=== PATIENT | male | born 1950 | race Caucasian/White ===

== ENCOUNTER 2023-03-23 14:09 | Outpatient (OUT) | payer MEDICARE, MEDICAID, SELFPAY ==
--- NOTE | 2023-03-23 14:35 | XR_ITS ---
The [address] [address] Patient Name: ALESSIO BURNS MRN: [id number] date: 1950 Sex: M Assigned Patient Location: LAB Current Patient Location: LAB Accession/Order Number: [id number] Exam Date: 03/23/2023 14:40 Report Date: 03/23/2023 16:11 At the request of: SHAIKH YARI Procedure: XR chest 2V EXAM: XR chest 2V HISTORY: ZHAO R06.09 ; technologist notes state shortness of breath with exertion and right-sided chest pain for 2 weeks. COMPARISON: 11/18/2021. TECHNIQUE: PA and lateral views of the chest performed. FINDINGS: Stable median sternotomy wires, mediastinal surgical clips, valve replacement and left atrial appendage clips. Mild convexity of the trachea to the right secondary to the aortic arch. Stable mild prominence of the cardiac silhouette. Stable mild atheromatous calcification at the aortic arch. Stable mild tortuous course of the descending thoracic aorta. There is stable mild to moderate elevation of the right hemidiaphragm. There are reticular and nodular infiltrates throughout both lung [place]. There is no pleural effusion or pulmonary vascular congestion. There is no pneumothorax. There is no acute osseous abnormality. XR/XR chest 2V IMPRESSION: There are reticular and nodular infiltrates throughout both lung [place]. Appropriate medical treatment and a follow-up chest radiograph to confirm complete resolution recommended. A CT examination of the chest would be recommended if clinical symptoms are discordant or if there is persistence on the follow-up chest radiograph. Electronically authenticated by: ESTHELA AMES Date: 03/23/2023 16:11
[2023-03-23 14:55] LABS: Basophils Absolute Auto 0.1 10^3/uL (0.0-0.1); Basophils Percent Auto 0.8 % (0.2-2.0); Eosinophils Absolute Auto 0.4 10^3/uL (0.0-0.7); Eosinophils Percent Auto 4.2 % (0.9-7.0); Hematocrit 41.2 % (42.0-54.0); Hemoglobin 13.5 g/dL (14.0-18.0); Immature Granulocytes Abs Auto 0.03 10^3/uL (0.00-0.03); Immature Granulocytes Pct Auto 0.3 % (0.0-0.5); Lymphocytes Absolute Auto 1.7 10^3/uL (1.2-3.8); Lymphocytes Percent Auto 18.9 % (20.5-60.0); Mean Corpuscular HGB Conc 32.8 g/dL (29.9-35.2); Mean Corpuscular Hemoglobin 29.9 pg (25.9-34.0); Mean Corpuscular Volume 91.4 fL (80.0-94.0); Mean Platelet Volume 9.2 fL (9.5-13.5); Monocytes Absolute Auto 1.2 10^3/uL (0.3-0.8); Monocytes Percent Auto 13.8 % (1.7-12.0); Neutrophils Absolute Auto 5.5 10^3/uL (1.4-6.5); Platelet Count 259 10^3/uL (150-450); Red Blood Count 4.51 10^6/uL (4.70-6.10); Red Cell Distribution Width 13.4 % (11.0-15.0); White Blood Count 8.9 10^3/uL (4.0-11.0)
[2023-03-23 15:15] LABS: Anion Gap 10.4; BUN Creatinine Ratio 13.3; Calcium 8.8 mg/dL (8.5-10.1); Carbon Dioxide 28.9 mmol/L (21.0-32.0); Chloride 105 mmol/L (98-107); Estimated GFR (African America >60 (>=60); Estimated GFR (Non-African Ame >60 (>=60); Glucose 102 mg/dL (74-106); Potassium 4.3 mmol/L (3.5-5.1); Sodium 140 mmol/L (136-145)
== END 2023-03-23 14:10 | disposition home or self-care (01) ==
LOC: LAB 14:15
PROVIDERS: PCP Internal Medicine; Visit Provider Internal Medicine
DX: R06.09 Other forms of dyspnea (principal)
CPT/HCPCS: 36415; 71046; 80048; 83880; 85025

== ENCOUNTER 2023-04-06 15:18 | Emergency (ER) | payer MEDICARE, MEDICAID, SELFPAY ==
[2023-04-06] VITALS (25 sets, daily range): BP systolic 112–135; BP diastolic 47–58; PULSE 51–60; RESP 14–27; TEMP 36.5; O2SAT 94–100; BMI 29.6
--- NOTE | 2023-04-06 15:33 | ECG_ITS ---
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
--- NOTE | 2023-04-06 15:33 | XR_ITS ---
The [address] [address] Patient Name: ALESSIO BURNS MRN: [id number] date: 1950 Sex: M Assigned Patient Location: ER Current Patient Location: ER Accession/Order Number: [id number] Exam Date: 04/06/2023 15:50 Report Date: 04/06/2023 16:10 At the request of: SABIHA METZ Procedure: XR chest 1V TITLE: XR chest 1V COMPARISON: None. CLINICAL HISTORY: SOB TECHNIQUE: One view. FINDINGS: There is a normal cardiac and mediastinal contour. Previous sternotomy. Stable elevated right hemidiaphragm. The pulmonary vascular pattern is normal. The lungs are clear and the pleural margins are sharp. There are no significant skeletal abnormalities. XR/XR chest 1V IMPRESSION: NO ACUTE RADIOGRAPHIC FINDINGS Electronically authenticated by: GILLIAN KEENE Date: 04/06/2023 16:10
--- NOTE | 2023-04-06 15:35 | ED_ITS ---
HPI - SOB/Dyspnea General Chief Complaint: Shortness of Breath/Dyspnea Stated Complaint: SHORTNESS OF BREATH Time Seen by Provider: 04/06/23 15:29 History of Present Illness HPI Narrative: 73-year-old male presents to the emergency department for shortness of breath. He's had it for two weeks. He's been coughing up a small amount of white to clear colored phlegm, no hemoptysis. He hasn't had a fever. He saw his PCP today who sent him here to be evaluated. He does not complain to me of chest pain. Exertion seems to make it worse. He states he is on a blood thinner but doesn't know which one. Related Data Allergies Allergy/AdvReac Type Severity Reaction Status Date / Time No Known Drug Allergies Allergy Verified 04/06/23 15:33 Review of Systems ROS Narrative A ten point review of systems is negative except as noted above. PFSH PFSH Social History Smoking status: Former smoker Exam Narrative Exam Narrative: Nurses note and vital signs reviewed and patient is not hypoxic. General: The patient appears in no apparent distress. Patient is resting comfortably on cart. Skin: Warm, dry, no pallor noted. There is no rash noted. Head: Normocephalic, atraumatic Eye: Normal conjunctiva, no drainage Ears, Nose, Mouth, and Throat: oral mucosa is moist. Nares patent. Cardiovascular: Regular Rate and Rhythm Respiratory: Patient is in no distress, no accessory muscle use, lungs show a few rhonchi Back: non-tender GI: soft and nontender Musculoskeletal: The patient has no evidence of calf tenderness, no pitting edema, symmetrical pulses noted bilaterally Neurological: A&O, normal speech Psychiatric: Cooperative Constitutional Vital Signs, click to edit/add: Last Vital Signs Temp 97.7 F 04/06/23 15:33 Pulse 53 L 04/06/23 17:30 Resp 21 04/06/23 17:30 BP 114/50 04/06/23 17:30 Pulse Ox 97 04/06/23 17:30 O2 Del Method Room Air 04/06/23 15:33 Course Vital Signs Vital signs: Vital Signs Pulse Rate 55 L 04/06/23 15:31 Respiratory Rate 17 04/06/23 15:31 Blood Pressure 135/52 04/06/23 15:31 Pulse Oximetry 99 04/06/23 15:31 Temperature 97.7 F 04/06/23 15:33 Pulse Rate 53 L 04/06/23 17:30 Respiratory Rate 21 04/06/23 17:30 Blood Pressure 114/50 04/06/23 17:30 Pulse Oximetry 97 04/06/23 17:30 Oxygen Delivery Method Room Air 04/06/23 15:33 MDM - SOB/Dyspnea MDM Narrative Medical decision making narrative: his workup including CT of the chest is negative and he is discharged home. He has multiple pulmonary nodules which are known and he has been diagnosed with cancer. No evidence of pneumonia or pneumothorax. Treatment diagnosis and follow-up were discussed with the patient. Differential Diagnosis Differential diagnosis: Likely acute exacerbation of chronic obstructive airways disease, congestive heart failure, community acquired pneumonia and pulmonary embolism Lab Data Attestation: I reviewed the patient's lab results. Labs: Lab Results 04/06/23 Range/Units 15:43 WBC 8.7 (4.0-11.0) 10^3/uL RBC 4.40 L (4.70-6.10) 10^6/uL Hgb 13.1 L (14.0-18.0) g/dL Hct 39.9 L (42.0-54.0) % MCV 90.7 (80.0-94.0) fL MCH 29.8 (25.9-34.0) pg MCHC 32.8 (29.9-35.2) g/dL RDW 13.6 (11.0-15.0) % Plt Count 256 (150-450) 10^3/uL MPV 9.2 L (9.5-13.5) fL Neut % (Auto) 64.1 (43.0-75.0) % Lymph % (Auto) 20.8 (20.5-60.0) % [place] % (Auto) 11.0 (1.7-12.0) % Eos % (Auto) 2.9 (0.9-7.0) % Baso % (Auto) 0.6 (0.2-2.0) % Neut # (Auto) 5.6 (1.4-6.5) 10^3/uL Lymph # (Auto) 1.8 (1.2-3.8) 10^3/uL [place] # (Auto) 1.0 H (0.3-0.8) 10^3/uL Eos # (Auto) 0.3 (0.0-0.7) 10^3/uL Baso # (Auto) 0.1 (0.0-0.1) 10^3/uL Abs Immat Gran (auto) 0.05 H (0.00-0.03) 10^3/uL Imm/Tot Granulo (auto) 0.6 H (0.0-0.5) % D-Dimer 1.05 H* (<=0.59) mg/L FEU Sodium 138 (136-145) mmol/L Potassium 3.9 (3.5-5.1) mmol/L Chloride 104 (98-107) mmol/L Carbon Dioxide 25.6 (21.0-32.0) mmol/L Anion Gap 12.3 BUN 13.0 (7.0-18.0) mg/dL Creatinine 1.21 (0.70-1.30) mg/dL Est GFR ( Amer) >60 (>=60) Est GFR (Non-Af Amer) 59 L (>=60) BUN/Creatinine Ratio 10.7 Glucose 110 H (74-106) mg/dL Calcium 8.5 (8.5-10.1) mg/dL Troponin I High Sens 17.7 (4.0-76.1) pg/mL Imaging Data CT scan - chest: Radiologist's impression: CTA chest shows known pulmonary nodules and known 4 cm descending aortic aneurysm. ECG Data Attestation: I personally reviewed and interpreted this ECG as follows: (EKG on my interpretation shows normal sinus rhythm with a rate of 53 and no acute changes.) Discharge Plan Discharge Chief Complaint: Shortness of Breath/Dyspnea Clinical Impression: Dyspnea Patient Disposition: Home, Self-Care Time of Disposition Decision: 18:44 Condition: Good Mode of Transportation: Private Vehicle Instructions: Dyspnea (ED) Stand Alone Forms: Portal Instructions Referrals: Shaikh Etienne MD [Primary Care Provider] - 1 week
[2023-04-06 16:16] LABS: Basophils Absolute Auto 0.1 10^3/uL (0.0-0.1); Basophils Percent Auto 0.6 % (0.2-2.0); Eosinophils Absolute Auto 0.3 10^3/uL (0.0-0.7); Eosinophils Percent Auto 2.9 % (0.9-7.0); Hematocrit 39.9 % (42.0-54.0); Hemoglobin 13.1 g/dL (14.0-18.0); Immature Granulocytes Abs Auto 0.05 10^3/uL (0.00-0.03); Immature Granulocytes Pct Auto 0.6 % (0.0-0.5); Lymphocytes Absolute Auto 1.8 10^3/uL (1.2-3.8); Lymphocytes Percent Auto 20.8 % (20.5-60.0); Mean Corpuscular HGB Conc 32.8 g/dL (29.9-35.2); Mean Corpuscular Hemoglobin 29.8 pg (25.9-34.0); Mean Corpuscular Volume 90.7 fL (80.0-94.0); Mean Platelet Volume 9.2 fL (9.5-13.5); Neutrophils Absolute Auto 5.6 10^3/uL (1.4-6.5); Neutrophils Percent Auto 64.1 % (43.0-75.0); Platelet Count 256 10^3/uL (150-450); Red Cell Distribution Width 13.6 % (11.0-15.0); White Blood Count 8.7 10^3/uL (4.0-11.0)
[2023-04-06 16:20] LABS: Anion Gap 12.3; BUN Creatinine Ratio 10.7; Calcium 8.5 mg/dL (8.5-10.1); Carbon Dioxide 25.6 mmol/L (21.0-32.0); Chloride 104 mmol/L (98-107); Estimated GFR (African America >60 (>=60); Estimated GFR (Non-African Ame 59 (>=60); Glucose 110 mg/dL (74-106); Potassium 3.9 mmol/L (3.5-5.1); Sodium 138 mmol/L (136-145)
[2023-04-06 16:31] LABS: Troponin I High Sensitivity 17.7 pg/mL (4.0-76.1)
[2023-04-06 16:41] LABS: D Dimer 1.05 mg/L FEU (<=0.59)
--- NOTE | 2023-04-06 16:42 | CT_ITS ---
[address] [address] Patient Name: ALESSIO BURNS MRN: [id number] date: 1950 Sex: M Assigned Patient Location: ER Current Patient Location: ER Accession/Order Number: [id number] Exam Date: 04/06/2023 17:55 Report Date: 04/06/2023 18:30 At the request of: SABIHA METZ Procedure: CT angio chest EXAM: CT angio chest HISTORY: sob, elevated dimer COMPARISON: None. TECHNIQUE: CT chest with intravenous contrast was performed with timing for the evaluation for pulmonary arteries. Multiplanar reformats were performed. MIP (maximum intensity projection) images or 3D post processing was performed. Dose reduction techniques were achieved by using automated exposure control and/or adjustment of mA and/or kV according to patient size and/or use of iterative reconstruction technique. FINDINGS: Lungs: There is bilateral centrilobular emphysema. No pneumothorax or effusion. There are multiple bilateral nodular opacities measuring up to 0.9 cm. Differential diagnosis includes inflammatory/infectious (bronchitis, aspiration pneumonia), primary or secondary neoplasm. PET/CT or 3 months follow-up is recommended for better evaluation. Airways: Normal. Mediastinum: No adenopathy. Aorta: Ascending aortic aneurysm measuring 4 cm on coronal view. Cardiac: Normal size. No pericardial effusion. Status post CABG. Pulmonary vasculature: Diagnostic opacification of pulmonary arteries without evidence of pulmonary embolus. Normal morphology. Bones: No acute bony abnormality. Axilla: No adenopathy. Thyroid gland: No abnormality demonstrated on provided imaging. Soft tissues: Unremarkable. Upper abdomen: Small hiatal hernia. Additional findings: None. CT/CT angio chest IMPRESSION:No evidence of acute pulmonary embolus. Multiple bilateral nodular opacities measuring up to 0.9 cm. Differential diagnosis includes inflammatory/infectious, primary or secondary neoplasm. PET/CT or 3 months follow-up is recommended for better evaluation. Ascending aortic aneurysm measuring 4 cm on coronal view. Small hiatal hernia. Electronically authenticated by: SHERRY TINEO Date: 04/06/2023 18:30
== END 2023-04-06 19:00 | disposition home or self-care (01) ==
PROVIDERS: Emergency Provider Emergency Medicine; PCP Internal Medicine
DX: R06.00 Dyspnea, unspecified (principal); R91.8 Other nonspecific abnormal finding of lung field; Z87.891 Personal history of nicotine dependence
CPT/HCPCS: 36415; 71045; 71275; 80048; 84484; 85025; 85378; 93005; 99285; Q9967

== ENCOUNTER 2023-08-02 14:16 | Outpatient (REF) | payer MEDICARE, MEDICAID, SELFPAY ==
[2023-08-04 09:09] LABS: H. pylori Stool Ag, EIA Negative (Negative)
== END 2023-08-02 14:17 | disposition home or self-care (01) ==
LOC: LAB 14:16
PROVIDERS: PCP Internal Medicine; Visit Provider Internal Medicine
DX: A04.8 Other specified bacterial intestinal infections (principal)
CPT/HCPCS: 87338

== ENCOUNTER 2023-10-02 14:13 | Outpatient (OUT) | payer MEDICARE, MEDICAID, SELFPAY ==
--- OUTSIDE RECORDS SUMMARY | 2023-10-02 14:21 | XMS_ITS | CCD ---
Author Name Unknown Address [address] [place] [address] Organization [facility] Care Team Providers Care P[facility] Sawyer Name Role Phone Shaikh Etienne MD Primary Care Provider Sydnie Ambrosio MD Unavailable MD Ivette Etienneikh Primary Care Provider DO Krzysztof Queen Attending Provider [phone] Shaik Etienne MDh Primary Care Provider Sydnie Ambrosio MD Unavailable Maliha Lentz DO [facility] Primary Care Unavailable MISC, DR CALLOWAY Attending Unavailable MISC, DR CALLOWAY Consulting Unavailable MISC, DR CALLOWAY Admitting Unavailable MOUKARBEL, DR OTOOLE Admitting Unavailable [facility] Unavailable MOUKARBEL, DR OTOOLE Attending Unavailable MOUKATAM, DR OTOOLE Consulting Unavailable [facility] Primary Care Unavailable MOUKARBEL, DR OTOOLE Attending Unavailable MOUKARBEL, DR OTOOLE Consulting Unavailable MOUKARBEL, DR OTOOLE Admitting Unavailable MOUKARBEL, SYDNIE Attending Unavailable MOUKARBJAI, SYDNIE Attending Unavailable KUN ORTA Attending Unavailable Sydnie Ambrosio MD Unavailable [phone] MD Girish Etienne Primary Care Provider MD Paramjit Spring Attending Provider [phone] Paramjit Spring Attending Unavailable Paramjit Spring Admitting Unavailable Ivette Etienneikh Primary Care Unavailable ABHYANKAR, JAYA Attending Unavailable IVETTE ETIENNEIKH Primary Care Unavailable [facility] Primary Care Unavailable ABHYANKAR, JAYA Referring Unavailable ABHYANKAR, JAYA Attending Unavailable [facility] Primary Care Unavailable [facility] Primary Care Unavailable ABHYANKAR, JAYA Attending Unavailable ABHYANKAR, JAYA Referring Unavailable [facility] Primary Care Unavailable [facility] Primary Care Unavailable ABHYANKAR, JAYA Attending Unavailable [facility] Primary Care Unavailable ABHYANKAR, JAYA Referring Unavailable [facility] Primary Care Unavailable ABHYANKAR, JAYA Attending Unavailable [facility] Primary Care Unavailable ABHYANKAR, JAYA Referring Unavailable [facility] Primary Care Unavailable ABHYANKAR, JAYA Referring Unavailable ABHYANKAR, JAYA Attending Unavailable [facility] Primary Care Unavailable ABHYANKAR, JAYA Referring Unavailable [facility] Primary Care Unavailable ABHYANKAR, JAYA Attending Unavailable ABHYANKAR, JAYA Referring Unavailable [facility] Care Unavailable ABHYANKAR, JAYA Referring Unavailable [facility] Primary Care Unavailable ABHYANKAR, JAYA Attending Unavailable [facility] Care Unavailable Tavo Hull Unavailable [facility] Provider Medications Current Medications Medication Drug Class(es) Dates Sig (Normalized) Sig (Original) albuterol 0.83 mg/ml inhalation solution (20 sources) beta2-Adrenergic Agonist Start: 04-18-2022 take 2.5 mg by inhalation every four hours Albuterol Sulfate Active 2.5 MG INHALATION Q4H April 18, 2022 12:00am Start: 04-18-2022 Albuterol Sulf ate Active 2 INH INHALATION Q4H April 18, 2022 12:00am Start: 04-18-2022 take 2.5 mg by inhal ation every four hours Albuterol Sulfate Active 2.5 MG INHALATION Q4H April 18, 2022 12:00am Start: 04-18-2022 Albuterol Sulf ate Active 2 INH INHALATION Q4H April 18, 2022 12:00am Start: 10-29-2021 take 1.25 mg by inha lation every six hours as needed albuterol (ACCUNEB) 1.25 mg/3 mL nebulizer solution Inhale 3 mL (1.25 mg total) every 6 (six) hours as needed. 0 10/29/2021 Active Start: 10-29-2021 Albuterol Sulf ate 1.25 mg/3 mL nebulizer solution Indications: Cancer of trachea, bronchus, and lung (HCC) , Panlobular emphysema (HCC) Use 1 Ampule via nebulizer every 6 hours as needed for wheezing/shortness of breath. 120 Ampule 2 10/29/2021 Active take 2 puff(s) by in halation every four hours as needed albuterol (PROVENTIL HFA;VENTOLIN HFA) 90 mcg/actuation inhaler Inhale 2 puffs every 4 (four) hours as needed. 0 Active Albuterol Sulfat e 2.5 MG/0.5ML as directed Inhalation Active take 2 puff(s) by mo uth every four to six hours as needed for wheezing albuterol HFA (PROVENTIL HFA, VENTOLIN HFA) 90 mcg/actuation inhaler albuterol sulfate HFA 90 mcg/actuation aerosol inhaler INHALE 2 PUFFS BY MOUTH EVERY 4 TO 6 HOURS NEEDED for shortness of breath and FOR WHEEZING 0 Active Comment on above: albuterol sulfate HF A 90 mcg/actuation aerosol inhaler INHALE 2 PUFFS BY MOUTH EVERY 4 TO 6 HOURS NEEDED for shortness of breath and FOR WHEEZING Use 1 Ampule via neb ulizer every 6 hours as needed for wheezing/shortness of breath. amLODIPine 10 mg oral tablet (20 sources) Dihydropyridine Calcium Channel Dia Start: take 10 mg by mouth once daily Amlodipine Active 10 MG PO Daily April 18, 2022 12:00am Start: 04-18-2022 take 10 mg by mouth once daily Amlodipine Active 10 MG PO Daily April 18, 2022 12:00am Start: 08-12-2021 take 1 tablet by lindsey once daily amLODIPine (NORVASC) 10 mg tablet Take 10 mg by mouth once daily. 0 08/12/2021 Active Comment on above: Take 10 mg by mouth once daily. Aspir-81 (1 source) Aspir-81 Active aspirin 81 mg delayed release oral tablet (20 sources) Platelet Aggregation Inhibitor, Nonsteroidal Anti-inflammatory Drug Start: 04-22-2021 take 81 mg by mouth once daily Aspirin Active 81 MG PO Daily April 22, 2021 12:00am aspirin, enteric coated (ASPIRIN, ENTERIC COATED) 81 mg EC tablet q 24 HR. 0 Active Comment on above: q 24 HR. atorvastatin 40 mg oral tablet (20 sources) HMG-CoA Reductase Inhibitor Start: take 1 tablet by mouth once daily atorvastatin (LIPITOR) 40 mg tablet Take 1 tablet (40 mg total) by mouth nightly. 0 05/11/2022 Active Start: 04-18-2022 take 40 mg by mouth once daily Atorvastatin Active 40 MG PO Daily April 18, 2022 12:00am take 1 tablet by lindsey th every twenty-four hours Atorvastatin Calcium 40 MG 1 tablet Orally Once a day Active Comment on above: atorvastatin 40 mg t ablet TAKE 1 TABLET BY MOUTH AT BEDTIME bismuth subsalicylate 262 mg chewable tablet (1 source) Bismuth Start: Bismuth 262 MG 2 tablets FOUR TIMES A DAY Orally Four times a day for 14 days Jun, Active clarithromycin 500 mg oral tablet (1 source) Macrolide Antimicrobial Start: take 1 tablet by mouth every twelve hours Clarithromycin 500 MG 1 tablet Orally twice a day for 14 days Jun, Active enteric contrast (will be provided with radiology test) (1 source) Start: End: enteric contrast (will be provided with radiology test) Indications: Malignant neoplasm of unspecified part of unspecified bronchus or lung (HCC) For CT CHESTABD/PEL W IVCON Routine order Administer, As Directed One Time Only, via Oral, Rectal, both Oral and Rectal, Enteric Tube, Stoma or Indwelling Catheter, Enteric Contrast as designated per enteric contrast guidelines 1 Each 0 09/19/2022 09/20/2022 Active Comment on above: For CT CHESTABD/PEL W IVCON Routine order Administer, As Directed One Time Only, via Oral, Rectal, both Oral and Rectal, Enteric Tube, Stoma or Indwelling Catheter, Enteric Contrast as designated per enteric contrast guidelines Fluticasone-Umeclidin -Vilanter (1 source) Start: Fluticasone-Umeclidi n-Vilanter (Trelegy Ellipta) 200-62.5-25 mcg blister with device Active 1 INH INHALATION Daily May 30, 2023 12:00am fluticasone-umeclidin -vilanter (TRELEGY ELLIPTA) 200-62.5-25 mcg blister with device (1 source) Start: take 1 puff(s) by inhalation once daily fluticasone-umeclidi n-vilanter (TRELEGY ELLIPTA) 200-62.5-25 mcg blister with device Indications: Chronic obstructive pulmonary disease, unspecified COPD type ([facility]-HCC) Inhale 1 puff once daily. 60 each 11 08/17/2023 Active furosemide 40 mg oral tablet (20 sources) Loop Diuretic Start: take 40 mg by mouth once daily Furosemide Active 40 MG PO Daily April 22, 2021 12:00am Comment on above: furosemide 40 mg tab let TAKE 1 TABLET BY MOUTH DAILY iv contrast (will be provided with radiology test) (6 sources) Start: End: iv contrast (will be provided with radiology test) CT Chest W -Inject, intravenously, once for 1 dose.No IV access, insert saline lock prior to the beginning of sedation, infusion, injection of imaging exam. Discontinue saline lock post exam. If Pt. has a central line or IVAD, may access for administration according to line specific nursing protocol. Once exam is complete flush line and de-access according to line specific nursing protocol in the CT contrast administration guidelines link. 1 Each 0 08/11/2023 08/12/2023 Active Start: 09-19-2022 End: 09-20-2022 iv contrast (will be provide d with radiology test) Indications: Malignant neoplasm of unspecified part of unspecified bronchus or lung (HCC) CT Chest ABD/PEL-Inject, intravenously, once for 1 dose.No IV access, insert saline lock prior to the beginning of sedation, infusion, injection of imaging exam. Discontinue saline lock post exam. If Pt. has a central line or IVAD, may access for administration according to line specific nursing protocol. Once exam is complete flush line and de-access according to line specific nursing protocol in the CT contrast administration guidelines link. 1 Each 0 09/19/2022 09/20/2022 Active Start: 07-21-2022 End: 07-22-2022 iv contrast (will be provide d with radiology test) Indications: Cancer of trachea, bronchus, and lung (HCC) CT Chest W -Inject, intravenously, once for 1 dose.No IV access, insert saline lock prior to the beginning of sedation, infusion, injection of imaging exam. Discontinue saline lock post exam. If Pt. has a central line or IVAD, may access for administration according to line specific nursing protocol. Once exam is complete flush line and de-access according to line specific nursing protocol in the CT contrast administration guidelines link. 1 Each 0 07/21/2022 07/22/2022 Start: 04-03-2022 End: 04-04-2022 iv contrast (will be provide d with radiology test) Indications: Malignant neoplasm of unspecified part of unspecified bronchus or lung (HCC) CT Chest W -Inject, intravenously, once for 1 dose.No IV access, insert saline lock prior to the beginning of sedation, infusion, injection of imaging exam. Discontinue saline lock post exam. If Pt. has a central line or IVAD, may access for administration according to line specific nursing protocol. Once exam is complete flush line and de-access according to line specific nursing protocol in the CT contrast administration guidelines link. 1 Each 0 04/03/2022 04/04/2022 Active Start: 03-02-2022 End: 03-03-2022 iv contrast (will be provide d with radiology test) Indications: Malignant neoplasm of unspecified part of unspecified bronchus or lung (HCC) , Cancer of trachea, bronchus, and lung (HCC) , Panlobular emphysema (HCC) CT Chest W -Inject, intravenously, once for 1 dose.No IV access, insert saline lock prior to the beginning of sedation, infusion, injection of imaging exam. Discontinue saline lock post exam. If Pt. has a central line or IVAD, may access for administration according to line specific nursing protocol. Once exam is complete flush line and de-access according to line specific nursing protocol in the CT contrast administration guidelines link. 1 Each 0 03/02/2022 03/03/2022 Active Comment on above: CT Chest W -Inject, intravenously, once for 1 dose.No IV access, insert saline lock prior to the beginning of sedation, infusion, injection of imaging exam. Discontinue saline lock post exam. If Pt. has a central line or IVAD, may access for administration according to line specific nursing protocol. Once exam is complete flush line and de-access according to line specific nursing protocol in the CT contrast administration guidelines link. CT Chest ABD/PEL-Inj ect, intravenously, once for 1 dose.No IV access, insert saline lock prior to the beginning of sedation, infusion, injection of imaging exam. Discontinue saline lock post exam. If Pt. has a central line or IVAD, may access for administration according to line specific nursing protocol. Once exam is complete flush line and de-access according to line specific nursing protocol in the CT contrast administration guidelines link. 24 hr metoprolol succinate 100 mg extended release oral tablet (20 sources) beta-Adrenergic Dia Start: take 100 mg by mouth once daily Metoprolol Succinate Active 100 MG PO Daily April 22, 2021 12:00am take 1 tablet by lindsey th every twenty-four hours in the evening metoprolol succinate XL (TOPROL XL) 50 m g 24 hr tablet Take 1 tablet (50 mg total) by mouth in the evening. 0 Active take 1 capsule by mouth once pia ly Metoprolol Succinate 100 MG 1 capsule Orally Once a day Active take 1 tablet by mouth once bruna y metoprolol succinate ER (TOPROL XL) 50 mg 24 hr tablet metoprolol succinate ER 50 mg tablet,extended release 24 hr TAKE 1 TABLET BY MOUTH EVERY DAY 0 Active Comment on above: metoprolol succinate ER 50 mg tablet,extended release 24 hr TAKE 1 TABLET BY MOUTH EVERY DAY Take 100 mg by mouth once daily. nitroglycerin 0.4 mg sublingual tablet (20 sources) Nitrate Vasodilator Start: 04-18-2022 Nitroglycerin Active 0.4 MG SUBLINGUAL EVERY 5 MINUTES April 18, 2022 12:00am Start: 04-18-2022 Nitroglycerin Active 0.4 MG SUBLINGUAL EVERY 5 MINUTES April 18, 2022 12:00am nitroglycerin (N ITROSTAT) 0.4 MG SL tablet DISSOLVE 1 TABLET UNDER THE TONGUE NEEDED FOR CHEST PAIN- MAY REPEAT EVERY 5 MINUTES IF NEEDED ( MAX 3 DOSES.- IF NO RELIEF CALL 911) 0 Active Comment on above: nitroglycerin 0.4 mg sublingual tablet DISSOLVE 1 TABLET UNDER THE TONGUE NEEDED FOR CHEST PAIN- MAY REPEAT EVERY 5 MINUTES IF NEEDED ( MAX 3 DOSES.- IF NO RELIEF CALL 911) omeprazole 40 mg delayed release oral capsule (5 sources) Proton Pump Inhibitor Start: 07-25-2023 omeprazole (PriLOSEC) 40 mg capsule Take 1 capsule (40 mg total) by mouth. 0 07/25/2023 Active Start: 05-30-2023 take 40 mg by mouth once daily Omeprazole Active 40 MG PO Daily May 30, 2023 12:00am Comment on above: TAKE 1 CAPSULE BY [facility] TWICE DAILY (30 MINUTES BEFORE morning meal & IN THE EVENING) microencapsulated potassium chloride 10 meq extended release oral tablet (20 sources) Start: take 10 mEq by mouth once daily Potassium Chloride Active 10 MEQ PO Daily April 18, 2022 12:00am Start: 04-18-2022 take 10 mEq by mouth once bruna y Potassium Chloride Active 10 MEQ PO Daily April 18, 2022 12:00am Start: 10-25-2021 take 1 tablet by lindsey th in the morning potassium chloride (KLOR-CON M 20) 20 MEQ CR tablet Take 1 tablet (20 mEq total) by mouth in the morning. 0 10/25/2021 Active Start: 10-25-2021 potassium chlo ride ER (K-DUR, KLOR-CON) 20 mEq tablet Take 10 mEq by mouth once daily. 0 10/25/2021 Active Potassium Chlori de Active Comment on above: Take 20 mEq by mouth once daily. Take 10 mEq by mouth once daily. sacubitril 97 mg / valsartan 103 mg oral tablet (20 sources) Angiotensin 2 Receptor Dia Start: 04-22-2021 take 1 tablet by mouth once daily Sacubitril-Valsa rtan (Entresto) 97-103 mg tablet Active 1 TAB PO Daily April 22, 2021 12:00am take 1 tablet by mouth at bedtim e sacubitriL-valsartan (ENTRESTO) 97-103 mg tablet Take 1 tablet by mouth in the morning and at bedtime. 0 Active take 1 tablet by lindsey th every twelve hours Entresto 97-103 MG 1 tablet Orally Twice a day Active Comment on above: Entresto 97 mg-103 m g tablet TAKE 1 TABLET BY MOUTH TWICE DAILY sildenafil 25 mg oral tablet (20 sources) Phosphodiesterase 5 Inhibitor Start: 2 take 25 mg by mouth once daily Sildenafil Active 25 MG PO Daily April 18, 2022 12:00am Start: 04-18-2022 take 25 mg by mouth once daily Sildenafil Active 25 MG PO Daily April 18, 2022 12:00am sildenafiL (VIAG RA) 25 mg tablet TAKE 1 TABLET BY MOUTH 30 MINUTES BEFORE sexual activity 0 Active Comment on above: sildenafil 25 mg tab let TAKE 1 TABLET BY MOUTH 30 MINUTES BEFORE sexual activity tetracycline hydrochloride 500 mg oral capsule (1 source) Tetracycline-class Antimicrobial Start: 06-05-20 Tetracycline HCl 500 MG 1 CAPSULE FOUR TIMES A DAY Orally 4 TIMES A DAY for 14 days Jun, Active traZODone hydrochloride 100 mg oral tablet (20 sources) Serotonin Reuptake Inhibitor Start: 03-14-20 End: 03-18-20 take 1 tablet by mouth once daily traZODone (DESYREL) 100 mg tablet Take 1 tablet by mouth once daily for 15 days. 15 tablet 0 03/03/2023 03/18/2023 Active Start: 04-22-2021 take 100 mg by mouth once bruna y Trazodone Active 100 MG PO Daily April 22, 2021 12:00am Start: 01-18-2021 End: 03-31-2022 take 1 tablet by mouth once daily traZODone (DESYREL) 50 mg tablet Take 50 mg by mouth once daily. 0 01/18/2021 03/31/2022 Discontinued (Changing Therapy/Dosage Form) Comment on above: Take 50 mg by mouth once daily. Take 100 mg by mouth once daily. Take 1 tablet by lindsey th once daily for 15 days. trelegy ellipta 200-62.5-25 mcg/act aerosol powder breath activated (1 source) take 1 puff(s) by inhalation once daily Trelegy Ellipta 200-62.5-25 MCG/ACT 1 puff Inhalation Once a day Active Completed/Discontinued Medications Medication Drug Class(es) Dates Sig (Normalized) Sig (Original) acetaminophen 325 mg / oxyCODONE hydrochloride 5 mg oral tablet (16 sources) Opioid Agonist Start: 03-29-2022 take 1 tablet by mouth every twelve hours as needed for pain oxyCODONE-acetamin ophen (PERCOCET) 5-325 mg tablet TAKE 1 TABLET BY MOUTH EVERY 12 HOURS NEEDED FOR PAIN 0 03/29/2022 Active Comment on above: TAKE 1 TABLET BY LINDSEY TH EVERY 12 HOURS NEEDED FOR PAIN amitriptyline hydrochloride 25 mg oral tablet (3 sources) Tricyclic Antidepressant Start: 06-28-2023 take 1 tablet by mouth once daily at bedtime amitriptyline (ELAVIL) 25 mg tablet Take 25 mg by mouth daily at bedtime. 0 06/28/2023 Active Start: 05-30-2023 take 25 mg by mouth once daily Amitriptyline Active 25 MG PO Daily May 30, 2023 12:00am Comment on above: Take 25 mg by mouth daily at bedtime. 120 actuat budesonide 0.16 mg/actuat / formoterol fumarate 0.0045 mg/actuat metered dose inhaler (20 sources) Corticosteroid, beta2-Adrenergic Agonist Start: 1 End: 3 take 1 puff(s) by inhalation twice daily Budesonide-Formoterol (Symbicort) 160-4.5 mcg/actuation HFA aerosol inhaler Discontinued 2 PUFF INHALATION Twice daily April 22, 2021 12:00am May 30, 2023 12:44pm take 2 puff(s) by mouth twice da marco budesonide-formoterol (SYMBICORT) 160-4.5 mcg/actuation inhaler Symbicort 160 mcg-4.5 mcg/actuation HFA aerosol inhaler INHALE 2 PUFFS BY MOUTH TWICE DAILY 0 Active Comment on above: Symbicort 160 mcg-4. 5 mcg/actuation HFA aerosol inhaler INHALE 2 PUFFS BY MOUTH TWICE DAILY busPIRone hydrochloride 15 mg oral tablet (20 sources) Start: 1 take 1 tablet by mouth three times daily busPIRone (BUSPAR) 15 mg tablet Take 15 mg by mouth three times daily. 0 05/28/2021 Active take 1 tablet by lindsey th every twelve hours busPIRone HCl 15 MG 1 tablet Orally Twic e a day Active Comment on above: Take 15 mg by mouth three times daily. clopidogrel 75 mg oral tablet (20 sources) P2Y12 Platelet Inhibitor Start: End: take 1 tablet by mouth once daily clopidogrel (PLAVIX) 75 mg tablet Take 1 tablet by mouth once daily for 15 days. 15 tablet 0 03/03/2023 Active Comment on above: clopidogrel 75 mg ta blet TAKE 1 TABLET BY MOUTH ONCE DAILY Take 1 tablet by lindsey once daily for 15 days. levoFLOXacin 750 mg oral tablet (20 sources) Quinolone Antimicrobial Start: take 1 tablet by mouth once daily levoFLOXacin (LEVAQUIN) 750 mg tablet Take 750 mg by mouth once daily. 0 10/25/2021 Active Comment on above: Take 750 mg by mouth once daily. magnesium citrate 58.2 mg/ml oral solution (2 sources) Start: End: take 296 mL by mouth once magnesium citrate solution Take 296 mL by mouth one time only for 1 dose. 296 mL 0 08/11/2023 08/11/2023 Comment on above: Take 296 mL by mouth one time only for 1 dose. metroNIDAZOLE 250 mg oral tablet (3 sources) Nitroimidazole Antimicrobial Start: take 1 tablet by mouth four times daily metroNIDAZOLE (FLAGYL) 250 mg tablet Take 250 mg by mouth four times daily. 0 06/16/2023 Active Comment on above: Take 250 mg by mouth four times daily. Nebulizer and Compressor For Neb (20 sources) Start: Nebulizer and Compressor For Neb Indications: Cancer of trachea, bronchus, and lung (HCC) , Panlobular emphysema (HCC) 1 Each three times daily as needed. 1 Each 0 10/29/2021 Active Comment on above: 1 Each three times d aily as needed. penicillin v potassium 500 mg oral tablet (16 sources) Start: take 1 tablet by mouth four times daily penicillin V potassium (V-CILLIN, VEETIDS) 500 mg tablet Take 500 mg by mouth four times daily. 0 03/29/2022 Active Comment on above: Take 500 mg by mouth four times daily. predniSONE 20 mg oral tablet (20 sources) Start: 02-21-2 022 take 2 tablets by mouth once daily at mealtime predniSONE (DELTASONE) 20 mg tablet Take 40 mg by mouth daily with food. 0 10/25/2021 Active Comment on above: Take 40 mg by mouth daily with food. spironolactone 25 mg oral tablet (9 sources) Aldosterone Antagonist Start: 022 spironolactone (ALDACTONE) 25 mg tablet Start: 04-18-2022 take 25 mg by mouth once daily Spironolactone Active 25 MG PO Daily April 18, 2022 12:00am Spironolactone 2 5 MG 1 tablet Orally Active TRELEGY ELLIPTA 200-62.5-25 mcg inhalation powder (10 sources) Start: 09-09-2022 take 1 puff(s) by mouth once daily TRELEGY ELLIPTA 200-62.5-25 mcg inhalation powder INHALE 1 PUFF BY MOUTH DAILY 0 09/09/2022 Active Comment on above: INHALE 1 PUFF BY LINDSEY TH DAILY Umeclidinium (2 sources) Anticholinergic Start: 04-18-2022 End: 05-30-2023 take 62.5 ug by inhalation once daily Umeclidinium (Incruse Ellipta) 62.5 mcg/actuation blister with device Discontinued 62.5 MCG INHALATION Daily April 18, 2022 12:00am May 30, 2023 12:44pm Start: 04-18-2022 take 62.5 ug by inha lation once daily Umeclidinium (Incruse Ellipta) 62.5 mcg/actuation blister with device Active 62.5 MCG INHALATION Daily April 18, 2022 12:00am zolpidem tartrate 10 mg oral tablet (6 sources) gamma-Aminobutyric Acid-ergic Agonist Start: 12-07-2022 take 10 mg by mouth once daily zolpidem (AMBIEN) 10 mg Take 10 mg by mouth once daily. 0 12/07/2022 Active Comment on above: Take 10 mg by mouth once daily. Problems Active Problems Problem Classification Problem Date Documented Da te Episodic/Chronic Aortic; peripheral; and visceral artery aneurysms (20 sources) Thoracic aortic aneurysm without rupture; Translations: [Thoracic aortic aneurysm, without rupture] Onset: Chronic Cancer of bronchus; lung (3 sources) Malignant neoplasm of unspecified part of unspecified bronchus or lung; Translations: [Malignant neoplasm of overlapping sites of right bronchus and lung] Onset: 2 Chronic Cancer; other respiratory and intrathoracic (20 sources) Malignant neoplasm of lower respiratory tract; 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] Onset: 2 Chronic Chronic obstructive pulmonary disease and bronchiectasis (20 sources) Chronic obstructive lung disease; Translations: [Chronic obstructive pulmonary disease, unspecified] Onset: 0 Resolved: 2 Chronic Congestive heart failure; nonhypertensive (20 sources) Chronic diastolic heart failure; Translations: [Chronic diastolic (congestive) heart failure] Onset: 0 Chronic Coronary atherosclerosis and other heart disease (20 sources) Coronary arteriosclerosis; Translations: [Atherosclerotic heart disease of [place] coronary artery without angina pectoris] Onset: 0 Chronic Disorders of lipid metabolism (20 sources) Hyperlipidemia; Translations: [Hyperlipidemia, unspecified] Onset: 2 Chronic Essential hypertension (20 sources) Hypertensive disorder; Translations: [Essential (primary) hypertension] Onset: 2 Chronic Heart valve disorders (20 sources) Aortic valve stenosis; Translations: [Nonrheumatic aortic (valve) stenosis] Onset: 0 Chronic Immunizations and screening for infectious disease (1 source) Positive measurement finding; Translations: [Nonspecific reaction to tuberculin skin test without active tuberculosis] Episodic Intestinal infection (1 source) Other specified bacterial intestinal infections Episodic Mood disorders (20 sources) Depressive disorder; Translations: [Depression, unspecified depression type] Onset: 2 Chronic Occlusion or stenosis of precerebral arteries (20 sources) Carotid artery stenosis; Translations: [Occlusion and stenosis of unspecified carotid artery] Onset: 0 Chronic Other and ill-defined heart disease (2 sources) Intracardiac thrombosis, not elsewhere classified; Translations: [Intracardiac thrombosis, not elsewhere classified] Onset: 3 Chronic Other and ill-defined heart disease (1 source) Left ventricular thrombus; Translations: [Intracardiac thrombosis, not elsewhere classified] Onset: 0 08-11-2022 Chronic Other and unspecified benign neoplasm (3 sources) History of polyp of colon; Translations: [Personal history of colonic polyps] 04-18-2022 Episodic Other and unspecified benign neoplasm (1 source) Personal history of colonic polyps; Translations: [Personal history of colonic polyps] 04-18-2022 Episodic Other gastrointestinal disorders (2 sources) Stool DNA-based colorectal cancer screening positive; Translations: [Other fecal abnormalities] 04-22-2021 Episodic Other liver diseases (3 sources) Liver mass; Translations: [Hepatomegaly, not elsewhere classified] Episodic Other screening for suspected conditions (not mental disorders or infectious disease) (3 sources) Imaging of gastrointestinal tract abnormal; Translations: [Abnormal findings on diagnostic imaging of other parts of digestive tract] Onset: 3 05-05-2023 Episodic Other skin disorders (1 source) Mass of body structure; Translations: [Granulomatous disorder of the skin and subcutaneous tissue, unspecified] Episodic Substance-related disorders (20 sources) Smoker; Translations: [Nicotine dependence, unspecified, uncomplicated] Onset: 2 Chronic Unclassified (1 source) THORAC AORTC ANEURYSM W/O RUPTR UNS; Translations: [THORAC AORTC ANEURYSM W/O RUPTR UNS] Onset: 3 Unclassified (1 source) Thoracic aortic aneurysm, without rupture, unspecified; Translations: [Thoracic aortic aneurysm, without rupture, unspecified] Onset: 2 Unclassified (1 source) Aneurysm of the ascending aorta, without rupture; Translations: [Aneurysm of the ascending aorta, without rupture] Onset: 2 Past or Other Problems Problem Classification Problem Date Documented Da te Episodic/Chronic Coronary atherosclerosis and other heart disease (2 sources) Presence of aortocoronary bypass graft; Translations: [Presence of aortocoronary bypass graft] Onset: 06-20-2022 Episodic Other lower respiratory disease (8 sources) Lung mass; Translations: [Other nonspecific abnormal finding of lung field] Onset: 06-17-2020 Resolved: 08-18-2022 Episodic Other lower respiratory disease (18 sources) Multiple nodules of lung; Translations: [Other nonspecific abnormal finding of lung field] Onset: 01-05-2022 Episodic Other lower respiratory disease (1 source) Other nonspecific abnormal finding of lung field; Translations: [Lung nodules] Onset: 07-21-2022 Episodic Other lower respiratory disease (1 source) Dyspnea on exertion; Translations: [Other forms of dyspnea] Onset: 08-18-2022 08-18-2022 Episodic Residual codes; unclassified (1 source) Insomnia; Translations: [Insomnia, unspecified] Onset: 07-07-2020 08-11-2022 Episodic Unclassified (1 source) Thoracic aortic aneurysm, without rupture, unspecified; Translations: [Thoracic aortic aneurysm, without rupture, unspecified] Onset: 01-02-2023 Unclassified (1 source) Aneurysm of the ascending aorta, without rupture; Translations: [Aneurysm of the ascending aorta, without rupture] Onset: 06-20-2022 Results Test Name Value Interpretation Reference Range [facility] [place] [facility] Visit (SP) Office (HEMASA) ALESSIO BURNS ([id number]) 1950 [address] [facility] Date Time Provider Department 08/11/23 2:30 PM JAYA BAI During your visit today, we recorded the following information about you: Temperature Pulse Respiration Blood pressure 97.4 degrees 59/minute 16/minute 148/60 Weight 87.9 kg Jaya Bai MD 08/11/2023 10:23 PM Signed NAME: Alessio Burns CLINIC NO.: [id number] DATE OF SERVICE: August 11, 2023 (Zac) Some elements in this clinic note that are critical to medical decision making have been carefully reviewed and included from a prior clinic note dated: May 05, 2023 (Zac) Referring Provider: Dr. 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 He actually presented with an acute myocardial infarction and had to undergo CABG and aortic valve repair emergently in June 08, 2020. Subsequent work-up demonstrated malignancy with no evidence of metastatic disease and he underwent resection in July 2020 after he had recovered from his cardiac surgery. He was not a candidate for adjuvant therapy given his almost 6-month gap between resection and presentation to me. He remains at high risk because of tobacco use. Restaging is non-specific for recurrence of lung cancer but short interval CT's found a new liver lesion which then persisted through December 2021. He saw Dr. Mota for resection 01/10/2022 - benign findings of ciliated foregut cyst. Colonoscopy. Done for + Cologuard was negative. Dyspnea wheezing - uses a nebulizer but is still smoking. New bilateral lung nodules - could be infectious / inflammatory however have continued to grow on serial CT scans. While these are highly suspicious, I suspect that they are too small to attempt biopsy which have confirmed with Dr. Carter. Will obtain PET scanning and then continue serial CT evaluation. Will consider thoracic surgery referral for biopsy as suspicion increases. Additional changes on CT January 04, 2023 with some resolution but some with growth. February 2023 repeat PET/CT shows progression of multiple pulmonary nodules with one nodule in the left upper lobe measuring 1.7 x 0.9 cm subpleural previously 0.8 x 0.7 cm FDG avidity with max SUV of 2.8. He also has a 1.0 x 0.8 cm posterior right lower lobe nodule that was previously 0.8 x 0.7 cm max SUV of 1.8. Since SUV measurements were stillfairly low, I obtained a repeat PET/CT 2 months later in April 2023 that showed improvement of all pulmonary nodules. However, there was some uptake in the distal stomach/proximal duodenum which will need further evaluation. PLAN: Trial of magnesium citrate to clear out. Triage to call Monday. If no success, will order CT A/P. Labs and CT Chest in 3 months. RTC 1 week after labs and scan. - HPI: Case History: 08/04/2023 - PET CT: No evidence of focal uptake to suggest FDG avid neoplastic process in the head/neck, abdomen/pelvis, or extremities/skeleton . Chest: Slight improvement in left upper lobe lung nodule. Other nodules below PET resolution stable. Follow-up with CT advised. 05/30/2023 - [place] [place] Duodenum: Mild bulbar duodenitis, otherwise normal. Stomach: Mild hemorrhagic gastritis, most pronounced in the antrum and distal body. Biopsies obtained, bottle 1-rule out H. Pylori. Otherwise unremarkable. Esophagus: Diaphragmatic hiatus was 43 cm from incisors and GE junction was at 41 cm from incisors. Squamocolumnar junction was at 41 cm from incisors. Mucosa appeared normal. 04/30/2023 - PET CT: Head and Neck: No evidence of FDG avid neoplastic process. Chest: Improvement of the bilateral pulmonary nodules, as described. Findings may be secondary to improving inflammatory/infecti ous process versus therapy response. No new/worsening lesions. Abdomen and pelvis: Persistent uptake at the distal stomach/proximal duodenum may be secondary to an underlying inflammatory process, although neoplastic etiology needs to be excluded. Musculoskeletal: No neoplastic hypermetabolic lesions. 02/21/2023 - PET/CT: Interval increase in size and number of innumerable bilateral pulmonary nodules some of which demonstrate borderline FDG activity. Findings are most compatible with metastatic disease. 09/30/2022 - PET CT: Multiple foci of uptake most active in MOOKIE. Concerning for metastatic disease. 07/14/2022 - CT Chest: Development of innumerable pulmonary nodules - infectous / inflammatory vs neoplastic. All below PET range (7mm and les (more content not included)... Normal [facility] 08-11-2023 CNPN Telephone (HEMTSA) ALESSIO BURNS ([id number]) 1950 [address] [place]* Date Time Provider Department 08/11/23 ARABELLA STEELE During your visit today, we recorded the following information about you: Arabella Steele RN 08/11/2023 3:25 PM Signed Call received from Chiara @[employer] to inform that Mag citrate has been a backordered item for a while and not available. Would you like to order something else? FYI we do have 2 bottles here but pharmacy closes at 4 and patient lives in [place] JERONIMO Guevara Vivek, MD 08/11/2023 4:35 PM Signed Plenty of other options - dulcolax, miralax combo. Arabella Steele RN 08/11/2023 4:40 PM Signed Please refer to following encounter for details and follow up Arabella Steele RN Allergies As of Date: 08/11/2023 (No Known Allergies) Date Reviewed: 08/11/2023 Reviewed by: Prachi Stephens Ma - Fully Assessed Reason for Visit: Orders [681] Prescriptions as of 08/11/2023 - omeprazole (PRILOSEC) 40 mg capsule TAKE 1 CAPSULE BY MOUTH TWICE DAILY (30 MINUTES BEFORE morning meal AND IN THE EVENING) - amitriptyline (ELAVIL) 25 mg tablet Take 25 mg by mouth daily at bedtime. - metroNIDAZOLE (FLAGYL) 250 mg tablet Take 250 mg by mouth four times daily. - iv contrast (will be provided with radiology test) CT Chest W -Inject, intravenously, once for 1 dose.No IV access, insert saline lock prior to the beginning of sedation, infusion, injection of imaging exam. Discontinue saline lock post exam. If Pt. has a central line or IVAD, may access for administration according to line specific nursing protocol. Once exam is complete flush line and de-access according to line specific nursing protocol in the CT contrast administration guidelines link. - magnesium citrate solution Take 296 mL by mouth one time only for 1 dose. - clopidogrel (PLAVIX) 75 mg tablet Take 1 tablet by mouth once daily for 15 days. - spironolactone (ALDACTONE) 25 mg tablet - zolpidem (AMBIEN) 10 mg Take 10 mg by mouth once daily. - TRELEGY ELLIPTA 200-62.5-25 mcg inhalation powder INHALE 1 PUFF BY MOUTH DAILY - penicillin V potassium (V-CILLIN, VEETIDS) 500 mg tablet Take 500 mg by mouth four times daily. - oxyCODONE-acetaminop hen (PERCOCET) 5-325 mg tablet TAKE 1 TABLET BY MOUTH EVERY 12 HOURS NEEDED FOR PAIN - potassium chloride ER (K-DUR, KLOR-CON) 20 mEq tablet Take 10 mEq by mouth once daily. - levoFLOXacin (LEVAQUIN) 750 mg tablet Take 750 mg by mouth once daily. - predniSONE (DELTASONE) 20 mg tablet Take 40 mg by mouth daily with food. - amLODIPine (NORVASC) 10 mg tablet Take 10 mg by mouth once daily. - Nebulizer and Compressor For Neb 1 Each three times daily as needed. - Albuterol Sulfate 1.25 mg/3 mL nebulizer solution Use 1 Ampule via nebulizer every 6 hours as needed for wheezing/shortness of breath. - sildenafil (VIAGRA) 25 mg tablet sildenafil 25 mg tablet TAKE 1 TABLET BY MOUTH 30 MINUTES BEFORE sexual activity - busPIRone (BUSPAR) 15 mg tablet Take 15 mg by mouth three times daily. - budesonide-formotero l (SYMBICORT) 160-4.5 mcg/actuation inhaler Symbicort 160 mcg-4.5 mcg/actuation HFA aerosol inhaler INHALE 2 PUFFS BY MOUTH TWICE DAILY - albuterol HFA (PROVENTIL HFA, VENTOLIN HFA) 90 mcg/actuation inhaler albuterol sulfate HFA 90 mcg/actuation aerosol inhaler INHALE 2 PUFFS BY MOUTH EVERY 4 TO 6 HOURS NEEDED for shortness of breath and FOR WHEEZING - aspirin, enteric coated (ASPIRIN, ENTERIC COATED) 81 mg EC tablet q 24 HR. - atorvastatin (LIPITOR) 40 mg tablet atorvastatin 40 mg tablet TAKE 1 TABLET BY MOUTH AT BEDTIME - furosemide (LASIX) 40 mg tablet furosemide 40 mg tablet TAKE 1 TABLET BY MOUTH DAILY - metoprolol succinate ER (TOPROL XL) 100 mg Take 100 mg by mouth once daily. - nitroglycerin sublingual (NITROQUICK) 0.4 mg SL tablet nitroglycerin 0.4 mg sublingual tablet DISSOLVE 1 TABLET UNDER THE TONGUE NEEDED FOR CHEST PAIN- MAY REPEAT EVERY 5 MINUTES IF NEEDED ( MAX 3 DOSES.- IF NO RELIEF CALL 911) - sacubitril-valsartan (ENTRESTO) 97-103 mg tablet Entresto 97 mg-103 mg tablet TAKE 1 TABLET BY MOUTH TWICE DAILY Problem List As Of Date 08/11/2023 Noted Resolved Cancer of trachea, bronchus, and lung (HCC) [C3*10/29/2021 Coronary arteriosclerosis [I25.10] 01/05/2022 Chronic diastolic CHF (congestive heart failure*01/05/2022 Aortic valve stenosis [I35.0] 01/05/2022 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] 01/05/2022 Acute thrombus of left ventricle (HCC) [I24.0] 01/05/2022 Aortic valve replaced [Z95.2] 01/05/2022 Carotid artery stenosis [I65.29] 01/05/2022 Lung nodules [R91.8] 01/05/2022 Hx of CABG [Z95.1] 01/05/2022 HTN (hypertension) [I10] 01/05/2022 Smoker [F17.200] 01/05/2022 COPD (chronic obstructive pulmonary disease) (H*01/05/2022 HLD (hyperlipidemia) [E78.5] (more content not included)... [facility] ([id number]) 1950 [address] [place] Date Time Provider Department 08/11/23 JAYA BAI NCCVIRGEN During your visit today, we recorded the following information about you: Ania Crump 08/11/2023 3:05 PM Signed Triage: Please see Dr. Bai note below. Thank you! Arabella Rachel, RN 08/11/2023 4:40 PM Signed I started a different encounter in regards to the Mag citrate, [facility] [place] says that this has been on back order for a while. We do however have 2 bottles here but close at 4 AND he lives in [place]. Waiting on Dr Bai to see if he wants to order something or transfer Rx. Will close prior encounter JERONIMO Guevara Felicia, RN 08/11/2023 4:[address] with [address] Bai and recommendations are as follows: DC Mag citrate and have patient start dulcolax per package instruction AND Miralax BID. Patient is aware that a nurse will call him Monday to assess. Emergent S/S reviewed with patient. He has verbalized understanding and agrees with plan. He also notes he is familiar with dulcolax and miralax as he took those meds for scope prep JERONIMO Guevara Natalie, RN 08/14/2023 9:09 AM Signed Spoke with pt. He reports took the meds Monday and Monday, with some relief. Pt encouraged to continue medications until he feels they are no longer needed or he develops diarrhea. He is encouraged to call for any further needs. Adenike Rosas RN Allergies As of Date: 08/11/2023 (No Known Allergies) Date Reviewed: 08/11/2023 Reviewed by: Prachi Stephens Ma - Fully Assessed Reason for Visit: Results [95] Patient Update [1234] Prescriptions as of 08/14/2023 - omeprazole (PRILOSEC) 40 mg capsule TAKE 1 CAPSULE BY MOUTH TWICE DAILY (30 MINUTES BEFORE morning meal AND IN THE EVENING) - amitriptyline (ELAVIL) 25 mg tablet Take 25 mg by mouth daily at bedtime. - metroNIDAZOLE (FLAGYL) 250 mg tablet Take 250 mg by mouth four times daily. - clopidogrel (PLAVIX) 75 mg tablet Take 1 tablet by mouth once daily for 15 days. - spironolactone (ALDACTONE) 25 mg tablet - zolpidem (AMBIEN) 10 mg Take 10 mg by mouth once daily. - TRELEGY ELLIPTA 200-62.5-25 mcg inhalation powder INHALE 1 PUFF BY MOUTH DAILY - penicillin V potassium (V-CILLIN, VEETIDS) 500 mg tablet Take 500 mg by mouth four times daily. - oxyCODONE-acetaminop hen (PERCOCET) 5-325 mg tablet TAKE 1 TABLET BY MOUTH EVERY 12 HOURS NEEDED FOR PAIN - potassium chloride ER (K-DUR, KLOR-CON) 20 mEq tablet Take 10 mEq by mouth once daily. - levoFLOXacin (LEVAQUIN) 750 mg tablet Take 750 mg by mouth once daily. - predniSONE (DELTASONE) 20 mg tablet Take 40 mg by mouth daily with food. - amLODIPine (NORVASC) 10 mg tablet Take 10 mg by mouth once daily. - Nebulizer and Compressor For Neb 1 Each three times daily as needed. - Albuterol Sulfate 1.25 mg/3 mL nebulizer solution Use 1 Ampule via nebulizer every 6 hours as needed for wheezing/shortness of breath. - sildenafil (VIAGRA) 25 mg tablet sildenafil 25 mg tablet TAKE 1 TABLET BY MOUTH 30 MINUTES BEFORE sexual activity - busPIRone (BUSPAR) 15 mg tablet Take 15 mg by mouth three times daily. - budesonide-formotero l (SYMBICORT) 160-4.5 mcg/actuation inhaler Symbicort 160 mcg-4.5 mcg/actuation HFA aerosol inhaler INHALE 2 PUFFS BY MOUTH TWICE DAILY - albuterol HFA (PROVENTIL HFA, VENTOLIN HFA) 90 mcg/actuation inhaler albuterol sulfate HFA 90 mcg/actuation aerosol inhaler INHALE 2 PUFFS BY MOUTH EVERY 4 TO 6 HOURS NEEDED for shortness of breath and FOR WHEEZING - aspirin, enteric coated (ASPIRIN, ENTERIC COATED) 81 mg EC tablet q 24 HR. - atorvastatin (LIPITOR) 40 mg tablet atorvastatin 40 mg tablet TAKE 1 TABLET BY MOUTH AT BEDTIME - furosemide (LASIX) 40 mg tablet furosemide 40 mg tablet TAKE 1 TABLET BY MOUTH DAILY - metoprolol succinate ER (TOPROL XL) 100 mg Take 100 mg by mouth once daily. - nitroglycerin sublingual (NITROQUICK) 0.4 mg SL tablet nitroglycerin 0.4 mg sublingual tablet DISSOLVE 1 TABLET UNDER THE TONGUE NEEDED FOR CHEST PAIN- MAY REPEAT EVERY 5 MINUTES IF NEEDED ( MAX 3 DOSES.- IF NO RELIEF CALL 911) - sacubitril-valsartan (ENTRESTO) 97-103 mg tablet Entresto 97 mg-103 mg tablet TAKE 1 TABLET BY MOUTH TWICE DAILY Problem List As Of Date 08/11/2023 Noted Resolved Cancer of trachea, bronchus, and lung (HCC) [C3*10/29/2021 Coronary arteriosclerosis [I25.10] 01/05/2022 Chronic diastolic CHF (congestive heart failure*01/05/2022 Aortic valve stenosis [I35.0] 01/05/2022 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] 01/05/2022 Acute thrombus of left ventricle (HCC) [I24.0] 01/05/2022 Aortic valve replaced [Z95.2] 01/05/2022 Carotid artery stenosis [I65.29] 01/05/2022 Lung nodules [R91.8] 01/05/2022 Hx of CABG [Z95.1] 01/05/2022 HTN (hypertension (more content not included)... Normal [facility] CBC W Auto Differential pane l (Bld)on 08-04-2023 Basophils (Bld) [#/Vol] 0.07 10*3/uL Normal <0.11 [facility] Comment on above: Order Comment: Speci men Type: BLOOD SPECIMENOrdering Facility: [facility] Address: [address] [place] [address] Performed By: #### 5 7021-8 ####[facility] LABCLIA [id number] [place] [address] Basophils/100 WBC (Bld) 0.7 % Normal C [facility] Comment on above: Order Comment: Speci men Type: BLOOD SPECIMENOrdering Facility: [facility] Address: [address] [place] [address] Performed By: #### 5 7021-8 ####[facility] LABCLIA [id number] [place] [address] Differential cell count method Nom (Bld) Auto Normal [facility] Comment on above: Order Comment: Speci men Type: BLOOD SPECIMENOrdering Facility: [facility] Address: [address] [place] [address] Performed By: #### 5 7021-8 ####[facility] LABCLIA [id number] [place] [address] Eosinophils (Bld) [#/Vol] 0.56 10*3/uL High <0.46 [facility] Comment on above: Order Comment: Speci men Type: BLOOD SPECIMENOrdering Facility: [facility] Address: [address] [place] [address] Performed By: #### 5 7021-8 ####[facility] LABCLIA [id number] [place] [address] Eosinophils/100 WBC (Bld) 6.0 % Normal [facility] Comment on above: Order Comment: Speci men Type: BLOOD SPECIMENOrdering Facility: [facility] Address: [address] [place] [address] Performed By: #### 5 7021-8 ####[facility] LABCLIA [id number] [place] [address] Erythrocyte distribution width (RBC) [Ratio] 13.2 % Normal 11.5-15.0 [facility] Comment on above: Order Comment: Speci men Type: BLOOD SPECIMENOrdering Facility: [facility] Address: [address] [place] [address] Performed By: #### 5 7021-8 ####[facility] LABCLIA [id number] [place] [address] Hematocrit (Bld) [Volume fraction] 42.9 % Normal 39.0-51.0 [facility] Comment on above: Order Comment: Speci men Type: BLOOD SPECIMENOrdering Facility: [facility] Address: [address] [place] [address] Performed By: #### 5 7021-8 ####[facility] LABCLIA [id number] [place] [address] Hemoglobin (Bld) [Mass/Vol] 13.9 g/dL Normal 13.0-17.0 [facility] Comment on above: Order Comment: Speci men Type: BLOOD SPECIMENOrdering Facility: [facility] Address: [address] [place] [address] Performed By: #### 5 7021-8 ####[facility] LABCLIA [id number] [place] [address] Immature granulocytes (Bld) [#/Vol] 0.09 10*3/uL Normal <0.10 [facility] Comment on above: Order Comment: Speci men Type: BLOOD SPECIMENOrdering Facility: [facility] Address: [address] [place] [address] Performed By: #### 5 7021-8 ####[facility] LABCLIA [id number] [place] [address] Immature granulocytes/100 WBC (Bld) 1.0 % Normal [facility] Comment on above: Order Comment: Speci men Type: BLOOD SPECIMENOrdering Facility: [facility] Address: [address] [place] [address] Performed By: #### 5 7021-8 ####[facility] LABCLIA [id number] [place] [address] Lymphocytes (Bld) [#/Vol] 2.14 10*3/uL Normal 1.00-4.00 [facility] Comment on above: Order Comment: Speci men Type: BLOOD SPECIMENOrdering Facility: [facility] Address: [address] [place] [address] Performed By: #### 5 7021-8 ####[facility] LABCLIA [id number] [place] [address] Lymphocytes/100 WBC (Bld) 22.8 % Normal [facility] Comment on above: Order Comment: Speci men Type: BLOOD SPECIMENOrdering Facility: [facility] Address: [address] [place] [address] Performed By: #### 5 7021-8 ####[facility] LABCLIA [id number] [place] [address] MCH (RBC) [Entitic mass] 30.0 pg Normal 26.0-34.0 [facility] Comment on above: Order Comment: Speci men Type: BLOOD SPECIMENOrdering Facility: [facility] Address: [address] [place] [address] Performed By: #### 5 7021-8 ####[facility] LABCLIA [id number] [place] [address] MCHC (RBC) [Mass/Vol] 32.4 g/dL Normal 30.5-36.0 [facility] Comment on above: Order Comment: Speci men Type: BLOOD SPECIMENOrdering Facility: [facility] Address: [address] [place] [address] Performed By: #### 5 7021-8 ####[facility] LABCLIA [id number] [place] [address] MCV (RBC) [Entitic vol] 92.7 fL Normal 80.0-100.0 C [facility] Comment on above: Order Comment: Speci men Type: BLOOD SPECIMENOrdering Facility: [facility] Address: [address] [place] [address] Performed By: #### 5 7021-8 ####[facility] LABCLIA [id number] [place] [address] Monocytes (Bld) [#/Vol] 1.14 10*3/uL High <0.87 [facility] Comment on above: Order Comment: Speci men Type: BLOOD SPECIMENOrdering Facility: [facility] Address: [address] [place] [address] Performed By: #### 5 7021-8 ####[facility] LABCLIA [id number] [place] [address] Monocytes/100 WBC (Bld) 12.2 % Normal C [facility] Comment on above: Order Comment: Speci men Type: BLOOD SPECIMENOrdering Facility: [facility] Address: [address] [place] [address] Performed By: #### 5 7021-8 ####[facility] LABCLIA [id number] [place] [address] Neutrophils (Bld) [#/Vol] 5.37 10*3/uL Normal 1.45-7.50 [facility] Comment on above: Order Comment: Speci men Type: BLOOD SPECIMENOrdering Facility: [facility] Address: [address] [place] [address] Performed By: #### 5 7021-8 ####[facility] LABCLIA [id number] [place] [address] Neutrophils/100 WBC (Bld) 57.3 % Normal [facility] Comment on above: Order Comment: Speci men Type: BLOOD SPECIMENOrdering Facility: [facility] Address: [address] [place] [address] Performed By: #### 5 7021-8 ####[facility] LABCLIA [id number] [place] [address] Nucleated RBC (Bld) [#/Vol] 10*3/uL Normal <0.01 [facility] Comment on above: Order Comment: Speci men Type: BLOOD SPECIMENOrdering Facility: [facility] Address: [address] [place] [address] Performed By: #### 5 7021-8 ####[facility] LABCLIA [id number] [place] [address] Nucleated RBC/100 WBC (Bld) [Ratio] 0.0 /100 WBC Normal [facility] Comment on above: Order Comment: Speci men Type: BLOOD SPECIMENOrdering Facility: [facility] Address: [address] [place] [address] Performed By: #### 5 7021-8 ####[facility] LABCLIA [id number] [place] [address] Platelet mean volume (Bld) [Entitic vol] 8.8 fL Low 9.0-12.7 [facility] Comment on above: Order Comment: Speci men Type: BLOOD SPECIMENOrdering Facility: [facility] Address: [address] [place] [address] Performed By: #### 5 7021-8 ####[facility] LABCLIA [id number] [place] [address] Platelets (Bld) [#/Vol] 282 10*3/uL Normal 150-400 [facility] Comment on above: Order Comment: Speci men Type: BLOOD SPECIMENOrdering Facility: [facility] Address: [address] [place] [address] Performed By: #### 5 7021-8 ####[facility] LABCLIA [id number] [place] [address] RBC (Bld) [#/Vol] 4.63 10*6/uL Normal 4.20-6.00 [facility] Comment on above: Order Comment: Speci men Type: BLOOD SPECIMENOrdering Facility: [facility] Address: [address] [place] [address] Performed By: #### 5 7021-8 ####[facility] LABIA [id number] [place] [address] WBC (Bld) [#/Vol] 9.37 10*3/uL Normal 3.70-11.00 [facility] Comment on above: Order Comment: Speci men Type: BLOOD SPECIMENOrdering Facility: [facility] Address: [address] [place] [address] Performed By: #### 5 7021-8 ####[facility] LABCLIA [id number] [place] [address] Comprehensive metabolic 2000 panelon 08-04-2023 Albumin [Mass/Vol] 4.7 g/dL Normal 3.9-4.9 [facility] Comment on above: Order Comment: Speci men Type: BLOOD SPECIMENOrdering Facility: [facility] Address: [address] [place] [address] Performed By: #### 2 4323-8 ####[facility] LABCLIA [id number] [place] [address] ALP [Catalytic activity/Vol] 93 U/L Normal 38-113 [facility] Comment on above: Order Comment: Speci men Type: BLOOD SPECIMENOrdering Facility: [facility] Address: [address] [place] [address] Performed By: #### 2 4323-8 ####[facility] LABCLIA [id number] [place] [address] ALT [Catalytic activity/Vol] 14 U/L Normal 10-54 [facility] Comment on above: Order Comment: Speci men Type: BLOOD SPECIMENOrdering Facility: [facility] Address: [address] [place] [address] Performed By: #### 2 4323-8 ####[facility] LABCLIA [id number] [place] [address] Anion gap [Moles/Vol] 9 mmol/L Normal 9-18 [facility] Comment on above: Order Comment: Speci men Type: BLOOD SPECIMENOrdering Facility: [facility] Address: [address] [place] [address] Performed By: #### 2 4323-8 ####[facility] LABCLIA [id number] [place] [address] AST [Catalytic activity/Vol] 18 U/L Normal 14-40 [facility] Comment on above: Order Comment: Speci men Type: BLOOD SPECIMENOrdering Facility: [facility] Address: [address] [place] [address] Performed By: #### 2 4323-8 ####[facility] LABCLIA [id number] [place] [address] Bilirubin [Mass/Vol] 0.3 mg/dL Normal 0.2-1.3 [facility] Comment on above: Order Comment: Speci men Type: BLOOD SPECIMENOrdering Facility: [facility] Address: [address] [place] [address] Performed By: #### 2 4323-8 ####[facility] LABCLIA [id number] [place] [address] Calcium [Mass/Vol] 9.3 mg/dL Normal 8.5-10.2 [facility] Comment on above: Order Comment: Speci men Type: BLOOD SPECIMENOrdering Facility: [facility] Address: [address] [place] [address] Performed By: #### 2 4323-8 ####[facility] LABCLIA [id number] [place] [address] Chloride [Moles/Vol] 103 mmol/L Normal 97-105 [facility] Comment on above: Order Comment: Speci men Type: BLOOD SPECIMENOrdering Facility: [facility] Address: [address] [place] [address] Performed By: #### 2 4323-8 ####[facility] LABCLIA [id number] [place] [address] CO2 [Moles/Vol] 26 mmol/L Normal 22-30 [facility] Comment on above: Order Comment: Speci men Type: BLOOD SPECIMENOrdering Facility: [facility] Address: [address] [place] [address] Performed By: #### 2 4323-8 ####[facility] LABCLIA [id number] [place] [address] Creatinine [Mass/Vol] 1.06 mg/dL Normal 0.73-1.22 [facility] Comment on above: Order Comment: Speci men Type: BLOOD SPECIMENOrdering Facility: [facility] Address: [address] [place] [address] Performed By: #### 2 4323-8 ####[facility] LABCLIA [id number] [place] [address] Creatinine and Glomerular filtration rate.predicted panel (S/P/Bld) 75 mL/min/1.73m??? Normal >=60 [facility] Comment on above: Order Comment: Speci men Type: BLOOD SPECIMENOrdering Facility: [facility] Address: [address] [place], [place] [address] Result Comment: Karin mated Glomerular Filtration Rate (eGFR) is calculated using the 2020 CKD-EPI creatinine equation. This equation utilizes serum creatinine, sex, and age as parameters. The creatinine assay has traceable calibration to isotope dilution-mass spectrometry. Refer to KDIGO guidelines for clinical interpretation. In patients with unstable renal function, e.g. those with acute kidney injury, the eGFR may not accurately reflect actual GFR. Performed By: #### 2 4323-8 ####[facility] LABCLIA [id number] [place] [address] Glucose [Mass/Vol] 97 mg/dL Normal 74-99 [facility] Comment on above: Order Comment: Speckathryn men Type: BLOOD SPECIMENOrdering Facility: [facility] Address: [address] [place] [address] Result Comment: The [place] Diabetes Association (ADA) provides guidance for cutoff values for fasting glucose and random glucose. The ADA defines fasting as no caloric intake for at least 8 hours. Fasting plasma glucose results between 100 to 125 mg/dL indicate increased risk for diabetes (prediabetes). Fasting plasma glucose results greater than or equal to 126 mg/dL meet the criteria for diagnosis of diabetes. In the absence of unequivocal hyperglycemia, results should be confirmed by repeat testing. In a patient with classic symptoms of hyperglycemia or hyperglycemic crisis, random plasma glucose results greater than or equal to 200 mg/dL meet the criteria for diagnosis of diabetes. Reference: Standards of Medical Care in Diabetes 2016, [place] Diabetes Association. Diabetes Care. 2016.39(Suppl 1). Performed By: #### 2 4323-8 ####[facility] LABCLIA [id number] [place] [address] Potassium [Moles/Vol] 3.9 mmol/L Normal 3.7-5.1 [facility] Comment on above: Order Comment: Derek krishnamurthy Type: BLOOD SPECIMENOrdering Facility: [facility] Address: [address] [id number] Performed By: #### 2 4323-8 ####[facility] LABCLIA [id number] [place] [address] Protein [Mass/Vol] 7.8 g/dL Normal 6.3-8.0 [facility] Comment on above: Order Comment: Speci men Type: BLOOD SPECIMENOrdering Facility: [facility] Address: [address] [id number] Performed By: #### 2 4323-8 ####[facility] LABCLIA [id number] [place] [address] Sodium [Moles/Vol] 138 mmol/L Normal 136-144 [facility] Comment on above: Order Comment: Speci men Type: BLOOD SPECIMENOrdering Facility: [facility] Address: [address] [place] [address] Performed By: #### 2 4323-8 ####[facility] LABCLIA [id number] [place] [address] Urea nitrogen [Mass/Vol] 18 mg/dL Normal 9-24 [facility] Comment on above: Order Comment: Speci men Type: BLOOD SPECIMENOrdering Facility: [facility] Address: [address] [place] [id number] Performed By: #### 2 4323-8 ####[facility] LABCLIA [id number] [place] [address] NM PET/CT SKULL-THIGH SUBQon 08-04-2023 NM PET/CT SKULL-THIGH SUBQ * * *Final Report* * * DATE OF EXAM: Aug 04 2023 2:58PM NRN 0063 - NM PET/CT SKULL-THIGH SUBQ / PROCEDURE REASON: multiple diagnoses * * * * Physician Interpretation * * * * RESULT: [REGIONAL] BODY PET-CT SCAN CLINICAL HISTORY: 73 years old Male with Abnormal finding on GI tract imaging Malignant neoplasm of unspecified part of unspecified bronchus or lung (HCC) . INDICATION: Subsequent treatment strategy. TECHNIQUE: PET-CT scan: Approximately 60 minutes following the IV administration of 10.8mCi of F-18 FDG), PET and non contrast CT images were acquired from the skull base through proximal thigh. PET images were reconstructed with and without attenuation correction using attenuation coefficients. The blood glucose level before FDG injection is 95 mg/dL CT Radiation dose: Integrated Dose-length product (DLP) for this visit = 276 mGy*cm. CT Dose Reduction Employed: Automatic exposure control used (AED) COMPARISON: FDG PET-CT: 04/28/2023 CORRELATION: CT of the chest, abdomen and pelvis 01/04/2023 RESULTS: Liver SUV max 3.4 Mediastinal blood pool SUV max 3.1 Topogram review: Unremarkable, no acute findings. No retained foreign body. Head and Neck: No evidence of focal uptake to suggest FDG avid neoplastic process in the limited scanned region. No FDG avid cervical lymphadenopathy.. No significant anatomical abnormality to the limits of low dose noncontrast CT scan. Chest: No FDG avid axillary, mediastinal, or hilar lymphadenopathy.. 0.9 x 0.5 cm anterolateral left upper lobe nodule with SUV max 1.2 previously 1.2 x 0.5 cm with SUV max 2.0. Multiple small nodules are seen below PET resolution, stable, example 0.4 cm the left lower lobe (4:149), 0.5 cm in the right lower lobe (4:121). No significant anatomical abnormality to the limits of low dose noncontrast CT scan. Ascending aortic ectasia, stable. Abdomen and Pelvis: No evidence of focal uptake to suggest FDG avid neoplastic process. No FDG avid mesenteric, retroperitoneal, pelvic, or inguinal lymphadenopathy. No significant anatomical abnormality to the limits of low dose noncontrast CT scan. Extremities/Skeleton : No evidence of focal uptake to suggest FDG avid neoplastic process. No suspicious FDG avid osseous lesions. Degenerative changes present. No significant anatomical abnormality to the limits of low dose noncontrast CT scan. IMPRESSION: 1. HEAD and NECK: No evidence of focal uptake to suggest FDG avid neoplastic process.. 2. CHEST: Slight improvement in left upper lobe lung nodule. Other nodules below PET resolution stable. Follow-up with CT advised. 3. ABDOMEN/PELVIS: No evidence of focal uptake to suggest FDG avid neoplastic process.. 4. EXTREMITIES/SKELETON : No evidence of focal uptake to suggest FDG avid neoplastic process.. Transcribe Date/Time: Aug 07 2023 8:39A Dictated by: FIDELINA RUSH MD This examination was interpreted and the report reviewed and electronically signed by: FIDELINA RUSH MD on Aug 07 2023 8:56AM EST Thank you for allowing us to participate in the care of your patient. Should there be any questions regarding this interpretation, please call [phone]. If you are unable to reach us at the number above, please feel free to contact [facility] at [phone]. [id number] CN Normal [facility] Altaf 05-30-2023 L Specimen: [id number] Received: 05/30/23 Status: WILMAR Elodia Num: [id number] Spec Type: Surgical Subm Dr: Paramjit Spring MD Tissues: A GASTRIC FOR HP (GASTRIC HP) Procedures: HE/2, Gross/Micro L4, H PYLORI Age/ Patient Sex Location Account Attending Physician Alessio Burns 73/M [id number] Paramjit Spring MD SPEC NUM: [id number] RECD: 05/30/23 STATUS: WILMAR ESPINO NUM: [id number] EDIN: 05/30/23- [facility] DR: Paramjit Spring MD ENTERED: 05/30/23 [facility] DR: SPEC TYPE: Surgical DEPT: S ORDERED: HE/2, Gross/Micro L4, H PYLORI ORDERED: HE/2, Gross/Micro L4, H PYLORI Pathological Diagnosis Gastric biopsy: - Antral mucosa with moderate chronic gastritis of the mostly inactive type in both fragments, otherwise without erosion, intestinal metaplasia, or glandular atypia identified - H. pylori immunostain with appropriate control is positive for a few Helicobacter organisms in glandular pits of both fragments, compatible with moderate chronic Helicobacter gastritis Clinical Information Abnormal finding on GI tract, rule out H. pylori Gross Description Received in formalin labeled with the patient's name, date of and gastric biopsy are two hauser tissues averaging 0.2 cm. Entirely submitted in one cassette labeled A1. Microscopic Description Two H E slides reviewed. The microscopic examination confirms the diagnosis. Specimen: [id number] Received: 05/30/23 Status: CANDEJoan Espino Num: [id number] Spec Type: Surgical Subm Dr: Paramjit Spring MD Tissues: A GASTRIC FOR HP (GASTRIC HP) Procedures: HE/2, Gross/Micro L4, H PYLORI Patient: Alessio Burns [id number] (Continued) Specimen: [id number] Received: 05/30/23 (Continued) Signed (signature on file) Andrea Davis MD 06/01/23 1014 Specimen: [id number] Received: 05/30/23 Status: CANDEJoan Espino Num: [id number] Spec Type: Surgical Subm Dr: Paramjit Spring MD Tissues: A GASTRIC FOR HP (GASTRIC HP) Procedures: HE/2, Gross/Micro L4, H PYLORI Patient: Alessio Burns [id number] (Continued) Specimen: [id number] Received: 05/30/23 (Continued) CPT Codes 97193 [id number] Specimen: [id number] Received: 05/30/23 Status: WILMAR Elodia Num: [id number] Spec Type: Surgical Subm Dr: Paramjit Spring MD Tissues: A GASTRIC FOR HP (GASTRIC HP) Procedures: HE/2, Gross/Micro L4, H PYLORI Patient: Alessio Burns [id number] (Continued) Signed (signature on file) Andrea Davis MD 06/01/23 1014 [facility] CNOVSPon 05-05-2023 CNOVSP Visit (SP) Office ([place]) ALESSIO BURNS ([id number]) 1950 [facility] Date Time Provider Department 05/05/23 2:30 PM JAYA BAI During your visit today, we recorded the following information about you: Temperature Pulse Respiration Blood pressure 97.6 degrees 57/minute 16/minute 119/54 Weight Height 82.6 kg 1.676 m Jaya Bai MD 05/16/2023 1:39 PM Signed NAME: Alessio Burns CLINIC NO.: [id number] DATE OF SERVICE: May 05, 2023 ([facility]) Some elements in this clinic note that are critical to medical decision making have been carefully reviewed and included from a prior clinic note dated: March 03, 2023 (Zac) Referring Provider: Dr. 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 He actually presented with an acute myocardial infarction and had to undergo CABG and aortic valve repair emergently in June 08, 2020. Subsequent work-up demonstrated malignancy with no evidence of metastatic disease and he underwent resection in July 2020 after he had recovered from his cardiac surgery. He was not a candidate for adjuvant therapy given his almost 6-month gap between resection and presentation to me. He remains at high risk because of tobacco use. Restaging is non-specific for recurrence of lung cancer but short interval CT's found a new liver lesion which then persisted through December 2021. He saw Dr. Mota for resection 01/10/2022 - benign findings of ciliated foregut cyst. Colonoscopy. Done for + Cologuard was negative. Dyspnea wheezing - uses a nebulizer but is still smoking. New bilateral lung nodules - could be infectious / inflammatory however have continued to grow on serial CT scans. While these are highly suspicious, I suspect that they are too small to attempt biopsy which have confirmed with Dr. Carter. Will obtain PET scanning and then continue serial CT evaluation. Will consider thoracic surgery referral for biopsy as suspicion increases. Additional changes on CT January 04, 2023 with some resolution but some with growth. February 2023 repeat PET/CT shows progression of multiple pulmonary nodules with one nodule in the left upper lobe measuring 1.7 x 0.9 cm subpleural previously 0.8 x 0.7 cm FDG avidity with max SUV of 2.8. He also has a 1.0 x 0.8 cm posterior right lower lobe nodule that was previously 0.8 x 0.7 cm max SUV of 1.8. Since SUV measurements were stillfairly low, I obtained a repeat PET/CT 2 months later in April 2023 that showed improvement of all pulmonary nodules. However, there was some uptake in the distal stomach/proximal duodenum which will need further evaluation. PLAN: Refer to GI for upper endoscopy for positive PET/CT Repeat PET in 3 months labs same day. HPI: Updated Visit, May 05, 2023: Alessio returns with his Sister Maria Teresa today and seems to be doing well. He is in good spirits. PET/CT was reviewed Shows improvement of bilateral pulmonary nodules. However the abdomen and pelvis demonstrate persistent uptake at the distal stomach/proximal duodenum and likely needs upper endoscopy. Updated Visit, March 03, 2023: Alessio returns with his son during and his younger Sister Maria Teresa today. Overall he feels generally asymptomatic. 02/21/2023 PET/CT reviewed with images reviewed as well. This demonstrates interval increase in size and number of innumerable bilateral pulmonary nodules some of which demonstrate borderline FDG activity. His findings are most compatible with metastatic disease. Updated Visit, January 04, 2023: Good spirits - returns with younger sister Maria Teresa. CT images reviewed and will call regarding final read. 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 Recently, he was found to have a positive TB test and will need to undergo bronchoscopy with lavage and culture. I have encouraged him to get this set up with Dr. Lentz and have spoken with her as well. Updated Visit, October 07, 2022: Reviewed results of scans: PET with multiple foci of uptake most active in MOOKIE. Concerning for metastatic disease. Received discussion with Dr. Carter - lesions are too small to biopsy - may need surgical biopsy. Will likely need CT's in 8 weeks in serial fashion in order not to miss any evidence of growth. U (more content not included)... [facility] ALESS[facility] BURNS ([id number]) 1950 [address]* Date Time Provider Department 05/05/23 JAYA BAI [facility] During your visit today, we recorded the following information about you: Ania Crump 05/05/2023 3:12 PM Signed Refer to GI for upper endoscopy for positive PET/CT Katty/Agustín: Can you please refer patient and follow up? He states he has seen Dr. Queen in the past but would prefer to stay locally still. Karen Boyle 05/10/2023 8:30 AM Signed Katty: Information ready for you. Gale Mejias 05/16/2023 2:20 PM Signed Records faxed to Komal Hernandez, Karen 05/18/2023 10:45 AM Signed Called [facility] spoke with Jaylene. They have received this referral and their laboratory operations coordinator will be calling patient to get scheduled. Karen Chin 05/22/2023 1:26 PM Signed Called Elizabeth Alexandr spoke with Gita. Patient is scheduled for EGD with Dr. Spring on 05/30. Karen Hernandez Allergies As of Date: 05/05/2023 (No Known Allergies) Date Reviewed: 05/05/2023 Reviewed by: Prachi Stephens Ma - Fully Assessed Reason for Visit: Referral Information [7443] Cmt: GI Prescriptions as of 05/22/2023 - clopidogrel (PLAVIX) 75 mg tablet Take 1 tablet by mouth once daily for 15 days. - spironolactone (ALDACTONE) 25 mg tablet - zolpidem (AMBIEN) 10 mg Take 10 mg by mouth once daily. - TRELEGY ELLIPTA 200-62.5-25 mcg inhalation powder INHALE 1 PUFF BY MOUTH DAILY - penicillin V potassium (V-CILLIN, VEETIDS) 500 mg tablet Take 500 mg by mouth four times daily. - oxyCODONE-acetaminop hen (PERCOCET) 5-325 mg tablet TAKE 1 TABLET BY MOUTH EVERY 12 HOURS NEEDED FOR PAIN - potassium chloride ER (K-DUR, KLOR-CON) 20 mEq tablet Take 10 mEq by mouth once daily. - levoFLOXacin (LEVAQUIN) 750 mg tablet Take 750 mg by mouth once daily. - predniSONE (DELTASONE) 20 mg tablet Take 40 mg by mouth daily with food. - amLODIPine (NORVASC) 10 mg tablet Take 10 mg by mouth once daily. - Nebulizer and Compressor For Neb 1 Each three times daily as needed. - Albuterol Sulfate 1.25 mg/3 mL nebulizer solution Use 1 Ampule via nebulizer every 6 hours as needed for wheezing/shortness of breath. - sildenafil (VIAGRA) 25 mg tablet sildenafil 25 mg tablet TAKE 1 TABLET BY MOUTH 30 MINUTES BEFORE sexual activity - busPIRone (BUSPAR) 15 mg tablet Take 15 mg by mouth three times daily. - budesonide-formotero l (SYMBICORT) 160-4.5 mcg/actuation inhaler Symbicort 160 mcg-4.5 mcg/actuation HFA aerosol inhaler INHALE 2 PUFFS BY MOUTH TWICE DAILY - albuterol HFA (PROVENTIL HFA, VENTOLIN HFA) 90 mcg/actuation inhaler albuterol sulfate HFA 90 mcg/actuation aerosol inhaler INHALE 2 PUFFS BY MOUTH EVERY 4 TO 6 HOURS NEEDED for shortness of breath and FOR WHEEZING - aspirin, enteric coated (ASPIRIN, ENTERIC COATED) 81 mg EC tablet q 24 HR. - atorvastatin (LIPITOR) 40 mg tablet atorvastatin 40 mg tablet TAKE 1 TABLET BY MOUTH AT BEDTIME - furosemide (LASIX) 40 mg tablet furosemide 40 mg tablet TAKE 1 TABLET BY MOUTH DAILY - metoprolol succinate ER (TOPROL XL) 100 mg Take 100 mg by mouth once daily. - nitroglycerin sublingual (NITROQUICK) 0.4 mg SL tablet nitroglycerin 0.4 mg sublingual tablet DISSOLVE 1 TABLET UNDER THE TONGUE NEEDED FOR CHEST PAIN- MAY REPEAT EVERY 5 MINUTES IF NEEDED ( MAX 3 DOSES.- IF NO RELIEF CALL 911) - sacubitril-valsartan (ENTRESTO) 97-103 mg tablet Entresto 97 mg-103 mg tablet TAKE 1 TABLET BY MOUTH TWICE DAILY Problem List As Of Date 05/05/2023 Noted Resolved Cancer of trachea, bronchus, and lung (HCC) [C3*10/29/2021 Coronary arteriosclerosis [I25.10] 01/05/2022 Chronic diastolic CHF (congestive heart failure*01/05/2022 Aortic valve stenosis [I35.0] 01/05/2022 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] 01/05/2022 Acute thrombus of left ventricle (HCC) [I24.0] 01/05/2022 Aortic valve replaced [Z95.2] 01/05/2022 Carotid artery stenosis [I65.29] 01/05/2022 Lung nodules [R91.8] 01/05/2022 Hx of CABG [Z95.1] 01/05/2022 HTN (hypertension) [I10] 01/05/2022 Smoker [F17.200] 01/05/2022 COPD (chronic obstructive pulmonary disease) (H*01/05/2022 HLD (hyperlipidemia) [E78.5] 01/05/2022 Depression [F32.A] 01/05/2022 Panlobular emphysema (HCC) [J43.1] 07/21/2022 Encounter Status:Closed by ANIA CRUMP on 05/22/23 Normal [facility] CBC W Auto Differential pane l (Bld)on 04-28-2023 Basophils (Bld) [#/Vol] 0.06 10*3/uL Normal <0.11 [facility] Comment on above: Order Comment: Speci men Type: BLOOD SPECIMENOrdering Facility: [facility] Address: [address] [place] [address] Performed By: #### 5 7021-8 ####[facility] LABCLIA [id number] [place] [address] Basophils/100 WBC (Bld) 0.7 % Normal C [facility] Comment on above: Order Comment: Speci men Type: BLOOD SPECIMENOrdering Facility: [facility] Address: [address] [place] [address] Performed By: #### 5 7021-8 ####[facility] LABCLIA [id number] [place] [address] Differential cell count method Nom (Bld) Auto Normal [facility] Comment on above: Order Comment: Speci men Type: BLOOD SPECIMENOrdering Facility: [facility] Address: [address] [place] [address] Performed By: #### 5 7021-8 ####[facility] LABCLIA [id number] [place] [address] Eosinophils (Bld) [#/Vol] 0.32 10*3/uL Normal <0.46 [facility] Comment on above: Order Comment: Speci men Type: BLOOD SPECIMENOrdering Facility: [facility] Address: [address] [place] [address] Performed By: #### 5 7021-8 ####[facility] LABCLIA [id number] [place] [address] Eosinophils/100 WBC (Bld) 3.5 % Normal [facility] Comment on above: Order Comment: Speci men Type: BLOOD SPECIMENOrdering Facility: [facility] Address: [address] [address] Performed By: #### 5 7021-8 ####[facility] LABCLIA [id number] [place] [address] Erythrocyte distribution width (RBC) [Ratio] 13.8 % Normal 11.5-15.0 [facility] Comment on above: Order Comment: Speci men Type: BLOOD SPECIMENOrdering Facility: [facility] Address: [address] [place] [address] Performed By: #### 5 7021-8 ####[facility] LABCLIA [id number] [place] [address] Hematocrit (Bld) [Volume fraction] 42.2 % Normal 39.0-51.0 [facility] Comment on above: Order Comment: Speci men Type: BLOOD SPECIMENOrdering Facility: [facility] Address: [address] [place] [address] Performed By: #### 5 7021-8 ####[facility] LABCLIA [id number] [place] [address] Hemoglobin (Bld) [Mass/Vol] 13.8 g/dL Normal 13.0-17.0 [facility] Comment on above: Order Comment: Speci men Type: BLOOD SPECIMENOrdering Facility: [facility] Address: [address] [place] [address] Performed By: #### 5 7021-8 ####[facility] LABCLIA [id number] [place] [address] Immature granulocytes (Bld) [#/Vol] 0.06 10*3/uL Normal <0.10 [facility] Comment on above: Order Comment: Speci men Type: BLOOD SPECIMENOrdering Facility: [facility] Address: [address] [place] [address] Performed By: #### 5 7021-8 ####[facility] LABCLIA [id number] [place] [address] Immature granulocytes/100 WBC (Bld) 0.7 % Normal [facility] Comment on above: Order Comment: Speci men Type: BLOOD SPECIMENOrdering Facility: [facility] Address: [address] [place] [address] Performed By: #### 5 7021-8 ####[facility] LABCLIA [id number] [place] [address] Lymphocytes (Bld) [#/Vol] 1.74 10*3/uL Normal 1.00-4.00 [facility] Comment on above: Order Comment: Speci men Type: BLOOD SPECIMENOrdering Facility: [facility] Address: [address] [place] [address] Performed By: #### 5 7021-8 ####[facility] LABCLIA [id number] [place] [address] Lymphocytes/100 WBC (Bld) 19.0 % Normal [facility] Comment on above: Order Comment: Speci men Type: BLOOD SPECIMENOrdering Facility: [facility] Address: [address] [place] [address] Performed By: #### 5 7021-8 ####[facility] LABCLIA [id number] [place] [address] MCH (RBC) [Entitic mass] 29.7 pg Normal 26.0-34.0 [facility] Comment on above: Order Comment: Speci men Type: BLOOD SPECIMENOrdering Facility: [facility] Address: [address] [place] [address] Performed By: #### 5 7021-8 ####[facility] LABCLIA [id number] [place] [address] MCHC (RBC) [Mass/Vol] 32.7 g/dL Normal 30.5-36.0 [facility] Comment on above: Order Comment: Speci men Type: BLOOD SPECIMENOrdering Facility: [facility] Address: [address] [address] Performed By: #### 5 7021-8 ####[facility] LABCLIA [id number] [place] [address] MCV (RBC) [Entitic vol] 90.9 fL Normal 80.0-100.0 [facility] Comment on above: Order Comment: Speci men Type: BLOOD SPECIMENOrdering Facility: [facility] Address: [address] [address] Performed By: #### 5 7021-8 ####[facility] LABCLIA [id number] [place] [address] Monocytes (Bld) [#/Vol] 1.18 10*3/uL High <0.87 [facility] Comment on above: Order Comment: Speci men Type: BLOOD SPECIMENOrdering Facility: [facility] Address: [address] [address] Performed By: #### 5 7021-8 ####[facility] LABCLIA [id number] [place] [address] Monocytes/100 WBC (Bld) 12.9 % Normal [facility] Comment on above: Order Comment: Speci men Type: BLOOD SPECIMENOrdering Facility: [facility] Address: [address] [address] Performed By: #### 5 7021-8 ####[facility] LABCLIA [id number] [place] [address] Neutrophils (Bld) [#/Vol] 5.78 10*3/uL Normal 1.45-7.50 [facility] Comment on above: Order Comment: Speci men Type: BLOOD SPECIMENOrdering Facility: [facility] Address: [address] [address] Performed By: #### 5 7021-8 ####[facility] LABCLIA [id number] [place] [address] Neutrophils/100 WBC (Bld) 63.2 % Normal [facility] Comment on above: Order Comment: Speci men Type: BLOOD SPECIMENOrdering Facility: [facility] Address: [address] [place] [address] Performed By: #### 5 7021-8 ####[facility] LABCLIA [id number] [place] [address] Nucleated RBC (Bld) [#/Vol] 10*3/uL Normal <0.01 [facility] Comment on above: Order Comment: Speci men Type: BLOOD SPECIMENOrdering Facility: [facility] Address: [address] [place] [address] Performed By: #### 5 7021-8 ####[facility] LABCLIA [id number] [place] [address] Nucleated RBC/100 WBC (Bld) [Ratio] 0.0 /100 WBC Normal [facility] Comment on above: Order Comment: Speci men Type: BLOOD SPECIMENOrdering Facility: [facility] Address: [address] [place] [address] Performed By: #### 5 7021-8 ####[facility] LABCLIA [id number] [place] [address] Platelet mean volume (Bld) [Entitic vol] 9.3 fL Normal 9.0-12.7 [facility] Comment on above: Order Comment: Speci men Type: BLOOD SPECIMENOrdering Facility: [facility] Address: [address] [place] [address] Performed By: #### 5 7021-8 ####[facility] LABCLIA [id number] [place] [address] Platelets (Bld) [#/Vol] 226 10*3/uL Normal 150-400 [facility] Comment on above: Order Comment: Speci men Type: BLOOD SPECIMENOrdering Facility: [facility] Address: [address] [place] [address] Performed By: #### 5 7021-8 ####[facility] LABIA [id number] [place] [address] RBC (Bld) [#/Vol] 4.64 10*6/uL Normal 4.20-6.00 [facility] Comment on above: Order Comment: Speci men Type: BLOOD SPECIMENOrdering Facility: [facility] Address: [address] [place] [address] Performed By: #### 5 7021-8 ####[facility] [id number] [place] [address] WBC (Bld) [#/Vol] 9.14 10*3/uL Normal 3.70-11.00 [facility] Comment on above: Order Comment: Speci men Type: BLOOD SPECIMENOrdering Facility: [facility] Address: [address] [place] [address] Performed By: #### 5 7021-8 ####[facility] LABIA [id number] [place] [address] Comprehensive metabolic 2000 panelon 04-28-2023 Albumin [Mass/Vol] 4.4 g/dL Normal 3.9-4.9 [facility] Comment on above: Order Comment: Speci men Type: BLOOD SPECIMENOrdering Facility: [facility] Address: [address] [place] [address] Performed By: #### 2 4323-8 ####[facility] LABIA [id number] [place] [address] ALP [Catalytic activity/Vol] 89 U/L Normal 38-113 [facility] Comment on above: Order Comment: Speci men Type: BLOOD SPECIMENOrdering Facility: [facility] Address: [address] [place] [address] Performed By: #### 2 4323-8 ####[facility] LABCLIA [id number] [place] [address] ALT [Catalytic activity/Vol] 8 U/L Low 10-54 [facility] Comment on above: Order Comment: Speci men Type: BLOOD SPECIMENOrdering Facility: [facility] Address: [address] [place] [address] Performed By: #### 2 4323-8 ####[facility] LABCLIA [id number] [place] [address] Anion gap [Moles/Vol] 10 mmol/L Normal 9-18 [facility] Comment on above: Order Comment: Speci men Type: BLOOD SPECIMENOrdering Facility: [facility] Address: [address] [place] [address] Performed By: #### 2 4323-8 ####[facility] LABCLIA [id number] [place] [address] AST [Catalytic activity/Vol] 15 U/L Normal 14-40 [facility] Comment on above: Order Comment: Speci men Type: BLOOD SPECIMENOrdering Facility: [facility] Address: [address] [place] [address] Performed By: #### 2 4323-8 ####[facility] LABCLIA [id number] [place] [address] Bilirubin [Mass/Vol] 0.4 mg/dL Normal 0.2-1.3 [facility] Comment on above: Order Comment: Speci men Type: BLOOD SPECIMENOrdering Facility: [facility] Address: [address] [place] [address] Performed By: #### 2 4323-8 ####[facility] LABCLIA [id number] [place] [address] Calcium [Mass/Vol] 9.4 mg/dL Normal 8.5-10.2 [facility] Comment on above: Order Comment: Speci men Type: BLOOD SPECIMENOrdering Facility: [facility] Address: [address] [address] Performed By: #### 2 4323-8 ####[facility] LABCLIA [id number] [place] [address] Chloride [Moles/Vol] 103 mmol/L Normal 97-105 [facility] Comment on above: Order Comment: Speci men Type: BLOOD SPECIMENOrdering Facility: [facility] Address: [address] [address] Performed By: #### 2 4323-8 ####[facility] LABCLIA [id number] [place] [address] CO2 [Moles/Vol] 24 mmol/L Normal 22-30 [facility] Comment on above: Order Comment: Speci men Type: BLOOD SPECIMENOrdering Facility: [facility] Address: [address] [place] [address] Performed By: #### 2 4323-8 ####[facility] LABCLIA [id number] [place] [address] Creatinine [Mass/Vol] 1.20 mg/dL Normal 0.73-1.22 [facility] Comment on above: Order Comment: Speci men Type: BLOOD SPECIMENOrdering Facility: [facility] Address: [address] [place] [address] Performed By: #### 2 4323-8 ####[facility] LABCLIA [id number] [place] [address] Creatinine and Glomerular filtration rate.predicted panel (S/P/Bld) 64 mL/min/1.73m??? Normal >=60 [facility] Comment on above: Order Comment: Speci men Type: BLOOD SPECIMENOrdering Facility: [facility] Address: [address] [place] [address] Result Comment: Karin mated Glomerular Filtration Rate (eGFR) is calculated using the 2020 CKD-EPI creatinine equation. This equation utilizes serum creatinine, sex, and age as parameters. The creatinine assay has traceable calibration to isotope dilution-mass spectrometry. Refer to KDIGO guidelines for clinical interpretation. In patients with unstable renal function, e.g. those with acute kidney injury, the eGFR may not accurately reflect actual GFR. Performed By: #### 2 4323-8 ####[facility] LABCLIA [id number] [place] [address] Glucose [Mass/Vol] 100 mg/dL High 74-99 [facility] Comment on above: Order Comment: Speci men Type: BLOOD SPECIMENOrdering Facility: [facility] Address: [address] [place], [place] [id number] Result Comment: The [place] Diabetes Association (ADA) provides guidance for cutoff values for fasting glucose and random glucose. The ADA defines fasting as no caloric intake for at least 8 hours. Fasting plasma glucose results between 100 to 125 mg/dL indicate increased risk for diabetes (prediabetes). Fasting plasma glucose results greater than or equal to 126 mg/dL meet the criteria for diagnosis of diabetes. In the absence of unequivocal hyperglycemia, results should be confirmed by repeat testing. In a patient with classic symptoms of hyperglycemia or hyperglycemic crisis, random plasma glucose results greater than or equal to 200 mg/dL meet the criteria for diagnosis of diabetes. Reference: Standards of Medical Care in Diabetes 2016, [place] Diabetes Association. Diabetes Care. 2016.39(Suppl 1). Performed By: #### 2 4323-8 ####[facility] LABCLIA [id number] [place] [address] Potassium [Moles/Vol] 4.2 mmol/L Normal 3.7-5.1 [facility] Comment on above: Order Comment: Speci men Type: BLOOD SPECIMENOrdering Facility: [facility] Address: [address] [place] [id number] Performed By: #### 2 4323-8 ####[facility] LABCLIA [id number] [place] [address] Protein [Mass/Vol] 7.3 g/dL Normal 6.3-8.0 [facility] Comment on above: Order Comment: Speci men Type: BLOOD SPECIMENOrdering Facility: [facility] Address: [address] [address] Performed By: #### 2 4323-8 ####[facility] LABCLIA [id number] [place] [address] Sodium [Moles/Vol] 137 mmol/L Normal 136-144 [facility] Comment on above: Order Comment: Speci men Type: BLOOD SPECIMENOrdering Facility: [facility] Address: [address] [address] Performed By: #### 2 4323-8 ####[facility] LABCLIA [id number] [place] [address] Urea nitrogen [Mass/Vol] 19 mg/dL Normal 9-24 [facility] Comment on above: Order Comment: Speci men Type: BLOOD SPECIMENOrdering Facility: [facility] Address: [address] [address] Performed By: #### 2 4323-8 ####[facility] LABCLIA [id number] [place] [address] NM PET/CT SKULL-THIGH SUBQon 04-28-2023 NM PET/CT SKULL-THIGH SUBQ * * *Final Report* * * DATE OF EXAM: Apr 28 2023 3:01PM NRN 0063 - NM PET/CT SKULL-THIGH SUBQ / PROCEDURE REASON: multiple diagnoses * * * * Physician Interpretation * * * * RESULT: FDG PET/CT SCAN 04/28/2023 1:11 PM: CLINICAL HISTORY: 73 years old Male with Malignant neoplasm of unspecified part of unspecified bronchus or lung (HCC) Lung nodules INDICATION: Subsequent treatment strategy. Reference max SUV: Mediastinum blood pool activity: max SUV 2.2 TECHNIQUE: 10.8 mCi F-18 FDG IV, followed about 1 hour later by PET imaging from base of the skull to proximal femur. Non contrast CT was performed for attenuation correction and anatomic localization purposes, and acute/emergent/actio nable findings are described. [CSS] CT Dose-Length Product (DLP): 257 mGy*cm. CT Dose Reduction Employed: Yes BLOOD GLUCOSE: 103 mg/dL COMPARISON: 02/21/2023 FDG PET/CT, and 01/21/[address] RESULT: Limitations: Heterogeneous background noise Note- The SUV value is for reference purposes. Due to technical factors and uncontrolled variables, caution is advised when using SUV to differentiate malignant from nonmalignant processes, or to assess follow-up/treatment response. HEAD AND NECK: No pathologically enlarged or hypermetabolic cervical lymphadenopathy. Uptake in the oral cavity, tonsils, salivary glands, extraocular muscles is likely physiologic. Substantially limited evaluation of the intracranial structures due to the physiologic dickens matter uptake. CHEST: Lungs and tracheobronchial tree: Improvement of the bilateral pulmonary nodules compared to prior study. Index lesions: 0.5 x 1.2 cm anterolateral left upper lobe on 4:100 with max SUV 2.0, previously 0.8 x 1.6 seen with max SUV 2.8. Resolution of the previous right upper lobe nodule. Assess for improvement of the multiple right lower lobe nodules, the most conspicuous appearance of solid measuring approximately 0.7 seen on 4:133 with max SUV 1.6, previously 0.8 cm with max SUV 1.8 No new/worsening hypermetabolic nodules or consolidation. Pleura and pericardium: No significantly FDG avid pleural effusion. Mediastinum and Lymph nodes: No hypermetabolic axillary, hilar, or mediastinal lymphadenopathy. There is uptake along the atrial occluder device. 4.8 cm ascending thoracic aortic ectasia is not significantly changed; attention on follow-up studies. Chest wall: No hypermetabolic lesion. ABDOMEN AND PELVIS: Liver: Mildly heterogeneous uptake, no definite hypermetabolic lesion. Biliary: No focal FDG avidity. Spleen: No FDG avidity. No splenomegaly. Pancreas: No abnormal FDG avidity or duct dilation. Adrenals: No FDG avid lesion right adrenal. No FDG avid lesion left adrenal. tract: Within the limitation of the physiologic FDG excretion no hydronephrosis or grossly hypermetabolic lesion. GI tract: Redemonstration of focal increased uptake in the gastroduodenal junction measuring approximately 1.8 x 1.0 seen with max SUV 4.6, similar prior max SUV. Small hiatal hernia. Other areas of uptake are favored to be physiologic or due to medication effect, which limits evaluation of underlying lesions. Lymph nodes: No abdominal or pelvic hypermetabolic lymphadenopathy. Mesentery/Peritoneum : No focal hypermetabolic lesion. Vasculature: Vascular patency cannot be assessed due to lack of IV contrast. There are atherosclerotic calcifications without aneurysmal dilation. Pelvis: No focal hypermetabolic lesion. Mildly enlarged prostate. Abdominopelvic wall: No hypermetabolic lesion. Fat-containing right inguinal hernia. MUSCULOSKELETAL: There are no hypermetabolic osseous lesions. Auto Service Instructor (topogram) images: No additional findings. IMPRESSION: Head and Neck: * No evidence of FDG avid neoplastic process Chest: * Improvement of the bilateral pulmonary nodules, as described. Findings may be secondary to improving inflammatory/infecti ous process versus therapy response. Recommend correlation with treatment history. * No new/worsening lesions. Abdomen and pelvis: * Persistent uptake at the distal stomach/proximal duodenum may be secondary to an underlying inflammatory process, although neoplastic etiology needs to be excluded. Recommend correlation with upper endoscopy, if not previously performed. Musculoskeletal: * No neoplastic hypermetabolic lesions NOTE: This report was created using voice recognition dictation software. If there is a concern for errors, please have the clinician contact the report author for clarification. Transcribe Date/Time: Apr 29 2023 11:36P Dictated by: LORRIE ARCE MD This examination was interpreted and the report reviewed and electronically signed by: LORRIE ARCE MD on Apr 30 2023 12:03AM EST Thank you for allowing us to participate in the care of your patient. Should there be any questions regarding this interpretation, plea (more content not included)... Normal [facility] Office Visiton 04-05-2023 Follow-up visit [id number] Alessio Burns 1950 M Date Provider Department Center 04/05/2023 SYDNIE FOFANA HILL Friedman Family History Problem Relation Age of Onset Diabetes Mother Heart disease Mother Heart disease Father Coronary artery disease Sister Family Status - Relation Status Age at Mother Father Sister Level of Service:76200 RI OFFICE/OUTPATIENT ESTABLISHED MOD MDM 30-[address] [facility] CNOVSPon 03-03-2023 CNOVSP Visit (SP) Office ([place]) ALESSIO BURNS ([id number]) 1950 M [employer] Date Time Provider Department 03/03/23 1:30 PM JAYA BAI During your visit today, we recorded the following information about you: Temperature Pulse Respiration Blood pressure 97.6 degrees 61/minute 16/minute 110/59 Weight Height 83.6 kg 1.676 m Jaya Bai MD 03/07/2023 12:24 PM Signed NAME: Alessio Burns CLINIC NO.: [id number] DATE OF SERVICE: March 03, 2023 (Zac) Some elements in this clinic note that are critical to medical decision making have been carefully reviewed and included from a prior clinic note dated: January 04, 2023 (Zac) Referring Provider: Dr. 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 He actually presented with an acute myocardial infarction and had to undergo CABG and aortic valve repair emergently in June 08, 2020. Subsequent work-up demonstrated malignancy with no evidence of metastatic disease and he underwent resection in July 2020 after he had recovered from his cardiac surgery. He was not a candidate for adjuvant therapy given his almost 6-month gap between resection and presentation to me. He remains at high risk because of tobacco use. Restaging is non-specific for recurrence of lung cancer but short interval CT's found a new liver lesion which then persisted through December 2021. He saw Dr. Mota for resection 01/10/2022 - benign findings of ciliated foregut cyst. Colonoscopy. Done for + Cologuard was negative. Dyspnea wheezing - uses a nebulizer but is still smoking. New bilateral lung nodules - could be infectious / inflammatory however have continued to grow on serial CT scans. While these are highly suspicious, I suspect that they are too small to attempt biopsy which have confirmed with Dr. Carter. Will obtain PET scanning and then continue serial CT evaluation. Will consider thoracic surgery referral for biopsy as suspicion increases. Additional changes on CT January 04, 2023 with some resolution but some with growth. February 2023 repeat PET/CT shows progression of multiple pulmonary nodules with one nodule in the left upper lobe measuring 1.7 x 0.9 cm subpleural previously 0.8 x 0.7 cm FDG avidity with max SUV of 2.8. He also has a 1.0 x 0.8 cm posterior right lower lobe nodule that was previously 0.8 x 0.7 cm max SUV of 1.8. Since SUV measurements are still fairly low, will obtain repeat PET/CT in 2 months and make an assessment on plan for biopsy. PLAN: PET/CT in 8 weeks and return after to review. HPI: Updated Visit, March 03, 2023: Alessio returns with his son during and his younger Sister Maria Teresa today. Overall he feels generally asymptomatic. 02/21/2023 PET/CT reviewed with images reviewed as well. This demonstrates interval increase in size and number of innumerable bilateral pulmonary nodules some of which demonstrate borderline FDG activity. His findings are most compatible with metastatic disease. Updated Visit, January 04, 2023: Good spirits - returns with younger sister Maria Teresa. CT images reviewed and will call regarding final read. 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 Recently, he was found to have a positive TB test and will need to undergo bronchoscopy with lavage and culture. I have encouraged him to get this set up with Dr. Lentz and have spoken with her as well. Updated Visit, October 07, 2022: Reviewed results of scans: PET with multiple foci of uptake most active in MOOKIE. Concerning for metastatic disease. Received discussion with Dr. Carter - lesions are too small to biopsy - may need surgical biopsy. Will likely need CT's in 8 weeks in serial fashion in order not to miss any evidence of growth. Updated Visit, September 15, 2022: Reviewed Repeat CT results with him - images and personal interpretation prior to official read indicate enlarging nodules. Discussion with Dr. Carter to consider biopsy vs. Continued observation yielded a decision to continue observation. I will get a baseline PET/CT. He is here with his son Bari. Updated Visit, July 21, 2022: Sister Maria Teresa with him today 07/14/2022 CT Chest - development of innumerable pulmonary nodules - infectous / inflammatory vs neoplastic. All below PE (more content not included)... Normal [facility] NM PET/CT SKULL-THIGH SUBQon 02-21-2023 NM PET/CT SKULL-THIGH SUBQ * * *Final Report* * * DATE OF EXAM: Feb 21 2023 12:35PM NRN [id number] - NM PET/CT SKULL-THIGH SUBQ / PROCEDURE REASON: Malignant neoplasm of unspecified part of unspecified bronchus or lung (HCC) * * * * Physician Interpretation * * * * RESULT: EXAM: NM PET/CT SKULL-THIGH SUBQ HISTORY: 72 years old Male with pulmonary adenocarcinoma diagnosed May 2020 resected July 2020. On surveillance with enlarging pulmonary nodules. INDICATION: Subsequent treatment strategy TECHNIQUE: 10.4 mCi of F18-FDG administered IV followed about 60 minutes later by PET imaging from eyes to proximal thighs. Free breathing low dose CT was performed without contrast for attenuation correction and anatomic localization. - Blood glucose before FDG injection: 105 mg/dL CT Dose-Length Product (DLP): 261 mGy*cm CT Dose Reduction Employed: Automated exposure control (AEC) COMPARISON: FDG PET/CT 09/30/2022 CORRELATION: CT chest abdomen and pelvis 01/04/2023 RESULTS: REFERENCES: SUV reference values: - Mediastinal blood pool activity (max SUV): 2.3 - Background liver activity (max SUV): 3.6 Auto Service Instructor (topogram) images: Unremarkable. HEAD AND NECK: Physiologic uptake in the visualized brain, extraocular muscles, parapharyngeal soft tissues, base of tongue, salivary glands, and vocal cords. Head and Neck: No focal tracer avid lesion. Lymph nodes: No tracer avid lymph nodes. Thyroid: No tracer avid lesion. CHEST: Lungs and Airways: Interval increase in size and number of bilateral innumerable pulmonary nodules with borderline FDG avidity, for example: * 1.7 x 0.9 cm subpleural left upper lobe nodule (4:101), max SUV 2.8, previously 0.8 x 0.7 cm * 1.0 x 0.8 cm posterior right lower lobe nodule (4:138), max SUV 1.8, previously 0.8 x 0.7 cm Please note, PET/CT is not sensitive for pulmonary nodules less than than 8 mm. Emphysematous changes. Pleura: No tracer avid lesion. No pleural effusion. Mediastinum: No tracer avid mass. Lymph Nodes: No tracer avid, enlarged lymph nodes. Cardiovascular: Physiologic blood pool and myocardial activity. Chest Wall: No tracer avid lesion. ABDOMEN AND PELVIS: Physiologic activity in the GI and tracts. Liver: Heterogeneous background activity without a focal tracer avid lesion. Biliary: Unremarkable gallbladder. Spleen: No tracer avid lesion. No splenomegaly. Pancreas: No tracer avid lesion. Adrenals: No tracer avid lesion. Kidneys: No focal tracer avid lesion No hydronephrosis or calculi. GI Tract: No focal tracer avid lesion. Small hiatal hernia. No dilated bowel. Colonic diverticulosis. Lymph Nodes: No tracer avid lymph nodes. Mesentery/Peritoneum : No tracer avid lesion. No ascites. Retroperitoneum: No tracer avid lesion. Vasculature: Atherosclerotic calcifications without an abdominal aortic aneurysm. Pelvis: No tracer avid lesion. Abdominal Wall: No tracer avid lesion. Fat-containing right inguinal hernia. BONES AND EXTREMITIES: No tracer avid lesion or suspicious osseous lesion. Multifocal degenerative osseous changes. IMPRESSION: HEAD/NECK: * No FDG avid neoplastic process. CHEST: * Interval increase in size and number of innumerable bilateral pulmonary nodules, some of which demonstrate borderline FDG avidity. Findings most compatible with metastases. * No new or enlarging FDG avid lymphadenopathy. ABDOMEN/PELVIS: * No FDG avid neoplastic process. BONES/EXTREMITIES: * No suspicious FDG avid osseous lesion. Transcribe Date/Time: Feb 22 2023 1:33P Dictated by: SANTIAGO SINGH MD This examination was interpreted and the report reviewed and electronically signed by: TENNILLE MUNOZ MD on Feb 22 2023 3:26PM EST Thank you for allowing us to participate in the care of your patient. Should there be any questions regarding this interpretation, please call [phone]. If you are unable to reach us at the number above, please feel free to contact [facility] at [phone]. [id number] CN Normal [facility] 36on 01-11-2023 36 Moderately dilated 4.4-4.8cm which is stable. Aortic valve looks good as well. Normal [facility] ECHOCARDIO M/2D COMPLETEon 0 01-06-2023 ECHOCARDIO M/2D COMPLETE Patient: ALESSIO BURNS Exam Date: 01/06/2023 : 1950 Gender:M Ordering : MRS. KUN ORTA RIPRAP MAN Admission #: [id number] Family : SHAIKH Tres ETIENNE . Order #: [id number] CLICK HERE TO VIEW EXAM ECHOCARDIOGRAM REPORT PROCEDURE: CARDIO PULMONARY ECHOCARDIO M/2D COMP INDICATIONS: Thoracic aneurysm, s/p aortic valve replacement, CABGx3 COMPARISON: None. DESCRIPTION: COMPLETE ECHOCARDIOGRAM Real-time transthoracic echocardiography with 2D, M-mode, spectral and color flow Doppler performed. QUALITY: Technical quality was good. LEFT VENTRICLE: Normal chamber size. Moderately increased left ventricular wall thickness. LV EF: Normal left ventricular ejection fraction, (>55%). DIASTOLIC: Normal diastolic function. ATRIAL SEPTUM: Visually appears intact. LEFT ATRIUM: Normal chamber size. RIGHT ATRIUM: Normal chamber size. RIGHT VENTRICLE: Normal chamber size. Normal right ventricular systolic function. TRICUSPID VALVE: Normal mobility and thickness. No stenosis with trivial regurgitation. MITRAL VALVE: Normal mobility and thickness. No evidence of mitral valve stenosis. There is no mitral annular calcification. No mitral regurgitation. AORTIC VALVE: Bio-Prosthetic valve appears well seated in the aortic position with normal Doppler flow. No aortic regurgitation. AORTIC ROOT: Aortic root is mildly dilated (4.1 cm). Ascending aorta is moderately dilated (4.4 to 4.8 cm). PULMONIC VALVE: Normal thickness and mobility. No stenosis. No regurgitation. PERICARDIUM: Anterior free space; trivial effusion versus fat pad. IVC: Collapses with inspirations. IVC is normal in size. CONCLUSION: 1. Global left ventricular systolic function is normal; visually estimated ejection fraction is 55 to 60%. No obvious wall motion abnormalities. 2. Moderately increased left ventricular wall thickness. 3. Right ventricle is normal in size and systolic function. 4. Normal diastolic function. 5. A bioprosthetic aortic valve is seen with normal Doppler flow. No significant aortic regurgitation. 6. The aortic root is mildly dilated. The ascending aorta is mild to moderately dilated. 7. Anterior free space; trivial effusion versus fat pad. Adult Echocardiography Procedure Report Left Ventricle LVEDD (3.7 - 5.6 cm): 4.62 cm LVESD (2.2 - 4.0 cm): 3.58 cm LVIVS thickness (0.6 - 1.2 cm): 1.46 cm LVPW thickness (0.5 - 1.0 cm): 1.29 cm e': 0.15 m/s E - e': 5.72 LVOT Max Gradient: 3.73 mm[Hg], 2.70 mm[Hg] Peak Velocity (LVOT): 0.97 m/s, 0.82 m/s Mean Velocity (LVOT): 0.64 m/s, 0.59 m/s LVOT Diameter 2.44 cm Left Atrium LA Volume Index (2D A2C): 58.03 ml, 58.03 ml Left Atrium Systolic Dimension: 3.96 cm Mitral Valve MV E to A Ratio: 0.99 Mitral Valve A-Wave Peak Velocity: 0.88 m/s Mitral Valve E-Wave Peak Velocity: 0.86 m/s Right Ventricle RV Internal Diastolic Dimension: 4.11 cm Aorta AO Root Diam: 4.10 cm Ascending Ao Diam: 3.98 cm Aortic Valve AoV Area (Peak Contreras): 1.73 cm2, 1.87 cm2 AoV Area (VTI): 1.91 cm2, 1.96 cm2 Peak Velocity(Antegrade Flow): 2.41 m/s Peak Gradient(Antegrade Flow): 23.24 mm[Hg] Mean Velocity(Antegrade Flow): 1.60 m/s Mean Gradient(Antegrade Flow): 11.88 mm[Hg] Velocity Time Integral: 54.96 cm Tricuspid Valve Peak Velocity: 0.64 m/s Pulmonic Valve Peak Velocity: 1.05 m/s, 1.11 m/s Peak Gradient: 4.43 mm[Hg], 4.94 mm[Hg] Right Atrium Right Atrium Systolic Pressure: 45.26 ml, 45.26 ml Dictated by: Pool Canales M.D. on 01/06/2023 at 16:30 Approved by: Pool Canales M.D. on 01/06/2023 at 16:36 Normal [facility] CBC W Auto Differential pane l (Bld)on 01-04-2023 Basophils (Bld) [#/Vol] 0.08 10*3/uL Normal <0.11 [facility] Comment on above: Order Comment: Speci men Type: BLOOD SPECIMENOrdering Facility: [facility] Address: [address] [place] [address] Performed By: #### 5 7021-8 ####[facility] LABCLIA [id number] [place] [address] Basophils/100 WBC (Bld) 0.8 % Normal [facility] Comment on above: Order Comment: Speci men Type: BLOOD SPECIMENOrdering Facility: [facility] Address: [address] [place] [address] Performed By: #### 5 7021-8 ####[facility] LABCLIA [id number] [place] [address] Differential cell count method Nom (Bld) Auto Normal [facility] Comment on above: Order Comment: Speci men Type: BLOOD SPECIMENOrdering Facility: [facility] Address: [address] [place] [address] Performed By: #### 5 7021-8 ####[facility] LABCLIA [id number] [place] [address] Eosinophils (Bld) [#/Vol] 0.34 10*3/uL Normal <0.46 [facility] Comment on above: Order Comment: Speci men Type: BLOOD SPECIMENOrdering Facility: [facility] Address: [address] [place] [address] Performed By: #### 5 7021-8 ####[facility] LABCLIA [id number] [place] [address] Eosinophils/100 WBC (Bld) 3.4 % Normal [facility] Comment on above: Order Comment: Speci men Type: BLOOD SPECIMENOrdering Facility: [facility] Address: [address] [address] Performed By: #### 5 7021-8 ####[facility] LABCLIA [id number] [place] [address] Erythrocyte distribution width (RBC) [Ratio] 13.2 % Normal 11.5-15.0 [facility] Comment on above: Order Comment: Speci men Type: BLOOD SPECIMENOrdering Facility: [facility] Address: [address] [place] [address] Performed By: #### 5 7021-8 ####[facility] LABCLIA [id number] [place] [address] Hematocrit (Bld) [Volume fraction] 40.6 % Normal 39.0-51.0 [facility] Comment on above: Order Comment: Speci men Type: BLOOD SPECIMENOrdering Facility: [facility] Address: [address] [place] [address] Performed By: #### 5 7021-8 ####[facility] LABIA [id number] [place] [address] Hemoglobin (Bld) [Mass/Vol] 13.4 g/dL Normal 13.0-17.0 [facility] Comment on above: Order Comment: Speci men Type: BLOOD SPECIMENOrdering Facility: [facility] Address: [address] [place] [address] Performed By: #### 5 7021-8 ####[facility] LABCLIA [id number] [place] [address] Immature granulocytes (Bld) [#/Vol] 0.06 10*3/uL Normal <0.10 [facility] Comment on above: Order Comment: Speci men Type: BLOOD SPECIMENOrdering Facility: [facility] Address: [address] [place] [address] Performed By: #### 5 7021-8 ####[facility] LABCLIA [id number] [place] [address] Immature granulocytes/100 WBC (Bld) 0.6 % Normal [facility] Comment on above: Order Comment: Speci men Type: BLOOD SPECIMENOrdering Facility: [facility] Address: [address] [place] [address] Performed By: #### 5 7021-8 ####[facility] LABCLIA [id number] [place] [address] Lymphocytes (Bld) [#/Vol] 1.72 10*3/uL Normal 1.00-4.00 [facility] Comment on above: Order Comment: Speci men Type: BLOOD SPECIMENOrdering Facility: [facility] Address: [address] [place] [address] Performed By: #### 5 7021-8 ####[facility] LABCLIA [id number] [place] [address] Lymphocytes/100 WBC (Bld) 17.1 % Normal [facility] Comment on above: Order Comment: Speci men Type: BLOOD SPECIMENOrdering Facility: [facility] Address: [address] [place] [address] Performed By: #### 5 7021-8 ####[facility] LABCLIA [id number] [place] [address] MCH (RBC) [Entitic mass] 30.0 pg Normal 26.0-34.0 [facility] Comment on above: Order Comment: Speci men Type: BLOOD SPECIMENOrdering Facility: [facility] Address: [address] [place] [address] Performed By: #### 5 7021-8 ####[facility] LABCLIA [id number] [place] [address] MCHC (RBC) [Mass/Vol] 33.0 g/dL Normal 30.5-36.0 [facility] Comment on above: Order Comment: Speci men Type: BLOOD SPECIMENOrdering Facility: [facility] Address: [address] [place] [address] Performed By: #### 5 7021-8 ####[facility] LABIA [id number] [place] [address] MCV (RBC) [Entitic vol] 91.0 fL Normal 80.0-100.0 C [facility] Comment on above: Order Comment: Speci men Type: BLOOD SPECIMENOrdering Facility: [facility] Address: [address] [place] [address] Performed By: #### 5 7021-8 ####[facility] LABIA [id number] [place] [address] Monocytes (Bld) [#/Vol] 1.14 10*3/uL High <0.87 [facility] Comment on above: Order Comment: Speci men Type: BLOOD SPECIMENOrdering Facility: [facility] Address: [address] [place] [address] Performed By: #### 5 7021-8 ####[facility] LABIA [id number] [place] [address] Monocytes/100 WBC (Bld) 11.3 % Normal C [facility] Comment on above: Order Comment: Speci men Type: BLOOD SPECIMENOrdering Facility: [facility] Address: [address] [place] [address] Performed By: #### 5 7021-8 ####[facility] LABCLIA [id number] [place] [address] Neutrophils (Bld) [#/Vol] 6.74 10*3/uL Normal 1.45-7.50 [facility] Comment on above: Order Comment: Speci men Type: BLOOD SPECIMENOrdering Facility: [facility] Address: [address] [place] [address] Performed By: #### 5 7021-8 ####[facility] LABCLIA [id number] [place] [address] Neutrophils/100 WBC (Bld) 66.8 % Normal [facility] Comment on above: Order Comment: Speci men Type: BLOOD SPECIMENOrdering Facility: [facility] Address: [address] [place] [address] Performed By: #### 5 7021-8 ####[facility] LABCLIA [id number] [place] [address] Nucleated RBC (Bld) [#/Vol] 10*3/uL Normal <0.01 [facility] Comment on above: Order Comment: Speci men Type: BLOOD SPECIMENOrdering Facility: [facility] Address: [address] [place] [address] Performed By: #### 5 7021-8 ####[facility] LABCLIA [id number] [place] [address] Nucleated RBC/100 WBC (Bld) [Ratio] 0.0 /100 WBC Normal [facility] Comment on above: Order Comment: Speci men Type: BLOOD SPECIMENOrdering Facility: [facility] Address: [address] [place] [address] Performed By: #### 5 7021-8 ####[facility] LABCLIA [id number] [place] [address] Platelet mean volume (Bld) [Entitic vol] 8.9 fL Low 9.0-12.7 [facility] Comment on above: Order Comment: Speci men Type: BLOOD SPECIMENOrdering Facility: [facility] Address: [address] [place] [address] Performed By: #### 5 7021-8 ####[facility] LABIA [id number] [place] [address] Platelets (Bld) [#/Vol] 261 10*3/uL Normal 150-400 [facility] Comment on above: Order Comment: Speci men Type: BLOOD SPECIMENOrdering Facility: [facility] Address: [address] [place], [place] [address] Performed By: #### 5 7021-8 ####[facility] LABIA [id number] [place] [address] RBC (Bld) [#/Vol] 4.46 10*6/uL Normal 4.20-6.00 [facility] Comment on above: Order Comment: Speci men Type: BLOOD SPECIMENOrdering Facility: [facility] Address: [address] Performed By: #### 5 7021-8 ####[facility] LABIA [id number] [place] [address] WBC (Bld) [#/Vol] 10.08 10*3/uL Normal 3.70-11.00 [facility] Comment on above: Order Comment: Speci men Type: BLOOD SPECIMENOrdering Facility: [facility] Address: [address] Performed By: #### 5 7021-8 ####[facility] LABIA [id number] [place] [address] CNOVSPon 01-04-2023 CNOVS Visit (SP) Office ([place]) ALESSIO BURNS ([id number]) 1950 M [place] Date Time Provider Department 01/04/23 2:00 PM JAYA BAI During your visit today, we recorded the following information about you: Temperature Pulse Respiration Blood pressure 97.5 degrees 59/minute 16/minute 139/62 Weight Height 85.5 kg 1.676 m Jaya Bai MD 01/08/2023 1:15 PM Signed NAME: Alessio Burns CLINIC NO.: [id number] DATE OF SERVICE: January 04, 2023 (Zac) Some elements in this clinic note that are critical to medical decision making have been carefully reviewed and included from a prior clinic note dated: November 22, 2022 AND October 07, 2022 (Zac) Referring Provider: Dr. 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 He actually presented with an acute myocardial infarction and had to undergo CABG and aortic valve repair emergently in June 08, 2020. Subsequent work-up demonstrated malignancy with no evidence of metastatic disease and he underwent resection in July 2020 after he had recovered from his cardiac surgery. He was not a candidate for adjuvant therapy given his almost 6-month gap between resection and presentation to hi. He remains at high risk because of tobacco use. Restaging is non-specific for recurrence of lung cancer but short interval CT's found a new liver lesion which then persisted through December 2021. He saw Dr. Mota for resection 01/10/2022 - benign findings of ciliated foregut cyst. Colonoscopy. Done for + Cologuard was negative. Dyspnea wheezing - uses a nebulizer but is still smoking. New bilateral lung nodules - could be infectious / inflammatory however have continued to grow on serial CT scans. While these are highly suspicious, I suspect that they are too small to attempt biopsy which have confirmed with Dr. Carter. Will obtain PET scanning and then continue serial CT evaluation. Will consider thoracic surgery referral for biopsy as suspicion increases. Additional changes on CT January 04, 2023 with some resolution but some with growth. Will repeat PET/CT PLAN: PET/CT in 6 weeks and return after to review. HPI: Updated Visit, January 04, 2023: Good spirits - returns with younger sister Maria Teresa. CT images reviewed and will call regarding final read. 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 Recently, he was found to have a positive TB test and will need to undergo bronchoscopy with lavage and culture. I have encouraged him to get this set up with Dr. Lentz and have spoken with her as well. Updated Visit, October 07, 2022: Reviewed results of scans: PET with multiple foci of uptake most active in MOOKIE. Concerning for metastatic disease. Received discussion with Dr. Carter - lesions are too small to biopsy - may need surgical biopsy. Will likely need CT's in 8 weeks in serial fashion in order not to miss any evidence of growth. Updated Visit, September 15, 2022: Reviewed Repeat CT results with him - images and personal interpretation prior to official read indicate enlarging nodules. Discussion with Dr. Carter to consider biopsy vs. Continued observation yielded a decision to continue observation. I will get a baseline PET/CT. He is here with his son Bari. Updated Visit, July 21, 2022: Sister Maria Teresa with him today 07/14/2022 CT Chest - development of innumerable pulmonary nodules - infectous / inflammatory vs neoplastic. All below PET range (7mm and less). He is at his baseline state of health. Labs unremarkable. Updated Visit, March 31, 2022: Bari son is with him today. He still smokes. Reviewed images with him personally. Scan results pending but preliminarily appear without concerning lesion and with left apical emphysema Updated Visit, March 02, 2022: Telephone only for 5 mins Called Alessio as requested. Reviewed findings of liver resection in 01/2022. Still complains of dyspnea but is still smoking. Will repeat CT chest in 3 - 4 weeks and have him return to review. He is in agreement. His sister Maria Teresa was on the phone as well. Updated Visit, December 17, 2021: Telephone only for 8 minutes Called as requested to discuss findings on liver CT showing subcapsular liver lesion that remains suspicious. disussed biopsy with him (more content not included)... Normal [facility] CT ABD/PEL W IVCONon 023 CT ABD/PEL W IVCON * * *Final Report* * * DATE OF EXAM: Jan 04 2023 1:47PM [facility] 0530 - CT ABD/PEL W IVCON / PROCEDURE REASON: multiple diagnoses * * * * Physician Interpretation * * * * RESULT: EXAMINATION: CT ABDOMEN AND PELVIS WITH IV CONTRAST CLINICAL HISTORY: History of lung cancer. TECHNIQUE: CT of the abdomen and pelvis was performed using standard technique, scanning from just above the dome of the diaphragm to the symphysis pubis. MQ: CTAP_3 Contrast: IV: 150 ml of Omnipaque 300 Oral: 500 ml of Omni 240 10-25ml diluted with water CT Radiation dose: Integrated Dose-length product (DLP) for this visit = 999 mGy*cm. CT Dose Reduction Employed: Automated exposure control (AEC) COMPARISON: CT performed 12/10/2021. PET/CT performed 09/30/2022 RESULT: Liver: Hypodensity along the margin of the hepatic dome (3:17) now measures 2.6 x 1.4 cm, previously 1.1 x 1.1 cm. No new hepatic lesions are visualized. Biliary: The gallbladder is unremarkable. No biliary ductal dilation is seen. Spleen: No mass. No splenomegaly. Pancreas: No mass or duct dilation. Adrenals: No mass. Kidneys: No mass, calculus or hydronephrosis. GI tract: There is a small hiatal hernia. The stomach is unremarkable. Small bowel is unremarkable without evidence of obstruction or wall thickening. The colon is unremarkable. Lymph nodes: Multiple subcentimeter retroperitoneal nodes are seen which are not enlarged by size criteria. Previously visualized portacaval node now measures 7 mm in short axis, stable. Previously described aortocaval node measures 5 mm, also stable. Mesentery/Peritoneum : No ascites or mass. Retroperitoneum: No mass. Vasculature: - Abdominal aorta and iliac arteries: Atherosclerotic calcifications without aneurysm. - Celiac and SMA: Patent without stenosis. - Portal venous system (SMV, splenic vein, portal vein and branches): Patent. - Hepatic veins: Patent. Pelvis: There is a large fat-containing right inguinal hernia. There is mild thickening of the urinary bladder, possibly due to bladder outlet obstruction/prostato megaly. No pelvic mass or fluid collection is seen. Bones/Soft Tissues: Multilevel degenerative changes noted in the lumbar spine. No destructive osseous lesions are seen. Superficial soft tissues are unremarkable. Lower thorax: A chest CT performed will be reported separately. Auto Service Instructor (topogram) images: No additional findings. IMPRESSION: 1. Interval increase in size of hypodensity along the margin of the hepatic dome, nonspecific. Of note, this was not FDG avid on prior PET/CT. No additional hepatic mass lesions are noted. Consider further evaluation with contrast-enhanced MRI. 2. No evidence of bulky abdominal or pelvic lymphadenopathy. 3. Stable appearance of bladder wall thickening, suggestive of chronic outlet obstruction. Transcribe Date/Time: Jan 05 2023 10:27A Dictated by: FABIÁN MARINA MD This examination was interpreted and the report reviewed and electronically signed by: FABIÁN MARINA MD on Jan 05 2023 11:28AM EST Thank you for allowing us to participate in the care of your patient. Should there be any questions regarding this interpretation, please call [phone]. If you are unable to reach us at the number above, please feel free to contact [facility]Radiology at [phone]. [id number] CN Normal [facility] CT CHEST W IVCONon CT CHEST W IVCON * * *Final Report* * * DATE OF EXAM: Jan 04 2023 1:47PM [facility] 0539 - CT CHEST W IVCON / PROCEDURE REASON: Malignant neoplasm of unspecified part of unspecified bronchus or lung (HCC) * * * * Physician Interpretation * * * * RESULT: EXAMINATION: CHEST CT WITH CONTRAST CLINICAL HISTORY: History of non-small cell lung cancer. Technique: Spiral CT acquisition of the chest from the thoracic inlet to the upper abdomen following IV contrast. MQ: [id number]_6 Contrast: 150 mL Omnipaque [address] Radiation dose: Integrated Dose-length product (DLP) for this visit = 999 mGy*cm CT Dose Reduction Employed: Automated exposure control (AEC) Comparison: CT chest performed 09/15/2022. PET/CT performed 09/30/2022 RESULT: Limitations: None. Lines, tubes, and devices: None. Lung parenchyma and airways: No lobar consolidation is visualized. There is mild centrilobular emphysema. Postsurgical changes are noted in keeping with right upper lobectomy. There are multiple bilateral pulmonary nodules which are overall increased in size when compared to prior exam. These include the following: Right middle lobe (4:40) 7 mm, new Right lower lobe (139) 7 mm, new Right lower lobe (4:47) 7 mm, previously 3 mm Right lower lobe (4:65) 8 mm, stable Right lower lobe (4:102) 13 x 8 mm, previously 4 mm Right lower lobe (4:115) 1.1 x 0.9 cm, previously 0.4 cm Left upper lobe (4:82) 7 mm, previously 5 mm Left upper lobe (4:83) 9 mm, previously 4 mm Left lower lobe (4:141) 6 mm, previously 4 mm Some of the previously visualized pulmonary nodules have resolved. The central airways are widely patent. Pleural space: No pleural effusion. No pleural thickening. Lower neck, lymph nodes, and mediastinum: The imaged thyroid gland is normal. No lymphadenopathy in the supraclavicular, axillary, mediastinal, or hilar regions. Heart, pericardium, and thoracic vessels: There is ectasia of the ascending thoracic aorta measuring up to 4.7 cm. The cardiac chambers are normal in size. Coronary artery atherosclerotic calcification is noted. No pericardial effusion or thickening. Bones and soft tissues: Degenerative changes are noted in the thoracic spine. There is been a prior median sternotomy. There is bilateral gynecomastia. Superficial soft tissues are otherwise unremarkable. Upper abdomen: A dedicated CT of the abdomen and pelvis was performed concurrently and is reported separately. Auto Service Instructor (topogram) images: No additional findings. IMPRESSION: 1. Multiple bilateral pulmonary nodules. Some of these have resolved, however others are either increased in size or new when compared to prior study. 2. No evidence of bulky intrathoracic adenopathy. Transcribe Date/Time: Jan 05 2023 9:56A Dictated by: FABIÁN MARINA MD This examination was interpreted and the report reviewed and electronically signed by: FABIÁN MARINA MD on Jan 05 2023 10:26AM EST Thank you for allowing us to participate in the care of your patient. Should there be any questions regarding this interpretation, please call [phone]. If you are unable to reach us at the number above, please feel free to contact [facility]Radiology at [phone]. [id number] CN Normal [facility] Comprehensive metabolic 2000 panelon 01-04-2023 Albumin [Mass/Vol] 4.1 g/dL Normal 3.9-4.9 [facility] Comment on above: Order Comment: Speci men Type: BLOOD SPECIMENOrdering Facility: [facility] Address: [address] [address] Performed By: #### 2 4323-8 ####[facility] LABCLIA [id number] [place] [address] ALP [Catalytic activity/Vol] 100 U/L Normal 38-113 [facility] Comment on above: Order Comment: Speci men Type: BLOOD SPECIMENOrdering Facility: [facility] Address: [address] [place] [address] Performed By: #### 2 4323-8 ####[facility] LABCLIA [id number] [place] [address] ALT [Catalytic activity/Vol] 8 U/L Low 10-54 [facility] Comment on above: Order Comment: Speci men Type: BLOOD SPECIMENOrdering Facility: [facility] Address: [address] [place] [address] Performed By: #### 2 4323-8 ####[facility] LABCLIA [id number] [place] [address] Anion gap [Moles/Vol] 7 mmol/L Low 9-18 [facility] Comment on above: Order Comment: Speci men Type: BLOOD SPECIMENOrdering Facility: [facility] Address: [address] [place] [address] Performed By: #### 2 4323-8 ####[facility] LABCLIA [id number] [place] [address] AST [Catalytic activity/Vol] 16 U/L Normal 14-40 [facility] Comment on above: Order Comment: Speci men Type: BLOOD SPECIMENOrdering Facility: [facility] Address: [address] [place] [address] Performed By: #### 2 4323-8 ####[facility] LABCLIA [id number] [place] [address] Bilirubin [Mass/Vol] 0.4 mg/dL Normal 0.2-1.3 [facility] Comment on above: Order Comment: Speci men Type: BLOOD SPECIMENOrdering Facility: [facility] Address: [address] [address] Performed By: #### 2 4323-8 ####[facility] LABCLIA [id number] [place] [address] Calcium [Mass/Vol] 9.2 mg/dL Normal 8.5-10.2 [facility] Comment on above: Order Comment: Speci men Type: BLOOD SPECIMENOrdering Facility: [facility] Address: [address] [place] [address] Performed By: #### 2 4323-8 ####[facility] LABCLIA [id number] [place] [address] Chloride [Moles/Vol] 104 mmol/L Normal 97-105 [facility] Comment on above: Order Comment: Speci men Type: BLOOD SPECIMENOrdering Facility: [facility] Address: [address] [address] Performed By: #### 2 4323-8 ####[facility] LABCLIA [id number] [place] [address] CO2 [Moles/Vol] 25 mmol/L Normal 22-30 [facility] Comment on above: Order Comment: Speci men Type: BLOOD SPECIMENOrdering Facility: [facility] Address: [address] [address] Performed By: #### 2 4323-8 ####[facility] LABCLIA [id number] [place] [address] Creatinine [Mass/Vol] 1.01 mg/dL Normal 0.73-1.22 [facility] Comment on above: Order Comment: Speci men Type: BLOOD SPECIMENOrdering Facility: [facility] Address: [address] [address] Performed By: #### 2 4323-8 ####[facility] LABCLIA [id number] [place] [address] ESTIMATED GLOMERULAR FILTRATION RATE 80 mL/min/1.73m??? Normal >=60 [facility] Comment on above: Order Comment: Derek krishnamurthy Type: BLOOD SPECIMENOrdering Facility: [facility] Address: [address] [place] [address] Result Comment: Karin mated Glomerular Filtration Rate (eGFR) is calculated using the 2020 CKD-EPI creatinine equation. This equation utilizes serum creatinine, sex, and age as parameters. The creatinine assay has traceable calibration to isotope dilution-mass spectrometry. Refer to KDIGO guidelines for clinical interpretation. In patients with unstable renal function, e.g. those with acute kidney injury, the eGFR may not accurately reflect actual GFR. Performed By: #### 2 4323-8 ####[facility] LABCLIA [id number] [place] [address] Glucose [Mass/Vol] 105 mg/dL High 74-99 [facility] Comment on above: Order Comment: Derek krishnamurthy Type: BLOOD SPECIMENOrdering Facility: [facility] Address: [address] [place] [address] Result Comment: The [place] Diabetes Association (ADA) provides guidance for cutoff values for fasting glucose and random glucose. The ADA defines fasting as no caloric intake for at least 8 hours. Fasting plasma glucose results between 100 to 125 mg/dL indicate increased risk for diabetes (prediabetes). Fasting plasma glucose results greater than or equal to 126 mg/dL meet the criteria for diagnosis of diabetes. In the absence of unequivocal hyperglycemia, results should be confirmed by repeat testing. In a patient with classic symptoms of hyperglycemia or hyperglycemic crisis, random plasma glucose results greater than or equal to 200 mg/dL meet the criteria for diagnosis of diabetes. Reference: Standards of Medical Care in Diabetes 2016, [place] Diabetes Association. Diabetes Care. 2016.39(Suppl 1). Performed By: #### 2 4323-8 ####[facility] LABCLIA [id number] [place] [address] Potassium [Moles/Vol] 4.0 mmol/L Normal 3.7-5.1 [facility] Comment on above: Order Comment: Speci men Type: BLOOD SPECIMENOrdering Facility: [facility] Address: [address] [place] [address] Performed By: #### 2 4323-8 ####[facility] LABCLIA [id number] [place] [address] Protein [Mass/Vol] 7.6 g/dL Normal 6.3-8.0 [facility] Comment on above: Order Comment: Speci men Type: BLOOD SPECIMENOrdering Facility: [facility] Address: [address] [place] [address] Performed By: #### 2 4323-8 ####[facility] LABCLIA [id number] [place] [address] Sodium [Moles/Vol] 136 mmol/L Normal 136-144 [facility] Comment on above: Order Comment: Speci men Type: BLOOD SPECIMENOrdering Facility: [facility] Address: [address] [place] [address] Performed By: #### 2 4323-8 ####[facility] LABCLIA [id number] [place] [address] Urea nitrogen [Mass/Vol] 12 mg/dL Normal 9-24 [facility] Comment on above: Order Comment: Speci men Type: BLOOD SPECIMENOrdering Facility: [facility] Address: [address] [place] [address] Performed By: #### 2 4323-8 ####[facility] LABCLIA [id number] [place] [address] Office Visiton 01-02-2023 Follow-up visit [id number] Alessio Burns 1950 M Date Provider Department Center 01/02/2023 [id number] JOHNSON CARD [facility] Family History Problem Relation Age of Onset Diabetes Mother Heart disease Mother Heart disease Father Coronary artery disease Sister Family Status - Relation Status Age at Mother Father Sister Level of Service:33234 [place] OFFICE/OUTPATIENT ESTABLISHED MOD MDM 30-39 MIN Reason for Visit and Comments: Follow-up [254032] - 6 mo f/u- concerns about aneurysm Normal [facility] CNPNon 11-22-2022 CNPN Telephone (NCCAP) ALESSIO BURNS ([id number]) 1950 [place] Date Time Provider Department 11/22/22 JAYA BAI During your visit today, we recorded the following information about you: Jeet Fortune Sec 11/22/2022 10:54 AM Addendum Jaya Bai MD P [facility] Clerical Pool Follow-up with Dr. Fatou Lentz for BAL and cultures in [place]. Please include pathology reports from 2020 for her to review. (Scanned on 01/12/2021) Cancel CT and visit with for tomorrow and reschedule them to 6 weeks further out please. Darleen: Called patient to reschedule appointment he doesn't understand why he has to, states Dr fam did not tell him this on the phone about tommorow. Also Katty can you please send over records to [facility] thanks! Jeet Fortune Sec 11/22/2022 11:29 AM Signed Patient called back states he is sorry he forgot and did r/s to requestd dates thank you Gale Pereira [facility] 11/22/2022 1:14 PM Signed Records faxed to Dr. Lentz. Karen Sanchez Pss 11/23/2022 9:[address] Lentz office spoke with Russel. He states they have received this referral and have patient scheduled with Dr Lentz at their [place] office on 02/02 @ 2:30. Karen Sanchez Pss Allergies As of Date: 11/22/2022 (No Known Allergies) Date Reviewed: 10/07/2022 Reviewed by: Jane Gilmore MA - Fully Assessed Reason for Visit: Appointment Confirmation [[id number]] Prescriptions as of 11/29/2022 - GOPAL TAPIATA 200-62.5-25 mcg inhalation powder INHALE 1 PUFF BY MOUTH DAILY - penicillin V potassium (V-CILLIN, VEETIDS) 500 mg tablet Take 500 mg by mouth four times daily. - oxyCODONE-acetaminop hen (PERCOCET) 5-325 mg tablet TAKE 1 TABLET BY MOUTH EVERY 12 HOURS NEEDED FOR PAIN - traZODone (DESYREL) 100 mg tablet Take 100 mg by mouth once daily. - potassium chloride ER (K-DUR, KLOR-CON) 20 mEq tablet Take 20 mEq by mouth once daily. - levoFLOXacin (LEVAQUIN) 750 mg tablet Take 750 mg by mouth once daily. - predniSONE (DELTASONE) 20 mg tablet Take 40 mg by mouth daily with food. - amLODIPine (NORVASC) 10 mg tablet Take 10 mg by mouth once daily. - Nebulizer and Compressor For Neb 1 Each three times daily as needed. - Albuterol Sulfate 1.25 mg/3 mL nebulizer solution Use 1 Ampule via nebulizer every 6 hours as needed for wheezing/shortness of breath. - sildenafil (VIAGRA) 25 mg tablet sildenafil 25 mg tablet TAKE 1 TABLET BY MOUTH 30 MINUTES BEFORE sexual activity - busPIRone (BUSPAR) 15 mg tablet Take 15 mg by mouth three times daily. - budesonide-formotero l (SYMBICORT) 160-4.5 mcg/actuation inhaler Symbicort 160 mcg-4.5 mcg/actuation HFA aerosol inhaler INHALE 2 PUFFS BY MOUTH TWICE DAILY - albuterol HFA (PROVENTIL HFA, VENTOLIN HFA) 90 mcg/actuation inhaler albuterol sulfate HFA 90 mcg/actuation aerosol inhaler INHALE 2 PUFFS BY MOUTH EVERY 4 TO 6 HOURS NEEDED for shortness of breath and FOR WHEEZING - aspirin, enteric coated (ASPIRIN, ENTERIC COATED) 81 mg EC tablet q 24 HR. - atorvastatin (LIPITOR) 40 mg tablet atorvastatin 40 mg tablet TAKE 1 TABLET BY MOUTH AT BEDTIME - clopidogrel (PLAVIX) 75 mg tablet clopidogrel 75 mg tablet TAKE 1 TABLET BY MOUTH ONCE DAILY - furosemide (LASIX) 40 mg tablet furosemide 40 mg tablet TAKE 1 TABLET BY MOUTH DAILY - metoprolol succinate ER (TOPROL XL) 50 mg 24 hr tablet metoprolol succinate ER 50 mg tablet,extended release 24 hr TAKE 1 TABLET BY MOUTH EVERY DAY - nitroglycerin sublingual (NITROQUICK) 0.4 mg SL tablet nitroglycerin 0.4 mg sublingual tablet DISSOLVE 1 TABLET UNDER THE TONGUE NEEDED FOR CHEST PAIN- MAY REPEAT EVERY 5 MINUTES IF NEEDED ( MAX 3 DOSES.- IF NO RELIEF CALL 911) - sacubitril-valsartan (ENTRESTO) 97-103 mg tablet Entresto 97 mg-103 mg tablet TAKE 1 TABLET BY MOUTH TWICE DAILY Problem List As Of Date 11/22/2022 Noted Resolved Cancer of trachea, bronchus, and lung (HCC) [C3*10/29/2021 Coronary arteriosclerosis [I25.10] 01/05/2022 Chronic diastolic CHF (congestive heart failure*01/05/2022 Aortic valve stenosis [I35.0] 01/05/2022 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] 01/05/2022 Acute thrombus of left ventricle (HCC) [I24.0] 01/05/2022 Aortic valve replaced [Z95.2] 01/05/2022 Carotid artery stenosis [I65.29] 01/05/2022 Lung nodules [R91.8] 01/05/2022 Hx of CABG [Z95.1] 01/05/2022 HTN (hypertension) [I10] 01/05/2022 Smoker [F17.200] 01/05/2022 COPD (chronic obstructive pulmonary disease) (H*01/05/2022 HLD (hyperlipidemia) [E78.5] 01/05/2022 Depression [F32.A] 01/05/2022 Panlobular emphysema (HCC) [J43.1] 07/21/2022 Encounter Status:Closed by JEET HOOVER on 11/29/22 [facility] 11-01-2022 [place] Telephone ([facility]) ALESSIO BURNS ([id number]) 1950 [address] [place]* Date Time Provider Department 11/01/22 JAYA BAI During your visit today, we recorded the following information about you: Gale Purcell Randall [facility] 11/01/2022 1:22 PM Signed Updated notes and scans faxed to Dr. Lentz. Allergies As of Date: 11/01/2022 (No Known Allergies) Date Reviewed: 10/07/2022 Reviewed by: Jane Gilmore MA - Fully Assessed Reason for Visit: Records faxed [Other] Prescriptions as of 11/01/2022 - TRELEGY ELLIPTA 200-62.5-25 mcg inhalation powder INHALE 1 PUFF BY MOUTH DAILY - penicillin V potassium (V-CILLIN, VEETIDS) 500 mg tablet Take 500 mg by mouth four times daily. - oxyCODONE-acetaminop hen (PERCOCET) 5-325 mg tablet TAKE 1 TABLET BY MOUTH EVERY 12 HOURS NEEDED FOR PAIN - traZODone (DESYREL) 100 mg tablet Take 100 mg by mouth once daily. - potassium chloride ER (K-DUR, KLOR-CON) 20 mEq tablet Take 20 mEq by mouth once daily. - levoFLOXacin (LEVAQUIN) 750 mg tablet Take 750 mg by mouth once daily. - predniSONE (DELTASONE) 20 mg tablet Take 40 mg by mouth daily with food. - amLODIPine (NORVASC) 10 mg tablet Take 10 mg by mouth once daily. - Nebulizer and Compressor For Neb 1 Each three times daily as needed. - Albuterol Sulfate 1.25 mg/3 mL nebulizer solution Use 1 Ampule via nebulizer every 6 hours as needed for wheezing/shortness of breath. - sildenafil (VIAGRA) 25 mg tablet sildenafil 25 mg tablet TAKE 1 TABLET BY MOUTH 30 MINUTES BEFORE sexual activity - busPIRone (BUSPAR) 15 mg tablet Take 15 mg by mouth three times daily. - budesonide-formotero l (SYMBICORT) 160-4.5 mcg/actuation inhaler Symbicort 160 mcg-4.5 mcg/actuation HFA aerosol inhaler INHALE 2 PUFFS BY MOUTH TWICE DAILY - albuterol HFA (PROVENTIL HFA, VENTOLIN HFA) 90 mcg/actuation inhaler albuterol sulfate HFA 90 mcg/actuation aerosol inhaler INHALE 2 PUFFS BY MOUTH EVERY 4 TO 6 HOURS NEEDED for shortness of breath and FOR WHEEZING - aspirin, enteric coated (ASPIRIN, ENTERIC COATED) 81 mg EC tablet q 24 HR. - atorvastatin (LIPITOR) 40 mg tablet atorvastatin 40 mg tablet TAKE 1 TABLET BY MOUTH AT BEDTIME - clopidogrel (PLAVIX) 75 mg tablet clopidogrel 75 mg tablet TAKE 1 TABLET BY MOUTH ONCE DAILY - furosemide (LASIX) 40 mg tablet furosemide 40 mg tablet TAKE 1 TABLET BY MOUTH DAILY - metoprolol succinate ER (TOPROL XL) 50 mg 24 hr tablet metoprolol succinate ER 50 mg tablet,extended release 24 hr TAKE 1 TABLET BY MOUTH EVERY DAY - nitroglycerin sublingual (NITROQUICK) 0.4 mg SL tablet nitroglycerin 0.4 mg sublingual tablet DISSOLVE 1 TABLET UNDER THE TONGUE NEEDED FOR CHEST PAIN- MAY REPEAT EVERY 5 MINUTES IF NEEDED ( MAX 3 DOSES.- IF NO RELIEF CALL 911) - sacubitril-valsartan (ENTRESTO) 97-103 mg tablet Entresto 97 mg-103 mg tablet TAKE 1 TABLET BY MOUTH TWICE DAILY Problem List As Of Date 11/01/2022 Noted Resolved Cancer of trachea, bronchus, and lung (HCC) [C3*10/29/2021 Coronary arteriosclerosis [I25.10] 01/05/2022 Chronic diastolic CHF (congestive heart failure*01/05/2022 Aortic valve stenosis [I35.0] 01/05/2022 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] 01/05/2022 Acute thrombus of left ventricle (HCC) [I24.0] 01/05/2022 Aortic valve replaced [Z95.2] 01/05/2022 Carotid artery stenosis [I65.29] 01/05/2022 Lung nodules [R91.8] 01/05/2022 Hx of CABG [Z95.1] 01/05/2022 HTN (hypertension) [I10] 01/05/2022 Smoker [F17.200] 01/05/2022 COPD (chronic obstructive pulmonary disease) (H*01/05/2022 HLD (hyperlipidemia) [E78.5] 01/05/2022 Depression [F32.A] 01/05/2022 Panlobular emphysema (HCC) [J43.1] 07/21/2022 Encounter Status:Closed by GALE ODEN on 11/01/22 Normal [facility] Comprehensive metabolic 2000 panelon 10-08-2022 Albumin [Mass/Vol] 4.1 g/dL 3.9 - 4.9 g/dL [facility] ALP [Catalytic activity/Vol] 87 U/L 38 - 113 U/L [facility] ALT [Catalytic activity/Vol] 11 U/L 10 - 54 U/L [facility] Anion gap [Moles/Vol] 12 mmol/L 9 - 18 mmol/L [facility] AST [Catalytic activity/Vol] 18 U/L 14 - 40 U/L [facility] Bilirubin [Mass/Vol] 0.3 mg/dL 0.2 - 1 .3 mg/dL [facility] Calcium [Mass/Vol] 9.6 mg/dL 8.5 - 10. 2 mg/dL [facility] Chloride [Moles/Vol] 102 mmol/L 97 - 10 5 mmol/L [facility] CO2 [Moles/Vol] 24 mmol/L 22 - 30 mmol/L [facility] Creatinine [Mass/Vol] 1.12 mg/dL 0.73 - 1.22 mg/dL [facility] Estimated Glomerular Filtration Rate 70 mL/min/1.73m >=60 mL/min/1.73m [facility] Glucose [Mass/Vol] 85 mg/dL 74 - 99 mg/dL [facility] Potassium [Moles/Vol] 4.4 mmol/L 3.7 - 5.1 mmol/L [facility] Protein [Mass/Vol] 7.5 g/dL 6.3 - 8.0 g/dL [facility] Sodium [Moles/Vol] 138 mmol/L 136 - 144 mmol/L [facility] Urea nitrogen [Mass/Vol] 16 mg/dL 9 - 24 mg/dL [facility] CBC W Auto Differential pane l (Bld)on 10-07-2022 Basophils (Bld) [#/Vol] 0.06 10*3/uL Normal <0.11 [facility] Comment on above: Order Comment: Speci men Type: BLOOD SPECIMENOrdering Facility: [facility] Address: [address] [address] Performed By: #### 5 7021-8 ####[facility] LABCLIA [id number] [place] [address] Basophils/100 WBC (Bld) 0.6 % Normal [facility] Comment on above: Order Comment: Speci men Type: BLOOD SPECIMENOrdering Facility: [facility] Address: [address] [address] Performed By: #### 5 7021-8 ####[facility] LABCLIA [id number] [place] [address] Differential cell count method Nom (Bld) Auto Normal [facility] Comment on above: Order Comment: Speci men Type: BLOOD SPECIMENOrdering Facility: [facility] Address: [address] [address] Performed By: #### 5 7021-8 ####[facility] LABCLIA [id number] [place] [address] Eosinophils (Bld) [#/Vol] 0.48 10*3/uL High <0.46 [facility] Comment on above: Order Comment: Speci men Type: BLOOD SPECIMENOrdering Facility: [facility] Address: [address] [address] Performed By: #### 5 7021-8 ####[facility] LABCLIA [id number] [place] [address] Eosinophils/100 WBC (Bld) 4.8 % Normal [facility] Comment on above: Order Comment: Speci men Type: BLOOD SPECIMENOrdering Facility: [facility] Address: [address] [place] [address] Performed By: #### 5 7021-8 ####[facility] LABCLIA [id number] [place] [address] Erythrocyte distribution width (RBC) [Ratio] 13.0 % Normal 11.5-15.0 [facility] Comment on above: Order Comment: Speci men Type: BLOOD SPECIMENOrdering Facility: [facility] Address: [address] [place] [address] Performed By: #### 5 7021-8 ####[facility] LABCLIA [id number] [place] [address] Hematocrit (Bld) [Volume fraction] 37.6 % Low 39.0-51.0 [facility] Comment on above: Order Comment: Speci men Type: BLOOD SPECIMENOrdering Facility: [facility] Address: [address] [place] [address] Performed By: #### 5 7021-8 ####[facility] LABCLIA [id number] [place] [address] Hemoglobin (Bld) [Mass/Vol] 12.4 g/dL Low 13.0-17.0 [facility] Comment on above: Order Comment: Speci men Type: BLOOD SPECIMENOrdering Facility: [facility] Address: [address] [place] [address] Performed By: #### 5 7021-8 ####[facility] LABCLIA [id number] [place] [address] Immature granulocytes (Bld) [#/Vol] 0.05 10*3/uL Normal <0.10 [facility] Comment on above: Order Comment: Speci men Type: BLOOD SPECIMENOrdering Facility: [facility] Address: [address] [place] [address] Performed By: #### 5 7021-8 ####[facility] LABCLIA [id number] [place] [address] Immature granulocytes/100 WBC (Bld) 0.5 % Normal [facility] Comment on above: Order Comment: Speci men Type: BLOOD SPECIMENOrdering Facility: [facility] Address: [address] [place] [address] Performed By: #### 5 7021-8 ####[facility] LABCLIA [id number] [place] [address] Lymphocytes (Bld) [#/Vol] 1.94 10*3/uL Normal 1.00-4.00 [facility] Comment on above: Order Comment: Speci men Type: BLOOD SPECIMENOrdering Facility: [facility] Address: [address] [place] [address] Performed By: #### 5 7021-8 ####[facility] LABCLIA [id number] [place] [address] Lymphocytes/100 WBC (Bld) 19.4 % Normal [facility] Comment on above: Order Comment: Speci men Type: BLOOD SPECIMENOrdering Facility: [facility] Address: [address] [place] [address] Performed By: #### 5 7021-8 ####[facility] LABIA [id number] [place] [address] MCH (RBC) [Entitic mass] 30.3 pg Normal 26.0-34.0 [facility] Comment on above: Order Comment: Speci men Type: BLOOD SPECIMENOrdering Facility: [facility] Address: [address] [place] [address] Performed By: #### 5 7021-8 ####[facility] LABCLIA [id number] [place] [address] MCHC (RBC) [Mass/Vol] 33.0 g/dL Normal 30.5-36.0 [facility] Comment on above: Order Comment: Speci men Type: BLOOD SPECIMENOrdering Facility: [facility] Address: [address] [place] [address] Performed By: #### 5 7021-8 ####[facility] LABIA [id number] [place] [address] MCV (RBC) [Entitic vol] 91.9 fL Normal 80.0-100.0 [facility] Comment on above: Order Comment: Speci men Type: BLOOD SPECIMENOrdering Facility: [facility] Address: [address] [address] Performed By: #### 5 7021-8 ####[facility] LABCLIA [id number] [place] [address] Monocytes (Bld) [#/Vol] 1.24 10*3/uL High <0.87 [facility] Comment on above: Order Comment: Speci men Type: BLOOD SPECIMENOrdering Facility: [facility] Address: [address] [address] Performed By: #### 5 7021-8 ####[facility] LABCLIA [id number] [place] [address] Monocytes/100 WBC (Bld) 12.4 % Normal [facility] Comment on above: Order Comment: Speci men Type: BLOOD SPECIMENOrdering Facility: [facility] Address: [address] Performed By: #### 5 7021-8 ####[facility] LABCLIA [id number] [place] [address] Neutrophils (Bld) [#/Vol] 6.22 10*3/uL Normal 1.45-7.50 [facility] Comment on above: Order Comment: Speci men Type: BLOOD SPECIMENOrdering Facility: [facility] Address: [address] Performed By: #### 5 7021-8 ####[facility] LABCLIA [id number] [place] [address] Neutrophils/100 WBC (Bld) 62.3 % Normal [facility] Comment on above: Order Comment: Speci men Type: BLOOD SPECIMENOrdering Facility: [facility] Address: [address] Performed By: #### 5 7021-8 ####[facility] LABCLIA [id number] [place] [address] Nucleated RBC (Bld) [#/Vol] 10*3/uL Normal <0.01 [facility] Comment on above: Order Comment: Speci men Type: BLOOD SPECIMENOrdering Facility: [facility] Address: [address] [place] [address] Performed By: #### 5 7021-8 ####[facility] LABCLIA [id number] [place] [address] Nucleated RBC/100 WBC (Bld) [Ratio] 0.0 /100 WBC Normal [facility] Comment on above: Order Comment: Speci men Type: BLOOD SPECIMENOrdering Facility: [facility] Address: [address] [place] [address] Performed By: #### 5 7021-8 ####[facility] LABIA [id number] [place] [address] Platelet mean volume (Bld) [Entitic vol] 8.9 fL Low 9.0-12.7 [facility] Comment on above: Order Comment: Speci men Type: BLOOD SPECIMENOrdering Facility: [facility] Address: [address] [place] [address] Performed By: #### 5 7021-8 ####[facility] LABCLIA [id number] [place] [address] Platelets (Bld) [#/Vol] 230 10*3/uL Normal 150-400 [facility] Comment on above: Order Comment: Speci men Type: BLOOD SPECIMENOrdering Facility: [facility] Address: [address] [place] [address] Performed By: #### 5 7021-8 ####[facility] LABCLIA [id number] [place] [address] RBC (Bld) [#/Vol] 4.09 10*6/uL Low 4.20-6.00 [facility] Comment on above: Order Comment: Speci men Type: BLOOD SPECIMENOrdering Facility: [facility] Address: [address] [address] Performed By: #### 5 7021-8 ####[facility] LABCLIA [id number] [place] [address] WBC (Bld) [#/Vol] 9.99 10*3/uL Normal 3.70-11.00 [facility] Comment on above: Order Comment: Speci men Type: BLOOD SPECIMENOrdering Facility: [facility] Address: [address] [address] Performed By: #### 5 7021-8 ####[facility] LABCLIA [id number] [place] [address] Basophils (Bld) [#/Vol] 0.06 10*3/uL <0.11 k/uL [facility] Basophils/100 WBC (Bld) 0.6 % [facility] Differential cell count method Nom (Bld) Auto [facility] Eosinophils (Bld) [#/Vol] 0.48 10*3/uL High <0.46 k/uL [facility] Eosinophils/100 WBC (Bld) 4.8 % [facility] Erythrocyte distribution width (RBC) [Ratio] 13.0 % 11.5 - 15.0 % [facility] Hematocrit (Bld) [Volume fraction] 37.6 % Low 39.0 - 51.0 % [facility] Hemoglobin (Bld) [Mass/Vol] 12.4 g/dL Low 13.0 - 17.0 g/dL [facility] Immature granulocytes (Bld) [#/Vol] 0.05 10*3/uL <0.10 k/uL [facility] Immature granulocytes/100 WBC (Bld) 0.5 % [facility] Lymphocytes (Bld) [#/Vol] 1.94 10*3/uL 1.00 - 4.00 k/uL [facility] Lymphocytes/100 WBC (Bld) 19.4 % [facility] MCH (RBC) [Entitic mass] 30.3 pg 26.0 - 34.0 pg [facility] MCHC (RBC) [Mass/Vol] 33.0 g/dL 30.5 - 36.0 g/dL [facility] MCV (RBC) [Entitic vol] 91.9 fL 80.0 - 100.0 fL [facility] Monocytes (Bld) [#/Vol] 1.24 10*3/uL High <0.87 k/uL [facility] Monocytes/100 WBC (Bld) 12.4 % C [facility] Neutrophils (Bld) [#/Vol] 6.22 10*3/uL 1.45 - 7.50 k/uL [facility] Neutrophils/100 WBC (Bld) 62.3 % [facility] Nucleated RBC (Bld) [#/Vol] <0.01 k/uL [facility] Nucleated RBC/100 WBC (Bld) [Ratio] 0.0 /100 WBC [facility] Platelet mean volume (Bld) [Entitic vol] 8.9 fL Low 9.0 - 12.7 fL [facility] Platelets (Bld) [#/Vol] 230 10*3/uL 150 - 400 k/uL [facility] RBC (Bld) [#/Vol] 4.09 10*6/uL Low 4.20 - 6.0 0 m/uL [facility] WBC (Bld) [#/Vol] 9.99 10*3/uL 3.70 - 11. 00 k/uL [facility] CNOVSPon 10-07-2022 CNOVSP Visit (SP) Office ([place]) ALESSIO BURNS ([id number]) 1950 M [place] Date Time Provider Department 10/07/22 3:30 PM JAYA BAI During your visit today, we recorded the following information about you: Temperature Pulse Respiration Blood pressure 97.8 degrees 52/minute 16/minute 124/52 Weight Height 86.5 kg 1.676 m Jaya Bai MD 10/18/2022 6:12 PM Signed NAME: Alessio Burns CLINIC NO.: [id number] DATE OF SERVICE: October 07, 2022 ([email or web address]) Some elements in this clinic note that are critical to medical decision making have been carefully reviewed and included from a prior clinic note dated: September 15, 2022 (Zac) Referring Provider: Dr. 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 He actually presented with an acute myocardial infarction and had to undergo CABG and aortic valve repair emergently in June 08, 2020. Subsequent work-up demonstrated malignancy with no evidence of metastatic disease and he underwent resection in July 2020 after he had recovered from his cardiac surgery. He was not a candidate for adjuvant therapy given his almost 6-month gap between resection and presentation to me. He remains at high risk because of tobacco use. Restaging is non-specific for recurrence of lung cancer but short interval CT's found a new liver lesion which then persisted through December 2021. He saw Dr. Mota for resection 01/10/2022 - benign findings of ciliated foregut cyst. Colonoscopy. Done for + Cologuard was negative. Dyspnea wheezing - uses a nebulizer but is still smoking. New bilateral lung nodules - could be infectious / inflammatory however have continued to grow on serial CT scans. While these are highly suspicious, I suspect that they are too small to attempt biopsy which have confirmed with Dr. Carter. Will obtain PET scanning and then continue serial CT evaluation. Will consider thoracic surgery referral for biopsy as suspicion increases. PLAN: Keep plans for CT's in 8 weeks as scheduled and follow up with me in November afterwards. HPI: Updated Visit, October 07, 2022: Reviewed results of scans: PET with multiple foci of uptake most active in MOOKIE. Concerning for metastatic disease. Received discussion with Dr. Carter - lesions are too small to biopsy - may need surgical biopsy. Will likely need CT's in 8 weeks in serial fashion in order not to miss any evidence of growth. Updated Visit, September 15, 2022: Reviewed Repeat CT results with him - images and personal interpretation prior to official read indicate enlarging nodules. Discussion with Dr. Carter to consider biopsy vs. Continued observation yielded a decision to continue observation. I will get a baseline PET/CT. He is here with his son Bari. Updated Visit, July 21, 2022: Sister Maria Teresa with him today 07/14/2022 CT Chest - development of innumerable pulmonary nodules - infectous / inflammatory vs neoplastic. All below PET range (7mm and less). He is at his baseline state of health. Labs unremarkable. Updated Visit, March 31, 2022: Bari son is with him today. He still smokes. Reviewed images with him personally. Scan results pending but preliminarily appear without concerning lesion and with left apical emphysema Updated Visit, March 02, 2022: Telephone only for 5 mins Called Alessio as requested. Reviewed findings of liver resection in 01/2022. Still complains of dyspnea but is still smoking. Will repeat CT chest in 3 - 4 weeks and have him return to review. He is in agreement. His sister Maria Teresa was on the phone as well. Updated Visit, December 17, 2021: Telephone only for 8 minutes Called as requested to discuss findings on liver CT showing subcapsular liver lesion that remains suspicious. disussed biopsy with him and he is agreeable. Updated Visit, October 29, 2021: Got COVID in September and was fairly sick - still has night sweats. Recovering but still has poor appetitie. His scans demonstrate a small liver lesion and multple mesenteric lymphnodes. I will follow these given the recent COVID infection. His sister Purvi is with him today. Updated Visit, June 25, 2021: Alessio Burns returns for follow up. There has been no significant medical changes since his last visit. He has a chronic cough and shortness of breath. He continues to smoke. He denies any unusual pain. He had a few episodes of sharp abdominal pain for the last 2 weeks. He states that the pain is on his right side just below his liver. The patient states that he does not consume alcohol. He has occasional constipation. He also stat (more content not included)... Normal [facility] Comprehensive metabolic 2000 panelon 10-07-2022 Albumin [Mass/Vol] 4.1 g/dL Normal 3.9-4.9 [facility] Comment on above: Order Comment: Speci men Type: BLOOD SPECIMENOrdering Facility: [facility] Address: [address] Performed By: #### 2 4323-8 ####[facility] LABCLIA [id number] [place] [address] [place] ALP [Catalytic activity/Vol] 87 U/L Normal 38-113 [facility] Comment on above: Order Comment: Speci men Type: BLOOD SPECIMENOrdering Facility: [facility] Address: [address] Performed By: #### 2 4323-8 ####[facility] LABCLIA [id number] [place] [address] [place] ALT [Catalytic activity/Vol] 11 U/L Normal 10-54 [facility] Comment on above: Order Comment: Speci men Type: BLOOD SPECIMENOrdering Facility: [facility] Address: [address] [place], [place] [address] Performed By: #### 2 4323-8 ####[facility] LABCLIA [id number] [place] [address] [place] Anion gap [Moles/Vol] 12 mmol/L Normal 9-18 [facility] Comment on above: Order Comment: Speci men Type: BLOOD SPECIMENOrdering Facility: [facility] Address: [address] Performed By: #### 2 4323-8 ####[facility] LABCLIA [id number] [place] [address] [place] AST [Catalytic activity/Vol] 18 U/L Normal 14-40 [facility] Comment on above: Order Comment: Speci men Type: BLOOD SPECIMENOrdering Facility: [facility] Address: [address] Performed By: #### 2 4323-8 ####[facility] LABCLIA [id number] [place] [address] [place] Bilirubin [Mass/Vol] 0.3 mg/dL Normal 0.2-1.3 [facility] Comment on above: Order Comment: Speci men Type: BLOOD SPECIMENOrdering Facility: [facility] Address: [address] [place] [address] Performed By: #### 2 4323-8 ####[facility] LABCLIA [id number] [place] [address] [place] Calcium [Mass/Vol] 9.6 mg/dL Normal 8.5-10.2 [facility] Comment on above: Order Comment: Speci men Type: BLOOD SPECIMENOrdering Facility: [facility] Address: [address] [place] [address] Performed By: #### 2 4323-8 ####[facility] LABCLIA [id number] [place] [address] [place] Chloride [Moles/Vol] 102 mmol/L Normal 97-105 [facility] Comment on above: Order Comment: Speci men Type: BLOOD SPECIMENOrdering Facility: [facility] Address: [address] [place] [address] Performed By: #### 2 4323-8 ####[facility] LABCLIA [id number] [place] [address] [place] CO2 [Moles/Vol] 24 mmol/L Normal 22-30 [facility] Comment on above: Order Comment: Speci men Type: BLOOD SPECIMENOrdering Facility: [facility] Address: [address] [place], [place] [address] Performed By: #### 2 4323-8 ####[facility] LABCLIA [id number] [place] [address] [place] Creatinine [Mass/Vol] 1.12 mg/dL Normal 0.73-1.22 [facility] Comment on above: Order Comment: Speci men Type: BLOOD SPECIMENOrdering Facility: [facility] Address: [address] [address] Performed By: #### 2 4323-8 ####[facility] LABIA [id number] [address] [place] ESTIMATED GLOMERULAR FILTRATION RATE 70 mL/min/1.73m??? Normal >=60 [facility] Comment on above: Order Comment: Derek krishnamurthy Type: BLOOD SPECIMENOrdering Facility: [facility] Address: [address] [place] [address] Result Comment: Karin mated Glomerular Filtration Rate (eGFR) is calculated using the 2020 CKD-EPI creatinine equation. This equation utilizes serum creatinine, sex, and age as parameters. The creatinine assay has traceable calibration to isotope dilution-mass spectrometry. Refer to KDIGO guidelines for clinical interpretation. In patients with unstable renal function, e.g. those with acute kidney injury, the eGFR may not accurately reflect actual GFR. Performed By: #### 2 4323-8 ####[facility] LABIA [id number] [place] [address] [place] Glucose [Mass/Vol] 85 mg/dL Normal 74-99 [facility] Comment on above: Order Comment: Derek krishnamurthy Type: BLOOD SPECIMENOrdering Facility: [facility] Address: [address] [place] [address] Result Comment: The [place] Diabetes Association (ADA) provides guidance for cutoff values for fasting glucose and random glucose. The ADA defines fasting as no caloric intake for at least 8 hours. Fasting plasma glucose results between 100 to 125 mg/dL indicate increased risk for diabetes (prediabetes). Fasting plasma glucose results greater than or equal to 126 mg/dL meet the criteria for diagnosis of diabetes. In the absence of unequivocal hyperglycemia, results should be confirmed by repeat testing. In a patient with classic symptoms of hyperglycemia or hyperglycemic crisis, random plasma glucose results greater than or equal to 200 mg/dL meet the criteria for diagnosis of diabetes. Reference: Standards of Medical Care in Diabetes 2016, [place] Diabetes Association. Diabetes Care. 2016.39(Suppl 1). Performed By: #### 2 4323-8 ####[facility] LABCLIA [id number] [place] [address] [place] Potassium [Moles/Vol] 4.4 mmol/L Normal 3.7-5.1 [facility] Comment on above: Order Comment: Speci men Type: BLOOD SPECIMENOrdering Facility: [facility] Address: [address] [place], [place] [address] Performed By: #### 2 4323-8 ####[facility] LABCLIA [id number] [place] [address] [place] Protein [Mass/Vol] 7.5 g/dL Normal 6.3-8.0 [facility] Comment on above: Order Comment: Speci men Type: BLOOD SPECIMENOrdering Facility: [facility] Address: [address] [place], [place] [address] Performed By: #### 2 4323-8 ####[facility] LABIA [id number] [place] [address] [place] Sodium [Moles/Vol] 138 mmol/L Normal 136-144 [facility] Comment on above: Order Comment: Speci men Type: BLOOD SPECIMENOrdering Facility: [facility] Address: [address] [place] [address] Performed By: #### 2 4323-8 ####[facility] LABIA [id number] [place] [address] [place] Urea nitrogen [Mass/Vol] 16 mg/dL Normal 9-24 [facility] Comment on above: Order Comment: Speci men Type: BLOOD SPECIMENOrdering Facility: [facility] Address: [address] [place] [address] Performed By: #### 2 4323-8 ####[facility] LABIA [id number] [place] [address] [place] NM PET/CT SKULL-THIGH SUBQon 09-30-2022 NM PET/CT SKULL-THIGH SUBQ * * *Final Report* * * DATE OF EXAM: Sep 30 2022 2:24PM NRN [id number] - NM PET/CT SKULL-THIGH SUBQ / PROCEDURE REASON: multiple diagnoses * * * * Physician Interpretation * * * * RESULT: FDG PET/CT SCAN: CLINICAL HISTORY: Lung cancer. INDICATION: Subsequent treatment strategy. TECHNIQUE: 10.8 mCi 18-FDG IV, followed about 1 hour later by PET imaging from base of the skull to proximal femur. Non contrast CT was performed for attenuation correction and anatomic localization purposes. CT Dose-Length Product (DLP): 237 mGy*cm. CT Dose Reduction Employed: Yes BLOOD GLUCOSE: 97 mg/dL Comparison: Prior PET CT dated 06/03/2020. Correlation: CT chest dated 09/15/2022 RESULT: NECK: Likely physiological activity in the oral cavity, tonsillar regions, salivary glands. No suspicious hypermetabolic foci. There is no hypermetabolic cervical lymphadenopathy. CHEST: There are aortic and coronary calcifications. Sternotomy. There is no hypermetabolic hilar or mediastinal lymphadenopathy. There is no hypermetabolic axillary lymphadenopathy. Multiple bilateral lung nodules. A few are hypermetabolic. For example left upper lobe subpleural nodule measures 0.7 x 0.8 cm (max SUV 4.2). Posterior right lower lobe nodule measures 0.7 x 0.8 cm (max SUV 2.1). ABDOMEN AND PELVIS: The liver is slightly heterogeneous activity but no focal lesions are identified. There are no hypermetabolic foci in the liver, spleen, adrenals. There is no hypermetabolic abdominal or pelvic lymphadenopathy. Physiologic activity is noted in the liver, renal collecting system, bladder and bowel. SKELETON: There are no hypermetabolic osseous lesions. Auto Service Instructor (topogram) images:No additional findings. --- IMPRESSION: 1. Neck: No suspicious hypermetabolic foci 2. Chest: Multiple bilateral lung nodules. A few nodules are hypermetabolic, most active nodule in the left upper lobe. Findings raise concern for metastases 3. Abdomen and pelvis: No evidence of FDG avid neoplastic process 4. Skeleton: No hypermetabolic osseous lesions Transcribe Date/Time: Sep 30 2022 4:35P Dictated by: TENNILLE MUNOZ MD This examination was interpreted and the report reviewed and electronically signed by: TENNILLE MUNOZ MD on Oct 02 2022 9:18AM EST Thank you for allowing us to participate in the care of your patient. Should there be any questions regarding this interpretation, please call [phone]. If you are unable to reach us at the number above, please feel free to contact [facility] at [phone]. [id number] CN Normal [facility] CNPNon 09-19-2022 CNPN Telephone ([place]) ALESSIO BURNS ([id number]) 1950 [address] [place]* Date Time Provider Department 09/19/22 JONY SPENCER During your visit today, we recorded the following information about you: Jony Spencer RN 09/19/2022 10:42 AM Signed MD Jony Prabhakar RN; P [facility] Clerical Pool Mo Jony - can you please call him and tell him that the multiple lesions in his lungs are too small to biopsy by bronchoscopy or by CT guidance, so we will get a baseline PET/CT soon and continue CT scans - next one in 8 weeks Jony Spencer RN 09/19/2022 10:42 AM Signed Handled in another encounter. oJny Spencer RN Allergies As of Date: 09/19/2022 (No Known Allergies) Date Reviewed: 09/15/2022 Reviewed by: Prachi Stephens Ma - Fully Assessed Reason for Visit: Results [95] Prescriptions as of 09/19/2022 - iv contrast (will be provided with radiology test) CT Chest ABD/PEL-Inject, intravenously, once for 1 dose.No IV access, insert saline lock prior to the beginning of sedation, infusion, injection of imaging exam. Discontinue saline lock post exam. If Pt. has a central line or IVAD, may access for administration according to line specific nursing protocol. Once exam is complete flush line and de-access according to line specific nursing protocol in the CT contrast administration guidelines link. - enteric contrast (will be provided with radiology test) For CT CHESTABD/PEL W IVCON Routine order Administer, As Directed One Time Only, via Oral, Rectal, both Oral and Rectal, Enteric Tube, Stoma or Indwelling Catheter, Enteric Contrast as designated per enteric contrast guidelines - penicillin V potassium (V-CILLIN, VEETIDS) 500 mg tablet Take 500 mg by mouth four times daily. - oxyCODONE-acetaminop hen (PERCOCET) 5-325 mg tablet TAKE 1 TABLET BY MOUTH EVERY 12 HOURS NEEDED FOR PAIN - traZODone (DESYREL) 100 mg tablet Take 100 mg by mouth once daily. - potassium chloride ER (K-DUR, KLOR-CON) 20 mEq tablet Take 20 mEq by mouth once daily. - levoFLOXacin (LEVAQUIN) 750 mg tablet Take 750 mg by mouth once daily. - predniSONE (DELTASONE) 20 mg tablet Take 40 mg by mouth daily with food. - amLODIPine (NORVASC) 10 mg tablet Take 10 mg by mouth once daily. - Nebulizer and Compressor For Neb 1 Each three times daily as needed. - Albuterol Sulfate 1.25 mg/3 mL nebulizer solution Use 1 Ampule via nebulizer every 6 hours as needed for wheezing/shortness of breath. - sildenafil (VIAGRA) 25 mg tablet sildenafil 25 mg tablet TAKE 1 TABLET BY MOUTH 30 MINUTES BEFORE sexual activity - busPIRone (BUSPAR) 15 mg tablet Take 15 mg by mouth three times daily. - budesonide-formotero l (SYMBICORT) 160-4.5 mcg/actuation inhaler Symbicort 160 mcg-4.5 mcg/actuation HFA aerosol inhaler INHALE 2 PUFFS BY MOUTH TWICE DAILY - albuterol HFA (PROVENTIL HFA, VENTOLIN HFA) 90 mcg/actuation inhaler albuterol sulfate HFA 90 mcg/actuation aerosol inhaler INHALE 2 PUFFS BY MOUTH EVERY 4 TO 6 HOURS NEEDED for shortness of breath and FOR WHEEZING - aspirin, enteric coated (ASPIRIN, ENTERIC COATED) 81 mg EC tablet q 24 HR. - atorvastatin (LIPITOR) 40 mg tablet atorvastatin 40 mg tablet TAKE 1 TABLET BY MOUTH AT BEDTIME - clopidogrel (PLAVIX) 75 mg tablet clopidogrel 75 mg tablet TAKE 1 TABLET BY MOUTH ONCE DAILY - furosemide (LASIX) 40 mg tablet furosemide 40 mg tablet TAKE 1 TABLET BY MOUTH DAILY - metoprolol succinate ER (TOPROL XL) 50 mg 24 hr tablet metoprolol succinate ER 50 mg tablet,extended release 24 hr TAKE 1 TABLET BY MOUTH EVERY DAY - nitroglycerin sublingual (NITROQUICK) 0.4 mg SL tablet nitroglycerin 0.4 mg sublingual tablet DISSOLVE 1 TABLET UNDER THE TONGUE NEEDED FOR CHEST PAIN- MAY REPEAT EVERY 5 MINUTES IF NEEDED ( MAX 3 DOSES.- IF NO RELIEF CALL 911) - sacubitril-valsartan (ENTRESTO) 97-103 mg tablet Entresto 97 mg-103 mg tablet TAKE 1 TABLET BY MOUTH TWICE DAILY Problem List As Of Date 09/19/2022 Noted Resolved Cancer of trachea, bronchus, and lung (HCC) [C3*10/29/2021 Coronary arteriosclerosis [I25.10] 01/05/2022 Chronic diastolic CHF (congestive heart failure*01/05/2022 Aortic valve stenosis [I35.0] 01/05/2022 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] 01/05/2022 Acute thrombus of left ventricle (HCC) [I24.0] 01/05/2022 Aortic valve replaced [Z95.2] 01/05/2022 Carotid artery stenosis [I65.29] 01/05/2022 Lung nodules [R91.8] 01/05/2022 Hx of CABG [Z95.1] 01/05/2022 HTN (hypertension) [I10] 01/05/2022 Smoker [F17.200] 01/05/2022 COPD (chronic obstructive pulmonary disease) (H*01/05/2022 HLD (hyperlipidemia) [E78.5] 01/05/2022 Depression [F32.A] 01/05/2022 Panlobular emphysema (HCC) [J43.1] 07/21/2022 Encounter Status:Closed by JONY SPENCER on 09/19/22 Normal [facility] CBC W Auto Differential pane l (Bld)on 09-15-2022 Basophils (Bld) [#/Vol] 0.06 10*3/uL Normal <0.11 [facility] Comment on above: Order Comment: Speci men Type: BLOOD SPECIMENOrdering Facility: [facility] Address: [address] [address] Performed By: #### 5 7021-8 ####[facility] LABCLIA [id number] [place] [address] Basophils/100 WBC (Bld) 0.6 % Normal [facility] Comment on above: Order Comment: Speci men Type: BLOOD SPECIMENOrdering Facility: [facility] Address: [address] [address] Performed By: #### 5 7021-8 ####[facility] LABCLIA [id number] [place] [address] Differential cell count method Nom (Bld) Auto Normal [facility] Comment on above: Order Comment: Speci men Type: BLOOD SPECIMENOrdering Facility: [facility] Address: [address] [address] Performed By: #### 5 7021-8 ####[facility] LABCLIA [id number] [place] [address] Eosinophils (Bld) [#/Vol] 0.35 10*3/uL Normal <0.46 [facility] Comment on above: Order Comment: Speci men Type: BLOOD SPECIMENOrdering Facility: [facility] Address: [address] [address] Performed By: #### 5 7021-8 ####[facility] LABCLIA [id number] [place] [address] Eosinophils/100 WBC (Bld) 3.8 % Normal [facility] Comment on above: Order Comment: Speci men Type: BLOOD SPECIMENOrdering Facility: [facility] Address: [address] [address] Performed By: #### 5 7021-8 ####[facility] LABCLIA [id number] [place] [address] Erythrocyte distribution width (RBC) [Ratio] 12.8 % Normal 11.5-15.0 [facility] Comment on above: Order Comment: Speci men Type: BLOOD SPECIMENOrdering Facility: [facility] Address: [address] [place] [address] Performed By: #### 5 7021-8 ####[facility] LABCLIA [id number] [place] [address] Hematocrit (Bld) [Volume fraction] 39.1 % Normal 39.0-51.0 [facility] Comment on above: Order Comment: Speci men Type: BLOOD SPECIMENOrdering Facility: [facility] Address: [address] [place] [address] Performed By: #### 5 7021-8 ####[facility] LABIA [id number] [place] [address] Hemoglobin (Bld) [Mass/Vol] 13.0 g/dL Normal 13.0-17.0 [facility] Comment on above: Order Comment: Speci men Type: BLOOD SPECIMENOrdering Facility: [facility] Address: [address] [place] [address] Performed By: #### 5 7021-8 ####[facility] LABCLIA [id number] [place] [address] Immature granulocytes (Bld) [#/Vol] 0.07 10*3/uL Normal <0.10 [facility] Comment on above: Order Comment: Speci men Type: BLOOD SPECIMENOrdering Facility: [facility] Address: [address] [place] [address] Performed By: #### 5 7021-8 ####[facility] LABCLIA [id number] [place] [address] Immature granulocytes/100 WBC (Bld) 0.8 % Normal [facility] Comment on above: Order Comment: Speci men Type: BLOOD SPECIMENOrdering Facility: [facility] Address: [address] [place] [address] Performed By: #### 5 7021-8 ####[facility] LABCLIA [id number] [place] [address] Lymphocytes (Bld) [#/Vol] 1.83 10*3/uL Normal 1.00-4.00 [facility] Comment on above: Order Comment: Speci men Type: BLOOD SPECIMENOrdering Facility: [facility] Address: [address] [place] [address] Performed By: #### 5 7021-8 ####[facility] LABCLIA [id number] [place] [address] Lymphocytes/100 WBC (Bld) 19.7 % Normal [facility] Comment on above: Order Comment: Speci men Type: BLOOD SPECIMENOrdering Facility: [facility] Address: [address] [place] [address] Performed By: #### 5 7021-8 ####[facility] LABCLIA [id number] [place] [address] MCH (RBC) [Entitic mass] 30.6 pg Normal 26.0-34.0 [facility] Comment on above: Order Comment: Speci men Type: BLOOD SPECIMENOrdering Facility: [facility] Address: [address] [place] [address] Performed By: #### 5 7021-8 ####[facility] LABCLIA [id number] [place] [address] MCHC (RBC) [Mass/Vol] 33.2 g/dL Normal 30.5-36.0 [facility] Comment on above: Order Comment: Speci men Type: BLOOD SPECIMENOrdering Facility: [facility] Address: [address] [place] [address] Performed By: #### 5 7021-8 ####[facility] LABCLIA [id number] [place] [address] MCV (RBC) [Entitic vol] 92.0 fL Normal 80.0-100.0 C [facility] Comment on above: Order Comment: Speci men Type: BLOOD SPECIMENOrdering Facility: [facility] Address: [address] [place] [address] Performed By: #### 5 7021-8 ####[facility] LABCLIA [id number] [place] [address] Monocytes (Bld) [#/Vol] 1.13 10*3/uL High <0.87 [facility] Comment on above: Order Comment: Speci men Type: BLOOD SPECIMENOrdering Facility: [facility] Address: [address] [place] [address] Performed By: #### 5 7021-8 ####[facility] LABCLIA [id number] [place] [address] Monocytes/100 WBC (Bld) 12.1 % Normal C [facility] Comment on above: Order Comment: Speci men Type: BLOOD SPECIMENOrdering Facility: [facility] Address: [address] [place] [address] Performed By: #### 5 7021-8 ####[facility] LABCLIA [id number] [place] [address] Neutrophils (Bld) [#/Vol] 5.87 10*3/uL Normal 1.45-7.50 [facility] Comment on above: Order Comment: Speci men Type: BLOOD SPECIMENOrdering Facility: [facility] Address: [address] [place] [address] Performed By: #### 5 7021-8 ####[facility] LABCLIA [id number] [place] [address] Neutrophils/100 WBC (Bld) 63.0 % Normal [facility] Comment on above: Order Comment: Speci men Type: BLOOD SPECIMENOrdering Facility: [facility] Address: [address] [address] Performed By: #### 5 7021-8 ####[facility] LABCLIA [id number] [place] [address] Nucleated RBC (Bld) [#/Vol] 10*3/uL Normal <0.01 [facility] Comment on above: Order Comment: Speci men Type: BLOOD SPECIMENOrdering Facility: [facility] Address: [address] [address] Performed By: #### 5 7021-8 ####[facility] LABCLIA [id number] [place] [address] Nucleated RBC/100 WBC (Bld) [Ratio] 0.0 /100 WBC Normal [facility] Comment on above: Order Comment: Speci men Type: BLOOD SPECIMENOrdering Facility: [facility] Address: [address] [place] [address] Performed By: #### 5 7021-8 ####[facility] LABCLIA [id number] [place] [address] Platelet mean volume (Bld) [Entitic vol] 8.6 fL Low 9.0-12.7 [facility] Comment on above: Order Comment: Speci men Type: BLOOD SPECIMENOrdering Facility: [facility] Address: [address] [address] Performed By: #### 5 7021-8 ####[facility] LABCLIA [id number] [place] [address] Platelets (Bld) [#/Vol] 337 10*3/uL Normal 150-400 [facility] Comment on above: Order Comment: Speci men Type: BLOOD SPECIMENOrdering Facility: [facility] Address: [address] [place] [address] Performed By: #### 5 7021-8 ####[facility] LABCLIA [id number] [place] [address] RBC (Bld) [#/Vol] 4.25 10*6/uL Normal 4.20-6.00 [facility] Comment on above: Order Comment: Speci men Type: BLOOD SPECIMENOrdering Facility: [facility] Address: [address] [place] [phone] Performed By: #### 5 7021-8 ####[facility] LABCLIA [id number] [place] [address] WBC (Bld) [#/Vol] 9.31 10*3/uL Normal 3.70-11.00 [facility] Comment on above: Order Comment: Speci men Type: BLOOD SPECIMENOrdering Facility: [facility] Address: [address] [place] [phone] Performed By: #### 5 7021-8 ####[facility] LABCLIA [id number] [place] [address] CNOVSPon 09-15-2022 CNOVSP Visit (SP) Office ([place]) ALESSIO BURNS ([id number]) 1950 M [facility] Date Time Provider Department 09/15/22 2:15 PM JAYA BAI During your visit today, we recorded the following information about you: Temperature Pulse Respiration Blood pressure 97.6 degrees 65/minute 16/minute 144/70 Weight Height 86.6 kg 1.676 m Jaya Bai MD 09/19/2022 8:41 AM Signed NAME: Alessio Burns CLINIC NO.: [id number] DATE OF SERVICE: September 15, 2022 (Zac) Some elements in this clinic note that are critical to medical decision making have been carefully reviewed and included from a prior clinic note dated: July 21, 2022 (Zac) Referring Provider: Dr. 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 He actually presented with an acute myocardial infarction and had to undergo CABG and aortic valve repair emergently in June 08, 2020. Subsequent work-up demonstrated malignancy with no evidence of metastatic disease and he underwent resection in July 2020 after he had recovered from his cardiac surgery. He was not a candidate for adjuvant therapy given his almost 6-month gap between resection and presentation to hi. He remains at high risk because of tobacco use. Restaging is non-specific for recurrence of lung cancer but short interval CT's found a new liver lesion which then persisted through December 2021. He saw Dr. Mota for resection 01/10/2022 - benign findings of ciliated foregut cyst. Colonoscopy. Done for + Cologuard was negative. Dyspnea wheezing - uses a nebulizer but is still smoking. New bilateral lung nodules - could be infectious / inflammatory however have continued to grow on serial CT scans. While these are highly suspicious, I suspect that there 2 small to attempt biopsy which have confirmed with Dr. Carter. Will obtain PET scanning and then continue serial CT evaluation. Will consider thoracic surgery referral for biopsy as suspicion increases. PLAN: PET/CT in the next 2 weeks Call Results after. Refer to Pulmonary for bronch and biopsy - prefer [facility] - discussion with Dr. Carter - will continue serial observation - lesions are too small for bronch or CT bx. Will likely need surgical biopsy if indicated. RE-peat CT chest with Abdomen pelvis in 8 weeks with labs and RTC to review. HPI: Updated Visit, September 15, 2022: Reviewed Repeat CT results with him - images and personal interpretation prior to official read indicate enlarging nodules. Discussion with Dr. Carter to consider biopsy vs. Continued observation yielded a decision to continue observation. I will get a baseline PET/CT. He is here with his son Bari. Updated Visit, July 21, 2022: Sister Maria Teresa with him today 07/14/2022 CT Chest - development of innumerable pulmonary nodules - infectous / inflammatory vs neoplastic. All below PET range (7mm and less). He is at his baseline state of health. Labs unremarkable. Updated Visit, March 31, 2022: Bari son is with him today. He still smokes. Reviewed images with him personally. Scan results pending but preliminarily appear without concerning lesion and with left apical emphysema Updated Visit, March 02, 2022: Telephone only for 5 mins Called Alessio as requested. Reviewed findings of liver resection in 01/2022. Still complains of dyspnea but is still smoking. Will repeat CT chest in 3 - 4 weeks and have him return to review. He is in agreement. His sister Maria Teresa was on the phone as well. Updated Visit, December 17, 2021: Telephone only for 8 minutes Called as requested to discuss findings on liver CT showing subcapsular liver lesion that remains suspicious. disussed biopsy with him and he is agreeable. Updated Visit, October 29, 2021: Got COVID in September and was fairly sick - still has night sweats. Recovering but still has poor appetitie. His scans demonstrate a small liver lesion and multple mesenteric lymphnodes. I will follow these given the recent COVID infection. His sister Purvi is with him today. Updated Visit, June 25, 2021: Alessio Burns returns for follow up. There has been no significant medical changes since his last visit. He has a chronic cough and shortness of breath. He continues to smoke. He denies any unusual pain. He had a few episodes of sharp abdominal pain for the last 2 weeks. He states that the pain is on his right side just below his liver. The patient states that he does not consume alcohol. He has occasional constipation. He also states that sometimes urinating is difficult. Overall, he is doing fairly well. He states that his son is concer (more content not included)... Normal [facility] CNPLeisa 09-15-2022 [facility] KATYALESSIO ([id number]) 1950 [place] Date Time Provider Department 09/15/22 JAYA BAI During your visit today, we recorded the following information about you: Ania Qian 09/15/2022 5:05 PM Signed PET/CT in the next 2 weeks Patient thought it was decided this was being put on hold for now. Did you still want patient scheduled for PET? Ania Bai MD 09/15/2022 5:44 PM Signed Ultimately we need tissue But PET will be very helpful regardless - it was only on hold because today's CT scan wasn't read - it shows some lesions have decreased but several have increased. Final read came back just now. Please schedule PET/CT also - this will help guide areas to place bronchoscopic biopsy. Charla Flor RN 09/16/2022 9:09 AM Signed Pt notified and verbalizes understanding. Agrees to PET scan. Clerical: Please schedule and call pt w/ the appointment. JERONIMO Singh 09/16/2022 9:15 AM Signed Patient has been scheduled for PET scan on 09/30. Patient notified. Ania Crump Allergies As of Date: 09/15/2022 (No Known Allergies) Date Reviewed: 09/15/2022 Reviewed by: Prachi Stephens Ma - Fully Assessed Reason for Visit: Appointment [186] Prescriptions as of 09/16/2022 - penicillin V potassium (V-CILLIN, VEETIDS) 500 mg tablet Take 500 mg by mouth four times daily. - oxyCODONE-acetaminop hen (PERCOCET) 5-325 mg tablet TAKE 1 TABLET BY MOUTH EVERY 12 HOURS NEEDED FOR PAIN - traZODone (DESYREL) 100 mg tablet Take 100 mg by mouth once daily. - potassium chloride ER (K-DUR, KLOR-CON) 20 mEq tablet Take 20 mEq by mouth once daily. - levoFLOXacin (LEVAQUIN) 750 mg tablet Take 750 mg by mouth once daily. - predniSONE (DELTASONE) 20 mg tablet Take 40 mg by mouth daily with food. - amLODIPine (NORVASC) 10 mg tablet Take 10 mg by mouth once daily. - Nebulizer and Compressor For Neb 1 Each three times daily as needed. - Albuterol Sulfate 1.25 mg/3 mL nebulizer solution Use 1 Ampule via nebulizer every 6 hours as needed for wheezing/shortness of breath. - sildenafil (VIAGRA) 25 mg tablet sildenafil 25 mg tablet TAKE 1 TABLET BY MOUTH 30 MINUTES BEFORE sexual activity - busPIRone (BUSPAR) 15 mg tablet Take 15 mg by mouth three times daily. - budesonide-formotero l (SYMBICORT) 160-4.5 mcg/actuation inhaler Symbicort 160 mcg-4.5 mcg/actuation HFA aerosol inhaler INHALE 2 PUFFS BY MOUTH TWICE DAILY - albuterol HFA (PROVENTIL HFA, VENTOLIN HFA) 90 mcg/actuation inhaler albuterol sulfate HFA 90 mcg/actuation aerosol inhaler INHALE 2 PUFFS BY MOUTH EVERY 4 TO 6 HOURS NEEDED for shortness of breath and FOR WHEEZING - aspirin, enteric coated (ASPIRIN, ENTERIC COATED) 81 mg EC tablet q 24 HR. - atorvastatin (LIPITOR) 40 mg tablet atorvastatin 40 mg tablet TAKE 1 TABLET BY MOUTH AT BEDTIME - clopidogrel (PLAVIX) 75 mg tablet clopidogrel 75 mg tablet TAKE 1 TABLET BY MOUTH ONCE DAILY - furosemide (LASIX) 40 mg tablet furosemide 40 mg tablet TAKE 1 TABLET BY MOUTH DAILY - metoprolol succinate ER (TOPROL XL) 50 mg 24 hr tablet metoprolol succinate ER 50 mg tablet,extended release 24 hr TAKE 1 TABLET BY MOUTH EVERY DAY - nitroglycerin sublingual (NITROQUICK) 0.4 mg SL tablet nitroglycerin 0.4 mg sublingual tablet DISSOLVE 1 TABLET UNDER THE TONGUE NEEDED FOR CHEST PAIN- MAY REPEAT EVERY 5 MINUTES IF NEEDED ( MAX 3 DOSES.- IF NO RELIEF CALL 911) - sacubitril-valsartan (ENTRESTO) 97-103 mg tablet Entresto 97 mg-103 mg tablet TAKE 1 TABLET BY MOUTH TWICE DAILY Problem List As Of Date 09/15/2022 Noted Resolved Cancer of trachea, bronchus, and lung (HCC) [C3*10/29/2021 Coronary arteriosclerosis [I25.10] 01/05/2022 Chronic diastolic CHF (congestive heart failure*01/05/2022 Aortic valve stenosis [I35.0] 01/05/2022 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] 01/05/2022 Acute thrombus of left ventricle (HCC) [I24.0] 01/05/2022 Aortic valve replaced [Z95.2] 01/05/2022 Carotid artery stenosis [I65.29] 01/05/2022 Lung nodules [R91.8] 01/05/2022 Hx of CABG [Z95.1] 01/05/2022 HTN (hypertension) [I10] 01/05/2022 Smoker [F17.200] 01/05/2022 COPD (chronic obstructive pulmonary disease) (H*01/05/2022 HLD (hyperlipidemia) [E78.5] 01/05/2022 Depression [F32.A] 01/05/2022 Panlobular emphysema (HCC) [J43.1] 07/21/2022 Encounter Status:Closed by CHARLA FLOR on 09/16/22 [facility] CNPN Telephone ([facility]) ALESSIO BURNS ([id number]) 1950 [place] Date Time Provider Department 09/15/22 JAYA BAI NCCVIRGEN During your visit today, we recorded the following information about you: Ania Crump 09/15/2022 3:03 PM Signed CONSULT TO PULMONARY MEDICINE Per Dr. Bai: Persisting and numerous pulmonary nodules with history of lung cancer prior right lobectomy - have order PET but will likely need tissue sampling regadless. Thanks Team! Ania Qian Ania Semon 09/16/2022 9:10 AM Signed Luis Antonio Carter MD You; Jaya Bai MD; Loan Sanchez 11 hours ago (9:45 PM) Jaya, I'd be happy to see this patient, however I reviewed the CT and the nodules are too small to be accessed by bronchoscopy (or CT-guided TTNA either). I think this is either a surgical biopsy, or you repeat the CT in a few months and if there's growth we can figure something out. Let me know how you'd like to proceed. Riley Bai MD 09/16/2022 5:19 PM Signed Thanks Riley - I had a feeling that was the case - I'll get a PET as some of his nodules have grown to over 8 mm now - I'll get the PET and then figure out the path forward. Always appreciate your help! Charla Flor RN 09/19/2022 8:06 AM Signed Clerical: PET orders placed. Please schedule. Thanks! JERONIMO Singh 09/19/2022 9:48 AM Signed Patient has been scheduled for 09/30. Patient has been notified. Ania Qian Allergies As of Date: 09/15/2022 (No Known Allergies) Date Reviewed: 09/15/2022 Reviewed by: Prachi Stephens Ma - Fully Assessed Reason for Visit: Consult [173] Prescriptions as of 09/19/2022 - iv contrast (will be provided with radiology test) CT Chest ABD/PEL-Inject, intravenously, once for 1 dose.No IV access, insert saline lock prior to the beginning of sedation, infusion, injection of imaging exam. Discontinue saline lock post exam. If Pt. has a central line or IVAD, may access for administration according to line specific nursing protocol. Once exam is complete flush line and de-access according to line specific nursing protocol in the CT contrast administration guidelines link. - enteric contrast (will be provided with radiology test) For CT CHESTABD/PEL W IVCON Routine order Administer, As Directed One Time Only, via Oral, Rectal, both Oral and Rectal, Enteric Tube, Stoma or Indwelling Catheter, Enteric Contrast as designated per enteric contrast guidelines - penicillin V potassium (V-CILLIN, VEETIDS) 500 mg tablet Take 500 mg by mouth four times daily. - oxyCODONE-acetaminop hen (PERCOCET) 5-325 mg tablet TAKE 1 TABLET BY MOUTH EVERY 12 HOURS NEEDED FOR PAIN - traZODone (DESYREL) 100 mg tablet Take 100 mg by mouth once daily. - potassium chloride ER (K-DUR, KLOR-CON) 20 mEq tablet Take 20 mEq by mouth once daily. - levoFLOXacin (LEVAQUIN) 750 mg tablet Take 750 mg by mouth once daily. - predniSONE (DELTASONE) 20 mg tablet Take 40 mg by mouth daily with food. - amLODIPine (NORVASC) 10 mg tablet Take 10 mg by mouth once daily. - Nebulizer and Compressor For Neb 1 Each three times daily as needed. - Albuterol Sulfate 1.25 mg/3 mL nebulizer solution Use 1 Ampule via nebulizer every 6 hours as needed for wheezing/shortness of breath. - sildenafil (VIAGRA) 25 mg tablet sildenafil 25 mg tablet TAKE 1 TABLET BY MOUTH 30 MINUTES BEFORE sexual activity - busPIRone (BUSPAR) 15 mg tablet Take 15 mg by mouth three times daily. - budesonide-formotero l (SYMBICORT) 160-4.5 mcg/actuation inhaler Symbicort 160 mcg-4.5 mcg/actuation HFA aerosol inhaler INHALE 2 PUFFS BY MOUTH TWICE DAILY - albuterol HFA (PROVENTIL HFA, VENTOLIN HFA) 90 mcg/actuation inhaler albuterol sulfate HFA 90 mcg/actuation aerosol inhaler INHALE 2 PUFFS BY MOUTH EVERY 4 TO 6 HOURS NEEDED for shortness of breath and FOR WHEEZING - aspirin, enteric coated (ASPIRIN, ENTERIC COATED) 81 mg EC tablet q 24 HR. - atorvastatin (LIPITOR) 40 mg tablet atorvastatin 40 mg tablet TAKE 1 TABLET BY MOUTH AT BEDTIME - clopidogrel (PLAVIX) 75 mg tablet clopidogrel 75 mg tablet TAKE 1 TABLET BY MOUTH ONCE DAILY - furosemide (LASIX) 40 mg tablet furosemide 40 mg tablet TAKE 1 TABLET BY MOUTH DAILY - metoprolol succinate ER (TOPROL XL) 50 mg 24 hr tablet metoprolol succinate ER 50 mg tablet,extended release 24 hr TAKE 1 TABLET BY MOUTH EVERY DAY - nitroglycerin sublingual (NITROQUICK) 0.4 mg SL tablet nitroglycerin 0.4 mg sublingual tablet DISSOLVE 1 TABLET UNDER THE TONGUE NEEDED FOR CHEST PAIN- MAY REPEAT EVERY 5 MINUTES IF NEEDED ( MAX 3 DOSES.- IF NO RELIEF CALL 911) - sacubitril-valsartan (ENTRESTO) 97-103 mg tablet Entresto 97 mg-103 mg tablet TAKE 1 TABLET BY MOUTH TWICE DAILY Problem List As Of Date 09/15/2022 Noted Resolved Cancer of trachea, bronchus, and lung (HCC) [C3*02/ (more content not included)... Normal [facility] CT CHEST W IVCONon 3 CT CHEST W IVCON * * *Final Report* * * DATE OF EXAM: Sep 15 2022 2:24PM [facility] 0539 - CT CHEST W IVCON / PROCEDURE REASON: multiple diagnoses * * * * Physician Interpretation * * * * RESULT: EXAMINATION: CHEST CT WITH CONTRAST CLINICAL HISTORY: History of non-small cell lung cancer. Technique: Spiral CT acquisition of the chest from the thoracic inlet to the upper abdomen following IV contrast. MQ: CTCW_6 Contrast: 50 mL Omnipaque [address] Radiation dose: Integrated Dose-length product (DLP) for this visit = 298 mGy*cm CT Dose Reduction Employed: Comparison: CT chest performed 07/14/2022 RESULT: Limitations: None. Lines, tubes, and devices: None. Lung parenchyma and airways: No new lobar consolidation is visualized. There is mild centrilobular emphysema. There are stable postsurgical changes in keeping with right upper lobectomy. Multiple bilateral nodular opacities are again noted. These include the following: Right middle lobe (4:42) 6 mm, stable Right lower lobe (4:49) 5 mm, stable Right lower lobe (4:43) 7 mm, previously 3 mm Right lower lobe (4:52) 7 mm, previously 3 mm Right lower lobe (4:68) 8 mm, previously 5 mm Right lower lobe (4:122) 3 mm, previously 5 mm Left upper lobe (4:56) 8 mm, previously 5 mm Left upper lobe (4:90) 5 mm, previously 7 mm Left lower lobe (4:139) 4 mm, previously 5 mm The central airways are widely patent. Pleural space: No pleural effusion. No pleural thickening. Lower neck, lymph nodes, and mediastinum: The imaged thyroid gland is normal. No lymphadenopathy in the supraclavicular, axillary, mediastinal, or hilar regions. Heart, pericardium, and thoracic vessels: There is ectasia of ascending thoracic aorta measuring up to 5 cm in diameter, previously 4.9 cm. The main pulmonary artery is normal in caliber. The cardiac chambers are normal in size. Coronary artery atherosclerotic calcification is noted. No pericardial effusion or thickening. Bones and soft tissues: No destructive osseous lesions are seen. There is been a prior median sternotomy. No new destructive osseous lesions are seen. Bilateral gynecomastia is again noted. Superficial soft tissues are otherwise unremarkable. Upper abdomen: No abnormality in the imaged upper abdomen. Auto Service Instructor (topogram) images: No additional findings. IMPRESSION: 1. Multiple bilateral pulmonary nodules. Several of these are decreased in size whereas others have enlarged. 2. No evidence of intrathoracic lymphadenopathy. Transcribe Date/Time: Sep 15 2022 4:10P Dictated by: FABIÁN MARINA MD This examination was interpreted and the report reviewed and electronically signed by: FABIÁN MARINA MD on Sep 15 2022 4:37PM EST Thank you for allowing us to participate in the care of your patient. Should there be any questions regarding this interpretation, please call [phone]. If you are unable to reach us at the number above, please feel free to contact [facility] eRadiology at [phone]. [id number] CN Normal [facility] Comprehensive metabolic 2000 panelon 09-15-2022 Albumin [Mass/Vol] 4.3 g/dL Normal 3.9-4.9 [facility] Comment on above: Order Comment: Speci men Type: BLOOD SPECIMENOrdering Facility: [facility] Address: [address] [address] Performed By: #### 2 4323-8 ####[facility] LABIA [id number] [place] [address] ALP [Catalytic activity/Vol] 95 U/L Normal 38-113 [facility] Comment on above: Order Comment: Speci men Type: BLOOD SPECIMENOrdering Facility: [facility] Address: [address] Performed By: #### 2 4323-8 ####[facility] LABCLIA [id number] [place] [address] ALT [Catalytic activity/Vol] 10 U/L Normal 10-54 [facility] Comment on above: Order Comment: Speci men Type: BLOOD SPECIMENOrdering Facility: [facility] Address: [address] Performed By: #### 2 4323-8 ####[facility] LABCLIA [id number] [place] [address] Anion gap [Moles/Vol] 7 mmol/L Low 9-18 [facility] Comment on above: Order Comment: Speci men Type: BLOOD SPECIMENOrdering Facility: [facility] Address: [address] [place] [address] Performed By: #### 2 4323-8 ####[facility] LABCLIA [id number] [place] [address] AST [Catalytic activity/Vol] 15 U/L Normal 14-40 [facility] Comment on above: Order Comment: Speci men Type: BLOOD SPECIMENOrdering Facility: [facility] Address: [address] [place] [address] Performed By: #### 2 4323-8 ####[facility] LABCLIA [id number] [place] [address] Bilirubin [Mass/Vol] 0.4 mg/dL Normal 0.2-1.3 [facility] Comment on above: Order Comment: Speci men Type: BLOOD SPECIMENOrdering Facility: [facility] Address: [address] [place] [address] Performed By: #### 2 4323-8 ####[facility] LABCLIA [id number] [place] [address] Calcium [Mass/Vol] 8.9 mg/dL Normal 8.5-10.2 [facility] Comment on above: Order Comment: Speci men Type: BLOOD SPECIMENOrdering Facility: [facility] Address: [address] [place] [address] Performed By: #### 2 4323-8 ####[facility] LABCLIA [id number] [place] [address] Chloride [Moles/Vol] 102 mmol/L Normal 97-105 [facility] Comment on above: Order Comment: Speci men Type: BLOOD SPECIMENOrdering Facility: [facility] Address: [address] [address] Performed By: #### 2 4323-8 ####[facility] LABCLIA [id number] [place] [address] CO2 [Moles/Vol] 24 mmol/L Normal 22-30 [facility] Comment on above: Order Comment: Speci men Type: BLOOD SPECIMENOrdering Facility: [facility] Address: [address] [place] [address] Performed By: #### 2 4323-8 ####[facility] LABCLIA [id number] [place] [address] Creatinine [Mass/Vol] 1.07 mg/dL Normal 0.73-1.22 [facility] Comment on above: Order Comment: Speci men Type: BLOOD SPECIMENOrdering Facility: [facility] Address: [address] [place] [address] Performed By: #### 2 4323-8 ####[facility] LABCLIA [id number] [place] [address] ESTIMATED GLOMERULAR FILTRATION RATE 74 mL/min/1.73m??? Normal >=60 [facility] Comment on above: Order Comment: Speci men Type: BLOOD SPECIMENOrdering Facility: [facility] Address: [address] [place] [address] Result Comment: Karin mated Glomerular Filtration Rate (eGFR) is calculated using the 2020 CKD-EPI creatinine equation. This equation utilizes serum creatinine, sex, and age as parameters. The creatinine assay has traceable calibration to isotope dilution-mass spectrometry. Refer to KDIGO guidelines for clinical interpretation. In patients with unstable renal function, e.g. those with acute kidney injury, the eGFR may not accurately reflect actual GFR. Performed By: #### 2 4323-8 ####[facility] LABCLIA [id number] [place] [address] Glucose [Mass/Vol] 97 mg/dL Normal 74-99 [facility] Comment on above: Order Comment: Speci men Type: BLOOD SPECIMENOrdering Facility: [facility] Address: [address] [place], [place] [id number] Result Comment: The [place] Diabetes Association (ADA) provides guidance for cutoff values for fasting glucose and random glucose. The ADA defines fasting as no caloric intake for at least 8 hours. Fasting plasma glucose results between 100 to 125 mg/dL indicate increased risk for diabetes (prediabetes). Fasting plasma glucose results greater than or equal to 126 mg/dL meet the criteria for diagnosis of diabetes. In the absence of unequivocal hyperglycemia, results should be confirmed by repeat testing. In a patient with classic symptoms of hyperglycemia or hyperglycemic crisis, random plasma glucose results greater than or equal to 200 mg/dL meet the criteria for diagnosis of diabetes. Reference: Standards of Medical Care in Diabetes 2016, [place] Diabetes Association. Diabetes Care. 2016.39(Suppl 1). Performed By: #### 2 4323-8 ####[facility] LABCLIA [id number] [place] [address] Potassium [Moles/Vol] 4.1 mmol/L Normal 3.7-5.1 [facility] Comment on above: Order Comment: Speci men Type: BLOOD SPECIMENOrdering Facility: [facility] Address: [address] [place] [address] Performed By: #### 2 4323-8 ####[facility] LABCLIA [id number] [place] [address] Protein [Mass/Vol] 7.5 g/dL Normal 6.3-8.0 [facility] Comment on above: Order Comment: Speci men Type: BLOOD SPECIMENOrdering Facility: [facility] Address: [address] [place], [place] [address] Performed By: #### 2 4323-8 ####[facility] LABCLIA [id number] [place] [address] Sodium [Moles/Vol] 133 mmol/L Low 136-144 [facility] Comment on above: Order Comment: Speci men Type: BLOOD SPECIMENOrdering Facility: [facility] Address: [place] [address] Performed By: #### 2 4323-8 ####[facility] LABCLIA [id number] [place] [address] Urea nitrogen [Mass/Vol] 18 mg/dL Normal 9-24 [facility] Comment on above: Order Comment: Speci men Type: BLOOD SPECIMENOrdering Facility: [facility] Address: [place] [address] Performed By: #### 2 4323-8 ####[facility] LABCLIA [id number] [place] [address] Follow-Upon 06-20-2022 Follow-Up [id number] Alessio Burns 1950 M Date Provider Department Center 06/20/2022 SYDNIE FOFANA Family History Problem Relation Age of Onset Diabetes Mother Heart disease Mother Heart disease Father Coronary artery disease Sister Family Status - Relation Status Age at Mother Father Sister Level of Service:99046 RI OFFICE/OUTPATIENT ESTABLISHED LOW MDM 20-29 MIN Reason for Visit and Comments: Coronary Artery Disease [187] Congestive Heart Failure [127] Valve Disorder [3372] Normal [facility] COVID-19 SOFIAOrdered By: Crescencio Queen on 04-14-2022 SARS-CoV+SARS-CoV-2 (COVID-19) Ag IA.rapid Ql (Resp) Negative Negative [facility] Comment on above: This is a duplicate Rehana SARS Antigen (ELVIS) result to be used for statistical tracking purpose only. No Panel InformationOrdered By: Krzysztof Queen on 04-14-2022 SARS Antigen (LFIA) [facility] ECHOCARDIO M/2D COMPLETEon 0 03-15-2022 ECHOCARDIO M/2D COMPLETE Patient: ALESSIO BURNS Exam Date: 03/15/2022 : 1950 Gender:M Ordering : DR SYDNIE AMBROSIO M.D. Admission #: [id number] Family : SHAIKH Tres ETIENNE . Order #: [id number] CLICK HERE TO VIEW EXAM ECHOCARDIOGRAM REPORT PROCEDURE: CARDIO PULMONARY ECHOCARDIO M/2D COMP INDICATIONS: Thoracic aortic aneurysm, CABG x 3, hypertension, smoker COMPARISON: None. DESCRIPTION: COMPLETE ECHOCARDIOGRAM Real-time transthoracic echocardiography with 2D, M-mode, spectral and color flow Doppler performed. QUALITY: Technical quality was good. LEFT VENTRICLE: Normal chamber size. Moderate concentric left ventricular hypertrophy. LV EF: Normal left ventricular ejection fraction, (>55%). DIASTOLIC: Grade 2 diastolic dysfunction. ATRIAL SEPTUM: Visually appears intact. LEFT ATRIUM: Normal chamber size. RIGHT ATRIUM: Normal chamber size. RIGHT VENTRICLE: Normal chamber size. Decreased right ventricular systolic function. TRICUSPID VALVE: Normal mobility and thickness. No stenosis with trivial regurgitation. No evidence of pulmonary hypertension. RVSP 24 mmHg MITRAL VALVE: Normal mobility and thickness. No evidence of mitral valve stenosis. Trivial mitral regurgitation. AORTIC VALVE: Bio-Prosthetic valve appears well seated in the aortic position with normal doppler flow. Mean gradient 11 mmHg. DVI 0.47. No aortic regurgitation. AORTIC ROOT: Normal diameter and appearance. Ascending aorta is dilated. The aortic root measures 4.1 cm and the proximal ascending aorta measures 4.5 cm. PULMONIC VALVE: Normal thickness and mobility. No stenosis. No regurgitation. PERICARDIUM: No evidence of pericardial effusion. IVC: Collapses with inspirations. IVC is normal in size. PLEURA: CONCLUSION: 1. Moderate concentric left ventricular hypertrophy. Normal left ventricular systolic function. LVEF is 65%. 2. Bioprosthetic aortic valve with normal Doppler flows. No valvular or perivalvular regurgitation. 3. Grade 2 diastolic dysfunction. 4. Normal right-sided pressures. 5. Dilated ascending aorta and aortic root. The proximal ascending aorta measures 4.5 cm. 6. No pericardial effusion. Adult Echocardiography Procedure Report Left Ventricle LVEDD (3.7 - 5.6 cm): 4.00 cm LVESD (2.2 - 4.0 cm): 2.25 cm LVIVS thickness (0.6 - 1.2 cm): 1.40 cm LVPW thickness (0.5 - 1.0 cm): 1.37 cm e': 13.90 cm/s E - e': 6.30 LVOT Area (cm2): 5.31 cm2 LVOT Diameter 2.60 cm Left Ventricular Ejection Fraction: 65 % Left Atrium LA Volume Index (2D A2C): 29.80 ml/m2 Left Atrium Systolic Dimension: 4.10 cm Left Atrium Systolic Area(A2C): 19.00 cm2 Left Atrium Systolic Area(A4C): 19.90 cm2 Left Atrium Systolic Volume(A2C): 42433 mm3 Left Atrium Systolic Volume(A4C): 58260 mm3 Mitral Valve MV E to A Ratio: 1 Mitral Valve A-Wave Peak Velocity: 84.90 cm/s Mitral Valve E-Wave Peak Velocity: 86.90 cm/s Deceleration Time: 380 ms Right Ventricle Aorta AO Root Diam: 4.1 cm Aortic Valve AoV Area (Peak Contreras): 2.52 cm2 AoV Area (VTI): 2.74 cm2 Peak Velocity(Antegrade Flow): 209.00 cm/s Peak Gradient(Antegrade Flow): 17 mm[Hg] Mean Velocity(Antegrade Flow): 155.00 cm/s Mean Gradient(Antegrade Flow): 11 mm[Hg] Velocity Time Integral: 52.10 cm Tricuspid Valve Pulmonic Valve Peak Velocity: 119.00 cm/s Peak Gradient: 6 mm[Hg] Right Atrium Dictated by: Sydnie Ambrosio M.D. on 03/15/2022 at 18:43 Approved by: Sydnie Ambrosio M.D. on 03/15/2022 at 18:52 Normal [facility] PROF CHEM 8 (BAS METB)on Anion gap [Moles/Vol] 10.9 mmol/L Normal [facility] Comment on above: Performed By: #### B MP #### [facility] [address] [address] [address] Denae Davis Calcium [Mass/Vol] 9.0 mg/dL Normal 8.5-10.1 [facility] Comment on above: Performed By: #### B MP #### [facility] [address] [address] [address] Denae Davis Chloride [Moles/Vol] 104 mmol/L Normal 98-107 [facility] Comment on above: Performed By: #### B MP #### [facility] [address] [address] [address] Denae Davis CO2 [Moles/Vol] 28.3 mmol/L Normal 21.0-32.0 [facility] Comment on above: Performed By: #### B MP #### [facility] [address] [address] [address] Denae Davis Creatinine [Mass/Vol] 1.15 mg/dL Normal 0.70-1.30 [facility] Comment on above: Performed By: #### B MP #### [facility] [address] [address] [address] Denae Davis EGFR-AF WALLISIAN >60 Normal >=60 [facility] Comment on above: Performed By: #### B MP #### [facility] [address] [address] [address] Denae Davis EGFR-NON AF WALLISIAN >60 Normal >=60 [facility] Comment on above: Performed By: #### B MP #### [facility] [address] [address] [address] Denae Davis Glucose [Mass/Vol] 103 mg/dL Normal 74-106 [facility] Comment on above: Performed By: #### B MP #### [facility] [address] [address] [address] Denae Davis Potassium [Moles/Vol] 4.2 mmol/L Normal 3.5-5.1 [facility] Comment on above: Performed By: #### B MP #### [facility] [address] [address] [address] Denae Davis Sodium [Moles/Vol] 139 mmol/L Normal 136-145 [facility] Comment on above: Performed By: #### B MP #### [facility] [address] [address] [address] Denae Davis Urea nitrogen [Mass/Vol] 17.0 mg/dL Normal 7.0-18.0 [facility] Comment on above: Performed By: #### B MP #### [facility] [address] [address] [address] Denae Davis Urea nitrogen/Creatinine [Mass ratio] 14.8 mg/mg Normal [facility] Comment on above: Performed By: #### B MP #### [facility] [address] [place] [address] Dr. Denae Davis ANES POSTPROC EVALon 022 ANES POSTPROC EVAL HNO ID: [id number] Author: Alena Mortensen MD Service: Anesthesiology Author Type: Anesthesiologist Type: Anesthesia Postprocedure Evaluation Filed: 01/10/2022 1:23 PM Note Text: POST ANESTHESIA EVALUATION NOTE : 1950 Procedure Summary Date: 01/10/22 Room / Location: OR05 / OR Anesthesia Start: 1050 Anesthesia Stop: 1234 Procedures: LAPAROSCOPY DIAGNOSTIC ABDOMEN, PERITONEUM AND OMENTUM (N/A Abdomen) LAPAROSCOPIC BIOPSY LIVER (N/A Abdomen) Diagnosis: Liver mass (Liver mass [R16.0]) Surgeons: Bj Mota MD Responsible Provider: Alena Mortensen MD Anesthesia Type: general ASA Status: 4 Anesthesia Type: general Airway Type: ETT Last Vitals Vitals Value Taken Time BP 116/56 01/10/22 1300 Temp 36.2 ?C (97.2 ?F) 01/10/22 1230 Pulse 47 01/10/22 1319 Resp 16 01/10/22 1319 SpO2 97 % 01/10/22 1319 Vitals shown include unvalidated device data. [facility] AN POST OP NOTE Anesthesia Observations No Documentation SIGNATURE: Alena Mortensen MD PATIENT NAME: Alessio Burns DATE: January 10, 2022 TIME: 1:22 PM CSN: [id number] [facility] ANES PRE-OPon 01-10-2022 ANES PRE-OP HNO ID: [id number] Author: Alena Mortensen MD Service: Anesthesiology Author Type: Anesthesiologist Type: Anesthesia Preprocedure Evaluation Filed: 01/10/2022 10:12 AM Note Text: ANESTHESIOLOGY DAY OF SURGERY NOTE : 1950 Procedure Information Date/Time: 01/10/22 1030 Procedures: LAPAROSCOPY DIAGNOSTIC ABDOMEN, PERITONEUM AND OMENTUM (N/A Abdomen) - keep 2nd case transportation issues LAPAROSCOPIC BIOPSY LIVER (N/A Abdomen) Location: OR05 / OR Surgeons: Bj Mota MD Estimated body mass index is 26.3 kg/m? as calculated from the following: Height as of 01/05/22: 172.7 cm (5' 8 ). Weight as of 01/05/22: 78.5 kg (173 lb). Most recent hematocrit and potassium results: Hematocrit 39.3 01/05/2022 Potassium 4.5 01/05/2022 Relevant Problems CARDIO (+) Aneurysm of thoracic aorta (HCC) (+) Aortic valve stenosis (+) Carotid artery stenosis (+) Coronary arteriosclerosis (+) HTN (hypertension) (+) Hx of CABG PULMONARY (+) COPD (chronic obstructive pulmonary disease) (HCC) I - PHYSICAL EVALUATION AIRWAY Patient intubated: No. Tracheostomy tube not present Mallampati: III. TM distance: >3 FB. Neck ROM: limited flexion and extension. Mouth opening: non-adequate. Short neck: yes. Thick neck: yes II - ANESTHESIA PLAN ASA Score: 4 Anesthetic Plan: general Airway type: ETT Monitoring plan: invasive hemodynamic monitoring. Monitoring method: arterial Line Patient / Surrogate agrees to blood products: Yes Potential Anesthesia issues that may suggest increased risk of complications or contraindication to planned procedure: potential difficult intubation and potential difficult IV access. Vitals Value Taken Time BP 135/63 01/10/22915 Pulse 51 01/10/22915 Resp 18 01/10/22915 Temp 36.4 ?C (97.5 ?F) 01/10/22915 SpO2 100 % 01/10/22915 Facility-Administere d Medications as of 01/10/2022 Medication Dose Route Frequency - lidocaine 10 mg/mL (1 %) 1-2 mg injection (XYLOCAINE) 0.1-0.2 mL INTRADERMAL PRN - lactated ringers iv infusion 5-30 mL/hr INTRAVENOUS CONTINUOUS - heparin 5,000 Units injection 5,000 Units SUBCUTANEOUS ONCE - ceFAZolin iv piggyback 2 g in D5W (iso-osmotic) 100 mL (ANCEF) 2 g INTRAVENOUS Pre-Op Once - [COMPLETED] acetaminophen 1,000 mg tab(s) (TYLENOL) 1,000 mg ORAL ONCE Outpatient Medications as of 01/10/2022 Medication Sig - potassium chloride ER (K-DUR, KLOR-CON) 20 mEq tablet Take 20 mEq by mouth once daily. - levoFLOXacin (LEVAQUIN) 750 mg tablet Take 750 mg by mouth once daily. - predniSONE (DELTASONE) 20 mg tablet Take 40 mg by mouth daily with food. - amLODIPine (NORVASC) 10 mg tablet Take 10 mg by mouth once daily. - busPIRone (BUSPAR) 15 mg tablet Take 15 mg by mouth three times daily. - budesonide-formotero l (SYMBICORT) 160-4.5 mcg/actuation inhaler Symbicort 160 mcg-4.5 mcg/actuation HFA aerosol inhaler INHALE 2 PUFFS BY MOUTH TWICE DAILY - albuterol HFA (PROVENTIL HFA, VENTOLIN HFA) 90 mcg/actuation inhaler albuterol sulfate HFA 90 mcg/actuation aerosol inhaler INHALE 2 PUFFS BY MOUTH EVERY 4 TO 6 HOURS NEEDED for shortness of breath and FOR WHEEZING - furosemide (LASIX) 40 mg tablet furosemide 40 mg tablet TAKE 1 TABLET BY MOUTH DAILY - metoprolol succinate ER (TOPROL XL) 50 mg 24 hr tablet metoprolol succinate ER 50 mg tablet,extended release 24 hr TAKE 1 TABLET BY MOUTH EVERY DAY - sacubitril-valsartan (ENTRESTO) 97-103 mg tablet Entresto 97 mg-103 mg tablet TAKE 1 TABLET BY MOUTH TWICE DAILY - Nebulizer and Compressor For Neb 1 Each three times daily as needed. - Albuterol Sulfate 1.25 mg/3 mL nebulizer solution Use 1 Ampule via nebulizer every 6 hours as needed for wheezing/shortness of breath. - sildenafil (VIAGRA) 25 mg tablet sildenafil 25 mg tablet TAKE 1 TABLET BY MOUTH 30 MINUTES BEFORE sexual activity - traZODone (DESYREL) 50 mg tablet Take 50 mg by mouth once daily. - aspirin, enteric coated (ASPIRIN, ENTERIC COATED) 81 mg EC tablet q 24 HR. - atorvastatin (LIPITOR) 40 mg tablet atorvastatin 40 mg tablet TAKE 1 TABLET BY MOUTH AT BEDTIME - clopidogrel (PLAVIX) 75 mg tablet clopidogrel 75 mg tablet TAKE 1 TABLET BY MOUTH ONCE DAILY - nitroglycerin sublingual (NITROQUICK) 0.4 mg SL tablet nitroglycerin 0.4 mg sublingual tablet DISSOLVE 1 TABLET UNDER THE TONGUE NEEDED FOR CHEST PAIN- MAY REPEAT EVERY 5 MINUTES IF NEEDED ( MAX 3 DOSES.- IF NO RELIEF CALL 911) I have interviewed and examined the patient. I have reviewed the medical record and/or the pre-anesthesia evaluation, pertinent labs, and test results. This contains updated information obtained within 48 hours of Surgery/Procedure. SIGNATURE: Alena Mortensen MD PATIENT NAME: Alessio Burns DATE: January 10, 2022 TIME: 10:11 AM CSN: [id number] [facility] BRIEF OP NOTon 01-10-2022 BRIEF OP NOT HNO ID: [id number] Author: Natacha Melo MD Service: General Surgery Author Type: Resident Type: Brief Op Note Filed: 01/10/2022 12:20 PM Note Text: BRIEF OPERATIVE / PROCEDURE NOTE LOG ID: [id number] SURGERY/PROCEDURE DATE: 01/10/2022 INCISION/PROCEDURE START TIME: 11:28 AM INCISION CLOSE/PROCEDURE END TIME: 12:16 PM SURGEON(S)/PROCEDURA LIST(S) AND CNC SERVICE ENGINEER(S): Surgeon(s) and Role: * Bj Mota MD - Primary * Natacha Melo MD - Resident - Assisting No Additional Staff SURGERY/PROCEDURE(S) : Diagnostic laparoscopy, liver excisional biopsy, intraoperative liver ultrasound ANESTHESIA: General FINDINGS: Cystic mucinous mass consistent with lesion on imaging ESTIMATED BLOOD LOSS: 20 mls SPECIMENS: Liver lesion COMPLICATIONS: None PRE-OP/PRE-PROCEDURE DIAGNOSIS: Liver mass POST-OP/POST-PROCEDU RE DIAGNOSIS: Same as Preop SIGNATURE: Natacha Melo MD PATIENT NAME: Alessio Burns DATE: January 10, 2022 TIME: 12:19 PM [facility] NURSING PROGon 01-10-2022 NURSING PROG HNO ID: [id number] Author: Carmen Huizar RN Service: ? Author Type: Registered Nurse Type: Nursing Progress Note Filed: 01/10/2022 8:54 AM Note Text: PATIENT EDUCATION TOPIC: PROCEDURE / SURGERY: Pre-op Teaching: Logistics Protocols PATIENT NAME: Alessio Burns PATIENT LOCATION: [facility] OR POOL/[facility] OR POOL READINESS TO LEARN COGNITIVE ABILITY: Alert and oriented MOTIVATION TO LEARN: Eager FAMILY SUPPORT: None - Unavailable/disinter ested INSTRUCTION PROVIDED TO: Patient PATIENT LEARNS BEST BY: Individual Instruction FACTORS AFFECTING LEARNING: None PHYSICAL LIMITATIONS AFFECTING LEARNING: None LEARNING RESPONSE DIAGNOSIS: ADULT: Well Adult PATIENT/FAMILY RESPONSE: Verbalizes understanding of: PRE-OPERATIVE INSTRUCTIONS-Correct action to take to follow pre-operative instructions METHOD OF INSTRUCTION: Individual instruction FOLLOW-UP PLAN: Complete - No need for follow-up INSTRUCTIONAL AIDS USED: NA SUPPLEMENTAL MATERIAL PROVIDED TO PATIENT: None REFERRAL (RECOMMENDATION): None Electronically Signed By: Carmen Huizar [facility] OPERATIVE NOon 01-10-2022 OPERATIVE NO HNO ID: [id number] Author: Bj Mota MD Service: General Surgery Author Type: Physician Type: Operative Report Filed: 01/12/2022 2:26 PM Note Text: [facility] - Operative Report ALESSIO BURNS : 1950 AGE: 71. SEX: M PATIENT TYPE: A [facility] [place]: [facility] LOCATION: [facility] ATTENDING PHYSICIAN: Bj Mota MD CSN NUMBER: [id number] DATE OF SURGERY/PROCEDURE: 01/10/2022 INCISION/PROCEDURE START TIME: 11:28 AM INCISION CLOSE/PROCEDURE END TIME: 12:16 PM PREOPERATIVE DIAGNOSIS: Liver mass. POSTOPERATIVE DIAGNOSIS: Liver mass. SURGEON: Bj Mota MD CNC SERVICE ENGINEER: Radha Melo MD. SURGERY/PROCEDURE: 1. Diagnostic laparoscopy. 2. Laparoscopic liver ultrasound. 3. Laparoscopic incisional biopsy of liver mass. ANESTHESIA: General endotracheal anesthesia. COMPLICATIONS: None. ESTIMATED BLOOD LOSS: 40 mL. SPECIMENS: Liver mass. WOUND CLASS: 1. INDICATION: Patient is a pleasant gentleman with a previous history of a right partial lobectomy for lung cancer, was noted to have a new liver lesion. This was noted to be suspicious for a metastasis, however, a biopsy could not be obtained as this was high in the dome of the liver. Patient was referred to hi for an operative biopsy. OPERATIVE FINDINGS: Cystic liver mass was noted in the dome of the liver. This was excised and was sent for permanent. DESCRIPTION OF PROCEDURE: The patient was identified and brought to the operating room and placed supine on the operating table. General anesthesia was induced. The abdomen was prepped and draped in standard surgical fashion. A 5 mm left upper quadrant incision was made and entry was gained in to the abdomen using standard Optiview technique. Under direct vision, a 5 mm port was placed in the epigastric region. A 12 mm port was placed in the right midabdomen. The patient was placed in a head-up position. Gross inspection of the liver noted a cystic appearing indentation just below the dome of the liver. An ultrasound of the liver did not reveal any additional liver masses. This was in the area of the imaging abnormality. The superficial surface of the mass was marked using electrocautery. We used sharp cut using the scissor to incise the mass. The contents were noted to be mucinous. This was placed in EndoCatch bag and retrieved through the 12 mm port site. The operative bed was cauterized. No evidence of any bleeding was noted. A small piece of Surgicel was left. The sponge and instrument counts were noted to be correct. All the ports were removed under direct vision. The fascia at the 12 mm port site was closed using Vicryl. The skin was closed using Monocryl and SureClose. Patient tolerated the procedure without complications. I was present and scrubbed in throughout the operation. Bj Mota MD TA:[id number] [facility] PT EDon 01-10-2022 PT ED HNO ID: [id number] Author: Kajal Acosta RN Service: Nursing Author Type: Registered Nurse Type: Patient Education Filed: 01/10/2022 4:35 PM Note Text: PATIENT EDUCATION TOPIC: PROCEDURE / SURGERY: Post-op Teaching: Symptom Management READINESS TO LEARN COGNITIVE ABILITY: Alert and oriented MOTIVATION TO LEARN: Interested FAMILY SUPPORT: High - Very involved in pt care INSTRUCTION PROVIDED TO: Patient and family member PATIENT LEARNS BEST BY: Individual Instruction Written Instruction - Hand-outs Verbal Instruction FACTORS AFFECTING LEARNING: None PHYSICAL LIMITATIONS AFFECTING LEARNING: None LEARNING RESPONSE PATIENT/FAMILY RESPONSE: Information received as demonstrated by interest and questions METHOD OF INSTRUCTION: Teachback, Individual instruction Written instruction - handouts Verbal instruction including teachback FOLLOW-UP PLAN: Patient instructed to call with any further issues, Will receive a follow up phone call, and contact information given. INSTRUCTIONAL AIDS USED: NA SUPPLEMENTAL MATERIAL PROVIDED TO PATIENT: Post op discharge instructions. [facility] SURGICAL PATHOLOGYon 022 CASE REPORT [facility] Comment on above: Order Comment: Speci men Type: TISSUE SPECIMEN Ordering Facility: [facility] Address: [address] [place] [id number] Result Comment: Surg ical Pathology Report Case: [id number] Authorizing Provider: Bj Mota MD Collected: 01/10/2022 11:56 AM Ordering Location: [facility] Received: 01/10/2022 01:36 PM Operating Room Pathologist: Crystal Darden MD Specimen: LIVER PARTIAL RESECTION, liver mass Performed By: #### S #### [facility] CLIA [id number] [address] [place] [address] DIAGNOSIS COMMENT Normal [facility] Comment on above: Order Comment: Speci men Type: TISSUE SPECIMEN Ordering Facility: [facility] Address: [address] [place] [address] Result Comment: We n ote the clinical history of a cystic liver mass. The lesion consists of a cyst lined by ciliated pseudostratified columnar epithelium with goblet cells consistent with a foregut cyst. Dysplasia is not identified. The adjacent liver parenchyma shows overall preservation of the hepatic architecture. Mild portal inflammation without interface hepatitis is identified. The interlobular bile ducts are intact. Macrovesicular steatosis is inconspicuous. No significant lobular inflammation is noted. Iron stain is negative for iron deposits. A trichrome stain shows no significant evidence of fibrosis. Performed By: #### S #### [facility] CLIA [id number] [address] [place] [address] FINAL DIAGNOSIS Normal [facility] Comment on above: Order Comment: Speci men Type: TISSUE SPECIMEN Ordering Facility: [facility] Address: [address] [place] [address] Result Comment: Viktoriya deras, partial resection: - Ciliated foregut cyst. - Parenchymal margin is not involved. - Hepatic parenchyma with mild portal inflammation. AEB/tg 01/13/2022 Performed By: #### S #### [facility] CLIA [id number] [address] [place] [address] FINAL PERFORMING LAB Normal [facility] Comment on above: Order Comment: Speci men Type: TISSUE SPECIMEN Ordering Facility: [facility] Address: [address] [place] [address] Result Comment: Diag nostic interpretation performed at [place] [address] CLIA# [id number] Institutional Cook: Denzel Vela M.D. Performed By: #### S #### [facility] CLIA [id number] [address] [place] [address] [place] GROSS DESCRIPTION Normal [facility] Comment on above: Order Comment: Speci men Type: TISSUE SPECIMEN Ordering Facility: [facility] Address: [address] [place] [address] Result Comment: A. L IVER PARTIAL RESECTION. Received in formalin labeled as liver mass is a wedge of liver parenchyma measuring 3.0 x 2.3 x 1.0 cm and weighing 2 g. The capsule shows cautery artifact and is inked black. The resection margin is inked orange. Sectioning reveals a smooth empty cyst measuring 1.1 x 0.8 x 0.5 cm. The the cyst extends within 1 mm of the capsule and abuts the parenchymal resection margin. The specimen is entirely submitted in formalin as follows: A1-A2 cyst in relationship to resection margin, A3-A4 remainder of specimen. Gross examination performed at [facility], [address] [place], [place] [address]IA# [id number] [place] January 12, 2022 9:23 AM Performed By: #### S #### [facility] IA [id number] [address] [place] [address] [place] Basic metabolic 2000 panelon 01-05-2022 Anion gap [Moles/Vol] 13 mmol/L 9 - 18 mmol/L [facility] Calcium [Mass/Vol] 9.8 mg/dL 8.5 - 10. 2 mg/dL [facility] Chloride [Moles/Vol] 101 mmol/L 97 - 10 5 mmol/L [facility] CO2 [Moles/Vol] 24 mmol/L 22 - 30 mmol/L [facility] Creatinine [Mass/Vol] 0.90 mg/dL 0.73 - 1.22 mg/dL [facility] Estimated Glomerular Filtration Rate 92 mL/min/1.73m >=60 mL/min/1.73m [facility] Glucose [Mass/Vol] 101 mg/dL High 74 - 99 mg/dL [facility] Potassium [Moles/Vol] 4.5 mmol/L 3.7 - 5.1 mmol/L [facility] Sodium [Moles/Vol] 138 mmol/L 136 - 144 mmol/L [facility] Urea nitrogen [Mass/Vol] 12 mg/dL 9 - 24 mg/dL [facility] CBC W Auto Differential pane l (Bld)on 01-05-2022 Abs Immature Gran 0.06 k/uL <0.10 k/uL [facility] Basophils (Bld) [#/Vol] 0.05 10*3/uL <0.11 k/uL [facility] Basophils/100 WBC (Bld) 0.5 % [facility] Differential cell count method Nom (Bld) Auto [facility] Eosinophils (Bld) [#/Vol] 0.28 10*3/uL <0.46 k/uL [facility] Eosinophils/100 WBC (Bld) 2.6 % [facility] Erythrocyte distribution width (RBC) [Ratio] 17.2 % High 11.5 - 15.0 % [facility] Hematocrit (Bld) [Volume fraction] 39.3 % 39.0 - 51.0 % [facility] Hemoglobin (Bld) [Mass/Vol] 12.8 g/dL Low 13.0 - 17.0 g/dL [facility] Immature Gran % 0.6 % [facility] Lymphocytes (Bld) [#/Vol] 1.60 10*3/uL 1.00 - 4.00 k/uL [facility] Lymphocytes/100 WBC (Bld) 15.1 % [facility] MCH (RBC) [Entitic mass] 28.8 pg 26.0 - 34.0 pg [facility] MCHC (RBC) [Mass/Vol] 32.6 g/dL 30.5 - 36.0 g/dL [facility] MCV (RBC) [Entitic vol] 88.5 fL 80.0 - 100.0 fL [facility] Monocytes (Bld) [#/Vol] 1.02 10*3/uL High <0.87 k/uL [facility] Monocytes/100 WBC (Bld) 9.6 % [facility] Neutrophils (Bld) [#/Vol] 7.59 10*3/uL High 1.45 - 7.50 k/uL [facility] Neutrophils/100 WBC (Bld) 71.6 % [facility] Nucleated RBC (Bld) [#/Vol] 10*3/uL <0.01 k/uL [facility] Nucleated RBC/100 WBC (Bld) [Ratio] 0.0 /100 WBC [facility] Platelet mean volume (Bld) [Entitic vol] 9.4 fL 9.0 - 12.7 fL [facility] Platelets (Bld) [#/Vol] 251 10*3/uL 150 - 400 k/uL [facility] RBC (Bld) [#/Vol] 4.44 10*6/uL 4.20 - 6.0 0 m/uL [facility] WBC (Bld) [#/Vol] 10.60 10*3/uL 3.70 - 11 .00 k/uL [facility] CHEST AND LATERALon 10-12-19 CHEST [address]ERAL [facility] Department of Radiology [address] [place] [id number] Patient Name: ALESSIO BURNS : 1950 Sex: M Age: Race: White Pt. Location: Patient Status: O Ordered Date: 10/12/2020 11:20:00 AM Completed Date: 10/12/2020 11:24 AM Requesting Provider: RUSS LISA Attending Provider: RUSS LISA Report Copy To: Signs & Symptoms: R91.8 Other nonspecific abnormal finding of lung field I10 History: Arnett Comments: Exam: CHEST AND LATERAL CHEST AND LATERAL 10/12/2020 11:24 AM CLINICAL INDICATIONS: R91.8 Other nonspecific abnormal finding of lung field I10 TECHNOLOGIST COMMENTS: follow up lung mass cabg in Aug 2020 QUESTION FOR THE RADIOLOGIST: PROTOCOL: AP(PA) and Lateral views were obtained. COMPARISON: CT chest 06/01/2020 FINDINGS: Moderately elevated right hemidiaphragm. Normal heart size. Status post median sternotomy. No airspace disease, pleural effusions, pulmonary edema or pneumothorax. IMPRESSION: 1. No acute cardiopulmonary disease. 2. Moderately elevated right hemidiaphragm. Electronically signed: Car Werner. Transcribed by: [email or web address], User Resident: Electronically Signed by: CAR WERNER @ 10/12/2020 11:33 AM Normal [facility] Vital Signs Date Time Vital Sign Value Performing Clinician Facility 08-14-2023 09:00-0500 Body height 167.64 cm Tavo Hull Other [employer] Other 08-14-2023 09:00-0500 Body mass index (BMI) [Ratio] 31.1 kg/m2 Tavo Hull Other [employer] Other 08-14-2023 09:00-0500 Body weight 87.41 kg Tavo Hull Other [employer] Other 08-14-2023 09:00-0500 Diastolic blood pressure 57 mm[Hg] Tavo Hull Other [employer] Other 08-14-2023 09:00-0500 Systolic blood pressure 126 mm[Hg] Tavo Hull Other [employer] Other 08-11-2023 14:23-0500 Body temperature 97.39 [degF] Jaya Bai MD Work Phone: [facility] 08-11-2023 14:23-0500 Body weight 87.91 kg Jaya Bai MD Work Phone: [facility] 08-11-2023 14:23-0500 Diastolic blood pressure 60 mm[Hg] Jaya Bai MD Work Phone: [facility] 08-11-2023 14:23-0500 Heart rate 59 /min Jaya Bai MD Work Phone: [facility] 08-11-2023 14:23-0500 Respiratory rate 16 /min Jaya Bai MD Work Phone: [facility] 08-11-2023 14:23-0500 SaO2% (BldA) [Mass fraction] 94 % Jaya Bai MD Work Phone: [facility] 08-11-2023 14:23-0500 Systolic blood pressure 148 mm[Hg] Jaya Bai MD Work Phone: [facility] 05-30-2023 14:05-0400 Diastolic blood pressure 45 mm[Hg] MD Shaikh Etienne Work Phone: [facility] 05-30-2023 14:05-0400 Heart rate 56 /min MD Shaikh Etienne Work Phone: [facility] 05-30-2023 14:05-0400 Respiratory rate 18 /min MD Shaikh Etienne Work Phone: [facility] 05-30-2023 14:05-0400 SaO2% (BldA) [Mass fraction] 96 % MD Shaikh Etienne Work Phone: [facility] 05-30-2023 14:05-0400 Systolic blood pressure 127 mm[Hg] MD Shaikh Etienne Work Phone: [facility] 05-30-2023 12:53-0400 Body height 167.64 cm MD Shaikh Etienne Work Phone: [facility] 05-30-2023 12:53-0400 Body weight 82.55 kg MD Shaikh Etienne Work Phone: [facility] 05-05-2023 14:04-0400 Body height 167.6 cm Jaya Bai MD Work Phone: [facility] 05-05-2023 14:04-0400 Body temperature 97.59 [degF] Jaya Bai MD Work Phone: [facility] 05-05-2023 14:04-0400 Body weight 82.56 kg Jaya Bai MD Work Phone: [facility] 05-05-2023 14:04-0400 Diastolic blood pressure 54 mm[Hg] Jaya Bai MD Work Phone: [facility] 05-05-2023 14:04-0400 Heart rate 57 /min Jaya Bai MD Work Phone: [facility] 05-05-2023 14:04-0400 Respiratory rate 16 /min Jaya Bai MD Work Phone: [facility] 05-05-2023 14:04-0400 SaO2% (BldA) [Mass fraction] 98 % Jaya Bai MD Work Phone: [facility] 05-05-2023 14:04-0400 Systolic blood pressure 119 mm[Hg] Jaya Bai MD Work Phone: [facility] 03-03-2023 13:40-0400 Body height 167.6 cm Jaya Bai MD Work Phone: [facility] 03-03-2023 13:40-0400 Body temperature 97.59 [degF] Jaya Bai MD Work Phone: [facility] 03-03-2023 13:40-0400 Body weight 83.64 kg Jaya Bai MD Work Phone: [facility] 03-03-2023 13:40-0400 Diastolic blood pressure 59 mm[Hg] Jaya Bai MD Work Phone: [facility] 03-03-2023 13:40-0400 Heart rate 61 /min Jaya Bai MD Work Phone: [facility] 03-03-2023 13:40-0400 Respiratory rate 16 /min Jaay Bai MD Work Phone: [facility] 03-03-2023 13:40-0400 SaO2% (BldA) [Mass fraction] 96 % Jaya Bai MD Work Phone: [facility] 03-03-2023 13:40-0400 Systolic blood pressure 110 mm[Hg] Jaya Bai MD Work Phone: [facility] 01-04-2023 13:43-0400 Body height 167.6 cm Jaya Bai MD Work Phone: [facility] 01-04-2023 13:43-0400 Body temperature 97.5 [degF] Jaya Bai MD Work Phone: [facility] 01-04-2023 13:43-0400 Body weight 85.46 kg Jaya Bai MD Work Phone: [facility] 01-04-2023 13:43-0400 Diastolic blood pressure 62 mm[Hg] Jaya Bai MD Work Phone: [facility] 01-04-2023 13:43-0400 Heart rate 59 /min Jaya Bai MD Work Phone: [facility] 01-04-2023 13:43-0400 Respiratory rate 16 /min Jaya Bai MD Work Phone: [facility] 01-04-2023 13:43-0400 SaO2% (BldA) [Mass fraction] 98 % Jaya Bai MD Work Phone: [facility] 01-04-2023 13:43-0400 Systolic blood pressure 139 mm[Hg] Jaya Bai MD Work Phone: [facility] 10-07-2022 15:18-0500 Body height 167.6 cm Jaya Bai MD Work Phone: [facility] 10-07-2022 15:18-0500 Body temperature 97.81 [degF] Jaya Bai MD Work Phone: [facility] 10-07-2022 15:18-0500 Body weight 86.46 kg Jaya Bai MD Work Phone: [facility] 10-07-2022 15:18-0500 Diastolic blood pressure 52 mm[Hg] Jaya Bai MD Work Phone: [facility] 10-07-2022 15:18-0500 Heart rate 52 /min Jaya Bai MD Work Phone: [facility] 10-07-2022 15:18-0500 Respiratory rate 16 /min Jaya Bai MD Work Phone: [facility] 10-07-2022 15:18-0500 SaO2% (BldA) [Mass fraction] 100 % Jaya Bai MD Work Phone: [facility] 10-07-2022 15:18-0500 Systolic blood pressure 124 mm[Hg] Jaya Bai MD Work Phone: [facility] 07-21-2022 13:46-0500 Body height 167.6 cm Jaya Bai MD Work Phone: [facility] 07-21-2022 13:46-0500 Body temperature 97.11 [degF] Jaya Bai MD Work Phone: [facility] 07-21-2022 13:46-0500 Body weight 86.91 kg Jaya Bai MD Work Phone: [facility] 07-21-2022 13:46-0500 Diastolic blood pressure 66 mm[Hg] Jaya Bai MD Work Phone: [facility] 07-21-2022 13:46-0500 Heart rate 57 /min Jaya Bai MD Work Phone: [facility] 07-21-2022 13:46-0500 Respiratory rate 16 /min Jaya Bai MD Work Phone: [facility] 07-21-2022 13:46-0500 SaO2% (BldA) [Mass fraction] 96 % Jaya Bai MD Work Phone: [facility] 07-21-2022 13:46-0500 Systolic blood pressure 143 mm[Hg] Jaya Bai MD Work Phone: [facility] 04-18-2022 11:11-0400 Diastolic blood pressure 57 mm[Hg] MD Shaikh Etienne Work Phone: [facility] 04-18-2022 11:11-0400 Heart rate 51 /min MD Shaikh Etienne Work Phone: [facility] 04-18-2022 11:11-0400 Respiratory rate 18 /min MD Shaikh Etienne Work Phone: [facility] 04-18-2022 11:11-0400 SaO2% (BldA) [Mass fraction] 98 % MD Shaikh Etienne Work Phone: [facility] 04-18-2022 11:11-0400 Systolic blood pressure 129 mm[Hg] MD Shaikh Etienne Work Phone: [facility] 04-18-2022 09:13-0400 Body height 170.18 cm MD Shaikh Etienne Work Phone: [facility] 04-18-2022 09:13-0400 Body temperature 98.5 [degF] MD Shaikh Etienne Work Phone: [facility] 04-18-2022 09:13-0400 Body weight 77.11 kg MD Shaikh Etienne Work Phone: [facility] 03-31-2022 13:44-0400 Body height 172.7 cm Jaya Bai MD Work Phone: [facility] 03-31-2022 13:44-0400 Body temperature 97.81 [degF] Jaya Bai MD Work Phone: [facility] 03-31-2022 13:44-0400 Body weight 82.19 kg Jaya Bai MD Work Phone: [facility] 03-31-2022 13:44-0400 Diastolic blood pressure 58 mm[Hg] Jaya Bai MD Work Phone: [facility] 03-31-2022 13:44-0400 Heart rate 52 /min Jaya Bai MD Work Phone: [facility] 03-31-2022 13:44-0400 Respiratory rate 16 /min Jaya Bai MD Work Phone: [facility] 03-31-2022 13:44-0400 SaO2% (BldA) [Mass fraction] 98 % Jaya Bai MD Work Phone: [facility] 03-31-2022 13:44-0400 Systolic blood pressure 117 mm[Hg] Jaya Bai MD Work Phone: [facility] 01-05-2022 11:00-0400 Body height 172.7 cm Pacc 3 Work Phone: [facility] 01-05-2022 11:00-0400 Body temperature 97.7 [degF] Pacc 3 Work Phone: [facility] 01-05-2022 11:00-0400 Body weight 78.47 kg Pacc 3 Work Phone: [facility] 01-05-2022 11:00-0400 Diastolic blood pressure 59 mm[Hg] Pacc 3 Work Phone: [facility] 01-05-2022 11:00-0400 Heart rate 57 /min Pacc 3 Work Phone: [facility] 01-05-2022 11:00-0400 Respiratory rate 20 /min Pacc 3 Work Phone: [facility] 01-05-2022 11:00-0400 SaO2% (BldA) [Mass fraction] 97 % Pacc 3 Work Phone: [facility] 01-05-2022 11:00-0400 Systolic blood pressure 127 mm[Hg] Pacc 3 Work Phone: [facility] Encounters Encounter Date Encounter Type Care Provider Facility Start: 08-18-2023 Telephone encounter Livier Wolfe RN [facility] Start: 08-14-2023 End: 08-14-2023 ambulatory Tavo Hull Other [employer] Other Start: 08-14-2023 Office outpatient vi sit 15 minutes Tavo GONZALEZ Gastroenterology Start: 08-11-2023 End: 08-11-2023 ambulatory JAYA ABHYDEBORAH Facility:[facility] Start: 08-11-2023 End: 08-11-2023 Office outpatient visit 25 minutes Jaya Bai MD Work Phone: Hematology/Oncology Comment on above: Malignant neoplasm o f unspecified part of unspecified bronchus or lung (HCC) (Primary Dx) Start: 08-11-2023 Telephone encounter Arabella mills RN Hematology/Oncology Comment on above: Orders Start: 08-04-2023 End: 08-04-2023 ambulatory JAYA ABHYDEBORAH Facility:[facility] Start: 05-30-2023 End: 05-30-2023 ambulatory Paramjit Spring Facility:[facility] Start: 05-30-2023 End: 05-30-2023 Admission to same day surgery center MD Shaikh Etienne Work Phone: [facility] Work Phone: Start: 05-30-2023 End: 05-30-2023 ambulatory MD Shaikh Etienne Work Phone: [facility] Work Phone: Start: 05-05-2023 End: 05-05-2023 ambulatory JAYA BAI Facility:[facility] Start: 05-05-2023 End: 05-05-2023 Office outpatient visit 25 minutes Jaya Bai MD Work Phone: Hematology/Oncology Comment on above: Abnormal finding on GI tract imaging (Primary Dx); Malignant neoplasm of unspecified part of unspecified bronchus or lung (HCC) Start: 05-05-2023 Telephone encounter [facility]ones MD [facility] Comment on above: Referral Information (GI) Start: 04-28-2023 End: 04-28-2023 [facility] Start: 04-05-2023 End: 04-05-2023 ambulatory [facility] Start: 03-03-2023 End: 03-03-2023 ambulatory JAYA BAI Facility:[facility] Start: 03-03-2023 End: 03-03-2023 Office outpatient visit 25 minutes Jaya Bai MD Work Phone: Hematology/Oncology Comment on above: Malignant neoplasm o f unspecified part of unspecified bronchus or lung (HCC) (Primary Dx); Lung nodules Start: 02-21-2023 End: 02-21-2023 ambulatory SHAIKH LOWELL Facility:[facility] Start: 01-06-2023 End: 01-07-2023 ambulatory SHAIKH Job ETIENNE Facility:[facility] Start: 01-06-2023 End: 01-07-2023 ambulatory SHAIKH NEENAJuan Facility:[facility] Start: 01-04-2023 End: 01-04-2023 ambulatory WIGGINS DARIUSZGermaineTXJuan Facility:[facility] Start: 01-04-2023 End: 01-04-2023 Office outpatient visit 25 minutes Jaya Bai MD Work Phone: Hematology/Oncology Comment on above: Malignant neoplasm o f unspecified part of unspecified bronchus or lung (HCC) (Primary Dx) Start: 01-02-2023 End: 01-02-2023 ambulatory [facility] Start: 11-22-2022 Telephone encounter Jaya jones MD Work Phone: [facility] Comment on above: Appointment Confirma tion Start: 11-22-2022 End: 11-22-2022 ambulatory JAYA BAI Facility:[facility] Start: 11-22-2022 End: 11-22-2022 ambulatory Jaya Bai MD Work Phone: Hematology/Oncology Comment on above: Malignant neoplasm o f unspecified part of unspecified bronchus or lung (HCC) (Primary Dx); Lung nodules; Positive TB test; Non-caseating granuloma Start: 11-22-2022 End: 11-22-2022 Telemedicine consultation with patient Jaya Bai MD Work Phone: [facility] Start: 11-01-2022 Telephone encounter Jaya jones MD Work Phone: Hematology/Oncology Comment on above: Records faxed Start: 10-07-2022 End: 10-07-2022 ambulatory JAYA BAI Facility:[facility] Start: 10-07-2022 End: 10-07-2022 Office outpatient visit 25 minutes Jaya Bai MD Work Phone: Hematology/Oncology Comment on above: Malignant neoplasm o f unspecified part of unspecified bronchus or lung (HCC) (Primary Dx) Start: 09-30-2022 End: 09-30-2022 ambulatory JAYA BAI Facility:[facility] Start: 09-19-2022 Telephone encounter Jony Spencer RN Hematology/Oncology Comment on above: Results Start: 09-15-2022 End: 09-15-2022 ambulatory JAYA BAI Facility:[facility] Start: 09-15-2022 Telephone encounter Jaya jones MD Work Phone: [facility] Comment on above: Appointment Consult Start: 07-21-2022 End: 07-21-2022 ambulatory Jaya Bai MD Work Phone: Hematology/Oncology Comment on above: Cancer of trachea, b ronchus, and lung (HCC) (Primary Dx); Lung nodules; Panlobular emphysema (HCC) Start: 07-21-2022 End: 07-21-2022 Patient encounter procedure Jaya Bai MD Work Phone: [facility] Start: 06-20-2022 End: 06-20-2022 [facility] Start: 04-14-2022 End: 04-14-2022 Patient encounter procedure MD Shaikh Etienne Work Phone: [facility] Start: 04-01-2022 Telephone encounter Jony Spencer RN Hematology/Oncology Comment on above: Results Start: 03-31-2022 End: 03-31-2022 ambulatory Jaya Bai MD Work Phone: Hematology/Oncology Comment on above: Malignant neoplasm o f unspecified part of unspecified bronchus or lung (HCC) (Primary Dx); Cancer of trachea, bronchus, and lung (HCC); Panlobular emphysema (HCC) Start: 03-31-2022 End: 03-31-2022 Patient encounter procedure Jaya Bai MD Work Phone: [facility] Start: 03-15-2022 End: 03-16-[address] SYDNIE AMBROSIO Facility: Start: 03-02-2022 End: 03-02-2022 ambulatory Jaya Bai MD Work Phone: Hematology/Oncology Comment on above: Cancer of trachea, b ronchus, and lung (HCC) (Primary Dx); Malignant neoplasm of unspecified part of unspecified bronchus or lung (HCC); Panlobular emphysema (HCC) Start: 03-02-2022 End: 03-02-2022 Telemedicine consultation with patient Jaya Bai MD Work Phone: [facility] Start: 03-01-2022 Telephone encounter Jaya jones MD Work Phone: [facility] Comment on above: Appointment Start: 02-25-2022 End: 02-26-2022 ambulatory SHAIKH Job ETIENNE Facility: Start: 01-06-2022 End: 01-07-2022 Patient encounter procedure Bj Mota MD Work Phone: General Surgery Comment on above: Liver mass (Primary Dx) Start: 01-05-2022 End: 01-05-2022 Admission to establishment Pacc [facility] 3 Work Phone: [facility] Start: 01-05-2022 End: 01-05-2022 [facility] 3 Work Phone: Pre Anesthesia Comment on above: Pre-op evaluation (P rimary Dx); Liver mass; Coronary arteriosclerosis; Chronic diastolic CHF (congestive heart failure) (HCC); Aortic valve stenosis, etiology of cardiac valve disease unspecified; Thoracic aortic aneurysm without rupture (HCC); Acute thrombus of left ventricle (HCC); Aortic valve replaced; Stenosis of carotid artery, unspecified laterality; Lung mass; Hx of CABG; Cancer of trachea, bronchus, and lung (HCC); Hypertension, unspecified type; Smoker; Chronic obstructive pulmonary disease, unspecified COPD type (HCC); Hyperlipidemia, unspecified hyperlipidemia type; Depression, unspecified depression type Start: 01-05-2022 End: 01-05-2022 Preprocedural examination done [facility] 3 Work Phone: Pre Anesthesia Start: 12-17-2021 End: 12-20-2021 ambulatory Jaya Bai MD Work Phone: Hematology/Oncology Comment on above: Cancer of trachea, b ronchus, and lung (HCC) (Primary Dx); Liver mass, right lobe Start: 12-17-2021 End: 12-20-2021 Telemedicine consultation with patient Jaya Bai MD Work Phone: [facility] Procedures Date Procedure Procedure Detail Performing Clinician Start: 05-30-2023 Esophagogastroduodenoscopy MD Shaikh Zina garcia Work Phone: Start: 01-05-2022 History of coronary artery bypass grafting Hx of CABG [facility] 3 Work Phone: Start: 02-05-2021 Adult depression screening assessment Jaya Bai MD Work Phone: SARS Antigen (LFIA) MD Shaik job Etienne Work Phone: Plan of Treatment Date Care Activity Detail Author Start: 08-04-2026 Diabetes Screening Diabetes Screenin g [facility] Start: 04-28-2026 Diabetes Screening Diabetes Screenin g [facility] Start: 01-04-2026 DIABETES SCREEN DIABETES SCREEN [facility] Start: 10-07-2025 DIABETES SCREEN DIABETES SCREEN [facility] Start: 09-15-2025 DIABETES SCREEN DIABETES SCREEN [facility] Start: 07-14-2025 DIABETES SCREEN DIABETES SCREEN [facility] Start: 03-31-2025 DIABETES SCREEN DIABETES SCREEN [facility] Start: 01-05-2025 DIABETES SCREEN DIABETES SCREEN [facility] Start: 12-10-2024 DIABETES SCREEN DIABETES SCREEN [facility] Start: 08-17-2024 Adult BMI Screening Adult BMI Screen ing [facility] Start: 08-17-2024 Tobacco Screening Tobacco Screening [facility] Start: 05-05-2024 BP Controlled (<130/80) BP Controlle d (<130/80) [facility] Start: 03-03-2024 BP CONTROLLED (<130/80) BP CONTROLLE D (<130/80) [facility] Start: 11-10-2023 End: 08-11-2024 CBC W Auto Differential panel - Blood CBC + DIFF Lab Routine Malignant neoplasm of unspecified part of unspecified bronchus or lung (HCC) Expected: 11/10/2023 (Approximate), Expires: 08/11/2024 [facility] Work Phone: Comment on above: Expected: 11/10/2023 (Approximate), Expires: 08/11/2024 Start: 11-10-2023 End: 08-11-2024 Comprehensive metabolic 2000 panel - Serum or Plasma COMP METABOLIC PANEL Lab Routine Malignant neoplasm of unspecified part of unspecified bronchus or lung (HCC) Expected: 11/10/2023 (Approximate), Expires: 08/11/2024 [facility] Work Phone: Comment on above: Expected: 11/10/2023 (Approximate), Expires: 08/11/2024 Start: 11-10-2023 End: 09-09-2024 CT CHEST W IVCON CT CHEST W IVCON Radiology Routine Malignant neoplasm of unspecified part of unspecified bronchus or lung (HCC) Expected: 11/10/2023 (Approximate), Expires: 09/09/2024 [facility] Work Phone: Comment on above: Expected: 11/10/2023 (Approximate), Expires: 09/09/2024 Start: 10-07-2023 BP CONTROLLED (<130/80) BP CONTROLLE D (<130/80) [facility] Start: 08-04-2023 End: 05-05-2024 CBC W Auto Differential panel - Blood CBC + DIFF Lab Routine Abnormal finding on GI tract imaging Malignant neoplasm of unspecified part of unspecified bronchus or lung (HCC) Expected: 08/04/2023 (Approximate), Expires: 05/05/2024 [facility] Work Phone: Comment on above: Expected: 08/04/2023 (Approximate), Expires: 05/05/2024 Start: 08-04-2023 End: 05-05-2024 Comprehensive metabolic 2000 panel - Serum or Plasma COMP METABOLIC PANEL Lab Routine Abnormal finding on GI tract imaging Malignant neoplasm of unspecified part of unspecified bronchus or lung (HCC) Expected: 08/04/2023 (Approximate), Expires: 05/05/2024 [facility] Work Phone: Comment on above: Expected: 08/04/2023 (Approximate), Expires: 05/05/2024 Start: 08-04-2023 End: 06-03-2024 NM PET/CT SKULL-THIGH SUBSEQUENT NM PET/CT SKULL-THIGH SUBSEQUENT Radiology Routine Abnormal finding on GI tract imaging Malignant neoplasm of unspecified part of unspecified bronchus or lung (HCC) Expected: 08/04/2023 (Approximate), Expires: 06/03/2024 [facility] Work Phone: Comment on above: Expected: 08/04/2023 (Approximate), Expires: 06/03/2024 Start: 06-03-2023 End: 03-03-2024 CBC W Auto Differential panel - Blood CBC + DIFF Lab Routine Malignant neoplasm of unspecified part of unspecified bronchus or lung (HCC) Lung nodules Expected: 06/03/2023 (Approximate), Expires: 03/03/2024 [facility] Work Phone: Comment on above: Expected: 06/03/2023 (Approximate), Expires: 03/03/2024 Start: 06-03-2023 End: 03-03-2024 Comprehensive metabolic 2000 panel - Serum or Plasma COMP METABOLIC PANEL Lab Routine Malignant neoplasm of unspecified part of unspecified bronchus or lung (HCC) Lung nodules Expected: 06/03/2023 (Approximate), Expires: 03/03/2024 [facility] Work Phone: Comment on above: Expected: 06/03/2023 (Approximate), Expires: 03/03/2024 Start: 06-03-2023 End: 04-01-2024 NM PET/CT SKULL-THIGH SUBSEQUENT NM PET/CT SKULL-THIGH SUBSEQUENT Radiology Routine Malignant neoplasm of unspecified part of unspecified bronchus or lung (HCC) Lung nodules Expected: 06/03/2023 (Approximate), Expires: 04/01/2024 [facility] Work Phone: Comment on above: Expected: 06/03/2023 (Approximate), Expires: 04/01/2024 Start: 05-30-2023 [facility] Start: 05-05-2023 Influenza vaccination C [facility] Start: 03-31-2023 BP CONTROLLED (<130/80) BP CONTROLLE D (<130/80) [facility] Start: 02-19-2023 End: 02-07-2024 NM PET/CT SKULL-THIGH SUBSEQUENT NM PET/CT SKULL-THIGH SUBSEQUENT Radiology Routine Malignant neoplasm of unspecified part of unspecified bronchus or lung (HCC) Expected: 02/19/2023 (Approximate), Expires: 02/07/2024 [facility] Work Phone: Comment on above: Expected: 02/19/2023 (Approximate), Expires: 02/07/2024 Start: 01-05-2023 BP CONTROLLED (<130/80) BP CONTROLLE D (<130/80) [facility] Start: 09-15-2022 End: 07-21-2023 CBC W Auto Differential panel - Blood CBC + DIFF Lab Routine Cancer of trachea, bronchus, and lung (HCC) Expected: 09/15/2022 (Approximate), Expires: 07/21/2023 [facility] Work Phone: Comment on above: Expected: 09/15/2022 (Approximate), Expires: 07/21/2023 Start: 09-15-2022 End: 07-21-2023 Comprehensive metabolic 2000 panel - Serum or Plasma COMP METABOLIC PANEL Lab Routine Cancer of trachea, bronchus, and lung (HCC) Expected: 09/15/2022 (Approximate), Expires: 07/21/2023 [facility] Work Phone: Comment on above: Expected: 09/15/2022 (Approximate), Expires: 07/21/2023 Start: 09-15-2022 End: 08-20-2023 CT CHEST W IVCON CT CHEST W IVCON Radiology Routine Cancer of trachea, bronchus, and lung (HCC) Lung nodules Expected: 09/15/2022 (Approximate), Expires: 08/20/2023 [facility] Work Phone: Comment on above: Expected: 09/15/2022 (Approximate), Expires: 08/20/2023 Start: 09-04-2022 ADVANCE DIRECTIVE DISCUSSION ADVANCE DIRECTIVE DISCUSSION [facility] Start: 08-03-2022 End: 04-03-2023 CBC W Auto Differential panel - Blood CBC + DIFF Lab Routine Malignant neoplasm of unspecified part of unspecified bronchus or lung (HCC) Expected: 08/03/2022 (Approximate), Expires: 04/03/2023 [facility] Work Phone: Comment on above: Expected: 08/03/2022 (Approximate), Expires: 04/03/2023 Start: 08-03-2022 End: 04-03-2023 Comprehensive metabolic 2000 panel - Serum or Plasma COMP METABOLIC PANEL Lab Routine Malignant neoplasm of unspecified part of unspecified bronchus or lung (HCC) Expected: 08/03/2022 (Approximate), Expires: 04/03/2023 [facility] Work Phone: Comment on above: Expected: 08/03/2022 (Approximate), Expires: 04/03/2023 Start: 08-03-2022 End: 05-03-2023 CT CHEST W IVCON CT CHEST W IVCON Radiology Routine Malignant neoplasm of unspecified part of unspecified bronchus or lung (HCC) Expected: 08/03/2022 (Approximate), Expires: 05/03/2023 [facility] Work Phone: Comment on above: Expected: 08/03/2022 (Approximate), Expires: 05/03/2023 Start: 05-05-2022 Influenza vaccination C [facility] Start: 04-18-2022 [facility] Work Phone: Start: 04-18-2022 Diagnostic endoscopi c examination on colon DH Colonoscopy Diagnostic (Not Applicable) [facility] Start: 04-18-2022 End: 04-18-2022 Admission to same day surgery center Personal history of colonic polyps [facility] Start: 03-30-2022 End: 03-02-2023 CBC W Auto Differential panel - Blood CBC + DIFF Lab Routine Malignant neoplasm of unspecified part of unspecified bronchus or lung (HCC) Cancer of trachea, bronchus, and lung (HCC) Panlobular emphysema (HCC) Expected: 03/30/2022 (Approximate), Expires: 03/02/2023 [facility] Work Phone: Comment on above: Expected: 03/30/2022 (Approximate), Expires: 03/02/2023 Start: 03-30-2022 End: 03-02-2023 Comprehensive metabolic 2000 panel - Serum or Plasma COMP METABOLIC PANEL Lab Routine Malignant neoplasm of unspecified part of unspecified bronchus or lung (HCC) Cancer of trachea, bronchus, and lung (HCC) Panlobular emphysema (HCC) Expected: 03/30/2022 (Approximate), Expires: 03/02/2023 [facility] Work Phone: Comment on above: Expected: 03/30/2022 (Approximate), Expires: 03/02/2023 Start: 03-30-2022 End: 04-01-2023 Ct thorax w/contrast material CT CHEST W IVCON Radiology Routine Malignant neoplasm of unspecified part of unspecified bronchus or lung (HCC) Cancer of trachea, bronchus, and lung (HCC) Panlobular emphysema (HCC) Expected: 03/30/2022 (Approximate), Expires: 04/01/2023 [facility] Work Phone: Comment on above: Expected: 03/30/2022 (Approximate), Expires: 04/01/2023 Start: 02-05-2022 Adult depression screening assessment DEPRESSION SCREENING [facility] Start: 01-05-2022 End: 03-07-2022 CONFIRM BLOOD TYPE [facility] Work Phone: Comment on above: Expected: 01/05/2022 , Expires: 03/07/2022 Start: 01-05-2022 End: 03-07-2022 TYPE AND SCREEN,30 DAY [facility] Work Phone: Comment on above: Expected: 01/05/2022 , Expires: 03/07/2022 Start: 09-04-2021 ADVANCE DIRECTIVE DISCUSSION ADVANCE DIRECTIVE DISCUSSION [facility] Start: 2016 Fall Risk Screening Fall Risk Screen [facility] Start: 2016 PNEUMOVAX AGE 65 AND OVER WITH 5YR LOOKBACK (#1) PNEUMOVAX AGE 65 AND OVER WITH 5YR LOOKBACK (#1) [facility] Start: 2011 RSV Vaccine (1 - 1-d ose 60+ series) RSV Vaccine (1 - 1-dose 60+ series) [facility] Start: 2001 SHINGRIX VACCINE (1 of 2) SHINGRIX VACCINE (1 of 2) [facility] Start: 1996 COLOGUARD (FIT-DNA) COLOGUARD (FIT-D NA) [facility] Start: 1996 Colonoscopy COLONOSCOPY [facility] Start: 1996 COLORECTAL CANCER SCREENING COLORECTAL CANCER SCREENING [facility] Start: [address] COLONOGRAPHY [facility] Start: 1996 FECAL OCCULT BLOOD FECAL OCCULT BLOO D [facility] Start: 1996 SIGMOIDOSCOPY SIGMOIDOSCOPY [facility] Start: 1986 Lipid 1996 panel - S ned or Plasma Lipid Screening [facility] Start: 1986 LIPID SCREEN LIPID SCREEN [facility] Start: 1981 Zoledronic acid therapy ALPHA- 1 ANTITRYPSIN DEFICIENCY SCREENING [facility] Start: 1970 Administration of varicella zoster vaccine Zoster (Shingles) Vaccine (1 of 2) [facility] Start: 1970 DTaP,Tdap and Td Vaccines (1 - Tdap) DTaP,Tdap and Td Vaccines (1 - Tdap) [facility] Start: 1970 SHINGRIX VACCINE (1 of 2) SHINGRIX VACCINE (1 of 2) [facility] Start: 1970 Urine microalbumin profile [facility] Start: 1969 Adult BMI Follow Up Plan Adult BMI Follow Up Plan [facility] Start: 1969 ANNUAL PCP TEAM LONG WINDER TENDER AVERY DISEASE VISIT ANNUAL PCP TEAM CHRONIC DISEASE VISIT [facility] Start: 1969 BP CONTROLLED (<130/80) BP CONTROLLE D (<130/80) [facility] Start: 1969 Hepatitis B surface antibody level LDL CHOLESTEROL [facility] Start: 1969 HEPATITIS C SCREENING HEPATITIS C SC REENING [facility] Start: 1969 SPIROMETRY SPIROMETRY [facility] Start: 1963 Depression Screening Depression Scre ening [facility] Start: 1957 Pneumococcal Vaccine : 65+ (1 - PCV) Pneumococcal Vaccine: 65+ (1 - PCV) [facility] Start: 1957 PNEUMOCOCCAL: 65+ (1 - PCV) PNEUMOCOCCAL: 65+ (1 - PCV) [facility] Start: 1956 COVID-19 VACCINE (#1) COVID-19 VACCI NE (#1) [facility] Start: 1956 COVID-19 VACCINE (1) COVID-19 VACCIN E (1) [facility] Start: 1951 COVID-19 VACCINE (#1) COVID-19 VACCI NE (#1) [facility] Start: 1951 ABDOMINAL AORTIC ANEURYSM SCREENING ABDOMINAL AORTIC ANEURYSM SCREENING [facility] Start: 1951 Medicare Annual Well ness Visit Medicare Annual Wellness Visit [facility] Start: 1951 Tobacco Counseling Tobacco Counselin g [facility] Biopsy liver needle percutaneous IMAGING GUIDED BIOPSY LIVER Radiology Routine Cancer of trachea, bronchus, and lung (HCC) Liver mass, right lobe Ordered: 12/17/2021 [facility] Work Phone: Comment on above: Ordered: 12/17/2021 [facility] Payers Date Payer Category Payer Self-pay [id number] 2021 Medicaid MEDICAID [facility] MEDICAID [id number] 2021-Present [phone] [address] [place] [address] Medicaid [id number] 2017 Medicaid [id number] 2016 Medicare MEDICARE MEDICAR E A AND B [id number] 2016-Present [phone] [place] [address] Medicare [id number] 2016 Medicare [id number] 1959 Medicaid [id number] 1959 Medicare [id number] 1951 Unknown [id number] 1951 Unknown [id number] 1951 Unknown [id number] Unknown [id number] Social History Date Type Detail Facility Start: 01-12-2021 End: 08-17-2023 Tobacco smoking status TXIS Smokes tobacco daily [facility] History of tobacco use Cigarette Smoker [facility] Start: 10-14-2020 End: 01-12-2021 Cigarettes smoked current (pack per day) - Reported 1 [facility] Start: 01-12-2021 End: 08-17-2023 Tobacco use and exposure Smokeless tobacco [facility] [facility] Start: 10-29-2021 End: 08-17-2023 Alcohol intake Ex-drinker (finding) [facility] Start: 1950 Sex Assigned At Not on file [facility] Start: 11-30-2021 End: 07-21-2022 Exposure to SARS-CoV-2 (event) Not sure [facility] Start: 04-18-2022 End: 05-30-2023 Tobacco smoking status NHIS Smoker (finding) [facility] Start: 1950 Sex Assigned At Male [facility] History of tobacco use Passive smoker [facility] Start: 10-14-2020 End: 01-04-2023 Tobacco use panel [facility] Adult Depression Screening Assessment 0 [facility] Goals Date Patient Goal Desired Activity /State Clinical Notes 12-17-2021 to 08-18-2023 Telephone Encounter - Livier Wolfe RN - 08/18/2023 11:17 AM ESTTelephone Encounter - ZEESHAN Mccall - 08/18/2023 11:17 AM ESTTelephone Encounter - Livier Wolfe RN - 08/18/2023 11:17 AM EST Note Date & Type Note Facility 08-18-2023 Miscellaneous Notes Formattin g of this note might be different from the original. Oanh from [facility] called and stated referral sent is missing pages. Oanh stated they were having fax issues. Please re-fax referral to them at fax: [phone] Office note faxed to [facility] documented in this encounter [facility] 08-18-2023 Telephone encount er Note Oanh from [facility] called and stated referral sent is missing pages. Oanh stated they were having fax issues. Please re-fax referral to them at fax: [phone] [facility] 08-18-2023 Telephone encount er Note Office note faxed to [facility] 08-14-2023 Evaluation note Encounter Date Diagnosis Assessment Notes Aug, H. pylori infection (ICD-10 - A04.8) Pt states the omeprazole is working well for him. Pt states he is not having daily bowel movements. Pt advised to use miralax once a day if he is having trouble going. Repeat daily until he has a bowel movement. Pt to continue the omeprazole and add miralax with it. Pt RTO in 3 months [employer] Other 12-08-2023 NoteHNO ID: [id number] Author: Jaya Bai MD Service: ? Author Type: Physician Type: Progress Notes Filed: 08/11/2023 10:23 PM Note Text: NAME: Alessio Burns CLINIC NO.: [id number] DATE OF SERVICE: August 11, 2023 (Zac) Some elements in this clinic note that are critical to medical decision making have been carefully reviewed and included from a prior clinic note dated: May 05, 2023 (Zac) Referring Provider: Dr. 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 He actually presented with an acute myocardial infarction and had to undergo CABG and aortic valve repair emergently in June 08, 2020. Subsequent work-up demonstrated malignancy with no evidence of metastatic disease and he underwent resection in July 2020 after he had recovered from his cardiac surgery. He was not a candidate for adjuvant therapy given his almost 6-month gap between resection and presentation to hi. He remains at high risk because of tobacco use. Restaging is non-specific for recurrence of lung cancer but short interval CT's found a new liver lesion which then persisted through December 2021. He saw Dr. Mota for resection 01/10/2022 - benign findings of ciliated foregut cyst. Colonoscopy. Done for + Cologuard was negative. Dyspnea wheezing - uses a nebulizer but is still smoking. New bilateral lung nodules - could be infectious / inflammatory however have continued to grow on serial CT scans. While these are highly suspicious, I suspect that they are too small to attempt biopsy which have confirmed with Dr. Carter. Will obtain PET scanning and then continue serial CT evaluation. Will consider thoracic surgery referral for biopsy as suspicion increases. Additional changes on CT January 04, 2023 with some resolution but some with growth. February 2023 repeat PET/CT shows progression of multiple pulmonary nodules with one nodule in the left upper lobe measuring 1.7 x 0.9 cm subpleural previously 0.8 x 0.7 cm FDG avidity with max SUV of 2.8. He also has a 1.0 x 0.8 cm posterior right lower lobe nodule that was previously 0.8 x 0.7 cm max SUV of 1.8. Since SUV measurements were stillfairly low, I obtained a repeat PET/CT 2 months later in April 2023 that showed improvement of all pulmonary nodules. However, there was some uptake in the distal stomach/proximal duodenum which will need further evaluation. PLAN: Trial of magnesium citrate to clear out. Triage to call Monday. If no success, will order CT A/P. Labs and CT Chest in 3 months. RTC 1 week after labs and scan. HPI: Case History: 08/04/2023 - PET CT: No evidence of focal uptake to suggest FDG avid neoplastic process in the head/neck, abdomen/pelvis, or extremities/skeleton. Chest: Slight improvement in left upper lobe lung nodule. Other nodules below PET resolution stable. Follow-up with CT advised. 05/30/2023 - [place] Duodenum: Mild bulbar duodenitis, otherwise normal. Stomach: Mild hemorrhagic gastritis, most pronounced in the antrum and distal body. Biopsies obtained, bottle 1-rule out H. Pylori. Otherwise unremarkable. Esophagus: Diaphragmatic hiatus was 43 cm from incisors and GE junction was at 41 cm from incisors. Squamocolumnar junction was at 41 cm from incisors. Mucosa appeared normal. 04/30/2023 - PET CT: Head and Neck: No evidence of FDG avid neoplastic process. Chest: Improvement of the bilateral pulmonary nodules, as described. Findings may be secondary to improving inflammatory/infectious process versus therapy response. No new/worsening lesions. Abdomen and pelvis: Persistent uptake at the distal stomach/proximal duodenum may be secondary to an underlying inflammatory process, although neoplastic etiology needs to be excluded. Musculoskeletal: No neoplastic hypermetabolic lesions. 02/21/2023 - PET/CT: Interval increase in size and number of innumerable bilateral pulmonary nodules some of which demonstrate borderline FDG activity. Findings are most compatible with metastatic disease. 09/30/2022 - PET CT: Multiple foci of uptake most active in MOOKIE. Concerning for metastatic disease. 07/14/2022 - CT Chest: Development of innumerable pulmonary nodules - infectous / inflammatory vs neoplastic. All below PET range (7mm and less). 12/10/2021 - CT Liver/Pelvis: Unchanged 1.1 cm hypodense subcapsular hepatic mass since 10/22/2021, which remains suspicious for a metastasis. Decrease in size of previously noted mildly enlarged lymph nodes. No progressive lymphadenopathy. Circumferential urinary bladder wall thickening, lik (more content not included)...[facility] 08-11-2023 Miscellaneous Notes* Telephone Encounter - Arabella Steele RN - 08/11/2023 4:40 PM EST Please refer to following encounter for details and follow up Arabella Steele RN * Telephone Encounter - Jaya Bai MD - 08/11/2023 4:35 PM EST Plenty of other options - dulcolax, miralax combo. * Telephone Encounter - Arabella Steele RN - 08/11/2023 3:21 PM EST Call received from Chiara @[email or web address] to inform that Mag citrate has been a backordered item for a while and not available. Would you like to order something else? FYI we do have 2 bottles here but pharmacy closes at 4 and patient lives [place] Arabella Steele, RN documented [facility] Instructions* Patient Instructions* Ling Muhammad - 08/11/2023 2:58 PM EST Trial of magnesium citrate to clear out. Triage to call Monday. If no success, will order CT A/P. Labs and CT Chest in 3 months. RTC 1 week after labs and scan. documented in [facility] History of Present illness Narrative* Jaya Bai MD - 08/11/2023 2:40 PM EST Images from the original note were not included. NAME: Alessio Burns [facility] NO.: [id number] DATE OF SERVICE: August 11, 2023 (Zac) Some elements in this clinic note that are critical to medical decision making have been carefully reviewed and included from a prior clinic note dated: May 05, 2023 (Zac) Referring Provider: Dr. 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 He actually presented with an acute myocardial infarction and had to undergo CABG and aortic valve repair emergently in June 08, 2020. Subsequent work-up demonstrated malignancy with no evidence of metastatic disease and he underwent resection in July 2020 after he had recovered from his cardiac surgery. He was not a candidate for adjuvant therapy given his almost 6-month gap between resection and presentation to hi. He remains at high risk because of tobacco use. Restaging is non-specific for recurrence of lung cancer but short interval CT's found a new liver lesion which then persisted through December 2021. He saw Dr. Mota for resection 01/10/2022 - benign findings of ciliated foregut cyst. Colonoscopy. Done for + Cologuard was negative. Dyspnea wheezing - uses a nebulizer but is still smoking. New bilateral lung nodules - could be infectious / inflammatory however have continued to grow on serial CT scans. While these are highly suspicious, I suspect that they are too small to attempt biopsy which have confirmed with Dr. Carter. Will obtain PET scanning and then continue serial CT evaluation. Will consider thoracic surgery referral for biopsy as suspicion increases. Additional changes on CT January 04, 2023 with some resolution but some with growth. February 2023 repeat PET/CT shows progression of multiple pulmonary nodules with one nodule in the left upper lobe measuring 1.7 x 0.9 cm subpleural previously 0.8 x 0.7 cm FDG avidity with max SUV of 2.8. He also has a 1.0x 0.8 cm posterior right lower lobe nodule that was previously 0.8 x 0.7 cm max SUV of 1.8. Since SUV measurements were stillfairly low, I obtained a repeat PET/CT 2 months later in April 2023 that showed improvement of all pulmonary nodules. However, there was some uptake in the distal stomach/proximal duodenum which will need further evaluation. PLAN: Trial of magnesium citrate to clear out. Triage to call Monday. If no success, will order CT A/P. Labs and CT Chest in 3 months. RTC 1 week after labs and scan. HPI: Case History: 08/04/2023 - PET CT: No evidence of focal uptake to suggest FDG avid neoplastic process in the head/neck, abdomen/pelvis, or extremities/skeleton. Chest: Slight improvement in left upper lobe lung nodule. Other nodules below PET resolution stable. Follow-up with CT advised. 05/30/2023 - EGD ([facility] [place] Duodenum: Mild bulbar duodenitis, otherwise normal. Stomach: Mild hemorrhagic gastritis, most pronounced in the antrum and distal body. Biopsies obtained, bottle 1-rule out H. Pylori. Otherwise unremarkable. Esophagus: Diaphragmatic hiatus was 43 cm from incisors and GE junction was at 41 cm from incisors. Squamocolumnar junction was at 41 cm from incisors. Mucosa appeared normal. 04/30/2023 - PET CT: Head and Neck: No evidence of FDG avid neoplastic process. Chest: Improvement of the bilateral pulmonary nodules, as described. Findings may be secondary to improving inflammatory/infectious process versus therapy response. No new/worsening lesions. Abdomen and pelvis: Persistent uptake at the distal stomach/proximal duodenum may be secondary to an underlying inflammatory process, although neoplastic etiology needs to be excluded. Musculoskeletal: No neoplastic hypermetabolic lesions. 02/21/2023 - PET/CT: Interval increase in size and number of innumerable bilateral pulmonary nodules some of which demonstrate borderline FDG activity. Findings are most compatible with metastatic disease. 09/30/2022 - PET CT: Multiple foci of uptake most active in MOOKIE. Concerning for metastatic disease. 07/14/2022 - CT Chest: Development of innumerable pulmonary nodules - infectous / inflammatory vs neoplastic. All below PET range (7mm and less). 12/10/2021 - CT Liver/Pelvis: Unchanged 1.1 cm hypodense subcapsular hepatic mass since 10/22/2021,which remains suspicious for a metastasis. Decrease in size of previously noted mildly enlarged lymph nodes. No progressive lymphadenopathy. Circumferential urinary bladder wall thickening, likely sec ondary to chronic outlet obstruction. 10/22/2021 - CT CAP: Chest: Newly apparent patchy bilateral groundglass opacities, left greater than right, likely infectious/inflammatory in nature. Bilateral less than 4 mm pulmonary nodules, stable. Several subcentimeter mediastinal lymph nodes, mild soft tissue prominence at the santy bilaterally, stable. Borderline aneurysmal enlargement of the ascending and mild dilation of the descending thoracic aorta, stable. Abd/Pelvis:Interval development of an approximate 1.1 cm, indeterminate hepatic lesion. The possibility of newly apparent metastases cannot be excluded. Newly apparent retroperitoneal and central mesenteric lymphadenopathy. 09/2021 - Got Covid 06/07/2021 - CT CAP: Chest: Interval resolution of previously noted right lower lobe nodular opacity. Other residual subcentimeter nodular opacities measuring less than 5 mm, stable since 01/27/2021.Subtle reticulonodular opacities in the left upper lung field most likely related to respiratory bronchiolitis or other infectious/inflammatory etiologies, stable. Increased mild mucous plugging. A/P: No evidence of intra-abdominal/intrapelvic metastases. No interval change since 01/27/2021. Fat-containing right inguinal hernia. 04/22/2021 - Colonoscopy ([facility] [place] Large blanketing polyp ascending, removed with a hot snare in perianal fashion and retrieved. Large broad based polyp transverse, removed with endoscopic mucosal resection using hot snare, retrieved, and tattooed. Two medium-sized sessile polyps, sigmoid, removed with hot snare and retrieved. Moderate sigmoid and ascending diverticulosis 02/01/2021 - CT Chest: Postsurgical changes in keeping with right upper lobe lobectomy. Bilateral nodular opacities measuring up to 5 mm in size, nonspecific. Recommend continued follow-up. Previously visualized left pleural effusion has resolved. No evidence of bulky intrathoracic lymphadenopathy. Ectasia of ascending thoracic aorta measuring up to 4.8 cm in diameter. 09/24/2020 - Right upper lobectomy: Invasive moderately to poorly differentiated adenocarcinoma lung primary. Lymphovascular invasion present. Tumor is 1 mm from inked parietal pleura. Resection margins uninvolved by invasive carcinoma. 4 lymph nodes negative for metastatic carcinoma. Pathologic staging pT2a, pN0. Lymph nodes consisted of level 8 lymph nodes excisional. Level 10, level 7 and level 11. There was lipidic spread noted. 07/21/2020 - CT-guided core biopsy right lung: High-grade malignancy with necrosis see comment. Malignant cells stain positive for lane cytokeratin focal and p63 weak focal. Negative for neuroendocrine markers. Negative for melanoma markers. Differential diagnosis include sarcomatoid carcinoma and high-grade sarcoma among others. Additional stains pending. Preceding Nichole needle biopsy was negative for malignancy. 06/2020 - Aortic valve repair with CABG 06/03/2020 - PET CT: Uptake in a 3 cm right apical mass and no other disease. Updated Visit, August 11, 2023: Alessio returns today for follow up, says he is hanging in there. He has gained weight, but reports that he has not been eating nearly as much. Had his EGD done on 05/30/2023. Results: gastritis. Positive stool test showing H. Pylori. PET last week looks good. It was recommended he follow up with [facility] for next imaging due to the small size of his lung nodules. Reports he is waking up daily with a very dry throat, not sure if he is sleeping with his mouth open. I noted that his shirt is very tight across his abdomen, which goes with his rapid weight gain. He has been constipated for several days. Denies abdominal pain, has not been able to use the bathroom very well - last time he went was 3- 4 days ago and it did not feel like he cleared everything out. This is a fairly new problem. Colonoscopy from 2 years ago showed polyps. If he does not feel like he has completely evacuated his bowels by Monday after taking magnesium citrate I would like him to have a scan. We reviewed his labs, everything looks normal. He is not anemic. Updated Visit, May 05, 2023: Alessio returns with his Sister Maria Teresa today and seems to be doing well. He is in good spirits. PET/CT was reviewed Shows improvement of bilateral pulmonary nodules. However the abdomen and pelvis demonstrate persistent uptake at the distal stomach/proximal duodenum and likely needs upper endoscopy. Updated Visit, March 03, 2023: Alessio returns with his son during and his younger Sister Maria Teresa today. Overall he feels generally asymptomatic. 02/21/2023 PET/CT reviewed with images reviewed as well. This demonstrates interval increase in size and number of innumerable bilateral pulmonary nodules some of which demonstrate borderline FDG activity. His findings are most compatible with metastatic disease. Updated Visit, January 04, 2023: Good spirits - returns with younger sister Maria Tereas. CT images reviewed and will call regarding final read. 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 Recently, he was found to have a positive TB test and will need to undergo bronchoscopy with lavageand culture. I have encouraged him to get this set up with Dr. Lentz and have spoken with her as well. Updated Visit, October 07, 2022: Reviewed results of scans: PET with multiple foci of uptake most active in MOOKIE. Concerning for metastatic disease. Received discussion with Dr. Carter - lesions are too small to biopsy - may need surgical biopsy. Will likely need CT's in 8 weeks in serial fashion in order not to miss any evidence of growth. Updated Visit, September 15, 2022: Reviewed Repeat CT results with him - images and personal interpretation prior to official read indicate enlarging nodules. Discussion with Dr. Carter to consider biopsy vs. Continued observation yielded a decision to continue observation. I will get a baseline PET/CT. He is here with his son Bari. Updated Visit, July 21, 2022: Sister Maria Teresa with him today 07/14/2022 CT Chest - development of innumerable pulmonary nodules - infectous / inflammatory vs neoplastic. All below PET range (7mm and less). He is at his baseline state of health. Labs unremarkable. Updated Visit, March 31, 2022: Bari son is with him today. He still smokes. Reviewed images with him personally. Scan results pending but preliminarily appear without concerning lesion and with left apical emphysema Updated Visit, March 02, 2022: Telephone only for 5 mins Called Alessio as requested. Reviewed findings of liver resection in 01/2022. Still complains of dyspnea but is still smoking. Will repeat CT chest in 3 - 4 weeks and have him return to review. He is in agreement. His sister Maria Teresa was on the phone as well. Updated Visit, December 17, 2021: Telephone only for 8 minutes Called as requested to discuss findings on liver CT showing subcapsular liver lesion that remains suspicious. disussed biopsy with him and he is agreeable. Updated Visit, October 29, 2021: Got COVID in September and was fairly sick - still has night sweats. Recovering but still has poor appetitie. His scans demonstrate a small liver lesion and multple mesenteric lymphnodes. I will followthese given the recent COVID infection. His sister Purvi is with him today. Updated Visit, June 25, 2021: Alessio Burns returns for follow up. There has been no significant medical changes since his lastvisit. He has a chronic cough and shortness of breath. He continues to smoke. He denies any unusualpain. He had a few episodes of sharp abdominal pain for the last 2 weeks. He states that the pain is on his right side just below his liver. The patient states that he does not consume alcohol. He has occasional constipation. He also states that sometimes urinating is difficult. Overall, he is doing fairly well. He states that his son is concerned about him and wants him to take the best care of himself that he can. 04/22/2021 [place]oscopy [place] [place] [facility] to [facility] 06/04/2021 Updated Visit, February 05, 2021: Doing well overall but still smokes. We reviewed his CT scans from 02/01/2021 which shows no evidence of recurrent diseaes but will need follow up for bilateral small pulmonary nodules. Initial Visit, January 13, 2021: Alessio Burns presents today for Hematology and Oncology evaluation accompanied by his Sister Maria Teresa. He is a 70 year old male who was found to have a right apical mass consistent with lung cancer during the work-up of an acute myocardial infarction with CHF and fatigue. His current ejection fraction is 40%. He is status post aortic valve repair with CABG in late 2019 (June). During that admission he was found to have a lung mass described above and bronchoscopic biopsy demonstrated sarcomatoid pathology. He was additionally found to have a PET scan demonstrating uptake in the ascending colon and has had a positive Cologuard test. He was additionally found to have a positive Cologuard and will need direct visualization with colonoscopy. PATHOLOGY/MOLECULAR DATA 01/10/2022 Partial liver resection: [id number] Order: [id number] Collected 01/10/2022 11:56 AM Status: Final result Visible to patient: No (inaccessible in MyChart) Dx: Liver mass 1 Result Note Component Final diagnosis A. Liver, partial resection: - Ciliated foregut cyst. - Parenchymal margin is not involved. - Hepatic parenchyma with mild portal inflammation. AEB/tg 01/13/2022 Diagnosis comment We note the clinical history of a cystic liver mass. The lesion consists of a cyst lined by ciliated pseudostratified columnar epithelium with goblet cells consistent with a foregut cyst. Dysplasia is not identified. The adjacent liver parenchyma shows overall preservation of the hepatic architecture. Mild portal inflammation without interface hepatitis is identified. The interlobular bile ducts are intact. Macrovesicular steatosis is inconspicuous. No significant lobular inflammation is noted. Iron stain is neg ative for iron deposits. A trichrome stain shows no significant evidence of fibrosis. Gross description A. Liver partial resection. Received in formalin labeled as liver mass is a wedge of liver parenchyma measuring 3.0 x 2.3 x 1.0 cm and weighing 2 g. The capsule shows cautery artifact and is inked black. The resection margin is inked orange. Sectioning reveals a smooth empty cyst measuring 1.1 x 0.8 x 0.5 cm. The the cyst extends within 1 mm of the capsule and abuts the parenchymal resection margin. The specimen is entirely submitted in formalin as follows: A1-A2 cyst in relationship to resection margin, A3-A4 remainderof specimen. Gross examination performed at [facility], [address] [facility] [address] CLIA# [id number] [facility] January 12, 2022 9:23 AM REVIEW OF SYSTEMS Per HPI and otherwise negative by full review of organ systems. ECOG PERFORMANCE STATUS: 1 PHYSICAL EXAMINATION: Vitals: BP 148/60 Pulse 59 Temp (Src) 97.4 (Temporal) Resp 16 Wt 193 lb 12.8 oz (87.9kg) SpO2 94% Body surface area is 2.02 meters squared. Exam limited to gross visualization where appropriate. Gen.: This is an age-appropriate patient in no acute distress. His shirt is visibly much tighter than normal Head: Appears atraumatic with no visible lesions. Eyes: Pupils equally round and reactive to light, extraocular muscles are intact. Neck: Supple. Respiratory: Appears to be respiring comfortably. Abdomen: Tightness Neurologic: Nonfocal to gross visualization. Alert and oriented 3. Psychiatric: No evidence of inappropriate anxiety or depression. Skin: Visible areas of skin without rash, lesions, wounds or petechiae. Extremities: No pedal edema in the BLE ALLERGIES: ALLERGIES No Known Allergies MEDICATIONS: omeprazole (PRILOSEC) 40 mg capsule TAKE 1 CAPSULE BY MOUTH TWICE DAILY (30 MINUTES BEFORE morning meal & IN THE EVENING) spironolactone (ALDACTONE) 25 mg tablet zolpidem (AMBIEN) 10 mg Take 10 mg by mouth once daily. TRELEGY ELLIPTA 200-62.5-25 mcg inhalation powder INHALE 1 PUFF BY MOUTH DAILY oxyCODONE-acetaminophen (PERCOCET) 5-325 mg tablet TAKE 1 TABLET BY MOUTH EVERY 12 HOURS NEEDED FOR PAIN potassium chloride ER (K-DUR, KLOR-CON) 20 mEq tablet Take 10 mEq by mouth once daily. levoFLOXacin (LEVAQUIN) 750 mg tablet Take 750 mg by mouth once daily. amLODIPine (NORVASC) 10 mg tablet Take 10 mg by mouth once daily. Nebulizer and Compressor For Neb 1 Each three times daily as needed. sildenafil (VIAGRA) 25 mg tablet sildenafil 25 mg tablet TAKE 1 TABLET BY MOUTH 30 MINUTES BEFORE sexual activity busPIRone (BUSPAR) 15 mg tablet Take 15 mg by mouth three times daily. budesonide-formoterol (SYMBICORT) 160-4.5 mcg/actuation inhaler Symbicort 160 mcg-4.5 mcg/actuationHFA aerosol inhaler INHALE 2 PUFFS BY MOUTH TWICE DAILY albuterol HFA (PROVENTIL HFA, VENTOLIN HFA) 90 mcg/actuation inhaler albuterol sulfate HFA 90 mcg/actuation aerosol inhaler INHALE 2 PUFFS BY MOUTH EVERY 4 TO 6 HOURS NEEDED for shortness of breath and FOR WHEEZING aspirin, enteric coated (ASPIRIN, ENTERIC COATED) 81 mg EC tablet q 24 HR. atorvastatin (LIPITOR) 40 mg tablet atorvastatin 40 mg tablet TAKE 1 TABLET BY MOUTH AT BEDTIME furosemide (LASIX) 40 mg tablet furosemide 40 mg tablet TAKE 1 TABLET BY MOUTH DAILY metoprolol succinate ER (TOPROL XL) 100 mg Take 100 mg by mouth once daily. nitroglycerin sublingual (NITROQUICK) 0.4 mg SL tablet nitroglycerin 0.4 mg sublingual tablet DISSOLVE 1 TABLET UNDER THE TONGUE NEEDED FOR CHEST PAIN- MAY REPEAT EVERY 5 MINUTES IF NEEDED (MAX 3 DOSES.- IF NO RELIEF CALL 911) sacubitril-valsartan (ENTRESTO) 97-103 mg tablet Entresto 97 mg-103 mg tablet TAKE 1 TABLET BY MOUTH TWICE DAILY amitriptyline (ELAVIL) 25 mg tablet Take 25 mg by mouth daily at bedtime. metroNIDAZOLE (FLAGYL) 250 mg tablet Take 250 mg by mouth four times daily. iv contrast (will be provided with radiology test) CT Chest W -Inject, intravenously, once for 1 dose.No IV access, insert saline lock prior to the beginning of sedation, infusion, injection of imaging exam. Discontinue saline lock post exam. If Pt. has a central line or IVAD, may access for administration according to line specific nursing protocol. Once exam is complete flush line and de-accessaccording to line specific nursing protocol in the CT contrast administration guidelines link. magnesium citrate solution Take 296 mL by mouth one time only for 1 dose. clopidogrel (PLAVIX) 75 mg tablet Take 1 tablet by mouth once daily for 15 days. penicillin V potassium (V-CILLIN, VEETIDS) 500 mg tablet Take 500 mg by mouth four times daily. predniSONE (DELTASONE) 20 mg tablet Take 40 mg by mouth daily with food. Albuterol Sulfate 1.25 mg/3 mL nebulizer solution Use 1 Ampule via nebulizer every 6 hours as needed for wheezing/shortness of breath. LABORATORY VALUES: WBC (k/uL) Date Value 08/04/2023 9.37 RBC (m/uL) Date Value 08/04/2023 4.63 Hemoglobin (g/dL) Date Value 08/04/2023 13.9 Hematocrit (%) Date Value 08/04/2023 42.9 MCV (fL) Date Value 08/04/2023 92.7 MCH (pg) Date Value 08/04/2023 30.0 MCHC (g/dL) Date Value 08/04/2023 32.4 RDW-CV (%) Date Value 08/04/2023 13.2 Platelet Count (k/uL) Date Value 08/04/2023 282 MPV (fL) Date Value 08/04/2023 8.8 (L) Glucose (mg/dL) Date Value 08/04/2023 97 BUN (mg/dL) Date Value 08/04/2023 18 Creatinine (mg/dL) Date Value 08/04/2023 1.06 Sodium (mmol/L) Date Value 08/04/2023 138 Potassium (mmol/L) Date Value 08/04/2023 3.9 Chloride (mmol/L) Date Value 08/04/2023 103 CO2 (mmol/L) Date Value 08/04/2023 26 Protein, Total (g/dL) Date Value 08/04/2023 7.8 Albumin (g/dL) Date Value 08/04/2023 4.7 Calcium, Total (mg/dL) Date Value 08/04/2023 9.3 Alkaline Phosphatase (U/L) Date Value 08/04/2023 93 Bilirubin, Total (mg/dL) Date Value 08/04/2023 0.3 AST (U/L) Date Value 08/04/2023 18 ALT (U/L) Date Value 08/04/2023 14 DIAGNOSIS: (C34.90) Malignant neoplasm of unspecified part of unspecified bronchus or lung (HCC) (primary encounter diagnosis) Plan: CT CHEST W IVCON, CBC + DIFF, COMP METABOLIC PANEL PAST MEDICAL HISTORY Diagnosis Date CAD (coronary artery disease) CHD (coronary heart disease) Chest pain, cardiac COPD (chronic obstructive pulmonary disease) (HCC) Depression Diabetes (HCC) Heart problem HTN (hypertension) Hyperlipidemia Insomnia Lung mass 01/[address] Etienne Lung trouble Tobacco user PAST SURGICAL HISTORY Procedure Laterality Date CABG (1) VEIN GRAFT & ARTERIAL GRAFT COLONOSCOPY SCREENING LOBECTOMY, SEGMENT PAST SURGICAL HISTORY OF plate in head Social History Tobacco Use Smoking status: Every Day Packs/day: 1.00 Years: 48.00 Additional pack years: 0.00 Total pack years: 48.00 Types: Cigarettes Passive exposure: Current Smokeless tobacco: Never Vaping Use Vaping Use: Never used Substance Use Topics Alcohol use: Not Currently Drug use: Never FAMILY HISTORY Problem Relation Age of Onset Diabetes Mother Hypertension Mother Heart disease Mother Hypertension Father Cancer Father Heart disease Father Hypertension Sister Heart disease Sister Diabetes Sister Cancer Sister I spent a total of 30 minutes on the date of the service which included preparing to see the patient, [id number] patient care, completing clinical documentation, performing a medically appropriate examination, counseling and educating the patient/family/caregiver, ordering medications, tests, or p rocedures, communicating with other HCPs (not separately reported), independently interpreting results (not separately reported), and communicating results to the patient/family/caregiver. Jaya Bai MD, CPE Services Provided at: [facility], [place], [place] & [place], [place] Scribe Attestation: This note was scribed by Ling Muhammad on August 11, 2023 under the direction and supervision of Dr. Jaya Bai. I attest that all of the information documented is correct to the best of my knowledge. Provider Attestation: I, Jaya Bai MD, attest that all information documented by the above scribe is correct, and was supervised by me and under my direction. CC: Shaikh Lowell [address] [facility] [address] Maliha Lentz DO David Hykes documented [facility] NoteHNO ID: [id number] Author: Charla Godfrey RT(R) Service: ? Author Type: Technologist Type: Progress Notes Filed: 08/04/2023 1:43 PM Note Text: RADIOLOGY SERVICE PROGRESS NOTE SERVICE DATE: 08/04/2023 SERVICE TIME: 1:43 PM PATIENT IDENTITY VERIFICATION COMPLETED USING TWO (2) STANDARD IDENTIFIERS: Name and Date of confirmed by patient verbally POST EXAM PIV STATUS: Discontinued PROCEDURE TYPE: NM INJECT: PET/CT BODY SCAN. 10.8 mCi F18 FDG. No other medications given.. ADMINISTRATION TIME: 1326 PATIENT DISCHARGED TO: Ambulatory patient, left AR department area. A Diagnostic radioactive procedure has taken place, with no further precautions necessary other than routine body substance precautions. More information regarding radiation safety can be found using this link: [email or web address] SIGNATURE: RT Darius(R) PATIENT NAME: Alessio Burns DATE: August 04, 2023 TIME: 1:43 PM PAGER/CONTACT #:[facility]12-01-2023 NoteHNO ID: [id number] Author: Taylor Spann RN Service: ? Author Type: Registered Nurse Type: Progress Notes Filed: 08/04/2023 1:49 PM Note Text: Radiology Service Progress Note DATE OF SERVICE: August 04, 2023 TIME: 1:49 PM PATIENT IDENTITY VERIFICATION COMPLETED USING TWO (2) STANDARD IDENTIFIERS: Name and Date of confirmed by patient verbally. FALL SCREENING: Has the patient had 2 falls in the last year or 1 fall with injury or currently using an Ambulatory Assistive Device (Walker, Cane, Wheelchair, Crutches, etc.)? No PATIENT GENDER DATA: Male EXAM: CT -CONTRAST INDUCED NEPHROPATHY RISK FACTORS: Not applicable CREATININE: Creatinine Date Value Ref Range Status 04/28/2023 1.20 0.73 - 1.22 mg/dL Final 01/04/2023 1.01 0.73 - 1.22 mg/dL Final 10/07/2022 1.12 0.73 - 1.22 mg/dL Final Estimated Glomerular Filtration Rate Date Value Ref Range Status 04/28/2023 64 >=60 mL/min/1.73m? Final Comment: Estimated Glomerular Filtration Rate (eGFR) is calculated using the 2020 CKD-EPI creatinine equation. This equation utilizes serum creatinine, sex, and age as parameters. The creatinine assay has traceable calibration to isotope dilution-mass spectrometry. Refer to KDIGO guidelines for clinical interpretation. In patients with unstable renal function, e.g. those with acute kidney injury, the eGFR may not accurately reflect actual GFR. eGFR- Date Value Ref Range Status 10/22/2021 >60 Final P.O.C.T. RESULTS: N/A August 04, 2023 TREATMENT: N/A IV SITE: Ambulatory: A peripheral IV was started in the Left antecubital site with a Angio cath: 22 gauge. IV SITE APPEARANCE: Clean,Dry and Intact SIGNATURE: Taylor Spann RN PATIENT NAME: Alessio Burns DATE: August 04, 2023 TIME: 1:49 [facility] Miscellaneous Notes* Telephone Encounter - Karen Ugarte - 05/22/2023 1:25 PM EDT Called [facility] spoke with Gita. Patient is scheduled for EGD with Dr. Spring on 05/30. Karen Hernandez * Telephone Encounter - Karen Ugarte - 05/18/2023 10:44 AM EDT Called [facility] spoke with Jaylene. They have received this referral and their laboratory operations coordinator will be calling patient to get scheduled. Karen Hernandez * Telephone Encounter - Gale Oden - 05/16/2023 2:19 PM EDT Records faxed to [facility]. * Telephone Encounter - Karen Ugarte - 05/10/2023 8:30 AM EDT Katty: Information ready for you. Karen Hernandez * Telephone Encounter - Ania Crump - 05/05/2023 3:11 PM EDT Refer to GI for upper endoscopy for positive PET/CT Katty/Agustín: Can you please refer patient and follow up? He states he has seen Dr. Queen in the past but would prefer to stay locally still. Ania Crump documented in this [facility]-01-[facility]23 NoteHNO ID: [id number] Author: Jaya Bai MD Service: ? Author Type: Physician Type: Progress Notes Filed: 05/16/2023 1:39 PM Note Text: NAME: Alessio Burns [facility] NO.: [id number] DATE OF SERVICE: May 05, 2023 (Zac) Some elements in this clinic note that are critical to medical decision making have been carefully reviewed and included from a prior clinic note dated: March 03, 2023 (Zac) Referring Provider: Dr. 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 He actually presented with an acute myocardial infarction and had to undergo CABG and aortic valve repair emergently in June 08, 2020. Subsequent work-up demonstrated malignancy with no evidence of metastatic disease and he underwent resection in July 2020 after he had recovered from his cardiac surgery. He was not a candidate for adjuvant therapy given his almost 6-month gap between resection and presentation to hi. He remains at high risk because of tobacco use. Restaging is non-specific for recurrence of lung cancer but short interval CT's found a new liver lesion which then persisted through December 2021. He saw Dr. Mota for resection 01/10/2022 - benign findings of ciliated foregut cyst. Colonoscopy. Done for + Cologuard was negative. Dyspnea wheezing - uses a nebulizer but is still smoking. New bilateral lung nodules - could be infectious / inflammatory however have continued to grow on serial CT scans. While these are highly suspicious, I suspect that they are too small to attempt biopsy which have confirmed with Dr. Carter. Will obtain PET scanning and then continue serial CT evaluation. Will consider thoracic surgery referral for biopsy as suspicion increases. Additional changes on CT January 04, 2023 with some resolution but some with growth. February 2023 repeat PET/CT shows progression of multiple pulmonary nodules with one nodule in the left upper lobe measuring 1.7 x 0.9 cm subpleural previously 0.8 x 0.7 cm FDG avidity with max SUV of 2.8. He also has a 1.0 x 0.8 cm posterior right lower lobe nodule that was previously 0.8 x 0.7 cm max SUV of 1.8. Since SUV measurements were stillfairly low, I obtained a repeat PET/CT 2 months later in April 2023 that showed improvement of all pulmonary nodules. However, there was some uptake in the distal stomach/proximal duodenum which will need further evaluation. PLAN: Refer to GI for upper endoscopy for positive PET/CT Repeat PET in 3 months labs same day. HPI: Updated Visit, May 05, 2023: Alessio returns with his Sister Maria Teresa today and seems to be doing well. He is in good spirits. PET/CT was reviewed Shows improvement of bilateral pulmonary nodules. However the abdomen and pelvis demonstrate persistent uptake at the distal stomach/proximal duodenum and likely needs upper endoscopy. Updated Visit, March 03, 2023: Alessio returns with his son during and his younger Sister Maria Teresa today. Overall he feels generally asymptomatic. 02/21/2023 PET/CT reviewed with images reviewed as well. This demonstrates interval increase in size and number of innumerable bilateral pulmonary nodules some of which demonstrate borderline FDG activity. His findings are most compatible with metastatic disease. Updated Visit, January 04, 2023: Good spirits - returns with younger sister Maria Teresa. CT images reviewed and will call regarding final read. 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 Recently, he was found to have a positive TB test and will need to undergo bronchoscopy with lavage and culture. I have encouraged him to get this set up with Dr. Lentz and have spoken with her as well. Updated Visit, October 07, 2022: Reviewed results of scans: PET with multiple foci of uptake most active in MOOKIE. Concerning for metastatic disease. Received discussion with Dr. Carter - lesions are too small to biopsy - may need surgical biopsy. Will likely need CT's in 8 weeks in serial fashion in order not to miss any evidence of growth. Updated Visit, September 15, 2022: Reviewed Repeat CT results with him - images and personal interpretation prior to official read indicate enlarging nodules. Discussion with Dr. Carter to consider biopsy vs. Continued observation yielded a decision to continue observation. I will get a baseline PET/CT. He is here wi (more content not included)...[facility]09-01-[facility] Instructions* Patient Instructions* Jaya Bai MD - 05/05/2023 2:56 PM EDT Refer to GI for upper endoscopy for positive PET/CT Repeat PET in 3 months labs same day. documented in this encounterL[facility]-01-[facility]23 History of Present illness Narrative* Jaya Bai MD - 05/05/2023 2:36 PM EDT Images from the original note were not included. NAME: Alessio Burns [facility] NO.: [id number] DATE OF SERVICE: May 05, 2023 (Zac) Some elements in this clinic note that are critical to medical decision making have been carefully reviewed and included from a prior clinic note dated: March 03, 2023 (Zac) Referring Provider: Dr. 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 He actually presented with an acute myocardial infarction and had to undergo CABG and aortic valve repair emergently in June 08, 2020. Subsequent work-up demonstrated malignancy with no evidence of metastatic disease and he underwent resection in July 2020 after he had recovered from his cardiac surgery. He was not a candidate for adjuvant therapy given his almost 6-month gap between resection and presentation to me. He remains at high risk because of tobacco use. Restaging is non-specific for recurrence of lung cancer but short interval CT's found a new liver lesion which then persisted through December 2021. He saw Dr. Mota for resection 01/10/2022 - benign findings of ciliated foregut cyst. Colonoscopy. Done for + Cologuard was negative. Dyspnea wheezing - uses a nebulizer but is still smoking. New bilateral lung nodules - could be infectious / inflammatory however have continued to grow on serial CT scans. While these are highly suspicious, I suspect that they are too small to attempt biopsy which have confirmed with Dr. Carter. Will obtain PET scanning and then continue serial CT evaluation. Will consider thoracic surgery referral for biopsy as suspicion increases. Additional changes on CT January 04, 2023 with some resolution but some with growth. February 2023 repeat PET/CT shows progression of multiple pulmonary nodules with one nodule in the left upper lobe measuring 1.7 x 0.9 cm subpleural previously 0.8 x 0.7 cm FDG avidity with max SUV of 2.8. He also has a 1.0x 0.8 cm posterior right lower lobe nodule that was previously 0.8 x 0.7 cm max SUV of 1.8. Since SUV measurements were stillfairly low, I obtained a repeat PET/CT 2 months later in April 2023 that showed improvement of all pulmonary nodules. However, there was some uptake in the distal stomach/proximal duodenum which will need further evaluation. PLAN: Refer to GI for upper endoscopy for positive PET/CT Repeat PET in 3 months labs same day. HPI: Updated Visit, May 05, 2023: Alessio returns with his Sister Maria Teresa today and seems to be doing well. He is in good spirits. PET/CT was reviewed Shows improvement of bilateral pulmonary nodules. However the abdomen and pelvis demonstrate persistent uptake at the distal stomach/proximal duodenum and likely needs upper endoscopy. Updated Visit, March 03, 2023: Alessio returns with his son during and his younger Sister Maria Teresa today. Overall he feels generally asymptomatic. 02/21/2023 PET/CT reviewed with images reviewed as well. This demonstrates interval increase in size and number of innumerable bilateral pulmonary nodules some of which demonstrate borderline FDG activity. His findings are most compatible with metastatic disease. Updated Visit, January 04, 2023: Good spirits - returns with younger sister Maria Teresa. CT images reviewed and will call regarding final read. 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 Recently, he was found to have a positive TB test and will need to undergo bronchoscopy with lavageand culture. I have encouraged him to get this set up with Dr. Lentz and have spoken with her as well. Updated Visit, October 07, 2022: Reviewed results of scans: PET with multiple foci of uptake most active in MOOKIE. Concerning for metastatic disease. Received discussion with Dr. Carter - lesions are too small to biopsy - may need surgical biopsy. Will likely need CT's in 8 weeks in serial fashion in order not to miss any evidence of growth. Updated Visit, September 15, 2022: Reviewed Repeat CT results with him - images and personal interpretation prior to official read indicate enlarging nodules. Discussion with Dr. Carter to consider biopsy vs. Continued observation yielded a decision to continue observation. I will get a baseline PET/CT. He is here with his son Bari. Updated Visit, July 21, 2022: Sister Maria Teresa with him today 07/14/2022 CT Chest - development of innumerable pulmonary nodules - infectous / inflammatory vs neoplastic. All below PET range (7mm and less). He is at his baseline state of health. Labs unremarkable. Updated Visit, March 31, 2022: Bari son is with him today. He still smokes. Reviewed images with him personally. Scan results pending but preliminarily appear without concerning lesion and with left apical emphysema Updated Visit, March 02, 2022: Telephone only for 5 mins Called Alessio as requested. Reviewed findings of liver resection in 01/2022. Still complains of dyspnea but is still smoking. Will repeat CT chest in 3 - 4 weeks and have him return to review. He is in agreement. His sister Maria Teresa was on the phone as well. Updated Visit, December 17, 2021: Telephone only for 8 minutes Called as requested to discuss findings on liver CT showing subcapsular liver lesion that remains suspicious. disussed biopsy with him and he is agreeable. Updated Visit, October 29, 2021: Got COVID in September and was fairly sick - still has night sweats. Recovering but still has poor appetitie. His scans demonstrate a small liver lesion and multple mesenteric lymphnodes. I will followthese given the recent COVID infection. His sister Purvi is with him today. Updated Visit, June 25, 2021: Alessio Burns returns for follow up. There has been no significant medical changes since his lastvisit. He has a chronic cough and shortness of breath. He continues to smoke. He denies any unusualpain. He had a few episodes of sharp abdominal pain for the last 2 weeks. He states that the pain is on his right side just below his liver. The patient states that he does not consume alcohol. He has occasional constipation. He also states that sometimes urinating is difficult. Overall, he is doing fairly well. He states that his son is concerned about him and wants him to take the best care of himself that he can. 04/22/2021 [place] [place] [facility] 06/04/2021 Updated Visit, February 05, 2021: Doing well overall but still smokes. We reviewed his CT scans from 02/01/2021 which shows no evidence of recurrent diseaes but will need follow up for bilateral small pulmonary nodules. Initial Visit, January 13, 2021: Alessio Burns presents today for Hematology and Oncology evaluation accompanied by his Sister Maria Teresa. He is a 70 year old male who was found to have a right apical mass consistent with lung cancer during the work-up of an acute myocardial infarction with CHF and fatigue. His current ejection fraction is 40%. He is status post aortic valve repair with CABG in late 2019 (June). During that admission he was found to have a lung mass described above and bronchoscopic biopsy demonstrated sarcomatoid pathology. He was additionally found to have a PET scan demonstrating uptake in the ascending colon and has had a positive Cologuard test. He was additionally found to have a positive Cologuard and will need direct visualization with colonoscopy. Case history: May 2020: 3 cm spiculated nodule right upper lobe status post biopsy 07/21/2020 with interventional radiology. Preceding Nichole needle biopsy was negative for malignancy. PET scan June 03, 2020 showed uptake in a 3 cm right apical mass and no other disease. 07/21/2020 CT-guided core biopsy right lung: High-grade malignancy with necrosis see comment. Malignant cells stain positive for lane cytokeratin focal and p63 weak focal. Negative for neuroendocrine markers. Negative for melanoma markers. Differential diagnosis include sarcomatoid carcinoma and high-grade sarcoma among others. Additional stains pending. The patient then underwent right upper lobectomy September 24, 2020. 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 Lymphovascular invasion present. Tumor is 1 mm from inked parietal pleura. Resection margins uninvolved by invasive carcinoma. 4 lymph nodes negative for metastatic carcinoma. Pathologic staging pT2a, pN0. Lymph nodes consisted of level 8 lymph nodes excisional. Level 10, level 7 and level 11. There was lipidic spread noted. RADIOGRAPHIC DATA: Reviewed December 17, 2021 12/10/2021 CT Liver/Pelvis: 1. Since 10/22/2021, unchanged 1.1 cm hypodense subcapsular hepatic mass, which remains suspicious for a metastasis. 2. Decrease in size of previously noted mildly enlarged lymph nodes. No progressive lymphadenopathy. 3. Circumferential urinary bladder wall thickening, likely secondary to chronic outlet obstruction. 10/22/2021 CT CAP Chest 1. Newly apparent patchy bilateral groundglass opacities, left greater than right, likely infectious/inflammatory in nature. Correlation with continued follow-up examinations is recommended. 2. Bilateral less than 4 mm pulmonary nodules, stable. 3. Several subcentimeter mediastinal lymph nodes, mild soft tissue prominence at the santy bilaterally, stable. 4. Borderline aneurysmal enlargement of the ascending and mild dilation of the descending thoracic aorta, stable. Abd/Pelvis: 1. Interval development of an approximate 1.1 cm, indeterminate hepatic lesion. The possibility of newly apparent metastases cannot be excluded. 2. Newly apparent retroperitoneal and central mesenteric lymphadenopathy, as above. Correlation with continued follow-up examinations is recommended. 06/07/2021 CT Chest: IMPRESSION: 1. Interval resolution of previously noted right lower lobe nodular opacity. 2. Other residual subcentimeter nodular opacities measuring less than 5 mm, stable since 01/27/2021. 3. Subtle reticulonodular opacities in the left upper lung field most likely related to respiratory bronchiolitis or other infectious/inflammatory etiologies, stable. 4. Increased mild mucous plugging. 06/07/2021 CT abdomen and pelvis IMPRESSION: 1. No evidence of intra-abdominal/intrapelvic metastases. No interval change since 01/27/2021. 2. Fat-containing right inguinal hernia. 02/01/2021 CT Chest: 1. Postsurgical changes in keeping with right upper lobe lobectomy. 2. Bilateral nodular opacities measuring up to 5 mm in size, nonspecific. Recommend continued follow-up. 3. Previously visualized left pleural effusion has resolved. 4. No evidence of bulky intrathoracic lymphadenopathy. 5. Ectasia of ascending thoracic aorta measuring up to 4.8 cm in diameter. PATHOLOGIC PROFILE: Reviewed March 02, 2022 1. 01/10/2022 Partial liver resection: [id number] Order: [id number] Collected 01/10/2022 11:56 AM Status: Final result Visible to patient: No (inaccessible in MyChart) Dx: Liver mass 1 Result Note Component FINAL DIAGNOSIS A. Liver, partial resection: - Ciliated foregut cyst. - Parenchymal margin is not involved. - Hepatic parenchyma with mild portal inflammation. AEB/tg 01/13/2022 Diagnosis Comment We note the clinical history of a cystic liver mass. The lesion consists of a cyst lined by ciliated pseudostratified columnar epithelium with goblet cells consistent with a foregut cyst. Dysplasia is not identified. The adjacent liver parenchyma shows overall preservation of the hepatic architecture. Mild portal inflammation without interface hepatitis is identified. The interlobular bile ducts are intact. Macrovesicular steatosis is inconspicuous. No significant lobular inflammation is noted. Iron stain is neg ative for iron deposits. A trichrome stain shows no significant evidence of fibrosis. Gross Description A. LIVER PARTIAL RESECTION. Received in formalin labeled as liver mass is a wedge of liver parenchyma measuring 3.0 x 2.3 x 1.0 cm and weighing 2 g. The capsule shows cautery artifact and is inked black. The resection margin is inked orange. Sectioning reveals a smooth empty cyst measuring 1.1 x 0.8 x 0.5 cm. The the cyst extends within 1 mm of the capsule and abuts the parenchymal resection margin. The specimen is entirely submitted in formalin as follows: A1-A2 cyst in relationship to resection margin, A3-A4 remainderof specimen. Gross examination performed at [facility], [address] [facility] [address] CLIA# [id number] [facility] January 12, 2022 9:23 AM REVIEW OF SYSTEMS Per HPI and otherwise negative by full review of organ systems. ECOG PERFORMANCE STATUS: 1 PHYSICAL EXAMINATION: Vitals: BP 119/54 Pulse 57 Temp (Src) 97.6 (Temporal) Resp 16 Ht 5' 5.984 (1.68m) Wt 182lb (82.6kg) SpO2 98% BMI 29.39 kg/(m^2). Body surface area is 1.96 meters squared. Exam limited to gross visualization where appropriate. Gen.: This is an age-appropriate patient in no acute distress. Head: Appears atraumatic with no visible lesions. Eyes: Pupils equally round and reactive to light, extraocular muscles are intact. Neck: Supple. Respiratory: Appears to be respiring comfortably. Neurologic: Nonfocal to gross visualization. Alert and oriented 3. Psychiatric: No evidence of inappropriate anxiety or depression. Skin: Visible areas of skin without rash, lesions, wounds or petechiae. ALLERGIES: ALLERGIES No Known Allergies MEDICATIONS: spironolactone (ALDACTONE) 25 mg tablet zolpidem (AMBIEN) 10 mg Take 10 mg by mouth once daily. TRELEGY ELLIPTA 200-62.5-25 mcg inhalation powder INHALE 1 PUFF BY MOUTH DAILY penicillin V potassium (V-CILLIN, VEETIDS) 500 mg tablet Take 500 mg by mouth four times daily. oxyCODONE-acetaminophen (PERCOCET) 5-325 mg tablet TAKE 1 TABLET BY MOUTH EVERY 12 HOURS NEEDED FOR PAIN potassium chloride ER (K-DUR, KLOR-CON) 20 mEq tablet Take 10 mEq by mouth once daily. levoFLOXacin (LEVAQUIN) 750 mg tablet Take 750 mg by mouth once daily. predniSONE (DELTASONE) 20 mg tablet Take 40 mg by mouth daily with food. amLODIPine (NORVASC) 10 mg tablet Take 10 mg by mouth once daily. Nebulizer and Compressor For Neb 1 Each three times daily as needed. sildenafil (VIAGRA) 25 mg tablet sildenafil 25 mg tablet TAKE 1 TABLET BY MOUTH 30 MINUTES BEFORE sexual activity busPIRone (BUSPAR) 15 mg tablet Take 15 mg by mouth three times daily. budesonide-formoterol (SYMBICORT) 160-4.5 mcg/actuation inhaler Symbicort 160 mcg-4.5 mcg/actuationHFA aerosol inhaler INHALE 2 PUFFS BY MOUTH TWICE DAILY albuterol HFA (PROVENTIL HFA, VENTOLIN HFA) 90 mcg/actuation inhaler albuterol sulfate HFA 90 mcg/actuation aerosol inhaler INHALE 2 PUFFS BY MOUTH EVERY 4 TO 6 HOURS NEEDED for shortness of breath and FOR WHEEZING aspirin, enteric coated (ASPIRIN, ENTERIC COATED) 81 mg EC tablet q 24 HR. atorvastatin (LIPITOR) 40 mg tablet atorvastatin 40 mg tablet TAKE 1 TABLET BY MOUTH AT BEDTIME furosemide (LASIX) 40 mg tablet furosemide 40 mg tablet TAKE 1 TABLET BY MOUTH DAILY metoprolol succinate ER (TOPROL XL) 100 mg Take 100 mg by mouth once daily. nitroglycerin sublingual (NITROQUICK) 0.4 mg SL tablet nitroglycerin 0.4 mg sublingual tablet DISSOLVE 1 TABLET UNDER THE TONGUE NEEDED FOR CHEST PAIN- MAY REPEAT EVERY 5 MINUTES IF NEEDED (MAX 3 DOSES.- IF NO RELIEF CALL 911) sacubitril-valsartan (ENTRESTO) 97-103 mg tablet Entresto 97 mg-103 mg tablet TAKE 1 TABLET BY MOUTH TWICE DAILY clopidogrel (PLAVIX) 75 mg tablet Take 1 tablet by mouth once daily for 15 days. Albuterol Sulfate 1.25 mg/3 mL nebulizer solution Use 1 Ampule via nebulizer every 6 hours as needed for wheezing/shortness of breath. LABORATORY VALUES: WBC (k/uL) Date Value 04/28/2023 9.14 RBC (m/uL) Date Value 04/28/2023 4.64 Hemoglobin (g/dL) Date Value 04/28/2023 13.8 Hematocrit (%) Date Value 04/28/2023 42.2 MCV (fL) Date Value 04/28/2023 90.9 MCH (pg) Date Value 04/28/2023 29.7 MCHC (g/dL) Date Value 04/28/2023 32.7 RDW-CV (%) Date Value 04/28/2023 13.8 Platelet Count (k/uL) Date Value 04/28/2023 226 MPV (fL) Date Value 04/28/2023 9.3 Glucose (mg/dL) Date Value 04/28/2023 100 (H) BUN (mg/dL) Date Value 04/28/2023 19 Creatinine (mg/dL) Date Value 04/28/2023 1.20 Sodium (mmol/L) Date Value 04/28/2023 137 Potassium (mmol/L) Date Value 04/28/2023 4.2 Chloride (mmol/L) Date Value 04/28/2023 103 CO2 (mmol/L) Date Value 04/28/2023 24 Protein, Total (g/dL) Date Value 04/28/2023 7.3 Albumin (g/dL) Date Value 04/28/2023 4.4 Calcium, Total (mg/dL) Date Value 04/28/2023 9.4 Alkaline Phosphatase (U/L) Date Value 04/28/2023 89 Bilirubin, Total (mg/dL) Date Value 04/28/2023 0.4 AST (U/L) Date Value 04/28/2023 15 ALT (U/L) Date Value 04/28/2023 8 (L) DIAGNOSIS: (R93.3) Abnormal finding on GI tract imaging (primary encounter diagnosis) Plan: CONSULT TO GASTROENTEROLOGY, CBC + DIFF, COMP METABOLIC PANEL, NM PET/CT SKULL-THIGH SUBSEQUENT (C34.90) Malignant neoplasm of unspecified part of unspecified bronchus or lung (HCC) Plan: CBC + DIFF, COMP METABOLIC PANEL, NM PET/CT SKULL-THIGH SUBSEQUENT PAST MEDICAL HISTORY Diagnosis Date CAD (coronary artery disease) CHD (coronary heart disease) Chest pain, cardiac COPD (chronic obstructive pulmonary disease) (HCC) Depression Diabetes (HCC) Heart problem HTN (hypertension) Hyperlipidemia Insomnia Lung mass 01/[address] Etienne Lung trouble Tobacco user PAST SURGICAL HISTORY Procedure Laterality Date CABG (1) VEIN GRAFT & ARTERIAL GRAFT COLONOSCOPY SCREENING LOBECTOMY, SEGMENT PAST SURGICAL HISTORY OF plate in head Social History Tobacco Use Smoking status: Every Day Packs/day: 1.00 Years: 48.00 Additional pack years: 0.00 Total pack years: 48.00 Types: Cigarettes Passive exposure: Current Smokeless tobacco: Never Vaping Use Vaping Use: Never used Substance Use Topics Alcohol use: Not Currently Drug use: Never FAMILY HISTORY Problem Relation Age of Onset Diabetes Mother Hypertension Mother Heart disease Mother Hypertension Father Cancer Father Heart disease Father Hypertension Sister Heart disease Sister Diabetes Sister Cancer Sister I spent a total of 30 minutes on the date of the service which included preparing to see the patient, [id number] patient care, completing clinical documentation, performing a medically appropriate examination, counseling and educating the patient/family/caregiver, ordering medications, tests, or p rocedures, communicating with other HCPs (not separately reported), independently interpreting results (not separately reported), and communicating results to the patient/family/caregiver. Jaya Bai MD, CPE Services Provided at: [facility], [place], [place] & [place], [place] CC: Shaikh Lowell [address] [facility] [address] Maliha Lentz DO David Hykes documented in [facility] NoteHNO ID: [id number] Author: Taylor Spann RN Service: ? Author Type: Registered Nurse Type: Progress Notes Filed: 04/28/2023 1:25 PM Note Text: Radiology Service Progress Note DATE OF SERVICE: April 28, 2023 TIME: 1:24 PM PATIENT IDENTITY VERIFICATION COMPLETED USING TWO (2) STANDARD IDENTIFIERS: Name and Date of confirmed by patient verbally. FALL SCREENING: Has the patient had 2 falls in the last year or 1 fall with injury or currently using an Ambulatory Assistive Device (Walker, Cane, Wheelchair, Crutches, etc.)? No PATIENT GENDER DATA: Male EXAM: CT -CONTRAST INDUCED NEPHROPATHY RISK FACTORS: Not applicable CREATININE: Creatinine Date Value Ref Range Status 01/04/2023 1.01 0.73 - 1.22 mg/dL Final 10/07/2022 1.12 0.73 - 1.22 mg/dL Final 09/15/2022 1.07 0.73 - 1.22 mg/dL Final Estimated Glomerular Filtration Rate Date Value Ref Range Status 01/04/2023 80 >=60 mL/min/1.73m? Final Comment: Estimated Glomerular Filtration Rate (eGFR) is calculated using the 2020 CKD-EPI creatinine equation. This equation utilizes serum creatinine, sex, and age as parameters. The creatinine assay has traceable calibration to isotope dilution-mass spectrometry. Refer to KDIGO guidelines for clinical interpretation. In patients with unstable renal function, e.g. those with acute kidney injury, the eGFR may not accurately reflect actual GFR. eGFR- Date Value Ref Range Status 10/22/2021 >60 Final P.O.C.T. RESULTS: N/A April 28, 2023 TREATMENT: N/A IV SITE: Ambulatory: A peripheral IV was started in the Right antecubital site with a Angio cath: 22 gauge. IV SITE APPEARANCE: Clean,Dry and Intact SIGNATURE: Taylor Spann RN PATIENT NAME: Alessio Burns DATE: April 28, 2023 TIME: 1:24 [facility]08-25-2023 NoteHNO ID: [id number] Author: Charla Godfrey RT(R) Service: ? Author Type: Technologist Type: Progress Notes Filed: 04/28/2023 2:07 PM Note Text: RADIOLOGY SERVICE PROGRESS NOTE SERVICE DATE: 04/28/2023 SERVICE TIME: 2:06 PM PATIENT IDENTITY VERIFICATION COMPLETED USING TWO (2) STANDARD IDENTIFIERS: Name and Date of confirmed by patient verbally POST EXAM PIV STATUS: Discontinued PROCEDURE TYPE: NM INJECT: PET/CT BODY SCAN. 10.8 mCi F18 FDG. No other medications given.. ADMINISTRATION TIME: 1317 PATIENT DISCHARGED TO: Ambulatory patient, left [place] department area. A Diagnostic radioactive procedure has taken place, with no further precautions necessary other than routine body substance precautions. More information regarding radiation safety can be found using this link: [email or web address] SIGNATURE: RT Darius(R) PATIENT NAME: Alessio Burns DATE: April 28, 2023 TIME: 2:06 PM PAGER/CONTACT #:[facility]08-02-2023 NoteUT Cardiology [facility] Subjective Alessio Burns is a 73 y.o. year old male patient being seen for 3 mo follow up AAA, CHF, CAD, and hypertension. Had labs and CXR a few weeks ago, and echo after last apt in January 2023. Says his chest pain sometimes lasts longer in duration. Patient Active Problem List Diagnosis Aneurysm of thoracic aorta (CMS/HCC) Aortic valve stenosis Carotid artery stenosis Chronic obstructive lung disease (CMS/HCC) Coronary arteriosclerosis Insomnia Left ventricular thrombus Lung mass Systolic heart failure (CMS/HCC) Chronic diastolic heart failure (CMS/HCC) History of aortic valve replacement with bioprosthetic valve History of coronary artery bypass graft Cancer of trachea, bronchus, and lung (CMS/HCC) Depression Dyspnea on exertion HLD (hyperlipidemia) HTN (hypertension) Lung nodules Panlobular emphysema (CMS/HCC) Smoker Family History Problem Relation Name Age of Onset Diabetes Mother Heart disease Mother Heart disease Father Coronary artery disease Sister Social History Tobacco Use Smoking status: Every Day Packs/day: 1.00 Types: Cigarettes Smokeless tobacco: Never Substance Use Topics Alcohol use: Yes Comment: occasional Drug use: Never SINCERE Jose Angel is seen in follow-up. He is a 73-year-old man who has history of coronary artery disease, aortic valve stenosis, systolic heart failure, and left-ventricular thrombus that was not seen on intraoperative AJAY. In June 2020 he underwent cardiac surgery including bypass surgery and aortic valve replacement with a bioprosthetic aortic valve, and exclusion of left atrial appendage with 40 mm atrial clip device. His ejection fraction improved to 40% post CABG. [Prior history per prior visits: Newly noted decreased EF 30-35%- recovered to 40% post CABG, Multivessel CAD s/p CABG per Dr Lisa, Thoracic aneurysm, LV thrombus, Severe AO stenosis s/p valve replacement, Lung mass and pleural effusion s/p thoracentesis. AJAY during surgery did not show LV thrombus therefore CT surgeon Dr. Lisa discontinued anticoagulation. Pulmonary and oncology were both consulted to evaluate for possible malignancy related to lung mass noted on CT. diagnostic thoracentesis was completed and no malignancy was noted in pathology.] At visit of 07/29/2020 I added Entresto and then increased the dose on the visit of 09/07/2020 and then again on the visit of 11/23/2020. He underwent lobectomy for lung cancer on 09/24/2020 at [facility] with Dr. Lisa. He was admitted to the [facility] in February 2021 with atypical chest pain. He ruled out for myocardial infarction by high-sensitivity troponin. He was admitted on 10/24/2021 to the [facility] with decompensated heart failure and COPD exacerbation. His NT proBNP was elevated and his potassium was low. He underwent diuresis. He was discharged on 10/25/2021. Potassium was added. After last visit of 02/28/2022 I checked an echocardiogram to follow-up on the size of his aortic aneurysm. The echocardiogram showed normal ventricular function and normal function of the aortic valve with the ascending aorta measuring 4.5 cm. Today he reports that he has been having episodes of sharp chest pain located on the left side of the chest lasting few seconds, this is chronic. Has chronic shortness of breath that seem to have worsened. He has no angina. No significant lower extremity swelling. No palpitations. He continues to smoke. Review of Systems Constitutional: Positive for malaise/fatigue. Cardiovascular: Positive for chest pain, dyspnea on exertion and palpitations. Musculoskeletal: Positive for muscle weakness. Neurological: Positive for weakness. All other systems reviewed and are negative. Objective Visit Vitals BP 119/63 (BP Location: Left arm, Patient Position: Sitting) Pulse 60 Ht 1.727 m (5' 8 ) Wt 83 kg (183 lb) SpO2 96% BMI 27.83 kg/m??? Smoking Status Every Day BSA 2 m??? Physical Exam Constitutional: Appearance: He is well-developed. He is not ill-appearing. HENT: Head: Normocephalic and atraumatic. Nose: Nose normal. Eyes: General: No scleral icterus. Pupils: Pupils are equal, round, and reactive to light. Neck: Thyroid: No thyromegaly. Vascular: No JVD. Cardiovascular: Rate and Rhythm: Normal rate and regular rhythm. Pulses: Radial pulses are 2+ on the right side and 2+ on the left side. Heart sounds: Murmur heard. Systolic (RUSB) murmur is present with a grade of 2/6. No friction rub. No gallop. Pulmonary: Effort: Pulmonary effort is normal. No respiratory distress. Breath sounds: Normal breath sounds. No wheezing or rales. Chest: Chest wall: No tenderness. Abdominal: General: Bowel sounds are normal. There is no distension. Palpations: Abdomen is soft. Tenderness: There is no abdominal tenderness. Musculoskeletal: General: No swelling. Cervical back: Neck whelan (more content not included)...[facility]06-30-2023 NoteHNO ID: [id number] Author: Jaya Bai MD Service: ? Author Type: Physician Type: Progress Notes Filed: 03/07/2023 12:24 PM Note Text: NAME: Alessio Burns CLINIC NO.: [id number] DATE OF SERVICE: March 03, 2023 (nory) Some elements in this clinic note that are critical to medical decision making have been carefully reviewed and included from a prior clinic note dated: January 04, 2023 (Zac) Referring Provider: Dr. 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 He actually presented with an acute myocardial infarction and had to undergo CABG and aortic valve repair emergently in June 08, 2020. Subsequent work-up demonstrated malignancy with no evidence of metastatic disease and he underwent resection in July 2020 after he had recovered from his cardiac surgery. He was not a candidate for adjuvant therapy given his almost 6-month gap between resection and presentation to me. He remains at high risk because of tobacco use. Restaging is non-specific for recurrence of lung cancer but short interval CT's found a new liver lesion which then persisted through December 2021. He saw Dr. Mota for resection 01/10/2022 - benign findings of ciliated foregut cyst. Colonoscopy. Done for + Cologuard was negative. Dyspnea wheezing - uses a nebulizer but is still smoking. New bilateral lung nodules - could be infectious / inflammatory however have continued to grow on serial CT scans. While these are highly suspicious, I suspect that they are too small to attempt biopsy which have confirmed with Dr. Carter. Will obtain PET scanning and then continue serial CT evaluation. Will consider thoracic surgery referral for biopsy as suspicion increases. Additional changes on CT January 04, 2023 with some resolution but some with growth. February 2023 repeat PET/CT shows progression of multiple pulmonary nodules with one nodule in the left upper lobe measuring 1.7 x 0.9 cm subpleural previously 0.8 x 0.7 cm FDG avidity with max SUV of 2.8. He also has a 1.0 x 0.8 cm posterior right lower lobe nodule that was previously 0.8 x 0.7 cm max SUV of 1.8. Since SUV measurements are still fairly low, will obtain repeat PET/CT in 2 months and make an assessment on plan for biopsy. PLAN: PET/CT in 8 weeks and return after to review. HPI: Updated Visit, March 03, 2023: Alessio returns with his son chacho and his younger Sister Maria Teresa today. Overall he feels generally asymptomatic. 02/21/2023 PET/CT reviewed with images reviewed as well. This demonstrates interval increase in size and number of innumerable bilateral pulmonary nodules some of which demonstrate borderline FDG activity. His findings are most compatible with metastatic disease. Updated Visit, January 04, 2023: Good spirits - returns with younger sister Maria Teresa. CT images reviewed and will call regarding final read. 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 Recently, he was found to have a positive TB test and will need to undergo bronchoscopy with lavage and culture. I have encouraged him to get this set up with Dr. Lentz and have spoken with her as well. Updated Visit, October 07, 2022: Reviewed results of scans: PET with multiple foci of uptake most active in MOOKIE. Concerning for metastatic disease. Received discussion with Dr. Carter - lesions are too small to biopsy - may need surgical biopsy. Will likely need CT's in 8 weeks in serial fashion in order not to miss any evidence of growth. Updated Visit, September 15, 2022: Reviewed Repeat CT results with him - images and personal interpretation prior to official read indicate enlarging nodules. Discussion with Dr. Carter to consider biopsy vs. Continued observation yielded a decision to continue observation. I will get a baseline PET/CT. He is here with his son Bari. Updated Visit, July 21, 2022: Sister Maria Teresa with him today 07/14/2022 CT Chest - development of innumerable pulmonary nodules - infectous / inflammatory vs neoplastic. All below PET range (7mm and less). He is at his baseline state of health. Labs unremarkable. Updated Visit, March 31, 2022: Bari son is with him today. He still smokes. Reviewed images with him personally. Scan results pending but preliminarily appear without concerning lesion and with left apical emphysema Updated (more content not included)...[facility]06-30-2023 Instructions* Patient Instructions* Jaya Bai MD - 03/03/2023 2:21 PM EDT PET/CT in 8 weeks and return after to review. [facility] History of Present illness Narrative* Jaya Bai MD - 03/03/2023 2:09 PM EDT Images from the original note were not included. NAME: Alessio Burns [facility] NO.: [id number] DATE OF SERVICE: March 03, 2023 ([facility] Some elements in this clinic note that are critical to medical decision making have been carefully reviewed and included from a prior clinic note dated: January 04, 2023 (Zac) Referring Provider: Dr. 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 He actually presented with an acute myocardial infarction and had to undergo CABG and aortic valve repair emergently in June 08, 2020. Subsequent work-up demonstrated malignancy with no evidence of metastatic disease and he underwent resection in July 2020 after he had recovered from his cardiac surgery. He was not a candidate for adjuvant therapy given his almost 6-month gap between resection and presentation to hi. He remains at high risk because of tobacco use. Restaging is non-specific for recurrence of lung cancer but short interval CT's found a new liver lesion which then persisted through December 2021. He saw Dr. Mota for resection 01/10/2022 - benign findings of ciliated foregut cyst. Colonoscopy. Done for + Cologuard was negative. Dyspnea wheezing - uses a nebulizer but is still smoking. New bilateral lung nodules - could be infectious / inflammatory however have continued to grow on serial CT scans. While these are highly suspicious, I suspect that they are too small to attempt biopsy which have confirmed with Dr. Carter. Will obtain PET scanning and then continue serial CT evaluation. Will consider thoracic surgery referral for biopsy as suspicion increases. Additional changes on CT January 04, 2023 with some resolution but some with growth. February 2023 repeat PET/CT shows progression of multiple pulmonary nodules with one nodule in the left upper lobe measuring 1.7 x 0.9 cm subpleural previously 0.8 x 0.7 cm FDG avidity with max SUV of 2.8. He also has a 1.0x 0.8 cm posterior right lower lobe nodule that was previously 0.8 x 0.7 cm max SUV of 1.8. Since SUV measurements are still fairly low, will obtain repeat PET/CT in 2 months and make an assessment on plan for biopsy. PLAN: PET/CT in 8 weeks and return after to review. HPI: Updated Visit, March 03, 2023: Alessio returns with his son during and his younger Sister Maria Teresa today. Overall he feels generally asymptomatic. 02/21/2023 PET/CT reviewed with images reviewed as well. This demonstrates interval increase in size and number of innumerable bilateral pulmonary nodules some of which demonstrate borderline FDG activity. His findings are most compatible with metastatic disease. Updated Visit, January 04, 2023: Good spirits - returns with younger sister Maria Teresa. CT images reviewed and will call regarding final read. 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 Recently, he was found to have a positive TB test and will need to undergo bronchoscopy with lavageand culture. I have encouraged him to get this set up with Dr. Lentz and have spoken with her as well. Updated Visit, October 07, 2022: Reviewed results of scans: PET with multiple foci of uptake most active in MOOKIE. Concerning for metastatic disease. Received discussion with Dr. Carter - lesions are too small to biopsy - may need surgical biopsy. Will likely need CT's in 8 weeks in serial fashion in order not to miss any evidence of growth. Updated Visit, September 15, 2022: Reviewed Repeat CT results with him - images and personal interpretation prior to official read indicate enlarging nodules. Discussion with Dr. Carter to consider biopsy vs. Continued observation yielded a decision to continue observation. I will get a baseline PET/CT. He is here with his son Bari. Updated Visit, July 21, 2022: Sister Maria Teresa with him today 07/14/2022 CT Chest - development of innumerable pulmonary nodules - infectous / inflammatory vs neoplastic. All below PET range (7mm and less). He is at his baseline state of health. Labs unremarkable. Updated Visit, March 31, 2022: Bari son is with him today. He still smokes. Reviewed images with him personally. Scan results pending but preliminarily appear without concerning lesion and with left apical emphysema Updated Visit, March 02, 2022: Telephone only for 5 mins Called Alessio as requested. Reviewed findings of liver resection in 01/2022. Still complains of dyspnea but is still smoking. Will repeat CT chest in 3 - 4 weeks and have him return to review. He is in agreement. His sister Maria Teresa was on the phone as well. Updated Visit, December 17, 2021: Telephone only for 8 minutes Called as requested to discuss findings on liver CT showing subcapsular liver lesion that remains suspicious. disussed biopsy with him and he is agreeable. Updated Visit, October 29, 2021: Got COVID in September and was fairly sick - still has night sweats. Recovering but still has poor appetitie. His scans demonstrate a small liver lesion and multple mesenteric lymphnodes. I will followthese given the recent COVID infection. His sister Purvi is with him today. Updated Visit, June 25, 2021: Alessio Burns returns for follow up. There has been no significant medical changes since his lastvisit. He has a chronic cough and shortness of breath. He continues to smoke. He denies any unusualpain. He had a few episodes of sharp abdominal pain for the last 2 weeks. He states that the pain is on his right side just below his liver. The patient states that he does not consume alcohol. He has occasional constipation. He also states that sometimes urinating is difficult. Overall, he is doing fairly well. He states that his son is concerned about him and wants him to take the best care of himself that he can. 04/22/2021 [place] [place] [facility] scanned to [facility] 06/04/2021 Updated Visit, February 05, 2021: Doing well overall but still smokes. We reviewed his CT scans from 02/01/2021 which shows no evidence of recurrent diseaes but will need follow up for bilateral small pulmonary nodules. Initial Visit, January 13, 2021: Alessio Bunrs presents today for Hematology and Oncology evaluation accompanied by his Sister Maria Teresa. He is a 70 year old male who was found to have a right apical mass consistent with lung cancer during the work-up of an acute myocardial infarction with CHF and fatigue. His current ejection fraction is 40%. He is status post aortic valve repair with CABG in late 2019 (June). During that admission he was found to have a lung mass described above and bronchoscopic biopsy demonstrated sarcomatoid pathology. He was additionally found to have a PET scan demonstrating uptake in the ascending colon and has had a positive Cologuard test. He was additionally found to have a positive Cologuard and will need direct visualization with colonoscopy. Case history: May 2020: 3 cm spiculated nodule right upper lobe status post biopsy 07/21/2020 with interventional radiology. Preceding Nichole needle biopsy was negative for malignancy. PET scan June 03, 2020 showed uptake in a 3 cm right apical mass and no other disease. 07/21/2020 CT-guided core biopsy right lung: High-grade malignancy with necrosis see comment. Malignant cells stain positive for lane cytokeratin focal and p63 weak focal. Negative for neuroendocrine markers. Negative for melanoma markers. Differential diagnosis include sarcomatoid carcinoma and high-grade sarcoma among others. Additional stains pending. The patient then underwent right upper lobectomy September 24, 2020. 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 Lymphovascular invasion present. Tumor is 1 mm from inked parietal pleura. Resection margins uninvolved by invasive carcinoma. 4 lymph nodes negative for metastatic carcinoma. Pathologic staging pT2a, pN0. Lymph nodes consisted of level 8 lymph nodes excisional. Level 10, level 7 and level 11. There was lipidic spread noted. RADIOGRAPHIC DATA: Reviewed December 17, 2021 12/10/2021 CT Liver/Pelvis: 1. Since 10/22/2021, unchanged 1.1 cm hypodense subcapsular hepatic mass, which remains suspicious for a metastasis. 2. Decrease in size of previously noted mildly enlarged lymph nodes. No progressive lymphadenopathy. 3. Circumferential urinary bladder wall thickening, likely secondary to chronic outlet obstruction. 10/22/2021 CT CAP Chest 1. Newly apparent patchy bilateral groundglass opacities, left greater than right, likely infectious/inflammatory in nature. Correlation with continued follow-up examinations is recommended. 2. Bilateral less than 4 mm pulmonary nodules, stable. 3. Several subcentimeter mediastinal lymph nodes, mild soft tissue prominence at the santy bilaterally, stable. 4. Borderline aneurysmal enlargement of the ascending and mild dilation of the descending thoracic aorta, stable. Abd/Pelvis: 1. Interval development of an approximate 1.1 cm, indeterminate hepatic lesion. The possibility of newly apparent metastases cannot be excluded. 2. Newly apparent retroperitoneal and central mesenteric lymphadenopathy, as above. Correlation with continued follow-up examinations is recommended. 06/07/2021 CT Chest: IMPRESSION: 1. Interval resolution of previously noted right lower lobe nodular opacity. 2. Other residual subcentimeter nodular opacities measuring less than 5 mm, stable since 01/27/2021. 3. Subtle reticulonodular opacities in the left upper lung field most likely related to respiratory bronchiolitis or other infectious/inflammatory etiologies, stable. 4. Increased mild mucous plugging. 06/07/2021 CT abdomen and pelvis IMPRESSION: 1. No evidence of intra-abdominal/intrapelvic metastases. No interval change since 01/27/2021. 2. Fat-containing right inguinal hernia. 02/01/2021 CT Chest: 1. Postsurgical changes in keeping with right upper lobe lobectomy. 2. Bilateral nodular opacities measuring up to 5 mm in size, nonspecific. Recommend continued follow-up. 3. Previously visualized left pleural effusion has resolved. 4. No evidence of bulky intrathoracic lymphadenopathy. 5. Ectasia of ascending thoracic aorta measuring up to 4.8 cm in diameter. PATHOLOGIC PROFILE: Reviewed March 02, 2022 1. 01/10/2022 Partial liver resection: [id number] Order: [id number] Collected 01/10/2022 11:56 AM Status: Final result Visible to patient: No (inaccessible in MyChart) Dx: Liver mass 1 Result Note Component FINAL DIAGNOSIS A. Liver, partial resection: - Ciliated foregut cyst. - Parenchymal margin is not involved. - Hepatic parenchyma with mild portal inflammation. AEB/tg 01/13/2022 Diagnosis Comment We note the clinical history of a cystic liver mass. The lesion consists of a cyst lined by ciliated pseudostratified columnar epithelium with goblet cells consistent with a foregut cyst. Dysplasia is not identified. The adjacent liver parenchyma shows overall preservation of the hepatic architecture. Mild portal inflammation without interface hepatitis is identified. The interlobular bile ducts are intact. Macrovesicular steatosis is inconspicuous. No significant lobular inflammation is noted. Iron stain is neg ative for iron deposits. A trichrome stain shows no significant evidence of fibrosis. Gross Description A. LIVER PARTIAL RESECTION. Received in formalin labeled as liver mass is a wedge of liver parenchyma measuring 3.0 x 2.3 x 1.0 cm and weighing 2 g. The capsule shows cautery artifact and is inked black. The resection margin is inked orange. Sectioning reveals a smooth empty cyst measuring 1.1 x 0.8 x 0.5 cm. The the cyst extends within 1 mm of the capsule and abuts the parenchymal resection margin. The specimen is entirely submitted in formalin as follows: A1-A2 cyst in relationship to resection margin, A3-A4 remainderof specimen. Gross examination performed at [facility], [address] [place] [id number] CLIA# [id number] [facility] January 12, 2022 9:23 AM REVIEW OF SYSTEMS Per HPI and otherwise negative by full review of organ systems. ECOG PERFORMANCE STATUS: 1 PHYSICAL EXAMINATION: Vitals: BP 110/59 Pulse 61 Temp (Src) 97.6 (Temporal) Resp 16 Ht 5' 5.984 (1.68m) Wt 184lb 6.4 oz (83.6kg) SpO2 96% BMI 29.78 kg/(m^2). Body surface area is 1.97 meters squared. Exam limited to gross visualization where appropriate. Gen.: This is an age-appropriate patient in no acute distress. Head: Appears atraumatic with no visible lesions. Eyes: Pupils equally round and reactive to light, extraocular muscles are intact. Neck: Supple. Respiratory: Appears to be respiring comfortably. Neurologic: Nonfocal to gross visualization. Alert and oriented 3. Psychiatric: No evidence of inappropriate anxiety or depression. Skin: Visible areas of skin without rash, lesions, wounds or petechiae. ALLERGIES: ALLERGIES No Known Allergies MEDICATIONS: spironolactone (ALDACTONE) 25 mg tablet zolpidem (AMBIEN) 10 mg Take 10 mg by mouth once daily. TRELEGY ELLIPTA 200-62.5-25 mcg inhalation powder INHALE 1 PUFF BY MOUTH DAILY amLODIPine (NORVASC) 10 mg tablet Take 10 mg by mouth once daily. busPIRone (BUSPAR) 15 mg tablet Take 15 mg by mouth three times daily. albuterol HFA (PROVENTIL HFA, VENTOLIN HFA) 90 mcg/actuation inhaler albuterol sulfate HFA 90 mcg/actuation aerosol inhaler INHALE 2 PUFFS BY MOUTH EVERY 4 TO 6 HOURS NEEDED for shortness of breath and FOR WHEEZING aspirin, enteric coated (ASPIRIN, ENTERIC COATED) 81 mg EC tablet q 24 HR. atorvastatin (LIPITOR) 40 mg tablet atorvastatin 40 mg tablet TAKE 1 TABLET BY MOUTH AT BEDTIME furosemide (LASIX) 40 mg tablet furosemide 40 mg tablet TAKE 1 TABLET BY MOUTH DAILY metoprolol succinate ER (TOPROL XL) 100 mg Take 100 mg by mouth once daily. sacubitril-valsartan (ENTRESTO) 97-103 mg tablet Entresto 97 mg-103 mg tablet TAKE 1 TABLET BY MOUTH TWICE DAILY traZODone (DESYREL) 100 mg tablet Take 1 tablet by mouth once daily for 15 days. clopidogrel (PLAVIX) 75 mg tablet Take 1 tablet by mouth once daily for 15 days. penicillin V potassium (V-CILLIN, VEETIDS) 500 mg tablet Take 500 mg by mouth four times daily. (Patient not taking: No sig reported) oxyCODONE-acetaminophen (PERCOCET) 5-325 mg tablet TAKE 1 TABLET BY MOUTH EVERY 12 HOURS NEEDED FOR PAIN (Patient not taking: No sig reported) potassium chloride ER (K-DUR, KLOR-CON) 20 mEq tablet Take 10 mEq by mouth once daily. levoFLOXacin (LEVAQUIN) 750 mg tablet Take 750 mg by mouth once daily. (Patient not taking: No sig reported) predniSONE (DELTASONE) 20 mg tablet Take 40 mg by mouth daily with food. (Patient not taking: No sig reported) Nebulizer and Compressor For Neb 1 Each three times daily as needed. Albuterol Sulfate 1.25 mg/3 mL nebulizer solution Use 1 Ampule via nebulizer every 6 hours as needed for wheezing/shortness of breath. sildenafil (VIAGRA) 25 mg tablet sildenafil 25 mg tablet TAKE 1 TABLET BY MOUTH 30 MINUTES BEFORE sexual activity budesonide-formoterol (SYMBICORT) 160-4.5 mcg/actuation inhaler Symbicort 160 mcg-4.5 mcg/actuationHFA aerosol inhaler INHALE 2 PUFFS BY MOUTH TWICE DAILY nitroglycerin sublingual (NITROQUICK) 0.4 mg SL tablet nitroglycerin 0.4 mg sublingual tablet DISSOLVE 1 TABLET UNDER THE TONGUE NEEDED FOR CHEST PAIN- MAY REPEAT EVERY 5 MINUTES IF NEEDED (MAX 3 DOSES.- IF NO RELIEF CALL 911) LABORATORY VALUES: WBC (k/uL) Date Value 01/04/2023 10.08 RBC (m/uL) Date Value 01/04/2023 4.46 Hemoglobin (g/dL) Date Value 01/04/2023 13.4 Hematocrit (%) Date Value 01/04/2023 40.6 MCV (fL) Date Value 01/04/2023 91.0 MCH (pg) Date Value 01/04/2023 30.0 MCHC (g/dL) Date Value 01/04/2023 33.0 RDW-CV (%) Date Value 01/04/2023 13.2 Platelet Count (k/uL) Date Value 01/04/2023 261 MPV (fL) Date Value 01/04/2023 8.9 (L) Glucose (mg/dL) Date Value 01/04/2023 105 (H) BUN (mg/dL) Date Value 01/04/2023 12 Creatinine (mg/dL) Date Value 01/04/2023 1.01 Sodium (mmol/L) Date Value 01/04/2023 136 Potassium (mmol/L) Date Value 01/04/2023 4.0 Chloride (mmol/L) Date Value 01/04/2023 104 CO2 (mmol/L) Date Value 01/04/2023 25 Protein, Total (g/dL) Date Value 01/04/2023 7.6 Albumin (g/dL) Date Value 01/04/2023 4.1 Calcium, Total (mg/dL) Date Value 01/04/2023 9.2 Alkaline Phosphatase (U/L) Date Value 01/04/2023 100 Bilirubin, Total (mg/dL) Date Value 01/04/2023 0.4 AST (U/L) Date Value 01/04/2023 16 ALT (U/L) Date Value 01/04/2023 8 (L) DIAGNOSIS: (C34.90) Malignant neoplasm of unspecified part of unspecified bronchus or lung (HCC) (primary encounter diagnosis) Plan: NM PET/CT SKULL-THIGH SUBSEQUENT, CBC + DIFF, COMP METABOLIC PANEL (R91.8) Lung nodules Plan: NM PET/CT SKULL-THIGH SUBSEQUENT, CBC + DIFF, COMP METABOLIC PANEL PAST MEDICAL HISTORY Diagnosis Date CAD (coronary artery disease) CHD (coronary heart disease) Chest pain, cardiac COPD (chronic obstructive pulmonary disease) (HCC) Depression Diabetes (HCC) Heart problem HTN (hypertension) Hyperlipidemia Insomnia Lung mass 01/[address] Etienne Lung trouble Tobacco user PAST SURGICAL HISTORY Procedure Laterality Date CABG (1) VEIN GRAFT & ARTERIAL GRAFT COLONOSCOPY SCREENING LOBECTOMY, SEGMENT PAST SURGICAL HISTORY OF plate in head Social History Tobacco Use Smoking status: Every Day Packs/day: 1.00 Years: 48.00 Pack years: 48.00 Types: Cigarettes Passive exposure: Current Smokeless tobacco: Never Vaping Use Vaping Use: Never used Substance Use Topics Alcohol use: Not Currently Drug use: Never FAMILY HISTORY Problem Relation Age of Onset Diabetes Mother Hypertension Mother Heart disease Mother Hypertension Father Cancer Father Heart disease Father Hypertension Sister Heart disease Sister Diabetes Sister Cancer Sister I spent a total of 30 minutes on the date of the service which included preparing to see the patient, [id number] patient care, completing clinical documentation, performing a medically appropriate examination, counseling and educating the patient/family/caregiver, ordering medications, tests, or p rocedures, communicating with other HCPs (not separately reported), independently interpreting results (not separately reported), and communicating results to the patient/family/caregiver. Jaya Bai MD, CPE Services Provided at: [facility], [place], [place] & [place], [place] CC: Shaikh Lowell [address] [facility] [id number] Maliha Lentz DO David Hykes documented in this [facility] NoteHNO ID: [id number] Author: RT Darius(R) Service: ? Author Type: Technologist Type: Progress Notes Filed: 02/21/2023 10:46 AM Note Text: RADIOLOGY SERVICE PROGRESS NOTE SERVICE DATE: 02/21/2023 SERVICE TIME: 10:46 AM PATIENT IDENTITY VERIFICATION COMPLETED USING TWO (2) STANDARD IDENTIFIERS: Name and Date of confirmed by patient verbally POST EXAM PIV STATUS: Discontinued PROCEDURE TYPE: NM INJECT: PET/CT BODY SCAN. 10.4 mCi F18 FDG. No other medications given.. ADMINISTRATION TIME: 1041 PATIENT DISCHARGED TO: Ambulatory patient, left [place] department area. A Diagnostic radioactive procedure has taken place, with no further precautions necessary other than routine body substance precautions. More information regarding radiation safety can be found using this link: [email or web address] SIGNATURE: RT Darius(R) PATIENT NAME: Alessio Burns DATE: February 21, 2023 TIME: 10:46 AM PAGER/CONTACT #:[facility]06-20-[facility]23 NoteHNO ID: [id number] Author: Adenike Rosas RN Service: ? Author Type: Registered Nurse Type: Progress Notes Filed: 02/21/2023 10:44 AM Note Text: Radiology Service Progress Note DATE OF SERVICE: February 21, 2023 TIME: 10:44 AM PATIENT IDENTITY VERIFICATION COMPLETED USING TWO (2) STANDARD IDENTIFIERS: Name and Date of confirmed by patient verbally. FALL SCREENING: Has the patient had 2 falls in the last year or 1 fall with injury or currently using an Ambulatory Assistive Device (Walker, Cane, Wheelchair, Crutches, etc.)? No PATIENT GENDER DATA: Male ALLERGIES: Reviewed and unchanged EXAM: CT -CONTRAST INDUCED NEPHROPATHY RISK FACTORS: Not applicable CREATININE: Creatinine Date Value Ref Range Status 01/04/2023 1.01 0.73 - 1.22 mg/dL Final 10/07/2022 1.12 0.73 - 1.22 mg/dL Final 09/15/2022 1.07 0.73 - 1.22 mg/dL Final Estimated Glomerular Filtration Rate Date Value Ref Range Status 01/04/2023 80 >=60 mL/min/1.73m? Final Comment: Estimated Glomerular Filtration Rate (eGFR) is calculated using the 2020 CKD-EPI creatinine equation. This equation utilizes serum creatinine, sex, and age as parameters. The creatinine assay has traceable calibration to isotope dilution-mass spectrometry. Refer to KDIGO guidelines for clinical interpretation. In patients with unstable renal function, e.g. those with acute kidney injury, the eGFR may not accurately reflect actual GFR. eGFR- Date Value Ref Range Status 10/22/2021 >60 Final P.O.C.T. RESULTS: POC done: Yes, See Lab Tab February 21, 2023 TREATMENT: No Hydration needed. IV SITE: Ambulatory: A peripheral IV was started in the Right hand with a Angio cath: 22 gauge. IV SITE APPEARANCE: Clean,Dry and Intact SIGNATURE: Adenike Rosas RN PATIENT NAME: Alessio Burns DATE: February 21, 2023 TIME: 10:44 [facility]05-05-2023 NoteHNO ID: [id number] Author: Jaya Bai MD Service: ? Author Type: Physician Type: Progress Notes Filed: 01/07/2023 10:49 AM Note Text: [facility] to [facility]23 NoteHNO ID: [id number] Author: Jaya Bai MD Service: ? Author Type: Physician Type: Progress Notes Filed: 01/08/2023 1:15 PM Note Text: NAME: Alessio Burns [facility] NO.: [id number] DATE OF SERVICE: January 04, 2023 (Zac) Some elements in this clinic note that are critical to medical decision making have been carefully reviewed and included from a prior clinic note dated: November 22, 2022 AND October 07, 2022 (Zac) Referring Provider: Dr. 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 He actually presented with an acute myocardial infarction and had to undergo CABG and aortic valve repair emergently in June 08, 2020. Subsequent work-up demonstrated malignancy with no evidence of metastatic disease and he underwent resection in July 2020 after he had recovered from his cardiac surgery. He was not a candidate for adjuvant therapy given his almost 6-month gap between resection and presentation to me. He remains at high risk because of tobacco use. Restaging is non-specific for recurrence of lung cancer but short interval CT's found a new liver lesion which then persisted through December 2021. He saw Dr. Mota for resection 01/10/2022 - benign findings of ciliated foregut cyst. Colonoscopy. Done for + Cologuard was negative. Dyspnea wheezing - uses a nebulizer but is still smoking. New bilateral lung nodules - could be infectious / inflammatory however have continued to grow on serial CT scans. While these are highly suspicious, I suspect that they are too small to attempt biopsy which have confirmed with Dr. Carter. Will obtain PET scanning and then continue serial CT evaluation. Will consider thoracic surgery referral for biopsy as suspicion increases. Additional changes on CT January 04, 2023 with some resolution but some with growth. Will repeat PET/CT PLAN: PET/CT in 6 weeks and return after to review. HPI: Updated Visit, January 04, 2023: Good spirits - returns with younger sister Maria Teresa. CT images reviewed and will call regarding final read. 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 Recently, he was found to have a positive TB test and will need to undergo bronchoscopy with lavage and culture. I have encouraged him to get this set up with Dr. Lentz and have spoken with her as well. Updated Visit, October 07, 2022: Reviewed results of scans: PET with multiple foci of uptake most active in MOOKIE. Concerning for metastatic disease. Received discussion with Dr. Carter - lesions are too small to biopsy - may need surgical biopsy. Will likely need CT's in 8 weeks in serial fashion in order not to miss any evidence of growth. Updated Visit, September 15, 2022: Reviewed Repeat CT results with him - images and personal interpretation prior to official read indicate enlarging nodules. Discussion with Dr. Carter to consider biopsy vs. Continued observation yielded a decision to continue observation. I will get a baseline PET/CT. He is here with his son Bari. Updated Visit, July 21, 2022: Sister Maria Teresa with him today 07/14/2022 CT Chest - development of innumerable pulmonary nodules - infectous / inflammatory vs neoplastic. All below PET range (7mm and less). He is at his baseline state of health. Labs unremarkable. Updated Visit, March 31, 2022: Bari son is with him today. He still smokes. Reviewed images with him personally. Scan results pending but preliminarily appear without concerning lesion and with left apical emphysema Updated Visit, March 02, 2022: Telephone only for 5 mins Called Alessio as requested. Reviewed findings of liver resection in 01/2022. Still complains of dyspnea but is still smoking. Will repeat CT chest in 3 - 4 weeks and have him return to review. He is in agreement. His sister Maria Teresa was on the phone as well. Updated Visit, December 17, 2021: Telephone only for 8 minutes Called as requested to discuss findings on liver CT showing subcapsular liver lesion that remains suspicious. disussed biopsy with him and he is agreeable. Updated Visit, October 29, 2021: Got COVID in September and was fairly sick - still has night sweats. Recovering but still has poor appetitie. His scans demonstrate a small liver lesion and multple mesenteric lymphnodes. I will follow these given the recent COVID infection. His sister Steven (more content not included)...[facility] 01-04-2023 Instructions* Patient Instructions* Jaya Bai MD - 01/04/2023 2:40 PM EDT 1. Call with CT results [facility] NoteHNO ID: [id number] Author: Cinthya Dickens RN Service: ? Author Type: Registered Nurse Type: Progress Notes Filed: 01/04/2023 1:03 PM Note Text: Radiology Service Progress Note DATE OF SERVICE: January 04, 2023 TIME: 1:01 PM PATIENT WEIGHT: 188 LBS PATIENT IDENTITY VERIFICATION COMPLETED USING TWO (2) STANDARD IDENTIFIERS: Name and Date of confirmed by patient verbally. FALL SCREENING: Has the patient had 2 falls in the last year or 1 fall with injury or currently using an Ambulatory Assistive Device (Walker, Cane, Wheelchair, Crutches, etc.)? No PATIENT GENDER DATA: Male ALLERGIES: Reviewed and unchanged CONTRAST ALLERGY: No EXAM: CT -CONTRAST INDUCED NEPHROPATHY RISK FACTORS: Patient age > 60 years and Congestive Heart Failure (CHF) CREATININE: Creatinine Date Value Ref Range Status 01/04/2023 1.01 0.73 - 1.22 mg/dL Final 10/07/2022 1.12 0.73 - 1.22 mg/dL Final 09/15/2022 1.07 0.73 - 1.22 mg/dL Final Estimated Glomerular Filtration Rate Date Value Ref Range Status 01/04/2023 80 >=60 mL/min/1.73m? Final Comment: Estimated Glomerular Filtration Rate (eGFR) is calculated using the 2020 CKD-EPI creatinine equation. This equation utilizes serum creatinine, sex, and age as parameters. The creatinine assay has traceable calibration to isotope dilution-mass spectrometry. Refer to KDIGO guidelines for clinical interpretation. In patients with unstable renal function, e.g. those with acute kidney injury, the eGFR may not accurately reflect actual GFR. eGFR- Date Value Ref Range Status 10/22/2021 >60 Final P.O.C.T. RESULTS: POC done: Yes, See Lab Tab January 04, 2023 TREATMENT: No Hydration needed. IV SITE: Ambulatory: A peripheral IV was started in the Right antecubital site with a Angio cath: 20 gauge. IV SITE APPEARANCE: Clean,Dry and Intact SIGNATURE: Cinthya Dickens RN PATIENT NAME: Alessio Burns DATE: January 04, 2023 TIME: 1:01 [facility]05-03-2023 NoteHNO ID: [id number] Author: RT Darius(Arslan) Service: ? Author Type: Technologist Type: Progress Notes Filed: 01/04/2023 12:36 PM Note Text: Radiology Service Progress Note PATIENT NAME: Alessio Burns DATE OF SERVICE: January 04, 2023 TIME: 12:36 PM PATIENT IDENTITY VERIFICATION COMPLETED USING TWO (2) IDENTIFIERS: Name and Date of confirmed by patient verbally. FALL SCREENING: Has the patient had 2 falls in the last year or 1 fall with injury or currently using an Ambulatory Assistive Device (Walker, Cane, Wheelchair, Crutches, etc.)? No PATIENT GENDER DATA: Male PATIENT RELEVANT IMPLANT DATA REVIEWED: Not Applicable RADIOLOGY DEPARTMENT: CT; Exam(s) Completed: Chest Abdomen Pelvis With IV and Oral contrast PERIPHERAL IV DATA: Site assessment: Clean,Dry and Intact, Site disposition Discontinued SIGNED BY: RT Darius(Arslan) January 04, 2023 12:36 [facility]05-03-2023 History of Present illness Narrative* Jaya Bai MD - 01/04/2023 1:59 PM EDT Images from the original note were not included. NAME: Alessio Burns [facility] NO.: [id number] DATE OF SERVICE: January 04, 2023 (Zac) Some elements in this clinic note that are critical to medical decision making have been carefully reviewed and included from a prior clinic note dated: November 22, 2022 & October 07, 2022 (Zac) Referring Provider: Dr. 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 He actually presented with an acute myocardial infarction and had to undergo CABG and aortic valve repair emergently in June 08, 2020. Subsequent work-up demonstrated malignancy with no evidence of metastatic disease and he underwent resection in July 2020 after he had recovered from his cardiac surgery. He was not a candidate for adjuvant therapy given his almost 6-month gap between resection and presentation to me. He remains at high risk because of tobacco use. Restaging is non-specific for recurrence of lung cancer but short interval CT's found a new liver lesion which then persisted through December 2021. He saw Dr. Mota for resection 01/10/2022 - benign findings of ciliated foregut cyst. Colonoscopy. Done for + Cologuard was negative. Dyspnea wheezing - uses a nebulizer but is still smoking. New bilateral lung nodules - could be infectious / inflammatory however have continued to grow on serial CT scans. While these are highly suspicious, I suspect that they are too small to attempt biopsy which have confirmed with Dr. Carter. Will obtain PET scanning and then continue serial CT evaluation. Will consider thoracic surgery referral for biopsy as suspicion increases. Additional changes on CT January 04, 2023 with some resolution but some with growth. Will repeat PET/CT PLAN: PET/CT in 6 weeks and return after to review. HPI: Updated Visit, January 04, 2023: Good spirits - returns with younger sister Maria Teresa. CT images reviewed and will call regarding final read. 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 Recently, he was found to have a positive TB test and will need to undergo bronchoscopy with lavageand culture. I have encouraged him to get this set up with Dr. Lentz and have spoken with her as well. Updated Visit, October 07, 2022: Reviewed results of scans: PET with multiple foci of uptake most active in MOOKIE. Concerning for metastatic disease. Received discussion with Dr. Carter - lesions are too small to biopsy - may need surgical biopsy. Will likely need CT's in 8 weeks in serial fashion in order not to miss any evidence of growth. Updated Visit, September 15, 2022: Reviewed Repeat CT results with him - images and personal interpretation prior to official read indicate enlarging nodules. Discussion with Dr. Carter to consider biopsy vs. Continued observation yielded a decision to continue observation. I will get a baseline PET/CT. He is here with his son Bari. Updated Visit, July 21, 2022: Sister Maria Teresa with him today 07/14/2022 CT Chest - development of innumerable pulmonary nodules - infectous / inflammatory vs neoplastic. All below PET range (7mm and less). He is at his baseline state of health. Labs unremarkable. Updated Visit, March 31, 2022: Bari son is with him today. He still smokes. Reviewed images with him personally. Scan results pending but preliminarily appear without concerning lesion and with left apical emphysema Updated Visit, March 02, 2022: Telephone only for 5 mins Called Alessio as requested. Reviewed findings of liver resection in 01/2022. Still complains of dyspnea but is still smoking. Will repeat CT chest in 3 - 4 weeks and have him return to review. He is in agreement. His sister Maria Teresa was on the phone as well. Updated Visit, December 17, 2021: Telephone only for 8 minutes Called as requested to discuss findings on liver CT showing subcapsular liver lesion that remains suspicious. disussed biopsy with him and he is agreeable. Updated Visit, October 29, 2021: Got COVID in September and was fairly sick - still has night sweats. Recovering but still has poor appetitie. His scans demonstrate a small liver lesion and multple mesenteric lymphnodes. I will followthese given the recent COVID infection. His sister Purvi is with him today. Updated Visit, June 25, 2021: Alessio Burns returns for follow up. There has been no significant medical changes since his lastvisit. He has a chronic cough and shortness of breath. He continues to smoke. He denies any unusualpain. He had a few episodes of sharp abdominal pain for the last 2 weeks. He states that the pain is on his right side just below his liver. The patient states that he does not consume alcohol. He has occasional constipation. He also states that sometimes urinating is difficult. Overall, he is doing fairly well. He states that his son is concerned about him and wants him to take the best care of himself that he can. 04/22/2021 [place] [place] [facility] scanned to [facility] 06/04/2021 Updated Visit, February 05, 2021: Doing well overall but still smokes. We reviewed his CT scans from 02/01/2021 which shows no evidence of recurrent diseaes but will need follow up for bilateral small pulmonary nodules. Initial Visit, January 13, 2021: Alessio Burns presents today for Hematology and Oncology evaluation accompanied by his Sister Maria Teresa. He is a 70 year old male who was found to have a right apical mass consistent with lung cancer during the work-up of an acute myocardial infarction with CHF and fatigue. His current ejection fraction is 40%. He is status post aortic valve repair with CABG in late 2019 (June). During that admission he was found to have a lung mass described above and bronchoscopic biopsy demonstrated sarcomatoid pathology. He was additionally found to have a PET scan demonstrating uptake in the ascending colon and has had a positive Cologuard test. He was additionally found to have a positive Cologuard and will need direct visualization with colonoscopy. Case history: May 2020: 3 cm spiculated nodule right upper lobe status post biopsy 07/21/2020 with interventional radiology. Preceding Nichole needle biopsy was negative for malignancy. PET scan June 03, 2020 showed uptake in a 3 cm right apical mass and no other disease. 07/21/2020 CT-guided core biopsy right lung: High-grade malignancy with necrosis see comment. Malignant cells stain positive for lane cytokeratin focal and p63 weak focal. Negative for neuroendocrine markers. Negative for melanoma markers. Differential diagnosis include sarcomatoid carcinoma and high-grade sarcoma among others. Additional stains pending. The patient then underwent right upper lobectomy September 24, 2020. 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 Lymphovascular invasion present. Tumor is 1 mm from inked parietal pleura. Resection margins uninvolved by invasive carcinoma. 4 lymph nodes negative for metastatic carcinoma. Pathologic staging pT2a, pN0. Lymph nodes consisted of level 8 lymph nodes excisional. Level 10, level 7 and level 11. There was lipidic spread noted. RADIOGRAPHIC DATA: Reviewed December 17, 2021 12/10/2021 CT Liver/Pelvis: 1. Since 10/22/2021, unchanged 1.1 cm hypodense subcapsular hepatic mass, which remains suspicious for a metastasis. 2. Decrease in size of previously noted mildly enlarged lymph nodes. No progressive lymphadenopathy. 3. Circumferential urinary bladder wall thickening, likely secondary to chronic outlet obstruction. 10/22/2021 CT CAP Chest 1. Newly apparent patchy bilateral groundglass opacities, left greater than right, likely infectious/inflammatory in nature. Correlation with continued follow-up examinations is recommended. 2. Bilateral less than 4 mm pulmonary nodules, stable. 3. Several subcentimeter mediastinal lymph nodes, mild soft tissue prominence at the santy bilaterally, stable. 4. Borderline aneurysmal enlargement of the ascending and mild dilation of the descending thoracic aorta, stable. Abd/Pelvis: 1. Interval development of an approximate 1.1 cm, indeterminate hepatic lesion. The possibility of newly apparent metastases cannot be excluded. 2. Newly apparent retroperitoneal and central mesenteric lymphadenopathy, as above. Correlation with continued follow-up examinations is recommended. 06/07/2021 CT Chest: IMPRESSION: 1. Interval resolution of previously noted right lower lobe nodular opacity. 2. Other residual subcentimeter nodular opacities measuring less than 5 mm, stable since 01/27/2021. 3. Subtle reticulonodular opacities in the left upper lung field most likely related to respiratory bronchiolitis or other infectious/inflammatory etiologies, stable. 4. Increased mild mucous plugging. 06/07/2021 CT abdomen and pelvis IMPRESSION: 1. No evidence of intra-abdominal/intrapelvic metastases. No interval change since 01/27/2021. 2. Fat-containing right inguinal hernia. 02/01/2021 CT Chest: 1. Postsurgical changes in keeping with right upper lobe lobectomy. 2. Bilateral nodular opacities measuring up to 5 mm in size, nonspecific. Recommend continued follow-up. 3. Previously visualized left pleural effusion has resolved. 4. No evidence of bulky intrathoracic lymphadenopathy. 5. Ectasia of ascending thoracic aorta measuring up to 4.8 cm in diameter. PATHOLOGIC PROFILE: Reviewed March 02, 2022 1. 01/10/2022 Partial liver resection: [id number] Order: [id number] Collected 01/10/2022 11:56 AM Status: Final result Visible to patient: No (inaccessible in MyChart) Dx: Liver mass 1 Result Note Component FINAL DIAGNOSIS A. Liver, partial resection: - Ciliated foregut cyst. - Parenchymal margin is not involved. - Hepatic parenchyma with mild portal inflammation. AEB/tg 01/13/2022 Diagnosis Comment We note the clinical history of a cystic liver mass. The lesion consists of a cyst lined by ciliated pseudostratified columnar epithelium with goblet cells consistent with a foregut cyst. Dysplasia is not identified. The adjacent liver parenchyma shows overall preservation of the hepatic architecture. Mild portal inflammation without interface hepatitis is identified. The interlobular bile ducts are intact. Macrovesicular steatosis is inconspicuous. No significant lobular inflammation is noted. Iron stain is neg ative for iron deposits. A trichrome stain shows no significant evidence of fibrosis. Gross Description A. LIVER PARTIAL RESECTION. Received in formalin labeled as liver mass is a wedge of liver parenchyma measuring 3.0 x 2.3 x 1.0 cm and weighing 2 g. The capsule shows cautery artifact and is inked black. The resection margin is inked orange. Sectioning reveals a smooth empty cyst measuring 1.1 x 0.8 x 0.5 cm. The the cyst extends within 1 mm of the capsule and abuts the parenchymal resection margin. The specimen is entirely submitted in formalin as follows: A1-A2 cyst in relationship to resection margin, A3-A4 remainderof specimen. Gross examination performed at [facility], [address] [place] [id number] IA# [id number] [facility] January 12, 2022 9:23 AM REVIEW OF SYSTEMS Per HPI and otherwise negative by full review of organ systems. ECOG PERFORMANCE STATUS: 1 PHYSICAL EXAMINATION: Vitals: BP 139/62 Pulse 59 Temp (Src) 97.5 (Temporal) Resp 16 Ht 5' 5.984 (1.68m) Wt 188lb 6.4 oz (85.5kg) SpO2 98% BMI 30.42 kg/(m^2). Body surface area is 2 meters squared. Exam limited to gross visualization where appropriate due to COVID-19. Gen.: This is an age-appropriate patient in no acute distress. Head: Appears atraumatic with no visible lesions. Eyes: Pupils equally round and reactive to light, extraocular muscles are intact. Neck: Supple. Mouth: Mucous membranes appeared to be moist. Respiratory: Appears to be respiring comfortably. Neurologic: Nonfocal to gross visualization. Alert and oriented 3. Psychiatric: No evidence of inappropriate anxiety or depression. Skin: Visible areas of skin without rash, lesions, wounds or petechiae. ALLERGIES: ALLERGIES No Known Allergies MEDICATIONS: spironolactone (ALDACTONE) 25 mg tablet zolpidem (AMBIEN) 10 mg Take 10 mg by mouth once daily. TRELEGY ELLIPTA 200-62.5-25 mcg inhalation powder INHALE 1 PUFF BY MOUTH DAILY potassium chloride ER (K-DUR, KLOR-CON) 20 mEq tablet Take 10 mEq by mouth once daily. amLODIPine (NORVASC) 10 mg tablet Take 10 mg by mouth once daily. Nebulizer and Compressor For Neb 1 Each three times daily as needed. Albuterol Sulfate 1.25 mg/3 mL nebulizer solution Use 1 Ampule via nebulizer every 6 hours as needed for wheezing/shortness of breath. sildenafil (VIAGRA) 25 mg tablet sildenafil 25 mg tablet TAKE 1 TABLET BY MOUTH 30 MINUTES BEFORE sexual activity busPIRone (BUSPAR) 15 mg tablet Take 15 mg by mouth three times daily. albuterol HFA (PROVENTIL HFA, VENTOLIN HFA) 90 mcg/actuation inhaler albuterol sulfate HFA 90 mcg/actuation aerosol inhaler INHALE 2 PUFFS BY MOUTH EVERY 4 TO 6 HOURS NEEDED for shortness of breath and FOR WHEEZING aspirin, enteric coated (ASPIRIN, ENTERIC COATED) 81 mg EC tablet q 24 HR. atorvastatin (LIPITOR) 40 mg tablet atorvastatin 40 mg tablet TAKE 1 TABLET BY MOUTH AT BEDTIME clopidogrel (PLAVIX) 75 mg tablet clopidogrel 75 mg tablet TAKE 1 TABLET BY MOUTH ONCE DAILY furosemide (LASIX) 40 mg tablet furosemide 40 mg tablet TAKE 1 TABLET BY MOUTH DAILY metoprolol succinate ER (TOPROL XL) 100 mg Take 100 mg by mouth once daily. nitroglycerin sublingual (NITROQUICK) 0.4 mg SL tablet nitroglycerin 0.4 mg sublingual tablet DISSOLVE 1 TABLET UNDER THE TONGUE NEEDED FOR CHEST PAIN- MAY REPEAT EVERY 5 MINUTES IF NEEDED (MAX 3 DOSES.- IF NO RELIEF CALL 911) sacubitril-valsartan (ENTRESTO) 97-103 mg tablet Entresto 97 mg-103 mg tablet TAKE 1 TABLET BY MOUTH TWICE DAILY penicillin V potassium (V-CILLIN, VEETIDS) 500 mg tablet Take 500 mg by mouth four times daily. (Patient not taking: No sig reported) oxyCODONE-acetaminophen (PERCOCET) 5-325 mg tablet TAKE 1 TABLET BY MOUTH EVERY 12 HOURS NEEDED FOR PAIN (Patient not taking: No sig reported) traZODone (DESYREL) 100 mg tablet Take 100 mg by mouth once daily. (Patient not taking: No sig reported) levoFLOXacin (LEVAQUIN) 750 mg tablet Take 750 mg by mouth once daily. (Patient not taking: No sig reported) predniSONE (DELTASONE) 20 mg tablet Take 40 mg by mouth daily with food. (Patient not taking: No sig reported) budesonide-formoterol (SYMBICORT) 160-4.5 mcg/actuation inhaler Symbicort 160 mcg-4.5 mcg/actuationHFA aerosol inhaler INHALE 2 PUFFS BY MOUTH TWICE DAILY LABORATORY VALUES: WBC (k/uL) Date Value 01/04/2023 10.08 RBC (m/uL) Date Value 01/04/2023 4.46 Hemoglobin (g/dL) Date Value 01/04/2023 13.4 Hematocrit (%) Date Value 01/04/2023 40.6 MCV (fL) Date Value 01/04/2023 91.0 MCH (pg) Date Value 01/04/2023 30.0 MCHC (g/dL) Date Value 01/04/2023 33.0 RDW-CV (%) Date Value 01/04/2023 13.2 Platelet Count (k/uL) Date Value 01/04/2023 261 MPV (fL) Date Value 01/04/2023 8.9 (L) Glucose (mg/dL) Date Value 01/04/2023 105 (H) BUN (mg/dL) Date Value 01/04/2023 12 Creatinine (mg/dL) Date Value 01/04/2023 1.01 Sodium (mmol/L) Date Value 01/04/2023 136 Potassium (mmol/L) Date Value 01/04/2023 4.0 Chloride (mmol/L) Date Value 01/04/2023 104 CO2 (mmol/L) Date Value 01/04/2023 25 Protein, Total (g/dL) Date Value 01/04/2023 7.6 Albumin (g/dL) Date Value 01/04/2023 4.1 Calcium, Total (mg/dL) Date Value 01/04/2023 9.2 Alkaline Phosphatase (U/L) Date Value 01/04/2023 100 Bilirubin, Total (mg/dL) Date Value 01/04/2023 0.4 AST (U/L) Date Value 01/04/2023 16 ALT (U/L) Date Value 01/04/2023 8 (L) DIAGNOSIS: No diagnosis found. PAST MEDICAL HISTORY Diagnosis Date CAD (coronary artery disease) CHD (coronary heart disease) Chest pain, cardiac COPD (chronic obstructive pulmonary disease) (HCC) Depression Diabetes (HCC) Heart problem HTN (hypertension) Hyperlipidemia Insomnia Lung mass 01/[address] Etienne Lung trouble Tobacco user PAST SURGICAL HISTORY Procedure Laterality Date CABG (1) VEIN GRAFT & ARTERIAL GRAFT COLONOSCOPY SCREENING LOBECTOMY, SEGMENT PAST SURGICAL HISTORY OF plate in head Social History Tobacco Use Smoking status: Every Day Packs/day: 1.00 Years: 48.00 Pack years: 48.00 Types: Cigarettes Passive exposure: Current Smokeless tobacco: Never Vaping Use Vaping Use: Never used Substance Use Topics Alcohol use: Not Currently Drug use: Never FAMILY HISTORY Problem Relation Age of Onset Diabetes Mother Hypertension Mother Heart disease Mother Hypertension Father Cancer Father Heart disease Father Hypertension Sister Heart disease Sister Diabetes Sister Cancer Sister I spent a total of 30 minutes on the date of the service which included preparing to see the patient, [id number] patient care, completing clinical documentation, performing a medically appropriate examination, counseling and educating the patient/family/caregiver, ordering medications, tests, or p rocedures, communicating with other HCPs (not separately reported), independently interpreting results (not separately reported), and communicating results to the patient/family/caregiver. Jaya Bai MD, CPE Services Provided at: [place], [place] & [place], [place] CC: Shaikh Lowell [address] [facility] [id number] Maliha Lentz DO David Hykes documented in [facility] NoteCardiology Clinic Note Subjective Alessio Burns is a 72 y.o. year old male with past medical history of aortic valve stenosis status post replacement with bioprosthetic aortic valve, heart failure improved ejection fraction, coronary artery disease status post CABG in June 2020, lung cancer status post lobectomy September 2020, COPD, tobacco dependence, and hypertension seen in follow-up. He has been experiencing chest discomfort occurring at rest lasting for 7 to 8 seconds seconds, no pain on exertion. He is a current 1.5 pack/day smoker. Patient Active Problem List Diagnosis Aneurysm of thoracic aorta (CMS/HCC) Aortic valve stenosis Carotid artery stenosis Chronic obstructive lung disease (CMS/HCC) Coronary arteriosclerosis Insomnia Left ventricular thrombus Lung mass Systolic heart failure (CMS/HCC) Chronic diastolic heart failure (CMS/HCC) History of aortic valve replacement with bioprosthetic valve History of coronary artery bypass graft Cancer of trachea, bronchus, and lung (CMS/HCC) Depression Dyspnea on exertion HLD (hyperlipidemia) HTN (hypertension) Lung nodules Panlobular emphysema (CMS/HCC) Smoker Family History Problem Relation Name Age of Onset Diabetes Mother Heart disease Mother Heart disease Father Coronary artery disease Sister Social History Tobacco Use Smoking status: Every Day Packs/day: 1.00 Types: Cigarettes Smokeless tobacco: Never Substance Use Topics Alcohol use: Yes Comment: occasional Drug use: Never SINCERE Jose Angel is seen in follow-up. He is a 71-year-old man who has history of coronary artery disease, aortic valve stenosis, systolic heart failure, and left-ventricular thrombus that was not seen on intraoperative AJAY. In June 2020 he underwent cardiac surgery including bypass surgery and aortic valve replacement with a bioprosthetic aortic valve. His ejection fraction improved to 40% post CABG. [Prior history per prior visits: Newly noted decreased EF 30-35%- recovered to 40% post CABG, Multivessel CAD s/p CABG per Dr Lisa, Thoracic aneurysm, LV thrombus, Severe AO stenosis s/p valve replacement, Lung mass and pleural effusion s/p thoracentesis. AJAY during surgery did not show LV thrombus therefore CT surgeon Dr. Lisa discontinued anticoagulation. Pulmonary and oncology were both consulted to evaluate for possible malignancy related to lung mass noted on CT. diagnostic thoracentesis was completed and no malignancy was noted in pathology.] At visit of 07/29/2020 I added Entresto and then increased the dose on the visit of 09/07/2020 and then again on the visit of 11/23/2020. He underwent lobectomy for lung cancer on 09/24/2020 at [facility] with Dr. Lisa. He was admitted to the [facility] in February 2021 with atypical chest pain. He ruled out for myocardial infarction by high-sensitivity troponin. He was admitted on 10/24/2021 to the [facility] with decompensated heart failure and COPD exacerbation. His NT proBNP was elevated and his potassium was low. He underwent diuresis. He was discharged on 10/25/2021. Potassium was added. After last visit of 02/28/2022 I checked an echocardiogram to follow-up on the size of his aortic aneurysm. The echocardiogram showed normal ventricular function and normal function of the aortic valve with the ascending aorta measuring 4.5 cm. Today he reports that he has been having episodes of sharp chest pain located on the left side of the chest lasting few seconds, this is chronic. Has chronic shortness of breath that seem to have worsened. He has no angina. No significant lower extremity swelling. No palpitations. He continues to smoke. Review of Systems Cardiovascular: Positive for chest pain and dyspnea on exertion. Negative for claudication, irregular heartbeat, leg swelling, near-syncope, orthopnea, palpitations, paroxysmal nocturnal dyspnea and syncope. Objective Visit Vitals BP 114/69 (BP Location: Left arm, Patient Position: Sitting, BP Cuff Size: Adult) Pulse 58 Ht 1.727 m (5' 8 ) Wt 86.6 kg (191 lb) SpO2 99% BMI 29.04 kg/m??? Smoking Status Every Day BSA 2.04 m??? Physical Exam General: Awake, alert, good spirits. NAD Pulm: Breath sounds clear to ascultation bilaterally with no wheeze, crackles or rhonchi Cards: Regular rate and rhythm, S1, S2. No S3 or S4 gallop. Murmur: none Abd: Soft, Nontender, physiologic bowel sounds are present Extr: Lower extremity edema: None. Skin: warm, dry, well perfused Neuro: A&Ox3, No gross deficits Allergies No Known Allergies Medications Current Outpatient Medications: albuterol 2.5 mg /3 mL (0.083 %) nebulizer solution, Take 2.5 mg by nebulization every 6 (six) hours if needed for wheezing., Disp: , Rfl: albuterol 90 mcg/actuation inhaler, INHALE 2 PUFFS BY MOUTH EVERY 4 TO 6 HOURS NEEDED SHORTNESS OF BREATH and FOR WHEEZING, Disp: , Rfl: amLODIPine (Norvasc) 10 mg tablet, Take (more content not included)...[facility]05-01-2023 NotePatient is here today for a 6 month follow up. With concerns about aneurysm. Review of Systems Constitutional: Positive for malaise/fatigue and weight gain. Cardiovascular: Positive for chest pain and irregular heartbeat. Respiratory: Positive for shortness of breath. All other systems reviewed and are negative.[facility] 11-23-2022 Miscellaneous Notes* Telephone Encounter - Karen Sanchez Pss - 11/23/2022 9:[address] Lentz office spoke with Russel. He states they have received this referral and have patient scheduled with Dr Lentz at their [place] office on 02/02 @ 2:30. Karen Sanchez Pss * Telephone Encounter - Gale Pereira [facility] - 11/22/2022 1:14 PM EDT Records faxed to Dr. Lentz. * Telephone Encounter - Jeet Fortune Sec - 11/22/2022 11:29 AM EDT Patient called back states he is sorry he forgot and did r/s to requestd dates thank you * Telephone Encounter - Jeet Fortune Sec - 11/22/2022 10:53 AM EDT Images from the original note were not included. Jaya Bai MD [facility] Clerical Pool Follow-up with Dr. Fatou Lentz for BAL and cultures in [place]. Please include pathology reports from 2020 for her to review. (Scanned on 01/12/2021) Cancel CT and visit with for tomorrow and reschedule them to 6 weeks further out please. Darleen: Called patient to reschedule appointment he doesn't understand why he has to, states Dr fam did not tell him this on the phone about tommorow. Also Katty can you please send over records to [facility] thanks! documented in this encounterLake [facility] NoteHNO ID: [id number] Author: Jaya Bai MD Service: ? Author Type: Physician Type: Progress Notes Filed: 11/22/2022 10:46 AM Note Text: AMBULATORY TELEPHONE VISIT Alessio Burns has consented to this telephone encounter. 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 Recently, he was found to have a positive TB test and will need to undergo bronchoscopy with lavage and culture. I have encouraged him to get this set up with Dr. Lentz and have spoken with her as well. 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 He has had suspicious metastatic findings but resected liver mass was negative and consistent with a ciliated foregut cyst. Currently were following pulmonary nodules are too small to biopsy. He also had a positive Cologuard that came back with diagnostic colonoscopy with only tubular adenomas and tubulovillous adenomas. This also was completed later in 2020 in April. Plan: Follow-up with Dr. Fatou Lentz for BAL and cultures in [place]. Please include pathology reports from 2020 for her to review. (Scanned on 01/12/2021) Cancel CT and visit with for tomorrow and reschedule them to 6 weeks further out please. Total Time Spent: 25 minutes Jaya Bai MD CC: [facility] Inst[facility]* Patient Instructions* Jaya Bai MD - 11/22/2022 10:39 AM EDT Follow-up with Dr. Fatou Lentz for BAL and cultures in [place]. Please include pathology reports from 2020 for her to review. (Scanned on 01/12/2021) Cancel CT and visit with for tomorrow and reschedule them to 6 weeks further out please. documented in this encounterLake [facility]03-21-[facility]23 History of Present illness Narrative* Jaya Bai MD - 11/22/2022 10:14 AM EDT AMBULATORY TELEPHONE VISIT Alessio Burns has consented to this telephone encounter. 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 Recently, he was found to have a positive TB test and will need to undergo bronchoscopy with lavageand culture. I have encouraged him to get this set up with Dr. Lentz and have spoken with her as well. 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 He has had suspicious metastatic findings but resected liver mass was negative and consistent with a ciliated foregut cyst. Currently were following pulmonary nodules are too small to biopsy. He also had a positive Cologuard that came back with diagnostic colonoscopy with only tubular adenomas and tubulovillous adenomas. This also was completed later in 2020 in April. Plan: Follow-up with Dr. Fatou Lentz for BAL and cultures in [place]. Please include pathology reports from 2021 for her to review. (Scanned on 01/12/2021) Cancel CT and visit with for tomorrow and reschedule them to 6 weeks further out please. Total Time Spent: 25 minutes Jaya Bai MD CC: Maliha Lentz documented in this encounterLake [facility]02-28-2023 Miscellaneous Notes* Telephone Encounter - Gale Pereira [facility] - 11/01/2022 1:22 PM EST Updated notes and scans faxed to Dr. Lentz. documented in this encounterLake County [facility]02-14-2023 Instructions* Patient Instructions* Jaya Bai MD - 10/18/2022 6:12 PM EST Keep plans for CT's in 8 weeks as scheduled and follow up with me in November afterwards. documented in this encounterLake [facility]02-03-2023 NoteHNO ID: [id number] Author: Jaya Bai MD Service: ? Author Type: Physician Type: Progress Notes Filed: 10/18/2022 6:12 PM Note Text: NAME: Alessio Burns [facility] NO.: [id number] DATE OF SERVICE: October 07, 2022 [facility] Some elements in this clinic note that are critical to medical decision making have been carefully reviewed and included from a prior clinic note dated: September 15, 2022 (Zac) Referring Provider: Dr. 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 He actually presented with an acute myocardial infarction and had to undergo CABG and aortic valve repair emergently in June 08, 2020. Subsequent work-up demonstrated malignancy with no evidence of metastatic disease and he underwent resection in July 2020 after he had recovered from his cardiac surgery. He was not a candidate for adjuvant therapy given his almost 6-month gap between resection and presentation to me. He remains at high risk because of tobacco use. Restaging is non-specific for recurrence of lung cancer but short interval CT's found a new liver lesion which then persisted through December 2021. He saw Dr. Mota for resection 01/10/2022 - benign findings of ciliated foregut cyst. Colonoscopy. Done for + Cologuard was negative. Dyspnea wheezing - uses a nebulizer but is still smoking. New bilateral lung nodules - could be infectious / inflammatory however have continued to grow on serial CT scans. While these are highly suspicious, I suspect that they are too small to attempt biopsy which have confirmed with Dr. Carter. Will obtain PET scanning and then continue serial CT evaluation. Will consider thoracic surgery referral for biopsy as suspicion increases. PLAN: Keep plans for CT's in 8 weeks as scheduled and follow up with me in November afterwards. HPI: Updated Visit, October 07, 2022: Reviewed results of scans: PET with multiple foci of uptake most active in [place]. Concerning for metastatic disease. Received discussion with Dr. Carter - lesions are too small to biopsy - may need surgical biopsy. Will likely need CT's in 8 weeks in serial fashion in order not to miss any evidence of growth. Updated Visit, September 15, 2022: Reviewed Repeat CT results with him - images and personal interpretation prior to official read indicate enlarging nodules. Discussion with Dr. Carter to consider biopsy vs. Continued observation yielded a decision to continue observation. I will get a baseline PET/CT. He is here with his son Bari. Updated Visit, July 21, 2022: Sister Maria Teresa with him today 07/14/2022 CT Chest - development of innumerable pulmonary nodules - infectous / inflammatory vs neoplastic. All below PET range (7mm and less). He is at his baseline state of health. Labs unremarkable. Updated Visit, March 31, 2022: Bari son is with him today. He still smokes. Reviewed images with him personally. Scan results pending but preliminarily appear without concerning lesion and with left apical emphysema Updated Visit, March 02, 2022: Telephone only for 5 mins Called Alesiso as requested. Reviewed findings of liver resection in 01/2022. Still complains of dyspnea but is still smoking. Will repeat CT chest in 3 - 4 weeks and have him return to review. He is in agreement. His sister Maria Teresa was on the phone as well. Updated Visit, December 17, 2021: Telephone only for 8 minutes Called as requested to discuss findings on liver CT showing subcapsular liver lesion that remains suspicious. disussed biopsy with him and he is agreeable. Updated Visit, October 29, 2021: Got COVID in September and was fairly sick - still has night sweats. Recovering but still has poor appetitie. His scans demonstrate a small liver lesion and multple mesenteric lymphnodes. I will follow these given the recent COVID infection. His sister Purvi is with him today. Updated Visit, June 25, 2021: Alessio Burns returns for follow up. There has been no significant medical changes since his last visit. He has a chronic cough and shortness of breath. He continues to smoke. He denies any unusual pain. He had a few episodes of sharp abdominal pain for the last 2 weeks. He states that the pain is on his right side just below his liver. The patient states that he does not consume alcohol. He has occasional constipation. He also states that sometimes urinating is difficult. Overall, he is doing fairly well. He states that his son is concerned about him and wants him to take the best care of himself that he can. 04/22/2021 Colonoscopy [place] Results scanned to [facility] 06/04/2021 Updated Visit, February 05, 2021: Doing well overall but still smokes. (more content not included)...[facility]02[facility] History of Present illness Narrative* Jaya Bai MD - 10/07/2022 3:38 PM EST Images from the original note were not included. NAME: Alessio Burns [facility] NO.: [id number] DATE OF SERVICE: October 07, 2022 ([facility]ac) Some elements in this clinic note that are critical to medical decision making have been carefully reviewed and included from a prior clinic note dated: September 15, 2022 (Zac) Referring Provider: Dr. 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 He actually presented with an acute myocardial infarction and had to undergo CABG and aortic valve repair emergently in June 08, 2020. Subsequent work-up demonstrated malignancy with no evidence of metastatic disease and he underwent resection in July 2020 after he had recovered from his cardiac surgery. He was not a candidate for adjuvant therapy given his almost 6-month gap between resection and presentation to me. He remains at high risk because of tobacco use. Restaging is non-specific for recurrence of lung cancer but short interval CT's found a new liver lesion which then persisted through December 2021. He saw Dr. Mota for resection 01/10/2022 - benign findings of ciliated foregut cyst. Colonoscopy. Done for + Cologuard was negative. Dyspnea wheezing - uses a nebulizer but is still smoking. New bilateral lung nodules - could be infectious / inflammatory however have continued to grow on serial CT scans. While these are highly suspicious, I suspect that they are too small to attempt biopsy which have confirmed with Dr. Carter. Will obtain PET scanning and then continue serial CT evaluation. Will consider thoracic surgery referral for biopsy as suspicion increases. PLAN: Keep plans for CT's in 8 weeks as scheduled and follow up with me in November afterwards. HPI: Updated Visit, October 07, 2022: Reviewed results of scans: PET with multiple foci of uptake most active in [place]. Concerning for metastatic disease. Received discussion with Dr. Carter - lesions are too small to biopsy - may need surgical biopsy. Will likely need CT's in 8 weeks in serial fashion in order not to miss any evidence of growth. Updated Visit, September 15, 2022: Reviewed Repeat CT results with him - images and personal interpretation prior to official read indicate enlarging nodules. Discussion with Dr. Carter to consider biopsy vs. Continued observation yielded a decision to continue observation. I will get a baseline PET/CT. He is here with his son Bari. Updated Visit, July 21, 2022: Sister Maria Teresa with him today 07/14/2022 CT Chest - development of innumerable pulmonary nodules - infectous / inflammatory vs neoplastic. All below PET range (7mm and less). He is at his baseline state of health. Labs unremarkable. Updated Visit, March 31, 2022: Bari son is with him today. He still smokes. Reviewed images with him personally. Scan results pending but preliminarily appear without concerning lesion and with left apical emphysema Updated Visit, March 02, 2022: Telephone only for 5 mins Called Alessio as requested. Reviewed findings of liver resection in 01/2022. Still complains of dyspnea but is still smoking. Will repeat CT chest in 3 - 4 weeks and have him return to review. He is in agreement. His sister Maria Teresa was on the phone as well. Updated Visit, December 17, 2021: Telephone only for 8 minutes Called as requested to discuss findings on liver CT showing subcapsular liver lesion that remains suspicious. disussed biopsy with him and he is agreeable. Updated Visit, October 29, 2021: Got COVID in September and was fairly sick - still has night sweats. Recovering but still has poor appetitie. His scans demonstrate a small liver lesion and multple mesenteric lymphnodes. I will followthese given the recent COVID infection. His sister Purvi is with him today. Updated Visit, June 25, 2021: Alessio Burns returns for follow up. There has been no significant medical changes since his lastvisit. He has a chronic cough and shortness of breath. He continues to smoke. He denies any unusualpain. He had a few episodes of sharp abdominal pain for the last 2 weeks. He states that the pain is on his right side just below his liver. The patient states that he does not consume alcohol. He has occasional constipation. He also states that sometimes urinating is difficult. Overall, he is doing fairly well. He states that his son is concerned about him and wants him to take the best care of himself that he can. 04/22/2021 Colonoscopy ([facility] Results scanned to [facility] 06/04/2021 Updated Visit, February 05, 2021: Doing well overall but still smokes. We reviewed his CT scans from 02/01/2021 which shows no evidence of recurrent diseaes but will need follow up for bilateral small pulmonary nodules. Initial Visit, January 13, 2021: Alessio Burns presents today for Hematology and Oncology evaluation accompanied by his Sister Maria Teresa. He is a 70 year old male who was found to have a right apical mass consistent with lung cancer during the work-up of an acute myocardial infarction with CHF and fatigue. His current ejection fraction is 40%. He is status post aortic valve repair with CABG in late 2019 (June). During that admission he was found to have a lung mass described above and bronchoscopic biopsy demonstrated sarcomatoid pathology. He was additionally found to have a PET scan demonstrating uptake in the ascending colon and has had a positive Cologuard test. He was additionally found to have a positive Cologuard and will need direct visualization with colonoscopy. Case history: May 2020: 3 cm spiculated nodule right upper lobe status post biopsy 07/21/2020 with interventional radiology. Preceding Nichole needle biopsy was negative for malignancy. PET scan June 03, 2020 showed uptake in a 3 cm right apical mass and no other disease. 07/21/2020 CT-guided core biopsy right lung: High-grade malignancy with necrosis see comment. Malignant cells stain positive for lane cytokeratin focal and p63 weak focal. Negative for neuroendocrine markers. Negative for melanoma markers. Differential diagnosis include sarcomatoid carcinoma and high-grade sarcoma among others. Additional stains pending. The patient then underwent right upper lobectomy September 24, 2020. 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 Lymphovascular invasion present. Tumor is 1 mm from inked parietal pleura. Resection margins uninvolved by invasive carcinoma. 4 lymph nodes negative for metastatic carcinoma. Pathologic staging pT2a, pN0. Lymph nodes consisted of level 8 lymph nodes excisional. Level 10, level 7 and level 11. There was lipidic spread noted. RADIOGRAPHIC DATA: Reviewed December 17, 2021 12/10/2021 CT Liver/Pelvis: 1. Since 10/22/2021, unchanged 1.1 cm hypodense subcapsular hepatic mass, which remains suspicious for a metastasis. 2. Decrease in size of previously noted mildly enlarged lymph nodes. No progressive lymphadenopathy. 3. Circumferential urinary bladder wall thickening, likely secondary to chronic outlet obstruction. 10/22/2021 CT CAP Chest 1. Newly apparent patchy bilateral groundglass opacities, left greater than right, likely infectious/inflammatory in nature. Correlation with continued follow-up examinations is recommended. 2. Bilateral less than 4 mm pulmonary nodules, stable. 3. Several subcentimeter mediastinal lymph nodes, mild soft tissue prominence at the santy bilaterally, stable. 4. Borderline aneurysmal enlargement of the ascending and mild dilation of the descending thoracic aorta, stable. Abd/Pelvis: 1. Interval development of an approximate 1.1 cm, indeterminate hepatic lesion. The possibility of newly apparent metastases cannot be excluded. 2. Newly apparent retroperitoneal and central mesenteric lymphadenopathy, as above. Correlation with continued follow-up examinations is recommended. 06/07/2021 CT Chest: IMPRESSION: 1. Interval resolution of previously noted right lower lobe nodular opacity. 2. Other residual subcentimeter nodular opacities measuring less than 5 mm, stable since 01/27/2021. 3. Subtle reticulonodular opacities in the left upper lung field most likely related to respiratory bronchiolitis or other infectious/inflammatory etiologies, stable. 4. Increased mild mucous plugging. 06/07/2021 CT abdomen and pelvis IMPRESSION: 1. No evidence of intra-abdominal/intrapelvic metastases. No interval change since 01/27/2021. 2. Fat-containing right inguinal hernia. 02/01/2021 CT Chest: 1. Postsurgical changes in keeping with right upper lobe lobectomy. 2. Bilateral nodular opacities measuring up to 5 mm in size, nonspecific. Recommend continued follow-up. 3. Previously visualized left pleural effusion has resolved. 4. No evidence of bulky intrathoracic lymphadenopathy. 5. Ectasia of ascending thoracic aorta measuring up to 4.8 cm in diameter. PATHOLOGIC PROFILE: Reviewed March 02, 2022 1. 01/10/2022 Partial liver resection: [id number] Order: [id number] Collected 01/10/2022 11:56 AM Status: Final result Visible to patient: No (inaccessible in MyChart) Dx: Liver mass 1 Result Note Component FINAL DIAGNOSIS A. Liver, partial resection: - Ciliated foregut cyst. - Parenchymal margin is not involved. - Hepatic parenchyma with mild portal inflammation. AEB/tg 01/13/2022 Diagnosis Comment We note the clinical history of a cystic liver mass. The lesion consists of a cyst lined by ciliated pseudostratified columnar epithelium with goblet cells consistent with a foregut cyst. Dysplasia is not identified. The adjacent liver parenchyma shows overall preservation of the hepatic architecture. Mild portal inflammation without interface hepatitis is identified. The interlobular bile ducts are intact. Macrovesicular steatosis is inconspicuous. No significant lobular inflammation is noted. Iron stain is neg ative for iron deposits. A trichrome stain shows no significant evidence of fibrosis. Gross Description A. LIVER PARTIAL RESECTION. Received in formalin labeled as liver mass is a wedge of liver parenchyma measuring 3.0 x 2.3 x 1.0 cm and weighing 2 g. The capsule shows cautery artifact and is inked black. The resection margin is inked orange. Sectioning reveals a smooth empty cyst measuring 1.1 x 0.8 x 0.5 cm. The the cyst extends within 1 mm of the capsule and abuts the parenchymal resection margin. The specimen is entirely submitted in formalin as follows: A1-A2 cyst in relationship to resection margin, A3-A4 remainderof specimen. Gross examination performed at [facility], [address] [place] [id number] CLIA# [id number] [facility] January 12, 2022 9:23 AM REVIEW OF SYSTEMS Per HPI and otherwise negative by full review of organ systems. ECOG PERFORMANCE STATUS: 1 PHYSICAL EXAMINATION: Vitals: BP 124/52 Pulse 52 Temp 97.8 Resp 16 Ht 5' 5.984 (1.68m) Wt 190 lb 9.6 oz (86.5kg) SpO2 100% BMI 30.78 kg/(m^2). Body surface area is 2.01 meters squared. Exam limited to gross visualization where appropriate due to COVID-19. Gen.: This is an age-appropriate patient in no acute distress. Head: Appears atraumatic with no visible lesions. Eyes: Pupils equally round and reactive to light, extraocular muscles are intact. Neck: Supple. Mouth: Mucous membranes appeared to be moist. Respiratory: Appears to be respiring comfortably. Neurologic: Nonfocal to gross visualization. Alert and oriented 3. Psychiatric: No evidence of inappropriate anxiety or depression. Skin: Visible areas of skin without rash, lesions, wounds or petechiae. ALLERGIES: ALLERGIES No Known Allergies MEDICATIONS: TRELEGY ELLIPTA 200-62.5-25 mcg inhalation powder INHALE 1 PUFF BY MOUTH DAILY traZODone (DESYREL) 100 mg tablet Take 100 mg by mouth once daily. potassium chloride ER (K-DUR, KLOR-CON) 20 mEq tablet Take 20 mEq by mouth once daily. amLODIPine (NORVASC) 10 mg tablet Take 10 mg by mouth once daily. Nebulizer and Compressor For Neb 1 Each three times daily as needed. Albuterol Sulfate 1.25 mg/3 mL nebulizer solution Use 1 Ampule via nebulizer every 6 hours as needed for wheezing/shortness of breath. sildenafil (VIAGRA) 25 mg tablet sildenafil 25 mg tablet TAKE 1 TABLET BY MOUTH 30 MINUTES BEFORE sexual activity busPIRone (BUSPAR) 15 mg tablet Take 15 mg by mouth three times daily. albuterol HFA (PROVENTIL HFA, VENTOLIN HFA) 90 mcg/actuation inhaler albuterol sulfate HFA 90 mcg/actuation aerosol inhaler INHALE 2 PUFFS BY MOUTH EVERY 4 TO 6 HOURS NEEDED for shortness of breath and FOR WHEEZING aspirin, enteric coated (ASPIRIN, ENTERIC COATED) 81 mg EC tablet q 24 HR. atorvastatin (LIPITOR) 40 mg tablet atorvastatin 40 mg tablet TAKE 1 TABLET BY MOUTH AT BEDTIME clopidogrel (PLAVIX) 75 mg tablet clopidogrel 75 mg tablet TAKE 1 TABLET BY MOUTH ONCE DAILY furosemide (LASIX) 40 mg tablet furosemide 40 mg tablet TAKE 1 TABLET BY MOUTH DAILY metoprolol succinate ER (TOPROL XL) 50 mg 24 hr tablet metoprolol succinate ER 50 mg tablet,extended release 24 hr TAKE 1 TABLET BY MOUTH EVERY DAY nitroglycerin sublingual (NITROQUICK) 0.4 mg SL tablet nitroglycerin 0.4 mg sublingual tablet DISSOLVE 1 TABLET UNDER THE TONGUE NEEDED FOR CHEST PAIN- MAY REPEAT EVERY 5 MINUTES IF NEEDED (MAX 3 DOSES.- IF NO RELIEF CALL 911) sacubitril-valsartan (ENTRESTO) 97-103 mg tablet Entresto 97 mg-103 mg tablet TAKE 1 TABLET BY MOUTH TWICE DAILY penicillin V potassium (V-CILLIN, VEETIDS) 500 mg tablet Take 500 mg by mouth four times daily. (Patient not taking: No sig reported) oxyCODONE-acetaminophen (PERCOCET) 5-325 mg tablet TAKE 1 TABLET BY MOUTH EVERY 12 HOURS NEEDED FOR PAIN (Patient not taking: No sig reported) levoFLOXacin (LEVAQUIN) 750 mg tablet Take 750 mg by mouth once daily. (Patient not taking: No sig reported) predniSONE (DELTASONE) 20 mg tablet Take 40 mg by mouth daily with food. (Patient not taking: No sig reported) budesonide-formoterol (SYMBICORT) 160-4.5 mcg/actuation inhaler Symbicort 160 mcg-4.5 mcg/actuationHFA aerosol inhaler INHALE 2 PUFFS BY MOUTH TWICE DAILY (Patient not taking: No sig reported) LABORATORY VALUES: WBC (k/uL) Date Value 10/07/2022 9.99 RBC (m/uL) Date Value 10/07/2022 4.09 (L) Hemoglobin (g/dL) Date Value 10/07/2022 12.4 (L) Hematocrit (%) Date Value 10/07/2022 37.6 (L) MCV (fL) Date Value 10/07/2022 91.9 MCH (pg) Date Value 10/07/2022 30.3 MCHC (g/dL) Date Value 10/07/2022 33.0 RDW-CV (%) Date Value 10/07/2022 13.0 Platelet Count (k/uL) Date Value 10/07/2022 230 MPV (fL) Date Value 10/07/2022 8.9 (L) Glucose (mg/dL) Date Value 10/07/2022 85 BUN (mg/dL) Date Value 10/07/2022 16 Creatinine (mg/dL) Date Value 10/07/2022 1.12 Sodium (mmol/L) Date Value 10/07/2022 138 Potassium (mmol/L) Date Value 10/07/2022 4.4 Chloride (mmol/L) Date Value 10/07/2022 102 CO2 (mmol/L) Date Value 10/07/2022 24 Protein, Total (g/dL) Date Value 10/07/2022 7.5 Albumin (g/dL) Date Value 10/07/2022 4.1 Calcium, Total (mg/dL) Date Value 10/07/2022 9.6 Alkaline Phosphatase (U/L) Date Value 10/07/2022 87 Bilirubin, Total (mg/dL) Date Value 10/07/2022 0.3 AST (U/L) Date Value 10/07/2022 18 ALT (U/L) Date Value 10/07/2022 11 DIAGNOSIS: (C34.90) Malignant neoplasm of unspecified part of unspecified bronchus or lung (HCC) (primary encounter diagnosis) Plan: CBC + DIFF, COMP METABOLIC PANEL PAST MEDICAL HISTORY Diagnosis Date CAD (coronary artery disease) CHD (coronary heart disease) Chest pain, cardiac COPD (chronic obstructive pulmonary disease) (HCC) Depression Diabetes (HCC) Heart problem HTN (hypertension) Hyperlipidemia Insomnia Lung mass 01/[address] Etienne Lung trouble Tobacco user PAST SURGICAL HISTORY Procedure Laterality Date CABG (1) VEIN GRAFT & ARTERIAL GRAFT COLONOSCOPY SCREENING LOBECTOMY, SEGMENT PAST SURGICAL HISTORY OF plate in head Social History Tobacco Use Smoking status: Every Day Packs/day: 1.00 Years: 48.00 Pack years: 48.00 Types: Cigarettes Passive exposure: Current Smokeless tobacco: Never Vaping Use Vaping Use: Never used Substance Use Topics Alcohol use: Not Currently Drug use: Never FAMILY HISTORY Problem Relation Age of Onset Diabetes Mother Hypertension Mother Heart disease Mother Hypertension Father Cancer Father Heart disease Father Hypertension Sister Heart disease Sister Diabetes Sister Cancer Sister I spent a total of 30 minutes on the date of the service which included preparing to see the patient, boic-ad-epzy patient care, completing clinical documentation, performing a medically appropriate examination, counseling and educating the patient/family/caregiver, ordering medications, tests, or p rocedures, communicating with other HCPs (not separately reported), independently interpreting results (not separately reported), and communicating results to the patient/family/caregiver. Jaya Bai MD, CPE Services Provided at: [place], [place] & [place], [place] CC: Shaikh Lowell [address] [facility] [address] Maliha Lentz, DO [address] [place] [address] Krzysztof Queen documented in this encounterL[facility] NoteHNO ID: [id number] Author: Charla Godfrey RT(R) Service: ? Author Type: Technologist Type: Progress Notes Filed: 09/30/2022 12:54 PM Note Text: RADIOLOGY SERVICE PROGRESS NOTE SERVICE DATE: 09/30/2022 SERVICE TIME: 12:53 PM PATIENT IDENTITY VERIFICATION COMPLETED USING TWO (2) STANDARD IDENTIFIERS: Name and Date of confirmed by patient verbally POST EXAM PIV STATUS: Discontinued PROCEDURE TYPE: NM INJECT: PET/CT BODY SCAN. 10.8 mCi F18 FDG. No other medications given.. ADMINISTRATION TIME: 1225 PATIENT DISCHARGED TO: Ambulatory patient, left [place] department area. A Diagnostic radioactive procedure has taken place, with no further precautions necessary other than routine body substance precautions. More information regarding radiation safety can be found using this link: [email or web address] SIGNATURE: RT Darius(R) PATIENT NAME: Alessio Burns DATE: September 30, 2022 TIME: 12:53 PM PAGER/CONTACT #:[facility]01-27-2023 NoteHNO ID: [id number] Author: Cinthya Dickens RN Service: ? Author Type: Registered Nurse Type: Progress Notes Filed: 09/30/2022 12:16 PM Note Text: Radiology Service Progress Note DATE OF SERVICE: September 30, 2022 TIME: 12:15 PM PATIENT WEIGHT: 185 LBS PATIENT IDENTITY VERIFICATION COMPLETED USING TWO (2) STANDARD IDENTIFIERS: Name and Date of confirmed by patient verbally. FALL SCREENING: Has the patient had 2 falls in the last year or 1 fall with injury or currently using an Ambulatory Assistive Device (Walker, Cane, Wheelchair, Crutches, etc.)? No PATIENT GENDER DATA: Male ALLERGIES: Reviewed and unchanged EXAM: CT -CONTRAST INDUCED NEPHROPATHY RISK FACTORS: Not applicable CREATININE: Creatinine Date Value Ref Range Status 09/15/2022 1.07 0.73 - 1.22 mg/dL Final 07/14/2022 0.99 0.73 - 1.22 mg/dL Final 03/31/2022 1.02 0.73 - 1.22 mg/dL Final Estimated Glomerular Filtration Rate Date Value Ref Range Status 09/15/2022 74 >=60 mL/min/1.73m? Final Comment: Estimated Glomerular Filtration Rate (eGFR) is calculated using the 2020 CKD-EPI creatinine equation. This equation utilizes serum creatinine, sex, and age as parameters. The creatinine assay has traceable calibration to isotope dilution-mass spectrometry. Refer to KDIGO guidelines for clinical interpretation. In patients with unstable renal function, e.g. those with acute kidney injury, the eGFR may not accurately reflect actual GFR. eGFR- Date Value Ref Range Status 10/22/2021 >60 Final P.O.C.T. RESULTS: POC done: Yes, See Lab Tab September 30, 2022 TREATMENT: N/A IV SITE: Ambulatory: A peripheral IV was started in the Right antecubital site with a Angio cath: 22 gauge. IV SITE APPEARANCE: Clean,Dry and Intact SIGNATURE: Cinthya Dickens RN PATIENT NAME: Alessio Burns DATE: September 30, 2022 TIME: 12:15 [facility]01-16-2023 Miscellaneous Notes* Telephone Encounter - Jony Spencer RN - 09/19/2022 10:42 AM EST Handled in another encounter. Jony Spencer RN * Telephone Encounter - Jony Spencer RN - 09/19/2022 10:38 AM EST Images from the original note were not included. MD Jony Prabhakar RN; P [facility] Clerical Pool Mario Alberto Hutchinson - can you please call him and tell him that the multiple lesions in his lungs are too small to biopsy by bronchoscopy or by CT guidance, so we will get a baseline PET/CT soon and continue CTscans - next one in 8 weeks documented in this encounterLake [facility] Miscellaneous Notes* Telephone Encounter - Ania Crump - 09/19/2022 9:48 AM EST Patient has been scheduled for 09/30. Patient has been notified. Ania Crump * Telephone Encounter - Charla Flor RN - 09/19/2022 8:06 AM EST Clerical: PET orders placed. Please schedule. Thanks! Charla Flor RN * Telephone Encounter - Jaya Bai MD - 09/16/2022 5:18 PM EST Thanks Riley - I had a feeling that was the case - I'll get a PET as some of his nodules have grown to over 8 mm now - I'll get the PET and then figure out the path forward. Always appreciate your help! * Telephone Encounter - Ania Crump - 09/16/2022 9:10 AM EST Images from the original note were not included. Luis Antonio Carter MD You; Jaya Bai MD; Loan Sanchez 11 hours ago (9:45 PM) Jaya, I'd be happy to see this patient, however I reviewed the CT and the nodules are too small marnie accessed by bronchoscopy (or CT-guided TTNA either). I think this is either a surgical biopsy, or you repeat the CT in a few months and if there's growth we can figure something out. Let me know how you'd like to proceed. Riley Carter * Telephone Encounter - Ania rCump - 09/15/2022 3:00 PM EST CONSULT TO PULMONARY MEDICINE Per Dr. Bai: Persisting and numerous pulmonary nodules with history of lung cancer prior right lobectomy - have order PET but will likely need tissue sampling regadless. Thanks Team! Ania Crump documented in this encounterLake County [facility]01-13-2023 Miscellaneous Notes* Telephone Encounter - Ania Crump - 09/16/2022 9:15 AM EST Patient has been scheduled for PET scan on 09/30. Patient notified. Ania Crump * Telephone Encounter - Charla Flor RN - 09/16/2022 9:08 AM EST Pt notified and verbalizes understanding. Agrees to PET scan. Clerical: Please schedule and call pt w/ the appointment. Charla Flor RN * Telephone Encounter - Jaya Bai MD - 09/15/2022 5:41 PM EST Ultimately we need tissue But PET will be very helpful regardless - it was only on hold because today's CT scan wasn't read -it shows some lesions have decreased but several have increased. Final read came back just now. Please schedule PET/CT also - this will help guide areas to place bronchoscopic biopsy. * Telephone Encounter - Ania Crump - 09/15/2022 5:03 PM EST PET/CT in the next 2 weeks Patient thought it was decided this was being put on hold for now. Did you still want patient scheduled for PET? Ania Crump documented in this encounterLake [facility]01-12-2023 NoteHNO ID: [id number] Author: Jaya Bai MD Service: ? Author Type: Physician Type: Progress Notes Filed: 09/19/2022 8:41 AM Note Text: NAME: Alessio Burns [facility] NO.: [id number] DATE OF SERVICE: September 15, 2022 (Zac) Some elements in this clinic note that are critical to medical decision making have been carefully reviewed and included from a prior clinic note dated: July 21, 2022 (Zac) Referring Provider: Dr. 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 He actually presented with an acute myocardial infarction and had to undergo CABG and aortic valve repair emergently in June 08, 2020. Subsequent work-up demonstrated malignancy with no evidence of metastatic disease and he underwent resection in July 2020 after he had recovered from his cardiac surgery. He was not a candidate for adjuvant therapy given his almost 6-month gap between resection and presentation to hi. He remains at high risk because of tobacco use. Restaging is non-specific for recurrence of lung cancer but short interval CT's found a new liver lesion which then persisted through December 2021. He saw Dr. Mota for resection 01/10/2022 - benign findings of ciliated foregut cyst. Colonoscopy. Done for + Cologuard was negative. Dyspnea wheezing - uses a nebulizer but is still smoking. New bilateral lung nodules - could be infectious / inflammatory however have continued to grow on serial CT scans. While these are highly suspicious, I suspect that there 2 small to attempt biopsy which have confirmed with Dr. Carter. Will obtain PET scanning and then continue serial CT evaluation. Will consider thoracic surgery referral for biopsy as suspicion increases. PLAN: PET/CT in the next 2 weeks Call Results after. Refer to Pulmonary for bronch and biopsy - prefer [facility] - discussion with Dr. Carter - will continue serial observation - lesions are too small for bronch or CT bx. Will likely need surgical biopsy if indicated. RE-peat CT chest with Abdomen pelvis in 8 weeks with labs and RTC to review. HPI: Updated Visit, September 15, 2022: Reviewed Repeat CT results with him - images and personal interpretation prior to official read indicate enlarging nodules. Discussion with Dr. Carter to consider biopsy vs. Continued observation yielded a decision to continue observation. I will get a baseline PET/CT. He is here with his son Bari. Updated Visit, July 21, 2022: Sister Maria Teresa with him today 07/14/2022 CT Chest - development of innumerable pulmonary nodules - infectous / inflammatory vs neoplastic. All below PET range (7mm and less). He is at his baseline state of health. Labs unremarkable. Updated Visit, March 31, 2022: Bari son is with him today. He still smokes. Reviewed images with him personally. Scan results pending but preliminarily appear without concerning lesion and with left apical emphysema Updated Visit, March 02, 2022: Telephone only for 5 mins Called Alessio as requested. Reviewed findings of liver resection in 01/2022. Still complains of dyspnea but is still smoking. Will repeat CT chest in 3 - 4 weeks and have him return to review. He is in agreement. His sister Maria Teresa was on the phone as well. Updated Visit, December 17, 2021: Telephone only for 8 minutes Called as requested to discuss findings on liver CT showing subcapsular liver lesion that remains suspicious. disussed biopsy with him and he is agreeable. Updated Visit, October 29, 2021: Got COVID in September and was fairly sick - still has night sweats. Recovering but still has poor appetitie. His scans demonstrate a small liver lesion and multple mesenteric lymphnodes. I will follow these given the recent COVID infection. His sister Purvi is with him today. Updated Visit, June 25, 2021: Alessio Burns returns for follow up. There has been no significant medical changes since his last visit. He has a chronic cough and shortness of breath. He continues to smoke. He denies any unusual pain. He had a few episodes of sharp abdominal pain for the last 2 weeks. He states that the pain is on his right side just below his liver. The patient states that he does not consume alcohol. He has occasional constipation. He also states that sometimes urinating is difficult. Overall, he is doing fairly well. He states that his son is concerned about him and wants him to take the best care of himself that he can. 04/22/2021 [place] [place] [facility] to [facility] 06/04/2021 Updated Visit, February 05, 2021: Doing well overall but still smokes. We reviewed his CT scans from 02/01/2021 which shows no evidence of recurrent diseaes but will need follow (more content not included)...[facility]01-12-[facility] Note HNO ID: [id number] Author: RT Darius(R) Service: ? Author Type: Technologist Type: Progress Notes Filed: 09/15/2022 1:35 PM Note Text: Radiology Service Progress Note PATIENT NAME: Alessio Burns DATE OF SERVICE: September 15, 2022 TIME: 1:35 PM PATIENT IDENTITY VERIFICATION COMPLETED USING TWO (2) IDENTIFIERS: Name and Date of confirmed by patient verbally. FALL SCREENING: Has the patient had 2 falls in the last year or 1 fall with injury or currently using an Ambulatory Assistive Device (Walker, Cane, Wheelchair, Crutches, etc.)? No PATIENT GENDER DATA: Male PATIENT RELEVANT IMPLANT DATA REVIEWED: Not Applicable RADIOLOGY DEPARTMENT: CT; Exam(s) Completed: Chest PERIPHERAL IV DATA: Site assessment: Clean,Dry and Intact, Site disposition Discontinued SIGNED BY: RT Darius(R) September 15, 2022 1:35 [facility]01-12-2023 NoteHNO ID: [id number] Author: Cinthya Dickens RN Service: ? Author Type: Registered Nurse Type: Progress Notes Filed: 09/15/2022 1:35 PM Note Text: Radiology Service Progress Note DATE OF SERVICE: September 15, 2022 TIME: 1:34 PM PATIENT WEIGHT: 190 LBS PATIENT IDENTITY VERIFICATION COMPLETED USING TWO (2) STANDARD IDENTIFIERS: Name and Date of confirmed by patient verbally. FALL SCREENING: Has the patient had 2 falls in the last year or 1 fall with injury or currently using an Ambulatory Assistive Device (Walker, Cane, Wheelchair, Crutches, etc.)? No PATIENT GENDER DATA: Male ALLERGIES: Reviewed and unchanged CONTRAST ALLERGY: No EXAM: CT -CONTRAST INDUCED NEPHROPATHY RISK FACTORS: Patient age > 60 years, History of Kidney surgery, Kidney neoplasm, Liver disease, and/or any recent Nephrotoxic Chemotherapy or other Nephrotoxic medications, Dehydration, and Congestive Heart Failure (CHF) CREATININE: Creatinine Date Value Ref Range Status 09/15/2022 1.07 0.73 - 1.22 mg/dL Final 07/14/2022 0.99 0.73 - 1.22 mg/dL Final 03/31/2022 1.02 0.73 - 1.22 mg/dL Final Estimated Glomerular Filtration Rate Date Value Ref Range Status 09/15/2022 74 >=60 mL/min/1.73m? Final Comment: Estimated Glomerular Filtration Rate (eGFR) is calculated using the 2020 CKD-EPI creatinine equation. This equation utilizes serum creatinine, sex, and age as parameters. The creatinine assay has traceable calibration to isotope dilution-mass spectrometry. Refer to KDIGO guidelines for clinical interpretation. In patients with unstable renal function, e.g. those with acute kidney injury, the eGFR may not accurately reflect actual GFR. eGFR- Date Value Ref Range Status 10/22/2021 >60 Final P.O.C.T. RESULTS: POC done: Yes, See Lab Tab September 15, 2022 TREATMENT: No Hydration needed. IV SITE: Ambulatory: A peripheral IV was started in the Right antecubital site with a Angio cath: 20 gauge. IV SITE APPEARANCE: Clean,Dry and Intact SIGNATURE: Cinthya Dickens RN PATIENT NAME: Alessio Burns DATE: September 15, 2022 TIME: 1:34 [facility]11-17-2022 Instructions* Patient Instructions* Jaya Bai MD - 07/21/2022 2:[address] chest in 8 weeks Labs same day RTC same day after scan documented in this encounterLake [facility]11-17-[facility]22 History of Present illness Narrative* Jaya Bai MD - 07/21/2022 1:45 PM EST Images from the original note were not included. NAME: Alessio Burns [facility] NO.: [id number] DATE OF SERVICE: July 21, 2022 [facility] Some elements in this clinic note that are critical to medical decision making have been carefully reviewed and included from a prior clinic note dated: March 31, 2022 (Zac) Referring Provider: Dr. 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 He actually presented with an acute myocardial infarction and had to undergo CABG and aortic valve repair emergently in June 08, 2020. Subsequent work-up demonstrated malignancy with no evidence of metastatic disease and he underwent resection in July 2020 after he had recovered from his cardiac surgery. He was not a candidate for adjuvant therapy given his almost 6-month gap between resection and presentation to hi. He remains at high risk because of tobacco use. Restaging is non-specific for recurrence of lung cancer but short interval CT's found a new liver lesion which then persisted through December 2021. He saw Dr. Mota for resection 01/10/2022 - benign findings of ciliated foregut cyst. Colonoscopy. Done for + Cologuard was negative. Dyspnea wheezing - uses a nebulizer but is still smoking. New bilateral lung nodules - could be infectious / inflammatory. PLAN: CT chest in 8 weeks Labs same day RTC same day after scan HPI: Updated Visit, July 21, 2022: Sister Maria Teresa with him today 07/14/2022 CT Chest - development of innumerable pulmonary nodules - infectous / inflammatory vs neoplastic. All below PET range (7mm and less). He is at his baseline state of health. Labs unremarkable. Updated Visit, March 31, 2022: Bari son is with him today. He still smokes. Reviewed images with him personally. Scan results pending but preliminarily appear without concerning lesion and with left apical emphysema Updated Visit, March 02, 2022: Telephone only for 5 mins Called Alessio as requested. Reviewed findings of liver resection in 01/2022. Still complains of dyspnea but is still smoking. Will repeat CT chest in 3 - 4 weeks and have him return to review. He is in agreement. His sister Maria Teresa was on the phone as well. Updated Visit, December 17, 2021: Telephone only for 8 minutes Called as requested to discuss findings on liver CT showing subcapsular liver lesion that remains suspicious. disussed biopsy with him and he is agreeable. Updated Visit, October 29, 2021: Got COVID in September and was fairly sick - still has night sweats. Recovering but still has poor appetitie. His scans demonstrate a small liver lesion and multple mesenteric lymphnodes. I will followthese given the recent COVID infection. His sister Purvi is with him today. Updated Visit, June 25, 2021: Alessio Burns returns for follow up. There has been no significant medical changes since his lastvisit. He has a chronic cough and shortness of breath. He continues to smoke. He denies any unusualpain. He had a few episodes of sharp abdominal pain for the last 2 weeks. He states that the pain is on his right side just below his liver. The patient states that he does not consume alcohol. He has occasional constipation. He also states that sometimes urinating is difficult. Overall, he is doing fairly well. He states that his son is concerned about him and wants him to take the best care of himself that he can. 04/22/2021 [place] [place] [facility] scanned to [facility] 06/04/2021 Updated Visit, February 05, 2021: Doing well overall but still smokes. We reviewed his CT scans from 02/01/2021 which shows no evidence of recurrent diseaes but will need follow up for bilateral small pulmonary nodules. Initial Visit, January 13, 2021: Alessio Burns presents today for Hematology and Oncology evaluation accompanied by his Sister Maria Teresa. He is a 70 year old male who was found to have a right apical mass consistent with lung cancer during the work-up of an acute myocardial infarction with CHF and fatigue. His current ejection fraction is 40%. He is status post aortic valve repair with CABG in late 2019 (June). During that admission he was found to have a lung mass described above and bronchoscopic biopsy demonstrated sarcomatoid pathology. He was additionally found to have a PET scan demonstrating uptake in the ascending colon and has had a positive Cologuard test. He was additionally found to have a positive Cologuard and will need direct visualization with colonoscopy. Case history: May 2020: 3 cm spiculated nodule right upper lobe status post biopsy 07/21/2020 with interventional radiology. Preceding Nichole needle biopsy was negative for malignancy. PET scan June 03, 2020 showed uptake in a 3 cm right apical mass and no other disease. 07/21/2020 CT-guided core biopsy right lung: High-grade malignancy with necrosis see comment. Malignant cells stain positive for lane cytokeratin focal and p63 weak focal. Negative for neuroendocrine markers. Negative for melanoma markers. Differential diagnosis include sarcomatoid carcinoma and high-grade sarcoma among others. Additional stains pending. The patient then underwent right upper lobectomy September 24, 2020. 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 Lymphovascular invasion present. Tumor is 1 mm from inked parietal pleura. Resection margins uninvolved by invasive carcinoma. 4 lymph nodes negative for metastatic carcinoma. Pathologic staging pT2a, pN0. Lymph nodes consisted of level 8 lymph nodes excisional. Level 10, level 7 and level 11. There was lipidic spread noted. RADIOGRAPHIC DATA: Reviewed December 17, 2021 12/10/2021 CT Liver/Pelvis: 1. Since 10/22/2021, unchanged 1.1 cm hypodense subcapsular hepatic mass, which remains suspicious for a metastasis. 2. Decrease in size of previously noted mildly enlarged lymph nodes. No progressive lymphadenopathy. 3. Circumferential urinary bladder wall thickening, likely secondary to chronic outlet obstruction. 10/22/2021 CT CAP Chest 1. Newly apparent patchy bilateral groundglass opacities, left greater than right, likely infectious/inflammatory in nature. Correlation with continued follow-up examinations is recommended. 2. Bilateral less than 4 mm pulmonary nodules, stable. 3. Several subcentimeter mediastinal lymph nodes, mild soft tissue prominence at the santy bilaterally, stable. 4. Borderline aneurysmal enlargement of the ascending and mild dilation of the descending thoracic aorta, stable. Abd/Pelvis: 1. Interval development of an approximate 1.1 cm, indeterminate hepatic lesion. The possibility of newly apparent metastases cannot be excluded. 2. Newly apparent retroperitoneal and central mesenteric lymphadenopathy, as above. Correlation with continued follow-up examinations is recommended. 06/07/2021 CT Chest: IMPRESSION: 1. Interval resolution of previously noted right lower lobe nodular opacity. 2. Other residual subcentimeter nodular opacities measuring less than 5 mm, stable since 01/27/2021. 3. Subtle reticulonodular opacities in the left upper lung field most likely related to respiratory bronchiolitis or other infectious/inflammatory etiologies, stable. 4. Increased mild mucous plugging. 06/07/2021 CT abdomen and pelvis IMPRESSION: 1. No evidence of intra-abdominal/intrapelvic metastases. No interval change since 01/27/2021. 2. Fat-containing right inguinal hernia. 02/01/2021 CT Chest: 1. Postsurgical changes in keeping with right upper lobe lobectomy. 2. Bilateral nodular opacities measuring up to 5 mm in size, nonspecific. Recommend continued follow-up. 3. Previously visualized left pleural effusion has resolved. 4. No evidence of bulky intrathoracic lymphadenopathy. 5. Ectasia of ascending thoracic aorta measuring up to 4.8 cm in diameter. PATHOLOGIC PROFILE: Reviewed March 02, 2022 1. 01/10/2022 Partial liver resection: [id number] Order: [id number] Collected 01/10/2022 11:56 AM Status: Final result Visible to patient: No (inaccessible in MyChart) Dx: Liver mass 1 Result Note Component FINAL DIAGNOSIS A. Liver, partial resection: - Ciliated foregut cyst. - Parenchymal margin is not involved. - Hepatic parenchyma with mild portal inflammation. AEB/tg 01/13/2022 Diagnosis Comment We note the clinical history of a cystic liver mass. The lesion consists of a cyst lined by ciliated pseudostratified columnar epithelium with goblet cells consistent with a foregut cyst. Dysplasia is not identified. The adjacent liver parenchyma shows overall preservation of the hepatic architecture. Mild portal inflammation without interface hepatitis is identified. The interlobular bile ducts are intact. Macrovesicular steatosis is inconspicuous. No significant lobular inflammation is noted. Iron stain is neg ative for iron deposits. A trichrome stain shows no significant evidence of fibrosis. Gross Description A. LIVER PARTIAL RESECTION. Received in formalin labeled as liver mass is a wedge of liver parenchyma measuring 3.0 x 2.3 x 1.0 cm and weighing 2 g. The capsule shows cautery artifact and is inked black. The resection margin is inked orange. Sectioning reveals a smooth empty cyst measuring 1.1 x 0.8 x 0.5 cm. The the cyst extends within 1 mm of the capsule and abuts the parenchymal resection margin. The specimen is entirely submitted in formalin as follows: A1-A2 cyst in relationship to resection margin, A3-A4 remainderof specimen. Gross examination performed at [facility], [address] [place], [place] [id number] CLIA# [id number] [facility] January 12, 2022 9:23 AM REVIEW OF SYSTEMS Per HPI and otherwise negative by full review of organ systems. ECOG PERFORMANCE STATUS: 1 PHYSICAL EXAMINATION: Vitals: BP 143/66 Pulse 57 Temp (Src) 97.1 (Temporal) Resp 16 Ht 5' 6 (1.68m) Wt 191 lb 9.6 oz (86.9kg) SpO2 96% BMI 30.94 kg/(m^2). Body surface area is 2.01 meters squared. Exam limited to gross visualization where appropriate due to COVID-19. Gen.: This is an age-appropriate patient in no acute distress. Head: Appears atraumatic with no visible lesions. Eyes: Pupils equally round and reactive to light, extraocular muscles are intact. Neck: Supple. Mouth: Mucous membranes appeared to be moist. Respiratory: Appears to be respiring comfortably. Neurologic: Nonfocal to gross visualization. Alert and oriented 3. Psychiatric: No evidence of inappropriate anxiety or depression. Skin: Visible areas of skin without rash, lesions, wounds or petechiae. ALLERGIES: ALLERGIES No Known Allergies MEDICATIONS: penicillin V potassium (V-CILLIN, VEETIDS) 500 mg tablet Take 500 mg by mouth four times daily. oxyCODONE-acetaminophen (PERCOCET) 5-325 mg tablet TAKE 1 TABLET BY MOUTH EVERY 12 HOURS NEEDED FOR PAIN traZODone (DESYREL) 100 mg tablet Take 100 mg by mouth once daily. potassium chloride ER (K-DUR, KLOR-CON) 20 mEq tablet Take 20 mEq by mouth once daily. levoFLOXacin (LEVAQUIN) 750 mg tablet Take 750 mg by mouth once daily. predniSONE (DELTASONE) 20 mg tablet Take 40 mg by mouth daily with food. amLODIPine (NORVASC) 10 mg tablet Take 10 mg by mouth once daily. Nebulizer and Compressor For Neb 1 Each three times daily as needed. Albuterol Sulfate 1.25 mg/3 mL nebulizer solution Use 1 Ampule via nebulizer every 6 hours as needed for wheezing/shortness of breath. sildenafil (VIAGRA) 25 mg tablet sildenafil 25 mg tablet TAKE 1 TABLET BY MOUTH 30 MINUTES BEFORE sexual activity busPIRone (BUSPAR) 15 mg tablet Take 15 mg by mouth three times daily. budesonide-formoterol (SYMBICORT) 160-4.5 mcg/actuation inhaler Symbicort 160 mcg-4.5 mcg/actuationHFA aerosol inhaler INHALE 2 PUFFS BY MOUTH TWICE DAILY albuterol HFA (PROVENTIL HFA, VENTOLIN HFA) 90 mcg/actuation inhaler albuterol sulfate HFA 90 mcg/actuation aerosol inhaler INHALE 2 PUFFS BY MOUTH EVERY 4 TO 6 HOURS NEEDED for shortness of breath and FOR WHEEZING aspirin, enteric coated (ASPIRIN, ENTERIC COATED) 81 mg EC tablet q 24 HR. atorvastatin (LIPITOR) 40 mg tablet atorvastatin 40 mg tablet TAKE 1 TABLET BY MOUTH AT BEDTIME clopidogrel (PLAVIX) 75 mg tablet clopidogrel 75 mg tablet TAKE 1 TABLET BY MOUTH ONCE DAILY furosemide (LASIX) 40 mg tablet furosemide 40 mg tablet TAKE 1 TABLET BY MOUTH DAILY metoprolol succinate ER (TOPROL XL) 50 mg 24 hr tablet metoprolol succinate ER 50 mg tablet,extended release 24 hr TAKE 1 TABLET BY MOUTH EVERY DAY nitroglycerin sublingual (NITROQUICK) 0.4 mg SL tablet nitroglycerin 0.4 mg sublingual tablet DISSOLVE 1 TABLET UNDER THE TONGUE NEEDED FOR CHEST PAIN- MAY REPEAT EVERY 5 MINUTES IF NEEDED (MAX 3 DOSES.- IF NO RELIEF CALL 911) sacubitril-valsartan (ENTRESTO) 97-103 mg tablet Entresto 97 mg-103 mg tablet TAKE 1 TABLET BY MOUTH TWICE DAILY LABORATORY VALUES: WBC (k/uL) Date Value 07/14/2022 10.07 RBC (m/uL) Date Value 07/14/2022 4.20 Hemoglobin (g/dL) Date Value 07/14/2022 12.9 (L) Hematocrit (%) Date Value 07/14/2022 39.1 MCV (fL) Date Value 07/14/2022 93.1 MCH (pg) Date Value 07/14/2022 30.7 MCHC (g/dL) Date Value 07/14/2022 33.0 RDW-CV (%) Date Value 07/14/2022 13.2 Platelet Count (k/uL) Date Value 07/14/2022 261 MPV (fL) Date Value 07/14/2022 8.9 (L) Glucose (mg/dL) Date Value 07/14/2022 98 BUN (mg/dL) Date Value 07/14/2022 16 Creatinine (mg/dL) Date Value 07/14/2022 0.99 Sodium (mmol/L) Date Value 07/14/2022 137 Potassium (mmol/L) Date Value 07/14/2022 4.4 Chloride (mmol/L) Date Value 07/14/2022 106 (H) CO2 (mmol/L) Date Value 07/14/2022 25 Protein, Total (g/dL) Date Value 07/14/2022 7.1 Albumin (g/dL) Date Value 07/14/2022 4.1 Calcium, Total (mg/dL) Date Value 07/14/2022 9.0 Alkaline Phosphatase (U/L) Date Value 07/14/2022 91 Bilirubin, Total (mg/dL) Date Value 07/14/2022 0.4 AST (U/L) Date Value 07/14/2022 17 ALT (U/L) Date Value 07/14/2022 9 (L) DIAGNOSIS: (C33, C34.80) Cancer of trachea, bronchus, and lung (HCC) (primary encounter diagnosis) Plan: CT CHEST W IVCON, iv contrast (will be provided with radiology test), CBC + DIFF, COMP METABOLIC PANEL (R91.8) Lung nodules Plan: CT CHEST W IVCON (J43.1) Panlobular emphysema (HCC) PAST MEDICAL HISTORY Diagnosis Date CAD (coronary artery disease) CHD (coronary heart disease) Chest pain, cardiac COPD (chronic obstructive pulmonary disease) (HCC) Depression Diabetes (HCC) Heart problem HTN (hypertension) Hyperlipidemia Insomnia Lung mass 01/[address] Etienne Lung trouble Tobacco user PAST SURGICAL HISTORY Procedure Laterality Date CABG (1) VEIN GRAFT & ARTERIAL GRAFT COLONOSCOPY SCREENING LOBECTOMY, SEGMENT PAST SURGICAL HISTORY OF plate in head Social History Tobacco Use Smoking status: Every Day Packs/day: 1.00 Years: 48.00 Pack years: 48.00 Types: Cigarettes Smokeless tobacco: Never Vaping Use Vaping Use: Never used Substance Use Topics Alcohol use: Not Currently Drug use: Never FAMILY HISTORY Problem Relation Age of Onset Diabetes Mother Hypertension Mother Heart disease Mother Hypertension Father Cancer Father Heart disease Father Hypertension Sister Heart disease Sister Diabetes Sister Cancer Sister I spent a total of 36 minutes on the date of the service which included preparing to see the patient, [id number] patient care, completing clinical documentation, performing a medically appropriate examination, counseling and educating the patient/family/caregiver, ordering medications, tests, or p rocedures, and independently interpreting results (not separately reported). Jaya Bai MD, CPE Services Provided at: [place], [place] & [place], [place] CC: Shaikh Lowell [address] [facility] [id number] Maliha Lentz, DO [address] [address] Krzysztof Queen documented in this encounterLake [facility] NoteSubjective Alessio Burns is a 72 y.o. year old male patient being seen for 4 mo follow up CAD, chronic systolic heart failure, aortic valve stenosis, aneurysm of thoracic aorta, and carotid artery stenosis. Had labs at CT chest in March 2022. Still has chest pain. Says his SOB is a little worse and he sometimes feels his heart racing. Patient Active Problem List Diagnosis Aneurysm of thoracic aorta Aortic valve stenosis Carotid artery stenosis Chronic obstructive lung disease (CMS/HCC) Coronary arteriosclerosis Insomnia Left ventricular thrombus Lung mass Systolic heart failure (CMS/HCC) Chronic diastolic heart failure (CMS/HCC) History of aortic valve replacement with bioprosthetic valve History of coronary artery bypass graft Family History Problem Relation Name Age of Onset Diabetes Mother Heart disease Mother Heart disease Father Coronary artery disease Sister Social History Tobacco Use Smoking status: Every Day Packs/day: 1.00 Types: Cigarettes Smokeless tobacco: Never Substance Use Topics Alcohol use: Yes Comment: occasional Drug use: Never Jose Angel is seen in follow-up. He is a 71-year-old man who has history of coronary artery disease, aortic valve stenosis, systolic heart failure, and left-ventricular thrombus that was not seen on intraoperative AJAY. In June 2020 he underwent cardiac surgery including bypass surgery and aortic valve replacement with a bioprosthetic aortic valve. His ejection fraction improved to 40% post CABG. [Prior history per prior visits: Newly noted decreased EF 30-35%- recovered to 40% post CABG, Multivessel CAD s/p CABG per Dr Lisa, Thoracic aneurysm, LV thrombus, Severe AO stenosis s/p valve replacement, Lung mass and pleural effusion s/p thoracentesis. AJAY during surgery did not show LV thrombus therefore CT surgeon Dr. Lisa discontinued anticoagulation. Pulmonary and oncology were both consulted to evaluate for possible malignancy related to lung mass noted on CT. diagnostic thoracentesis was completed and no malignancy was noted in pathology.] At visit of 07/29/2020 I added Entresto and then increased the dose on the visit of 09/07/2020 and then again on the visit of 11/23/2020. He underwent lobectomy for lung cancer on 09/24/2020 at [facility] with Dr. Lisa. He was admitted to the [facility] in February 2021 with atypical chest pain. He ruled out for myocardial infarction by high-sensitivity troponin. He was admitted on 10/24/2021 to the [facility] with decompensated heart failure and COPD exacerbation. His NT proBNP was elevated and his potassium was low. He underwent diuresis. He was discharged on 10/25/2021. Potassium was added. After last visit of 02/28/2022 I checked an echocardiogram to follow-up on the size of his aortic aneurysm. The echocardiogram showed normal ventricular function and normal function of the aortic valve with the ascending aorta measuring 4.5 cm. Today he reports that he has been having episodes of sharp chest pain located on the left side of the chest lasting few seconds, this is chronic. Has chronic shortness of breath that seem to have worsened. He has no angina. No significant lower extremity swelling. No palpitations. He continues to smoke. Coronary Artery Disease Symptoms include chest pain and palpitations. His past medical history is significant for CHF. Congestive Heart Failure Associated symptoms include chest pain and palpitations. His past medical history is significant for CAD. Review of Systems Cardiovascular: Positive for chest pain, dyspnea on exertion and palpitations. Respiratory: Positive for cough. Musculoskeletal: Positive for back pain and neck pain. Neurological: Positive for light-headedness. All other systems reviewed and are negative. Objective Visit Vitals BP 146/76 (BP Location: Left arm, Patient Position: Sitting) Pulse 58 Ht 1.727 m (5' 8 ) Wt 86.2 kg (190 lb) SpO2 98% BMI 28.89 kg/m??? Smoking Status Every Day BSA 2.03 m??? Physical Exam Constitutional: Appearance: He is well-developed. He is not ill-appearing. HENT: Head: Normocephalic and atraumatic. Nose: Nose normal. Eyes: General: No scleral icterus. Pupils: Pupils are equal, round, and reactive to light. Neck: Thyroid: No thyromegaly. Vascular: No JVD. Cardiovascular: Rate and Rhythm: Normal rate and regular rhythm. Heart sounds: Normal heart sounds. No murmur heard. No friction rub. No gallop. Pulmonary: Effort: Pulmonary effort is normal. No respiratory distress. Breath sounds: Normal breath sounds. No wheezing or rales. Chest: Chest wall: No tenderness. Abdominal: General: Bowel sounds are normal. There is no distension. Palpations: Abdomen is soft. Tenderness: There is no abdominal tenderness. Musculoskeletal: General: No swelling. Cervical back: Neck supple. Skin: General: Skin is warm and dry. Neurological: G (more content not included)...[facility]08-01-2022 Miscellaneous Notes* Telephone Encounter - Jony Spencer RN - 04/04/2022 12:11 PM EDT Informed pt of Dr Fam's message. Pt verbalized understanding and denies further needs at this time. Jony Spencer RN * Telephone Encounter - Jaya Bai MD - 04/02/2022 4:04 PM EDT Overall scan looks good but he has a small new spot that will need to be followed (in the lung) - probably is nothing to worry about. * Telephone Encounter - Jony Spencer RN - 04/01/2022 3:36 PM EDT Received call from pt requesting CT results. DARLEEN: Please review and advise. Any message for pt regarding results. Jony Spencer RN documented in this encounterLake County [facility]07-28-2022 History of Present illness Narrative* Jaya Bai MD - 03/31/2022 1:30 PM EDT Images from the original note were not included. NAME: Alessio Burns [facility] NO.: [id number] DATE OF SERVICE: March 31, 2022 Some elements in this clinic note that are critical to medical decision making have been carefully reviewed and included from a prior clinic note dated: March 02, 2022, & October 29, 2021 Referring Provider: Dr. 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 He actually presented with an acute myocardial infarction and had to undergo CABG and aortic valve repair emergently [id number]. Subsequent work-up demonstrated malignancy with no evidence of metastatic disease and he underwent resection in July 2020 after he had recovered from his cardiac surgery. He is now following up for ongoing surveillance versus adjuvant therapy. Is unlikely that he will be a candidate for adjuvant therapy given his almost 6-month gap between resection and presentation to me. Heremains at high risk because of tobacco use. Restaging is non-specific for recurrence of lung cancer but short interval CT's found a new liver lesion which then persisted through December 2021. He saw Dr. Mota for resection 01/10/2022 - benign findings of ciliated foregut cyst. Colonoscopy. Done for + Cologuard was negative. Dyspnea wheezing - uses a nebulizer but is still smoking. PLAN: 1. Will call results of CT when available 2. Plan on next CT and labs in 4 months 3. RTC after no labs to review HPI: Updated Visit, March 31, 2022: Bari haq is with him today. He still smokes. Reviewed images with him personally. Scan results pending but preliminarily appear without concerning lesion and with left apical emphysema Updated Visit, March 02, 2022: Telephone only for 5 mins Called Alessio as requested. Reviewed findings of liver resection in 01/2022. Still complains of dyspnea but is still smoking. Will repeat CT chest in 3 - 4 weeks and have him return to review. He is in agreement. His sister Maria Teresa was on the phone as well. Updated Visit, December 17, 2021: Telephone only for 8 minutes Called as requested to discuss findings on liver CT showing subcapsular liver lesion that remains suspicious. disussed biopsy with him and he is agreeable. Updated Visit, October 29, 2021: Got COVID in September and was fairly sick - still has night sweats. Recovering but still has poor appetitie. His scans demonstrate a small liver lesion and multple mesenteric lymphnodes. I will followthese given the recent COVID infection. His sister Purvi is with him today. Updated Visit, June 25, 2021: Alessio Burns returns for follow up. There has been no significant medical changes since his lastvisit. He has a chronic cough and shortness of breath. He continues to smoke. He denies any unusualpain. He had a few episodes of sharp abdominal pain for the last 2 weeks. He states that the pain is on his right side just below his liver. The patient states that he does not consume alcohol. He has occasional constipation. He also states that sometimes urinating is difficult. Overall, he is doing fairly well. He states that his son is concerned about him and wants him to take the best care of himself that he can. 04/22/2021 [place] [place] scanned to [facility] 06/04/2021 Updated Visit, February 05, 2021: Doing well overall but still smokes. We reviewed his CT scans from 02/01/2021 which shows no evidence of recurrent diseaes but will need follow up for bilateral small pulmonary nodules. Initial Visit, January 13, 2021: Alessio Burns presents today for Hematology and Oncology evaluation accompanied by his Sister Maria Teresa. He is a 70 year old male who was found to have a right apical mass consistent with lung cancer during the work-up of an acute myocardial infarction with CHF and fatigue. His current ejection fraction is 40%. He is status post aortic valve repair with CABG in late 2019 (June). During that admission he was found to have a lung mass described above and bronchoscopic biopsy demonstrated sarcomatoid pathology. He was additionally found to have a PET scan demonstrating uptake in the ascending colon and has had a positive Cologuard test. He was additionally found to have a positive Cologuard and will need direct visualization with colonoscopy. Case history: May 2020: 3 cm spiculated nodule right upper lobe status post biopsy 07/21/2020 with interventional radiology. Preceding Nichole needle biopsy was negative for malignancy. PET scan June 03, 2020 showed uptake in a 3 cm right apical mass and no other disease. 07/21/2020 CT-guided core biopsy right lung: High-grade malignancy with necrosis see comment. Malignant cells stain positive for lane cytokeratin focal and p63 weak focal. Negative for neuroendocrine markers. Negative for melanoma markers. Differential diagnosis include sarcomatoid carcinoma and high-grade sarcoma among others. Additional stains pending. The patient then underwent right upper lobectomy September 24, 2020. 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 Lymphovascular invasion present. Tumor is 1 mm from inked parietal pleura. Resection margins uninvolved by invasive carcinoma. 4 lymph nodes negative for metastatic carcinoma. Pathologic staging pT2a, pN0. Lymph nodes consisted of level 8 lymph nodes excisional. Level 10, level 7 and level 11. There was lipidic spread noted. RADIOGRAPHIC DATA: Reviewed December 17, 2021 12/10/2021 CT Liver/Pelvis: 1. Since 10/22/2021, unchanged 1.1 cm hypodense subcapsular hepatic mass, which remains suspicious for a metastasis. 2. Decrease in size of previously noted mildly enlarged lymph nodes. No progressive lymphadenopathy. 3. Circumferential urinary bladder wall thickening, likely secondary to chronic outlet obstruction. 10/22/2021 CT CAP Chest 1. Newly apparent patchy bilateral groundglass opacities, left greater than right, likely infectious/inflammatory in nature. Correlation with continued follow-up examinations is recommended. 2. Bilateral less than 4 mm pulmonary nodules, stable. 3. Several subcentimeter mediastinal lymph nodes, mild soft tissue prominence at the santy bilaterally, stable. 4. Borderline aneurysmal enlargement of the ascending and mild dilation of the descending thoracic aorta, stable. Abd/Pelvis: 1. Interval development of an approximate 1.1 cm, indeterminate hepatic lesion. The possibility of newly apparent metastases cannot be excluded. 2. Newly apparent retroperitoneal and central mesenteric lymphadenopathy, as above. Correlation with continued follow-up examinations is recommended. 06/07/2021 CT Chest: IMPRESSION: 1. Interval resolution of previously noted right lower lobe nodular opacity. 2. Other residual subcentimeter nodular opacities measuring less than 5 mm, stable since 01/27/2021. 3. Subtle reticulonodular opacities in the left upper lung field most likely related to respiratory bronchiolitis or other infectious/inflammatory etiologies, stable. 4. Increased mild mucous plugging. 06/07/2021 CT abdomen and pelvis IMPRESSION: 1. No evidence of intra-abdominal/intrapelvic metastases. No interval change since 01/27/2021. 2. Fat-containing right inguinal hernia. 02/01/2021 CT Chest: 1. Postsurgical changes in keeping with right upper lobe lobectomy. 2. Bilateral nodular opacities measuring up to 5 mm in size, nonspecific. Recommend continued follow-up. 3. Previously visualized left pleural effusion has resolved. 4. No evidence of bulky intrathoracic lymphadenopathy. 5. Ectasia of ascending thoracic aorta measuring up to 4.8 cm in diameter. PATHOLOGIC PROFILE: Reviewed March 02, 2022 1. 01/10/2022 Partial liver resection: [id number] Order: [id number] Collected 01/10/2022 11:56 AM Status: Final result Visible to patient: No (inaccessible in MyChart) Dx: Liver mass 1 Result Note Component FINAL DIAGNOSIS A. Liver, partial resection: - Ciliated foregut cyst. - Parenchymal margin is not involved. - Hepatic parenchyma with mild portal inflammation. AEB/tg 01/13/2022 Diagnosis Comment We note the clinical history of a cystic liver mass. The lesion consists of a cyst lined by ciliated pseudostratified columnar epithelium with goblet cells consistent with a foregut cyst. Dysplasia is not identified. The adjacent liver parenchyma shows overall preservation of the hepatic architecture. Mild portal inflammation without interface hepatitis is identified. The interlobular bile ducts are intact. Macrovesicular steatosis is inconspicuous. No significant lobular inflammation is noted. Iron stain is neg ative for iron deposits. A trichrome stain shows no significant evidence of fibrosis. Gross Description A. LIVER PARTIAL RESECTION. Received in formalin labeled as liver mass is a wedge of liver parenchyma measuring 3.0 x 2.3 x 1.0 cm and weighing 2 g. The capsule shows cautery artifact and is inked black. The resection margin is inked orange. Sectioning reveals a smooth empty cyst measuring 1.1 x 0.8 x 0.5 cm. The the cyst extends within 1 mm of the capsule and abuts the parenchymal resection margin. The specimen is entirely submitted in formalin as follows: A1 A2 cyst in relationship to resection margin, A3 A4 remainderof specimen. Gross examination performed at [facility] [address] CLIA# [id number] [facility] January 12, 2022 9:23 AM REVIEW OF SYSTEMS Per HPI and otherwise negative by full review of organ systems. ECOG PERFORMANCE STATUS: 1 PHYSICAL EXAMINATION: Vitals: BP 117/58 Pulse 52 Temp (Src) 97.8 (Temporal) Resp 16 Ht 5' 7.992 (1.73m) Wt 181lb 3.2 oz (82.2kg) SpO2 98% BMI 27.56 kg/(m^2). Body surface area is 1.99 meters squared. Exam limited to gross visualization where appropriate due to COVID-19. Gen.: This is an age-appropriate patient in no acute distress. Head: Appears atraumatic with no visible lesions. Eyes: Pupils equally round and reactive to light, extraocular muscles are intact. Neck: Supple. Mouth: Mucous membranes appeared to be moist. Respiratory: Appears to be respiring comfortably. Neurologic: Nonfocal to gross visualization. Alert and oriented 3. Psychiatric: No evidence of inappropriate anxiety or depression. Skin: Visible areas of skin without rash, lesions, wounds or petechiae. ALLERGIES: ALLERGIES No Known Allergies MEDICATIONS: penicillin V potassium (V-CILLIN, VEETIDS) 500 mg tablet Take 500 mg by mouth four times daily. oxyCODONE-acetaminophen (PERCOCET) 5-325 mg tablet TAKE 1 TABLET BY MOUTH EVERY 12 HOURS NEEDED FOR PAIN traZODone (DESYREL) 100 mg tablet Take 100 mg by mouth once daily. potassium chloride ER (K-DUR, KLOR-CON) 20 mEq tablet Take 20 mEq by mouth once daily. levoFLOXacin (LEVAQUIN) 750 mg tablet Take 750 mg by mouth once daily. predniSONE (DELTASONE) 20 mg tablet Take 40 mg by mouth daily with food. amLODIPine (NORVASC) 10 mg tablet Take 10 mg by mouth once daily. Nebulizer and Compressor For Neb 1 Each three times daily as needed. sildenafil (VIAGRA) 25 mg tablet sildenafil 25 mg tablet TAKE 1 TABLET BY MOUTH 30 MINUTES BEFORE sexual activity busPIRone (BUSPAR) 15 mg tablet Take 15 mg by mouth three times daily. budesonide-formoterol (SYMBICORT) 160-4.5 mcg/actuation inhaler Symbicort 160 mcg-4.5 mcg/actuationHFA aerosol inhaler INHALE 2 PUFFS BY MOUTH TWICE DAILY albuterol HFA (PROVENTIL HFA, VENTOLIN HFA) 90 mcg/actuation inhaler albuterol sulfate HFA 90 mcg/actuation aerosol inhaler INHALE 2 PUFFS BY MOUTH EVERY 4 TO 6 HOURS NEEDED for shortness of breath and FOR WHEEZING aspirin, enteric coated (ASPIRIN, ENTERIC COATED) 81 mg EC tablet q 24 HR. atorvastatin (LIPITOR) 40 mg tablet atorvastatin 40 mg tablet TAKE 1 TABLET BY MOUTH AT BEDTIME clopidogrel (PLAVIX) 75 mg tablet clopidogrel 75 mg tablet TAKE 1 TABLET BY MOUTH ONCE DAILY furosemide (LASIX) 40 mg tablet furosemide 40 mg tablet TAKE 1 TABLET BY MOUTH DAILY metoprolol succinate ER (TOPROL XL) 50 mg 24 hr tablet metoprolol succinate ER 50 mg tablet,extended release 24 hr TAKE 1 TABLET BY MOUTH EVERY DAY nitroglycerin sublingual (NITROQUICK) 0.4 mg SL tablet nitroglycerin 0.4 mg sublingual tablet DISSOLVE 1 TABLET UNDER THE TONGUE NEEDED FOR CHEST PAIN- MAY REPEAT EVERY 5 MINUTES IF NEEDED ( MAX 3DOSES.- IF NO RELIEF CALL 911) sacubitril-valsartan (ENTRESTO) 97-103 mg tablet Entresto 97 mg-103 mg tablet TAKE 1 TABLET BY MOUTH TWICE DAILY Albuterol Sulfate 1.25 mg/3 mL nebulizer solution Use 1 Ampule via nebulizer every 6 hours as needed for wheezing/shortness of breath. LABORATORY VALUES: Hemoglobin (g/dL) Date Value 03/31/2022 12.5 10/22/2021 10.1 Hematocrit (%) Date Value 03/31/2022 38.5 10/22/2021 31.2 WBC (k/uL) Date Value 03/31/2022 11.03 10/22/2021 11.99 Platelet Count (k/uL) Date Value 03/31/2022 242 10/22/2021 484 DIAGNOSIS: (C34.90) Malignant neoplasm of unspecified part of unspecified bronchus or lung (HCC) (primary encounter diagnosis) (C33, C34.80) Cancer of trachea, bronchus, and lung (HCC) (J43.1) Panlobular emphysema (HCC) PAST MEDICAL HISTORY Diagnosis Date CAD (coronary artery disease) CHD (coronary heart disease) Chest pain, cardiac COPD (chronic obstructive pulmonary disease) (HCC) Depression Diabetes (HCC) Heart problem HTN (hypertension) Hyperlipidemia Insomnia Lung mass 01/[address] Etienne Lung trouble Tobacco user PAST SURGICAL HISTORY Procedure Laterality Date CABG (1) VEIN GRAFT & ARTERIAL GRAFT COLONOSCOPY SCREENING LOBECTOMY, SEGMENT PAST SURGICAL HISTORY OF plate in head Social History Tobacco Use Smoking status: Current Every Day Smoker Packs/day: 1.00 Years: 48.00 Pack years: 48.00 Types: Cigarettes Smokeless tobacco: Never Used Vaping Use Vaping Use: Never used Substance Use Topics Alcohol use: Not Currently Drug use: Never FAMILY HISTORY Problem Relation Age of Onset Diabetes Mother Hypertension Mother Heart disease Mother Hypertension Father Cancer Father Heart disease Father Hypertension Sister Heart disease Sister Diabetes Sister Cancer Sister I spent a total of 28 minutes on the date of the service which included preparing to see the patient, [id number] patient care, completing clinical documentation, performing a medically appropriate examination, counseling and educating the patient/family/caregiver and ordering medications, tests, or procedures. Jaya Bai MD, CPE Services Provided at: [place], [place] & [place], [place] CC: Shaikh Lowell [address] [facility] [address] [place] documented [facility] History of Present illness Narrative* Jaya Bai MD - 03/02/2022 5:49 PM EDT Images from the original note were not included. NAME: Alessio Burns [facility] NO.: [id number] DATE OF SERVICE: March 02, 2022 Some elements in this clinic note that are critical to medical decision making have been carefully reviewed and included from a prior clinic note dated: December 17, 2021 Referring Provider: Dr. Shaikh Etienne Additional Clinicians involved in Alessio Burns's care: VIRTUAL VISIT PROGRESS NOTE This is a virtual visit using Telephone only for 5 mins. It required patient- provider interaction for the medical decision making as documented below. 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 He actually presented with an acute myocardial infarction and had to undergo CABG and aortic valve repair emergently inOcto2019. Subsequent work-up demonstrated malignancy with no evidence of metastatic disease andhe underwent resection in July 2020 after he had recovered from his cardiac surgery. He is now following up for ongoing surveillance versus adjuvant therapy. Is unlikely that he will be a candidate for adjuvant therapy given his almost 6-month gap between resection and presentation to hi. He rem ains at high risk because of tobacco use. Restaging is non-specific for recurrence of lung cancer but short interval CT's found a new liver lesion which then persisted through December 2021. He saw Dr. Mota for resection 01/10/2022 - benign findings of ciliated foregut cyst. Colonoscopy. Done for + Cologuard was negative. Dyspnea wheezing - uses a nebulizer but is still smoking. PLAN: CT Chest w/ labs and RTC same day in 4 weeks. HPI: Updated Visit, March 02, 2022: Telephone only for 5 mins Called Alessio as requested. Reviewed findings of liver resection in 01/2022. Still complains of dyspnea but is still smoking. Will repeat CT chest in 3 - 4 weeks and have him return to review. He is in agreement. His sister Maria Teresa was on the phone as well. Updated Visit, December 17, 2021: Telephone only for 8 minutes Called as requested to discuss findings on liver CT showing subcapsular liver lesion that remains suspicious. disussed biopsy with him and he is agreeable. Updated Visit, October 29, 2021: Got COVID in September and was fairly sick - still has night sweats. Recovering but still has poor appetitie. His scans demonstrate a small liver lesion and multple mesenteric lymphnodes. I will followthese given the recent COVID infection. His sister Purvi is with him today. Updated Visit, June 25, 2021: Alessio Burns returns for follow up. There has been no significant medical changes since his lastvisit. He has a chronic cough and shortness of breath. He continues to smoke. He denies any unusualpain. He had a few episodes of sharp abdominal pain for the last 2 weeks. He states that the pain is on his right side just below his liver. The patient states that he does not consume alcohol. He has occasional constipation. He also states that sometimes urinating is difficult. Overall, he is doing fairly well. He states that his son is concerned about him and wants him to take the best care of himself that he can. 04/22/2021 [place]oscopy ([facility] [place] Results scanned to [facility] 06/04/2021 Updated Visit, February 05, 2021: Doing well overall but still smokes. We reviewed his CT scans from 02/01/2021 which shows no evidence of recurrent diseaes but will need follow up for bilateral small pulmonary nodules. Initial Visit, January 13, 2021: Alessio Burns presents today for Hematology and Oncology evaluation accompanied by his Sister Maria Teresa. He is a 70 year old male who was found to have a right apical mass consistent with lung cancer during the work-up of an acute myocardial infarction with CHF and fatigue. His current ejection fraction is 40%. He is status post aortic valve repair with CABG in late 2019 (June). During that admission he was found to have a lung mass described above and bronchoscopic biopsy demonstrated sarcomatoid pathology. He was additionally found to have a PET scan demonstrating uptake in the ascending colon and has had a positive Cologuard test. He was additionally found to have a positive Cologuard and will need direct visualization with colonoscopy. Case history: May 2020: 3 cm spiculated nodule right upper lobe status post biopsy 07/21/2020 with interventional radiology. Preceding Nichole needle biopsy was negative for malignancy. PET scan June 03, 2020 showed uptake in a 3 cm right apical mass and no other disease. 07/21/2020 CT-guided core biopsy right lung: High-grade malignancy with necrosis see comment. Malignant cells stain positive for lane cytokeratin focal and p63 weak focal. Negative for neuroendocrine markers. Negative for melanoma markers. Differential diagnosis include sarcomatoid carcinoma and high-grade sarcoma among others. Additional stains pending. The patient then underwent right upper lobectomy September 24, 2020. 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 Lymphovascular invasion present. Tumor is 1 mm from inked parietal pleura. Resection margins uninvolved by invasive carcinoma. 4 lymph nodes negative for metastatic carcinoma. Pathologic staging pT2a, pN0. Lymph nodes consisted of level 8 lymph nodes excisional. Level 10, level 7 and level 11. There was lipidic spread noted. RADIOGRAPHIC DATA: Reviewed December 17, 2021 12/10/2021 CT Liver/Pelvis: 1. Since 10/22/2021, unchanged 1.1 cm hypodense subcapsular hepatic mass, which remains suspicious for a metastasis. 2. Decrease in size of previously noted mildly enlarged lymph nodes. No progressive lymphadenopathy. 3. Circumferential urinary bladder wall thickening, likely secondary to chronic outlet obstruction. 10/22/2021 CT CAP Chest 1. Newly apparent patchy bilateral groundglass opacities, left greater than right, likely infectious/inflammatory in nature. Correlation with continued follow-up examinations is recommended. 2. Bilateral less than 4 mm pulmonary nodules, stable. 3. Several subcentimeter mediastinal lymph nodes, mild soft tissue prominence at the santy bilaterally, stable. 4. Borderline aneurysmal enlargement of the ascending and mild dilation of the descending thoracic aorta, stable. Abd/Pelvis: 1. Interval development of an approximate 1.1 cm, indeterminate hepatic lesion. The possibility of newly apparent metastases cannot be excluded. 2. Newly apparent retroperitoneal and central mesenteric lymphadenopathy, as above. Correlation with continued follow-up examinations is recommended. 06/07/2021 CT Chest: IMPRESSION: 1. Interval resolution of previously noted right lower lobe nodular opacity. 2. Other residual subcentimeter nodular opacities measuring less than 5 mm, stable since 01/27/2021. 3. Subtle reticulonodular opacities in the left upper lung field most likely related to respiratory bronchiolitis or other infectious/inflammatory etiologies, stable. 4. Increased mild mucous plugging. 06/07/2021 CT abdomen and pelvis IMPRESSION: 1. No evidence of intra-abdominal/intrapelvic metastases. No interval change since 01/27/2021. 2. Fat-containing right inguinal hernia. 02/01/2021 CT Chest: 1. Postsurgical changes in keeping with right upper lobe lobectomy. 2. Bilateral nodular opacities measuring up to 5 mm in size, nonspecific. Recommend continued follow-up. 3. Previously visualized left pleural effusion has resolved. 4. No evidence of bulky intrathoracic lymphadenopathy. 5. Ectasia of ascending thoracic aorta measuring up to 4.8 cm in diameter. PATHOLOGIC PROFILE: Reviewed March 02, 2022 1. 01/10/2022 Partial liver resection: [id number] Order: [id number] Collected 01/10/2022 11:56 AM Status: Final result Visible to patient: No (inaccessible in MyChart) Dx: Liver mass 1 Result Note Component FINAL DIAGNOSIS A. Liver, partial resection: - Ciliated foregut cyst. - Parenchymal margin is not involved. - Hepatic parenchyma with mild portal inflammation. AEB/tg 01/13/2022 Diagnosis Comment We note the clinical history of a cystic liver mass. The lesion consists of a cyst lined by ciliated pseudostratified columnar epithelium with goblet cells consistent with a foregut cyst. Dysplasia is not identified. The adjacent liver parenchyma shows overall preservation of the hepatic architecture. Mild portal inflammation without interface hepatitis is identified. The interlobular bile ducts are intact. Macrovesicular steatosis is inconspicuous. No significant lobular inflammation is noted. Iron stain is neg ative for iron deposits. A trichrome stain shows no significant evidence of fibrosis. Gross Description A. LIVER PARTIAL RESECTION. Received in formalin labeled as liver mass is a wedge of liver parenchyma measuring 3.0 x 2.3 x 1.0 cm and weighing 2 g. The capsule shows cautery artifact and is inked black. The resection margin is inked orange. Sectioning reveals a smooth empty cyst measuring 1.1 x 0.8 x 0.5 cm. The the cyst extends within 1 mm of the capsule and abuts the parenchymal resection margin. The specimen is entirely submitted in formalin as follows: A1 A2 cyst in relationship to resection margin, A3 A4 remainderof specimen. Gross examination performed at [facility], [address] [place], [place] [address]IA# [id number] BANNER January 12, 2022 9:23 AM HISTORY REVIEWED (electronic chart updated): PAST MEDICAL HISTORY Diagnosis Date CAD (coronary artery disease) CHD (coronary heart disease) Chest pain, cardiac COPD (chronic obstructive pulmonary disease) (HCC) Depression Diabetes (HCC) Heart problem HTN (hypertension) Hyperlipidemia Insomnia Lung mass 01/[address] Etienne Lung trouble Tobacco user PAST SURGICAL HISTORY Procedure Laterality Date CABG (1) VEIN GRAFT & ARTERIAL GRAFT COLONOSCOPY SCREENING LOBECTOMY, SEGMENT PAST SURGICAL HISTORY OF plate in head FAMILY HISTORY Problem Relation Age of Onset Diabetes Mother Hypertension Mother Heart disease Mother Hypertension Father Cancer Father Heart disease Father Hypertension Sister Heart disease Sister Diabetes Sister Cancer Sister Social History Tobacco Use Smoking status: Current Every Day Smoker Packs/day: 1.00 Years: 48.00 Pack years: 48.00 Types: Cigarettes Smokeless tobacco: Never Used Vaping Use Vaping Use: Never used Substance Use Topics Alcohol use: Not Currently Drug use: Never Current Outpatient Medications Medication Sig potassium chloride ER (K-DUR, KLOR-CON) 20 mEq tablet Take 20 mEq by mouth once daily. levoFLOXacin (LEVAQUIN) 750 mg tablet Take 750 mg by mouth once daily. predniSONE (DELTASONE) 20 mg tablet Take 40 mg by mouth daily with food. amLODIPine (NORVASC) 10 mg tablet Take 10 mg by mouth once daily. Nebulizer and Compressor For Neb 1 Each three times daily as needed. Albuterol Sulfate 1.25 mg/3 mL nebulizer solution Use 1 Ampule via nebulizer every 6 hours as needed for wheezing/shortness of breath. sildenafil (VIAGRA) 25 mg tablet sildenafil 25 mg tablet TAKE 1 TABLET BY MOUTH 30 MINUTES BEFORE sexual activity busPIRone (BUSPAR) 15 mg tablet Take 15 mg by mouth three times daily. budesonide-formoterol (SYMBICORT) 160-4.5 mcg/actuation inhaler Symbicort 160 mcg-4.5 mcg/actuationHFA aerosol inhaler INHALE 2 PUFFS BY MOUTH TWICE DAILY traZODone (DESYREL) 50 mg tablet Take 50 mg by mouth once daily. albuterol HFA (PROVENTIL HFA, VENTOLIN HFA) 90 mcg/actuation inhaler albuterol sulfate HFA 90 mcg/actuation aerosol inhaler INHALE 2 PUFFS BY MOUTH EVERY 4 TO 6 HOURS NEEDED for shortness of breath and FOR WHEEZING aspirin, enteric coated (ASPIRIN, ENTERIC COATED) 81 mg EC tablet q 24 HR. atorvastatin (LIPITOR) 40 mg tablet atorvastatin 40 mg tablet TAKE 1 TABLET BY MOUTH AT BEDTIME clopidogrel (PLAVIX) 75 mg tablet clopidogrel 75 mg tablet TAKE 1 TABLET BY MOUTH ONCE DAILY furosemide (LASIX) 40 mg tablet furosemide 40 mg tablet TAKE 1 TABLET BY MOUTH DAILY metoprolol succinate ER (TOPROL XL) 50 mg 24 hr tablet metoprolol succinate ER 50 mg tablet,extended release 24 hr TAKE 1 TABLET BY MOUTH EVERY DAY nitroglycerin sublingual (NITROQUICK) 0.4 mg SL tablet nitroglycerin 0.4 mg sublingual tablet DISSOLVE 1 TABLET UNDER THE TONGUE NEEDED FOR CHEST PAIN- MAY REPEAT EVERY 5 MINUTES IF NEEDED (MAX 3 DOSES.- IF NO RELIEF CALL 911) sacubitril-valsartan (ENTRESTO) 97-103 mg tablet Entresto 97 mg-103 mg tablet TAKE 1 TABLET BY MOUTH TWICE DAILY No current facility-administered medications for this visit. ALLERGIES No Known Allergies REVIEW OF SYSTEMS: As noted in HPI PHYSICAL EXAMINATION: VIDEO EXAM: (if completed, performed via video enabled technology) No exam performed LABORATORY VALUES: Hemoglobin (g/dL) Date Value 01/05/2022 12.8 10/22/2021 10.1 Hematocrit (%) Date Value 01/05/2022 39.3 10/22/2021 31.2 WBC (k/uL) Date Value 01/05/2022 10.60 10/22/2021 11.99 Platelet Count (k/uL) Date Value 01/05/2022 251 10/22/2021 484 DIAGNOSIS: No diagnosis found. Jaya Bai MD, CPE Services Provided at: [facility], [place], [place] & [place], [place] CC: Shaikh Lowell [address] [facility] [id number] [place] documented in this encounterL[facility] Nurse Note* Deepti Thakkar - 03/02/2022 9:07 AM EDT Clinical questionnaires incomplete due to Patient was roomed by provider. Phone visit Deepti Thakkar documented in this encounterLake [facility]28-[facility] Miscellaneous Notes* Telephone Encounter - Ania Crump - 03/01/2022 9:01 AM EDT Images from the original note were not included. Call placed to patient -- He has been scheduled for phone follow up tomorrow, 03/02. MD Ania Kaur; Charla Flor RN [facility]! Looks like we missed scheduling him back - can I just have a phone call with him please and then I will et up whatever scans and appointment we need. Previous Messages ----- Message ----- From: Bj Mota MD Sent: 01/17/2022 12:33 PM EDT To: Jaya Bai MD, Jony Maier RN Its benign! Yeah Once in a while we can give good news to a patient, I already called and told him about the path and said that your office will be in touch. Best, Bj ----- Message ----- From: Lab, Background User Sent: 01/16/2022 7:54 AM EDT To: Bj Mota MD documented in this encounterLake [facility]-09-[facility]22 NoteHNO ID: [id number] Author: Rosalino Cummings APRN.OUTSIDE PROPERTY AGENT Service: Anesthesiology Author Type: Nurse Instructor Ballroom Dancing Type: Anesthesia Procedure Notes Filed: 01/10/2022 11:32 AM Note Text: ANESTHESIOLOGY PROCEDURE NOTE A-Line General Information Procedure Start Time/Medication Administration: 01/10/2022 11:02 AM Patient location during procedure: OR Timeout Performed Pre-procedure: timeout performed Consent Obtained: Yes Indication: continuous blood pressure monitoring Staffing Anesthesiologist: Alena Mortensen MD OUTSIDE PROPERTY AGENT: Rosalino Cummings APRN.OUTSIDE PROPERTY AGENT Performed by: ENRIQUE Preparation Sterility Preparation: hand hygiene performed prior to procedure, sterile gloves, drapes, and procedure tray, surgical cap used, mask used, sterile drape used during line insertion, skin prep agent completely dried prior to procedure Site Prep: Chlorhexidine Procedure Details Catheter Size: 20 G Catheter Length: 5.25 in Micropuncture Kit Used: No Guidewire Used: Yes Guidewire Removed Intact: YesLaterality: left Site: radial artery Ultrasound Guided: NoLine Secured: Tegaderm and tape Events Events: patient tolerated procedure well with no complications Comments Localized with 2% Lidocaine SIGNATURE: Rosalino Cummings APRN.OUTSIDE PROPERTY AGENT PATIENT NAME: Alessio Burns DATE: January 10, 2022 TIME: 11:31 AM CSN: [id number] NoteHNO ID: [id number] Author: Rosalino Cummings APRN.OUTSIDE PROPERTY AGENT Service: Anesthesiology Author Type: Nurse Instructor Ballroom Dancing Type: Anesthesia Procedure Notes Filed: 01/10/2022 11:30 AM Note Text: ANESTHESIOLOGY PROCEDURE NOTE PIV General Information Procedure Start Time/Medication Administration: 01/10/2022 11:20 AM Patient Location: OR Staffing OUTSIDE PROPERTY AGENT: Rosalino Cummings APRN.OUTSIDE PROPERTY AGENT Performed by: ENRIQUE Preparation Sterility Preparation: hand hygiene performed prior to procedure, surgical cap used, mask used, skin prep agent completely dried prior to procedure Site Prep: chlorhexidine Procedure Details Indication: need for IV access Needle Size/Type: 18 gauge angiocath Orientation: Left Location: Hand Imaging Guidance Used: No SIGNATURE: Rosalino Cummings APRN.CRNA PATIENT NAME: Alessio Burns DATE: January 10, 2022 TIME: 11:30 AM CSN: [id number] ID: [id number] Author: Rosalino Cummings APRN.CRNA Service: Anesthesiology Author Type: Nurse Instructor Ballroom Dancing Type: Anesthesia Procedure Notes Filed: 01/10/2022 11:28 AM Note Text: ANESTHESIOLOGY PROCEDURE NOTE Airway General Information Procedure Start Time/Medication Administration: 01/10/2022 11:07 AM Patient location during procedure: OR Timeout Performed Pre-procedure: timeout performed Consent Obtained: Yes 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 Staffing Anesthesiologist: Alena Mortensen MD OUTSIDE PROPERTY AGENT: Rosalino Cummings APRN.OUTSIDE PROPERTY AGENT Performed by: ENRIQUE Indications and Patient Condition Preoxygenated: yes Manual In-Line Stabilization: No Difficult Mask: No Indications for airway management: anesthesia anesthesia circuit Method: modified rapid sequence Cricoid Pressure: No Airway Accessory: oral airway Final Airway Details Final airway type: endotracheal airway Final Endotracheal Airway: ETT Cuffed: yes Successful intubation technique: direct laryngoscopy Devices used: intubating stylet Endotracheal tube insertion site: oral Blade: Levy Blade size: #4 ETT size (mm): 7.5 Measured from: lips Measurement (cm): 23 Placement verified by: capnometry Cormack-Lehane Classification: grade IIa - partial view of glottis Number of attempts at approach: 1 Airway not difficult SIGNATURE: Rosalino Cummings APRN.OUTSIDE PROPERTY AGENT PATIENT NAME: Alessio Burns DATE: January 10, 2022 TIME: 11:27 AM CSN: [id number] History of Present illness Narrative* Bj Mota MD - 01/06/2022 4:00 PM EDT This is a virtual visit using HIPAA compliant video platform. It required patient-provider interaction for the medical decision making as documented below. 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; prior lung adeno s/p right upper lobectomy 09/24/2020 (Path: [id number]), thoracic aneurysm, CAD, PA, emergent AVR and CABG 06/2020 (current Plavix/asa), HLD, COPD, current smoker -CT with new liver lesion, suspicious for metastasis -Unable to do imaged guided liver biopsy, per radiology -CEA: 1.6 PAST MEDICAL HISTORY: PAST MEDICAL HISTORY Diagnosis Date CAD (coronary artery disease) CHD (coronary heart disease) Chest pain, cardiac COPD (chronic obstructive pulmonary disease) (HCC) Depression Diabetes (HCC) Heart problem HTN (hypertension) Hyperlipidemia Insomnia Lung mass 01/[address] Etienne Lung trouble Tobacco user PAST SURGICAL HISTORY: PAST SURGICAL HISTORY Procedure Laterality Date CABG (1) VEIN GRAFT & ARTERIAL GRAFT COLONOSCOPY SCREENING LOBECTOMY, SEGMENT PAST SURGICAL HISTORY OF plate in head FAMILY HISTORY: FAMILY HISTORY Problem Relation Age of Onset Diabetes Mother Hypertension Mother Heart disease Mother Hypertension Father Cancer Father Heart disease Father Hypertension Sister Heart disease Sister Diabetes Sister Cancer Sister SOCIAL HISTORY: Social History Tobacco Use Smoking status: Current Every Day Smoker Packs/day: 1.00 Years: 48.00 Pack years: 48.00 Types: Cigarettes Smokeless tobacco: Never Used Vaping Use Vaping Use: Never used Substance Use Topics Alcohol use: Not Currently Drug use: Never IMAGIN12/10/2021 CT Liver/Pelvis IMPRESSION: 1. Since 10/22/2021, unchanged 1.1 cm hypodense subcapsular hepatic mass, which remains suspicious for a metastasis. 2. Decrease in size of previously noted mildly enlarged lymph nodes. No progressive lymphadenopathy. 3. Circumferential urinary bladder wall thickening, likely secondary to chronic outlet obstruction. 10/22/2021 CT A/P IMPRESSION: 1. Interval development of an approximate 1.1 cm, indeterminate hepatic lesion. The possibility of newly apparent metastases cannot be excluded. 2. Newly apparent retroperitoneal and central mesenteric lymphadenopathy, as above. Correlation with continued follow-up examinations is recommended. 10/22/2021 CT Chest IMPRESSION: 1. Newly apparent patchy bilateral groundglass opacities, left greater than right, likely infectious/inflammatory in nature. Correlation with continued follow-up examinations is recommended. 2. Bilateral less than 4 mm pulmonary nodules, stable. 3. Several subcentimeter mediastinal lymph nodes, mild soft tissue prominence at the santy bilaterally, stable. 4. Borderline aneurysmal enlargement of the ascending and mild dilation of the descending thoracic aorta, stable. LABS: Unremarkable IMPRESSION: Liver mass PLAN: Alessio Burns is a very pleasant 71 year old male, primary care physician Shaikh Lowell MD, referred to me by Dr. Bai for liver mass. Patient has a known history of lung malignancy, s/p surgery 1 year ago who presented with a new liver mass suspicious for metastasis. However thiscould not be biopsied percutaneously and patient is being referred to me for consideration of an operative biopsy. Patient can only do a phone call, is not able to come in person and cannot do a virtual call because of transportation technology issues. He has pretty significant cardiac comorbidities and is already being evaluated for significant anesthesia. He has never had any abdominal surgeries. Patient does not have any abdominal complaints today. We discussed in detail regarding the procedure, laparoscopic nature, risks including bile leak, bleeding, nondiagnostic specimen, benign specimen, conversion to open etc. Patient understands the risks. Patient additionally understands the riskof anesthesia related complications. We will get him scheduled in the near future and stable on theday of surgery. He understands that the surgery may be canceled if his risk assessment is differenton the day of his surgery. In preparation for surgery, I have reviewed his imaging with radiology, masses noted in the dome of the liver, this appears to be subcapsular and readily accessible to biopsy. This office note will be sent to the referring provider via electronic medical record and US mail. Bj Mota MD AMBULATORY TELEPHONE VISIT Alessio Burns has consented to this telephone encounter. Persons Present: patient and patient's spouse/significant other Chief Complaint/Reason: See above HPI: See above Data Reviewed: Most recent labs and imaging results. Assessment: No diagnosis found. See above Plan: See above Total Time Spent: 25 minutes Bj Mota MD documented in this encounterLake [facility]05-04-2022 Nurse Note* Dolly Ramírez LPN - 01/05/2022 11:10 AM EDT Letter per Delia Jeffries CNP faxed to DR Ambrosio cardiology, as requested, re:Thinner guidance. Confirmation rcd. documented in this encounterLake County [facility]05-04-2022 Instructions* Patient Instructions* Delia Jeffries APRN.AZAEL - 01/05/2022 9:50 AM EDT PATIENT PREOPERATIVE INSTRUCTIONS Bj Mota MD has scheduled you for your procedure at this surgery center: [facility]: [phone] --[id number] [address]. Please check in on thet floor at registration desk 6. Please read below carefully for your personalized instructions. Dietary Restrictions: - No solid food after midnight. - You may have 12 ounces of clear liquids (water, clear juices such as apple juice or gatorade, carbonated beverages, clear tea, black coffee, jello) until 2 hours before scheduled arrival at facility. Medications: Unless instructed differently below, stay on all of your medications until your surgery. Approved medications to take the morning of surgery with a sip of water: Amlodipine, buspar, lipitor, and metoprolol if normally taken in the morning. Inhaler If you take any medications for erectile dysfunction-Cialis (Tadalafil), Levitra, Staxyn (Vardenafil) Viagra (Sildenenafil please do not take these for 48 hours before surgery. If you start any new medications after today's visit, please contact the surgeon's office. Blood Thinning Medications: - Stop NSAIDS (Ibuprofen, Advil, Aleve, Motrin, Celebrex, Mobic, etc.) 7 days before surgery, as directed by your surgeon. - Stop Plavix 7 days before surgery or as directed by physician. - Do NOT stop aspirin or other anticoagulants without consulting with your diversified crops farmworker or prescribing physician. - Stop Vitamin E, ALL multi-vitamins, herbals and dietary supplements 7 days before surgery. - You may take Tylenol (Acetaminophen) or any of your pain medications that do not contain aspirin or NSAIDS as needed. Important Reminders: - If you are prescribed inhalers for breathing, continue using them. - Candy, mints, and tobacco products are NOT permitted the morning of surgery. - Hearing aids, dentures and glasses may be worn the morning of surgery. - NO jewelry, body piercings, makeup, hairpins or contacts are to be worn the day of surgery. If you develop symptoms such as a fever, cold, or flu, or have other changes to your health within TWO DAYS of scheduled surgery or the morning of surgery, please contact the surgery center above. Personal Belongings: -Please have photo ID and insurance cards. -If you do not have a copy of advance directives on file with us, please bring a copy with you on the day of surgery. - Leave ALL valuables and money at home or with family members. For Outpatient Procedures: - YOU MUST HAVE A RESPONSIBLE SUPERVISOR DRY CELL ASSEMBLY TAKE YOU HOME. A INTEGRATIVE MEDICINE PHYSICIAN OR DATA CONVERSION DEVELOPER CANNOT BE MADE A RESPONSIBLE SUPERVISOR DRY CELL ASSEMBLY. - We recommend that a responsible person stays with you overnight to take care of you. - You cannot stay in a hotel alone after outpatient surgery. You will not be permitted to have yoursurgery, if you do not have someone to take care of you. Arrival Time for Surgery: - The Surgery Center or hospital where you are having surgery will call the afternoon before surgery (or Monday for Monday surgery) with a scheduled arrival time. - If you have not heard by 4 pm, please contact the surgery center above. Please be aware that emergency situations arise, which may delay or change your surgical time. If this happens, we will notify you as soon as possible and regret any inconvenience. If you already have an Advance Directive, please fax a copy to [phone] or email to for it to be added to your chart. If you do not have an Advance Directive, you can find the appropriate form and more information at [email or web address]. We recommend that youcomplete the Advance Directive form found on the website and bring it with you the day of your surgery. It can be witnessed and scanned into your chart that day. documented in this encounterLake [facility]05-04-2022 History and physical note * Delia Jeffries APRN.BUZZLE BUFFER - 01/05/2022 9:40 AM EDT HISTORY AND PHYSICAL EXAMINATION SERVICE DATE: 01/05/2022 SERVICE TIME: 11:20 AM PRIMARY CARE PHYSICIAN: Shaikh Lowell MD REASON FOR VISIT: Alessio Burns is a 71 year old male who is scheduled for LAPAROSCOPY DIAGNOSTIC ABDOMEN, PERITONEUM AND OMENTUM at the request of Dr. Bj Mota for consultation. My final recommendation will becommunicated back to the requesting physician by way of shared medical record or letter. The patient has the following: ACTIVE PROBLEM LIST Cancer of Trachea, Bronchus, and Lung (Hcc) Coronary Arteriosclerosis Chronic Diastolic Chf (Congestive Heart Failure) (Hcc) Aortic Valve Stenosis Aneurysm of Thoracic Aorta (Hcc) Acute Thrombus of Left Ventricle (Hcc) Aortic Valve Replaced Carotid Artery Stenosis Lung Mass Hx of Cabg Htn (Hypertension) Smoker Copd (Chronic Obstructive Pulmonary Disease) (Hcc) Hld (Hyperlipidemia) Depression Subjective CHIEF COMPLAINT: Pre-op exam HPI: This is a 71 year old male that is scheduled for the above procedure. Patient has a history ofa liver mass. Patient denies any pain at this time. PAST MEDICAL HISTORY Diagnosis Date CAD (coronary artery disease) CHD (coronary heart disease) Chest pain, cardiac COPD (chronic obstructive pulmonary disease) (HCC) Depression Diabetes (HCC) Heart problem HTN (hypertension) Hyperlipidemia Insomnia Lung mass 01/[address] Etienne Lung trouble Tobacco user PAST SURGICAL HISTORY Procedure Laterality Date CABG (1) VEIN GRAFT & ARTERIAL GRAFT COLONOSCOPY SCREENING LOBECTOMY, SEGMENT PAST SURGICAL HISTORY OF plate in head FAMILY HISTORY Problem Relation Age of Onset Diabetes Mother Hypertension Mother Heart disease Mother Hypertension Father Cancer Father Heart disease Father Hypertension Sister Heart disease Sister Diabetes Sister Cancer Sister SOCIAL HISTORY: Social History Tobacco Use Smoking status: Current Every Day Smoker Packs/day: 1.00 Years: 48.00 Pack years: 48.00 Types: Cigarettes Smokeless tobacco: Never Used Vaping Use Vaping Use: Never used Substance Use Topics Alcohol use: Not Currently Drug use: Never MEDICATIONS: Prior to Admission medications as of 01/05/22 1127 Medication Sig Last Dose Taking potassium chloride ER (K-DUR, KLOR-CON) 20 mEq tablet Take 20 mEq by mouth once daily. Yes amLODIPine (NORVASC) 10 mg tablet Take 10 mg by mouth once daily. Yes Albuterol Sulfate 1.25 mg/3 mL nebulizer solution Use 1 Ampule via nebulizer every 6 hours as needed for wheezing/shortness of breath. Yes sildenafil (VIAGRA) 25 mg tablet sildenafil 25 mg tablet TAKE 1 TABLET BY MOUTH 30 MINUTES BEFORE sexual activity Yes busPIRone (BUSPAR) 15 mg tablet Take 15 mg by mouth three times daily. Yes budesonide-formoterol (SYMBICORT) 160-4.5 mcg/actuation inhaler Symbicort 160 mcg-4.5 mcg/actuationHFA aerosol inhaler INHALE 2 PUFFS BY MOUTH TWICE DAILY Yes traZODone (DESYREL) 50 mg tablet Take 50 mg by mouth once daily. Yes albuterol HFA (PROVENTIL HFA, VENTOLIN HFA) 90 mcg/actuation inhaler albuterol sulfate HFA 90 mcg/actuation aerosol inhaler INHALE 2 PUFFS BY MOUTH EVERY 4 TO 6 HOURS NEEDED for shortness of breath and FOR WHEEZING Yes aspirin, enteric coated (ASPIRIN, ENTERIC COATED) 81 mg EC tablet q 24 HR. Yes atorvastatin (LIPITOR) 40 mg tablet atorvastatin 40 mg tablet TAKE 1 TABLET BY MOUTH AT BEDTIME Yes clopidogrel (PLAVIX) 75 mg tablet clopidogrel 75 mg tablet TAKE 1 TABLET BY MOUTH ONCE DAILY Yes furosemide (LASIX) 40 mg tablet furosemide 40 mg tablet TAKE 1 TABLET BY MOUTH DAILY Yes metoprolol succinate ER (TOPROL XL) 50 mg 24 hr tablet metoprolol succinate ER 50 mg tablet,extended release 24 hr TAKE 1 TABLET BY MOUTH EVERY DAY Yes nitroglycerin sublingual (NITROQUICK) 0.4 mg SL tablet nitroglycerin 0.4 mg sublingual tablet DISSOLVE 1 TABLET UNDER THE TONGUE NEEDED FOR CHEST PAIN- MAY REPEAT EVERY 5 MINUTES IF NEEDED (MAX 3 DOSES.- IF NO RELIEF CALL 911) Yes sacubitril-valsartan (ENTRESTO) 97-103 mg tablet Entresto 97 mg-103 mg tablet TAKE 1 TABLET BY MOUTH TWICE DAILY Yes levoFLOXacin (LEVAQUIN) 750 mg tablet Take 750 mg by mouth once daily. predniSONE (DELTASONE) 20 mg tablet Take 40 mg by mouth daily with food. Nebulizer and Compressor For Neb 1 Each three times daily as needed. No medication comments found. CURRENT ALLERGIES: ALLERGIES No Known Allergies COVID VACCINATION STATUS: Not vaccinated REVIEW OF SYSTEMS: PAIN ASSESSMENT: General: No weight loss, malaise or fevers. Neuro: No history of TIA's, stroke, AUTOMOTIVE WINDOW TINTER tumor, impaired sensorium, hemiplegia, paraplegia or quadraplegia. No neurological symptoms or problems. Respiratory: Positive for Moderate COPD, Tobacco Use 1 ppd, Negative for Current cough, Home O2 Cardiovascular: Positive for: Anticoagulation therapy, CAD; Last Office Visit: 10/2021, CHF, HLD, Hypertension, PA, Open heart 2019, Valve surgery 2019, Negative for Chest Pain, DVT/PE GI: See HPI : No history of dysuria, frequency or incontinence,, stones or chronic kidney disease, No difficulty urinating, nocturia > 1 time per night or hematuria Endocrine: No history of diabetes. Has not taken steroids within the past 30 days. No history of endocrinological symptoms or problems. Hematology: Chronic anti-coagulation / platelet meds (Aspirin, Plavix) Oncology: Disseminated Cancer Psych: Depression Musculoskeletal: Negative for joint pain or swelling, back pain or muscle pain. Skin: Negative for lesions, rash and itching. Objective PHYSICAL EXAM: VITALS: BP 127/59 Pulse 57 Temp (Src) 97.7 (Temporal Artery) Resp 20 Ht 5' 8 (1.73m) Wt 173 lb (78.5kg) SpO2 97% BMI 26.31 kg/(m^2). General: Alert and oriented, No acute distress Skin: Normal color, no rash, no lesions. HEENT: EOM, pupils equal, round and reactive. Cardiovascular: Normal S1 & S2, no rubs, murmurs or gallops. No JVD. Pulse regular. Lungs: Normal breath sounds, no wheezes or crackles. Abdomen: Tender Extremities: No deformity, no edema or tenderness, no joint swelling or clubbing. Neurological: Normal cognition and motor skills. Gait normal. No weakness or sensory deficit. Diagnostic tests reviewed for today's visit: Lab Value Units Date High Low HB 12.8 g/dL 01/05/2022 17.0 13.0 HCT 39.3 % 01/05/2022 51.0 39.0 WBC 10.60 k/uL 01/05/2022 11.00 3.70 PLT 251 k/uL 01/05/2022 400 150 NA 138 mmol/L 01/05/2022 144 136 K 4.5 mmol/L 01/05/2022 5.1 3.7 GLUC 101 mg/dL 01/05/2022 99 74 BUN 12 mg/dL 01/05/2022 24 9 CREAT 0.90 mg/dL 01/05/2022 1.22 0.73 ALT 12 U/L 12/10/2021 54 10 AST 16 U/L 12/10/2021 40 14 TBILI 0.3 mg/dL 12/10/2021 1.3 0.2 EKG 10/23/21 Sinus rhythm Cannot rule out anterior myocardial infarction Abnormal ECG ECHO 10/23/21 - full report in scanned documents - EF 50-55% - stable aortic aneurysm measured 5.0 cm Assessment/Plan Aneurysm of thoracic aorta (HCC) Assessment: follows up with cardiology, stable and unchanged per last ECHO 10/2021. Asymptomatic Aortic valve replaced Assessment: s/p 06/2020 Aortic valve stenosis Assessment: follows up with cardiology, stable and per last ECHO 10/2021. Asymptomatic Chronic diastolic CHF (congestive heart failure) (HCC) Assessment: follows up with cardiology, stable and asymptomatic. daily lasix Coronary arteriosclerosis Assessment: follows up with cardiology, daily aspirin and plavix Hx of CABG Assessment: 2019, stable. Follows up with cardiology Cancer of trachea, bronchus, and lung ([facility]) Assessment: s/p lobectomy September 2020, stable Follows up with PCP HTN (hypertension) Assessment: managed with med, stable 01/05/2022 127/59 10/29/2021 119/56 Smoker Assessment: 1ppd for 40 years COPD (chronic obstructive pulmonary disease) ([facility]) Assessment: managed with inhalers, stable HLD (hyperlipidemia) Assessment: managed with med, stable Depression Assessment: managed with med, stable METS: Take care of self; that is eating, dressing, bathing, using the toilet (2.75 METs) Walk a block or two on level ground (2.75 METs) Climb a flight of stairs or walk up a hill (5.50 METs) Patient denies any chest pain or undue shortness of breath with the above physical activity. ASA Class: 3 ANESTHESIA FINDINGS: Intubation History: No history of difficult intubation Significant Anesthesia Considerations: None Airway Exam: General: Normal appearance Mallampati Score is CLASS III ULBT: Class III - Lower incisors cannot bite the upper lip Neck: Normal appearance and function, Distance from hyoid to mentum during neck extension is at least 3 finger breaths Mouth: Normal tongue size and Mouth opening is 2 finger breaths Dentition: Upper denture and Lower denture Airway History: No abnormal airway history STOP BANG Score: Criteria: Snoring Hypertension Age over 50 (71 year old) Male gender Score = 4 PLAN This patient is optimally prepared for surgery. - Letter sent to Dr Ambrosio for plavix and aspirin guidance. Patient instructed to call diversified crops farmworker for answer regarding medications CONSULTS: Patient does not require consults for optimization at this time. The Following Tests/Procedures Have Been Initiated: Orders Placed This Encounter CBC with Differential Standing Status: Future Number of Occurrences: 1 Standing Expiration Date: 03/07/2022 BMP Standing Status: Future Number of Occurrences: 1 Standing Expiration Date: 03/07/2022 Type and Screen, 30 day Standing Status: Future Number of Occurrences: 1 Standing Expiration Date: 03/07/2022 Confirm Blood Type Standing Status: Future Number of Occurrences: 1 Standing Expiration Date: 03/07/2022 Order Specific Question: Did Blood Bank direct you to place this order: Answer: No - Presurgical Workflow Planned Anesthetic: Per anesthesia choice Instructions Given to Patient: Instructions located in the after visit summary. Patient given verbal and written preop instructions and voices comprehension and compliance. SIGNATURE: Delia Jeffries APRN.CNP PATIENT NAME: Alessio Burns DATE: January 05, 2022 TIME: 9:41 AM [facility] History of Present illness Narrative* Jaya Bai MD - 12/17/2021 4:29 PM EDT Images from the original note were not included. NAME: Alessio Burns [facility] NO.: [id number] DATE OF SERVICE: December 17, 2021 Some elements in this clinic note that are critical to medical decision making have been carefully reviewed and included from a prior clinic note dated: October 29, 2021 Referring Provider: Dr. Shaikh Etienne Additional Clinicians involved in Alessio Burns's care: VIRTUAL VISIT PROGRESS NOTE This is a virtual visit using Telephone only for 8 minutes. It required patient- provider interaction for the medical decision making as documented below. 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 He actually presented with an acute myocardial infarction and had to undergo CABG and aortic valve repair emergently inOc2019. Subsequent work-up demonstrated malignancy with no evidence of metastatic disease andhe underwent resection in July 2020 after he had recovered from his cardiac surgery. He is now following up for ongoing surveillance versus adjuvant therapy. Is unlikely that he will be a candidate for adjuvant therapy given his almost 6-month gap between resection and presentation to me. He rem ains at high risk because of tobacco use. Restaging is non-specific for recurrence of lung cancer but short interval CT's needed to follow new liver lesion. - Findings persist and will send for biopsy. Colonoscopy. Done for + Cologuard was negative. Dyspnea wheezing - needs a nebulizer PLAN: 1. Please sed to [place] or [place] for image guided liver Biopsy. 2. Call results after HPI: Updated Visit, December 17, 2021: Telephone only for 8 minutes Called as requested to discuss findings on liver CT showing subcapsular liver lesion that remains suspicious. disussed biopsy with him and he is agreeable. Updated Visit, October 29, 2021: Got COVID in September and was fairly sick - still has night sweats. Recovering but still has poor appetitie. His scans demonstrate a small liver lesion and multple mesenteric lymphnodes. I will followthese given the recent COVID infection. His sister Purvi is with him today. Updated Visit, June 25, 2021: Alessio Burns returns for follow up. There has been no significant medical changes since his lastvisit. He has a chronic cough and shortness of breath. He continues to smoke. He denies any unusualpain. He had a few episodes of sharp abdominal pain for the last 2 weeks. He states that the pain is on his right side just below his liver. The patient states that he does not consume alcohol. He has occasional constipation. He also states that sometimes urinating is difficult. Overall, he is doing fairly well. He states that his son is concerned about him and wants him to take the best care of himself that he can. 04/22/2021 [place] [place] Results scanned to [facility] 06/04/2021 Updated Visit, February 05, 2021: Doing well overall but still smokes. We reviewed his CT scans from 02/01/2021 which shows no evidence of recurrent diseaes but will need follow up for bilateral small pulmonary nodules. Initial Visit, January 13, 2021: Alessio Burns presents today for Hematology and Oncology evaluation accompanied by his Sister Maria Teresa. He is a 70 year old male who was found to have a right apical mass consistent with lung cancer during the work-up of an acute myocardial infarction with CHF and fatigue. His current ejection fraction is 40%. He is status post aortic valve repair with CABG in late 2019 (June). During that admission he was found to have a lung mass described above and bronchoscopic biopsy demonstrated sarcomatoid pathology. He was additionally found to have a PET scan demonstrating uptake in the ascending colon and has had a positive Cologuard test. He was additionally found to have a positive Cologuard and will need direct visualization with colonoscopy. Case history: May 2020: 3 cm spiculated nodule right upper lobe status post biopsy 07/21/2020 with interventional radiology. Preceding Nichole needle biopsy was negative for malignancy. PET scan June 03, 2020 showed uptake in a 3 cm right apical mass and no other disease. 07/21/2020 CT-guided core biopsy right lung: High-grade malignancy with necrosis see comment. Malignant cells stain positive for lane cytokeratin focal and p63 weak focal. Negative for neuroendocrine markers. Negative for melanoma markers. Differential diagnosis include sarcomatoid carcinoma and high-grade sarcoma among others. Additional stains pending. The patient then underwent right upper lobectomy September 24, 2020. 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 Lymphovascular invasion present. Tumor is 1 mm from inked parietal pleura. Resection margins uninvolved by invasive carcinoma. 4 lymph nodes negative for metastatic carcinoma. Pathologic staging pT2a, pN0. Lymph nodes consisted of level 8 lymph nodes excisional. Level 10, level 7 and level 11. There was lipidic spread noted. RADIOGRAPHIC DATA: Reviewed December 17, 2021 12/10/2021 CT Liver/Pelvis: 1. Since 10/22/2021, unchanged 1.1 cm hypodense subcapsular hepatic mass, which remains suspicious for a metastasis. 2. Decrease in size of previously noted mildly enlarged lymph nodes. No progressive lymphadenopathy. 3. Circumferential urinary bladder wall thickening, likely secondary to chronic outlet obstruction. 10/22/2021 CT CAP Chest 1. Newly apparent patchy bilateral groundglass opacities, left greater than right, likely infectious/inflammatory in nature. Correlation with continued follow-up examinations is recommended. 2. Bilateral less than 4 mm pulmonary nodules, stable. 3. Several subcentimeter mediastinal lymph nodes, mild soft tissue prominence at the santy bilaterally, stable. 4. Borderline aneurysmal enlargement of the ascending and mild dilation of the descending thoracic aorta, stable. Abd/Pelvis: 1. Interval development of an approximate 1.1 cm, indeterminate hepatic lesion. The possibility of newly apparent metastases cannot be excluded. 2. Newly apparent retroperitoneal and central mesenteric lymphadenopathy, as above. Correlation with continued follow-up examinations is recommended. 06/07/2021 CT Chest: IMPRESSION: 1. Interval resolution of previously noted right lower lobe nodular opacity. 2. Other residual subcentimeter nodular opacities measuring less than 5 mm, stable since 01/27/2021. 3. Subtle reticulonodular opacities in the left upper lung field most likely related to respiratory bronchiolitis or other infectious/inflammatory etiologies, stable. 4. Increased mild mucous plugging. 06/07/2021 CT abdomen and pelvis IMPRESSION: 1. No evidence of intra-abdominal/intrapelvic metastases. No interval change since 01/27/2021. 2. Fat-containing right inguinal hernia. 02/01/2021 CT Chest: 1. Postsurgical changes in keeping with right upper lobe lobectomy. 2. Bilateral nodular opacities measuring up to 5 mm in size, nonspecific. Recommend continued follow-up. 3. Previously visualized left pleural effusion has resolved. 4. No evidence of bulky intrathoracic lymphadenopathy. 5. Ectasia of ascending thoracic aorta measuring up to 4.8 cm in diameter. HISTORY REVIEWED (electronic chart updated): PAST MEDICAL HISTORY Diagnosis Date CAD (coronary artery disease) CHD (coronary heart disease) Chest pain, cardiac COPD (chronic obstructive pulmonary disease) (HCC) Depression Diabetes (HCC) Heart problem HTN (hypertension) Hyperlipidemia Insomnia Lung mass 01/[address] Etienne Lung trouble Tobacco user PAST SURGICAL HISTORY Procedure Laterality Date PAST SURGICAL HISTORY OF plate in head FAMILY HISTORY Problem Relation Age of Onset Diabetes Mother Hypertension Mother Heart disease Mother Hypertension Father Cancer Father Heart disease Father Hypertension Sister Heart disease Sister Diabetes Sister Cancer Sister Social History Tobacco Use Smoking status: Current Every Day Smoker Packs/day: 1.00 Years: 48.00 Pack years: 48.00 Types: Cigarettes Smokeless tobacco: Never Used Vaping Use Vaping Use: Never used Substance Use Topics Alcohol use: Not Currently Drug use: Never Current Outpatient Medications Medication Sig potassium chloride ER (K-DUR, KLOR-CON) 20 mEq tablet Take 20 mEq by mouth once daily. levoFLOXacin (LEVAQUIN) 750 mg tablet Take 750 mg by mouth once daily. predniSONE (DELTASONE) 20 mg tablet Take 40 mg by mouth daily with food. amLODIPine (NORVASC) 10 mg tablet Take 10 mg by mouth once daily. Nebulizer and Compressor For Neb 1 Each three times daily as needed. Albuterol Sulfate 1.25 mg/3 mL nebulizer solution Use 1 Ampule via nebulizer every 6 hours as needed for wheezing/shortness of breath. sildenafil (VIAGRA) 25 mg tablet sildenafil 25 mg tablet TAKE 1 TABLET BY MOUTH 30 MINUTES BEFORE sexual activity busPIRone (BUSPAR) 15 mg tablet Take 15 mg by mouth three times daily. budesonide-formoterol (SYMBICORT) 160-4.5 mcg/actuation inhaler Symbicort 160 mcg-4.5 mcg/actuationHFA aerosol inhaler INHALE 2 PUFFS BY MOUTH TWICE DAILY traZODone (DESYREL) 50 mg tablet Take 50 mg by mouth once daily. albuterol HFA (PROVENTIL HFA, VENTOLIN HFA) 90 mcg/actuation inhaler albuterol sulfate HFA 90 mcg/actuation aerosol inhaler INHALE 2 PUFFS BY MOUTH EVERY 4 TO 6 HOURS NEEDED for shortness of breath and FOR WHEEZING aspirin, enteric coated (ASPIRIN, ENTERIC COATED) 81 mg EC tablet q 24 HR. atorvastatin (LIPITOR) 40 mg tablet atorvastatin 40 mg tablet TAKE 1 TABLET BY MOUTH AT BEDTIME clopidogrel (PLAVIX) 75 mg tablet clopidogrel 75 mg tablet TAKE 1 TABLET BY MOUTH ONCE DAILY furosemide (LASIX) 40 mg tablet furosemide 40 mg tablet TAKE 1 TABLET BY MOUTH DAILY metoprolol succinate ER (TOPROL XL) 50 mg 24 hr tablet metoprolol succinate ER 50 mg tablet,extended release 24 hr TAKE 1 TABLET BY MOUTH EVERY DAY nitroglycerin sublingual (NITROQUICK) 0.4 mg SL tablet nitroglycerin 0.4 mg sublingual tablet DISSOLVE 1 TABLET UNDER THE TONGUE NEEDED FOR CHEST PAIN- MAY REPEAT EVERY 5 MINUTES IF NEEDED (MAX 3 DOSES.- IF NO RELIEF CALL 911) sacubitril-valsartan (ENTRESTO) 97-103 mg tablet Entresto 97 mg-103 mg tablet TAKE 1 TABLET BY MOUTH TWICE DAILY No current facility-administered medications for this visit. ALLERGIES No Known Allergies REVIEW OF SYSTEMS: As noted in HPI PHYSICAL EXAMINATION: VIDEO EXAM: (if completed, performed via video enabled technology) No exam performed LABORATORY VALUES: Hemoglobin (g/dL) Date Value 12/10/2021 10.8 10/22/2021 10.1 Hematocrit (%) Date Value 12/10/2021 34.8 10/22/2021 31.2 WBC (k/uL) Date Value 12/10/2021 9.20 10/22/2021 11.99 Platelet Count (k/uL) Date Value 12/10/2021 233 10/22/2021 484 DIAGNOSIS: (C33, C34.80) Cancer of trachea, bronchus, and lung (HCC) (primary encounter diagnosis) Plan: IMAGING GUIDED BIOPSY LIVER (R16.0) Liver mass, right lobe Plan: IMAGING GUIDED BIOPSY LIVER Jaya Bai MD, CPE Services Provided at: [place], [place] & [place], [place] CC: Shaikh Lowell [address] [facility] [id number] [address] documented in this encounterL[facility]* Diagnosis Cancer of trachea, bronchus, and lung (HCC)- Primary Malignant neoplasm of other parts of bronchus or lung Liver mass, right lobe Unspecified disorder of liver [facility]* Diagnosis Pre-op evaluation- Primary Preoperative examination, unspecified Liver mass Unspecified disorder of liver Coronary arteriosclerosis Coronary atherosclerosis of unspecified type of vessel, iliamna or graft Chronic diastolic CHF (congestive heart failure) (HCC) Chronic diastolic heart failure Aortic valve stenosis, etiology of cardiac valve disease unspecified Thoracic aortic aneurysm without rupture (HCC) Thoracic aneurysm without mention of rupture Acute thrombus of left ventricle (HCC) Acute myocardial infarction, unspecified site, episode of care unspecified Aortic valve replaced Heart valve replaced by other means Stenosis of carotid artery, unspecified laterality Lung mass Swelling, mass, or lump in chest 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, bronchus, and lung (HCC) Malignant neoplasm of other parts of bronchus or lung Hypertension, unspecified type Smoker Tobacco use disorder Chronic obstructive pulmonary disease, unspecified COPD type (HCC) Hyperlipidemia, unspecified hyperlipidemia type Depression, unspecified depression type Liver mass Unspecified disorder of liver documented in this encounter [facility]* Diagnosis Liver mass- Primary Unspecified disorder of liver documented [facility] this encounter [facility]* Diagnosis Cancer of trachea, bronchus, and lung (HCC)- Primary Malignant neoplasm of other parts of bronchus or lung Malignant neoplasm of unspecified part of unspecified bronchus or lung (HCC) Panlobular emphysema (HCC) Other emphysema [facility] Diagnosis Malignant neoplasm of unspecified part of unspecified bronchus or lung (HCC)- Primary Cancer of trachea, bronchus, and lung (HCC) Malignant neoplasm of other parts of bronchus or lung Panlobular emphysema (HCC) Other emphysema [facility]* Diagnosis Onset Date Resolution Status Personal history of colonic polyps acute [facility] Work Phone: Evaluation note* Diagnosis Cancer of trachea, bronchus, and lung (HCC)- Primary Malignant neoplasm of other parts of bronchus or lung Lung nodules Other nonspecific abnormal finding of lung field Panlobular emphysema (HCC) Other emphysema [facility]* Diagnosis Malignant neoplasm of unspecified part of unspecified bronchus or lung (HCC)- Primary [facility]* Diagnosis Malignant neoplasm of unspecified part of unspecified bronchus or lung (HCC)- Primary Lung nodules Other nonspecific abnormal finding of lung field 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 reaction to tuberculin skin test without active tuberculosis Non-caseating granuloma Pyogenic granuloma of skin and subcutaneous tissue [facility]* Diagnosis Malignant neoplasm of unspecified part of unspecified bronchus or lung (HCC)- Primary documented in this encounter [facility]* Diagnosis Malignant neoplasm of unspecified part of unspecified bronchus or lung (HCC)- Primary Lung nodules Other nonspecific abnormal finding of lung field [facility]* Diagnosis Abnormal finding on GI tract imaging- Primary Nonspecific (abnormal) findings on radiological and other examination of gastrointestinal tract Malignant neoplasm of unspecified part of unspecified bronchus or lung (HCC) documented in this encounter [facility] noteNo assessment information availableProtestant [facility]acon[facility] Work Phone: Evaluation note* Diagnosis Malignant neoplasm of unspecified part of unspecified bronchus or lung (HCC)- Primary documented in this encounter [facility] and physical note Author Paramjit Spring [facility] May 30, 2023 1:25pm Note Date/Time May 30, 2023 1:26pm [facility] [address] [place] [address] Gastroenterology H&P Signed Patient: Alessio Burns MR#: [id number] : 1950 Acct:[id number] Age/Sex: 73 / M Adm Date: 3 Loc: Room: Type: [facility] Attending Dr: Paramjit Spring MD Copies to: MD Shaikh Lowell Price MD~ Date of Service: 05/30/2023 HISTORY & PHYSICAL: Patient's history with special attention to the cardiovascular, pulmonary systems and the current problem was reviewed with the patient immediately prior to the procedure. Present medications and doses reviewed in the EMR. Allergies and pertinent laboratory tests were also reviewedat this time in the EMR. The physical examination, as below, was then performed. Indication, assessment and HPI: 73-year-old male with a history of lung cancer status post wedge resection presents for EGD to evaluate abnormal PET CT avidityin the distal stomach Family history of GI malignancy? No PHYSICAL EXAMINATION Mouth and Pharynx : Moist mucus membranes, normal dentition Cardiac: Regular rate, regular rhythm Pulmonary: Clear to auscultation bilaterally, no wheezing Neurological: Alert and oriented x3, no focal deficits noted Abdomen: Abdomen soft, non-tender REVIEW OF SYSTEMS Constitutional: Denies malaise, fevers Cardiovascular: Denies chest pain, palpitations Respiratory: Denies shortness of breath, wheezing Gastrointestinal: Per HPI Genitourinary: Denies dysuria, polyuria Musculoskeletal: Denies joint swelling, joint stiffness Neurological: Denies numbness, tingling Integumentary: Denies rashes, skin lesions Endocrine: Denies fatigue, weight loss Written informed consent obtained from the patient. Risks (including but not limited to perforation, infection, bloating, bleeding, need for emergent surgeryand loss of life), benefits and alternatives explained and questions answered. The patient verbalized understanding. Based on history patient is an appropriate candidate for the procedure. Paramjit Spring MD Documented By: Paramjit Spring MD 05/30/23 132 Signed By: <Electronically signed by Paramjit Spring MD> 05/30/23 1325 [facility] Work Phone: History general Narrative - Reported* Type Description Date Surgical History open heart surgery Hospitalization History see above [employer] Other Hospital Discharge instructions Additional Instructions DISCHARGE INSTRUCTIONS FOR UPPER ENDOSCOPY WHAT TO EXPECT: - You may feel full, gassy or cramping after your procedure. In some cases, this may be from a few hours to a day. Walking may help relieve the discomfort. - Your throat may feel sore today from the scope that the doctor passed through your throat to visualize your stomach. Take a throat lozenge or suck on ice to ease the discomfort. - You may notice some streaks of blood in your sputum if the doctor has taken a biopsy. - You should begin to recover from anesthesia within 1 hour of the procedure, however may feel groggy for the next 24 hours. DO's AND DON'Ts: - Call your doctor right away if you have a hard abdomen, severe pain, vomiting or if you cough up large amounts of blood. - Call your doctor if you develop any rashes, hives or difficulty breathing. - If you take 81 mg aspirin for your heart it is safe to resume this medication. - If you take other blood thinner medications your doctor will instruct you when these can safely be resumed. - Do NOT drive for 24 hours. - Do NOT operate machinery such as power tools, lawn mowers, snow blowers, sewing machines, etc. for 24 hours. - Avoid alcoholic beverages and drugs for allergies, nerves, or sleep. - Do NOT stay alone. Do NOT leave your child unattended. - Do NOT make important personal or business decisions or sign any legal documents. - Eat solid foods and drink liquids in smaller amounts than usual until normal appetite returns. If you should experience an upset stomach, liquids high in sugar content (soda, Edmar-Aid, non-acid juices) are recommended. - Do NOT smoke. - Do take it easy today. You need not stay in bed, but avoid strenuous activities such as jogging or working out. FOLLOW UP & RECOMMENDATIONS: -Restart your clopidogrel and aspirin tomorrow -Start omeprazole 40 mg once daily, take this 30 minutes before your first meal the day -The GI office will schedule you a follow-up visit to discuss your pathology results -Notify the doctor if you have any problems. -Follow up with PCP. -Office number [phone].[facility] Work Phone: InstructionsNot on filedocumented in this encounter [facility] for referral (narrative)* Diagnostic Procedure Only (Routine) - Pending Review Specialty Diagnoses / Procedures Referred By Efrain espinoza Referred To Contact MOLECULAR & FUNCTIONAL IMAGING Diagnoses Malignant neoplasm of unspecified part of unspecified bronchus or lung (HCC) Procedures NM PET/CT SKULL-THIGH SUBSEQUENT PET IMAGING CT ATTENUATION SKULL BASE MID-THIGH Jaya Bai MD [address] [place] [address] [place] [address] Molecular & Functional Imaging [address] [place] [address] Referral ID Status Reason Start Date Expiration Date Visits Requested Visits Authorized [id number] Pending Review Auto-Generat ed Referral 02/19/2023 02/07/2024 1 1 [facility] for referral (narrative)* Diagnostic Procedure Only (Routine) - Pending Review Specialty Diagnoses / Procedures Referred By Efrain espinoza Referred To Contact MOLECULAR & FUNCTIONAL IMAGING Diagnoses Malignant neoplasm of unspecified part of unspecified bronchus or lung (HCC) Lung nodules Procedures NM PET/CT SKULL-THIGH SUBSEQUENT PET IMAGING CT ATTENUATION SKULL BASE MID-THIGH Jaya Bai MD [address] [place] [address] [place] [address] Molecular & Functional Imaging [address] [place] [address] Referral ID Status Reason Start Date Expiration Date Visits Requested Visits Authorized [id number] Pending Review Auto-Generat ed Referral 06/03/2023 04/01/2024 1 1 [facility] for referral (narrative)* Diagnostic Procedure Only (Routine) - Authorized Specialty Diagnoses / Procedures Referred By Efrain t Referred To Contact MOLECULAR & FUNCTIONAL IMAGING Diagnoses Abnormal finding on GI tract imaging Malignant neoplasm of unspecified part of unspecified bronchus or lung (HCC) Procedures NM PET/CT SKULL-THIGH SUBSEQUENT PET IMAGING CT ATTENUATION SKULL BASE MID-THIGH Jaya Bai MD [address] [place] [address] [place] [address] Molecular & Functional Imaging [address] [place] [address] Referral ID Status Reason Start Date Expiration Date Visits Requested Visits Authorized [id number] Authorized Auto-Generat ed Referral 08/04/2023 06/03/2024 1 1 * Consult, Test, Treat (Routine) - Authorized Specialty Diagnoses / Procedures Referred By Efrain t Referred To Contact Gastroenterology Diagnoses Abnormal finding on GI tract imaging Procedures CONSULT TO GASTROENTEROLOGY OFFICE/OUTPATIENT [facility] MDM 60-74 MINUTES Jaya Bai MD [address] [place] [address] [place] [address] Referral ID Status Reason Start Date Expiration Date Visits Requested Visits Authorized [id number] Authorized PCP Requested Referral 05/05/2023 05/04/2024 1 1 [facility] Summary Purpose Family History Relationship Condition Age at Onset Recorded Date/T han father Malignant neoplasm Unknown Relationship Condition Age at Onset Recorded Date/T han father Malignant neoplasm of lung Unknown sister Diabetes mellitus Unknown Advance Directives Documents on File Type Date Recorded Patient Stubber Expl anation Advance Directive(s) 12/29/2021 9:19 AM Documents on File Type Date Recorded Patient Stubber Expl anation Advance Directive(s) 12/29/2021 9:19 AM Advance Directive Response Recorded Date/ Time Advance Directives No April 16, 2021 11:51am Reason for Referral Specialty Diagnoses / Procedures Referred By Contac t Referred To Contact CT IMAGING Diagnoses Malignant neoplasm of unspecified part of unspecified bronchus or lung (HCC) Cancer of trachea, bronchus, and lung (HCC) Panlobular emphysema (HCC) Procedures CT CHEST W IVCON DIAGNOSTIC COMPUTED TOMOGRAPHY THORAX W/CONTRAST Jaya Bai MD [address] [place] [address] [place] [address] Ct Imaging Referral ID Status Reason Start Date Expiration Date Visits Requested Visits Authorized [id number] Pending Review Auto-Generat ed Referral 03/30/2022 04/01/2023 1 1 Specialty Diagnoses / Procedures Referred By Contac t Referred To Contact CT IMAGING Diagnoses Malignant neoplasm of unspecified part of unspecified bronchus or lung (HCC) Procedures CT CHEST W IVCON DIAGNOSTIC COMPUTED TOMOGRAPHY THORAX W/CONTRAST Jaya Bai MD [address] [place] [address] [place] [address] Ct Imaging Referral ID Status Reason Start Date Expiration Date Visits Requested Visits Authorized [id number] Pending Review Auto-Generat ed Referral 2 05/03/2023 1 1 Specialty Diagnoses / Procedures Referred By Contac t Referred To Contact CT IMAGING Diagnoses Cancer of trachea, bronchus, and lung (HCC) Lung nodules Procedures CT CHEST W IVCON DIAGNOSTIC COMPUTED TOMOGRAPHY THORAX W/CONTRAST Jaya Bai MD [address] [place] [address] [place] [address] Ct Imaging Referral ID Status Reason Start Date Expiration Date Visits Requested Visits Authorized [id number] Authorized Auto-Generat ed Referral 09/15/2022 08/20/2023 1 1 Specialty Diagnoses / Procedures Referred By Contac t Referred To Contact CT IMAGING Diagnoses Malignant neoplasm of unspecified part of unspecified bronchus or lung (HCC) Procedures CT CHEST W IVCON DIAGNOSTIC COMPUTED TOMOGRAPHY THORAX W/CONTRAST Jaya Bai MD [address] [place] [address] [place] [address] [place] [address] Referral ID Status Reason Start Date Expiration Date Visits Requested Visits Authorized [id number] Authorized Auto-Generat ed Referral 11/10/2023 09/09/2024 1 1 Chief Complaint and Reason for Visit Chief Complaint Hx of Colon Polyps Hx of Colon Polyps Reason for Visit Personal history of colonic polyps Chief Complaint Abnormal Finding on GI Tract Additional Source Comments (unrecognized sect ion and content) No Status Records FoundNo Status Records FoundNo Status Records FoundNo Status Records FoundNo Status Records FoundNo Status Records Found INFORMATION SOURCE (unrecogn ized section and content) DATE CREATED AUTHOR 09/24/2021 [facility] DATE CREATED AUTHOR AUTHOR'S ORGANIZ ATION 01/19/2022 [facility] DATE CREATED AUTHOR AUTHOR'S ORGANIZ ATION 01/13/2023 [facility] DATE CREATED AUTHOR AUTHOR'S ORGANIZ ATION 04/06/2023 [facility] DATE CREATED AUTHOR AUTHOR'S ORGANIZ ATION 06/07/2023 [facility] DATE CREATED AUTHOR AUTHOR'S ORGANIZ ATION 08/14/2023 [facility] Source Comments (unrecognize d section and content) In the event this informatio n is protected by the Federal Confidentiality of Alcohol and Drug Abuse Patient Records regulations: The Federal rules restrict any use of the information to criminally investigate or prosecute any alcohol or drug abuse patient.[facility] the event this information is protected by the Federal Confidentiality of Alcohol and Drug Abuse Patient Records regulations: The Federal rules restrict any use of the information to criminally investigate or prosecute any alcohol or drug abuse patient.[facility] the event this information is protected by the Federal Confidentiality of Alcohol and Drug Abuse Patient Records regulations: The Federal rules restrict any use of the information to criminally investigate or prosecute any alcohol or drug abuse patient.[facility] the event this information is protected by the Federal Confidentiality of Alcohol and Drug Abuse Patient Records regulations: The Federal rules restrict any use of the information to criminally investigate or prosecute any alcohol or drug abuse patient.[facility] the event this information is protected by the Federal Confidentiality of Alcohol and Drug Abuse Patient Records regulations: The Federal rules restrict any use of the information to criminally investigate or prosecute any alcohol or drug abuse patient.[facility] the event this information is protected by the Federal Confidentiality of Alcohol and Drug Abuse Patient Records regulations: The Federal rules restrict any use of the information to criminally investigate or prosecute any alcohol or drug abuse patient.[facility] the event this information is protected by the Federal Confidentiality of Alcohol and Drug Abuse Patient Records regulations: The Federal rules restrict any use of the information to criminally investigate or prosecute any alcohol or drug abuse patient.[facility] the event this information is protected by the Federal Confidentiality of Alcohol and Drug Abuse Patient Records regulations: The Federal rules restrict any use of the information to criminally investigate or prosecute any alcohol or drug abuse patient.[facility] the event this information is protected by the Federal Confidentiality of Alcohol and Drug Abuse Patient Records regulations: The Federal rules restrict any use of the information to criminally investigate or prosecute any alcohol or drug abuse patient.[facility] the event this information is protected by the Federal Confidentiality of Alcohol and Drug Abuse Patient Records regulations: The Federal rules restrict any use of the information to criminally investigate or prosecute any alcohol or drug abuse patient.[facility] the event this information is protected by the Federal Confidentiality of Alcohol and Drug Abuse Patient Records regulations: The Federal rules restrict any use of the information to criminally investigate or prosecute any alcohol or drug abuse patient.[facility] the event this information is protected by the Federal Confidentiality of Alcohol and Drug Abuse Patient Records regulations: The Federal rules restrict any use of the information to criminally investigate or prosecute any alcohol or drug abuse patient.[facility] the event this information is protected by the Federal Confidentiality of Alcohol and Drug Abuse Patient Records regulations: The Federal rules restrict any use of the information to criminally investigate or prosecute any alcohol or drug abuse patient.[facility] the event this information is protected by the Federal Confidentiality of Alcohol and Drug Abuse Patient Records regulations: The Federal rules restrict any use of the information to criminally investigate or prosecute any alcohol or drug abuse patient.[facility]In the event this information is protected by the Federal Confidentiality of Alcohol and Drug Abuse Patient Records regulations: The Federal rules restrict any use of the information to criminally investigate or prosecute any alcohol or drug abuse patient.[facility]In the event this information is protected by the Federal Confidentiality of Alcohol and Drug Abuse Patient Records regulations: The Federal rules restrict any use of the information to criminally investigate or prosecute any alcohol or drug abuse patient.[facility]In the event this information is protected by the Federal Confidentiality of Alcohol and Drug Abuse Patient Records regulations: The Federal rules restrict any use of the information to criminally investigate or prosecute any alcohol or drug abuse patient.[facility]In the event this information is protected by the Federal Confidentiality of Alcohol and Drug Abuse Patient Records regulations: The Federal rules restrict any use of the information to criminally investigate or prosecute any alcohol or drug abuse patient.[facility]In the event this information is protected by the Federal Confidentiality of Alcohol and Drug Abuse Patient Records regulations: The Federal rules restrict any use of the information to criminally investigate or prosecute any alcohol or drug abuse patient.[facility]In the event this information is protected by the Federal Confidentiality of Alcohol and Drug Abuse Patient Records regulations: The Federal rules restrict any use of the information to criminally investigate or prosecute any alcohol or drug abuse patient.[facility]In the event this information is protected by the Federal Confidentiality of Alcohol and Drug Abuse Patient Records regulations: The Federal rules restrict any use of the information to criminally investigate or prosecute any alcohol or drug abuse patient.[facility] Reason for Visit (unrecogniz ed section and content) Reason Comments Established Patient Reason Comments Appointment Reason Comments Established Patient Reason Comments Lung Cancer 4 week follow up Reason Comments Results Reason Comments Lung Cancer Reason Comments Consult Reason Comments Lung Cancer 3 week follow up Reason Comments Records faxed Reason Comments Lung Cancer Reason Comments Appointment Confirmation Reason Comments Lung Cancer 1 month follow up Reason Comments Lung Cancer Reason Comments Referral Information GI Reason Comments Orders Care Teams (unrecognized sec tion and content) Team Status: Active Member Role Status Dates Shaikh Lowell MD Primary Care Provider Active Team Status: Inactive Member Role Status Dates Shaikh Lowell MD Primary Care Provider Active Paramjit Spring MD Attending Provider Active Pond Sawyer Relationship Specialty Start Date End Date Shaikh Etienne MD [facility] [place] [address] PCP - General Primary Care 01/13/21 Pond Sawyer Relationship Specialty Start Date End Date Shaikh Etienne MD [address] [place] [address] PCP - General Primary Care 01/13/21 Sydnie Ambrosio MD [address] [place] [address] Shotweld Operator Cardiology 01/04/22 Pond Sawyer Relationship Specialty Start Date End Date Shaikh Etienne MD [address] [place] [address] PCP - General Primary Care 01/13/21 Sydnie Ambrosio MD [address] [place] [address] Shotweld Operator Cardiology 01/04/22 Pond Sawyer Relationship Specialty Start Date End Date Shaikh Etienne MD [address] [place] [address] PCP - General Primary Care 01/13/21 Sydnie Ambrosio MD [address] [place] [address] Shotweld Operator Cardiology 01/04/22 Pond Sawyer Relationship Specialty Start Date End Date Shaikh Etienne MD [address] [place] [address] PCP - General Primary Care 01/13/21 Sydnie Ambrosio MD [address] [place] [address] Shotweld Operator Cardiology 01/04/22 Pond Sawyer Relationship Specialty Start Date End Date Shaikh Etienne MD [address] [place] [address] PCP - General Primary Care 01/13/21 Sydnie Ambrosio MD [address] [facility] [place] [address] Shotweld Operator Cardiology 01/04/22 Pond Sawyer Relationship Specialty Start Date End Date Shaikh Etienne MD [address] [place] [address] PCP - General Primary Care 01/13/21 Sydnie Ambrosio MD [address] [facility] [place] [address] Shotweld Operator Cardiology 01/04/22 Team Status: Inactive Member Role Status Dates Shaikh Lowell MD Primary Care Provider Active Krzysztof Queen DO Attending Provider Active Pond Sawyer Relationship Specialty Start Date End Date Shaikh Etienne MD [address] [place] [address] PCP - General Primary Care 01/13/21 Sydnie Ambrosio MD [address] [facility] [place] [address] Shotweld Operator Cardiology 01/04/22 Maliha Lentz, DO [address] [place] [address] Internal Medicine 09/15/22 Pond Sawyer Relationship Specialty Start Date End Date Shaikh Etienne MD [address] [place] [address] PCP - General Primary Care 01/13/21 Sydnie Ambrosio MD [address] [facility] [place] [address] Shotweld Operator Cardiology 01/04/22 Maliha Lentz, DO [address] [place] [address] Internal Medicine 09/15/22 Pond Sawyer Relationship Specialty Start Date End Date Shaikh Etienne MD [address] [place] [address] PCP - General Primary Care 01/13/21 Sydnie Ambrosio MD [address] [facility] [place] [address] Shotweld Operator Cardiology 01/04/22 Maliha Lentz, DO [address] [place] [address] Internal Medicine 09/15/22 Pond Sawyer Relationship Specialty Start Date End Date Shaikh Etienne MD [address] [place] [address] PCP - General Primary Care 01/13/21 Sydnie Ambrosio MD [address] [facility] [place] [address] Shotweld Operator Cardiology 01/04/22 Maliha Lentz, DO [address] [facility] [place] [address] Internal Medicine 09/15/22 Pond Sawyer Relationship Specialty Start Date End Date Shaikh Etienne MD [address] [place] [address] PCP - General Primary Care 01/13/21 Sydnie Ambrosio MD [address] [facility] [place] [address] Shotweld Operator Cardiology 01/04/22 Maliha Lentz, DO [address] [facility] [place] [address] Internal Medicine 09/15/22 Pond Sawyer Relationship Specialty Start Date End Date Shaikh Etienne MD [address] [place] [address] PCP - General Primary Care 01/13/21 Sydnie Ambrosio MD [address] [facility] [place] [address] Shotweld Operator Cardiology 01/04/22 Maliha Lentz, DO [address] [facility] [place] [address] Internal Medicine 09/15/22 Pond Sawyer Relationship Specialty Start Date End Date Shaikh Etienne MD [address] [place] [address] PCP - General Primary Care 01/13/21 Sydnie Ambrosio MD [address] [place] [address] Shotweld Operator Cardiology 01/04/22 Maliha Lentz DO [address] [place] [address] Internal Medicine 09/15/22 Pond Sawyer Relationship Specialty Start Date End Date Shaikh Etienne MD [address] [place] [address] PCP - General Primary Care 01/13/21 Sydnie Ambrosio MD [address] [place] [address] Shotweld Operator Cardiology 01/04/22 Maliha Lentz DO [address] [place] [address] Internal Medicine 09/15/22 Pond Sawyer Relationship Specialty Start Date End Date Shaikh Etienne MD [address] [place] [address] PCP - General Primary Care 01/13/21 Sydnie Ambrosio MD [address] [place] [address] Shotweld Operator Cardiology 01/04/22 Maliha eLntz DO [address] [place] [address] Internal Medicine 09/15/22 Pond Sawyer Relationship Specialty Start Date End Date Shaikh Etienne MD [address] [place] [address] PCP - General Primary Care 01/13/21 Sydnie Ambrosio MD [address] [place] [address] Shotweld Operator Cardiology 01/04/22 Maliha Lentz DO [address] [place] [address] Internal Medicine 09/15/22 Pond Sawyer Relationship Specialty Start Date End Date Shaikh Etienne MD [address] [place] [address] PCP - General Primary Care 01/13/21 Sydnie Ambrosio MD [address] [place] [address] Shotweld Operator Cardiology 01/04/22 Maliha Lentz DO [address] [place] [address] Internal Medicine 09/15/22 Pond Sawyer Relationship Specialty Start Date End Date Shaikh Etienne MD [address] [place] [address] PCP - General Internal Medicine 08/19/22 FOR RECORDS PERTAINING TO PATIENTS WHO ARE OR HAVE BEEN ENROLLED IN A CHEMICAL DEPENDENCY/SUBSTANCEABUSE PROGRAM, SOME INFORMATION MAY BE OMITTED. This clinical summary was aggregated from multiple sources. Caution should be exercised in using it in the provision of clinical care. This summary normalizes information from multiple sources, and as a consequence, information in this document may materially change the coding, format and clinical context of patient data. In addition, data may be omitted in some cases. CLINICAL DECISIONS SHOULD BE BASED ON THE PRIMARY CLINICAL RECORDS. [facility]. provides no warranty or guarantee of the accuracy or completeness of information in this document.
[2023-10-02 15:02] LABS: Basophils Absolute Auto 0.1 10^3/uL (0.0-0.1); Basophils Percent Auto 0.7 % (0.2-2.0); Eosinophils Absolute Auto 0.5 10^3/uL (0.0-0.7); Eosinophils Percent Auto 5.2 % (0.9-7.0); Hematocrit 38.3 % (42.0-54.0); Hemoglobin 12.4 g/dL (14.0-18.0); Immature Granulocytes Abs Auto 0.06 10^3/uL (0.00-0.03); Immature Granulocytes Pct Auto 0.7 % (0.0-0.5); Lymphocytes Absolute Auto 1.7 10^3/uL (1.2-3.8); Lymphocytes Percent Auto 19.7 % (20.5-60.0); Mean Corpuscular HGB Conc 32.4 g/dL (29.9-35.2); Mean Corpuscular Hemoglobin 30.5 pg (25.9-34.0); Mean Corpuscular Volume 94.3 fL (80.0-94.0); Mean Platelet Volume 9.3 fL (9.5-13.5); Monocytes Absolute Auto 1.3 10^3/uL (0.3-0.8); Monocytes Percent Auto 15.1 % (1.7-12.0); Neutrophils Absolute Auto 5.2 10^3/uL (1.4-6.5); Neutrophils Percent Auto 58.6 % (43.0-75.0); Platelet Count 254 10^3/uL (150-450); Red Blood Count 4.06 10^6/uL (4.70-6.10); Red Cell Distribution Width 13.2 % (11.0-15.0); White Blood Count 8.8 10^3/uL (4.0-11.0)
[2023-10-02 15:07] LABS: Alanine Aminotransferase 17 U/L (16-63); Albumin Globulin Ratio 0.8; Albumin Level 3.4 g/dL (3.4-5.0); Alkaline Phosphatase 92 U/L (46-116); Anion Gap 10.6; Aspartate Amino Transferase 16 U/L (15-37); BUN Creatinine Ratio 13.8; Bilirubin Total 0.3 mg/dL (0.2-1.0); Calcium 8.7 mg/dL (8.5-10.1); Carbon Dioxide 29.4 mmol/L (21.0-32.0); Chloride 106 mmol/L (98-107); Chol HDL Ratio 2.9; Cholesterol 120 mg/dL (<=200); Estimated GFR (African America >60 (>=60); Estimated GFR (Non-African Ame >60 (>=60); Globulin 4.4 g/dL; Glucose 97 mg/dL (74-106); HDL Cholesterol 41 mg/dL (40-60); LDL Cholesterol Calculated 54.8 mg/dL; Sodium 142 mmol/L (136-145); Total Protein 7.8 g/dL (6.4-8.2); Triglycerides 121 mg/dL (<=150); VLDL CHOLESTEROL 24.2 mg/dL
== END 2023-10-02 14:14 | disposition home or self-care (01) ==
LOC: LAB 14:14
PROVIDERS: PCP Internal Medicine; Visit Provider Internal Medicine
DX: J43.1 Panlobular emphysema (principal); I77.810 Thoracic aortic ectasia; C34.91 Malignant neoplasm of unspecified part of right bronchus or lung; I50.22 Chronic systolic (congestive) heart failure; F33.41 Major depressive disorder, recurrent, in partial remission; E78.5 Hyperlipidemia, unspecified
CPT/HCPCS: 36415; 80053; 80061; 85025

== ENCOUNTER 2024-01-01 16:22 | Outpatient (OUT) | payer MEDICARE, MEDICAID, SELFPAY ==
--- NOTE | 2024-01-01 17:26 | XR_ITS ---
The [address] [address] Patient Name: ALESSIO BURNS MRN: [id number] date: 1950 Sex: M Assigned Patient Location: RAD Current Patient Location: [facility] Accession/Order Number: [id number] Exam Date: 01/01/2024 17:35 Report Date: 01/01/2024 19:05 At the request of: SHAIKH YARI Procedure: XR tibia fibula LT 2V EXAM: XR tibia fibula LT 2V HISTORY: left leg pain M79.605 . Injury anteriorly. COMPARISON: None. TECHNIQUE: 2 views of the tibia and fibula were obtained. FINDINGS: AP and lateral views of the tibia and fibula demonstrate no evidence of an acute fracture or dislocation. No significant osseous abnormality is identified. The joint spaces are intact. An osteophyte arises from the insertion site of the Achilles tendon. Vascular surgical clips are present in the soft tissues as well as some calcification of the arteries. XR/XR tibia fibula LT 2V IMPRESSION: No evidence of an acute fracture or dislocation. The joint spaces are intact. Surgical clips and soft tissue calcifications are noted. Electronically authenticated by: ESTHELA NAIR Date: 01/01/2024 19:05
== END 2024-01-01 16:23 | disposition home or self-care (01) ==
PROVIDERS: PCP Internal Medicine; Visit Provider Internal Medicine
DX: M79.605 Pain in left leg (principal)
CPT/HCPCS: 73590

== ENCOUNTER 2024-02-27 12:54 | Outpatient (OUT) | payer MEDICARE, MEDICAID, SELFPAY ==
--- NOTE | 2024-02-27 | CT_ITS ---
The [address] [address] Patient Name: ALESSIO BURNS MRN: [id number] date: 1950 Sex: M Assigned Patient Location: CT Current Patient Location: CT Accession/Order Number: [id number] Exam Date: 02/27/2024 13:06 Report Date: 02/27/2024 14:40 At the request of: SHAIKH YARI Procedure: CT head/brain wo con EXAM: CT head/brain wo con HISTORY: TRAUMATIC INJURY OF HEAD S09.90XA COMPARISON: None. TECHNIQUE: Axial CT scans through the head were obtained without IV contrast administration. Dose reduction techniques were achieved by using: automated exposure control and/or adjustment of mA and /or kV according to patient size and/or use of iterative reconstruction technique. FINDINGS: There is no evidence of acute intracranial hemorrhage or abnormal extra-axial fluid collection. No mass effect or midline shift is seen. There is no evidence of large acute territorial infarction. There is no hydrocephalus. The cortical sulci and ventricles are within normal limits for the age. To the limit of CT, the posterior fossa appears unremarkable. There are mild atherosclerotic calcifications of bilateral cavernous carotid arteries There is mildly displaced left nasal bone fracture. There are surgical alysha along the right inferior and lateral orbital wall. The visualized orbits show no abnormality. There is near complete opacification of partially visualized right maxillary sinus with fluid density and mucoperiosteal thickening of bilateral frontal, left maxillary sinuses and ethmoid air cells. Mastoid air cells are clear. CT/CT head/brain wo con IMPRESSION: No CT evidence of acute intracranial abnormality. Age indeterminate mildly displaced left nasal bone fracture. Partially visualized postsurgical changes along the right inferior and lateral orbital wall. Paranasal sinus disease, as described. Recommend clinical correlation for acute sinusitis. Electronically authenticated by: GIORGIO HI Date: 02/27/2024 14:40
--- OUTSIDE RECORDS SUMMARY | 2024-02-27 13:13 | XMS_ITS ---
Patient Summarization (C-CDA 2.1 CCD) Created on: February 27, 2024 ALESSIO BURNS : 1950 Sex: Male Author Organization Sample organization Care Team Providers Care Last Inserter Name Role Phone Shaik Etienne MDh Primary Care Provider Sydnie Ambrosio MD Unavailable [phone] MD Ivette Etienneikh Primary Care Provider DO Krzyzstof Queen Attending Provider [phone] [facility] Sydnie Ambrosio MD Unavailable Maliha Lentz DO Unavailable [phone] [facility] Primary Care Unavailable MISC, DR CALLOWAY Attending Unavailable MISC, DR CALLOWAY Consulting Unavailable MISC, DR CALLOWAY Admitting Unavailable MOUKARBEL, DR OTOOLE Admitting Unavailable [facility] Primary Care Unavailable MOUKARBEL, DR OTOOLE Attending Unavailable MOUKARBEL, DR OTOOLE Consulting Unavailable [facility] Primary Care Unavailable MOUKARBEL, DR OTOOLE Attending Unavailable MOUKARBEL, DR OTOOLE Consulting Unavailable MOUKAGEMINIEL, DR OTOOLE Admitting Unavailable Sydnie Ambrosio MD Unavailable MD Ivette Etienneikh Primary Care Provider MD Paramjit Spring Attending Provider Paramjit Spring Attending Unavailable Paramjit Spring Admitting Unavailable Lowell [facility] Primary Care Unavailable Tavo Hull Unavailable Shaik Etienne MDh Primary Care Provider SYDNIE AMBROSIO Attending Unavailable KUN ORTA Attending Unavailable SYDNIE AMBROSIO Attending Unavailable Shaikh Etienne MD Primary Care Provider ABHYANKAR, JAYA Attending Unavailable [facility] Primary Care Unavailable [facility], [facility] Primary Care Unavailable ABHYANKAR, JAYA Attending Unavailable [facility], [facility] Primary Care Unavailable ABHYANKAR, JAYA Referring Unavailable [facility], [facility] Primary Care Unavailable ABHYANKAR, JAYA Referring Unavailable [facility], [facility] Primary Care Unavailable ABHYANKAR, JAYA Attending Unavailable [facility], [facility] Primary Care Unavailable ABHYANKAR, JAYA Referring Unavailable [facility], [facility] Primary Care Unavailable ABHYANKAR, JAYA Attending Unavailable ABHYANKAR, JAYA Referring Unavailable [facility], [facility] Primary Care Unavailable ABHYANKAR, JAYA Referring Unavailable FAWWAD, Attending Unavailable LOWELL, Attending Unavailable LUISA CORTES Attending Unavailable LUISA CORTES Referring Unavailable LUISA CORTES Attending Unavailable LOWELL, Attending Unavailable Encounters Encounter Date Encounter Type Care Provider Facility Start: 02-26-2024 End: 02-26-2024 ambulatory SHAIKH LOWELL Not Available Start: 02-23-2024 End: 02-23-2024 ambulatory JAYA ABHYANKAR Facility:[facility] Start: 01-31-2024 End: 01-31-2024 ambulatory LUISA CORTES Not Available Start: 01-11-2024 End: 01-11-2024 ambulatory LUISA CORTES Not Available Start: 01-10-2024 End: 01-10-2024 ambulatory LUISA CORTES Not Available Start: 01-01-2024 End: 01-01-2024 ambulatory SHAIKH LOWELL Not Available Start: 11-20-2023 ambulatory Natacha Hutchinson aishwarya [facility] Work Phone: Hematology/Oncology Start: 11-17-2023 End: 11-17-2023 ambulatory JAYA ABHYANKAR Facility:[facility] Start: 11-17-2023 End: 11-17-2023 Office outpatient visit 25 minutes Jaya Bai MD Work Phone: Hematology/Oncology Comment on above: Lower abdominal pain (Primary Dx); Malignant neoplasm of upper lobe of right lung (HCC) Start: 11-13-2023 Telephone encounter Wilmer Mcgee Hematology/Oncology Comment on above: Results Start: 11-10-2023 End: 11-10-2023 ambulatory SHAIKH LOWELL Facility:[facility] Start: 10-08-2023 Refill Shaikh Lowell HEAD Work Phone: [facility] Comment on above: 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) Start: 10-06-2023 End: 10-06-2023 ambulatory [facility] Start: 10-02-2023 Patient encounter procedure Shaikh Lowell HEAD Work Phone: [facility] Start: 10-02-2023 End: 10-02-2023 ambulatory SHAIKH LOWELL Not Available Start: 08-18-2023 Telephone encounter Livier Wolfe RN [facility] Start: 08-14-2023 End: 08-14-2023 ambulatory Tavo Hull Other [facility] Other Start: 08-14-2023 Office outpatient vi sit 15 minutes Tavo Hull [facility] Gastroenterology Start: 08-11-2023 End: 08-11-2023 [facility] Start: 08-11-2023 End: 08-11-2023 Office outpatient visit 25 minutes Jaya Bai MD Work Phone: Hematology/Oncology Comment on above: Malignant neoplasm o f unspecified part of unspecified bronchus or lung (HCC) (Primary Dx) Start: 08-11-2023 Telephone encounter Arabella mills RN Hematology/Oncology Comment on above: Orders Start: 08-04-2023 End: 08-04-2023 ambulatory SHAIKH LOWELL Facility:[facility] Start: 05-30-2023 End: 05-30-2023 ambulatory Paramjit Spring Facility:[facility] Start: 05-30-2023 End: 05-30-2023 Admission to same day surgery center MD Shaikh Etienne Work Phone: [facility] Work Phone: Start: 05-30-2023 End: 05-30-2023 ambulatory MD Shaikh Etienne Work Phone: [facility] Work Phone: Start: 05-05-2023 End: 05-05-2023 ambulatory JAYA BAI Facility:[facility] Start: 05-05-2023 End: 05-05-2023 Office outpatient visit 25 minutes Jaya Bai MD Work Phone: Hematology/Oncology Comment on above: Abnormal finding on GI tract imaging (Primary Dx); Malignant neoplasm of unspecified part of unspecified bronchus or lung (HCC) Start: 05-05-2023 Telephone encounter [facility]aya [facility]ones MD [facility] Comment on above: Referral Information (GI) Start: 04-28-2023 End: 04-28-2023 ambulatory SHAIKH LOWELL Facility:[facility] Start: 04-05-2023 End: 04-05-2023 ambulatory [facility] Start: 03-03-2023 End: 03-03-2023 ambulatory JAYA BAI Facility:[facility] Start: 03-03-2023 End: 03-03-2023 Office outpatient visit 25 minutes Jaya Bai MD Work Phone: Hematology/Oncology Comment on above: Malignant neoplasm o f unspecified part of unspecified bronchus or lung (HCC) (Primary Dx); Lung nodules Start: 01-06-2023 End: 01-07-2023 ambulatory SHAIKH oJb ETIENNE Facility:[facility] Start: 01-04-2023 End: 01-04-2023 Office outpatient visit 25 minutes Jaya Bai MD Work Phone: Hematology/Oncology Comment on above: Malignant neoplasm o f unspecified part of unspecified bronchus or lung (HCC) (Primary Dx) Start: 01-02-2023 End: 01-02-2023 ambulatory [facility] Start: 11-22-2022 Telephone encounter Jaya jones MD [facility] Comment on above: Appointment Confirma tion Start: 11-22-2022 End: 11-22-2022 ambulatory Jaya Bai MD Work Phone: Hematology/Oncology Comment on above: Malignant neoplasm o f unspecified part of unspecified bronchus or lung (HCC) (Primary Dx); Lung nodules; Positive TB test; Non-caseating granuloma Start: 11-22-2022 End: 11-22-2022 Telemedicine consultation with patient Jaya Bai MD Work Phone: [facility] Start: 11-01-2022 Telephone encounter Jaya jones MD Work Phone: Hematology/Oncology Comment on above: Records faxed Start: 10-07-2022 End: 10-07-2022 Office outpatient visit 25 minutes Jaya Bai MD Work Phone: Hematology/Oncology Comment on above: Malignant neoplasm o f unspecified part of unspecified bronchus or lung (HCC) (Primary Dx) Start: 09-19-2022 Telephone encounter Evangelina Sim RN Hematology/Oncology Comment on above: Results Start: 09-15-2022 Telephone encounter Jaya jones MD [facility] Comment on above: Appointment Consult Start: 07-21-2022 End: 07-21-2022 ambulatory Jaya Bai MD Work Phone: Hematology/Oncology Comment on above: Cancer of trachea, b ronchus, and lung (HCC) (Primary Dx); Lung nodules; Panlobular emphysema (HCC) Start: 07-21-2022 End: 07-21-2022 Patient encounter procedure Jaya Bai MD Work Phone: [facility] Start: 04-14-2022 End: 04-14-2022 Patient encounter procedure MD Shaikh Etienne Work Phone: [facility] Start: 04-01-2022 Telephone encounter Evangelina Sim RN Hematology/Oncology Comment on above: Results Start: [...] encounter Jaya jones MD [facility] Comment on above: Appointment Start: 02-25-2022 End: 02-26-2022 ambulatory SHAIKH Job ETIENNE Facility:[facility] Start: 01-06-2022 End: 01-07-2022 Patient encounter procedure Bj Mota MD Work Phone: General Surgery Comment on above: Liver mass (Primary Dx) Start: 01-05-2022 End: 01-05-2022 Admission to [place] [id number] Work Phone: [place] Start: 01-05-2022 End: 01-05-2022 ambulatory [facility] 3 Work Phone: Pre Anesthesia Comment [...] Start: 01-05-2022 End: 01-05-2022 Preprocedural examination done Pac 3 Work Phone: Pre Anesthesia Start: 12-17-2021 End: 12-20-2021 ambulatory Jaya Bai MD Work Phone: Hematology/Oncology Comment on above: Cancer of trachea, b ronchus, and lung (HCC) (Primary Dx); Liver mass, right lobe Start: 12-17-2021 End: 12-20-2021 Telemedicine consultation with patient Jaya Bai MD Work Phone: [facility] Goals Date Patient Goal Desired Activity /State Medications Current Medications Medication Drug Class(es) Dates Sig (Normalized) Sig (Original) [id number] 200 actuat albuterol 0.09 mg/actuat metered dose inhaler (20 sources) beta2-Adrenergic Agonist Start: 09-05-2023 take 2 puff(s) by inhalation every four hours for wheezing Ventolin HFA 108 (90 Base) MCG/ACT inhaler Inhale 2 puffs every 4 (four) hours if needed for shortness of breath or wheezing 0 09/05/2023 Active Start: 08-26-2023 albuterol (2.5 MG/3ML) 0.083% nebulizer solution Take 3 mL by nebulization every 4 (four) hours if needed for wheezing or shortness of breath 0 08/26/2023 Active Start: 04-18-2022 take 2.5 mg by inhal [...] Q4H April 18, 2022 12:00am Start: 10-29-2021 Albuterol Sulf ate 1.25 mg/3 mL nebulizer solution Indications: Cancer of trachea, bronchus, and lung (HCC) , Panlobular emphysema (HCC) Use 1 Ampule via nebulizer every 6 hours as needed for wheezing/shortness of breath. 120 Ampule 2 10/29/2021 Active Start: 10-29-2021 take 1.25 mg by inha lation every six hours as needed albuterol (ACCUNEB) 1.25 mg/3 mL nebulizer solution Inhale 3 mL (1.25 mg total) every 6 (six) hours as needed. 0 10/29/2021 Active take 2 puff(s) by mo uth every four to six hours as needed for wheezing albuterol HFA (PROVENTIL HFA, VENTOLIN HFA) 90 mcg/actuation inhaler albuterol sulfate HFA 90 mcg/actuation aerosol inhaler INHALE 2 PUFFS BY MOUTH EVERY 4 TO 6 HOURS NEEDED for shortness of breath and FOR WHEEZING 0 Active take 2 puff(s) by in halation every four hours as needed albuterol (PROVENTIL HFA;VENTOLIN HFA) 90 mcg/actuation inhaler Inhale 2 puffs every 4 (four) hours as needed. 0 Active Albuterol Sulfat e 2.5 MG/0.5ML as directed Inhalation Active Comment on above: albuterol sulfate HF A 90 mcg/actuation aerosol inhaler INHALE 2 PUFFS BY MOUTH EVERY 4 TO 6 HOURS NEEDED for shortness of breath and FOR WHEEZING Use 1 Ampule via neb ulizer every 6 hours as needed for wheezing/shortness of breath. amitriptyline hydrochloride 50 mg oral tablet (7 sources) Tricyclic Antidepressant Start: 09-21-19 take 1 tablet by mouth once daily at bedtime amitriptyline (Elavil) 50 MG tablet Indications: Insomnia, unspecified TAKE 1 TABLET BY MOUTH EVERY DAY AT BEDTIME 30 tablet 0 09/21/2023 Active Start: 06-28-2023 End: 11-20-2023 take 1 tablet by mouth once daily at bedtime amitriptyline (ELAVIL) 25 mg tablet Take 25 mg by mouth daily at bedtime. 0 06/28/2023 11/20/2023 Discontinued Start: 05-30-2023 take 25 mg by mouth once daily Amitriptyline Active 25 MG PO Daily May 30, 2023 12:00am Comment on above: Take 25 mg by mouth daily at bedtime. amLODIPine 10 mg oral tablet (20 sources) Dihydropyridine Calcium Channel Dia Start: take 1 tablet by mouth in the morning amLODIPine (Norvasc) 10 MG tablet Take 1 tablet by mouth in the morning. 0 08/23/2023 Active Start: 04-18-2022 take 10 mg by mouth once daily Amlodipine Active 10 MG PO Daily April 18, 2022 12:00am Start: 04-18-2022 take 10 mg by mouth once daily Amlodipine Active 10 MG PO Daily April 18, 2022 12:00am Start: 08-12-2021 take 1 tablet by lindsey th once daily amLODIPine (NORVASC) 10 mg tablet [...] 12:00am take 1 tablet by lindsey th at bedtime atorvastatin (LIPITOR) 40 mg tablet atorvastatin 40 mg tablet TAKE 1 TABLET BY MOUTH AT BEDTIME 0 Active Comment on above: atorvastatin 40 mg [...] a day for 14 days Jun, Active Fluticasone-Umeclidin -Vilant (Trelegy Ellipta) 200-62.5-25 MCG/ACT aerosol powder (1 source) Start: End: 024 take 1 puff(s) by inhalation in the morning Fluticasone-Umeclidi n-Vilant (Trelegy Ellipta) 200-62.5-25 MCG/ACT aerosol powder Indications: Chronic obstructive pulmonary disease, unspecified (CMS/HCC) Inhale 1 puff in the morning. 3 each 0 08/24/2023 11/22/2023 Active Fluticasone-Umeclidin -Vilanter (1 source) Start: Fluticasone-Umeclidi n-Vilanter (Trelegy Ellipta) 200-62.5-25 mcg blister with device Active 1 INH INHALATION Daily May 30, 2023 12:00am fluticasone-umeclidin -vilanter (TRELEGY ELLIPTA) 200-62.5-25 mcg blister with device (1 source) Start: 023 take 1 puff(s) by inhalation once daily fluticasone-umeclidi n-vilanter (TRELEGY ELLIPTA) 200-62.5-25 mcg blister with device Indications: Chronic obstructive pulmonary disease, unspecified COPD type ([facility]) Inhale 1 puff once daily. 60 each 11 08/17/2023 Active furosemide 40 mg oral tablet (20 sources) Loop Diuretic Start: 021 take 1 tablet by mouth in the morning furosemide (Lasix) 40 MG tablet Take 1 tablet by mouth in the morning. 0 08/23/2023 Active Comment on above: furosemide 40 mg tab let TAKE 1 TABLET BY MOUTH DAILY 24 hr metoprolol succinate 100 mg extended release oral tablet (20 sources) beta-Adrenergic Dia Start: 023 take 1 tablet by mouth every twenty-four hours in the morning metoprolol succinate XL (Toprol-XL) 100 MG 24 hr tablet Take 1 tablet by mouth in the morning. 0 08/23/2023 Active Start: 04-22-2021 take 100 mg by mouth once bruna y Metoprolol Succinate Active 100 MG PO Daily April 22, 2021 12:00am take 1 tablet by lindsey th every twenty-four hours in the evening metoprolol succinate XL (TOPROL XL) 50 mg 24 hr tablet Take 1 tablet (50 mg total) by mouth in the evening. 0 Active take 1 capsule by mo uth once daily Metoprolol Succinate 100 MG 1 capsule Orally Once a day Active take 1 tablet by lindsey th once daily metoprolol succinate ER (TOPROL XL) 50 mg [...] tablet (20 sources) Nitrate Vasodilator Start: 04-18-2022 nitroglycerin (Nitrostat) 0.[address] 0.4 mg under the tongue every 5 (five) minutes if needed for chest pain (DISSOLVE 1 (ONE) TABLET UNDER THE TONGUE EVERY 15 MINUTES NEEDED; max 3 (THREE) doses in 24 HOURS) 0 12/22/2022 Active Start: 04-18-2022 Nitroglycerin Active 0.4 MG SUBLINGUAL EVERY 5 MINUTES April 18, 2022 12:00am nitroglycerin whelan blingual (NITROQUICK) 0.4 mg SL tablet nitroglycerin 0.4 [...] 3 DOSES.- IF NO RELIEF CALL 911) microencapsulated potassium chloride 10 meq extended release oral tablet (20 sources) Start: 08-24-20 take 1 tablet by mouth once daily potassium chloride CR (Klor-Con M10) 10 MEQ ER tablet Indications: Hypokalemia TAKE 1 TABLET BY MOUTH EVERY DAY 30 tablet 0 08/24/2023 Active Start: 04-18-2022 take 10 mEq by mouth once bruna y Potassium Chloride Active 10 MEQ PO Daily April 18, 2022 12:00am Start: 04-18-2022 take 10 mEq by mouth once bruna y Potassium Chloride Active 10 MEQ PO Daily April 18, 2022 12:00am Start: 10-25-2021 potassium chlo ride ER (K-DUR, KLOR-CON) 20 mEq tablet Take 10 mEq by mouth once daily. 0 10/25/2021 Active Start: 10-25-2021 take 1 tablet by lindsey th in the morning potassium chloride (KLOR-CON M 20) 20 MEQ CR tablet Take 1 tablet (20 mEq total) by mouth in the morning. 0 10/25/2021 Active Potassium Chlori de Active Comment on above: Take 20 mEq by mouth once daily. Take 10 mEq by mouth once daily. sacubitril 97 mg / valsartan 103 mg oral tablet (20 sources) Angiotensin 2 Receptor Dia Start: 08-23-2023 take 1 tablet by mouth in the morning Entresto 97-103 MG tablet Take 1 tablet by mouth in the morning and 1 tablet before bedtime. 0 08/23/2023 Active Start: 04-22-2021 take 1 tablet by lindsey th once daily Sacubitril-Valsartan (Entresto) 97-103 mg tablet Active 1 TAB PO Daily April 22, 2021 12:00am take 1 tablet by lindsey th twice daily sacubitril-valsartan (ENTRESTO) 97-103 mg tablet Entresto 97 mg-103 mg tablet TAKE 1 TABLET BY MOUTH TWICE DAILY 0 Active Comment on above: Entresto 97 mg-103 m g tablet TAKE 1 TABLET BY MOUTH TWICE DAILY sildenafil 50 mg oral tablet (20 sources) Phosphodiesterase 5 Inhibitor Start: 09-28-2023 sildenafil (Viagra) 50 MG tablet Indications: Male erectile dysfunction, unspecified TAKE 1 TABLET BY MOUTH 1 HOUR BEFORE SEXUAL ACTIVITY NEEDED. 30 tablet 0 09/28/2023 Active Start: 04-18-2022 take 25 mg by mouth once daily Sildenafil Active 25 MG PO Daily April 18, 2022 12:00am Start: 04-18-2022 take 25 mg by mouth once daily Sildenafil Active 25 MG PO Daily April 18, 2022 12:00am sildenafil (VIAG RA) 25 mg tablet sildenafil 25 mg tablet [...] / oxyCODONE hydrochloride 5 mg oral tablet (19 sources) Opioid Agonist Start: 03-29-2022 End: 11-20-2023 take 1 tablet by mouth every twelve hours as needed for pain oxyCODONE-acetamin ophen (PERCOCET) 5-325 mg tablet TAKE 1 TABLET BY MOUTH EVERY 12 HOURS NEEDED FOR PAIN 0 03/29/2022 11/20/2023 Discontinued Comment on above: TAKE 1 TABLET BY LINDSEY TH EVERY 12 HOURS NEEDED FOR PAIN 120 actuat budesonide 0.16 mg/actuat / formoterol fumarate 0.0045 mg/actuat metered dose inhaler (20 sources) Corticosteroid, beta2-Adrenergic Agonist Start: 04-22-2021 End: 05-30-2023 take 1 puff(s) by inhalation twice daily Budesonide-Formote rol (Symbicort) 160-4.5 mcg/actuation HFA aerosol inhaler Discontinued 2 PUFF INHALATION Twice daily April 22, 2021 12:00am May 30, 2023 12:44pm End: 11-20-2023 take 2 puff(s) by mouth twice daily budesonide-formoterol (SYMBICORT) 160-4.5 mcg/actuation inhaler Symbicort 160 mcg-4.5 mcg/actuation HFA aerosol inhaler INHALE 2 PUFFS BY MOUTH TWICE DAILY 0 11/20/2023 Discontinued take 2 puff(s) by mo uth twice daily budesonide-formoterol (SYMBICORT) 160-4.5 mcg/actuation inhaler Symbicort 160 mcg-4.5 mcg/actuation HFA aerosol inhaler INHALE 2 PUFFS BY MOUTH TWICE DAILY 0 Active Comment on above: Symbicort 160 mcg-4. 5 mcg/actuation HFA aerosol inhaler INHALE 2 PUFFS BY MOUTH TWICE DAILY busPIRone hydrochloride 15 mg oral tablet (20 sources) Start: take 1 tablet by mouth three times [...] (20 sources) P2Y12 Platelet Inhibitor Start: End: 4 take 1 tablet by mouth once daily clopidogrel (PLAVIX) 75 mg tablet Take 1 tablet by mouth once daily for 15 days. 15 tablet 0 03/03/2023 Active Comment on above: clopidogrel 75 mg ta blet TAKE 1 TABLET BY MOUTH ONCE DAILY Take 1 tablet by lindsey th once daily for 15 days. enteric contrast (will be provided with radiology test) (3 sources) Start: 4 enteric contrast (will be provided with radiology test) Indications: Malignant neoplasm of upper lobe of right lung (HCC) For CT CHESTABD/PEL W IVCON Routine order Administer, As Directed One Time Only, via Oral, Rectal, both Oral and Rectal, Enteric Tube, Stoma or Indwelling Catheter, Enteric Contrast as designated per enteric contrast guidelines 1 Each 0 11/17/2023 Active Start: 09-19-2022 End: 09-20-2022 enteric contrast (will be pr ovided with radiology test) Indications: Malignant neoplasm of [...] Contrast as designated per enteric contrast guidelines iv contrast (will be provided with radiology test) (8 sources) Start: 11-17-2023 iv contrast (will be provided with radiology test) Indications: Malignant neoplasm of upper lobe of right lung (HCC) CT Chest ABD/PEL-Inject, intravenously, once [...] contrast administration guidelines link. 1 Each 0 11/17/2023 Active Start: 08-11-2023 End: 08-12-2023 iv contrast (will be provide d with radiology test) CT Chest W -Inject, [...] in the CT contrast administration guidelines link. levoFLOXacin 750 mg oral tablet (20 sources) Quinolone Antimicrobial Start: 022 End: 024 take 1 tablet by mouth once daily levoFLOXacin (LEVAQUIN) 750 mg tablet Take 750 mg by mouth once daily. 0 10/25/2021 11/20/2023 Discontinued Comment on above: Take 750 mg by mouth once daily. linaclotide 0.145 mg oral capsule (3 sources) Guanylate Cyclase-C Agonist Start: End: take 1 capsule by mouth before mealtime LINZESS 145 mcg capsule TAKE 1 CAPSULE BY MOUTH IN THE MORNING BEFORE MEALS DO NOT CRUSH OR CHEW 0 10/27/2023 Active Comment on above: TAKE 1 CAPSULE BY MO UTH IN THE MORNING BEFORE MEALS DO NOT CRUSH OR CHEW magnesium citrate 58.2 mg/ml oral solution (2 sources) Start: End: take 296 mL by mouth once magnesium citrate solution Take 296 mL by mouth one time only for 1 dose. 296 mL 0 08/11/2023 08/11/2023 Comment on above: Take 296 mL by mouth one time only for 1 dose. metroNIDAZOLE 250 mg oral tablet (6 sources) Nitroimidazole Antimicrobial Start: End: take 1 tablet by mouth four times daily metroNIDAZOLE (FLAGYL) 250 mg tablet Take 250 mg by mouth four times daily. 0 06/16/2023 11/20/2023 Discontinued Comment on above: Take 250 mg by mouth four times daily. Nebulizer and Compressor For Neb (20 sources) Start: Nebulizer and Compressor For Neb Indications: Cancer of trachea, bronchus, and lung (HCC) , Panlobular emphysema (HCC) 1 Each three times daily as needed. 1 Each 0 10/29/2021 Active Comment on above: 1 Each three times d aily as needed. omeprazole 40 mg delayed release oral capsule (9 sources) Proton Pump Inhibitor Start: End: omeprazole (PRILOSEC) 40 mg capsule TAKE 1 CAPSULE BY MOUTH TWICE DAILY (30 MINUTES BEFORE morning meal & IN THE EVENING) 0 07/25/2023 11/20/2023 Discontinued Start: 05-30-2023 take 40 mg by mouth once daily Omeprazole Active 40 MG PO Daily May 30, 2023 12:00am Comment on above: TAKE 1 CAPSULE BY MO UTH TWICE DAILY (30 MINUTES BEFORE morning meal & IN THE EVENING) penicillin v potassium 500 mg oral tablet (19 sources) Start: 03-29-20 End: 11-20-19 take 1 tablet by mouth four times daily penicillin V potassium (V-CILLIN, VEETIDS) 500 mg tablet Take 500 mg by mouth four times daily. 0 03/29/2022 11/20/2023 Discontinued Comment on above: Take 500 mg by mouth four times daily. predniSONE 20 mg oral tablet (20 sources) Start: 10-25-19 End: 11-20-19 24 take 2 tablets by mouth once daily at mealtime predniSONE (DELTASONE) 20 mg tablet Take 40 mg by mouth daily with food. 0 10/25/2021 11/20/2023 Discontinued Comment on above: Take 40 mg by mouth daily with food. spironolactone 25 mg oral tablet (13 sources) Aldosterone Antagonist Start: 04-18-20 spironolactone (ALDACTONE) 25 mg tablet Start: 04-18-2022 take 25 mg by mouth once daily Spironolactone Active 25 MG PO Daily April 18, 2022 12:00am Spironolactone 2 5 MG 1 tablet Orally Active TRELEGY ELLIPTA 200-62.5-25 mcg inhalation powder (13 sources) Start: 09-09-2022 take 1 puff(s) by [...] 12:00am zolpidem tartrate 10 mg oral tablet (10 sources) gamma-Aminobutyric Acid-ergic Agonist Start: 12-07-2022 End: 11-20-2023 take 10 mg by mouth once daily zolpidem (AMBIEN) 10 mg Take 10 mg by mouth once daily. 0 12/07/2022 11/20/2023 Discontinued Comment on above: Take 10 mg by mouth once daily. Payers Date Payer Category Payer Self-pay [id number] 2021 Medicaid [place] [id number] 2021-Present [phone] [address] [place] [address] Medicaid [id number] 2017 Medicaid [id number] 2016 Medicare MEDICARE MEDICAR E A AND B [id number] 2016-Present [phone] [address] [address] [place] [address] Medicare [id number] 2016 Medicare [id number] 1959 Medicaid [id number] 1959 Medicare [id number] 1951 Unknown [id number] 1951 Unknown [id number] 1951 Unknown [id number] 1951 Unknown [id number] 1951 Unknown [id number] 1951 Unknown [id number] 1951 Unknown [id number] 1951 Unknown [id number] 1951 Unknown [id number] Unknown [id number] Plan of Treatment Date Care Activity Detail Author Start: 04-18-2032 Screening for malign ant neoplasm of colon [facility] Start: 11-09-2026 Diabetes Screening Diabetes [facility] Start: 08-04-2026 Diabetes Screening Diabetes [facility]in [facility] Start: 04-28-2026 Diabetes Screening Diabetes Screenin g [facility] Start: 01-04-2026 DIABETES SCREEN DIABETES SCREEN [facility] Start: 10-07-2025 DIABETES SCREEN DIABETES SCREEN [facility] Start: 09-15-2025 DIABETES SCREEN DIABETES SCREEN [facility] Start: 07-14-2025 [facility]ABET[facility] SCREEN [facility] Start: 03-31-2025 DIABETES SCREEN [facility] Start: 01-05-2025 DIABETES SCREEN [facility] Start: 12-10-2024 DIABETES SCREEN [facility] Start: 10-02-2024 Medicare Annual Well ness (AWV) Medicare Annual Wellness (AWV) [facility] Start: 08-17-2024 Adult BMI Screening Adult BMI Screen ing [facility] Start: 08-17-2024 Tobacco Screening Tobacco Screening [facility] Start: 05-05-2024 BP Controlled (<130/80) BP Controlle d (<130/80) [facility] Start: 03-03-2024 BP CONTROLLED (<130/80) BP CONTROLLE D (<130/80) [facility] Start: 02-17-2024 End: 11-16-2024 CBC W Auto Differential panel - Blood CBC + DIFF Lab Routine Malignant neoplasm of upper lobe of right lung (HCC) Expected: 02/17/2024 (Approximate), Expires: 11/16/2024 [facility] Work Phone: Comment on above: Expected: 02/17/2024 (Approximate), Expires: 11/16/2024 Start: 02-17-2024 End: 11-16-2024 Comprehensive metabolic 2000 panel - Serum or Plasma COMP METABOLIC PANEL Lab Routine Malignant neoplasm of upper lobe of right lung (HCC) Expected: 02/17/2024 (Approximate), Expires: 11/16/2024 [facility] Work Phone: Comment on above: Expected: 02/17/2024 (Approximate), Expires: 11/16/2024 Start: 02-17-2024 End: 12-16-2024 CT Abdomen and Pelvis W contrast IV CT ABD/PEL W IVCON Radiology Routine Lower abdominal pain Malignant neoplasm of upper lobe of right lung (HCC) Expected: 02/17/2024 (Approximate), Expires: 12/16/2024 [facility] Work Phone: Comment on above: Expected: 02/17/2024 (Approximate), Expires: 12/16/2024 Start: 02-17-2024 End: 12-16-2024 CT Chest W contrast IV CT CHEST W IVCON Radiology Routine Malignant neoplasm of upper lobe of right lung (HCC) Expected: 02/17/2024 (Approximate), Expires: 12/16/2024 [facility] Work Phone: Comment on above: Expected: 02/17/2024 (Approximate), Expires: 12/16/2024 Start: 01-01-2024 End: 01-01-2024 Patient encounter procedure 01/01/2024 1:00 PM EDT Office Visit [facility] [address] [place] [id number] Anayeli Heaton, CHELLE [address] [place] [address] [facility] Start: 11-10-2023 End: 08-11-2024 CBC W Auto Differential panel - Blood CBC + DIFF Lab Routine Malignant neoplasm of unspecified part of unspecified bronchus or lung (HCC) Expected: 11/10/2023 (Approximate), Expires: 08/11/2024 [facility] Work Phone: Comment on above: Expected: 11/10/2023 (Approximate), Expires: 08/11/2024 Start: 11-10-2023 End: 08-11-2024 Comprehensive metabolic 2000 panel - Serum or Plasma COMP METABOLIC PANEL Lab Routine Malignant neoplasm of unspecified part of unspecified bronchus or lung (HCC) Expected: 11/10/2023 (Approximate), Expires: 08/11/2024 [facility] Work Phone: Comment on above: Expected: 11/10/2023 (Approximate), Expires: 08/11/2024 Start: 11-10-2023 End: 09-09-2024 CT CHEST W IVCON CT CHEST W IVCON Radiology Routine Malignant neoplasm of unspecified part of unspecified bronchus or lung (HCC) Expected: 11/10/2023 (Approximate), Expires: 09/09/2024 [facility] Work Phone: Comment on above: Expected: 11/10/2023 (Approximate), Expires: 09/09/2024 Start: 10-07-2023 BP CONTROLLED (<130/80) BP CONTROLLE D (<130/80) [facility] Start: 09-04-2023 Advance Directive Discussion Advance Directive Discussion [facility] Start: 08-24-2023 Screening for malign ant neoplasm of colon FIT-DNA [facility] Start: 08-04-2023 End: 05-05-2024 CBC W Auto Differential panel - Blood CBC + DIFF Lab Routine Abnormal finding on GI tract imaging Malignant neoplasm of unspecified part of unspecified bronchus or lung (HCC) Expected: 08/04/2023 (Approximate), Expires: 05/05/2024 [facility] Work Phone: Comment on above: Expected: 08/04/2023 (Approximate), Expires: 05/05/2024 Start: 08-04-2023 End: 05-05-2024 Comprehensive metabolic 2000 panel - Serum or Plasma COMP METABOLIC PANEL Lab Routine Abnormal finding on GI tract imaging Malignant neoplasm of unspecified part of unspecified bronchus or lung (HCC) Expected: 08/04/2023 (Approximate), Expires: 05/05/2024 [facility] Work Phone: Comment on above: Expected: 08/04/2023 (Approximate), Expires: 05/05/2024 Start: 08-04-2023 End: 06-03-2024 NM PET/CT SKULL-THIGH SUBSEQUENT NM PET/CT SKULL-THIGH SUBSEQUENT Radiology Routine Abnormal finding on GI tract imaging Malignant neoplasm of unspecified part of unspecified bronchus or lung (HCC) Expected: 08/04/2023 (Approximate), Expires: 06/03/2024 [facility] Work Phone: Comment on above: Expected: 08/04/2023 (Approximate), Expires: 06/03/2024 Start: 06-03-2023 End: 03-03-2024 CBC W Auto Differential panel - Blood CBC + DIFF Lab Routine Malignant neoplasm of unspecified part of unspecified bronchus or lung (HCC) Lung nodules Expected: 06/03/2023 (Approximate), Expires: 03/03/2024 [facility] Work Phone: Comment on above: Expected: 06/03/2023 (Approximate), Expires: 03/03/2024 Start: 06-03-2023 End: 03-03-2024 Comprehensive metabolic 2000 panel - Serum or Plasma COMP METABOLIC PANEL Lab Routine Malignant neoplasm of unspecified part of unspecified bronchus or lung (HCC) Lung nodules Expected: 06/03/2023 (Approximate), Expires: 03/03/2024 [facility] Work Phone: Comment on above: Expected: 06/03/2023 (Approximate), Expires: 03/03/2024 Start: 06-03-2023 End: 04-01-2024 NM PET/CT SKULL-THIGH SUBSEQUENT NM PET/CT SKULL-THIGH SUBSEQUENT Radiology Routine Malignant neoplasm of unspecified part of unspecified bronchus or lung (HCC) Lung nodules Expected: 06/03/2023 (Approximate), Expires: 04/01/2024 [facility] Work Phone: Comment on above: Expected: 06/03/2023 (Approximate), Expires: 04/01/2024 Start: 05-30-2023 [facility] Start: 05-05-2023 Covid-19 Vaccine () Covid-19 Vaccine () [facility] Start: 05-05-2023 Influenza vaccination [facility] Start: 03-31-2023 BP CONTROLLED (<130/80) BP CONTROLLE D (<130/80) [facility] Start: 02-19-2023 End: 02-07-2024 NM PET/CT SKULL-THIGH SUBSEQUENT NM PET/CT SKULL-THIGH SUBSEQUENT Radiology Routine Malignant neoplasm of unspecified part of unspecified bronchus or lung (HCC) Expected: 02/19/2023 (Approximate), Expires: 02/07/2024 [facility] Work Phone: Comment on above: Expected: 02/19/2023 (Approximate), Expires: 02/07/2024 Start: 01-05-2023 BP CONTROLLED (<130/80) BP CONTROLLE D (<130/80) [facility] Start: 09-15-2022 End: 07-21-2023 CBC W Auto Differential panel - Blood CBC + DIFF Lab Routine Cancer of trachea, bronchus, and lung (HCC) Expected: 09/15/2022 (Approximate), Expires: 07/21/2023 [facility] Work Phone: Comment on above: Expected: 09/15/2022 (Approximate), Expires: 07/21/2023 Start: 09-15-2022 End: 07-21-2023 Comprehensive metabolic 2000 panel - Serum or Plasma COMP METABOLIC PANEL Lab Routine Cancer of trachea, bronchus, and lung (HCC) Expected: 09/15/2022 (Approximate), Expires: 07/21/2023 [facility] Work Phone: Comment on above: Expected: 09/15/2022 (Approximate), Expires: 07/21/2023 Start: 09-15-2022 End: 08-20-2023 CT CHEST W IVCON CT CHEST W IVCON Radiology Routine Cancer of trachea, bronchus, and lung (HCC) Lung nodules Expected: 09/15/2022 (Approximate), Expires: 08/20/2023 [facility] Work Phone: Comment on above: Expected: 09/15/2022 (Approximate), Expires: 08/20/2023 Start: 09-04-2022 ADVANCE DIRECTIVE DISCUSSION ADVANCE DIRECTIVE DISCUSSION [facility] Start: 08-03-2022 End: 04-03-2023 CBC W Auto Differential panel - Blood CBC + DIFF Lab Routine Malignant neoplasm of unspecified part of unspecified bronchus or lung (HCC) Expected: 08/03/2022 (Approximate), Expires: 04/03/2023 [facility] Work Phone: Comment on above: Expected: 08/03/2022 (Approximate), Expires: 04/03/2023 Start: 08-03-2022 End: 04-03-2023 Comprehensive metabolic 2000 panel - Serum or Plasma COMP METABOLIC PANEL Lab Routine Malignant neoplasm of unspecified part of unspecified bronchus or lung (HCC) Expected: 08/03/2022 (Approximate), Expires: 04/03/2023 [facility] Work Phone: Comment on above: Expected: 08/03/2022 (Approximate), Expires: 04/03/2023 Start: 08-03-2022 End: 05-03-2023 CT CHEST W IVCON CT CHEST W IVCON Radiology Routine Malignant neoplasm of unspecified part of unspecified bronchus or lung (HCC) Expected: 08/03/2022 (Approximate), Expires: 05/03/2023 [facility] Work Phone: Comment on above: Expected: 08/03/2022 (Approximate), Expires: 05/03/2023 Start: 05-05-2022 Influenza vaccination C [facility] Start: 04-18-2022 [facility] Work Phone: Start: 04-18-2022 Diagnostic endoscopi c examination on colon DH Colonoscopy Diagnostic (Not Applicable) [facility] Start: 04-18-2022 End: 04-18-2022 Admission to same day surgery center Personal history of colonic polyps [facility] Start: 03-30-2022 End: 03-02-2023 CBC W Auto Differential panel - Blood CBC + DIFF Lab Routine Malignant neoplasm of unspecified part of unspecified bronchus or lung (HCC) Cancer of trachea, bronchus, and lung (HCC) Panlobular emphysema (HCC) Expected: 03/30/2022 (Approximate), Expires: 03/02/2023 [facility] Work Phone: Comment on above: Expected: 03/30/2022 (Approximate), Expires: 03/02/2023 Start: 03-30-2022 End: 03-02-2023 Comprehensive metabolic 2000 panel - Serum or Plasma COMP METABOLIC PANEL Lab Routine Malignant neoplasm of unspecified part of unspecified bronchus or lung (HCC) Cancer of trachea, bronchus, and lung (HCC) Panlobular emphysema (HCC) Expected: 03/30/2022 (Approximate), Expires: 03/02/2023 [facility] Work Phone: Comment on above: Expected: 03/30/2022 (Approximate), Expires: 03/02/2023 Start: 03-30-2022 End: 04-01-2023 Ct thorax w/contrast material CT CHEST W IVCON Radiology Routine Malignant neoplasm of unspecified part of unspecified bronchus or lung (HCC) Cancer of trachea, bronchus, and lung (HCC) Panlobular emphysema (HCC) Expected: 03/30/2022 (Approximate), Expires: 04/01/2023 [facility] Work Phone: Comment on above: Expected: 03/30/2022 (Approximate), Expires: 04/01/2023 Start: 02-05-2022 Adult depression screening assessment DEPRESSION SCREENING [facility] Start: 01-05-2022 End: 03-07-2022 CONFIRM BLOOD TYPE [facility] Work Phone: Comment on above: Expected: 01/05/2022 , Expires: 03/07/2022 Start: 01-05-2022 End: 03-07-2022 TYPE AND SCREEN,30 DAY [facility] Work Phone: Comment on above: Expected: 01/05/2022 , Expires: 03/07/2022 Start: 09-04-2021 ADVANCE DIRECTIVE DISCUSSION ADVANCE DIRECTIVE DISCUSSION [facility] Start: 2016 Fall Risk Screening Fall Risk Screen [facility] Start: 2016 PNEUMOVAX AGE 65 AND OVER WITH 5YR LOOKBACK (#1) PNEUMOVAX AGE 65 AND OVER WITH 5YR LOOKBACK (#1) [facility] Start: 2011 RSV Vaccine (1 - 1-d ose 60+ series) RSV Vaccine (1 - 1-dose 60+ series) [facility] Start: 2001 SHINGRIX VACCINE (1 of 2) SHINGRIX VACCINE (1 of 2) [facility] Start: 1996 COLOGUARD (FIT-DNA) COLOGUARD (FIT-D NA) [facility] Start: 1996 Colonoscopy COLONOSCOPY [facility] Start: 1996 COLORECTAL CANCER SCREENING COLORECTAL CANCER SCREENING [facility] Start: [address] COLONOGRAPHY [facility] Start: 1996 FECAL OCCULT BLOOD FECAL OCCULT BLOO D [facility] Start: 1996 Screening for malign ant neoplasm of colon [facility] Start: 1996 SIGMOIDOSCOPY SIGMOIDOSCOPY [place] [facility] Start: 1986 Lipid 1996 panel - S ned or Plasma Lipid Screening [facility] Start: 1986 Lipid panel Lipid Screening [facility] Start: 1986 LIPID SCREEN LIPID SCREEN [facility] Start: 1981 Zoledronic acid therapy ALPHA- 1 ANTITRYPSIN DEFICIENCY SCREENING [facility] Start: 1970 Administration of varicella zoster vaccine Zoster (Shingles) Vaccine (1 of 2) [facility] Start: 1970 DTaP,Tdap and Td Vaccines (1 - Tdap) DTaP,Tdap and Td Vaccines (1 - Tdap) [facility] Start: 1970 SHINGRIX VACCINE (1 of 2) SHINGRIX VACCINE (1 of 2) [facility] Start: 1970 Urine microalbumin profile [facility] Start: 1969 Adult BMI Follow Up Plan Adult BMI Follow Up Plan [facility] Start: 1969 ANNUAL PCP TEAM EXTRACTOR FILLER AVERY DISEASE VISIT ANNUAL PCP TEAM CHRONIC DISEASE VISIT [facility] Start: 1969 BP CONTROLLED (<130/80) BP CONTROLLE D (<130/80) [facility] Start: 1969 Hepatitis B surface antibody level LDL CHOLESTEROL [facility] Start: 1969 HEPATITIS C SCREENING HEPATITIS C [facility] Start: 1969 Hepatitis C screening Hepatitis C [facility] Start: 1969 SPIROMETRY SPIROMETRY [facility] Start: 1963 Depression Screening Depression Scre ening [facility] Start: 1957 Pneumococcal Vaccine : 65+ (1 - PCV) Pneumococcal Vaccine: 65+ (1 - PCV) [facility] Start: 1957 Pneumococcal Vaccine : 65+ (1 of 2 - PCV) Pneumococcal Vaccine: 65+ (1 of 2 - PCV) [facility] Start: 1957 Pneumococcal Vaccine : 65+ Years (1 - PCV) Pneumococcal Vaccine: 65+ Years (1 - PCV) [facility] Start: 1957 PNEUMOCOCCAL: 65+ (1 - PCV) PNEUMOCOCCAL: 65+ (1 - PCV) [facility] Start: 1956 COVID-19 VACCINE (#1) COVID-19 VACCI NE (#1) [facility] Start: 1956 COVID-19 VACCINE (1) COVID-19 VACCIN E (1) [facility] Start: 1951 COVID-19 VACCINE (#1) COVID-19 VACCI NE (#1) [facility] Start: 1951 ABDOMINAL AORTIC ANEURYSM SCREENING ABDOMINAL AORTIC ANEURYSM SCREENING [facility] Start: 1951 Abdominal aortic aneurysm screening Abdominal Aortic Aneurysm Screening [facility] Start: 1951 Medicare Annual Well ness Visit Medicare Annual Wellness Visit [facility] Start: 1951 Screening for malign ant neoplasm of colon [facility] Start: 1951 Tobacco Counseling Tobacco Counselziggy hinton [facility] Biopsy liver needle percutaneous IMAGING GUIDED BIOPSY LIVER Radiology Routine Cancer of trachea, bronchus, and lung (HCC) Liver mass, right lobe Ordered: 12/17/2021 [facility] Work Phone: Comment on above: Ordered: 12/17/2021 [facility] Problems Active Problems Problem Classification Problem Date Documented Da te Episodic/Chronic Abdominal pain (2 sources) Lower abdominal pain; Translations: [Lower abdominal pain, unspecified] Onset: 4 11-17-2023 Episodic Aortic; peripheral; and visceral artery aneurysms (20 sources) Thoracic aortic aneurysm without rupture; Translations: [Thoracic aortic aneurysm, without rupture] Onset: 0 Chronic Cancer of bronchus; lung (4 sources) Adenocarcinoma of right lung; Translations: [Malignant neoplasm of unspecified part of right bronchus or lung] Onset: 3 10-02-2023 Chronic Cancer; other respiratory and intrathoracic (20 sources) Malignant neoplasm of lower respiratory tract; 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] Onset: 2 Chronic Chronic obstructive pulmonary disease and bronchiectasis (20 sources) Chronic obstructive lung disease; Translations: [Chronic obstructive pulmonary disease, unspecified] Onset: 0 Resolved: 2 Chronic Conduction disorders (1 source) First degree atrioventricular block; Translations: [Atrioventricular block, first degree] Onset: 4 10-02-2023 Chronic Congestive heart failure; nonhypertensive (20 sources) Chronic diastolic heart failure; Translations: [Chronic diastolic (congestive) heart failure] Onset: 0 Chronic Coronary atherosclerosis and other heart disease (20 sources) Coronary arteriosclerosis; Translations: [Atherosclerotic heart disease of 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 angina pectoris] Onset: 0 [...] Other and ill-defined heart disease (2 sources) Left ventricular thrombus; Translations: [Intracardiac thrombosis, not elsewhere classified] Onset: 0 08-11-2022 Chronic Other and ill-defined heart disease (2 sources) Intracardiac thrombosis, not elsewhere classified; Translations: [Intracardiac thrombosis, not elsewhere classified] Onset: 3 Chronic Other and unspecified benign neoplasm (3 sources) History of polyp of colon; Translations: [Personal history of colonic polyps] 04-18-2022 Episodic Other and unspecified benign neoplasm (1 source) Personal history of colonic polyps; Translations: [Personal history of colonic polyps] 04-18-2022 Episodic Other gastrointestinal disorders (1 source) Chronic idiopathic constipation; Translations: [Chronic idiopathic constipation] Onset: 4 10-02-2023 Chronic Other gastrointestinal disorders (2 sources) Stool DNA-based colorectal cancer screening positive; Translations: [Other fecal abnormalities] 04-22-2021 Episodic Other liver diseases (3 sources) Liver mass; Translations: [Hepatomegaly, not elsewhere classified] Episodic Other skin disorders (1 source) Mass of body structure; Translations: [Granulomatous disorder of the skin and subcutaneous tissue, unspecified] Episodic Substance-related disorders (20 sources) Smoker; Translations: [Nicotine dependence, unspecified, uncomplicated] Onset: 2 Chronic Unclassified (1 source) THORAC AORTC ANEURYSM W/O RUPTR UNS; Translations: [THORAC AORTC ANEURYSM W/O RUPTR UNS] Onset: 3 Unclassified (1 source) Aneurysm of the ascending aorta, without rupture; Translations: [Aneurysm of the ascending aorta, without rupture] Onset: 2 Unclassified (1 source) Thoracic aortic aneurysm, without rupture, unspecified; Translations: [Thoracic aortic aneurysm, without rupture, unspecified] Onset: 2 Past or Other Problems Problem Classification Problem Date Documented Date Episodic/Chronic Coronary atherosclerosis and other heart disease (2 sources) Presence of aortocoronary bypass graft; Translations: [Presence of aortocoronary bypass graft] Onset: 06-20-2022 Episodic Mood disorders (1 source) Mood disorders Onset: 10-02-2023 10-02-2023 Other lower respiratory disease (9 sources) Lung mass; Translations: [Other nonspecific abnormal finding of lung field] Onset: 06-17-2020 Resolved: 08-18-2022 Episodic Other lower respiratory disease (20 sources) Multiple nodules of lung; Translations: [Other nonspecific abnormal finding of lung field] Onset: 01-05-2022 Episodic Other lower respiratory disease (2 sources) Dyspnea on exertion; Translations: [Other forms of dyspnea] Onset: 08-18-2022 08-18-2022 Episodic Other lower respiratory disease (1 source) Other nonspecific abnormal finding of lung field; Translations: [Lung nodules] Onset: 07-21-2022 Episodic Other screening for suspected conditions (not mental disorders or infectious disease) (3 sources) Imaging of gastrointestinal tract abnormal; Translations: [Abnormal findings on diagnostic imaging of other parts of digestive tract] Onset: 05-30-2023 05-05-2023 Episodic Residual codes; unclassified (2 sources) Insomnia; Translations: [Insomnia, unspecified] Onset: 07-07-2020 08-11-2022 Episodic Unclassified (1 source) Aneurysm of the ascending aorta, without rupture; Translations: [Aneurysm of the ascending aorta, without rupture] Onset: 04-05-2023 Unclassified (1 source) Thoracic aortic aneurysm, without rupture, unspecified; Translations: [Thoracic aortic aneurysm, without rupture, unspecified] Onset: 01-02-2023 Procedures Date Procedure Procedure Detail Performing Clinician Start: 05-30-2023 Esophagogastroduodenoscopy MD Shaikh Zina garcia Work Phone: Start: 04-18-2022 Colonoscopy Shaikh Lowell HEAD Work Phone: Start: 01-05-2022 History of coronary artery bypass grafting Hx of CABG Pac 3 Work Phone: Start: 02-05-2021 Adult depression screening assessment Jaya Bai MD Work Phone: SARS Antigen (LFIA) MD Shaik job Etienne Work Phone: Results Test Name Value Interpretation Reference Range Facility CBC W Auto Differential pane l (Bld)on 02-23-2024 Basophils (Bld) [#/Vol] 0.10 10*3/uL Normal <0.[address] [facility] Comment on above: Order Comment: Speci men Type: BLOOD SPECIMENOrdering Facility: [facility] Address: [address] [place] [address] Performed By: #### 5 7021-8 ####[facility] LABCLIA [id number] [place] [address] Basophils/100 WBC (Bld) 0.9 % Normal [facility] Comment on above: Order Comment: Speci men Type: BLOOD SPECIMENOrdering Facility: [facility] Address: [address] [place] [address] Performed By: #### 5 7021-8 ####[facility] LABCLIA [id number] [place] [address] Differential cell count method Nom (Bld) Auto Normal [facility] Comment on above: Order Comment: Speci men Type: BLOOD SPECIMENOrdering Facility: [facility] Address: [address] [place] [address] Performed By: #### 5 7021-8 ####[facility] LABCLIA [id number] [place] [address] Eosinophils (Bld) [#/Vol] 0.43 10*3/uL Normal <0.[address] [facility] Comment on above: Order Comment: Speci men Type: BLOOD SPECIMENOrdering Facility: [facility] Address: [address] [place] [address] Performed By: #### 5 7021-8 ####[facility] LABCLIA [id number] [place] [address] Eosinophils/100 WBC (Bld) 4.0 % Normal [facility] Comment on above: Order Comment: Speci men Type: BLOOD SPECIMENOrdering Facility: [facility] Address: [address] [place] [address] Performed By: #### 5 7021-8 ####[facility] LABCLIA [id number] [place] [address] Erythrocyte distribution width (RBC) [Ratio] 13.3 % Normal 11.5-15.0 [facility] [facility] Comment on above: Order Comment: Speci men Type: BLOOD SPECIMENOrdering Facility: [facility] Address: [address] [place] [address] Performed By: #### 5 7021-8 ####[facility] LABCLIA [id number] [place] [address] Hematocrit (Bld) [Volume fraction] 41.2 % Normal 39.0-51.[address] [facility] Comment on above: Order Comment: Speci men Type: BLOOD SPECIMENOrdering Facility: [facility] Address: [address] [place] [address] Performed By: #### 5 7021-8 ####[facility] LABCLIA [id number] [place] [address] Hemoglobin (Bld) [Mass/Vol] 13.5 g/dL Normal 13.0-17.[address] [facility] Comment on above: Order Comment: Speci men Type: BLOOD SPECIMENOrdering Facility: [facility] Address: [address] [place] [address] Performed By: #### 5 7021-8 ####[facility] LABCLIA [id number] [place] [address] Immature granulocytes (Bld) [#/Vol] 0.06 10*3/uL Normal <0.[address] [facility] Comment on above: Order Comment: Speci men Type: BLOOD SPECIMENOrdering Facility: [facility] Address: [address] [place] [address] Performed By: #### 5 7021-8 ####[facility] LABCLIA [id number] [place] [address] Immature granulocytes/100 WBC (Bld) 0.6 % Normal [facility] Comment on above: Order Comment: Speci men Type: BLOOD SPECIMENOrdering Facility: [facility] Address: [address] [place] [address] Performed By: #### 5 7021-8 ####[facility] LABCLIA [id number] [place] [address] Lymphocytes (Bld) [#/Vol] 2.03 10*3/uL Normal 1.00-4.[address] [facility] Comment on above: Order Comment: Speci men Type: BLOOD SPECIMENOrdering Facility: [facility] Address: [address] [place] [address] Performed By: #### 5 7021-8 ####[facility] LABCLIA [id number] [place] [address] Lymphocytes/100 WBC (Bld) 18.9 % Normal [facility] Comment on above: Order Comment: Speci men Type: BLOOD SPECIMENOrdering Facility: [facility] Address: [address] [place] [address] Performed By: #### 5 7021-8 ####[facility] LABCLIA [id number] [place] [address] MCH (RBC) [Entitic mass] 30.0 pg Normal 26.0-34.[address] [facility] Comment on above: Order Comment: Speci men Type: BLOOD SPECIMENOrdering Facility: [facility] Address: [address] [place] [address] Performed By: #### 5 7021-8 ####[facility] LABCLIA [id number] [place] [address] MCHC (RBC) [Mass/Vol] 32.8 g/dL Normal 30.5-36.0 [facility] Comment on above: Order Comment: Speci men Type: BLOOD SPECIMENOrdering Facility: [facility] Address: [address] [place] [address] Performed By: #### 5 7021-8 ####[facility] LABCLIA [id number] [place] [address] MCV (RBC) [Entitic vol] 91.6 fL Normal 80.0-100.0 [facility] Comment on above: Order Comment: Speci men Type: BLOOD SPECIMENOrdering Facility: [facility] Address: [address] [place] [address] Performed By: #### 5 7021-8 ####[facility] LABCLIA [id number] [place] [address] Monocytes (Bld) [#/Vol] 1.14 10*3/uL High <0.[address] [facility] Comment on above: Order Comment: Speci men Type: BLOOD SPECIMENOrdering Facility: [facility] Address: [address] [place] [address] Performed By: #### 5 7021-8 ####[facility] LABCLIA [id number] [place] [address] Monocytes/100 WBC (Bld) 10.6 % Normal [facility] Comment on above: Order Comment: Speci men Type: BLOOD SPECIMENOrdering Facility: [facility] Address: [address] [place] [address] Performed By: #### 5 7021-8 ####[facility] LABCLIA [id number] [place] [address] Neutrophils (Bld) [#/Vol] 6.99 10*3/uL Normal 1.45-7.[address] [facility] Comment on above: Order Comment: Speci men Type: BLOOD SPECIMENOrdering Facility: [facility] Address: [address] [place] [address] Performed By: #### 5 7021-8 ####[facility] LABCLIA [id number] [place] [address] Neutrophils/100 WBC (Bld) 65.0 % Normal [facility] Comment on above: Order Comment: Speci men Type: BLOOD SPECIMENOrdering Facility: [facility] Address: [address] [place] [address] Performed By: #### 5 7021-8 ####[facility] LABCLIA [id number] [place] [address] Nucleated RBC (Bld) [#/Vol] 10*3/uL Normal <0.[address] [facility] Comment on above: Order Comment: Speci men Type: BLOOD SPECIMENOrdering Facility: [facility] Address: [address] [place] [address] Performed By: #### 5 7021-8 ####[facility] LABCLIA [id number] [place] [address] Nucleated RBC/100 WBC (Bld) [Ratio] 0.0 /[address] [facility] Comment on above: Order Comment: Speci men Type: BLOOD SPECIMENOrdering Facility: [facility] Address: [address] [place] [address] Performed By: #### 5 7021-8 ####[facility] LABIA [id number] [place] [address] Platelet mean volume (Bld) [Entitic vol] 9.2 fL Normal 9.0-12.[address] [facility] Comment on above: Order Comment: Speci men Type: BLOOD SPECIMENOrdering Facility: [facility] Address: [address] [place], [place] [address] Performed By: #### 5 7021-8 ####[facility] LABCLIA [id number] [place] [address] Platelets (Bld) [#/Vol] 245 10*3/uL Normal 150-[address] [facility] Comment on above: Order Comment: Speci men Type: BLOOD SPECIMENOrdering Facility: [facility] Address: [address] [place] [address] Performed By: #### 5 7021-8 ####[facility] LABIA [id number] [place] [address] RBC (Bld) [#/Vol] 4.50 10*6/uL Normal 4.20-6.00 [facility] Comment on above: Order Comment: Speci men Type: BLOOD SPECIMENOrdering Facility: [facility] Address: [address] [place] [address] Performed By: #### 5 7021-8 ####[facility] LABIA [id number] [place] [address] WBC (Bld) [#/Vol] 10.75 10*3/uL Normal 3.70-11.00 [facility] Comment on above: Order Comment: Speci men Type: BLOOD SPECIMENOrdering Facility: [facility] Address: [address] [place] [address] Performed By: #### 5 7021-8 ####[facility] LABIA [id number] [place] [address] CT ABD/PEL W IVCONon 024 CT ABD/PEL W IVCON * * *Final Report* * * DATE OF EXAM: Feb 23 2024 1:20PM [facility] 0530 - CT ABD/PEL W IVCON / PROCEDURE REASON: multiple diagnoses * * * * Physician Interpretation * * * * RESULT: EXAMINATION: CT ABDOMEN AND PELVIS WITH IV CONTRAST CLINICAL HISTORY: Non-small cell lung cancer follow-up TECHNIQUE: CT of the abdomen and pelvis was performed using standard technique, scanning from just above the dome of the diaphragm to the symphysis pubis. MQ: CTAP_3 Contrast: IV: 150 ml of Omnipaque 300 Oral: 500 ml of Omni 240 10-25ml diluted with water CT Radiation dose: Integrated Dose-length product (DLP) for this visit = 1011 mGy*cm. CT Dose Reduction Employed: Automated exposure control (AEC) COMPARISON: PET/CT scans dated 08/04/23; CT abdomen/pelvis dated 01/04/23 RESULT: Liver: 2.1 x 0.8 cm hypodensity in the dome of the liver (3:17), stable. No new hepatic abnormalities. Biliary: No bile duct dilation. Gallbladder is collapsed. Spleen: No mass. No splenomegaly. Pancreas: No mass or duct dilation. Adrenals: No mass. Kidneys: No mass, calculus or hydronephrosis. GI tract: No dilation or wall thickening. No evidence of appendicitis. Lymph nodes: No abdominal or pelvic lymphadenopathy. Mesentery/Peritoneum : No ascites or mass. Retroperitoneum: No mass. Vasculature: The celiac axis and SMA are patent. The portal vein and branches, splenic vein, SMV, and hepatic veins are patent. Arterial atherosclerotic disease without aneurysm. Pelvis: No mass, ascites or fluid collection. Fat-containing right inguinal hernia. Urinary bladder is decompressed. Nonspecific diffuse thickening of the urinary bladder wall. Bones/Soft Tissues: No new osseous abnormalities. Lower thorax: A chest CT performed will be reported separately. Rn Or Lpn (topogram) images: No additional findings. IMPRESSION: 1. Nonspecific 2.1 cm hypodensity in the dome of the liver, stable since 01/04/23. 2. No evidence of new intra-abdominal/pelv ic abnormalities. 3. Fat-containing right inguinal hernia. Transcribe Date/Time: Feb 26 2024 9:08A Dictated by: ARNEL SAUCEDA MD This examination was interpreted and the report reviewed and electronically signed by: ARNEL SAUCEDA MD on Feb 26 2024 9:37AM EST Thank you for allowing us to participate in the care of your patient. Should there be any questions regarding this interpretation, please call [phone]. If you are unable to reach us at the number above, please feel free to contact [facility] at [phone]. [id number] CN Normal [facility] CT CHEST W IVCONon 4 CT CHEST W IVCON * * *Final Report* * * DATE OF EXAM: Feb 23 2024 1:20PM [facility] 0539 - CT CHEST W IVCON / PROCEDURE REASON: Malignant neoplasm of upper lobe of right lung (HCC) * * * * Physician Interpretation * * * * RESULT: EXAMINATION: CHEST CT WITH CONTRAST CLINICAL HISTORY: Non-small cell lung cancer (NSCLC), metastatic, assess treatment response Technique: Spiral CT acquisition of the chest from the thoracic inlet to the upper abdomen following IV contrast. MQ: CTCW_6 Contrast: 150 mL Omnipaque [address] Radiation dose: Integrated Dose-length product (DLP) for this visit = 1011 mGy*cm CT Dose Reduction Employed: Automated exposure control (AEC) Comparison: 11/10/23 RESULT: Limitations: None. Lines, tubes, and devices: None. Lung parenchyma and airways: Mild emphysematous changes of the lungs. Postoperative changes compatible with a right upper lobe lobectomy. New right perihilar consolidative opacities may represent with new opacification of the right middle lobe bronchus most likely related to complete right middle lobe atelectasis. Multiple new nodular opacities (at least 10-15). For example: 1.0 cm right lung (4:77) 1.0 cm right lung (4:87) 8 mm left lung (4:120) Pleural space: No pleural effusion. No pleural thickening. Lower neck, lymph nodes, and mediastinum: The imaged thyroid gland is normal. No lymphadenopathy in the supraclavicular, axillary, mediastinal, or hilar regions. Heart, pericardium, and thoracic vessels: Borderline aneurysmal enlargement of the ascending thoracic aorta measuring 5.0 cm in diameter. Postoperative changes of the anterior chest. Heart is mild to moderately enlarged. No pericardial effusion or thickening. Bones and soft tissues: Deformities of several bilateral ribs most likely related to postoperative change or sequela of prior trauma. No new osseous abnormalities. Upper abdomen: Please refer to the abdomen CT scan report for the abdomen findings. Rn Or Lpn (topogram) images: No additional findings. IMPRESSION: 1. Multiple new nodular opacities measuring up to 1 cm. Differential diagnosis includes a combination of infectious/inflammat ory etiologies or neoplasm. Consider interval follow-up and/or the workup. 2. New right perihilar consolidative opacities may represent with new opacification of the right middle lobe bronchus most likely related to complete right middle lobe atelectasis. Differential diagnosis includes mucus plugging and endobronchial lesion. Transcribe Date/Time: Feb 26 2024 8:48A Dictated by: ARNEL SAUCEDA MD This examination was interpreted and the report reviewed and electronically signed by: ARNEL SAUCEDA MD on Feb 26 2024 9:37AM EST Thank you for allowing us to participate in the care of your patient. Should there be any questions regarding this interpretation, please call [phone]. If you are unable to reach us at the number above, please feel free to contact [facility] at [phone]. [id number] CN Normal [facility] Comprehensive metabolic 2000 panelon 02-23-2024 Albumin [Mass/Vol] 4.3 g/dL Normal 3.9-4.9 [facility] Comment on above: Order Comment: Speci men Type: BLOOD SPECIMENOrdering Facility: [facility] Address: [address] [place] [address] Performed By: #### 2 4323-8 ####[facility] LABCLIA [id number] [place] [address] ALP [Catalytic activity/Vol] 110 U/L Normal 38-[address] [facility] Comment on above: Order Comment: Speci men Type: BLOOD SPECIMENOrdering Facility: [facility] Address: [address] [place] [address] Performed By: #### 2 4323-8 ####[facility] LABCLIA [id number] [place] [address] ALT [Catalytic activity/Vol] 8 U/L Low 10-[address] [facility] Comment on above: Order Comment: Speci men Type: BLOOD SPECIMENOrdering Facility: [facility] Address: [address] [place] [address] Performed By: #### 2 4323-8 ####[facility] LABCLIA [id number] [place] [address] Anion gap [Moles/Vol] 7 mmol/L Low 8-15 [facility] Comment on above: Order Comment: Speci men Type: BLOOD SPECIMENOrdering Facility: [facility] Address: [address] [place] [address] Performed By: #### 2 4323-8 ####[facility] LABCLIA [id number] [place] [address] AST [Catalytic activity/Vol] 11 U/L Low 14-[address] [facility] Comment on above: Order Comment: Speci men Type: BLOOD SPECIMENOrdering Facility: [facility] Address: [address] [place] [address] Performed By: #### 2 4323-8 ####[facility] LABCLIA [id number] [place] [address] Bilirubin [Mass/Vol] 0.3 mg/dL Normal 0.2-1.3 [facility] Comment on above: Order Comment: Speci men Type: BLOOD SPECIMENOrdering Facility: [facility] Address: [address] [place] [address] Performed By: #### 2 4323-8 ####[facility] LABCLIA [id number] [place] [address] Calcium [Mass/Vol] 9.7 mg/dL Normal 8.5-10.2 [facility] Comment on above: Order Comment: Speci men Type: BLOOD SPECIMENOrdering Facility: [facility] Address: [address] [place] [address] Performed By: #### 2 4323-8 ####[facility] LABCLIA [id number] [place] [address] Chloride [Moles/Vol] 107 mmol/L Normal 98-107 [facility] Comment on above: Order Comment: Speci men Type: BLOOD SPECIMENOrdering Facility: [facility] Address: [address] [place] [address] Performed By: #### 2 4323-8 ####[facility] LABCLIA [id number] [place] [address] CO2 [Moles/Vol] 27 mmol/L Normal 22-[address] [facility] Comment on above: Order Comment: Speci men Type: BLOOD SPECIMENOrdering Facility: [facility] Address: [address] [place] [address] Performed By: #### 2 4323-8 ####[facility] LABCLIA [id number] [place] [address] Creatinine [Mass/Vol] 1.22 mg/dL Normal 0.73-1.22 [facility] Comment on above: Order Comment: Speci men Type: BLOOD SPECIMENOrdering Facility: [facility] Address: [address] [place] [address] Performed By: #### 2 4323-8 ####[facility] LABCLIA [id number] [place] [address] Creatinine and Glomerular filtration rate.predicted panel (S/P/Bld) 63 mL/min/1.73m??? Normal >=[address] [facility] Comment on above: Order Comment: Speci men Type: BLOOD SPECIMENOrdering Facility: [facility] Address: [address] [place] [address] Result Comment: Karin mated Glomerular Filtration Rate [...] actual GFR. Performed By: #### 2 4323-8 ####[facility] LABCLIA [id number] [place] [address] Glucose [Mass/Vol] 107 mg/dL High 74-99 [facility] Comment on above: Order Comment: Speci men Type: BLOOD SPECIMENOrdering Facility: [facility] Address: [address] [place], [place] [id number] Result Comment: The [place] [employer] Association (ADA) provides guidance for cutoff [...] Standards of Medical Care in Diabetes 2016, [place] [employer]. Diabetes Care. 2016.39(Suppl 1). Performed By: #### 2 4323-8 ####[facility] LABCLIA [id number] [place] [address] Potassium [Moles/Vol] 4.8 mmol/L Normal 3.7-5.1 [facility] Comment on above: Order Comment: Speci men Type: BLOOD SPECIMENOrdering Facility: [facility] Address: [address] [place], [place] [address] Performed By: #### 2 4323-8 ####[facility] LABCLIA [id number] [place] [address] Protein [Mass/Vol] 8.1 g/dL High 6.3-8.0 [facility] Comment on above: Order Comment: Speci men Type: BLOOD SPECIMENOrdering Facility: [facility] Address: [address] [place], [place] [address] Performed By: #### 2 4323-8 ####[facility] LABCLIA [id number] [place] [address] Sodium [Moles/Vol] 141 mmol/L Normal 136-144 [facility] Comment on above: Order Comment: Speci men Type: BLOOD SPECIMENOrdering Facility: [facility] Address: [address] [place] [address] Performed By: #### 2 4323-8 ####[facility] LABCLIA [id number] [place] [address] Urea nitrogen [Mass/Vol] 18 mg/dL Normal 9-[address] [facility] Comment on above: Order Comment: Speci men Type: BLOOD SPECIMENOrdering Facility: [facility] Address: [address] [place] [address] Performed By: #### 2 4323-8 ####[facility] LABCLIA [id number] [place] [address] VAS US LOWER EXTREMITY VENO US DUPLEX LEFTon 01-10-2024 VAS US LOWER EXTREMITY VENOUS DUPLEX LEFT FINDINGS: The deep venous system of the left lower extremity exhibits full compressibility and normal flow augmentation. These specifically include the common femoral, superficial femoral, popliteal, and visualized anterior tibialis, posterior tibialis, and peroneal veins. No evidence of deep venous thrombosis is present. Greater saphenous vein is patent. No cystic or soft tissue mass in the popliteal fossa. IMPRESSION: No evidence of deep or superficial venous thrombosis TRANSCRIBED BY: ELECTRONICALLY SIGNED BY: Luis Antonio Rain MD Normal Not Available CNOVSPon 11-17-2023 OVS Visit (SP) Office ([place]) ALESSIO BURNS ([id number]) 1950 M [facility]* Date Time Provider Department 11/17/23 2:30 PM JAYA BAI During your visit today, we recorded the following information about you: Temperature Pulse Respiration Blood pressure 97 degrees 55/minute 18/minute 135/60 Weight 88.3 kg Jaya Bai MD 11/18/2023 11:26 AM Signed NAME: Alessio Burns CLINIC NO.: [id number] DATE OF SERVICE: November 17, 2023 (Zac) Some elements in this clinic note that are critical to medical decision making have been carefully reviewed and included from a prior clinic note dated: August 11, 2023 (Zac) Referring Provider: Dr. Shaikh Etienne [...] 6-month gap between resection and presentation to tx. He remains at high risk because of [...] duodenum which will need further evaluation. PLAN: RTC in [address] CAP with labs 1 week prior Continue follow up with GI Need most recent record from [facility] - HPI: Case History: 11/10/2023 - CT Chest: There has been significant improvement in size and number of the previously identified multiple bilateral pulmonary nodules, as detailed above. Several subcentimeter mediastinal lymph nodes are again identified, unchanged. No substantial intrathoracic adenopathy is identified. Aneurysmal dilation of the ascending thoracic aorta measuring approximately 4.7-4.8 cm, stable. 08/04/2023 - PET CT: No evidence of focal uptake to suggest FDG avid neoplastic process in the head/neck, abdomen/pelvis, or extremities/skeleton . Chest: Slight improvement in left upper lobe lung nodule. Other nodules below PET resolution stable. 05/30/2023 - EGD ([facility]): Duodenum: Mild bulbar duodenitis, otherwise normal. Stomach: [...] bilateral pulmonary nodules some of which demonstrate borderlin (more content not included)... Normal [facility] CNPNon 11-13-2023 AZAELN Telephone ([place]) ALESSIO BURNS ([id number]) 1950 [place] [facility]* Date Time Provider Department 11/13/23 WILMER ROSAS During your visit today, we recorded the following information about you: Wilmer Rosas RN 11/13/2023 8:51 AM Signed ----- Message from Jaya Bai MD sent at 11/11/2023 9:37 AM EST ----- CT Scan looking better and better! Wilmer Rosas RN 11/13/2023 8:52 AM Signed Pt informed of WalkMe's message and denies any questions, needs or concerns at this time. Appointment verified. Wilmer Rosas RN Allergies As of Date: 11/13/2023 (No Known Allergies) Date Reviewed: 08/11/2023 Reviewed by: Prachi Stephens Ma - Fully Assessed Reason for Visit: Results [95] Prescriptions as of 11/13/2023 - omeprazole (PRILOSEC) 40 mg capsule TAKE [...] TWICE DAILY Problem List As Of Date 11/13/2023 Noted Resolved Cancer of trachea, bronchus, and [...] emphysema (HCC) [J43.1] 07/21/2022 Encounter Status:Closed by WILMER ROSAS on 11/13/[address] [facility] CBC W Auto Differential pane l (Bld)on 11-10-2023 Basophils (Bld) [#/Vol] 0.07 10*3/uL Normal <0.[address] [facility] Comment on above: Order Comment: Speci men Type: BLOOD SPECIMENOrdering Facility: [facility] Address: [address] [place] [address] Performed By: #### 5 7021-8 ####[facility] LABCLIA [id number] [place] [address] Basophils/100 WBC (Bld) 0.8 % Normal [facility] Comment on above: Order Comment: Speci men Type: BLOOD SPECIMENOrdering Facility: [facility] Address: [address] [place] [address] Performed By: #### 5 7021-8 ####[facility] LABCLIA [id number] [place] [address] Differential cell count method Nom (Bld) Auto Normal [facility] Comment on above: Order Comment: Speci men Type: BLOOD SPECIMENOrdering Facility: [facility] Address: [address] [place] [address] Performed By: #### 5 7021-8 ####[facility] LABCLIA [id number] [place] [address] Eosinophils (Bld) [#/Vol] 0.33 10*3/uL Normal <0.[address] [facility] Comment on above: Order Comment: Speci men Type: BLOOD SPECIMENOrdering Facility: [facility] Address: [address] [place] [address] Performed By: #### 5 7021-8 ####[facility] LABCLIA [id number] [place] [address] Eosinophils/100 WBC (Bld) 3.7 % Normal [facility] Comment on above: Order Comment: Speci men Type: BLOOD SPECIMENOrdering Facility: [facility] Address: [address] [place] [address] Performed By: #### 5 7021-8 ####[facility] LABCLIA [id number] [place] [address] Erythrocyte distribution width (RBC) [Ratio] 13.2 % Normal 11.5-15.[address] [facility] Comment on above: Order Comment: Speci men Type: BLOOD SPECIMENOrdering Facility: [facility] Address: [address] [place] [address] Performed By: #### 5 7021-8 ####[facility] LABCLIA [id number] [place] [address] Hematocrit (Bld) [Volume fraction] 41.2 % Normal 39.0-51.[address] [facility] Comment on above: Order Comment: Speci men Type: BLOOD SPECIMENOrdering Facility: [facility] Address: [address] [place] [address] Performed By: #### 5 7021-8 ####[facility] LABCLIA [id number] [place] [address] Hemoglobin (Bld) [Mass/Vol] 13.9 g/dL Normal 13.0-17.[address] [facility] Comment on above: Order Comment: Speci men Type: BLOOD SPECIMENOrdering Facility: [facility] Address: [address] [place] [address] Performed By: #### 5 7021-8 ####[facility] LABCLIA [id number] [place] [address] Immature granulocytes (Bld) [#/Vol] 0.05 10*3/uL Normal <0.[address] [facility] Comment on above: Order Comment: Speci men Type: BLOOD SPECIMENOrdering Facility: [facility] Address: [address] [place] [address] Performed By: #### 5 7021-8 ####[facility] LABCLIA [id number] [place] [address] Immature granulocytes/100 WBC (Bld) 0.6 % Normal [facility] Comment on above: Order Comment: Speci men Type: BLOOD SPECIMENOrdering Facility: [facility] Address: [address] [place] [address] Performed By: #### 5 7021-8 ####[facility] LABCLIA [id number] [place] [address] Lymphocytes (Bld) [#/Vol] 1.78 10*3/uL Normal 1.00-4.[address] [facility] Comment on above: Order Comment: Speci men Type: BLOOD SPECIMENOrdering Facility: [facility] Address: [address] [place] [address] Performed By: #### 5 7021-8 ####[facility] LABCLIA [id number] [place] [address] Lymphocytes/100 WBC (Bld) 19.9 % Normal [facility] Comment on above: Order Comment: Speci men Type: BLOOD SPECIMENOrdering Facility: [facility] Address: [address] [place] [address] Performed By: #### 5 7021-8 ####[facility] LABCLIA [id number] [place] [address] MCH (RBC) [Entitic mass] 30.8 pg Normal 26.0-34.[address] [facility] Comment on above: Order Comment: Speci men Type: BLOOD SPECIMENOrdering Facility: [facility] Address: [address] [place] [address] Performed By: #### 5 7021-8 ####[facility] LABCLIA [id number] [place] [address] MCHC (RBC) [Mass/Vol] 33.7 g/dL Normal 30.5-36.0 [facility] Comment on above: Order Comment: Speci men Type: BLOOD SPECIMENOrdering Facility: [facility] Address: [address] [place] [address] Performed By: #### 5 7021-8 ####[facility] LABCLIA [id number] [place] [address] MCV (RBC) [Entitic vol] 91.2 fL Normal 80.0-100.0 [facility] Comment on above: Order Comment: Speci men Type: BLOOD SPECIMENOrdering Facility: [facility] Address: [address] [place] [address] Performed By: #### 5 7021-8 ####[facility] LABCLIA [id number] [place] [address] Monocytes (Bld) [#/Vol] 1.11 10*3/uL High <0.[address] [facility] Comment on above: Order Comment: Speci men Type: BLOOD SPECIMENOrdering Facility: [facility] Address: [address] [place] [address] Performed By: #### 5 7021-8 ####[facility] LABCLIA [id number] [place] [address] Monocytes/100 WBC (Bld) 12.4 % Normal [facility] Comment on above: Order Comment: Speci men Type: BLOOD SPECIMENOrdering Facility: [facility] Address: [address] [place] [address] Performed By: #### 5 7021-8 ####[facility] LABCLIA [id number] [place] [address] Neutrophils (Bld) [#/Vol] 5.59 10*3/uL Normal 1.45-7.[address] [facility] Comment on above: Order Comment: Speci men Type: BLOOD SPECIMENOrdering Facility: [facility] Address: [address] [place] [address] Performed By: #### 5 7021-8 ####[facility] LABCLIA [id number] [place] [address] Neutrophils/100 WBC (Bld) 62.6 % Normal [facility] Comment on above: Order Comment: Speci men Type: BLOOD SPECIMENOrdering Facility: [facility] Address: [address] [place] [address] Performed By: #### 5 7021-8 ####[facility] LABCLIA [id number] [place] [address] Nucleated RBC (Bld) [#/Vol] 10*3/uL Normal <0.[address] [facility] Comment on above: Order Comment: Speci men Type: BLOOD SPECIMENOrdering Facility: [facility] Address: [address] [place] [address] Performed By: #### 5 7021-8 ####[facility] LABCLIA [id number] [place] [address] Nucleated RBC/100 WBC (Bld) [Ratio] 0.0 /[address] [facility] Comment on above: Order Comment: Speci men Type: BLOOD SPECIMENOrdering Facility: [facility] Address: [address] [place] [address] Performed By: #### 5 7021-8 ####[facility] LABCLIA [id number] [place] [address] Platelet mean volume (Bld) [Entitic vol] 9.1 fL Normal 9.0-12.[address] [facility] Comment on above: Order Comment: Speci men Type: BLOOD SPECIMENOrdering Facility: [facility] Address: [address] [place] [address] Performed By: #### 5 7021-8 ####[facility] LABCLIA [id number] [place] [address] Platelets (Bld) [#/Vol] 267 10*3/uL Normal 150-[address] [facility] Comment on above: Order Comment: Speci men Type: BLOOD SPECIMENOrdering Facility: [facility] Address: [address] [place] [address] Performed By: #### 5 7021-8 ####[facility] LABCLIA [id number] [place] [address] RBC (Bld) [#/Vol] 4.52 10*6/uL Normal 4.20-6.00 [facility] Comment on above: Order Comment: Speci men Type: BLOOD SPECIMENOrdering Facility: [facility] Address: [address] [place] [address] Performed By: #### 5 7021-8 ####[facility] LABCLIA [id number] [place] [address] WBC (Bld) [#/Vol] 8.93 10*3/uL Normal 3.70-11.00 [facility] Comment on above: Order Comment: Speci men Type: BLOOD SPECIMENOrdering Facility: [facility] Address: [address] [place] [address] Performed By: #### 5 7021-8 ####[facility] LABCLIA [id number] [place] [address] CT CHEST W IVCONon CT CHEST W IVCON * * *Final Report* * * DATE OF EXAM: Nov 10 2023 12:51PM [facility] 0539 - CT CHEST W IVCON / PROCEDURE REASON: Malignant neoplasm of unspecified part of unspecified bronchus or lung (HCC) * * * * Physician Interpretation * * * * RESULT: EXAMINATION: CHEST CT WITH CONTRAST CLINICAL HISTORY: Lung carcinoma Technique: Spiral CT acquisition of the chest from the thoracic inlet to the upper abdomen following IV contrast. MQ: CTCW_6 Contrast: 50 mL Omnipaque [address] Radiation dose: Integrated Dose-length product (DLP) for this visit = 314 mGy*cm CT Dose Reduction Employed: Automated exposure control (AEC) Comparison: CT chest 01/04/2023, PET/CT 08/04/2023. RESULT: Limitations: None. Lines, tubes, and devices: None. Lung parenchyma , airways, and pleural space: No consolidative process or pleural effusion. Moderate centrilobular emphysematous changes are again appreciated. Postoperative changes, compatible with prior right upper lobectomy, stable. Mild elevation of the right hemidiaphragm, volume loss involving the right hemithorax, unchanged. Previously described multiple bilateral pulmonary nodules have significantly improved or resolved. Linear area of atelectasis/scarring within the left upper lobe is appreciated, image 48, series 3, previously at this level, an irregularly marginated 1.2 cm nodule was appreciated. 4 mm subpleural left upper lobe nodule, image 91, series 3, previously 0.9 cm. 4 mm left lower lobe nodule, image 120, series 4 stable to less conspicuous. Numerous additional smaller lesions elsewhere are no longer appreciated. Lower neck, lymph nodes, and mediastinum: The visualized thyroid gland is stable. No substantial supraclavicular or axillary lymphadenopathy is identified. Subcentimeter mediastinal lymph nodes, stable. Mild soft tissue prominence at the right hilum, unchanged. Postoperative changes at the right hilum, stable. No substantial mediastinal or hilar adenopathy is identified. Small hiatal hernia is noted. Heart, pericardium, and thoracic vessels: Coronary artery calcification is noted. No substantial pericardial effusion is identified. Aneurysmal dilation of the ascending thoracic aorta measuring approximately 4.7-4.8 cm, stable. The descending thoracic aorta is normal in caliber. Bones/Soft Tissues: Degenerative change within the thoracic spine is again appreciated. Postoperative changes, compatible with prior median sternotomy. No osseous destructive process is identified. Upper Abdomen: A CT examination of the abdomen has been performed concurrently and will be dictated separately. Rn Or Lpn (topogram) images: No additional findings. IMPRESSION: 1. There has been significant improvement in size and number of the previously identified multiple bilateral pulmonary nodules, as detailed above. 2. Several subcentimeter mediastinal lymph nodes are again identified, unchanged. No substantial intrathoracic adenopathy is identified. 3. Aneurysmal dilation of the ascending thoracic aorta measuring approximately 4.7-4.8 cm, stable. Transcribe Date/Time: Nov 10 2023 3:53P Dictated by: LORRIE KAPADIA MD This examination was interpreted and the report reviewed and electronically signed by: LORRIE KAPADIA MD on Nov 10 2023 4:10PM EST Thank you for allowing us to participate in the care of your patient. Should there be any questions regarding this interpretation, please call [phone]. If you are unable to reach us at the number above, please feel free to contact [facility] at [phone]. [id number] CN Normal [facility] Comprehensive metabolic 2000 panelon 11-10-2023 Albumin [Mass/Vol] 4.4 g/dL Normal 3.9-4.9 [facility] Comment on above: Order Comment: Speci men Type: BLOOD SPECIMENOrdering Facility: [facility] Address: [address] [place] [address] Performed By: #### 2 4323-8 ####[facility] LABCLIA [id number] [place] [address] ALP [Catalytic activity/Vol] 116 U/L High 38-[address] [facility] Comment on above: Order Comment: Speci men Type: BLOOD SPECIMENOrdering Facility: [facility] Address: [address] [place] [address] Performed By: #### 2 4323-8 ####[facility] LABCLIA [id number] [place] [address] ALT [Catalytic activity/Vol] 7 U/L Low 10-[address] [facility] Comment on above: Order Comment: Speci men Type: BLOOD SPECIMENOrdering Facility: [facility] Address: [address] [place], [place] [id number] Performed By: #### 2 4323-8 ####[facility] LABCLIA [id number] [place] [address] Anion gap [Moles/Vol] 11 mmol/L Normal 9-18 [facility] Comment on above: Order Comment: Speci men Type: BLOOD SPECIMENOrdering Facility: [facility] Address: [address] [place] [address] Performed By: #### 2 4323-8 ####[facility] LABCLIA [id number] [place] [address] AST [Catalytic activity/Vol] 16 U/L Normal 14-[address] [facility] Comment on above: Order Comment: Speci men Type: BLOOD SPECIMENOrdering Facility: [facility] Address: [address] [place] [address] Performed By: #### 2 4323-8 ####[facility] LABCLIA [id number] [place] [address] Bilirubin [Mass/Vol] 0.4 mg/dL Normal 0.2-1.3 [facility] Comment on above: Order Comment: Speci men Type: BLOOD SPECIMENOrdering Facility: [facility] Address: [address] [place], [place] [address] Performed By: #### 2 4323-8 ####[facility] LABCLIA [id number] [place] [address] Calcium [Mass/Vol] 9.8 mg/dL Normal 8.5-10.2 [facility] Comment on above: Order Comment: Speci men Type: BLOOD SPECIMENOrdering Facility: [facility] Address: [address] [place], [place] [address] Performed By: #### 2 4323-8 ####[facility] LABCLIA [id number] [place] [address] Chloride [Moles/Vol] 103 mmol/L Normal 97-105 [facility] Comment on above: Order Comment: Speci men Type: BLOOD SPECIMENOrdering Facility: [facility] Address: [address] [place] [address] Performed By: #### 2 4323-8 ####[facility] LABCLIA [id number] [place] [address] CO2 [Moles/Vol] 24 mmol/L Normal 22-[address] [facility] Comment on above: Order Comment: Speci men Type: BLOOD SPECIMENOrdering Facility: [facility] Address: [address] [place] [address] Performed By: #### 2 4323-8 ####[facility] LABCLIA [id number] [place] [address] Creatinine [Mass/Vol] 0.99 mg/dL Normal 0.73-1.22 [facility] Comment on above: Order Comment: Speci men Type: BLOOD SPECIMENOrdering Facility: [facility] Address: [address] [place] [address] Performed By: #### 2 4323-8 ####[facility] LABCLIA [id number] [place] [address] Creatinine and Glomerular filtration rate.predicted panel (S/P/Bld) 81 mL/min/1.73m??? Normal >=[address] [facility] Comment on above: Order Comment: Speci men Type: BLOOD SPECIMENOrdering Facility: [facility] Address: [address] [place] [address] Result Comment: Karin mated Glomerular Filtration Rate [...] actual GFR. Performed By: #### 2 4323-8 ####[facility] LABCLIA [id number] [place] [address] Glucose [Mass/Vol] 96 mg/dL Normal 74-99 [facility] Comment on above: Order Comment: Derek krishnamurthy Type: BLOOD SPECIMENOrdering Facility: [facility] Address: [address] [place] [address] Result Comment: The [place] [employer] (ADA) provides guidance for cutoff [...] Standards of Medical Care in Diabetes 2016, [place] [employer]. Diabetes Care. 2016.39(Suppl 1). Performed By: #### 2 4323-8 ####[facility] LABCLIA [id number] [place] [address] Potassium [Moles/Vol] 3.8 mmol/L Normal 3.7-5.1 [facility] Comment on above: Order Comment: Derek krishnamurthy Type: BLOOD SPECIMENOrdering Facility: [facility] Address: [address] [place] [address] Performed By: #### 2 4323-8 ####[facility] LABCLIA [id number] [place] [address] Protein [Mass/Vol] 8.2 g/dL High 6.3-8.0 [facility] Comment on above: Order Comment: Derek krishnamurthy Type: BLOOD SPECIMENOrdering Facility: [facility] Address: [address] [place] [address] Performed By: #### 2 4323-8 ####[facility] LABCLIA [id number] [place] [address] Sodium [Moles/Vol] 138 mmol/L Normal 136-144 [facility] Comment on above: Order Comment: Speci men Type: BLOOD SPECIMENOrdering Facility: [facility] Address: [address] [place] [address] Performed By: #### 2 4323-8 ####[facility] LABCLIA [id number] [place] [address] Urea nitrogen [Mass/Vol] 10 mg/dL Normal 9-[address] [facility] Comment on above: Order Comment: Speci men Type: BLOOD SPECIMENOrdering Facility: [facility] Address: [address] [place] [address] Performed By: #### 2 4323-8 ####[facility] LABCLIA [id number] [place] [address] Office Visiton 10-06-2023 Follow-up visit [id number] Alessio Burns 1950 M Date Provider Department Center 10/06/2023 SYDNIE FOFANA HILL Friedman Family History Problem Relation Age of Onset Diabetes Mother Heart disease Mother Heart disease Father Coronary artery disease Sister Family Status - Relation Status Age at Mother Father Sister Level of Service:45784 [place] OFFICE/OUTPATIENT ESTABLISHED MOD MDM 30 MIN Normal [facility] CNOVSPon 08-11-2023 CNOVSP Visit (SP) Office (HEMASA) ALESSIO BURNS ([id number]) 1950 M [employer]* Date Time Provider Department 08/11/23 2:30 PM JAYA BAI During your visit today, we recorded the following information about you: Temperature Pulse Respiration Blood pressure 97.4 degrees 59/minute 16/minute 148/60 Weight 87.9 kg Jaya Bai MD 08/11/2023 10:23 PM Signed NAME: Alessio Burns CLINIC NO.: [id number] DATE OF SERVICE: August 11, 2023 (Zac) [...] 6-month gap between resection and presentation to tx. He remains at high risk because of [...] Follow-up with CT advised. 05/30/2023 - EGD ([facility]): Duodenum: Mild bulbar duodenitis, otherwise normal. Stomach: [...] and les (more content not included)... Normal [facility] CNPNon 08-11-2023 CNPN Telephone (HEMTSA) ALESSIO BURNS ([id number]) 1950 [place]* Date Time Provider Department 08/11/23 ARABELLA STEELE During your visit today, we recorded the following information about you: Arabella Steele RN 08/11/2023 3:25 PM Signed Call received from Chiara @[employer] to inform that Mag citrate has been a backordered item for a while and not available. Would you like to order something else? FYI we do have 2 bottles here but pharmacy closes at 4 and patient lives in [place] JERONIMO Guevara Vivek, MD 08/11/2023 4:35 [...] (hyperlipidemia) [E78.5] (more content not included)... Normal [facility] CNPN Telephone (NCCAP) ALESSIO BURNS ([id number]) 1950 [place]* Date Time Provider Department 08/11/23 JAYA BAI NCCAP During your visit today, we recorded the following information about you: Ania Laughlin 08/11/2023 3:05 PM Signed Triage: Please see Dr. Bai note below. Thank you! Arabella Rachel, JERONIMO 08/11/2023 4:40 PM Signed I started a different encounter in regards to the Mag citrate, [facility] in [place] says that this has been on back order for a while. We do however have 2 bottles here but close at 4 AND he lives in [place]. Waiting on Dr Bai to see if [...] encouraged to call for any further needs. Wilmer Rosas RN Allergies As of Date: 08/11/2023 [...] HTN (hypertension (more content not included)... Normal [facility] CBC W Auto Differential pane l (Bld)on 08-04-2023 Basophils (Bld) [#/Vol] 0.07 10*3/uL Normal <0.[address] [facility] Comment on above: Order Comment: Speci men Type: BLOOD SPECIMENOrdering Facility: [facility] Address: [address] [place] [address] Performed By: #### 5 7021-8 ####[facility] LABCLIA [id number] [place] [address] Basophils/100 WBC (Bld) 0.7 % Normal [facility] Comment on above: Order Comment: Speci men Type: BLOOD SPECIMENOrdering Facility: [facility] Address: [address] [place] [address] Performed By: #### 5 7021-8 ####[facility] LABCLIA [id number] [place] [address] Differential cell count method Nom (Bld) Auto Normal [facility] Comment on above: Order Comment: Speci men Type: BLOOD SPECIMENOrdering Facility: [facility] Address: [address] [place] [address] Performed By: #### 5 7021-8 ####[facility] LABCLIA [id number] [place] [address] Eosinophils (Bld) [#/Vol] 0.56 10*3/uL High <0.[address] [facility] Comment on above: Order Comment: Speci men Type: BLOOD SPECIMENOrdering Facility: [facility] Address: [address] [place] [address] Performed By: #### 5 7021-8 ####[facility] LABCLIA [id number] [place] [address] Eosinophils/100 WBC (Bld) 6.0 % Normal [facility] Comment on above: Order Comment: Speci men Type: BLOOD SPECIMENOrdering Facility: [facility] Address: [address] [place] [address] Performed By: #### 5 7021-8 ####[facility] LABCLIA [id number] [place] [address] Erythrocyte distribution width (RBC) [Ratio] 13.2 % Normal 11.5-15.[address] [facility] Comment on above: Order Comment: Speci men Type: BLOOD SPECIMENOrdering Facility: [facility] Address: [address] [place] [address] Performed By: #### 5 7021-8 ####[facility] LABCLIA [id number] [place] [address] Hematocrit (Bld) [Volume fraction] 42.9 % Normal 39.0-51.[address] [facility] Comment on above: Order Comment: Speci men Type: BLOOD SPECIMENOrdering Facility: [facility] Address: [address] [place] [address] Performed By: #### 5 7021-8 ####[facility] LABCLIA [id number] [place] [address] Hemoglobin (Bld) [Mass/Vol] 13.9 g/dL Normal 13.0-17.[address] [facility] Comment on above: Order Comment: Speci men Type: BLOOD SPECIMENOrdering Facility: [facility] Address: [address] [place] [address] Performed By: #### 5 7021-8 ####[facility] LABCLIA [id number] [place] [address] Immature granulocytes (Bld) [#/Vol] 0.09 10*3/uL Normal <0.[address] [facility] Comment on above: Order Comment: Speci men Type: BLOOD SPECIMENOrdering Facility: [facility] Address: [address] [place] [address] Performed By: #### 5 7021-8 ####[facility] LABCLIA [id number] [place] [address] Immature granulocytes/100 WBC (Bld) 1.0 % Normal [facility] Comment on above: Order Comment: Speci men Type: BLOOD SPECIMENOrdering Facility: [facility] Address: [address] [place] [address] Performed By: #### 5 7021-8 ####[facility] LABCLIA [id number] [place] [address] Lymphocytes (Bld) [#/Vol] 2.14 10*3/uL Normal 1.00-4.[address] [facility] Comment on above: Order Comment: Speci men Type: BLOOD SPECIMENOrdering Facility: [facility] Address: [address] [place] [address] Performed By: #### 5 7021-8 ####[facility] LABCLIA [id number] [place] [address] Lymphocytes/100 WBC (Bld) 22.8 % Normal [facility] Comment on above: Order Comment: Speci men Type: BLOOD SPECIMENOrdering Facility: [facility] Address: [address] [place] [address] Performed By: #### 5 7021-8 ####[facility] LABCLIA [id number] [place] [address] MCH (RBC) [Entitic mass] 30.0 pg Normal 26.0-34.[address] [facility] Comment on above: Order Comment: Speci men Type: BLOOD SPECIMENOrdering Facility: [facility] Address: [address] [place] [address] Performed By: #### 5 7021-8 ####[facility] LABCLIA [id number] [place] [address] MCHC (RBC) [Mass/Vol] 32.4 g/dL Normal 30.5-36.0 [facility] Comment on above: Order Comment: Speci men Type: BLOOD SPECIMENOrdering Facility: [facility] Address: [address] [place] [address] Performed By: #### 5 7021-8 ####[facility] LABCLIA [id number] [place] [address] MCV (RBC) [Entitic vol] 92.7 fL Normal 80.0-100.0 [facility] Comment on above: Order Comment: Speci men Type: BLOOD SPECIMENOrdering Facility: [facility] Address: [address] [place] [address] Performed By: #### 5 7021-8 ####[facility] LABCLIA [id number] [place] [address] Monocytes (Bld) [#/Vol] 1.14 10*3/uL High <0.[address] [facility] Comment on above: Order Comment: Speci men Type: BLOOD SPECIMENOrdering Facility: [facility] Address: [address] [place] [address] Performed By: #### 5 7021-8 ####[facility] LABCLIA [id number] [place] [address] Monocytes/100 WBC (Bld) 12.2 % Normal [facility] Comment on above: Order Comment: Speci men Type: BLOOD SPECIMENOrdering Facility: [facility] Address: [address] [place] [address] Performed By: #### 5 7021-8 ####[facility] LABCLIA [id number] [place] [address] Neutrophils (Bld) [#/Vol] 5.37 10*3/uL Normal 1.45-7.[address] [facility] Comment on above: Order Comment: Speci men Type: BLOOD SPECIMENOrdering Facility: [facility] Address: [address] [place] [address] Performed By: #### 5 7021-8 ####[facility] LABCLIA [id number] [place] [address] Neutrophils/100 WBC (Bld) 57.3 % Normal [facility] Comment on above: Order Comment: Speci men Type: BLOOD SPECIMENOrdering Facility: [facility] Address: [address] [place] [address] Performed By: #### 5 7021-8 ####[facility] LABIA [id number] [place] [address] Nucleated RBC (Bld) [#/Vol] 10*3/uL Normal <0.[address] [facility] Comment on above: Order Comment: Speci men Type: BLOOD SPECIMENOrdering Facility: [facility] Address: [address] [place], [place] [address] Performed By: #### 5 7021-8 ####[facility] LABCLIA [id number] [place] [address] Nucleated RBC/100 WBC (Bld) [Ratio] 0.0 /[address] [facility] Comment on above: Order Comment: Speci men Type: BLOOD SPECIMENOrdering Facility: [facility] Address: [address] [place] [address] Performed By: #### 5 7021-8 ####[facility] LABCLIA [id number] [place] [address] Platelet mean volume (Bld) [Entitic vol] 8.8 fL Low 9.0-12.[address] [facility] Comment on above: Order Comment: Speci men Type: BLOOD SPECIMENOrdering Facility: [facility] Address: [address] [place] [address] Performed By: #### 5 7021-8 ####[facility] LABCLIA [id number] [place] [address] Platelets (Bld) [#/Vol] 282 10*3/uL Normal 150-[address] [facility] Comment on above: Order Comment: Speci men Type: BLOOD SPECIMENOrdering Facility: [facility] Address: [address] [place] [address] Performed By: #### 5 7021-8 ####[facility] LABCLIA [id number] [place] [address] RBC (Bld) [#/Vol] 4.63 10*6/uL Normal 4.20-6.00 [facility] Comment on above: Order Comment: Speci men Type: BLOOD SPECIMENOrdering Facility: [facility] Address: [address] [place] [address] Performed By: #### 5 7021-8 ####[facility] LABCLIA [id number] [place] [address] WBC (Bld) [#/Vol] 9.37 10*3/uL Normal 3.70-11.00 [facility] Comment on above: Order Comment: Speci men Type: BLOOD SPECIMENOrdering Facility: [facility] Address: [address] [place] [address] Performed By: #### 5 7021-8 ####[facility] LABCLIA [id number] [place] [address] Comprehensive metabolic 2000 panelon 08-04-2023 Albumin [Mass/Vol] 4.7 g/dL Normal 3.9-4.9 [facility] Comment on above: Order Comment: Speci men Type: BLOOD SPECIMENOrdering Facility: [facility] Address: [address] [place] [address] Performed By: #### 2 4323-8 ####[facility] LABCLIA [id number] [place] [address] ALP [Catalytic activity/Vol] 93 U/L Normal 38-[address] [facility] Comment on above: Order Comment: Speci men Type: BLOOD SPECIMENOrdering Facility: [facility] Address: [address] [place] [address] Performed By: #### 2 4323-8 ####[facility] LABCLIA [id number] [place] [address] ALT [Catalytic activity/Vol] 14 U/L Normal 10-[address] [facility] Comment on above: Order Comment: Speci men Type: BLOOD SPECIMENOrdering Facility: [facility] Address: [address] [place] [address] Performed By: #### 2 4323-8 ####[facility] LABCLIA [id number] [place] [address] Anion gap [Moles/Vol] 9 mmol/L Normal 9-18 [facility] Comment on above: Order Comment: Speci men Type: BLOOD SPECIMENOrdering Facility: [facility] Address: [address] [place] [address] Performed By: #### 2 4323-8 ####[facility] LABCLIA [id number] [place] [address] AST [Catalytic activity/Vol] 18 U/L Normal 14-[address] [facility] Comment on above: Order Comment: Speci men Type: BLOOD SPECIMENOrdering Facility: [facility] Address: [address] [place] [address] Performed By: #### 2 4323-8 ####[facility] LABCLIA [id number] [place] [address] Bilirubin [Mass/Vol] 0.3 mg/dL Normal 0.2-1.3 [facility] Comment on above: Order Comment: Speci men Type: BLOOD SPECIMENOrdering Facility: [facility] Address: [address] [place] [address] Performed By: #### 2 4323-8 ####[facility] LABCLIA [id number] [place] [address] Calcium [Mass/Vol] 9.3 mg/dL Normal 8.5-10.2 [facility] Comment on above: Order Comment: Speci men Type: BLOOD SPECIMENOrdering Facility: [facility] Address: [address] [place] [address] Performed By: #### 2 4323-8 ####[facility] LABCLIA [id number] [place] [address] Chloride [Moles/Vol] 103 mmol/L Normal 97-105 [facility] Comment on above: Order Comment: Speci men Type: BLOOD SPECIMENOrdering Facility: [facility] Address: [address] [place] [address] Performed By: #### 2 4323-8 ####[facility] LABCLIA [id number] [place] [address] CO2 [Moles/Vol] 26 mmol/L Normal 22-[address] [facility] Comment on above: Order Comment: Speci men Type: BLOOD SPECIMENOrdering Facility: [facility] Address: [address] [place] [address] Performed By: #### 2 4323-8 ####[facility] LABCLIA [id number] [place] [address] Creatinine [Mass/Vol] 1.06 mg/dL Normal 0.73-1.22 [facility] Comment on above: Order Comment: Speci men Type: BLOOD SPECIMENOrdering Facility: [facility] Address: [address] [place] [address] Performed By: #### 2 4323-8 ####[facility] LABCLIA [id number] [place] [address] Creatinine and Glomerular filtration rate.predicted panel (S/P/Bld) 75 mL/min/1.73m??? Normal >=[address] [facility] Comment on above: Order Comment: Speci men Type: BLOOD SPECIMENOrdering Facility: [facility] Address: [address] [place] [address] Result Comment: Karin mated Glomerular Filtration Rate [...] actual GFR. Performed By: #### 2 4323-8 ####[facility] LABCLIA [id number] [place] [address] Glucose [Mass/Vol] 97 mg/dL Normal 74-99 [facility] Comment on above: Order Comment: Speci men Type: BLOOD SPECIMENOrdering Facility: [facility] Address: [address] [place] [address] Result Comment: The [place] Diabetes Association (ADA) provides guidance for cutoff [...] Standards of Medical Care in Diabetes 2016, [place] [employer]. Diabetes Care. 2016.39(Suppl 1). Performed By: #### 2 4323-8 ####[facility] LABCLIA [id number] [place] [address] Potassium [Moles/Vol] 3.9 mmol/L Normal 3.7-5.1 [facility] Comment on above: Order Comment: Speci men Type: BLOOD SPECIMENOrdering Facility: [facility] Address: [address] [place] [address] Performed By: #### 2 4323-8 ####[facility] LABCLIA [id number] [place] [address] Protein [Mass/Vol] 7.8 g/dL Normal 6.3-8.0 [facility] Comment on above: Order Comment: Speci men Type: BLOOD SPECIMENOrdering Facility: [facility] Address: [address] [place] [address] Performed By: #### 2 4323-8 ####[facility] LABCLIA [id number] [place] [address] Sodium [Moles/Vol] 138 mmol/L Normal 136-144 [facility] Comment on above: Order Comment: Speci men Type: BLOOD SPECIMENOrdering Facility: [facility] Address: [address] [place] [address] Performed By: #### 2 4323-8 ####[facility] LABCLIA [id number] [place] [address] Urea nitrogen [Mass/Vol] 18 mg/dL Normal 9-[address] [facility] Comment on above: Order Comment: Speci men Type: BLOOD SPECIMENOrdering Facility: [facility] Address: [address] [place] [address] Performed By: #### 2 4323-8 ####[facility] LABCLIA [id number] [place] [address] NM PET/CT SKULL-THIGH SUBQon 08-04-2023 NM PET/CT [...] any questions regarding this interpretation, please call [phone]. If you are unable to reach us at the number above, please feel free to contact [facility] at [phone]. [id number] CN Normal [facility] 05-30-2023 L Specimen: [id number] Received: 05/30/23 Status: WILMAR Espino Num: [id number] Spec Type: Surgical Subm Dr: Paramjit Spring MD Tissues: A GASTRIC FOR HP (GASTRIC HP) Procedures: HE/2, Gross/Micro L4, H PYLORI Age/ Patient Sex Location Account Attending Physician Alessio Burns 73/M [id number] Paramjit Spring MD SPEC NUM: [id number] RECD: 05/30/23 STATUS: WILMAR ESPINO NUM: [id number] EDIN: 05/30/23- [facility] DR: Paramjit Spring MD ENTERED: 05/30/23 [facility] DR: KARLA TYPE: Surgical DEPT: S ORDERED: HE/2, Gross/Micro [...] The microscopic examination confirms the diagnosis. Specimen: [id number] Received: 05/30/23 Status: WILMAR Espino Num: [id number] Spec Type: Surgical Subm Dr: Paramjit Spring MD Tissues: A GASTRIC FOR HP (GASTRIC HP) Procedures: HE/2, Gross/Micro L4, H PYLORI Patient: Alessio Burns [id number] (Continued) Specimen: [id number] Received: 05/30/23 (Continued) Signed (signature on file) Andrea Davis MD 06/01/23 1014 Specimen: [id number] Received: 05/30/23 Status: WILMAR Espino Num: [id number] Spec Type: Surgical Subm Dr: Paramjit Spring MD Tissues: A GASTRIC FOR HP (GASTRIC HP) Procedures: HE/2, Gross/Micro L4, H PYLORI Patient: Alessio Burns [id number] (Continued) Specimen: [id number] Received: 05/30/23 (Continued) CPT Codes 33491 01209 Specimen: [id number] Received: 05/30/23 Status: WILMAR Espino Num: [id number] Spec Type: Surgical Subm Dr: Paramjit Spring MD Tissues: A GASTRIC FOR HP (GASTRIC HP) Procedures: HE/2, Gross/Micro L4, H PYLORI Patient: Alessio Burns [id number] (Continued) Signed (signature on file) Andrea Davis MD 06/01/23 1014 [facility] CNOVSPon 05-05-2023 CNOVSP Visit (SP) Office ([facility]) ALESSIO BURNS ([id number]) 1950 [facility]* Date Time Provider Department 05/05/23 2:30 PM JAYA BAI During your visit today, we recorded the following information about you: Temperature Pulse Respiration Blood pressure 97.6 degrees 57/minute 16/minute 119/54 Weight Height 82.6 kg 1.676 m Jaya Bai MD 05/16/2023 1:39 PM Signed NAME: Alessio Burns CLINIC NO.: [id number] DATE OF SERVICE: May 05, 2023 (Zac) [...] 6-month gap between resection and presentation to tx. He remains at high risk because of [...] growth. U (more content not included)... [facility] ([facility]) ALESSIO BURNS ([id number]) 1950 [address]* Date Time Provider Department 05/05/23 JAYA BAI During your visit today, we recorded the following information about you: Ania Laughlin 05/05/2023 3:12 PM Signed Refer to GI for upper endoscopy for positive PET/CT Katty/Agustín: Can you please refer patient and follow up? He states he has seen Dr. Queen in the past but would prefer to stay locally still. Karen Boyle 05/10/2023 8:30 AM Signed Katty: Information ready for you. Gale Mejias 05/16/2023 2:20 PM Signed Records faxed to [facility] Strange. Karen Ugarte 05/18/2023 10:45 AM Signed Called [facility] spoke with Jaylene. They have received this referral and their rn mds coordinator will be calling patient to get scheduled. Karen Chin 05/22/2023 1:26 PM Signed Called [facility] spoke with Gita. Patient is scheduled for EGD with Dr. Spring on 05/30. Karen Hernandez Allergies As of Date: 05/05/2023 (No Known Allergies) Date Reviewed: 05/05/2023 Reviewed by: Prachi Stephens Ma - Fully Assessed Reason for Visit: Referral Information [9956] Cmt: GI Prescriptions as of 05/22/2023 - [...] (HCC) [J43.1] 07/21/2022 Encounter Status:Closed by ANIA LAUGHLIN on 05/22/[address] [facility] CBC W Auto Differential pane l (Bld)on 04-28-2023 Basophils (Bld) [#/Vol] 0.06 10*3/uL Normal <0.[address] [facility] Comment on above: Order Comment: Speci men Type: BLOOD SPECIMENOrdering Facility: [facility] Address: [address] [address] Performed By: #### 5 7021-8 ####[facility] LABCLIA [id number] [place] [address] Basophils/100 WBC (Bld) 0.7 % Normal [facility] Comment on above: Order Comment: Speci men Type: BLOOD SPECIMENOrdering Facility: [facility] Address: [address] [address] Performed By: #### 5 7021-8 ####[facility] LABCLIA [id number] [place] [address] Differential cell count method Nom (Bld) Auto Normal [facility] Comment on above: Order Comment: Speci men Type: BLOOD SPECIMENOrdering Facility: [facility] Address: [address] [place] [address] Performed By: #### 5 7021-8 ####[facility] LABCLIA [id number] [place] [address] Eosinophils (Bld) [#/Vol] 0.32 10*3/uL Normal <0.[address] [facility] Comment on above: Order Comment: Speci men Type: BLOOD SPECIMENOrdering Facility: [facility] Address: [address] [place] [address] Performed By: #### 5 7021-8 ####[facility] LABIA [id number] [place] [address] Eosinophils/100 WBC (Bld) 3.5 % Normal [facility] Comment on above: Order Comment: Speci men Type: BLOOD SPECIMENOrdering Facility: [facility] Address: [address] [place] [address] Performed By: #### 5 7021-8 ####[facility] LABCLIA [id number] [place] [address] Erythrocyte distribution width (RBC) [Ratio] 13.8 % Normal 11.5-15.[address] [facility] Comment on above: Order Comment: Speci men Type: BLOOD SPECIMENOrdering Facility: [facility] Address: [address] [place] [address] Performed By: #### 5 7021-8 ####[facility] LABIA [id number] [place] [address] Hematocrit (Bld) [Volume fraction] 42.2 % Normal 39.0-51.[address] [facility] Comment on above: Order Comment: Speci men Type: BLOOD SPECIMENOrdering Facility: [facility] Address: [address] [address] Performed By: #### 5 7021-8 ####[facility] LABCLIA [id number] [place] [address] Hemoglobin (Bld) [Mass/Vol] 13.8 g/dL Normal 13.0-17.[address] [facility] Comment on above: Order Comment: Speci men Type: BLOOD SPECIMENOrdering Facility: [facility] Address: [address] [place] [address] Performed By: #### 5 7021-8 ####[facility] LABCLIA [id number] [place] [address] Immature granulocytes (Bld) [#/Vol] 0.06 10*3/uL Normal <0.[address] [facility] Comment on above: Order Comment: Speci men Type: BLOOD SPECIMENOrdering Facility: [facility] Address: [address] [place] [address] Performed By: #### 5 7021-8 ####[facility] LABCLIA [id number] [place] [address] Immature granulocytes/100 WBC (Bld) 0.7 % Normal [facility] Comment on above: Order Comment: Speci men Type: BLOOD SPECIMENOrdering Facility: [facility] Address: [address] [place] [address] Performed By: #### 5 7021-8 ####[facility] LABCLIA [id number] [place] [address] Lymphocytes (Bld) [#/Vol] 1.74 10*3/uL Normal 1.00-4.[address] [facility] Comment on above: Order Comment: Speci men Type: BLOOD SPECIMENOrdering Facility: [facility] Address: [address] [place] [address] Performed By: #### 5 7021-8 ####[facility] LABCLIA [id number] [place] [address] Lymphocytes/100 WBC (Bld) 19.0 % Normal [facility] Comment on above: Order Comment: Speci men Type: BLOOD SPECIMENOrdering Facility: [facility] Address: [address] [place] [address] Performed By: #### 5 7021-8 ####[facility] LABCLIA [id number] [place] [address] MCH (RBC) [Entitic mass] 29.7 pg Normal 26.0-34.[address] [facility] Comment on above: Order Comment: Speci men Type: BLOOD SPECIMENOrdering Facility: [facility] Address: [address] [place] [address] Performed By: #### 5 7021-8 ####[facility] LABCLIA [id number] [place] [address] MCHC (RBC) [Mass/Vol] 32.7 g/dL Normal 30.5-36.0 [facility] Comment on above: Order Comment: Speci men Type: BLOOD SPECIMENOrdering Facility: [facility] Address: [address] [place] [address] Performed By: #### 5 7021-8 ####[facility] LABCLIA [id number] [place] [address] MCV (RBC) [Entitic vol] 90.9 fL Normal 80.0-100.0 [facility] Comment on above: Order Comment: Speci men Type: BLOOD SPECIMENOrdering Facility: [facility] Address: [address] [place], [place] [address] Performed By: #### 5 7021-8 ####[facility] LABCLIA [id number] [place] [address] Monocytes (Bld) [#/Vol] 1.18 10*3/uL High <0.[address] [facility] Comment on above: Order Comment: Speci men Type: BLOOD SPECIMENOrdering Facility: [facility] Address: [address] [place] [address] Performed By: #### 5 7021-8 ####[facility] LABCLIA [id number] [place] [address] Monocytes/100 WBC (Bld) 12.9 % Normal [facility] Comment on above: Order Comment: Speci men Type: BLOOD SPECIMENOrdering Facility: [facility] Address: [address] [place] [address] Performed By: #### 5 7021-8 ####[facility] LABCLIA [id number] [place] [address] Neutrophils (Bld) [#/Vol] 5.78 10*3/uL Normal 1.45-7.[address] [facility] Comment on above: Order Comment: Speci men Type: BLOOD SPECIMENOrdering Facility: [facility] Address: [address] [place] [address] Performed By: #### 5 7021-8 ####[facility] LABCLIA [id number] [place] [address] Neutrophils/100 WBC (Bld) 63.2 % Normal [facility] Comment on above: Order Comment: Speci men Type: BLOOD SPECIMENOrdering Facility: [facility] Address: [address] [place] [address] Performed By: #### 5 7021-8 ####[facility] LABCLIA [id number] [place] [address] Nucleated RBC (Bld) [#/Vol] 10*3/uL Normal <0.[address] [facility] Comment on above: Order Comment: Speci men Type: BLOOD SPECIMENOrdering Facility: [facility] Address: [address] [place], [place] [address] Performed By: #### 5 7021-8 ####[facility] LABCLIA [id number] [place] [address] Nucleated RBC/100 WBC (Bld) [Ratio] 0.0 /[address] [facility] Comment on above: Order Comment: Speci men Type: BLOOD SPECIMENOrdering Facility: [facility] Address: [address] [place] [address] Performed By: #### 5 7021-8 ####[facility] LABCLIA [id number] [place] [address] Platelet mean volume (Bld) [Entitic vol] 9.3 fL Normal 9.0-12.[address] [facility] Comment on above: Order Comment: Speci men Type: BLOOD SPECIMENOrdering Facility: [facility] Address: [address] [place] [address] Performed By: #### 5 7021-8 ####[facility] LABCLIA [id number] [place] [address] Platelets (Bld) [#/Vol] 226 10*3/uL Normal 150-[address] [facility] Comment on above: Order Comment: Speci men Type: BLOOD SPECIMENOrdering Facility: [facility] Address: [address] [place] [address] Performed By: #### 5 7021-8 ####[facility] LABCLIA [id number] [place] [address] RBC (Bld) [#/Vol] 4.64 10*6/uL Normal 4.20-6.00 [facility] Comment on above: Order Comment: Speci men Type: BLOOD SPECIMENOrdering Facility: [facility] Address: [address] [place] [address] Performed By: #### 5 7021-8 ####[facility] LABIA [id number] [place] [address] WBC (Bld) [#/Vol] 9.14 10*3/uL Normal 3.70-11.00 [facility] Comment on above: Order Comment: Speci men Type: BLOOD SPECIMENOrdering Facility: [facility] Address: [address] [place] [address] Performed By: #### 5 7021-8 ####[facility] LABCLIA [id number] [place] [address] Comprehensive metabolic 2000 panelon 04-28-2023 Albumin [Mass/Vol] 4.4 g/dL Normal 3.9-4.9 [facility] Comment on above: Order Comment: Speci men Type: BLOOD SPECIMENOrdering Facility: [facility] Address: [address] [place] [address] Performed By: #### 2 4323-8 ####[facility] LABCLIA [id number] [place] [address] ALP [Catalytic activity/Vol] 89 U/L Normal 38-[address] [facility] Comment on above: Order Comment: Speci men Type: BLOOD SPECIMENOrdering Facility: [facility] Address: [address] [place] [address] Performed By: #### 2 4323-8 ####[facility] LABCLIA [id number] [place] [address] ALT [Catalytic activity/Vol] 8 U/L Low 10-[address] [facility] Comment on above: Order Comment: Speci men Type: BLOOD SPECIMENOrdering Facility: [facility] Address: [address] [place] [address] Performed By: #### 2 4323-8 ####[facility] LABCLIA [id number] [place] [address] Anion gap [Moles/Vol] 10 mmol/L Normal 9-18 [facility] Comment on above: Order Comment: Speci men Type: BLOOD SPECIMENOrdering Facility: [facility] Address: [address] [place] [address] Performed By: #### 2 4323-8 ####[facility] LABCLIA [id number] [place] [address] AST [Catalytic activity/Vol] 15 U/L Normal 14-[address] [facility] Comment on above: Order Comment: Speci men Type: BLOOD SPECIMENOrdering Facility: [facility] Address: [address] [address] Performed By: #### 2 4323-8 ####[facility] LABCLIA [id number] [place] [address] Bilirubin [Mass/Vol] 0.4 mg/dL Normal 0.2-1.3 [facility] Comment on above: Order Comment: Speci men Type: BLOOD SPECIMENOrdering Facility: [facility] Address: [address] [address] Performed By: #### 2 4323-8 ####[facility] LABCLIA [id number] [place] [address] Calcium [Mass/Vol] 9.4 mg/dL Normal 8.5-10.2 [facility] Comment on above: Order Comment: Speci men Type: BLOOD SPECIMENOrdering Facility: [facility] Address: [address] [place] [address] Performed By: #### 2 4323-8 ####[facility] LABCLIA [id number] [place] [address] Chloride [Moles/Vol] 103 mmol/L Normal 97-105 [facility] Comment on above: Order Comment: Speci men Type: BLOOD SPECIMENOrdering Facility: [facility] Address: [address] [place] [address] Performed By: #### 2 4323-8 ####[facility] LABCLIA [id number] [place] [address] CO2 [Moles/Vol] 24 mmol/L Normal 22-[address] [facility] Comment on above: Order Comment: Speci men Type: BLOOD SPECIMENOrdering Facility: [facility] Address: [address] [place] [address] Performed By: #### 2 4323-8 ####[facility] LABCLIA [id number] [place] [address] Creatinine [Mass/Vol] 1.20 mg/dL Normal 0.73-1.22 [facility] Comment on above: Order Comment: Derek krishnamurthy Type: BLOOD SPECIMENOrdering Facility: [facility] Address: [address] [place], [place] [address] Performed By: #### 2 4323-8 ####[facility] LABCLIA [id number] [place] [address] Creatinine and Glomerular filtration rate.predicted panel (S/P/Bld) 64 mL/min/1.73m??? Normal >=[address] [facility] Comment on above: Order Comment: Derek krishnamurthy Type: BLOOD SPECIMENOrdering Facility: [facility] Address: [address] [place] [address] Result Comment: Karin mated Glomerular Filtration Rate [...] actual GFR. Performed By: #### 2 4323-8 ####[facility] LABCLIA [id number] [place] [address] Glucose [Mass/Vol] 100 mg/dL High 74-99 [facility] Comment on above: Order Comment: Derek krishnamurthy Type: BLOOD SPECIMENOrdering Facility: [facility] Address: [address] [place], [place] [address] Result Comment: The [place] [employer] (ADA) provides guidance for cutoff [...] Standards of Medical Care in Diabetes 2016, [place] [employer]. Diabetes Care. 2016.39(Suppl 1). Performed By: #### 2 4323-8 ####[facility] LABCLIA [id number] [place] [address] Potassium [Moles/Vol] 4.2 mmol/L Normal 3.7-5.1 [facility] Comment on above: Order Comment: Speci men Type: BLOOD SPECIMENOrdering Facility: [facility] Address: [address] [address] Performed By: #### 2 4323-8 ####[facility] LABCLIA [id number] [place] [address] Protein [Mass/Vol] 7.3 g/dL Normal 6.3-8.0 [facility] Comment on above: Order Comment: Speci men Type: BLOOD SPECIMENOrdering Facility: [facility] Address: [address] [address] Performed By: #### 2 4323-8 ####[facility] LABCLIA [id number] [place] [address] Sodium [Moles/Vol] 137 mmol/L Normal 136-144 [facility] Comment on above: Order Comment: Speci men Type: BLOOD SPECIMENOrdering Facility: [facility] Address: [address] [address] Performed By: #### 2 4323-8 ####[facility] LABCLIA [id number] [place] [address] Urea nitrogen [Mass/Vol] 19 mg/dL Normal 9-[address] [facility] Comment on above: Order Comment: Speci men Type: BLOOD SPECIMENOrdering Facility: [facility] Address: [address] [address] Performed By: #### 2 4323-8 ####[facility] LABCLIA [id number] [place] [address] NM PET/CT SKULL-THIGH SUBQon 04-28-2023 NM PET/CT [...] the intracranial structures due to the physiologic patel matter uptake. CHEST: Lungs and tracheobronchial tree: [...] MUSCULOSKELETAL: There are no hypermetabolic osseous lesions. Rn Or Lpn (topogram) images: No additional findings. IMPRESSION: Head [...] interpretation, plea (more content not included)... Normal [facility] Office Visiton 04-05-2023 Follow-up visit [id number] Alessio Burns 1950 M Date Provider Department Center 04/05/2023 NiSYDNIE [facility] Family History Problem Relation Age of Onset Diabetes Mother Heart disease Mother Heart disease Father Coronary artery disease Sister Family Status - Relation Status Age at Mother Father Sister Level of Service:47486 [place] OFFICE/OUTPATIENT ESTABLISHED MOD MDM 30-39 MIN Normal [facility] CNOVSPon 03-03-2023 CNOVSP Visit (SP) Office ([place]) ALESSIO BURNS ([id number]) 1950 M [facility]* Date Time Provider Department 03/03/23 1:30 PM JAYA BAI During your visit today, we recorded the following information about you: Temperature Pulse Respiration Blood pressure 97.6 degrees 61/minute 16/minute 110/59 Weight Height 83.6 kg 1.676 m Jaya Bai MD 03/07/2023 12:24 PM Signed NAME: Alessio Burns CLINIC NO.: [id number] DATE OF SERVICE: March 03, 2023 (Zac) [...] 6-month gap between resection and presentation to tx. He remains at high risk because of [...] below PE (more content not included)... Normal [facility] 36on 01-11-2023 36 Moderately dilated 4.4-4.8cm which is stable. Aortic valve looks good as well. Normal [facility] ECHOCARDIO M/2D COMPLETEon 0 01-06-2023 ECHOCARDIO M/2D COMPLETE Patient: ALESSIO BURNS Exam Date: 01/06/2023 : 1950 Gender:M Ordering : MRS. KUN [employer]TA [employer] Admission #: [id number] Family : SHAIKH Tres ETIENNE . Order #: [id number] CLICK HERE TO VIEW EXAM ECHOCARDIOGRAM REPORT [...] Canales M.D. on 01/06/2023 at 16:36 Normal [facility] Office Visiton 01-02-2023 Follow-up visit [id number] Alessio Burns 1950 [facility] Provider Department [place] 01/02/2023 [id number] ORTA [facility] Family History Problem Relation Age of Onset Diabetes Mother Heart disease Mother Heart disease Father Coronary artery disease Sister Family Status - Relation Status Age at Mother Father Sister Level of Service:65811 [place] OFFICE/OUTPATIENT ESTABLISHED MOD MDM 30-39 MIN Reason for Visit and Comments: Follow-up [984030] - 6 mo f/u- concerns about aneurysm Normal [facility] Comprehensive metabolic 2000 panelon 10-08-2022 Albumin [Mass/Vol] 4.1 g/dL 3.9 - 4.9 g/dL [facility] ALP [Catalytic activity/Vol] 87 U/L 38 - 113 U/L [facility] ALT [Catalytic activity/Vol] 11 U/L 10 - 54 U/L [facility] Anion gap [Moles/Vol] 12 mmol/L 9 - 18 mmol/L [facility] AST [Catalytic activity/Vol] 18 U/L 14 - 40 U/L [facility] Bilirubin [Mass/Vol] 0.3 mg/dL 0.2 - 1 .3 mg/dL [facility] Calcium [Mass/Vol] 9.6 mg/dL 8.5 - 10. 2 mg/dL [facility] Chloride [Moles/Vol] 102 mmol/L 97 - 10 5 mmol/L [facility] CO2 [Moles/Vol] 24 mmol/L 22 - 30 mmol/L [facility] Creatinine [Mass/Vol] 1.12 mg/dL 0.73 - 1.22 mg/dL [facility] Estimated Glomerular Filtration Rate 70 mL/min/1.73m >=60 mL/min/1.73m [facility] Glucose [Mass/Vol] 85 mg/dL 74 - 99 mg/dL [facility] Potassium [Moles/Vol] 4.4 mmol/L 3.7 - 5.1 mmol/L [facility] Protein [Mass/Vol] 7.5 g/dL 6.3 - 8.0 g/dL [facility] Sodium [Moles/Vol] 138 mmol/L 136 - 144 mmol/L [facility] Urea nitrogen [Mass/Vol] 16 mg/dL 9 - 24 mg/dL [facility] CBC W Auto Differential pane l (Bld)on 10-07-2022 Basophils (Bld) [#/Vol] 0.06 10*3/uL <0.11 k/uL [facility] Basophils/100 WBC (Bld) 0.6 % [facility] Differential cell count method Nom (Bld) Auto [facility] Eosinophils (Bld) [#/Vol] 0.48 10*3/uL High <0.46 k/uL [facility] Eosinophils/100 WBC (Bld) 4.8 % [facility] Erythrocyte distribution width (RBC) [Ratio] 13.0 % 11.5 - 15.0 % [facility] Hematocrit (Bld) [Volume fraction] 37.6 % Low 39.0 - 51.0 % [facility] Hemoglobin (Bld) [Mass/Vol] 12.4 g/dL Low 13.0 - 17.0 g/dL [facility] Immature granulocytes (Bld) [#/Vol] 0.05 10*3/uL <0.10 k/uL [facility] Immature granulocytes/100 WBC (Bld) 0.5 % [facility] Lymphocytes (Bld) [#/Vol] 1.94 10*3/uL 1.00 - 4.00 k/uL [facility] Lymphocytes/100 WBC (Bld) 19.4 % [facility] MCH (RBC) [Entitic mass] 30.3 pg 26.0 - 34.0 pg [facility] MCHC (RBC) [Mass/Vol] 33.0 g/dL 30.5 - 36.0 g/dL [facility] MCV (RBC) [Entitic vol] 91.9 fL 80.0 - 100.0 fL [facility] Monocytes (Bld) [#/Vol] 1.24 10*3/uL High <0.87 k/uL [facility] Monocytes/100 WBC (Bld) 12.4 % [facility] Neutrophils (Bld) [#/Vol] 6.22 10*3/uL 1.45 - 7.50 k/uL [facility] Neutrophils/100 WBC (Bld) 62.3 % [facility] Nucleated RBC (Bld) [#/Vol] <0.01 k/uL [facility] Nucleated RBC/100 WBC (Bld) [Ratio] 0.0 /100 WBC [facility] Platelet mean volume (Bld) [Entitic vol] 8.9 fL Low 9.0 - 12.7 fL [facility] Platelets (Bld) [#/Vol] 230 10*3/uL 150 - 400 k/uL [facility] RBC (Bld) [#/Vol] 4.09 10*6/uL Low 4.20 - 6.0 0 m/uL [facility] WBC (Bld) [#/Vol] 9.99 10*3/uL 3.70 - 11. 00 k/uL [facility] COVID-19 SOFIAOrdered By: Crescenico Queen on 04-14-2022 SARS-CoV+SARS-CoV-2 (COVID-19) Ag IA.rapid Ql (Resp) Negative Negative [facility] Comment on above: This is a duplicate Rehana SARS Antigen (ELVIS) result to be used for statistical tracking purpose only. No Panel InformationOrdered By: Krzysztof Queen on 04-14-2022 SARS Antigen (LFIA) [facility] ECHOCARDIO M/2D COMPLETEon 0 03-15-2022 ECHOCARDIO M/2D COMPLETE Patient: ALESSIO BURNS Exam Date: 03/15/2022 : 1950 Gender:M Ordering : DR SYDNIE AMBROSIO M.D. Admission #: [id number] Family : SHAIKH Tres ETIENNE . Order #: [id number] CLICK HERE TO VIEW EXAM ECHOCARDIOGRAM REPORT [...] Area(A4C): 19.90 cm2 Left Atrium Systolic Volume(A2C): 72486 mm3 Left Atrium Systolic Volume(A4C): 26487 mm3 Mitral Valve MV E to A [...] Ambrosio M.D. on 03/15/2022 at 18:52 Normal [facility] PROF CHEM 8 (BAS METB)on Anion gap [Moles/Vol] 10.9 mmol/L Normal Th e [facility] Comment on above: Performed By: #### B MP #### [facility] [address] [address] [address] Denae Davis Calcium [Mass/Vol] 9.0 mg/dL Normal 8.5-10.1 [facility] Comment on above: Performed By: #### B MP #### [facility] [address] [place] [address] Dr. Denae Davis Chloride [Moles/Vol] 104 mmol/L Normal 98-107 [facility] Comment on above: Performed By: #### B MP #### [facility] [address] [place] [address] Dr. Denae Davis CO2 [Moles/Vol] 28.3 mmol/L Normal 21.0-32.0 [facility] Comment on above: Performed By: #### B MP #### [facility] [address] [place] [address] Dr. Denae Davis Creatinine [Mass/Vol] 1.15 mg/dL Normal 0.70-1.30 [facility] Comment on above: Performed By: #### B MP #### [facility] [address] [place] [address] Dr. Denae Davis EGFR-AF KYRGYZ >60 Normal >=60 [facility] Comment on above: Performed By: #### B MP #### [facility] [address] [place] [address] Dr. Denae Davis EGFR-NON AF KYRGYZ >60 Normal >=60 [facility] Comment on above: Performed By: #### B MP #### [facility] [address] [place] [address] Dr. Denae Davis Glucose [Mass/Vol] 103 mg/dL Normal 74-106 [facility] Comment on above: Performed By: #### B MP #### [facility] [address] [place] [address] Dr. Denae Davis Potassium [Moles/Vol] 4.2 mmol/L Normal 3.5-5.1 [facility] Comment on above: Performed By: #### B MP #### [facility] [address] [place] [address] Dr. Denae Davis Sodium [Moles/Vol] 139 mmol/L Normal 136-145 [facility] Comment on above: Performed By: #### B MP #### [facility] [address] [address] [address] eDnae Davis Urea nitrogen [Mass/Vol] 17.0 mg/dL Normal 7.0-18.0 [facility] Comment on above: Performed By: #### B MP #### [facility] [address] [address] [address] Denae Davis Urea nitrogen/Creatinine [Mass ratio] 14.8 mg/mg Normal [facility] Comment on above: Performed By: #### B MP #### [facility] [address] [address] [address] Denae Davis ANES POSTPROC EVALon 022 ANES POSTPROC EVAL HNO ID: [id number] Author: Alena Mortensen MD Service: Anesthesiology Author [...] January 10, 2022 TIME: 1:22 PM CSN: [id number] [facility] ANES PRE-OPon 01-10-2022 ANES PRE-OP HNO ID: [id number] Author: Alena Mortensen MD Service: Anesthesiology Author Type: Anesthesiologist Type: Anesthesia Preprocedure Evaluation Filed: 01/10/2022 10:12 AM Note Text: ANESTHESIOLOGY DAY OF SURGERY NOTE : 1950 Procedure Information Date/Time: 01/10/22 1030 Procedures: LAPAROSCOPY DIAGNOSTIC ABDOMEN, PERITONEUM AND OMENTUM (N/A Abdomen) - keep 2nd case transportation issues LAPAROSCOPIC BIOPSY LIVER (N/A Abdomen) Location: OR / OR Surgeons: Bj Mota MD Estimated [...] January 10, 2022 TIME: 10:11 AM CSN: [id number] [facility] BRIEF OP NOTon 01-10-2022 BRIEF OP NOT HNO ID: [id number] Author: Natacha Melo MD Service: General Surgery Author Type: Resident Type: Brief Op Note Filed: 01/10/2022 12:20 PM Note Text: BRIEF OPERATIVE / PROCEDURE NOTE LOG ID: [id number] SURGERY/PROCEDURE DATE: 01/10/2022 INCISION/PROCEDURE START TIME: 11:28 AM INCISION CLOSE/PROCEDURE END TIME: 12:16 PM SURGEON(S)/PROCEDURA LIST(S) AND HIDE SPREADER(S): Surgeon(s) and Role: * Bj Mota MD [...] DATE: January 10, 2022 TIME: 12:19 PM [facility] NURSING PROGon 01-10-2022 NURSING PROG HNO ID: [id number] Author: Carmen Huizar RN Service: ? Author Type: Registered Nurse Type: Nursing Progress Note Filed: 01/10/2022 8:54 AM Note Text: PATIENT EDUCATION TOPIC: PROCEDURE / SURGERY: Pre-op Teaching: Logistics Protocols PATIENT NAME: Alessio Burns PATIENT LOCATION: OR POOL/FV OR POOL READINESS TO LEARN [...] (RECOMMENDATION): None Electronically Signed By: Carmen Huizar [facility] OPERATIVE NOon 01-10-2022 OPERATIVE NO HNO ID: [id number] Author: Bj Mota MD Service: General Surgery Author Type: Physician Type: Operative Report Filed: 01/12/2022 2:26 PM Note Text: [facility] - Operative Report ALESSIO BURNS : 1950 AGE: 71. SEX: M PATIENT TYPE: A HOSP SVC: [facility] LOCATION: [facility] ATTENDING PHYSICIAN: Bj Mota MD CSN NUMBER: [id number] DATE OF SURGERY/PROCEDURE: 01/10/2022 INCISION/PROCEDURE START TIME: 11:28 AM INCISION CLOSE/PROCEDURE END TIME: 12:16 PM PREOPERATIVE DIAGNOSIS: Liver mass. POSTOPERATIVE DIAGNOSIS: Liver mass. SURGEON: Bj Mota MD HIDE SPREADER: Radha Melo MD. SURGERY/PROCEDURE: 1. Diagnostic laparoscopy. [...] of the liver. Patient was referred to me for an operative biopsy. OPERATIVE FINDINGS: Cystic [...] in throughout the operation. Bj Mota MD TA:[id number] [facility] PT EDon 01-10-2022 PT ED HNO ID: [id number] Author: Kajal Acosta RN Service: Nursing Author [...] PROVIDED TO PATIENT: Post op discharge instructions. Normal [facility] SURGICAL PATHOLOGYon CASE REPORT Normal [facility] Comment on above: Order Comment: Derek krishnamurthy Type: TISSUE SPECIMEN Ordering Facility: [facility] Address: [address] [place] [address] Result Comment: Surg ical Pathology Report Case: [id number] Authorizing Provider: Bj Mota MD Collected: 01/10/2022 11:56 AM Ordering [facility] Received: 01/10/2022 01:36 PM Operating Room Pathologist: Crystal Darden MD Specimen: LIVER PARTIAL RESECTION, liver mass Performed By: #### S #### [facility] CLIA [id number] [address] [place] [address] DIAGNOSIS COMMENT Normal [facility] Comment on above: Order Comment: Derek krishnamurthy Type: TISSUE SPECIMEN Ordering Facility: [facility] Address: [address] [place] [address] Result Comment: We n ote the clinical [...] of fibrosis. Performed By: #### S #### [facility] CLIA [id number] [address] [place] [address] FINAL DIAGNOSIS Normal [facility] Comment on above: Order Comment: Derek krishnamurthy Type: TISSUE SPECIMEN Ordering Facility: [facility] Address: [address] [place] [address] Result Comment: Viktoriya deras, partial resection: - Ciliated foregut cyst. - Parenchymal margin is not involved. - Hepatic parenchyma with mild portal inflammation. AEB/tg 01/13/2022 Performed By: #### S #### [facility] CLIA [id number] [address] [place] [address] FINAL PERFORMING LAB Normal [facility] Comment on above: Order Comment: Speci men Type: TISSUE SPECIMEN Ordering Facility: [facility] Address: [address] [place] [address] Result Comment: Diag nostic interpretation performed at [facility], [address] [place] [address] CLIA# [id number] Reimbursement Coordinator: Denzel Vela M.D. Performed By: #### S #### [facility] CLIA [id number] [address] [place] [address] GROSS DESCRIPTION Normal [facility] Comment on above: Order Comment: Speci men Type: TISSUE SPECIMEN Ordering Facility: [facility] Address: [address] [place] [address] Result Comment: Viktoriya DERAS PARTIAL RESECTION. Received in formalin labeled as [...] remainder of specimen. Gross examination performed at [facility], [address] [place] [address] CLIA# [id number] [facility] January 12, 2022 9:23 AM Performed By: #### S #### [facility] CLIA [id number] [address] [place] [address] [place] Basic metabolic 2000 panelon 01-05-2022 Anion gap [Moles/Vol] 13 mmol/L 9 - 18 mmol/L [facility] Calcium [Mass/Vol] 9.8 mg/dL 8.5 - 10. 2 mg/dL [facility] Chloride [Moles/Vol] 101 mmol/L 97 - 10 5 mmol/L [facility] CO2 [Moles/Vol] 24 mmol/L 22 - 30 mmol/L [facility] Creatinine [Mass/Vol] 0.90 mg/dL 0.73 - 1.22 mg/dL [facility] Estimated Glomerular Filtration Rate 92 mL/min/1.73m >=60 mL/min/1.73m [facility] Glucose [Mass/Vol] 101 mg/dL High 74 - 99 mg/dL [facility] Potassium [Moles/Vol] 4.5 mmol/L 3.7 - 5.1 mmol/L [facility] Sodium [Moles/Vol] 138 mmol/L 136 - 144 mmol/L [facility] Urea nitrogen [Mass/Vol] 12 mg/dL 9 - 24 mg/dL [facility] CBC W Auto Differential pane l (Bld)on 01-05-2022 Abs Immature Gran 0.06 k/uL <0.10 k/uL [facility] Basophils (Bld) [#/Vol] 0.05 10*3/uL <0.11 k/uL [facility] Basophils/100 WBC (Bld) 0.5 % [facility] Differential cell count method Nom (Bld) Auto [facility] Eosinophils (Bld) [#/Vol] 0.28 10*3/uL <0.46 k/uL [facility] Eosinophils/100 WBC (Bld) 2.6 % [facility] Erythrocyte distribution width (RBC) [Ratio] 17.2 % High 11.5 - 15.0 % [facility] Hematocrit (Bld) [Volume fraction] 39.3 % 39.0 - 51.0 % [facility] Hemoglobin (Bld) [Mass/Vol] 12.8 g/dL Low 13.0 - 17.0 g/dL [facility] Immature Gran % 0.6 % [facility] Lymphocytes (Bld) [#/Vol] 1.60 10*3/uL 1.00 - 4.00 k/uL [facility] Lymphocytes/100 WBC (Bld) 15.1 % [facility] MCH (RBC) [Entitic mass] 28.8 pg 26.0 - 34.0 pg [facility] MCHC (RBC) [Mass/Vol] 32.6 g/dL 30.5 - 36.0 g/dL [facility] MCV (RBC) [Entitic vol] 88.5 fL 80.0 - 100.0 fL [facility] Monocytes (Bld) [#/Vol] 1.02 10*3/uL High <0.87 k/uL [facility] Monocytes/100 WBC (Bld) 9.6 % [facility] Neutrophils (Bld) [#/Vol] 7.59 10*3/uL High 1.45 - 7.50 k/uL [facility] Neutrophils/100 WBC (Bld) 71.6 % [facility] Nucleated RBC (Bld) [#/Vol] 10*3/uL <0.01 k/uL [facility] Nucleated RBC/100 WBC (Bld) [Ratio] 0.0 /100 WBC [facility] Platelet mean volume (Bld) [Entitic vol] 9.4 fL 9.0 - 12.7 fL [facility] Platelets (Bld) [#/Vol] 251 10*3/uL 150 - 400 k/uL [facility] RBC (Bld) [#/Vol] 4.44 10*6/uL 4.20 - 6.0 0 m/uL [facility] WBC (Bld) [#/Vol] 10.60 10*3/uL 3.70 - 11 .00 k/uL [facility] CHEST AND LATERALon 10-12-19 CHEST AND LATERAL [facility] Department of Radiology [address] [place] [id number] Patient Name: ALESSIO BURNS : 1950 Sex: M Age: Race: White Pt. Location: 78 Patient Status: O Ordered Date: 10/12/2020 11:20:00 AM Completed Date: 10/12/2020 11:24 AM Requesting Provider: RUSS LISA Attending Provider: RUSS LISA Report Copy To: Signs & Symptoms: R91.8 Other nonspecific abnormal finding of lung field I10 History: [place] Comments: Exam: CHEST AND LATERAL CHEST AND [...] hemidiaphragm. Electronically signed: Car Werner. Transcribed by: [email or web address], User Resident: Electronically Signed by: CAR WERNER @ 10/12/2020 11:33 AM Normal [facility] Social History Date Type Detail Facility Start: 06-07-2021 End: 01-04-2023 Tobacco use panel [facility] Start: 04-18-2022 End: 05-30-2023 Tobacco smoking status NHIS Smoker (finding) [facility] Start: 11-30-2021 End: 07-21-2022 Exposure to SARS-CoV-2 (event) Not sure [facility] Start: 10-29-2021 End: 01-04-2023 Alcohol intake Ex-drinker (finding) [facility] Start: 01-12-2021 End: 10-07-2022 Tobacco smoking status NHIS Smokes tobacco daily [facility] Start: 01-12-2021 End: 06-07-2021 Cigarettes smoked current (pack per day) - Reported 1 [facility] Start: 01-12-2021 End: 10-07-2022 Tobacco use and exposure Smokeless tobacco non-user [facility] Start: 1950 Sex Assigned At Not on file [facility] Start: 1950 Sex Assigned At Male F [facility] History of tobacco use Cigarette Smoker [facility] History of tobacco use Passive smoker [facility] Adult Depression Screening Assessment 0 [facility] Within the last year , have you been afraid of your partner or ex-partner? No [facility] Are you now , , , , never or living with a partner? [facility] How often to you hav e a drink containing alcohol? Never [facility] How hard is it for y ou to pay for the very basics like food, housing, medical care, and heating Somewhat hard [facility] Do you feel stress - tense, restless, nervous, or anxious, or unable to sleep at night because your mind is troubled all the time - these days [OSQ] Rather much [facility] (I/We) worried wheth er (my/our) food would run out before (I/we) got money to buy more. Never true [facility] Vital Signs Date Time Vital Sign Value Performing Clinician Facility 11-17-2023 14:35-0400 Body temperature 97 [degF] Jaya Bai MD Work Phone: [facility] 11-17-2023 14:35-0400 Body weight 88.3 kg Jaya Bai MD Work Phone: [facility] 11-17-2023 14:35-0400 Diastolic blood pressure 60 mm[Hg] Jaya Bai MD Work Phone: [facility] 11-17-2023 14:35-0400 Heart rate 55 /min Jaya Bai MD Work Phone: [facility] 11-17-2023 14:35-0400 Respiratory rate 18 /min Jaya Bai MD Work Phone: [facility] 11-17-2023 14:35-0400 SaO2% (BldA) [Mass fraction] 97 % Jaya Bai MD Work Phone: [facility] 11-17-2023 14:35-0400 Systolic blood pressure 135 mm[Hg] Jaya Bai MD Work Phone: [facility] 08-14-2023 09:00-0500 Body height 167.64 cm Tavo Hull Other [employer] Other 08-14-2023 09:00-0500 Body mass index (BMI) [Ratio] 31.1 kg/m2 Tavo Hull Other [employer] Other 08-14-2023 09:00-0500 Body weight 87.41 kg Tavo Hull Other [employer] Other 08-14-2023 09:00-0500 Diastolic blood pressure 57 mm[Hg] Tavo Hull Other [employer] Other 08-14-2023 09:00-0500 Systolic blood pressure 126 mm[Hg] Tavo Hull Other [employer] Other 08-11-2023 14:23-0500 Body temperature 97.39 [degF] Jaya Bai MD Work Phone: [facility] 08-11-2023 14:23-0500 Body weight 87.91 kg Jaya Bai MD Work Phone: [facility] 08-11-2023 14:23-0500 Diastolic blood pressure 60 mm[Hg] Jaya Bai MD Work Phone: [facility] 08-11-2023 14:23-0500 Heart rate 59 /min Jaya Bai MD Work Phone: [facility] 08-11-2023 14:23-0500 Respiratory rate 16 /min Jaya Bai MD Work Phone: [facility] 08-11-2023 14:23-0500 SaO2% (BldA) [Mass fraction] 94 % Jaya Bai MD Work Phone: [facility] 08-11-2023 14:23-0500 Systolic blood pressure 148 mm[Hg] Jaya Bai MD Work Phone: [facility] 05-30-2023 14:05-0400 Diastolic blood pressure 45 mm[Hg] MD Shaikh Etienne Work Phone: [facility] 05-30-2023 14:05-0400 Heart rate 56 /min MD Shaikh Etienne Work Phone: [facility] 05-30-2023 14:05-0400 Respiratory rate 18 /min MD Shaikh Etienne Work Phone: [facility] 05-30-2023 14:05-0400 SaO2% (BldA) [Mass fraction] 96 % MD Shaikh Etienne Work Phone: [facility] 05-30-2023 14:05-0400 Systolic blood pressure 127 mm[Hg] MD Shaikh Etienne Work Phone: [facility] 05-30-2023 12:53-0400 Body height 167.64 cm MD Shaikh Etienne Work Phone: [facility] 05-30-2023 12:53-0400 Body weight 82.55 kg MD Shaikh Etienne Work Phone: [facility] 05-05-2023 14:04-0400 Body height 167.6 cm Jaya Bai MD Work Phone: [facility] 05-05-2023 14:04-0400 Body temperature 97.59 [degF] Jaya Bai MD Work Phone: [facility] 05-05-2023 14:04-0400 Body weight 82.56 kg Jaya Bai MD Work Phone: [facility] 05-05-2023 14:04-0400 Diastolic blood pressure 54 mm[Hg] Jaya Bai MD Work Phone: [facility] 05-05-2023 14:04-0400 Heart rate 57 /min Jaya Bai MD Work Phone: [facility] 05-05-2023 14:04-0400 Respiratory rate 16 /min Jaya Bai MD Work Phone: [facility] 05-05-2023 14:04-0400 SaO2% (BldA) [Mass fraction] 98 % Jaya Bai MD Work Phone: [facility] 05-05-2023 14:04-0400 Systolic blood pressure 119 mm[Hg] Jaya Bai MD Work Phone: [facility] 03-03-2023 13:40-0400 Body height 167.6 cm Jaya Bai MD Work Phone: [facility] 03-03-2023 13:40-0400 Body temperature 97.59 [degF] Jaya Bai MD Work Phone: [facility] 03-03-2023 13:40-0400 Body weight 83.64 kg Jaya Bai MD Work Phone: [facility] 03-03-2023 13:40-0400 Diastolic blood pressure 59 mm[Hg] Jaya Bai MD Work Phone: [facility] 03-03-2023 13:40-0400 Heart rate 61 /min Jaya Bai MD Work Phone: [facility] 03-03-2023 13:40-0400 Respiratory rate 16 /min Jaya Bai MD Work Phone: [facility] 03-03-2023 13:40-0400 SaO2% (BldA) [Mass fraction] 96 % Jaya Bai MD Work Phone: [facility] 03-03-2023 13:40-0400 Systolic blood pressure 110 mm[Hg] Jaya Bai MD Work Phone: [facility] 01-04-2023 13:43-0400 Body height 167.6 cm Jaya Bai MD Work Phone: [facility] 01-04-2023 13:43-0400 Body temperature 97.5 [degF] Jaya Bai MD Work Phone: [facility] 01-04-2023 13:43-0400 Body weight 85.46 kg Jaya Bai MD Work Phone: [facility] 01-04-2023 13:43-0400 Diastolic blood pressure 62 mm[Hg] Jaya Bai MD Work Phone: [facility] 01-04-2023 13:43-0400 Heart rate 59 /min Jaya Bai MD Work Phone: [facility] 01-04-2023 13:43-0400 Respiratory rate 16 /min Jaya Bai MD Work Phone: [facility] 01-04-2023 13:43-0400 SaO2% (BldA) [Mass fraction] 98 % Jaya Bai MD Work Phone: [facility] 01-04-2023 13:43-0400 Systolic blood pressure 139 mm[Hg] Jaya Bai MD Work Phone: [facility] 10-07-2022 15:18-0500 Body height 167.6 cm Jaya Bai MD Work Phone: [facility] 10-07-2022 15:18-0500 Body temperature 97.81 [degF] Jaya Bai MD Work Phone: [facility] 10-07-2022 15:18-0500 Body weight 86.46 kg Jaya Bai MD Work Phone: [facility] 10-07-2022 15:18-0500 Diastolic blood pressure 52 mm[Hg] Jaya Bai MD Work Phone: [facility] 10-07-2022 15:18-0500 Heart rate 52 /min Jaya Bai MD Work Phone: [facility] 10-07-2022 15:18-0500 Respiratory rate 16 /min Jaya Bai MD Work Phone: [facility] 10-07-2022 15:18-0500 SaO2% (BldA) [Mass fraction] 100 % Jaya Bai MD Work Phone: [facility] 10-07-2022 15:18-0500 Systolic blood pressure 124 mm[Hg] Jaya Bai MD Work Phone: [facility] 07-21-2022 13:46-0500 Body height 167.6 cm Jaya Bai MD Work Phone: [facility] 07-21-2022 13:46-0500 Body temperature 97.11 [degF] Jaya Bai MD Work Phone: [facility] 07-21-2022 13:46-0500 Body weight 86.91 kg Jaya Bai MD Work Phone: [facility] 07-21-2022 13:46-0500 Diastolic blood pressure 66 mm[Hg] Jaya Bai MD Work Phone: [facility] 07-21-2022 13:46-0500 Heart rate 57 /min Jaya Bai MD Work Phone: [facility] 07-21-2022 13:46-0500 Respiratory rate 16 /min Jaya Bai MD Work Phone: [facility] 07-21-2022 13:46-0500 SaO2% (BldA) [Mass fraction] 96 % Jaya Bai MD Work Phone: [facility] 07-21-2022 13:46-0500 Systolic blood pressure 143 mm[Hg] Jaya Bai MD Work Phone: [facility] 04-18-2022 11:11-0400 Diastolic blood pressure 57 mm[Hg] MD Shaikh Etienne Work Phone: [facility] 04-18-2022 11:11-0400 Heart rate 51 /min MD Shaikh Etienne Work Phone: [facility] 04-18-2022 11:11-0400 Respiratory rate 18 /min MD Shaikh Etienne Work Phone: [facility] 04-18-2022 11:11-0400 SaO2% (BldA) [Mass fraction] 98 % MD Shaikh Etienne Work Phone: [facility] 04-18-2022 11:11-0400 Systolic blood pressure 129 mm[Hg] MD Shaikh Etienne Work Phone: [facility] 04-18-2022 09:13-0400 Body height 170.18 cm MD Shaikh Etienne Work Phone: [facility] 04-18-2022 09:13-0400 Body temperature 98.5 [degF] MD Shaikh Etienne Work Phone: [facility] 04-18-2022 09:13-0400 Body weight 77.11 kg MD Shaikh Etienne Work Phone: [facility] 03-31-2022 13:44-0400 Body height 172.7 cm Jaya Bai MD Work Phone: [facility] 03-31-2022 13:44-0400 Body temperature 97.81 [degF] Jaya Bai MD Work Phone: [facility] 03-31-2022 13:44-0400 Body weight 82.19 kg Jaya Bai MD Work Phone: [facility] 03-31-2022 13:44-0400 Diastolic blood pressure 58 mm[Hg] Jaya Bai MD Work Phone: [facility] 03-31-2022 13:44-0400 Heart rate 52 /min Jaya Bai MD Work Phone: [facility] 03-31-2022 13:44-0400 Respiratory rate 16 /min Jaya Bai MD Work Phone: [facility] 03-31-2022 13:44-0400 SaO2% (BldA) [Mass fraction] 98 % Jaya Bai MD Work Phone: [facility] 03-31-2022 13:44-0400 Systolic blood pressure 117 mm[Hg] Jaya Bai MD Work Phone: [facility] 01-05-2022 11:00-0400 Body height 172.7 cm Pacc 3 Work Phone: [facility] 01-05-2022 11:00-0400 Body temperature 97.7 [degF] Pacc 3 Work Phone: [facility] 01-05-2022 11:00-0400 Body weight 78.47 kg Pacc 3 Work Phone: [facility] 01-05-2022 11:00-0400 Diastolic blood pressure 59 mm[Hg] Pacc 3 Work Phone: [facility] 01-05-2022 11:00-0400 Heart rate 57 /min Pacc 3 Work Phone: [facility] 01-05-2022 11:00-0400 Respiratory rate 20 /min Pacc 3 Work Phone: [facility] 01-05-2022 11:00-0400 SaO2% (BldA) [Mass fraction] 97 % Pacc 3 Work Phone: [facility] 01-05-2022 11:00-0400 Systolic blood pressure 127 mm[Hg] Pacc 3 Work Phone: [facility] Clinical Notes 12-17-2021 to 02-23-2024 Patient InstructionsAbJaya cueto MD - 11/17/2023 2:30 PM EDTTelephone Encounter - Wilmer Rosas RN - 11/13/2023 8:51 AM EDTTelephone Encounter - Wilmer Rosas RN - 11/13/2023 8:51 AM EDT Note Date & Type Note Facility 02-23-2024 Note HNO ID: [id number] Author: CHLOE IVEY RN Service: ? Author Type: Registered Nurse Type: Progress Notes Filed: 02/23/2024 12:18 Note Text: Radiology Service Progress Note DATE OF SERVICE: February 23, 2024 TIME: 12:17 PM PATIENT WEIGHT: 185LBS PATIENT IDENTITY VERIFICATION COMPLETED USING TWO (2) [...] RISK FACTORS: Patient age > 60 years CREATININE: Creatinine Date Value Ref Range Status 02/23/2024 1.22 0.73 - 1.22 mg/dL Final 11/10/2023 0.99 0.73 - 1.22 mg/dL Final 08/04/2023 1.06 0.73 - 1.22 mg/dL Final Estimated Glomerular Filtration Rate Date Value Ref Range Status 02/23/2024 63 >=60 mL/min/1.73m? Final Comment: Estimated Glomerular Filtration [...] POC done: Yes, See Lab Tab February 23, 2024 TREATMENT: N/A IV SITE: Ambulatory: A peripheral IV was started in the Right antecubital site with a Angio cath: 20 gauge. IV SITE APPEARANCE: Clean,Dry and Intact SIGNATURE: Chloe Ivey RN PATIENT NAME: Alessio Burns DATE: February 23, 2024 TIME: 12:[address] [facility] 02-23-2024 Note HNO ID: [id number] Author: MALINDA GODFREY RT(R) Service: ? Author Type: Technologist Type: Progress Notes Filed: 02/23/2024 13:42 Note Text: Radiology Service Progress Note PATIENT NAME: Alessio Burns DATE OF SERVICE: February 23, 2024 TIME: 1:41 PM PATIENT IDENTITY VERIFICATION COMPLETED USING TWO (2) IDENTIFIERS: Name and Date of confirmed by patient verbally. FALL SCREENING: Has the patient had 2 falls in the last year or 1 fall with injury or currently using an Ambulatory Assistive Device (Walker, Cane, Wheelchair, Crutches, etc.)? No PATIENT GENDER DATA: Male PATIENT RELEVANT IMPLANT DATA REVIEWED: Not Applicable PATIENT PRESENTS WITH AN IMPLANTABLE OR ATTACHED WASHTUB WORKER HELPER: No RADIOLOGY DEPARTMENT: CT; Exam(s) Completed: Chest Abdomen Pelvis PERIPHERAL IV DATA: Site assessment: Clean,Dry and Intact, Site disposition Discontinued SIGNED BY: RT Darius(R) February 23, 2024 1:[address] [facility] 11-17-2023 Instructions Rima Kapoor - 11/17/2023 3:12 PM EDT RTC in [address] CAP with labs 1 week prior Continue follow up with GI Need most recent record from [facility] documented in this encounter [facility] 11-17-2023 History of Presen t illness Narrative Images from the original note were not included. NAME: Alessio Burns [facility] NO.: [id number] DATE OF SERVICE: November 17, 2023 (Zac) Some elements in this clinic note that are critical to medical decision making have been carefully reviewed and included from a prior clinic note dated: August 11, 2023 (Zac) Referring Provider: Dr. Shaikh Etienne [...] 6-month gap between resection and presentation to tx. He remains at high risk because of [...] duodenum which will need further evaluation. PLAN: RTC in [address] CAP with labs 1 week prior Continue follow up with GI Need most recent record from [facility] HPI: Case History: 11/10/2023 - CT Chest: There has been significant improvement in size and number of the previously identified multiple bilateral pulmonary nodules, as detailed above. Several subcentimeter mediastinal lymph nodes are again identified, unchanged. No substantial intrathoracic adenopathy is identified. Aneurysmal dilation of the ascending thoracic aorta measuring approximately 4.7-4.8 cm, stable. 08/04/2023 - PET CT: No evidence of focal uptake to suggest FDG avid neoplastic process in the head/neck, abdomen/pelvis, or extremities/skeleton. Chest: Slight improvement in left upper lobe lung nodule. Other nodules below PET resolution stable. 05/30/2023 - EGD ([facility]): Duodenum: Mild bulbar duodenitis, otherwise normal. Stomach: [...] lymphadenopathy. Circumferential urinary bladder wall thickening, likely secondary to chronic outlet obstruction. 10/22/2021 - CT [...] less than 5 mm, stable since 01/27/2021. Subtle reticulonodular opacities in the left upper lung field most likely related to respiratory bronchiolitis or other infectious/inflammatory etiologies, stable. Increased mild mucous plugging. A/P: No evidence of intra-abdominal/intrapelvic metastases. No interval change since 01/27/2021. Fat-containing right inguinal hernia. 04/22/2021 - Colonoscopy ([facility]): Large blanketing polyp ascending, removed with a [...] mass and no other disease. Updated Visit, November 17, 2023: Alessio returns today with Bari. CT shows significant improvement. Not anemic, counts are normal. He has been smoking more now, about 2 packs/day now. He continues dealing with constipation - met with GI and will continue following. He does not have pain but abdomen is swollen. He says he is fatigued all the time - seeing PCP for this, possibly related to weight gain. Updated Visit, August 11, 2023: Alessio returns today for follow up, says he is hanging in there. He has gained weight, but reports that he has not been eating nearly as much. Had his EGD done on 05/30/2023. Results: gastritis. Positive stool test showing H. Pylori. PET last week looks good. It was recommended he follow up with CT instead for next imaging due to the small [...] well - last time he went was 3-4 days ago and it did not feel [...] of himself that he can. 04/22/2021 Colonoscopy ([facility]) Results scanned to [facility] 06/04/2021 Updated Visit, February 05, 2021: Doing [...] colonoscopy. PATHOLOGY/MOLECULAR DATA 01/10/2022 Partial liver resection: [id number] Order: [id number] Collected 01/10/2022 11:56 AM Status: Final result [...] remainder of specimen. Gross examination performed at [facility], [address] [place] [id number] CLIA# [id number] [facility] January 12, 2022 9:23 AM REVIEW OF SYSTEMS Per HPI and otherwise negative by full review of organ systems. ECOG PERFORMANCE STATUS: 1 PHYSICAL EXAMINATION: Vitals: BP 135/60 Pulse 55 Temp (Src) 97 (Temporal) Resp 18 Wt 194 lb 10.7 oz (88.3kg) SpO2 97% Body surface area is 2.03 meters squared. Exam limited to gross visualization [...] BEFORE morning meal & IN THE EVENING) amitriptyline (ELAVIL) 25 mg tablet Take 25 mg by mouth daily at bedtime. metroNIDAZOLE (FLAGYL) 250 mg tablet Take 250 mg by mouth four times daily. clopidogrel (PLAVIX) 75 mg tablet Take 1 tablet by mouth once daily for 15 days. spironolactone (ALDACTONE) 25 mg tablet zolpidem (AMBIEN) [...] TAKE 1 TABLET BY MOUTH TWICE DAILY LINZESS 145 mcg capsule TAKE 1 CAPSULE BY MOUTH IN THE MORNING BEFORE MEALS DO NOT CRUSH OR CHEW iv contrast (will be provided with radiology [...] in the CT contrast administration guidelines link. enteric contrast (will be provided with radiology test) For CT CHESTABD/PEL W IVCON Routine order Administer, As Directed One Time Only, via Oral, Rectal, both Oral and Rectal, Enteric Tube, Stoma or Indwelling Catheter, Enteric Contrast as designated per enteric contrast guidelines penicillin V potassium (V-CILLIN, VEETIDS) 500 mg tablet Take 500 mg by mouth four times daily. oxyCODONE-acetaminophen (PERCOCET) 5-325 mg tablet TAKE 1 TABLET BY MOUTH EVERY 12 HOURS NEEDED FOR PAIN LABORATORY VALUES: WBC (k/uL) Date Value 11/10/2023 8.93 RBC (m/uL) Date Value 11/10/2023 4.52 Hemoglobin (g/dL) Date Value 11/10/2023 13.9 Hematocrit (%) Date Value 11/10/2023 41.2 MCV (fL) Date Value 11/10/2023 91.2 MCH (pg) Date Value 11/10/2023 30.8 MCHC (g/dL) Date Value 11/10/2023 33.7 RDW-CV (%) Date Value 11/10/2023 13.2 Platelet Count (k/uL) Date Value 11/10/2023 267 MPV (fL) Date Value 11/10/2023 9.1 Glucose (mg/dL) Date Value 11/10/2023 96 BUN (mg/dL) Date Value 11/10/2023 10 Creatinine (mg/dL) Date Value 11/10/2023 0.99 Sodium (mmol/L) Date Value 11/10/2023 138 Potassium (mmol/L) Date Value 11/10/2023 3.8 Chloride (mmol/L) Date Value 11/10/2023 103 CO2 (mmol/L) Date Value 11/10/2023 24 Protein, Total (g/dL) Date Value 11/10/2023 8.2 (H) Albumin (g/dL) Date Value 11/10/2023 4.4 Calcium, Total (mg/dL) Date Value 11/10/2023 9.8 Alkaline Phosphatase (U/L) Date Value 11/10/2023 116 (H) Bilirubin, Total (mg/dL) Date Value 11/10/2023 0.4 AST (U/L) Date Value 11/10/2023 16 ALT (U/L) Date Value 11/10/2023 7 (L) DIAGNOSIS: (R10.30) Lower abdominal pain (primary encounter diagnosis) Plan: CT ABD/PEL W IVCON (C34.11) Malignant neoplasm of upper lobe of right lung (HCC) Plan: CT ABD/PEL W IVCON, CT CHEST W IVCON, iv contrast (will be provided with radiology test), enteric contrast (will be provided with radiology test), CBC + DIFF, COMP METABOLIC PANEL PAST [...] which included preparing to see the patient, [id number] patient care, completing clinical documentation, performing a medically appropriate examination, counseling and educating the patient/family/caregiver, ordering medications, tests, or procedures, communicating with other HCPs (not separately reported), independently interpreting results (not separately reported), and communicating results to the patient/family/caregiver. Jaya Bai MD, CPE Hematology and Oncology Services Provided at: [facility], [place], [place] Scribe Attestation: This note was scribed by Rima Kapoor on November 17, 2023 under the direction and supervision of Dr. Jaya Bai. I attest that all of the information documented is correct to the best of my knowledge. Provider Attestation: I, Jaya Bai MD, attest that all information documented by the above scribe is correct, and was supervised by me and under my direction. CC: Shaikh Lowell [address] [facility] [address] Maliha Lentz DO David Hykes documented in this encounter [facility] 11-17-2023 Note HNO ID: [id number] Author: JAYA BAI MD Service: ? Author Type: Physician Type: Progress Notes Filed: 11/18/2023 11:26 Note Text: NAME: Alessio Burns [facility] NO.: [id number] DATE OF SERVICE: November 17, 2023 (Zac) Some elements in this clinic note that are critical to medical decision making have been carefully reviewed and included from a prior clinic note dated: August 11, 2023 (Zac) Referring Provider: Dr. Shaikh Etienne [...] duodenum which will need further evaluation. PLAN: RTC in [address] CAP with labs 1 week prior Continue follow up with GI Need most recent record from [facility] HPI: Case History: 11/10/2023 - CT Chest: There has been significant improvement in size and number of the previously identified multiple bilateral pulmonary nodules, as detailed above. Several subcentimeter mediastinal lymph nodes are again identified, unchanged. No substantial intrathoracic adenopathy is identified. Aneurysmal dilation of the ascending thoracic aorta measuring approximately 4.7-4.8 cm, stable. 08/04/2023 - PET CT: No evidence of focal uptake to suggest FDG avid neoplastic process in the head/neck, abdomen/pelvis, or extremities/skeleton. Chest: Slight improvement in left upper lobe lung nodule. Other nodules below PET resolution stable. 05/30/2023 - EGD ([facility]): Duodenum: Mild bulbar duodenitis, otherwise normal. Stomach: [...] vs neoplastic. All below PET range (7mm an (more content not included)... [facility] 11-13-2023 Miscellaneous Notes Pt informed of [employer]'s message and denies any questions, needs or concerns at this time. Appointment verified. Wilmer Rosas RN ----- Message from Jaya Bai MD sent at 11/11/2023 9:37 AM EST ----- CT Scan looking better and better! documented in this encounter [facility] 11-10-2023 Note HNO ID: [id number] Author: CHLOE IVEY RN Service: ? Author Type: Registered Nurse Type: Progress Notes Filed: 11/10/2023 12:34 Note Text: Radiology Service Progress Note DATE OF SERVICE: November 10, 2023 TIME: 12:34 PM PATIENT WEIGHT: 192LBS PATIENT IDENTITY VERIFICATION COMPLETED USING TWO (2) [...] RISK FACTORS: Patient age > 60 years CREATININE: Creatinine Date Value Ref Range Status 08/04/2023 1.06 0.73 - 1.22 mg/dL Final 04/28/2023 1.20 0.73 - 1.22 mg/dL Final 01/04/2023 1.01 0.73 - 1.22 mg/dL Final Estimated Glomerular Filtration Rate Date Value Ref Range Status 08/04/2023 75 >=60 mL/min/1.73m? Final Comment: Estimated Glomerular Filtration [...] RESULTS: POC done: Yes, See Lab Tab November 10, 2023 TREATMENT: N/A IV SITE: Ambulatory: A peripheral IV was started in the Left antecubital site with a Angio cath: 20 gauge. IV SITE APPEARANCE: Clean,Dry and Intact SIGNATURE: Chloe Ivey RN PATIENT NAME: Alessio Burns DATE: November 10, 2023 TIME: 12:[address] [facility] 11-10-2023 Note HNO ID: [id number] Author: CAR BLOUNT RT(R) Service: ? Author Type: Technologist Type: Progress Notes Filed: 11/10/2023 12:30 Note Text: Radiology Service Progress Note PATIENT NAME: Alessio Burns DATE OF SERVICE: November 10, 2023 TIME: 12:29 PM PATIENT IDENTITY VERIFICATION COMPLETED USING TWO (2) IDENTIFIERS: Name and Date of confirmed by patient verbally. FALL SCREENING: Has the patient had 2 falls in the last year or 1 fall with injury or currently using an Ambulatory Assistive Device (Walker, Cane, Wheelchair, Crutches, etc.)? No PATIENT GENDER DATA: Male PATIENT RELEVANT IMPLANT DATA REVIEWED: Not Applicable PATIENT PRESENTS WITH AN IMPLANTABLE OR ATTACHED WASHTUB WORKER HELPER: No RADIOLOGY DEPARTMENT: CT; Exam(s) Completed: Chest PERIPHERAL IV DATA: Site assessment: Clean,Dry and Intact, Site disposition Discontinued SIGNED BY: Car Blount RT(R) November 10, 2023 12:[address] [facility] 10-06-2023 Note [place] [facility] Subjective Alessio Burns is a 73 y.o. year old male patient being seen for 6 mo follow up CAD, hx of aortic valve replacement, AAA, carotid artery stenosis, and chronic systolic heart failure. He presented to [facility] ED the day after last apt in Apr 2023 for SOB. Says his chest pain and SOB are the same as last visit in Apr 2023. Patient Active Problem List Diagnosis Aneurysm of [...] (hypertension) Lung nodules Panlobular emphysema (CMS/HCC) Smoker Adenocarcinoma of right lung (CMS/HCC) Chronic idiopathic constipation First degree atrioventricular block Ischemic cardiomyopathy Medicare annual wellness visit, subsequent Personal history of colonic polyps Positive colorectal cancer screening using Cologuard test Presence of prosthetic heart valve Tobacco dependence Family History Problem Relation Name Age of Onset Diabetes Mother Heart disease Mother Heart disease Father Coronary artery disease Sister Social History Tobacco Use Smoking status: Every Day Packs/day: 1 Types: Cigarettes Smokeless tobacco: Never Substance Use Topics Alcohol use: Yes Comment: occasional Drug use: Never SINCERE Roach is seen in follow-up. He is a [...] lobectomy for lung cancer on 09/24/2020 at [facility] with Dr. Lisa. He was admitted to the [facility] in February 2021 with atypical chest pain. He ruled out for myocardial infarction by high-sensitivity troponin. He was admitted on 10/24/2021 to the [facility] with decompensated heart failure and COPD exacerbation. His NT proBNP was elevated and his potassium was low. He underwent diuresis. He was discharged on 10/25/2021. Potassium was added. After visit of 02/28/2022 I checked an echocardiogram to follow-up on the size of his aortic aneurysm. The echocardiogram showed normal ventricular function and normal function of the aortic valve with the ascending aorta measuring 4.5 cm. In April 2023 he was evaluated in the [facility] emergency room because of worsening shortness of breath. D-dimers were elevated and a CT of the chest showed no pulmonary embolism and the ascending aortic aneurysm measured at 4.0 cm. Today he reports that he has [...] Positive for malaise/fatigue. Cardiovascular: Positive for chest pain and dyspnea on exertion. Neurological: Positive for weakness. All other systems reviewed and are negative. Objective Visit Vitals BP 135/63 (BP Location: Left arm, Patient Position: Sitting) Pulse 56 Ht 1.727 m (5' 8 ) Wt 89.4 kg (197 lb) SpO2 96% BMI 29.95 kg/m??? Smoking Status Every Day BSA 2.07 m??? Physical Exam Constitutional: Appearance: He is well-developed. He is not ill-appearing. HENT: Head: Normocephalic and atraumatic. Nose: Nose normal. Eyes: General: No scleral icterus. Pupils: Pupils are equal, round, and reactive to light. Neck: Thyroid: No thyromegaly. Vascular: No JVD. Cardiovascular: Rate and Rhythm: Normal rate and r (more content not included)... [facility] 08-18-2023 Miscellaneous Notes Oanh from [facility] called and stated referral sent is missing pages. Oanh stated they were having fax issues. Please re-fax referral to them at fax: [phone] Office note faxed to [facility] documented in this encounter [facility] 08-18-2023 Telephone encounter Note Oanh from [facility] called and stated referral sent is missing pages. Oanh stated they were having fax issues. Please re-fax referral to them at fax: [phone] [facility] 08-18-2023 Telephone encounter Note Office note faxed to [facility] 08-14-2023 Evaluation note Encounter Date Diagnosis Assessment [...] with it. Pt RTO in 3 months [employer] Other 12-08-2023 Miscellaneous Notes* Telephone Encounter - Arabella Steele RN - 08/11/2023 4:40 PM EST Please refer to following encounter for details and follow up Arabella Steele RN * Telephone Encounter - Jaya Bai MD - 08/11/2023 4:35 PM EST Plenty of other options - dulcolax, miralax combo. * Telephone Encounter - Arabella Steele RN - 08/11/2023 3:21 PM EST Call received from Chiara @[email or web address] to inform that Mag citrate has been a backordered item for a while and not available. Would you like to order something else? FYI we do have 2 bottles here but pharmacy closes at 4 and patient lives in [place] Arabella Steele RN [facility] Inst[facility]* Patient Instructions* Ling Muhammad - 08/11/2023 2:58 PM EST Trial of magnesium citrate to clear out. Triage to call Monday. If no success, will order CT A/P. Labs and CT Chest in 3 months. RTC 1 week after labs and scan. [facility] NoteHNO ID: [id number] Author: Jaya Bai MD Service: ? Author Type: Physician Type: Progress Notes Filed: 08/11/2023 10:23 PM Note Text: NAME: Alessio Burns [facility] NO.: [id number] DATE OF SERVICE: August 11, 2023 (Zac) [...] 6-month gap between resection and presentation to tx. He remains at high risk because of [...] Follow-up with CT advised. 05/30/2023 - EGD ([facility]): Duodenum: Mild bulbar duodenitis, otherwise normal. Stomach: [...] bladder wall thickening, lik (more content not included)...[facility] 08-11-2023 History of Present illness Narrative* Jaya Bai MD - 08/11/2023 2:40 PM EST Images from the original note were not included. NAME: Alessio Burns [facility] NO.: [id number] DATE OF SERVICE: August 11, 2023 (Zac) [...] 6-month gap between resection and presentation to tx. He remains at high risk because of [...] Follow-up with CT advised. 05/30/2023 - EGD ([facility]): Duodenum: Mild bulbar duodenitis, otherwise normal. Stomach: [...] Fat-containing right inguinal hernia. 04/22/2021 - Colonoscopy ([facility]): Large blanketing polyp ascending, removed with a [...] It was recommended he follow up with [facility] for next imaging due to the [...] of himself that he can. 04/22/2021 Colonoscopy ([facility]) Results scanned to [facility] 06/04/2021 Updated Visit, February 05, 2021: Doing [...] colonoscopy. PATHOLOGY/MOLECULAR DATA 01/10/2022 Partial liver resection: [id number] Order: [id number] Collected 01/10/2022 11:56 AM Status: Final result [...] A3-A4 remainderof specimen. Gross examination performed at [facility], [address] [facility] [address] CLIA# [id number] [facility] January 12, 2022 9:23 AM REVIEW [...] which included preparing to see the patient, qzjf-qn-qoqx patient care, completing clinical documentation, performing a medically appropriate examination, counseling and educating the patient/family/caregiver, ordering medications, tests, or p rocedures, communicating with other HCPs (not separately reported), independently interpreting results (not separately reported), and communicating results to the patient/family/caregiver. Jaya Bai MD, CPE Services Provided at: [place], [place] & [place], [place] Scribe Attestation: This note was scribed [...] direction. CC: Shaikh Lowell [address] [facility] [address] Maliha Lentz DO David Hykes documented in this encounterWayne Healthcare Main Campus12-01-2023 NoteHNO ID: [id number] Author: Chloe Ivey RN Service: ? Author Type: Registered Nurse [...] IV SITE APPEARANCE: Clean,Dry and Intact SIGNATURE: Chloe Ivey RN PATIENT NAME: Alessio Burns DATE: August 04, 2023 TIME: 1:49 [facility]12-01-2023 NoteHNO ID: [id number] Author: Malinda Godfrey RT(R) Service: ? Author Type: Technologist [...] 1326 PATIENT DISCHARGED TO: Ambulatory patient, left [place] department area. A Diagnostic radioactive procedure has taken place, with no further precautions necessary other than routine body substance precautions. More information regarding radiation safety can be found using this link: [email or web address] [email or web address]%20Nuclear%20Medicine%[email or web address].[email or web address] SIGNATURE: RT Darius(R) PATIENT NAME: Alessio Burns DATE: August 04, 2023 TIME: 1:43 PM PAGER/CONTACT #:[facility]09-26-2023 [facility] Miscellaneous Notes* Telephone Encounter - Karen Ugarte - 05/22/2023 1:25 PM EDT Called [facility] spoke with Gita. Patient is scheduled for EGD with Dr. Spring on 05/30. Karen Hernandez * Telephone Encounter - Karen Ugarte - 05/18/2023 10:44 AM EDT Called [facility] spoke with Jaylene. They have received this referral and their rn mds coordinator will be calling patient to get scheduled. Karen Hernandez * Telephone Encounter - Gale Mahoney - 05/16/2023 2:19 PM EDT Records faxed to [facility]. * Telephone Encounter - Karen Ugarte - 05/10/2023 8:30 AM EDT Katty: Information ready for you. Karen Hernandez * Telephone Encounter - Ania Laughlin - 05/05/2023 3:11 PM EDT Refer to GI for upper endoscopy for positive PET/CT Katty/Agustín: Can you please refer patient and follow up? He states he has seen Dr. Queen in the past but would prefer to stay locally still. Ania Laughlin documented in this encounterWayne Healthcare [facility] Campus09-01-2023 Instructions* Patient Instructions* Jaya Bai MD - 05/05/2023 2:56 PM EDT Refer to GI for upper endoscopy for positive PET/CT Repeat PET in 3 months labs same day. documented in this encounterWayne Healthcare Main Campus09-01-2023 NoteHNO ID: [id number] Author: Jaya Bai MD Service: ? Author Type: Physician Type: Progress Notes Filed: 05/16/2023 1:39 PM Note Text: NAME: Alessio Burns CLINIC NO.: [id number] DATE OF SERVICE: May 05, 2023 (Zac) [...] He is here wi (more content not included)...[facility]09-01-2023 History of Present illness Narrative* Jaya Bai MD - 05/05/2023 2:36 PM EDT Images from the original note were not included. NAME: Alessio Burns [facility] NO.: [id number] DATE OF SERVICE: May 05, 2023 (Zac) [...] of himself that he can. 04/22/2021 Colonoscopy ([facility]) Results scanned to [facility] 06/04/2021 Updated Visit, February 05, 2021: Doing [...] 02, 2022 1. 01/10/2022 Partial liver resection: [id number] Order: [id number] Collected 01/10/2022 11:56 AM Status: Final result [...] A3-A4 remainderof specimen. Gross examination performed at [facility], [address] [place] [address] CLIA# [id number] [facility] January 12, 2022 9:23 AM REVIEW [...] which included preparing to see the patient, exwd-ig-rjdn patient care, completing clinical documentation, performing a medically appropriate examination, counseling and educating the patient/family/caregiver, ordering medications, tests, or p rocedures, communicating with other HCPs (not separately reported), independently interpreting results (not separately reported), and communicating results to the patient/family/caregiver. Jaya Bai MD, CPE Services Provided at: [facility], [place], [place] & [place], [place] CC: Shaikh Lowell [address] [facility] [address] Maliha Lentz DO David Hykes documented in this encounterWayne Healthcare Main Campus08-25-2023 NoteHNO ID: [id number] Author: Chloe Ivey RN Service: ? Author Type: Registered Nurse [...] IV SITE APPEARANCE: Clean,Dry and Intact SIGNATURE: Chloe Ivey RN PATIENT NAME: Alessio Burns DATE: April 28, 2023 TIME: 1:24 [facility]08-25-2023 NoteHNO ID: [id number] Author: Malinda Godfrey RT(R) Service: ? Author Type: Technologist [...] 1317 PATIENT DISCHARGED TO: Ambulatory patient, left [place] department area. A Diagnostic radioactive procedure has taken place, with no further precautions necessary other than routine body substance precautions. More information regarding radiation safety can be found using this link: [email or web address] [email or web address]%20Medicine%[email or web address] SIGNATURE: RT Darius(R) PATIENT NAME: Alessio Burns DATE: April 28, 2023 TIME: 2:06 PM PAGER/CONTACT #:[facility]08-02-2023 NoteUT Cardiology - [facility] Subjective Alessio Burns is a 73 [...] lobectomy for lung cancer on 09/24/2020 [address] [facility] with Dr. Lisa. He was admitted to the [facility] in February 2021 with atypical chest pain. He ruled out for myocardial infarction by high-sensitivity troponin. He was admitted on 10/24/2021 to the [facility] with decompensated heart failure and COPD exacerbation. [...] Cervical back: Neck whelan (more content not included)...[facility]06-30-2023 Instructions* Patient Instructions* Jaya Bai MD - 03/03/2023 2:21 PM EDT PET/CT in 8 weeks and return after to review. documented in this encounterWayne Healthcare Main Campus06-30-2023 NoteHNO ID: [id number] Author: Jaya Bai MD Service: ? Author Type: Physician Type: Progress Notes Filed: 03/07/2023 12:24 PM Note Text: NAME: Alessio Burns [facility] NO.: [id number] DATE OF SERVICE: March 03, 2023 (tomidave) Some elements in this clinic note that [...] 6-month gap between resection and presentation to tx. He remains at high risk because of [...] Labs unremarkable. Updated Visit, March 31, 2022: Brai son is with him today. He still smokes. Reviewed images with him personally. Scan results pending but preliminarily appear without concerning lesion and with left apical emphysema Updated (more content not included)...[facility]06-30-2023 History of Present illness Narrative* Jaya Bai MD - 03/03/2023 2:09 PM EDT Images from the original note were not included. NAME: Alessio Burns [facility] NO.: [id number] DATE OF SERVICE: March 03, 2023 (Zac) [...] of himself that he can. 04/22/2021 Colonoscopy ([facility]) Results scanned to [facility] 06/04/2021 Updated Visit, February 05, 2021: Doing [...] 02, 2022 1. 01/10/2022 Partial liver resection: [id number] Order: [id number] Collected 01/10/2022 11:56 AM Status: Final result [...] A3-A4 remainderof specimen. Gross examination performed at [facility], [facility] [facility] [address] IA# [id number] [facility] January 12, 2022 9:23 AM REVIEW [...] which included preparing to see the patient, pzwz-xk-pwsy patient care, completing clinical documentation, performing a medically appropriate examination, counseling and educating the patient/family/caregiver, ordering medications, tests, or p rocedures, communicating with other HCPs (not separately reported), independently interpreting results (not separately reported), and communicating results to the patient/family/caregiver. Jaya Bai MD, CPE Services Provided at: [facility], [place], [place] & [place], [place] CC: Shaikh Lowell [address] [facility] [address] Maliha Lentz DO David Hykes documented in this encounterWayne Healthcare Main Campus05-03-2023 Instructions* Patient Instructions* Jaya Bai MD - 01/04/2023 2:40 PM EDT 1. Call with CT results documented in this encounterWayne Healthcare Main Campus05-03-2023 History of Present illness Narrative* Jaya Bai MD - 01/04/2023 1:59 PM EDT Images from the original note were not included. NAME: Alessio Burns [facility] NO.: [id number] DATE OF SERVICE: January 04, 2023 (Zac) [...] 6-month gap between resection and presentation to tx. He remains at high risk because of [...] of himself that he can. 04/22/2021 Colonoscopy ([facility]) Results scanned to [facility] 06/04/2021 Updated Visit, February 05, 2021: Doing [...] 02, 2022 1. 01/10/2022 Partial liver resection: [id number] Order: [id number] Collected 01/10/2022 11:56 AM Status: Final result [...] A3-A4 remainderof specimen. Gross examination performed at [facility], [address] [place] [address] CLIA# [id number] [facility] January 12, 2022 9:23 AM REVIEW [...] which included preparing to see the patient, vmvb-sg-kmma patient care, completing clinical documentation, performing a medically appropriate examination, counseling and educating the patient/family/caregiver, ordering medications, tests, or p rocedures, communicating with other HCPs (not separately reported), independently interpreting results (not separately reported), and communicating results to the patient/family/caregiver. Jaya Bai MD, CPE Services Provided at: [facility], [place], [place] & [place], [place] CC: Shaikh Lowell [address] [facility] [address] Maliha Lentz DO David Hykes documented in this encounterWayne Healthcare Main Campus05-01-2023 NoteCardiology Clinic Note Subjective Alessio Burns is [...] lobectomy for lung cancer on 09/24/2020 at [facility] with Dr. Lisa. He was admitted to the [facility] in February 2021 with atypical chest pain. He ruled out for myocardial infarction by high-sensitivity troponin. He was admitted on 10/24/2021 to the [facility] with decompensated heart failure and COPD exacerbation. [...] 10 mg tablet, Take (more content not included)...[facility]05-01-2023 NotePatient is here today for a 6 month follow up. With concerns about aneurysm. Review of Systems Constitutional: Positive for malaise/fatigue and weight gain. Cardiovascular: Positive for chest pain and irregular heartbeat. Respiratory: Positive for shortness of breath. All other systems reviewed and are negative.[facility] 11-23-2022 Miscellaneous Notes* Telephone Encounter - Karen Sanchez Pss - 11/23/2022 9:[address] Lentz office spoke with Russel. He states they have received this referral and have patient scheduled with Dr Lentz at their [place] office on 02/02 @ 2:30. Karen Sanchez Pss * Telephone Encounter - Gale Pereira [facility] - 11/22/2022 1:14 PM EDT Records faxed to Dr. Lentz. Electronically signed by Gale Pereira [facility] at 11/22/2022 1:14 PM EDT * Telephone Encounter - Judy Fortune Sec - 11/22/2022 11:29 AM EDT Patient called back states he is sorry he forgot and did r/s to requestd dates thank you * Telephone Encounter - Judy Fortune Sec - 11/22/2022 10:53 AM EDT Images from the original note were not included. Jaya Bai MD P [facility] Clerical Pool Follow-up with Dr. Fatou Lentz for BAL and cultures in [place]. Please include pathology reports from 2020 for [...] records to [place] thanks! documented in this encounterWayne Healthcare Main Campus03-21-2023 Instructions* Patient Instructions* Jaya Bai MD - 11/22/2022 10:39 AM EDT Follow-up with Dr. Fatou Lentz for BAL and cultures in [place]. Please include pathology reports from 2020 for her to review. (Scanned on 01/12/2021) Cancel CT and visit with for tomorrow and reschedule them to 6 weeks further out please. documented in this encounterWayne Healthcare Main Campus03-21-2023 History of Present illness Narrative* Jaya Bai [...] Fatou Lentz for BAL and cultures in [place]. Please include pathology reports from 2020 for her to review. (Scanned on 01/12/2021) Cancel CT and visit with for tomorrow and reschedule them to 6 weeks further out please. Total Time Spent: 25 minutes Jaya Bai MD CC: Maliha Lentz documented in this encounterWayne Healthcare Main Campus02-28-2023 Miscellaneous Notes* Telephone Encounter - Gale Pereira [facility] - 11/01/2022 1:22 PM EST Updated notes and scans faxed to Dr. Lentz. Electronically signed by Gale Pereira [facility] at 11/01/2022 1:22 PM EST documented in this encounterWayne Healthcare Main Campus02-14-2023 Instructions* Patient Instructions* Jaya Bai MD - 10/18/2022 6:12 PM EST Keep plans for CT's in 8 weeks as scheduled and follow up with me in November afterwards. documented in this encounterWayne Healthcare Main Campus02-03-2023 History of Present illness Narrative* Jaya Bai MD - 10/07/2022 3:38 PM EST Images from the original note were not included. NAME: Alessio Burns [facility] NO.: [id number] DATE OF SERVICE: October 07, 2022 (Zac) [...] of himself that he can. 04/22/2021 Colonoscopy ([facility]) Results scanned to [facility] 06/04/2021 Updated Visit, February 05, 2021: Doing [...] 02, 2022 1. 01/10/2022 Partial liver resection: [id number] Order: [id number] Collected 01/10/2022 11:56 AM Status: Final result [...] A3-A4 remainderof specimen. Gross examination performed at [facility], [address] [facility] [address] CLIA# [id number] [facility] January 12, 2022 9:23 AM REVIEW [...] which included preparing to see the patient, isnf-si-iqll patient care, completing clinical documentation, performing a medically appropriate examination, counseling and educating the patient/family/caregiver, ordering medications, tests, or p rocedures, communicating with other HCPs (not separately reported), independently interpreting results (not separately reported), and communicating results to the patient/family/caregiver. Jaya Bai MD, CPE Services Provided at: [facility], [place], [place] & [place], [place] CC: Shaikh Lowell [address] [facility] [address] Maliha Lentz, DO [address] [place] [address] Krzysztof Queen documented in this encounterWayne Healthcare Main Campus01-16-2023 Miscellaneous Notes* Telephone Encounter - Evangelina Sim RN - 09/19/2022 10:42 AM EST Handled in another encounter. Evangelina Sim RN * Telephone Encounter - Evangelina Sim RN - 09/19/2022 10:38 AM EST Images from the original note were not included. MD Evangelina Prabhakar RN; P [facility] Clerical Pool Mario Alberto Hutchinson - can you please call him and tell him that the multiple lesions in his lungs are too small to biopsy by bronchoscopy or by CT guidance, so we will get a baseline PET/CT soon and continue CTscans - next one in 8 weeks documented in this encounterWayne Healthcare Main Campus01-16-2023 Miscellaneous Notes* Telephone Encounter - Ania Laughlin - 09/19/2022 9:48 AM EST Patient has been scheduled for 09/30. Patient has been notified. Ania Laughlin * Telephone Encounter - Malinda Jama RN - 09/19/2022 8:06 AM EST Clerical: PET orders placed. Please schedule. Thanks! Malinda Jama RN * Telephone Encounter - Jaya Bai MD - 09/16/2022 5:18 PM EST Thanks Riley - I had a feeling that was the case - I'll get a PET as some of his nodules have grown to over 8 mm now - I'll get the PET and then figure out the path forward. Always appreciate your help! * Telephone Encounter - Ania Laughlin - 09/16/2022 9:10 AM EST Images from [...] Riley Carter * Telephone Encounter - Ania Laughlin - 09/15/2022 3:00 PM EST CONSULT TO PULMONARY MEDICINE Per Dr. Bai: Persisting and numerous pulmonary nodules with history of lung cancer prior right lobectomy - have order PET but will likely need tissue sampling regadless. Thanks Team! Ania Laughlin documented in this encounterWayne Healthcare Main Campus01-13-2023 Miscellaneous Notes* Telephone Encounter - Ania Laughlin - 09/16/2022 9:15 AM EST Patient has been scheduled for PET scan on 09/30. Patient notified. Ania Laughlin * Telephone Encounter - Malinda Jama RN - 09/16/2022 9:08 AM EST Pt notified and verbalizes understanding. Agrees to PET scan. Clerical: Please schedule and call pt w/ the appointment. Malinda Jama RN * Telephone Encounter - Jaya Bai [...] bronchoscopic biopsy. * Telephone Encounter - Ania Laughlin - 09/15/2022 5:03 PM EST PET/CT in the next 2 weeks Patient thought it was decided this was being put on hold for now. Did you still want patient scheduled for PET? Ania Laughlin documented in this encounterWayne Healthcare Main Campus11-17-2022 Instructions* Patient Instructions* Jaya Bai MD - 07/21/2022 2:[address] chest in 8 weeks Labs same day RTC same day after scan documented in this encounterWayne Healthcare Main Campus11-17-2022 History of Present illness Narrative* Jaya Bai MD - 07/21/2022 1:45 PM EST Images from the original note were not included. NAME: Alessio Burns [facility] NO.: [id number] DATE OF SERVICE: July 21, 2022 (Zac) Some elements in this clinic [...] 6-month gap between resection and presentation to tx. He remains at high risk because of [...] of himself that he can. 04/22/2021 Colonoscopy ([facility]) Results scanned to [facility] 06/04/2021 Updated Visit, February 05, 2021: Doing [...] 02, 2022 1. 01/10/2022 Partial liver resection: [id number] Order: [id number] Collected 01/10/2022 11:56 AM Status: Final result [...] A3-A4 remainderof specimen. Gross examination performed at [facility], [address] [place] [address] CLIA# [id number] [facility] January 12, 2022 9:23 AM REVIEW [...] which included preparing to see the patient, txaq-cp-xbnm patient care, completing clinical documentation, performing a medically appropriate examination, counseling and educating the patient/family/caregiver, ordering medications, tests, or p rocedures, and independently interpreting results (not separately reported). Jaya Bai MD, CPE Services Provided at: [facility], [place], [place] & [place], [place] CC: Shaikh Lowell [address] [facility] [address] Maliha Lentz, DO [address] [place] [address] Krzysztof Queen documented in this encounterWayne Healthcare Main Campus08-01-2022 Miscellaneous Notes* Telephone Encounter - Evangelina Sim RN - 04/04/2022 12:11 PM EDT Informed pt of Dr Fam's message. Pt verbalized understanding and denies further needs at this time. Evangelina Sim RN * Telephone Encounter - Jaya Bai MD - 04/02/2022 4:04 PM EDT Overall scan looks good but he has a small new spot that will need to be followed (in the lung) - probably is nothing to worry about. * Telephone Encounter - Evangelina Sim RN - 04/01/2022 3:36 PM EDT Received call from pt requesting CT results. DARLEEN: Please review and advise. Any message for pt regarding results. Evangelina Sim RN documented in this encounterWayne Healthcare Main Campus07-28-2022 History of Present illness Narrative* Jaya Bai MD - 03/31/2022 1:30 PM EDT Images from the original note were not included. NAME: Alessio Burns [facility] NO.: [id number] DATE OF SERVICE: March 31, 2022 Some [...] undergo CABG and aortic valve repair emergently 2019. Subsequent work-up demonstrated malignancy with no evidence [...] HPI: Updated Visit, March 31, 2022: Bari son [...] of himself that he can. 04/22/2021 Colonoscopy ([facility]) Results scanned to [facility] 06/04/2021 Updated Visit, February 05, 2021: Doing [...] 02, 2022 1. 01/10/2022 Partial liver resection: [id number] Order: [id number] Collected 01/10/2022 11:56 AM Status: Final result [...] A4 remainderof specimen. Gross examination performed at [facility], [address] [place] [address] CLIA# [id number] [facility] January 12, 2022 9:23 AM REVIEW [...] which included preparing to see the patient, yluo-bn-ynns patient care, completing clinical documentation, performing a medically appropriate examination, counseling and educating the patient/family/caregiver and ordering medications, tests, or procedures. Jaya Bai MD, CPE Services Provided at: [facility], [place], [place] & [place], [place] CC: Shaikh Lowell [address] [facility] [address] Krzysztof Queen documented in this encounterWayne Healthcare Main Campus06-29-2022 History of Present illness Narrative* Jaya Bai MD - 03/02/2022 5:49 PM EDT Images from the original note were not included. NAME: Alessio Burns CLINIC NO.: [id number] DATE OF SERVICE: March 02, 2022 Some [...] 6-month gap between resection and presentation to tx. He rem ains at high risk because [...] of himself that he can. 04/22/2021 Colonoscopy ([facility]) Results scanned to [facility] 06/04/2021 Updated Visit, February 05, 2021: Doing [...] 02, 2022 1. 01/10/2022 Partial liver resection: [id number] Order: [id number] Collected 01/10/2022 11:56 AM Status: Final result [...] A4 remainderof specimen. Gross examination performed at [facility], [address] [facility], [facility] [address] CLIA# [id number] [facility] January 12, 2022 9:23 AM HISTORY REVIEWED [...] Jaya Bai MD, CPE Services Provided at: [facility], [place], [place] & [place], [place] CC: Shaikh Lowell [address] [place] [address] Krzysztof Queen documented in this encounterWayne Healthcare Main Campus06-29-2022 Nurse Note* Deepti Cortess - 03/02/2022 9:07 AM EDT Clinical questionnaires incomplete due to Patient was roomed by provider. Phone visit Deepti Thakkar documented in this encounterWayne Healthcare Main Campus06-28-2022 Miscellaneous Notes* Telephone Encounter - Ania [place] - 03/01/2022 9:01 AM EDT Images from the original note were not included. Call placed to patient -- He has been scheduled for phone follow up tomorrow, 03/02. MD Ania Kaur; Malinda Jama RN [facility]! Looks like we missed scheduling him back - can I just have a phone call with him please and then I will et up whatever scans and appointment we need. Previous Messages ----- Message ----- From: Bj Mota MD Sent: 01/17/2022 12:33 PM EDT To: Jaya Bai MD, Evangelina Maier RN Its benign! Yeah Once in a while we can give good news to a patient, I already called and told him about the path and said that your office will be in touch. Best, Bj ----- Message ----- From: Lab, Background User Sent: 01/16/2022 7:54 AM EDT To: Bj Mota MD documented in this encounterWayne [facility]05-09-2022 NoteHNO ID: [id number] Author: Rosalino Cummings APRN.FIREWALL ENGINEER Service: Anesthesiology Author Type: Nurse Heavy Equipment Sales Associate Type: Anesthesia Procedure Notes Filed: 01/10/2022 11:32 AM Note Text: ANESTHESIOLOGY PROCEDURE NOTE A-Line General Information Procedure Start Time/Medication Administration: 01/10/2022 11:02 AM Patient location during procedure: OR Timeout Performed Pre-procedure: timeout performed Consent Obtained: Yes Indication: continuous blood pressure monitoring Staffing Anesthesiologist: Alena Mortensen MD FIREWALL ENGINEER: Rosalino Cummings APRN.FIREWALL ENGINEER Performed by: ENRIQUE Preparation Sterility Preparation: hand [...] Localized with 2% Lidocaine SIGNATURE: Rosalino Cummings APRN.CRNA PATIENT NAME: Alessio Burns DATE: January 10, 2022 TIME: 11:31 AM CSN: [id number] NoteHNO ID: [id number] Author: Rosalino Cummings APRN.CRNA Service: Anesthesiology Author Type: Nurse Heavy Equipment Sales Associate Type: Anesthesia Procedure Notes Filed: 01/10/2022 11:30 AM Note Text: ANESTHESIOLOGY PROCEDURE NOTE PIV General Information Procedure Start Time/Medication Administration: 01/10/2022 11:20 AM Patient Location: OR Staffing FIREWALL ENGINEER: Rosalino Cummings APRN.FIREWALL ENGINEER Performed by: ENRIQUE Preparation Sterility Preparation: hand [...] January 10, 2022 TIME: 11:30 AM CSN: [id number] NoteHNO ID: [id number] Author: Rosalino Cummings APRN.CRNA Service: Anesthesiology Author Type: Nurse Heavy Equipment Sales Associate Type: Anesthesia Procedure Notes Filed: 01/10/2022 11:28 AM Note Text: ANESTHESIOLOGY PROCEDURE NOTE Airway General Information Procedure Start Time/Medication Administration: 01/10/2022 11:07 AM Patient location during procedure: OR Timeout Performed Pre-procedure: timeout performed Consent Obtained: Yes 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 Staffing Anesthesiologist: Alena Mortensen MD FIREWALL ENGINEER: Rosalino Cummings APRN.FIREWALL ENGINEER Performed by: ENRIQUE Indications and Patient Condition [...] 1 Airway not difficult SIGNATURE: Rosalino Cummings APRN.FIREWALL ENGINEER PATIENT NAME: Alessio Burns DATE: January 10, 2022 TIME: 11:27 AM CSN: [id number] History of Present illness Narrative* Bj Mota [...] lobectomy 09/24/2020 (Path: [id number]), thoracic aneurysm, CAD, [place], emergent AVR and CABG 06/2020 (current Plavix/asa), [...] minutes Bj Mota MD documented in this encounterWayne [facility]05-04-2022 Nurse Note* Dolly Ramírez LPN - 01/05/2022 11:10 AM EDT Letter per Delia Jeffries CNP faxed to DR Ambrosio cardiology, as requested, re:Thinner guidance. Confirmation rcd. documented in this encounterWayne Healthcare [facility] Campus05-04-2022 Instructions* Patient Instructions* Delia Jeffries APRN.CNP - 01/05/2022 9:50 AM EDT PATIENT PREOPERATIVE INSTRUCTIONS Bj Mota MD has scheduled you for your procedure at this surgery center: [facility]: [phone] --[address] [address]. Please check in on the1st floor at registration desk 6. Please read [...] or other anticoagulants without consulting with your distribution driver or prescribing physician. - Stop Vitamin E, [...] Procedures: - YOU MUST HAVE A RESPONSIBLE LOG HANDLER TAKE YOU HOME. A WEB PRESS OPERATOR ASSISTANT OR AWS DEVELOPER CANNOT BE MADE A RESPONSIBLE LOG HANDLER. - We recommend that a responsible person [...] Advance Directive, please fax a copy to [phone] or email to for it to be [...] your chart that day. documented in this encounterWayne Healthcare [facility] Campus05-04-2022 History and physical note * Delia Jeffries APRN.CNP - 01/05/2022 9:40 AM EDT HISTORY AND [...] fevers. Neuro: No history of TIA's, stroke, GUITAR MAKER HAND tumor, impaired sensorium, hemiplegia, paraplegia or quadraplegia. No neurological symptoms or problems. Respiratory: Positive for Moderate COPD, Tobacco Use 1 ppd, Negative for Current cough, Home O2 Cardiovascular: Positive for: Anticoagulation therapy, CAD; Last Office Visit: 10/2021, CHF, HLD, Hypertension, FL, Open heart 2019, Valve surgery 2019, Negative [...] cardiology Cancer of trachea, bronchus, and lung (HCC) Assessment: s/p lobectomy September 2020, stable Follows up with PCP HTN (hypertension) Assessment: managed with med, stable 01/05/2022 127/59 10/29/2021 119/56 Smoker Assessment: 1ppd for 40 years COPD (chronic obstructive pulmonary disease) ([facility]) Assessment: managed with inhalers, stable HLD (hyperlipidemia) [...] and aspirin guidance. Patient instructed to call distribution driver for answer regarding medications CONSULTS: Patient does [...] 2022 TIME: 9:41 AM documented in this encounterWayne Healthcare [facility] Campus04-15-2022 History of Present illness Narrative* Jaya Bai MD - 12/17/2021 4:29 PM EDT Images from the original note were not included. NAME: Alessio Burns [facility] NO.: [id number] DATE OF SERVICE: December 17, 2021 Some [...] a nebulizer PLAN: 1. Please sed to [place] or [place] for image guided liver Biopsy. 2. Call [...] of himself that he can. 04/22/2021 Colonoscopy ([facility]) Results scanned to [facility] 06/04/2021 Updated Visit, February 05, 2021: Doing [...] Jaya Bai MD, CPE Services Provided at: [place], [place] & [place], [place] CC: Shaikh Lowell [address] [facility] [address] [address] [facility]* Diagnosis Cancer of trachea, bronchus, and lung (HCC)- Primary Malignant neoplasm of other parts of bronchus or lung Liver mass, right lobe Unspecified disorder of liver documented in [facility] encounter [facility]* Diagnosis Pre-op evaluation- Primary Preoperative examination, unspecified Liver mass Unspecified disorder of liver Coronary arteriosclerosis Coronary atherosclerosis of unspecified type of vessel, assiniboine and sioux or graft Chronic diastolic CHF (congestive heart [...] disorder of liver documented in this encounter [facility] note* Diagnosis Liver mass- Primary Unspecified disorder of liver [facility] Cancer of trachea, bronchus, and lung (HCC)- Primary Malignant neoplasm of other parts of bronchus or lung Malignant neoplasm of unspecified part of unspecified bronchus or lung (HCC) Panlobular emphysema (HCC) Other emphysema documented in this encounter [facility]* Diagnosis Malignant neoplasm of unspecified part of unspecified bronchus or lung (HCC)- Primary Cancer of trachea, bronchus, and lung (HCC) Malignant neoplasm of other parts of bronchus or lung Panlobular emphysema (HCC) Other emphysema documented [facility] this encounter [facility]* Diagnosis Onset Date Resolution Status Personal history of colonic polyps [facility] Work Phone: evaluation note* Diagnosis Cancer of trachea, bronchus, and lung (HCC)- Primary Malignant neoplasm of other parts of bronchus or lung Lung nodules Other nonspecific abnormal finding of lung field Panlobular emphysema (HCC) Other emphysema documented [facility]* Diagnosis Malignant neoplasm of unspecified part of unspecified bronchus or lung (HCC)- Primary [facility]* Diagnosis Malignant neoplasm of unspecified part of unspecified bronchus or lung (HCC)- Primary Lung nodules Other nonspecific abnormal finding of lung field 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 reaction to tuberculin skin test without active tuberculosis Non-caseating granuloma Pyogenic granuloma of skin and subcutaneous tissue documented [facility]* Diagnosis Malignant neoplasm of unspecified part of unspecified bronchus or lung (HCC)- Primary [facility]* Diagnosis Malignant neoplasm of unspecified part of unspecified bronchus or lung (HCC)- Primary Lung nodules Other nonspecific abnormal finding of lung field [facility]* Diagnosis Abnormal finding on GI tract imaging- Primary Nonspecific (abnormal) findings on radiological and other examination of gastrointestinal tract Malignant neoplasm of unspecified part of unspecified bronchus or lung (HCC) documented in this encounter [facility] noteNo assessment information availableCh[facility] Work Phone: evaluation note* Diagnosis Malignant neoplasm of unspecified part of unspecified bronchus or lung (HCC)- Primary [facility]* Diagnosis Atherosclerotic heart disease of assiniboine and 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 angina pectoris (CMS/HCC) documented in this encounter [facility]* Diagnosis Lower abdominal pain- Primary Abdominal pain, other specified site Malignant neoplasm of upper lobe of right lung (HCC) Malignant neoplasm of upper lobe, bronchus or lung documented in this encounter [facility] CampusHistory and physical note Author Paramjit Spring [facility] May 30, 2023 1:25pm Note Date/Time May 30, 2023 1:26pm [facility] [address] [place] [address] Gastroenterology H&P Signed Patient: Alessio Burns MR#: [id number] : 1950 Acct:[id number] Age/Sex: 73 / M Adm Date: 3 [...] Spring MD Documented By: Paramjit Spring MD 05/30/231 Signed By: <Electronically signed by Paramjit Spring MD> 05/30/23 9422 [facility] Work Phone: History general Narrative - Reported* Type Description Date Surgical History open heart surgery Hospitalization History see above [facility] Other Hospital Discharge instructions Additional Instructions DISCHARGE [...] problems. -Follow up with PCP. -Office number [phone].[facility] Work Phone: InstructionsNot on filedocumented in this encounter [facility] for referral (narrative)* Diagnostic Procedure Only (Routine) - Pending Review Specialty Diagnoses / Procedures Referred By Efrain espinoza Referred To Contact MOLECULAR & FUNCTIONAL IMAGING Diagnoses Malignant neoplasm of unspecified part of unspecified bronchus or lung (HCC) Procedures NM PET/CT SKULL-THIGH SUBSEQUENT PET IMAGING CT ATTENUATION SKULL BASE MID-THIGH Jaya Bai MD [address] [place] [address] [place] [address] Molecular & Functional Imaging [address] [place] [address] Referral ID Status Reason Start Date Expiration Date Visits Requested Visits Authorized [id number] Pending Review Auto-Generat ed Referral 02/19/2023 02/07/2024 1 1 [facility] for referral (narrative)* Diagnostic Procedure Only (Routine) - Pending Review Specialty Diagnoses / Procedures Referred By Efrain espinoza Referred To Contact MOLECULAR & FUNCTIONAL IMAGING Diagnoses Malignant neoplasm of unspecified part of unspecified bronchus or lung (HCC) Lung nodules Procedures NM PET/CT SKULL-THIGH SUBSEQUENT PET IMAGING CT ATTENUATION SKULL BASE MID-THIGH Jaya Bai MD [address] [place] [address] [place] [address] Molecular & Functional Imaging [address] [place] [address] Referral ID Status Reason Start Date Expiration Date Visits Requested Visits Authorized [id number] Pending Review Auto-Generat ed Referral 06/03/2023 04/01/2024 1 1 [facility] (n[facility]ative)* Diagnostic Procedure Only (Routine) - Authorized Specialty Diagnoses / Procedures Referred By Contac t Referred To Contact MOLECULAR & FUNCTIONAL IMAGING Diagnoses Abnormal finding on GI tract imaging Malignant neoplasm of unspecified part of unspecified bronchus or lung (HCC) Procedures NM PET/CT SKULL-THIGH SUBSEQUENT PET IMAGING CT ATTENUATION SKULL BASE MID-THIGH Jaya Bai MD [address] [place] [address] [place] [address] Molecular & Functional Imaging [address] [place] [address] Referral ID Status Reason Start Date Expiration Date Visits Requested Visits Authorized [id number] Authorized Auto-Generat ed Referral 08/04/2023 06/03/2024 1 1 * Consult, Test, Treat (Routine) - Authorized Specialty Diagnoses / Procedures Referred By Efrain t Referred To Contact Gastroenterology Diagnoses Abnormal finding on GI tract imaging Procedures CONSULT TO GASTROENTEROLOGY OFFICE/OUTPATIENT [facility] 60-74 MINUTES Jaya Bai MD [address] [place] [address] [place] [address] Referral ID Status Reason Start Date Expiration Date Visits Requested Visits Authorized [id number] Authorized PCP Requested Referral 05/05/2023 05/04/2024 1 1 [facility] Summary Purpose Family History No Family History Records Found Relationship Condition Age at Onset Recorded Date/T han father Malignant neoplasm Unknown Relationship Condition Age at Onset Recorded Date/T han father Malignant neoplasm of lung Unknown sister Diabetes mellitus Unknown Advance Directives No Advanced Directives Records FoundDocuments on File Type Date Recorded 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 Advance Directive(s) 12/29/2021 9:19 AM Documents on File Type Date Recorded 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 Advance Directive(s) 12/29/2021 9:19 AM [...] COMPUTED TOMOGRAPHY THORAX W/CONTRAST Jaya Bai MD [address] [place] [address] [place] [address] Ct Imaging Referral ID Status Reason Start Date Expiration Date Visits Requested Visits Authorized [id number] Pending Review Auto-Generat ed Referral 03/30/2022 04/01/2023 1 1 Specialty Diagnoses / Procedures Referred By Contac t Referred To Contact CT IMAGING Diagnoses Malignant neoplasm of unspecified part of unspecified bronchus or lung (HCC) Procedures CT CHEST W IVCON DIAGNOSTIC COMPUTED TOMOGRAPHY THORAX W/CONTRAST Jaya Bai MD [address] [place] [address] [place] [address] Ct Imaging Referral ID Status Reason Start Date Expiration Date Visits Requested Visits Authorized [id number] Pending Review Auto-Generat ed Referral 05/03/2023 1 1 Specialty Diagnoses / Procedures Referred By Contac t Referred To Contact CT IMAGING Diagnoses Cancer of trachea, bronchus, and lung (HCC) Lung nodules Procedures CT CHEST W IVCON DIAGNOSTIC COMPUTED TOMOGRAPHY THORAX W/CONTRAST Jaya Bai MD [address] [place] [address] [place] [address] Ct Imaging Referral ID Status Reason Start Date Expiration Date Visits Requested Visits Authorized [id number] Authorized Auto-Generat ed Referral 09/15/2022 08/20/2023 1 1 Specialty Diagnoses / Procedures Referred By Contac t Referred To Contact CT IMAGING Diagnoses Malignant neoplasm of unspecified part of unspecified bronchus or lung (HCC) Procedures CT CHEST W IVCON DIAGNOSTIC COMPUTED TOMOGRAPHY THORAX W/CONTRAST Jaya Bai MD [address] [place] [address] [place] [address] [place] [id number] Referral ID Status Reason Start Date Expiration Date Visits Requested Visits Authorized [id number] Authorized Auto-Generat ed Referral 11/10/2023 09/09/2024 1 1 Specialty Diagnoses / Procedures Referred By Contac t Referred To Contact CT IMAGING Diagnoses Malignant neoplasm of upper lobe of right lung (HCC) Procedures CT CHEST W IVCON DIAGNOSTIC COMPUTED TOMOGRAPHY THORAX W/CONTRAST Jaya Bai MD [address] [place] [address] [address] [place] [id number] [facility] Referral ID Status Reason Start Date Expiration Date Visits Requested Visits Authorized [id number] Authorized Auto-Generat ed Referral 02/17/2024 12/16/2024 1 1 Specialty Diagnoses / Procedures Referred By Contac t Referred To Contact CT IMAGING Diagnoses Lower abdominal pain Malignant neoplasm of upper lobe of right lung (HCC) Procedures CT ABD/PEL W IVCON CT ABD & PELVIS W/CONTRAST Jaya Bai MD [address] [place] [address] [address] [place] [id number] [place] [id number] Referral ID Status Reason Start Date Expiration Date Visits Requested Visits Authorized [id number] Authorized Auto-Generat ed Referral 02/17/2024 12/16/2024 1 1 Chief Complaint and Reason for [...] and content) DATE CREATED AUTHOR 09/24/2021 [facility] DATE CREATED AUTHOR AUTHOR'S ORGANIZ ATION 01/19/2022 [facility] DATE CREATED AUTHOR AUTHOR'S ORGANIZ ATION 01/13/2023 [facility] DATE CREATED AUTHOR AUTHOR'S ORGANIZ ATION 06/07/2023 [facility] DATE CREATED AUTHOR AUTHOR'S ORGANIZ ATION 10/07/2023 [facility] DATE CREATED AUTHOR AUTHOR'S ORGANIZ ATION 02/26/[address] [facility] DATE CREATED AUTHOR AUTHOR'S ORGANIZ ATION 02/27/2024 [facility] dical Specialists EPIC Source Comments (unrecognize d section and content) In the event this informatio n is protected by the Federal Confidentiality of Alcohol and Drug Abuse Patient Records regulations: The Federal rules restrict any use of the information to criminally investigate or prosecute any alcohol or drug abuse patient.[facility] CampusIn the event this information is protected by the Federal Confidentiality of Alcohol and Drug Abuse Patient Records regulations: The Federal rules restrict any use of the information to criminally investigate or prosecute any alcohol or drug abuse patient.[facility] CampusIn the event this information is protected by the Federal Confidentiality of Alcohol and Drug Abuse Patient Records regulations: The Federal rules restrict any use of the information to criminally investigate or prosecute any alcohol or drug abuse patient.[facility] CampusIn the event this information is protected by the Federal Confidentiality of Alcohol and Drug Abuse Patient Records regulations: The Federal rules restrict any use of the information to criminally investigate or prosecute any alcohol or drug abuse patient.[facility] CampusIn the event this information is protected by the Federal Confidentiality of Alcohol and Drug Abuse Patient Records regulations: The Federal rules restrict any use of the information to criminally investigate or prosecute any alcohol or drug abuse patient.[facility] CampusIn the event this information is protected by the Federal Confidentiality of Alcohol and Drug Abuse Patient Records regulations: The Federal rules restrict any use of the information to criminally investigate or prosecute any alcohol or drug abuse patient.[facility] CampusIn the event this information is protected by the Federal Confidentiality of Alcohol and Drug Abuse Patient Records regulations: The Federal rules restrict any use of the information to criminally investigate or prosecute any alcohol or drug abuse patient.[facility] CampusIn the event this information is protected by the Federal Confidentiality of Alcohol and Drug Abuse Patient Records regulations: The Federal rules restrict any use of the information to criminally investigate or prosecute any alcohol or drug abuse patient.[facility] CampusIn the event this information is protected by the Federal Confidentiality of Alcohol and Drug Abuse Patient Records regulations: The Federal rules restrict any use of the information to criminally investigate or prosecute any alcohol or drug abuse patient.[facility] CampusIn the event this information is protected by the Federal Confidentiality of Alcohol and Drug Abuse Patient Records regulations: The Federal rules restrict any use of the information to criminally investigate or prosecute any alcohol or drug abuse patient.[facility] CampusIn the event this information is protected by the Federal Confidentiality of Alcohol and Drug Abuse Patient Records regulations: The Federal rules restrict any use of the information to criminally investigate or prosecute any alcohol or drug abuse patient.[facility] CampusIn the event this information is protected by the Federal Confidentiality of Alcohol and Drug Abuse Patient Records regulations: The Federal rules restrict any use of the information to criminally investigate or prosecute any alcohol or drug abuse patient.[facility] CampusIn the event this information is protected by the Federal Confidentiality of Alcohol and Drug Abuse Patient Records regulations: The Federal rules restrict any use of the information to criminally investigate or prosecute any alcohol or drug abuse patient.[facility] CampusIn the event this information is protected by the Federal Confidentiality of Alcohol and Drug Abuse Patient Records regulations: The Federal rules restrict any use of the information to criminally investigate or prosecute any alcohol or drug abuse patient.[facility] CampusIn the event this information is protected by the Federal Confidentiality of Alcohol and Drug Abuse Patient Records regulations: The Federal rules restrict any use of the information to criminally investigate or prosecute any alcohol or drug abuse patient.[facility] CampusIn the event this information is protected by the Federal Confidentiality of Alcohol and Drug Abuse Patient Records regulations: The Federal rules restrict any use of the information to criminally investigate or prosecute any alcohol or drug abuse patient.[facility] CampusIn the event this information is protected by the Federal Confidentiality of Alcohol and Drug Abuse Patient Records regulations: The Federal rules restrict any use of the information to criminally investigate or prosecute any alcohol or drug abuse patient.[facility] CampusIn the event this information is protected by the Federal Confidentiality of Alcohol and Drug Abuse Patient Records regulations: The Federal rules restrict any use of the information to criminally investigate or prosecute any alcohol or drug abuse patient.[facility] CampusIn the event this information is protected by the Federal Confidentiality of Alcohol and Drug Abuse Patient Records regulations: The Federal rules restrict any use of the information to criminally investigate or prosecute any alcohol or drug abuse patient.[facility] CampusIn the event this information is protected by the Federal Confidentiality of Alcohol and Drug Abuse Patient Records regulations: The Federal rules restrict any use of the information to criminally investigate or prosecute any alcohol or drug abuse patient.[facility] CampusIn the event this information is protected by the Federal Confidentiality of Alcohol and Drug Abuse Patient Records regulations: The Federal rules restrict any use of the information to criminally investigate or prosecute any alcohol or drug abuse patient.[facility] CampusIn the event this information is protected by the Federal Confidentiality of Alcohol and Drug Abuse Patient Records regulations: The Federal rules restrict any use of the information to criminally investigate or prosecute any alcohol or drug abuse patient.[facility] CampusIn the event this information is protected by the Federal Confidentiality of Alcohol and Drug Abuse Patient Records regulations: The Federal rules restrict any use of the information to criminally investigate or prosecute any alcohol or drug abuse patient.[facility] the event this information is protected by the Federal Confidentiality of Alcohol and Drug Abuse Patient Records regulations: The Federal rules restrict any use of the information to criminally investigate or prosecute any alcohol or drug abuse patient.[facility] Reason for Visit (unrecogniz ed section and [...] Comments Referral Information GI Reason Comments Orders Reason Comments Med Refill Care Teams (unrecognized sec tion and content) Team Status: Active Member Role Status Dates Shaikh Lowell MD Primary Care Provider Active Team Status: Inactive Member Role Status Dates Shaikh Lowell MD Primary Care Provider Active Paramjit Spring MD Attending Provider Active Last Inserter Relationship Specialty Start Date End Date Shaikh Etienne MD [address] [place] [address] PCP - General Primary Care 01/13/21 Last Inserter Relationship Specialty Start Date End Date Shaikh Etienne MD [address] [place] [address] PCP - General Primary Care 01/13/21 Sydnie Ambrosio MD [address] [place] [address] Enrolled Agent Cardiology 01/04/22 Last Inserter Relationship Specialty Start Date End Date Shaikh Etienne MD [address] [place] [address] PCP - General Primary Care 01/13/21 Sydnie Ambrosio MD [address] [place] [address] Enrolled Agent Cardiology 01/04/22 Last Inserter Relationship Specialty Start Date End Date Shaikh Etienne MD [address] [place] [address] PCP - General Primary Care 01/13/21 Sydnie Ambrosio MD [address] [place] [address] Enrolled Agent Cardiology 01/04/22 Last Inserter Relationship Specialty Start Date End Date Shaikh Etienne MD [address] [place] [address] PCP - General Primary Care 01/13/21 Sydnie Ambrosio MD [address] [place] [address] Enrolled Agent Cardiology 01/04/22 Last Inserter Relationship Specialty Start Date End Date Shaikh Etienne MD [address] [place] [address] PCP - General Primary Care 01/13/21 Sydnie Ambrosio MD [address] [place] [address] Enrolled Agent Cardiology 01/04/22 Last Inserter Relationship Specialty Start Date End Date Shaikh Etienne MD [address] [place] [address] PCP - General Primary Care 01/13/21 Sydnie Ambrosio MD [address] [place] [address] Enrolled Agent Cardiology 01/04/22 Team Status: Inactive Member Role Status Dates Shaikh Lowell MD Primary Care Provider Active Krzysztof Queen DO Attending Provider Active Last Inserter Relationship Specialty Start Date End Date Shaikh Etienne MD [address] [place] [address] PCP - General Primary Care 01/13/21 Sydnie Ambrosio MD [address] [place] [address] Enrolled Agent Cardiology 01/04/22 Maliha Lentz DO [address] [place] [address] Internal Medicine 09/15/22 Last Inserter Relationship Specialty Start Date End Date Shaikh Etienne MD [address] [place] [place] [address] PCP - General Primary Care 01/13/21 Sydnie Ambrosio MD [address] [place] [address] Enrolled Agent Cardiology 01/04/22 Maliha Lentz DO [address] [place], [place] [address] [address] Internal Medicine 09/15/22 Last Inserter Relationship Specialty Start Date End Date Shaikh Etienne MD [address] [place] [address] PCP - General Primary Care 01/13/21 Sydnie Ambrosio MD [address] [place] [address] Enrolled Agent Cardiology 01/04/22 Maliha Lentz, DO [address] [place] [address] Internal Medicine 09/15/22 Last Inserter Relationship Specialty Start Date End Date Shaikh Etienne MD [address] [place] [address] PCP - General Primary Care 01/13/21 Sydnie Ambrosio MD [address] [place] [place] [address] Enrolled Agent Cardiology 01/04/22 Maliha Lentz, DO [address] [place] [address] Internal Medicine 09/15/22 Last Inserter Relationship Specialty Start Date End Date Shaikh Etienne MD [address] [place] [address] PCP - General Primary Care 01/13/21 Sydnie Ambrosio MD [address] [place] [address] Enrolled Agent Cardiology 01/04/22 aMliha Lentz, DO [address] [place] [address] Internal Medicine 09/15/22 Last Inserter Relationship Specialty Start Date End Date Shaikh Etienne MD [address] [place] [address] PCP - General Primary Care 01/13/21 Sydnie Ambrosio MD [address] [place] [address] Enrolled Agent Cardiology 01/04/22 Maliha Lentz DO [address] [place] [address] Internal Medicine 09/15/22 Last Inserter Relationship Specialty Start Date End Date Shaikh Etienne MD [address] [place] [address] PCP - General Primary Care 01/13/21 Sydnie Ambrosio MD [address] [place] [address] Enrolled Agent Cardiology 01/04/22 Maliha Lentz DO [address] [place] [address] Internal Medicine 09/15/22 Last Inserter Relationship Specialty Start Date End Date Shaikh Etienne MD [address] [place] [address] PCP - General Primary Care 01/13/21 Sydnie Ambrosio MD [address] [place] [address] Enrolled Agent Cardiology 01/04/22 Maliha Lentz DO [address] [facility] [place] [address] Internal Medicine 09/15/22 Last Inserter Relationship Specialty Start Date End Date Shaikh Etienne MD [address] [place] [address] PCP - General Primary Care 01/13/21 Sydnie Ambrosio MD [address] [place] [address] Enrolled Agent Cardiology 01/04/22 Maliha Lentz DO [address] [place], [place] [address] [address] Internal Medicine 09/15/22 Last Inserter Relationship Specialty Start Date End Date Shaikh Etienne MD [address] [place] [address] PCP - General Primary Care 01/13/21 Sydnie Ambrosio MD [address] [place] [address] Enrolled Agent Cardiology 01/04/22 Maliha Lentz DO [address] [facility] [place] [address] Internal Medicine 09/15/22 Last Inserter Relationship Specialty Start Date End Date Shaikh Etienne MD [address] [place] [address] PCP - General Primary Care 01/13/21 Sydnie Ambrosio MD [address] [facility] [place] [address] Enrolled Agent Cardiology 01/04/22 Maliha Lentz DO [address] [place] [address] Internal Medicine 09/15/22 Last Inserter Relationship Specialty Start Date End Date Shaikh Etienne MD [address] [place] [address] PCP - General Internal Medicine 08/19/22 Last Inserter Relationship Specialty Start Date End Date Shaikh Etienne MD [address] [place] [address] PCP - General Internal Medicine 09/22/23 Last Inserter Relationship Specialty Start Date End Date Shaikh Etienne MD [address] [place] [address] PCP - General Primary Care 01/13/21 Sydnie Ambrosio MD [address] [place] [address] Enrolled Agent Cardiology 01/04/22 Maliha Lentz DO [address] [place] [address] Internal Medicine 09/15/22 Last Inserter Relationship Specialty Start Date End Date Shaikh Etienne MD [address] [place] [place] [address] PCP - General Primary Care 01/13/21 Sydnie Ambrosio MD [address] [place] [address] Enrolled Agent Cardiology 01/04/22 Maliha Lentz DO [address] [place] [address] Internal Medicine 09/15/22 Last Inserter Relationship Specialty Start Date End Date Shaikh Etienne MD [address] [place] [address] PCP - General Primary Care 01/13/21 Sydnie Ambrosio MD [address] [place] [address] [place] [address] Enrolled Agent Cardiology 01/04/22 Maliha Lentz DO [address] [place] [address] Internal Medicine 09/15/22 FOR RECORDS PERTAINING TO PATIENTS WHO ARE [...] BE BASED ON THE PRIMARY CLINICAL RECORDS. [facility]. provides no warranty or guarantee of the accuracy or completeness of information in this document.
== END 2024-02-27 12:55 | disposition home or self-care (01) ==
LOC: CT 12:54
PROVIDERS: PCP Internal Medicine; Visit Provider Internal Medicine
DX: S09.90XA Unspecified injury of head, initial encounter (principal); S02.2XXA Fracture of nasal bones, initial encounter for closed fracture
CPT/HCPCS: 70450

== ENCOUNTER 2024-03-22 12:51 | Outpatient (OUT) | payer MEDICARE, MEDICAID, SELFPAY ==
--- NOTE | 2024-03-22 13:00 | CA_ITS ---
Patient Name: ALESSIO BURNS MR#: [id number] : 1950 Exam Date: 03/22/2024 Ordering Doctor: DR SYDNIE AYOUB M.D. ECHOCARDIOGRAM REPORT PROCEDURE: CA ECHO DOPPLER COMPLETE INDICATIONS: Heart failure with reduced ejection fraction, CABGx3, aortic valve replacement, smoker, hypertension COMPARISON: None. DESCRIPTION: COMPLETE ECHOCARDIOGRAM Real-time transthoracic echocardiography with 2D, M-mode, spectral and color flow Doppler performed. QUALITY: Technical quality was good. LEFT VENTRICLE: Normal chamber size. Mild concentric left ventricular hypertrophy. LV EF: Global left ventricular systolic function is hyperdynamic; visually estimated ejection fraction is 65-70%. No significant wall motion abnormality seen. DIASTOLIC: Normal diastolic function. ATRIAL SEPTUM: Visually appears intact. LEFT ATRIUM: Normal chamber size. RIGHT ATRIUM: Normal chamber size. RIGHT VENTRICLE: Normal chamber size. Normal right ventricular systolic function. TRICUSPID VALVE: Normal mobility and thickness. No stenosis with trivial regurgitation. No evidence of pulmonary hypertension. RVSP 22 mmHg MITRAL VALVE: Normal mobility and thickness. No evidence of mitral valve stenosis. There is no mitral annular calcification. Mild mitral regurgitation. AORTIC VALVE: Bio-Prosthetic valve appears well seated in the aortic position with normal Doppler flow. No aortic regurgitation. AORTIC ROOT: Normal diameter and appearance. Ascending aorta is mildly dilated (4.1 cm). PULMONIC VALVE: Normal thickness and mobility. No stenosis. No regurgitation. PERICARDIUM: Anterior free space; trivial effusion versus fat pad. IVC: Collapses with inspirations. IVC is normal in size. CONCLUSION: 1. Global left ventricular systolic function is hyperdynamic; visually estimated ejection fraction is 65 to 70% 2. Right ventricle is normal in size and systolic function 3. Mild left ventricular hypertrophy 4. Normal diastolic function 5. The left atrium is normal in size 6. Mild mitral regurgitation 7. A bioprosthetic valve is seen in the aortic position with normal Doppler flow 8. The ascending aorta is mildly dilated 9. Anterior free space; trivial effusion versus fat pad Adult Echocardiography Procedure Report Left Ventricle LVEDD (3.7 - 5.6 cm): 4.72 cm LVESD (2.2 - 4.0 cm): 4.07 cm LVIVS thickness (0.6 - 1.2 cm): 1.35 cm LVPW thickness (0.5 - 1.0 cm): 1.18 cm e': 0.12 m/s E - e': 6.80 LVOT Max Gradient: 1.63 mm[Hg] LVOT Area (cm2): 0.64 m/s Peak Velocity (LVOT): 0.64 m/s Mean Velocity (LVOT): 0.45 m/s LVOT Diameter 2.31 cm Left Atrium LA Volume Index (2D A2C): 32.49 ml/m2 Left Atrium Systolic Dimension: 4.59 cm Mitral Valve MV E to A Ratio: 1.15 Mitral Valve A-Wave Peak Velocity: 0.72 m/s Mitral Valve E-Wave Peak Velocity: 0.83 m/s Right Ventricle Aorta AO Root Diam: 3.96 cm Ascending Ao Diam: 4.13 cm Aortic Valve AoV Area (Peak Contreras): 1.37 cm2, 1.37 cm2 AoV Area (VTI): 1.48 cm2, 1.48 cm2 Peak Velocity(Antegrade Flow): 1.96 m/s Peak Gradient(Antegrade Flow): 15.38 mm[Hg] Mean Velocity(Antegrade Flow): 1.36 m/s Mean Gradient(Antegrade Flow): 8.45 mm[Hg] Velocity Time Integral: 45.15 cm Tricuspid Valve Peak Velocity (Regurgitant Flow): 2.21 m/s Pulmonic Valve Mean Gradient: 1.86 mm[Hg], 1.86 mm[Hg] Mean Velocity: 0.63 m/s, 0.62 m/s Peak Gradient: 3.47 mm[Hg], 3.74 mm[Hg] Right Atrium Right Atrium Systolic Pressure: 37.41 ml, 37.41 ml Dictated by: Pool Canales M.D. on 03/22/2024 at 16:52 Approved by: Pool Canales M.D. on 03/22/2024 at 16:57
== END 2024-03-22 12:52 | disposition home or self-care (01) ==
PROVIDERS: PCP Internal Medicine; Visit Provider Internal Medicine Interventional Cardiology
DX: I71.21 Aneurysm of the ascending aorta, without rupture (principal); Z95.3 Presence of xenogenic heart valve; I50.22 Chronic systolic (congestive) heart failure
CPT/HCPCS: 93306

== ENCOUNTER 2024-09-13 13:22 | Outpatient (OUT) | payer MEDICARE, MEDICAID, SELFPAY ==
[2024-09-13 15:02] LABS: Chol HDL Ratio 2.6; Cholesterol 106 mg/dL (<=200); HDL Cholesterol 41 mg/dL (40-60); LDL Cholesterol Calculated 52.2 mg/dL; Triglycerides 64 mg/dL (<=150); VLDL CHOLESTEROL 12.8 mg/dL
== END 2024-09-13 13:23 | disposition home or self-care (01) ==
LOC: LAB 13:22
DX: E78.5 Hyperlipidemia, unspecified (principal)
CPT/HCPCS: 36415; 80061

== ENCOUNTER 2024-10-14 16:41 | Emergency (ER) | payer MEDICARE, MEDICAID, SELFPAY ==
[2024-10-14] VITALS (32 sets, daily range): BP systolic 118–148; BP diastolic 49–70; PULSE 55–60; TEMP 37.1; O2SAT 92–100; BMI 28.1
--- NOTE | 2024-10-14 17:22 | ECG_ITS ---
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
--- NOTE | 2024-10-14 17:22 | CT_ITS ---
[address] [address] Patient Name: ALESSIO BURNS MRN: [id number] date: 1950 Sex: M Assigned Patient Location: ER Current Patient Location: ED.MAIN Accession/Order Number: [id number] Exam Date: 10/14/2024 18:27 Report Date: 10/14/2024 20:47 At the request of: WILMER NAIDU Procedure: CT angio chest CTA CHEST. CLINICAL HISTORY: PE COMPARISON: CT dated 04/06/2023. TECHNIQUE: CT pulmonary angiogram. Initially, limited axial non-contrast images through chest obtained to establish proper bolus timing. Subsequently, contrast enhanced axial CT images were obtained through the chest. Axial, sagittal and coronal reformatted maximum intensity projection images and / or 3D volume rendered images created. FINDINGS: PULMONARY ARTERIES: No intraluminal filling defects within the central or segmental pulmonary arteries to suggest pulmonary embolism.. Normal RV:LV ratio (<1). 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 No dissection. LUNGS: There is mild to moderate centrilobular emphysema. There is right upper lobe collapse. No airspace disease. Stable several bilateral subcentimeter pulmonary nodules. No pleural effusions.. No pneumothorax. LYMPH NODES: No enlarged mediastinal lymph nodes by CT criteria. HEART: Heart size is normal. No pericardial effusion. UPPER ABDOMEN: Images of the upper abdomen demonstrate no abnormality. MUSCULOSKELETAL: No acute osseous abnormality. CT/CT angio chest IMPRESSION: 1. No pulmonary embolism. 2. Stable 4.9 cm aneurysm of the ascending aorta. No dissection. 3. Right upper lobe collapse. No obvious obstructing mass. No airspace disease. 4. Stable several bilateral subcentimeter pulmonary nodules. Electronically authenticated by: VIOLET WHITE Date: 10/14/2024 20:47
--- NOTE | 2024-10-14 17:23 | ED.GENADUL1 ---
HPI HPI - General Adult General Chief complaint: Chest Pain Stated complaint: LUNGS HURT WHEN BREATHING, COUGH Time Seen by Provider: 10/14/24 17:02 Source: patient Mode of arrival: walk-in History of Present Illness HPI narrative: Patient is a 74-year-old male who presents to the emergency department for a 1 week history of pain in the lungs and a cough. He states he has been told he has emphysema previously. He smokes a pack a day. He has had no fevers, hemoptysis. He has a remote history of lung cancer with a lobectomy of the right lung. He is not currently being treated with chemotherapy or radiation. The patient's family member at bedside states he has a history of an aneurysm in the chest. Patient states that the pain started the day after he lifted an elderly friend who fell. He was not sure if he may have injured himself. No falls or direct injury noted. He states his pain is in the lungs, worse with deep breathing and movement. No medications taken prior to arrival. Related Data Home Medications ?Medication ?Instructions ?Recorded ?Confirmed albuterol sulfate 2.5 mg/3 mL mg 10/14/24 (0.083 %) solution for nebulization albuterol sulfate 90 mcg/actuation inhalation 10/14/24 aerosol inhaler amitriptyline 25 mg tablet mg 10/14/24 amlodipine 10 mg tablet mg 10/14/24 atorvastatin 40 mg tablet mg 10/14/24 buspirone 30 mg tablet mg 10/14/24 clopidogrel 75 mg tablet mg 10/14/24 fluticasone fur. 200 mcg-umeclid inhalation 10/14/24 62.5 mcg-vilant 25 mcg inhalat.powder (Trelegy Ellipta) furosemide 40 mg tablet mg 10/14/24 linaclotide 290 mcg capsule mcg 10/14/24 (Linzess) metoprolol succinate 100 mg mg PO 10/14/24 tablet,extended release 24 hr potassium chloride 10 mEq meq PO 10/14/24 tablet,extended release(part/cryst) spironolactone 25 mg tablet mg 10/14/24 Previous Rx's ?Medication ?Instructions ?Recorded albuterol sulfate 90 mcg/actuation 2 inh inhalation Q4H PRN shortness 10/14/24 aerosol inhaler of breath or wheezing #8.5 grams doxycycline hyclate 100 mg tablet 100 mg PO BID 10 days #20 tabs 10/14/24 hydrocodone 5 mg-acetaminophen 325 1 tab PO Q6H PRN pain #12 tabs 10/14/24 mg tablet methylprednisolone 4 mg tablets in See Rx Instructions .Route 10/14/24 a dose pack (Medrol (Gilles)) .COMPLEX #21 ea Allergies Allergy/AdvReac Type Severity Reaction Status Date / Time No Known Drug Allergies Allergy Verified 10/14/24 17:06 Opioid HPI Opioid Management Most Recent Opioid Data: No Data to Display Review of Systems ROS Constitutional Denies: fever or chills Ears, nose, mouth, and throat Denies: throat pain or nasal congestion Cardiovascular Reports: chest pain Respiratory Reports: cough and wheezing; Denies: shortness of breath Gastrointestinal Denies: nausea or vomiting Musculoskeletal Denies: back pain Integumentary/Breast Denies: rash Neurological Denies: numbness in extremities or weakness in extremities Hematologic/Lymphatic Denies: easy bruising or easy bleeding PFSH PFSH Social History Smoking status: Former smoker Little interest or pleasure in doing things: not at all Feeling down, depressed, or hopeless: not at all Exam Narrative Exam Narrative: Gen.: Awake, alert, in no distress Head: Normocephalic, atraumatic ENT: Moist mucous membranes Respiratory: No respiratory distress, wheezing and rhonchi scattered globally. Patient speaks in full sentences, chest is nontender to palpation Cardio: Regular rate and rhythm Gastrointestinal: Abdomen is soft, nondistended and nontender to palpation Extremities: Moves extremities equally Psych: Normal mood and affect Neuro: No focal neuro deficit Skin: Warm, dry, intact Constitutional Vital Signs, click to edit/add: Last Vital Signs Temp 98.8 F 10/14/24 17:06 Pulse 57 L 10/14/24 20:10 Resp 18 10/14/24 20:10 BP 132/58 10/14/24 20:00 Pulse Ox 95 10/14/24 20:10 O2 Del Method Room Air 10/14/24 17:06 Course Vital Signs Vital signs: Vital Signs Pulse Rate 59 L 10/14/24 17:05 Respiratory Rate 18 10/14/24 17:05 Pulse Oximetry 97 10/14/24 17:05 Temperature 98.8 F 10/14/24 17:06 Pulse Rate 57 L 10/14/24 20:10 Respiratory Rate 18 10/14/24 20:10 Blood Pressure 132/58 10/14/24 20:00 Pulse Oximetry 95 10/14/24 20:10 Oxygen Delivery Method Room Air 10/14/24 17:06 Medical Decision Making MDM Narrative Medical decision making narrative: Laboratory studies reviewed and noted within normal limits, CT angio of the chest was performed and the patient was found to have collapse of the right upper lobe consistent with his previous lobectomy, no evidence of PE or other acute pathology. He has a known thoracic aneurysm that measures 4.9 cm today. His history and physical is consistent with pleurisy, possible COPD exacerbation. He was given IV fluids, Solu-Medrol and albuterol with Percocet for pain. He is discharged with antibiotics, steroids, short course of analgesics. Follow-up with PCP and return to the ER if symptoms change or worsen. SHARED APC VISIT, PHYSICIAN ATTESTATION: Duxg-su-jald I performed a substantive part of the MDM during the patient?s E/M visit. I personally evaluated and examined the patient. I personally made or approved the documented management plan and acknowledge its risk of complications. Medical Records Medical records reviewed: Yes I reviewed the patient's medical records Lab Data Lab results reviewed: Yes I reviewed the patient's lab results Labs: Lab Results 10/14/24 Range/Units 17:11 WBC 11.1 H (4.0-11.0) 10^3/uL RBC 4.34 L (4.70-6.10) 10^6/uL Hgb 13.1 L (14.0-18.0) g/dL Hct 39.2 L (42.0-54.0) % MCV 90.3 (80.0-94.0) fL MCH 30.2 (25.9-34.0) pg MCHC 33.4 (29.9-35.2) g/dL RDW 12.9 (11.0-15.0) % Plt Count 384 (150-450) 10^3/uL MPV 9.7 (9.5-13.5) fL Seg Neuts % (Manual) 71.0 (43.0-75.0) Lymphocytes % (Manual) 15.0 L (20.5-60.0) % Monocytes % (Manual) 12.0 (1.7-12.0) % Eosinophils % (Manual) 2.0 (0.9-7.0) % Basophils % (Manual) 0.0 L (0.2-2.0) % Neutrophils # (Manual) 7.88 H (1.4-6.5) 10^3/uL Lymphocytes # (Manual) 1.66 (1.20-3.80) 10^3/uL Monocytes # (Manual) 1.33 H (0.30-0.80) 10^3/uL Eosinophils # (Manual) 0.22 (0.00-0.70) 10^3/uL Basophils # (Manual) 0.00 (0.00-0.10) 10^3/uL PT 11.4 (9.0-11.6) sec INR 1.08 Sodium 137 (136-145) mmol/L Potassium 3.6 (3.5-5.1) mmol/L Chloride 100 (98-107) mmol/L Carbon Dioxide 27.5 (21.0-32.0) mmol/L Anion Gap 13.1 BUN 12.0 (7.0-18.0) mg/dL Creatinine 0.91 (0.70-1.30) mg/dL Est GFR ( Amer) >60 (>=60 mL/min/1.73m^2) Est GFR (Non-Af Amer) >60 (>=60 mL/min/1.73m^2) BUN/Creatinine Ratio 13.2 Glucose 84 (74-106) mg/dL Lactate 1.3 (0.4-2.0) mmol/L Calcium 8.9 (8.5-10.1) mg/dL Total Bilirubin 0.7 (0.2-1.0) mg/dL AST 16 (15-37) U/L ALT 16 (16-63) U/L Alkaline Phosphatase 84 (46-116) U/L Troponin I High Sens 20.6 (4.0-76.1) pg/mL NT-Pro-B Natriuret Pep 1048.0 H (<=900.0) pg/mL Total Protein 8.6 H (6.4-8.2) g/dL Albumin 2.9 L (3.4-5.0) g/dL Globulin 5.7 g/dL Albumin/Globulin Ratio 0.[address] scan - chest: Attestation: I have reviewed the pertinent imaging results. Radiologist's impression: ITS Impressions Chest CTA 10/14/24 17:22 IMPRESSION: 1. No pulmonary embolism. 2. Stable 4.9 cm aneurysm of the ascending aorta. No dissection. 3. Right upper lobe collapse. No obvious obstructing mass. No airspace disease. 4. Stable several bilateral subcentimeter pulmonary nodules. Electronically authenticated by: VIOLET WHITE Date: 10/14/2024 20:47 ECG Data Attestation: I personally reviewed and interpreted this ECG as follows: (Normal sinus rhythm at a rate of 59, no acute ST elevation or ectopy. EKG reviewed by attending physician) Discharge Plan Discharge Chief Complaint: Chest Pain Clinical Impression: Chest pain, Pleurisy Patient Disposition: Home, Self-Care Time of Disposition Decision: 20:53 Condition: Good Prescriptions / Home Meds: New hydrocodone-acetaminophen 5-325 mg tablet 1 tab PO Q6H PRN (Reason: pain) Qty: 12 0RF Rx Instructions: DX: R07.9 methylprednisolone [Medrol (Gilles)] 4 mg tablets,dose pack See Rx Instructions .ROUTE .COMPLEX Qty: 21 0RF Rx Instructions: Taper as directed albuterol sulfate 90 mcg/actuation HFA aerosol inhaler 2 inh inhalation Q4H PRN (Reason: shortness of breath or wheezing) Qty: 8.5 0RF doxycycline hyclate 100 mg tablet 100 mg PO BID 10 Days Qty: 20 0RF No Action furosemide 40 mg tablet atorvastatin 40 mg tablet albuterol sulfate 2.5 mg /3 mL (0.083 %) solution for nebulization metoprolol succinate 100 mg tablet extended release 24 hr PO clopidogrel 75 mg tablet spironolactone 25 mg tablet amitriptyline 25 mg tablet amlodipine 10 mg tablet buspirone 30 mg tablet albuterol sulfate 90 mcg/actuation HFA aerosol inhaler INHALATION potassium chloride 10 mEq tablet,ER particles/crystals PO Linzess 290 mcg capsule Trelegy Ellipta 200-62.5-25 mcg blister with device INHALATION Print Language: Sierra Leonean Instructions: Pleurisy (ED), COPD (Chronic Obstructive Pulmonary Disease) (ED), Noncardiac Chest Pain (ED) Referrals: MARTINEZ,ANIA [Primary Care Provider] - 1 week
[2024-10-14 17:32] LABS: Hematocrit 39.2 % (42.0-54.0); Hemoglobin 13.1 g/dL (14.0-18.0); Mean Corpuscular HGB Conc 33.4 g/dL (29.9-35.2); Mean Corpuscular Hemoglobin 30.2 pg (25.9-34.0); Mean Corpuscular Volume 90.3 fL (80.0-94.0); Mean Platelet Volume 9.7 fL (9.5-13.5); Platelet Count 384 10^3/uL (150-450); Red Blood Count 4.34 10^6/uL (4.70-6.10); Red Cell Distribution Width 12.9 % (11.0-15.0); White Blood Count 11.1 10^3/uL (4.0-11.0)
[2024-10-14] MEDS: METHYLPREDNISOLONE SOD SUCC PF 125 MG/2 ML VIAL IVP (17:32)
[2024-10-14] MEDS: OXYCODONE HCL/ACETAMINOPHEN 5MG/325MG 1 TAB PO (17:32)
[2024-10-14] MEDS: ALBUTEROL SULFATE 2.5 MG/3 ML VIAL NEB IH (17:40)
[2024-10-14 17:45] LABS: INR 1.08; Prothrombin Time 11.4 sec (9.0-11.6)
[2024-10-14 17:49] LABS: Lactate/Lactic Acid 1.3 mmol/L (0.4-2.0)
[2024-10-14 17:50] LABS: Lymphocytes Absolute Manual 1.66 10^3/uL (1.20-3.80); Monocytes Absolute Manual 1.33 10^3/uL (0.30-0.80); Segmented Neut Absolute Manual 7.88 10^3/uL (1.4-6.5)
[2024-10-14 17:51] LABS: Eosinophils Absolute Manual 0.22 10^3/uL (0.00-0.70)
[2024-10-14 17:58] LABS: Alanine Aminotransferase 16 U/L (16-63); Albumin Globulin Ratio 0.5; Albumin Level 2.9 g/dL (3.4-5.0); Alkaline Phosphatase 84 U/L (46-116); BUN Creatinine Ratio 13.2; Bilirubin Total 0.7 mg/dL (0.2-1.0); Calcium 8.9 mg/dL (8.5-10.1); Carbon Dioxide 27.5 mmol/L (21.0-32.0); Chloride 100 mmol/L (98-107); Estimated GFR (African America >60 (>=60 mL/min/1.73m^2); Estimated GFR (Non-African Ame >60 (>=60 mL/min/1.73m^2); Globulin 5.7 g/dL; Glucose 84 mg/dL (74-106); Sodium 137 mmol/L (136-145); Total Protein 8.6 g/dL (6.4-8.2); Troponin I High Sensitivity 20.6 pg/mL (4.0-76.1)
[2024-10-14 18:47] LABS: Anion Gap 13.1; Aspartate Amino Transferase 16 U/L (15-37); Potassium 3.6 mmol/L (3.5-5.1)
== END 2024-10-14 21:09 | disposition home or self-care (01) ==
PROVIDERS: Physician Assistant; Emergency Provider Emergency Medicine
DX: R07.9 Chest pain, unspecified (principal); R09.1 Pleurisy; J43.9 Emphysema, unspecified; Z85.118 Personal history of other malignant neoplasm of bronchus and lung; Z90.2 Acquired absence of lung [part of]; Z87.891 Personal history of nicotine dependence; I71.21 Aneurysm of the ascending aorta, without rupture; R06.2 Wheezing
CPT/HCPCS: 36415; 71275; 80053; 83605; 83880; 84484; 85007; 85027; 85610; 93005; 94640; 96374; 99285; J2919; Q9967

== ENCOUNTER 2025-02-21 12:59 | Outpatient (OUT) | payer MEDICARE, MEDICAID, SELFPAY ==
--- OUTSIDE RECORDS SUMMARY | 2025-02-12 13:20 | XMS_ITS | Encounter Summary ---
Author Organization [facility] Address [address] [place] [address] Care Team Providers Care Fire Hydrant Mechanic Name Role Phone Vasques, Brittany CREDIT CARD INTERVIEWER Unavailable [phone] Tom Benton MD Primary Care Provider [phone] Reason for Visit * Reason Comments Medicare Annual Wellness Visit Initial Encounter Details Date Type Department Care Team (Late st Contact Info) Description 02/12/2025 1:20 PM EDT Office Visit [facility] [address] [place] [address] Anayeli Heaton NP [address] [place] [address] Medicare annual wellness visit, subsequent (Primary Dx); Tobacco dependence; Mild episode of recurrent major depressive disorder ; Primary hypertension ; Adenocarcinoma of right lung (HCC) Social History Tobacco Use Types Packs/Day Years Used Date Smoking Tobacco: Every Day Cigarettes Passive Smoke Exposure: Current Alcohol Use Standard Drinks/Week Comments Not Currently 0 (1 standard drink = 0.6 oz pur e alcohol) Humiliation, Afraid, Rape, and Kick questionnair e Answer Date Recorded Within the last year, have y ou been afraid of your partner or ex-partner? No 10/02/2023 Within the last year, have y ou been humiliated or emotionally abused in other ways by your partner or ex-partner? No Within the last year, have y ou been kicked, hit, slapped, or otherwise physically hurt by your partner or ex-partner? No 10/02/2023 Within the last year, have y ou been raped or forced to have any kind of sexual activity by your partner or ex-partner? No 10/02/2023 Social Connection and Isolat ion Panel [NHANES] Answer Date Recorded In a typical week, how many times do you talk on the phone with family, friends, or neighbors? More than three times a week 10/02/2023 How often do you get togethe r with friends or relatives? More than three times a week 10/02/2023 How often do you attend chur or caodaism services? Never 10/02/2023 Do you belong to any clubs o r organizations such as baptist groups, unions, fraternal or athletic groups, or school groups? No 10/02/2023 How often do you attend meet ings of the clubs or organizations you belong to? Never 10/02/2023 Are you , , di vorced, , never , or living with a partner? 10/02/2023 AUDIT-C Answer Date Recorded Q1: How often do you have a drink containing alcohol? Never 10/02/2023 Q2: How many drinks containi ng alcohol do you have on a typical day when you are drinking? Patient does not drink Q3: How often do you have si x or more drinks on one occasion? Never 10/02/2023 Overall Financial Resource Strain (CARDIA) Answe r Date Recorded How hard is it for you to pa y for the very basics like food, housing, medical care, and heating? Somewhat hard 10/02/2023 PHQ-2 Answer Date Recorded Patient Health Questionnaire-2 Score 1 02/12/2025 [facility] - Occupational Stress Questionnaire Answer Date Recorded Do you feel stress - tense, restless, nervous, or anxious, or unable to sleep at night because your mind is troubled all the time - these days? Rather much 10/02/2023 Exercise Vital Sign Answer Date Recorde d On average, how many days pe r week do you engage in moderate to strenuous exercise (like a brisk walk)? 0 days 10/02/2023 On average, how many minutes do you engage in exercise at this level? 0 min 10/02/2023 Hunger Vital Sign Answer Date Recorded Within the past 12 months, y ou worried that your food would run out before you got the money to buy more. Never true 10/02/19 24 Within the past 12 months, t he food you bought just didn't last and you didn't have money to get more. Never true 10/02/2023 PRAPARE - Transportation Answer Date Re corded In the past 12 months, has l ack of transportation kept you from medical appointments or from getting medications? Yes 09/05 In the past 12 months, has l ack of transportation kept you from meetings, work, or from getting things needed for daily living? Yes 10/02/2023 Housing Stability Vital Sign Answer Agustin e Recorded In the last 12 months, was t here a time when you were not able to pay the mortgage or rent on time? No 10/02/2023 Number of Places Lived in the Last Year Not on f ile 10/02/2023 In the last 12 months, was t here a time when you did not have a steady place to sleep or slept in a senior living (including now)? No 10/02/2023 Sex and Gender Information Value Date Recorded Sex Assigned at Not on file Legal Sex Male 2:39 PM EDT Gender Identity Not on file Sexual Orientation Not on file documented as of this encounter Last Filed Vital Signs Vital Sign Reading Time Taken Comments Blood Pressure 118/58 02/12/2025 1:24 PM EDT Pulse 47 02/12/2025 1:24 PM EDT Temperature 36.8 C (98.3 F) 02/12/2025 1:24 PM EDT Respiratory Rate 18 02/12/2025 1:24 PM EDT Oxygen Saturation 97% 02/12/2025 1:24 PM EDT Inhaled Oxygen Concentration - - Weight 81.6 kg (179 lb 12.8 oz) 02/12/2025 1:24 PM EDT Height - - Body Mass Index 29.02 09/11/2024 1:35 PM EST documented in this encounter Functional Status * Over the past 2 weeks, how often have you been bothered by any of the following problems? Question Answer Date of Assessment Author Little interest or pleasure in doing things Several days 02/12/2025 1:25 PM EDT ABHIJIT MCMANUS Feeling down, depressed, or hopeless Not at all 02/12/2025 1:25 PM EDT ABHIJIT MCMANUS Patient Health Questionnaire -2 Score 1 02/12/2025 1:25 PM EDT ABHIJIT MCMANUS * Question Answer Date of Assessment Author Trouble falling or staying asleep, or sleeping too much Nearly every day 02/12/2025 1:25 PM EDT ABHIJIT MCMANUS Feeling tired or having little energy Several days 02/12/2025 1:25 PM EDT ABHIJIT MCMANUS Poor appetite or overeating Not at all 02/12/2025 1:25 PM EDT ABHIJIT MCMANUS A Feeling bad about yourself - or that you are a failure or have let yourself or your family down Not at all 02/12/2025 1:25 PM EDT ABHIJIT MCMANUS Trouble concentrating on things, such as reading the newspaper or watching television Several days 02/12/2025 1:25 PM EDT ABHIJIT MCMANUS A Moving or speaking so slowly that other people could have noticed? Or the opposite - being so fidgety or restless that you have been moving around a lot more than usual. Several days 02/12/2025 1:25 PM EDT ABHIJIT MCMANUS Thoughts that you would be better off or hurting yourself in some way Not at all 02/12/2025 1:25 PM EDT GUSTAVO MCMANUS Patient Health Questionnaire-9 Score 7 02/12/2025 1:25 PM EDT ESTEVAN MCMANUS documented as of this encounter Patient Instructions * Patient Instructions* Anayeli Heaton NP - 02/12/2025 1:20 PM EDT Increase sertraline to 100mg daily Take medication only as directed. This medication will take approximately 4-6 weeks to become effective. If any suicidal thoughts, thoughts of hurting others, or hallucinations contact the office or proceed to the Emergency Room for mental health evaluation. Medication may cause dry mouth, dizziness, and in some cases worsening in depression symptoms. Please contact the office if these occur. documented in this encounter Progress Notes * GAYATRI MCMANUS - 02/12/2025 1:20 PM EDT Zoloft 50- does not feel like it helps him * Anayeli Heaton NP - 02/12/2025 1:20 PM EDT Images from the original note were not included. Doc Villagran is a 74 y.o. 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 [facility] HCPOA/Living Will:no Concerns: Sertraline for depression , has not noted much different not worse just not better no new SUBJECTIVE: MEDICATIONS: Current Outpatient Medications Medication Instructions albuterol HFA 90 mcg/act inhaler 2 puffs, Inhalation, Every 6 hours PRN albuterol 2.5 mg, Nebulization, Every 4 hours PRN amLODIPine (NORVASC) 10 mg, Oral, Daily aspirin 81 mg, Every 24 hours atorvastatin (LIPITOR) 40 mg, Oral, Nightly, TAKE 1 TABLET BY MOUTH AT BEDTIME busPIRone (BUSPAR) 30 mg, Oral, 2 times daily clopidogrel (PLAVIX) 75 mg, Oral, Every morning Cobalamin Combinations (B-12) 100-5000 MCG sublingual tablet 1 tablet, Daily RT Entresto 97-103 MG tablet 1 tablet, 2 times daily Taworkklxiq-Pxfnnbnap-Crxrdn (Trelegy Ellipta) 200-62.5-25 MCG/ACT aerosol powder 1 puff, Inhalation, Daily furosemide (LASIX) 40 mg, Oral, Daily Linzess 290 mcg, Daily metoprolol succinate XL (Toprol-XL) 100 MG 24 hr tablet 1 tablet, Daily nitroglycerin (NITROSTAT) 0.4 mg, Every 5 min PRN potassium chloride CR (Klor-Con M10) 10 MEQ ER tablet 10 mEq, Oral, Daily sertraline (ZOLOFT) 50 mg, Oral, Daily sildenafil (VIAGRA) 50 mg, Oral, As needed spironolactone (ALDACTONE) 12.5 mg, Oral, Every morning ALLERGIES: No Known Allergies REVIEW OF SYMPTOMS: Review of Systems Constitutional: Negative for activity change, appetite change and unexpected weight change. HENT: Negative for ear pain, nosebleeds, sneezing, trouble swallowing and voice change. Eyes: Negative for pain, discharge and visual disturbance. Respiratory: Positive for shortness of breath. Negative for apnea, chest tightness and wheezing. Cardiovascular: Negative for chest pain and leg swelling. Gastrointestinal: Negative for abdominal distention, blood in stool, constipation and diarrhea. Genitourinary: Negative for decreased urine volume, difficulty urinating, dysuria and hematuria. Skin: Negative for color change. Neurological: Negative for dizziness, tremors and seizures. Psychiatric/Behavioral: Negative for agitation, decreased concentration, hallucinations, self-injury and suicidal ideas. The patient is nervous/anxious. Depression Hematological: Negative for adenopathy. Does not bruise/bleed easily. Endocrine: Negative for cold intolerance, heat intolerance, polydipsia and polyuria. Allergic/Immunologic: Negative for environmental allergies and food allergies. PAST MEDICAL HISTORY Past Medical History: Diagnosis Date Adenocarcinoma of lung, right (CMS/HCC) Adenocarcinoma of lung - early stage s/p resection Patient is being worked up for recurrent of his lung cancer. New lesions - metabolically active - too small to biopsy. Repeat CT this month and thena follow up appt. Likely recurrent of lung ca that was previously treated successfully. Continues to smoke and has not made any attempt to quite. Aneurysm, thoracic aortic (CMS/HCC) 4.8 cm on ECHO. At low risk for fall CAD (coronary artery disease) (CMS/HCC) s/p CABG 2020 On ASA, Plavix for it. Chest pain, atypical Reports left sided sharp chest pain, non exertional, lasts for 20 seconds at most. No associated symptoms. Going on for few weeks. Episodes happen every other day. And does not experience pain more than twice a a day. Chest pain, cardiac Sharp left sided pain intermittently, resolves on its own within a few seconds. Congestive heart failure with cardiomyopathy ([facility]) EF improved to 40%. Euvolemic on exam COPD (chronic obstructive pulmonary disease) (CMS/[facility]) Mod-severe obstructive lung dx. Underlying emphysema, decreased lung capacity due to lobectomy fromlung mass Still smoking. Has had multiple discussions about smoking cessation and still not quite ready to quit. Has tried Symbicort, incruse, advair. Continues to have SOB, frequent use of rescue inhaler. Uses it a few times per day COPD exacerbation ([facility]) Poorly controlled COPD, experiences ZHAO at baseline. Current smoker - has made no attempt to quit. Currently on Trelegy. Uses albuterol 3-4 times/day at baseline. Appears to be in mild COPD exacerbation today with mild wheezing, SOB, coarse breath sounds. Depression ([facility]) Patient is currently on Buspirone. Trazodone was discontinued due to adverse effects. [place] ZHAO (dyspnea on exertion) Was seen last appt for fatigue, tiredness x 2 weeks with worsening SOB. No fever, increased cough. Labs ordered - no sig change CXR showed possible b/l reticular/nodular densities throughout lung [place]. Was treated for COPD exacerbation along with Possible PNA with oral Doxycycline Erectile dysfunction Head injury Plate in Head Heart problem History of blood transfusion 1983 HLD (hyperlipidemia) [place] Hospital discharge follow-up Recent admission for COPD/CHF Doing well. Exp wheeze noted on exam; smoked right before appt. HTN (hypertension) [place] Above goal in office but patient reports at home it was on average less than 140. Needs better BP control with hx HFrEF, TAA Hypokalemia Recent BMP shows normal potassium Influenza vaccination declined Insomnia Has used Ambien/Trazodone with no sig improvement. Difficulty staying asleep. Was started on amitriptyline and he reports mild improvement with its use Lung mass s/p surgery last month Lung trouble NSTEMI (non-ST elevated myocardial infarction) [place] NSTEMI; presented to our office for regular follow up and reported intermittent exertional CP, sob,was sent to ED for further evaluation where he was found to have sig elevation in HStrop. Patient was transferred to [facility] for further care and possible LHC Currently asymptomatic. Denies CP, SOB and has no active complaints to offer Shortness of breath on exertion Patient was admitted to the hospital for ZHAO, found to have COPD exacerbation. Discharged on systemic steroids. GOLD D; mod obstructive dx on PFTs. ATT- normal Smoking Hx of lung cancer, CAD and thoracic aortic aneurysm. Patient has been offered help, counseled many times in the past. Continues to smoke daily, 1 PPD. Tobacco user Counselled in detail on smoking cessation. Educated on potential risks associated with smoking including COPD, lung and other cancers. Discussed treatment options including counseling, nicotine replacement therapy and medications. Patient was receptive to counseling and verbalized understanding. Past Surgical History: Procedure Laterality Date BRAIN SURGERY Plate in Head Face Restructure CORONARY ARTERY BYPASS GRAFT 06/08/[address] ANGIOGRAM HEART CORONARY 08/19/2022 CT ANGIOGRAM TAVR 08/19/2022 FACIAL RECONSTRUCTION SURGERY LUNG BIOPSY family history includes Cancer in his father and sister; Diabetes in his mother and sister; Heart disease in his father, mother, and sister; Hypertension in his father, mother, and sister. OBJECTIVE: Visit Vitals BP 118/58 (BP Location: Left arm, Patient Position: Sitting, BP Cuff Size: Adult long) Pulse (!) 47 Temp 98.3 ??F (Temporal) Resp 18 Wt 179 lb 12.8 oz SpO2 97% BMI 29.02 kg/m?? Smoking Status Every Day BSA 1.95 m?? Physical Exam Vitals and nursing note reviewed. Constitutional: Appearance: Normal appearance. HENT: Head: Normocephalic. Right Ear: External ear normal. Left Ear: External ear normal. Nose: Nose normal. Mouth/Throat: Mouth: Mucous membranes are moist. Pharynx: Oropharynx is clear. Eyes: Extraocular Movements: Extraocular movements intact. Conjunctiva/sclera: Conjunctivae normal. Neck: Vascular: No carotid bruit. Cardiovascular: Rate and Rhythm: Normal rate and regular rhythm. Pulses: Normal pulses. Heart sounds: Normal heart sounds. No murmur heard. Pulmonary: Effort: Pulmonary effort is normal. Breath sounds: Normal breath sounds. Abdominal: General: Bowel sounds are normal. Palpations: Abdomen is soft. Musculoskeletal: Cervical back: Neck supple. Right lower leg: No edema. Left lower leg: No edema. Skin: General: Skin is warm and dry. Capillary Refill: Capillary refill takes 2 to 3 seconds. Neurological: General: No focal deficit present. Mental Status: He is alert. Psychiatric: Mood and Affect: Mood normal. Behavior: Behavior normal. Thought Content: Thought content normal. Judgment: Judgment normal. ASSESSMENT AND PLAN: No follow-ups on file. Problem List Items Addressed This Visit Depression (CMS/HCC) Current meds: buspar, sertaline Increase dose to 100mg Fu in 8 weeks HTN (hypertension) (CMS/HCC) Please check blood pressure daily and record DASH diet Limit caffeine Take medication as directed Contact office if chest pain, pressure, dizziness, shortness of breath, swelling legs Recommend slow position changes Current meds:diuretic, amlodipine Tobacco dependence The patient has been advised of the risks of continued smoking: stroke, MA, all forms of cancer, lung disease, and . Options for quitting smoking include: cold turkey, hypnosis, acupuncture, nicotine replacement meds(gum, lozenges, and patches), Buproprion, and Varenicline. At this time pt is encouraged to evaluate their goals for wanting to quit smoking, and reach out toprovider when ready to start this process Adenocarcinoma of right lung (CMS/HCC) Continue fu w oncology Medicare annual wellness visit, subsequent - Primary Reviewed Ht/Wt/BMI Recommend eye exam yearly Recommend dental exams twice a year Balance work/leisure activities Exercises is recommended most days of the week (appropriate as chronic conditions allow) Follow up yearly and prn * Anayeli Heaton NP - 02/12/2025 6:49 AM EDTAssociated Problem(s): Adenocarcinoma of right lung (HCC) Continue fu w oncology * Anayeli Heaton NP - 02/12/2025 6:49 AM EDTAssociated Problem(s): HTN (hypertension) Please check blood pressure daily and record DASH diet Limit caffeine Take medication as directed Contact office if chest pain, pressure, dizziness, shortness of breath, swelling legs Recommend slow position changes Current meds:diuretic, amlodipine * Anayeli Heaton NP - 02/12/2025 6:48 AM EDTAssociated Problem(s): Depression Current meds: buspar, sertaline Increase dose to 100mg Fu in 8 weeks * Anayeli Heaton NP - 02/12/2025 6:48 AM EDTAssociated Problem(s): Tobacco dependence The patient has been advised of the risks of continued smoking: stroke, MA, all forms of cancer, lung disease, and . Options for quitting smoking include: cold turkey, hypnosis, acupuncture, nicotine replacement meds(gum, lozenges, and patches), Buproprion, and Varenicline. At this time pt is encouraged to evaluate their goals for wanting to quit smoking, and reach out toprovider when ready to start this process * Anayeli Heaton NP - 02/12/2025 6:48 AM EDTAssociated Problem(s): Medicare annual wellness visit, subsequent Reviewed Ht/Wt/BMI Recommend eye exam yearly Recommend dental exams twice a year Balance work/leisure activities Exercises is recommended most days of the week (appropriate as chronic conditions allow) Follow up yearly and prn documented in this encounter Plan of Treatment Upcoming Encounters Date Type Department Care Team (Late st Contact Info) Description 04/02/2025 1:20 PM EDT Office Visit [facility] [address] [place] [address] Anayeli Heaton NP [address] [place] [id number] 02/18/2026 4:30 PM EDT Office Visit [facility] [address] [place] [address] Anayeli Heaton NP [address] [place] [address] documented as of this encounter Visit Diagnoses Diagnosis Medicare annual wellness visit, subsequent- Primary Tobacco dependence Tobacco use disorder Mild episode of recurrent major depressive disorder Primary hypertension Unspecified essential hypertension Adenocarcinoma of right lung (HCC) documented in this encounter Additional Health Concerns Assessment Noted Time PHQ-9 Depression Total Score: 7 02/13/20 25 1:25 PM EDT documented as of this encounter Care Teams Fire Hydrant Mechanic Relationship Specialty Start Date End Date Tom Benton MD [address] [place] [id number] PCP - General Family Medicine 07/04/24 Margaret Vasques NP Nurse Practitioner Family Medicine 04/16/24 documented as of this encounter
--- OUTSIDE RECORDS SUMMARY | 2025-02-20 11:57 | XMS_ITS | Encounter Summary ---
Author Organization [facility] tem Address [id number] [address] [place] [address] Care Team Providers Care Carbide Tool Maker Name Role Phone Shaikh ADILENE Etienne Primary Care Provider [phone] Encounter Details Date Type Department Care Team (Latest Contact Info) Description 02/20/2025 11:57 AM EDT - 02/20/2025 11:59 PM EDT Hospital Encounter [facility] - Pulmonary Function [address] [place] [phone] Maliha Lentz M, DO [address] [id number] Chronic obstructive pulmonary disease, unspecified COPD type ([facility]) Discharge Disposition: Home Social History Tobacco Use Types Packs/Day Years Used Date Smoking Tobacco: Every Day Cigarettes Smokeless Tobacco: Never Alcohol Use Standard Drinks/Week Comments Not Currently 0 (1 standard drink = 0.6 oz pur e alcohol) Childcare Answer Date Recorded Childcare Unknown 07/14/2020 Employment Answer Date Recorded Employment Unknown 07/14/2020 Hunger Screening Answer Date Recorded Within the past 12 months we worried whether our food would run out before we got money to buy more. Never True 04/27/2023 Within the past 12 months th e food we bought just didn't last and we didn't have money to get more. Never True 04/27/2023 Purpose - Life Answer Date Recorded Purpose and direction in life Unknown Sex and Gender Information Value Date Recorded Sex Assigned at Not on file Legal Sex Male 7:11 PM EDT Gender Identity Not on file Sexual Orientation Not on file documented as of this encounter Medications at Time of Discharge albuterol (ACCUNEB) 1.25 mg/3 mL nebulizer solution Inhale 3 mL (1.25 mg total) every 6 (six) hours as needed. 10/29/2021 albuterol (PROVENTIL HFA;VENTOLIN HFA) 90 mcg/actuation inhaler Inhale 2 puffs every 4 (four) hours as needed. amLODIPine (NORVASC) 10 mg tablet Take 1 tablet (10 mg total) by mouth in the morning. aspirin 81 mg Take 1 tablet (81 mg total) by mouth daily. atorvastatin (LIPITOR) 40 mg tablet Take 1 tablet (40 mg total) by mouth nightly. 05/11/2022 busPIRone (BUSPAR) 30 mg tablet Take 1 tablet (30 mg total) by mouth in the morning and at bedtime. clopidogreL (PLAVIX) 75 mg tablet Take 1 tablet (75 mg total) by mouth in the evening. fluticasone-umecl idin-vilanter (TRELEGY ELLIPTA) 200-62.5-25 mcg blister with deviceIndications :Chronic obstructive pulmonary disease, unspecified COPD type ([facility]) INHALE 1 PUFF BY MOUTH DAILY 60 each 11 09/13/2024 furosemide (LASIX) 40 mg tablet Take 1 tablet (40 mg total) by mouth daily. metoprolol succinate XL (TOPROL XL) 50 mg 24 hr tablet Take 1 tablet (50 mg total) by mouth in the evening. nitroglycerin (NITROSTAT) 0.4 MG SL tablet DISSOLVE 1 TABLET UNDER THE TONGUE NEEDED FOR CHEST PAIN- MAY REPEAT EVERY 5 MINUTES IF NEEDED ( MAX 3 DOSES.- IF NO RELIEF CALL 911) potassium chloride (KLOR-CON M 20) 20 MEQ CR tablet Take 1 tablet (20 mEq total) by mouth in the morning. 10/25/2021 sacubitriL-valsar hauser (ENTRESTO) 97-103 mg tablet Take 1 tablet by mouth in the morning and at bedtime. sertraline (ZOLOFT) 50 mg tablet Take 1 tablet (50 mg total) by mouth in the morning. documented as of this encounter Plan of Treatment Upcoming Encounters Date Type Department Care Team (Late st Contact Info) Description 08/07/2025 11:45 AM EST Office Visit [facility] Pulmonary/Sleep Medicine [address] [place] [address] Maliha Lentz, DO [address] [address] Pending Results Name Type Priority Associated Diagnoses Date /Time Pulmonary function test Spirometry (Flow Volume Loop) pre/post short acting bronchodilator PFT Routine Chronic obstructive pulmonary disease, unspecified COPD type (CMS-HCC) 02/20/2025 12:14 PM EDT Scheduled Orders Name Type Priority Associated Diagnoses Orde r Schedule Pulmonary function test Spirometry (Flow Volume Loop) pre/post short acting bronchodilator PFT Routine Chronic obstructive pulmonary disease, unspecified COPD type (CMS-HCC) Once for 1 Occurrences starting 02/20/2025 until 02/20/2025 documented as of this encounter Visit Diagnoses Diagnosis Chronic obstructive pulmonary disease, unspecified COPD type (CMS-HCC) documented in this encounter Administered Medications Inactive Administered Medications - up to 3 most recent administrations Medication Order MAR Action Action Date Dose Rate Site albuterol (PROVENTIL,VENTOLIN) nebulizer solution 2.5 mg 2.5 mg, nebulization, Once, On Jazz 02/20/25 at 1200, For 1 dose, Hospital Outpatient Diagnostic Meds, To be given with PFT Testing only, Implement INPATIENT/ED Bronchodilator Clinical Practice Guidelines? NoIndications:Chronic obstructive pulmonary disease, unspecified COPD type ([facility]) Given 02/20/2025 12:06 PM EDT 2.5 mg documented in this encounter Care Teams Carbide Tool Maker Relationship Specialty Start Date End Date Shaikh Etienne MD PCP - General Internal Medicine 08/19/22 documented as of this encounter
--- OUTSIDE RECORDS SUMMARY | 2025-02-20 14:45 | XMS_ITS | Encounter Summary ---
Author Organization [facility] Address [id number] [address] [place] [address] Care Team Providers Care Elevator Tender Name Role Phone Shaikh ADILENE Etienne Primary Care Provider [phone] Reason for Visit * Reason Comments Follow-up PFT: 02/18/2025 COPD Encounter Details Date Type Department Care Team (Late st Contact Info) Description 02/20/2025 2:45 PM EDT Office Visit [facility] Pulmonary/Sleep Medicine [address] [place] [phone] Maliha Lentz, DO [address] [phone] Chronic obstructive pulmonary disease, unspecified COPD type ([facility]) (Primary Dx); Lung nodules; Smoker Social History Tobacco Use Types Packs/Day Years [...] Sign Reading Time Taken Comments Blood Pressure 131/67 02/20/2025 2:53 PM EDT Pulse 50 02/20/2025 2:53 PM EDT Temperature - - Respiratory Rate - - Oxygen Saturation 97% 02/20/2025 2:53 PM EDT Inhaled Oxygen Concentration - - Weight 81.2 kg (179 lb) 02/20/2025 2:53 PM EDT Height 167.6 cm (5' 6 ) 02/20/2025 2:53 PM EDT Body Mass Index 28.89 02/20/2025 2:53 PM EDT documented in this encounter Plan of Treatment Upcoming Encounters Date Type Department Care Team (Late st Contact Info) Description 08/07/2025 11:45 AM EST Office Visit [facility] Pulmonary/Sleep Medicine [address] [place] [address] Maliha Lentz DO [address] [address] documented as of this encounter Visit Diagnoses Diagnosis Chronic obstructive pulmonary disease, unspecified COPD type ([facility])- Primary Lung nodules Other diseases of lung, not elsewhere classified Smoker Tobacco use disorder documented in this encounter Care Teams Elevator Tender Relationship Specialty Start Date End Date Shaikh Etienne MD PCP - General Internal Medicine 08/19/22 documented as of this encounter
--- NOTE | 2025-02-21 13:00 | CA_ITS ---
Patient Name: ALESSIO BURNS MR#: [id number] : 1950 Exam Date: 02/21/2025 Ordering Doctor: DR SYDNIE AMBROSIO M.D. ECHOCARDIOGRAM REPORT PROCEDURE: CA ECHO DOPPLER COMPLETE INDICATIONS: Aortic aneurysm, CABGx3, aortic valve replacement, hypertension COMPARISON: None. DESCRIPTION: COMPLETE ECHOCARDIOGRAM Real-time transthoracic echocardiography with 2D, M-mode, spectral and color flow Doppler performed. QUALITY: Technical quality was good. LEFT VENTRICLE: Normal chamber size. Severe concentric left ventricular hypertrophy. Normal systolic function. Estimated left ventricular ejection fraction is 60%. LV EF: Normal left ventricular ejection fraction, (>55%). DIASTOLIC: Diastolic function is indeterminate. ATRIAL SEPTUM: Visually appears intact. LEFT ATRIUM: Normal chamber size. RIGHT ATRIUM: Normal chamber size. RIGHT VENTRICLE: Normal chamber size. Normal right ventricular systolic function. TRICUSPID VALVE: Normal mobility and thickness. No stenosis with mild regurgitation. No evidence of pulmonary hypertension. RVSP 28 mmHg MITRAL VALVE: Normal mobility and thickness. No evidence of mitral valve stenosis. There is no mitral annular calcification. AORTIC VALVE: Bio-Prosthetic valve appears well seated in the aortic position with normal doppler flow. Mean systolic gradient is 9 mmHg. No aortic regurgitation. AORTIC ROOT: Aortic root (4.3 cm) and ascending aorta (4.1 cm) are mildly to moderately dilated. PULMONIC VALVE: Normal thickness and mobility. No stenosis. No regurgitation. PERICARDIUM: No evidence of pericardial effusion. IVC: Collapses with inspiration. IVC is normal in size. PLEURA: CONCLUSION: 1. Severe concentric left ventricular hypertrophy with normal systolic function. Estimated LVEF is 60%. 2. Normal right ventricular size and systolic function. 3. Bioprosthetic aortic valve is well-seated in the aortic position with normal Doppler flows. No aortic regurgitation. 4. Mildly to moderately dilated aortic root and ascending aorta. 5. Normal right-sided pressures. Adult Echocardiography Procedure Report Left Ventricle LVEDD (3.7 - 5.6 cm): 3.85 cm LVESD (2.2 - 4.0 cm): 2.67 cm LVIVS thickness (0.6 - 1.2 cm): 1.74 cm LVPW thickness (0.5 - 1.0 cm): 1.38 cm e': 0.14 m/s E - e': 4.98 LVOT Max Gradient: 1.89 mm[Hg] LVOT Area (cm2): 0.69 m/s Peak Velocity (LVOT): 0.69 m/s Mean Velocity (LVOT): 0.48 m/s LVOT Diameter 2.67 cm Left Atrium LA Volume Index (2D A2C): 28.34 ml/m2 Left Atrium Systolic Dimension: 3.96 cm Mitral Valve MV E to A Ratio: 0.90 Mitral Valve A-Wave Peak Velocity: 0.76 m/s Mitral Valve E-Wave Peak Velocity: 0.69 m/s Right Ventricle Aorta AO Root Diam: 4.30 cm Ascending Ao Diam: 4.09 cm Aortic Valve AoV Area (Peak Contreras): 1.87 cm2, 1.87 cm2 AoV Area (VTI): 2.18 cm2, 2.18 cm2 Peak Velocity(Antegrade Flow): 2.06 m/s Peak Gradient(Antegrade Flow): 16.99 mm[Hg] Mean Velocity(Antegrade Flow): 1.40 m/s Mean Gradient(Antegrade Flow): 9.14 mm[Hg] Velocity Time Integral: 49.28 cm Tricuspid Valve Peak Velocity (Regurgitant Flow): 2.49 m/s, 2.50 m/s Pulmonic Valve Peak Velocity: 1.17 m/s Peak Gradient: 5.52 mm[Hg] Right Atrium Right Atrium Systolic Pressure: 50.75 ml, 50.75 ml Dictated by: Sydnie Ambrosio M.D. on 02/21/2025 at 18:40 Approved by: Sydnie Ambrosio M.D. on 02/21/2025 at 18:44
--- OUTSIDE RECORDS SUMMARY | 2025-02-21 13:02 | XMS_ITS | Encounter Summary ---
Author Organization [facility] Address [address] [place] [address] Care Team Providers Care Orthotics Prosthetics Technician Name Role Phone Shaikh ADILENE Etienne Primary Care Provider [phone] Shaikh ADILENE Etienne Primary Care Provider [phone] Tom Benton MD Primary Care Provider [phone] Margaret Vasques HAND SALTER Unavailable [phone] Unallocated, Noms Provider Primary Care Provi alia Tom Benton MD Primary Care Provider [phone] Reason for Visit * Reason Comments Med Refill Encounter Details Date Type Department Care Team (Late st Contact Info) Description 09/21/2023 Refill [facility] [address] [place] [address] Shaikh Etienne MD [address] [place] [phone] Insomnia, unspecified; 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 documented in this encounter Care Teams Orthotics Prosthetics Technician Relationship Specialty Start Date End Date Shaikh Etienne MD PCP - General Internal Medicine 03/22/23 09/21/23 Shaikh Etienne MD [address] [place] [phone] PCP - General Internal Medicine 09/22/23 04/15/24 Tom Benton MD [address] [place] [phone] PCP - General Family Medicine 04/16/24 06/24/24 Unallocated, Kacey Canada MD [address] [place] [address] PCP - General Family Medicine 06/25/24 07/03/24 Tom Benton MD [address] [place] [phone] PCP - General Family Medicine 07/04/24 Margaret Vasques NP [address] [place] [phone] Nurse Practitioner Family Medicine 04/16/24 documented as of this encounter
--- OUTSIDE RECORDS SUMMARY | 2025-02-21 13:02 | XMS_ITS | Clinical Summary ---
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 Acti ve atorvastatin (LIPITOR) 40 mg tablet atorvastatin 40 mg tablet TAKE 1 TABLET BY MOUTH AT BEDTIME Active furosemide (LASIX) 40 mg tablet furosemide 40 mg tablet TAKE 1 TABLET BY MOUTH DAILY Active metoprolol succinate ER (TOPROL XL) 100 mg Take 100 mg by mouth once daily. Active nitroglycerin sublingual (NITROQUICK) 0.4 mg SL tablet nitroglycerin 0.4 mg sublingual tablet DISSOLVE 1 TABLET UNDER THE TONGUE NEEDED FOR CHEST PAIN- MAY REPEAT EVERY 5 MINUTES IF NEEDED ( MAX 3 DOSES.- IF NO RELIEF CALL 791) Active sacubitril-vals twan (ENTRESTO) 97-103 mg tablet Entresto 97 mg-103 mg tablet TAKE 1 TABLET BY MOUTH TWICE DAILY Active sildenafil (VIAGRA) 25 mg tablet sildenafil 25 mg tablet TAKE 1 TABLET BY MOUTH 30 MINUTES BEFORE sexual activity Active busPIRone (BUSPAR) 15 mg tablet Take 30 mg by mouth two times a day. 05/28/20 21 Active potassium chloride ER (K-DUR, KLOR-CON) 20 mEq tablet Take 10 mEq by mouth once daily. 10/25/19 22 Active amLODIPine (NORVASC) 10 mg tablet Take 10 mg by mouth once daily. 08/12/20 21 Active Nebulizer and Compressor For NebIndications: Cancer of trachea, bronchus, and lung (HCC),Panlobula r emphysema (HCC) 1 Each three times daily as needed. 1 Each 10/29/19 22 Active Albuterol Sulfate 1.25 mg/3 mL nebulizer solutionIndicat ions:Cancer of trachea, bronchus, and lung (HCC),Panlobula r emphysema (HCC) Use 1 Ampule via nebulizer every 6 hours as needed for wheezing/shortness of breath. 120 Ampule 2 10/29/19 22 Active TRELEGY ELLIPTA 200-62.5-25 mcg inhalation powder INHALE 1 PUFF BY MOUTH DAILY 09/09/19 23 Active spironolactone (ALDACTONE) 25 mg tablet 01/03/20 23 Active clopidogrel (PLAVIX) 75 mg tablet Take 1 tablet by mouth once daily for 15 days. 15 tablet 03/03/20 23 Active linaCLOtide (LINZESS) 290 mcg capsule 10/27/19 24 Active enteric contrast (will be provided with radiology test)Indication s:Malignant neoplasm of upper lobe of right lung (HCC) For CT CHESTABD/PEL W IVCON Routine order Administer, As Directed One Time Only, via Oral, Rectal, both Oral and Rectal, Enteric Tube, Stoma or Indwelling Catheter, Enteric Contrast as designated per enteric contrast guidelines 1 Each 11/17/19 24 Active amitriptyline (ELAVIL) 50 mg tablet Take 50 mg by mouth daily at bedtime. 02/01/20 24 Active enteric contrast (will be provided with radiology test)Indication s:Malignant neoplasm of unspecified part of unspecified bronchus or lung (HCC),Abnormal finding on GI tract imaging For CT CHESTABD/PEL W IVCON Routine order Administer, As Directed One Time Only, via Oral, Rectal, both Oral and Rectal, Enteric Tube, Stoma or Indwelling Catheter, Enteric Contrast as designated per enteric contrast guidelines 1 Each 04/18/20 24 Active iv contrast (will be provided with radiology test)Indication s:Malignant neoplasm of upper lobe of right lung [...] CT contrast administration guidelines link. 1 Each 09/12/19 25 Active enteric contrast (will be provided with radiology test)Indication s:Malignant neoplasm of upper lobe of right lung (HCC) For CT CHESTABD/PEL W IVCON Routine order Administer, As Directed One Time Only, via Oral, Rectal, both Oral and Rectal, Enteric Tube, Stoma or Indwelling Catheter, Enteric Contrast as designated per enteric contrast guidelines 1 Each 09/12/19 25 Active iv contrast (will be provided with radiology test)Indication s:Malignant neoplasm of upper lobe of right lung (HCC),Non-casea ting granuloma,Abnor mal finding on GI tract imaging,Anemia, unspecified type CT Chest ABD/PEL-Inject, intravenously, once for 1 [...] CT contrast administration guidelines link. 1 Each 11/08/19 25 Active enteric contrast (will be provided with radiology test)Indication s:Malignant neoplasm of upper lobe of right lung (HCC),Non-casea ting granuloma,Abnor mal finding on GI tract imaging,Anemia, unspecified type For CT CHESTABD/PEL W IVCON Routine order Administer, As Directed One Time Only, via Oral, Rectal, both Oral and Rectal, Enteric Tube, Stoma or Indwelling Catheter, Enteric Contrast as designated per enteric contrast guidelines 1 Each 11/08/19 25 Active sertraline (ZOLOFT) 50 mg tablet Take 50 mg by mouth once daily. Active Cyanocobalamin- Cobamamide (B-12 PLUS) 5,000-100 mcg sublIndications :Malignant neoplasm of upper lobe of right lung (HCC),Non-casea ting granuloma,Lung nodules,Tobacco use disorder,Megalo blastic anemia due to vitamin B12 deficiency Dissolve 1 tablet under the tongue once daily. 90 tablet 1 02/07/20 25 025 Active iv contrast (will be provided with radiology test)Indication s:Malignant neoplasm of upper lobe of right lung (HCC) CT Chest W -Inject, intravenously, [...] according to line specific nursing protocol in theCT contrast administration guidelines link. 1 each 02/07/20 25 025 Active Problems Problem Noted Date Diagnosed Date Panlobular emphysema 07/21/2022 Coronary arteriosclerosis 01/05/2022 Assessment & Plan (01/05/2022 11:23 AM EDT): Assessment: follows up with cardiology, daily aspirin and plavix Chronic diastolic CHF (congestive heart failure) 01/05/2022 Assessment & Plan (01/05/2022 11:22 AM EDT): Assessment: follows up with cardiology, stable and asymptomatic. daily lasix Aortic valve stenosis 01/05/2022 Assessment & Plan (01/05/2022 11:21 AM EDT): Assessment: follows up with cardiology, stable and per last ECHO 10/2021. Asymptomatic Aneurysm of thoracic aorta 01/05/2022 Assessment & Plan (01/05/2022 11:21 AM EDT): Assessment: follows up with cardiology, stable and unchanged per last ECHO 10/2021. Asymptomatic Acute thrombus of left ventricle 01/05/2022 Aortic valve replaced 01/05/2022 Assessment & Plan (01/05/2022 11:21 AM EDT): Assessment: s/p 06/2020 Carotid artery stenosis 01/05/2022 Lung nodules 01/05/2022 Hx of CABG 01/05/2022 Assessment & Plan (01/05/2022 11:23 AM EDT): Assessment: stable. Follows up with cardiology HTN (hypertension) 01/05/2022 Assessment & Plan (01/05/2022 11:24 AM EDT): Assessment: managed with med, stable 01/05/2022 127/59 10/29/2021 119/56 Smoker 01/05/2022 Assessment & Plan (01/05/2022 11:25 AM EDT): Assessment: 1ppd for 40 years COPD (chronic obstructive pulmonary disease) 12/2021 Assessment & Plan (01/05/2022 11:26 AM EDT): Assessment: managed with inhalers, stable HLD (hyperlipidemia) 01/05/2022 Assessment & Plan (01/05/2022 11:26 AM EDT): Assessment: managed with med, stable Depression 01/05/2022 Assessment & Plan (01/05/2022 11:29 AM EDT): Assessment: managed with med, stable Malignant neoplasm of overlapping sites of right lung 10/29/2021 Assessment & Plan (01/05/2022 11:24 AM EDT): Assessment: s/p lobectomy September 2020 Follows up with PCP Encounters Date Type Department Care Team Description 02/06/2025 1:00 PM EDT Visit (SP) Office Hematology/Oncology [address] [place] [address] [place] [address] Jaya Frank MD Malignant neoplasm of upper lobe of right lung (HCC) (Primary Dx); Non-caseating granuloma; Lung nodules; Tobacco use disorder; Megaloblastic anemia due to vitamin B12 deficiency; Malignant neoplasm of unspecified part of unspecified bronchus or lung (HCC); Nicotine dependence, cigarettes, uncomplicated; Other vitamin B12 deficiency anemia; Encounter for follow-up examination after completed treatment for conditions other than malignant neoplasm; Generalized abdominal pain 02/06/2025 Travel 01/30/2025 1:28 PM EDT - 01/30/2025 11:59 PM EDT Hospital Encounter Radiology Pet CT [address] [place] [address] [place] [address] Malignant neoplasm of upper lobe of right lung (HCC) [C34.11] Discharge Disposition: Home from Last 3 Months Family History Medical History Relation Comments Cancer Father Heart disease Father Hypertension Father Diabetes Mother Heart disease Mother Hypertension Mother Cancer Sister Diabetes Sister Heart disease Sister Hypertension Sister Relation Status Comments Father Mother Sister Social History Tobacco Use Types Packs/Day Years Used Date Smoking Tobacco: Every Day Cigarettes 1 48 Passive Smoke Exposure: Current Smokeless Tobacco: Never Tobacco Cessation:Ready to Q uit: Not Asked; Counseling Given: Not Answered Alcohol Use Standard Drinks/Week Comments Not Currently 0 (1 standard drink = 0.6 oz pur e alcohol) PHQ-2 Answer Date Recorded PHQ-2 score 0 03/01/2024 Area Deprivation Index Answer Date Jaret rded National Score (1-100), lower number is lower ri sk Not on file 06/07/2021 State Score (1-10), lower number is lower risk N ot on file 06/07/2021 Data from: https://www.neighborhoodatlas.medicine.[facility].edu/. Last address used for calculation Not on file 06/07/2021 Sex and Gender Information Value Date Recorded Sex Assigned at Not on file Legal Sex Male 8:57 AM EDT Gender Identity Not on file Sexual Orientation Not on file Last Filed Vital Signs Vital Sign Reading Time Taken Comments Blood Pressure 128/72 02/06/2025 12:49 PM EDT Pulse 62 02/06/2025 12:49 PM EDT Temperature 36.6 C (97.8 F) 02/06/2025 12:49 PM EDT Respiratory Rate 16 02/06/2025 12:4 9 PM EDT Oxygen Saturation 94% 02/06/2025 12: 49 PM EDT Inhaled Oxygen Concentration - - Weight 81.5 kg (179 lb 10.8 oz) 025 12:49 PM EDT Height 167.6 cm (5' 5.98 ) 02/06/2025 1 2:49 PM EDT Body Mass Index 29.01 02/06/2025 12:49 PM EDT Plan of Treatment Upcoming Encounters Date Type Department Care Team (Latest Contact Info) Description 05/01/2025 1:15 PM EDT Appointment Radiology Pet CT [address] [place] [address] Ct Chest with contrast and lab 05/08/2025 2:40 PM EDT Visit (SP) Office Hematology/Oncology [address] [place] [address] Jaya Frank MD [address] [place] [address] Ct Chest with contrast and lab Health Maintenance Due Date Last Done Comments Abdominal Aortic Aneurysm Screening 1951 Annual PCP Team Chronic Dise ase Visit 1969 Anxiety Screening 1969 Hepatitis C Screening 1969 LDL Cholesterol 1969 DTaP,Tdap,Td Vaccine (1 - Tdap) 1970 Pneumococcal Vaccine: 50+ (1 of 2 - PCV) [address] Colonography 1996 Colonoscopy 1996 Fecal Occult Blood 1996 Sigmoidoscopy 1996 Shingrix Vaccine (1 of 2) 2001 RSV Vaccine (1 - Risk 60-74 years 1-dose series) 2011 Medicare Annual Wellness Visit 03/04/2016 Cologuard (FIT-DNA) 08/24/2023 08/24/2020 Colorectal Cancer Screening 08/24/2023 Covid-19 Vaccine (1 - 2023-2 5 season) 2024 Advance Directive Discussion 09/04/2024 Influenza Vaccine (Season Ended) 2025 Diabetes Screening 01/31/2028 01/30/2025, 0 11/07/2024, 09/12/2024, Additional history exists Procedures Procedure Name Priority Date/Time Associated Diagnosis Comments CT CHEST W IVCON Routine 01/30/2025 2:25 PM EDT Malignant neoplasm of upper lobe of right lung (HCC) Non-caseating granuloma Abnormal finding on GI tract imaging Anemia, unspecified type CT ABD/PEL W IVCON Routine 01/30/2025 2: 25 PM EDT Malignant neoplasm of upper lobe of right lung (HCC) Non-caseating granuloma Abnormal finding on GI tract imaging Anemia, unspecified type CBC + DIFF Routine 01/30/2025 1:29 PM EDT Malignant neoplasm of upper lobe of right lung (HCC) Non-caseating granuloma Abnormal finding on GI tract imaging Anemia, unspecified type COMPREHENSIVE METABOLIC PANEL Routine 01/30/2025 1:29 PM EDT Malignant neoplasm of upper lobe of right lung (HCC) Non-caseating granuloma Abnormal finding on GI tract imaging Anemia, unspecified type IRON + TIBC Routine 01/30/2025 1:29 PM EDT Malignant neoplasm of upper lobe of right lung (HCC) Non-caseating granuloma Abnormal finding on GI tract imaging Anemia, unspecified type FERRITIN BLD Routine 01/30/2025 1:29 PM EDT Malignant neoplasm of upper lobe of right lung (HCC) Non-caseating granuloma Abnormal finding on GI tract imaging Anemia, unspecified type VITAMIN B12 BLOOD Routine 01/30/2025 1:2 9 PM EDT Malignant neoplasm of upper lobe of right lung (HCC) Non-caseating granuloma Abnormal finding on GI tract imaging Anemia, unspecified type FOLATE SERUM Routine 01/30/2025 1:29 PM EDT Malignant neoplasm of upper lobe of right lung (HCC) Non-caseating granuloma Abnormal finding on GI tract imaging Anemia, unspecified type ERYTHROPOIETIN/EPO Routine 01/30/2025 1: 29 PM EDT Malignant neoplasm of upper lobe of right lung (HCC) Non-caseating granuloma Abnormal finding on GI tract imaging Anemia, unspecified type from Last 3 Months Results * CT ABD/PEL W IVCON (01/30/2025 2:25 PM EDT) Anatomical Region Laterality Modality Abdomen Nuclear Medicine , Nuclear Medicine 01/30/2025 2:25 PM EDT Impressions 01/31/2025 11:17 AM EDT IMPRESSION: 1. Overall stable appearance of subcapsular hypodensity at the hepatic dome. No new hepatic lesions are noted. 2. No findings to suggest new abdominal or pelvic metastatic disease. Transcribe Date/Time: Jan 31 2025 10:58A Dictated by: FABIÁN MARINA MD This examination was interpreted and the report reviewed and electronically signed by: FABIÁN MARINA MD on Jan 31 2025 11:15AM EST Thank you for allowing us to participate in the care of your patient. Should there be any questions regarding this interpretation, please call [phone]. If you are unable to reach us at the number above, please feel free to contact [facility] at [phone]. Narrative 01/31/2025 11:17 AM EDT * * *Final Report* * * DATE OF EXAM: Jan 30 2025 2:25PM [facility] 0530 - CT ABD/PEL W IVCON / [...] the symphysis pubis. MQ: CTAP_3 Contrast: IV: 100 ml of Omnipaque 350 Oral: 500 ml of Omni 240 10-25ml diluted with water CT Radiation dose: Integrated Dose-length product (DLP) for this visit = 971 mGy*cm. CT Dose Reduction Employed: Automated exposure control(AEC) and iterative recon COMPARISON: CT performed 11/07/2024 RESULT: Liver: A subcapsular hypodensity is seen at the hepatic dome measuring 1.6 x 0.8 cm, previously 1.6 x 0.7 cm. No new hepatic lesions are noted. Biliary: The gallbladder is unremarkable. No biliary ductal dilation is seen. Spleen: No mass. No splenomegaly. Pancreas: No mass or duct dilation. Adrenals: No mass. Kidneys: No mass, calculus or hydronephrosis. GI tract: No dilation or wall thickening. Lymph nodes: Multiple subcentimeter retroperitoneal nodes are seen which are not enlarged by size criteria. Mesentery/Peritoneum: No ascites or mass. Retroperitoneum: No mass. Vasculature: - Abdominal aorta and iliac arteries: Atherosclerotic calcifications without aneurysm. - Celiac and SMA: Patent without stenosis. - Portal venous system (SMV, splenic vein, portal vein and branches): Patent. - Hepatic veins: Patent. Pelvis: No mass, ascites or fluid collection. Mild bladder wall thickening is seen. Bones/Soft Tissues: There is a large fat-containing right inguinal hernia. Degenerative changes are seen in the lumbar spine.. Lower thorax: A chest CT performed will be reported separately. Localizer images: No additional findings. Procedure Note Provider, [facility] - 01/31/2025 * * *Final Report* * * DATE OF EXAM: Jan 30 2025 2:25PM [facility] 0530 - CT ABD/PEL W IVCON / [...] the symphysis pubis. MQ: CTAP_3 Contrast: IV: 100 ml of Omnipaque 350 Oral: 500 ml of Omni 240 10-25ml diluted with water CT Radiation dose: Integrated Dose-length product (DLP) for this visit = 971 mGy*cm. CT Dose Reduction Employed: Automated exposure control(AEC) and iterative recon COMPARISON: CT performed 11/07/2024 RESULT: Liver: A subcapsular hypodensity is seen at the hepatic dome measuring 1.6 x 0.8 cm, previously 1.6 x 0.7 cm. No new hepatic lesions arenoted. Biliary: The gallbladder is unremarkable. No biliary ductal dilation is seen. Spleen: No mass. No splenomegaly. Pancreas: No mass or duct dilation. Adrenals: No mass. Kidneys: No mass, calculus or hydronephrosis. GI tract: No dilation or wall thickening. Lymph nodes: Multiple subcentimeter retroperitoneal nodes are seen which are not enlarged by size criteria. Mesentery/Peritoneum: No ascites or mass. Retroperitoneum: No mass. Vasculature: - Abdominal aorta and iliac arteries: Atherosclerotic calcifications without aneurysm. - Celiac and SMA: Patent without stenosis. - Portal venous system (SMV, splenic vein, portal vein and branches): Patent. - Hepatic veins: Patent. Pelvis: No mass, ascites or fluid collection. Mild bladder wall thickening is seen. Bones/Soft Tissues: There is a large fat-containing right inguinal hernia. Degenerative changes are seen in the lumbar spine.. Lower thorax: A chest CT performed will be reported separately. Localizer images: No additional findings. IMPRESSION IMPRESSION: 1. Overall stable appearance of subcapsular hypodensity at the hepatic dome. No new hepatic lesions are noted. 2. No findings to suggest new abdominal or pelvic metastatic disease. Transcribe Date/Time: Jan 31 2025 10:58A Dictated by: FABIÁN MARINA MD This examination was interpreted and the report reviewed and electronically signed by: FABIÁN MARINA MD on Jan 31 2025 11:15AM EST Thank you for allowing us to participate in the care of your patient. Should there be any questions regarding this interpretation, please call [phone]. If you are unable to reach us at the number above, please feel free to contact [facility] at [phone]. us Jaya Frank MD CT-[facility] Final Result * CT CHEST W IVCON (01/30/2025 2:25 PM EDT) Anatomical Region Laterality Modality Chest Nuclear Medicine , Nuclear Medicine 01/30/2025 2:25 PM EDT Impressions 01/31/2025 10:59 AM EDT IMPRESSION: 1. Improved aeration of the right middle lobe. No new lobar consolidation. 2. Numerous bilateral pulmonary nodules. Some previously visualized nodules have either resolved or decreased in size, whereas others are new. Findings may be infectious/inflammatory or neoplastic in nature. Recommend continued follow-up. 3. Aneurysmal dilation of the ascending thoracic aorta. Transcribe Date/Time: Jan 31 2025 10:42A Dictated by: FABIÁN MARINA MD This examination was interpreted and the report reviewed and electronically signed by: FABIÁN MARINA MD on Jan 31 2025 10:57AM EST Thank you for allowing us to participate in the care of your patient. Should there be any questions regarding this interpretation, please call [phone]. If you are unable to reach us at the number above, please feel free to contact [facility] at [phone]. Narrative 01/31/2025 10:59 AM EDT * * *Final Report* * * DATE OF EXAM: Jan 30 2025 2:25PM [facility] 0539 - CT CHEST W IVCON / PROCEDURE REASON: multiple diagnoses * * * * Physician Interpretation * * * * RESULT: EXAMINATION: CHEST CT WITH CONTRAST CLINICAL HISTORY: History of lung cancer. Technique: Spiral CT acquisition of the chest from the thoracic inlet to the upper abdomen following IV contrast. MQ: CTCW_6 Contrast: 100 mL Omnipaque [address] Radiation dose: Integrated Dose-length product (DLP) for this visit = 971 mGy*cm CT Dose Reduction Employed: Automated exposure control(AEC) and iterative recon Comparison: CT performed 11/07/2024 RESULT: Limitations: None. Lines, tubes, and devices: None. Lung parenchyma and airways: Postsurgical changes are noted in keeping with right upper lobectomy. There is moderate centrilobular emphysema. Previously visualized partial collapse of the right middle lobe has resolved. Several bilateral nodular opacities are again noted. These include the following: Right lower lobe (4:142) 6 mm, stable Left upper lobe (4:64) 5 mm, new Left upper lobe (4:65) 5 mm, new Left upper lobe (4:120) 5 mm, new Left lower lobe (4:124) 5 mm, previously 7 mm Left lower lobe (4:171) 6 mm, previously 8 mm A previously visualized 5 mm medial right lower lobe nodule has resolved. The central airways are widely patent. Pleural space: No pleural effusion. No pleural thickening. Lower neck, lymph nodes, and mediastinum: The imaged thyroid gland is normal. No lymphadenopathy in the supraclavicular, axillary, mediastinal, or hilar regions. Heart, pericardium, and thoracic vessels: There is aneurysmal dilation of the ascending thoracic aorta measuring up to 4.9 cm, previously 4.7 cm. The main pulmonary artery is normal in caliber. The cardiac chambers are normal in size. Coronary artery atherosclerotic calcification is noted. No pericardial effusion or thickening. Bones and soft tissues: Degenerative changes are seen in the thoracic spine. There has been a prior median sternotomy. There is bilateral gynecomastia. Superficial soft tissues are otherwise unremarkable. Upper abdomen: A dedicated CT of the abdomen and pelvis was performed concurrently and is reported separately. Localizer images: No additional findings. Procedure Note Provider, [facility] - 01/31/2025 * * *Final Report* * * DATE OF EXAM: Jan 30 2025 2:25PM [facility] 0539 - CT CHEST W IVCON / PROCEDURE REASON: multiple diagnoses * * * * Physician Interpretation * * * * RESULT: EXAMINATION: CHEST CT WITH CONTRAST CLINICAL HISTORY: History of lung cancer. Technique: Spiral CT acquisition of the chest from the thoracic inlet to the upper abdomen following IV contrast. MQ: CTCW_6 Contrast: 100 mL Omnipaque [address] Radiation dose: Integrated Dose-length product (DLP) for this visit = 971 mGy*cm CT Dose Reduction Employed: Automated exposure control(AEC) and iterative recon Comparison: CT performed 11/07/2024 RESULT: Limitations: None. Lines, tubes, and devices: None. Lung parenchyma and airways: Postsurgical changes are noted in keeping with right upper lobectomy. There is moderate centrilobular emphysema. Previously visualized partial collapse of the right middle lobe has resolved. Several bilateral nodular opacities are again noted. These include the following: Right lower lobe (4:142) 6 mm, stable Left upper lobe (4:64) 5 mm, new Left upper lobe (4:65) 5 mm, new Left upper lobe (4:120) 5 mm, new Left lower lobe (4:124) 5 mm, previously 7 mm Left lower lobe (4:171) 6 mm, previously 8 mm A previously visualized 5 mm medial right lower lobe nodule has resolved. The central airways are widely patent. Pleural space: No pleural effusion. No pleural thickening. Lower neck, lymph nodes, and mediastinum: The imaged thyroid gland is normal. No lymphadenopathy in the supraclavicular, axillary, mediastinal, or hilar regions. Heart, pericardium, and thoracic vessels: There is aneurysmal dilation of the ascending thoracic aorta measuring up to 4.9 cm, previously 4.7 cm. The main pulmonary artery is normal in caliber. The cardiac chambers are normal in size. Coronary artery atherosclerotic calcification is noted. No pericardial effusion or thickening. Bones and soft tissues: Degenerative changes are seen in the thoracic spine. There has been a prior median sternotomy. There is bilateral gynecomastia. Superficial soft tissues are otherwise unremarkable. Upper abdomen: A dedicated CT of the abdomen and pelvis was performed concurrently and is reported separately. Localizer images: No additional findings. IMPRESSION IMPRESSION: 1. Improved aeration of the right middle lobe. No new lobar consolidation. 2. Numerous bilateral pulmonary nodules. Some previously visualized nodules have either resolved or decreased in size, whereas others are new. Findings may be infectious/inflammatory or neoplastic in nature. Recommend continued follow-up. 3. Aneurysmal dilation of the ascending thoracic aorta. Transcribe Date/Time: Jan 31 2025 10:42A Dictated by: FABIÁN MARINA MD This examination was interpreted and the report reviewed and electronically signed by: FABIÁN MARINA MD on Jan 31 2025 10:57AM EST Thank you for allowing us to participate in the care of your patient. Should there be any questions regarding this interpretation, please call [phone]. If you are unable to reach us at the number above, please feel free to contact [facility]Radiology at [phone]. us Jaya Frank MD CT-PAMA Final Result * VITAMIN B12 (01/30/2025 1:29 PM EDT) Vitamin B12 277 232 - 1,245 pg/mL 01/31/2025 6:18 AM EDT [facility] Blood BLOOD SPECIMEN / Unknown Venipuncture / Unknown 01/30/2025 1:29 PM EDT 01/30/2025 1:37 PM EDT us Jaya Frank MD LABORATORY Final Result [facility] [address] [address], * IRON AND TIBC (01/30/2025 1:29 PM EDT) Iron 67 41 - 186 ug/dL 01/31/2025 6:01 AM EDT [facility] TIBC 329 232 - 386 ug/dL 01/31/2025 6:01 AM EDT [facility] Transferrin Saturation 20.4 15.0 - 57.0 % 01/31/2025 6:01 AM EDT [facility] Blood BLOOD SPECIMEN / Unknown Venipuncture / Unknown 01/30/2025 1:29 PM EDT 01/30/2025 1:37 PM EDT us Jaya Frank MD LABORATORY Final Result [facility] [address] [place] [id number], [place] * FOLATE, SERUM (01/30/2025 1:29 PM EDT) Folate 12.6 >4.7 ng/mL 01/31/2025 6:18 AM EDT [facility] Blood BLOOD SPECIMEN / Unknown Venipuncture / Unknown 01/30/2025 1:29 PM EDT 01/30/2025 1:37 PM EDT us Jaya Frank MD LABORATORY Final Result Performing Organization Address City/[facility]/ZIP Co de Phone Number [facility] [address] [place] [id number], [place] * FERRITIN (01/30/2025 1:29 PM EDT) Ferritin 187.0 30.3 - 565.7 ng/mL 01/31/2025 6:18 AM EDT [facility] Blood BLOOD SPECIMEN / Unknown Venipuncture / Unknown 01/30/2025 1:29 PM EDT 01/30/2025 1:37 PM EDT us Jaya Frank MD LABORATORY Final Result [facility] [address] [id number], [place] * ERYTHROPOIETIN/EPO (01/30/2025 1:29 PM EDT) [facility] Erythropoietin 11.5 2.6 - 18.5 mIU/mL 01/31/2025 12:07 PM EDT [facility] Blood BLOOD SPECIMEN / Unknown Venipuncture / Unknown 01/30/2025 1:29 PM EDT 01/30/2025 1:37 PM EDT Narrative [facility] - 01/31/2025 12:07 PM EDT Test analyzed by the Macy DxI method. Jaya Frank MD LABORATORY Final Result [facility] [address] [facility] [address] [address], [place] * (ABNORMAL) COMPREHENSIVE METABOLIC PANEL (01/30/2025 1:29 PM EDT) [facility] Protein, Total 7.1 6.3 - 8.0 g/dL 01/30/2025 2:02 PM EDT [facility] Albumin 4.3 3.9 - 4.9 g/dL 01/30/2025 2:02 PM EDT [facility] Calcium, Total 9.4 8.5 - 10.2 mg/dL 01/30/2025 2:02 PM EDT [facility] Bilirubin, Total 0.3 0.2 - 1.3 mg/dL 01/30/2025 2:02 PM EDT [facility] Alkaline Phosphatase 95 38 - 113 U/L 01/30/2025 2:02 PM EDT [facility] AST 14 14 - 40 U/L 01/30/2025 2:02 PM EDT [facility] ALT 8(L) 10 - 54 U/L 01/30/2025 2:02 PM EDT [facility] Glucose 85 74 - 99 mg/dL 01/30/2025 2:02 PM EDT [facility] Comment: The [place] Diabetes [employer] (ADA) provides guidance for cutoff [...] Standards of Medical Care in Diabetes 2016, [place] [employer]. Diabetes Care. 2016.39(Suppl 1). BUN 16 9 - 24 mg/dL 01/30/2025 2:02 PM T [facility] Creatinine 0.86 0.73 - 1.22 mg/dL 01/30/2025 2:02 PM T [facility] Sodium 138 136 - 144 mmol/L 01/30/2025 2:02 PM [facility] Potassium 3.8 3.7 - 5.1 mmol/L 01/30/2025 2:02 PM EDT [facility] Chloride 105 98 - 107 mmol/L 01/30/2025 2:02 PM [facility] CO2 25 22 - 30 mmol/L 01/30/2025 2:02 PM T [facility] Anion Gap 8 8 - 15 mmol/L 01/30/2025 2:02 PM [facility] Estimated Glomerular Filtration Rate 91 >=60 mL/min/1.7 3m 01/30/2025 2:02 PM [facility] Comment:Estimated Glomerular Filtration Rate (eGFR) is calculated using the 2020 CKD-EPI creatinine equation. This equation utilizes serum creatinine, sex, and age as parameters. The creatinine assay has traceable calibration to isotope dilution- mass spectrometry. Refer to KDIGO guidelines for clinical interpretation. In patients with unstable renal function, e.g. those with acute kidney injury, the eGFR may not accurately reflect actual GFR. Blood BLOOD SPECIMEN / Unknown Venipuncture / Unknown 01/30/2025 1:29 PM EDT 01/30/2025 1:37 PM EDT us Jaya Frank MD LABORATORY Final Result [facility] [address] [place] [address] * (ABNORMAL) COMPLETE BLOOD COUNT AND DIFFERENTIAL (01/30/2025 1:29 PM EDT) WBC 8.67 3.70 - 11.00 k/uL 01/30/2025 1:40 PM EDT [facility] RBC 4.27 4.20 - 6.00 m/uL 01/30/2025 1:40 PM EDT [facility] Hemoglobin 13.2 13.0 - 17.0 g/dL 01/30/2025 1:40 PM EDT [facility] Hematocrit 39.7 39.0 - 51.0 % 01/30/2025 1:40 PM EDT [facility] MCV 93.0 80.0 - 100.0 fL 01/30/2025 1:40 PM EDT [facility] MCH 30.9 26.0 - 34.0 pg 01/30/2025 1:40 PM EDT [facility] MCHC 33.2 30.5 - 36.0 g/dL 01/30/2025 1:40 PM EDT [facility] RDW-CV 13.5 11.5 - 15.0 % 01/30/2025 1:40 PM EDT [facility] Platelet Count 225 150 - 400 k/uL 01/30/2025 1:40 PM EDT [facility] MPV 9.1 9.0 - 12.7 fL 01/30/2025 1:40 PM EDT [facility] Neutrophils % 58.6 % 01/30/2025 1:40 PM EDT [facility] Abs Neut 5.08 1.45 - 7.50 k/uL 01/30/2025 1:40 PM EDT [facility] Lymphocytes % 23.4 % 01/30/2025 1:40 PM EDT [facility] Abs Lymph 2.03 1.00 - 4.00 k/uL 01/30/2025 1:40 PM EDT [facility] Monocytes % 13.5 % 01/30/2025 1:40 PM EDT [facility] Abs [place] 1.17(H) <0.87 k/uL 01/30/2025 1:40 PM EDT [facility] Eosinophils % 3.2 % 01/30/2025 1:40 PM EDT [facility] Abs Eosin 0.28 <0.46 k/uL 01/30/2025 1:40 PM EDT [facility] Basophils % 0.6 % 01/30/2025 1:40 PM EDT [facility] Abs Baso 0.05 <0.11 k/uL 01/30/2025 1:40 PM EDT [facility] Immature Granulocytes % 0.7 % 01/30/2025 1:40 PM EDT [facility] Abs Immature Gran 0.06 <0.10 k/uL 01/30/2025 1:40 PM EDT [facility] NRBC 0.0 /100 WBC 01/30/2025 1:40 PM EDT [facility] Absolute nRBC <0.01 <0.01 k/uL 01/30/2025 1:40 PM EDT [facility] Diff Type Auto 01/30/2025 1:40 PM EDT [facility] Blood BLOOD SPECIMEN / Unknown Venipuncture / Unknown 01/30/2025 1:29 PM EDT 01/30/2025 1:37 PM EDT us Jaya Frank MD LABORATORY Final Result [facility] [address] [place] [address] from Last 3 Months Insurance MEDICARE [place]ICAID [place] Care Teams Mix Crusher Operator Relationship Specialty Start Date End Date Shaikh Etienne MD [facility] [place] [address] PCP - General Primary Care 01/13/21 Jj Ambrosio MD [address] [place] [address] Boatswain Mate Cardiology 01/04/22 Maliha Lentz DO [address] [facility] [facility] [place] [address] Internal Medicine 09/15/22
--- OUTSIDE RECORDS SUMMARY | 2025-02-21 13:02 | XMS_ITS | Encounter Summary ---
Author Organization [employer] Address [id number] [address] [place] [address] Care Team Providers Care Laboratory Director Name Role Phone Shaikh ADILENE Etienne Primary Care Provider [phone] Encounter Details Date Type Department Care Team (Late Contact Info) Description 08/11/2022 Orders Only [facility] Pulmonary/Sleep Medicine [address] [place] [address] Kirti Camacho LPN Social History Tobacco Use Types Packs/Day Years Used Date Smoking Tobacco: Never Assessed Childcare Answer Date Recorded Childcare Unknown 07/14/2020 Employment Answer Date Recorded Employment Unknown 07/14/2020 Purpose - Life Answer Date Recorded Purpose and direction in life Unknown Sex and Gender Information Value Date Recorded Sex Assigned at Not on file Legal Sex Male 7:11 PM EDT Gender Identity Not on file Sexual Orientation Not on file COVID-19 Exposure Response Date Recorded In the last month, have you been in contact with someone who was confirmed or suspected to have Coronavirus / COVID-19? No / Unsure 08/08/2022 9:54 AM EST documented as of this encounter Plan of Treatment Upcoming Encounters Date Type Department Care Team (Late Contact Info) Description 08/07/2025 11:45 AM EST Office Visit [facility] [address] [place] [address] Maliha Lentz, DO [address] [address] documented as of this encounter Visit Diagnoses Not on filedocumented in this encounter Care Teams Laboratory Director Relationship Specialty Start Date End Date Shaikh Etienne MD PCP - General Internal Medicine 08/19/22 documented as of this encounter
--- OUTSIDE RECORDS SUMMARY | 2025-02-21 13:02 | XMS_ITS | Encounter Summary ---
Author Organization [facility] Address [address] [facility] [place] [address] Care Team Providers Care Supervisor Inspection Name Role Phone Shaikh ADILENE Etienne Primary Care Provider [phone] Shaikh ADILENE Etienne Primary Care Provider [phone] Tom Benton MD Primary Care Provider [phone] Margaret Vasques FIELD PROJECT MANAGER Unavailable [phone] Unallocated, [facility] Provider Primary Care Provi alia Tom Benton MD Primary Care Provider [phone] Reason for Visit * Reason Comments Med Refill Encounter Details Date Type Department Care Team (Late st Contact Info) Description 08/23/2023 Refill [facility] [address] [place] [address] Shaikh Etienne MD [address] [place] [phone] Insomnia, unspecified; Hypokalemia; Chronic obstructive pulmonary disease, unspecified (HCC); Depression, unspecified Social History Tobacco Use Types Packs/Day Years Used Date Smoking Tobacco: Never Assessed Sex and Gender Information Value Date Recorded Sex Assigned at Not on file Legal Sex Male 2:39 PM EDT Gender Identity Not on file Sexual Orientation Not on file documented as of this encounter Miscellaneous Notes * Telephone Encounter - Shaikh Lowell MD - 08/24/2023 3:56 AM EST Approving, but needs appt for additional refills. documented in this encounter Plan of Treatment Upcoming Encounters Date Type Department Care Team (Late st Contact Info) Description 04/02/2025 1:20 PM EDT Office Visit [facility] [address] [place] [address] Anayeli Heaton, CHELLE [address] [place] [phone] 02/18/2026 4:30 PM EDT Office Visit [facility] [address] [place] [phone] Anayeli Heaton NP [address] [place] [phone] documented as of this encounter Visit Diagnoses Diagnosis Insomnia, unspecified Hypokalemia Hypopotassemia Chronic obstructive pulmonary disease, unspecified (HCC) Depression, unspecified documented in this encounter Care Teams Supervisor Inspection Relationship Specialty Start Date End Date Shaikh Etienne MD PCP - General Internal Medicine 03/22/23 09/21/23 Shaikh Etienne MD [address] [place] [phone] PCP - General Internal Medicine 09/22/23 04/15/24 Tom Benton MD [address] [place] [phone] PCP - General Family Medicine 04/16/24 06/24/24 Unallocated, Kacey Canada MD [address] [place] [address] PCP - General Family Medicine 06/25/24 07/03/24 Tom Benton MD [address] [place] [address] PCP - General Family Medicine 07/04/24 Margaret Vasques NP [address] [place] [address] Nurse Practitioner Family Medicine 04/16/24 documented as of this encounter
--- OUTSIDE RECORDS SUMMARY | 2025-02-21 13:02 | XMS_ITS | Encounter Summary ---
Author Organization [facility] Address [address] [place] [address] Care Team Providers Care Saxophone Assembler Name Role Phone Shaikh ADILENE Etienne Primary Care Provider [phone] Tom Benton MD Primary Care Provider [phone] Margaret Vasques SUPERVISOR PUMPING STATION Unavailable [phone] Unallocated, Noms Provider Primary Care Provi alia Tom Benton MD Primary Care Provider [phone] Encounter Details Date Type Department Care Team (Late st Contact Info) Description 09/28/2023 Orders Only [facility] [address] [place] [phone] Shaikh Etienne MD [address] [place] [phone] Social History Tobacco Use Types Packs/Day Years Used Date Smoking Tobacco: Every Day Cigarettes Humiliation, Afraid, Rape, and Kick questionnair e [...] 10/02/2023 How often do you attend chur ch or zoroastrian services? Never 10/02/2023 Do you belong to any clubs o r organizations such as druze groups, unions, fraternal or athletic groups, or [...] Answer Date Recorded Patient Health Questionnaire-2 Score 2 10/02/2023 [facility] Answer Date Recorded [...] place to sleep or slept in a long term (including now)? No 10/02/2023 Sex and Gender Information Value Date Recorded Sex Assigned at Not on file Legal Sex Male 2:39 PM EDT Gender Identity Not on file Sexual Orientation Not on file documented as of this encounter Plan of Treatment Upcoming Encounters Date Type Department Care Team (Late st Contact Info) Description 04/02/2025 1:20 PM EDT Office Visit [facility] [address] [place] [address] Anayeli Heaton NP [address] [place] [phone] 02/18/2026 4:30 PM EDT Office Visit [facility] [address] [place] [address] Anayeli Heaton NP [address] [place] [phone] documented as of this encounter Visit Diagnoses Not on filedocumented in this encounter Care Teams Saxophone Assembler Relationship Specialty Start Date End Date Shaikh Etienne MD [address] [place] [address] PCP - General Internal Medicine 09/22/23 04/15/24 Tom Benton MD [address] [place] [address] PCP - General Family Medicine 04/16/24 06/24/24 Unallocated, Kacey Canada MD [address] [place] [address] PCP - General Family Medicine 06/25/24 07/03/24 Tom Benton MD [address] [place] [address] PCP - General Family Medicine 07/04/24 Margaret Vasques NP [address] [place] [address] Nurse Practitioner Family Medicine 04/16/24 documented as of this encounter
--- OUTSIDE RECORDS SUMMARY | 2025-02-21 13:02 | XMS_ITS | Clinical Summary ---
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 3 each 023 Active Entresto 97-103 MG tablet Take 1 tablet by mouth in the morning and 1 tablet before bedtime. 023 Active nitroglycerin (Nitrostat) 0.[address] 0.4 mg under the tongue every 5 (five) minutes if needed for chest pain (DISSOLVE 1 (ONE) TABLET UNDER THE TONGUE EVERY 15 MINUTES NEEDED; max 3 (THREE) doses in 24 HOURS) 023 Active metoprolol succinate XL (Toprol-XL) 100 MG 24 hr tablet Take 1 tablet by mouth in the morning. 023 Active aspirin 81 MG EC tablet Take 81 mg by mouth 1 (one) time each day at the same time Active furosemide (Lasix) 40 MG tabletIndicatio ns:Heart failure, unspecified (HCC) Take 1 tablet (40 mg) by mouth Daily 90 tablet 2 024 Active spironolactone (Aldactone) 25 MG tablet Take 0.5 tablets (12.5 mg) by mouth in the morning. 025 Active busPIRone (Buspar) 30 MG tabletIndicatio ns:Depression, unspecified Take 1 tablet (30 mg) by mouth in the morning and 1 tablet (30 mg) before bedtime. 60 tablet 11 025 2025 Active potassium chloride CR (Klor-Con M10) 10 MEQ ER tabletIndicatio ns:Hypokalemia Take 1 tablet (10 mEq) by mouth Daily 30 tablet 2 Active amLODIPine (Norvasc) 10 MG tabletIndicatio ns:Essential (primary) hypertension Take 1 tablet (10 mg) by mouth Daily 90 tablet 1 Active albuterol (2.5 MG/3ML) 0.083% nebulizer solutionIndicat ions:Chronic obstructive pulmonary disease, unspecified (HCC) Take 3 mL (2.5 mg) by nebulization every 4 (four) hours if needed for wheezing 270 mL 3 Active Linzess 290 MCG capsule Take 290 mcg by mouth Daily Active sildenafil (Viagra) 50 MG tabletIndicatio ns:Male erectile dysfunction, unspecified Take 1 tablet (50 mg) by mouth if needed for erectile dysfunction 30 tablet 2 Active clopidogrel (Plavix) 75 MG tabletIndicatio ns:Atherosclero tic heart disease of [place] coronary artery without angina pectoris Take 1 tablet (75 mg) by mouth in the morning. 90 tablet 1 025 2024 Active albuterol HFA 90 mcg/act inhalerIndicati ons:Shortness of breath Inhale 2 puffs every 6 (six) hours if needed for wheezing 18 g 1 025 2024 Active atorvastatin (Lipitor) 40 MG tabletIndicatio ns:Atherosclero tic heart disease of [place] coronary artery without angina pectoris Take 1 tablet (40 mg) by mouth at bedtime TAKE 1 TABLET BY MOUTH AT BEDTIME 90 tablet 1 025 2024 Active Cobalamin Combinations (B-12) 100-[address] 1 tablet under the tongue in the morning. 025 2024 Active sertraline (Zoloft) 100 MG tabletIndicatio ns:Mild episode of recurrent major depressive disorder Take 1 tablet (100 mg) by mouth Daily 30 tablet 1 025 2024 Active albuterol HFA 90 mcg/act inhalerIndicati ons:Shortness of breath inhale 2 (TWO) puffs BY MOUTH every 4-6 hour as needed for SHORTNESS OF BREATH / FOR WHEEZING 18 g 3 024 2024 Discontinued(R eorder) sertraline (Zoloft) 50 MG tabletIndicatio ns:Mild episode of recurrent major depressive disorder Take 1 tablet (50 mg) by mouth Daily Start with 1/2 pill daily for 7 days, then increase to 1 pill 30 tablet 1 025 2024 Discontinued atorvastatin (Lipitor) 40 MG tabletIndicatio ns:Atherosclero tic heart disease of [place] coronary artery without angina pectoris Take 1 tablet (40 mg) by mouth at bedtime TAKE 1 TABLET BY MOUTH AT BEDTIME 90 tablet 1 025 2024 Discontinued(R eorder) sertraline (Zoloft) 50 MG tabletIndicatio ns:Mild episode of recurrent major depressive disorder Take 1 tablet (50 mg) by mouth Daily 30 tablet 1 025 2024 Discontinued(R eorder) Active Problems Problem Noted Date Diagnosed Date Chronic systolic (congestive) heart failure 12/04 Assessment & Plan (12/26/2024 7:29 PM EDT): Follows with [facility] cardiology Entresto, diuretics, amlodpine GERD (gastroesophageal reflux disease) Head trauma 02/26/2024 Assessment & Plan (02/26/2024 1:58 PM EDT): Fell at home, no LOC but reports head trauma and has mild headache since then. On ASA, plavix. Will order CTH. No neurological symptoms. Left leg pain 01/01/2024 Assessment & Plan (01/01/2024 3:56 PM EDT): Left leg pain x 3 weeks, started after hitting leg against bed frame, worsened =last Sat after wall. Has not been able to walk since then. Point tenderness- suspect fx. C/w NWB - ordered XR Unable to use NSAIDS due to CKD, CAD and CHF. Tylenol is not helping. Will order oxycodone as needed for acute pain Personal history of colonic polyps 10/06/2023 Positive colorectal cancer screening using Colog uard test 10/06/2023 Ischemic cardiomyopathy 10/02/2023 Tobacco dependence 10/02/2023 Assessment & Plan (02/12/2025 6:48 AM EDT): The patient has been advised of the risks of continued smoking: stroke, MT, all forms of cancer, lung disease, and . Options for quitting smoking include: cold turkey, hypnosis, acupuncture, nicotine replacement meds (gum, lozenges, and patches), Buproprion, and Varenicline. At this time pt is encouraged to evaluate their goals for wanting to quit smoking, and reach out to provider when ready to start this process Assessment & Plan (12/26/2024 7:26 PM EDT): The patient has been advised of the risks of continued smoking: stroke, MT, all forms of cancer, lung disease, and . Options for quitting smoking include: cold turkey, hypnosis, acupuncture, nicotine replacement meds (gum, lozenges, and patches), Buproprion, and Varenicline. At this time pt is encouraged to evaluate their goals for wanting to quit smoking, and reach out to provider when ready to start this process Assessment & Plan (10/02/2023 1:44 PM EST): Patient counseled on smoking/tobacco cessation. Patient educated on harmful effects of smoking cigarettes/tobacco including increased risk of cardiovascular diseases, chronic lung disease and multiple cancers. First degree atrioventricular block 10/02/2023 Medicare annual wellness visit, subsequent 10/02 Assessment & Plan (02/12/2025 6:48 AM EDT): Reviewed Ht/Wt/BMI Recommend eye exam yearly Recommend dental exams twice a year Balance work/leisure activities Exercises is recommended most days of the week (appropriate as chronic conditions allow) Follow up yearly and prn Assessment & Plan (10/02/2023 1:46 PM EST): Patient here for Medicare Wellness. Reviewed medical, surgical and social history. Reviewed medication list. Patient screened for depression, fall risk, cognitive impairment. Patient provided appropriate education on chronic medical conditions, prescription medications. Patient's health related questions and concerns addressed and answered. Upto date on Colon cancer screening. Patient recommended to get Influenza and Pneumonia vaccine. Chronic idiopathic constipation 10/02/2023 Assessment & Plan (06/03/2024 2:28 PM EDT): Pt following clesely with GI; Currently taking Linzess 290mg; Normal colonoscopy - 04/25 - except for single polyp. Continue current regimen as directed by GI. Assessment & Plan (10/02/2023 1:50 PM EST): Chronic constipation, ongoing for 7-8 months. Bowel movement every 3-4 days, usually hard stools. Associated pain in abdomen before bowel movement. Patient has tried daily use of miralax and colace with no improvement in his symptoms. Normal colonoscopy - 04/25 - except for single polyp. Patient encouraged to increase fibre, fluid intake in his diet. Will call in oral linzess for constipation as he has tried 2 different OTC medicaitons for constipation without any benefit. Dyspnea on exertion 08/18/2022 Panlobular emphysema 07/21/2022 Assessment & Plan (09/11/2024 1:49 PM EST): On Trelegy. Chronic exertional ZHAO. Unchanged. Seen by Pulm in 08/26 Continues to smoke. Encouraged to quite smoking Assessment & Plan (02/26/2024 1:56 PM EDT): On Trelegy. Chronic exertional ZHAO. Unchanged. Seen by Pulm in 08/26 Continues to smoke. Encouraged to quite smoking. Depression 01/05/2022 Overview (10/02/2023): Last Assessment & Plan: Assessment: managed with med, stable Last Assessment & Plan: Assessment: managed with med, stable Last Assessment & Plan: Assessment: managed with med, stable Last Assessment & Plan: Assessment: managed with med, stable Assessment & Plan (02/12/2025 2:00 PM EDT): Current meds: buspar, sertaline Increase dose to 100mg Fu in 8 weeks Assessment & Plan (12/26/2024 7:28 PM EDT): PHQ 9=7 WILLIAMS 7=9 Call to cardiology Jaleesa, she will ask GM about this and return call Likely will start sertraline, if do, cut buspar dosing in half Take medication only as directed. This medication will take approximately 4-6 weeks to become effective. If any suicidal thoughts, thoughts of hurting others, or hallucinations contact the office or proceed to the Emergency Room for mental health evaluation. Medication may cause dry mouth, dizziness, and in some cases worsening in depression symptoms. Please contact the office if these occur. Assessment & Plan (10/02/2023 1:44 PM EST): Patient reports improved mood since he started using Elavil. Also using Buspirone. History of aortic valve replacement 01/05/2022 Overview (10/02/2023): Last Assessment & Plan: Assessment: s/p 06/2020 History of coronary artery bypass surgery 2021 Overview (10/02/2023): Last Assessment & Plan: Assessment: 2019, stable. Follows up with cardiology HLD (hyperlipidemia) 01/05/2022 Overview (10/02/2023): Last Assessment & Plan: Assessment: managed with med, stable Last Assessment & Plan: Assessment: managed with med, stable Last Assessment & Plan: Assessment: managed with med, stable Last Assessment & Plan: Assessment: managed with med, stable Assessment & Plan (09/11/2024 1:56 PM EST): Currently taking Denies any myalgias. Most recent Lipid Panel 09/27; Will recheck today. Continue current regimen. Assessment & Plan (06/03/2024 2:30 PM EDT): Currently taking Denies any myalgias. Most recent Lipid Panel 09/27; Will recheck in September. Continue current regimen. Assessment & Plan (10/02/2023 1:46 PM EST): On Lipitor. Check Lipid panel. HTN (hypertension) 01/05/2022 Overview (10/02/2023): Last Assessment & Plan: Assessment: managed with med, stable 01/05/2022 127/59 10/29/2021 119/56 Last Assessment & Plan: Assessment: managed with med, stable 01/05/2022 127/59 10/29/2021 119/56 Last Assessment & Plan: Assessment: managed with med, stable 01/05/2022 127/59 10/29/2021 119/56 Last Assessment & Plan: Assessment: managed with med, stable 01/05/2022 127/59 10/29/2021 119/56 Assessment & Plan (02/12/2025 6:49 AM EDT): Please check blood pressure daily and record DASH diet Limit caffeine Take medication as directed Contact office if chest pain, pressure, dizziness, shortness of breath, swelling legs Recommend slow position changes Current meds:diuretic, amlodipine Assessment & Plan (12/26/2024 7:29 PM EDT): Please check blood pressure daily and record DASH diet Limit caffeine Take medication as directed Contact office if chest pain, pressure, dizziness, shortness of breath, swelling legs Recommend slow position changes Current meds:diuretic, amlodipine Assessment & Plan (09/11/2024 1:48 PM EST): Currently taking amlodipine 5mg Entresto Metoprolol 100mg Spironolactone 25mg Cardiology managing medications; Follows closely. Checks BP at home; Averages are 120's SBP;BP is TOO LOW in office today, too tightly controlled. Pt reports dizziness occassionally. Will decrease Spironolactone to 12.5mg from 25mg today. If continues to be low will discontinue. Given BP log, advised pt to record BP and bring log back with them to next visit. Assessment & Plan (06/03/2024 2:30 PM EDT): Currently taking amlodipine 5mg Entresto Metoprolol 100mg Spironolactone 25mg Cardiology managing medications; Follows closely. Checks BP at home; Averages are 120's SBP; Denies orthostatic changes, dizziness, cough, shortness of breath, swelling in extremities. Continue current regimen. Given BP log, advised pt to record BP and bring log back with them to next visit. Presence of prosthetic heart valve 01/05/2022 Overview (01/01/2024): Last Assessment & Plan: Assessment: s/p 06/2020 Acute thrombus of left ventricle 01/05/2022 Cancer of trachea, bronchus, and lung 10/29/2021 Overview (10/02/2023): Last Assessment & Plan: Assessment: s/p lobectomy September 2020, stable Follows up with PCP Last Assessment & Plan: Assessment: s/p lobectomy September 2020, stable Follows up with PCP Last Assessment & Plan: Assessment: s/p lobectomy September 2020, stable Follows up with PCP Last Assessment & Plan: Assessment: s/p lobectomy September 2020, stable Follows up with PCP Adenocarcinoma of right lung 10/29/2021 Assessment & Plan (02/12/2025 6:49 AM EDT): Continue w oncology Assessment & Plan (12/26/2024 7:25 PM EDT): Continue w oncology Assessment & Plan (02/26/2024 1:57 PM EDT): S/p lobectomy in Suspicions PET scan with positive cologuard in large bowel - negative Colonoscopy 04/25 Patient continues to smoke. Encouraged smoking cessation. Numerous new lung nodules on CT chest - has an appt with oncology next Monday. Assessment & Plan (10/02/2023 1:42 PM EST): S/p lobectomy in 2019. Suspicions PET scan with positive cologuard in large bowel - negative Colonoscopy 04/25 Patient continues to smoke. Encouraged smoking cessation. Following Oncology. Insomnia 07/07/2020 Assessment & Plan (10/02/2023 1:45 PM EST): Improved since addition of Elavil. Cw Hollis and Andre. Carotid artery stenosis 06/19/2020 Aneurysm of thoracic aorta 06/18/2020 Overview (10/02/2023): Last Assessment & Plan: Assessment: follows up with cardiology, stable and unchanged per last ECHO 10/2021. Asymptomatic Last Assessment & Plan: Assessment: follows up with cardiology, stable and unchanged per last ECHO 10/2021. Asymptomatic Assessment & Plan (10/02/2023 1:43 PM EST): 4.7 cm based on last ECHO. Yearly ECHO as per cardiology. Needs strict control of his HTN. Encouraged smoking cessation Left ventricular thrombus 06/18/2020 Overview (10/02/2023): Resolved per Dr. Lisa-anticoagulation was discontinued Resolved per Dr. Lisa-anticoagulation was discontinued Aortic valve stenosis 06/18/2020 Overview (10/02/2023): Status post Aortic valve replacement with 25 mm Chan Magna ease pericardial valve Status post Aortic valve replacement with 25 mm Chan Magna ease pericardial valve Last Assessment & Plan: Assessment: follows up with cardiology, stable and per last ECHO 10/2021. Asymptomatic Last Assessment & Plan: Assessment: follows up with cardiology, stable and per last ECHO 10/2021. Asymptomatic Chronic obstructive pulmonary disease 06/17/2020 Overview (10/02/2023): Last Assessment & Plan: Assessment: managed with inhalers, stable Last Assessment & Plan: Assessment: managed with inhalers, stable Assessment & Plan (06/03/2024 2:29 PM EDT): Currently taking Trelegy. Still has ZHAO, daily cough. Current smoker, down to ppd; Follows closely with Pulmonary medicine. Continue current regimen. Assessment & Plan (10/02/2023 1:41 PM EST): Stable. On Trelegy. Still has ZHAO, daily cough. Current smoker, has cut down smoking and down to half a pack a day. Follows up with Pulmonary medicine. Coronary arteriosclerosis 06/17/2020 Overview (10/02/2023): Last Assessment & Plan: Assessment: follows up with cardiology, daily aspirin and plavix Last Assessment & Plan: Assessment: follows up with cardiology, daily aspirin and plavix Systolic heart failure 06/17/2020 Assessment & Plan (10/02/2023 1:43 PM EST): EF improved to 65%. Following [facility] cardiology. Euvolemic. Doing overall ok. On Toprol, Entresto, Aldactone. Resolved Problems Problem Noted Date Diagnosed Date Resolved Date Constipation 04/03/2024 02/12/2025 Smoker 01/05/2022 12/26/2024 Overview (10/02/2023): Last Assessment & Plan: Assessment: 1ppd for 40 years Last Assessment & Plan: Assessment: 1ppd for 40 years Last Assessment & Plan: Assessment: 1ppd for 40 years Last Assessment & Plan: Assessment: 1ppd for 40 years Lung nodules 01/05/2022 12/26/2024 Lung mass 06/17/2020 12/26/2024 Encounters Date Type Department Care Team Description 02/12/2025 1:20 PM EDT Office Visit [facility] [address] [place] [address] Anayeli Heaton NP Medicare annual wellness visit, subsequent (Primary Dx); Tobacco dependence; Mild episode of recurrent major depressive disorder ; Primary hypertension ; Adenocarcinoma of right lung (HCC) 02/12/2025 Bamboo flowsheet [facility] [address] [place] [address] Anayeli Heaton NP 02/10/2025 Refill [facility] [address] [place] [address] Anayeli Heaton NP Mild episode of recurrent major depressive disorder ; Atherosclerotic heart disease of [place] coronary artery without angina pectoris 01/30/2025 Clinisync Result Encounter [facility] External Department Unsolicited Provider, Generic External Data 01/30/2025 Clinisync Result Encounter [facility] External Department Unsolicited Provider, Generic External Data 01/30/2025 Clinisync Result Encounter [facility] External Department Unsolicited Provider, Generic External Data 01/23/2025 Refill [facility] [address] [place] [address] Anayeli Heaton NP Shortness of breath 01/14/2025 Refill [facility] [address] [place] [address] Tom Benton MD Atherosclerotic heart disease of [place] coronary artery without angina pectoris 01/13/2025 Refill [facility] [address] [place] [address] Tom Benton MD Atherosclerotic heart disease of [place] coronary artery without angina pectoris 01/03/2025 Refill [facility] [address] [place] [address] Anayeli Heaton NP Mild episode of recurrent major depressive disorder (Primary Dx) 01/03/2025 Telephone [facility] [address] [place] [phone] Anayeli Heaton NP 12/26/2024 2:20 PM EDT Office Visit [facility] [address] [place] [address] Anayeli Heaton NP Mild episode of recurrent major depressive disorder (Primary Dx); Adenocarcinoma of right lung (HCC); Chronic systolic (congestive) heart failure (HCC); Primary hypertension ; Male erectile dysfunction, unspecified; Tobacco dependence 12/26/2024 Bamboo flowsheet [facility] [address] [place] [id number] Anayeli Heaton NP 12/12/2024 Refill [facility] [address] [place] [phone] Tom Benton MD Chronic obstructive pulmonary disease, unspecified (HCC) 12/12/2024 Refill [facility] [address] [place] [phone] Tom Benton MD Hypokalemia; Essential (primary) hypertension 12/09/2024 Telephone [facility] [address] [place] [phone] Unallocated, Kacey Canada MD from Last 3 Months Family History Medical History Relation Name Comments Cancer Father Heart disease Father Hypertension Father Diabetes Mother Heart disease Mother Hypertension Mother Cancer Sister Diabetes Sister Heart disease Sister Hypertension Sister Relation Name Status Comments Father Mother Sister Social History Tobacco Use Types Packs/Day Years Used Date Smoking Tobacco: Every Day Cigarettes Passive Smoke Exposure: Current Tobacco Cessation:Ready to Q uit: No; Counseling Given: Yes Alcohol Use Standard Drinks/Week Comments Not Currently [...] How often do you attend chur or lutheran services? Never 10/02/2023 Do you belong to any clubs o r organizations such as worship groups, unions, fraternal or athletic groups, or [...] Recorded Patient Health Questionnaire-2 Score 1 02/12/2025 [facility] [place] [facility] Occupat ional Health - Occupational Stress [...] place to sleep or slept in a long-term (including now)? No 10/02/2023 Sex and Gender [...] 12.8 oz) 02/12/2025 1:24 PM EDT Height 167.6 cm (5' 6 ) 09/11/2024 1:3 5 PM EST Body Mass Index 29.02 09/11/2024 1:35 PM EST Plan of Treatment Upcoming Encounters Date Type Department Care Team (Late st Contact Info) Description 04/02/2025 1:20 PM EDT Office Visit [facility] [address] [place] [phone] Anayeli Heaton, CHELLE [address] [place] [phone] 02/18/2026 4:30 PM EDT Office Visit [facility] [address] [place] [address] Anayeli Heaton, CHELLE [address] [place] [address] Health Maintenance Due Date Last Done Comments CT Colonography 1951 FIT 1950 FOBT 1950 Sigmoidoscopy 1950 FIT-DNA 08/24/2023 08/24/2020 Influenza Vaccine (Season Ended) 2025 Pneumococcal Vaccine: 65+ Years (1 of 2 - PCV) 09/11/2025 Postponed from 10/1969 (Patient Refused) Medicare Annual Wellness (AWV) 02/12/2026 02/12/2025, 10/02/2023, 10/02/2023 Colonoscopy 04/18/2032 04/18/2022 Colorectal Cancer Screening 04/18/2032 Procedures Procedure Name Priority Date/Time Associated Diagnosis Comments CT ABD/PEL W IVCON 01/30/2025 2: [address] CHEST W IV CONTRAST 01/30/2025 2:25 PM EDT [facility] EPO SERPL-ACNC Routine 01/30/2025 1: 29 PM EDT [facility] FOLATE SERPL-MCNC Routine 01/30/2025 1:29 PM EDT [facility] FERRITIN SERPL-MCNC Routine 01/30/2025 1:29 PM EDT [facility] VIT B12 SERPL-MCNC Routine 01/30/2025 1:29 PM EDT [facility] IRON+TIBC PNL SERPL Routine 01/30/2025 1:29 PM EDT [facility] COMP METAB 2000 PNL SERPL Routine 01/30/2025 1:29 PM EDT [facility] CBC W AUTO DIFF BLD Routine 01/30/2025 1:29 PM EDT from Last 3 Months Results * CT ABD/PEL W IVCON (01/30/2025 2:25 PM EDT) Anatomical Region Laterality Modality Other 01/30/2025 2:25 PM EDT Narrative 01/31/2025 11:17 AM EDT * * *Final Report* * * DATE OF EXAM: Jan 30 2025 2:25PM [facility] 0530 - CT ABD/PEL W IVCON / [...] reported separately. Localizer images: No additional findings. IMPRESSION: 1. Overall stable appearance of subcapsular [...] any questions regarding this interpretation, please call [phone]. If you are unable to reach us at the number above, please feel free to contact [facility] at [phone]. [id number]^[email or web address]^ACN Procedure Note Radiology, Radiologist, - 01/31/2025 * * *Final Report* * * DATE OF EXAM: Jan 30 2025 2:25PM [facility] 0530 - CT ABD/PEL W IVCON / [...] reported separately. Localizer images: No additional findings. IMPRESSION: 1. Overall stable appearance of subcapsular [...] any questions regarding this interpretation, please call [phone]. If you are unable to reach us at the number above, please feel free to contact [facility] at [phone]. [id number]^[email or web address]^SI^ACN us Generic External Data Provider [facility] Final Result * CT chest w IV contrast (01/30/2025 2:25 PM EDT) Anatomical Region Laterality Modality Body, Chest Computed Tomogra phy 01/30/2025 2:25 PM EDT Narrative 01/31/2025 10:59 AM EDT * * *Final Report* * * DATE OF EXAM: Jan 30 2025 2:25PM [facility] 0539 - CT CHEST W IVCON / [...] reported separately. Localizer images: No additional findings. IMPRESSION: 1. Improved aeration of the right [...] any questions regarding this interpretation, please call [phone]. If you are unable to reach us at the number above, please feel free to contact [facility] at [phone]. [id number]^[email or web address]^ACN Procedure Note Radiology, Radiologist, - 01/31/2025 * * *Final Report* * * DATE OF EXAM: Jan 30 2025 2:25PM [facility] 0539 - CT CHEST W IVCON / [...] reported separately. Localizer images: No additional findings. IMPRESSION: 1. Improved aeration of the right [...] any questions regarding this interpretation, please call [phone]. If you are unable to reach us at the number above, please feel free to contact [facility] at [phone]. [id number]^[email or web address]^ACN us Generic External Data Provider IMG CT PROCEDURES Final Result * [facility] VIT B12 SERPL-MCNC (01/30/2025 1:29 PM EDT) [facility] VIT B12 SERPL-MCNC 277 232 - 1,245 pg/mL [facility] 01/30/2025 1:29 PM EDT 01/30/2025 10:35 PM EDT Narrative CLINISYNC - 01/31/2025 6:18 AM EDT Specimen Type: BLOOD SPECIMEN Ordering Facility: [facility] Address: [address] [place] [address] Original Ordering Provider: LINETTE BAI Generic External Data Provider CLINISYNC F inal Result Performing Organization Address [facility] [place] Number [place] [address] [place], [place] [phone] * [facility] IRON+TIBC PNL SERPL (01/30/2025 1:29 PM EDT) Pathologist [facility] IRON SERPL-MCNC 67 41 - 186 ug/dL CCF CCF TIBC SERPL-MCNC 329 232 - 386 ug/dL C[facility]CF IRON/TIBC SERPL-SRTO 20.4 15.0 - 57.0 % [facility] 01/30/2025 1:29 PM EDT 01/30/2025 10:35 PM EDT Narrative CLINISYNC - 01/31/2025 6:01 AM EDT Specimen Type: BLOOD SPECIMEN Ordering Facility: [facility] Address: [address] [place] [address] Original Ordering Provider: LINETTE BAI Generic External Data Provider CLINISYNC F inal Result Performing Organization Address [facility] de Phone Number CLINISYNC [facility] [address] [phone] * [facility] FOLATE SERPL-MCNC (01/30/2025 1:29 PM EDT) [facility] FOLATE SERPL-MCNC 12.6 >4.7 ng/mL [facility] 01/30/2025 1:29 PM EDT 01/30/2025 10:35 PM EDT Narrative CLINISYNC - 01/31/2025 6:18 AM EDT Specimen Type: BLOOD SPECIMEN Ordering Facility: [facility] Address: [address] [place] [address] Original Ordering Provider: LINETTE BAI Generic External Data Provider CLINISYNC F inal Result Performing Organization Address [facility] Co de Phone Number CLINISYNC [facility] [address] [phone] * [facility] FERRITIN SERPL-MCNC (01/30/2025 1:29 PM EDT) [facility] FERRITIN SERPL-MCNC 187.0 30.3 - 565.7 ng/mL [facility] 01/30/2025 1:29 PM EDT 01/30/2025 10:35 PM EDT Narrative CLINISYNC - 01/31/2025 6:18 AM EDT Specimen Type: BLOOD SPECIMEN Ordering Facility: [facility] Address: [address] [place] [place] [address] Original Ordering Provider: LINETTE BAI Generic External Data Provider CLINISYNC F inal Result Performing Organization Address [facility] de Phone Number TANIAISYNC [facility] [address] [phone] * [facility] EPO SERPL-ACNC (01/30/2025 1:29 PM EDT) [facility] EPO SERPL-ACNC 11.5 2.6 - 18.5 mIU/mL [facility] 01/30/2025 1:29 PM EDT 01/30/2025 11:18 PM EDT Narrative CLINISYNC - 01/31/2025 12:07 PM EDT Specimen Type: BLOOD SPECIMEN Ordering Facility: [facility] Address: [address] [place] [address] Original Ordering Provider: LINETTE BAI us Generic External Data Provider VERO pruitt Result VERO WHITNEY [address] [facility] [address] [place] [address] * (ABNORMAL) [facility] CBC W AUTO DIFF BLD (01/30/2025 1:29 PM EDT) [facility] WBC # BLD AUTO 8.67 3.70 - 11.00 k/uL [facility] CCF RBC # BLD AUTO 4.27 4.20 - 6.00 m/uL C[facility] HGB BLD-MCNC 13.2 13.0 - 17.0 g/dL [facility] C[facility] HCT VFR BLD AUTO 39.7 39.0 - 51.0 % [facility] CCF MCV RBC AUTO 93.0 80.0 - 100.0 fL [facility]CF CCF MCH RBC QN AUTO 30.9 26.0 - 34.0 pg CCF CCF MCHC RBC AUTO-MCNC 33.2 30.5 - 36.0 g/dL [facility] CCF RDW RBC-RTO 13.5 11.5 - 15.0 % [facility]CF CCF PLATELET # BLD AUTO 225 150 - 400 k/uL C[facility] CCF PMV BLD AUTO 9.1 9.0 - 12.7 fL CCF [facility] NEUTROPHILS/LEUK NFR BLD AUTO 58.6 % [facility] CCF NEUTROPHILS # BLD AUTO 5.08 1.45 - 7.50 k/uL CCF CCF LYMPHOCYTES/LEUK NFR BLD AUTO 23.4 % [facility] CCF LYMPHOCYTES # BLD AUTO 2.03 1.00 - 4.00 k/uL C[facility] CCF MONOCYTES/LEUK NFR BLD AUTO 13.5 % [facility] CCF MONOCYTES # BLD AUTO 1.17(H) <0.87 k/uL [facility] CCF EOSINOPHIL/LEUK NFR BLD AUTO 3.2 % [facility] CCF EOSINOPHIL # BLD AUTO 0.28 <0.46 k/uL CCF CCF BASOPHILS/LEUK NFR BLD AUTO 0.6 % [facility] CCF BASOPHILS # BLD AUTO 0.05 <0.11 k/uL [facility] IMM GRANULOCYTES/LEUK NFR BLD AUTO 0.7 % [facility] IMM GRANULOCYTES # BLD AUTO 0.06 <0.10 k/uL CCF CCF NRBC/100 WBC BLD-RTO 0.0 /100 WBC CCF CCF NRBC # BLD AUTO <0.01 <0.01 k/uL [facility] DIFFERENTIAL METHOD BLD Auto [facility] 01/30/2025 1:29 PM EDT 01/30/2025 1:37 PM EDT Narrative CLINISYNC - 01/30/2025 1:40 PM EDT Specimen Type: BLOOD SPECIMEN Ordering Facility: [facility] Address: [address] [place] [place] [address] Original Ordering Provider: LINETTE BAI us Generic External Data Provider CLINISYNC F inal Result Performing Organization Address City/State/[facility] Co de Phone Number CLINISYNC [facility] [address] [place] [address] * (ABNORMAL) [facility] COMP METAB 2000 PNL SERPL (01/30/2025 1:29 PM EDT) [facility] PROT SERPL-MCNC 7.1 6.3 - 8.0 g/dL CCF CCF ALBUMIN SERPL-MCNC 4.3 3.9 - 4.9 g/dL CCF CCF CALCIUM SERPL-MCNC 9.4 8.5 - 10.2 mg/dL CCF CCF BILIRUB SERPL-MCNC 0.3 0.2 - 1.3 mg/dL CCF CCF ALP SERPL-CCNC 95 38 - 113 U/L CCF C[facility] AST SERPL-CCNC 14 14 - 40 U/L CCF CCF ALT SERPL-CCNC 8(L) 10 - 54 U/L CCF CCF GLUCOSE SERPL-MCNC 85 74 - 99 mg/dL C[facility] Comment: The [place] Diabetes Association (ADA) provides guidance for cutoff [...] Standards of Medical Care in Diabetes 2016, [place] [employer]. Diabetes Care. 2016.39(Suppl 1). [facility] BUN SERPL-MCNC 16 9 - 24 mg/dL C[facility] CREAT SERPL-MCNC 0.86 0.73 - 1.22 mg/dL CCF CCF SODIUM SERPL-SCNC 138 136 - 144 mmol/L CCF CCF POTASSIUM SERPL-SCNC 3.8 3.7 - 5.1 mmol/L CCF CCF CHLORIDE SERPL-SCNC 105 98 - 107 mmol/L CCF CCF CO2 SERPL-SCNC 25 22 - 30 mmol/L CCF CCF ANION GAP SERPL-SCNC 8 8 - 15 mmol/L CCF CCF CREATININE + EGFR PNL SERPLBLD 91 >=60 mL/min/1.7 3m??? CCF Comment:Estimated Glomerular Filtration Rate (eGFR) is calculated using the 2020 CKD-EPI creatinine equation. This equation utilizes serum creatinine, sex, and age as parameters. The creatinine assay has traceable calibration to isotope dilution- mass spectrometry. Refer to KDIGO guidelines for clinical interpretation. In patients with unstable renal function, e.g. those with acute kidney injury, the eGFR may not accurately reflect actual GFR. 01/30/2025 1:29 PM EDT 01/30/2025 1:37 PM EDT Narrative VERO - 01/30/2025 2:02 PM EDT Specimen Type: BLOOD SPECIMEN Ordering Facility: [facility] Address: [address] [place] [id number] Original Ordering Provider: LINETTE BAI us Generic External Data Provider VERO pruitt Result CLINVICKY [facility] [address] [place] [address] from Last 3 Months Insurance MEDICARE MEDICAID [place] Care Teams Clipper Machine Operator Relationship Specialty Start Date End Date Tom Benton MD [address] [place] [address] PCP - General Family Medicine 07/04/24 Margaret Vasques NP Nurse Practitioner Family Medicine 04/16/24
--- OUTSIDE RECORDS SUMMARY | 2025-02-21 13:02 | XMS_ITS | Clinical Summary ---
Author Organization [facility] Address [address] [place] [address] Care Team Providers Care Disk Operator Name Role Phone Shaikh ADILENE Etienne Primary Care Provider [phone] Allergies No known active allergies Medications albuterol 90 mcg/actuation inhaler INHALE 2 PUFFS BY MOUTH EVERY 4 TO 6 HOURS NEEDED SHORTNESS OF BREATH and FOR WHEEZING Active amLODIPine (Norvasc) 10 mg tablet Take 1 tablet by mouth in the morning. Active aspirin 81 mg EC tablet Take 1 tablet every day by oral route. Active atorvastatin (Lipitor) 40 mg tablet Take 1 tablet by mouth at bedtime. Active busPIRone (Buspar) 15 mg tablet Take 1 tablet by mouth in the morning, afternoon, and at bedtime. Active clopidogrel (Plavix) 75 mg tablet Take 1 tablet by mouth in the morning. Active furosemide (Lasix) 40 mg tablet Take 1 tablet by mouth in the morning. Active nitroglycerin (Nitrostat) 0.4 mg SL tablet DISSOLVE 1 TABLET UNDER THE TONGUE NEEDED FOR CHEST PAIN- MAY REPEAT EVERY 5 MINUTES IF NEEDED ( MAX 3 DOSES.- IF NO RELIEF CALL 911) Active potassium chloride CR (Klor-Con M10) 10 mEq ER tablet Take 1 tablet by mouth in the morning. Active sildenafil (Viagra) 25 mg tablet TAKE 1 TABLET BY MOUTH 30 MINUTES BEFORE sexual activity Active fluticasone-umec lidin-vilanter (Trelegy Ellipta) 100-62.5-25 mcg blister with device Inhale. Active zolpidem (Ambien) 10 mg tablet Take 10 mg by mouth in the morning. 12/08/19 23 Active albuterol 2.5 mg /3 mL (0.083 %) nebulizer solution Take 2.5 mg by nebulization every 6 (six) hours if needed for wheezing. Active Linzess 145 mcg capsule TAKE 1 CAPSULE BY MOUTH IN THE MORNING BEFORE MEALS DO NOT CRUSH OR CHEW 10/02/19 24 Active spironolactone (Aldactone) 25 mg tabletIndication s:Edema, unspecified type Take 1 tablet (25 mg) by mouth in the morning. 90 tablet 3 11/14/19 25 026 Active metoprolol succinate XL (Toprol-XL) 100 mg 24 hr tabletIndication s:Benign hypertensive heart disease with heart failure (CMS/HCC) Take 1 tablet (100 mg) by mouth once daily as directed. 90 tablet 3 02/11/20 25 Active sacubitril-valsa rtan (Entresto) 97-103 mg tabletIndication s:Heart failure with improved ejection fraction (HFimpEF) (CMS/HCC) Take 1 tablet by mouth two times daily. 60 tablet 11 02/11/20 25 Active sacubitril-valsa rtan (Entresto) 97-103 mg tabletIndication s:Heart failure with improved ejection fraction (HFimpEF) (CMS/HCC) Take 1 tablet by mouth two times daily. 60 tablet 11 04/03/20 24 025 Discontin ued(Reord er) metoprolol succinate XL (Toprol-XL) 100 mg 24 hr tabletIndication s:Benign hypertensive heart disease with heart failure (CMS/HCC) Take 1 tablet (100 mg) by mouth once daily as directed. 90 tablet 1 01/11/20 25 025 Discontin ued(Reord er) Active Problems Problem Noted Date Diagnosed Date Constipation 04/03/2024 GERD (gastroesophageal reflux disease) Head trauma 02/26/2024 Overview (04/03/2024): Last Assessment & Plan: Fell at home, no LOC but reports head trauma and has mild headache since then. On ASA, plavix. Will order CTH. No neurological symptoms. Left leg pain 01/01/2024 Overview (04/03/2024): Last Assessment & Plan: Left leg pain x 3 weeks, started after hitting leg against bed frame, worsened =last Sat after wall. Has not been able to walk since then. Point tenderness- suspect fx. C/w NWB - ordered XR Unable to use NSAIDS due to CKD, CAD and CHF. Tylenol is not helping. Will order oxycodone as needed for acute pain Personal history of colonic polyps 10/06/2023 10/06/2023 Positive colorectal cancer screening using Colog uard test 10/06/2023 10/06/2023 Adenocarcinoma of right lung 10/02/202310/2023 Overview (10/06/2023): Last Assessment & Plan: S/p lobectomy in 2019. Suspicions PET scan with positive cologuard in large bowel - negative Colonoscopy 04/25 Patient continues to smoke. Encouraged smoking cessation. Following Oncology. Chronic idiopathic constipation 10/02/2023 10/06/2023 Overview (10/06/2023): Last Assessment & Plan: Chronic constipation, ongoing for 7-8 months. Bowel [...] OTC medicaitons for constipation without any benefit. First degree atrioventricular block 10/02/2023 10/06/2023 Ischemic cardiomyopathy 10/02/2023 10/06/19 Medicare annual wellness visit, subsequent 10/0210/06/2023 Overview (10/06/2023): Last Assessment & Plan: Patient here for Medicare Wellness. Reviewed medical, surgical and social history. Reviewed medication list. Patient screened for depression, fall risk, cognitive impairment. Patient provided appropriate education on chronic medical conditions, prescription medications. Patient's health related questions and concerns addressed and answered. Upto date on Colon cancer screening. Patient recommended to get Influenza and Pneumonia vaccine. Tobacco dependence 10/02/2023 10/06/2023 Overview (10/06/2023): Last Assessment & Plan: Patient counseled on smoking/tobacco cessation. Patient educated on harmful effects of smoking cigarettes/tobacco including increased risk of cardiovascular diseases, chronic lung disease and multiple cancers. Dyspnea on exertion 08/18/2022 Panlobular emphysema 07/21/2022 Chronic diastolic heart failure 06/20/2022 History of aortic valve repl acement with bioprosthetic valve 06/20/2022 History of coronary artery bypass graft 06/20/20 22 Depression 01/05/2022 Overview (01/02/2023): Last Assessment & Plan: Assessment: managed with med, stable Last Assessment & Plan: Assessment: managed with med, stable HLD (hyperlipidemia) 01/05/2022 Overview (01/02/2023): Last Assessment & Plan: Assessment: managed with med, stable Last Assessment & Plan: Assessment: managed with med, stable HTN (hypertension) 01/05/2022 Overview (01/02/2023): Last Assessment & Plan: Assessment: managed with med, stable 01/05/2022 127/59 10/29/2021 119/56 Last Assessment & Plan: Assessment: managed with med, stable 01/05/2022 127/59 10/29/2021 119/56 Lung nodules 01/05/2022 Smoker 01/05/2022 Overview (01/02/2023): Last Assessment & Plan: Assessment: 1ppd for 40 years Last Assessment & Plan: Assessment: 1ppd for 40 years Presence of prosthetic heart valve 01/05/2022 10/06/2023 Overview (10/06/2023): Last Assessment & Plan: Assessment: s/p 06/2020 Cancer of trachea, bronchus, and lung 10/29/2021 Overview (01/02/2023): Last Assessment & Plan: Assessment: s/p lobectomy September 2020, stable Follows up with PCP Last Assessment & Plan: Assessment: s/p lobectomy September 2020, stable Follows up with PCP Insomnia 07/07/2020 Carotid artery stenosis 06/19/2020 Aneurysm of thoracic aorta 06/18/2020 Aortic valve stenosis 06/18/2020 Overview (06/20/2022): Status post Aortic valve replacement with 25 mm Chan Magna ease pericardial valve Left ventricular thrombus 06/18/2020 Overview (06/20/2022): Resolved per Dr. Lisa-anticoagulation was discontinued Chronic obstructive lung disease 06/17/2020 Coronary arteriosclerosis 06/17/2020 Lung mass 06/17/2020 Systolic heart failure 06/17/2020 Encounters Date Type Department Care Team Description 02/10/2025 [facility] at [address] [phone] Amanda Lizarraga MA Benign hypertensive heart disease with heart failure (CMS/HCC); Heart failure with improved ejection fraction (HFimpEF) (CMS/HCC) 01/10/2025 Refill [facility] [address] [place] [phone] Jaleesa Lima MA Benign hypertensive heart disease with heart failure ([facility]) 12/26/2024 Telephone [facility] [address] [facility] [place] [phone] Jaleesa Lima MA from Last 3 Months Family History Medical History Relation Name Comments Heart disease Father Diabetes Mother Heart disease Mother Coronary artery disease Sister Relation Name Status Comments Father Mother Sister Social History Tobacco Use Types Packs/Day Years Used Date Smoking Tobacco: Every Day Cigarettes Smokeless Tobacco: Never Tobacco Cessation:Ready to Q uit: Not Asked; Counseling Given: Not Answered Alcohol Use Standard Drinks/Week Comments Yes 0 (1 standard drink = 0.6 oz pur e alcohol) occasional [place] Safety & Environment Answer Date Rec orded Fear of Current or Ex-Partner Not on file Emotionally Abused Not on file 10/26/2023 Physically Abused Not on file 10/26/2023 Sexually Abused Not on file 10/26/2023 Physically or Sexually Abused Not on file Sex and Gender Information Value Date Recorded Sex Assigned at Not on file Legal Sex Male 12:31 AM EDT Gender Identity Not on file Sexual Orientation Not on file Last Filed Vital Signs Vital Sign Reading Time Taken Comments Blood Pressure 130/86 04/03/2024 10:54 AM EDT Pulse 53 04/03/2024 10:54 AM EDT Temperature 35.8 C (96.4 F) 10/12/2020 11:35 AM EST Respiratory Rate 16 10/12/2020 11:35 AM EST Oxygen Saturation 96% 04/03/2024 10:54 AM EDT Inhaled Oxygen Concentration - - Weight 87.1 kg (192 lb) 04/03/2024 10:54 AM EDT Height 172.7 cm (5' 8 ) 04/03/2024 10:54 AM EDT Body Mass Index 29.19 04/03/2024 10:54 AM EDT Plan of Treatment Upcoming Encounters Date Type Department Care Team (Late st Contact Info) Description 03/31/2025 1:00 PM EDT Office Visit [facility] at [facility] [address] [place] [address] Jj Ambrosio MD [address] [facility] [place] [phone] Health Maintenance Due Date Last Done Comments CT Colonography 1950 Colonoscopy 1950 FIT-DNA 1950 FOBT 1950 Medicare Annual Wellness (AWV) 1950 Sigmoidoscopy 1950 Depression Screening 1963 Pneumococcal Vaccine: 50+ Ye ars (1 of 2 - PCV) 1970 Adult Tetanus 1973 Zoster Vaccines (1 of 2) 2001 Fall Risk Screening 2016 Colorectal Cancer Screening 08/24/2021 FIT 08/24/2021 08/24/2020 COVID-19 Vaccine (2023-2 5 season) 2024 Influenza Vaccine (Season Ended) 2025 HIB Vaccines Aged Out No longer eligi ble based on patient's age to complete this topic HPV Vaccines Aged Out No longer eligi ble based on patient's age to complete this topic IPV Vaccines Aged Out No longer eligi ble based on patient's age to complete this topic Meningococcal B Vaccine Aged Out No l onger eligible based on patient's age to complete this topic Meningococcal Vaccine Aged Out No mable srinath eligible based on patient's age to complete this topic Rotavirus Vaccines Aged Out No longer eligible based on patient's age to complete this topic Insurance MEDICARE [place] Care Teams Disk Operator Relationship Specialty Start Date End Date Shaikh Etienne MD [address] [place] [address] PCP - General Family Medicine 05/24/22
--- OUTSIDE RECORDS SUMMARY | 2025-02-21 13:02 | XMS_ITS | Referral Summary ---
Author Organization [facility] Address [address] [place] [address] Care Team Providers Care Quality Assurance Engineer Name Role Phone Shaikh ADILENE Etienne Primary Care Provider [phone] Encounters Date Type Department Care Team Description 02/10/2025 Refill [facility] [address] [place] [phone] Amanda Lizarraga MA Benign hypertensive heart disease with heart failure (CMS/HCC); Heart failure with improved ejection fraction (HFimpEF) (CMS/HCC) 01/10/2025 Refill [facility] [address] [place] [address] Jaleesa Lima MA Benign hypertensive heart disease with heart failure ([facility]/HCC) 12/26/2024 Telephone [facility] [address] [place] [address] Jaleesa Lima MA from Last 3 Months Allergies No known active allergies Medications albuterol [...] block 10/02/2023 10/06/2023 Ischemic cardiomyopathy 10/02/2023 10/06/19 24 Medicare annual wellness visit, subsequent 10/0210/06/2023 Overview [...] Lung mass 06/17/2020 Systolic heart failure 06/17/2020 Social History Tobacco Use Types Packs/Day Years [...] Description 03/31/2025 1:00 PM EDT Office Visit [facility] [address] [place] [phone] Jj Ambrosio MD [address] [facility] [address] [facility] [phone] Insurance [place] Care Teams Quality Assurance Engineer Relationship Specialty Start Date End Date Shaikh Etienne MD [address] [place] [address] PCP - General Family Medicine 05/24/22
--- OUTSIDE RECORDS SUMMARY | 2025-02-21 13:02 | XMS_ITS | Encounter Summary ---
Author Organization [facility] Address [address] [facility] [place] [address] Care Team Providers Care Help Desk Operator Name Role Phone Shaikh ADILENE Etienne Primary Care Provider [phone] Tom Benton MD Primary Care Provider [phone] Margaret Vasques RESIDENTIAL APPLIANCE REPAIR TECHNICIAN Unavailable [phone] Unallocated, [facility] Provider Primary Care Provi alia Tom Benton MD Primary Care Provider [phone] Encounter Details Date Type Department Care Team (Late st Contact Info) Description 03/22/2024 Clinisync Result Encounter [facility] External Department Unsolicited Provider, Generic External Data Social History Tobacco Use Types Packs/Day Years [...] often do you attend chur ch or protestant services? Never 10/02/2023 Do you belong to any clubs o r organizations such as religion groups, unions, fraternal or athletic groups, or [...] Answer Date Recorded Patient Health Questionnaire-2 Score 0 02/26/2024 [facility]ational Stress Questionnaire Answer [...] place to sleep or slept in a fpc (including now)? No 10/02/2023 Sex and Gender [...] Office Visit [facility] [address] [place] [address] Anayeli Heaton NP [address] [place] [phone] 02/18/2026 4:30 PM EDT Office Visit [facility] [address] [place] [address] Anayeli Heaton NP [address] [place] [phone] documented as of this encounter Procedures Procedure Name Priority Date/Time Associated Diagnosis Comments CA ECHO DOPPLER COMPLETE 03/22/2024 4:57 PM EDT documented in this encounter Results * CA ECHO DOPPLER COMPLETE (03/22/2024 4:57 PM EDT) Anatomical Region Laterality Modality Other 03/22/2024 4:57 PM EDT Narrative 03/22/2024 4:58 PM EDT [facility] [place] [id number] Cardiology Report Signed Patient: DOC VILLAGRAN MR#: [id number] : 1950 Acct:[id number] Age/Sex: 74 / M ADM Date: 03/22/24 Loc: CARD Attending Dr: SYDNIE AYOUB Ordering Physician: SYDNIE AYOUB Date of Service: 03/22/24 Procedure(s): CA echo doppler complete Accession Number(s): [id number] cc: Shaikh Sae Etienne; SYDNIE AYOUB Patient Name: DOC VILLAGRAN MR#: [id number] : 1950 Exam Date: 03/22/2024 Ordering Doctor: DR SYDNIE AYOUB M.D. ECHOCARDIOGRAM REPORT PROCEDURE: CA ECHO DOPPLER COMPLETE INDICATIONS: Heart failure with reduced ejection fraction, CABGx3, aortic valve replacement, smoker, hypertension COMPARISON: None. DESCRIPTION: COMPLETE ECHOCARDIOGRAM Real-time transthoracic echocardiography with 2D, M-mode, spectral and color flow Doppler performed. QUALITY: Technical quality was good. LEFT VENTRICLE: Normal chamber size. Mild concentric left ventricular hypertrophy. LV EF: Global left ventricular systolic function is hyperdynamic; visually estimated ejection fraction is 65-70%. No significant wall motion abnormality seen. DIASTOLIC: Normal diastolic function. ATRIAL SEPTUM: Visually appears intact. LEFT ATRIUM: Normal chamber size. RIGHT ATRIUM: Normal chamber size. RIGHT VENTRICLE: Normal chamber size. Normal right ventricular systolic function. TRICUSPID VALVE: Normal mobility and thickness. No stenosis with trivial regurgitation. No evidence of pulmonary hypertension. RVSP 22 mmHg MITRAL VALVE: Normal mobility and thickness. No evidence of mitral valve stenosis. There is no mitral annular calcification. Mild mitral regurgitation. AORTIC VALVE: Bio-Prosthetic valve appears well seated in the aortic position with normal Doppler flow. No aortic regurgitation. AORTIC ROOT: Normal diameter and appearance. Ascending aorta is mildly dilated (4.1 cm). PULMONIC VALVE: Normal thickness and mobility. No stenosis. No regurgitation. PERICARDIUM: Anterior free space; trivial effusion versus fat pad. IVC: Collapses with inspirations. IVC is normal in size. CONCLUSION: 1. Global left ventricular systolic function is hyperdynamic; visually estimated ejection fraction is 65 to 70% 2. Right ventricle is normal in size and systolic function 3. Mild left ventricular hypertrophy 4. Normal diastolic function 5. The left atrium is normal in size 6. Mild mitral regurgitation 7. A bioprosthetic valve is seen in the aortic position with normal Doppler flow 8. The ascending aorta is mildly dilated 9. Anterior free space; trivial effusion versus fat pad Adult Echocardiography Procedure Report Left Ventricle LVEDD (3.7 - 5.6 cm): 4.72 cm LVESD (2.2 - 4.0 cm): 4.07 cm LVIVS thickness (0.6 - 1.2 cm): 1.35 cm LVPW thickness (0.5 - 1.0 cm): 1.18 cm e': 0.12 m/s E - e': 6.80 LVOT Max Gradient: 1.63 mm[Hg] LVOT Area (cm2): 0.64 m/s Peak Velocity (LVOT): 0.64 m/s Mean Velocity (LVOT): 0.45 m/s LVOT Diameter 2.31 cm Left Atrium LA Volume Index (2D A2C): 32.49 ml/m2 Left Atrium Systolic Dimension: 4.59 cm Mitral Valve MV E to A Ratio: 1.15 Mitral Valve A-Wave Peak Velocity: 0.72 m/s Mitral Valve E-Wave Peak Velocity: 0.83 m/s Right Ventricle Aorta AO Root Diam: 3.96 cm Ascending Ao Diam: 4.13 cm Aortic Valve AoV Area (Peak Contreras): 1.37 cm2, 1.37 cm2 AoV Area (VTI): 1.48 cm2, 1.48 cm2 Peak Velocity(Antegrade Flow): 1.96 m/s Peak Gradient(Antegrade Flow): 15.38 mm[Hg] Mean Velocity(Antegrade Flow): 1.36 m/s Mean Gradient(Antegrade Flow): 8.45 mm[Hg] Velocity Time Integral: 45.15 cm Tricuspid Valve Peak Velocity (Regurgitant Flow): 2.21 m/s Pulmonic Valve Mean Gradient: 1.86 mm[Hg], 1.86 mm[Hg] Mean Velocity: 0.63 m/s, 0.62 m/s Peak Gradient: 3.47 mm[Hg], 3.74 mm[Hg] Right Atrium Right Atrium Systolic Pressure: 37.41 ml, 37.41 ml Dictated by: Pool Canales M.D. on 03/22/2024 at 16:52 Approved by: Pool Canales M.D. on 03/22/2024 at 16:57 Dictated By: Pool Canales M.D. Signed By: 03/22/241657 DD/ 56 TD/TT: Cattle Dipper: Procedure Note Radiology, Radiologist, MD - 03/22/2024 [place] [address] Cardiology Report Signed Patient: DOC VILLAGRANMR#: [id number] : 1950cct:[id number] Age/Sex: 74 / MADM Date: 03/22/24 Loc: CARD Attending Dr: SYDNIE AYOUB Ordering Physician: SYDNIE AYOUB Date of Service: 03/22/24 Procedure(s): CA echo doppler complete Accession Number(s): [id number] cc: Shaikh Sae Etienne; SYDNIE AYOUB Patient Name: DOC VILLAGRAN MR#: [id number] : 1950 Exam Date: 03/22/2024 Ordering Doctor: DR SYDNIE AYOUB M.D. ECHOCARDIOGRAM REPORT PROCEDURE: CA ECHO DOPPLER COMPLETE INDICATIONS: Heart failure with reduced ejection fraction, CABGx3,aortic valve replacement, smoker, hypertension COMPARISON: None. DESCRIPTION: COMPLETE ECHOCARDIOGRAM Real-time transthoracic echocardiography with 2D, M-mode, spectral and color flow Dopplerperformed. QUALITY: Technical quality was good. LEFT VENTRICLE: Normal chamber size. Mild concentric left ventricular hypertrophy. LV EF: Global left ventricular systolic function is hyperdynamic;visually estimated ejection fraction is 65-70%. No significant wall motionabnormality seen. DIASTOLIC: Normal diastolic function. ATRIAL SEPTUM: Visually appears intact. LEFT ATRIUM: Normal chamber size. RIGHT ATRIUM: Normal chamber size. RIGHT VENTRICLE: Normal chamber size. Normal right ventricularsystolic function. TRICUSPID VALVE: Normal mobility and thickness. No stenosis withtrivial regurgitation. No evidence of pulmonary hypertension. RVSP 22 mmHg MITRAL VALVE: Normal mobility and thickness. No evidence of mitralvalve stenosis. There is no mitral annular calcification. Mild mitral regurgitation. AORTIC VALVE: Bio-Prosthetic valve appears well seated in the aortic position with normal Doppler flow. No aortic regurgitation. AORTIC ROOT: Normal diameter and appearance. Ascending aorta is mildly dilated (4.1 cm). PULMONIC VALVE: Normal thickness and mobility. No stenosis. No regurgitation. PERICARDIUM: Anterior free space; trivial effusion versus fat pad. IVC: Collapses with inspirations. IVC is normal in size. CONCLUSION: 1. Global left ventricular systolic function is hyperdynamic; visually estimated ejection fraction is 65 to 70% 2. Right ventricle is normal in size and systolic function 3. Mild left ventricular hypertrophy 4. Normal diastolic function 5. The left atrium is normal in size 6. Mild mitral regurgitation 7. A bioprosthetic valve is seen in the aortic position with normalDoppler flow 8. The ascending aorta is mildly dilated 9. Anterior free space; trivial effusion versus fat pad Adult Echocardiography Procedure Report Left Ventricle LVEDD (3.7 - 5.6 cm): 4.72 cm LVESD (2.2 - 4.0 cm): 4.07 cm LVIVS thickness (0.6 - 1.2 cm): 1.35 cm LVPW thickness (0.5 - 1.0 cm): 1.18 cm e': 0.12 m/s E - e': 6.80 LVOT Max Gradient: 1.63 mm[Hg] LVOT Area (cm2): 0.64 m/s Peak Velocity (LVOT): 0.64 m/s Mean Velocity (LVOT): 0.45 m/s LVOT Diameter 2.31 cm Left Atrium LA Volume Index (2D A2C): 32.49 ml/m2 Left Atrium Systolic Dimension: 4.59 cm Mitral Valve MV E to A Ratio: 1.15 Mitral Valve A-Wave Peak Velocity: 0.72 m/s Mitral Valve E-Wave Peak Velocity: 0.83 m/s Right Ventricle Aorta AO Root Diam: 3.96 cm Ascending Ao Diam: 4.13 cm Aortic Valve AoV Area (Peak Contreras): 1.37 cm2, 1.37 cm2 AoV Area (VTI): 1.48 cm2, 1.48 cm2 Peak Velocity(Antegrade Flow): 1.96 m/s Peak Gradient(Antegrade Flow): 15.38 mm[Hg] Mean Velocity(Antegrade Flow): 1.36 m/s Mean Gradient(Antegrade Flow): 8.45 mm[Hg] Velocity Time Integral: 45.15 cm Tricuspid Valve Peak Velocity (Regurgitant Flow): 2.21 m/s Pulmonic Valve Mean Gradient: 1.86 mm[Hg], 1.86 mm[Hg] Mean Velocity: 0.63 m/s, 0.62 m/s Peak Gradient: 3.47 mm[Hg], 3.74 mm[Hg] Right Atrium Right Atrium Systolic Pressure: 37.41 ml, 37.41 ml Dictated by: Pool Canales M.D. on 03/22/2024 at 16:52 Approved by: Pool Canales M.D. on 03/22/2024 at 16:57 Dictated By: Pool Canales M.D. Signed By:03/22/248 DD/ TD/TT: Cattle Dipper: us Generic External Data Provider [facility] Final Result documented in this encounter Visit Diagnoses Not on filedocumented in this encounter Additional Health Concerns Assessment Noted Time PHQ-9 Depression Total Score: 4 10/02/19 24 1:27 PM EST documented as of this encounter Care Teams Help Desk Operator Relationship Specialty Start Date End Date Shaikh Etienne MD [address] [place] [phone] PCP - General Internal Medicine 09/22/23 04/15/24 Tom Benton MD [address] [place] [phone] PCP - General Family Medicine 04/16/24 06/24/24 Unallocated, Nomkristy Canada MD [address] [place] [address] PCP - General Family Medicine 06/25/24 07/03/24 Tom Benton MD [address] [place] [phone] PCP - General Family Medicine 07/04/24 Margaret Vasques NP [address] [place] [phone] Nurse Practitioner Family Medicine 04/16/24 documented as of this encounter
--- OUTSIDE RECORDS SUMMARY | 2025-02-21 13:02 | XMS_ITS | Encounter Summary ---
Author Organization [facility] Address [address] [place] [address] Care Team Providers Care Mud Jack Nozzleman Name Role Phone Margaret Vasques FOOD ANALYST Unavailable [phone] Tom Benton MD Primary Care Provider [phone] Encounter Details Date Type Department Care Team (Late st Contact Info) Description 07/19/2024 Clinisync Result Encounter [facility] External Department Unsolicited [...] often do you attend chur ch or episcopalian services? Never 10/02/2023 Do you belong to any clubs o r organizations such as caodaism groups, unions, fraternal or athletic groups, or [...] Recorded Patient Health Questionnaire-2 Score 0 02/26/2024 [facility] - Occupational [...] place to sleep or slept in a custodial (including now)? No 10/02/2023 Sex and Gender [...] Visit [facility] [address] [place] [address] Anayeli Heaton NP [address] [place] [phone] 02/18/2026 4:30 PM EDT Office Visit [facility] [address] [place] [address] Anayeli Heaton NP [address] [place] [phone] documented as of this encounter Procedures Procedure Name Priority Date/Time Associated Diagnosis Comments CT ABD/PEL W IVCON 07/19/2024 12 :28 PM EST documented in this encounter Results * CT ABD/PEL W IVCON (07/19/2024 12:28 PM EST) Anatomical Region Laterality Modality Other 07/19/2024 12:2 8 PM EST Narrative 07/22/2024 11:18 AM EST * * *Final Report* * * DATE OF EXAM: Jul 19 2024 12:28PM [facility] 0530 - CT ABD/PEL W IVCON / PROCEDURE REASON: multiple diagnoses * * * * Physician Interpretation * * * * RESULT: EXAMINATION: CT ABDOMEN AND PELVIS WITH IV CONTRAST CLINICAL HISTORY: Lung carcinoma TECHNIQUE: CT of the abdomen and pelvis was performed using standard technique, scanning from just above the dome of the diaphragm to the symphysis pubis. MQ: CTAP_3 Contrast: IV: 100 ml of Omnipaque 350 Oral: 500 ml of Omni 240 10-25ml diluted with water CT Radiation dose: Integrated Dose-length product (DLP) for this visit = 970 mGy*cm. CT Dose Reduction Employed: Automated exposure control (AEC) COMPARISON: 02/23/2024. RESULT: Liver: 1.6 x 0.6 cm subcapsular hepatic hypodensity at the dome is less conspicuous from prior examination at which time it measured approximately 2.1 x 0.8 cm. Biliary Tract: No bile duct dilation. The gallbladder appears unremarkable. Spleen: No splenomegaly. No mass. Pancreas: No mass or ductal dilatation. Adrenal glands: No mass. Kidneys: No enhancing mass or hydronephrosis. GI Tract: No bowel wall thickening or dilation. Lymph nodes: No substantial abdominal or pelvic lymphadenopathy is identified. Mesentery/Peritoneum: No ascites or mass. Retroperitoneum: No mass. Vasculature: - Abdominal aorta and iliac arteries: Atherosclerotic calcifications without aneurysm. Ectasia of the right common iliac artery measuring 1.6 cm in maximal diameter, stable. - Celiac and SMA: Patent. - Portal venous system (SMV, splenic vein, portal vein and branches): Patent. - Hepatic veins: Patent. Pelvis: Moderate, diffuse bladder wall thickening, and the basis of outlet obstruction, stable. Moderate enlargement of the prostate gland, unchanged. No free fluid. No substantial inguinal adenopathy. Large right inguinal hernia, unchanged. Bones/Soft Tissues: Degenerative change within the lumbar spine is appreciated. Sclerotic focus posterior right ilium likely relates to a bone island, unchanged. Lower Thorax: A CT examination of the chest has been performed concurrently and will be dictated separately. Dock Operator (topogram) images: No additional findings. IMPRESSION: 1. 1.6 cm subcapsular hepatic hypodensity appears less conspicuous from prior study of 02/23/2024. 2. Otherwise, stable CT examination of the abdomen and pelvis. No substantial intra-abdominal or pelvic lymphadenopathy is identified. Transcribe Date/Time: Jul 22 2024 9:31A Dictated by: LORRIE KAPADIA MD This examination was interpreted and the report reviewed and electronically signed by: LORRIE KAPADIA MD on Jul 22 2024 11:16AM EST Thank you for allowing us to participate in the care of your patient. Should there be any questions regarding this interpretation, please call [phone]. If you are unable to reach us at the number above, please feel free to contact [facility] at [phone]. [id number] Procedure Note Radiology, Radiologist, - 07/22/2024 * * *Final Report* * * DATE OF EXAM: Jul 19 2024 12:28PM [facility] 0530 - CT ABD/PEL W IVCON / PROCEDURE REASON: multiple diagnoses * * * * Physician Interpretation * * * * RESULT: EXAMINATION: CT ABDOMEN AND PELVIS WITH IV CONTRAST CLINICAL HISTORY: Lung carcinoma TECHNIQUE: CT of the abdomen and pelvis was performed using standard technique, scanning from just above the dome of the diaphragm to the symphysis pubis. MQ: CTAP_3 Contrast: IV: 100 ml of Omnipaque 350 Oral: 500 ml of Omni 240 10-25ml diluted with water CT Radiation dose: Integrated Dose-length product (DLP) for this visit = 970 mGy*cm. CT Dose Reduction Employed: Automated exposure control (AEC) COMPARISON: 02/23/2024. RESULT: Liver: 1.6 x 0.6 cm subcapsular hepatic hypodensity at the dome is less conspicuous from prior examination at which time it measured approximately 2.1 x 0.8 cm. Biliary Tract: No bile duct dilation. The gallbladder appears unremarkable. Spleen: No splenomegaly. No mass. Pancreas: No mass or ductal dilatation. Adrenal glands: No mass. Kidneys: No enhancing mass or hydronephrosis. GI Tract: No bowel wall thickening or dilation. Lymph nodes: No substantial abdominal or pelvic lymphadenopathy is identified. Mesentery/Peritoneum: No ascites or mass. Retroperitoneum: No mass. Vasculature: - Abdominal aorta and iliac arteries: Atherosclerotic calcifications without aneurysm. Ectasia of the right common iliac artery measuring 1.6 cm in maximal diameter, stable. - Celiac and SMA: Patent. - Portal venous system (SMV, splenic vein, portal vein and branches): Patent. - Hepatic veins: Patent. Pelvis: Moderate, diffuse bladder wall thickening, and the basis of outlet obstruction, stable. Moderate enlargement of the prostate gland, unchanged. No free fluid. No substantial inguinal adenopathy. Large right inguinal hernia, unchanged. Bones/Soft Tissues: Degenerative change within the lumbar spine is appreciated. Sclerotic focus posterior right ilium likely relates to a bone island, unchanged. Lower Thorax: A CT examination of the chest has been performed concurrently and will be dictated separately. Dock Operator (topogram) images: No additional findings. IMPRESSION: 1. 1.6 cm subcapsular hepatic hypodensity appears less conspicuous from prior study of 02/23/2024. 2. Otherwise, stable CT examination of the abdomen and pelvis. No substantial intra-abdominal or pelvic lymphadenopathy is identified. Transcribe Date/Time: Jul 22 2024 9:31A Dictated by: LORRIE KAPADIA MD This examination was interpreted and the report reviewed and electronically signed by: LORRIE KAPADIA MD on Jul 22 2024 11:16AM EST Thank you for allowing us to participate in the care of your patient. Should there be any questions regarding this interpretation, please call [phone]. If you are unable to reach us at the number above, please feel free to contact [facility] at [phone]. [id number]^ACN us Generic External Data Provider [facility] Final Result documented in this encounter Visit Diagnoses Not on filedocumented in this encounter Additional Health Concerns Assessment Noted Time PHQ-9 Depression Total Score: 4 10/02/19 24 1:27 PM EST documented as of this encounter Care Teams Mud Jack Nozzleman Relationship Specialty Start Date End Date Tom Benton MD [address] [place] [address] PCP - General Family Medicine 07/04/24 Margaret Vasques NP Nurse Practitioner Family Medicine 04/16/24 documented as of this encounter
--- OUTSIDE RECORDS SUMMARY | 2025-02-21 13:02 | XMS_ITS | Patient Health Record ---
Author Organization [facility] [place] Address [address] [place] [address] Care Team Providers Care Spine Surgeon Name Role Phone None, Unknown or Primary Care Provider Unavailab le Reason For Referral No Information Medications Medication SIG (Take, Route, Frequency, Duration) Notes Start Date End Date Status Plavix 75 MG 1 tablet Orally Once a day for 30 day(s) Active oxyCODONE HCl 5 MG 1 tablet as needed O rally every 6 hrs Active Metoprolol Succinate 25 MG 1 capsule Ora lly Once a day for 30 day(s) Active Furosemide 40 MG 1 tablet Orally Once a day for 30 day(s) Active Aspir-Low 81 MG 1 tablet Orally Once a day for 30 day(s) Active Amoxicillin-Pot Clavulanate 500-125 MG 1 tablet Orally every 8 hrs for 7 day(s) Active Entresto 24-26 MG 1 tablet Orally Twic e a day for 30 day(s) Active Social History Tobacco Use: Social History Observation Description Date Details (start date - stop date) Current Smoker NA - NA Tobacco Use/Smoking Question Answer Notes Patient is a current every day smoker Section Notes: Started smoking at age 20 Started smoking at age 20 Problems Problem Type SNOMED Code ICD Code Onset Dates Problem Status W/U Status Risk Notes Problem 831774266 Ischemic cardiomyopathy (I25.5) Active confirmed EF 30-40% Problem First degree AV block (I44.0) Active confirmed Problem 88422170 Chronic obstructive pulmonary disease, unspecified COPD type (J44.9) Active confirmed FEV1 61%, ratio 65, DLCO 66 Problem 57153055 Tobacco dependen ce (F17.200) Active confirmed Problem [id number] H/O aortic valve replacement (Z95.2) Active confirmed Plan Of Treatment No Information Insurance Providers Payer Name Payer Address Payer Phone Subscriber Number Group Number Insured Name Patient Relationship to Insured Coverage Start Date Coverage End Date [place] [address] [place] [address] [id number] Doc Villagran Self - patient is the insured 6 [place] 2ND INS [address] [facility] [place] [id number] Doc Villagran Self - patient is the insured 0 Medical (General) History Medical History History ICD Code Localized swelling, mass and lump, trunk R22.2 Pneumonia, unspecified organism J18.9 New onset type 2 diabetes mellitus E11.9 Aortic valve stenosis, etiology of cardi ac valve disease unspecified I35.0 Arteriosclerosis of coronary artery I25. 10 Chronic obstructive pulmonary disease, u nspecified COPD type J44.9 Tobacco abuse Z72.0 Pleural effusion J90 Other hypervolemia E87.79 Chronic obstructive pulmonary disease, u nspecified J44.9 Pleural effusion, not elsewhere classifi ed J90 Mediastinal adenopathy R59.0 Lung nodule R91.1 Thoracic aortic aneurysm, without ruptur e I71.2 Other ascites R18.8 Acute WI, subendocardial I21.4 Acute kidney failure N17.9 Chain smoker F17.200 Hypervolemia, unspecified hypervolemia t ype E87.70 NSTEMI (non-ST elevated myocardial infar ction) I21.4 Thoracic aortic aneurysm without rupture I71.2 Lung mass R91.8 Weakness R53.1 Surgical History Surgery Date(Month/Year) Lung BX 06/2020 Cardiac Valve Replacement 06/2020 Cardiac Bypass 06/2020 Bronch 06/2020 Hospitalization History Reason Date(Month/Year) [place], lung mass, 06/2020
--- OUTSIDE RECORDS SUMMARY | 2025-02-21 13:02 | XMS_ITS | Encounter Summary ---
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 Never 10/02/2023 Do you belong to any clubs o r organizations such as christian groups, unions, fraternal or athletic groups, or [...] Recorded Patient Health Questionnaire-2 Score 0 02/26/2024 [facility] - Occupational Stress Questionnaire Answer Date [...] place to sleep or slept in a skilled nursing (including now)? 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
--- OUTSIDE RECORDS SUMMARY | 2025-02-21 13:02 | XMS_ITS | Encounter Summary ---
Author Organization [facility] Address [address] [place] [address] Care Team Providers Care Archives Specialist Name Role Phone Margaret Vasques NUCLEAR POWERPLANT MECHANIC HELPER Unavailable [phone] Tom Benton MD Primary Care Provider [phone] Encounter Details Date Type Department Care Team [...] often do you attend chur ch or adventism services? Never 10/02/2023 Do you belong to any clubs o r organizations such as mandaen groups, unions, fraternal or athletic groups, or [...] Recorded Patient Health Questionnaire-2 Score 0 02/26/2024 [facility] Occupat ional Health - Occupational Stress [...] place to sleep or slept in a detention (including now)? No 10/02/2023 Sex and Gender [...] Office Visit [facility] [address] [place] [address] Anayeli Heaton NP [address] [place] [address] 02/18/2026 4:30 PM EDT Office Visit [facility] [address] [place] [address] Anayeli Heaton NP [address] [place] [address] documented as of this encounter Procedures Procedure Name Priority Date/Time Associated Diagnosis Comments CT CHEST W IV CONTRAST 07/19/2024 12:28 PM EST documented in this encounter Results * CT chest w IV contrast (07/19/2024 12:28 PM EST) Anatomical Region Laterality Modality Body, Chest Computed Tomogra phy 07/19/2024 12:2 8 PM EST Narrative 07/22/2024 11:18 AM EST * * *Final Report* * * DATE OF EXAM: Jul 19 2024 12:28PM [facility] 0539 - CT CHEST W IVCON [...] product (DLP) for this visit = 970 mGy*cm CT Dose Reduction Employed: Automated exposure control (AEC) Comparison: CT chest 04/18/2024 RESULT: Limitations: None. Lines, tubes, and devices: None. Lung parenchyma , airways, and pleural space: Postoperative changes, compatible with prior right upper lobectomy. Mild volume loss involving the right hemithorax, stable. Mild biapical pleural scarring, moderate centrilobular emphysematous changes are again appreciated, unchanged. Newly apparent 8 mm left upper lobe nodule is appreciated, image 72, series 4. 8 mm subpleural left upper lobe nodule more inferiorly is appreciated, previously 4 mm, image 97, series 4. 7 mm right lower lobe nodule, previously 3 mm is appreciated image 163, series 4. Several additional bilateral subcentimeter nodules are not clearly identified on the prior study. Several additional subcentimeter nodules bilaterally appear improved, for example, a 6 mm nodule within the right upper lobe is appreciated, previously 9 mm, image 92, series 4. Lower neck, lymph nodes, and mediastinum: The visualized thyroid gland is stable. No substantial supraclavicular or axillary lymphadenopathy is identified. Numerous subcentimeter mediastinal lymph nodes are again identified, none of which appear pathologically enlarged. Mild soft tissue prominence at the santy bilaterally, unchanged. Postoperative changes of the right hilum, stable. Heart, pericardium, and thoracic vessels: Coronary artery calcification is again noted. No substantial pericardial effusion is identified. 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 The ascending thoracic aorta is dilated measuring approximately 4.8 cm, unchanged. Bones/Soft Tissues: Degenerative change within the thoracic spine. Postoperative changes, compatible with prior median sternotomy. Bilateral gynecomastia is noted. Upper Abdomen: A CT examination of the abdomen has been performed concurrently and will be dictated separately. Incubator Tender (topogram) images: No additional findings. IMPRESSION: 1. Numerous bilateral pulmonary nodules are again identified, several of which appear increased in size, several of which have decreased in size, compatible with mixed response. 2. No substantial intrathoracic adenopathy is appreciated. Transcribe Date/Time: Jul 22 2024 9:17A Dictated by: LORRIE KAPADIA MD This examination was interpreted and the report reviewed and electronically signed by: LORRIE KAPADIA MD on Jul 22 2024 11:16AM EST Thank you for allowing us to participate in the care of your patient. Should there be any questions regarding this interpretation, please call [phone]. If you are unable to reach us at the number above, please feel free to contact [facility] at [phone]. [id number]^ACN Procedure Note Radiology, Radiologist, - 07/22/2024 * * *Final Report* * * DATE OF EXAM: Jul 19 2024 12:28PM [facility] 0539 - CT CHEST W IVCON [...] product (DLP) for this visit = 970 mGy*cm CT Dose Reduction Employed: Automated exposure control (AEC) Comparison: CT chest 04/18/2024 RESULT: Limitations: None. Lines, tubes, and devices: None. Lung parenchyma , airways, and pleural space: Postoperative changes, compatible with prior right upper lobectomy. Mild volume loss involving the right hemithorax, stable. Mild biapical pleural scarring, moderate centrilobular emphysematous changes are again appreciated, unchanged. Newly apparent 8 mm left upper lobe nodule is appreciated, image 72, series 4. 8 mm subpleural left upper lobe nodule more inferiorly is appreciated, previously 4 mm, image 97, series 4. 7 mm right lower lobe nodule, previously 3 mm is appreciated image 163, series 4. Several additional bilateral subcentimeter nodules are not clearly identified on the prior study. Several additional subcentimeter nodules bilaterally appear improved, for example, a 6 mm nodule within the right upper lobe is appreciated, previously 9 mm, image 92, series 4. Lower neck, lymph nodes, and mediastinum: The visualized thyroid gland is stable. No substantial supraclavicular or axillary lymphadenopathy is identified. Numerous subcentimeter mediastinal lymph nodes are again identified, none of which appear pathologically enlarged. Mild soft tissue prominence at the santy bilaterally, unchanged. Postoperative changes of the right hilum,stable. Heart, pericardium, and thoracic vessels: Coronary artery calcification is again noted. No substantial pericardial effusion is identified. 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 The ascending thoracic aorta is dilated measuring approximately 4.8 cm, unchanged. Bones/Soft Tissues: Degenerative change within the thoracic spine. Postoperative changes, compatible with prior median sternotomy. Bilateral gynecomastia isnoted. Upper Abdomen: A CT examination of the abdomen has been performed concurrently and will be dictated separately. Incubator Tender (topogram) images: No additional findings. IMPRESSION: 1. Numerous bilateral pulmonary nodules are again identified, several of which appear increased in size, several of which have decreased in size, compatible with mixed response. 2. No substantial intrathoracic adenopathy is appreciated. Transcribe Date/Time: Jul 22 2024 9:17A Dictated by: LORRIE KAPADIA MD This examination was interpreted and the report reviewed and electronically signed by: LORRIE KAPADIA MD on Jul 22 2024 11:16AM EST Thank you for allowing us to participate in the care of your patient. Should there be any questions regarding this interpretation, please call [phone]. If you are unable to reach us at the number above, please feel free to contact [facility] at [phone]. [id number]^[email or web address]^ACN us Generic External Data Provider IMG CT PROCEDURES Final Result documented in this encounter Visit Diagnoses Not on filedocumented in this encounter Additional Health Concerns Assessment Noted Time PHQ-9 Depression Total Score: 4 10/02/19 24 1:27 PM EST documented as of this encounter Care Teams Archives Specialist Relationship Specialty Start Date End Date Tom Benton MD [address] [place] [address] PCP - General Family Medicine 07/04/24 Margaret Vasques NP Nurse Practitioner Family Medicine 04/16/24 documented as of this encounter
--- OUTSIDE RECORDS SUMMARY | 2025-02-21 13:02 | XMS_ITS | Encounter Summary ---
Author Organization [facility] Address [address] [facility] [place] [address] Care Team Providers Care Evp Chief Exploration Officer Name Role Phone Vasques, Brittany TOP CLEANER Unavailable [phone] Tom Benton MD Primary Care Provider Encounter Details Date Type Department Care Team (Late st Contact Info) Description 02/12/2025 Bamboo [facility] [address] [place] [address] Anayeli Heaton NP [address] [place] [address] Social History Tobacco Use Types Packs/Day Years [...] often do you attend chur ch or uatsdin services? Never 10/02/2023 Do you belong to any clubs o r organizations such as buddhist groups, unions, fraternal or athletic groups, or [...] Recorded Patient Health Questionnaire-2 Score 1 02/12/2025 [facility] - Occupational Stress Questionnaire Answer Date [...] [facility] [address] [place] [address] Anayeli Heaton NP [address] [place] [address] 02/18/2026 4:30 PM EDT Office Visit [facility] [address] [place] [address] Anayeli Heaton NP [address] [place] [address] documented as of this encounter Visit Diagnoses Not on filedocumented in this encounter Additional Health Concerns Assessment Noted Time PHQ-9 Depression Total Score: 7 02/13/20 25 1:25 PM EDT documented as of this encounter Care Teams Evp Chief Exploration Officer Relationship Specialty Start Date End Date Tom Benton MD [address] [place] [address] PCP - General Family Medicine 07/04/24 Margaret Vasques NP Nurse Practitioner Family Medicine 04/16/24 documented as of this encounter
--- OUTSIDE RECORDS SUMMARY | 2025-02-21 13:02 | XMS_ITS | Encounter Summary ---
Author Organization [facility] Address [address] [place] [address] Care Team Providers Care Propulsion Motor And Generator Repairer Name Role Phone Vasques, Brittany COOK MANAGER Unavailable [phone] Tom Benton MD Primary Care Provider [phone] Encounter Details Date Type Department Care Team (Late st Contact Info) Description 09/12/2024 Clinisync Result Encounter [facility] External Department Unsolicited [...] often do you attend chur ch or pentecostal services? Never 10/02/2023 Do you belong to any clubs o r organizations such as latter-day groups, unions, fraternal or athletic groups, or [...] Recorded Patient Health Questionnaire-2 Score 0 02/26/2024 [facility] of Occupat ional Health - Occupational Stress [...] Visit [facility] [address] [place] [address] Anayeli Heaton NP [address] [place] [address] 02/18/2026 4:30 PM EDT Office Visit [facility] [address] [place] [address] Anayeli Heaton NP [address] [place] [address] documented as of this encounter Procedures Procedure Name Priority Date/Time Associated Diagnosis Comments CT CHEST W IV CONTRAST 09/12/2024 1:05 PM EST documented in this encounter Results * CT chest w IV contrast (09/12/2024 1:05 PM EST) Anatomical Region Laterality Modality Body, Chest Computed Tomogra phy 09/12/2024 1:05 PM EST Narrative 09/12/2024 5:49 PM EST * * *Final Report* * * DATE OF EXAM: Sep 12 2024 1:05PM [facility] 0539 - CT CHEST W IVCON / PROCEDURE REASON: multiple diagnoses * * * * Physician Interpretation * * * * RESULT: EXAMINATION: CHEST CT WITH CONTRAST CLINICAL HISTORY: Lung nodule, 6-8mm, Non-small cell lung cancer (NSCLC), monitor Technique: Spiral CT acquisition of the chest from the thoracic inlet to the upper abdomen following IV contrast. MQ: CTCW_6 Contrast: 50 mL Omnip[address] Radiation dose: Integrated Dose-length product (DLP) for this visit = 282 mGy*cm CT Dose Reduction Employed: Automated exposure control (AEC) Comparison: 07/19/24 RESULT: Limitations: None. Lines, tubes, and devices: None. Lung parenchyma and airways: Mild emphysematous changes of the lungs. Postoperative changes compatible with a right upper lobe lobectomy. Multiple nodular opacities (at least 10-15). For example: * 7 mm right lung (4:77), stable * 6 mm right lung (4:88), stable * 4 mm right lower lobe (4:157), previously 7 mm, slightly smaller * 6 mm left lower lobe (4:128, stable * 6 mm left upper lobe (4:73), previously 8 mm, slightly smaller Pleural space: No pleural effusion. No pleural thickening. Lower neck, lymph nodes, and mediastinum: The imaged thyroid gland is normal. No lymphadenopathy in the supraclavicular, axillary, mediastinal, or hilar regions. Heart, pericardium, and thoracic vessels: Borderline aneurysmal enlargement of the ascending thoracic aorta measuring 4.8 cm in diameter. Postoperative changes of the anterior chest. Heart is mild to moderately enlarged. No pericardial effusion or thickening. Left atrial appendage clip is noted. Bones and soft tissues: Deformities of several bilateral ribs most likely related to postoperative change or sequela of prior trauma. No new osseous abnormalities. Upper abdomen: No evidence of an adrenal mass. Entertainment Dancer (topogram) images: No additional findings. IMPRESSION: 1. Multiple subcentimeter nodular opacities, most are stable but some are slightly smaller since 07/19/24. 2. No evidence of new intrathoracic abnormalities. Transcribe Date/Time: Sep 12 2024 4:11P Dictated by: ARNEL SAUCEDA MD This examination was interpreted and the report reviewed and electronically signed by: ARNEL SAUCEDA MD on Sep 12 2024 5:47PM EST Thank you for allowing us to participate in the care of your patient. Should there be any questions regarding this interpretation, please call [phone]. If you are unable to reach us at the number above, please feel free to contact [facility] at [phone]. [id number]^[email or web address]^ACN Procedure Note Radiology, Radiologist, - 09/12/2024 * * *Final Report* * * DATE OF EXAM: Sep 12 2024 1:05PM [facility] 0539 - CT CHEST W IVCON / PROCEDURE REASON: multiple diagnoses * * * * Physician Interpretation * * * * RESULT: EXAMINATION: CHEST CT WITH CONTRAST CLINICAL HISTORY: Lung nodule, 6-8mm, Non-small cell lung cancer (NSCLC), monitor Technique: Spiral CT acquisition of the chest from the thoracic inlet to the upper abdomen following IV contrast. MQ: CTCW_6 Contrast: 50 mL Omnipaque [address] Radiation dose: Integrated Dose-length product (DLP) for this visit = 282 mGy*cm CT Dose Reduction Employed: Automated exposure control (AEC) Comparison: 07/19/24 RESULT: Limitations: None. Lines, tubes, and devices: None. Lung parenchyma and airways: Mild emphysematous changes of the lungs. Postoperative changes compatible with a right upper lobe lobectomy. Multiple nodular opacities (at least 10-15). For example: * 7 mm right lung (4:77), stable * 6 mm right lung (4:88), stable * 4 mm right lower lobe (4:157), previously 7 mm, slightly smaller * 6 mm left lower lobe (4:128, stable * 6 mm left upper lobe (4:73), previously 8 mm, slightly smaller Pleural space: No pleural effusion. No pleural thickening. Lower neck, lymph nodes, and mediastinum: The imaged thyroid gland is normal. No lymphadenopathy in the supraclavicular, axillary, mediastinal, or hilar regions. Heart, pericardium, and thoracic vessels: Borderline aneurysmal enlargement of the ascending thoracic aorta measuring 4.8 cm in diameter. Postoperative changes of the anterior chest. Heart is mild to moderately enlarged. No pericardial effusion or thickening. Left atrial appendage clip is noted. Bones and soft tissues: Deformities of several bilateral ribs most likely related to postoperative change or sequela of prior trauma. No new osseous abnormalities. Upper abdomen: No evidence of an adrenal mass. Entertainment Dancer (topogram) images: No additional findings. IMPRESSION: 1. Multiple subcentimeter nodular opacities, most are stable but some are slightly smaller since 07/19/24. 2. No evidence of new intrathoracic abnormalities. Transcribe Date/Time: Sep 12 2024 4:11P Dictated by: ARNEL SAUCEDA MD This examination was interpreted and the report reviewed and electronically signed by: ARNEL SAUCEDA MD on Sep 12 2024 5:47PM EST Thank you for allowing us to participate in the care of your patient. Should there be any questions regarding this interpretation, please call [phone]. If you are unable to reach us at the number above, please feel free to contact [facility] at [phone]. [id number]^[email or web address]^ACN us Generic External Data Provider IMG CT PROCEDURES Final Result documented in this encounter Visit Diagnoses Not on filedocumented in this encounter Additional Health Concerns Assessment Noted Time PHQ-9 Depression Total Score: 4 10/02/19 24 1:27 PM EST documented as of this encounter Care Teams Propulsion Motor And Generator Repairer Relationship Specialty Start Date End Date Tom Benton MD [address] [place] [address] PCP - General Family Medicine 07/04/24 Margaret Vasques NP Nurse Practitioner Family Medicine 04/16/24 documented as of this encounter
--- OUTSIDE RECORDS SUMMARY | 2025-02-21 13:02 | XMS_ITS | Encounter Summary ---
Author Organization [facility] Address [address] [place] [address] Care Team Providers Care Production Dispatcher Name Role Phone Shaikh ADILENE Etienne Primary Care Provider [phone] Shaikh ADILENE Etienne Primary Care Provider [phone] Tom Benton MD Primary Care Provider [phone] Margaret Vasques DIRECTOR OF SLEEP Unavailable [phone] Unallocated, Noms Provider Primary Care Provi alia Tom Benton MD Primary Care Provider [phone] Encounter Details Date Type Department Care Team (Late st Contact Info) Description 08/04/2023 Clinisync Result Encounter [facility] External Department Unsolicited [...] Department Care Team (Late Contact Info) Description 04/02/2025 1:20 PM EDT Office Visit [facility] [address] [place] [address] Anayeli Heaton DIRECTOR OF SLEEP [address] [place] [address] 02/18/2026 4:30 PM EDT Office Visit [facility] [address] [place] [address] Anayeli Heaton, CHELLE [address] [place] [address] documented as of this encounter Procedures Procedure Name Priority Date/Time Associated Diagnosis Comments NM PET/CT SKULL-THIGH SUBQ 08/04/2023 2:58 PM EST documented in this encounter Results * NM PET/CT SKULL-THIGH SUBQ (08/04/2023 2:58 PM EST) Anatomical Region Laterality Modality Other 08/04/2023 2:58 PM EST Narrative 08/07/2023 8:58 AM EST * * *Final Report* * [...] limits of low dose noncontrast CT scan. Extremities/Skeleton: No evidence of focal uptake to suggest [...] to suggest FDG avid neoplastic process.. 4. EXTREMITIES/SKELETON: No evidence of focal uptake to suggest [...] any questions regarding this interpretation, please call [phone]. If you are unable to reach us at the number above, please feel free to contact [facility] at [phone]. [id number]^[email or web address]^ACN Procedure Note Radiology, Radiologist, - 08/07/2023 * * *Final Report* * * DATE [...] limits of low dose noncontrast CT scan. Extremities/Skeleton: No evidence of focal uptake to suggest [...] to suggest FDG avid neoplastic process.. 4. EXTREMITIES/SKELETON: No evidence of focal uptake to suggest [...] any questions regarding this interpretation, please call [phone]. If you are unable to reach us at the number above, please feel free to contact [facility] at [phone]. [id number]^AGFA_IDC^SI^ACN us Generic External Data Provider [facility] Final Result documented in this encounter Visit Diagnoses Not on filedocumented in this encounter Care Teams Production Dispatcher Relationship Specialty Start Date End Date Shaikh Etienne MD PCP - General Internal Medicine 03/22/23 09/21/23 Shaikh Etienne MD [address] [place] [address] PCP - General Internal Medicine 09/22/23 04/15/24 Tom Benton MD [address] [place] [address] PCP - General Family Medicine 04/16/24 06/24/24 Unallocated, Kacey Canada MD [address] [place] [address] PCP - General Family Medicine 06/25/24 07/03/24 Tom Benton MD [address] [place] [address] PCP - General Family Medicine 07/04/24 Margaret Vasques NP [address] [place] [address] Nurse Practitioner Family Medicine 04/16/24 documented as of this encounter
--- OUTSIDE RECORDS SUMMARY | 2025-02-21 13:02 | XMS_ITS | Encounter Summary ---
Author Organization [facility] Address [address] [place] [address] Care Team Providers Care Calculus Teacher Name Role Phone Shaikh ADILENE Etienne Primary Care Provider [phone] Reason for Visit * Reason Onset Date Comments Med Refill 02/10/2025 Encounter Details Date Type Department Care Team (Late st Contact Info) Description 02/10/[address] [address] Amanda Lizarraga MA Benign hypertensive heart disease with heart failure (CMS/HCC); Heart failure with improved ejection fraction (HFimpEF) (CMS/HCC) Social History Tobacco Use Types Packs/Day Years Used Date Smoking Tobacco: Every Day Cigarettes Smokeless Tobacco: Never Alcohol Use Standard Drinks/Week Comments Yes 0 [...] Description 03/31/2025 1:00 PM EDT Office Visit [facility] [address] [place] [address] Jj Ambrosio MD [address] [place] [address] documented as of this encounter Visit Diagnoses Diagnosis Benign hypertensive heart disease with heart failure (CMS/HCC) Heart failure with improved ejection fraction (HFimpEF) (CMS/HCC) documented in this encounter Care Teams Calculus Teacher Relationship Specialty Start Date End Date Shaikh Etienne MD [address] [place] [address] PCP - General Family Medicine 05/24/22 documented as of this encounter
--- OUTSIDE RECORDS SUMMARY | 2025-02-21 13:03 | XMS_ITS | Encounter Summary ---
Author Organization [facility] Address [address] [place] [address] Care Team Providers Care Supervisor Litharge Name Role Phone Shaikh ADILENE Etienne Primary Care Provider [phone] Tom Benton MD Primary Care Provider [phone] Margaret Vasques APPLICATION DEVELOPMENT TEAM LEAD Unavailable [phone] Unallocated, Noms Provider Primary Care Provi alia Tom Benton MD Primary Care Provider [phone] Reason for Visit * Reason Comments Med Refill Encounter Details Date Type Department Care Team (Late st Contact Info) Description 10/25/2023 [facility] [address] [place] [address] Shaikh Etienne MD [address] [place] [address] Male erectile dysfunction, unspecified Social History Tobacco Use Types Packs/Day Years Used Date Smoking Tobacco: Every Day Cigarettes Alcohol Use Standard Drinks/Week Comments Not Currently [...] often do you attend chur ch or hinduism services? Never 10/02/2023 Do you belong to any clubs o r organizations such as jew groups, unions, fraternal or athletic groups, or [...] Recorded Patient Health Questionnaire-2 Score 2 10/02/2023 [facility] - [...] place to sleep or slept in a fdc (including now)? No 10/02/2023 Sex and Gender Information Value Date Recorded Sex Assigned at Not on file Legal Sex Male 2:39 PM EDT Gender Identity Not on file Sexual Orientation Not on file documented as of this encounter Miscellaneous Notes * Telephone Encounter - Shaikh Lowell MD - 10/26/2023 9:46 AM EST Approving, but needs appt for additional refills. documented in this encounter Plan of Treatment Upcoming Encounters Date Type Department Care Team (Late st Contact Info) Description 04/02/2025 1:20 PM EDT Office Visit [facility] [address] [place] [address] Anayeli Heaton NP [address] [place] [address] 02/18/2026 4:30 PM EDT Office Visit [facility] [address] [place] [address] Anayeli Heaton NP [address] [place] [address] documented as of this encounter Visit Diagnoses Diagnosis Male erectile dysfunction, unspecified documented in this encounter Additional Health Concerns Assessment Noted Time PHQ-9 Depression Total Score: 4 10/02/19 24 1:27 PM EST documented as of this encounter Care Teams Supervisor Litharge Relationship Specialty Start Date End Date Shaikh Etienne MD [address] [place] [address] PCP - General Internal Medicine 09/22/23 04/15/24 Tom Benton MD [address] [place] [address] PCP - General Family Medicine 04/16/24 06/24/24 Unallocated, Kacey Caanda MD [facility] [place] [address] PCP - General Family Medicine 06/25/24 07/03/24 Tom Benton MD [address] [place] [address] PCP - General Family Medicine 07/04/24 Margaret Vasques NP [address] [place] [address] Nurse Practitioner Family Medicine 04/16/24 documented as of this encounter
--- OUTSIDE RECORDS SUMMARY | 2025-02-21 13:03 | XMS_ITS | Encounter Summary ---
Author Organization [employer] Address [facility] [id number] [address] [place] [address] Care Team Providers Care Tour Actor Name Role Phone Shaikh ADILENE Etienne Primary Care Provider [phone] Encounter Details Date Type Department Care Team (Late Contact Info) Description 11/23/2022 Orders Only [facility] Pul[facility] [address] [place] [address] Ref Prov, [place] [address] Social History Tobacco Use Types Packs/Day Years [...] have Coronavirus / COVID-19? No / Unsure 11/03/2022 1:34 PM EST documented as of this encounter Plan of Treatment Upcoming Encounters Date Type Department Care Team (Late Contact Info) Description 08/07/2025 11:45 AM EST Office Visit [facility] [address] [place] [address] Maliha Lentz, DO [address] [address] documented as of this encounter Procedures Procedure Name Priority Date/Time Associated Diagnosis Comments SURGICAL PATHOLOGY Routine 09/24/2020 SURGICAL PATHOLOGY Routine 07/21/2020 CYTOLOGY Routine 05/29/2020 documented in this encounter Results * Surgical Pathology (09/24/2020) us Not In System Ref Prov PATHOLOGY/CYTOLOGY ORDERA BLES Final Result Performing Organization Address City/State/[facility] Co de Phone Number MANUALLY TRANSCRIBED RESULTS * Surgical Pathology (07/21/2020) us Not In System Ref Prov PATHOLOGY/CYTOLOGY ORDERA BLES Final Result Performing Organization Address [facility] Co de Phone Number MANUALLY TRANSCRIBED RESULTS * Cytology (05/29/2020) us Not In System Ref Prov PATHOLOGY/CYTOLOGY ORDERA BLES Final Result Performing Organization Address [facility] Co de Phone Number MANUALLY TRANSCRIBED RESULTS documented in this encounter Visit Diagnoses Not on filedocumented in this encounter Care Teams Tour Actor Relationship Specialty Start Date End Date Shaikh Etienne MD PCP - General Internal Medicine 08/19/22 documented as of this encounter
--- OUTSIDE RECORDS SUMMARY | 2025-02-21 13:03 | XMS_ITS | Encounter Summary ---
Author Organization [facility] Address [address] [place] [address] Care Team Providers Care Manager Paid Name Role Phone Shaikh ADILENE Etienne Primary Care Provider [phone] Tom Benton MD Primary Care Provider [phone] Margaret Vasques SPINE SURGEON Unavailable [phone] Unallocated, Noms Provider Primary Care Provi alia Tom Benton MD Primary Care Provider [phone] Encounter Details Date Type Department Care Team (Late st Contact Info) Description 01/01/2024 Clinisync Result Encounter [facility] External Department Unsolicited Shaikh Etienne MD [address] [place] [address] Social History Tobacco Use Types Packs/Day Years [...] How often do you attend chur or jewish services? Never 10/02/2023 Do you belong to any clubs o r organizations such as holiness groups, unions, fraternal or athletic groups, or [...] Date Recorded Patient Health Questionnaire-2 Score 0 01/01/2024 [facility] - Occupational Stress Questionnaire Answer Date [...] to sleep or slept in a senior care (including now)? No 10/02/2023 Sex and Gender Information Value Date Recorded Sex Assigned at Not on file Legal Sex Male 2:39 PM EDT Gender Identity Not on file Sexual Orientation Not on file documented as of this encounter Functional Status * Over the past 2 weeks, how often have you been bothered by any of the following problems? Question Answer Date of Assessment Author Little interest or pleasure in doing things Not at all 01/01/2024 3:41 PM EDT Lou Garvin M A Feeling down, depressed, or hopeless Not at all 01/01/2024 3:41 PM EDT Lou Garvin M A Patient Health Questionnaire -2 Score 0 01/01/2024 3:41 PM EDT Lou Garvin M A documented as of this encounter Plan of Treatment Upcoming Encounters Date Type Department Care Team (Late st Contact Info) Description 04/02/2025 1:20 PM EDT Office Visit [facility] [address] [place] [address] Anayeli Heaton NP [address] [place] [address] 02/18/2026 4:30 PM EDT Office Visit [facility] [address] [place] [address] Anayeli Heaton NP [address] [place] [address] documented as of this encounter Procedures Procedure Name Priority Date/Time Associated Diagnosis Comments XR TIBIA FIBULA LT 2V 01/01/2024 7:05 PM EDT documented in this encounter Results * XR TIBIA FIBULA LT 2V (01/01/2024 7:05 PM EDT) Anatomical Region Laterality Modality Other 01/01/2024 7:05 PM EDT Narrative 01/01/2024 7:07 [place] [address] XRay Report Signed Patient: DOC VILLAGRAN MR#: [id number] : 1950 Acct:[id number] Age/Sex: 73 / M ADM Date: 01/01/24 Loc: [facility] Attending Dr: Shaikh Lowell Quevedo Ordering Physician: Shaikh Sae Etienne Date of Service: 01/01/24 Procedure(s): XR tibia fibula LT 2V Accession Number(s): [id number] cc: Shaikh Sae Etienne [address] [address] Patient Name: DOC VILLAGRAN MRN: [id number] date: 1950 Sex: M Assigned Patient Location: RAD Current Patient Location: [facility] Accession/Order Number: [id number] Exam Date: 01/01/2024 17:35 Report Date: 01/01/2024 19:05 At the request of: SHAIKH LOWELL Procedure: XR tibia fibula LT 2V EXAM: XR tibia fibula LT 2V HISTORY: left leg pain M79.605 . Injury anteriorly. COMPARISON: None. TECHNIQUE: 2 views of the tibia and fibula were obtained. FINDINGS: AP and lateral views of the tibia and fibula demonstrate no evidence of an acute fracture or dislocation. No significant osseous abnormality is identified. The joint spaces are intact. An osteophyte arises from the insertion site of the Achilles tendon. Vascular surgical clips are present in the soft tissues as well as some calcification of the arteries. XR/XR tibia fibula LT 2V IMPRESSION: No evidence of an acute fracture or dislocation. The joint spaces are intact. Surgical clips and soft tissue calcifications are noted. Electronically authenticated by: ESTHELA REYNOSO Date: 01/01/2024 19:05 Dictated By: Esthela Reynoso M.D. Signed By: 01/01/241906 DD/ 04 TD/TT: Agent Telegrapher: Procedure Note Radiology, Radiologist, MD - 01/01/2024 [place] [address] XRay Report Signed Patient: DOC VILLAGRANMR#: [id number] : 1950cct:[id number] Age/Sex: 73 / MADM Date: 01/01/24 Loc: [facility] Attending Dr: Shaikh Lowell Quevedo Ordering Physician: Shaikh Sae Etienne Date of Service: 01/01/24 Procedure(s): XR tibia fibula LT 2V Accession Number(s): [id number] cc: Shaikh Sae Etienne [facility] [place] [id number] Patient Name: DOC VILLAGRAN MRN: [id number] date: 1950 Sex: M Assigned Patient Location: [facility] Current Patient Location: [facility] Accession/Order Number: [id number] Exam Date: 01/01/2024 17:35 Report Date: 01/01/2024 19:05 At the request of: SHAIKH LOWELL Procedure: XR tibia fibula LT 2V EXAM: XR tibia fibula LT 2V HISTORY: left leg pain M79.605 . Injury anteriorly. COMPARISON: None. TECHNIQUE: 2 views of the tibia and fibula were obtained. FINDINGS: AP and lateral views of the tibia and fibula demonstrate noevidence of an acute fracture or dislocation. No significant osseous abnormality is identified. The joint spaces are intact. An osteophyte arises from the insertion site of the Achilles tendon. Vascular surgical clips are presentin the soft tissues as well as some calcification of the arteries. XR/XR tibia fibula LT 2V IMPRESSION: No evidence of an acute fracture or dislocation. The joint spaces areintact. Surgical clips and soft tissue calcifications are noted. Electronically authenticated by: ESTHELA REYNOSO Date: 01/01/2024 19:05 Dictated By: Esthela Reynoso M.D. Signed By:01/01/241906 DD/ 04 TD/TT: Agent Telegrapher: us Shaikh Lowell [facility] Final Result documented in this encounter Visit Diagnoses Not on filedocumented in this encounter Additional Health Concerns Assessment Noted Time PHQ-9 Depression Total Score: 4 10/02/19 24 1:27 PM EST documented as of this encounter Care Teams Manager Paid Relationship Specialty Start Date End Date Shaikh Etienne MD [address] [place] [address] PCP - General Internal Medicine 09/22/23 04/15/24 Tom Benton MD [address] [place] [address] PCP - General Family Medicine 04/16/24 06/24/24 Unallocated, Kacey Canada MD [address] [place] [address] PCP - General Family Medicine 06/25/24 07/03/24 Tom Benton MD [address] [place] [address] PCP - General Family Medicine 07/04/24 Margaret Vasques NP [address] [place] [address] Nurse Practitioner Family Medicine 04/16/24 documented as of this encounter
--- OUTSIDE RECORDS SUMMARY | 2025-02-21 13:03 | XMS_ITS | Encounter Summary ---
Author Organization [facility] Address [address] [place] [facility] [place] [address] Care Team Providers Care Manager Of Product Name Role Phone Shaikh ADILENE Etienne Primary Care Provider [phone] Tom Benton MD Primary Care Provider [phone] Margaret Vasques TRUCK ENGINE TECHNICIAN Unavailable [phone] Unallocated, Noms Provider Primary Care Provi alia Tom Benton MD Primary Care Provider [phone] Encounter Details Date Type Department Care Team (Late st Contact Info) Description 11/10/2023 Clinisync Result Encounter [facility] External Department Unsolicited [...] often do you attend chur ch or scientologist services? Never 10/02/2023 Do you belong to any clubs o r organizations such as congregation groups, unions, fraternal or athletic groups, or [...] Recorded Patient Health Questionnaire-2 Score 2 10/02/2023 [facility] Health - [...] place to sleep or slept in a [place] health care facility (including now)? No 10/02/2023 Sex and Gender [...] [facility] [address] [place] [address] Anayeli Heaton NP [address] [place] [address] 02/18/2026 4:30 PM EDT Office Visit [facility] [address] [place] [address] Anayeli Heaton NP [address] [place] [address] documented as of this encounter Procedures Procedure Name Priority Date/Time Associated Diagnosis Comments CT CHEST W IV CONTRAST 11/10/2023 12:51 PM EST documented in this encounter Results * CT chest w IV contrast (11/10/2023 12:51 PM EST) Anatomical Region Laterality Modality Body, Chest Computed Tomogra phy 11/10/2023 12:5 1 PM EST Narrative 11/10/2023 4:12 PM EST * * *Final Report* * * DATE OF EXAM: Nov 10 2023 12:51PM [facility] 0539 - CT CHEST W [...] performed concurrently and will be dictated separately. Particleboard Factory Worker (topogram) images: No additional findings. IMPRESSION: 1. [...] any questions regarding this interpretation, please call [phone]. If you are unable to reach us at the number above, please feel free to contact [facility] at [phone]. [id number]^AGFA_IDC^SI^ACN Procedure Note Radiology, Radiologist, - 11/10/2023 * * *Final Report* * * DATE OF EXAM: Nov 10 2023 12:51PM [facility] 0539 - CT CHEST W [...] performed concurrently and will be dictated separately. Particleboard Factory Worker (topogram) images: No additional findings. IMPRESSION: 1. [...] any questions regarding this interpretation, please call [phone]. If you are unable to reach us at the number above, please feel free to contact [facility] at [phone]. [id number]^AGFA_IDC^SI^ACN us Generic External Data Provider IMG CT PROCEDURES Final Result documented in this encounter Visit Diagnoses Not on filedocumented in this encounter Additional Health Concerns Assessment Noted Time PHQ-9 Depression Total Score: 4 10/02/19 24 1:27 PM EST documented as of this encounter Care Teams Manager Of Product Relationship Specialty Start Date End Date Shaikh Etienne MD [address] [place] [address] PCP - General Internal Medicine 09/22/23 04/15/24 Tom Benton MD [address] [place] [address] PCP - General Family Medicine 04/16/24 06/24/24 Unallocated, Noms Provider, [address] [place] [address] PCP - General Family Medicine 06/25/24 07/03/24 Tom Benton MD [address] [place] [address] PCP - General Family Medicine 07/04/24 Margaret Vasques NP [address] [place] [address] Nurse Practitioner Family Medicine 04/16/24 documented as of this encounter
--- OUTSIDE RECORDS SUMMARY | 2025-02-21 13:03 | XMS_ITS | Encounter Summary ---
Author Organization [facility] [employer] Address [id number] [address] [place] [address] Care Team Providers Care Payment Collector Name Role Phone Shaikh ADILENE Etienne Primary Care Provider [phone] Encounter Details Date Type Department Care Team (Late st Contact Info) Description 09/06/2022 [facility]phone [facility] [address] [address] Sarai Whitley RN Social History Tobacco Use Types Packs/Day Years [...] have Coronavirus / COVID-19? No / Unsure 08/18/2022 1:57 PM EST documented as of this encounter Miscellaneous Notes * Telephone Encounter - Sarai Whitley RN - 09/06/2022 2:35 PM EST Attempted to call pt x 2 no voicemail Left message on sisters voicemail to have pt call * Telephone Encounter - Sarai Whitley RN - 09/06/2022 2:35 PM EST I recontacted pt today He stated he called 3 x yesterday and left message I apologized I did not receive message I discussed need for Bronch Needs to be in [place] He will need transportation Pt will discuss with his Son and call [place] number back when they decide * Telephone Encounter - Maliha Lentz DO - 09/06/2022 2:35 PM EST Could someone reach out to him again to follow up? * Telephone Encounter - Sarai Whitley RN - 09/06/2022 2:35 PM EST Pt contacted stated he wanted to wait until oct appt to discuss I advised that would need to be moved up too far out. I asked if he wants Dr Lentz to try and call him again? I believe he wants Son present. Kirti is there a move up spot Though he has time requests since son is his transportation * Telephone Encounter - Kirti Camacho LPN - 09/06/2022 2:35 PM EST Moved appt up to 09/29/22 at 10:15am. * Telephone Encounter - Kirti Camacho LPN - 09/06/2022 2:35 PM EST He just saw his cancer doctor at the [facility]. They did a CT and now want a PET on 09/30 andthen they are going to do a biopsy. Pt wants to wait until all of this is done to follow up. documented in this encounter Plan of Treatment Upcoming Encounters Date Type Department Care Team (Late st Contact Info) Description 08/07/2025 11:45 AM EST Office Visit [facility] [address] [place] [address] Maliha Lentz, DO [address] [address] documented as of this encounter Visit Diagnoses Not on filedocumented in this encounter Care Teams Payment Collector Relationship Specialty Start Date End Date Shaikh Etienne MD PCP - General Internal Medicine 08/19/22 documented as of this encounter
--- OUTSIDE RECORDS SUMMARY | 2025-02-21 13:03 | XMS_ITS | Encounter Summary ---
Author Organization [facility] Address [facility] [place] [address] Care Team Providers Care Routing Clerk Name Role Phone Shaikh ADILENE Etienne Primary Care Provider [phone] Jj Ambrosio MD Unavailable [phone] Jj Ambrosio MD Unavailable [phone] Maliha Lentz Gabriella DO Unavailable [phone] Source Comments In the event this information is protected by the Federal Confidentiality of Alcohol and Drug AbusePatient Records regulations: The Federal rules restrict any use of the information to criminally investigate or prosecute any alcohol or drug abuse patient.[facility] Encounter Details Date Type Department Care Team (Latest Contact Info) Description 01/12/2021 H&P External-NonCCF Provider, External, PA-C Do not enter address information under generic External Provider. Social History Tobacco Use Types Packs/Day Years Used Date Smoking Tobacco: Every Day Cigarettes Smokeless Tobacco: Never Area Deprivation Index Answer Date Jaret rded National Score (1-100), lower number is lower ri sk Not on file 01/13/2021 State Score (1-10), lower number is lower risk N ot on file 01/13/2021 Data from: https://www.neighborhoodatlas.medicine.[employer].edu/. Last address used for calculation Not on file 01/13/2021 Sex and Gender Information Value Date Recorded Sex Assigned at Not on file Legal Sex Male 8:57 AM EDT Gender Identity Not on file Sexual Orientation Not on file COVID-19 Exposure Response Date Recorded In the last month, have you been in contact with someone who was confirmed or suspected to have Coronavirus / COVID-19? No / Unsure 01/13/2021 3:49 PM EDT documented as of this encounter Plan of Treatment Upcoming Encounters Date Type Department Care Team (Latest Contact Info) Description 05/01/2025 1:15 PM EDT Appointment Radiology Pet CT [address] [place] [address] [place] [address] Ct Chest with contrast and lab 05/08/2025 2:40 PM EDT Visit (SP) Office Hematology/Oncology [address] [place] [address] [place] [address] Jaya Frank MD [address] [place] [address] [place] [address] Ct Chest with contrast and lab documented as of this encounter Visit Diagnoses Not on filedocumented in this encounter Care Teams Routing Clerk Relationship Specialty Start Date End Date Shaikh Etienne MD [facility] [place] [address] PCP - General Primary Care 01/13/21 Jj Ambrosio MD [address] [place] [address] Police Inspector Cardiology 01/04/22 Jj Ambrosio MD [address] [place] [address] Police Inspector Cardiology 01/04/22 01/04/22 Maliha Lentz DO [address] [place] [address] Internal Medicine 09/15/22 documented as of this encounter
--- OUTSIDE RECORDS SUMMARY | 2025-02-21 13:03 | XMS_ITS | Encounter Summary ---
Author Organization [facility] [employer] Sys tem Address [id number] [address] [place] [address] Care Team Providers Care Inspector Timers Name Role Phone Shaikh ADILENE Etienne Primary Care Provider [phone] Encounter Details Date Type Department Care Team (Late st Contact Info) Description 08/25/2022 [facility]phone [facility] [address] [address] Sarai Whitley, JERONIMO Social History Tobacco Use Types Packs/Day Years [...] Telephone Encounter - Sarai Whitley RN - 08/25/2022 4:[address] with pt advised nodules are small under 6mm Will discuss with Kirti I dont see CC films for comparison He sees cardiology for AAA I explained no PE Kirti will try to obtain CC films for physician review * Telephone Encounter - Kirti Camacho LPN - 08/25/2022 4:20 PM EST Images from the original note were not included. * Telephone Encounter - Kirti Camacho LPN - 08/25/2022 4:20 PM EST Images have been uploaded into PACs. documented in this encounter Plan of Treatment Upcoming Encounters Date Type Department Care Team (Late st Contact Info) Description 08/07/2025 11:45 AM EST Office Visit [facility] Pul[facility]Sleep [facility] [address] [place] [address] Maliha Lentz, DO [address] [address] documented as of this encounter Visit Diagnoses Not on filedocumented in this encounter Care Teams Inspector Timers Relationship Specialty Start Date End Date Shaikh Etienne MD PCP - General Internal Medicine 08/19/22 documented as of this encounter
--- OUTSIDE RECORDS SUMMARY | 2025-02-21 13:03 | XMS_ITS | Encounter Summary ---
Author Organization [facility] Sys tem Address [id number] [address] [place] [address] Care Team Providers Care Buffer Automatic Name Role Phone Shaikh ADILENE Etienne Primary Care Provider [phone] Encounter Details Date Type Department Care Team (Late st Contact Info) Description 02/01/[address] [address] [address] Livier Wolfe RN Social History Tobacco Use Types Packs/Day [...] encounter Miscellaneous Notes * Telephone Encounter - Livier Wolfe RN - 02/01/2023 4:21 PM EDT ----- Message from Maliha Lentz DO sent at 02/01/2023 3:04 PM EDT ----- Please inform patient that culture data has finalized. There is no evidence of AFB (non-tuberculousinfection) infection or tuberculosis. * Telephone Encounter - Livier Wolfe RN - 02/01/2023 4:21 PM EDT Second Language Tutor spoke to patient and informed per Dr Lentz, culture data has finalized. There is no evidence of AFB (non-tuberculous) infection or tuberculosis. Recommend patient to keep f/u appt on 02-02-23 in [place]. Patient agreeable. documented in this encounter Plan of Treatment Upcoming Encounters Date Type Department Care Team (Late st Contact Info) Description 08/07/2025 11:45 AM EST Office Visit [facility] [address] [address] Maliha Lentz DO [address] [address] documented as of this encounter Visit Diagnoses Not on filedocumented in this encounter Care Teams Buffer Automatic Relationship Specialty Start Date End Date Shaikh Etienne MD PCP - General Internal Medicine 08/19/22 documented as of this encounter
--- OUTSIDE RECORDS SUMMARY | 2025-02-21 13:03 | XMS_ITS | Clinical Summary ---
Author Organization [employer] tem Address [id number] [address] [place] [address] Care Team Providers Care Crimper Operator Name Role Phone Shaikh ADILENE Etienne Primary Care Provider [phone] Allergies No known active allergies Medications albuterol (PROVENTIL HFA;VENTOLIN HFA) 90 mcg/actuation inhaler Inhale 2 puffs every 4 (four) hours as needed. Active albuterol (ACCUNEB) 1.25 mg/3 mL nebulizer solution Inhale 3 mL (1.25 mg total) every 6 (six) hours as needed. 2 Active amLODIPine (NORVASC) 10 mg tablet Take 1 tablet (10 mg total) by mouth in the morning. Active aspirin 81 mg Take 1 tablet (81 mg total) by mouth daily. Active atorvastatin (LIPITOR) 40 mg tablet Take 1 tablet (40 mg total) by mouth nightly. 2 Active busPIRone (BUSPAR) 30 mg tablet Take 1 tablet (30 mg total) by mouth in the morning and at bedtime. Active clopidogreL (PLAVIX) 75 mg tablet Take 1 tablet (75 mg total) by mouth in the evening. Active furosemide (LASIX) 40 mg tablet Take 1 tablet (40 mg total) by mouth daily. Active metoprolol succinate XL (TOPROL XL) 50 mg 24 hr tablet Take 1 tablet (50 mg total) by mouth in the evening. Active nitroglycerin (NITROSTAT) 0.4 MG SL tablet DISSOLVE 1 TABLET UNDER THE TONGUE NEEDED FOR CHEST PAIN- MAY REPEAT EVERY 5 MINUTES IF NEEDED ( MAX 3 DOSES.- IF NO RELIEF CALL 911) Active potassium chloride (KLOR-CON M 20) 20 MEQ CR tablet Take 1 tablet (20 mEq total) by mouth in the morning. 2 Active sacubitriL-valsa rtan (ENTRESTO) 97-103 mg tablet Take 1 tablet by mouth in the morning and at bedtime. Active fluticasone-umec lidin-vilanter (TRELEGY ELLIPTA) 200-62.5-25 mcg blister with deviceIndication s:Chronic obstructive pulmonary disease, unspecified COPD type (CMS-HCC) INHALE 1 PUFF BY MOUTH DAILY 60 each 11 5 Active sertraline (ZOLOFT) 50 mg tablet Take 1 tablet (50 mg total) by mouth in the morning. Active Hospital, Clinic, or Other Facility Administered Medication Ordered Dose Route Frequency Start Date End Date Status albuterol (PROVENTIL,VENTOLIN) nebulizer solution 2.5 mgIndications:Chronic obstructive pulmonary disease, unspecified COPD type (CMS-HCC) 2.5 mg nebu Once 02/20/2025 02/20/2025 Ended Active Problems Problem Noted Date Diagnosed Date Dyspnea on exertion 08/18/2022 Chronic diastolic heart failure 01/05/2022 Overview (08/11/2022): Last Assessment & Plan: Assessment: follows up with cardiology, stable and asymptomatic. daily lasix Depression 01/05/2022 Overview (08/11/2022): Last Assessment & Plan: Assessment: managed with med, stable HLD (hyperlipidemia) 01/05/2022 Overview (08/11/2022): Last Assessment & Plan: Assessment: managed with med, stable HTN (hypertension) 01/05/2022 Overview (08/11/2022): Last Assessment & Plan: Assessment: managed with med, stable 01/05/2022 127/59 10/29/2021 119/56 Lung nodules 01/05/2022 Smoker 01/05/2022 Overview (08/11/2022): Last Assessment & Plan: Assessment: 1ppd for 40 years Cancer of trachea, bronchus, and lung 10/29/2021 Overview (08/11/2022): Last Assessment & Plan: Assessment: s/p lobectomy September 2020, stable Follows up with PCP Insomnia 07/07/2020 Carotid artery stenosis 06/19/2020 Aneurysm of thoracic aorta 06/18/2020 Overview (08/11/2022): Last Assessment & Plan: Assessment: follows up with cardiology, stable and unchanged per last ECHO 10/2021. 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 Asymptomatic Left ventricular thrombus 06/18/2020 Overview (08/11/2022): Resolved per Dr. Lisa-anticoagulation was discontinued Chronic obstructive pulmonary disease 06/17/2020 Overview (08/11/2022): Last Assessment & Plan: Assessment: managed with inhalers, stable Coronary arteriosclerosis 06/17/2020 Overview (08/11/2022): Last Assessment & Plan: Assessment: follows up with cardiology, daily aspirin and plavix Systolic heart failure 06/17/2020 Resolved Problems Problem Noted Date Diagnosed Date Resolved Date Panlobular emphysema 07/21/2022 022 Lung mass 06/17/2020 08/18/2022 Encounters Date Type Department Care Team Description 02/20/2025 2:45 PM EDT Office Visit [facility] Pulmonary/Sleep Medicine [address] [place] [id number] Maliha Lentz, Chronic obstructive pulmonary disease, unspecified COPD type [facility] ([facility]x); Lung nodules; Smoker 02/20/2025 11:57 AM EDT - 02/20/2025 11:59 PM EDT Hospital Encounter [facility] - Pulmonary Function [address] [place] [id number] Maliha Lentz DO Chronic obstructive pulmonary disease, unspecified COPD type ([facility] Discharge Disposition: Home 02/20/2025 Travel 02/11/2025 Travel from Last 3 Months Family History Medical History Relation Name Comments Cancer Father Heart disease Father Hypertension Father Diabetes Mother Heart disease Mother Hypertension Mother Relation Name Status Comments Father Mother Social History Tobacco Use Types Packs/Day Years [...] Pulse 50 02/20/2025 2:53 PM EDT Temperature 36.3 C (97.3 F) 12/06/2022 2:27 PM EDT Respiratory Rate 15 12/06/2022 3:55 PM EDT Oxygen Saturation 97% 02/20/2025 2:53 PM EDT Inhaled Oxygen Concentration - - Weight 81.2 kg (179 lb) 02/20/2025 2:53 PM EDT Height 167.6 cm (5' 6 ) 02/20/2025 2:53 PM EDT Body Mass Index 28.89 02/20/2025 2:53 PM EDT Plan of Treatment Upcoming Encounters Date Type Department Care Team (Late st Contact Info) Description 08/07/2025 11:45 AM EST Office Visit [facility]Sleep [facility] [address] [place] [address] Maliha Lentz, [address] [address] Health Maintenance Due Date Last Done Comments Tobacco Counseling 1950 Depression Screening 1963 Adult BMI Follow Up Plan 1969 DTaP,Tdap and Td Vaccines (1 - Tdap) 1970 Zoster (Shingles) Vaccine (1 of 2) 1970 Abdominal Aortic Aneurysm (AAA) Screen 2016 Fall Risk Screening 2016 Influenza Vaccine 05/05/2025 Adult BMI Screening 02/20/2026 02/20/2025 Tobacco Screening 02/20/2026 02/20/2025 Medical Devices Not on file Insurance MEDICARE [place]ICAID [place] Member Subscriber Plan / Payer (Ef fective 2017-Present) Name:Doc Villagran Relation to Subscriber:Self Name:Doc Villagran Payer ID:Not on file Group ID:Not on file Type:Not on file Address: [place] [id number] Care Teams Crimper Operator Relationship Specialty Start Date End Date Shaikh Etienne MD PCP - General Internal Medicine 08/19/22
--- OUTSIDE RECORDS SUMMARY | 2025-02-21 13:03 | XMS_ITS | Encounter Summary ---
Author Organization [facility] Address [address] [facility] [place] [address] Care Team Providers Care Classified Ad Clerk Name Role Phone Shaikh ADILENE Etienne Primary Care Provider [phone] Tom Benton MD Primary Care Provider [phone] Margaret Vasques MANUFACTURING CONTROLS ENGINEER Unavailable [phone] Unallocated, Noms Provider Primary Care Provi alia Tom Benton MD Primary Care Provider [phone] Encounter Details Date Type Department Care Team (Late st Contact Info) Description 02/23/2024 Clinisync Result Encounter [facility] External Department Unsolicited [...] often do you attend chur ch or rastafarian services? Never 10/02/2023 Do you belong to any clubs o r organizations such as taoism groups, unions, fraternal or athletic groups, or [...] Recorded Patient Health Questionnaire-2 Score 0 02/26/2024 [facility]ational Stress Questionnaire [...] place to sleep or slept in a prison (including now)? No 10/02/2023 Sex and Gender [...] pleasure in doing things Not at all 02/26/2024 1:40 PM EDT Lou Garvin M A Feeling down, depressed, or hopeless Not at all 02/26/2024 1:40 PM EDT Lou Garvin M A Patient Health Questionnaire -2 Score 0 02/26/2024 1:40 PM EDT Lou Garvin M A documented as of this encounter Plan of Treatment Upcoming Encounters Date Type Department Care Team (Late st Contact Info) Description 04/02/2025 1:20 PM EDT [facility] Visit [facility] [address] [place] [address] Anayeli Heaton, MANUFACTURING CONTROLS ENGINEER [address] [place] [address] 02/18/2026 4:30 PM EDT Office Visit [facility] [address] [place] [phone] Anayeli He[place], CHELLE [address] [place] [address] documented as of this encounter Procedures Procedure Name Priority Date/Time Associated Diagnosis Comments CT CHEST W IV CONTRAST 02/23/2024 1:20 PM EDT documented in this encounter Results * CT chest w IV contrast (02/23/2024 1:20 PM EDT) Anatomical Region Laterality Modality Body, Chest Computed Tomogra phy 02/23/2024 1:20 PM EDT Narrative 02/26/2024 9:39 AM EDT * * *Final Report* * * DATE OF EXAM: Feb 23 2024 1:20PM [facility] 0539 - CT CHEST [...] CT scan report for the abdomen findings. Osha Inspector (topogram) images: No additional findings. IMPRESSION: 1. Multiple new nodular opacities measuring up to 1 cm. Differential diagnosis includes a combination of infectious/inflammatory etiologies or neoplasm. Consider interval follow-up and/or [...] any questions regarding this interpretation, please call [phone]. If you are unable to reach us at the number above, please feel free to contact [facility] at [phone]. [id number]^[email or web address]^ACN Procedure Note Radiology, Radiologist, - 02/26/2024 * * *Final Report* * * DATE OF EXAM: Feb 23 2024 1:20PM [facility] 0539 - CT CHEST [...] CT scan report for the abdomen findings. Osha Inspector (topogram) images: No additional findings. IMPRESSION: 1. Multiple new nodular opacities measuring up to 1 cm. Differential diagnosis includes a combination of infectious/inflammatory etiologies or neoplasm. Consider interval follow-up and/or [...] any questions regarding this interpretation, please call [phone]. If you are unable to reach us at the number above, please feel free to contact [facility] at [phone]. [id number]^[email or web address]^SI^ACN us Generic External Data Provider IMG CT PROCEDURES Final Result documented in this encounter Visit Diagnoses Not on filedocumented in this encounter Additional Health Concerns Assessment Noted Time PHQ-9 Depression Total Score: 4 10/02/19 24 1:27 PM EST documented as of this encounter Care Teams Classified Ad Clerk Relationship Specialty Start Date End Date Shaikh Etienne MD [address] [place] [address] PCP - General Internal Medicine 09/22/23 04/15/24 Tom Benton MD [address] [place] [address] PCP - General Family Medicine 04/16/24 06/24/24 Unallocated, Noms Provider, [facility] [place] [address] PCP - General Family Medicine 06/25/24 07/03/24 Tom Benton MD [address] [place] [address] PCP - General Family Medicine 07/04/24 Margaret Vasques NP [address] [place] [address] Nurse Practitioner Family Medicine 04/16/24 documented as of this encounter
--- OUTSIDE RECORDS SUMMARY | 2025-02-21 13:03 | XMS_ITS | Encounter Summary ---
Author Organization [employer] Address [id number] [address] [place] [address] Care Team Providers Care Aviation Mechanic Name Role Phone Shaikh ADILENE Etienne Primary Care Provider [phone] Encounter Details Date Type Department Care Team (Late Contact Info) Description 11/24/2022 Telephone [facility] Pulmonary/Sleep Medicine [address] [address] Livier Wolfe, JERONIMO Social History Tobacco Use Types Packs/Day [...] Physicians Pulmonary/Sleep Medicine [address] [place] [phone] Maliha Lentz DO [address] [address] documented as of this encounter Visit Diagnoses Not on filedocumented in this encounter Care Teams Aviation Mechanic Relationship Specialty Start Date End Date Shaikh Etienne MD PCP - General Internal Medicine 08/19/22 documented as of this encounter
--- OUTSIDE RECORDS SUMMARY | 2025-02-21 13:03 | XMS_ITS | Encounter Summary ---
Author Organization [facility] Address [address] [facility] [place] [address] Care Team Providers Care Weigher Production Name Role Phone Shaikh ADILENE Etienne Primary Care Provider [phone] Tom Benton MD Primary Care Provider [phone] Margaret Vasques RESEARCH CHEF Unavailable [phone] Unallocated, Noms Provider Primary Care Provi alia Tom Benton MD Primary Care Provider [phone] Encounter Details Date Type Department Care Team [...] often do you attend chur ch or presybeterian services? Never 10/02/2023 Do you belong to any clubs o r organizations such as hinduism groups, unions, fraternal or athletic groups, or [...] Recorded Patient Health Questionnaire-2 Score 0 02/26/[address] [facility] - Occupational Stress Questionnaire Answer [...] place to sleep or slept in a m[facility]p (including now)? No 10/02/2023 Sex and Gender [...] [facility] [address] [place] [address] Anayeli He[place], RESEARCH CHEF [address] [place] [address] 02/18/2026 4:30 PM EDT Office Visit [facility] [address] [place] [address] Anayeli [place], CHELLE [address] [place] [address] documented as of this encounter Procedures Procedure Name Priority Date/Time Associated Diagnosis Comments CT ABD/PEL W IVCON 02/23/2024 1: 20 PM EDT documented in this encounter Results * CT ABD/PEL W IVCON (02/23/2024 1:20 PM EDT) Anatomical Region Laterality Modality Other 02/23/2024 1:20 PM EDT Narrative 02/26/2024 9:39 AM EDT * * *Final Report* * * DATE OF EXAM: Feb 23 2024 1:20PM [facility] 0530 - CT ABD/PEL W [...] Lymph nodes: No abdominal or pelvic lymphadenopathy. Mesentery/Peritoneum: No ascites or mass. Retroperitoneum: No [...] chest CT performed will be reported separately. Assistant Professor Of Business (topogram) images: No additional findings. IMPRESSION: 1. Nonspecific 2.1 cm hypodensity in the dome of the liver, stable since 01/04/23. 2. No evidence of new intra-abdominal/pelvic abnormalities. 3. Fat-containing right inguinal hernia. Transcribe Date/Time: Feb 26 2024 9:08A Dictated by: ARNEL SAUCEDA MD This examination was interpreted and the report reviewed and electronically signed by: ARNEL SAUCEDA MD on Feb 26 2024 9:37AM EST Thank you for allowing us to participate in the care of your patient. Should there be any questions regarding this interpretation, please call [phone]. If you are unable to reach us at the number above, please feel free to contact [facility] at [phone]. [id number]^[email or web address]^ACN Procedure Note Radiology, Radiologist, - 02/26/2024 * * *Final Report* * * DATE OF EXAM: Feb 23 2024 1:20PM [facility] 0530 - CT ABD/PEL W [...] Lymph nodes: No abdominal or pelvic lymphadenopathy. Mesentery/Peritoneum: No ascites or mass. Retroperitoneum: No [...] chest CT performed will be reported separately. Assistant Professor Of Business (topogram) images: No additional findings. IMPRESSION: 1. Nonspecific 2.1 cm hypodensity in the dome of the liver, stable since 01/04/23. 2. No evidence of new intra-abdominal/pelvic abnormalities. 3. Fat-containing right inguinal hernia. Transcribe Date/Time: Feb 26 2024 9:08A Dictated by: ARNEL SAUCEDA MD This examination was interpreted and the report reviewed and electronically signed by: ARNEL SAUCEDA MD on Feb 26 2024 9:37AM EST Thank you for allowing us to participate in the care of your patient. Should there be any questions regarding this interpretation, please call [phone]. If you are unable to reach us at the number above, please feel free to contact [facility] at [phone]. [id number]^AGFA_[email or web address]^SI^ACN us Generic External Data Provider [facility] Final Result documented in this encounter Visit Diagnoses Not on filedocumented in this encounter Additional Health Concerns Assessment Noted Time PHQ-9 Depression Total Score: 4 10/02/19 24 1:27 PM EST documented as of this encounter Care Teams Weigher Production Relationship Specialty Start Date End Date Shaikh Etienne MD [address] [place] [phone] PCP - General Internal Medicine 09/22/23 04/15/24 Tom Benton MD [address] [place] [address] PCP - General Family Medicine 04/16/24 06/24/24 Unallocated, Kacey Canada MD [address] [place] [address] PCP - General Family Medicine 06/25/24 07/03/24 Tom Benton MD [address] [place] [address] PCP - General Family Medicine 07/04/24 Margaret Vasques NP [address] [place] [address] Nurse Practitioner Family Medicine 04/16/24 documented as of this encounter
--- OUTSIDE RECORDS SUMMARY | 2025-02-21 13:03 | XMS_ITS | Encounter Summary ---
Author Organization [facility] HospitalStyleFe[facility] [employer] Address [facility]-[id number] [address] [place] [address] Care Team Providers Care Bullet Slugs Inspector Name Role Phone Shaikh ADILENE Etienne Primary Care Provider [phone] Encounter Details Date Type Department Care Team (Late st Contact Info) Description 11/23/2022 Telephone [facility] [address] [address] Livier Wolfe RN Social History [...] Telephone Encounter - Livier Wolfe RN - 11/23/2022 7:[address] Lentz: Discussed with patient's oncologist again from [facility] following Mr. Villagran's follow up there. Dr. Frank in agreement to proceed with bronchoscopy with BAL and Mr. Villagran is also agreeable. This will be done with moderate sedation bronchoscopy with BAL for culture data in setting of multiple pulmonary nodules, +TB quantiferon GOLD and prior history of lymph node biopsy in 2020 revealing noncaseating granuloma. Patient does not have active cough. 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 I requested MOD SED (not MAC). ASA II and Mallampati I * Telephone Encounter - Livier Wolfe RN - 11/23/2022 7:17 AM EDT Service Station Helper spoke to patient and informed of the following: Bronch with BAL & MOD SED procedure is scheduled for Tuesday, December 06, 2022 at 2:30 pm . Patient to [facility] to [facility] at 1:30 pm. Patient to report to Entrance B and go to information desk and they will direct patient to admitting or the surgery waiting room. Patient will need to complete labs on Monday, December 05, 2022 To prepare for the procedure, the patient must do the following: ?? Nothing to eat or drink after 6:00 am on day of procedure. ?? No aspirin or aspirin containing products five days prior to procedure. ONLY TYLENOL ?? Per Dr Ambrosio stated patient to hold Plavix 5 days prior to procedure. Patient to take last dose on 11-30-22 and to start holding Plavix on 12-01-22 ?? Make arrangements for a solid waste truck driver to bring you to and from the hospital on the day of the procedure ?? Bring your ID, current medication list and insurance cards to the hospital ?? Call our office if you become ill such as a cold, cough, fever, sore throat or vomiting on the day before or day of the procedure Patient agreeable to above information and verbalized understanding Service Station Helper to update Dr Lentz Case #[id number] documented in this encounter Plan of Treatment Upcoming Encounters Date Type Department Care Team (Late st Contact Info) Description 08/07/2025 11:45 AM EST Office Visit [facility] [address] [place] [address] Maliha Lentz, DO [address] [place] [address] documented as of this encounter Results * Protime & INR (12/05/2022 11:28 AM EDT) Protime 12.8 9.8 - 13.2 sec 12/05/2022 12:32 PM EDT [facility] Comment:NEW REFERENCE RANGE Inr 1.1 0.8 - 1.1 12/05/2022 12:32 PM EDT [facility] PLASMA 12/05/2022 11:2 8 AM EDT 12/05/2022 11:29 AM EDT us Maliha Lentz DO LAB BLOOD ORDERABLES Final Re sult [address], [place] [address] * (ABNORMAL) Basic Metabolic Panel (12/05/2022 11:28 AM EDT) Sodium 142 134 - 146 mmol/L 12/05/2022 3:51 PM EDT [facility] Potassium, Bld 3.7 3.5 - 5.0 mmol/L 12/05/2022 3:51 PM EDT [facility] Chloride 107 98 - 109 mmol/L 12/05/2022 3:51 PM EDT [facility] CO2 25 22 - 32 mmol/L 12/05/2022 3:51 PM EDT [facility] Anion gap 10 5 - 15 mmol/L 12/05/2022 3:51 PM EDT [facility] BUN 16 5 - 27 mg/dL 12/05/2022 3:51 PM EDT [facility] Creatinine 1.03 0.60 - 1.30 mg/dL 12/05/2022 3:51 PM EDT [facility] Comment:METHOD TRACEABLE TO IDMS STANDARD Glucose 105(H) 65 - 99 mg/dL 12/05/2022 3:51 PM EDT [facility] Calcium 8.8 8.5 - 10.5 mg/dL 12/05/2022 3:51 PM EDT [facility] eGFR (CKD-EPI)non-ra ce dependent 78 >59 ml/min/1.7 3sq.m 12/05/2022 3:51 PM EDT [facility] Comment: Reported eGFR is based on the CKD-EPI 2020 equation that does not use a race coefficient. PLASMA 12/05/2022 11:2 8 AM EDT 12/05/2022 11:29 AM EDT us Maliha Lentz DO LAB BLOOD ORDERABLES Final Re sult [employer] [facility] [address] [place] [address] * (ABNORMAL) CBC auto differential (12/05/2022 11:28 AM EDT) White Blood Cells 9.2 4.0 - 11.0 X10E9/L 12/05/2022 1:47 PM EDT [facility] RBC count 4.36 4.10 - 5.70 X10E12/L 12/05/2022 1:47 PM EDT [facility] Hemoglobin 13.3 13.0 - 17.0 g/dL 12/05/2022 1:47 PM EDT [facility] Hematocrit 39.7 39 - 49 % 12/05/2022 1:47 PM EDT [facility] MCV 91 80 - 100 fL 12/05/2022 1:47 PM EDT [facility] MCH 30.6 27 - 34 pg 12/05/2022 1:47 PM EDT [facility] MCHC 33.6 32 - 36 g/dL 12/05/2022 1:47 PM EDT [facility] RDW 13.7 11.5 - 15.0 % 12/05/2022 1:47 PM EDT [facility] Platelets 281 150 - 450 X10E9/L 12/05/2022 1:47 PM EDT [facility] MPV 7.6 7 - 12 fL 12/05/2022 1:47 PM EDT [facility] % neutrophils 64.3 % 12/05/2022 1:47 PM EDT [facility] % lymphocytes 18.9 % 12/05/2022 1:47 PM EDT [facility] % monocytes 13.1 % 12/05/2022 1:47 PM EDT [facility] % eosinophils 2.9 % 12/05/2022 1:47 PM EDT [facility] % Basophils 0.8 % 12/05/2022 1:47 PM EDT [facility] Neutrophils Absolute (A) 5.9 1.5 - 6.6 X10E9/L 12/05/2022 1:47 PM EDT [facility] Lymphocytes Absolute 1.7 1.0 - 3.5 X10E9/L 12/05/2022 1:47 PM EDT [facility] Monocytes Absolute 1.2(H) 0 - 0.9 X10E9/L 12/05/2022 1:47 PM EDT [facility] Eosinophils Absolute 0.3 0.0 - 0.4 X10E9/L 12/05/2022 1:47 PM EDT [facility] Basophils Absolute 0.1 0.0 - 0.2 X10E9/L 12/05/2022 1:47 PM EDT [facility] Blood / Unknown 12/05/2022 1 1:28 AM EDT 12/05/2022 11:29 AM EDT us Maliha M Tor DO LAB BLOOD ORDERABLES Final Re sult [facility] [address] [facility] [facility] [place] [address] * APTT (12/05/2022 11:28 AM EDT) aPTT 35 26 - 37 sec 12/05/2022 12:32 PM EDT [facility] Comment:NEW REFERENCE RANGE PLASMA 12/05/2022 11:2 8 AM EDT 12/05/2022 11:29 AM EDT us Maliha Castro Tor LIEBERMAN LAB BLOOD ORDERABLES Final Re sult Performing Organization Address [facility] Co de Phone Number [facility] [address] [place] [address] documented in this encounter Visit Diagnoses Diagnosis SOB (shortness of breath)- Primary Shortness of breath documented in this encounter Care Teams Bullet Slugs Inspector Relationship Specialty Start Date End Date Shaikh Etienne MD PCP - General Internal Medicine 08/19/22 documented as of this encounter
--- OUTSIDE RECORDS SUMMARY | 2025-02-21 13:03 | XMS_ITS | Encounter Summary ---
Author Organization [facility] Address [facility]-[id number] [address] [place] [address] Care Team Providers Care World Language Teacher Name Role Phone Shaikh ADILENE Etienne Primary Care Provider [phone] Encounter Details Date Type Department Care Team (Latest Contact Info) Description 02/20/2025 Travel Social History Tobacco Use Types Packs/Day Years [...] Office Visit [facility] [address] [facility] [place] [address] Maliha Lentz, DO [address] [address] documented as of this encounter Visit Diagnoses Not on filedocumented in this encounter Care Teams World Language Teacher Relationship Specialty Start Date End Date Shaikh Etienne MD PCP - General Internal Medicine 08/19/22 documented as of this encounter
--- OUTSIDE RECORDS SUMMARY | 2025-02-21 13:03 | XMS_ITS | Encounter Summary ---
Author Organization [facility] Address [address] [facility] [place] [address] Care Team Providers Care Learning And Development Assistant Name Role Phone Tom Benton MD Primary Care Provider [phone] Margaret Vasques NP Unavailable [phone] Unallocated, Noms Provider Primary Care Provi alia Tom Benton MD Primary Care Provider [phone] Encounter Details Date Type Department Care Team (Late st Contact Info) Description 04/18/2024 Clinisync Result Encounter [facility] Department Unsolicited [...] often do you attend chur ch or judaism services? Never 10/02/2023 Do you belong to any clubs o r organizations such as latter day groups, unions, fraternal or athletic groups, or [...] Recorded Patient Health Questionnaire-2 Score 0 02/26/2024 [facility] - Occupational Stress Questionnaire Answer Date [...] place to sleep or slept in a assisted (including now)? No 10/02/2023 Sex and Gender [...] Visit [facility] [address] [place] [address] Anayeli Heaton NP [address] [place] [address] 02/18/2026 4:30 PM EDT Office Visit [facility] [address] [address] Anayeli Heaton NP [address] [place] [address] documented as of this encounter Procedures Procedure Name Priority Date/Time Associated Diagnosis Comments CT CHEST W IV CONTRAST 04/18/2024 11:04 AM EDT documented in this encounter Results * CT chest w IV contrast (04/18/2024 11:04 AM EDT) Anatomical Region Laterality Modality Body, Chest Computed Tomogra phy 04/18/2024 11:0 4 AM EDT Narrative 04/18/2024 3:32 PM EDT * * *Final Report* * * DATE OF EXAM: Apr 18 2024 11:04AM [facility] 0539 - CT CHEST W IVCON / PROCEDURE REASON: multiple diagnoses * * * * Physician Interpretation * * * * RESULT: EXAMINATION: CHEST CT WITH CONTRAST CLINICAL HISTORY: Lung nodules Malignant neoplasm of unspecified part of unspecified bronchus or lung (HCC) Technique: Spiral CT acquisition of the chest from the thoracic inlet to the upper abdomen following IV contrast. MQ: CTCWR_5 Contrast: 50 mL Omnipaque [address] Dose-Length Product: 300 mGy*cm CT Dose Reduction Employed: Automated exposure control (AEC) Comparison: 02/23/2024 and 11/10/2023 RESULT: Lines, tubes, and devices: None. Lung parenchyma and airways: Trachea and central airways are patent. Biapical pleuroparenchymal scarring. Right upper lobectomy. Complete right middle lobe atelectasis. Multiple scattered nodular opacities. Index nodules are as follows: * 0.9 cm right lower lobe nodule previously 1 cm * 0.7 cm right lower lobe nodule (image 81) previously 1.1 cm * 0.8 cm left lower lobe nodule (122), unchanged * 0.6 cm left upper lobe nodule (image 74) previously 1 mm Pleural space: No pleural effusion or pneumothorax. Lower neck, lymph nodes, and mediastinum: No axillary, supraclavicular, mediastinal or hilar lymphadenopathy by CT size criteria. Heart, pericardium, and thoracic vessels: The heart is normal in size. No pericardial effusion. Ascending aorta is dilated measuring 4.8 cm. Aortic valve replacement. Main pulmonary artery is normal caliber. Atherosclerotic calcifications of the thoracic aorta and coronary arteries. Bones/Soft Tissues: Median sternotomy. No aggressive osseous lesions. Remote right-sided rib fractures. Gynecomastia. Upper abdomen: Visualized upper abdomen is grossly unremarkable. Rehab Therapist (topogram) images: Unremarkable. IMPRESSION: Mixed response to therapy as described. Transcribe Date/Time: Apr 18 2024 3:13P Dictated by: STANLEY SMITH MD This examination was interpreted and the report reviewed and electronically signed by: STANLEY SMITH MD on Aug 15 2024 3:29PM EST Thank you for allowing us to participate in the care of your patient. Should there be any questions regarding this interpretation, please call [phone]. If you are unable to reach us at the number above, please feel free to contact [facility] at [phone]. [id number] Procedure Note Radiology, Radiologist, - 04/18/2024 * * *Final Report* * * DATE OF EXAM: Apr 18 2024 11:04AM [facility] 0539 - CT CHEST W IVCON / PROCEDURE REASON: multiple diagnoses * * * * Physician Interpretation * * * * RESULT: EXAMINATION: CHEST CT WITH CONTRAST CLINICAL HISTORY: Lung nodules Malignant neoplasm of unspecified part of unspecified bronchus or lung (HCC) Technique: Spiral CT acquisition of the chest from the thoracic inlet to the upper abdomen following IV contrast. MQ: CTCWR_5 Contrast: 50 mL Omnipaque [address] Dose-Length Product: 300 mGy*cm CT Dose Reduction Employed: Automated exposure control (AEC) Comparison: 02/23/2024 and 11/10/2023 RESULT: Lines, tubes, and devices: None. Lung parenchyma and airways: Trachea and central airways are patent. Biapical pleuroparenchymal scarring. Right upper lobectomy. Complete right middle lobe atelectasis. Multiple scattered nodular opacities. Index nodules are as follows: * 0.9 cm right lower lobe nodule previously 1 cm * 0.7 cm right lower lobe nodule (image 81) previously 1.1 cm * 0.8 cm left lower lobe nodule (122), unchanged * 0.6 cm left upper lobe nodule (image 74) previously 1 mm Pleural space: No pleural effusion or pneumothorax. Lower neck, lymph nodes, and mediastinum: No axillary, supraclavicular, mediastinal or hilar lymphadenopathy by CT size criteria. Heart, pericardium, and thoracic vessels: The heart is normal in size. No pericardial effusion. Ascending aorta is dilated measuring 4.8 cm. Aortic valve replacement. Main pulmonary artery is normal caliber. Atherosclerotic calcifications of the thoracic aorta and coronary arteries. Bones/Soft Tissues: Median sternotomy. No aggressive osseous lesions. Remote right-sided rib fractures. Gynecomastia. Upper abdomen: Visualized upper abdomen is grossly unremarkable. Rehab Therapist (topogram) images: Unremarkable. IMPRESSION: Mixed response to therapy as described. Transcribe Date/Time: Apr 18 2024 3:13P Dictated by: STANLEY SMITH MD This examination was interpreted and the report reviewed and electronically signed by: STANLEY SMITH MD on Apr 18 2024 3:29PM EST Thank you for allowing us to participate in the care of your patient. Should there be any questions regarding this interpretation, please call [phone]. If you are unable to reach us at the number above, please feel free to contact [facility] at [phone]. [id number] us Generic External Data Provider IMG CT PROCEDURES Final Result documented in this encounter Visit Diagnoses Not on filedocumented in this encounter Additional Health Concerns Assessment Noted Time PHQ-9 Depression Total Score: 4 10/02/19 24 1:27 PM EST documented as of this encounter Care Teams Learning And Development Assistant Relationship Specialty Start Date End Date Tom Benton MD [address] [place] [phone] PCP - General Family Medicine 04/16/24 06/24/24 Unallocated, Kacey Canada MD [address] [place] [address] PCP - General Family Medicine 06/25/24 07/03/24 Tom Benton MD [address] [place] [address] PCP - General Family Medicine 07/04/24 Margaret Vasques NP [address] [place] [address] Nurse Practitioner Family Medicine 04/16/24 documented as of this encounter
--- OUTSIDE RECORDS SUMMARY | 2025-02-21 13:03 | XMS_ITS | Encounter Summary ---
Author Organization [facility] Address [id number] [address] [place] [address] Care Team Providers Care Final Inspector Name Role Phone Shaikh ADILENE Etienne Primary Care Provider [phone] Encounter Details Date Type Department Care Team (Latest Contact Info) Description 02/11/2025 Travel Social History Tobacco Use Types Packs/Day [...] Office Visit [facility] [address] [address] Maliha Lentz, DO [address] [address] documented as of this encounter Visit Diagnoses Not on filedocumented in this encounter Care Teams Final Inspector Relationship Specialty Start Date End Date Shaikh Etienne MD PCP - General Internal Medicine 08/19/22 documented as of this encounter
--- OUTSIDE RECORDS SUMMARY | 2025-02-21 13:03 | XMS_ITS | Encounter Summary ---
Author Organization [facility] Address [address] [place] [address] Care Team Providers Care Geological Survey Field Assistant Name Role Phone Shaikh ADILENE Etienne Primary Care Provider [phone] Tom Benton MD Primary Care Provider [phone] Margaret Vasques CONDITIONER TENDER Unavailable [phone] Unallocated, Noms Provider Primary Care Provi alia Tom Benton MD Primary Care Provider [phone] Encounter Details Date Type Department Care Team (Late st Contact Info) Description 02/27/2024 Clinisync Result Encounter [facility] Unsolicited Shaikh Etienne MD [address] [place] [phone] Social History Tobacco Use Types Packs/Day Years [...] How often do you attend chur or jain services? Never 10/02/2023 Do you belong to any clubs o r organizations such as mu-ism groups, unions, fraternal or athletic groups, or [...] 02/26/2024 [facility] - Occupational Stress Questionnaire Answer Date [...] place to sleep or slept in a jail (including now)? No 10/02/2023 Sex and Gender [...] Office Visit [facility] [address] [place] [address] Anayeli Heaton NP [address] [place] [phone] 02/18/2026 4:30 PM EDT Office Visit [facility] [address] [place] [address] Anayeli Heaton NP [address] [place] [phone] documented as of this encounter Procedures Procedure Name Priority Date/Time Associated Diagnosis Comments CT HEAD/BRAIN WO 02/27/2024 2:40 PM EDT documented in this encounter Results * CT HEAD/BRAIN WO (02/27/2024 2:40 PM EDT) Anatomical Region Laterality Modality Radiographic Abby ging 02/27/2024 2:40 PM EDT Narrative 02/27/2024 2:43 [place] [address] CT Scan Report Signed Patient: DOC VILLAGRAN MR#: [id number] : 1950 Acct:[id number] Age/Sex: 73 / M ADM Date: 02/27/24 Loc: CT Attending Dr: Shaikh Lowell Quevedo Ordering Physician: Shaikh Sae Etienne Date of Service: 02/27/24 Procedure(s): CT head/brain wo con Accession Number(s): [id number] cc: Shaikh Sae Etienne [place] [address] Patient Name: DOC VILLAGRAN MRN: [id number] date: 1950 Sex: M Assigned Patient Location: CT Current Patient Location: CT Accession/Order Number: [id number] Exam Date: 02/27/2024 13:06 Report Date: 02/27/2024 14:40 At the request of: SHAIKH LOWELL Procedure: CT head/brain wo con EXAM: CT head/brain wo con HISTORY: TRAUMATIC INJURY OF HEAD S09.90XA COMPARISON: None. TECHNIQUE: Axial CT scans through the head were obtained without IV contrast administration. Dose reduction techniques were achieved by using: automated exposure control and/or adjustment of mA and /or kV according to patient size and/or use of iterative reconstruction technique. FINDINGS: There is no evidence of acute intracranial hemorrhage or abnormal extra-axial fluid collection. No mass effect or midline shift is seen. There is no evidence of large acute territorial infarction. There is no hydrocephalus. The cortical sulci and ventricles are within normal limits for the age. To the limit of CT, the posterior fossa appears unremarkable. There are mild atherosclerotic calcifications of bilateral cavernous carotid arteries There is mildly displaced left nasal bone fracture. There are surgical alysha along the right inferior and lateral orbital wall. The visualized orbits show no abnormality. There is near complete opacification of partially visualized right maxillary sinus with fluid density and mucoperiosteal thickening of bilateral frontal, left maxillary sinuses and ethmoid air cells. Mastoid air cells are clear. CT/CT head/brain wo con IMPRESSION: No CT evidence of acute intracranial abnormality. Age indeterminate mildly displaced left nasal bone fracture. Partially visualized postsurgical changes along the right inferior and lateral orbital wall. Paranasal sinus disease, as described. Recommend clinical correlation for acute sinusitis. Electronically authenticated by: GIORGIO HI Date: 02/27/2024 14:40 Dictated By: GIORGIO HI M.D. Signed By: 02/27/24 1443 DD/ 1440 TD/TT: Lab Associate: Procedure Note Radiology, Radiologist, MD - 02/27/2024 [place] [address] CT Scan Report Signed Patient: DOC VILLAGRANMR#: [id number] : 1950cct:[id number] Age/Sex: 73 / MADM Date: 02/27/24 Loc: CT Attending Dr: Shaikh Lowell Quevedo Ordering Physician: Shaikh Sae Etienne Date of Service: 02/27/24 Procedure(s): CT head/brain wo con Accession Number(s): [id number] cc: Shaikh Sae Etienne [place] [address] Patient Name: DOC VILLAGRAN MRN: [id number] date: 1950 Sex: M Assigned Patient Location: CT Current Patient Location: CT Accession/Order Number: [id number] Exam Date: 02/27/2024 13:06 Report Date: 02/27/2024 14:40 At the request of: SHAIKH LOWELL Procedure: CT head/brain wo con EXAM: CT head/brain wo con HISTORY: TRAUMATIC INJURY OF HEAD S09.90XA COMPARISON: None. TECHNIQUE: Axial CT scans through the head were obtained without IVcontrast administration. Dose reduction techniques were achieved by using:automated exposure control and/or adjustment of mA and /or kV according to patientsize and/or use of iterative reconstruction technique. FINDINGS: There is no evidence of acute intracranial hemorrhage or abnormalextra-axial fluid collection. No mass effect or midline shift is seen. There is no evidence of large acute territorial infarction. There is no hydrocephalus. The cortical sulci and ventricles are within normal limitsfor the age. To the limit of CT, the posterior fossa appears unremarkable. There aremild atherosclerotic calcifications of bilateral cavernous carotid arteries There is mildly displaced left nasal bone fracture. There are surgicalstaples along the right inferior and lateral orbital wall. The visualized orbitsshow no abnormality. There is near complete opacification of partially visualized rightmaxillary sinus with fluid density and mucoperiosteal thickening of bilateralfrontal, left maxillary sinuses and ethmoid air cells. Mastoid air cells are clear. CT/CT head/brain wo con IMPRESSION: No CT evidence of acute intracranial abnormality. Age indeterminate mildly displaced left nasal bone fracture. Partially visualized postsurgical changes along the right inferior and lateralorbital wall. Paranasal sinus disease, as described. Recommend clinical correlation for acute sinusitis. Electronically authenticated by: GIORGIO HI Date: 02/27/2024 14:40 Dictated By: GIORGIO HI M.D. Signed By:02/27/24 1443 DD/ 1440 TD/TT: Lab Associate: us Shaikh Lowell HEAD IMG XR PROCEDURES Final Result documented in this encounter Visit Diagnoses Not on filedocumented in this encounter Additional Health Concerns Assessment Noted Time PHQ-9 Depression Total Score: 4 10/02/19 24 1:27 PM EST documented as of this encounter Care Teams Geological Survey Field Assistant Relationship Specialty Start Date End Date Shaikh Etienne MD [address] [place] [address] PCP - General Internal Medicine 09/22/23 04/15/24 Tom Benton MD [address] [place] [phone] PCP - General Family Medicine 04/16/24 06/24/24 Unallocated, Kacey Canada MD [address] [place] [address] PCP - General Family Medicine 06/25/24 07/03/24 Tom Benton MD [address] [place] [phone] PCP - General Family Medicine 07/04/24 Margaret Vasques NP [address] [place] [phone] Nurse Practitioner Family Medicine 04/16/24 documented as of this encounter
== END 2025-02-21 13:00 | disposition home or self-care (01) ==
LOC: CARD 13:00
PROVIDERS: PCP Nurse Practitioner; Visit Provider Internal Medicine Interventional Cardiology
DX: Z95.3 Presence of xenogenic heart valve (principal); I71.21 Aneurysm of the ascending aorta, without rupture
CPT/HCPCS: 93306

== ENCOUNTER 2025-04-07 09:23 | Outpatient (OUT) | payer MEDICARE, MEDICAID, SELFPAY ==
--- OUTSIDE RECORDS SUMMARY | 2025-03-31 13:00 | XMS_ITS | Encounter Summary ---
Author Organization [facility] Address [address] [place] [address] Care Team Providers Care Speech Coach Name Role Phone Anayeli Heaton MD Primary Care Provider [phone] Encounter Details Date Type Department Care Team (Late st Contact Info) Description 03/31/2025 1:00 PM EDT Office Visit [facility] at [facility] [address] [place] [address] Jj Ambrosio MD [address] [facility] [address] [facility] [place] [address] Coronary artery disease involving [facility] m[facility] ira coronary artery of [facility] ira heart with other form of angina pectoris (Primary Dx); S/P aortic valve replacement with bioprosthetic valve; Aneurysm of ascending aorta without rupture; Bilateral carotid artery stenosis; History of coronary artery bypass graft; Heart failure with improved ejection fraction (HFimpEF) (CMS/HCC); S/P left atrial appendage ligation Social History Tobacco Use Types Packs/Day Years [...] Information Value Date Recorded Sex Assigned at Male 03/31/2025 12:56 PM EDT Legal Sex Male 12:31 AM EDT Gender Identity Male 03/31/2025 12:56 PM EDT Sexual Orientation Heterosexual or Straight 03/05 12:56 PM EDT documented as of this encounter Last Filed Vital Signs Vital Sign Reading Time Taken Comments Blood Pressure 111/53 03/31/2025 1:03 PM EDT Pulse 58 03/31/2025 1:03 PM EDT Temperature - - Respiratory Rate - - Oxygen Saturation 98% 03/31/2025 1:03 PM EDT Inhaled Oxygen Concentration - - Weight 80.7 kg (178 lb) 03/31/2025 1:03 PM EDT Height 172.7 cm (5' 8 ) 03/31/2025 1:03 PM EDT Body Mass Index 27.06 03/31/2025 1:03 PM EDT documented in this encounter Progress Notes * Jj Ambrosio MD - 03/31/2025 1:00 PM EDT Images from the original note were not included. [place] [facility] Subjective Doc Villagran is a 75 y.o. year old male patient being seen for 1 year follow up CAD, AAA, hx of aortic valve replacement, carotid artery stenosis, and chronic systolic heart failure. Had echo and PFT's last month. Says chest pain, ZHAO, and palpitations are unchanged from last year's visit. Patient Active Problem List Diagnosis Aneurysm of [...] Presence of prosthetic heart valve Tobacco dependence Constipation GERD (gastroesophageal reflux disease) Head trauma Left leg pain Family History Problem Relation Name Age of Onset Diabetes Mother Heart disease Mother Heart disease Father Coronary artery disease Sister Social History Tobacco Use Smoking status: Every Day Current packs/day: 1.00 Types: Cigarettes Smokeless tobacco: Never Substance Use Topics Alcohol use: Yes Comment: occasional Drug use: Never SINCERE Roach is seen in follow-up. He is a 75-year-old man who has history of coronary artery disease, aortic valve stenosis, systolicheart failure, and left-ventricular thrombus that was not seen on intraoperative AJAY. In June 2020 he underwent cardiac surgery including bypass surgery and aortic valve replacement with a bioprosthetic aortic valve, and exclusion of left atrial appendage with 40 mm atrial clip device. His ejecti on fraction improved to 40% post CABG. [Prior [...] lobectomy for lung cancer on 09/24/[address] [facility] with Dr. Lisa. He was admitted to the [facility] in February 2021 with atypical chest pain. He ruled out for myocardial infarction by high-sensitivity troponin. He was admitted on 10/24/2021 to the [facility] with decompensated heart failure and COPD exacerbation. [...] April 2023 he was evaluated in the [facility] emergency room because of worsening shortness of breath. D-dimers were elevated and a CT of the chest showed no pulmonary embolism and the ascending aortic aneurysm measured at 4.0 cm. Today he reports that he continues to have episodes of chest pain located on the left side of the chest. Has chronic shortness of breath that seem to have worsened. No significant lower extremity swelling. No palpitations. He recently underwent an echocardiogram that showed normal ventricular and valvular function. In addition PFTs could not explain the shortness of breath. He continues to smoke. Review of Systems Constitutional: Positive for malaise/fatigue and weight loss (14# since March 2024). Cardiovascular: Positive for chest pain, dyspnea on exertion and palpitations ( every so often ). Musculoskeletal: Positive for falls (1 episode). Neurological: Positive for light-headedness (1 episode), loss of balance (1 episode) and weakness. All other systems reviewed and are negative. Objective Visit Vitals BP 111/53 (BP Location: Left arm, Patient Position: Sitting) Pulse 58 Ht 1.727 m (5' 8 ) Wt 80.7 kg (178 lb) SpO2 98% BMI 27.06 kg/m?? Smoking Status Every Day BSA 1.97 m?? Physical Exam Constitutional: Appearance: He is well-developed. [...] General: Skin is warm and dry. Neurological: General: No focal deficit present. Mental Status: He is alert and oriented to person, place, and time. Psychiatric: Mood and Affect: Mood normal. Behavior: Behavior is cooperative. Judgment: Judgment normal. Allergies No Known Allergies Medications Current Outpatient Medications: albuterol 2.5 mg /3 mL (0.083 %) nebulizer solution, Take 2.5 mg by nebulization every 6 (six) hours if needed for wheezing., Disp: , Rfl: albuterol 90 mcg/actuation inhaler, INHALE 2 PUFFS BY MOUTH EVERY 4 TO 6 HOURS NEEDED SHORTNESS OF BREATH and FOR WHEEZING, Disp: , Rfl: amLODIPine (Norvasc) 10 mg tablet, Take 1 tablet by mouth in the morning., Disp: , Rfl: aspirin 81 mg EC tablet, Take 1 tablet every day by oral route., Disp: , Rfl: atorvastatin (Lipitor) 40 mg tablet, Take 1 tablet by mouth at bedtime., Disp: , Rfl: busPIRone (Buspar) 15 mg tablet, Take 1 tablet by mouth in the morning, afternoon, and at bedtime.,Disp: , Rfl: clopidogrel (Plavix) 75 mg tablet, Take 1 tablet by mouth in the morning., Disp: , Rfl: xhcgnbcmbmr-jelnfrotu-fwlvxljg (Trelegy Ellipta) 100-62.5-25 mcg blister with device, Inhale., Disp: , Rfl: furosemide (Lasix) 40 mg tablet, Take 1 tablet by mouth in the morning., Disp: , Rfl: Linzess 145 mcg capsule, TAKE 1 CAPSULE BY MOUTH IN THE MORNING BEFORE MEALS DO NOT CRUSH OR CHEW, Disp: , Rfl: metoprolol succinate XL (Toprol-XL) 100 mg 24 hr tablet, Take 1 tablet (100 mg) by mouth once dailyas directed., Disp: 90 tablet, Rfl: 3 nitroglycerin (Nitrostat) 0.4 mg SL tablet, DISSOLVE 1 TABLET UNDER THE TONGUE NEEDED FOR CHEST PAIN- MAY REPEAT EVERY 5 MINUTES IF NEEDED ( MAX 3 DOSES.- IF NO RELIEF CALL 911), Disp: , Rfl: potassium chloride CR (Klor-Con M10) 10 mEq ER tablet, Take 1 tablet by mouth in the morning., Disp: , Rfl: sacubitril-valsartan (Entresto) 97-103 mg tablet, Take 1 tablet by mouth two times daily., Disp: 60tablet, Rfl: 11 sertraline (Zoloft) 100 mg tablet, Take 100 mg by mouth in the morning., Disp: , Rfl: sildenafil (Viagra) 25 mg tablet, TAKE 1 TABLET BY MOUTH 30 MINUTES BEFORE sexual activity, Disp: ,Rfl: spironolactone (Aldactone) 25 mg tablet, Take 1 tablet (25 mg) by mouth in the morning., Disp: 90 tablet, Rfl: 3 zolpidem (Ambien) 10 mg tablet, Take 10 mg by mouth in the morning., Disp: , Rfl: Recent Labs No visits with results within 6 Month(s) from this visit. Latest known visit with results is: [facility] Encounter on 09/08/2020 Component Date Value Ventricular Rate 09/08/2020 59 Atrial Rate 09/08/2020 59 GA Interval 09/08/2020 208 QRS DURATION 09/08/2020 110 QT Interval 09/08/2020 444 QTC CALCULATION(BEZET) 09/08/2020 439 P Toutle 09/08/2020 41 R-Toutle 09/08/2020 -14 T Wave Toutle 09/08/2020 140 Diagnosis 09/08/2020 Value:Sinus bradycardia Septal infarct , age undetermined ST & T wave abnormality, consider lateral ischemia Abnormal ECG No previous ECGs available Confirmed by Martin Vick ([id number]) on 09/08/2020 10:45:16 AM Blood testing 01/30/2025: Hemoglobin 13.2, platelets 225, BUN 16, creatinine 0.86, potassium 3.8, EGFR 91. Blood testing 10/02/2023: CBC and BMP normal. Triglycerides 121, LDL 55. Blood testing 04/06/2023: Hemoglobin 13.1, platelets 256, potassium 3.9, BUN 13, creatinine 1.21, EGFR 59, troponin negative. D-dimer 1.05. Blood testing 03/23/2023: Hemoglobin 13.5, platelets 259, potassium 4.3, BUN 15, creatinine 1.13, EGFR more than 60, NT proBNP 564. Blood testing 01/04/2023: BUN 12, creatinine 1.01, potassium 4.0, EGFR 80, LFTs normal, hemoglobin 13.4, platelets 261. Blood testing 02/25/2022: BMP normal Blood testing 10/25/2021: Hemoglobin 9.3, platelets 513, potassium 3.8, BUN 23, creatinine 1.07. NT proBNP 10/23/2021: 2055. Blood testing 02/26/2021: Hemoglobin 12.8, platelets 218, potassium 4.1, BUN 23, creatinine 1.27. BMP 08/31/2020: BUN 14, creatinine 0.93, potassium 3.8. Blood testing 07/02/2020: Hemoglobin 11.9, platelets 338, potassium 3.9, BUN 16, creatinine 1.0, ALT/AST normal, ALP 174, cholesterol 91, HDL 28, LDL 36, triglycerides 135. Imaging and other tests Echocardiogram 02/21/2025: CONCLUSION: 1. Severe concentric left ventricular hypertrophy with normal systolic function. Estimated LVEF is 60%. 2. Normal right ventricular size and systolic function. 3. Bioprosthetic aortic valve is well-seated in the aortic position with normal Doppler flows. No aortic regurgitation. 4. Mildly to moderately dilated aortic root and ascending aorta. 5. Normal right-sided pressures. AORTIC ROOT: Aortic root (4.3 cm) and ascending aorta (4.1 cm) are mildly to moderately dilated. PFTs 02/20/2025: Patient gave good effort and data is reproducible Normal spirometry without any significant obstructive or restrictive impairment Diffusion capacity is mildly impaired at 65. This can be seen in isolation with underlying interstitial lung disease, pulmonary vascular disease, emphysema, anemia, pulmonary hypertension. Please correlate with clinical and radiographic data Echocardiogram 03/22/2024: CONCLUSION: 1. Global left ventricular systolic function [...] 8. The ascending aorta is mildly dilated (4.1 cm). 9. Anterior free space; trivial effusion versus fat pad CTA chest 04/06/2023: IMPRESSION:No evidence of acute pulmonary embolus. Multiple bilateral nodular opacities measuring up to 0.9 cm. Differential diagnosis includes inflammatory/infectious, primary or secondary neoplasm. PET/CT or 3 months follow-up is recommended for better evaluation. Ascending aortic aneurysm measuring 4 cm on coronal view. Small hiatal hernia. Echocardiogram 01/06/2023: Global left regular systolic function is normal, visually estimated ejection fraction is 55 to 60%. No obvious wall motion abnormalities. Moderately increased left ventricular wall thickness. Right ventricle is normal in size and systolic function. Normal diastolic function. A bioprosthetic aortic valve is seen with normal Doppler flow. No significant aortic regurgitation. The aortic root is mildly dilated. The ascending aorta is mild to moderately dilated. Aortic root 4.1 cm, ascending aorta 4.4 to 4.8 cm. Anterior free space, trivial effusion versus fat pad. CT scan 01/04/2023: There is ectasia of the ascending thoracic aorta measuring up to 4.7 cm. Echocardiogram 03/15/2022: Moderate concentric left ventricular hypertrophy, normal LV systolic function, EF 65%, bioprosthetic aortic valve with normal Doppler flows, no valvular or perivalvular regurgitation, grade 2 diastolic dysfunction, normal right-sided pressures, dilated ascending aorta and aortic root, the proximal ascending aorta measures 4.5 cm, no pericardial effusion. Echocardiogram 09/15/2021: LV systolic function is normal, EF 60 to 65%, RV normal in size and systolic function. Bioprosthetic aortic valve is seen, Doppler flows are mildly elevated, ascending aortais severely enlarged and measures 5 cm. Chest x-ray 02/25/2021: No acute cardiopulmonary process. Stable chest. Echocardiogram 02/16/2021: Global left ventricular systolic function is normal; visually estimated ejection fraction is 50 to 55%. Abnormal septal motion. The left atrium is upper normal limits in size. The right ventricle is normal in size and systolic function. Mildly elevated right ventricular systolic pressure. Mild mitral regurgitation. A bioprosthetic aortic valve is seen with normal Doppler flows. The ascending aorta is severely enlarged measuring 5.0 cm. EKG 02/25/2021: Sinus rhythm with first-degree AV block, old anteroseptal myocardial infarction, nonspecific ST changes. AJAY 06/08/2020: Post cardiopulmonary bypass: New aortic valve appears to function properly with no perivalvular leaks. Hyperdynamic left ventricular function. EF estimated at 40%. 05/26/2020 Echo Left ventricle: The cavity size is normal. Systolic function is severely reduced. The estimated ejection fraction is 20-25%. Severe global hypokinesis. Left ventricular diastolic function is abnormal. Large left ventricular apical clot. Aortic valve: Probable bicuspid aortic valve. Heavily calcified aortic valve consistent with severeaortic stenosis. Aortic valve area 0.7cm2 by continuity equation. Aorta: Dilated ascending aorta at tubular segment 4.6cm. Mitral valve: Focally thickened mitral valve without stenosis. The annulus is mildly calcified. There is trivial regurgitation. Left atrium: The atrium is mildly dilated. Right ventricle: The cavity size is normal. Systolic function is normal. The TAPSE measurement is 1.1 cm. (< 1.7 is abnormal). Right atrium: The atrium is normal in size. Tricuspid valve: The valve is structurally normal . The RVSP is 50 mm Hg. There is trivial regurgitation. Pulmonic valve: The valve is structurally normal. There is trivial regurgitation. Pericardium: There is no pericardial effusion. Summary: 1. Left ventricle: Systolic function is severely reduced. The estimated ejection fraction is 202%.Severe global hypokinesis. Left ventricular diastolic function is abnormal. 2. Aortic valve: Probable bicuspid aortic valve. Heavily calcified aortic valve consistent with severe aortic stenosis. Aortic valve area 0.7cm2 by continuity equation. 3. Aorta: Dilated ascending aorta at tubular segment 4.6cm. 4. Left atrium: The atrium is mildly dilated. 5. Tricuspid valve: The RVSP is 50 mm Hg. 6. Pericardium, extracardiac: There is no pericardial effusion. CT chest 06/01/2020 * Similar to outside examination 05/25/2020. Spiculated mass within the right upper lung strongly suggestive of malignancy. * Additional small scattered sites of disease within the right lung. Also moderate size left effusion with additional airspace disease at the left base. OR report 06/08/2020 *Postoperative Diagnosis Coronary artery disease, bicuspid aortic valve with severe aortic stenosis, reduced left ventricular function and ascending aortic aneurysm measuring 4.8 cm, no left ventricular thrombus, right upperlobe lung mass *Operation 1. Aortic valve replacement with 25 mm Chan Magna ease pericardial valve 2. Coronary artery bypass grafting x2, ervin to LAD, saphenous vein graft to obtuse marginal 1 branch, right coronary artery was too calcified for bypass, 3. Exclusion of left atrial appendage with 40 mm atrial clip device 4. Endoscopic vein harvesting of the left greater saphenous vein 5. Independent interpretation of transesophageal echocardiogram Carotid ultrasound June 05, 2020: <50% diameter stenosis of the internal carotid artery bilaterally. Patent vertebral arteries with antegrade flow bilaterally. Assessment/Plan Diagnoses and all orders for this visit: Coronary artery disease involving st. michael ira coronary artery of [facility]. michael ira heart with other form of angina pectoris - Lexiscan Stress Myocardial Perfusion Imaging; Future S/P aortic valve replacement with bioprosthetic valve Comments: 25 mm Chan Magna ease pericardial valve Aneurysm of ascending aorta without rupture Bilateral carotid artery stenosis History of coronary artery bypass graft Heart failure with improved ejection fraction (HFimpEF) (CMS/HCC) S/P left atrial appendage ligation 75-year-old man with history of aortic valve stenosis and acute systolic heart failure, status postbioprosthetic aortic valve replacement and bypass surgery in June 2020. He also has lung cancer status post lobectomy in September 2020. His echocardiogram in March 2022 showed recovery of normal ventricular function with an ejection fraction of 65% (in the past it was reduced at ~30-35%). His echo 03/2024 showed similar findings with normal function of the aortic bioprosthesis. Similar findings on most recent echocardiogram on 02/21/2025. I reassured him. He has an ascending aortic aneurysm and it measured 5.0 by echocardiogram in February 2021 and 5.0 cm by echocardiogram in September 2021 and 4.5 cm by echo in March 2022. His echo 01/2023 showed that it measured up to 4.[address] chest 01/2023 measured it at 4.[address] scan of the chest performed in April 2023 at the [facility] measured the aneurysm at 4.0 cm. His echocardiogram March 2024 showedthat the ascending aorta was mildly dilated measuring 4.1 cm. The echocardiogram February 2025 showed aortic root around 4.3 cm and ascending aorta 4.1 cm. I reassured him. He has been having symptoms of chest pain. The shortness of breath continues and is not explained by his recent PFTs. I am going to check a stress test to rule out ischemic etiology of the symptoms. He cannot do treadmill exercise and I will check a Lexiscan stress test with myocardial perfusion imaging. I told him that if the stress test is abnormal we need to proceed with cardiac catheterization. I will continue dual antiplatelet therapy with aspirin and plavix. Continue statins, Entresto, metoprolol succinate and amlodipine. Continue spironolactone 25 mg once daily. His recent BMP was normal. His blood pressure and heart rate are well-controlled. I will plan a follow-up in 6 months. Follow up in about 6 months (around 10/01/2025). Jj Ambrosio MD documented in this encounter Plan of Treatment Scheduled Orders Name Type Priority Associated Diagnoses Orde r Schedule Lexiscan Stress Myocardial Perfusion Imaging Cardiac Services Routine Coronary artery disease involving [facility] michael ira coronary artery of [facility] michael ira heart with other form of angina pectoris Expected: 03/31/2025 (Approximate), Expires: 03/31/2027 documented as of this encounter Visit Diagnoses Diagnosis Coronary artery disease involving st. michael ira coronary artery of [facility]. michael ira heart with other form of angina pectoris- Primary S/P aortic valve replacement with bioprosthetic valve Aneurysm of ascending aorta without rupture Bilateral carotid artery stenosis Occlusion and stenosis of carotid artery without mention of cerebral infarction History of coronary artery bypass graft Postsurgical aortocoronary bypass status Heart failure with improved ejection fraction (HFimpEF) ([facility]) S/P left atrial appendage ligation documented in this encounter Care Teams Speech Coach Relationship Specialty Start Date End Date Anayeli Heaton MD [address] [place] [address] PCP - General Nurse Practitioner 03/31/25 documented as of this encounter
--- OUTSIDE RECORDS SUMMARY | 2025-04-07 09:25 | XMS_ITS | Encounter Summary ---
Author Organization [facility] Address [address] [place] [address] Care Team Providers Care Log Hooker Name Role Phone Shaikh ADILENE Etienne Primary Care Provider [phone] Tom Benton MD Primary Care Provider [phone] Margaret Vasques COOK 3 PASTRY Unavailable [phone] Unallocated, [facility]oms Provider Primary Care Provi alia Tom Benton MD Primary Care Provider [phone] Encounter Details Date Type Department Care Team (Late st Contact Info) Description 09/28/2023 Orders Only [facility] [address] [id number] Shaikh Etienne MD [address] [place] [id number] Social History Tobacco Use Types Packs/Day Years [...] often do you attend chur ch or temple services? Never 10/02/2023 Do you belong to [...] Recorded Patient Health Questionnaire-2 Score 2 10/02/2023 [facility] Answer Date Recorded [...] Care Team (Late st Contact Info) Description 05/12/2025 1:30 PM EDT Office Visit [facility] [address] [place] [address] Anayeli Heaton NP [address] [place] [id number] 02/18/2026 4:30 PM EDT Office Visit [facility] [address] [place] [phone] Anayeli Heaton NP [address] [place] [phone] documented as of this encounter Visit Diagnoses Not on filedocumented in this encounter Care Teams Log Hooker Relationship Specialty Start Date End Date Shaikh Etienne MD [address] [place] [address] PCP - General Internal Medicine 09/22/23 04/15/24 Tom Benton MD [address] [place] [address] PCP - General Family Medicine 04/16/24 06/24/24 Unallocated, Kacey Canada MD [address] [place] [address] PCP - General Family Medicine 06/25/24 07/03/24 Tom Benton MD [address] [place] [address] PCP - General Family Medicine 07/04/24 Margaret Vasques NP [address] [place] [address] Nurse Practitioner Family Medicine 04/16/24 documented as of this encounter
--- OUTSIDE RECORDS SUMMARY | 2025-04-07 09:25 | XMS_ITS | Encounter Summary ---
Author Organization [facility] Address [address] [place] [address] Care Team Providers Care Extractor And Wringer Operator Name Role Phone Shaikh ADILENE Etienne Primary Care Provider [phone] Jj Ambrosio MD Unavailable [phone] Tor Maliha Quiroz DO Unavailable [phone] Source Comments In the event this information is protected by the Federal Confidentiality of Alcohol and Drug AbusePatient Records regulations: The Federal rules restrict any use of the information to criminally investigate or prosecute any alcohol or drug abuse patient.[facility] Reason for Visit * Reason Comments Orders Encounter Details Date Type Department Care Team (Late st Contact Info) Description 03/27/2025 Telephone Hematology/Oncology [address] [place] [address] [place] [address] Jaya Frank MD [address] [place] [address] [place] [address] Orders Social History Tobacco Use Types Packs/Day Years Used Date Smoking Tobacco: Every Day Cigarettes 1 48 Passive Smoke Exposure: Current Smokeless Tobacco: Never Alcohol Use Standard Drinks/Week Comments Not Currently 0 (1 standard drink = 0.6 oz pur e alcohol) PHQ-2 Answer Date Recorded PHQ-2 score 0 03/01/2024 Area Deprivation Index Answer Date Jaret rded National Score (1-100), lower number is lower ri sk Not on file 06/07/2021 State Score (1-10), lower number is lower risk N ot on file 06/07/2021 Data from: https://www.neighborhoodatlas.medicine.[facility]/. Last address used for calculation Not on file 06/07/2021 Sex and Gender Information Value Date Recorded Sex Assigned at Not on file Legal Sex Male 8:57 AM EDT Gender Identity Not on file Sexual Orientation Not on file documented as of this encounter Miscellaneous Notes * Telephone Encounter - Taylor Spann RN - 03/27/2025 1:44 PM EDT Please sign pended labs for 3 month f/u if agreeable Thank You! Taylor Spann RN documented in this encounter Plan of Treatment Upcoming Encounters Date Type Department Care Team (Latest Contact Info) Description 05/01/2025 1:15 PM EDT Appointment Radiology Pet CT [address] [place] [address] [place] [address] Ct Chest with contrast and lab 05/08/2025 2:40 PM EDT Visit (SP) Office Hematology/Oncology [address] [place] [address] [place] [address] Jaya Frank MD [address] [place] [address] [place] [address] Ct Chest with contrast and lab Scheduled Orders Name Type Priority Associated Diagnoses Orde r Schedule COMPREHENSIVE METABOLIC PANEL Lab Routine Cancer of trachea, bronchus, and lung (HCC) Expected: 05/01/2025 (Approximate), Expires: 07/31/2025 COMPLETE BLOOD COUNT AND DIFFERENTIAL Lab Routine Cancer of trachea, bronchus, and lung (HCC) Expected: 05/01/2025 (Approximate), Expires: 07/31/2025 FERRITIN Lab Routine Cancer of trachea, bronchus, and lung (HCC) Expected: 03/27/2025, Expires: 06/26/2025 IRON AND TIBC Lab Routine Cancer of trachea, bronchus, and lung (HCC) Expected: 03/27/2025, Expires: 06/26/2025 FOLATE, SERUM Lab Routine Cancer of trachea, bronchus, and lung (HCC) Expected: 03/27/2025, Expires: 06/26/2025 VITAMIN B12 Lab Routine Cancer of trachea, bronchus, and lung (HCC) Expected: 03/27/2025, Expires: 06/26/2025 documented as of this encounter Visit Diagnoses Diagnosis Cancer of trachea, bronchus, and lung (HCC)- Primary Malignant neoplasm of other parts of bronchus or lung documented in this encounter Care Teams Extractor And Wringer Operator Relationship Specialty Start Date End Date Shaikh Etienne MD [address] [place] [address] PCP - General Primary Care 01/13/21 Jj Ambrosio MD [address] [place] [address] Registered Private Duty Nurse Cardiology 01/04/22 Maliha Lentz DO [address] [place] [address] Internal Medicine 09/15/22 documented as of this encounter
--- OUTSIDE RECORDS SUMMARY | 2025-04-07 09:26 | XMS_ITS | Encounter Summary ---
Author Organization [facility] Address [address] [place] [address] Care Team Providers Care Airport Screener Name Role Phone Margaret Vasques BORING INSPECTOR Unavailable Tom Benton MD Primary Care Provider [phone] Encounter Details Date Type Department Care Team [...] often do you attend chur ch or gnosticist services? Never 10/02/2023 Do you belong to any clubs o r organizations such as pentecostal groups, unions, fraternal or athletic groups, or [...] Recorded Patient Health Questionnaire-2 Score 0 02/26/2024 [facility] of Occupat ional Health - Occupational Stress [...] Visit [facility] [address] [place] [address] Anayeli Heaton NP [address] [place] [address] 02/18/2026 4:30 PM EDT Office Visit [facility] [address] [place] [address] Anayeli Heaton NP [address] [place] [address] documented as of this encounter Procedures Procedure [...] OF EXAM: Jul 19 2024 12:28PM [facility] 0530 - CT ABD/PEL W IVCON / [...] performed concurrently and will be dictated separately. Tennis Professional (topogram) images: No additional findings. IMPRESSION: 1. [...] any questions regarding this interpretation, please call [phone]. If you are unable to reach us at the number above, please feel free to contact [facility] at [phone]. [id number]^[email or web address]^ACN Procedure Note Radiology, Radiologist, - 07/22/2024 * * *Final Report* * * DATE OF EXAM: Jul 19 2024 12:28PM [facility] 0530 - CT ABD/PEL W IVCON / [...] performed concurrently and will be dictated separately. Tennis Professional (topogram) images: No additional findings. IMPRESSION: 1. [...] any questions regarding this interpretation, please call [phone]. If you are unable to reach us at the number above, please feel free to contact [facility] at [phone]. [id number]^AGFA_IDC^SI^ACN us Generic External Data Provider [facility] Final Result documented in this encounter Visit Diagnoses Not on filedocumented in this encounter Additional Health Concerns Assessment Noted Time PHQ-9 Depression Total Score: 4 10/02/19 24 1:27 PM EST documented as of this encounter Care Teams Airport Screener Relationship Specialty Start Date End Date Tom Benton MD [address] [place] [address] PCP - General Family Medicine 07/04/24 Margaret Vasques NP Nurse Practitioner Family Medicine 04/16/24 documented as of this encounter
--- OUTSIDE RECORDS SUMMARY | 2025-04-07 09:26 | XMS_ITS | Clinical Summary ---
Author Organization [facility] Address [address] [place] [address] Care Team Providers Care Emg Technician Name Role Phone Shaikh ADILENE Etienne Primary Care Provider [phone] Jj Ambrosio MD Unavailable Tor Maliha Quiroz Unavailable [phone] Allergies No known active allergies Medications albuterol [...] MAX 3 DOSES.- IF NO RELIEF CALL 041) Active sacubitril-vals twan (ENTRESTO) 97-103 mg tablet [...] 90 tablet 1 02/07/20 25 025 Active Active Problems Problem Noted Date Diagnosed Date [...] & Plan (01/05/2022 11:23 AM EDT): Assessment: 2019, stable. 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 Last address used for calculation Not [...] PM EDT Appointment Radiology Pet CT [address] [place] [address] Ct Chest with contrast and lab 05/08/2025 2:40 PM EDT Visit (SP) Office Hematology/Oncology [address] [place] [address] Jaya Frank MD [address] [place] [address] Ct Chest with contrast and lab Health [...] (FIT-DNA) 08/24/2023 08/24/2020 Colorectal Cancer Screening 08/24/2023 Advance Directive Discussion 09/04/2024 Influenza Vaccine (#1) 2025 Diabetes Screening 01/31/2028 01/30/2025, 0 11/07/2024, [...] any questions regarding this interpretation, please call [phone]. If you are unable to reach us at the number above, please feel free to contact [facility]Radiology at [phone]. Narrative 01/31/2025 11:17 AM EDT * * *Final Report* * * DATE OF EXAM: Jan 30 2025 2:25PM [facility] 0530 - CT ABD/PEL W [...] images: No additional findings. Procedure Note Provider, [facility] [place] - 01/31/2025 * * *Final Report* * * DATE OF EXAM: Jan 30 2025 2:25PM [facility] 0530 - CT ABD/PEL W [...] any questions regarding this interpretation, please call [phone]. If you are unable to reach us at the number above, please feel free to contact [facility] at [phone]. us Jaya Frank MD CT-PAMA Final Result [...] any questions regarding this interpretation, please call [phone]. If you are unable to reach us at the number above, please feel free to contact [facility]Radiology at [phone]. Narrative 01/31/2025 10:59 AM EDT * * *Final Report* * * DATE OF EXAM: Jan 30 2025 2:25PM [facility] 0539 - CT CHEST W [...] images: No additional findings. Procedure Note Provider, [facility] [place] - 01/31/2025 * * *Final Report* * * DATE OF EXAM: Jan 30 2025 2:25PM [facility] 0539 - CT CHEST W [...] any questions regarding this interpretation, please call [phone]. If you are unable to reach us at the number above, please feel free to contact [facility] at [phone]. us Jaya Frank MD CT-[facility] Final Result * VITAMIN B12 (01/30/2025 1:29 PM EDT) Vitamin B12 277 232 - 1,245 pg/mL 01/31/2025 6:18 AM EDT [facility] Blood BLOOD SPECIMEN / Unknown Venipuncture / Unknown 01/30/2025 1:29 PM EDT 01/30/2025 1:37 PM EDT us Jaya Frank MD LABORATORY Final Result [facility] [address] [place] [id number], * IRON AND TIBC (01/30/2025 1:29 PM EDT) Iron 67 41 - 186 ug/dL 01/31/2025 6:01 AM EDT [facility] TIBC 329 232 - 386 ug/dL 01/31/2025 6:01 AM EDT [facility] Transferrin Saturation 20.4 15.0 - 57.0 % 01/31/2025 6:01 AM EDT [facility] Blood BLOOD SPECIMEN / Unknown Venipuncture / Unknown 01/30/2025 1:29 PM EDT 01/30/2025 1:37 PM EDT us Jaya Frank MD LABORATORY Final Result [facility] [address] [facility] [address] [place] [id number], [place] * FOLATE, SERUM (01/30/2025 1:29 PM EDT) Folate 12.6 >4.7 ng/mL 01/31/2025 6:18 AM EDT [facility] Blood BLOOD SPECIMEN / Unknown Venipuncture / Unknown 01/30/2025 1:29 PM EDT 01/30/2025 1:37 PM EDT us Jaya Frank MD LABORATORY Final Result [facility] [address] [address], [place] * FERRITIN (01/30/2025 1:29 PM EDT) Ferritin 187.0 30.3 - 565.7 ng/mL 01/31/2025 6:18 AM EDT [facility] Blood BLOOD SPECIMEN / Unknown Venipuncture / Unknown 01/30/2025 1:29 PM EDT 01/30/2025 1:37 PM EDT us Jaya Frank MD LABORATORY Final Result [facility] [address] [place] [place] [id number], [place] * ERYTHROPOIETIN/EPO (01/30/2025 1:29 PM EDT) Erythropoietin 11.5 2.6 - 18.5 mIU/mL 01/31/2025 12:07 PM EDT [facility] Blood BLOOD SPECIMEN / Unknown Venipuncture / Unknown 01/30/2025 1:29 PM EDT 01/30/2025 1:37 PM EDT Narrative [facility] - 01/31/2025 12:07 PM EDT Test analyzed by the Tilt DxI method. Jaya Frank MD LABORATORY Final Result [facility] [address] [facility] [address] [place] [address], [place] * (ABNORMAL) COMPREHENSIVE METABOLIC PANEL (01/30/2025 1:29 PM EDT) [facility] Protein, Total 7.1 6.3 - 8.0 g/dL 01/30/2025 2:02 PM EDT [facility] Albumin 4.3 3.9 - 4.9 g/dL 01/30/2025 2:02 PM EDT [facility] Calcium, Total 9.4 8.5 - 10.2 mg/dL 01/30/2025 2:02 PM EDT [facility] Bilirubin, Total 0.3 0.2 - 1.3 mg/dL 01/30/2025 2:02 PM EDT [facility] Alkaline Phosphatase 95 38 - 113 U/L 01/30/2025 2:02 PM EDT [facility] AST 14 14 - 40 U/L 01/30/2025 2:02 PM EDT [facility] ALT 8(L) 10 - 54 U/L 01/30/2025 2:02 PM EDT [facility] Glucose 85 74 - 99 mg/dL 01/30/2025 2:02 PM EDT [facility] Comment: The [place] Diabetes Association (ADA) provides guidance for cutoff [...] Standards of Medical Care in Diabetes 2016, [place] [employer] Association. Diabetes Care. 2016.39(Suppl 1). BUN 16 9 - 24 mg/dL 01/30/2025 2:02 PM EDT [facility] Creatinine 0.86 0.73 - 1.22 mg/dL 01/30/2025 2:02 PM EDT [facility] Sodium 138 136 - 144 mmol/L 01/30/2025 2:02 PM EDT [facility] Potassium 3.8 3.7 - 5.1 mmol/L 01/30/2025 2:02 PM EDT [facility] Chloride 105 98 - 107 mmol/L 01/30/2025 2:02 PM EDT [facility] CO2 25 22 - 30 mmol/L 01/30/2025 2:02 PM EDT [facility] Anion Gap 8 8 - 15 mmol/L 01/30/2025 2:02 PM EDT [facility] Estimated Glomerular Filtration Rate 91 >=60 mL/min/1.7 3m 01/30/2025 2:02 PM EDT [facility] Comment:Estimated Glomerular Filtration Rate (eGFR) is [...] us Jaya Frank MD LABORATORY Final Result [facility] [address] [place] [address] * (ABNORMAL) COMPLETE BLOOD COUNT AND DIFFERENTIAL (01/30/2025 1:29 PM EDT) WBC 8.67 3.70 - 11.00 k/uL 01/30/2025 1:40 PM EDT [facility] RBC 4.27 4.20 - 6.00 m/uL 01/30/2025 1:40 PM EDT [facility] Hemoglobin 13.2 13.0 - 17.0 g/dL 01/30/2025 1:40 PM EDT [facility] Hematocrit 39.7 39.0 - 51.0 % 01/30/2025 1:40 PM EDT [facility] MCV 93.0 80.0 - 100.0 fL 01/30/2025 1:40 PM EDT [facility] MCH 30.9 26.0 - 34.0 pg 01/30/2025 1:40 PM EDT [facility] MCHC 33.2 30.5 - 36.0 g/dL 01/30/2025 1:40 PM EDT [facility] RDW-CV 13.5 11.5 - 15.0 % 01/30/2025 1:40 PM EDT [facility] Platelet Count 225 150 - 400 k/uL 01/30/2025 1:40 PM EDT [facility] MPV 9.1 9.0 - 12.7 fL 01/30/2025 1:40 PM EDT [facility] Neutrophils % 58.6 % 01/30/2025 1:40 PM EDT [facility] Abs Neut 5.08 1.45 - 7.50 k/uL 01/30/2025 1:40 PM EDT [facility] Lymphocytes % 23.4 % 01/30/2025 1:40 PM EDT [facility] Abs Lymph 2.03 1.00 - 4.00 k/uL 01/30/2025 1:40 PM EDT [facility] Monocytes % 13.5 % 01/30/2025 1:40 PM EDT [facility] Abs [place] 1.17(H) <0.87 k/uL 01/30/2025 1:40 PM EDT [facility] Eosinophils % 3.2 % 01/30/2025 1:40 PM EDT [facility] Abs Eosin 0.28 <0.46 k/uL 01/30/2025 1:40 PM EDT [facility] Basophils % 0.6 % 01/30/2025 1:40 PM EDT [facility] Abs Baso 0.05 <0.11 k/uL 01/30/2025 1:40 PM EDT [facility] Immature Granulocytes % 0.7 % 01/30/2025 1:40 PM EDT [facility] Abs Immature Gran 0.06 <0.10 k/uL 01/30/2025 1:40 PM EDT [facility] NRBC 0.0 /100 WBC 01/30/2025 1:40 PM EDT [facility] Absolute nRBC <0.01 <0.01 k/uL 01/30/2025 1:40 PM EDT [facility] Diff Type Auto 01/30/2025 1:40 PM EDT [facility] Blood BLOOD SPECIMEN / Unknown Venipuncture / Unknown 01/30/2025 1:29 PM EDT 01/30/2025 1:37 PM EDT Jaya Frank MD LABORATORY Final Result [facility] [address] [place] [address] from Last 3 Months Insurance MEDICARE [place]ICAID [place] Care Teams Emg Technician Relationship Specialty Start Date End Date Shaikh Etienne MD [address] [place] [address] PCP - General Primary Care 01/13/21 Jj Ambrosio MD [address] [place] [address] Look Out Tower Fire Watcher Cardiology 01/04/22 Maliha Lentz DO [address] [place] [address] Internal Medicine 09/15/22
--- OUTSIDE RECORDS SUMMARY | 2025-04-07 09:26 | XMS_ITS | Encounter Summary ---
Author Organization [facility] Address [address] [place] [address] Care Team Providers Care Thrill Performer Name Role Phone Vasques, Brittany FACILITY SERVICE ASSOCIATE Unavailable [phone] Tom Benton MD Primary Care Provider [phone] Encounter Details Date Type Department Care Team [...] often do you attend chur ch or nondenominational services? Never 10/02/2023 Do you belong to any clubs o r organizations such as moravian groups, unions, fraternal or athletic groups, or [...] Recorded Patient Health Questionnaire-2 Score 0 02/26/2024 [facility] of Occupat ional Health - Occupational [...] Visit [facility] [address] [place] [address] Anayeli Heaton NP [address] [place] [address] 02/18/2026 4:30 PM EDT Office Visit [facility] [address] [place] [address] Anayeli Heaton NP [address] [place] [address] documented as of this encounter Procedures Procedure [...] DATE OF EXAM: Sep 12 2024 1:05PM [facility] 0539 - CT CHEST W [...] abdomen: No evidence of an adrenal mass. Branch Assistant (topogram) images: No additional findings. IMPRESSION: 1. [...] any questions regarding this interpretation, please call [phone]. If you are unable to reach us at the number above, please feel free to contact [facility] at [phone]. [id number]^[email or web address]^ACN Procedure Note Radiology, Radiologist, - 09/12/2024 * * *Final Report* * * DATE OF EXAM: Sep 12 2024 1:05PM [facility] 0539 - CT CHEST W [...] abdomen: No evidence of an adrenal mass. Branch Assistant (topogram) images: No additional findings. IMPRESSION: 1. [...] any questions regarding this interpretation, please call [phone]. If you are unable to reach us at the number above, please feel free to contact [facility] at [phone]. [id number]^[email or web address]^ACN us Generic External Data Provider IMG CT PROCEDURES Final Result documented in this encounter Visit Diagnoses Not on filedocumented in this encounter Additional Health Concerns Assessment Noted Time PHQ-9 Depression Total Score: 4 10/02/19 24 1:27 PM EST documented as of this encounter Care Teams Thrill Performer Relationship Specialty Start Date End Date Tom Benton MD [address] [place] [address] PCP - General Family Medicine 07/04/24 Margaret Vasques NP Nurse Practitioner Family Medicine 04/16/24 documented as of this encounter
--- OUTSIDE RECORDS SUMMARY | 2025-04-07 09:26 | XMS_ITS | Encounter Summary ---
Author Organization [facility] Address [address] [facility] [place] [address] Care Team Providers Care Lead Python Developer Name Role Phone Shaikh ADILENE Etienne Primary Care Provider [phone] Shaikh ADILENE Etienne Primary Care Provider [phone] Tom Benton MD Primary Care Provider [phone] Margaret Vasques FAGOTER Unavailable [phone] Unallocated, [facility] Provider Primary Care Provi alia Tom Benton MD Primary Care Provider [phone] Reason for Visit * Reason Comments Med Refill Encounter Details Date Type Department Care Team (Late st Contact Info) Description 09/21/2023 Refill [facility] [address] [place] [address] Shaikh Etienne MD [address] [place] [address] Insomnia, unspecified; Atherosclerotic heart disease of [place] coronary artery without angina pectoris Social History [...] 05/12/2025 1:30 PM EDT Office Visit [facility] [address] [place] [address] Anayeli Heaton, CHELLE [address] [place] [address] 02/18/2026 4:30 PM EDT Office Visit [facility] [address] [place] [address] Anayeli Heaton, CHELLE [address] [place] [address] documented as of this encounter Visit Diagnoses Diagnosis Insomnia, unspecified Atherosclerotic heart disease of [place] coronary artery without angina pectoris documented in this encounter Care Teams Lead Python Developer Relationship Specialty Start Date End Date Shaikh Etienne MD PCP - General Internal Medicine 03/22/23 09/21/23 Shaikh Etienne MD [address] [place] [address] PCP - General Internal Medicine 09/22/23 04/15/24 Tom Benton MD [address] [place] [address] PCP - General Family Medicine 04/16/24 06/24/24 Unallocated, Kacey Canada MD [address] [place] [address] PCP - General Family Medicine 06/25/24 07/03/24 Tom Benton MD [address] [place] [address] PCP - General Family Medicine 07/04/24 Margaret Vasques NP [address] [place] [address] Nurse Practitioner Family Medicine 04/16/24 documented as of this encounter
--- OUTSIDE RECORDS SUMMARY | 2025-04-07 09:26 | XMS_ITS | Encounter Summary ---
Author Organization [facility] Address [address] [facility] [address] Care Team Providers Care Swimming Pool Serviceperson Name Role Phone Shaikh ADILENE Etienne Primary Care Provider [phone] Shaikh ADILENE Etienne Primary Care Provider [phone] Tom Benton MD Primary Care Provider [phone] Margaret Vasques TOYS AND GAMES HAND FINISHER Unavailable [phone] Unallocated, [facility] Provider Primary Care Provi alia Tom Benton MD Primary Care Provider [phone] Reason for Visit * Reason Comments Med Refill Encounter Details Date Type Department Care Team (Late st Contact Info) Description 08/23/2023 Refill [facility] [address] [place] [address] Shaikh Etienne MD [address] [place] [address] Insomnia, unspecified; Hypokalemia; Chronic obstructive pulmonary disease, [...] 1:30 PM EDT Office Visit [facility] [address] [place] [address] Anayeli Heaton, CHELLE [address] [place] [address] 02/18/2026 4:30 PM EDT Office Visit [facility] [address] [place] [phone] Anayeli Heaton NP [address] [place] [address] documented as of this encounter Visit Diagnoses Diagnosis Insomnia, unspecified Hypokalemia Hypopotassemia Chronic obstructive pulmonary disease, unspecified (HCC) Depression, unspecified documented in this encounter Care Teams Swimming Pool Serviceperson Relationship Specialty Start Date End Date Shaikh Etienne MD PCP - General Internal Medicine 03/22/23 09/21/23 Shaikh Etienne MD [address] [place] [address] PCP - General Internal Medicine 09/22/23 04/15/24 Tom Benton MD [address] [place] [address] PCP - General Family Medicine 04/16/24 06/24/24 Unallocated, Kacey Canada MD [address] [place] [address] PCP - General Family Medicine 06/25/24 07/03/24 Tom Benton MD [address] [place] [address] PCP - General Family Medicine 07/04/24 Margaret Vasques NP [address] [place] [address] Nurse Practitioner Family Medicine 04/16/24 documented as of this encounter
--- OUTSIDE RECORDS SUMMARY | 2025-04-07 09:26 | XMS_ITS | Encounter Summary ---
Author Organization [facility] Address [address] [facility] [place] [address] Care Team Providers Care Forest Fire Fighter Name Role Phone Shaikh ADILENE Etienne Primary Care Provider [phone] Shaikh ADILENE Etienne Primary Care Provider [phone] Tom Benton MD Primary Care Provider [phone] Margaret Vasques PHLEBOTOMY SERVICES TECHNICIAN Unavailable [phone] Unallocated, Noms Provider Primary Care Provi alia Tom Benton MD Primary Care Provider [phone] Encounter Details Date Type Department Care Team [...] Department Care Team (Late Contact Info) Description 05/12/2025 1:30 PM EDT Office Visit [facility] [address] [place] [address] Anayeli Heaton PHLEBOTOMY SERVICES TECHNICIAN [address] [place] [address] 02/18/2026 4:30 PM EDT Office Visit [facility] [address] [place] [address] Anayeli Heaton, CHELLE [address] [place] [address] documented as of this encounter Procedures Procedure [...] any questions regarding this interpretation, please call [phone]. If you are unable to reach us at the number above, please feel free to contact [facility] at [phone]. [id number]^[email or web address]^SI^ACN Procedure Note Radiology, Radiologist, - 08/07/2023 * [...] any questions regarding this interpretation, please call [phone]. If you are unable to reach us at the number above, please feel free to contact [facility] at [phone]. [id number]^AGFA_IDC^SI^ACN us Generic External Data Provider [facility] Final Result documented in this encounter Visit Diagnoses Not on filedocumented in this encounter Care Teams Forest Fire Fighter Relationship Specialty Start Date End Date Shaikh Etienne MD PCP - General Internal Medicine 03/22/23 09/21/23 Shaikh Etienne MD [address] [place] [address] PCP - General Internal Medicine 09/22/23 04/15/24 Tom Benton MD [address] [place] [address] PCP - General Family Medicine 04/16/24 06/24/24 Unallocated, Kacey Canada MD [address] [place] [address] PCP - General Family Medicine 06/25/24 07/03/24 Tom Benton MD [address] [place] [address] PCP - General Family Medicine 07/04/24 Margaret Vasques NP [address] [place] [address] Nurse Practitioner Family Medicine 04/16/24 documented as of this encounter
--- OUTSIDE RECORDS SUMMARY | 2025-04-07 09:26 | XMS_ITS | Encounter Summary ---
Author Organization [facility] Address [address] [place] [address] Care Team Providers Care Pulvi Mixer Operator Name Role Phone Margaret Vasques HEAD WOOD GRINDER Unavailable [phone] Tom Benton MD Primary Care Provider [phone] Encounter Details Date Type Department Care Team [...] Recorded Patient Health Questionnaire-2 Score 0 02/26/2024 [facility] - Occupational Stress [...] place to sleep or slept in a chcf (including now)? No 10/02/2023 Sex and Gender Information Value Date Recorded Sex Assigned at Not on file Legal Sex Male 2:39 PM EDT Gender Identity Not on file Sexual Orientation Not on file documented as of this encounter Plan of Treatment Upcoming Encounters Date Type Department Care Team (Late st Contact Info) Description 05/12/2025 1:30 PM EDT Office Visit [facility] [address] [place] [address] Anayeli Heaton NP [address] [place] [address] 02/18/2026 4:30 PM EDT Office Visit [facility] [address] [place] [address] Anayeli Heaton NP [address] [place] [address] documented as of this encounter Procedures Procedure [...] OF EXAM: Jul 19 2024 12:28PM [facility] 0539 - CT [...] performed concurrently and will be dictated separately. Vocational Nurse Lvn (topogram) images: No additional findings. IMPRESSION: 1. [...] any questions regarding this interpretation, please call [phone]. If you are unable to reach us at the number above, please feel free to contact [facility] at [phone]. [id number]^[email or web address]_IDC^SI^ACN Procedure Note Radiology, Radiologist, - 07/22/2024 * * *Final Report* * * DATE OF EXAM: Jul 19 2024 12:28PM [facility] 0539 - CT [...] performed concurrently and will be dictated separately. Vocational Nurse Lvn (topogram) images: No additional findings. IMPRESSION: 1. [...] any questions regarding this interpretation, please call [phone]. If you are unable to reach us at the number above, please feel free to contact [facility] at [phone]. [id number]^AGFA_IDC^SI^ACN us Generic External Data Provider IMG CT PROCEDURES Final Result documented in this encounter Visit Diagnoses Not on filedocumented in this encounter Additional Health Concerns Assessment Noted Time PHQ-9 Depression Total Score: 4 10/02/19 24 1:27 PM EST documented as of this encounter Care Teams Pulvi Mixer Operator Relationship Specialty Start Date End Date Tom Benton MD [address] [place] [address] PCP - General Family Medicine 07/04/24 Margaret Vasques NP Nurse Practitioner Family Medicine 04/16/24 documented as of this encounter
--- OUTSIDE RECORDS SUMMARY | 2025-04-07 09:27 | XMS_ITS | Encounter Summary ---
Author Organization [facility] Address [address] [place] [address] Care Team Providers Care Agency Recruiter Name Role Phone Shaikh ADILENE Etienne Primary Care Provider [phone] Tom Benton MD Primary Care Provider [phone] Margaret Vasques ACCOUNT MANAGEMENT SPECIALIST Unavailable [phone] Unallocated, Noms Provider Primary Care Provi alia Tom Benton MD Primary Care Provider [phone] Encounter Details Date Type Department Care Team (Late st Contact Info) Description 02/27/2024 Clinisync Result Encounter [facility] External Department Unsolicited Shaikh Etienne MD [address] [place] [address] Social History Tobacco Use Types Packs/Day Years [...] How often do you attend chur or scientology services? Never 10/02/2023 Do you belong to any clubs o r organizations such as scientology groups, unions, fraternal or athletic groups, or [...] Recorded Patient Health Questionnaire-2 Score 0 02/26/2024 [facility] ion[facility] Health - Occupational Stress Questionnaire Answer Date [...] Office Visit [facility] [address] [place] [address] Anayeli Heaton NP [address] [place] [address] 02/18/2026 4:30 PM EDT Office Visit [facility] [address] [place] [address] Anayeli Heaton NP [address] [place] [address] documented as of this encounter Procedures Procedure Name Priority Date/Time Associated Diagnosis Comments CT HEAD/BRAIN WO 02/27/2024 2:40 PM EDT documented in this encounter Results * CT HEAD/BRAIN WO (02/27/2024 2:40 PM EDT) Anatomical Region Laterality Modality Radiographic Abby ging 02/27/2024 2:40 PM EDT Narrative 02/27/2024 2:43 [place] [address] CT Scan Report Signed Patient: DOC VILLAGRAN MR#: [id number] : 1950 Acct:[id number] Age/Sex: 73 / M ADM Date: 02/27/24 Loc: CT Attending Dr: Shaikh Lowell Quevedo Ordering Physician: Shaikh Sae Etienne Date of Service: 02/27/24 Procedure(s): CT head/brain wo con Accession Number(s): [id number] cc: Shaikh Sae Etienne [place] [address] Patient Name: DOC VILLAGRAN MRN: [id number] date: 1950 Sex: M Assigned Patient Location: CT Current Patient Location: CT Accession/Order Number: [id number] Exam Date: 02/27/2024 13:06 Report Date: 02/27/2024 [...] Signed By: 02/27/24 1443 DD/ 1440 TD/TT: American Sign Language Teacher: Procedure Note Radiology, Radiologist, MD - 02/27/2024 [place] [address] CT Scan Report Signed Patient: DOC VILLAGRANMR#: [id number] : 1950cct:[id number] Age/Sex: 73 / MADM Date: 02/27/24 Loc: CT Attending Dr: Shaikh Lowell Quevedo Ordering Physician: Shaikh Sae Etienne Date of Service: 02/27/24 Procedure(s): CT head/brain wo con Accession Number(s): [id number] cc: Shaikh Sae Etienne [place] [address] Patient Name: DOC VILLAGRAN MRN: [id number] date: 1950 Sex: M Assigned Patient Location: CT Current Patient Location: CT Accession/Order Number: [id number] Exam Date: 02/27/2024 13:06 Report Date: 02/27/2024 [...] M.D. Signed By:02/27/24 1443 DD/ 1440 TD/TT: American Sign Language Teacher: us Shaikh Lowell HEAD IMG XR PROCEDURES Final Result documented in this encounter Visit Diagnoses Not on filedocumented in this encounter Additional Health Concerns Assessment Noted Time PHQ-9 Depression Total Score: 4 10/02/19 24 1:27 PM EST documented as of this encounter Care Teams Agency Recruiter Relationship Specialty Start Date End Date Shaikh Etienne MD [address] [place] [address] PCP - General Internal Medicine 09/22/23 04/15/24 Tom Benton MD [address] [place] [address] PCP - General Family Medicine 04/16/24 06/24/24 Unallocated, Kacey Canada MD [address] [place] [address] PCP - General Family Medicine 06/25/24 07/03/24 Tom Benton MD [address] [place] [address] PCP - General Family Medicine 07/04/24 Margaret Vasques NP [address] [place] [address] Nurse Practitioner Family Medicine 04/16/24 documented as of this encounter
--- OUTSIDE RECORDS SUMMARY | 2025-04-07 09:27 | XMS_ITS | Encounter Summary ---
Author Organization [facility] Address [address] [place] [address] Care Team Providers Care Electric Truck Crane Operator Name Role Phone Shaikh ADILENE Etienne Primary Care Provider [phone] Tom Benton MD Primary Care Provider [phone] Margaret Vasques CONTRACTOR FIELD HAULING Unavailable [phone] Unallocated, Noms Provider Primary Care Provi alia Tom Benton MD Primary Care Provider [phone] Encounter Details Date Type Department Care Team [...] often do you attend chur ch or mandaeism services? Never 10/02/2023 Do you belong to any clubs o r organizations such as temple groups, unions, fraternal or athletic groups, or [...] Recorded Patient Health Questionnaire-2 Score 0 02/26/2024 [facility] - Occupational Stress Questionnaire Answer [...] place to sleep or slept in a mcc (including now)? No 10/02/2023 Sex and Gender [...] [facility] [address] [place] [address] Anayeli Heaton, CONTRACTOR FIELD HAULING [address] [place] [address] 02/18/2026 4:30 PM EDT Office Visit [facility] [address] [place] [address] Anayeli Heaton, CHELLE [address] [place] [address] documented as of this encounter Procedures Procedure [...] 23 2024 1:20PM [facility] 0539 - CT [...] CT scan report for the abdomen findings. Stencil Cutter Machine (topogram) images: No additional findings. IMPRESSION: 1. [...] any questions regarding this interpretation, please call [phone]. If you are unable to reach us at the number above, please feel free to contact [facility] at [phone]. [id number]^AGFA_IDC^SI^ACN Procedure Note Radiology, Radiologist, - 02/26/2024 * * *Final Report* * * DATE OF EXAM: Feb 23 2024 1:20PM [facility] 0539 - CT [...] CT scan report for the abdomen findings. Stencil Cutter Machine (topogram) images: No additional findings. IMPRESSION: 1. [...] any questions regarding this interpretation, please call [phone]. If you are unable to reach us at the number above, please feel free to contact [facility] at [phone]. [id number]^AGFA_IDC^SI^ACN us Generic External Data Provider IMG CT PROCEDURES Final Result documented in this encounter Visit Diagnoses Not on filedocumented in this encounter Additional Health Concerns Assessment Noted Time PHQ-9 Depression Total Score: 4 10/02/19 24 1:27 PM EST documented as of this encounter Care Teams Electric Truck Crane Operator Relationship Specialty Start Date End Date Shaikh Etienne MD [address] [place] [address] PCP - General Internal Medicine 09/22/23 04/15/24 Tom Benton MD [address] [place] [address] PCP - General Family Medicine 04/16/24 06/24/24 Unallocated, Noms Provider, [facility] [place] [address] PCP - General Family Medicine 06/25/24 07/03/24 Tom Benton MD [address] [place] [address] PCP - General Family Medicine 07/04/24 Margaret Vasques NP [address] [place] [address] Nurse Practitioner Family Medicine 04/16/24 documented as of this encounter
--- OUTSIDE RECORDS SUMMARY | 2025-04-07 09:27 | XMS_ITS | Encounter Summary ---
Author Organization [employer] Address [id number] [address] [place] [address] Care Team Providers Care Sumatra Opener Name Role Phone Shaikh ADILENE Etienne Primary Care Provider [phone] Encounter Details Date Type Department Care Team (Late Contact Info) Description 11/24/2022 Telephone [facility] Pulmonary/Sleep Medicine [address] [address] Livier Wolfe, JERONIMO Social History [...] Physicians Pulmonary/Sleep Medicine [address] [place] [address] Maliha Lentz DO [address] [address] documented as of this encounter Visit Diagnoses Not on filedocumented in this encounter Care Teams Sumatra Opener Relationship Specialty Start Date End Date Shaikh Etienne MD PCP - General Internal Medicine 08/19/22 documented as of this encounter
--- OUTSIDE RECORDS SUMMARY | 2025-04-07 09:27 | XMS_ITS | Encounter Summary ---
Author Organization [facility] Address [address] [place] [address] Care Team Providers Care Property Insurance Agent Name Role Phone Shaikh ADILENE Etienne Primary Care Provider [phone] Tom Benton MD Primary Care Provider [phone] Margaret Vasques SHIPPING AND RECEIVING WEIGHER Unavailable [phone] Unallocated, Noms Provider Primary Care Provi alia Tom Benton MD Primary Care Provider [phone] Encounter Details Date Type Department Care Team (Late st Contact Info) Description 01/01/2024 Clinisync Result Encounter [facility] External Department Unsolicited Shaikh Etienne MD [address] [place] [address] Social History Tobacco Use Types Packs/Day Years [...] How often do you attend chur or orthodoxy services? Never 10/02/2023 Do you belong to any clubs o r organizations such as anabaptist groups, unions, fraternal or athletic groups, or [...] Recorded Patient Health Questionnaire-2 Score 0 01/01/2024 [facility] Occupat ionnm Health - Occupational Stress Questionnaire Answer Date [...] Visit [facility] [address] [place] [address] Anayeli Heaton NP [address] [place] [address] 02/18/2026 4:30 PM EDT Office Visit [facility] [address] [place] [address] Anayeli Heaton NP [address] [place] [address] documented as of this encounter Procedures Procedure Name Priority Date/Time Associated Diagnosis Comments XR TIBIA FIBULA LT 2V 01/01/2024 7:05 PM EDT documented in this encounter Results * XR TIBIA FIBULA LT 2V (01/01/2024 7:05 PM EDT) Anatomical Region Laterality Modality Other 01/01/2024 7:05 PM EDT Narrative 01/01/2024 7:07 [place] [address] XRay Report Signed Patient: DOC VILLAGRAN MR#: [id number] : 1950 Acct:[id number] Age/Sex: 73 / M ADM Date: 01/01/24 Loc: [facility] Attending Dr: Shaikh Lowell Quevedo Ordering Physician: Shaikh Sae Etienne Date of Service: 01/01/24 Procedure(s): XR tibia fibula LT 2V Accession Number(s): [id number] cc: Shaikh Sae Etienne [address] [address] Patient Name: DOC VILLAGRAN MRN: [id number] date: 1950 Sex: M Assigned Patient Location: RAD Current Patient Location: [facility] Accession/Order Number: [id number] Exam Date: 01/01/2024 17:35 Report Date: 01/01/2024 [...] M.D. Signed By: 01/01/241906 DD/ 04 TD/TT: Systems Security Analyst: Procedure Note Radiology, Radiologist, MD - 01/01/2024 [place] [address] XRay Report Signed Patient: DOC VILLAGRANMR#: [id number] : 1950cct:[id number] Age/Sex: 73 / MADM Date: 01/01/24 Loc: [facility] Attending Dr: Shaikh Lowell Quevedo Ordering Physician: Shaikh Sae Etienne Date of Service: 01/01/24 Procedure(s): XR tibia fibula LT 2V Accession Number(s): [id number] cc: Shaikh Sae Etienne [place] [id number] Patient Name: DOC VILLAGRAN MRN: [id number] date: 1950 Sex: M Assigned Patient Location: [facility] Current Patient Location: [facility] Accession/Order Number: [id number] Exam Date: 01/01/2024 17:35 Report Date: 01/01/2024 [...] Reynoso M.D. Signed By:01/01/241906 DD/ 04 TD/TT: Systems Security Analyst: us Shaikh Lowell HEAD [facility] Final Result documented in this encounter Visit Diagnoses Not on filedocumented in this encounter Additional Health Concerns Assessment Noted Time PHQ-9 Depression Total Score: 4 10/02/19 24 1:27 PM EST documented as of this encounter Care Teams Property Insurance Agent Relationship Specialty Start Date End Date Shaikh Etienne MD [address] [place] [address] PCP - General Internal Medicine 09/22/23 04/15/24 Tom Benton MD [address] [place] [address] PCP - General Family Medicine 04/16/24 06/24/24 Unallocated, Kacey Canada MD [address] [facility] [place] [address] PCP - General Family Medicine 06/25/24 07/03/24 Tom Benton MD [address] [place] [address] PCP - General Family Medicine 07/04/24 Margaret Vasques NP [address] [place] [address] Nurse Practitioner Family Medicine 04/16/24 documented as of this encounter
--- OUTSIDE RECORDS SUMMARY | 2025-04-07 09:27 | XMS_ITS | Clinical Summary ---
Author Organization [employer] Address [id number] [address] [place] [address] Care Team Providers Care Swimming Teacher Name Role Phone Shaikh ADILENE Etienne Primary Care Provider [phone] Allergies No known active allergies Medications albuterol [...] s:Chronic obstructive pulmonary disease, unspecified COPD type ([facility]) INHALE 1 PUFF BY MOUTH DAILY 60 each 11 5 Active sertraline (ZOLOFT) 50 mg tablet Take 1 tablet (50 mg total) by mouth in the morning. Active Active Problems Problem Noted Date Diagnosed [...] Visit [facility] [address] [place] [address] Maliha Lentz, Chronic obstructive pulmonary disease, unspecified COPD type ([facility]) (Primary Dx); Lung nodules; Smoker 02/20/2025 11:57 AM EDT - 02/20/2025 11:59 PM EDT Hospital Encounter [facility] - Pulmonary Function [address] [place] [address] Maliha Lentz DO Chronic obstructive pulmonary disease, unspecified COPD type ([facility]) Discharge Disposition: Home 02/20/2025 Travel 02/11/2025 Travel [...] Office Visit [facility] [address] [address] Maliha Lentz DO [address] [address] Health Maintenance Due Date Last Done Comments Tobacco Counseling 1950 Depression Screening 1963 Adult BMI Follow Up Plan 1969 DTaP,Tdap and Td Vaccines (1 - Tdap) 1970 Zoster (Shingles) Vaccine (1 of 2) 1970 Abdominal Aortic Aneurysm (AAA) Screen 2016 Fall Risk Screening 2016 Influenza Vaccine 05/05/2025 Adult BMI Screening 02/20/2026 02/20/2025 Tobacco Screening 02/20/2026 02/20/2025 Medical Devices Not on file Procedures Procedure Name Priority Date/Time Associated Diagnosis Comments SPIROMETRY PRE/POST BRONCHODILATOR AND DLCO Routine 02/20/2025 12:14 PM EDT Chronic obstructive pulmonary disease, unspecified COPD type ([facility]) from Last 3 Months Results * SPIROMETRY PRE/POST BRONCHODILATOR AND DLCO (02/20/2025 12:14 PM EDT) Narrative MANUALLY TRANSCRIBED RESULTS - 03/06/2025 2:24 PM EDT Patient gave good effort and data is reproducible Normal spirometry without any significant obstructive or restrictive impairment Diffusion capacity is mildly impaired at 65. This can be seen in isolation with underlying interstitial lung disease, pulmonary vascular disease, emphysema, anemia, pulmonary hypertension. Please correlate with clinical and radiographic data us Maliha Lentz DO PFT ORDERABLES Final Result MANUALLY TRANSCRIBED RESULTS from Last 3 Months Insurance MEDICARE MEDICAID [place] Care Teams Swimming Teacher Relationship Specialty Start Date End Date Shaikh Etienne MD PCP - General Internal Medicine 08/19/22
--- OUTSIDE RECORDS SUMMARY | 2025-04-07 09:27 | XMS_ITS | Encounter Summary ---
Author Organization [facility] Address [address] [facility] [place] [address] Care Team Providers Care Supervisor Ship Maintenance Services Name Role Phone Shaikh ADILENE Etienne Primary Care Provider [phone] Tom Benton MD Primary Care Provider [phone] Margaret Vasques BATCH BLENDER Unavailable [phone] Unallocated, Noms Provider Primary Care Provi alia Tom Benton MD Primary Care Provider [phone] Encounter Details Date Type Department Care Team [...] often do you attend chur ch or amish services? Never 10/02/2023 Do you belong to any clubs o r organizations such as congregational groups, unions, fraternal or athletic groups, or [...] Recorded Patient Health Questionnaire-2 Score 0 02/26/2024 [facility] - Occupational Stress Questionnaire [...] Office Visit [facility] [address] [address] Anayeli Heaton NP [address] [place] [address] 02/18/2026 4:30 PM EDT Office Visit [facility] [address] [place] [address] Anayeli Heaton NP [address] [place] [address] documented as of this encounter Procedures Procedure Name Priority Date/Time Associated Diagnosis Comments CA ECHO DOPPLER COMPLETE 03/22/2024 4:57 PM EDT documented in this encounter Results * CA ECHO DOPPLER COMPLETE (03/22/2024 4:57 PM EDT) Anatomical Region Laterality Modality Other 03/22/2024 4:57 PM EDT Narrative 03/22/2024 4:58 PM EDT [facility] [place] [id number] Cardiology Report Signed Patient: DOC VILLAGRAN MR#: [id number] : 1950 Acct:[id number] Age/Sex: 74 / M ADM Date: 03/22/24 Loc: CARD Attending Dr: SYDNIE AYOUB Ordering Physician: SYDNIE AYOUB Date of Service: 03/22/24 Procedure(s): CA echo doppler complete Accession Number(s): [id number] cc: Shaikh Sae Etienne; SYDNIE AYOUB Patient Name: DOC VILLAGRAN MR#: [id number] : 1950 Exam Date: 03/22/2024 Ordering Doctor: [...] M.D. Signed By: 03/22/241657 DD/ 56 TD/TT: Pension Fund Manager: Procedure Note Radiology, Radiologist, MD - 03/22/2024 [place] [address] Cardiology Report Signed Patient: DOC VILLAGRANMR#: [id number] : 1950cct:[id number] Age/Sex: 74 / MADM Date: 03/22/24 Loc: CARD Attending Dr: SYDNIE AYOUB Ordering Physician: SYDNIE AYOUB Date of Service: 03/22/24 Procedure(s): CA echo doppler complete Accession Number(s): [id number] cc: Shaikh Sae Etienne; SYDNIE AYOUB Patient Name: DOC VILLAGRAN MR#: [id number] : 1950 Exam Date: 03/22/2024 Ordering Doctor: [...] Pool Canales M.D. Signed By:03/22/248 DD/ TD/TT: Pension Fund Manager: us Generic External Data Provider [facility] Final Result documented in this encounter Visit Diagnoses Not on filedocumented in this encounter Additional Health Concerns Assessment Noted Time PHQ-9 Depression Total Score: 4 10/02/19 24 1:27 PM EST documented as of this encounter Care Teams Supervisor Ship Maintenance Services Relationship Specialty Start Date End Date Shaikh Etienne MD [address] [place] [address] PCP - General Internal Medicine 09/22/23 04/15/24 Tom Benton MD [address] [place] [address] PCP - General Family Medicine 04/16/24 06/24/24 Unallocated, Nomkristy Canada MD [address] [place] [address] PCP - General Family Medicine 06/25/24 07/03/24 Tom Benton MD [address] [place] [address] PCP - General Family Medicine 07/04/24 Margaret Vasques NP [address] [place] [address] Nurse Practitioner Family Medicine 04/16/24 documented as of this encounter
--- OUTSIDE RECORDS SUMMARY | 2025-04-07 09:27 | XMS_ITS | Encounter Summary ---
Author Organization [facility] Address [facility] [place] [address] Care Team Providers Care Junior Account Executive Name Role Phone Shaikh ADILENE Etienne Primary Care Provider [phone] Jj Ambrosio MD Unavailable [phone] Jj Ambrosio MD Unavailable [phone] TorMaliha Gabriella DO Unavailable [phone] Source Comments In the event this information is protected by the Federal Confidentiality of Alcohol and Drug AbusePatient Records regulations: The Federal rules restrict any use of the information to criminally investigate or prosecute any alcohol or drug abuse patient.[facility] Encounter Details Date Type Department Care [...] 1:15 PM EDT Appointment Radiology Pet CT [address] [place] [address] [place] [address] Ct Chest with contrast and lab 05/08/2025 2:40 PM EDT Visit (SP) Office Hematology/Oncology [address] [place] [address] [place] [address] Jaya Frank MD [address] [place] [address] [place] [address] Ct Chest with contrast and lab documented as of this encounter Visit Diagnoses Not on filedocumented in this encounter Care Teams Junior Account Executive Relationship Specialty Start Date End Date Shaikh Etienne MD [facility] [place] [address] PCP - General Primary Care 01/13/21 Jj Ambrosio MD [address] [place] [address] Solar Maintenance Technician Cardiology 01/04/22 Jj Ambrosio MD [address] [place] [address] Solar Maintenance Technician Cardiology 01/04/22 01/04/22 Maliha Lentz DO [address] [place] [address] Internal Medicine 09/15/22 documented as of this encounter
--- OUTSIDE RECORDS SUMMARY | 2025-04-07 09:27 | XMS_ITS | Clinical Summary ---
Author Organization [facility] Address [address] [place] [address] Care Team Providers Care Administrative Services Assistant Name Role Phone Anayeli Heaton MD Primary Care Provider [phone] Allergies No known active allergies Medications albuterol [...] 10 mg by mouth in the morning. 3 Active albuterol 2.5 mg /3 mL (0.083 %) nebulizer solution Take 2.5 mg by nebulization every 6 (six) hours if needed for wheezing. Active Linzess 145 mcg capsule TAKE 1 CAPSULE BY MOUTH IN THE MORNING BEFORE MEALS DO NOT CRUSH OR CHEW 4 Active spironolactone (Aldactone) 25 mg tabletIndication s:Edema, unspecified type Take 1 tablet (25 mg) by mouth in the morning. 90 tablet 3 5 026 Active metoprolol succinate XL (Toprol-XL) 100 mg 24 hr tabletIndication s:Benign hypertensive heart disease with heart failure (CMS/HCC) Take 1 tablet (100 mg) by mouth once daily as directed. 90 tablet 3 5 Active sacubitril-valsa rtan (Entresto) 97-103 mg tabletIndication s:Heart failure with improved ejection fraction (HFimpEF) (CMS/HCC) Take 1 tablet by mouth two times daily. 60 tablet 11 5 Active sertraline (Zoloft) 100 mg tablet Take 100 mg by mouth in the morning. 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 [address] [place] [address] Jaleesa Lima MA Benign hypertensive heart disease with heart failure ([facility]) from Last 3 Months Family History Medical [...] Heterosexual or Straight 03/05 12:56 PM EDT Last Filed Vital Signs Vital Sign Reading Time Taken Comments Blood Pressure 111/53 03/31/2025 1:03 PM EDT Pulse 58 03/31/2025 1:03 PM EDT Temperature 35.8 C (96.4 F) 10/12/2020 11:35 AM EST Respiratory Rate 16 10/12/2020 11:35 AM EST Oxygen Saturation 98% 03/31/2025 1:03 PM EDT Inhaled Oxygen Concentration - - Weight 80.7 kg (178 lb) 03/31/2025 1:03 PM EDT Height 172.7 cm (5' 8 ) 03/31/2025 1:03 PM EDT Body Mass Index 27.06 03/31/2025 1:03 PM EDT Plan of Treatment Health Maintenance Due Date Last Done Comments CT Colonography 1950 Colonoscopy 1950 FIT-DNA 1950 FOBT 1950 Medicare Annual Wellness (AWV) 1950 Sigmoidoscopy 1950 Depression Screening 1963 Pneumococcal Vaccine: 50+ Ye ars (1 of 2 - PCV) 1970 Adult Tetanus 1973 Zoster Vaccines (1 of 2) 2001 Fall Risk Screening 2016 Colorectal Cancer Screening 08/24/2021 FIT 08/24/2021 08/24/2020 COVID-19 Vaccine (1 - 2023-2 5 season) 2024 Influenza Vaccine (#1) 2025 HIB Vaccines Aged Out No longer [...] topic Meningococcal Vaccine Aged Out No mable srinaht eligible based on patient's age to complete this topic Rotavirus Vaccines Aged Out No longer eligible based on patient's age to complete this topic Insurance MEDICARE [place] Care Teams Administrative Services Assistant Relationship Specialty Start Date End Date Anayeli Heaton MD [address] [place] [address] PCP - General Nurse Practitioner 03/31/25
--- OUTSIDE RECORDS SUMMARY | 2025-04-07 09:27 | XMS_ITS | Encounter Summary ---
Author Organization [facility] Address [address] [facility] [address] Care Team Providers Care Media Coordinator Name Role Phone Shaikh ADILENE Etienne Primary Care Provider [phone] Tom Benton MD Primary Care Provider [phone] Margaret Vasques CANDLE MAKER Unavailable [phone] Unallocated, Noms Provider Primary Care Provi alia Tom Benton MD Primary Care Provider [phone] Encounter Details Date Type Department Care Team [...] any clubs o r organizations such as methodist groups, unions, fraternal or athletic groups, or [...] Recorded Patient Health Questionnaire-2 Score 0 02/26/2024 [facility] - Occupational Stress Questionnaire [...] place to sleep or slept in a care home (including now)? No 10/02/2023 Sex and Gender [...] TOM [place] [address] [place] [address] Anayeli Heaton, CANDLE MAKER [address] [place] [address] 02/18/2026 4:30 PM EDT Office Visit [facility] [place] [address] [place] [address] Anayeli Heaton, CHELLE [address] [place] [address] documented as of this encounter Procedures Procedure Name Priority Date/Time Associated Diagnosis Comments CT ABD/PEL W IVCON 02/23/2024 1: 20 PM EDT documented in this encounter Results * CT ABD/PEL W IVCON (02/23/2024 1:20 PM EDT) Anatomical Region Laterality Modality Other 02/23/2024 1:20 PM EDT Narrative 02/26/2024 9:39 AM EDT * * *Final Report* * * DATE OF EXAM: Feb 23 2024 1:20PM [facility] 0530 - CT ABD/PEL W [...] chest CT performed will be reported separately. Screen Tacker (topogram) images: No additional findings. IMPRESSION: 1. [...] any questions regarding this interpretation, please call [phone]. If you are unable to reach us at the number above, please feel free to contact [facility] at [phone]. [id number]^[email or web address]^ACN Procedure Note Radiology, Radiologist, - 02/26/2024 * * *Final Report* * * DATE OF EXAM: Feb 23 2024 1:20PM [facility] 0530 - CT ABD/PEL W [...] chest CT performed will be reported separately. Screen Tacker (topogram) images: No additional findings. IMPRESSION: 1. [...] any questions regarding this interpretation, please call [phone]. If you are unable to reach us at the number above, please feel free to contact [facility] at [phone]. [id number]^[email or web address]^ACN us Generic External Data Provider [facility] Final Result documented in this encounter Visit Diagnoses Not on filedocumented in this encounter Additional Health Concerns Assessment Noted Time PHQ-9 Depression Total Score: 4 10/02/19 24 1:27 PM EST documented as of this encounter Care Teams Media Coordinator Relationship Specialty Start Date End Date Shaikh Etienne MD [address] [place] [address] PCP - General Internal Medicine 09/22/23 04/15/24 Tom Benton MD [address] [place] [address] PCP - General Family Medicine 04/16/24 06/24/24 Unallocated, Kacey Canada MD [address] [place] [address] PCP - General Family Medicine 06/25/24 07/03/24 Tom Benton MD [address] [place] [address] PCP - General Family Medicine 07/04/24 Margaret Vasques NP [address] [place] [address] Nurse Practitioner Family Medicine 04/16/24 documented as of this encounter
--- OUTSIDE RECORDS SUMMARY | 2025-04-07 09:27 | XMS_ITS | Encounter Summary ---
Author Organization [email or web address] Address [id number] [address] [place] [address] Care Team Providers Care Drapery And Upholstery Estimator Name Role Phone Shaikh ADILENE Etienne Primary Care Provider [phone] Encounter Details Date Type Department Care Team (Late st Contact Info) Description 11/23/2022 Telephone [facility] Pulmonary/Sleep Medicine [address] [address] Livier Wolfe RN Social History [...] Lentz: Discussed with patient's oncologist again from [facility] following Mr. Villagran's follow up there. Dr. [...] Wolfe RN - 11/23/2022 7:17 AM EDT Projection Engineer spoke to patient and informed of the following: Bronch with BAL & MOD SED procedure is scheduled for Tuesday, December 06, 2022 at 2:30 pm . Patient to arrive to [facility] at 1:30 pm. Patient to report to [...] on 12-01-22 ?? Make arrangements for a paratransit driver to bring you to and from the hospital on the day of the procedure ?? Bring your ID, current medication list and insurance cards to the hospital ?? Call our office if you become ill such as a cold, cough, fever, sore throat or vomiting on the day before or day of the procedure Patient agreeable to above information and verbalized understanding Projection Engineer to update Dr Lentz Case #[id number] documented in this encounter Plan of Treatment Upcoming Encounters Date Type Department Care Team (Late st Contact Info) Description 08/07/2025 11:45 AM EST Office Visit [facility] Pulmonary/Sleep Medicine [address] [place] [address] Maliha Lentz, DO [address] [place] [address] documented as of this encounter Results * Protime & INR (12/05/2022 11:28 AM EDT) Protime 12.8 9.8 - 13.2 sec 12/05/2022 12:32 PM EDT [facility] Comment:NEW REFERENCE RANGE Inr 1.1 0.8 - 1.1 12/05/2022 12:32 PM EDT [facility] PLASMA 12/05/2022 11:2 8 AM EDT 12/05/2022 11:29 AM EDT us Maliha Lentz DO LAB BLOOD ORDERABLES Final Re sult [address] [place] [address] * (ABNORMAL) Basic Metabolic Panel (12/05/2022 11:28 AM EDT) Sodium 142 134 - 146 mmol/L 12/05/2022 3:51 PM EDT [facility] Potassium, Bld 3.7 3.5 - 5.0 mmol/L 12/05/2022 3:51 PM EDT [facility] Chloride 107 98 - 109 mmol/L 12/05/2022 3:51 PM EDT [facility] CO2 25 22 - 32 mmol/L 12/05/2022 3:51 PM EDT [facility] Anion gap 10 5 - 15 mmol/L 12/05/2022 3:51 PM EDT [facility] BUN 16 5 - 27 mg/dL 12/05/2022 3:51 PM EDT [facility] Creatinine 1.03 0.60 - 1.30 mg/dL 12/05/2022 3:51 PM EDT [facility] Comment:METHOD TRACEABLE TO IDMS STANDARD Glucose 105(H) 65 - 99 mg/dL 12/05/2022 3:51 PM EDT [facility] Calcium 8.8 8.5 - 10.5 mg/dL 12/05/2022 3:51 PM EDT [facility] eGFR (CKD-EPI)non-ra ce dependent 78 >59 ml/min/1.7 3sq.m 12/05/2022 3:51 PM EDT [facility] Comment: Reported eGFR is based on the CKD-EPI 2020 equation that does not use a race coefficient. PLASMA 12/05/2022 11:2 8 AM EDT 12/05/2022 11:29 AM EDT us Maliha Lentz DO LAB BLOOD ORDERABLES Final Re sult [facility] [address] [facility], [address] [place] [address] * (ABNORMAL) CBC auto differential (12/05/2022 11:28 AM EDT) White Blood Cells 9.2 4.0 - 11.0 X10E9/L 12/05/2022 1:47 PM EDT [facility] RBC count 4.36 4.10 - 5.70 X10E12/L 12/05/2022 1:47 PM EDT [facility] Hemoglobin 13.3 13.0 - 17.0 g/dL 12/05/2022 1:47 PM EDT [facility] Hematocrit 39.7 39 - 49 % 12/05/2022 1:47 PM EDT [facility] MCV 91 80 - 100 fL 12/05/2022 1:47 PM EDT [facility] MCH 30.6 27 - 34 pg 12/05/2022 1:47 PM EDT [facility] MCHC 33.6 32 - 36 g/dL 12/05/2022 1:47 PM EDT [facility] RDW 13.7 11.5 - 15.0 % 12/05/2022 1:47 PM EDT [facility] Platelets 281 150 - 450 X10E9/L 12/05/2022 1:47 PM EDT [facility] MPV 7.6 7 - 12 fL 12/05/2022 1:47 PM EDT [facility] % neutrophils 64.3 % 12/05/2022 1:47 PM EDT [facility] % lymphocytes 18.9 % 12/05/2022 1:47 PM EDT [facility] % monocytes 13.1 % 12/05/2022 1:47 PM EDT [facility] % eosinophils 2.9 % 12/05/2022 1:47 PM EDT [facility] % Basophils 0.8 % 12/05/2022 1:47 PM EDT [facility] Neutrophils Absolute (A) 5.9 1.5 - 6.6 X10E9/L 12/05/2022 1:47 PM EDT [facility] Lymphocytes Absolute 1.7 1.0 - 3.5 X10E9/L 12/05/2022 1:47 PM EDT [facility] Monocytes Absolute 1.2(H) 0 - 0.9 X10E9/L 12/05/2022 1:47 PM EDT [facility] Eosinophils Absolute 0.3 0.0 - 0.4 X10E9/L 12/05/2022 1:47 PM EDT [facility] Basophils Absolute 0.1 0.0 - 0.2 X10E9/L 12/05/2022 1:47 PM EDT [facility] Blood / Unknown 12/05/2022 1 1:28 AM EDT 12/05/2022 11:29 AM EDT us Maliha M Tor DO LAB BLOOD ORDERABLES Final Re sult [facility] [address] [facility] [place] [address] * APTT (12/05/2022 11:28 AM EDT) aPTT 35 26 - 37 sec 12/05/2022 12:32 PM EDT [facility] Comment:NEW REFERENCE RANGE PLASMA 12/05/2022 11:2 8 AM EDT 12/05/2022 11:29 AM EDT us Maliha Castro Tor [facility] LAB BLOOD ORDERABLES Final Re sult Performing Organization Address [facility] Co de Phone Number [facility] [address] [facility] [place] [address] documented in this encounter Visit Diagnoses Diagnosis SOB (shortness of breath)- Primary Shortness of breath documented in this encounter Care Teams Drapery And Upholstery Estimator Relationship Specialty Start Date End Date Shaikh Etienne MD PCP - General Internal Medicine 08/19/22 documented as of this encounter
--- OUTSIDE RECORDS SUMMARY | 2025-04-07 09:27 | XMS_ITS | Encounter Summary ---
Author Organization [facility] Address [address] [place] [address] Care Team Providers Care Project Development Director Name Role Phone Shaikh ADILENE Etienne Primary Care Provider [phone] Tom Benton MD Primary Care Provider [phone] Margaret Vasques MICA WASHER GLUER Unavailable [phone] Unallocated, Noms Provider Primary Care Provi alia Tom Benton MD Primary Care Provider [phone] Reason for Visit * Reason Comments Med Refill Encounter Details Date Type Department Care Team (Late st Contact Info) Description 10/25[facility]2023 [facility] [address] [place] [address] Shaikh Etienne MD [address] [place] [address] Male erectile dysfunction, unspecified Social History Tobacco [...] any clubs o r organizations such as rastafarian groups, unions, fraternal or athletic groups, or [...] Recorded Patient Health Questionnaire-2 Score 2 10/02/2023 [facility] ional [...] Visit [facility] [address] [place] [address] Anayeli Heaton NP [address] [place] [address] 02/18/2026 4:30 PM EDT Office Visit [facility] [address] [place] [address] Anayeli Heaton NP [address] [place] [address] documented as of this encounter Visit Diagnoses Diagnosis Male erectile dysfunction, unspecified documented in this encounter Additional Health Concerns Assessment Noted Time PHQ-9 Depression Total Score: 4 10/02/19 24 1:27 PM EST documented as of this encounter Care Teams Project Development Director Relationship Specialty Start Date End Date Shaikh Etienne MD [address] [place] [address] PCP - General Internal Medicine 09/22/23 04/15/24 Tom Benton MD [address] [place] [address] PCP - General Family Medicine 04/16/24 06/24/24 Unallocated, Kacey Canada MD [facility] [place] [address] PCP - General Family Medicine 06/25/24 07/03/24 Tom Benton MD [address] [place] [address] PCP - General Family Medicine 07/04/24 Margaret Vasques NP [address] [place] [address] Nurse Practitioner Family Medicine 04/16/24 documented as of this encounter
--- OUTSIDE RECORDS SUMMARY | 2025-04-07 09:27 | XMS_ITS | Encounter Summary ---
Author Organization [facility] Address [address] [place] [address] Care Team Providers Care Supervisor Doping Name Role Phone Tom Benton MD Primary Care Provider [phone] Margaret Vasques NP Unavailable [phone] Unallocated, Noms Provider Primary Care Provi alia Tom Benton MD Primary Care Provider [phone] Encounter Details Date Type Department Care Team [...] often do you attend chur ch or gnosticism services? Never 10/02/2023 Do you belong to any clubs o r organizations such as religious groups, unions, fraternal or athletic groups, or [...] Recorded Patient Health Questionnaire-2 Score 0 02/26/2024 [facility] - Occupational Stress Questionnaire Answer Date Recorded [...] place to sleep or slept in a half-way (including now)? No 10/02/2023 Sex and Gender [...] Visit [facility] [address] [place] [address] Anayeli Heaton NP [address] [place] [address] 02/18/2026 4:30 PM EDT Office Visit [facility] [address] [place] [address] Anayeli Heaton NP [address] [place] [address] documented as of this encounter Procedures Procedure [...] DATE OF EXAM: Apr 18 2024 11:04AM [facility] 0539 - CT CHEST [...] abdomen: Visualized upper abdomen is grossly unremarkable. Porcelain Buildup Assistant (topogram) images: Unremarkable. IMPRESSION: Mixed response to [...] any questions regarding this interpretation, please call [phone]. If you are unable to reach us at the number above, please feel free to contact [facility]Radiology at [phone]. [id number]^AGFA_IDC^SI^ACN Procedure Note Radiology, Radiologist, - 04/18/2024 * * *Final Report* * * DATE OF EXAM: Apr 18 2024 11:04AM [facility] 0539 - CT CHEST [...] abdomen: Visualized upper abdomen is grossly unremarkable. Porcelain Buildup Assistant (topogram) images: Unremarkable. IMPRESSION: Mixed response to [...] any questions regarding this interpretation, please call [phone]. If you are unable to reach us at the number above, please feel free to [facility] at [phone]. [id number]^AGFA_IDC^SI^ACN us Generic External Data Provider IMG CT PROCEDURES Final Result documented in this encounter Visit Diagnoses Not on filedocumented in this encounter Additional Health Concerns Assessment Noted Time PHQ-9 Depression Total Score: 4 10/02/19 24 1:27 PM EST documented as of this encounter Care Teams Supervisor Doping Relationship Specialty Start Date End Date Tom Benton MD [address] [place] [address] PCP - General Family Medicine 04/16/24 06/24/24 Unallocated, Kacey Canada MD [address] [place] [address] PCP - General Family Medicine 06/25/24 07/03/24 Tom Benton MD [address] [place] [address] PCP - General Family Medicine 07/04/24 Margaret Vasques NP [address] [place] [address] Nurse Practitioner Family Medicine 04/16/24 documented as of this encounter
--- OUTSIDE RECORDS SUMMARY | 2025-04-07 09:27 | XMS_ITS | Encounter Summary ---
Author Organization [facility] Address [id number] [address] [place] [address] Care Team Providers Care Teacher Emotionally Impaired Name Role Phone Shaikh ADILENE Etienne Primary Care Provider [phone] Encounter Details Date Type Department Care Team (Late st Contact Info) Description 09/06/2022 [facility]phone [facility] [address] [address] Sarai Whitley RN Social History [...] will discuss with his Son and call Parnell number back when they decide * Telephone [...] just saw his cancer doctor at the [facility]. They did a CT and now [...] Visit [facility] [address] [place] [address] Maliha Lentz, DO [address] [address] documented as of this encounter Visit Diagnoses Not on filedocumented in this encounter Care Teams Teacher Emotionally Impaired Relationship Specialty Start Date End Date Shaikh Etienne MD PCP - General Internal Medicine 08/19/22 documented as of this encounter
--- OUTSIDE RECORDS SUMMARY | 2025-04-07 09:27 | XMS_ITS | Encounter Summary ---
Author Organization [facility] Address [id number] [address] [place] [address] Care Team Providers Care Program Manager Transportation Name Role Phone Shaikh ADILENE Etienne Primary Care Provider [phone] Encounter Details Date Type Department Care Team (Late Contact Info) Description 11/23/2022 Orders Only [facility] Pulmonary/Sleep Medicine [address] [place] [address] Ref Prov, [place] [address] Social History Tobacco Use Types Packs/Day Years [...] Visit [facility]Sleep [facility] [address] [place] [address] Maliha Lentz, DO [address] [address] documented as of this encounter Procedures Procedure Name Priority Date/Time Associated Diagnosis Comments SURGICAL PATHOLOGY Routine 09/24/2020 SURGICAL PATHOLOGY Routine 07/21/2020 CYTOLOGY Routine 05/29/2020 documented in this encounter Results * Surgical Pathology (09/24/2020) us Not In System Ref Prov PATHOLOGY/CYTOLOGY ORDERA BLES Final Result Performing Organization Address City/State/[facility] Co de Phone Number MANUALLY TRANSCRIBED RESULTS * Surgical Pathology (07/21/2020) us Not In System Ref Prov PATHOLOGY/CYTOLOGY ORDERA BLES Final Result Performing Organization Address [facility] Co de Phone Number MANUALLY TRANSCRIBED RESULTS * Cytology (05/29/2020) us Not In System Ref Prov PATHOLOGY/CYTOLOGY ORDERA BLES Final Result Performing Organization Address [facility] Co de Phone Number MANUALLY TRANSCRIBED RESULTS documented in this encounter Visit Diagnoses Not on filedocumented in this encounter Care Teams Program Manager Transportation Relationship Specialty Start Date End Date Shaikh Etienne MD PCP - General Internal Medicine 08/19/22 documented as of this encounter
--- OUTSIDE RECORDS SUMMARY | 2025-04-07 09:27 | XMS_ITS | Encounter Summary ---
Author Organization [facility] Address [address] [facility] [place] [address] Care Team Providers Care Parts Puller Name Role Phone Shaikh ADILENE Etienne Primary Care Provider [phone] Tom Benton MD Primary Care Provider [phone] Margaret Vasques VARNISH MAKER HELPER Unavailable [phone] Unallocated, Noms Provider Primary Care Provi alia Tom Benton MD Primary Care Provider [phone] Encounter Details Date Type Department Care Team [...] often do you attend chur ch or pentecostalism services? Never 10/02/2023 Do you belong to [...] Recorded Patient Health Questionnaire-2 Score 2 10/02/2023 [facility] - Occupational [...] [facility] [address] [place] [address] Anayeli Heaton NP [address] [place] [address] 02/18/2026 4:30 PM EDT Office Visit [facility] [address] [place] [address] Anayeli Heaton NP [address] [place] [phone] documented as of this encounter Procedures Procedure [...] DATE OF EXAM: Nov 10 2023 12:51PM [facility] 0539 - CT CHEST W IVCON [...] performed concurrently and will be dictated separately. On Site Soil Evaluator (topogram) images: No additional findings. IMPRESSION: 1. [...] any questions regarding this interpretation, please call [phone]. If you are unable to reach us at the number above, please feel free to contact [facility] at [phone]. [id number]^[email or web address]^SI^ACN Procedure Note Radiology, Radiologist, - 11/10/2023 * * *Final Report* * * DATE OF EXAM: Nov 10 2023 12:51PM [facility] 0539 - CT CHEST W IVCON [...] performed concurrently and will be dictated separately. On Site Soil Evaluator (topogram) images: No additional findings. IMPRESSION: 1. [...] any questions regarding this interpretation, please call [phone]. If you are unable to reach us at the number above, please feel free to contact [facility] eRadiology at [phone]. [id number]^[email or web address]^SI^ACN us Generic External Data Provider IMG CT PROCEDURES Final Result documented in this encounter Visit Diagnoses Not on filedocumented in this encounter Additional Health Concerns Assessment Noted Time PHQ-9 Depression Total Score: 4 10/02/19 24 1:27 PM EST documented as of this encounter Care Teams Parts Puller Relationship Specialty Start Date End Date Shaikh Etienne MD [address] [place] [address] PCP - General Internal Medicine 09/22/23 04/15/24 Tom Benton MD [address] [place] [address] PCP - General Family Medicine 04/16/24 06/24/24 Unallocated, Noms Provider, [address] [place] [address] PCP - General Family Medicine 06/25/24 07/03/24 Tom Benton MD [address] [place] [address] PCP - General Family Medicine 07/04/24 Margaret Vasques NP [address] [place] [address] Nurse Practitioner Family Medicine 04/16/24 documented as of this encounter
--- OUTSIDE RECORDS SUMMARY | 2025-04-07 09:27 | XMS_ITS | Clinical Summary ---
Author Organization [facility] Address [address] [place] [address] Care Team Providers Care Client Solutions Manager Name Role Phone Vasques, Brittany [employer]OUR Unavailable [phone] Tom Benton MD Primary Care Provider [phone] Allergies No known active allergies Medications Fluticasone-Ume clidin-Vilant (Trelegy Ellipta) 200-62.5-25 MCG/ACT aerosol powderIndicatio ns:Chronic obstructive pulmonary disease, unspecified (HCC) Inhale 1 puff in the morning. 3 each 08/24/20 23 Active Entresto 97-103 MG tablet Take 1 tablet by mouth in the morning and 1 tablet before bedtime. 08/23/20 23 Active nitroglycerin (Nitrostat) 0.[address] 0.4 mg under the tongue every 5 (five) minutes if needed for chest pain (DISSOLVE 1 (ONE) TABLET UNDER THE TONGUE EVERY 15 MINUTES NEEDED; max 3 (THREE) doses in 24 HOURS) 12/23/19 23 Active metoprolol succinate XL (Toprol-XL) 100 MG 24 hr tablet Take 1 tablet by mouth in the morning. 08/23/20 23 Active aspirin 81 MG EC tablet Take 81 mg by mouth 1 (one) time each day at the same time Active furosemide (Lasix) 40 MG tabletIndicatio ns:Heart failure, unspecified (HCC) Take 1 tablet (40 mg) by mouth Daily 90 tablet 2 08/06/20 24 Active spironolactone (Aldactone) 25 MG tablet Take 0.5 tablets (12.5 mg) by mouth in the morning. 09/11/19 25 Active busPIRone (Buspar) 30 MG tabletIndicatio ns:Depression, unspecified Take 1 tablet (30 mg) by mouth in the morning and 1 tablet (30 mg) before bedtime. 60 tablet 11 09/11/19 25 2025 Active amLODIPine (Norvasc) 10 MG tabletIndicatio ns:Essential (primary) hypertension Take 1 tablet (10 mg) by mouth Daily 90 tablet 1 12/13/19 25 Active albuterol (2.5 MG/3ML) 0.083% nebulizer solutionIndicat ions:Chronic obstructive pulmonary disease, unspecified (HCC) Take 3 mL (2.5 mg) by nebulization every 4 (four) hours if needed for wheezing 270 mL 3 12/13/19 Active Linzess 290 MCG capsule Take 290 mcg by mouth Daily 12/13/19 25 Active sildenafil (Viagra) 50 MG tabletIndicatio ns:Male erectile dysfunction, unspecified Take 1 tablet (50 mg) by mouth if needed for erectile dysfunction 30 tablet 2 12/27/19 25 Active clopidogrel (Plavix) 75 MG tabletIndicatio ns: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 02/07/20 25 2024 Active sertraline (Zoloft) 100 MG tabletIndicatio ns:Mild episode of recurrent major depressive disorder Take 1 tablet (100 mg) by mouth Daily 30 tablet 1 02/13/20 25 Active potassium chloride CR (Klor-Con M10) 10 MEQ ER tabletIndicatio ns:Hypokalemia Take 1 tablet (10 mEq) by mouth Daily 90 tablet 1 03/09/20 25 2024 Active potassium chloride CR (Klor-Con M10) 10 MEQ ER tabletIndicatio ns:Hypokalemia Take 1 tablet (10 mEq) by mouth Daily 30 tablet 2 12/13/19 25 2024 Discontinued Active Problems Problem Noted Date Diagnosed Date Chronic systolic (congestive) heart failure 12/04 Assessment & Plan (12/26/2024 7:29 PM EDT): Follows with [facility] cardiology Entresto, diuretics, amlodpine GERD (gastroesophageal reflux [...] of the risks of continued smoking: stroke, ID, all forms of cancer, lung disease, and [...] of the risks of continued smoking: stroke, ID, all forms of cancer, lung disease, and [...] Overview (10/02/2023): Last Assessment & Plan: Assessment: stable. Follows up with cardiology HLD (hyperlipidemia) [...] & Plan (02/12/2025 6:49 AM EDT): Continue fu w oncology Assessment & Plan (12/26/2024 7:25 PM EDT): Continue fu w oncology Assessment & Plan (02/26/2024 1:57 [...] EST): Improved since addition of Elavil. Cw Ambien and Elavil. Carotid artery stenosis 06/19/2020 Aneurysm of thoracic [...] PM EST): EF improved to 65%. Following [facility] cardiology. Euvolemic. Doing overall ok. On Toprol, [...] Encounters Date Type Department Care Team Description 03/09/2025 Refill [facility] [address] [place] [phone] Tom Benton MD Hypokalemia 02/21/2025 Clinisync Result Encounter [facility] External Department Unsolicited Provider, Generic External Data 02/12/2025 1:20 PM EDT Office Visit [facility] [address] [place] [phone] Anayeli Heaton NP Medicare annual wellness visit, subsequent (Primary Dx); Tobacco dependence; Mild episode of recurrent major depressive disorder ; Primary hypertension ; Adenocarcinoma of right lung (HCC) 02/12/2025 Bamboo flowsheet [facility] [address] [place] [phone] Anayeli Heaton NP 02/10/2025 Refill [facility] [address] [place] [phone] Anayeli Heaton, CHELLE Mild episode of recurrent major depressive disorder ; Atherosclerotic heart disease of [place] coronary artery without angina pectoris 01/30/2025 Clinisync Result Encounter [facility] External Department Unsolicited Provider, Generic External Data 01/30/2025 Clinisync Result Encounter [facility] External Department Unsolicited Provider, Generic External Data 01/30/2025 Clinisync Result Encounter [facility] External Department Unsolicited Provider, Generic External Data 01/23/2025 Refill [facility] [address] [place] [phone] Anayeli Heaton, CHELLE Shortness of breath 01/14/2025 Refill [facility] [address] [place] [phone] Tom Benton MD Atherosclerotic heart disease of [place] coronary artery without angina pectoris 01/13/2025 Refill [facility] [address] [place] [phone] Tom Benton MD Atherosclerotic heart disease of [place] coronary artery without angina pectoris from Last 3 Months Family History Medical [...] often do you attend chur ch or denominational services? Never 10/02/2023 Do you belong to any clubs o r organizations such as buddhism groups, unions, fraternal or athletic groups, or [...] Recorded Patient Health Questionnaire-2 Score 1 02/12/2025 [facility] - [...] place to sleep or slept in a snf (including now)? No 10/02/2023 Sex and Gender [...] Height 167.6 cm (5' 6 ) 09/11/2024 1:35 PM EST Body Mass Index 29.02 09/11/2024 1:35 PM EST Plan of Treatment Upcoming Encounters Date Type Department Care Team (Late st Contact Info) Description 05/12/2025 1:30 PM EDT Office Visit [facility] [address] [place] [phone] Anayeli Heaton, [employer] [address] [place] [phone] 02/18/2026 4:30 PM EDT Office Visit [facility] [address] [place] [phone] Anayeli Heaton, [employer] [address] [place] [phone] Health Maintenance Due Date Last Done Comments CT Colonography 1950 FIT 1950 FOBT 1950 Sigmoidoscopy 1950 FIT-DNA 08/24/2023 08/24/2020 Influenza Vaccine (#1) 2025 Pneumococcal Vaccine: 65+ Years (1 of 2 - PCV) 09/11/2025 Postponed from 10/1969 (Patient Refused) Medicare Annual Wellness (AWV) 02/12/2026 02/12/2025, 10/02/2023, 10/02/2023 Colonoscopy 04/18/2032 04/18/2022 Colorectal Cancer Screening 04/18/2032 Procedures Procedure Name Priority Date/Time Associated Diagnosis Comments CA ECHO DOPPLER COMPLETE 02/21/2025 6:[address] ABD/PEL W IVCON 01/30/2025 2: 25 [...] EDT from Last 3 Months Results * CA ECHO DOPPLER COMPLETE (02/21/2025 6:44 PM EDT) Anatomical Region Laterality Modality Other 02/21/2025 6:44 PM EDT Narrative 02/21/2025 6:45 [place] [address] Cardiology Report Signed Patient: DOC VILLAGRAN MR#: [id number] : 1950 Acct:[id number] Age/Sex: 74 / M ADM Date: 02/21/25 Loc: CARD Attending Dr: SYDNIE AYOUB Ordering Physician: SYDNIE AYOUB Date of Service: 02/21/25 Procedure(s): CA echo doppler complete Accession Number(s): [id number] cc: Anayeli Heaton M[employer]; SYDNIE AYOUB Patient Name: DOC VILLAGRAN MR#: [id number] : 1950 Exam Date: 02/21/2025 Ordering Doctor: DR SYDNIE AYOUB M.D. ECHOCARDIOGRAM REPORT PROCEDURE: CA ECHO DOPPLER COMPLETE INDICATIONS: Aortic aneurysm, CABGx3, aortic valve replacement, hypertension COMPARISON: None. DESCRIPTION: COMPLETE ECHOCARDIOGRAM Real-time transthoracic echocardiography with 2D, M-mode, spectral and color flow Doppler performed. QUALITY: Technical quality was good. LEFT VENTRICLE: Normal chamber size. Severe concentric left ventricular hypertrophy. Normal systolic function. Estimated left ventricular ejection fraction is 60%. LV EF: Normal left ventricular ejection fraction, (>55%). DIASTOLIC: Diastolic function is indeterminate. ATRIAL SEPTUM: Visually appears intact. LEFT ATRIUM: Normal chamber size. RIGHT ATRIUM: Normal chamber size. RIGHT VENTRICLE: Normal chamber size. Normal right ventricular systolic function. TRICUSPID VALVE: Normal mobility and thickness. No stenosis with mild regurgitation. No evidence of pulmonary hypertension. RVSP 28 mmHg MITRAL VALVE: Normal mobility and thickness. No evidence of mitral valve stenosis. There is no mitral annular calcification. AORTIC VALVE: Bio-Prosthetic valve appears well seated in the aortic position with normal doppler flow. Mean systolic gradient is 9 mmHg. No aortic regurgitation. AORTIC ROOT: Aortic root (4.3 cm) and ascending aorta (4.1 cm) are mildly to moderately dilated. PULMONIC VALVE: Normal thickness and mobility. No stenosis. No regurgitation. PERICARDIUM: No evidence of pericardial effusion. IVC: Collapses with inspiration. IVC is normal in size. PLEURA: CONCLUSION: 1. Severe concentric left ventricular hypertrophy with normal systolic function. Estimated LVEF is 60%. 2. Normal right ventricular size and systolic function. 3. Bioprosthetic aortic valve is well-seated in the aortic position with normal Doppler flows. No aortic regurgitation. 4. Mildly to moderately dilated aortic root and ascending aorta. 5. Normal right-sided pressures. Adult Echocardiography Procedure Report Left Ventricle LVEDD (3.7 - 5.6 cm): 3.85 cm LVESD (2.2 - 4.0 cm): 2.67 cm LVIVS thickness (0.6 - 1.2 cm): 1.74 cm LVPW thickness (0.5 - 1.0 cm): 1.38 cm e': 0.14 m/s E - e': 4.98 LVOT Max Gradient: 1.89 mm[Hg] LVOT Area (cm2): 0.69 m/s Peak Velocity (LVOT): 0.69 m/s Mean Velocity (LVOT): 0.48 m/s LVOT Diameter 2.67 cm Left Atrium LA Volume Index (2D A2C): 28.34 ml/m2 Left Atrium Systolic Dimension: 3.96 cm Mitral Valve MV E to A Ratio: 0.90 Mitral Valve A-Wave Peak Velocity: 0.76 m/s Mitral Valve E-Wave Peak Velocity: 0.69 m/s Right Ventricle Aorta AO Root Diam: 4.30 cm Ascending Ao Diam: 4.09 cm Aortic Valve AoV Area (Peak Contreras): 1.87 cm2, 1.87 cm2 AoV Area (VTI): 2.18 cm2, 2.18 cm2 Peak Velocity(Antegrade Flow): 2.06 m/s Peak Gradient(Antegrade Flow): 16.99 mm[Hg] Mean Velocity(Antegrade Flow): 1.40 m/s Mean Gradient(Antegrade Flow): 9.14 mm[Hg] Velocity Time Integral: 49.28 cm Tricuspid Valve Peak Velocity (Regurgitant Flow): 2.49 m/s, 2.50 m/s Pulmonic Valve Peak Velocity: 1.17 m/s Peak Gradient: 5.52 mm[Hg] Right Atrium Right Atrium Systolic Pressure: 50.75 ml, 50.75 ml Dictated by: Sydnie Ayoub M.D. on 02/21/2025 at 18:40 Approved by: Sydnie Ayoub M.D. on 02/21/2025 at 18:44 Dictated By: SYDNIE AYOUB Signed By: 02/21/251844 DD/ 43 TD/TT: Sustainability Engineer: Procedure Note Radiology, Radiologist, MD - 02/21/2025 [place] [address] Cardiology Report Signed Patient: DOC VILLAGRANMR#: [id number] : 1950cct:[id number] Age/Sex: 74 / MADM Date: 02/21/25 Loc: CARD Attending Dr: SYDNIE AYOUB Ordering Physician: SYDNIE AYOUB Date of Service: 02/21/25 Procedure(s): CA echo doppler complete Accession Number(s): [id number] cc: Anayeli Heaton [employer]; SYDNIE AYOUB Patient Name: DOC VILLAGRAN MR#: [id number] : 1950 Exam Date: 02/21/2025 Ordering Doctor: DR SYDNIE AYOUB M.D. ECHOCARDIOGRAM REPORT PROCEDURE: CA ECHO DOPPLER COMPLETE INDICATIONS: Aortic aneurysm, CABGx3, aortic valve replacement, hypertension COMPARISON: None. DESCRIPTION: COMPLETE ECHOCARDIOGRAM Real-time transthoracic echocardiography with 2D, M-mode, spectral and color flow Dopplerperformed. QUALITY: Technical quality was good. LEFT VENTRICLE: Normal chamber size. Severe concentric leftventricular hypertrophy. Normal systolic function. Estimated left ventricularejection fraction is 60%. LV EF: Normal left ventricular ejection fraction, (>55%). DIASTOLIC: Diastolic function is indeterminate. ATRIAL SEPTUM: Visually appears intact. LEFT ATRIUM: Normal chamber size. RIGHT ATRIUM: Normal chamber size. RIGHT VENTRICLE: Normal chamber size. Normal right ventricularsystolic function. TRICUSPID VALVE: Normal mobility and thickness. No stenosis with mild regurgitation. No evidence of pulmonary hypertension. RVSP 28 mmHg MITRAL VALVE: Normal mobility and thickness. No evidence of mitralvalve stenosis. There is no mitral annular calcification. AORTIC VALVE: Bio-Prosthetic valve appears well seated in the aortic position with normal doppler flow. Mean systolic gradient is 9 mmHg.No aortic regurgitation. AORTIC ROOT: Aortic root (4.3 cm) and ascending aorta (4.1 cm) aremildly to moderately dilated. PULMONIC VALVE: Normal thickness and mobility. No stenosis. No regurgitation. PERICARDIUM: No evidence of pericardial effusion. IVC: Collapses with inspiration. IVC is normal in size. PLEURA: CONCLUSION: 1. Severe concentric left ventricular hypertrophy with normal systolic function. Estimated LVEF is 60%. 2. Normal right ventricular size and systolic function. 3. Bioprosthetic aortic valve is well-seated in the aortic position with normal Doppler flows. No aortic regurgitation. 4. Mildly to moderately dilated aortic root and ascending aorta. 5. Normal right-sided pressures. Adult Echocardiography Procedure Report Left Ventricle LVEDD (3.7 - 5.6 cm): 3.85 cm LVESD (2.2 - 4.0 cm): 2.67 cm LVIVS thickness (0.6 - 1.2 cm): 1.74 cm LVPW thickness (0.5 - 1.0 cm): 1.38 cm e': 0.14 m/s E - e': 4.98 LVOT Max Gradient: 1.89 mm[Hg] LVOT Area (cm2): 0.69 m/s Peak Velocity (LVOT): 0.69 m/s Mean Velocity (LVOT): 0.48 m/s LVOT Diameter 2.67 cm Left Atrium LA Volume Index (2D A2C): 28.34 ml/m2 Left Atrium Systolic Dimension: 3.96 cm Mitral Valve MV E to A Ratio: 0.90 Mitral Valve A-Wave Peak Velocity: 0.76 m/s Mitral Valve E-Wave Peak Velocity: 0.69 m/s Right Ventricle Aorta AO Root Diam: 4.30 cm Ascending Ao Diam: 4.09 cm Aortic Valve AoV Area (Peak Contreras): 1.87 cm2, 1.87 cm2 AoV Area (VTI): 2.18 cm2, 2.18 cm2 Peak Velocity(Antegrade Flow): 2.06 m/s Peak Gradient(Antegrade Flow): 16.99 mm[Hg] Mean Velocity(Antegrade Flow): 1.40 m/s Mean Gradient(Antegrade Flow): 9.14 mm[Hg] Velocity Time Integral: 49.28 cm Tricuspid Valve Peak Velocity (Regurgitant Flow): 2.49 m/s, 2.50 m/s Pulmonic Valve Peak Velocity: 1.17 m/s Peak Gradient: 5.52 mm[Hg] Right Atrium Right Atrium Systolic Pressure: 50.75 ml, 50.75 ml Dictated by: Sydnie Ayoub M.D. on 02/21/2025 at 18:40 Approved by: Sydnie Ayoub M.D. on 02/21/2025 at 18:44 Dictated By: SYDNIE AYOUB Signed By:02/21/251844 DD/ 43 TD/TT: Sustainability Engineer: [facility] External Data Provider [facility] Final Result * CT ABD/PEL W IVCON (01/30/2025 2:25 PM EDT) Anatomical Region Laterality Modality Other 01/30/2025 2:25 PM EDT Narrative 01/31/2025 11:17 AM EDT * * *Final Report* * * DATE OF EXAM: Jan 30 2025 2:25PM [facility] 0530 - CT ABD/PEL W IVCON [...] any questions regarding this interpretation, please call [phone]. If you are unable to reach us at the number above, please feel free to contact [facility] at [phone]. [id number]^AGFA_IDC^SI^ACN Procedure Note Radiology, Radiologist, - 01/31/2025 * * *Final Report* * * DATE OF EXAM: Jan 30 2025 2:25PM [facility] 0530 - CT ABD/PEL W IVCON [...] any questions regarding this interpretation, please call [phone]. If you are unable to reach us at the number above, please feel free to contact [facility] at [phone]. [id number]^[email or web address]^SI^ACN us Generic External Data Provider [facility] Final Result * CT chest w IV contrast (01/30/2025 2:25 PM EDT) Anatomical Region Laterality Modality Body, Chest Computed Tomogra phy 01/30/2025 2:25 PM EDT Narrative 01/31/2025 10:59 AM EDT * * *Final Report* * * DATE OF EXAM: Jan 30 2025 2:25PM [facility] 0539 - CT CHEST W IVCON [...] any questions regarding this interpretation, please call [phone]. If you are unable to reach us at the number above, please feel free to contact [facility] at [phone]. [id number]^AGFA_IDC^SI^ACN Procedure Note Radiology, Radiologist, - 01/31/2025 * * *Final Report* * * DATE OF EXAM: Jan 30 2025 2:25PM [facility] 0539 - CT CHEST W IVCON [...] any questions regarding this interpretation, please call [phone]. If you are unable to reach us at the number above, please feel free to contact [facility] at [phone]. [id number]^AGFA_IDC^SI^ACN Generic External Data Provider IMG CT PROCEDURES Final Result * [facility] VIT B12 SERPL-MCNC (01/30/2025 1:29 PM EDT) [facility] VIT B12 SERPL-MCNC 277 232 - 1,245 pg/mL [facility] 01/30/2025 1:29 PM EDT 01/30/2025 10:35 PM EDT Narrative VERO - 01/31/2025 6:18 AM EDT Specimen Type: BLOOD SPECIMEN Ordering Facility: [facility] Address: [address] [place] [address] Original Ordering Provider: LINETTE BAI Generic External Data Provider VERO pruitt Result [facility] [address] [place], [place] [address] [place] [address] * [facility] IRON+TIBC PNL SERPL (01/30/2025 1:29 PM EDT) [facility] IRON SERPL-MCNC 67 41 - 186 ug/dL [facility] TIBC SERPL-MCNC 329 232 - 386 ug/dL [facility] IRON/TIBC SERPL-SRTO 20.4 15.0 - 57.0 % [facility] 01/30/2025 1:29 PM EDT 01/30/2025 10:35 PM EDT Narrative CLINISYNC - 01/31/2025 6:01 AM EDT Specimen Type: BLOOD SPECIMEN Ordering Facility: [facility] Address: [address] [place] [address] Original Ordering Provider: LINETTE BAI us Generic External Data Provider CLINISYNC F inal Result Performing Organization Address [facility] Co de Phone Number [facility] [address] [place] [address] * [facility] FOLATE SERPL-MCNC (01/30/2025 1:29 PM EDT) [facility] FOLATE SERPL-MCNC 12.6 >4.7 ng/mL [facility] 01/30/2025 1:29 PM EDT 01/30/2025 10:35 PM EDT Narrative CLINISYNC - 01/31/2025 6:18 AM EDT Specimen Type: BLOOD SPECIMEN Ordering Facility: [facility] Address: [address] [place] [address] Original Ordering Provider: LINETTE BAI us Generic External Data Provider CLINISYNC F inal Result Performing Organization Address [facility] de Phone Number [facility] [address] [place] [address] * [facility] FERRITIN SERPL-MCNC (01/30/2025 1:29 PM EDT) [facility] FERRITIN SERPL-MCNC 187.0 30.3 - 565.7 ng/mL [facility] 01/30/2025 1:29 PM EDT 01/30/2025 10:35 PM EDT Narrative CLINISYNC - 01/31/2025 6:18 AM EDT Specimen Type: BLOOD SPECIMEN Ordering Facility: [facility] Address: [address] [place] [address] Original Ordering Provider: LINETTE BAI us Generic External Data Provider CLINISYNC F inal Result Performing Organization Address [facility]/ZIP Co de Phone Number VERO WHITNEY [address] [facility] [address] [address] * [facility] EPO SERPL-ACNC (01/30/2025 1:29 PM EDT) Pathologist [facility] EPO SERPL-ACNC 11.5 2.6 - 18.5 mIU/mL [facility] 01/30/2025 1:29 PM EDT 01/30/2025 11:18 PM EDT Narrative CLINISYNC - 01/31/2025 12:07 PM EDT Specimen Type: BLOOD SPECIMEN Ordering Facility: [facility] Address: [address] [place], [place] [address] Original Ordering Provider: LINETTE BAI us Generic External Data Provider CLINISYNC F inal Result Performing Organization Address [facility] Co de Phone Number VERO WHITNEY [address] [address] * (ABNORMAL) [facility] CBC W AUTO DIFF BLD (01/30/2025 1:29 PM EDT) Pathologist [facility] WBC # BLD AUTO 8.67 3.70 [...] 1:37 PM EDT Narrative VERO - 01/30/2025 1:40 PM EDT Specimen Type: BLOOD SPECIMEN Ordering Facility: [facility] Address: [address] [place] [address] Original Ordering Provider: LINETTE BAI us Generic External Data Provider CLINISYNC F inal Result [facility] [address] [place] [address] * (ABNORMAL) [facility] COMP METAB 2000 PNL [...] 74 - 99 mg/dL [facility] Comment: [place] Diabetes Association (ADA) provides guidance for cutoff [...] Standards of Medical Care in Diabetes 2016, [place] Diabetes Association. Diabetes Care. 2016.39(Suppl 1). [facility] [...] EDT Specimen Type: BLOOD SPECIMEN Ordering Facility: [facility] Address: [address] [place] [address] Original Ordering Provider: LINETTE BAI us Generic External Data Provider VERO F inal Result Performing Organization Address City/State/[facility] Co de Phone Number [facility] [address] [place] [address] from Last 3 Months Insurance MEDICARE MEDICAID [place] Care Teams Client Solutions Manager Relationship Specialty Start Date End Date Tom Benton MD [address] [place] [phone] PCP - General Family Medicine 07/04/24 Margaret Vasques NP Nurse Practitioner Family Medicine 04/16/24
--- OUTSIDE RECORDS SUMMARY | 2025-04-07 09:27 | XMS_ITS | Encounter Summary ---
Author Organization [facility] Sys [facility] Address [id number] [address] [place] [address] Care Team Providers Care Media Coordinator Name Role Phone Shaikh ADILENE Etienne Primary Care Provider [phone] Encounter Details Date Type Department Care Team (Late st Contact Info) Description 02/01/2023 Telephone [facility] Pulmonary[facility]Sleep Medicine [address] [address] Livier Wolfe RN Social History [...] Wolfe RN - 02/01/2023 4:21 PM EDT Wax Blender spoke to patient and informed per Dr Lentz, culture data has finalized. There is no evidence of AFB (non-tuberculous) infection or tuberculosis. Recommend patient to keep f/u appt on 02-02-23 in [place]. Patient agreeable. documented in this encounter Plan of Treatment Upcoming Encounters Date Type Department Care Team (Late st Contact Info) Description 08/07/2025 11:45 AM EST Office Visit [facility] Pulmonary/Sleep Medicine [address] [place] [address] Maliha Lentz DO [address] [address] documented as of this encounter Visit Diagnoses Not on filedocumented in this encounter Care Teams Media Coordinator Relationship Specialty Start Date End Date Shaikh Etienne MD PCP - General Internal Medicine 08/19/22 documented as of this encounter
--- OUTSIDE RECORDS SUMMARY | 2025-04-07 09:27 | XMS_ITS | Encounter Summary ---
Author Organization [facility] [employer] Address [id number] [address] [place] [address] Care Team Providers Care Financial Accountant Name Role Phone Shaikh ADILENE Etienne Primary Care Provider [phone] Encounter Details Date Type Department Care Team (Late st Contact Info) Description 08/25/2022 [facility] [address] [address] Sarai Whitley, JERONIMO Social History [...] Office Visit [facility] [address] [address] Maliha Lentz, DO [address] [address] documented as of this encounter Visit Diagnoses Not on filedocumented in this encounter Care Teams Financial Accountant Relationship Specialty Start Date End Date Shaikh Etienne MD PCP - General Internal Medicine 08/19/22 documented as of this encounter
--- NOTE | 2025-04-07 09:40 | NM_ITS ---
Patient Name: ALESSIO BURNS MR#: [id number] : 1950 Exam Date: 04/07/2025 Ordering Doctor: DR SYDNIE AYOUB M.D. RADIOLOGY REPORT PROCEDURE: NM DELORIS PERF SPECT REST STR COMPARISON: None. INDICATIONS: CORONARY ARTERY DISEASE, CHEST PAIN TECHNIQUE: Exam Description: Rest/Stress one day protocol gated SPECT Rest Imagin.6 mCi Tc-99m Cardiolite IV on 04/07/2025 Stress Imaging 30.9 mCi Tc-99m Cardiolite IV on 04/07/2025 Exercise Protocol: 0.4 mg Lexiscan given IV Heart Rate (bpm): Rest: 57 Max: 68 PMHR: 46 Blood Pressure: Rest: 145/69 Max: 145/69 Symptoms: Rest and peak stress ECG findings were pending and the EKG portion of the study was pending per attending physician [facility] . For more details please see separate cardiac stress test report. FINDINGS: QUALITY OF STUDY: Good 1.PERFUSION DEFECT: LOCATION: Inferior SIZE: Medium SEVERITY: Mild TYPE: Fixed with normal contractility and thickening consistent with soft tissue attenuation WALL MOTION: Normal 2.PERFUSION DEFECT: LOCATION: Apical SIZE: Small SEVERITY: Severe TYPE: Fixed WALL MOTION: Hypokinetic LV SIZE: 101 mL. TID / TCD: 0.8 LVEF: Calculated EF 60%. SUMMARY: Abnormal myocardial perfusion imaging study CONCLUSION: Abnormal myocardial perfusion nuclear stress test showing evidence of prior apical infarct/scar, no evidence of ischemia. Diaphragmatic attenuation also was noted Normal left ventricular systolic function with hypokinetic apex, ejection fraction 60% No transient ischemic dilatation, TID 0.8 EKG portion of stress test is reported separately Dictated by: Mitch Griffin MD on 04/11/2025 at 18:00 Approved by: Mitch Griffin MD on 04/11/2025 at 18:05
--- NOTE | 2025-04-07 11:43 | PC.NURSE ---
Nursing Note Cardiac Stress Test Reviewed: Medication, allergies and patient history reviewed. Stress Test: [x ] Patient tolerated stress test well. [ ] Patient unable to tolerate walking on treadmill. Switched to Lexiscan stress test. [x ] No chest pain noted per patient [ ] Chest pain that resolved prior to leaving stress lab. [x ] No dyspnea noted. [ ] Dyspnea that resolved prior to leaving stress lab. [x ] Patient left stress lab asymptomatic and hemodynamically stable. [ ] Patient taken to the Emergency Room due to non-resolving symptoms following stress test. [ ] Patient achieved target heart rate. [ ] Patient unable to achieve target heart rate. [ ] Aminophylline administered as reversal agent to Lexiscan (Regadenoson). [ ] Nitro administered. Nursing Comments:
[2025-04-07] MEDS: REGADENOSON 0.4 MG/5 ML SYRINGE IV (11:46)
--- NOTE | 2025-04-07 18:04 | PM.STRESS ---
Stress Test Stress Test Allergies Allergy/AdvReac Type Severity Reaction Status Date / Time No Known Drug Allergies Allergy Verified 10/14/24 17:06 Requesting physician: SYDNIE AYOUB Procedure: This was a Lexiscan stress test with myocardial perfusion imaging performed at the [facility] on 04/07/2025. Intravenous line was secured. The patient was attached to electrocardiographic monitoring. Baseline vital signs and ECG were obtained. Lexiscan 0.4 mg was administered intravenously followed by administration of Cardiolite. The patient then went on to obtain myocardial perfusion imaging. Resting heart rate was 57 bpm and peak heart rate was 68 bpm. Resting blood pressure was 145/69 and peak blood pressure was 145/69. General Information: Reason for Stress Test: Chest pain, CAD. Cardiac History and Risk Factors: CAD, hypertension, CABG, HI. Resting 12 - Lead Electrocardiogram: Sinus bradycardia with first-degree AV block, anterior infarct, age undetermined. Stress Test: Protocol: Pharmacologic stress with Lexiscan. Exercise Capacity: Not assessed. Blood Pressure Response: Resting hypertension. Rhythm: Sinus rhythm with no arrhythmias. ST - Response: Ischemic ST changes seen. Patient Response: No chest pain or shortness of breath. Interpretation: 1. No ischemic ST changes seen following infusion of Lexiscan. 2. Myocardial perfusion images will be reported separately.
== END 2025-04-07 09:24 | disposition home or self-care (01) ==
LOC: NM 09:23
PROVIDERS: PCP Nurse Practitioner; Visit Provider Internal Medicine Interventional Cardiology
DX: I25.118 Atherosclerotic heart disease of native coronary artery with other forms of angina pectoris (principal); R94.39 Abnormal result of other cardiovascular function study
CPT/HCPCS: 78452; 93017; A9500; J2785

== ENCOUNTER 2025-04-13 20:41 | Emergency (ER) | payer MEDICARE, MEDICAID, SELFPAY ==
[2025-04-13 20:46] VITALS: BP 120/47; PULSE 60; TEMP 36.3; O2SAT 94; BMI 28.7
--- OUTSIDE RECORDS SUMMARY | 2025-04-13 20:50 | XMS_ITS | CCD ---
Author Organization [facility] Care Team Providers Care System Specialist Name Role Phone Shaik Etienne MDh Primary Care Provider Sydnie Ambrosio MD Unavailable [phone] MD Ivette Etienneikh Primary Care Provider DO Krzysztof Queen Attending Provider [phone] Shaik Etienne MDh Primary Care Provider Sydnie Ambrosio MD Unavailable Maliha Lentz DO Unavailable [facility] Primary Care Unavailable MISC, DR CALLOWAY Attending Unavailable MISC, DR CALLOWAY Consulting Unavailable MISC, DR CALLOWAY Admitting Unavailable MOUKARBEL, DR OTOOLE Admitting Unavailable [facility] Primary Care Unavailable MOUKARBEL, DR OTOOLE Attending Unavailable MOUKAGEMINIEL, DR OTOOLE Consulting [facility] Unavailable MOUKARBEL, DR OTOOLE Attending Unavailable MOUKARBEL, DR OTOOLE Consulting Unavailable MOUKARBEL, DR OTOOLE Admitting Unavailable Sydnie Ambrosio MD Unavailable MD Ivette Etienneikh Primary Care Provider MD Paramjit Spring Attending Provider Paramjit Spring Attending Unavailable Paramjit Spring Admitting Unavailable Ivette Etienneikh Primary Care Unavailable Tavo Hull Unavailable Shaik Etienne MDh Primary Care Provider Shaik Etienne MDh Primary Care Provider Tor Garcia LIEBERMANna Castro Unavailable Tor Garcia LIEBERMANna Gabriella Unavailable Chetan HEAD, Tom Primary Care Provider [phone] Vasques DIGITAL ASSOCIATE MEDIA DIRECTOR, Jasen Unavailable Chetan HEAD, Tom Primary Care Provider Lowell HEAD, [facility] Primary Care Provider Lowell HEAD, [facility] Primary Care Provider Caprice DIGITAL ASSOCIATE MEDIA DIRECTOR, Jasen Unavailable ANAYELI HEATON Attending Unavailable ANAYELI HEATON Attending Unavailable [facility], [facility] Attending Unavailable CAPRICE, JASEN Attending Unavailabl e CAPRICE, JASEN Attending Unavailabl e MALIHA LENTZ Attending Unavailable MALIHA LENTZ Referring Unavailable FA[facility], [facility] Primary Care Unavailable MALIHA LENTZ Attending [facility] Referring [facility] Primary Care Unavailable MALIHA LENTZ Attending [facility]available [facility] Referring [facility] Primary Care Unavailable Lowell HEAD, [facility] Primary Care Unavailable ABHYANKAR, JAYA Referring Unavailable ABHYANKAR, JAYA Attending [facility]available [facility] Primary Care Unavailable ABHYANKAR, JAYA Referring Unavailable [facility], [facility] Primary Care Unavailable ABHYANKAR, JAYA Attending Unavailable ABHYANKAR, JAYA Referring Unavailable [facility], [facility] Primary Care Unavailable ABHYANKAR, JAYA Referring Unavailable ABHYANKAR, JAYA Attending [facility]available [facility] Primary Care Unavailable ABHYANKAR, JAYA Referring Unavailable [facility], [facility] Primary Care Unavailable ABHYANKAR, JAYA Referring Unavailable ABHYANKAR, JAYA Attending [facility]available [facility] Primary Care Unavailable ABHYANKAR, JAYA Referring Unavailable [facility], [facility] Primary Care Unavailable JAYA BAI Referring Unavailable [facility] Primary Care Unavailable JAYA BAI Referring Unavailable JAYA BAI Attending Unavailable IVETTE ETIENNEIKH Primary Care Unavailable JAYA BAI Referring Unavailable SYDNIE AMBROSIO Attending Unavailable SYDNIE AMBROSIO Attending Unavailable Medications Current Medications Medication Drug Class(es) Dates Sig (Normalized) Sig (Original) [id number] 200 actuat albuterol 0.09 mg/actuat metered dose inhaler (20 sources) beta2-Adrenergic Agonist Start: 01-24-2025 End: 02-23-2025 take 2 puff(s) by inhalation every six hours for wheezing albuterol HFA 90 mcg/act inhaler Indications: Shortness of breath Inhale 2 puffs every 6 (six) hours if needed for wheezing 18 g 1 01/24/2025 Active Start: 12-12-2024 albuterol (2.5 MG/3ML) 0.083% nebulizer solution Indications: Chronic obstructive pulmonary disease, unspecified (HCC) Take 3 mL (2.5 mg) by nebulization every 4 (four) hours if needed for wheezing 270 mL 3 12/12/2024 Active Start: 01-08-2024 take 2 puff(s) by mo uth every four to six hours as needed for wheezing albuterol HFA 90 mcg/act inhaler Indications: Shortness of breath inhale 2 (TWO) puffs BY MOUTH every 4-6 hour as needed for SHORTNESS OF BREATH / FOR WHEEZING 18 g 3 01/08/2024 Active Start: 09-05-2023 take 2 puff(s) by in halation every four hours for wheezing Ventolin HFA 108 (90 Base) MCG/ACT inhaler Inhale 2 puffs every 4 (four) hours if needed for shortness of breath or wheezing 0 09/05/2023 Active Start: 04-18-2022 End: 09-16-2024 albuterol (2.5 MG/3ML) 0.083 % nebulizer solution Indications: Chronic obstructive pulmonary disease, unspecified (CMS/HCC) TAKE 3ml BY MOUTH via NEBULIZER EVERY 4 HOURS NEEDED FOR WHEEZING 270 mL 3 09/16/2024 Active Start: 04-18-2022 Albuterol Sulf ate 90 mcg/actuation HFA aerosol inhaler Active 2 INH INHALATION Q4H as needed for Shortness Of Breath April 17, 2022 11:00pm Start: 04-18-2022 take 2.5 mg by inhal [...] every 6 (six) hours as needed. 10/29/2021 Active take 2 puff(s) by mo uth every four to six hours as needed for wheezing albuterol HFA (PROVENTIL HFA, VENTOLIN HFA) 90 mcg/actuation inhaler albuterol sulfate HFA 90 mcg/actuation aerosol inhaler INHALE 2 PUFFS BY MOUTH EVERY 4 TO 6 HOURS NEEDED for shortness of breath and FOR WHEEZING Active take 2 puff(s) by in halation every four hours as needed albuterol (PROVENTIL HFA;VENTOLIN HFA) 90 mcg/actuation inhaler Inhale 2 puffs every 4 (four) hours as needed. Active Albuterol Sulfat e 2.5 MG/0.5ML as [...] (20 sources) Dihydropyridine Calcium Channel Dia Start: 04-10-20 25 take 1 tablet by mouth once daily amLODIPine (Norvasc) 10 MG tablet Indications: Essential (primary) hypertension Take 1 tablet (10 mg) by mouth Daily 90 tablet 1 12/12/2024 Active Start: 04-18-2022 End: 06-05-2024 take 1 tablet by mouth once daily amLODIPine (Norvasc) 10 MG tablet Indications: Essential (primary) hypertension (CMS/HCC) Take 1 tablet (10 mg) by mouth Daily 90 tablet 1 06/05/2024 Active Start: 04-18-2022 take 10 mg by mouth once daily Amlodipine Active 10 MG PO Daily April 18, 2022 12:00am Start: 08-12-2021 take 1 tablet by lindsey th once daily amLODIPine (NORVASC) 10 mg tablet Take 10 mg by mouth once daily. 08/12/2021 Active Comment on above: Take 10 mg by mouth once daily. Aspir-81 (1 source) Aspir-81 Active aspirin 81 mg delayed release oral tablet (20 sources) Platelet Aggregation Inhibitor, Nonsteroidal Anti-inflammatory Drug Start: 04-22-2021 take 1 tablet by mouth once daily Aspirin 81 mg Tablet,Delayed Release (Dr/Ec) Active 81 MG PO Daily April 21, 2021 11:00pm aspirin, enteric coated (ASPIRIN, ENTERIC COATED) 81 mg EC tablet q 24 HR. Active Comment on above: q 24 HR. 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 Take 1 tablet (40 mg) by mouth at bedtime TAKE 1 TABLET BY MOUTH AT BEDTIME 90 tablet 1 02/10/2025 05/11/2025 Active Start: 04-18-2022 take 40 mg by mouth once daily Atorvastatin Active 40 MG PO Daily April 18, 2022 12:00am take 1 tablet by lindsey th at bedtime atorvastatin (LIPITOR) 40 mg tablet atorvastatin 40 mg tablet TAKE 1 TABLET BY MOUTH AT BEDTIME Active Comment on above: atorvastatin 40 mg t ablet TAKE 1 TABLET BY MOUTH AT BEDTIME bismuth subsalicylate 262 mg chewable tablet (1 source) Bismuth Start: 06-05-20 23 Bismuth 262 MG 2 tablets FOUR TIMES A DAY Orally Four times a day for 14 days Jun, Active busPIRone hydrochloride 30 mg oral tablet (20 sources) Start: 09-11-19 End: 09-11-19 take 1 tablet by mouth in the morning busPIRone (Buspar) 30 MG tablet Indications: Depression, unspecified Take 1 tablet (30 mg) by mouth in the morning and 1 tablet (30 mg) before bedtime. 60 tablet 11 09/11/2024 09/11/2025 Active Start: 05-28-2021 take 2 tablets by mo uth twice daily busPIRone (BUSPAR) 15 mg tablet Take 30 mg by mouth two times a day. 05/28/2021 Active Start: 04-22-2021 End: 09-11-2024 take 1 tablet by mouth three times daily Buspirone 15 mg tablet Active 15 MG PO Three times daily April 21, 2021 11:00pm take 1 tablet by lindsey th every twelve hours busPIRone HCl 15 MG 1 tablet Orally Twice a day Active Comment on above: Take 15 mg by mouth three times daily. 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 90 tablet 1 01/13/2025 04/13/2025 Active Comment on above: clopidogrel 75 mg ta blet TAKE 1 TABLET BY MOUTH ONCE DAILY Take 1 tablet by lindsey th once daily for 15 days. enteric contrast (will be provided with radiology test) (20 sources) Start: enteric contrast (will be provided with radiology test) Indications: Malignant neoplasm of upper lobe of right lung (HCC) , Non-caseating granuloma , Abnormal finding on GI tract imaging , Anemia, unspecified type For CT CHESTABD/PEL W IVCON Routine order Administer, As Directed One Time Only, via Oral, Rectal, both Oral and Rectal, Enteric Tube, Stoma or Indwelling Catheter, Enteric Contrast as designated per enteric contrast guidelines 1 Each 11/07/2024 Active Start: 09-12-[address] (will be provided with radiology test) Indications: Malignant neoplasm of upper lobe of right lung (HCC) For CT CHESTABD/PEL W IVCON Routine order Administer, As Directed One Time Only, via Oral, Rectal, both Oral and Rectal, Enteric Tube, Stoma or Indwelling Catheter, Enteric Contrast as designated per enteric contrast guidelines 1 Each 09/12/2024 Active Start: 04-18-[address] (will be provided with radiology test) Indications: Malignant neoplasm of unspecified part of unspecified bronchus or lung (HCC) , Abnormal finding on GI tract imaging For CT CHESTABD/PEL W IVCON Routine order Administer, As Directed One Time Only, via Oral, Rectal, both Oral and Rectal, Enteric Tube, Stoma or Indwelling Catheter, Enteric Contrast as designated per enteric contrast guidelines 1 Each 04/18/2024 Active Start: 04-18-[address] (will be provided with radiology test) Indications: Malignant neoplasm of unspecified part of unspecified bronchus or lung (HCC) , Abnormal finding on GI tract imaging For CT CHESTABD/PEL W IVCON Routine order Administer, As Directed One Time Only, via Oral, Rectal, both Oral and Rectal, Enteric Tube, Stoma or Indwelling Catheter, Enteric Contrast as designated per enteric contrast guidelines 1 Each 0 04/18/2024 Active Start: 11-17-[address] (will be provided with radiology test) Indications: Malignant neoplasm of upper lobe of right lung (HCC) For CT CHESTABD/PEL W IVCON Routine order Administer, As Directed One Time Only, via Oral, Rectal, both Oral and Rectal, Enteric Tube, Stoma or Indwelling Catheter, Enteric Contrast as designated per enteric contrast guidelines 1 Each 11/17/2023 Active Start: 11-17-[address] (will be provided with radiology test) Indications: [...] above: For CT CHESTABD/PEL W IVCON Routine orde r Administer, As Directed One Time Only, via Oral, Rectal, both Oral and Rectal, Enteric Tube, Stoma or Indwelling Catheter, Enteric Contrast as designated per enteric contrast guidelines Fluticasone-Umec lidin-Vilant (Trelegy Ellipta) 200-62.5-25 MCG/ACT aerosol powder (20 sources) Start: take 1 puff(s) by inhalation in the morning Fluticasone-Umeclidi n-Vilant (Trelegy Ellipta) 200-62.5-25 MCG/ACT aerosol powder Indications: Chronic obstructive pulmonary disease, unspecified (HCC) Inhale 1 puff in the morning. 3 each 08/24/2023 Active Start: 08-24-2023 take 1 puff(s) by inhalation in the morning Qhvbctaugaw-Fxbpmgxyi-Golrvz (Trelegy Ellipta) 200-62.5-25 MCG/ACT aerosol powder Indications: Chronic obstructive pulmonary disease, unspecified Inhale 1 puff in the morning. 3 each 08/24/2023 Active Start: 08-24-2023 take 1 puff(s) by inhalation in the morning Kkysjlflwaq-Plueuypph-Xscybn (Trelegy Ellipta) 200-62.5-25 MCG/ACT aerosol powder Indications: Chronic obstructive pulmonary disease, unspecified (CMS/HCC) Inhale 1 puff in the morning. 3 each 08/24/2023 Active Start: 08-24-2023 End: 11-22-2023 take 1 puff(s) by inhalation in the morning Ztqflxqrlgk-Lkluxzjsw-Nxsdla (Trelegy Ellipta) 200-62.5-25 MCG/ACT aerosol powder Indications: Chronic obstructive pulmonary disease, unspecified (CMS/HCC) Inhale 1 puff in the morning. 3 each 0 08/24/2023 11/22/2023 Active Mjargaposze-Ivmvmntis-Epsnzm er (3 sources) Start: 11-15-2023 take 1 puff(s) by inhalation once daily Bllkrjeggyv-Nwwqizwds-Wpjxuxpf (Trelegy Ellipta) 200-62.5-25 mcg blister with device Active 1 INH INHALATION Daily November 14, 2023 11:00pm FreeTextSi puff Inhalation Once a day; Note: Source Status: Taking; Provider: Della Vo ( ) Start: 05-30-2023 End: 11-15-2023 Bjrhonshdbj-Mptwtjpuw-Bhbsve er (Trelegy Ellipta) 200-62.5-25 mcg blister with device Discontinued 1 INH INHALATION Daily May 29, 2023 11:00pm November 15, 2023 12:11pm Start: 05-30-2023 Fluticasone-Um eclidin-Vilanter (Trelegy Ellipta) 200-62.5-25 mcg blister with device Active 1 INH INHALATION Daily May 30, 2023 12:00am zzfywtdcsia-afjcqzclu-elvdtd er (TRELEGY ELLIPTA) 200-62.5-25 mcg blister with device (3 sources) Start: 08-17-2023 End: 09-13-2024 take 1 puff(s) by inhalation once daily zxsebjttofs-emelzmdin-aveaqiqm (TRELEGY ELLIPTA) 200-62.5-25 mcg blister with device Indications: Chronic obstructive pulmonary disease, unspecified COPD type (CMS-HCC) Inhale 1 puff once daily. 60 each 08/17/2023 09/13/2024 Discontinued Start: 08-17-2023 take 1 puff(s) by inhalation once daily jtzmwkrydhf-acexqylmv-nnljaaxb (TRELEGY ELLIPTA) 200-62.5-25 mcg blister with device Indications: Chronic obstructive pulmonary disease, unspecified COPD type (CMS-HCC) Inhale 1 puff once daily. 60 each 08/17/2023 Active etkghlvjexm-capzftore-slnwib er (TRELEGY ELLIPTA) 200-62.5-25 mcg blister with device (3 sources) Start: 09-13-2024 take 1 puff(s) by mouth once daily gzrtveuwdbu-cmpotpzkp-kanxlsck (TRELEGY ELLIPTA) 200-62.5-25 mcg blister with device Indications: Chronic obstructive pulmonary disease, unspecified COPD type (CMS-HCC) INHALE 1 PUFF BY MOUTH DAILY 60 each 11 09/13/2024 Active folic acid 0.4 mg / vitamin b12 1 mg sublingual tablet (7 sources) Sarah min B12 Start: 02-06-2025 End: 08-05-2025 take 100-5000 ug under the tongue in the morning Cobalamin Combinations (B-12) 100-[address] 1 tablet under the tongue in the morning. 02/06/2025 08/05/2025 Active furosemide 40 mg oral tablet (20 sources) Loop Diur etic Start: 04-22-2021 End: 08-06-2024 take 1 tablet by mouth once daily furosemide (Lasix) 40 MG tablet Indications: Heart failure, unspecified (HCC) Take 1 tablet (40 mg) by mouth Daily 90 tablet 2 08/06/2024 Active Comment on above: furosemide 40 mg tab let TAKE 1 TABLET BY MOUTH DAILY iv contrast (will be provide d with radiology test) (20 sources) Start: 02-06-2025 End: 02-07-2025 iv contrast (will be provide d with [...] theCT contrast administration guidelines link. 1 each 02/06/2025 02/07/2025 Active Start: 11-07-2024 iv contrast (w ill be provided with radiology test) Indications: Malignant neoplasm of upper lobe of right lung (HCC) , Non-caseating granuloma , Abnormal finding on GI tract imaging , Anemia, unspecified type CT Chest ABD/PEL-Inject, intravenously, once [...] CT contrast administration guidelines link. 1 Each 11/07/2024 Active Start: 09-12-2024 iv contrast (w ill be provided with radiology test) Indications: Malignant [...] CT contrast administration guidelines link. 1 Each 09/12/2024 Active Start: 07-24-2024 End: 07-25-2024 iv contrast (will be provide d with radiology test) Indications: Malignant neoplasm of unspecified part of unspecified bronchus or lung (HCC) , Abnormal finding on GI tract imaging , Lung nodules , Non-caseating granuloma CT Chest W -Inject, intravenously, once for [...] CT contrast administration guidelines link. 1 Each 07/24/2024 07/25/2024 Active Start: 04-18-2024 End: 09-12-2024 iv contrast (will be provide d with radiology test) Indications: Malignant neoplasm of unspecified part of unspecified bronchus or lung (HCC) , Abnormal finding on GI tract imaging CT Chest ABD/PEL-Inject, intravenously, once for 1 [...] CT contrast administration guidelines link. 1 Each 04/18/2024 09/12/2024 Discontinued (Discontinued by Patient) Start: 04-18-2024 iv contrast (w ill be provided with radiology test) Indications: Malignant neoplasm of unspecified part of unspecified bronchus or lung (HCC) , Abnormal finding on GI tract imaging CT Chest ABD/PEL-Inject, intravenously, once for 1 [...] CT contrast administration guidelines link. 1 Each 04/18/2024 Active Start: 04-18-2024 iv contrast (w ill be provided with radiology test) Indications: Malignant neoplasm of unspecified part of unspecified bronchus or lung (HCC) , Abnormal finding on GI tract imaging CT Chest ABD/PEL-Inject, intravenously, once for 1 [...] contrast administration guidelines link. 1 Each 0 04/18/2024 Active Start: 03-01-2024 End: 03-02-2024 iv contrast (will be provide d with [...] contrast administration guidelines link. 1 Each 0 03/01/2024 03/02/2024 Active Start: 11-17-2023 End: 09-12-2024 iv contrast (will be provide d with [...] CT contrast administration guidelines link. 1 Each 11/17/2023 09/12/2024 Discontinued (Discontinued by Patient) Start: 11-17-2023 iv contrast (w ill be provided with radiology test) Indications: Malignant [...] CT contrast administration guidelines link. 1 Each 11/17/2023 Active Start: 11-17-2023 iv contrast (w ill be provided with radiology test) Indications: Malignant [...] in the CT contrast administration guidelines link. linaclotide 0.29 mg oral capsule (20 sources) Guanylate Cyclase-C Agonist Start: take 1 capsule by mouth once daily Linzess 290 MCG capsule Take 290 mcg by mouth Daily 12/12/2024 Active Start: 05-17-2024 End: 12-26-2024 take 1 capsule by mouth before mealtime linaCLOtide (Linzess) 145 MCG capsule Indications: Chronic idiopathic constipation Take 1 capsule (145 mcg) by mouth in the morning. Take before meals. Do not crush or chew.. 30 capsule 2 05/17/2024 12/26/2024 Discontinued (Ineffective) Start: 10-27-2023 End: 10-16-2024 take 1 capsule by mouth once daily Linzess 290 MCG capsule Take 290 mcg by mouth Daily 12/12/2024 Active Start: 10-02-2023 End: 05-15-2024 take 1 capsule by mouth before mealtime linaCLOtide (Linzess) 145 MCG capsule Indications: Chronic idiopathic constipation TAKE 1 CAPSULE BY MOUTH IN THE MORNING BEFORE MEALS * DO NOT CRUSH OR CHEW * 30 capsule 2 02/19/2024 05/15/2024 Discontinued (Reorder) Comment on above: TAKE 1 CAPSULE BY MO UTH IN THE MORNING BEFORE MEALS DO NOT CRUSH OR CHEW 24 hr metoprolol succinate 100 mg extended release oral tablet (20 sources) beta-Adrenergic Dia Start: 08-23-2023 take 1 tablet by mouth every twenty-four hours in the morning metoprolol succinate XL (Toprol-XL) 100 MG 24 hr tablet Take 1 tablet by mouth in the morning. 08/23/2023 Active Start: 04-22-2021 take 1 tablet by lindsey th once daily Metoprolol Succinate 100 mg tablet extended release 24 hr Active 100 MG PO Daily April 21, 2021 11:00pm take 1 tablet by lindsey th every twenty-four hours in the evening metoprolol succinate XL (TOPROL XL) 50 mg 24 hr tablet Take 1 tablet (50 mg total) by mouth in the evening. Active take 1 capsule by mo uth [...] Take 100 mg by mouth once daily. Nebulizer and Compressor For Neb (20 sources) Start: 10-29-2021 Nebulizer and Compressor For Neb Indications: Cancer of trachea, bronchus, and lung (HCC) , Panlobular emphysema (HCC) 1 Each three times daily as needed. 1 Each 10/29/2021 Active Start: 10-29-2021 Nebulizer and Compressor For Neb Indications: Cancer of trachea, bronchus, and lung (HCC) , Panlobular emphysema (HCC) 1 Each three times daily as needed. 1 Each 0 10/29/2021 Active Comment on above: 1 Each three times d aily as needed. nitroglycerin 0.4 mg sublingual tablet (20 sources) Nitrate Vasodilator Start: 04-18-2022 nitroglycerin (Nitrostat) 0.[address] 0.4 mg under the tongue every 5 (five) minutes if needed for chest pain (DISSOLVE 1 (ONE) TABLET UNDER THE TONGUE EVERY 15 MINUTES NEEDED; max 3 (THREE) doses in 24 HOURS) 12/22/2022 Active Start: 04-18-2022 Nitroglycerin Active 0.4 MG SUBLINGUAL EVERY 5 MINUTES April 18, 2022 12:00am nitroglycerin whelan blingual (NITROQUICK) 0.4 mg SL tablet nitroglycerin 0.4 mg sublingual tablet DISSOLVE 1 TABLET UNDER THE TONGUE NEEDED FOR CHEST PAIN- MAY REPEAT EVERY 5 MINUTES IF NEEDED ( MAX 3 DOSES.- IF NO RELIEF CALL 911) Active Comment on above: nitroglycerin 0.4 mg sublingual tablet DISSOLVE 1 TABLET UNDER THE TONGUE NEEDED FOR CHEST PAIN- MAY REPEAT EVERY 5 MINUTES IF NEEDED ( MAX 3 DOSES.- IF NO RELIEF CALL 911) polyethylene glycol 3350 69406 mg powder for oral solution (2 sources) Osmotic Laxative Start: 024 End: Polyethylene Glycol 3350 (Miralax) 17 gram/dose powder Active 17 GM PO .prn October 16, 2024 1:43pm microencapsulated potassium chloride 10 meq extended release oral tablet (20 sources) Start: 025 End: take 1 tablet by mouth once daily potassium chloride CR (Klor-Con M10) 10 MEQ ER tablet Indications: Hypokalemia Take 1 tablet (10 mEq) by mouth Daily 90 tablet 1 03/09/2025 06/07/2025 Active Start: 04-18-2022 End: 09-16-2024 take 1 tablet by mouth once daily potassium chloride CR (Klor-Con M10) 10 MEQ ER tablet Indications: Hypokalemia TAKE 1 TABLET BY MOUTH DAILY 30 tablet 2 09/16/2024 Active Start: 04-18-2022 take 10 mEq by mouth once bruna y Potassium Chloride Active 10 MEQ PO Daily April 18, 2022 12:00am Start: 10-25-2021 potassium chlo ride ER (K-DUR, KLOR-CON) 20 mEq tablet Take 10 mEq by mouth once daily. 10/25/2021 Active Start: 10-25-2021 take 1 tablet by lindsey th in the morning potassium chloride (KLOR-CON M 20) 20 MEQ CR tablet Take 1 tablet (20 mEq total) by mouth in the morning. 10/25/2021 Active Potassium Chlori de Active Comment on above: Take 20 mEq by mouth once daily. Take 10 mEq by mouth once daily. sacubitril 97 mg / valsartan 103 mg oral tablet (20 sources) Angiotensin 2 Receptor Dia Start: 11-15-2023 take 1 tablet by mouth twice daily Sacubitril-Valsa rtan (Entresto) 97-103 mg tablet Active 1 TAB PO Twice daily November 14, 2023 11:00pm Start: 08-23-2023 take 1 tablet by lindsey th in the morning Entresto 97-103 MG tablet Take 1 tablet by mouth in the morning and 1 tablet before bedtime. 08/23/2023 Active Start: 04-22-2021 take 1 tablet by lindsey th once daily Sacubitril-Valsartan (Entresto) 97-103 mg tablet Active 1 TAB PO Daily April 21, 2021 11:00pm Comment on above: Entresto 97 mg-103 m g tablet TAKE 1 TABLET BY MOUTH TWICE DAILY sertraline 100 mg oral tablet (20 sources) Serotonin Reuptake Inhibitor Start: 02-12-2025 End: 05-07-2025 take 1 tablet by mouth once daily sertraline (Zoloft) 100 MG tablet Indications: Mild episode of recurrent major depressive disorder Take 1 tablet (100 mg) by mouth Daily 30 tablet 1 04/07/2025 05/07/2025 Active Start: 01-03-2025 End: 03-12-2025 take 1 tablet by mouth once daily sertraline (Zoloft) 50 MG tablet Indications: Mild episode of recurrent major depressive disorder (HCC) (CMS/HCC) Take 1 tablet (50 mg) by mouth Daily 30 tablet 1 02/10/2025 02/12/2025 Discontinued (Reorder) sildenafil 50 mg oral tablet (20 sources) Phosphodiesterase 5 Inhibitor Start: 11-20-2023 End: 01-25-2025 sildenafil (Viagra) 50 MG tablet Indications: Male erectile dysfunction, unspecified Take 1 tablet (50 mg) by mouth if needed for erectile dysfunction 30 tablet 2 12/26/2024 Active Start: 09-28-2023 sildenafil (Vi agra) 50 MG tablet Indications: Male erectile dysfunction, unspecified TAKE 1 TABLET BY MOUTH 1 HOUR BEFORE SEXUAL ACTIVITY NEEDED. 30 tablet 0 09/28/2023 Active Start: 04-18-2022 take 1 tablet by lindsey once daily Sildenafil 25 mg tablet Active 25 MG PO Daily April 17, 2022 11:00pm Start: 04-18-2022 take 25 mg by mouth once daily Sildenafil Active 25 MG PO Daily April 18, 2022 12:00am End: 10-11-2024 sildenafil (VIAGRA) 25 mg ta blet sildenafil 25 mg tablet TAKE 1 TABLET BY MOUTH 30 MINUTES BEFORE sexual activity Active Comment on above: sildenafil 25 mg tab let TAKE 1 TABLET BY MOUTH 30 MINUTES BEFORE sexual activity spironolactone 25 mg oral tablet (20 sources) Aldosterone Antagonist Start: 09-11-19 take 0.5 tablet by mouth in the morning spironolactone (Aldactone) 25 MG tablet Take 0.5 tablets (12.5 mg) by mouth in the morning. 09/11/2024 Active Start: 04-18-2022 End: 09-11-2024 spironolactone (ALDACTONE) 2 5 mg tablet 01/02/2023 Active Start: 04-18-2022 take 25 mg by mouth once daily Spironolactone Active 25 MG PO Daily April 18, 2022 12:00am Spironolactone 2 5 MG 1 tablet Orally Active tetracycline hydrochloride 500 mg oral capsule (1 source) Tetracycline-class Antimicrobial Start: 06-05-2023 Tetracycline HCl 500 MG 1 CAPSULE FOUR TIMES A DAY Orally 4 TIMES A DAY for 14 days Jun, Active TRELEGY ELLIPTA 200-62.5-25 mcg inhalation powder (20 sources) Start: 09-09-2022 take 1 puff(s) by mouth once daily TRELEGY ELLIPTA 200-62.5-25 mcg inhalation powder INHALE 1 PUFF BY MOUTH DAILY 09/09/2022 Active Start: 09-09-2022 take 1 puff(s) by mo [facility] once daily TRELEGY ELLIPTA 200-62.5-25 mcg inhalation powder INHALE 1 PUFF BY MOUTH DAILY 0 09/09/2022 Active Comment on above: INHALE 1 PUFF BY LINDSEY TH DAILY trelegy ellipta 200-62.5-25 mcg/act aerosol powder breath activated (1 source) take 1 puff(s) by inhalation once daily Trelegy Ellipta 200-62.5-25 MCG/ACT 1 puff Inhalation Once a day Active vitamin b12 5 mg sublingual tablet (2 sources) Vitamin B12 Start: End: Cyanocobalamin-Cobam amide (B-12 PLUS) 5,000-100 mcg subl Indications: Malignant neoplasm of upper lobe of right lung (HCC) , Non-caseating granuloma , Lung nodules , Tobacco use disorder , Megaloblastic anemia due to vitamin B12 deficiency Dissolve 1 tablet under the tongue once daily. 90 tablet 1 02/06/2025 08/05/2025 Active Completed/Discontinued Medications Medication Drug Class(es) Dates Sig (Normalized) Sig (Original) acetaminophen 325 mg / oxyCODONE hydrochloride 5 mg oral tablet (20 sources) Opioid Agonist Start: 03-29-2022 End: 11-20-2023 take 1 tablet by mouth every twelve hours as needed for pain oxyCODONE-acetamin ophen (PERCOCET) 5-325 mg tablet TAKE 1 TABLET BY MOUTH EVERY 12 HOURS NEEDED FOR PAIN 03/29/2022 11/20/2023 Discontinued Comment on above: TAKE 1 TABLET BY LINDSEY TH EVERY 12 HOURS NEEDED FOR PAIN amitriptyline hydrochloride 25 mg oral tablet (20 sources) Tricyclic Antidepressant Start: 04-17-2024 End: 06-03-2024 take 1 tablet by mouth at bedtime amitriptyline (Elavil) 25 MG tablet Indications: Insomnia, unspecified TAKE 1 TABLET BY MOUTH AT BEDTIME 90 tablet 04/17/2024 06/03/2024 Discontinued (Discontinued by another clinician) Start: 02-01-2024 take 1 tablet by lindsey th once daily at bedtime amitriptyline (ELAVIL) 50 mg tablet Take 50 mg by mouth daily at bedtime. 02/01/2024 Active Start: 09-21-2023 take 1 tablet by lindsey th once daily at bedtime amitriptyline (Elavil) 50 MG tablet Indications: Insomnia, unspecified TAKE 1 TABLET BY MOUTH EVERY DAY AT BEDTIME 30 tablet 0 09/21/2023 Active Start: 05-30-2023 End: 11-20-2023 take 1 tablet by mouth once daily at bedtime amitriptyline (ELAVIL) 25 mg tablet Take 25 mg by mouth daily at bedtime. 06/28/2023 11/20/2023 Discontinued Comment on above: Take 25 mg by mouth daily at bedtime. 120 actuat budesonide 0.16 mg/actuat / formoterol fumarate 0.0045 mg/actuat metered dose inhaler (20 sources) Corticosteroid, beta2-Adrenergic Agonist Start: 1 End: 3 take 1 puff(s) by inhalation twice daily Budesonide-Formoterol (Symbicort) 160-4.5 mcg/actuation HFA aerosol inhaler Discontinued 2 PUFF INHALATION Twice daily April 21, 2021 11:00pm May 30, 2023 11:44am End: 11-20-2023 take 2 puff(s) by mouth twice daily budesonide-formoterol (SYMBICORT) 160-4.5 mcg/actuation inhaler Symbicort 160 mcg-4.5 mcg/actuation HFA aerosol inhaler INHALE 2 PUFFS BY MOUTH TWICE DAILY 11/20/2023 Discontinued End: 11-20-2023 take 2 puff(s) by mouth [...] INHALE 2 PUFFS BY MOUTH TWICE DAILY levoFLOXacin 750 mg oral tablet (20 sources) Quinolone Antimicrobial Start: 10-25-19 End: 11-20-19 24 take 1 tablet by mouth once daily levoFLOXacin (LEVAQUIN) 750 mg tablet Take 750 mg by mouth once daily. 10/25/2021 11/20/2023 Discontinued Comment on above: Take 750 mg by mouth once daily. magnesium citrate 58.2 mg/ml oral solution (2 sources) Start: 08-11-20 End: 08-11-20 take 296 mL by mouth once magnesium citrate solution Take 296 mL by mouth one time only for 1 dose. 296 mL 0 08/11/2023 08/11/2023 Comment on above: Take 296 mL by mouth one time only for 1 dose. metroNIDAZOLE 250 mg oral tablet (7 sources) Nitroimidazole Antimicrobial Start: 06-05-20 End: 11-20-19 take 1 tablet by mouth four times daily metroNIDAZOLE (FLAGYL) 250 mg tablet Take 250 mg by mouth four times daily. 06/16/2023 11/20/2023 Discontinued Comment on above: Take 250 mg by mouth four times daily. omeprazole 40 mg delayed release oral capsule (20 sources) Proton Pump Inhibitor Start: 07-25-20 End: 10-10-19 omeprazole (PriLOSEC) 40 mg capsule Take 1 capsule (40 mg total) by mouth. 07/25/2023 10/10/2024 Discontinued (Therapy completed) Start: 05-30-2023 End: 11-15-2023 take 1 capsule by mouth once daily Omeprazole 40 mg capsule,delayed release(DR/EC) Discontinued 40 MG PO Daily May 29, 2023 11:00pm November 15, 2023 12:13pm Comment on above: TAKE 1 CAPSULE BY [facility] TWICE DAILY (30 MINUTES BEFORE morning meal & IN THE EVENING) penicillin v potassium 500 mg oral tablet (20 sources) Start: 2 End: 4 take 1 tablet by mouth four times daily penicillin V potassium (V-CILLIN, VEETIDS) 500 mg tablet Take 500 mg by mouth four times daily. 03/29/2022 11/20/2023 Discontinued Comment on above: Take 500 mg by mouth four times daily. plecanatide 3 mg oral tablet (18 sources) Start: 4 End: 5 take 1 tablet by mouth once daily Trulance tablet tablet Take 1 tablet by mouth Daily 05/16/2024 12/26/2024 Discontinued (Ineffective) Plecanatide (Trulance) 3 mg tablet (1 source) Start: 4 End: 4 take 1 tablet by mouth once daily Plecanatide (Trulance) 3 mg tablet Discontinued 3 MG PO Daily April 21, 2024 11:00pm May 22, 2024 1:17pm predniSONE 20 mg oral tablet (20 sources) Start: 2 End: 4 take 2 tablets by mouth once daily at mealtime predniSONE (DELTASONE) 20 mg tablet Take 40 mg by mouth daily with food. 10/25/2021 11/20/2023 Discontinued Comment on above: Take 40 mg by mouth daily with food. traZODone hydrochloride 100 mg oral tablet (20 sources) Serotonin Reuptake Inhibitor Start: 2 End: 3 take 1 tablet by mouth once daily traZODone (DESYREL) 100 mg tablet Take 100 mg by mouth once daily. 03/14/2022 03/03/2023 Discontinued Start: 04-22-2021 End: 11-15-2023 Trazodone 150 mg tablet Disc ontinued 100 MG PO Daily April 21, 2021 11:00pm November 15, 2023 12:13pm Start: 04-22-2021 take 100 mg by mouth once bruna y Trazodone Active 100 MG PO Daily April 22, 2021 12:00am Start: 01-18-2021 End: 03-31-2022 take 1 tablet by mouth once daily traZODone (DESYREL) 50 mg tablet Take 50 mg by mouth once daily. 01/18/2021 03/31/2022 Discontinued (Changing Therapy/Dosage Form) Comment on above: Take 50 mg by mouth once daily. Take 100 mg by mouth once daily. Take 1 tablet by lindsey th once daily for 15 days. Umeclidinium (3 sources) Anticholinergic Start: 04-18-20 End: 05-30-20 take 62.5 ug by inhalation once daily Umeclidinium (Incruse Ellipta) 62.5 mcg/actuation blister with device Discontinued 62.5 MCG INHALATION Daily April 17, 2022 11:00pm May 30, 2023 11:44am Start: 04-18-2022 End: 05-30-2023 take 62.5 ug [...] 12:00am zolpidem tartrate 10 mg oral tablet (19 sources) gamma-Aminobutyric Acid-ergic Agonist Start: 12-07-2022 End: 06-03-2024 take 1 tablet by mouth in the morning zolpidem (Ambien) 10 MG tablet Take 10 mg by mouth in the morning. 12/07/2022 06/03/2024 Discontinued (Discontinued by another clinician) Comment on above: Take 10 mg by mouth once daily. Problems Active Problems Problem Classification Problem Date Documented Da te Episodic/Chronic Abdominal pain (4 sources) Lower abdominal pain; Translations: [Lower abdominal pain, unspecified] Onset: 5 11-17-2023 Episodic Aortic; peripheral; and visceral artery aneurysms (20 sources) Thoracic aortic aneurysm without rupture; Translations: [Thoracic aortic aneurysm, without rupture] Onset: 0 Chronic Cancer of bronchus; lung (20 sources) Adenocarcinoma of right lung; Translations: [Malignant neoplasm of unspecified part of right bronchus or lung] Onset: 2 10-02-2023 Chronic Cancer; other respiratory and intrathoracic (20 sources) Malignant neoplasm of lower respiratory tract; 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] Onset: 2 Chronic Chronic obstructive pulmonary disease and bronchiectasis (20 sources) Chronic obstructive lung disease; Translations: [Chronic obstructive pulmonary disease, unspecified] Onset: 0 Resolved: 2 Chronic Conduction disorders (20 sources) First degree atrioventricular block; Translations: [Atrioventricular block, first degree] Onset: 4 10-02-2023 Chronic Congestive heart failure; nonhypertensive (20 sources) Chronic diastolic heart failure; Translations: [Chronic diastolic (congestive) heart failure] Onset: 0 Chronic Coronary atherosclerosis and other heart disease (20 sources) Coronary arteriosclerosis; Translations: [Atherosclerotic heart disease of [place] coronary artery without angina pectoris] Onset: 0 Chronic Coronary atherosclerosis and other heart disease (2 sources) Presence of aortocoronary bypass graft; Translations: [Presence of aortocoronary bypass graft] Onset: 2 Episodic Deficiency and other anemia (4 sources) Anemia; Translations: [Anemia, unspecified] 11-08-2024 Episodic Deficiency and other anemia (1 source) Megaloblastic anemia due to vitamin B>12< deficiency; Translations: [Other megaloblastic anemias, not elsewhere classified] 02-06-2025 Episodic Deficiency and other anemia (1 source) Nutritional anemia; Translations: [Other vitamin B12 deficiency anemias] 02-06-2025 Episodic Deficiency and other anemia (1 source) Other megaloblastic anemias, not elsewhere classified; Translations: [Megaloblastic anemia due to vitamin B12 deficiency] Onset: 5 Episodic Deficiency and other anemia (1 source) Other vitamin B12 deficiency anemias; Translations: [Other vitamin B12 deficiency anemia] Onset: 5 Episodic Deficiency and other anemia (1 source) Anemia, unspecified; Translations: [Anemia, unspecified type] Onset: 5 Episodic Disorders of lipid metabolism (20 sources) Hyperlipidemia; Translations: [Hyperlipidemia, unspecified] Onset: 2 Chronic Esophageal disorders (20 sources) Gastroesophageal reflux disease; Translations: [Gastro-esophageal reflux disease without esophagitis] Onset: 4 06-03-2024 Chronic Essential hypertension (20 sources) Hypertensive disorder; Translations: [Essential (primary) hypertension] Onset: 2 Chronic Fluid and electrolyte disorders (4 sources) Hypokalemia; Translations: [Hypokalemia] 06-05-2024 Episodic Heart valve disorders (20 sources) Aortic valve stenosis; Translations: [Nonrheumatic aortic (valve) stenosis] Onset: 0 Chronic Immunizations and screening for infectious disease (1 source) Positive measurement finding; Translations: [Nonspecific reaction to tuberculin skin test without active tuberculosis] Episodic Intestinal infection (1 source) Other specified bacterial intestinal infections Episodic Lymphadenitis (2 sources) Lymphadenopathy; Translations: [Enlarged lymph nodes, unspecified] 12-10-2021 Episodic Mood disorders (20 sources) Depressive disorder; Translations: [Depression, unspecified depression type] Onset: 2 Chronic Occlusion or stenosis of precerebral arteries (20 sources) Carotid artery stenosis; Translations: [Occlusion and stenosis of unspecified carotid artery] Onset: 0 Chronic Other aftercare (1 source) Patient encounter status; Translations: [Encounter for follow-up examination after completed treatment for conditions other than malignant neoplasm] 02-06-2025 Episodic Other aftercare (1 source) Encounter for follow-up examination after completed treatment for conditions other than malignant neoplasm; Translations: [Encounter for follow-up examination after completed treatment for conditions other than malignant neoplasm] Onset: 5 Episodic Other and ill-defined heart disease (20 sources) Left ventricular thrombus; Translations: [Intracardiac thrombosis, not elsewhere classified] Onset: 0 10-02-2023 Chronic Other and unspecified benign neoplasm (1 source) Personal history of colonic polyps; Translations: [Personal history of colonic polyps] 04-18-2022 Episodic Other gastrointestinal disorders (20 sources) Chronic idiopathic constipation; Translations: [Chronic idiopathic constipation] Onset: 4 10-02-2023 Chronic Other gastrointestinal disorders (1 source) Irritable bowel syndrome characterized by constipation; Translations: [Irritable bowel syndrome with constipation] 04-22-2024 Chronic Other gastrointestinal disorders (1 source) Irritable bowel syndrome; Translations: [Irritable bowel syndrome without diarrhea] 02-20-2024 Chronic Other gastrointestinal disorders (1 source) Irritable bowel syndrome with constipation; Translations: [Irritable bowel syndrome] 07-22-2024 Chronic Other gastrointestinal disorders (1 source) Abdominal mass; Translations: [Intra-abdominal and pelvic swelling, mass and lump, unspecified site] 12-10-2021 Episodic Other liver diseases (3 sources) Liver mass; Translations: [Hepatomegaly, not elsewhere classified] Episodic Other male genital disorders (4 sources) Male erectile dysfunction, unspecified; Translations: [Impotence of organic origin] 09-27-2024 Chronic Other skin disorders (9 sources) Mass of body structure; Translations: [Granulomatous disorder of the skin and subcutaneous tissue, unspecified] Episodic Residual codes; unclassified (2 sources) Other specified postprocedural states; Translations: [Other specified postprocedural states] Onset: 5 Episodic Substance-related disorders (20 sources) Smoker; Translations: [Nicotine dependence, unspecified, uncomplicated] Onset: 2 Resolved: 5 Chronic Unclassified (1 source) THORAC AORTC ANEURYSM W/O RUPTR UNS; Translations: [THORAC AORTC ANEURYSM W/O RUPTR UNS] Onset: 3 Unclassified (1 source) Aneurysm of the ascending aorta, without rupture; Translations: [Aneurysm of the ascending aorta, without rupture] Onset: 2 Past or Other Problems Problem Classification Problem Date Documented Da te Episodic/Chronic Mood disorders (20 sources) Mood disorders Onset: 4 Resolved: 5 10-02-2023 Other and unspecified benign neoplasm (20 sources) History of polyp of colon; Translations: [Personal history of colonic polyps] Onset: 4 04-18-2022 Episodic Comment on above: Problem List clean-u p per request of Phys. EHR Cmte Other connective tissue disease (20 sources) Pain in left lower limb; Translations: [Pain in left leg] Onset: 4 01-01-2024 Episodic Other gastrointestinal disorders (20 sources) Stool DNA-based colorectal cancer screening positive; Translations: [Other fecal abnormalities] Onset: 4 04-22-2021 Episodic Comment on above: Problem List clean-u p per request of Phys. EHR Cmte Other gastrointestinal disorders (20 sources) Constipation; Translations: [Constipation, unspecified] Onset: 4 Resolved: 5 06-03-2024 Episodic Other injuries and conditions due to external causes (20 sources) Injury of head; Translations: [Unspecified injury of head, initial encounter] Onset: 4 02-26-2024 Episodic Other lower respiratory disease (20 sources) Lung mass; Translations: [Other nonspecific abnormal finding of lung field] Onset: 0 Resolved: 5 Episodic Other lower respiratory disease (20 sources) Multiple nodules of lung; Translations: [Other nonspecific abnormal finding of lung field] Onset: 2 Resolved: 5 Episodic Other lower respiratory disease (20 sources) Dyspnea on exertion; Translations: [Other forms of dyspnea] Onset: 2 10-02-2023 Episodic Other lower respiratory disease (2 sources) Other nonspecific abnormal finding of lung field; Translations: [Other nonspecific abnormal finding of lung field] Onset: 2 Episodic Other screening for suspected conditions (not mental disorders or infectious disease) (12 sources) Imaging of gastrointestinal tract abnormal; Translations: [Abnormal findings on diagnostic imaging of other parts of digestive tract] Onset: 3 05-05-2023 Episodic Other skin disorders (1 source) Granulomatous disorder of the skin and subcutaneous tissue, unspecified; Translations: [Non-caseating granuloma] Onset: 5 Episodic Residual codes; unclassified (20 sources) Insomnia; Translations: [Insomnia, unspecified] Onset: 0 10-02-2023 Episodic Unclassified (1 source) Aneurysm of the ascending aorta, without rupture; Translations: [Aneurysm of the ascending aorta, without rupture] Onset: 5 Results Test Name Value Interpretation Reference Range Facility NM [facility] 04[facility]11[facility]2025 [place] [address] Nuclear Medicine Report Signed Patient: ALESSIO BURNS MR#: [id number] : 1950 Acct:[id number] Age/Sex: 75 / M ADM Date: 04/07/25 Loc: NM Attending Dr: SYDNIE AMBROSIO Ordering Physician: SYDNIE AMBROSIO Date of Service: 04/07/25 Procedure(s): NM deloris perf SPECT rest str Accession Number(s): [id number] cc: Anayeli Heaton NP; SYDNIE AMBROSIO Patient Name: ALESSIO BURNS MR#: [id number] : 1950 Exam Date: 04/07/2025 Ordering Doctor: DR SYDNIE AMBROSIO M.D. RADIOLOGY REPORT PROCEDURE: NM DELORIS PERF SPECT REST STR COMPARISON: None. INDICATIONS: CORONARY ARTERY DISEASE, CHEST PAIN TECHNIQUE: Exam Description: Rest/Stress one day protocol gated SPECT Rest Imagin.6 mCi Tc-99m Cardiolite IV on 04/07/2025 Stress Imaging 30.9 mCi Tc-99m Cardiolite IV on 04/07/2025 Exercise Protocol: 0.4 mg Lexiscan given IV Heart Rate (bpm): Rest: 57 Max: 68 PMHR: 46 Blood Pressure: Rest: 145/69 Max: 145/69 Symptoms: Rest and peak stress ECG findings were pending and the EKG portion of the study was pending per attending physician [facility] . For more details please see separate cardiac stress test report. FINDINGS: QUALITY OF STUDY: Good 1.PERFUSION DEFECT: LOCATION: Inferior SIZE: Medium SEVERITY: Mild TYPE: Fixed with normal contractility and thickening consistent with soft tissue attenuation WALL MOTION: Normal 2.PERFUSION DEFECT: LOCATION: Apical SIZE: Small SEVERITY: Severe TYPE: Fixed WALL MOTION: Hypokinetic LV SIZE: 101 mL. TID / TCD: 0.8 LVEF: Calculated EF 60%. SUMMARY: Abnormal myocardial perfusion imaging study CONCLUSION: Abnormal myocardial perfusion nuclear stress test showing evidence of prior apical infarct/scar, no evidence of ischemia. Diaphragmatic attenuation also was noted Normal left ventricular systolic function with hypokinetic apex, ejection fraction 60% No transient ischemic dilatation, TID 0.8 EKG portion of stress test is reported separately Dictated by: Mitch Griffin MD on 04/11/2025 at 18:00 Approved by: Mitch Griffin MD on 04/11/2025 at 18:05 Dictated By: Mitch Griffin M.D. Signed By: 04/11/251805 DD/ 04 TD/TT: Manager Corporate: [facility] Radiology, Radiologist, - 04/11/2025 [place] [address] Nuclear Medicine Report Signed Patient: ALESSIO BURNS MR#: [id number] : 1950 Acct:[id number] Age/Sex: 75 / M ADM Date: 04/07/25 Loc: [facility] Attending Dr: SYDNIE AMBROSIO Ordering Physician: SYDNIE AMBROSIO Date of Service: 04/07/25 Procedure(s): NM deloris perf SPECT rest str Accession Number(s): [id number] cc: Anayeli Heaton NP; SYDNIE AMBROSIO Patient Name: ALESSIO BURNS MR#: [id number] : 1950 Exam Date: 04/07/2025 Ordering Doctor: DR SYDNIE AMBROSIO M.D. RADIOLOGY REPORT PROCEDURE: NM DELORIS PERF SPECT REST STR COMPARISON: None. INDICATIONS: CORONARY ARTERY DISEASE, CHEST PAIN TECHNIQUE: Exam Description: Rest/Stress one day protocol gated SPECT Rest Imagin.6 mCi Tc-99m Cardiolite IV on 04/07/2025 Stress Imaging 30.9 mCi Tc-99m Cardiolite IV on 04/07/2025 Exercise Protocol: 0.4 mg Lexiscan given IV Heart Rate (bpm): Rest: 57 Max: 68 PMHR: 46 Blood Pressure: Rest: 145/69 Max: 145/69 Symptoms: Rest and peak stress ECG findings were pending and the EKG portion of the study was pending per attending physician [facility] . For more details please see separate cardiac stress test report. FINDINGS: QUALITY OF STUDY: Good 1.PERFUSION DEFECT: LOCATION: Inferior SIZE: Medium SEVERITY: Mild TYPE: Fixed with normal contractility and thickening consistent with soft tissue attenuation WALL MOTION: Normal 2.PERFUSION DEFECT: LOCATION: Apical SIZE: Small SEVERITY: Severe TYPE: Fixed WALL MOTION: Hypokinetic LV SIZE: 101 mL. TID / TCD: 0.8 LVEF: Calculated EF 60%. SUMMARY: Abnormal myocardial perfusion imaging study CONCLUSION: Abnormal myocardial perfusion nuclear stress test showing evidence of prior apical infarct/scar, no evidence of ischemia. Diaphragmatic attenuation also was noted Normal left ventricular systolic function with hypokinetic apex, ejection fraction 60% No transient ischemic dilatation, TID 0.8 EKG portion of stress test is reported separately Dictated by: Mitch Griffin MD on 04/11/2025 at 18:00 Approved by: Mitch Griffin MD on 04/11/2025 at 18:05 Dictated By: Mitch Griffin M.D. Signed By: 04/11/251805 DD/ 04 TD/TT: Manager Corporate: [facility] Radiology Study observation (narrative) [facility] DELORIS PERF SPECT REST STROr dered By: Radiologist Radiology on 04-11-2025 [facility] Work Phone: Office Visiton 03-31-2025 Follow-up visit [id number] Alessio Burns 1950 M Date Provider Department Center 03/31/2025 [facility] Family History Problem Relation Age of Onset Diabetes Mother Heart disease Mother Heart disease Father Coronary artery disease Sister Family Status - Relation Status Age at Mother Father Sister Level of Service:89626 [facility] OFFICE/OUTPATIENT ESTABLISHED MOD MDM 30 MIN Normal [facility] CNPNon 03-27-2025 CNPN Telephone (HEMTSA) ALESSIO BURNS ([id number]) 1950 M Date Time Provider Department 03/27/25 JAYA BAI HEMANGELINA During your visit today, we recorded the following information about you: Chloe Ivey RN 03/27/2025 1:45 PM Signed Please sign pended labs for 3 month f/u if agreeable Thank You! Chloe Ivey RN Allergies As of Date: 03/27/2025 (No Known Allergies) Date Reviewed: 02/06/2025 Reviewed by: Jane Gilmore MA - Fully Assessed Reason for Visit: Orders [681] Primary Visit Diagnosis:Cancer of trachea, bronchus, 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, C34.80] Order(s):COMPREHENSIVE METABOLIC PANEL [SQCMP] Order #: [id number] FUTURE COMPLETE BLOOD COUNT AND DIFFERENTIAL [SQCBCDIF] Order #: [id number] FUTURE FERRITIN [SQFERR] Order #: [id number] FUTURE IRON AND TIBC [SQIRON] Order #: [id number] FUTURE FOLATE, SERUM [SQSERFOL] Order #: [id number] FUTURE VITAMIN B12 [SQB12] Order #: [id number] FUTURE Prescriptions as of 03/27/2025 - sertraline (ZOLOFT) 50 mg tablet Take 50 mg by mouth once daily. - Cyanocobalamin-Cobamam yeny (B-12 PLUS) 5,000-100 mcg subl Dissolve 1 tablet under the tongue once daily. - iv contrast (will be provided [...] as designated per enteric contrast guidelines - iv contrast (will be provided with [...] as designated per enteric contrast guidelines - enteric contrast (will be provided with radiology test) For CT CHESTABD/PEL W IVCON Routine order Administer, As Directed One Time Only, via Oral, Rectal, both Oral and Rectal, Enteric Tube, Stoma or Indwelling Catheter, Enteric Contrast as designated per enteric contrast guidelines - amitriptyline (ELAVIL) 50 mg tablet Take 50 mg by mouth daily at bedtime. - linaCLOtide (LINZESS) 290 mcg capsule - enteric contrast (will be provided with radiology test) For CT CHESTABD/PEL W IVCON Routine order Administer, As Directed One Time Only, via Oral, Rectal, both Oral and Rectal, Enteric Tube, Stoma or Indwelling Catheter, Enteric Contrast as designated per enteric contrast guidelines - clopidogrel (PLAVIX) 75 mg tablet Take 1 tablet by mouth once daily for 15 days. - spironolactone (ALDACTONE) 25 mg tablet - TRELEGY ELLIPTA 200-62.5-25 mcg inhalation powder INHALE 1 PUFF BY MOUTH DAILY - potassium chloride ER (K-DUR, KLOR-CON) 20 mEq tablet Take 10 mEq by mouth once daily. - amLODIPine (NORVASC) 10 mg tablet Take [...] - busPIRone (BUSPAR) 15 mg tablet Take 30 mg by mouth two times a day. - albuterol HFA (PROVENTIL HFA, VENTOLIN HFA) [...] mg by mouth once daily. - nitroglycerin subling (more content not included)... Normal [facility] ECHO DOPPLER COMPLETEon 0 02-21-2025 [place] [address] Cardiology Report Signed Patient: ALESSIO BURNS MR#: [id number] : 1950 Acct:[id number] Age/Sex: 74 / M ADM Date: 02/21/25 Loc: CARD Attending Dr: SYDNIE AMBROSIO Ordering Physician: SYDNIE AMBROSIO Date of Service: 02/21/25 Procedure(s): CA echo doppler complete Accession Number(s): [id number] cc: Anayeli Heaton NP; SYDNIE AMBROSIO Patient Name: ALESSIO BURNS MR#: [id number] : 1950 Exam Date: 02/21/2025 Ordering Doctor: DR SYDNIE AMBROSIO M.D. ECHOCARDIOGRAM REPORT PROCEDURE: CA ECHO DOPPLER [...] 50.75 ml, 50.75 ml Dictated by: Sydnie Ambrosio M.D. on 02/21/2025 at 18:40 Approved by: Sydnie Ambrosio M.D. on 02/21/2025 at 18:44 (more content not included)... [facility] Radiology, Radiologist, - 02/21/2025 [place] [address] Cardiology Report Signed Patient: ALESSIO BURNS MR#: [id number] : 1950 Acct:[id number] Age/Sex: 74 / M ADM Date: 02/21/25 Loc: CARD Attending Dr: SYDNIE AMBROSIO Ordering Physician: SYDNIE AMBROSIO Date of Service: 02/21/25 Procedure(s): CA echo doppler complete Accession Number(s): [id number] cc: Anayeli Heaton NP; SYDNIE AMBROSIO Patient Name: ALESSIO BURNS MR#: [id number] : 1950 Exam Date: 02/21/2025 Ordering Doctor: DR SYDNIE AMBROSIO M.D. ECHOCARDIOGRAM REPORT PROCEDURE: CA ECHO DOPPLER [...] 50.75 ml, 50.75 ml Dictated by: Sydnie Ambrosio M.D. on 02/21/2025 at 18:40 Approved by: Sydnie Ambrosio M.D. on 02/21/2025 at 18:44 Dictated By: SYDNIE AMBROSIO Signed By: 02/21/251844 DD/ 43 TD/TT: Manager Corporate: [facility] Radiology Study observation (narrative) [facility] CA ECHO DOPPLER COMPLETEOrde red By: Radiologist Radiology on 02-21-2025 [facility] Work Phone: CNOVSPon 02-06-2025 CNOVS Visit (SP) Office ([place]) ALESSIO BURNS ([id number]) 1950 M Date Time Provider Department 02/06/25 1:00 PM JAYA BAI During your visit today, we recorded the following information about you: Temperature Pulse Respiration Blood pressure 97.8 degrees 62/minute 16/minute 128/72 Weight Height 81.5 kg 1.676 m Jaya Bai MD 02/06/2025 1:21 PM Signed NAME: Alessio Burns CLINIC NO.: [id number] DATE OF SERVICE: February 06, 2025 (Zac) Some elements in this clinic note that are critical to medical decision making have been carefully reviewed and included from a prior clinic note dated: November 07, 2024 (Zac) Referring Provider: Dr. Shaikh Etienne Additional Clinicians involved in Alessio Burns's care: Maliha Lentz DO DIAGNOSIS: lung cancer ASSESSMENT: 74 year old gentleman diagnosed with early stage [...] SUV of 1.8. Since SUV measurements were still fairly low, I obtained a repeat PET/CT 2 months later in April 2023 that showed improvement of all pulmonary nodules. However, there was some uptake in the distal stomach/proximal duodenum which needed further evaluation which turned up benign. His most current CT scans shows new 1 cm nodules but he was sick, so repeat CT in 6 weeks. PLAN: RTC in [address] Chest 1 week prior to visit Continue follow up with GI - next in April 04. Malignant neoplasm of upper lobe of right lung (HCC) (C34.11) Malignant neoplasm of unspecified part of unspecified bronchus or lung (HCC) (C34.90) Lung nodules (R91.8) CT scans show stable lung nodules with some reduction in size and no new significant findings. Improved aeration noted. Some nodules may be infectious or inflammatory rather than malignant. No new liver lesions; existing lesion at the dome of the liver appears benign. - Schedule follow-up CT scan of the chest in 12 weeks. - Continue monitoring for any changes in nodules. 2. 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 - Continue monitoring with regular imaging. 3. Tobacco use disorder (F17.200) Nicotine dependence, cigarettes, uncomplicated (F17.210) Patient continues to smoke approximately half a pack per day, reduced from previous consumption of 2-3 packs per day. - Advised patient to further reduce tobacco use. 4. 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 - Prescribed sublingual Vitamin B12 supplement. - Re-evaluate B12 levels in 6 months. 5. Encounter for follow-up examination after completed treatment for conditions other than malignant neoplasm (Z09) Follow-up examination to review CT scan results and lab work. - Schedule next follow-up appointment at the end of April. 6. Generalized abdominal pain (R10.84) Ongoing abdominal pain with cramping, not specifically related to meals. Currently managed with Levsin 290 mg. - Continue Levsin as prescribed. - Follow-up with manager contract in April. (more content not included)... Normal [facility] CT ABD/PEL W IVCONon 01-31-2 025 * * *Final Report* * * DATE OF EXAM: Jan 30 2025 2:25PM [facility] 0530 - CT ABD/PEL W [...] any questions regarding this interpretation, please call [phone]. If you are unable to reach us at the number above, please feel free to contact [facility] at [phone]. [id number]^[email or web address]^SI^ ACN [facility] Radiology, Radiologist, - 01/31/2025 * * *Final Report* * * DATE OF EXAM: Jan 30 2025 2:25PM [facility] 0530 - CT ABD/PEL W [...] any questions regarding this interpretation, please call [phone]. If you are unable to reach us at the number above, please feel free to contact [facility]iology at [phone]. [id number]^[email or web address]^SI^ ACN [facility] CT ABD/PEL W IVCONOrdered By : Radiologist Radiology on 01-31-2025 [facility] Work Phone: CT Chest W contrast Beth * * *Final Report* * * DATE OF EXAM: Jan 30 2025 2:25PM [facility] 0539 - CT CHEST W [...] whereas others are new. Findings may be infectious/inflammator y or neoplastic in nature. Recommend continued follow-up. [...] any questions regarding this interpretation, please call [phone]. If you are unable to reach us at the number above, please feel free to contact [facility] at [phone]. [id number]^[email or web address]^SI^ [facility]iology, Radiologist, - 01/31/2025 * * *Final Report* * * DATE OF EXAM: Jan 30 2025 2:25PM [facility] 0539 - CT CHEST W [...] whereas others are new. Findings may be infectious/inflammator y or neoplastic in nature. Recommend continued follow-up. [...] any questions regarding this interpretation, please call [phone]. If you are unable to reach us at the number above, please feel free to contact [facility] at [phone]. [id number]^[email or web address]^SI^ ACN [facility] CT Chest W contrast IVOrdere d By: Radiologist Radiology on 01-31-2025 [facility] Work Phone: FERRITINon 01-31-2025 Ferritin [Mass/Vol] 187 ng/mL 30.3 - 5 65.7 ng/mL [facility] FOLATE, SERUMon 01-31-2025 Folate [Mass/Vol] 12.6 ng/mL 4.7 - PINF ng/mL [facility] Iron and Iron binding capaci ty panelon 01-31-2025 Interpretation and review of laboratory results Normal [facility] Iron [Mass/Vol] 67 ug/dL 41 - 186 ug/dL [facility] Iron binding capacity [Mass/Vol] 329 ug/dL 232 - 386 ug/dL [facility] Iron/TIBC [Molar ratio] 20.4 % 15.0 - 57.0 % [facility] No Panel Informationon 01-31 Interpretation and review of laboratory results Normal [facility] VITAMIN B12on 01-31-2025 Cobalamin (Vitamin B12) [Mass/Vol] 277 pg/mL 232 - 1245 pg/mL [facility] CBC W Auto Differential pane l (Bld)on 01-30-2025 Basophils (Bld) [#/Vol] 0.05 10*3/uL [facility] Differential cell count method Nom (Bld) Auto [facility] Eosinophils (Bld) [#/Vol] 0.28 10*3/uL [facility] Immature granulocytes (Bld) [#/Vol] 0.06 10*3/uL [facility] Immature granulocytes/100 WBC (Bld) 0.7 % [facility] Lymphocytes (Bld) [#/Vol] 2.03 10*3/uL [facility] Monocytes (Bld) [#/Vol] 1.17 10*3/uL High [facility] Neutrophils (Bld) [#/Vol] 5.08 10*3/uL [facility] Nucleated RBC (Bld) [#/Vol] [facility] Nucleated RBC/100 WBC (Bld) [Ratio] 0 % /100 WBC [facility] Platelet mean volume (Bld) [Entitic vol] 9.1 fL 9.0 - 12.7 fL [facility] Platelets (Bld) [#/Vol] 225 10*3/uL [facility] WBC (Bld) [#/Vol] 8.67 10*3/uL [facility] Basophils (Bld) [#/Vol] 0.05 10*3/uL Normal <0.11 [facility] Comment on above: Order Comment: Speci men Type: BLOOD SPECIMEN Ordering Facility: [facility] Address: [address] [place] [address] Performed By: #### 5 7021-8 #### [facility] CLIA [id number] [address] [place] [address]169 Basophils/100 WBC (Bld) 0.6 % Normal [facility] Comment on above: Order Comment: Speci men Type: BLOOD SPECIMEN Ordering Facility: [facility] Address: [address] [place] [address] Performed By: #### 5 7021-8 #### [facility] CLIA [id number] [address] [place] [address] Differential cell count method Nom (Bld) Auto Normal [facility] Comment on above: Order Comment: Speci men Type: BLOOD SPECIMEN Ordering Facility: [facility] Address: [address] [place] [address] Performed By: #### 5 7021-8 #### [facility] CLIA [id number] [address] [place] [address]677 Eosinophils (Bld) [#/Vol] 0.28 10*3/uL Normal <0.46 [facility] Comment on above: Order Comment: Speci men Type: BLOOD SPECIMEN Ordering Facility: [facility] Address: [address] [place] [address] Performed By: #### 5 7021-8 #### [facility] CLIA [id number] [address] [place] [address] 48196 Eosinophils/100 WBC (Bld) 3.2 % Normal [facility] Comment on above: Order Comment: Speci men Type: BLOOD SPECIMEN Ordering Facility: [facility] Address: [address] [place] [address] Performed By: #### 5 7021-8 #### [facility] CLIA [id number] [address] [place] [address]32 Erythrocyte distribution width (RBC) [Ratio] 13.5 % Normal 11.5-15.0 [facility] Comment on above: Order Comment: Speci men Type: BLOOD SPECIMEN Ordering Facility: [facility] Address: [address] [place] [address] Performed By: #### 5 7021-8 #### [facility] CLIA [id number] [address] [place] [address] 11773 Hematocrit (Bld) [Volume fraction] 39.7 % Normal 39.0-51.0 [facility] Comment on above: Order Comment: Speci men Type: BLOOD SPECIMEN Ordering Facility: [facility] Address: [address] [place] [address] Performed By: #### 5 7021-8 #### [facility] CLIA [id number] [address] [place] [address] 05684 Hemoglobin (Bld) [Mass/Vol] 13.2 g/dL Normal 13.0-17.0 [facility] Comment on above: Order Comment: Speci men Type: BLOOD SPECIMEN Ordering Facility: [facility] Address: [address] [place] [address] Performed By: #### 5 7021-8 #### [facility] CLIA [id number] [address] [place] [address] 53378 Immature granulocytes (Bld) [#/Vol] 0.06 10*3/uL Normal <0.10 [facility] Comment on above: Order Comment: Speci men Type: BLOOD SPECIMEN Ordering Facility: [facility] Address: [address] [place] [address] Performed By: #### 5 7021-8 #### [facility] CLIA [id number] [address] [place] [address] 87635 Immature granulocytes/100 WBC (Bld) 0.7 % Normal [facility] Comment on above: Order Comment: Speci men Type: BLOOD SPECIMEN Ordering Facility: [facility] Address: [address] [place] [address] Performed By: #### 5 7021-8 #### [facility] CLIA [id number] [address] [place] [address] 54771 Lymphocytes (Bld) [#/Vol] 2.03 10*3/uL Normal 1.00-4.00 [facility] Comment on above: Order Comment: Speci men Type: BLOOD SPECIMEN Ordering Facility: [facility] Address: [address] [place] [address] Performed By: #### 5 7021-8 #### [facility] CLIA [id number] [address] [place] [address] 78485 Lymphocytes/100 WBC (Bld) 23.4 % Normal [facility] Comment on above: Order Comment: Speci men Type: BLOOD SPECIMEN Ordering Facility: [facility] Address: [address] [place] [address] Performed By: #### 5 7021-8 #### [facility] CLIA [id number] [address] [place] [address] 10615 MCH (RBC) [Entitic mass] 30.9 pg Normal 26.0-34.0 [facility] Comment on above: Order Comment: Speci men Type: BLOOD SPECIMEN Ordering Facility: [facility] Address: [address] [place] [address] Performed By: #### 5 7021-8 #### [facility] CLIA [id number] [address] [place] [address] 46945 MCHC (RBC) [Mass/Vol] 33.2 g/dL Normal 30.5-36.0 [facility] Comment on above: Order Comment: Speci men Type: BLOOD SPECIMEN Ordering Facility: [facility] Address: [address] [place] [address] Performed By: #### 5 7021-8 #### [facility] CLIA [id number] [address] [place] [address] 66731 MCV (RBC) [Entitic vol] 93.0 fL Normal 80.0-100.0 [facility] Comment on above: Order Comment: Speci men Type: BLOOD SPECIMEN Ordering Facility: [facility] Address: [address] [place] [address] 31233 Performed By: #### 5 7021-8 #### [facility] CLIA [id number] [address] [place] [address] 58475 Monocytes (Bld) [#/Vol] 1.17 10*3/uL High <0.87 [facility] Comment on above: Order Comment: Speci men Type: BLOOD SPECIMEN Ordering Facility: [facility] Address: [address] [place] [address] Performed By: #### 5 7021-8 #### [facility] CLIA [id number] [address] [place] [address] 68521 Monocytes/100 WBC (Bld) 13.5 % Normal [facility] Comment on above: Order Comment: Speci men Type: BLOOD SPECIMEN Ordering Facility: [facility] Address: [address] [place] [address] Performed By: #### 5 7021-8 #### [facility] CLIA [id number] [address] [place] [address] 56913 Neutrophils (Bld) [#/Vol] 5.08 10*3/uL Normal 1.45-7.50 [facility] Comment on above: Order Comment: Speci men Type: BLOOD SPECIMEN Ordering Facility: [facility] Address: [address] [place] [address] Performed By: #### 5 7021-8 #### [facility] CLIA [id number] [address] [place] [address] 50057 Neutrophils/100 WBC (Bld) 58.6 % Normal [facility] Comment on above: Order Comment: Speci men Type: BLOOD SPECIMEN Ordering Facility: [facility] Address: [address] [place] [address] Performed By: #### 5 7021-8 #### [facility] CLIA [id number] [address] [place] [address] 62041 Nucleated RBC (Bld) [#/Vol] 10*3/uL Normal <0.01 [facility] Comment on above: Order Comment: Speci men Type: BLOOD SPECIMEN Ordering Facility: [facility] Address: [address] [place] [address] Performed By: #### 5 7021-8 #### [facility] CLIA [id number] [address] [place] [address] 26251 Nucleated RBC/100 WBC (Bld) [Ratio] 0.0 /100 WBC Normal [facility] Comment on above: Order Comment: Speci men Type: BLOOD SPECIMEN Ordering Facility: [facility] Address: [address] [place] [address] Performed By: #### 5 7021-8 #### [facility] CLIA [id number] [address] [place] [address] 89116 Platelet mean volume (Bld) [Entitic vol] 9.1 fL Normal 9.0-12.7 [facility] Comment on above: Order Comment: Speci men Type: BLOOD SPECIMEN Ordering Facility: [facility] Address: [address] [place] [address] Performed By: #### 5 7021-8 #### [facility] CLIA [id number] [address] [place] [address] 95522 Platelets (Bld) [#/Vol] 225 10*3/uL Normal 150-400 [facility] Comment on above: Order Comment: Speci men Type: BLOOD SPECIMEN Ordering Facility: [facility] Address: [address] [place] [address] Performed By: #### 5 7021-8 #### [facility] CLIA [id number] [address] [place] [address] 85429 RBC (Bld) [#/Vol] 4.27 10*6/uL Normal 4.20-6.00 [facility] Comment on above: Order Comment: Speci men Type: BLOOD SPECIMEN Ordering Facility: [facility] Address: [address] [place] [address] Performed By: #### 5 7021-8 #### [facility] CLIA [id number] [address] [place] [address] 66590 WBC (Bld) [#/Vol] 8.67 10*3/uL Normal 3.70-11.00 [facility] Comment on above: Order Comment: Speci men Type: BLOOD SPECIMEN Ordering Facility: [facility] Address: [address] [place] [address] 7[address]19 Performed By: #### 5 7021-8 #### [facility] CLIA [id number] [address] [place] [address] 29574 [facility] CBC W AUTO DIFF BLDon [facility] BASOPHILS # BLD AUTO 0.05 [facility] DIFFERENTIAL METHOD BLD Auto [facility] EOSINOPHIL # BLD AUTO 0.28 [facility] LYMPHOCYTES # BLD AUTO 2.03 [facility] MONOCYTES # BLD AUTO 1.17 High [facility] NEUTROPHILS # BLD AUTO 5.08 [facility] NRBC # BLD AUTO <0.01 [facility] NRBC/100 WBC BLD-RTO 0 /100 WBC [facility] PLATELET # BLD AUTO 225 [facility] PMV BLD AUTO 9.1 fL 9.0 - 12.7 fL [facility] WBC # BLD AUTO 8.67 [facility] IMM GRANULOCYTES # BLD AUTO 0.06 [facility] IMM GRANULOCYTES/LEUK NFR BLD AUTO 0.7 % [facility] Specimen Type: BLOOD SPECIMEN Ordering Facility: [facility] Address: [address] [place] [employer], [place] [id number] Original Ordering Provider: JAYA PHAM CT ABD/PEL W IVCONon 025 CT ABD/PEL W IVCON * * *Final Report* * * DATE OF EXAM: Jan 30 2025 2:25PM [facility] 0530 - CT ABD/PEL W [...] any questions regarding this interpretation, please call [phone]. If you are unable to reach us at the number above, please feel free to contact [facility] at [phone]. [id number] Normal [facility] CT CHEST W IVCONon CT CHEST W IVCON * * *Final Report* * * DATE OF EXAM: Jan 30 2025 2:25PM [facility] 0539 - CT CHEST W [...] whereas others are new. Findings may be infectious/inflammator y or neoplastic in nature. Recommend continued follow-up. [...] any questions regarding this interpretation, please call [phone]. If you are unable to reach us at the number above, please feel free to contact [facility] at [phone]. [id number] Normal [facility] metabolic 2000 panelOrdered By: Dolly Muhammad on 01-30-2025 Albumin [Mass/Vol] 4.3 g/dL 3.9 - 4.9 g/dL [facility] ALP [Catalytic activity/Vol] 95 U/L 38 - 113 U/L [facility] ALT [Catalytic activity/Vol] 8 U/L Low 10 - 54 U/L [facility] Anion gap [Moles/Vol] 8 mmol/L 8 - 15 mmol/L [facility] AST [Catalytic activity/Vol] 14 U/L 14 - 40 U/L [facility] Bilirubin [Mass/Vol] 0.3 mg/dL 0.2 - 1 .3 mg/dL [facility] Calcium [Mass/Vol] 9.4 mg/dL 8.5 - 10. 2 mg/dL [facility] Chloride [Moles/Vol] 105 mmol/L 98 - 10 7 mmol/L [facility] CO2 [Moles/Vol] 25 mmol/L 22 - 30 mmol/L [facility] Creatinine [Mass/Vol] 0.86 mg/dL 0.73 - 1.22 mg/dL [facility] GFR/1.73 sq M.predicted among non-blacks MDRD (S/P/Bld) [Vol rate/Area] 91 mL/min/{1.73_m2} - PINF [facility] Comment on above: Estimated Glomerular Filtration Rate (eGFR) is calculated using the 2020 CKD-EPI creatinine equation. This equation utilizes serum creatinine, sex, and age as parameters. The creatinine assay has traceable calibration to isotope dilution-mass spectrometry. Refer to KDIGO guidelines for clinical interpretation. In patients with unstable renal function, e.g. those with acute kidney injury, the eGFR may not accurately reflect actual GFR. Glucose [Mass/Vol] 85 mg/dL 74 - 99 mg/dL [facility] Comment on above: The [place] Diab[employer] Association (ADA) provides guidance for cutoff values [...] Standards of Medical Care in Diabetes 2016, [place] [employer]. Diabetes Care. 2016.39(Suppl 1). Interpretation and review of laboratory results Abnormal [facility] Potassium [Moles/Vol] 3.8 mmol/L 3.7 - 5.1 mmol/L [facility] Protein [Mass/Vol] 7.1 g/dL 6.3 - 8.0 g/dL [facility] Sodium [Moles/Vol] 138 mmol/L 136 - 144 mmol/L [facility] Urea nitrogen [Mass/Vol] 16 mg/dL 9 - 24 mg/dL [facility] Comprehensive metabolic 2000 panelon 01-30-2025 Albumin [Mass/Vol] 4.3 g/dL Normal 3.9-4.9 [facility] Comment on above: Order Comment: Speci men Type: BLOOD SPECIMENOrdering Facility: [facility] Address: [address] [place] [address] Performed By: #### 2 4323-8 ####[facility] [id number] [place] [address] ALP [Catalytic activity/Vol] 95 U/L Normal 38-113 [facility] Comment on above: Order Comment: Speci men Type: BLOOD SPECIMENOrdering Facility: [facility] Address: [address] [place] [address] Performed By: #### 2 4323-8 ####[facility] [id number] [place] [address] ALT [Catalytic activity/Vol] 8 U/L Low 10-54 [facility] Comment on above: Order Comment: Speci men Type: BLOOD SPECIMENOrdering Facility: [facility] Address: [address] [place] [address] Performed By: #### 2 4323-8 ####[facility] [id number] [place] [address] Anion gap [Moles/Vol] 8 mmol/L Normal 8-15 [facility] Comment on above: Order Comment: Speci men Type: BLOOD SPECIMENOrdering Facility: [facility] Address: [address] [place] [address] Performed By: #### 2 4323-8 ####[facility] LABCLIA [id number] [place] [address] AST [Catalytic activity/Vol] 14 U/L Normal 14-40 [facility] Comment on above: Order Comment: Speci men Type: BLOOD SPECIMENOrdering Facility: [facility] Address: [address] [place] [address] Performed By: #### 2 4323-8 ####[facility] LABCLIA [id number] [place] [address] Bilirubin [Mass/Vol] 0.3 mg/dL Normal 0.2-1.3 [facility] Comment on above: Order Comment: Speci men Type: BLOOD SPECIMENOrdering Facility: [facility] Address: [address] [place] [address] Performed By: #### 2 4323-8 ####[facility] LABCLIA [id number] [place] [address] Calcium [Mass/Vol] 9.4 mg/dL Normal 8.5-10.2 [facility] Comment on above: Order Comment: Speci men Type: BLOOD SPECIMENOrdering Facility: [facility] Address: [address] [place] [address] Performed By: #### 2 4323-8 ####[facility] LABCLIA [id number] [place] [address] Chloride [Moles/Vol] 105 mmol/L Normal 98-107 [facility] Comment on above: Order Comment: Speci men Type: BLOOD SPECIMENOrdering Facility: [facility] Address: [address] [place] [address] Performed By: #### 2 4323-8 ####[facility] LABCLIA [id number] [place] [address] CO2 [Moles/Vol] 25 mmol/L Normal 22-30 [facility] Comment on above: Order Comment: Speci men Type: BLOOD SPECIMENOrdering Facility: [facility] Address: [address] [place] [address] Performed By: #### 2 4323-8 ####[facility] LABCLIA [id number] [place] [address] Creatinine [Mass/Vol] 0.86 mg/dL Normal 0.73-1.22 [facility] Comment on above: Order Comment: Speci men Type: BLOOD SPECIMENOrdering Facility: [facility] Address: [address] [place] [address] Performed By: #### 2 4323-8 ####[facility] LABCLIA [id number] [place] [address] Creatinine and Glomerular filtration rate.predicted panel (S/P/Bld) 91 mL/min/1.73m??? Normal >=60 [facility] Comment on above: Order Comment: Speci men Type: BLOOD SPECIMENOrdering Facility: [facility] Address: [address] [place] [address] Result Comment: Karin mated Glomerular Filtration Rate [...] actual GFR. Performed By: #### 2 4323-8 ####[facility] LABCLIA [id number] [place] [address] Glucose [Mass/Vol] 85 mg/dL Normal 74-99 [facility] Comment on above: Order Comment: Derek krishnamurthy Type: BLOOD SPECIMENOrdering Facility: [facility] Address: [address] [place] [address] Result Comment: The [place] [employer] (ADA) provides guidance for cutoff [...] Standards of Medical Care in Diabetes 2016, [place] [employer]. Diabetes Care. 2016.39(Suppl 1). Performed By: #### 2 4323-8 ####[facility] LABCLIA [id number] [place] [address] Potassium [Moles/Vol] 3.8 mmol/L Normal 3.7-5.1 [facility] Comment on above: Order Comment: Derek krishnamurthy Type: BLOOD SPECIMENOrdering Facility: [facility] Address: [address] [place] [address] Performed By: #### 2 4323-8 ####[facility] LABCLIA [id number] [place] [address] Protein [Mass/Vol] 7.1 g/dL Normal 6.3-8.0 [facility] Comment on above: Order Comment: Speci men Type: BLOOD SPECIMENOrdering Facility: [facility] Address: [address] [place] [address] Performed By: #### 2 4323-8 ####[facility] LABCLIA [id number] [place] [address] Sodium [Moles/Vol] 138 mmol/L Normal 136-144 [facility] Comment on above: Order Comment: Speci men Type: BLOOD SPECIMENOrdering Facility: [facility] Address: [address] [place] [address] Performed By: #### 2 4323-8 ####[facility] LABCLIA [id number] [place] [address] Urea nitrogen [Mass/Vol] 16 mg/dL Normal 9-24 [facility] Comment on above: Order Comment: Speci men Type: BLOOD SPECIMENOrdering Facility: [facility] Address: [address] [place] [address] Performed By: #### 2 4323-8 ####[facility] LABCLIA [id number] [place] [address] EPO SerPl-aCncon 01-30-2025 Erythropoietin (EPO) Qn 11.5 mIU/mL Normal 2.6-18.5 [facility] Comment on above: Order Comment: Speci men Type: BLOOD SPECIMENOrdering Facility: [facility] Address: [address] [place] [address] Performed By: #### 1 5061-5 ####[facility] LABCLIA [id number] [place] [address] [place] Ferritin SerPl-mCncon 2024 Ferritin [Mass/Vol] 187.0 ng/mL Normal 30.3-565.7 [facility] Comment on above: Order Comment: Speci men Type: BLOOD SPECIMEN [facility] Address: [address] [place] [address] Performed By: #### 2 4323-8 #### [facility] CLIA [id number] [address] [place] [address] Folate SerPl-mCncon 01-31-20 25 Folate [Mass/Vol] 12.6 ng/mL Normal >4.7 [facility] Comment on above: Order Comment: Speci men Type: BLOOD SPECIMEN [facility] Address: [address] [place] [employer], [place] [address] Performed By: #### 2 4323-8 #### [facility] CLIA [id number] [address] [place] [address] Iron and Iron binding capaci [facility] 01-30-2025 Iron [Mass/Vol] 67 ug/dL Normal 41-186 [facility] Comment on above: Order Comment: Speci men Type: BLOOD SPECIMEN [facility] Address: [address] [place] [address] Performed By: #### 2 4323-8 #### [facility] CLIA [id number] [address] [place] [address] Iron binding capacity [Mass/Vol] 329 ug/dL Normal 232-386 [facility] Comment on above: Order Comment: Speci men Type: BLOOD SPECIMEN [facility] Address: [address] [place] [address] Performed By: #### 2 4323-8 #### [facility] CLIA [id number] [address] [place] [address] Iron/TIBC [Molar ratio] 20.4 % Normal 15.0-57.0 [facility] Comment on above: Order Comment: Speci men Type: BLOOD SPECIMEN [facility] Address: [address] [place] [address] Performed By: #### 2 4323-8 #### [facility] CLIA [id number] [address] [place] [address] Laboratory - Hematology and Cell countson 01-30-2025 Basophils/100 WBC (Bld) 0.6 % [facility] Eosinophils/100 WBC (Bld) 3.2 % [facility] Erythrocyte distribution width (RBC) [Ratio] 13.5 % 11.5 - 15.0 % [facility] Hematocrit (Bld) [Volume fraction] 39.7 % 39.0 - 51.0 % [facility] Hemoglobin (Bld) [Mass/Vol] 13.2 g/dL 13.0 - 17.0 g/dL [facility] Lymphocytes/100 WBC (Bld) 23.4 % [facility] MCH (RBC) [Entitic mass] 30.9 pg 26.0 - 34.0 pg [facility] MCHC (RBC) [Mass/Vol] 33.2 g/dL 30.5 - 36.0 g/dL [facility] MCV (RBC) [Entitic vol] 93 fL 80.0 - 100.0 fL [facility] Monocytes/100 WBC (Bld) 13.5 % [facility] Neutrophils/100 WBC (Bld) 58.6 % [facility] RBC (Bld) [#/Vol] 4.27 10*6/uL 4.20 - 6.0 0 m/uL [facility] No Panel Informationon 01-30 Interpretation and review of laboratory results Abnormal [facility] Radiology Study observation (narrative) [facility] Vit B12 SerPl-mCncon 025 Cobalamin (Vitamin B12) [Mass/Vol] 277 pg/mL Normal 232-1245 [facility] Comment on above: Order Comment: Speci men Type: BLOOD SPECIMEN [facility] Address: [address] [place] [address] Performed By: #### 2 4323-8 #### [facility] CLIA [id number] [address] [place] [address] 36on 01-03-2025 36 Anayeli Heaton CNP informed. Normal [facility] 36on 12-26-2024 36 Anayeli Heaton CNP called to check with you to see if she can start him on Zoloft 50mg for anxiety/depression. She said Dr. Etienne and the former [employer] never started him on something, so she's making sure there wasn't a reason why they didn't - due to his cardiac history. Thanks. ( ) Normal [facility] CBC W Auto Differential pane l (Bld)on 11-07-2024 Basophils (Bld) [#/Vol] 0.04 10*3/uL [facility] Differential cell count method Nom (Bld) Auto [facility] Eosinophils (Bld) [#/Vol] 0.34 10*3/uL [facility] Immature granulocytes (Bld) [#/Vol] 0.04 10*3/uL [facility] Immature granulocytes/100 WBC (Bld) 0.5 % [facility] Lymphocytes (Bld) [#/Vol] 1.66 10*3/uL [facility] Monocytes (Bld) [#/Vol] 1.01 10*3/uL High [facility] Neutrophils (Bld) [#/Vol] 4.78 10*3/uL [facility] Nucleated RBC (Bld) [#/Vol] [facility] Nucleated RBC/100 WBC (Bld) [Ratio] 0 % /100 WBC [facility] Platelet mean volume (Bld) [Entitic vol] 9.1 fL 9.0 - 12.7 fL [facility] Platelets (Bld) [#/Vol] 254 10*3/uL [facility] WBC (Bld) [#/Vol] 7.87 10*3/uL [facility] Basophils (Bld) [#/Vol] 0.04 10*3/uL Normal <0.11 [facility] Comment on above: Order Comment: Speci men Type: BLOOD SPECIMEN [facility] Address: [address] [place] [address] Performed By: #### 2 4323-8 #### [facility] CLIA [id number] [address] [place] [address] Basophils/100 WBC (Bld) 0.5 % Normal [facility] Comment on above: Order Comment: Speci men Type: BLOOD SPECIMEN [facility] Address: [address] [place] [address] Performed By: #### 2 4323-8 #### [facility] CLIA [id number] [address] [place] [address] Differential cell count method Nom (Bld) Auto Normal [facility] Comment on above: Order Comment: Speci men Type: BLOOD SPECIMEN [facility] Address: [address] [place] [address] Performed By: #### 2 4323-8 #### [facility] CLIA [id number] [address] [place] [address] Eosinophils (Bld) [#/Vol] 0.34 10*3/uL Normal <0.46 [facility] Comment on above: Order Comment: Speci men Type: BLOOD SPECIMEN [facility] Address: [address] [place] [address] Performed By: #### 2 4323-8 #### [facility] CLIA [id number] [address] [place] [address] Eosinophils/100 WBC (Bld) 4.3 % Normal [facility] Comment on above: Order Comment: Speci men Type: BLOOD SPECIMEN [facility] Address: [address] [place] [address] Performed By: #### 2 4323-8 #### [facility] CLIA [id number] [address] [place] [address] Erythrocyte distribution width (RBC) [Ratio] 13.7 % Normal 11.5-15.0 [facility] Comment on above: Order Comment: Speci men Type: BLOOD SPECIMEN [facility] Address: [address] [place] [address] Performed By: #### 2 4323-8 #### [facility] CLIA [id number] [address] [place] [address] Hematocrit (Bld) [Volume fraction] 36.7 % Low 39.0-51.0 [facility] Comment on above: Order Comment: Speci men Type: BLOOD SPECIMEN [facility] Address: [address] [place] [address] Performed By: #### 2 4323-8 #### [facility] CLIA [id number] [address] [place] [address] Hemoglobin (Bld) [Mass/Vol] 12.0 g/dL Low 13.0-17.0 [facility] Comment on above: Order Comment: Speci men Type: BLOOD SPECIMEN [facility] Address: [address] [place] [address] Performed By: #### 2 4323-8 #### [facility] CLIA [id number] [address] [place] [address] Immature granulocytes (Bld) [#/Vol] 0.04 10*3/uL Normal <0.10 [facility] Comment on above: Order Comment: Speci men Type: BLOOD SPECIMEN [facility] Address: [address] [place] [address] Performed By: #### 2 4323-8 #### [facility] CLIA [id number] [address] [place] [address] Immature granulocytes/100 WBC (Bld) 0.5 % Normal [facility] Comment on above: Order Comment: Speci men Type: BLOOD SPECIMEN [facility] Address: [address] [place] [address] Performed By: #### 2 4323-8 #### [facility] CLIA [id number] [address] [place] [address] Lymphocytes (Bld) [#/Vol] 1.66 10*3/uL Normal 1.00-4.00 [facility] Comment on above: Order Comment: Speci men Type: BLOOD SPECIMEN [facility] Address: [address] [place] [address] Performed By: #### 2 4323-8 #### [facility] CLIA [id number] [address] [place] [address] Lymphocytes/100 WBC (Bld) 21.1 % Normal [facility] Comment on above: Order Comment: Speci men Type: BLOOD SPECIMEN [facility] Address: [address] [place] [address] Performed By: #### 2 4323-8 #### [facility] CLIA [id number] [address] [place] [address] MCH (RBC) [Entitic mass] 30.2 pg Normal 26.0-34.0 [facility] Comment on above: Order Comment: Speci men Type: BLOOD SPECIMEN [facility] Address: [address] [place] [address] Performed By: #### 2 4323-8 #### [facility] CLIA [id number] [address] [place] [address] MCHC (RBC) [Mass/Vol] 32.7 g/dL Normal 30.5-36.0 [facility] Comment on above: Order Comment: Speci men Type: BLOOD SPECIMEN [facility] Address: [address] [place] [address] Performed By: #### 2 4323-8 #### [facility] CLIA [id number] [address] [place] [address] MCV (RBC) [Entitic vol] 92.4 fL Normal 80.0-100.0 [facility] Comment on above: Order Comment: Speci men Type: BLOOD SPECIMEN [facility] Address: [address] [place] [address] Performed By: #### 2 4323-8 #### [facility] CLIA [id number] [address] [place] [address] Monocytes (Bld) [#/Vol] 1.01 10*3/uL High <0.87 [facility] Comment on above: Order Comment: Speci men Type: BLOOD SPECIMEN [facility] Address: [address] [place] [address], [place] [address] Performed By: #### 2 4323-8 #### [facility] CLIA [id number] [address] [place] [address] Monocytes/100 WBC (Bld) 12.8 % Normal [facility] Comment on above: Order Comment: Speci men Type: BLOOD SPECIMEN [facility] Address: [address] [place], [place] [address] Performed By: #### 2 4323-8 #### [facility] CLIA [id number] [address] [place] [address] Neutrophils (Bld) [#/Vol] 4.78 10*3/uL Normal 1.45-7.50 [facility] Comment on above: Order Comment: Speci men Type: BLOOD SPECIMEN [facility] Address: [address] [place] [address] Performed By: #### 2 4323-8 #### [facility] CLIA [id number] [address] [place] [address] Neutrophils/100 WBC (Bld) 60.8 % Normal [facility] Comment on above: Order Comment: Speci men Type: BLOOD SPECIMEN [facility] Address: [address] [place] [address] Performed By: #### 2 4323-8 #### [facility] CLIA [id number] [address] [place] [address] Nucleated RBC (Bld) [#/Vol] 10*3/uL Normal <0.01 [facility] Comment on above: Order Comment: Speci men Type: BLOOD SPECIMEN [facility] Address: [address] [place], [place] [address] Performed By: #### 2 4323-8 #### [facility] CLIA [id number] [address] [place] [address] Nucleated RBC/100 WBC (Bld) [Ratio] 0.0 /100 WBC Normal [facility] Comment on above: Order Comment: Speci men Type: BLOOD SPECIMEN [facility] Address: [address] [place] [address] Performed By: #### 2 4323-8 #### [facility] CLIA [id number] [address] [place] [address] Platelet mean volume (Bld) [Entitic vol] 9.1 fL Normal 9.0-12.7 [facility] Comment on above: Order Comment: Speci men Type: BLOOD SPECIMEN [facility] Address: [address] [place] [address] Performed By: #### 2 4323-8 #### [facility] CLIA [id number] [address] [place] [address]308 Platelets (Bld) [#/Vol] 254 10*3/uL Normal 150-400 [facility] Comment on above: Order Comment: Speci men Type: BLOOD SPECIMEN [facility] Address: [address] [place] [address] Performed By: #### 2 4323-8 #### [facility] CLIA [id number] [address] [place] [address] RBC (Bld) [#/Vol] 3.97 10*6/uL Low 4.20-6.00 [facility] Comment on above: Order Comment: Speci men Type: BLOOD SPECIMEN [facility] Address: [address] [place] [address] Performed By: #### 2 4323-8 #### [facility] CLIA [id number] [address] [place] [address] WBC (Bld) [#/Vol] 7.87 10*3/uL Normal 3.70-11.00 [facility] Comment on above: Order Comment: Speci men Type: BLOOD SPECIMEN [facility] Address: [address] [place] [address] Performed By: #### 2 4323-8 #### [facility] CLIA [id number] [address] [place] [address] 18833 [facility] CBC W AUTO DIFF BLDon [facility] BASOPHILS # BLD AUTO 0.04 [facility] DIFFERENTIAL METHOD BLD Auto [facility] EOSINOPHIL # BLD AUTO 0.34 [facility] LYMPHOCYTES # BLD AUTO 1.66 [facility] MONOCYTES # BLD AUTO 1.01 High [facility] NEUTROPHILS # BLD AUTO 4.78 [facility] NRBC # BLD AUTO <0.01 [facility] NRBC/100 WBC BLD-RTO 0 /100 WBC [facility] PLATELET # BLD AUTO 254 [facility] PMV BLD AUTO 9.1 fL 9.0 - 12.7 fL [facility] WBC # BLD AUTO 7.87 [facility] IMM GRANULOCYTES # BLD AUTO 0.04 [facility] IMM GRANULOCYTES/LEUK NFR BLD AUTO 0.5 % [facility] Specimen Type: BLOOD SPECIMEN [facility] Address: [address] [id number] Original Ordering Provider: JAYA PHAM Lluvia 11-07-2024 OVS Visit (SP) Office ([facility]) ALESSIO BURNS ([id number]) 1950 M Date Time Provider Department 11/07/24 2:00 PM JAYA BAI During your visit today, we recorded the following information about you: Temperature Pulse Respiration Blood pressure 97 degrees 59/minute 18/minute 126/70 Weight 79.4 kg Jaya Bai MD 11/08/2024 6:21 PM Signed NAME: Alessio Burns CLINIC NO.: [id number] DATE OF SERVICE: November 07, 2024 (Zac) Some elements in this clinic note that are critical to medical decision making have been carefully reviewed and included from a prior clinic note dated: September 12, 2024 (Zac) Referring Provider: Dr. Shaikh Etienne Additional Clinicians involved in Alessio Burns's care: Maliha Lentz DO DIAGNOSIS: lung cancer ASSESSMENT: 74 year old gentleman diagnosed with early stage [...] 6-month gap between resection and presentation to [facility]. He remains at high risk because of [...] uptake in the distal stomach/proximal duodenum which needed further evaluation which turned up benign. His most current CT scans shows new 1 cm nodules but he was sick, so repeat CT in 6 weeks. PLAN: RTC in [address] CAP same day prior to visit Triage please call results from today's CT May need to modify plan for future imaging and follow up May need to obtain PET/CT Obtain report of CT from [facility] from 10/2024 Continue follow up with GI - HPI: CASE HISTORY: Reverse Chronological Order 11/07/2024 - CT CAP: Final reading in process Chest: A/P: 09/12/2024 - CT Chest: Multiple subcentimeter nodular opacities, most are stable but some are slightly smaller since 07/19/24. No evidence of new intrathoracic abnormalities. 07/19/2024 - CT CAP: Chest: Numerous bilateral pulmonary nodules are again identified, several of which appear increased in size, several of which have decreased in size, compatible with mixed response. No substantial intrathoracic adenopathy is appreciated. A/P: 1.6 cm subcapsular hepatic hypodensity appears less conspicuous from prior study of 02/23/2024. Otherwise, stable CT examination of the abdomen and pelvis. No substantial intra-abdominal or pelvic lymphadenopathy is identified. 04/18/2024 - CT Chest: Multiple scattered nodular opacities. Index nodules are as follows: * 0.9 cm right lower lobe nodule previously 1 cm * 0.7 cm right lower lobe nodule (image 81) previously 1.1 cm * 0.8 cm left lower lobe nodule (122), unchanged * 0.6 cm left upper lobe nodule (image 74) previously 1 mm 02/23/2024 - CT CAP: Chest: Multiple new nodular opacities measuring up to 1 cm. Differential diagnosis includes a combination of infectious/inflammator y etiologies or neoplasm. Consider interval follow-up and/or the workup. New right perihilar consolidative opacities may represent with new opacification of the right middle lobe bronchus most likely related to complete right middle lobe atele (more content not included)... Normal [facility] CNPNon 11-07-2024 CNPN Telephone (NCCAP) ALESSIO BURNS ([id number]) 1950 M Date Time Provider Department 11/07[facility]24 [facility] visit today, we recorded the following information about you: QianJasen 11/07/2024 2:52 PM Signed Wilmer Rosas RN 11/18/2024 9:01 AM Signed Darleen: please review and advise JERONIMO Wyatt Vivek, MD 11/18/2024 9:33 AM Signed Small nodules - more than prior in September. Still too small for PET/CT - keep 12 week appointments. Wilmer Rosas RN 11/18/2024 9:42 AM Signed Pt informed of Darleen's message, once verified, using 2 patient identifiers. Patient denies any questions, needs or concerns at this time. Appointment verified. Wilmer Rosas RN Allergies As of Date: 11/07/2024 (No Known Allergies) Date Reviewed: 11/07/2024 Reviewed by: Deepti Thakkar MA - Fully Assessed Reason for Visit: Results [95] Prescriptions as of 11/18/2024 - iv contrast (will be provided with [...] as designated per enteric contrast guidelines - iv contrast (will be provided with [...] as designated per enteric contrast guidelines - enteric contrast (will be provided with radiology test) For CT CHESTABD/PEL W IVCON Routine order Administer, As Directed One Time Only, via Oral, Rectal, both Oral and Rectal, Enteric Tube, Stoma or Indwelling Catheter, Enteric Contrast as designated per enteric contrast guidelines - amitriptyline (ELAVIL) 50 mg tablet Take 50 mg by mouth daily at bedtime. - linaCLOtide (LINZESS) 290 mcg capsule - enteric contrast (will be provided with radiology test) For CT CHESTABD/PEL W IVCON Routine order Administer, As Directed One Time Only, via Oral, Rectal, both Oral and Rectal, Enteric Tube, Stoma or Indwelling Catheter, Enteric Contrast as designated per enteric contrast guidelines - clopidogrel (PLAVIX) 75 mg tablet Take 1 tablet by mouth once daily for 15 days. - spironolactone (ALDACTONE) 25 mg tablet - TRELEGY ELLIPTA 200-62.5-25 mcg inhalation powder INHALE 1 PUFF BY MOUTH DAILY - potassium chloride ER (K-DUR, KLOR-CON) 20 mEq tablet Take 10 mEq by mouth once daily. - amLODIPine (NORVASC) 10 mg tablet Take [...] - busPIRone (BUSPAR) 15 mg tablet Take 30 mg by mouth two times a day. - albuterol HFA (PROVENTIL HFA, VENTOLIN HFA) [...] IF NO RELIEF CALL 911) - sacubitril-valsartan (ENTRE (more content not included)... Normal [facility] CT ABD/PEL W IVCONon 11-07-[address] ABD/PEL W IVCON * * *Final Report* * * DATE OF EXAM: Nov 07 2024 1:28PM [facility] 0530 - CT ABD/PEL W IVCON / PROCEDURE REASON: Malignant neoplasm [...] Dose-length product (DLP) for this visit = 1005 mGy*cm. CT Dose Reduction Employed: Automated exposure control (AEC) COMPARISON: 07/19/2024 RESULT: Liver: 1.6 x 0.6 cm subcapsular hypodensity is stable, image 19, series 3. No new hepatic lesion. Biliary Tract: No bile duct dilation. The gallbladder appears unremarkable. Spleen: No splenomegaly. No mass. Pancreas: No mass or ductal dilation. Adrenal glands: No mass. Kidneys: No enhancing mass or hydronephrosis. GI Tract: No bowel wall thickening or dilation. Lymph nodes: Subcentimeter retroperitoneal lymph nodes are again noted, stable. No substantial mesenteric, retroperitoneal, or pelvic lymphadenopathy is identified. Mesentery/Peritoneum: No ascites or mass. Retroperitoneum: No mass. Vasculature: - Abdominal aorta and iliac arteries: Atherosclerotic calcifications without aneurysm. Ectasia of the right common iliac artery measuring 1.5 cm, stable. - Celiac and SMA: Patent. - Portal venous system (SMV, splenic vein, portal vein and branches): Patent. - Hepatic veins: Patent. Pelvis: No free fluid or pelvic mass. Mild, diffuse bladder wall thickening, stable. Moderate enlargement of the prostate gland, unchanged. No substantial inguinal adenopathy. Large fat-containing right inguinal hernia is again appreciated, stable in appearance. Bones/Soft Tissues: Mild degenerative change within the lumbar spine. No osseous destructive process. Stable appearance to a small sclerotic focus involving the posterior right ilium, likely related to lymphoma. Lower Thorax: A CT examination of the chest has been performed concurrently and will be dictated separately. Government Instructor (topogram) images: No additional findings. IMPRESSION: 1. Stable 1.6 cm subcapsular hepatic hypodensity, as above. 2. Stable subcentimeter retroperitoneal lymph nodes. No substantial intra-abdominal or pelvic lymphadenopathy is identified. Transcribe Date/Time: Nov 08 2024 9:50A Dictated by: LORRIE KAPADIA MD This examination was interpreted and the report reviewed and electronically signed by: LORRIE KAPADIA MD on Nov 08 2024 11:43AM EST Thank you for allowing us to participate in the care of your patient. Should there be any questions regarding this interpretation, please call [phone]. If you are unable to reach us at the number above, please feel free to contact [facility] at [phone]. [id number] Normal [facility] CT CHEST W IVCONon CT CHEST W IVCON * * *Final Report* * * DATE OF EXAM: Nov 07 2024 1:28PM [facility] 0539 - CT CHEST W [...] Dose-length product (DLP) for this visit = 1005 mGy*cm CT Dose Reduction Employed: Automated exposure control (AEC) Comparison: CT chest 09/12/2024 RESULT: Limitations: None. Lines, tubes, and devices: None. Lung parenchyma , airways, and pleural space: No consolidative process or pleural effusion. Partial collapse of the right middle lobe, with atelectasis at the medial aspect of the right upper lung zone is appreciated, progressed. The trachea and major airways appear patent. Postoperative changes, compatible with prior right upper lobectomy are again appreciated. Moderate centrilobular emphysematous changes are again appreciated. Several bilateral subcentimeter pulmonary nodules are again appreciated: For example, a 6 mm left lower lobe nodule, image 131, series 4 is appreciated, previously 4 mm. A 5 mm left lower lobe nodule more inferiorly, image 171, series 4 is not clearly identified on the prior study. Within the right lower lobe, a 6 mm nodule within the lateral aspect of the right lower lobe is appreciated, previously 5 mm. A 5 mm nodule is noted within the medial aspect of the right lower lobe, image 137, previously 3 mm. Several additional bilateral subcentimeter nodules either stable or more conspicuous in size. Lower neck, lymph nodes, and mediastinum: The visualized thyroid gland is stable. No substantial supraclavicular or axillary lymphadenopathy is identified. Scattered subcentimeter mediastinal lymph nodes are again noted, stable. No substantial mediastinal or hilar adenopathy is identified. Postoperative changes at the right hilum are appreciated. Heart, pericardium, and thoracic vessels: Aneurysmal dilation of the ascending thoracic aorta measuring approximately 4.7 cm, stable. The descending thoracic aorta is normal in caliber. Coronary artery calcification is noted. No substantial pericardial effusion. Bones/Soft Tissues: Degenerative change within the thoracic spine is again noted. Postoperative changes, compatible with prior median sternotomy. No osseous destructive process is appreciated. Bilateral gynecomastia is again noted. Upper Abdomen: A CT examination of the abdomen has been performed concurrently and will be dictated separately. Government Instructor (topogram) images: No additional findings. IMPRESSION: 1. Several bilateral subcentimeter pulmonary nodules, progressed in size and number when compared to the prior study of 09/12/2024, as above. 2. No substantial intrathoracic adenopathy is appreciated. 3. Aneurysmal dilation of the ascending thoracic aorta, stable. Transcribe Date/Time: Nov 08 2024 9:53A Dictated by: LORRIE KAPADIA MD This examination was interpreted and the report reviewed and electronically signed by: LORRIE KAPADIA MD on Nov 08 2024 10:37AM EST Thank you for allowing us to participate in the care of your patient. Should there be any questions regarding this interpretation, please call [phone]. If you are unable to reach us at the number above, please feel free to contact [facility] at [phone]. [id number] Normal [facility] metabolic 2000 panelOrdered By: Oanh Vivar on 11-07-2024 Albumin [Mass/Vol] 3.7 g/dL Low 3.9 - 4.9 g/dL [facility] ALP [Catalytic activity/Vol] 98 U/L 38 - 113 U/L [facility] ALT [Catalytic activity/Vol] 8 U/L Low 10 - 54 U/L [facility] Anion gap [Moles/Vol] 9 mmol/L 8 - 15 mmol/L [facility] AST [Catalytic activity/Vol] 12 U/L Low 14 - 40 U/L [facility] Bilirubin [Mass/Vol] 0.3 mg/dL 0.2 - 1 .3 mg/dL [facility] Calcium [Mass/Vol] 8.5 mg/dL 8.5 - 10. 2 mg/dL [facility] Chloride [Moles/Vol] 108 mmol/L High 98 - 10 7 mmol/L [facility] CO2 [Moles/Vol] 24 mmol/L 22 - 30 mmol/L [facility] Creatinine [Mass/Vol] 0.96 mg/dL 0.73 - 1.22 mg/dL [facility] GFR/1.73 sq M.predicted among non-blacks MDRD (S/P/Bld) [Vol rate/Area] 83 mL/min/{1.73_m2} - PINF [facility] Comment on above: Estimated Glomerular Filtration Rate (eGFR) is calculated using the 2020 CKD-EPI creatinine equation. This equation utilizes serum creatinine, sex, and age as parameters. The creatinine assay has traceable calibration to isotope dilution-mass spectrometry. Refer to KDIGO guidelines for clinical interpretation. In patients with unstable renal function, e.g. those with acute kidney injury, the eGFR may not accurately reflect actual GFR. Glucose [Mass/Vol] 103 mg/dL High 74 - 99 mg/dL [facility] Comment on above: The [place] Diab[employer] Association (ADA) provides guidance for cutoff values [...] Standards of Medical Care in Diabetes 2016, [place] [employer]. Diabetes Care. 2016.39(Suppl 1). Interpretation and review of laboratory results Abnormal [facility] Potassium [Moles/Vol] 4.2 mmol/L 3.7 - 5.1 mmol/L [facility] Protein [Mass/Vol] 7 g/dL 6.3 - 8.0 g/dL [facility] Sodium [Moles/Vol] 141 mmol/L 136 - 144 mmol/L [facility] Urea nitrogen [Mass/Vol] 19 mg/dL 9 - 24 mg/dL [facility] metabolic 2000 panelon 11-07-2024 Albumin [Mass/Vol] 3.7 g/dL Low 3.9-4.9 [facility] Comment on above: Order Comment: Speci men Type: BLOOD SPECIMENOrdering Facility: [facility] Address: [address] [place] [address] Performed By: #### 2 4323-8 ####[facility] LABCLIA [id number] [place] [address] ALP [Catalytic activity/Vol] 98 U/L Normal 38-113 [facility] Comment on above: Order Comment: Speci men Type: BLOOD SPECIMENOrdering Facility: [facility] Address: [address] [place] [employer] [place], [place] [id number] Performed By: #### 2 4323-8 ####[facility] LABCLIA [id number] [place] [address] ALT [Catalytic activity/Vol] 8 U/L Low 10-54 [facility] Comment on above: Order Comment: Speci men Type: BLOOD SPECIMENOrdering Facility: [facility] Address: [address] [place] [address] Performed By: #### 2 4323-8 ####[facility] LABCLIA [id number] [place] [address] Anion gap [Moles/Vol] 9 mmol/L Normal 8-15 [facility] Comment on above: Order Comment: Speci men Type: BLOOD SPECIMENOrdering Facility: [facility] Address: [address] [place] [address] Performed By: #### 2 4323-8 ####[facility] LABCLIA [id number] [place] [address] AST [Catalytic activity/Vol] 12 U/L Low 14-40 [facility] Comment on above: Order Comment: Speci men Type: BLOOD SPECIMENOrdering Facility: [facility] Address: [address] [place] [address] Performed By: #### 2 4323-8 ####[facility] LABCLIA [id number] [place] [address] Bilirubin [Mass/Vol] 0.3 mg/dL Normal 0.2-1.3 [facility] Comment on above: Order Comment: Speci men Type: BLOOD SPECIMENOrdering Facility: [facility] Address: [address] [place] [address] Performed By: #### 2 4323-8 ####[facility] LABCLIA [id number] [place] [address] Calcium [Mass/Vol] 8.5 mg/dL Normal 8.5-10.2 [facility] Comment on above: Order Comment: Speci men Type: BLOOD SPECIMENOrdering Facility: [facility] Address: [address] [place] [address] Performed By: #### 2 4323-8 ####[facility] LABCLIA [id number] [place] [address] Chloride [Moles/Vol] 108 mmol/L High 98-107 [facility] Comment on above: Order Comment: Speci men Type: BLOOD SPECIMENOrdering Facility: [facility] Address: [address] [place] [address] Performed By: #### 2 4323-8 ####[facility] LABCLIA [id number] [place] [address] CO2 [Moles/Vol] 24 mmol/L Normal 22-30 [facility] Comment on above: Order Comment: Speci men Type: BLOOD SPECIMENOrdering Facility: [facility] Address: [address] [place] [address] Performed By: #### 2 4323-8 ####[facility] LABCLIA [id number] [place] [address] Creatinine [Mass/Vol] 0.96 mg/dL Normal 0.73-1.22 [facility] Comment on above: Order Comment: Speci men Type: BLOOD SPECIMENOrdering Facility: [facility] Address: [address] [place] [address] Performed By: #### 2 4323-8 ####[facility] LABCLIA [id number] [place] [address] Creatinine and Glomerular filtration rate.predicted panel (S/P/Bld) 83 mL/min/1.73m??? Normal >=60 [facility] Comment on above: Order Comment: Speci men Type: BLOOD SPECIMENOrdering Facility: [facility] Address: [address] [address] Result Comment: Karin mated Glomerular Filtration Rate [...] actual GFR. Performed By: #### 2 4323-8 ####[facility] LABCLIA [id number] [place] [address] Glucose [Mass/Vol] 103 mg/dL High 74-99 [facility] Comment on above: Order Comment: Derek krishnamurthy Type: BLOOD SPECIMENOrdering Facility: [facility] Address: [address] [place] [address] Result Comment: The [place] Diabetes Association (ADA) provides guidance for cutoff [...] Standards of Medical Care in Diabetes 2016, [place] [employer]. Diabetes Care. 2016.39(Suppl 1). Performed By: #### 2 4323-8 ####[facility] LABCLIA [id number] [place] [address] Potassium [Moles/Vol] 4.2 mmol/L Normal 3.7-5.1 [facility] Comment on above: Order Comment: Derek krishnamurthy Type: BLOOD SPECIMENOrdering Facility: [facility] Address: [address] [address] Performed By: #### 2 4323-8 ####[facility] LABCLIA [id number] [place] [address] Protein [Mass/Vol] 7.0 g/dL Normal 6.3-8.0 [facility] Comment on above: Order Comment: Speci men Type: BLOOD SPECIMENOrdering Facility: [facility] Address: [address] [place] [address] Performed By: #### 2 4323-8 ####[facility] LABCLIA [id number] [place] [address] Sodium [Moles/Vol] 141 mmol/L Normal 136-144 [facility] Comment on above: Order Comment: Speci men Type: BLOOD SPECIMENOrdering Facility: [facility] Address: [address] [place] [address] Performed By: #### 2 4323-8 ####[facility] LABCLIA [id number] [place] [address] Urea nitrogen [Mass/Vol] 19 mg/dL Normal 9-24 [facility] Comment on above: Order Comment: Speci men Type: BLOOD SPECIMENOrdering Facility: [facility] Address: [address] [place] [address] Performed By: #### 2 4323-8 ####[facility] LABIA [id number] [place] [address] Laboratory - Hematology and Cell countson 11-07-2024 Basophils/100 WBC (Bld) 0.5 % [facility] Eosinophils/100 WBC (Bld) 4.3 % [facility] Erythrocyte distribution width (RBC) [Ratio] 13.7 % 11.5 - 15.0 % [facility] Hematocrit (Bld) [Volume fraction] 36.7 % Low 39.0 - 51.0 % [facility] Hemoglobin (Bld) [Mass/Vol] 12 g/dL Low 13.0 - 17.0 g/dL [facility] Lymphocytes/100 WBC (Bld) 21.1 % [facility] MCH (RBC) [Entitic mass] 30.2 pg 26.0 - 34.0 pg [facility] MCHC (RBC) [Mass/Vol] 32.7 g/dL 30.5 - 36.0 g/dL [facility] MCV (RBC) [Entitic vol] 92.4 fL 80.0 - 100.0 fL [facility] Monocytes/100 WBC (Bld) 12.8 % [facility] Neutrophils/100 WBC (Bld) 60.8 % [facility] RBC (Bld) [#/Vol] 3.97 10*6/uL Low 4.20 - 6.0 0 m/uL [facility] No Panel Informationon 11-07 Interpretation and review of laboratory results Abnormal [facility] CNPNon 09-18-2024 CNPN Telephone (HEMASA) ALESSIO BURNS ([id number]) [address] Date Time Provider Department 09/18/24 WILMER ROSAS During your visit today, we recorded the following information about you: Wilmer Rosas RN 09/18/2024 9:30 AM Signed ----- Message from Jaya Bai MD sent at 09/17/2024 5:27 PM EST ----- Alessio's scans continue to look good. Wilmer Rosas RN 09/18/2024 9:30 AM Signed Pt informed of Darleen's message, once verified, using 2 patient identifiers. Patient denies any questions, needs or concerns at this time. Appointment verified. Wilmer Rosas RN Allergies As of Date: 09/18/2024 (No Known Allergies) Date Reviewed: 09/12/2024 Reviewed by: Jane Gilmore MA - Fully Assessed Reason for Visit: Results [95] Prescriptions as of 09/18/2024 - iv contrast (will be provided with [...] as designated per enteric contrast guidelines - enteric contrast (will be provided with radiology test) For CT CHESTABD/PEL W IVCON Routine order Administer, As Directed One Time Only, via Oral, Rectal, both Oral and Rectal, Enteric Tube, Stoma or Indwelling Catheter, Enteric Contrast as designated per enteric contrast guidelines - amitriptyline (ELAVIL) 50 mg tablet Take 50 mg by mouth daily at bedtime. - linaCLOtide (LINZESS) 290 mcg capsule - enteric contrast (will be provided with radiology test) For CT CHESTABD/PEL W IVCON Routine order Administer, As Directed One Time Only, via Oral, Rectal, both Oral and Rectal, Enteric Tube, Stoma or Indwelling Catheter, Enteric Contrast as designated per enteric contrast guidelines - clopidogrel (PLAVIX) 75 mg tablet Take 1 tablet by mouth once daily for 15 days. - spironolactone (ALDACTONE) 25 mg tablet - TRELEGY ELLIPTA 200-62.5-25 mcg inhalation powder INHALE 1 PUFF BY MOUTH DAILY - potassium chloride ER (K-DUR, KLOR-CON) 20 mEq tablet Take 10 mEq by mouth once daily. - amLODIPine (NORVASC) 10 mg tablet Take [...] - busPIRone (BUSPAR) 15 mg tablet Take 30 mg by mouth two times a day. - albuterol HFA (PROVENTIL HFA, VENTOLIN HFA) [...] TWICE DAILY Problem List As Of Date 09/18/2024 Noted Resolved Malignant neoplasm of overlapping sites of righ*10/29/2021 Coronary arteriosclerosis [I25.10] 01/05/2022 Chronic diastolic CHF [...] 01/05/2022 Panlobular emphysema (HCC) [J43.1] 07/21/2022 Encounter Sta (more content not included)... Normal [facility] ALL LIPID PROFILE (FASTING)o n 09-13-2024 CHOL HDL RATIO 2.6 [facility] Comment on above: 3.3 - 4.4 LOW RISK 4.4 - 7.1 AVERAGE RISK 7.1 - 11.0 MODERATE RISK >11.0 HIGH RISK Cholesterol [Mass/Vol] 106 mg/dL NINF - 200 mg/dL [facility] Cholesterol in HDL [Mass/Vol] 41 mg/dL 40 - 60 mg/dL [facility] Comment on above: > or =60 mg/dl - LOW CARDIOVASCULAR RISK <40 mg/dl - HIGH CARDIOVASCULAR RISK Magnesium [Mass/Vol] 52.2 mg/dL [facility] Comment on above: <100 mg/dl OPTIMAL 100-129 mg/dl NEAR OR ABOVE OPTIMAL 130-159 mg/dl BORDERLINE HIGH 160-189 mg/dl HIGH >190 mg/dl VERY HIGH Magnesium [Mass/Vol] 12.8 mg/dL [facility] Triglyceride [Mass/Vol] 64 mg/dL [facility] 150 mg/dL [facility] CBC W Auto Differential pane l (Bld)on 09-12-2024 Basophils (Bld) [#/Vol] 0.06 10*3/uL [facility] Differential cell count method Nom (Bld) Auto [facility] Eosinophils (Bld) [#/Vol] 0.32 10*3/uL [facility] Immature granulocytes (Bld) [#/Vol] 0.05 10*3/uL [facility] Immature granulocytes/100 WBC (Bld) 0.6 % [facility] Lymphocytes (Bld) [#/Vol] 1.55 10*3/uL [facility] MCHC (RBC) [Mass/Vol] 34.0 g/dL 30.5 - 36.0 g/dL [facility] Monocytes (Bld) [#/Vol] 1.03 10*3/uL High [facility] Neutrophils (Bld) [#/Vol] 6.00 10*3/uL [facility] Nucleated RBC (Bld) [#/Vol] [facility] Nucleated RBC/100 WBC (Bld) [Ratio] 0.0 % /100 WBC [facility] Platelet mean volume (Bld) [Entitic vol] 9.3 fL 9.0 - 12.7 fL [facility] Platelets (Bld) [#/Vol] 227 10*3/uL [facility] WBC (Bld) [#/Vol] 9.01 10*3/uL [facility] Basophils (Bld) [#/Vol] 0.06 10*3/uL Normal <0.11 [facility] Comment on above: Order Comment: Speci men Type: BLOOD SPECIMEN [facility] Address: [address] [place] [address] Performed By: #### 2 4323-8 #### [facility] CLIA [id number] [address] [place] [address] Basophils/100 WBC (Bld) 0.7 % Normal [facility] Comment on above: Order Comment: Speci men Type: BLOOD SPECIMEN [facility] Address: [address] [place] [address] Performed By: #### 2 4323-8 #### [facility] CLIA [id number] [address] [place] [address] Differential cell count method Nom (Bld) Auto Normal [facility] Comment on above: Order Comment: Speci men Type: BLOOD SPECIMEN [facility] Address: [address] [place] [address] Performed By: #### 2 4323-8 #### [facility] CLIA [id number] [address] [place] [address] Eosinophils (Bld) [#/Vol] 0.32 10*3/uL Normal <0.46 [facility] Comment on above: Order Comment: Speci men Type: BLOOD SPECIMEN [facility] Address: [address] [place] [address] Performed By: #### 2 4323-8 #### [facility] CLIA [id number] [address] [place] [address] Eosinophils/100 WBC (Bld) 3.6 % Normal [facility] Comment on above: Order Comment: Speci men Type: BLOOD SPECIMEN [facility] Address: [address] [place] [address] Performed By: #### 2 4323-8 #### [facility] CLIA [id number] [address] [place] [address] Erythrocyte distribution width (RBC) [Ratio] 13.2 % Normal 11.5-15.0 [facility] Comment on above: Order Comment: Speci men Type: BLOOD SPECIMEN [facility] Address: [address] [place] [address] Performed By: #### 2 4323-8 #### [facility] CLIA [id number] [address] [place] [address] Hematocrit (Bld) [Volume fraction] 39.7 % Normal 39.0-51.0 [facility] Comment on above: Order Comment: Speci men Type: BLOOD SPECIMEN [facility] Address: [address] [place] [address] Performed By: #### 2 4323-8 #### [facility] CLIA [id number] [address] [place] [address] Hemoglobin (Bld) [Mass/Vol] 13.5 g/dL Normal 13.0-17.0 [facility] Comment on above: Order Comment: Speci men Type: BLOOD SPECIMEN [facility] Address: [address] [place] [address] Performed By: #### 2 4323-8 #### [facility] CLIA [id number] [address] [place] [address] Immature granulocytes (Bld) [#/Vol] 0.05 10*3/uL Normal <0.10 [facility] Comment on above: Order Comment: Speci men Type: BLOOD SPECIMEN [facility] Address: [address] [place] [address] Performed By: #### 2 4323-8 #### [facility] CLIA [id number] [address] [place] [address] Immature granulocytes/100 WBC (Bld) 0.6 % Normal [facility] Comment on above: Order Comment: Speci men Type: BLOOD SPECIMEN [facility] Address: [address] [place] [address] Performed By: #### 2 4323-8 #### [facility] CLIA [id number] [address] [place] [address] Lymphocytes (Bld) [#/Vol] 1.55 10*3/uL Normal 1.00-4.00 [facility] Comment on above: Order Comment: Speci men Type: BLOOD SPECIMEN [facility] Address: [address] [place] [address] Performed By: #### 2 4323-8 #### [facility] CLIA [id number] [address] [place] [address] Lymphocytes/100 WBC (Bld) 17.2 % Normal [facility] Comment on above: Order Comment: Speci men Type: BLOOD SPECIMEN [facility] Address: [address] [place] [address] Performed By: #### 2 4323-8 #### [facility] CLIA [id number] [address] [place] [address] 68774 MCH (RBC) [Entitic mass] 30.9 pg Normal 26.0-34.0 [facility] Comment on above: Order Comment: Speci men Type: BLOOD SPECIMEN Ordering Facility: [facility] Address: [address] [place] [address] Performed By: #### 2 4323-8 #### [facility] CLIA [id number] [address] [place] [address] 78333 MCHC (RBC) [Mass/Vol] 34.0 g/dL Normal 30.5-36.0 [facility] Comment on above: Order Comment: Speci men Type: BLOOD SPECIMEN Ordering Facility: [facility] Address: [address] [place] [address] Performed By: #### 2 4323-8 #### [facility] CLIA [id number] [address] [place] [address] 78109 MCV (RBC) [Entitic vol] 90.8 fL Normal 80.0-100.0 [facility] Comment on above: Order Comment: Speci men Type: BLOOD SPECIMEN Ordering Facility: [facility] Address: [address] [place] [address] Performed By: #### 2 4323-8 #### [facility] CLIA [id number] [address] [place] [address] 59513 Monocytes (Bld) [#/Vol] 1.03 10*3/uL High <0.87 [facility] Comment on above: Order Comment: Speci men Type: BLOOD SPECIMEN Ordering Facility: [facility] Address: [address] [place] [address] Performed By: #### 2 4323-8 #### [facility] CLIA [id number] [address] [place] [address] 76303 Monocytes/100 WBC (Bld) 11.4 % Normal [facility] Comment on above: Order Comment: Speci men Type: BLOOD SPECIMEN Ordering Facility: [facility] Address: [address] [place] [address] Performed By: #### 2 4323-8 #### [facility] CLIA [id number] [address] [place] [address] 81772 Neutrophils (Bld) [#/Vol] 6.00 10*3/uL Normal 1.45-7.50 [facility] Comment on above: Order Comment: Speci men Type: BLOOD SPECIMEN Ordering Facility: [facility] Address: [address] [place] [address] Performed By: #### 2 4323-8 #### [facility] CLIA [id number] [address] [place] [address] 52676 Neutrophils/100 WBC (Bld) 66.5 % Normal [facility] Comment on above: Order Comment: Speci men Type: BLOOD SPECIMEN Ordering Facility: [facility] Address: [address] [place] [address] Performed By: #### 2 4323-8 #### [facility] CLIA [id number] [address] [place] [address] Nucleated RBC (Bld) [#/Vol] 10*3/uL Normal <0.01 [facility] Comment on above: Order Comment: Speci men Type: BLOOD SPECIMEN Ordering Facility: [facility] Address: [address] [place] [address] Performed By: #### 2 4323-8 #### [facility] CLIA [id number] [address] [place] [address] 09570 Nucleated RBC/100 WBC (Bld) [Ratio] 0.0 /100 WBC Normal [facility] Comment on above: Order Comment: Speci men Type: BLOOD SPECIMEN Ordering Facility: [facility] Address: [address] [place] [address] Performed By: #### 2 4323-8 #### [facility] CLIA [id number] [address] [place] [address] 00255 Platelet mean volume (Bld) [Entitic vol] 9.3 fL Normal 9.0-12.7 [facility] Comment on above: Order Comment: Speci men Type: BLOOD SPECIMEN Ordering Facility: [facility] Address: [address] [place] [address] Performed By: #### 2 4323-8 #### [facility] CLIA [id number] [address] [place] [address] 16312 Platelets (Bld) [#/Vol] 227 10*3/uL Normal 150-400 [facility] Comment on above: Order Comment: Speci men Type: BLOOD SPECIMEN Ordering Facility: [facility] Address: [address] [place] [address] Performed By: #### 2 4323-8 #### [facility] CLIA [id number] [address] [place] [address] 16300 RBC (Bld) [#/Vol] 4.37 10*6/uL Normal 4.20-6.00 [facility] Comment on above: Order Comment: Speci men Type: BLOOD SPECIMEN Ordering Facility: [facility] Address: [address] [place] [address] Performed By: #### 2 4323-8 #### [facility] CLIA [id number] [address] [place] [address] 23214 WBC (Bld) [#/Vol] 9.01 10*3/uL Normal 3.70-11.00 [facility] Comment on above: Order Comment: Speci men Type: BLOOD SPECIMEN Ordering Facility: [facility] Address: [address] [place] [address] Performed By: #### 2 4323-8 #### [facility] CLIA [id number] [address] [place] [address] 41181 [facility] CBC W AUTO DIFF BLDon [facility] BASOPHILS # BLD AUTO 0.06 [facility] DIFFERENTIAL METHOD BLD Auto [facility] EOSINOPHIL # BLD AUTO 0.32 [facility] LYMPHOCYTES # BLD AUTO 1.55 [facility] MONOCYTES # BLD AUTO 1.03 High [facility] NEUTROPHILS # BLD AUTO 6 [facility] NRBC # BLD AUTO <0.01 [facility] NRBC/100 WBC BLD-RTO 0 /100 WBC [facility] PLATELET # BLD AUTO 227 [facility] PMV BLD AUTO 9.3 fL 9.0 - 12.7 fL [facility] WBC # BLD AUTO 9.01 [facility] IMM GRANULOCYTES # BLD AUTO 0.05 [facility] IMM GRANULOCYTES/LEUK NFR BLD AUTO 0.6 % [facility] MCHC (RBC) [Mass/Vol] 34 g/dL 30.5 - 36.0 g/dL [facility] Specimen Type: BLOOD SPECIMEN Ordering Facility: [facility] Address: [address] [place] [address] Original Ordering Provider: JAYA Matthews 09-12-2024 CNOVSP Visit (SP) Office ([facility]) ALESSIO BURNS ([id number]) 1950 [address] [place] Date Time Provider Department 09/12/24 1:20 PM JAYA BAI During your visit today, we recorded the following information about you: Temperature Pulse Respiration Blood pressure 97.7 degrees 56/minute 18/minute 122/68 Weight 80.2 kg Jaya Bai MD 09/13/2024 12:54 PM Signed NAME: Alessio Burns CLINIC NO.: [id number] DATE OF SERVICE: September 12, 2024 (Zac) Some elements in this clinic note that are critical to medical decision making have been carefully reviewed and included from a prior clinic note dated: July 24, 2024 (Zac) Referring Provider: Dr. Shaikh Etienne Additional Clinicians involved in Alessio Burns's care: Maliha Lentz DO DIAGNOSIS: lung cancer ASSESSMENT: 74 year old gentleman diagnosed with early stage [...] uptake in the distal stomach/proximal duodenum which needed further evaluation which turned up benign. His most current CT scans shows new 1 cm nodules but he was sick, so repeat CT in 6 weeks. PLAN: RTC [address]'s and labs same day preceding clinician appointment Triage please call results from today's CT May need to modify plan for future imaging and follow up. May need to obtain PET/CT Continue follow up with GI - HPI: CASE HISTORY: Reverse Chronological Order 09/12/2024 - CT Chest: 1. Multiple subcentimeter nodular opacities, most are stable but some are slightly smaller since 07/19/24. 2. No evidence of new intrathoracic abnormalities. 07/19/2024 - CT CAP: Chest: Numerous bilateral pulmonary nodules are again identified, several of which appear increased in size, several of which have decreased in size, compatible with mixed response. No substantial intrathoracic adenopathy is appreciated. A/P: 1.6 cm subcapsular hepatic hypodensity appears less conspicuous from prior study of 02/23/2024. Otherwise, stable CT examination of the abdomen and pelvis. No substantial intra-abdominal or pelvic lymphadenopathy is identified. 04/18/2024 - CT Chest: Multiple scattered nodular opacities. Index nodules are as follows: * 0.9 cm right lower lobe nodule previously 1 cm * 0.7 cm right lower lobe nodule (image 81) previously 1.1 cm * 0.8 cm left lower lobe nodule (122), unchanged * 0.6 cm left upper lobe nodule (image 74) previously 1 mm 02/23/2024 - CT CAP: Chest: Multiple new nodular opacities measuring up to 1 cm. Differential diagnosis includes a combination of infectious/inflammator y etiologies or neoplasm. Consider interval follow-up and/or the workup. New right perihilar consolidative opacities may represent with new opacification of the right middle lobe bronchus most likely related to complete right middle lobe atelectasis. Differential diagnosis includes mucus plugging and endobronchi (more content not included)... Normal [facility] CNPNon 09-12-2024 CNPN Telephone (NCCAP) ALESSIO BURNS ([id number]) 1950 [address]* Date Time Provider Department 09/12/24 JAYA BAI During your visit today, we recorded the following information about you: Jasen Laughlin 09/12/2024 1:54 PM Signed Wilmer Rossa RN 09/13/2024 7:57 AM Signed Darleen: Please review and advise on any need to modify plan JERONIMO Wyatt Natalie, RN 09/13/2024 12:59 PM Signed Jaya Bai MD P [facility] Triage Pool 1. Multiple subcentimeter nodular opacities, most are stable but some are slightly smaller since 07/19/24. 2. No evidence of new intrathoracic abnormalities. Scan looks great!! Wilmer Rosas, JERONIMO 09/13/2024 12:59 PM Signed Clarified to continue with CT/appt, as previously scheduled, 11/07/24. Pt updated and agreeable to plan of care. Pt denies any questions, needs or concerns at this time. Wilmer Rosas RN Allergies As of Date: 09/12/2024 (No Known Allergies) Date Reviewed: 09/12/2024 Reviewed by: Jane Gilmore MA - Fully Assessed Reason for Visit: Results [95] Prescriptions as of 09/13/2024 - iv contrast (will be provided with [...] as designated per enteric contrast guidelines - enteric contrast (will be provided with radiology test) For CT CHESTABD/PEL W IVCON Routine order Administer, As Directed One Time Only, via Oral, Rectal, both Oral and Rectal, Enteric Tube, Stoma or Indwelling Catheter, Enteric Contrast as designated per enteric contrast guidelines - amitriptyline (ELAVIL) 50 mg tablet Take 50 mg by mouth daily at bedtime. - linaCLOtide (LINZESS) 290 mcg capsule - enteric contrast (will be provided with radiology test) For CT CHESTABD/PEL W IVCON Routine order Administer, As Directed One Time Only, via Oral, Rectal, both Oral and Rectal, Enteric Tube, Stoma or Indwelling Catheter, Enteric Contrast as designated per enteric contrast guidelines - clopidogrel (PLAVIX) 75 mg tablet Take 1 tablet by mouth once daily for 15 days. - spironolactone (ALDACTONE) 25 mg tablet - TRELEGY ELLIPTA 200-62.5-25 mcg inhalation powder INHALE 1 PUFF BY MOUTH DAILY - potassium chloride ER (K-DUR, KLOR-CON) 20 mEq tablet Take 10 mEq by mouth once daily. - amLODIPine (NORVASC) 10 mg tablet Take [...] - busPIRone (BUSPAR) 15 mg tablet Take 30 mg by mouth two times a day. 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 Normal [facility] CT CHEST W IVCONon CT CHEST W IVCON * * *Final Report* * * DATE OF EXAM: Sep 12 2024 1:05PM [facility] 0539 - CT CHEST W [...] abdomen: No evidence of an adrenal mass. Government Instructor (topogram) images: No additional findings. IMPRESSION: [...] any questions regarding this interpretation, please call [phone]. If you are unable to reach us at the number above, please feel free to contact [facility] at [phone]. [id number] Normal [facility] CT Chest W contrast Beth IMPRESSION: 1. Multiple subcentimeter nodular opacities, most [...] any questions regarding this interpretation, please call [phone]. If you are unable to reach us at the number above, please feel free to contact [facility] at [phone]. DIVISION OF RADIOLOGY * * *Final Report* * * DATE OF EXAM: Sep 12 2024 1:05PM [facility] 0539 - CT CHEST W [...] abdomen: No evidence of an adrenal mass. Government Instructor (topogram) images: No additional findings. DIVISION OF RADIOLOGY Provider, [facility] - 09/12/2024 * * *Final Report* * * DATE OF EXAM: Sep 12 2024 1:05PM [facility] 0539 - CT CHEST W [...] abdomen: No evidence of an adrenal mass. Government Instructor (topogram) images: No additional findings. IMPRESSION IMPRESSION: 1. Multiple subcentimeter nodular opacities, most [...] any questions regarding this interpretation, please call [phone]. If you are unable to reach us at the number above, please feel free to contact [facility] at [phone]. [facility] Radiology Study observation (narrative) [facility] CT Chest W contrast IVOrdere d By: [facility] Provider on 09-12-2024 [facility] Comprehensive metabolic 2000 panelOrdered By: Oanh Vivar on 09-12-2024 Albumin [Mass/Vol] 4.3 g/dL 3.9 - 4.9 g/dL [facility] ALP [Catalytic activity/Vol] 97 U/L 38 - 113 U/L [facility] ALT [Catalytic activity/Vol] 8 U/L Low 10 - 54 U/L [facility] Anion gap [Moles/Vol] 10 mmol/L 8 - 15 mmol/L [facility] AST [Catalytic activity/Vol] 15 U/L 14 - 40 U/L [facility] Bilirubin [Mass/Vol] 0.4 mg/dL 0.2 - 1 .3 mg/dL [facility] Calcium [Mass/Vol] 9.3 mg/dL 8.5 - 10. 2 mg/dL [facility] Chloride [Moles/Vol] 102 mmol/L 98 - 10 7 mmol/L [facility] CO2 [Moles/Vol] 25 mmol/L 22 - 30 mmol/L [facility] Creatinine [Mass/Vol] 0.94 mg/dL 0.73 - 1.22 mg/dL [facility] GFR/1.73 sq M.predicted among non-blacks MDRD (S/P/Bld) [Vol rate/Area] 86 mL/min/{1.73_m2} - PINF [facility] Comment on above: Estimated Glomerular Filtration Rate (eGFR) is calculated using the 2020 CKD-EPI creatinine equation. This equation utilizes serum creatinine, sex, and age as parameters. The creatinine assay has traceable calibration to isotope dilution-mass spectrometry. Refer to KDIGO guidelines for clinical interpretation. In patients with unstable renal function, e.g. those with acute kidney injury, the eGFR may not accurately reflect actual GFR. Glucose [Mass/Vol] 95 mg/dL 74 - 99 mg/dL [facility] Comment on above: The [place] Diab[employer] s Association (ADA) provides guidance for cutoff values [...] Standards of Medical Care in Diabetes 2016, [place] [employer]. Diabetes Care. 2016.39(Suppl 1). Interpretation and review of laboratory results Abnormal [facility] Potassium [Moles/Vol] 4.3 mmol/L 3.7 - 5.1 mmol/L [facility] Protein [Mass/Vol] 7.5 g/dL 6.3 - 8.0 g/dL [facility] Sodium [Moles/Vol] 137 mmol/L 136 - 144 mmol/L [facility] Urea nitrogen [Mass/Vol] 19 mg/dL 9 - 24 mg/dL [facility] Comprehensive metabolic 2000 panelon 09-12-2024 Albumin [Mass/Vol] 4.3 g/dL Normal 3.9-4.9 [facility] Comment on above: Order Comment: Speci men Type: BLOOD SPECIMENOrdering Facility: [facility] Address: [address] [place] [address] Performed By: #### 2 4323-8 ####[facility] [id number] [place] [address] ALP [Catalytic activity/Vol] 97 U/L Normal 38-113 [facility] Comment on above: Order Comment: Speci men Type: BLOOD SPECIMENOrdering Facility: [facility] Address: [address] [place] [address] Performed By: #### 2 4323-8 ####[facility]IA [id number] [place] [address] ALT [Catalytic activity/Vol] 8 U/L Low 10-54 [facility] Comment on above: Order Comment: Speci men Type: BLOOD SPECIMENOrdering Facility: [facility] Address: [address] [place] [address] Performed By: #### 2 4323-8 ####[facility]IA [id number] [place] [address] Anion gap [Moles/Vol] 10 mmol/L Normal 8-15 [facility] Comment on above: Order Comment: Speci men Type: BLOOD SPECIMENOrdering Facility: [facility] Address: [address] [place] [address] Performed By: #### 2 4323-8 ####[facility]IA [id number] [place] [address] AST [Catalytic activity/Vol] 15 U/L Normal 14-40 [facility] Comment on above: Order Comment: Speci men Type: BLOOD SPECIMENOrdering Facility: [facility] Address: [address] [place] [address] Performed By: #### 2 4323-8 ####[facility]CLIA [id number] [place] [address] Bilirubin [Mass/Vol] 0.4 mg/dL Normal 0.2-1.3 [facility] Comment on above: Order Comment: Speci men Type: BLOOD SPECIMENOrdering Facility: [facility] Address: [address] [place] [address] Performed By: #### 2 4323-8 ####[facility] LABCLIA [id number] [place] [address] Calcium [Mass/Vol] 9.3 mg/dL Normal 8.5-10.2 [facility] Comment on above: Order Comment: Speci men Type: BLOOD SPECIMENOrdering Facility: [facility] Address: [address] [place] [address] Performed By: #### 2 4323-8 ####[facility] LABCLIA [id number] [place] [address] Chloride [Moles/Vol] 102 mmol/L Normal 98-107 [facility] Comment on above: Order Comment: Speci men Type: BLOOD SPECIMENOrdering Facility: [facility] Address: [address] [place] [address] Performed By: #### 2 4323-8 ####[facility]CLIA [id number] [place] [address] CO2 [Moles/Vol] 25 mmol/L Normal 22-30 [facility] Comment on above: Order Comment: Speci men Type: BLOOD SPECIMENOrdering Facility: [facility] Address: [address] [place] [address] Performed By: #### 2 4323-8 ####[facility] LABCLIA [id number] [place] [address] Creatinine [Mass/Vol] 0.94 mg/dL Normal 0.73-1.22 [facility] Comment on above: Order Comment: Derek krishnamurthy Type: BLOOD SPECIMENOrdering Facility: [facility] Address: [address] [place] [address] Performed By: #### 2 4323-8 ####[facility] LABCLIA [id number] [place] [address] Creatinine and Glomerular filtration rate.predicted panel (S/P/Bld) 86 mL/min/1.73m??? Normal >=60 [facility] Comment on above: Order Comment: Derek krishnamurthy Type: BLOOD SPECIMENOrdering Facility: [facility] Address: [address] [place] [address] Result Comment: Karin mated Glomerular Filtration Rate [...] actual GFR. Performed By: #### 2 4323-8 ####[facility] LABCLIA [id number] [place] [address] Glucose [Mass/Vol] 95 mg/dL Normal 74-99 [facility] Comment on above: Order Comment: Derek krishnamurthy Type: BLOOD SPECIMENOrdering Facility: [facility] Address: [address] [place] [address] Result Comment: The [place] Diabetes Association (ADA) provides guidance for cutoff [...] Standards of Medical Care in Diabetes 2016, [place] Diabetes Association. Diabetes Care. 2016.39(Suppl 1). Performed By: #### 2 4323-8 ####[facility] LABCLIA [id number] [place] [address] Potassium [Moles/Vol] 4.3 mmol/L Normal 3.7-5.1 [facility] Comment on above: Order Comment: Speci men Type: BLOOD SPECIMENOrdering Facility: [facility] Address: [address] [place] [address] Performed By: #### 2 4323-8 ####[facility] LABCLIA [id number] [place] [address] Protein [Mass/Vol] 7.5 g/dL Normal 6.3-8.0 [facility] Comment on above: Order Comment: Speci men Type: BLOOD SPECIMENOrdering Facility: [facility] Address: [address] [place] [address] Performed By: #### 2 4323-8 ####[facility] LABCLIA [id number] [place] [address] Sodium [Moles/Vol] 137 mmol/L Normal 136-144 [facility] Comment on above: Order Comment: Speci men Type: BLOOD SPECIMENOrdering Facility: [facility] Address: [address] [place] [address] Performed By: #### 2 4323-8 ####[facility] LABCLIA [id number] [place] [address] Urea nitrogen [Mass/Vol] 19 mg/dL Normal 9-24 [facility] Comment on above: Order Comment: Speci men Type: BLOOD SPECIMENOrdering Facility: [facility] Address: [address] [place] [address] Performed By: #### 2 4323-8 ####[facility] LABCLIA [id number] [place] [address] Laboratory - Hematology and Cell countson 09-12-2024 Basophils/100 WBC (Bld) 0.7 % [facility] Eosinophils/100 WBC (Bld) 3.6 % [facility] Erythrocyte distribution width (RBC) [Ratio] 13.2 % 11.5 - 15.0 % [facility] Hematocrit (Bld) [Volume fraction] 39.7 % 39.0 - 51.0 % [facility] Hemoglobin (Bld) [Mass/Vol] 13.5 g/dL 13.0 - 17.0 g/dL [facility] Lymphocytes/100 WBC (Bld) 17.2 % [facility] MCH (RBC) [Entitic mass] 30.9 pg 26.0 - 34.0 pg [facility] MCV (RBC) [Entitic vol] 90.8 fL 80.0 - 100.0 fL [facility] Monocytes/100 WBC (Bld) 11.4 % [facility] Neutrophils/100 WBC (Bld) 66.5 % [facility] RBC (Bld) [#/Vol] 4.37 10*6/uL 4.20 - 6.0 0 m/uL [facility] No Panel Informationon 09-12 Interpretation and review of laboratory results Abnormal [facility] CNOVSPon 07-24-2024 CNOVSP Visit (SP) Office ([place]) ALESSIO BURNS ([id number]) 1950 [address] [place] Date Time Provider Department 07/24/24 11:20 AM JAYA BAI During your visit today, we recorded the following information about you: Temperature Pulse Respiration Blood pressure 97.8 degrees 49/minute 16/minute 119/64 Weight Height 83.5 kg 1.676 m Jaya Bai MD 07/24/2024 5:20 PM Signed NAME: Alessio Burns CLINIC NO.: [id number] DATE OF SERVICE: July 24, 2024 (Zac) Some elements in this clinic note that are critical to medical decision making have been carefully reviewed and included from a prior clinic note dated: April 18, 2024 (Zac) Referring Provider: Dr. Shaikh Etienne Additional Clinicians involved in Alessio Burns's care: Maliha Lentz DO DIAGNOSIS: lung cancer ASSESSMENT: 74 year old gentleman diagnosed with early stage [...] 6-month [facility] He remains at high risk because of [...] uptake in the distal stomach/proximal duodenum which needed further evaluation which turned up benign. His most current CT scans shows new 1 cm nodules but he was sick, so repeat CT in 6 weeks. PLAN: RTC [address]'s and labs same day preceding clinician appointment Continue follow up with GI - HPI: CASE HISTORY: Reverse Chronological Order 07/19/2024 - CT CAP: Chest: Numerous bilateral pulmonary nodules are again identified, several of which appear increased in size, several of which have decreased in size, compatible with mixed response. No substantial intrathoracic adenopathy is appreciated. A/P: 1.6 cm subcapsular hepatic hypodensity appears less conspicuous from prior study of 02/23/2024. Otherwise, stable CT examination of the abdomen and pelvis. No substantial intra-abdominal or pelvic lymphadenopathy is identified. 04/18/2024 - CT Chest: Multiple scattered nodular opacities. Index nodules are as follows: * 0.9 cm right lower lobe nodule previously 1 cm * 0.7 cm right lower lobe nodule (image 81) previously 1.1 cm * 0.8 cm left lower lobe nodule (122), unchanged * 0.6 cm left upper lobe nodule (image 74) previously 1 mm 02/23/2024 - CT CAP: Chest: Multiple new nodular opacities measuring up to 1 cm. Differential diagnosis includes a combination of infectious/inflammator y etiologies or neoplasm. Consider interval follow-up and/or the workup. New right perihilar consolidative opacities may represent with new opacification of the right middle lobe bronchus most likely related to complete right middle lobe atelectasis. Differential diagnosis includes mucus plugging and endobronchial lesion. A/P: Nonspecific 2.1 cm hypodensity in the dome of the liver, stable since 01/04/23. No evidence of new intra-abdominal/pelvic abnormalities. Fat-containing right inguinal hernia. 01/11/2024 - [place] Vein Mapping LLE: No evidence of deep or superficial venous thrombosis 11/10/2023 - C (more content not included)... Normal [facility] CBC W Auto Differential pane l (Bld)on 07-19-2024 Basophils (Bld) [#/Vol] 0.07 10*3/uL [facility] Differential cell count method Nom (Bld) Auto [facility] Eosinophils (Bld) [#/Vol] 0.28 10*3/uL [facility] Erythrocyte distribution width (RBC) [Ratio] 13.0 % 11.5 - 15.0 % [facility] Immature granulocytes (Bld) [#/Vol] 0.03 10*3/uL [facility] Immature granulocytes/100 WBC (Bld) 0.4 % [facility] Lymphocytes (Bld) [#/Vol] 1.44 10*3/uL [facility] Monocytes (Bld) [#/Vol] 0.89 10*3/uL High [facility] Neutrophils (Bld) [#/Vol] 4.77 10*3/uL [facility] Nucleated RBC (Bld) [#/Vol] [facility] Nucleated RBC/100 WBC (Bld) [Ratio] 0.0 % /100 WBC [facility] Platelet mean volume (Bld) [Entitic vol] 10.6 fL 9.0 - 12.7 fL [facility] Platelets (Bld) [#/Vol] 236 10*3/uL [facility] WBC (Bld) [#/Vol] 7.48 10*3/uL [facility] Basophils (Bld) [#/Vol] 0.07 10*3/uL Normal <0.11 [facility] Comment on above: Order Comment: Speci men Type: BLOOD SPECIMEN Ordering Facility: [facility] Address: [address] [place] [address] Performed By: #### 2 4323-8 #### [facility] CLIA [id number] [address] [place] [address] Basophils/100 WBC (Bld) 0.9 % Normal [facility] Comment on above: Order Comment: Speci men Type: BLOOD SPECIMEN Ordering Facility: [facility] Address: [address] [address] Performed By: #### 2 4323-8 #### [facility] CLIA [id number] [address] [place] [address] Differential cell count method Nom (Bld) Auto Normal [facility] Comment on above: Order Comment: Speci men Type: BLOOD SPECIMEN Ordering Facility: [facility] Address: [address] [place] [address] Performed By: #### 2 4323-8 #### [facility] CLIA [id number] [address] [place] [address] Eosinophils (Bld) [#/Vol] 0.28 10*3/uL Normal <0.46 [facility] Comment on above: Order Comment: Speci men Type: BLOOD SPECIMEN Ordering Facility: [facility] Address: [address] [place] [address] Performed By: #### 2 4323-8 #### [facility] CLIA [id number] [address] [place] [address]23 Eosinophils/100 WBC (Bld) 3.7 % Normal [facility] Comment on above: Order Comment: Speci men Type: BLOOD SPECIMEN Ordering Facility: [facility] Address: [address] [place] [address] Performed By: #### 2 4323-8 #### [facility] CLIA [id number] [address] [place] [address] Erythrocyte distribution width (RBC) [Ratio] 13.0 % Normal 11.5-15.0 [facility] Comment on above: Order Comment: Speci men Type: BLOOD SPECIMEN Ordering Facility: [facility] Address: [facility] [place] [address] Performed By: #### 2 4323-8 #### [facility] CLIA [id number] [address] [place] [address] Hematocrit (Bld) [Volume fraction] 37.9 % Low 39.0-51.0 [facility] Comment on above: Order Comment: Speci men Type: BLOOD SPECIMEN Ordering Facility: [facility] Address: [address] [place] [address] Performed By: #### 2 4323-8 #### [facility] CLIA [id number] [address] [place] [address] Hemoglobin (Bld) [Mass/Vol] 13.2 g/dL Normal 13.0-17.0 [facility] Comment on above: Order Comment: Speci men Type: BLOOD SPECIMEN Ordering Facility: [facility] Address: [address] [place] [address] Performed By: #### 2 4323-8 #### [facility] CLIA [id number] [address] [place] [address]163 Immature granulocytes (Bld) [#/Vol] 0.03 10*3/uL Normal <0.10 [facility] Comment on above: Order Comment: Speci men Type: BLOOD SPECIMEN Ordering Facility: [facility] Address: [address] [place] [address] Performed By: #### 2 4323-8 #### [facility] CLIA [id number] [address] [place] [address]008 Immature granulocytes/100 WBC (Bld) 0.4 % Normal [facility] Comment on above: Order Comment: Speci men Type: BLOOD SPECIMEN Ordering Facility: [facility] Address: [address] [place] [address] Performed By: #### 2 4323-8 #### [facility] CLIA [id number] [address] [place] [address] Lymphocytes (Bld) [#/Vol] 1.44 10*3/uL Normal 1.00-4.00 [facility] Comment on above: Order Comment: Speci men Type: BLOOD SPECIMEN Ordering Facility: [facility] Address: [address] [place] [address] Performed By: #### 2 4323-8 #### [facility] CLIA [id number] [place] [address] Lymphocytes/100 WBC (Bld) 19.3 % Normal [facility] Comment on above: Order Comment: Speci men Type: BLOOD SPECIMEN Ordering Facility: [facility] Address: [address] [place] [address] Performed By: #### 2 4323-8 #### [facility] CLIA [id number] [address] [place] [address] MCH (RBC) [Entitic mass] 31.6 pg Normal 26.0-34.0 [facility] Comment on above: Order Comment: Speci men Type: BLOOD SPECIMEN Ordering Facility: [facility] Address: [address] [place] [address] Performed By: #### 2 4323-8 #### [facility] CLIA [id number] [address] [place] [address] 28436 MCHC (RBC) [Mass/Vol] 34.8 g/dL Normal 30.5-36.0 [facility] Comment on above: Order Comment: Speci men Type: BLOOD SPECIMEN Ordering Facility: [facility] Address: [address] [place] [address] Performed By: #### 2 4323-8 #### [facility] CLIA [id number] [address] [place] [address] MCV (RBC) [Entitic vol] 90.7 fL Normal 80.0-100.0 [facility] Comment on above: Order Comment: Speci men Type: BLOOD SPECIMEN Ordering Facility: [facility] Address: [address] [place] [address] Performed By: #### 2 4323-8 #### [facility] CLIA [id number] [address] [place] [address] Monocytes (Bld) [#/Vol] 0.89 10*3/uL High <0.87 [facility] Comment on above: Order Comment: Speci men Type: BLOOD SPECIMEN Ordering Facility: [facility] Address: [address] [place] [address] Performed By: #### 2 4323-8 #### [facility] CLIA [id number] [address] [place] [address] 83020 Monocytes/100 WBC (Bld) 11.9 % Normal [facility] Comment on above: Order Comment: Speci men Type: BLOOD SPECIMEN Ordering Facility: [facility] Address: [address] [place] [address] Performed By: #### 2 4323-8 #### [facility] CLIA [id number] [address] [place] [address]54 Neutrophils (Bld) [#/Vol] 4.77 10*3/uL Normal 1.45-7.50 [facility] Comment on above: Order Comment: Speci men Type: BLOOD SPECIMEN Ordering Facility: [facility] Address: [address] [place] [address] Performed By: #### 2 4323-8 #### [facility] CLIA [id number] [address] [place] [address] 04024 Neutrophils/100 WBC (Bld) 63.8 % Normal [facility] Comment on above: Order Comment: Speci men Type: BLOOD SPECIMEN Ordering Facility: [facility] Address: [address] [place] [address] Performed By: #### 2 4323-8 #### [facility] CLIA [id number] [address] [place] [address] Nucleated RBC (Bld) [#/Vol] 10*3/uL Normal <0.01 [facility] Comment on above: Order Comment: Speci men Type: BLOOD SPECIMEN Ordering Facility: [facility] Address: [address] [place] [address] Performed By: #### 2 4323-8 #### [facility] CLIA [id number] [address] [place] [address] 76034 Nucleated RBC/100 WBC (Bld) [Ratio] 0.0 /100 WBC Normal [facility] Comment on above: Order Comment: Speci men Type: BLOOD SPECIMEN Ordering Facility: [facility] Address: [address] [place] [address] Performed By: #### 2 4323-8 #### [facility] CLIA [id number] [address] [place] [address] Platelet mean volume (Bld) [Entitic vol] 10.6 fL Normal 9.0-12.7 [facility] Comment on above: Order Comment: Speci men Type: BLOOD SPECIMEN Ordering Facility: [facility] Address: [address] [place], [place] [id number] Performed By: #### 2 4323-8 #### [facility] CLIA [id number] [address] [place] [address]282 Platelets (Bld) [#/Vol] 236 10*3/uL Normal 150-400 [facility] Comment on above: Order Comment: Speci men Type: BLOOD SPECIMEN Ordering Facility: [facility] Address: [address] [place] [address] Performed By: #### 2 4323-8 #### [facility] CLIA [id number] [address] [place] [address] 33858 RBC (Bld) [#/Vol] 4.18 10*6/uL Low 4.20-6.00 [facility] Comment on above: Order Comment: Speci men Type: BLOOD SPECIMEN Ordering Facility: [facility] Address: [address] [place] [address] Performed By: #### 2 4323-8 #### [facility] CLIA [id number] [address] [place] [address] WBC (Bld) [#/Vol] 7.48 10*3/uL Normal 3.70-11.00 [facility] Comment on above: Order Comment: Speci men Type: BLOOD SPECIMEN Ordering Facility: [facility] Address: [address] [place] [address]658 Performed By: #### 2 4323-8 #### [facility] CLIA [id number] [address] [place] [address] [facility] CBC W AUTO DIFF BLDon [facility] BASOPHILS # BLD AUTO 0.07 [facility] DIFFERENTIAL METHOD BLD Auto [facility] EOSINOPHIL # BLD AUTO 0.28 [facility] LYMPHOCYTES # BLD AUTO 1.44 [facility] MONOCYTES # BLD AUTO 0.89 High [facility] NEUTROPHILS # BLD AUTO 4.77 [facility] NRBC # BLD AUTO <0.01 [facility] NRBC/100 WBC BLD-RTO 0 /100 WBC [facility] PLATELET # BLD AUTO 236 [facility] PMV BLD AUTO 10.6 fL 9.0 - 12.7 fL [facility] WBC # BLD AUTO 7.48 [facility] Erythrocyte distribution width (RBC) [Ratio] 13 % 11.5 - 15.0 % [facility] IMM GRANULOCYTES # BLD AUTO 0.03 [facility] IMM GRANULOCYTES/LEUK NFR BLD AUTO 0.4 % [facility] Specimen Type: BLOOD SPECIMEN Ordering Facility: [facility] Address: [address] [place] [employer], [place] [id number] Original Ordering Provider: JAYA PHAM [facility] COMP METAB 2000 PNL SERP Altaf 07-19-2024 [facility] AST SERPL-CCNC 13 U/L Low 14 - 40 U/L [facility] BILIRUB SERPL-MCNC 0.4 mg/dL 0.2 - 1.3 mg/dL [facility] PROT SERPL-MCNC 7.4 g/dL 6.3 - 8. 0 g/dL [facility] GFR/1.73 sq M.predicted CKD-EPI (S/P/Bld) [Vol rate/Area] 80 - PINF [facility] Comment on above: Estimated Glomerular Filtration Rate (eGFR) is calculated using the 2020 CKD-EPI creatinine equation. This equation utilizes serum creatinine, sex, and age as parameters. The creatinine assay has traceable calibration to isotope dilution-mass spectrometry. Refer to KDIGO guidelines for clinical interpretation. In patients with unstable renal function, e.g. those with acute kidney injury, the eGFR may not accurately reflect actual GFR. Specimen Type: BLOOD SPECIMEN Ordering Facility: [facility] Address: [facility] [place] [address] Original Ordering Provider: JAYA PHAM CT ABD/PEL W IVCEleanor 11-15-[address] ABD/PEL W IVCON * * *Final Report* * * DATE OF EXAM: Jul 19 2024 12:28PM [facility] 0530 - CT ABD/PEL W [...] performed concurrently and will be dictated separately. Government Instructor (topogram) images: No additional findings. IMPRESSION: [...] any questions regarding this interpretation, please call [phone]. If you are unable to reach us at the number above, please feel free to contact [facility]iology at [phone]. [id number] Normal [facility] CT CHEST W IVCONon CT CHEST W IVCON * * *Final Report* * * DATE OF EXAM: Jul 19 2024 12:28PM [facility] 0539 - CT CHEST W [...] performed concurrently and will be dictated separately. Government Instructor (topogram) images: No additional findings. IMPRESSION: [...] any questions regarding this interpretation, please call [phone]. If you are unable to reach us at the number above, please feel free to contact [facility] eRadiology at [phone]. [id number] Normal [facility] metabolic 2000 panelOrdered By: Dolly Muhammad on 07-19-2024 AST [Catalytic activity/Vol] 13 U/L Low 14 - 40 U/L [facility] Bilirubin [Mass/Vol] 0.4 mg/dL 0.2 - 1 .3 mg/dL [facility] GFR/1.73 sq M.predicted among non-blacks MDRD (S/P/Bld) [Vol rate/Area] 80 mL/min/{1.73_m2} - PINF [facility] Comment on above: Estimated Glomerular Filtration Rate (eGFR) is calculated using the 2020 CKD-EPI creatinine equation. This equation utilizes serum creatinine, sex, and age as parameters. The creatinine assay has traceable calibration to isotope dilution-mass spectrometry. Refer to KDIGO guidelines for clinical interpretation. In patients with unstable renal function, e.g. those with acute kidney injury, the eGFR may not accurately reflect actual GFR. Protein [Mass/Vol] 7.4 g/dL 6.3 - 8.0 g/dL [facility] metabolic 2000 panelon 07-19-2024 Albumin [Mass/Vol] 4.1 g/dL Normal 3.9-4.9 [facility] Comment on above: Order Comment: Speci men Type: BLOOD SPECIMEN Ordering Facility: [facility] Address: [address] [place] [address] Performed By: #### 2 4323-8 #### [facility] CLIA [id number] [address] [place] [address] ALP [Catalytic activity/Vol] 97 U/L Normal 38-113 [facility] Comment on above: Order Comment: Speci men Type: BLOOD SPECIMEN Ordering Facility: [facility] Address: [address] [place] [address] Performed By: #### 2 4323-8 #### [facility] CLIA [id number] [address] [place] [address] 16511 ALT [Catalytic activity/Vol] 7 U/L Low 10-54 [facility] Comment on above: Order Comment: Speci men Type: BLOOD SPECIMEN Ordering Facility: [facility] Address: [address] [place] [address] Performed By: #### 2 4323-8 #### [facility] CLIA [id number] [address] [place] [address] Anion gap [Moles/Vol] 8 mmol/L Normal 8-15 [facility] Comment on above: Order Comment: Speci men Type: BLOOD SPECIMEN Ordering Facility: [facility] Address: [address] [place] [address] Performed By: #### 2 4323-8 #### [facility] CLIA [id number] [address] [place] [address] AST [Catalytic activity/Vol] 13 U/L Low 14-40 [facility] Comment on above: Order Comment: Speci men Type: BLOOD SPECIMEN Ordering Facility: [facility] Address: [address] [place] [address] Performed By: #### 2 4323-8 #### [facility] CLIA [id number] [address] [place] [address]2491 Bilirubin [Mass/Vol] 0.4 mg/dL Normal 0.2-1.3 [facility] Comment on above: Order Comment: Speci men Type: BLOOD SPECIMEN Ordering Facility: [facility] Address: [address] [place] [address] Performed By: #### 2 4323-8 #### [facility] CLIA [id number] [address] [place] [address] 04340 Calcium [Mass/Vol] 9.4 mg/dL Normal 8.5-10.2 [facility] Comment on above: Order Comment: Speci men Type: BLOOD SPECIMEN Ordering Facility: [facility] Address: [address] [place] [address] Performed By: #### 2 4323-8 #### [facility] CLIA [id number] [address] [place] [address] Chloride [Moles/Vol] 106 mmol/L Normal 98-107 [facility] Comment on above: Order Comment: Speci men Type: BLOOD SPECIMEN Ordering Facility: [facility] Address: [address] [place] [address] Performed By: #### 2 4323-8 #### [facility] CLIA [id number] [address] [place] [address] CO2 [Moles/Vol] 25 mmol/L Normal 22-30 [facility] Comment on above: Order Comment: Speci men Type: BLOOD SPECIMEN Ordering Facility: [facility] Address: [address] [place] [address] Performed By: #### 2 4323-8 #### [facility] CLIA [id number] [address] [place] [address] Creatinine [Mass/Vol] 0.99 mg/dL Normal 0.73-1.22 [facility] Comment on above: Order Comment: Speci men Type: BLOOD SPECIMEN Ordering Facility: [facility] Address: [address] [place] [address] Performed By: #### 2 4323-8 #### [facility] CLIA [id number] [address] [place] [address]11 Creatinine and Glomerular filtration rate.predicted panel (S/P/Bld) 80 mL/min/1.73m??? Normal >=60 [facility] Comment on above: Order Comment: Derek men Type: BLOOD SPECIMEN Ordering Facility: [facility] Address: [address] [place] [address] Result Comment: Karin mated Glomerular Filtration Rate [...] actual GFR. Performed By: #### 2 4323-8 #### [facility] CLIA [id number] [address] [place] [address] 33295 Glucose [Mass/Vol] 93 mg/dL Normal 74-99 [facility] Comment on above: Order Comment: Beleni raghu Type: BLOOD SPECIMEN Ordering Facility: [facility] Address: [address] [address] Result Comment: The [place] [employer] (ADA) provides guidance for cutoff [...] Standards of Medical Care in Diabetes 2016, [place] [employer]. Diabetes Care. 2016.39(Suppl 1). Performed By: #### 2 4323-8 #### [facility] CLIA [id number] [address] [place] [address] Potassium [Moles/Vol] 4.2 mmol/L Normal 3.7-5.1 [facility] Comment on above: Order Comment: Speci men Type: BLOOD SPECIMEN Ordering Facility: [facility] Address: [address] [place] [address] Performed By: #### 2 4323-8 #### [facility] CLIA [id number] [address] [place] [address] 92005 Protein [Mass/Vol] 7.4 g/dL Normal 6.3-8.0 [facility] Comment on above: Order Comment: Speci men Type: BLOOD SPECIMEN Ordering Facility: [facility] Address: [address] [place], [place] [address] Performed By: #### 2 4323-8 #### [facility] CLIA [id number] [address] [place] [address]07 Sodium [Moles/Vol] 139 mmol/L Normal 136-144 [facility] Comment on above: Order Comment: Speci men Type: BLOOD SPECIMEN Ordering Facility: [facility] Address: [address] [place] [address] Performed By: #### 2 4323-8 #### [facility] CLIA [id number] [address] [place] [address] Urea nitrogen [Mass/Vol] 14 mg/dL Normal 9-24 [facility] Comment on above: Order Comment: Speci men Type: BLOOD SPECIMEN Ordering Facility: [facility] Address: [address] [place] [address] Performed By: #### 2 4323-8 #### [facility] CLIA [id number] [address] [place] [address] Laboratory - Chemistry and C hemistry - challengeOrdered By: Dolly Muhammad on 07-19-2024 Albumin [Mass/Vol] 4.1 g/dL 3.9 - 4.9 g/dL [facility] ALP [Catalytic activity/Vol] 97 U/L 38 - 113 U/L [facility] ALT [Catalytic activity/Vol] 7 U/L Low 10 - 54 U/L [facility] Anion gap [Moles/Vol] 8 mmol/L 8 - 15 mmol/L [facility] Calcium [Mass/Vol] 9.4 mg/dL 8.5 - 10. 2 mg/dL [facility] Chloride [Moles/Vol] 106 mmol/L 98 - 10 7 mmol/L [facility] CO2 [Moles/Vol] 25 mmol/L 22 - 30 mmol/L [facility] Creatinine [Mass/Vol] 0.99 mg/dL 0.73 - 1.22 mg/dL [facility] Glucose [Mass/Vol] 93 mg/dL 74 - 99 mg/dL [facility] Comment on above: The [place] Diab[employer] Association (ADA) provides guidance for cutoff values [...] Standards of Medical Care in Diabetes 2016, [place] [employer]. Diabetes Care. 2016.39(Suppl 1). Potassium [Moles/Vol] 4.2 mmol/L 3.7 - 5.1 mmol/L [facility] Sodium [Moles/Vol] 139 mmol/L 136 - 144 mmol/L [facility] Urea nitrogen [Mass/Vol] 14 mg/dL 9 - 24 mg/dL [facility] Laboratory - Hematology and Cell countson 07-19-2024 Basophils/100 WBC (Bld) 0.9 % [facility] Eosinophils/100 WBC (Bld) 3.7 % [facility] Hematocrit (Bld) [Volume fraction] 37.9 % Low 39.0 - 51.0 % [facility] Hemoglobin (Bld) [Mass/Vol] 13.2 g/dL 13.0 - 17.0 g/dL [facility] Lymphocytes/100 WBC (Bld) 19.3 % [facility] MCH (RBC) [Entitic mass] 31.6 pg 26.0 - 34.0 pg [facility] MCHC (RBC) [Mass/Vol] 34.8 g/dL 30.5 - 36.0 g/dL [facility] MCV (RBC) [Entitic vol] 90.7 fL 80.0 - 100.0 fL [facility] Monocytes/100 WBC (Bld) 11.9 % [facility] Neutrophils/100 WBC (Bld) 63.8 % [facility] RBC (Bld) [#/Vol] 4.18 10*6/uL Low 4.20 - 6.0 0 m/uL [facility] No Panel InformationOrdered By: Dolly Muhammad on 07-19-2024 Interpretation and review of laboratory results Abnormal [facility] No Panel Informationon 07-19 Interpretation and review of laboratory results Abnormal [facility] CBC W Auto Differential pane l (Bld)on 04-18-2024 Basophils (Bld) [#/Vol] 0.08 10*3/uL [facility] Basophils/100 WBC (Bld) 0.8 % [facility] Differential cell count method Nom (Bld) Auto [facility] Eosinophils (Bld) [#/Vol] 0.44 10*3/uL [facility] [facility] Eosinophils/100 WBC (Bld) 4.4 % [facility] Erythrocyte distribution width (RBC) [Ratio] 14.0 % 11.5 - 15.0 % [facility] Hematocrit (Bld) [Volume fraction] 39.6 % 39.0 - 51.0 % [facility] Hemoglobin (Bld) [Mass/Vol] 13.3 g/dL 13.0 - 17.0 g/dL [facility] Immature granulocytes (Bld) [#/Vol] 0.06 10*3/uL [facility] Immature granulocytes/100 WBC (Bld) 0.6 % [facility] Interpretation and review of laboratory results Abnormal [facility] Lymphocytes (Bld) [#/Vol] 1.91 10*3/uL [facility] Lymphocytes/100 WBC (Bld) 19.1 % [facility] MCH (RBC) [Entitic mass] 31.0 pg 26.0 - 34.0 pg [facility] MCHC (RBC) [Mass/Vol] 33.6 g/dL 30.5 - 36.0 g/dL [facility] MCV (RBC) [Entitic vol] 92.3 fL 80.0 - 100.0 fL [facility] Monocytes (Bld) [#/Vol] 1.07 10*3/uL [facility] Monocytes/100 WBC (Bld) 10.7 % [facility] Neutrophils (Bld) [#/Vol] 6.42 10*3/uL [facility] Neutrophils/100 WBC (Bld) 64.4 % [facility] Nucleated RBC (Bld) [#/Vol] [facility] Nucleated RBC/100 WBC (Bld) [Ratio] 0.0 % /100 WBC [facility] Platelet mean volume (Bld) [Entitic vol] 9.6 fL 9.0 - 12.7 fL [facility] Platelets (Bld) [#/Vol] 280 10*3/uL [facility] RBC (Bld) [#/Vol] 4.29 10*6/uL 4.20 - 6.0 0 m/uL [facility] WBC (Bld) [#/Vol] 9.98 10*3/uL [facility] Basophils (Bld) [#/Vol] 0.08 10*3/uL Normal <0.11 [facility] Comment on above: Order Comment: Speci men Type: BLOOD SPECIMENOrdering Facility: [facility] Address: [address] [place] [address] Performed By: #### 5 7021-8 ####[facility] LABCLIA [id number] [place] [address] Basophils/100 WBC (Bld) 0.8 % Normal [facility] Comment on above: Order Comment: Speci men Type: BLOOD SPECIMENOrdering Facility: [facility] Address: [address] [place] [address] Performed By: #### 5 7021-8 ####[facility] LABCLIA [id number] [place] [address] Differential cell count method Nom (Bld) Auto Normal [facility] Comment on above: Order Comment: Speci men Type: BLOOD SPECIMENOrdering Facility: [facility] Address: [address] [place] [address] Performed By: #### 5 7021-8 ####[facility] LABCLIA [id number] [place] [address] Eosinophils (Bld) [#/Vol] 0.44 10*3/uL Normal <0.46 [facility] Comment on above: Order Comment: Speci men Type: BLOOD SPECIMENOrdering Facility: [facility] Address: [address] [place] [address] Performed By: #### 5 7021-8 ####[facility] LABCLIA [id number] [place] [address] Eosinophils/100 WBC (Bld) 4.4 % Normal [facility] Comment on above: Order Comment: Speci men Type: BLOOD SPECIMENOrdering Facility: [facility] Address: [address] [place] [address] Performed By: #### 5 7021-8 ####[facility] LABCLIA [id number] [place] [address] Erythrocyte distribution width (RBC) [Ratio] 14.0 % Normal 11.5-15.0 [facility] Comment on above: Order Comment: Speci men Type: BLOOD SPECIMENOrdering Facility: [facility] Address: [address] [place] [address] Performed By: #### 5 7021-8 ####[facility] LABCLIA [id number] [place] [address] Hematocrit (Bld) [Volume fraction] 39.6 % Normal 39.0-51.0 [facility] Comment on above: Order Comment: Speci men Type: BLOOD SPECIMENOrdering Facility: [facility] Address: [address] [place] [address] Performed By: #### 5 7021-8 ####[facility] LABIA [id number] [place] [address] Hemoglobin (Bld) [Mass/Vol] 13.3 g/dL Normal 13.0-17.0 [facility] Comment on above: Order Comment: Speci men Type: BLOOD SPECIMENOrdering Facility: [facility] Address: [address] [place] [address] Performed By: #### 5 7021-8 ####[facility] LABIA [id number] [place] [address] Immature granulocytes (Bld) [#/Vol] 0.06 10*3/uL Normal <0.10 [facility] Comment on above: Order Comment: Speci men Type: BLOOD SPECIMENOrdering Facility: [facility] Address: [address] [place] [address] Performed By: #### 5 7021-8 ####[facility] LABIA [id number] [place] [address] Immature granulocytes/100 WBC (Bld) 0.6 % Normal [facility] Comment on above: Order Comment: Speci men Type: BLOOD SPECIMENOrdering Facility: [facility] Address: [address] [place] [address] Performed By: #### 5 7021-8 ####[facility] LABIA [id number] [place] [address] Lymphocytes (Bld) [#/Vol] 1.91 10*3/uL Normal 1.00-4.00 [facility] Comment on above: Order Comment: Speci men Type: BLOOD SPECIMENOrdering Facility: [facility] Address: [address] [place] [address] Performed By: #### 5 7021-8 ####[facility] LABCLIA [id number] [place] [address] Lymphocytes/100 WBC (Bld) 19.1 % Normal [facility] Comment on above: Order Comment: Speci men Type: BLOOD SPECIMENOrdering Facility: [facility] Address: [address] [place] [address] Performed By: #### 5 7021-8 ####[facility] LABCLIA [id number] [place] [address] MCH (RBC) [Entitic mass] 31.0 pg Normal 26.0-34.0 [facility] Comment on above: Order Comment: Speci men Type: BLOOD SPECIMENOrdering Facility: [facility] Address: [address] [place] [address] Performed By: #### 5 7021-8 ####[facility] LABCLIA [id number] [place] [address] MCHC (RBC) [Mass/Vol] 33.6 g/dL Normal 30.5-36.0 [facility] Comment on above: Order Comment: Speci men Type: BLOOD SPECIMENOrdering Facility: [facility] Address: [address] [place] [address] Performed By: #### 5 7021-8 ####[facility] LABCLIA [id number] [place] [address] MCV (RBC) [Entitic vol] 92.3 fL Normal 80.0-100.0 [facility] Comment on above: Order Comment: Speci men Type: BLOOD SPECIMENOrdering Facility: [facility] Address: [address] [place] [address] Performed By: #### 5 7021-8 ####[facility] LABCLIA [id number] [place] [address] Monocytes (Bld) [#/Vol] 1.07 10*3/uL High <0.87 [facility] Comment on above: Order Comment: Speci men Type: BLOOD SPECIMENOrdering Facility: [facility] Address: [address] [place] [address] Performed By: #### 5 7021-8 ####[facility] LABCLIA [id number] [place] [address] Monocytes/100 WBC (Bld) 10.7 % Normal [facility] Comment on above: Order Comment: Speci men Type: BLOOD SPECIMENOrdering Facility: [facility] Address: [address] [place] [address] Performed By: #### 5 7021-8 ####[facility] LABCLIA [id number] [place] [address] Neutrophils (Bld) [#/Vol] 6.42 10*3/uL Normal 1.45-7.50 [facility] Comment on above: Order Comment: Speci men Type: BLOOD SPECIMENOrdering Facility: [facility] Address: [address] [place] [address] Performed By: #### 5 7021-8 ####[facility] LABCLIA [id number] [place] [address] Neutrophils/100 WBC (Bld) 64.4 % Normal [facility] Comment on above: Order Comment: Speci men Type: BLOOD SPECIMENOrdering Facility: [facility] Address: [address] [place] [address] Performed By: #### 5 7021-8 ####[facility] LABCLIA [id number] [place] [address] Nucleated RBC (Bld) [#/Vol] 10*3/uL Normal <0.01 [facility] Comment on above: Order Comment: Speci men Type: BLOOD SPECIMENOrdering Facility: [facility] Address: [address] [place] [address] Performed By: #### 5 7021-8 ####[facility] LABCLIA [id number] [place] [address] Nucleated RBC/100 WBC (Bld) [Ratio] 0.0 /100 WBC Normal [facility] Comment on above: Order Comment: Speci men Type: BLOOD SPECIMENOrdering Facility: [facility] Address: [address] [place] [address] Performed By: #### 5 7021-8 ####[facility] LABCLIA [id number] [place] [address] Platelet mean volume (Bld) [Entitic vol] 9.6 fL Normal 9.0-12.7 [facility] Comment on above: Order Comment: Speci men Type: BLOOD SPECIMENOrdering Facility: [facility] Address: [address] [place] [address] Performed By: #### 5 7021-8 ####[facility] LABCLIA [id number] [place] [address] Platelets (Bld) [#/Vol] 280 10*3/uL Normal 150-400 [facility] Comment on above: Order Comment: Speci men Type: BLOOD SPECIMENOrdering Facility: [facility] Address: [address] [place] [address] Performed By: #### 5 7021-8 ####[facility] LABCLIA [id number] [place] [address] RBC (Bld) [#/Vol] 4.29 10*6/uL Normal 4.20-6.00 [facility] Comment on above: Order Comment: Speci men Type: BLOOD SPECIMENOrdering Facility: [facility] Address: [address] [place] [address] Performed By: #### 5 7021-8 ####[facility] LABCLIA [id number] [place] [address] WBC (Bld) [#/Vol] 9.98 10*3/uL Normal 3.70-11.00 [facility] Comment on above: Order Comment: Speci men Type: BLOOD SPECIMENOrdering Facility: [facility] Address: [address] [place] [address] Performed By: #### 5 7021-8 ####[facility] LABCLIA [id number] [place] [address] CNOVSPon 04-18-2024 CNOVSP Visit (SP) Office (HEMASA) ALSESIO BURNS ([id number]) [address] [facility] Date Time Provider Department 04/18/24 11:30 AM JAYA BAI During your visit today, we recorded the following information about you: Temperature Pulse Respiration Blood pressure 97.8 degrees 56/minute 16/minute 133/66 Weight Height 84.7 kg 1.676 m Jaya Bai MD 04/18/2024 10:08 PM Signed NAME: Alessio Burns CLINIC NO.: [id number] DATE OF SERVICE: April 18, 2024 (Zac) Some elements in this clinic note that are critical to medical decision making have been carefully reviewed and included from a prior clinic note dated: March 01, 2024 (Zac) Referring Provider: Dr. Shaikh Etienne Additional Clinicians involved in Alessio Burns's care: Maliha Lentz DO DIAGNOSIS: lung cancer ASSESSMENT: 74 year old gentleman diagnosed with early stage [...] uptake in the distal stomach/proximal duodenum which needed further evaluation which turned up benign. His most current CT scans shows new 1 cm nodules but he was sick, so repeat CT in 6 weeks. 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 Continue follow up with GI - HPI: CASE HISTORY: Reverse Chronological Order 04/18/2024 - CT Chest: Multiple scattered nodular opacities. Index nodules are as follows: * 0.9 cm right lower lobe nodule previously 1 cm * 0.7 cm right lower lobe nodule (image 81) previously 1.1 cm * 0.8 cm left lower lobe nodule (122), unchanged * 0.6 cm left upper lobe nodule (image 74) previously 1 mm 02/23/2024 - CT CAP: Chest: Multiple new nodular opacities measuring up to 1 cm. Differential diagnosis includes a combination of infectious/inflammator y etiologies or neoplasm. Consider interval follow-up and/or the workup. New right perihilar consolidative opacities may represent with new opacification of the right middle lobe bronchus most likely related to complete right middle lobe atelectasis. Differential diagnosis includes mucus plugging and endobronchial lesion. A/P: Nonspecific 2.1 cm hypodensity in the dome of the liver, stable since 01/04/23. No evidence of new intra-abdominal/pelvic abnormalities. Fat-containing right inguinal hernia. 01/11/2024 - US Vein Mapping LLE: No evidence of deep or superficial venous thrombosis 11/10/2023 - CT Chest: There has been significant improvement in size and number of the previously identified multiple bilateral pulmonary nodules, as detailed above. Several subcentimeter mediastinal lymph nodes are again identified, unchanged. No substantial intrathoracic adenopathy is identified. Aneurysmal dilation of the ascending thoracic aorta measuring approximately 4.7-4.8 cm, stable. 08/04/2023 - PET/CT: No evidence of focal uptake to suggest FDG avid neoplastic process in the head/neck (more content not included)... Normal [facility] ([id number]) 1950 [address] [place] Date Time Provider Department 04/18/24 JAYA BAI During your visit today, we recorded the following information about you: Chloe Ivey RN 04/18/2024 7:09 AM Signed Please sign pended labs for 6 week f/u if agreeable-will draw with CT today Thank You! Chloe Ivey RN Allergies As of Date: 04/18/2024 (No Known Allergies) Date Reviewed: 03/01/2024 Reviewed by: Deepti Thakkar MA - Fully Assessed Reason for Visit: Orders [681] Primary Visit Diagnosis:Cancer of trachea, bronchus, 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, C34.80] Order(s):COMPREHENSIVE METABOLIC PANEL [SQCMP] Order #: [id number] FUTURE COMPLETE BLOOD COUNT AND DIFFERENTIAL [SQCBCDIF] Order #: [id number] FUTURE Prescriptions as of 04/18/2024 - amitriptyline (ELAVIL) 50 mg tablet Take 50 mg by mouth daily at bedtime. - LINZESS 145 mcg capsule TAKE 1 CAPSULE BY MOUTH IN THE MORNING BEFORE MEALS DO NOT CRUSH OR CHEW - iv contrast (will be provided with [...] as designated per enteric contrast guidelines - clopidogrel (PLAVIX) 75 mg tablet Take 1 tablet by mouth once daily for 15 days. - spironolactone (ALDACTONE) 25 mg tablet - TRELEGY ELLIPTA 200-62.5-25 mcg inhalation powder INHALE 1 PUFF BY MOUTH DAILY - potassium chloride ER (K-DUR, KLOR-CON) 20 mEq tablet Take 10 mEq by mouth once daily. - amLODIPine (NORVASC) 10 mg tablet Take [...] mg by mouth three times daily. - albuterol HFA (PROVENTIL HFA, VENTOLIN HFA) [...] TWICE DAILY Problem List As Of Date 04/18/2024 Noted Resolved Cancer of trachea, bronchus, and [...] emphysema (HCC) [J43.1] 07/21/2022 Encounter Status:Closed by JAYA BAI on 04/18/24 Normal [facility] CNPN Telephone (NCCAP) ALESSIO BURNS ([id number]) 1950 [place] Date Time Provider Department 04/18/24 JAYA BAI NCCAP During your visit today, we recorded the following information about you: Jasen Laughlin 04/18/2024 11:37 AM Signed Triage: Please see for results. Thanks! Wilmer Madden RN 04/19/2024 8:54 AM Signed Jaya Bai MD P [facility] Triage Pool; P [facility] Clerical Pool CT shows mostly improvement - will repeat CT CAP in 3 months with labs. RTC same day is fine or a few days after please Pt notified and denies questions, needs or concerns at this time. He will await call to schedule appts. PSS: please call to schedule CT/Lab/Darleen, as ordered JERONIMO Wyatt Amy S 04/19/2024 9:25 AM Signed Spoke to patient AND scheduled him on 07/19/2024 at 10:[address] CAP AND labs and DARLEEN at 11:30 am. Oanh Rodríguez Allergies As of Date: 04/18/2024 (No Known Allergies) Date Reviewed: 03/01/2024 Reviewed by: Deepti Thakkar MA - Fully Assessed Reason for Visit: Results [95] Prescriptions as of 04/19/2024 - iv contrast (will be provided with [...] as designated per enteric contrast guidelines - amitriptyline (ELAVIL) 50 mg tablet Take 50 mg by mouth daily at bedtime. - LINZESS 145 mcg capsule TAKE 1 CAPSULE BY MOUTH IN THE MORNING BEFORE MEALS DO NOT CRUSH OR CHEW - iv contrast (will be provided with [...] as designated per enteric contrast guidelines - clopidogrel (PLAVIX) 75 mg tablet Take 1 tablet by mouth once daily for 15 days. - spironolactone (ALDACTONE) 25 mg tablet - TRELEGY ELLIPTA 200-62.5-25 mcg inhalation powder INHALE 1 PUFF BY MOUTH DAILY - potassium chloride ER (K-DUR, KLOR-CON) 20 mEq tablet Take 10 mEq by mouth once daily. - amLODIPine (NORVASC) 10 mg tablet Take [...] mg by mouth three times daily. - albuterol HFA (PROVENTIL HFA, VENTOLIN HFA) [...] TWICE DAILY Problem List As Of Date 04/18/2024 Noted Resolved Cancer of trachea, bronchus, and lung (HCC) [C3*10/29/2021 Coronary arteriosclerosis [I25.10] 01/05/2022 Chronic diastolic CHF (congestive heart failure*01/05/2022 Aortic valve stenosis [I35.0] 01/05/2022 Aneurysm (more content not included)... Normal [facility] CT CHEST W IVCONon 4 CT CHEST W IVCON * * *Final Report* * * DATE OF EXAM: Apr 18 2024 11:04AM [facility] 0539 - CT CHEST W [...] abdomen: Visualized upper abdomen is grossly unremarkable. Government Instructor (topogram) images: Unremarkable. IMPRESSION: Mixed response to [...] any questions regarding this interpretation, please call [phone]. If you are unable to reach us at the number above, please feel free to contact [facility] eRadiology at [phone]. [id number] Normal [facility] CT Chest W contrast Beth IMPRESSION: Mixed response to therapy as described. Transcribe Date/Time: Apr 18 2024 3:13P Dictated by: STANLEY SMITH MD This examination was interpreted and the report reviewed and electronically signed by: STANLEY SMITH MD on Apr 18 2024 3:29PM EST Thank you for allowing us to participate in the care of your patient. Should there be any questions regarding this interpretation, please call [phone]. If you are unable to reach us at the number above, please feel free to contact [facility] at [phone]. DIVISION OF RADIOLOGY * * *Final Report* * * DATE OF EXAM: Apr 18 2024 11:04AM [facility] 0539 - CT CHEST W [...] abdomen: Visualized upper abdomen is grossly unremarkable. Government Instructor (topogram) images: Unremarkable. DIVISION OF RADIOLOGY Provider, [facility] - 04/18/2024 * * *Final Report* * * DATE OF EXAM: Apr 18 2024 11:04AM [facility] 0539 - CT CHEST W [...] abdomen: Visualized upper abdomen is grossly unremarkable. Government Instructor (topogram) images: Unremarkable. IMPRESSION IMPRESSION: Mixed response to therapy as described. Transcribe Date/Time: Apr 18 2024 3:13P Dictated by: STANLEY SMITH MD This examination was interpreted and the report reviewed and electronically signed by: STANLEY SMITH MD on Apr 18 2024 3:29PM EST Thank you for allowing us to participate in the care of your patient. Should there be any questions regarding this interpretation, please call [phone]. If you are unable to reach us at the number above, please feel free to contact [facility] eRadiology at [phone]. [facility] Radiology Study observation (narrative) [facility] CT Chest W contrast IVOrdere d By: [facility] Provider on 04-18-2024 [facility] Comprehensive metabolic 2000 panelOrdered By: Judd James on 04-18-2024 Albumin [Mass/Vol] 4.6 g/dL 3.9 - 4.9 g/dL [facility] ALP [Catalytic activity/Vol] 97 U/L 38 - 113 U/L [facility] ALT [Catalytic activity/Vol] 9 U/L Low 10 - 54 U/L [facility] Anion gap [Moles/Vol] 7 mmol/L Low 8 - 15 mmol/L [facility] AST [Catalytic activity/Vol] 15 U/L 14 - 40 U/L [facility] Bilirubin [Mass/Vol] 0.3 mg/dL 0.2 - 1 .3 mg/dL [facility] Calcium [Mass/Vol] 10.0 mg/dL 8.5 - 10. 2 mg/dL [facility] Chloride [Moles/Vol] 110 mmol/L High 98 - 10 7 mmol/L [facility] CO2 [Moles/Vol] 26 mmol/L 22 - 30 mmol/L [facility] Creatinine [Mass/Vol] 1.12 mg/dL 0.73 - 1.22 mg/dL [facility] GFR/1.73 sq M.predicted among non-blacks MDRD (S/P/Bld) [Vol rate/Area] 69 mL/min/{1.73_m2} - PINF [facility] Comment on above: Estimated Glomerular Filtration Rate (eGFR) is calculated using the 2020 CKD-EPI creatinine equation. This equation utilizes serum creatinine, sex, and age as parameters. The creatinine assay has traceable calibration to isotope dilution-mass spectrometry. Refer to KDIGO guidelines for clinical interpretation. In patients with unstable renal function, e.g. those with acute kidney injury, the eGFR may not accurately reflect actual GFR. Glucose [Mass/Vol] 109 mg/dL High 74 - 99 mg/dL [facility] Comment on above: The [place] Diab[employer] s Association (ADA) provides guidance for cutoff values [...] Standards of Medical Care in Diabetes 2016, [place] [employer]. Diabetes Care. 2016.39(Suppl 1). Interpretation and review of laboratory results Abnormal [facility] Potassium [Moles/Vol] 4.1 mmol/L 3.7 - 5.1 mmol/L [facility] Protein [Mass/Vol] 8.3 g/dL High 6.3 - 8.0 g/dL [facility] Sodium [Moles/Vol] 143 mmol/L 136 - 144 mmol/L [facility] Urea nitrogen [Mass/Vol] 22 mg/dL 9 - 24 mg/dL [facility] Comprehensive metabolic 2000 panelon 04-18-2024 Albumin [Mass/Vol] 4.6 g/dL Normal 3.9-4.9 [facility] Comment on above: Order Comment: Speci raghu Type: BLOOD SPECIMEN [facility] Address: [address] [place] [address] Performed By: #### 2 4323-8 #### [facility] CLIA [id number] [address] [place] [address] ALP [Catalytic activity/Vol] 97 U/L Normal 38-113 [facility] Comment on above: Order Comment: Speci men Type: BLOOD SPECIMEN [facility] Address: [address] [place] [address] Performed By: #### 2 4323-8 #### [facility] CLIA [id number] [address] [place] [address] ALT [Catalytic activity/Vol] 9 U/L Low 10-54 [facility] Comment on above: Order Comment: Speci men Type: BLOOD SPECIMEN [facility] Address: [address] [place] [address] Performed By: #### 2 4323-8 #### [facility] CLIA [id number] [address] [place] [address] Anion gap [Moles/Vol] 7 mmol/L Low 8-15 [facility] Comment on above: Order Comment: Speci men Type: BLOOD SPECIMEN [facility] Address: [address] [place] [address] Performed By: #### 2 4323-8 #### [facility] CLIA [id number] [address] [place] [address] AST [Catalytic activity/Vol] 15 U/L Normal 14-40 [facility] Comment on above: Order Comment: Speci men Type: BLOOD SPECIMEN [facility] Address: [address] [place] [address] Performed By: #### 2 4323-8 #### [facility] CLIA [id number] [address] [place] [address] Bilirubin [Mass/Vol] 0.3 mg/dL Normal 0.2-1.3 [facility] Comment on above: Order Comment: Speci men Type: BLOOD SPECIMEN [facility] Address: [address] [place] [address] Performed By: #### 2 4323-8 #### [facility] CLIA [id number] [address] [place] [address] Calcium [Mass/Vol] 10.0 mg/dL Normal 8.5-10.2 [facility] Comment on above: Order Comment: Speci men Type: BLOOD SPECIMEN [facility] Address: [address] [place] [address] Performed By: #### 2 4323-8 #### [facility] CLIA [id number] [address] [place] [address] Chloride [Moles/Vol] 110 mmol/L High 98-107 [facility] Comment on above: Order Comment: Speci men Type: BLOOD SPECIMEN [facility] Address: [address] [place] [address] Performed By: #### 2 4323-8 #### [facility] CLIA [id number] [address] [place] [address] CO2 [Moles/Vol] 26 mmol/L Normal 22-30 [facility] Comment on above: Order Comment: Speci men Type: BLOOD SPECIMEN Ordering Facility: [facility] Address: [address] [place] [address] Performed By: #### 2 4323-8 #### [facility] CLIA [id number] [address] [place] [address] Creatinine [Mass/Vol] 1.12 mg/dL Normal 0.73-1.22 [facility] Comment on above: Order Comment: Speci men Type: BLOOD SPECIMEN Ordering Facility: [facility] Address: [address] [place] [address] Performed By: #### 2 4323-8 #### [facility] CLIA [id number] [address] [place] [address]46 Creatinine and Glomerular filtration rate.predicted panel (S/P/Bld) 69 mL/min/1.73m??? Normal >=60 [facility] Comment on above: Order Comment: Speci men Type: BLOOD SPECIMEN Ordering Facility: [facility] Address: [address] [place] [address] Result Comment: Karin mated Glomerular Filtration Rate [...] actual GFR. Performed By: #### 2 4323-8 #### [facility] CLIA [id number] [address] [place] [address] Glucose [Mass/Vol] 109 mg/dL High 74-99 [facility] Comment on above: Order Comment: Derek krishnamurthy Type: BLOOD SPECIMEN Ordering Facility: [facility] Address: [address] [place] [address] Result Comment: The [place] Diabetes Association (ADA) provides guidance for cutoff [...] Standards of Medical Care in Diabetes 2016, [place] [employer]. Diabetes Care. 2016.39(Suppl 1). Performed By: #### 2 4323-8 #### [facility] CLIA [id number] [address] [place] [address] Potassium [Moles/Vol] 4.1 mmol/L Normal 3.7-5.1 [facility] Comment on above: Order Comment: Derek krishnamurthy Type: BLOOD SPECIMEN Ordering Facility: [facility] Address: [address] [place] [address] Performed By: #### 2 4323-8 #### [facility] CLIA [id number] [address] [place] [address]197 Protein [Mass/Vol] 8.3 g/dL High 6.3-8.0 [facility] Comment on above: Order Comment: Derek krishnamurthy Type: BLOOD SPECIMEN Ordering Facility: [facility] Address: [address] [place] [employer] [place], [place] [id number] Performed By: #### 2 4323-8 #### [facility] CLIA [id number] [address] [place] [address] Sodium [Moles/Vol] 143 mmol/L Normal 136-144 [facility] Comment on above: Order Comment: Speci men Type: BLOOD SPECIMEN Ordering Facility: [facility] Address: [address] [place] [address] Performed By: #### 2 4323-8 #### [facility] CLIA [id number] [address] [place] [address] Urea nitrogen [Mass/Vol] 22 mg/dL Normal 9-24 [facility] Comment on above: Order Comment: Speci men Type: BLOOD SPECIMEN Ordering Facility: [facility] Address: [place] [address] Performed By: #### 2 4323-8 #### [facility] CLIA [id number] [address] [place] [address] Office Visiton 04-03-2024 Follow-up visit [id number] Alessio Burns 1950 M Date Provider Department Center 04/03/2024 SYDNIE FOFANA [facility] Jessica [facility] Family History Problem Relation Age of Onset Diabetes Mother Heart disease Mother Heart disease Father Coronary artery disease Sister Family Status - Relation Status Age at Mother Father Sister Level of Service:15444 [place] OFFICE/OUTPATIENT ESTABLISHED LOW MDM 20 MIN Normal [facility] CT Abdomen and Pelvis W cont rast Beth 02-26-2024 IMPRESSION: 1. Nonspecific 2.1 cm hypodensity in [...] any questions regarding this interpretation, please call [phone]. If you are unable to reach us at the number above, please feel free to contact [facility] eRadiology at [phone]. DIVISION OF RADIOLOGY * * *Final Report* * * DATE OF EXAM: Feb 23 2024 1:20PM [facility] 0530 - CT ABD/PEL W [...] chest CT performed will be reported separately. Government Instructor (topogram) images: No additional findings. DIVISION OF RADIOLOGY Provider, [facility] - 02/26/2024 * * *Final Report* * * DATE OF EXAM: Feb 23 2024 1:20PM [facility] 0530 - CT ABD/PEL W [...] chest CT performed will be reported separately. Government Instructor (topogram) images: No additional findings. IMPRESSION IMPRESSION: 1. Nonspecific 2.1 cm hypodensity in [...] any questions regarding this interpretation, please call [phone]. If you are unable to reach us at the number above, please feel free to contact [facility]Radiology at [phone]. [facility] CT Chest W contrast Beth IMPRESSION: 1. Multiple new nodular opacities measuring up to 1 cm. Differential diagnosis includes a combination of infectious/inflammator y etiologies or neoplasm. Consider interval follow-up and/or [...] any questions regarding this interpretation, please call [phone]. If you are unable to reach us at the number above, please feel free to contact [facility]Radiology at [phone]. DIVISION OF RADIOLOGY * * *Final Report* * * DATE OF EXAM: Feb 23 2024 1:20PM [facility] 0539 - CT CHEST W [...] CT scan report for the abdomen findings. Government Instructor (topogram) images: No additional findings. DIVISION OF RADIOLOGY Provider, [facility] - 02/26/2024 * * *Final Report* * * DATE OF EXAM: Feb 23 2024 1:20PM [facility] 0539 - CT CHEST W [...] CT scan report for the abdomen findings. Government Instructor (topogram) images: No additional findings. IMPRESSION IMPRESSION: 1. Multiple new nodular opacities measuring up to 1 cm. Differential diagnosis includes a combination of infectious/inflammator y etiologies or neoplasm. Consider interval follow-up and/or [...] any questions regarding this interpretation, please call [phone]. If you are unable to reach us at the number above, please feel free to contact [facility]Radiology at [phone]. [facility] No Panel InformationOrdered By: Ccf Provider on 02-26-2024 [facility] CBC W Auto Differential pane l (Bld)on 02-23-2024 Basophils (Bld) [#/Vol] 0.10 10*3/uL [facility] Basophils/100 WBC (Bld) 0.9 % [facility] Differential cell count method Nom (Bld) Auto [facility] Eosinophils (Bld) [#/Vol] 0.43 10*3/uL [facility] Eosinophils/100 WBC (Bld) 4.0 % [facility] Erythrocyte distribution width (RBC) [Ratio] 13.3 % 11.5 - 15.0 % [facility] Hematocrit (Bld) [Volume fraction] 41.2 % 39.0 - 51.0 % [facility] Hemoglobin (Bld) [Mass/Vol] 13.5 g/dL 13.0 - 17.0 g/dL [facility] Immature granulocytes (Bld) [#/Vol] 0.06 10*3/uL NINF [facility] Immature granulocytes/100 WBC (Bld) 0.6 % [facility] Interpretation and review of laboratory results Abnormal [facility] Lymphocytes (Bld) [#/Vol] 2.03 10*3/uL [facility] Lymphocytes/100 WBC (Bld) 18.9 % [facility] MCH (RBC) [Entitic mass] 30.0 pg 26.0 - 34.0 pg [facility] MCHC (RBC) [Mass/Vol] 32.8 g/dL 30.5 - 36.0 g/dL [facility] MCV (RBC) [Entitic vol] 91.6 fL 80.0 - 100.0 fL [facility] Monocytes (Bld) [#/Vol] 1.14 10*3/uL High NINF [facility] Monocytes/100 WBC (Bld) 10.6 % [facility] Neutrophils (Bld) [#/Vol] 6.99 10*3/uL [facility] Neutrophils/100 WBC (Bld) 65.0 % [facility] Nucleated RBC (Bld) [#/Vol] NINF [facility] Nucleated RBC/100 WBC (Bld) [Ratio] 0.0 % /100 WBC [facility] Platelet mean volume (Bld) [Entitic vol] 9.2 fL 9.0 - 12.7 fL [facility] Platelets (Bld) [#/Vol] 245 10*3/uL [facility] RBC (Bld) [#/Vol] 4.50 10*6/uL 4.20 - 6.0 0 m/uL [facility] WBC (Bld) [#/Vol] 10.75 10*3/uL [facility] Comprehensive metabolic 2000 panelOrdered By: Dolly Muhammad on 02-23-2024 Albumin [Mass/Vol] 4.3 g/dL 3.9 - 4.9 g/dL [facility] ALP [Catalytic activity/Vol] 110 U/L 38 - 113 U/L [facility] ALT [Catalytic activity/Vol] 8 U/L Low 10 - 54 U/L [facility] Anion gap [Moles/Vol] 7 mmol/L Low 8 - 15 mmol/L [facility] AST [Catalytic activity/Vol] 11 U/L Low 14 - 40 U/L [facility] Bilirubin [Mass/Vol] 0.3 mg/dL 0.2 - 1 .3 mg/dL [facility] Calcium [Mass/Vol] 9.7 mg/dL 8.5 - 10. 2 mg/dL [facility] Chloride [Moles/Vol] 107 mmol/L 98 - 10 7 mmol/L [facility] CO2 [Moles/Vol] 27 mmol/L 22 - 30 mmol/L [facility] Creatinine [Mass/Vol] 1.22 mg/dL 0.73 - 1.22 mg/dL [facility] GFR/1.73 sq M.predicted among non-blacks MDRD (S/P/Bld) [Vol rate/Area] 63 mL/min/{1.73_m2} - PINF [facility] Comment on above: Estimated Glomerular Filtration Rate (eGFR) is calculated using the 2020 CKD-EPI creatinine equation. This equation utilizes serum creatinine, sex, and age as parameters. The creatinine assay has traceable calibration to isotope dilution-mass spectrometry. Refer to KDIGO guidelines for clinical interpretation. In patients with unstable renal function, e.g. those with acute kidney injury, the eGFR may not accurately reflect actual GFR. Glucose [Mass/Vol] 107 mg/dL High 74 - 99 mg/dL [facility] Comment on above: The [place] Diab[employer] s Association (ADA) provides guidance for cutoff values [...] Standards of Medical Care in Diabetes 2016, [place] [employer]. Diabetes Care. 2016.39(Suppl 1). Interpretation and review of laboratory results Abnormal [facility] Potassium [Moles/Vol] 4.8 mmol/L 3.7 - 5.1 mmol/L [facility] Protein [Mass/Vol] 8.1 g/dL High 6.3 - 8.0 g/dL [facility] Sodium [Moles/Vol] 141 mmol/L 136 - 144 mmol/L [facility] Urea nitrogen [Mass/Vol] 18 mg/dL 9 - 24 mg/dL [facility] No Panel Informationon 02-22 Radiology Study observation (narrative) [facility] CBC W Auto Differential pane l (Bld)on 11-10-2023 Basophils (Bld) [#/Vol] 0.07 10*3/uL [facility] Basophils/100 WBC (Bld) 0.8 % [facility] Differential cell count method Nom (Bld) Auto [facility] Eosinophils (Bld) [#/Vol] 0.33 10*3/uL [facility] Eosinophils/100 WBC (Bld) 3.7 % [facility] Erythrocyte distribution width (RBC) [Ratio] 13.2 % 11.5 - 15.0 % [facility] Hematocrit (Bld) [Volume fraction] 41.2 % 39.0 - 51.0 % [facility] Hemoglobin (Bld) [Mass/Vol] 13.9 g/dL 13.0 - 17.0 g/dL [facility] Immature granulocytes (Bld) [#/Vol] 0.05 10*3/uL [facility] Immature granulocytes/100 WBC (Bld) 0.6 % [facility] Interpretation and review of laboratory results Abnormal [facility] Lymphocytes (Bld) [#/Vol] 1.78 10*3/uL [facility] Lymphocytes/100 WBC (Bld) 19.9 % [facility] MCH (RBC) [Entitic mass] 30.8 pg 26.0 - 34.0 pg [facility] MCHC (RBC) [Mass/Vol] 33.7 g/dL 30.5 - 36.0 g/dL [facility] MCV (RBC) [Entitic vol] 91.2 fL 80.0 - 100.0 fL [facility] Monocytes (Bld) [#/Vol] 1.11 10*3/uL High [facility] Monocytes/100 WBC (Bld) 12.4 % [facility] Neutrophils (Bld) [#/Vol] 5.59 10*3/uL [facility] Neutrophils/100 WBC (Bld) 62.6 % [facility] Nucleated RBC (Bld) [#/Vol] NINF [facility] Nucleated RBC/100 WBC (Bld) [Ratio] 0.0 % /100 WBC [facility] Platelet mean volume (Bld) [Entitic vol] 9.1 fL 9.0 - 12.7 fL [facility] Platelets (Bld) [#/Vol] 267 10*3/uL [facility] RBC (Bld) [#/Vol] 4.52 10*6/uL 4.20 - 6.0 0 m/uL [facility] WBC (Bld) [#/Vol] 8.93 10*3/uL [facility] CT Chest W contrast Beth IMPRESSION: 1. There has been significant improvement [...] any questions regarding this interpretation, please call [phone]. If you are unable to reach us at the number above, please feel free to contact [facility] eRadiology at [phone]. DIVISION OF RADIOLOGY * * *Final Report* * * DATE OF EXAM: Nov 10 2023 12:51PM [facility] 0539 - CT CHEST W [...] performed concurrently and will be dictated separately. Government Instructor (topogram) images: No additional findings. DIVISION OF RADIOLOGY Provider, [facility] - 11/10/2023 * * *Final Report* * * DATE OF EXAM: Nov 10 2023 12:51PM [facility] 0539 - CT CHEST W [...] performed concurrently and will be dictated separately. Government Instructor (topogram) images: No additional findings. IMPRESSION IMPRESSION: 1. There has been significant improvement [...] any questions regarding this interpretation, please call [phone]. If you are unable to reach us at the number above, please feel free to contact [facility] eRadiology at [phone]. [facility] Radiology Study observation (narrative) [facility] CT Chest W contrast IVOrdere d By: Ccf Provider on 11-10-2023 [facility] Comprehensive metabolic 2000 panelOrdered By: Judd James on 11-10-2023 Albumin [Mass/Vol] 4.4 g/dL 3.9 - 4.9 g/dL [facility] ALP [Catalytic activity/Vol] 116 U/L High 38 - 113 U/L [facility] ALT [Catalytic activity/Vol] 7 U/L Low 10 - 54 U/L [facility] Anion gap [Moles/Vol] 11 mmol/L 9 - 18 mmol/L [facility] AST [Catalytic activity/Vol] 16 U/L 14 - 40 U/L [facility] Bilirubin [Mass/Vol] 0.4 mg/dL 0.2 - 1 .3 mg/dL [facility] Calcium [Mass/Vol] 9.8 mg/dL 8.5 - 10. 2 mg/dL [facility] Chloride [Moles/Vol] 103 mmol/L 97 - 10 5 mmol/L [facility] CO2 [Moles/Vol] 24 mmol/L 22 - 30 mmol/L [facility] Creatinine [Mass/Vol] 0.99 mg/dL 0.73 - 1.22 mg/dL [facility] GFR/1.73 sq M.predicted among non-blacks MDRD (S/P/Bld) [Vol rate/Area] 81 mL/min/{1.73_m2} - PINF [facility] Comment on above: Estimated Glomerular Filtration Rate (eGFR) is calculated using the 2020 CKD-EPI creatinine equation. This equation utilizes serum creatinine, sex, and age as parameters. The creatinine assay has traceable calibration to isotope dilution-mass spectrometry. Refer to KDIGO guidelines for clinical interpretation. In patients with unstable renal function, e.g. those with acute kidney injury, the eGFR may not accurately reflect actual GFR. Glucose [Mass/Vol] 96 mg/dL 74 - 99 mg/dL [facility] Comment on above: The [place] Diabete s Association (ADA) provides guidance for cutoff values [...] Standards of Medical Care in Diabetes 2016, [place] Diabetes Association. Diabetes Care. 2016.39(Suppl 1). Interpretation and review of laboratory results Abnormal [facility] Potassium [Moles/Vol] 3.8 mmol/L 3.7 - 5.1 mmol/L [facility] Protein [Mass/Vol] 8.2 g/dL High 6.3 - 8.0 g/dL [facility] Sodium [Moles/Vol] 138 mmol/L 136 - 144 mmol/L [facility] Urea nitrogen [Mass/Vol] 10 mg/dL 9 - 24 mg/dL [facility] PET+CT Guidance for localiza tion of tumor of Skull base to mid-thigh-- W 18F-FDG Beth 08-07-2023 IMPRESSION: 1. HEAD and NECK: No evidence [...] any questions regarding this interpretation, please call [phone]. If you are unable to reach us at the number above, please feel free to [facility] [phone]. DIVISION OF RADIOLOGY * * *Final Report* * * DATE [...] limits of low dose noncontrast CT scan. DIVISION OF RADIOLOGY Provider, [facility] - 08/07/2023 * * *Final Report* * [...] limits of low dose noncontrast CT scan. IMPRESSION IMPRESSION: 1. HEAD and NECK: No evidence [...] any questions regarding this interpretation, please call [phone]. If you are unable to reach us at the number above, please feel free to contact [facility] eRadiology at [phone]. [facility] PET+CT Guidance for localiza tion of tumor of Skull base to mid-thigh-- W 18F-FDG IVOrdered By: Ccf Provider on 08-07-2023 [facility] CBC W Auto Differential pane l (Bld)on 08-04-2023 Basophils (Bld) [#/Vol] 0.07 10*3/uL [facility] Basophils/100 WBC (Bld) 0.7 % [facility] Differential cell count method Nom (Bld) Auto [facility] Eosinophils (Bld) [#/Vol] 0.56 10*3/uL High [facility] Eosinophils/100 WBC (Bld) 6.0 % [facility] Erythrocyte distribution width (RBC) [Ratio] 13.2 % 11.5 - 15.0 % [facility] Hematocrit (Bld) [Volume fraction] 42.9 % 39.0 - 51.0 % [facility] Hemoglobin (Bld) [Mass/Vol] 13.9 g/dL 13.0 - 17.0 g/dL [facility] Immature granulocytes (Bld) [#/Vol] 0.09 10*3/uL [facility] Immature granulocytes/100 WBC (Bld) 1.0 % [facility] Interpretation and review of laboratory results Abnormal [facility] Lymphocytes (Bld) [#/Vol] 2.14 10*3/uL [facility] Lymphocytes/100 WBC (Bld) 22.8 % [facility] MCH (RBC) [Entitic mass] 30.0 pg 26.0 - 34.0 pg [facility] MCHC (RBC) [Mass/Vol] 32.4 g/dL 30.5 - 36.0 g/dL [facility] MCV (RBC) [Entitic vol] 92.7 fL 80.0 - 100.0 fL [facility] Monocytes (Bld) [#/Vol] 1.14 10*3/uL High [facility] Monocytes/100 WBC (Bld) 12.2 % [facility] Neutrophils (Bld) [#/Vol] 5.37 10*3/uL [facility] Neutrophils/100 WBC (Bld) 57.3 % [facility] Nucleated RBC (Bld) [#/Vol] [facility] Nucleated RBC/100 WBC (Bld) [Ratio] 0.0 % /100 WBC [facility] Platelet mean volume (Bld) [Entitic vol] 8.8 fL Low 9.0 - 12.7 fL [facility] Platelets (Bld) [#/Vol] 282 10*3/uL [facility] RBC (Bld) [#/Vol] 4.63 10*6/uL 4.20 - 6.0 0 m/uL [facility] WBC (Bld) [#/Vol] 9.37 10*3/uL [facility] Comprehensive metabolic 2000 panelOrdered By: Oanh Vivar on 08-04-2023 Albumin [Mass/Vol] 4.7 g/dL 3.9 - 4.9 g/dL [facility] ALP [Catalytic activity/Vol] 93 U/L 38 - 113 U/L [facility] ALT [Catalytic activity/Vol] 14 U/L 10 - 54 U/L [facility] Anion gap [Moles/Vol] 9 mmol/L 9 - 18 mmol/L [facility] AST [Catalytic activity/Vol] 18 U/L 14 - 40 U/L [facility] Bilirubin [Mass/Vol] 0.3 mg/dL 0.2 - 1 .3 mg/dL [facility] Calcium [Mass/Vol] 9.3 mg/dL 8.5 - 10. 2 mg/dL [facility] Chloride [Moles/Vol] 103 mmol/L 97 - 10 5 mmol/L [facility] CO2 [Moles/Vol] 26 mmol/L 22 - 30 mmol/L [facility] Creatinine [Mass/Vol] 1.06 mg/dL 0.73 - 1.22 mg/dL [facility] GFR/1.73 sq M.predicted among non-blacks MDRD (S/P/Bld) [Vol rate/Area] 75 mL/min/{1.73_m2} - PINF [facility] Comment on above: Estimated Glomerular Filtration Rate (eGFR) is calculated using the 2020 CKD-EPI creatinine equation. This equation utilizes serum creatinine, sex, and age as parameters. The creatinine assay has traceable calibration to isotope dilution-mass spectrometry. Refer to KDIGO guidelines for clinical interpretation. In patients with unstable renal function, e.g. those with acute kidney injury, the eGFR may not accurately reflect actual GFR. Glucose [Mass/Vol] 97 mg/dL 74 - 99 mg/dL [facility] Comment on above: The [place] Diab[employer] s Association (ADA) provides guidance for cutoff values [...] Standards of Medical Care in Diabetes 2016, [place] [employer]. Diabetes Care. 2016.39(Suppl 1). Interpretation and review of laboratory results Normal [facility] Potassium [Moles/Vol] 3.9 mmol/L 3.7 - 5.1 mmol/L [facility] Protein [Mass/Vol] 7.8 g/dL 6.3 - 8.0 g/dL [facility] Sodium [Moles/Vol] 138 mmol/L 136 - 144 mmol/L [facility] Urea nitrogen [Mass/Vol] 18 mg/dL 9 - 24 mg/dL [facility] GLUCOSE, BLOOD (POC)on 08-04 Glucose [Mass/Vol] 95 mg/dL 74 - 99 mg/dL [facility] Comment on above: Location:[facility], [address] [place] [address] , [place], [place], [facility] The Accu-Chek Inform II glucose meter has not been approved for testing on patients receiving intensive medical intervention or therapy and results from this point of care glucose test should not be used for patient management decisions in these cases. Inaccurate results may also occur from other interfering factors, such as N-acetylcysteine (blood concentrations of greater than 5mg/dL), galactose, extremes of hematocrit (<10 or >65), or high doses of ascorbic acid (vitamin C) greater than 3mg/dL. Consider alternate testing mechanisms (e.g. core lab, blood gas instrument) in the above situations. [facility] PET+CT Guidance for localiza tion of tumor of Skull base to mid-thigh-- W 18F-FDG Beth 08-04-2023 Radiology Study observation (narrative) [facility] Altaf 05-30-2023 L -- ---- Specimen: [id number] Received: 05/30/23 Status: WILMAR Garcíasusi Num: [id number] Spec Type: Surgical Subm Dr: Paramjit Spring MD Tissues: A GASTRIC FOR HP (GASTRIC HP) Procedures: NELDA, Gross/Micro L4, H PYLORI ---- Age/ Patient Sex Location Account Attending Physician ---- Alessio Burns 73/M [id number] Paramjit Spring MD ---- SPEC NUM: [id number] RECD: 05/30/23 STATUS: WILMAR GARCÍASusi NUM: [id number] EDIN: 05/30/23- [facility] DR: Paramjit Spring MD ENTERED: 05/30/[address]: SPEC TYPE: Surgical DEPT: S ORDERED: [...] reviewed. The microscopic examination confirms the diagnosis. ---- Specimen: [id number] Received: 05/30/23 Status: WILMAR [place] Num: [id number] Spec Type: Surgical Subm Dr: Paramjit Spring MD Tissues: A GASTRIC FOR HP (GASTRIC HP) Procedures: HE/2, Gross/Micro L4, H PYLORI ---- Patient: Alessio Burns [id number] (Continued) ---- Specimen: [id number] Received: 05/30/23 (Continued) Signed (signature on file) Andrea Davis MD 06/01/23 1014 ---- Specimen: [id number] Received: 05/30/23 Status: WILMAR [place] Num: [id number] Spec Type: Surgical Subm Dr: Paramjit Spring MD Tissues: A GASTRIC FOR HP (GASTRIC HP) Procedures: HE/2, Gross/Micro L4, H PYLORI ---- Patient: Alessio Burns [id number] (Continued) ---- Specimen: [id number] Received: 05/30/23 (Continued) CPT Codes 29624 [id number] ---- ---- Specimen: [id number] Received: 05/30/23 Status: WILMAR Clif[place] Num: [id number] Spec Type: Surgical Subm Dr: Paramjit Spring MD Tissues: A GASTRIC FOR HP (GASTRIC HP) Procedures: HE/2, Gross/Micro L4, H PYLORI ---- Patient: Alessio Burns [id number] (Continued) ---- Signed (signature on file) Andrea Davis MD 06/01/23 [facility] PET+CT Guidance for localiza tion of tumor of Skull base to mid-thigh-- W 18F-FDG Beth 04-30-2023 IMPRESSION: Head and Neck: * No evidence of FDG avid neoplastic process Chest: * Improvement of the bilateral pulmonary nodules, as described. Findings may be secondary to improving inflammatory/infectiou s process versus therapy response. Recommend correlation with [...] any questions regarding this interpretation, please call [phone]. If you are unable to reach us at the number above, please feel free to contact [facility] at [phone]. DIVISION OF RADIOLOGY * * *Final Report* * * DATE [...] attenuation correction and anatomic localization purposes, and acute/emergent/actiona ble findings are described. [CSS] CT Dose-Length Product [...] nodes: No abdominal or pelvic hypermetabolic lymphadenopathy. Mesentery/Peritoneum: No focal hypermetabolic lesion. Vasculature: Vascular patency cannot be assessed due to lack of IV contrast. There are atherosclerotic calcifications without aneurysmal dilation. Pelvis: No focal hypermetabolic lesion. Mildly enlarged prostate. Abdominopelvic wall: No hypermetabolic lesion. Fat-containing right inguinal hernia. MUSCULOSKELETAL: There are no hypermetabolic osseous lesions. Government Instructor (topogram) images: No additional findings. DIVISION OF RADIOLOGY Provider, [facility] - 04/30/2023 * * *Final Report* * * DATE [...] attenuation correction and anatomic localization purposes, and acute/emergent/actiona ble findings are described. [CSS] CT Dose-Length Product [...] nodes: No abdominal or pelvic hypermetabolic lymphadenopathy. Mesentery/Peritoneum: No focal hypermetabolic lesion. Vasculature: Vascular patency cannot be assessed due to lack of IV contrast. There are atherosclerotic calcifications without aneurysmal dilation. Pelvis: No focal hypermetabolic lesion. Mildly enlarged prostate. Abdominopelvic wall: No hypermetabolic lesion. Fat-containing right inguinal hernia. MUSCULOSKELETAL: There are no hypermetabolic osseous lesions. Government Instructor (topogram) images: No additional findings. IMPRESSION IMPRESSION: Head and Neck: * No evidence of FDG avid neoplastic process Chest: * Improvement of the bilateral pulmonary nodules, as described. Findings may be secondary to improving inflammatory/infectiou s process versus therapy response. Recommend correlation with [...] report reviewed and electronically signed by: LORRIE ARCE, (more content not included)... [facility] PET+CT Guidance for localiza tion of tumor of Skull base to mid-thigh-- W 18F-FDG IVOrdered By: Ccf Provider on 04-30-2023 [facility] CBC W Auto Differential pane l (Bld)on 04-28-2023 Basophils (Bld) [#/Vol] 0.06 10*3/uL [facility] Basophils/100 WBC (Bld) 0.7 % [facility] Differential cell count method Nom (Bld) Auto [facility] Eosinophils (Bld) [#/Vol] 0.32 10*3/uL [facility] Eosinophils/100 WBC (Bld) 3.5 % [facility] Erythrocyte distribution width (RBC) [Ratio] 13.8 % 11.5 - 15.0 % [facility] Hematocrit (Bld) [Volume fraction] 42.2 % 39.0 - 51.0 % [facility] Hemoglobin (Bld) [Mass/Vol] 13.8 g/dL 13.0 - 17.0 g/dL [facility] Immature granulocytes (Bld) [#/Vol] 0.06 10*3/uL [facility] Immature granulocytes/100 WBC (Bld) 0.7 % [facility] Interpretation and review of laboratory results Abnormal [facility] Lymphocytes (Bld) [#/Vol] 1.74 10*3/uL [facility] Lymphocytes/100 WBC (Bld) 19.0 % [facility] MCH (RBC) [Entitic mass] 29.7 pg 26.0 - 34.0 pg [facility] MCHC (RBC) [Mass/Vol] 32.7 g/dL 30.5 - 36.0 g/dL [facility] MCV (RBC) [Entitic vol] 90.9 fL 80.0 - 100.0 fL [facility] Monocytes (Bld) [#/Vol] 1.18 10*3/uL High NINF [facility] Monocytes/100 WBC (Bld) 12.9 % [facility] Neutrophils (Bld) [#/Vol] 5.78 10*3/uL [facility] Neutrophils/100 WBC (Bld) 63.2 % [facility] Nucleated RBC (Bld) [#/Vol] NINF [facility] Nucleated RBC/100 WBC (Bld) [Ratio] 0.0 % /100 WBC [facility] Platelet mean volume (Bld) [Entitic vol] 9.3 fL 9.0 - 12.7 fL [facility] Platelets (Bld) [#/Vol] 226 10*3/uL [facility] RBC (Bld) [#/Vol] 4.64 10*6/uL 4.20 - 6.0 0 m/uL [facility] WBC (Bld) [#/Vol] 9.14 10*3/uL [facility] Comprehensive metabolic 2000 panelOrdered By: Judd James on 04-28-2023 Albumin [Mass/Vol] 4.4 g/dL 3.9 - 4.9 g/dL [facility] ALP [Catalytic activity/Vol] 89 U/L 38 - 113 U/L [facility] ALT [Catalytic activity/Vol] 8 U/L Low 10 - 54 U/L [facility] Anion gap [Moles/Vol] 10 mmol/L 9 - 18 mmol/L [facility] AST [Catalytic activity/Vol] 15 U/L 14 - 40 U/L [facility] Bilirubin [Mass/Vol] 0.4 mg/dL 0.2 - 1 .3 mg/dL [facility] Calcium [Mass/Vol] 9.4 mg/dL 8.5 - 10. 2 mg/dL [facility] Chloride [Moles/Vol] 103 mmol/L 97 - 10 5 mmol/L [facility] CO2 [Moles/Vol] 24 mmol/L 22 - 30 mmol/L [facility] Creatinine [Mass/Vol] 1.20 mg/dL 0.73 - 1.22 mg/dL [facility] GFR/1.73 sq M.predicted among non-blacks MDRD (S/P/Bld) [Vol rate/Area] 64 mL/min/{1.73_m2} - PINF [facility] Comment on above: Estimated Glomerular Filtration Rate (eGFR) is calculated using the 2020 CKD-EPI creatinine equation. This equation utilizes serum creatinine, sex, and age as parameters. The creatinine assay has traceable calibration to isotope dilution-mass spectrometry. Refer to KDIGO guidelines for clinical interpretation. In patients with unstable renal function, e.g. those with acute kidney injury, the eGFR may not accurately reflect actual GFR. Glucose [Mass/Vol] 100 mg/dL High 74 - 99 mg/dL [facility] Comment on above: The [place] Diab[employer] Association (ADA) provides guidance for cutoff values [...] Standards of Medical Care in Diabetes 2016, [place] [employer]. Diabetes Care. 2016.39(Suppl 1). Interpretation and review of laboratory results Abnormal [facility] Potassium [Moles/Vol] 4.2 mmol/L 3.7 - 5.1 mmol/L [facility] Protein [Mass/Vol] 7.3 g/dL 6.3 - 8.0 g/dL [facility] Sodium [Moles/Vol] 137 mmol/L 136 - 144 mmol/L [facility] Urea nitrogen [Mass/Vol] 19 mg/dL 9 - 24 mg/dL [facility] GLUCOSE, BLOOD (POC)on 04-28 Glucose [Mass/Vol] 103 mg/dL Abnormal 74 - 99 mg/dL [facility] Comment on above: Location:[facility], [address] [place] [address] , [place], [place], [address] The Accu-Chek Inform II glucose meter has not been approved for testing on patients receiving intensive medical intervention or therapy and results from this point of care glucose test should not be used for patient management decisions in these cases. Inaccurate results may also occur from other interfering factors, such as N-acetylcysteine (blood concentrations of greater than 5mg/dL), galactose, extremes of hematocrit (<10 or >65), or high doses of ascorbic acid (vitamin C) greater than 3mg/dL. Consider alternate testing mechanisms (e.g. core lab, blood gas instrument) in the above situations. Interpretation and review of laboratory results Abnormal [facility] PET+CT Guidance for localiza tion of tumor of Skull base to mid-thigh-- W 18F-FDG Beth 04-28-2023 Radiology Study observation (narrative) [facility] PET+CT Guidance for localiza tion of tumor of Skull base to mid-thigh-- W 18F-FDG Beth 02-22-2023 IMPRESSION: HEAD/NECK: * No FDG avid neoplastic [...] any questions regarding this interpretation, please call [phone]. If you are unable to reach us at the number above, please feel free to contact [facility] e[facility]iology at [phone]. DIVISION OF RADIOLOGY * * *Final Report* * * DATE [...] - Background liver activity (max SUV): 3.6 Government Instructor (topogram) images: Unremarkable. HEAD AND NECK: Physiologic uptake in the visualized brain, extraocular muscles, parapharyngeal soft tissues, base of tongue, salivary glands, and vocal cords. Head & Neck: No focal tracer avid lesion. Lymph nodes: No tracer avid lymph nodes. Thyroid: No tracer avid lesion. CHEST: Lungs & Airways: Interval increase in size and number [...] Lymph Nodes: No tracer avid lymph nodes. Mesentery/Peritoneum: No tracer avid lesion. No ascites. Retroperitoneum: No tracer avid lesion. Vasculature: Atherosclerotic calcifications without an abdominal aortic aneurysm. Pelvis: No tracer avid lesion. Abdominal Wall: No tracer avid lesion. Fat-containing right inguinal hernia. BONES AND EXTREMITIES: No tracer avid lesion or suspicious osseous lesion. Multifocal degenerative osseous changes. DIVISION OF RADIOLOGY Provider, [facility] * * *Final Report* * * DATE [...] - Background liver activity (max SUV): 3.6 Government Instructor (topogram) images: Unremarkable. HEAD AND NECK: Physiologic uptake in the visualized brain, extraocular muscles, parapharyngeal soft tissues, base of tongue, salivary glands, and vocal cords. Head & Neck: No focal tracer avid lesion. Lymph nodes: No tracer avid lymph nodes. Thyroid: No tracer avid lesion. CHEST: Lungs & Airways: Interval increase in size and number [...] Lymph Nodes: No tracer avid lymph nodes. Mesentery/Peritoneum: No tracer avid lesion. No ascites. Retroperitoneum: No tracer avid lesion. Vasculature: Atherosclerotic calcifications without an abdominal aortic aneurysm. Pelvis: No tracer avid lesion. Abdominal Wall: No tracer avid lesion. Fat-containing right inguinal hernia. BONES AND EXTREMITIES: No tracer avid lesion or suspicious osseous lesion. Multifocal degenerative osseous changes. IMPRESSION IMPRESSION: HEAD/NECK: * No FDG avid neoplastic [...] any questions regarding this interpretation, please call [phone]. If you are unable to reach us at the number above, please feel free to contact [facility] eRadiology at [phone]. [facility] PET+CT Guidance for localiza tion of tumor of Skull base to mid-thigh-- W 18F-FDG IVOrdered By: Ccf Provider on 02-22-2023 [facility] GLUCOSE, BLOOD (POC)on 02-21 Glucose [Mass/Vol] 105 mg/dL Abnormal 74 - 99 mg/dL [facility] Comment on above: Location:[facility], [address] [place] [address] , [place], [place], [address] The Accu-Chek Inform II glucose meter has not been approved for testing on patients receiving intensive medical intervention or therapy and results from this point of care glucose test should not be used for patient management decisions in these cases. Inaccurate results may also occur from other interfering factors, such as N-acetylcysteine (blood concentrations of greater than 5mg/dL), galactose, extremes of hematocrit (<10 or >65), or high doses of ascorbic acid (vitamin C) greater than 3mg/dL. Consider alternate testing mechanisms (e.g. core lab, blood gas instrument) in the above situations. Interpretation and review of laboratory results Abnormal [facility] PET+CT Guidance for localiza tion of tumor of Skull base to mid-thigh-- W 18F-FDG Beth 02-21-2023 Radiology Study observation (narrative) [facility] ECHOCARDIO M/2D COMPLETEon 0 01-06-2023 ECHOCARDIO M/2D COMPLETE Patient: ALESSIO BURNS Exam Date: 01/06/2023 : 1950 Gender:M Ordering : MRS. KUN ORTA DIGITAL ASSOCIATE MEDIA DIRECTOR Admission #: [id number] Family : SHAIKH Tres ETIENNE . Order #: [id number] CLICK HERE TO VIEW EXAM ECHOCARDIOGRAM REPORT [...] Canales M.D. on 01/06/2023 at 16:36 Normal [facility] CT Abdomen and Pelvis W cont rast Beth 01-05-2023 IMPRESSION: 1. Interval increase in size of [...] any questions regarding this interpretation, please call [phone]. If you are unable to reach us at the number above, please feel free to contact [facility] at [phone]. DIVISION OF RADIOLOGY * * *Final Report* * * DATE OF EXAM: Jan 04 2023 1:47PM [facility] 0530 - CT ABD/PEL W [...] aortocaval node measures 5 mm, also stable. Mesentery/Peritoneum: No ascites or mass. Retroperitoneum: No [...] urinary bladder, possibly due to bladder outlet obstruction/prostatome gerald. No pelvic mass or fluid collection is seen. Bones/Soft Tissues: Multilevel degenerative changes noted in the lumbar spine. No destructive osseous lesions are seen. Superficial soft tissues are unremarkable. Lower thorax: A chest CT performed will be reported separately. Government Instructor (topogram) images: No additional findings. DIVISION OF RADIOLOGY [facility], [facility] 01/05/[facility]23 * * *Final Report* * * DATE OF EXAM: Jan 04 2023 1:47PM [facility] 0530 - CT ABD/PEL W [...] aortocaval node measures 5 mm, also stable. Mesentery/Peritoneum: No ascites or mass. Retroperitoneum: No [...] urinary bladder, possibly due to bladder outlet obstruction/prostatome gerald. No pelvic mass or fluid collection is seen. Bones/Soft Tissues: Multilevel degenerative changes noted in the lumbar spine. No destructive osseous lesions are seen. Superficial soft tissues are unremarkable. Lower thorax: A chest CT performed will be reported separately. Government Instructor (topogram) images: No additional findings. IMPRESSION IMPRESSION: 1. Interval increase in size of [...] any questions regarding this interpretation, please call [phone]. If you are unable to reach us at the number above, please feel free to contact [facility] at [phone]. [facility] CT Abdomen and Pelvis W cont rast IVOrdered By: Ccf Provider on 01-05-[address] [facility] [address] Chest W contrast Beth IMPRESSION: 1. Multiple bilateral pulmonary nodules. Some [...] any questions regarding this interpretation, please call [phone]. If you are unable to reach us at the number above, please feel free to contact [facility] at [phone]. DIVISION OF RADIOLOGY * * *Final Report* * * DATE OF EXAM: Jan 04 2023 1:47PM [facility] 0539 - CT CHEST W [...] was performed concurrently and is reported separately. Government Instructor (topogram) images: No additional findings. DIVISION OF RADIOLOGY Provider, [facility] - 01/05/2023 * * *Final Report* * * DATE OF EXAM: Jan 04 2023 1:47PM [facility] 0539 - CT CHEST W [...] was performed concurrently and is reported separately. Government Instructor (topogram) images: No additional findings. IMPRESSION IMPRESSION: 1. Multiple bilateral pulmonary nodules. Some of these have resolved, however others are either increased in size or new when compared to prior study. 2. No evidence of bulky intrathoracic adenopathy. Transcribe Date/Time: Jan 05 2023 9:56A Dictated by: FABIÁN MARINA MD This examination was interpreted and the report reviewed and electronically signed by: FBAIÁN MARINA MD on Jan 05 2023 10:26AM EST Thank you for allowing us to participate in the care of your patient. Should there be any questions regarding this interpretation, please call [phone]. If you are unable to reach us at the number above, please feel free to contact [facility] eRadiology at [phone]. [facility] CBC W Auto Differential pane l (Bld)on 01-04-2023 Basophils (Bld) [#/Vol] 0.08 10*3/uL [facility] Basophils/100 WBC (Bld) 0.8 % [facility] Differential cell count method Nom (Bld) Auto [facility] Eosinophils (Bld) [#/Vol] 0.34 10*3/uL [facility] Eosinophils/100 WBC (Bld) 3.4 % [facility] Erythrocyte distribution width (RBC) [Ratio] 13.2 % 11.5 - 15.0 % [facility] Hematocrit (Bld) [Volume fraction] 40.6 % 39.0 - 51.0 % [facility] Hemoglobin (Bld) [Mass/Vol] 13.4 g/dL 13.0 - 17.0 g/dL [facility] Immature granulocytes (Bld) [#/Vol] 0.06 10*3/uL [facility] Immature granulocytes/100 WBC (Bld) 0.6 % [facility] Interpretation and review of laboratory results Abnormal [facility] Lymphocytes (Bld) [#/Vol] 1.72 10*3/uL [facility] Lymphocytes/100 WBC (Bld) 17.1 % [facility] MCH (RBC) [Entitic mass] 30.0 pg 26.0 - 34.0 pg [facility] MCHC (RBC) [Mass/Vol] 33.0 g/dL 30.5 - 36.0 g/dL [facility] MCV (RBC) [Entitic vol] 91.0 fL 80.0 - 100.0 fL [facility] Monocytes (Bld) [#/Vol] 1.14 10*3/uL High NINF [facility] Monocytes/100 WBC (Bld) 11.3 % [facility] Neutrophils (Bld) [#/Vol] 6.74 10*3/uL [facility] Neutrophils/100 WBC (Bld) 66.8 % [facility] Nucleated RBC (Bld) [#/Vol] NINF [facility] Nucleated RBC/100 WBC (Bld) [Ratio] 0.0 % /100 WBC [facility] Platelet mean volume (Bld) [Entitic vol] 8.9 fL Low 9.0 - 12.7 fL [facility] Platelets (Bld) [#/Vol] 261 10*3/uL [facility] RBC (Bld) [#/Vol] 4.46 10*6/uL 4.20 - 6.0 0 m/uL [facility] WBC (Bld) [#/Vol] 10.08 10*3/uL [facility] Comprehensive metabolic 2000 panelOrdered By: Dolly Muhammad on 01-04-2023 Albumin [Mass/Vol] 4.1 g/dL 3.9 - 4.9 g/dL [facility] ALP [Catalytic activity/Vol] 100 U/L 38 - 113 U/L [facility] ALT [Catalytic activity/Vol] 8 U/L Low 10 - 54 U/L [facility] Anion gap [Moles/Vol] 7 mmol/L Low 9 - 18 mmol/L [facility] AST [Catalytic activity/Vol] 16 U/L 14 - 40 U/L [facility] Bilirubin [Mass/Vol] 0.4 mg/dL 0.2 - 1 .3 mg/dL [facility] Calcium [Mass/Vol] 9.2 mg/dL 8.5 - 10. 2 mg/dL [facility] Chloride [Moles/Vol] 104 mmol/L 97 - 10 5 mmol/L [facility] CO2 [Moles/Vol] 25 mmol/L 22 - 30 mmol/L [facility] Creatinine [Mass/Vol] 1.01 mg/dL 0.73 - 1.22 mg/dL [facility] GFR/1.73 sq M.predicted among non-blacks MDRD (S/P/Bld) [Vol rate/Area] 80 mL/min/{1.73_m2} - PINF [facility] Comment on above: Estimated Glomerular Filtration Rate (eGFR) is calculated using the 2020 CKD-EPI creatinine equation. This equation utilizes serum creatinine, sex, and age as parameters. The creatinine assay has traceable calibration to isotope dilution-mass spectrometry. Refer to KDIGO guidelines for clinical interpretation. In patients with unstable renal function, e.g. those with acute kidney injury, the eGFR may not accurately reflect actual GFR. Glucose [Mass/Vol] 105 mg/dL High 74 - 99 mg/dL [facility] Comment on above: The [place] Diab[employer] Association (ADA) provides guidance for cutoff values [...] Standards of Medical Care in Diabetes 2016, [place] [employer]. Diabetes Care. 2016.39(Suppl 1). Interpretation and review of laboratory results Abnormal [facility] Potassium [Moles/Vol] 4.0 mmol/L 3.7 - 5.1 mmol/L [facility] Protein [Mass/Vol] 7.6 g/dL 6.3 - 8.0 g/dL [facility] Sodium [Moles/Vol] 136 mmol/L 136 - 144 mmol/L [facility] Urea nitrogen [Mass/Vol] 12 mg/dL 9 - 24 mg/dL [facility] No Panel Informationon 01-04 Radiology Study observation (narrative) [facility] Comprehensive metabolic 2000 panelon 10-08-2022 Albumin [Mass/Vol] 4.1 g/dL 3.9 - 4.9 g/dL [facility] ALP [Catalytic activity/Vol] 87 U/L 38 - 113 U/L [facility] ALT [Catalytic activity/Vol] 11 U/L 10 - 54 U/L [facility] Anion gap [Moles/Vol] 12 mmol/L 9 - 18 mmol/L [facility] AST [Catalytic activity/Vol] 18 U/L 14 - 40 U/L [facility] Bilirubin [Mass/Vol] 0.3 mg/dL 0.2 - 1 .3 mg/dL [facility] Calcium [Mass/Vol] 9.6 mg/dL 8.5 - 10. 2 mg/dL [facility] Chloride [Moles/Vol] 102 mmol/L 97 - 10 5 mmol/L [facility] CO2 [Moles/Vol] 24 mmol/L 22 - 30 mmol/L [facility] Creatinine [Mass/Vol] 1.12 mg/dL 0.73 - 1.22 mg/dL [facility] Estimated Glomerular Filtration Rate 70 mL/min/1.73m >=60 mL/min/1.73m [facility] Glucose [Mass/Vol] 85 mg/dL 74 - 99 mg/dL [facility] Potassium [Moles/Vol] 4.4 mmol/L 3.7 - 5.1 mmol/L [facility] Protein [Mass/Vol] 7.5 g/dL 6.3 - 8.0 g/dL [facility] Sodium [Moles/Vol] 138 mmol/L 136 - 144 mmol/L [facility] Urea nitrogen [Mass/Vol] 16 mg/dL 9 - 24 mg/dL [facility] CBC W Auto Differential pane l (Bld)on 10-07-2022 Basophils (Bld) [#/Vol] 0.06 10*3/uL <0.11 k/uL [facility] Basophils/100 WBC (Bld) 0.6 % [facility] Differential cell count method Nom (Bld) Auto [facility] Eosinophils (Bld) [#/Vol] 0.48 10*3/uL High <0.46 k/uL [facility] Eosinophils/100 WBC (Bld) 4.8 % [facility] Erythrocyte distribution width (RBC) [Ratio] 13.0 % 11.5 - 15.0 % [facility] Hematocrit (Bld) [Volume fraction] 37.6 % Low 39.0 - 51.0 % [facility] Hemoglobin (Bld) [Mass/Vol] 12.4 g/dL Low 13.0 - 17.0 g/dL [facility] Immature granulocytes (Bld) [#/Vol] 0.05 10*3/uL <0.10 k/uL [facility] Immature granulocytes/100 WBC (Bld) 0.5 % [facility] Lymphocytes (Bld) [#/Vol] 1.94 10*3/uL 1.00 - 4.00 k/uL [facility] Lymphocytes/100 WBC (Bld) 19.4 % [facility] MCH (RBC) [Entitic mass] 30.3 pg 26.0 - 34.0 pg [facility] MCHC (RBC) [Mass/Vol] 33.0 g/dL 30.5 - 36.0 g/dL [facility] MCV (RBC) [Entitic vol] 91.9 fL 80.0 - 100.0 fL [facility] Monocytes (Bld) [#/Vol] 1.24 10*3/uL High <0.87 k/uL [facility] Monocytes/100 WBC (Bld) 12.4 % [facility] Neutrophils (Bld) [#/Vol] 6.22 10*3/uL 1.45 - 7.50 k/uL [facility] Neutrophils/100 WBC (Bld) 62.3 % [facility] Nucleated RBC (Bld) [#/Vol] <0.01 k/uL [facility] Nucleated RBC/100 WBC (Bld) [Ratio] 0.0 /100 WBC [facility] Platelet mean volume (Bld) [Entitic vol] 8.9 fL Low 9.0 - 12.7 fL [facility] Platelets (Bld) [#/Vol] 230 10*3/uL 150 - 400 k/uL [facility] [facility] RBC (Bld) [#/Vol] 4.09 10*6/uL Low 4.20 - 6.0 0 m/uL [facility] WBC (Bld) [#/Vol] 9.99 10*3/uL 3.70 - 11. 00 k/uL [facility] PET+CT Guidance for localiza tion of tumor of Skull base to mid-thigh-- W 18F-FDG Beth 10-02-2022 IMPRESSION: 1. Neck: No suspicious hypermetabolic foci [...] any questions regarding this interpretation, please call [phone]. If you are unable to reach us at the number above, please feel free to contact [facility] at [phone]. DIVISION OF RADIOLOGY * * *Final Report* * * DATE [...] SKELETON: There are no hypermetabolic osseous lesions. Government Instructor (topogram) images:No additional findings. - DIVISION OF RADIOLOGY Provider, aNkia Carrizales Didi - 10/02/2022 * * *Final Report* * * DATE [...] SKELETON: There are no hypermetabolic osseous lesions. Government Instructor (topogram) images:No additional findings. - IMPRESSION IMPRESSION: 1. Neck: No suspicious hypermetabolic foci [...] any questions regarding this interpretation, please call [phone]. If you are unable to reach us at the number above, please feel free to contact [facility]iology at [phone]. [facility] PET+CT Guidance for localiza tion of tumor of Skull base to mid-thigh-- W 18F-FDG IVOrdered By: Ccf Provider on 10-02-2022 [facility] GLUCOSE, BLOOD (POC)on 09-30 Glucose [Mass/Vol] 97 mg/dL 74 - 99 mg/dL [facility] Comment on above: Location:[facility], [address] [place] [address] , [place], [place], [facility] The Accu-Chek Inform II glucose meter has not been approved for testing on patients receiving intensive medical intervention or therapy and results from this point of care glucose test should not be used for patient management decisions in these cases. Inaccurate results may also occur from other interfering factors, such as N-acetylcysteine (blood concentrations of greater than 5mg/dL), galactose, extremes of hematocrit (<10 or >65), or high doses of ascorbic acid (vitamin C) greater than 3mg/dL. Consider alternate testing mechanisms (e.g. core lab, blood gas instrument) in the above situations. [facility] PET+CT Guidance for localiza tion of tumor of Skull base to mid-thigh-- W 18F-FDG Beth 09-30-2022 Radiology Study observation (narrative) [facility] CBC W Auto Differential pane l (Bld)on 09-15-2022 Basophils (Bld) [#/Vol] 0.06 10*3/uL [facility] Basophils/100 WBC (Bld) 0.6 % [facility] Differential cell count method Nom (Bld) Auto [facility] Eosinophils (Bld) [#/Vol] 0.35 10*3/uL [facility] Eosinophils/100 WBC (Bld) 3.8 % [facility] Erythrocyte distribution width (RBC) [Ratio] 12.8 % 11.5 - 15.0 % [facility] Hematocrit (Bld) [Volume fraction] 39.1 % 39.0 - 51.0 % [facility] Hemoglobin (Bld) [Mass/Vol] 13.0 g/dL 13.0 - 17.0 g/dL [facility] Immature granulocytes (Bld) [#/Vol] 0.07 10*3/uL [facility] Immature granulocytes/100 WBC (Bld) 0.8 % [facility] Interpretation and review of laboratory results Abnormal [facility] Lymphocytes (Bld) [#/Vol] 1.83 10*3/uL [facility] Lymphocytes/100 WBC (Bld) 19.7 % [facility] MCH (RBC) [Entitic mass] 30.6 pg 26.0 - 34.0 pg [facility] MCHC (RBC) [Mass/Vol] 33.2 g/dL 30.5 - 36.0 g/dL [facility] MCV (RBC) [Entitic vol] 92.0 fL 80.0 - 100.0 fL [facility] Monocytes (Bld) [#/Vol] 1.13 10*3/uL High [facility] Monocytes/100 WBC (Bld) 12.1 % [facility] Neutrophils (Bld) [#/Vol] 5.87 10*3/uL [facility] Neutrophils/100 WBC (Bld) 63.0 % [facility] Nucleated RBC (Bld) [#/Vol] [facility] Nucleated RBC/100 WBC (Bld) [Ratio] 0.0 % /100 WBC [facility] Platelet mean volume (Bld) [Entitic vol] 8.6 fL Low 9.0 - 12.7 fL [facility] Platelets (Bld) [#/Vol] 337 10*3/uL [facility] RBC (Bld) [#/Vol] 4.25 10*6/uL 4.20 - 6.0 0 m/uL [facility] WBC (Bld) [#/Vol] 9.31 10*3/uL [facility] This is an appended report. These results have been appended to a previously verified report. [facility] CT Chest W contrast Beth IMPRESSION: 1. Multiple bilateral pulmonary nodules. Several [...] any questions regarding this interpretation, please call [phone]. If you are unable to reach us at the number above, please feel free to contact [facility] at [phone]. DIVISION OF RADIOLOGY * * *Final Report* * * DATE OF EXAM: Sep 15 2022 2:24PM [facility] 0539 - CT CHEST W [...] No abnormality in the imaged upper abdomen. Government Instructor (topogram) images: No additional findings. DIVISION OF RADIOLOGY Provider, [facility] - 09/15/2022 * * *Final Report* * * DATE OF EXAM: Sep 15 2022 2:24PM [facility] 0539 - CT CHEST W [...] No abnormality in the imaged upper abdomen. Government Instructor (topogram) images: No additional findings. IMPRESSION IMPRESSION: 1. Multiple bilateral pulmonary nodules. Several [...] any questions regarding this interpretation, please call [phone]. If you are unable to reach us at the number above, please feel free to contact [facility] at [phone]. [facility] Radiology Study observation (narrative) [facility] CT Chest W contrast IVOrdere d By: Ccf Provider on 09-15-2022 [facility] Comprehensive metabolic 2000 panelOrdered By: Judd James on 09-15-2022 Albumin [Mass/Vol] 4.3 g/dL 3.9 - 4.9 g/dL [facility] ALP [Catalytic activity/Vol] 95 U/L 38 - 113 U/L [facility] ALT [Catalytic activity/Vol] 10 U/L 10 - 54 U/L [facility] Anion gap [Moles/Vol] 7 mmol/L Low 9 - 18 mmol/L [facility] AST [Catalytic activity/Vol] 15 U/L 14 - 40 U/L [facility] Bilirubin [Mass/Vol] 0.4 mg/dL 0.2 - 1 .3 mg/dL [facility] Calcium [Mass/Vol] 8.9 mg/dL 8.5 - 10. 2 mg/dL [facility] Chloride [Moles/Vol] 102 mmol/L 97 - 10 5 mmol/L [facility] CO2 [Moles/Vol] 24 mmol/L 22 - 30 mmol/L [facility] Creatinine [Mass/Vol] 1.07 mg/dL 0.73 - 1.22 mg/dL [facility] GFR/1.73 sq M.predicted among non-blacks MDRD (S/P/Bld) [Vol rate/Area] 74 mL/min/{1.73_m2} - PINF [facility] Comment on above: Estimated Glomerular Filtration Rate (eGFR) is calculated using the 2020 CKD-EPI creatinine equation. This equation utilizes serum creatinine, sex, and age as parameters. The creatinine assay has traceable calibration to isotope dilution-mass spectrometry. Refer to KDIGO guidelines for clinical interpretation. In patients with unstable renal function, e.g. those with acute kidney injury, the eGFR may not accurately reflect actual GFR. Glucose [Mass/Vol] 97 mg/dL 74 - 99 mg/dL [facility] Comment on above: The [place] Di[employer] Association (ADA) provides guidance for cutoff values [...] Standards of Medical Care in Diabetes 2016, [place] [employer]. Diabetes Care. 2016.39(Suppl 1). Interpretation and review of laboratory results Abnormal [facility] Potassium [Moles/Vol] 4.1 mmol/L 3.7 - 5.1 mmol/L [facility] Protein [Mass/Vol] 7.5 g/dL 6.3 - 8.0 g/dL [facility] Sodium [Moles/Vol] 133 mmol/L Low 136 - 144 mmol/L [facility] Urea nitrogen [Mass/Vol] 18 mg/dL 9 - 24 mg/dL [facility] CT Chest W contrast Beth IMPRESSION: 1. Interval development of innumerable bilateral pulmonary nodules. Findings may be infectious/inflammator y or neoplastic in nature. 2. No evidence of intrathoracic lymphadenopathy. Transcribe Date/Time: Jul 15 2022 8:35A Dictated by: FABIÁN MARINA MD This examination was interpreted and the report reviewed and electronically signed by: FABIÁN MARINA MD on Jul 15 2022 8:45AM EST Thank you for allowing us to participate in the care of your patient. Should there be any questions regarding this interpretation, please call [phone]. If you are unable to reach us at the number above, please feel free to contact [facility] at [phone]. DIVISION OF RADIOLOGY * * *Final Report* * * DATE OF EXAM: Jul 14 2022 2:22PM [facility] 0539 - CT CHEST W [...] Dose-length product (DLP) for this visit = 288 mGy*cm CT Dose Reduction Employed: Automated exposure control (AEC) Comparison: CT chest performed 03/31/2022 RESULT: Limitations: None. Lines, tubes, and devices: None. Lung parenchyma and airways: No dense lobar consolidation is visualized. There is mild centrilobular emphysema. Postsurgical changes are noted in keeping with right upper lobe lobectomy. There has been interval development of numerous new and enlarging bilateral pulmonary nodules. These include the following: Right middle lobe (4:44) 6 mm, new Right lower lobe (4:46) 5 mm, new Right lower lobe (4:67) 5 mm, new Right lower lobe (4:119) 5 mm, new Left upper lobe (4:60) 5 mm, new Left upper lobe (4:89) 7 mm, previously 4 mm Left lower lobe (4:133) 5 mm, new The central airways are widely patent. Pleural space: No pleural effusion. No pleural thickening. Lower neck, lymph nodes, and mediastinum: Subcentimeter mediastinal nodes are seen which are not enlarged by size criteria. No bulky intrathoracic adenopathy is seen. Heart, pericardium, and thoracic vessels: There is aneurysmal dilation of the ascending thoracic aorta measuring up to 4.9 cm. The main pulmonary artery is normal in caliber. The cardiac chambers are normal in size. No coronary artery atherosclerotic calcifications are noted, although the study is not optimized for coronary assessment. No pericardial effusion or thickening. Bones and soft tissues: Degenerative changes are noted in the thoracic spine. There is been a prior median sternotomy. No destructive osseous lesions are seen. There is bilateral gynecomastia. Superficial soft tissues are otherwise unremarkable. Upper abdomen: No abnormality in the imaged upper abdomen. Government Instructor (topogram) images: No additional findings. DIVISION OF RADIOLOGY Provider, [facility] - 07/15/2022 * * *Final Report* * * DATE OF EXAM: Jul 14 2022 2:22PM [facility] 0539 - CT CHEST W [...] Dose-length product (DLP) for this visit = 288 mGy*cm CT Dose Reduction Employed: Automated exposure control (AEC) Comparison: CT chest performed 03/31/2022 RESULT: Limitations: None. Lines, tubes, and devices: None. Lung parenchyma and airways: No dense lobar consolidation is visualized. There is mild centrilobular emphysema. Postsurgical changes are noted in keeping with right upper lobe lobectomy. There has been interval development of numerous new and enlarging bilateral pulmonary nodules. These include the following: Right middle lobe (4:44) 6 mm, new Right lower lobe (4:46) 5 mm, new Right lower lobe (4:67) 5 mm, new Right lower lobe (4:119) 5 mm, new Left upper lobe (4:60) 5 mm, new Left upper lobe (4:89) 7 mm, previously 4 mm Left lower lobe (4:133) 5 mm, new The central airways are widely patent. Pleural space: No pleural effusion. No pleural thickening. Lower neck, lymph nodes, and mediastinum: Subcentimeter mediastinal nodes are seen which are not enlarged by size criteria. No bulky intrathoracic adenopathy is seen. Heart, pericardium, and thoracic vessels: There is aneurysmal dilation of the ascending thoracic aorta measuring up to 4.9 cm. The main pulmonary artery is normal in caliber. The cardiac chambers are normal in size. No coronary artery atherosclerotic calcifications are noted, although the study is not optimized for coronary assessment. No pericardial effusion or thickening. Bones and soft tissues: Degenerative changes are noted in the thoracic spine. There is been a prior median sternotomy. No destructive osseous lesions are seen. There is bilateral gynecomastia. Superficial soft tissues are otherwise unremarkable. Upper abdomen: No abnormality in the imaged upper abdomen. Government Instructor (topogram) images: No additional findings. IMPRESSION IMPRESSION: 1. Interval development of innumerable bilateral pulmonary nodules. Findings may be infectious/inflammator y or neoplastic in nature. 2. No evidence of intrathoracic lymphadenopathy. Transcribe Date/Time: Jul 15 2022 8:35A Dictated by: FABIÁN MARINA MD This examination was interpreted and the report reviewed and electronically signed by: FABIÁN MARINA MD on Jul 15 2022 8:45AM EST Thank you for allowing us to participate in the care of your patient. Should there be any questions regarding this interpretation, please call [phone]. If you are unable to reach us at the number above, please feel free to contact [facility] at [phone]. [facility] CT Chest W contrast IVOrdere d By: Ccf Provider on 07-15-2022 [facility] CBC W Auto Differential pane l (Bld)on 07-14-2022 Basophils (Bld) [#/Vol] 0.07 10*3/uL [facility] Basophils/100 WBC (Bld) 0.7 % [facility] Differential cell count method Nom (Bld) Auto [facility] Eosinophils (Bld) [#/Vol] 0.56 10*3/uL [facility] Eosinophils/100 WBC (Bld) 5.6 % [facility] Erythrocyte distribution width (RBC) [Ratio] 13.2 % 11.5 - 15.0 % [facility] Hematocrit (Bld) [Volume fraction] 39.1 % 39.0 - 51.0 % [facility] Hemoglobin (Bld) [Mass/Vol] 12.9 g/dL Low 13.0 - 17.0 g/dL [facility] Immature granulocytes (Bld) [#/Vol] 0.07 10*3/uL [facility] Immature granulocytes/100 WBC (Bld) 0.7 % [facility] Interpretation and review of laboratory results Abnormal [facility] Lymphocytes (Bld) [#/Vol] 2.02 10*3/uL [facility] Lymphocytes/100 WBC (Bld) 20.1 % [facility] MCH (RBC) [Entitic mass] 30.7 pg 26.0 - 34.0 pg [facility] MCHC (RBC) [Mass/Vol] 33.0 g/dL 30.5 - 36.0 g/dL [facility] MCV (RBC) [Entitic vol] 93.1 fL 80.0 - 100.0 fL [facility] Monocytes (Bld) [#/Vol] 1.06 10*3/uL [facility] Monocytes/100 WBC (Bld) 10.5 % [facility] Neutrophils (Bld) [#/Vol] 6.29 10*3/uL [facility] Neutrophils/100 WBC (Bld) 62.4 % [facility] Nucleated RBC (Bld) [#/Vol] NINF [facility] Nucleated RBC/100 WBC (Bld) [Ratio] 0.0 % /100 WBC [facility] Platelet mean volume (Bld) [Entitic vol] 8.9 fL Low 9.0 - 12.7 fL [facility] Platelets (Bld) [#/Vol] 261 10*3/uL [facility] RBC (Bld) [#/Vol] 4.20 10*6/uL 4.20 - 6.0 0 m/uL [facility] WBC (Bld) [#/Vol] 10.07 10*3/uL [facility] This is an appended report. These results have been appended to a previously verified report. [facility] CT Chest W contrast Beth Radiology Study observation (narrative) [facility] Comprehensive metabolic 2000 panelOrdered By: Judd James on 07-14-2022 Albumin [Mass/Vol] 4.1 g/dL 3.9 - 4.9 g/dL [facility] ALP [Catalytic activity/Vol] 91 U/L 38 - 113 U/L [facility] ALT [Catalytic activity/Vol] 9 U/L Low 10 - 54 U/L [facility] Anion gap [Moles/Vol] 6 mmol/L Low 9 - 18 mmol/L [facility] AST [Catalytic activity/Vol] 17 U/L 14 - 40 U/L [facility] Bilirubin [Mass/Vol] 0.4 mg/dL 0.2 - 1 .3 mg/dL [facility] Calcium [Mass/Vol] 9.0 mg/dL 8.5 - 10. 2 mg/dL [facility] Chloride [Moles/Vol] 106 mmol/L High 97 - 10 5 mmol/L [facility] CO2 [Moles/Vol] 25 mmol/L 22 - 30 mmol/L [facility] Creatinine [Mass/Vol] 0.99 mg/dL 0.73 - 1.22 mg/dL [facility] GFR/1.73 sq M.predicted among non-blacks MDRD (S/P/Bld) [Vol rate/Area] 81 mL/min/{1.73_m2} - PINF [facility] Comment on above: Estimated Glomerular Filtration Rate (eGFR) is calculated using the 2020 CKD-EPI creatinine equation. This equation utilizes serum creatinine, sex, and age as parameters. The creatinine assay has traceable calibration to isotope dilution-mass spectrometry. Refer to KDIGO guidelines for clinical interpretation. In patients with unstable renal function, e.g. those with acute kidney injury, the eGFR may not accurately reflect actual GFR. Glucose [Mass/Vol] 98 mg/dL 74 - 99 mg/dL [facility] Comment on above: The [place] Diab[employer] Association (ADA) provides guidance for cutoff values [...] Standards of Medical Care in Diabetes 2016, [place] [employer]. Diabetes Care. 2016.39(Suppl 1). Interpretation and review of laboratory results Abnormal [facility] Potassium [Moles/Vol] 4.4 mmol/L 3.7 - 5.1 mmol/L [facility] Protein [Mass/Vol] 7.1 g/dL 6.3 - 8.0 g/dL [facility] Sodium [Moles/Vol] 137 mmol/L 136 - 144 mmol/L [facility] Urea nitrogen [Mass/Vol] 16 mg/dL 9 - 24 mg/dL [facility] COVID-19 SOFIAOrdered By: Crescencio Queen on 04-14-2022 SARS-CoV+SARS-CoV-2 (COVID-19) Ag IA.rapid Ql (Resp) Negative Negative [facility] Comment on above: This is a duplicate Rehana SARS Antigen (ELVIS) result to be used for statistical tracking purpose only. No Panel InformationOrdered By: Krzysztof Queen on 04-14-2022 SARS Antigen (LFIA) [facility] CBC W Auto Differential pane l (Bld)on 03-31-2022 Basophils (Bld) [#/Vol] 0.05 10*3/uL NINF [facility] Basophils/100 WBC (Bld) 0.5 % [facility] Differential cell count method Nom (Bld) Auto [facility] Eosinophils (Bld) [#/Vol] 0.30 10*3/uL [facility] Eosinophils/100 WBC (Bld) 2.7 % [facility] Erythrocyte distribution width (RBC) [Ratio] 13.9 % 11.5 - 15.0 % [facility] Hematocrit (Bld) [Volume fraction] 38.5 % Low 39.0 - 51.0 % [facility] Hemoglobin (Bld) [Mass/Vol] 12.5 g/dL Low 13.0 - 17.0 g/dL [facility] Immature granulocytes (Bld) [#/Vol] 0.04 10*3/uL [facility] Immature granulocytes/100 WBC (Bld) 0.4 % [facility] Interpretation and review of laboratory results Abnormal [facility] Lymphocytes (Bld) [#/Vol] 1.99 10*3/uL [facility] Lymphocytes/100 WBC (Bld) 18.0 % [facility] MCH (RBC) [Entitic mass] 29.2 pg 26.0 - 34.0 pg [facility] MCHC (RBC) [Mass/Vol] 32.5 g/dL 30.5 - 36.0 g/dL [facility] MCV (RBC) [Entitic vol] 90.0 fL 80.0 - 100.0 fL [facility] Monocytes (Bld) [#/Vol] 1.10 10*3/uL [facility] Monocytes/100 WBC (Bld) 10.0 % [facility] Neutrophils (Bld) [#/Vol] 7.55 10*3/uL High [facility] Neutrophils/100 WBC (Bld) 68.4 % [facility] Nucleated RBC (Bld) [#/Vol] [facility] Nucleated RBC/100 WBC (Bld) [Ratio] 0.0 % /100 WBC [facility] Platelet mean volume (Bld) [Entitic vol] 8.9 fL Low 9.0 - 12.7 fL [facility] Platelets (Bld) [#/Vol] 242 10*3/uL [facility] RBC (Bld) [#/Vol] 4.28 10*6/uL 4.20 - 6.0 0 m/uL [facility] WBC (Bld) [#/Vol] 11.03 10*3/uL [facility] This is an appended report. These results have been appended to a previously verified report. [facility] CT Chest W contrast Beth IMPRESSION: 1. Interval resolution of previously noted groundglass opacities. 2. New reticulonodular opacities in the left upper lobe and new subcentimeter right lower lobe nodular opacity. Consider interval follow-up. 3. Other subcentimeter nodular opacities measuring less than 5 mm, stable since 10/22/21. Transcribe Date/Time: Mar 31 2022 3:09P Dictated by: ARNEL SAUCEDA MD This examination was interpreted and the report reviewed and electronically signed by: ARNEL SAUCEDA MD on Mar 31 2022 4:14PM EST Thank you for allowing us to participate in the care of your patient. Should there be any questions regarding this interpretation, please call [phone]. If you are unable to reach us at the number above, please feel free to contact [facility] at [phone]. [email or web address] E_DIVISION OF RADIOLOGY * * *Final Report* * * DATE OF EXAM: Mar 31 2022 2:15PM [facility] 0539 - CT CHEST W IVCON / PROCEDURE REASON: multiple diagnoses * * * * Physician Interpretation * * * * RESULT: EXAMINATION: CHEST CT WITH CONTRAST CLINICAL HISTORY: Non-small cell lung cancer (NSCLC), monitor Technique: Spiral CT acquisition of the chest from the thoracic inlet to the upper abdomen following IV contrast. MQ: CTCW_6 Contrast: 50 mL Omnipaque [address] Radiation dose: Integrated Dose-length product (DLP) for this visit = 326 mGy*cm CT Dose Reduction Employed: Automated exposure control (AEC) Comparison: 10/22/21 RESULT: Limitations: None. Lines, tubes, and devices: None. Lung parenchyma and airways: Mild emphysematous changes of the lungs. Postoperative changes compatible with a right upper lobe lobectomy. New reticulonodular opacities in the left upper lobe (3:86). Previously described groundglass opacities have resolved. New 4 mm nodular opacity in the right lung (3:100). Small subcentimeter nodular opacities measuring less than 5 mm, stable. For example: Right lung (3:72) Left lung (3: 54, 69, 117) Pleural space: No pleural effusion. No pleural thickening. Lower neck, lymph nodes, and mediastinum: The imaged thyroid gland is normal. No lymphadenopathy in the supraclavicular, axillary, mediastinal, or hilar regions. Heart, pericardium, and thoracic vessels: Borderline aneurysmal enlargement of the ascending thoracic aorta measuring 5.0 cm in diameter. Postoperative changes of the anterior chest. Heart is mildly moderately enlarged. No pericardial effusion or thickening. Bones and soft tissues: Deformities of several bilateral ribs most likely related to postoperative change or sequela of prior trauma. No new osseous abnormalities. Upper abdomen: Please refer to the abdomen CT scan report for the abdomen findings. Government Instructor (topogram) images: No additional findings. [email or web address] E_DIVISION OF RADIOLOGY Provider, [facility]22 * * *Final Report* * * DATE OF EXAM: Mar 31 2022 2:15PM [facility] 0539 - CT CHEST W IVCON / PROCEDURE REASON: multiple diagnoses * * * * Physician Interpretation * * * * RESULT: EXAMINATION: CHEST CT WITH CONTRAST CLINICAL HISTORY: Non-small cell lung cancer (NSCLC), monitor Technique: Spiral CT acquisition of the chest from the thoracic inlet to the upper abdomen following IV contrast. MQ: CTCW_6 Contrast: 50 mL Omnipaque [address] Radiation dose: Integrated Dose-length product (DLP) for this visit = 326 mGy*cm CT Dose Reduction Employed: Automated exposure control (AEC) Comparison: 10/22/21 RESULT: Limitations: None. Lines, tubes, and devices: None. Lung parenchyma and airways: Mild emphysematous changes of the lungs. Postoperative changes compatible with a right upper lobe lobectomy. New reticulonodular opacities in the left upper lobe (3:86). Previously described groundglass opacities have resolved. New 4 mm nodular opacity in the right lung (3:100). Small subcentimeter nodular opacities measuring less than 5 mm, stable. For example: Right lung (3:72) Left lung (3: 54, 69, 117) Pleural space: No pleural effusion. No pleural thickening. Lower neck, lymph nodes, and mediastinum: The imaged thyroid gland is normal. No lymphadenopathy in the supraclavicular, axillary, mediastinal, or hilar regions. Heart, pericardium, and thoracic vessels: Borderline aneurysmal enlargement of the ascending thoracic aorta measuring 5.0 cm in diameter. Postoperative changes of the anterior chest. Heart is mildly moderately enlarged. No pericardial effusion or thickening. Bones and soft tissues: Deformities of several bilateral ribs most likely related to postoperative change or sequela of prior trauma. No new osseous abnormalities. Upper abdomen: Please refer to the abdomen CT scan report for the abdomen findings. Government Instructor (topogram) images: No additional findings. IMPRESSION IMPRESSION: 1. Interval resolution of previously noted groundglass opacities. 2. New reticulonodular opacities in the left upper lobe and new subcentimeter right lower lobe nodular opacity. Consider interval follow-up. 3. Other subcentimeter nodular opacities measuring less than 5 mm, stable since 10/22/21. Transcribe Date/Time: Mar 31 2022 3:09P Dictated by: ARNEL SAUCEDA MD This examination was interpreted and the report reviewed and electronically signed by: ARNEL SAUCEDA MD on Mar 31 2022 4:14PM EST Thank you for allowing us to participate in the care of your patient. Should there be any questions regarding this interpretation, please call [phone]. If you are unable to reach us at the number above, please feel free to contact [facility] eRadiology at [phone]. [facility] Radiology Study observation (narrative) [facility] CT Chest W contrast IVOrdere d By: [facility] Provider on 03-31-2022 [facility] Comprehensive metabolic 2000 panelOrdered By: Judd James on 03-31-2022 Albumin [Mass/Vol] 4.1 g/dL 3.9 - 4.9 g/dL [facility] ALP [Catalytic activity/Vol] 82 U/L 38 - 113 U/L [facility] ALT [Catalytic activity/Vol] 10 U/L 10 - 54 U/L [facility] Anion gap [Moles/Vol] 8 mmol/L Low 9 - 18 mmol/L [facility] AST [Catalytic activity/Vol] 19 U/L 14 - 40 U/L [facility] Bilirubin [Mass/Vol] 0.4 mg/dL 0.2 - 1 .3 mg/dL [facility] Calcium [Mass/Vol] 9.2 mg/dL 8.5 - 10. 2 mg/dL [facility] Chloride [Moles/Vol] 105 mmol/L 97 - 10 5 mmol/L [facility] CO2 [Moles/Vol] 25 mmol/L 22 - 30 mmol/L [facility] Creatinine [Mass/Vol] 1.02 mg/dL 0.73 - 1.22 mg/dL [facility] GFR/1.73 sq M.predicted among non-blacks MDRD (S/P/Bld) [Vol rate/Area] 79 mL/min/{1.73_m2} - PINF [facility] Comment on above: Estimated Glomerular Filtration Rate (eGFR) is calculated using the 2020 CKD-EPI creatinine equation. This equation utilizes serum creatinine, sex, and age as parameters. The creatinine assay has traceable calibration to isotope dilution-mass spectrometry. Refer to KDIGO guidelines for clinical interpretation. In patients with unstable renal function, e.g. those with acute kidney injury, the eGFR may not accurately reflect actual GFR. Glucose [Mass/Vol] 101 mg/dL High 74 - 99 mg/dL [facility] Comment on above: The [place] Diab[employer] s Association (ADA) provides guidance for cutoff values [...] Standards of Medical Care in Diabetes 2016, [place] [employer]. Diabetes Care. 2016.39(Suppl 1). Interpretation and review of laboratory results Abnormal [facility] Potassium [Moles/Vol] 4.8 mmol/L 3.7 - 5.1 mmol/L [facility] Protein [Mass/Vol] 7.1 g/dL 6.3 - 8.0 g/dL [facility] Sodium [Moles/Vol] 138 mmol/L 136 - 144 mmol/L [facility] Urea nitrogen [Mass/Vol] 12 mg/dL 9 - 24 mg/dL [facility] ECHOCARDIO M/2D COMPLETEon 0 03-15-2022 ECHOCARDIO M/2D COMPLETE Patient: ALESSIO BURNS Exam Date: 03/15/2022 : 1950 Gender:M Ordering : DR SYDNIE AMBROSIO M.D. Admission #: [id number] Family : SHAIKH Tres ETIENNE . Order #: [id number] CLICK HERE TO VIEW EXAM ECHOCARDIOGRAM REPORT [...] Area(A4C): 19.90 cm2 Left Atrium Systolic Volume(A2C): 33465 mm3 Left Atrium Systolic Volume(A4C): 46346 mm3 Mitral Valve MV E to A [...] Ambrosio M.D. on 03/15/2022 at 18:52 Normal [facility] PROF CHEM 8 (BAS METB)on Anion gap [Moles/Vol] 10.9 mmol/L Normal [facility] Comment on above: Performed By: #### B MP #### [facility] [address] [place] [address] Dr. Denae Davis Calcium [Mass/Vol] 9.0 mg/dL Normal 8.5-10.1 [facility] Comment on above: Performed By: #### B MP #### [facility] [address] [address] [address] Denae Davis Chloride [Moles/Vol] 104 mmol/L Normal 98-107 [facility] Comment on above: Performed By: #### B MP #### [facility] [address] [address] [address] Denae Davis CO2 [Moles/Vol] 28.3 mmol/L Normal 21.0-32.0 [facility] Comment on above: Performed By: #### B MP #### [facility] [address] [address] [address] Denae Davis Creatinine [Mass/Vol] 1.15 mg/dL Normal 0.70-1.30 [facility] Comment on above: Performed By: #### B MP #### [facility] [address] [place] [address] Dr. Denae Davis EGFR-AF BELARUSIAN >60 Normal >=60 [facility] Comment on above: Performed By: #### B MP #### [facility] [address] [place] [address] Dr. Denae Davis EGFR-NON AF BELARUSIAN >60 Normal >=60 [facility] Comment on above: Performed By: #### B MP #### [facility] [address] [place] [address] Dr. Denae Davis Glucose [Mass/Vol] 103 mg/dL Normal 74-106 [facility] Comment on above: Performed By: #### B MP #### [facility] [address] [place] [address] Dr. Denae Davis Potassium [Moles/Vol] 4.2 mmol/L Normal 3.5-5.1 [facility] Comment on above: Performed By: #### B MP #### [facility] [address] [place] [address] Dr. Denae Davis Sodium [Moles/Vol] 139 mmol/L Normal 136-145 [facility] Comment on above: Performed By: #### B MP #### [facility] [address] [place] [address] Dr. Denae Davis Urea nitrogen [Mass/Vol] 17.0 mg/dL Normal 7.0-18.0 [facility] Comment on above: Performed By: #### B MP #### [facility] [address] [address] [address] Denae Davis Urea nitrogen/Creatinine [Mass ratio] 14.8 mg/mg Normal [facility] Comment on above: Performed By: #### B MP #### [facility] [address] [place] [address] Dr. Denae Davis ANES POSTPROC EVALon 022 ANES POSTPROC EVAL HNO ID: [id number] Author: Alena Mortensen MD Service: Anesthesiology Author Type: Anesthesiologist Type: Anesthesia Postprocedure Evaluation Filed: 01/10/2022 1:23 PM Note Text: POST ANESTHESIA EVALUATION NOTE : 1950 Procedure Summary Date: 01/10/22 Room / Location: [place] [address] / OR Anesthesia Start: 1050 Anesthesia Stop: [...] January 10, 2022 TIME: 1:22 PM CSN: [id number] [facility] ANES PRE-OPon 01-10-2022 ANES PRE-OP HNO ID: [id number] Author: Alena Mortensen MD Service: Anesthesiology Author [...] (97.5 ?F) 01/10/22915 SpO2 100 % 01/10/22915 Facility-Administered Medications as of 01/10/2022 Medication Dose Route [...] mg by mouth three times daily. - budesonide-formoterol (SYMBICORT) 160-4.5 mcg/actuation inhaler Symbicort 160 [...] January 10, 2022 TIME: 10:11 AM CSN: [id number] [facility] BRIEF OP NOTon 01-10-2022 BRIEF OP NOT HNO ID: [id number] Author: Natacha Melo MD Service: General Surgery Author Type: Resident Type: Brief Op Note Filed: 01/10/2022 12:20 PM Note Text: BRIEF OPERATIVE / PROCEDURE NOTE LOG ID: [id number] SURGERY/PROCEDURE DATE: 01/10/2022 INCISION/PROCEDURE START TIME: 11:28 AM INCISION CLOSE/PROCEDURE END TIME: 12:16 PM SURGEON(S)/PROCEDURALI ST(S) AND LOT TECHNICIAN(S): Surgeon(s) and Role: * Bj Mota MD - Primary * Natacha Melo MD - Resident - Assisting No Additional Staff SURGERY/PROCEDURE(S): Diagnostic laparoscopy, liver excisional biopsy, intraoperative liver ultrasound ANESTHESIA: General FINDINGS: Cystic mucinous mass consistent with lesion on imaging ESTIMATED BLOOD LOSS: 20 mls SPECIMENS: Liver lesion COMPLICATIONS: None PRE-OP/PRE-PROCEDURE DIAGNOSIS: Liver mass POST-OP/POST-PROCEDURE DIAGNOSIS: Same as Preop SIGNATURE: Natacha Melo MD PATIENT NAME: Alessio Burns DATE: January 10, 2022 TIME: 12:19 PM [facility] NURSING PROGon 01-10-2022 NURSING PROG HNO ID: [id number] Author: Carmen Huizar RN Service: ? Author Type: Registered Nurse Type: Nursing Progress Note Filed: 01/10/2022 8:54 AM Note Text: PATIENT EDUCATION TOPIC: PROCEDURE / SURGERY: Pre-op Teaching: Logistics Protocols PATIENT NAME: Alessio Burns PATIENT LOCATION: OR POOL/FV OR POOL READINESS TO LEARN COGNITIVE ABILITY: Alert and oriented MOTIVATION TO LEARN: Eager FAMILY SUPPORT: None - Unavailable/disinteres toro INSTRUCTION PROVIDED TO: Patient PATIENT LEARNS BEST [...] (RECOMMENDATION): None Electronically Signed By: Carmen Huizar [facility] OPERATIVE NOon 01-10-2022 OPERATIVE NO HNO ID: [id number] Author: Bj Mota MD Service: General Surgery Author Type: Physician Type: Operative Report Filed: 01/12/2022 2:26 PM Note Text: [facility] - Operative Report ALESSIO BURNS : 1950 AGE: 71. SEX: M PATIENT TYPE: A HOSP SV: [facility] LOCATION: [facility] ATTENDING PHYSICIAN: Bj Mota MD CSN NUMBER: [id number] DATE OF SURGERY/PROCEDURE: 01/10/2022 INCISION/PROCEDURE START TIME: 11:28 AM INCISION CLOSE/PROCEDURE END TIME: 12:16 PM PREOPERATIVE DIAGNOSIS: Liver mass. POSTOPERATIVE DIAGNOSIS: Liver mass. SURGEON: Bj Mota MD LOT TECHNICIAN: Radha Melo MD. SURGERY/PROCEDURE: 1. Diagnostic laparoscopy. [...] of the liver. [facility] OPERATIVE FINDINGS: Cystic [...] in throughout the operation. Bj Mota MD TA:[id number] /[id number] [facility] PT EDon 01-10-2022 PT ED HNO ID: [id number] Author: Kajal Acosta RN Service: Nursing Author [...] TO PATIENT: Post op discharge instructions. Normal [facility] SURGICAL PATHOLOGYon CASE REPORT [facility] Comment on above: Order Comment: Derek krishnamurthy Type: TISSUE SPECIMEN Ordering Facility: [facility] Address: [address] [place] [address] Result Comment: Surg ical Pathology Report Case: [id number] Authorizing Provider: Bj Mota MD Collected: 01/10/2022 11:56 AM Ordering Location: [facility] Received: 01/10/2022 01:36 PM Operating Room Pathologist: Miguel Darden MD Specimen: LIVER PARTIAL RESECTION, liver mass Performed By: #### S #### [facility] CLIA [id number] [address] [place] [address] DIAGNOSIS COMMENT Normal [facility] Comment on above: Order Comment: Derek krishnamurthy Type: TISSUE SPECIMEN Ordering Facility: [facility] Address: [address] [place] [address] Result Comment: We n ote the clinical [...] of fibrosis. Performed By: #### S #### [facility] CLIA [id number] [address] [place] [address] FINAL DIAGNOSIS [facility] Comment on above: Order Comment: Derek krishnamurthy Type: TISSUE SPECIMEN Ordering Facility: [facility] Address: [address] [place], [place] [id number] Result Comment: Viktoriya deras, partial resection: - Ciliated foregut cyst. - Parenchymal margin is not involved. - Hepatic parenchyma with mild portal inflammation. AEB/tg 01/13/2022 Performed By: #### S #### [facility] CLIA [id number] [address] [place] [address] [place] FINAL PERFORMING LAB Normal [facility] Comment on above: Order Comment: Speci men Type: TISSUE SPECIMEN Ordering Facility: [facility] Address: [address] [place] [address] Result Comment: Diag nostic interpretation performed at [facility], [address] [place] [address] CLIA# [id number] [employer] Stock Grader: Denzel Vela M.D. Performed By: #### S #### [facility] CLIA [id number] [address] [place] [address] GROSS DESCRIPTION Normal [facility] Comment on above: Order Comment: Speci men Type: TISSUE SPECIMEN Ordering Facility: [facility] Address: [address] [place] [address] Result Comment: A. L IVER PARTIAL RESECTION. [...] remainder of specimen. Gross examination performed at [facility], [address] [place] [address] CLIA# [id number] [facility] January 12, 2022 9:23 AM Performed By: #### S #### [facility] CLIA [id number] [address] [place] [address] [place] Basic metabolic 2000 panelon 01-05-2022 Anion gap [Moles/Vol] 13 mmol/L 9 - 18 mmol/L [facility] Calcium [Mass/Vol] 9.8 mg/dL 8.5 - 10. 2 mg/dL [facility] Chloride [Moles/Vol] 101 mmol/L 97 - 10 5 mmol/L [facility] CO2 [Moles/Vol] 24 mmol/L 22 - 30 mmol/L [facility] Creatinine [Mass/Vol] 0.90 mg/dL 0.73 - 1.22 mg/dL [facility] Estimated Glomerular Filtration Rate 92 mL/min/1.73m >=60 mL/min/1.73m [facility] Glucose [Mass/Vol] 101 mg/dL High 74 - 99 mg/dL [facility] Potassium [Moles/Vol] 4.5 mmol/L 3.7 - 5.1 mmol/L [facility] Sodium [Moles/Vol] 138 mmol/L 136 - 144 mmol/L [facility] Urea nitrogen [Mass/Vol] 12 mg/dL 9 - 24 mg/dL [facility] CBC W Auto Differential pane l (Bld)on 01-05-2022 Abs Immature Gran 0.06 k/uL <0.10 k/uL [facility] Basophils (Bld) [#/Vol] 0.05 10*3/uL <0.11 k/uL [facility] Basophils/100 WBC (Bld) 0.5 % [facility] Differential cell count method Nom (Bld) Auto [facility] Eosinophils (Bld) [#/Vol] 0.28 10*3/uL <0.46 k/uL [facility] Eosinophils/100 WBC (Bld) 2.6 % [facility] Erythrocyte distribution width (RBC) [Ratio] 17.2 % High 11.5 - 15.0 % [facility] Hematocrit (Bld) [Volume fraction] 39.3 % 39.0 - 51.0 % [facility] Hemoglobin (Bld) [Mass/Vol] 12.8 g/dL Low 13.0 - 17.0 g/dL [facility] Immature Gran % 0.6 % [facility] Lymphocytes (Bld) [#/Vol] 1.60 10*3/uL 1.00 - 4.00 k/uL [facility] Lymphocytes/100 WBC (Bld) 15.1 % [facility] MCH (RBC) [Entitic mass] 28.8 pg 26.0 - 34.0 pg [facility] MCHC (RBC) [Mass/Vol] 32.6 g/dL 30.5 - 36.0 g/dL [facility] MCV (RBC) [Entitic vol] 88.5 fL 80.0 - 100.0 fL [facility] Monocytes (Bld) [#/Vol] 1.02 10*3/uL High <0.87 k/uL [facility] Monocytes/100 WBC (Bld) 9.6 % [facility] Neutrophils (Bld) [#/Vol] 7.59 10*3/uL High 1.45 - 7.50 k/uL [facility] Neutrophils/100 WBC (Bld) 71.6 % [facility] Nucleated RBC (Bld) [#/Vol] 10*3/uL <0.01 k/uL [facility] Nucleated RBC/100 WBC (Bld) [Ratio] 0.0 /100 WBC [facility] Platelet mean volume (Bld) [Entitic vol] 9.4 fL 9.0 - 12.7 fL [facility] Platelets (Bld) [#/Vol] 251 10*3/uL 150 - 400 k/uL [facility] RBC (Bld) [#/Vol] 4.44 10*6/uL 4.20 - 6.0 0 m/uL [facility] WBC (Bld) [#/Vol] 10.60 10*3/uL 3.70 - 11 .00 k/uL [facility] CBC W Auto Differential pane l (Bld)on 12-10-2021 Basophils (Bld) [#/Vol] 0.06 10*3/uL NINF [facility] Basophils/100 WBC (Bld) 0.7 % [facility] Differential cell count method Nom (Bld) Auto [facility] Eosinophils (Bld) [#/Vol] 0.90 10*3/uL High [facility] Eosinophils/100 WBC (Bld) 9.8 % [facility] Erythrocyte distribution width (RBC) [Ratio] 18.1 % High 11.5 - 15.0 % [facility] Hematocrit (Bld) [Volume fraction] 34.8 % Low 39.0 - 51.0 % [facility] Hemoglobin (Bld) [Mass/Vol] 10.8 g/dL Low 13.0 - 17.0 g/dL [facility] Immature granulocytes (Bld) [#/Vol] 0.03 10*3/uL [facility] Immature granulocytes/100 WBC (Bld) 0.3 % [facility] Interpretation and review of laboratory results Abnormal [facility] Lymphocytes (Bld) [#/Vol] 1.59 10*3/uL [facility] Lymphocytes/100 WBC (Bld) 17.3 % [facility] MCH (RBC) [Entitic mass] 27.7 pg 26.0 - 34.0 pg [facility] MCHC (RBC) [Mass/Vol] 31.0 g/dL 30.5 - 36.0 g/dL [facility] MCV (RBC) [Entitic vol] 89.2 fL 80.0 - 100.0 fL [facility] Monocytes (Bld) [#/Vol] 0.87 10*3/uL High [facility] Monocytes/100 WBC (Bld) 9.5 % [facility] Neutrophils (Bld) [#/Vol] 5.75 10*3/uL [facility] Neutrophils/100 WBC (Bld) 62.4 % [facility] Nucleated RBC (Bld) [#/Vol] [facility] Nucleated RBC/100 WBC (Bld) [Ratio] 0.0 % /100 WBC [facility] Platelet mean volume (Bld) [Entitic vol] 9.7 fL 9.0 - 12.7 fL [facility] Platelets (Bld) [#/Vol] 233 10*3/uL [facility] RBC (Bld) [#/Vol] 3.90 10*6/uL Low 4.20 - 6.0 0 m/uL [facility] WBC (Bld) [#/Vol] 9.20 10*3/uL [facility] This is an appended report. These results have been appended to a previously verified report. [facility] CT Abdomen and Pelvis W amie romero Beth 12-10-2021 IMPRESSION: 1. Since 10/22/2021, unchanged 1.1 cm hypodense subcapsular hepatic mass, which remains suspicious for a metastasis. 2. Decrease in size of previously noted mildly enlarged lymph nodes. No progressive lymphadenopathy. 3. Circumferential urinary bladder wall thickening, likely secondary to chronic outlet obstruction. Transcribe Date/Time: Dec 10 2021 3:48P Dictated by: ABDULLAHI MOROCHO MD This examination was interpreted and the report reviewed and electronically signed by: ABDULLAHI MOROCHO MD on Dec 10 2021 4:18PM EST Thank you for allowing us to participate in the care of your patient. Should there be any questions regarding this interpretation, please call [phone]. If you are unable to reach us at the number above, please feel free to contact [facility] at [phone]. DIVISION OF RADIOLOGY * * *Final Report* * * DATE OF EXAM: Dec 10 2021 1:55PM [facility] 0550 - CT LIVER/PELVIS W IVCON / PROCEDURE REASON: multiple diagnoses * * * * Physician Interpretation * * * * RESULT: EXAMINATION: CT ABDOMEN (LIVER) AND PELVIS WITH IV CONTRAST CLINICAL HISTORY: Lung cancer. Liver lesion. TECHNIQUE: Multiphase imaging of the abdomen was performed utilizing IV contrast only (Liver mass / Liver donor protocol). Venous phase imaging was continued through the pelvis. Contrast: IV: 150 ml of Omnipaque 300 Oral: None CT Radiation dose: Integrated Dose-length product (DLP) for this visit = 1650 mGy*cm. CT Dose Reduction Employed: Automated exposure control (AEC) COMPARISON: CT abdomen and pelvis 11/01/2021; 06/07/2021 RESULT: Liver/biliary: Normal liver morphology. Again seen is an unchanged 1.1 cm hypodense subcapsular lesion along the anterior superior margin of the right hepatic lobe (series 7, image 15). No associated correlate is identified on arterial phase images and this remains suspicious for a metastasis. No new or enlarging liver lesions are identified. There is no biliary ductal dilatation. The gallbladder is nondilated. The portal and hepatic veins are patent. The hepatic artery branching pattern is conventional. Pancreas: No mass or duct dilation. Adrenals: No mass. Kidneys: No mass, calculus or hydronephrosis. GI tract: The bowel is normal in caliber and without evidence of wall thickening or obstruction. There are scattered colonic diverticula, without associated inflammation. The appendix is normal. Lymph nodes: Interval decrease in size of previously mildly enlarged lymph nodes. Central Control Room Operator examples are detailed as follows on series 7: -Image 45, portocaval, 0.7 cm (previously 1.5 cm) -Image 65, aortocaval, 0.5 cm in short axis (previously 1 cm) -A previously noted left central mesenteric lymph node has resolved. No enlarging lymphadenopathy is identified. Vasculature (other): There are atherosclerotic calcifications without aneurysmal dilation. Pelvis: No mass, ascites or fluid collection. Unchanged circumferential wall thickening of the urinary bladder, likely secondary chronic outlet obstruction. Large right fat-containing inguinal hernia. Bones/Soft Tissues: No destructive lytic or blastic osseous abnormalities. Degenerative changes involve the lumbar spine. Lower thorax: Unremarkable. Government Instructor (topogram) images: No additional findings. DIVISION OF RADIOLOGY Provider, [facility] - 12/10/2021 * * *Final Report* * * DATE OF EXAM: Dec 10 2021 1:55PM [facility] 0550 - CT LIVER/PELVIS W IVCON / PROCEDURE REASON: multiple diagnoses * * * * Physician Interpretation * * * * RESULT: EXAMINATION: CT ABDOMEN (LIVER) AND PELVIS WITH IV CONTRAST CLINICAL HISTORY: Lung cancer. Liver lesion. TECHNIQUE: Multiphase imaging of the abdomen was performed utilizing IV contrast only (Liver mass / Liver donor protocol). Venous phase imaging was continued through the pelvis. Contrast: IV: 150 ml of Omnipaque 300 Oral: None CT Radiation dose: Integrated Dose-length product (DLP) for this visit = 1650 mGy*cm. CT Dose Reduction Employed: Automated exposure control (AEC) COMPARISON: CT abdomen and pelvis 11/01/2021; 06/07/2021 RESULT: Liver/biliary: Normal liver morphology. Again seen is an unchanged 1.1 cm hypodense subcapsular lesion along the anterior superior margin of the right hepatic lobe (series 7, image 15). No associated correlate is identified on arterial phase images and this remains suspicious for a metastasis. No new or enlarging liver lesions are identified. There is no biliary ductal dilatation. The gallbladder is nondilated. The portal and hepatic veins are patent. The hepatic artery branching pattern is conventional. Pancreas: No mass or duct dilation. Adrenals: No mass. Kidneys: No mass, calculus or hydronephrosis. GI tract: The bowel is normal in caliber and without evidence of wall thickening or obstruction. There are scattered colonic diverticula, without associated inflammation. The appendix is normal. Lymph nodes: Interval decrease in size of previously mildly enlarged lymph nodes. Central Control Room Operator examples are detailed as follows on series 7: -Image 45, portocaval, 0.7 cm (previously 1.5 cm) -Image 65, aortocaval, 0.5 cm in short axis (previously 1 cm) -A previously noted left central mesenteric lymph node has resolved. No enlarging lymphadenopathy is identified. Vasculature (other): There are atherosclerotic calcifications without aneurysmal dilation. Pelvis: No mass, ascites or fluid collection. Unchanged circumferential wall thickening of the urinary bladder, likely secondary chronic outlet obstruction. Large right fat-containing inguinal hernia. Bones/Soft Tissues: No destructive lytic or blastic osseous abnormalities. Degenerative changes involve the lumbar spine. Lower thorax: Unremarkable. Government Instructor (topogram) images: No additional findings. IMPRESSION IMPRESSION: 1. Since 10/22/2021, unchanged 1.1 cm hypodense subcapsular hepatic mass, which remains suspicious for a metastasis. 2. Decrease in size of previously noted mildly enlarged lymph nodes. No progressive lymphadenopathy. 3. Circumferential urinary bladder wall thickening, likely secondary to chronic outlet obstruction. Transcribe Date/Time: Dec 10 2021 3:48P Dictated by: ABDULLAHI MOROCHO MD This examination was interpreted and the report reviewed and electronically signed by: ABDULLAHI MOROCHO MD on Dec 10 2021 4:18PM EST Thank you for allowing us to participate in the care of your patient. Should there be any questions regarding this interpretation, please call [phone]. If you are unable to reach us at the number above, please feel free to contact [facility] eRadiology at [phone]. [facility] Radiology Study observation (narrative) [facility] CT Abdomen and Pelvis W cont rast IVOrdered By: [facility]cf Provider on 12-10-2021 [facility] Comprehensive metabolic 2000 panelOrdered By: Oanh Escobar on 12-10-2021 Albumin [Mass/Vol] 4.3 g/dL 3.9 - 4.9 g/dL [facility] ALP [Catalytic activity/Vol] 95 U/L 38 - 113 U/L [facility] ALT [Catalytic activity/Vol] 12 U/L 10 - 54 U/L [facility] Anion gap [Moles/Vol] 9 mmol/L 9 - 18 mmol/L [facility] AST [Catalytic activity/Vol] 16 U/L 14 - 40 U/L [facility] Bilirubin [Mass/Vol] 0.3 mg/dL 0.2 - 1 .3 mg/dL [facility] Calcium [Mass/Vol] 9.4 mg/dL 8.5 - 10. 2 mg/dL [facility] Chloride [Moles/Vol] 108 mmol/L High 97 - 10 5 mmol/L [facility] CO2 [Moles/Vol] 24 mmol/L 22 - 30 mmol/L [facility] Creatinine [Mass/Vol] 0.88 mg/dL 0.73 - 1.22 mg/dL [facility] GFR/1.73 sq M.predicted among non-blacks MDRD (S/P/Bld) [Vol rate/Area] 93 mL/min/{1.73_m2} - PINF [facility] Comment on above: Estimated Glomerular Filtration Rate (eGFR) is calculated using the 2020 CKD-EPI creatinine equation. This equation utilizes serum creatinine, sex, and age as parameters. The creatinine assay has traceable calibration to isotope dilution-mass spectrometry. Refer to KDIGO guidelines for clinical interpretation. In patients with unstable renal function, e.g. those with acute kidney injury, the eGFR may not accurately reflect actual GFR. Glucose [Mass/Vol] 101 mg/dL High 74 - 99 mg/dL [facility] Comment on above: The [place] Diab[employer] Association (ADA) provides guidance for cutoff values [...] Standards of Medical Care in Diabetes 2016, [place] [employer]. Diabetes Care. 2016.39(Suppl 1). Interpretation and review of laboratory results Abnormal [facility] Potassium [Moles/Vol] 4.8 mmol/L 3.7 - 5.1 mmol/L [facility] Protein [Mass/Vol] 6.8 g/dL 6.3 - 8.0 g/dL [facility] Sodium [Moles/Vol] 141 mmol/L 136 - 144 mmol/L [facility] Urea nitrogen [Mass/Vol] 17 mg/dL 9 - 24 mg/dL [facility] CT Abdomen and Pelvis W amie ballt Beth 10-25-2021 IMPRESSION: 1. Interval development of an approximate 1.1 cm, indeterminate hepatic lesion. The possibility of newly apparent metastases cannot be excluded. 2. Newly apparent retroperitoneal and central mesenteric lymphadenopathy, as above. Correlation with continued follow-up examinations is recommended. Transcribe Date/Time: Oct 22 2021 3:37P Dictated by: LORRIE KAPADIA MD This examination was interpreted and the report reviewed and electronically signed by: LORRIE KAPADIA MD on Oct 25 2021 10:26AM EST Thank you for allowing us to participate in the care of your patient. Should there be any questions regarding this interpretation, please call [phone]. If you are unable to reach us at the number above, please feel free to contact [facility] eRadiology at [phone]. DIVISION OF RADIOLOGY * * *Final Report* * * DATE OF EXAM: Oct 22 2021 2:51PM [facility] 0530 - CT ABD/PEL W IVCON / PROCEDURE REASON: Enlarged lymph node * * * * Physician Interpretation * * * * RESULT: EXAMINATION: CT ABDOMEN AND PELVIS WITH IV CONTRAST CLINICAL HISTORY: Lung carcinoma TECHNIQUE: CT of the abdomen and pelvis was performed using standard technique, scanning from just above the dome of the diaphragm to the symphysis pubis. MQ: CTAP_3 Contrast: IV: 150 ml of Omnipaque 300 Oral: 900 ml of 50 ml of Omnipaque [address] Radiation dose: Integrated Dose-length product (DLP) for this visit = 232 mGy*cm. CT Dose Reduction Employed: Automated exposure control (AEC) COMPARISON: None. RESULT: Liver: There has been interval development of subcapsular 1.1 cm right lobe hepatic hypodensity, image 19, series 2. No additional hepatic lesions. Biliary Tract: No bile duct dilation. The gallbladder is poorly distended. Spleen: No splenomegaly. No mass. Factors: No mass or ductal dilatation. Adrenal glands: No mass. Kidneys: No enhancing mass or hydronephrosis. GI Tract: No bowel wall thickening or dilation. Lymph nodes: Portacaval lymph node measures 2.4 x 1.5 cm, image 47, series 2. Aortocaval adenopathy, largest area measuring 1.6 x 1.0 cm, a new finding. Additional subcentimeter posterior retroperitoneal lymph nodes are noted, a new finding. Numerous mildly prominent central mesenteric lymph nodes are appreciated, also a new finding, for example, a 1.2 x 0.7 cm lymph node to the left of midline, image 75, series 2. No substantial pelvic adenopathy is identified. Mesentery: No ascites. No mass. Retroperitoneum: No mass. Vasculature: - Abdominal aorta and iliac arteries: Atherosclerotic calcifications without aneurysm. - Celiac and SMA: Patent. - Portal venous system (SMV, splenic vein, portal vein and branches): Patent. - Hepatic veins: Patent. Pelvis: No free fluid or pelvic mass. Moderate diffuse urinary bladder wall thickening is again appreciated, a nonspecific finding, stable. Moderate enlargement of the prostate gland, stable. Relative large right-sided fat-containing inguinal hernia is noted, slightly progressed in size. Bones/Soft Tissues: Degenerative change involving the lumbar spine. No osseous destructive process. Lower Thorax: A CT examination of the chest has been performed concurrently and will be dictated separately. Government Instructor (topogram) images: No additional findings. DIVISION OF RADIOLOGY Provider, [facility] - 10/25/2021 * * *Final Report* * * DATE OF EXAM: Oct 22 2021 2:51PM [facility] 0530 - CT ABD/PEL W IVCON / PROCEDURE REASON: Enlarged lymph node * * * * Physician Interpretation * * * * RESULT: EXAMINATION: CT ABDOMEN AND PELVIS WITH IV CONTRAST CLINICAL HISTORY: Lung carcinoma TECHNIQUE: CT of the abdomen and pelvis was performed using standard technique, scanning from just above the dome of the diaphragm to the symphysis pubis. MQ: CTAP_3 Contrast: IV: 150 ml of Omnipaque 300 Oral: 900 ml of 50 ml of Omnipaque [address] Radiation dose: Integrated Dose-length product (DLP) for this visit = 232 mGy*cm. CT Dose Reduction Employed: Automated exposure control (AEC) COMPARISON: None. RESULT: Liver: There has been interval development of subcapsular 1.1 cm right lobe hepatic hypodensity, image 19, series 2. No additional hepatic lesions. Biliary Tract: No bile duct dilation. The gallbladder is poorly distended. Spleen: No splenomegaly. No mass. Factors: No mass or ductal dilatation. Adrenal glands: No mass. Kidneys: No enhancing mass or hydronephrosis. GI Tract: No bowel wall thickening or dilation. Lymph nodes: Portacaval lymph node measures 2.4 x 1.5 cm, image 47, series 2. Aortocaval adenopathy, largest area measuring 1.6 x 1.0 cm, a new finding. Additional subcentimeter posterior retroperitoneal lymph nodes are noted, a new finding. Numerous mildly prominent central mesenteric lymph nodes are appreciated, also a new finding, for example, a 1.2 x 0.7 cm lymph node to the left of midline, image 75, series 2. No substantial pelvic adenopathy is identified. Mesentery: No ascites. No mass. Retroperitoneum: No mass. Vasculature: - Abdominal aorta and iliac arteries: Atherosclerotic calcifications without aneurysm. - Celiac and SMA: Patent. - Portal venous system (SMV, splenic vein, portal vein and branches): Patent. - Hepatic veins: Patent. Pelvis: No free fluid or pelvic mass. Moderate diffuse urinary bladder wall thickening is again appreciated, a nonspecific finding, stable. Moderate enlargement of the prostate gland, stable. Relative large right-sided fat-containing inguinal hernia is noted, slightly progressed in size. Bones/Soft Tissues: Degenerative change involving the lumbar spine. No osseous destructive process. Lower Thorax: A CT examination of the chest has been performed concurrently and will be dictated separately. Government Instructor (topogram) images: No additional findings. IMPRESSION IMPRESSION: 1. Interval development of an approximate 1.1 cm, indeterminate hepatic lesion. The possibility of newly apparent metastases cannot be excluded. 2. Newly apparent retroperitoneal and central mesenteric lymphadenopathy, as above. Correlation with continued follow-up examinations is recommended. Transcribe Date/Time: Oct 22 2021 3:37P Dictated by: LORRIE KAPADIA MD This examination was interpreted and the report reviewed and electronically signed by: LORRIE KAPADIA MD on Oct 25 2021 10:26AM EST Thank you for allowing us to participate in the care of your patient. Should there be any questions regarding this interpretation, please call [phone]. If you are unable to reach us at the number above, please feel free to contact [facility] eRadiology at [phone]. [facility] CT Chest W contrast Beth IMPRESSION: 1. Newly apparent patchy bilateral groundglass opacities, left greater than right, likely infectious/inflammator y in nature. Correlation with continued follow-up examinations is recommended. 2. Bilateral less than 4 mm pulmonary nodules, stable. 3. Several subcentimeter mediastinal lymph nodes, mild soft tissue prominence at the santy bilaterally, stable. 4. Borderline aneurysmal enlargement of the ascending and mild dilation of the descending thoracic aorta, stable. Transcribe Date/Time: Oct 22 2021 3:16P Dictated by: LORRIE KAPADIA MD This examination was interpreted and the report reviewed and electronically signed by: LORRIE KAPADIA MD on Oct 25 2021 10:26AM EST Thank you for allowing us to participate in the care of your patient. Should there be any questions regarding this interpretation, please call [phone]. If you are unable to reach us at the number above, please feel free to contact [facility] eRadiology at [phone]. DIVISION OF RADIOLOGY * * *Final Report* * * DATE OF EXAM: Oct 22 2021 2:51PM [facility] 0539 - CT CHEST W IVCON / PROCEDURE REASON: Enlarged lymph node * * * * Physician Interpretation * * * * RESULT: EXAMINATION: CHEST CT WITH CONTRAST Indication: Lung carcinoma Technique: Spiral CT acquisition of the chest from the thoracic inlet to the upper abdomen following IV contrast. M: CTCW_4 Contrast: 150 mL Omnipaque [address] Dose-Length Product: 232 mGy*cm CT Dose Reduction Employed: Automated exposure control (AEC) Comparison: CT chest 06/07/2021 RESULT: Limitations: None. Lines, tubes, and devices: None. Lung parenchyma , airways, and pleural space: Moderate centrilobular emphysematous changes, diffuse bronchial wall thickening is again appreciated. No consolidative process or pleural effusion. Mild biapical pleural scarring, stable. Mild volume loss involving the right hemithorax, postoperative changes, compatible with prior right upper lobectomy. Scattered bilateral reticular and groundglass opacities are identified, left greater than right, new finding, likely infectious/inflammator y in nature. 2 mm left upper lobe subpleural nodule, image 67, series 3 stable. Additional 3 mm left lower lobe nodule, image 115, series 3, stable. Punctate, less than 2 mm nodule within the medial right upper lobe, image 67, series 3, stable. Lower neck, lymph nodes, and mediastinum: The visualized thyroid gland appears unremarkable. No substantial supraclavicular or axillary lymphadenopathy. Numerous subcentimeter mediastinal lymph nodes are again identified, stable. Soft tissue prominence at the santy bilaterally, right greater than left, stable. Postoperative changes at the right hilum, stable. Heart, pericardium, and thoracic vessels: Borderline aneurysmal enlargement of the ascending thoracic aorta measuring approximately 4.9 cm, stable. Mild dilation of the descending thoracic aorta measuring 3.2 cm in maximal diameter, stable. No substantial pericardial effusion. Coronary artery calcification is noted. Bones/Soft Tissues: No osseous destructive process. Mild degenerative change within the thoracic spine. Postoperative changes, compatible with median sternotomy. Healed right-sided rib fractures are noted. Upper Abdomen: A CT examination of the abdomen has been performed concurrently and will be dictated separately. Government Instructor (topogram) images: No additional findings. DIVISION OF RADIOLOGY Provider, [facility] - 10/25/2021 * * *Final Report* * * DATE OF EXAM: Oct 22 2021 2:51PM [facility] 0539 - CT CHEST W IVCON / PROCEDURE REASON: Enlarged lymph node * * * * Physician Interpretation * * * * RESULT: EXAMINATION: CHEST CT WITH CONTRAST Indication: Lung carcinoma Technique: Spiral CT acquisition of the chest from the thoracic inlet to the upper abdomen following IV contrast. M: CTCW_4 Contrast: 150 mL Omnipaque [address] Dose-Length Product: 232 mGy*cm CT Dose Reduction Employed: Automated exposure control (AEC) Comparison: CT chest 06/07/2021 RESULT: Limitations: None. Lines, tubes, and devices: None. Lung parenchyma , airways, and pleural space: Moderate centrilobular emphysematous changes, diffuse bronchial wall thickening is again appreciated. No consolidative process or pleural effusion. Mild biapical pleural scarring, stable. Mild volume loss involving the right hemithorax, postoperative changes, compatible with prior right upper lobectomy. Scattered bilateral reticular and groundglass opacities are identified, left greater than right, new finding, likely infectious/inflammator y in nature. 2 mm left upper lobe subpleural nodule, image 67, series 3 stable. Additional 3 mm left lower lobe nodule, image 115, series 3, stable. Punctate, less than 2 mm nodule within the medial right upper lobe, image 67, series 3, stable. Lower neck, lymph nodes, and mediastinum: The visualized thyroid gland appears unremarkable. No substantial supraclavicular or axillary lymphadenopathy. Numerous subcentimeter mediastinal lymph nodes are again identified, stable. Soft tissue prominence at the santy bilaterally, right greater than left, stable. Postoperative changes at the right hilum, stable. Heart, pericardium, and thoracic vessels: Borderline aneurysmal enlargement of the ascending thoracic aorta measuring approximately 4.9 cm, stable. Mild dilation of the descending thoracic aorta measuring 3.2 cm in maximal diameter, stable. No substantial pericardial effusion. Coronary artery calcification is noted. Bones/Soft Tissues: No osseous destructive process. Mild degenerative change within the thoracic spine. Postoperative changes, compatible with median sternotomy. Healed right-sided rib fractures are noted. Upper Abdomen: A CT examination of the abdomen has been performed concurrently and will be dictated separately. Government Instructor (topogram) images: No additional findings. IMPRESSION IMPRESSION: 1. Newly apparent patchy bilateral groundglass opacities, left greater than right, likely infectious/inflammator y in nature. Correlation with continued follow-up examinations is recommended. 2. Bilateral less than 4 mm pulmonary nodules, stable. 3. Several subcentimeter mediastinal lymph nodes, mild soft tissue prominence at the santy bilaterally, stable. 4. Borderline aneurysmal enlargement of the ascending and mild dilation of the descending thoracic aorta, stable. Transcribe Date/Time: Oct 22 2021 3:16P Dictated by: LORRIE KAPADIA MD This examination was interpreted and the report reviewed and electronically signed by: LORRIE KAPADIA MD on Oct 25 2021 10:26AM EST Thank you for allowing us to participate in the care of your patient. Should there be any questions regarding this interpretation, please call [phone]. If you are unable to reach us at the number above, please feel free to contact [facility] eRadiology at [phone]. [facility] No Panel InformationOrdered By: Ccf Provider on 10-25-2021 [facility] No Panel Informationon 10-22 Radiology Study observation (narrative) [facility] CHEST AND LATERALon 10-12-19 CHEST AND LATERAL [facility] Department of Radiology [address] [place] [id number] ======== Patient Name: ALESSIO BURNS : 1950 Sex: M Age: Race: White Pt. Location: Patient Status: O Ordered Date: 10/12/2020 11:20:00 AM Completed Date: 10/12/2020 11:24 AM Requesting Provider: RUSS LISA Attending Provider: RUSS LISA Report Copy To: Signs & Symptoms: R91.8 Other nonspecific abnormal finding of lung field I10 History: [place] Comments: Exam: CHEST AND LATERAL ======== CHEST AND LATERAL 10/12/2020 11:24 AM CLINICAL [...] hemidiaphragm. Electronically signed: Car Werner. Transcribed by: [email or web address], User Resident: Electronically Signed by: CAR WERNER @ 10/12/2020 11:33 AM Normal [facility] Vital Signs Date Time Vital Sign Value Performing Clinician Facility 02-20-2025 14:53-0400 Body height 167.6 cm Maliha Lentz DO Work Phone: [facility] 02-20-2025 14:53-0400 Body mass index (BMI) [Ratio] 28.89 kg/m2 Maliha Lentz DO Work Phone: [facility] 02-20-2025 14:53-0400 Body weight 81.19 kg Maliha Lentz DO Work Phone: [facility] 02-20-2025 14:53-0400 Diastolic blood pressure 67 mm[Hg] Maliha Lentz DO Work Phone: [facility] 02-20-2025 14:53-0400 Heart rate 50 /min Maliha Lentz DO Work Phone: [facility] 02-20-2025 14:53-0400 SaO2% (BldA) [Mass fraction] 97 % Maliha Lentz DO Work Phone: [facility] 02-20-2025 14:53-0400 Systolic blood pressure 131 mm[Hg] Maliha Lentz DO Work Phone: [facility] 02-12-2025 13:24-0400 Body mass index (BMI) [Ratio] 29.02 kg/m2 Anayeli Heaton DIGITAL ASSOCIATE MEDIA DIRECTOR Work Phone: [facility] 02-12-2025 13:24-0400 Body temperature 98.29 [degF] Anayeli Florina DIGITAL ASSOCIATE MEDIA DIRECTOR Work Phone: [facility] 02-12-2025 13:24-0400 Body weight 81.56 kg Anayeli Florina DIGITAL ASSOCIATE MEDIA DIRECTOR Work Phone: [facility] 02-12-2025 13:24-0400 Diastolic blood pressure 58 mm[Hg] Anayeli Florina DIGITAL ASSOCIATE MEDIA DIRECTOR Work Phone: [facility] 02-12-2025 13:24-0400 Heart rate 47 /min Anayeli Lawsonlupe DIGITAL ASSOCIATE MEDIA DIRECTOR Work Phone: [facility] 02-12-2025 13:24-0400 Respiratory rate 18 /min Anayeli Lawsonlupe DIGITAL ASSOCIATE MEDIA DIRECTOR Work Phone: [facility] 02-12-2025 13:24-0400 SaO2% (BldA) [Mass fraction] 97 % Anayeli Lawsonlupe DIGITAL ASSOCIATE MEDIA DIRECTOR Work Phone: [facility] 02-12-2025 13:24-0400 Systolic blood pressure 118 mm[Hg] Anayeli Lawsonlupe DIGITAL ASSOCIATE MEDIA DIRECTOR Work Phone: [facility] 02-06-2025 12:49-0400 Body height 167.6 cm Jaya Bai MD Work Phone: [facility] 02-06-2025 12:49-0400 Body mass index (BMI) [Ratio] 29.01 kg/m2 Jaya Bai MD Work Phone: [facility] 02-06-2025 12:49-0400 Body temperature 97.81 [degF] Jaya Bai MD Work Phone: [facility] 02-06-2025 12:49-0400 Body weight 81.5 kg Jaya Bai MD Work Phone: [facility] 02-06-2025 12:49-0400 Diastolic blood pressure 72 mm[Hg] Jaya Bai MD Work Phone: [facility] 02-06-2025 12:49-0400 Heart rate 62 /min Jaya Bai MD Work Phone: [facility] 02-06-2025 12:49-0400 Respiratory rate 16 /min Jaya Bai MD Work Phone: [facility] 02-06-2025 12:49-0400 SaO2% (BldA) [Mass fraction] 94 % Jaya Bai MD Work Phone: [facility] 02-06-2025 12:49-0400 Systolic blood pressure 128 mm[Hg] Jaya Bai MD Work Phone: [facility] 12-26-2024 14:44-0400 Body mass index (BMI) [Ratio] 29.76 kg/m2 Anayeli Heaton DIGITAL ASSOCIATE MEDIA DIRECTOR Work Phone: [facility] 12-26-2024 14:44-0400 Body temperature 98.49 [degF] Anayeli Heaton DIGITAL ASSOCIATE MEDIA DIRECTOR Work Phone: [facility] 12-26-2024 14:44-0400 Body weight 83.64 kg Anayeli Florina DIGITAL ASSOCIATE MEDIA DIRECTOR Work Phone: [facility] 12-26-2024 14:44-0400 Diastolic blood pressure 60 mm[Hg] Anayeli Florina DIGITAL ASSOCIATE MEDIA DIRECTOR Work Phone: [facility] 12-26-2024 14:44-0400 Heart rate 57 /min Anayeli Bhargaviz DIGITAL ASSOCIATE MEDIA DIRECTOR Work Phone: [facility] 12-26-2024 14:44-0400 Respiratory rate 20 /min Anayeli Rennyholz DIGITAL ASSOCIATE MEDIA DIRECTOR Work Phone: [facility] 12-26-2024 14:44-0400 SaO2% (BldA) [Mass fraction] 96 % Anayeli Florina DIGITAL ASSOCIATE MEDIA DIRECTOR Work Phone: [facility] 12-26-2024 14:44-0400 Systolic blood pressure 110 mm[Hg] Anayeli Heaton DIGITAL ASSOCIATE MEDIA DIRECTOR Work Phone: [facility] 11-07-2024 14:04-0500 Body mass index (BMI) [Ratio] 28.27 kg/m2 Jaya Bai MD Work Phone: [facility] 11-07-2024 14:04-0500 Body temperature 97 [degF] Jaya Bai MD Work Phone: [facility] 11-07-2024 14:04-0500 Body weight 79.4 kg Jaya Bai MD Work Phone: [facility] 11-07-2024 14:04-0500 Diastolic blood pressure 70 mm[Hg] Jaya Bai MD Work Phone: [facility] 11-07-2024 14:04-0500 Heart rate 59 /min Jaya Bai MD Work Phone: [facility] 11-07-2024 14:04-0500 Respiratory rate 18 /min Jaya Bai MD Work Phone: [facility] 11-07-2024 14:04-0500 SaO2% (BldA) [Mass fraction] 97 % Jaya Bai MD Work Phone: [facility] 11-07-2024 14:04-0500 Systolic blood pressure 126 mm[Hg] Jaya Bai MD Work Phone: [facility] 10-16-2024 13:42-0500 Body height 1706.88 cm [facility] 10-16-2024 13:42-0500 Body mass index (BMI) [Ratio] 0.2 kg/m2 [facility] 10-16-2024 13:42-0500 Body weight 78.92 kg [facility] 10-10-2024 13:26-0500 Body height 167.6 cm Maliha Lentz DO Work Phone: [facility] 10-10-2024 13:26-0500 Body mass index (BMI) [Ratio] 28.08 kg/m2 Maliha Luton DO Work Phone: [facility] 10-10-2024 13:26-0500 Body weight 78.93 kg Maliha Luton DO Work Phone: [facility] 10-10-2024 13:26-0500 Diastolic blood pressure 60 mm[Hg] Maliha Lentz DO Work Phone: [facility] 10-10-2024 13:26-0500 Heart rate 56 /min Malihacortney Lentz DO Work Phone: [facility] 10-10-2024 13:26-0500 SaO2% (BldA) [Mass fraction] 98 % Maliha Lentz DO Work Phone: [facility] 10-10-2024 13:26-0500 Systolic blood pressure 126 mm[Hg] Maliha Lentz DO Work Phone: [facility] 09-12-2024 13:13-0500 Body mass index (BMI) [Ratio] 28.55 kg/m2 Jaya Bai MD Work Phone: [facility] 09-12-2024 13:13-0500 Body temperature 97.7 [degF] Jaya Bai MD Work Phone: [facility] 09-12-2024 13:13-0500 Body weight 80.2 kg Jaya Bai MD Work Phone: [facility] 09-12-2024 13:13-0500 Diastolic blood pressure 68 mm[Hg] Jaya Bai MD Work Phone: [facility] 09-12-2024 13:13-0500 Heart rate 56 /min Jaya Bai MD Work Phone: [facility] 09-12-2024 13:13-0500 Respiratory rate 18 /min Jaya Bai MD Work Phone: [facility] 09-12-2024 13:13-0500 SaO2% (BldA) [Mass fraction] 98 % Jaya Bai MD Work Phone: [facility] 09-12-2024 13:13-0500 Systolic blood pressure 122 mm[Hg] Jaya Bai MD Work Phone: [facility] 09-11-2024 13:35-0500 Body height 167.6 cm Jasen Vasques NP Work Phone: [facility] 09-11-2024 13:35-0500 Body mass index (BMI) [Ratio] 28.89 kg/m2 Jasen Martintrick DIGITAL ASSOCIATE MEDIA DIRECTOR Work Phone: [facility] 09-11-2024 13:35-0500 Body temperature 97.3 [degF] Jasen Vasques DIGITAL ASSOCIATE MEDIA DIRECTOR Work Phone: [facility] 09-11-2024 13:35-0500 Body weight 81.19 kg Jasen Vasques DIGITAL ASSOCIATE MEDIA DIRECTOR Work Phone: [facility] 09-11-2024 13:35-0500 Diastolic blood pressure 48 mm[Hg] Jasen Vasques DIGITAL ASSOCIATE MEDIA DIRECTOR Work Phone: [facility] 09-11-2024 13:35-0500 Heart rate 52 /min Jasen Vasques DIGITAL ASSOCIATE MEDIA DIRECTOR Work Phone: [facility] 09-11-2024 13:35-0500 Respiratory rate 22 /min Jasen Vasques DIGITAL ASSOCIATE MEDIA DIRECTOR Work Phone: [facility] 09-11-2024 13:35-0500 SaO2% (BldA) [Mass fraction] 97 % Jasen Vasques DIGITAL ASSOCIATE MEDIA DIRECTOR Work Phone: [facility] 09-11-2024 13:35-0500 Systolic blood pressure 116 mm[Hg] Jasen Vasques DIGITAL ASSOCIATE MEDIA DIRECTOR Work Phone: [facility] 07-24-2024 11:14-0500 Body height 167.6 cm Jaya Bai MD Work Phone: [facility] 07-24-2024 11:14-0500 Body mass index (BMI) [Ratio] 29.73 kg/m2 Jaya Bai MD Work Phone: [facility] 07-24-2024 11:14-0500 Body temperature 97.81 [degF] Jaya Bai MD Work Phone: [facility] 07-24-2024 11:14-0500 Body weight 83.5 kg Jaya Bai MD Work Phone: [facility] 07-24-2024 11:14-0500 Diastolic blood pressure 64 mm[Hg] Jaya Bai MD Work Phone: [facility] 07-24-2024 11:14-0500 Heart rate 49 /min Jaya Bai MD Work Phone: [facility] 07-24-2024 11:14-0500 Respiratory rate 16 /min Jaya Bai MD Work Phone: [facility] 07-24-2024 11:14-0500 SaO2% (BldA) [Mass fraction] 97 % Jaya Bai MD Work Phone: [facility] 07-24-2024 11:14-0500 Systolic blood pressure 119 mm[Hg] Jaya Bai MD Work Phone: [facility] 07-22-2024 14:06-0500 Body height 167.64 cm [facility] 07-22-2024 14:06-0500 Body mass index (BMI) [Ratio] 28.4 kg/m2 [facility] 07-22-2024 14:06-0500 Body weight 79.83 kg [facility] 06-03-2024 13:41-0400 Body mass index (BMI) [Ratio] 30.51 kg/m2 Jasen Vasques DIGITAL ASSOCIATE MEDIA DIRECTOR Work Phone: [facility] 06-03-2024 13:41-0400 Body temperature 97.81 [degF] Jasen Vasques DIGITAL ASSOCIATE MEDIA DIRECTOR Work Phone: [facility] 06-03-2024 13:41-0400 Body weight 85.73 kg Jasen Vasques DIGITAL ASSOCIATE MEDIA DIRECTOR Work Phone: [facility] 06-03-2024 13:41-0400 Diastolic blood pressure 62 mm[Hg] Jasen Vasques DIGITAL ASSOCIATE MEDIA DIRECTOR Work Phone: [facility] 06-03-2024 13:41-0400 Heart rate 55 /min Jasen Vasques DIGITAL ASSOCIATE MEDIA DIRECTOR Work Phone: [facility] 06-03-2024 13:41-0400 SaO2% (BldA) [Mass fraction] 97 % Jasen Ibarrazpatrick DIGITAL ASSOCIATE MEDIA DIRECTOR Work Phone: [facility] 06-03-2024 13:41-0400 Systolic blood pressure 128 mm[Hg] Jasen Ibarrazpatrick DIGITAL ASSOCIATE MEDIA DIRECTOR Work Phone: [facility] 04-18-2024 11:06-0400 Body height 167.6 cm Jaya Bai MD Work Phone: [facility] 04-18-2024 11:06-0400 Body mass index (BMI) [Ratio] 30.15 kg/m2 Jaya Bai MD Work Phone: [facility] 04-18-2024 11:06-0400 Body temperature 97.81 [degF] Jaya Bai MD Work Phone: [facility] 04-18-2024 11:06-0400 Body weight 84.7 kg Jaya Bai MD Work Phone: [facility] 04-18-2024 11:06-0400 Diastolic blood pressure 66 mm[Hg] Jaya Bai MD Work Phone: [facility] 04-18-2024 11:06-0400 Heart rate 56 /min Jaya Bai MD Work Phone: [facility] 04-18-2024 11:06-0400 Respiratory rate 16 /min Jaya Bai MD Work Phone: [facility] 04-18-2024 11:06-0400 SaO2% (BldA) [Mass fraction] 96 % Jaya Bai MD Work Phone: [facility] 04-18-2024 11:06-0400 Systolic blood pressure 133 mm[Hg] Jaya Bai MD Work Phone: [facility] 03-01-2024 14:24-0400 Body mass index (BMI) [Ratio] 30 kg/m2 Jaya Bai MD Work Phone: [facility] 03-01-2024 14:24-0400 Body temperature 97 [degF] Jaya Bai MD Work Phone: [facility] 03-01-2024 14:24-0400 Body weight 84.28 kg Jaya Bai MD Work Phone: [facility] 03-01-2024 14:24-0400 Diastolic blood pressure 63 mm[Hg] Jaya Bai MD Work Phone: [facility] 03-01-2024 14:24-0400 Heart rate 63 /min Jaya Bai MD Work Phone: [facility] 03-01-2024 14:24-0400 Respiratory rate 18 /min Jaya Bai MD Work Phone: [facility] 03-01-2024 14:24-0400 SaO2% (BldA) [Mass fraction] 96 % Jaya Bai MD Work Phone: [facility] 03-01-2024 14:24-0400 Systolic blood pressure 112 mm[Hg] Jaya Bai MD Work Phone: [facility] 11-17-2023 14:35-0400 Body temperature 97 [degF] Jaya Bai MD Work Phone: [facility] 11-17-2023 14:35-0400 Body weight 88.3 kg Jaya Bai MD Work Phone: [facility] 11-17-2023 14:35-0400 Diastolic blood pressure 60 mm[Hg] Jaya Bai MD Work Phone: [facility] 11-17-2023 14:35-0400 Heart rate 55 /min Jaya Bai MD Work Phone: [facility] 11-17-2023 14:35-0400 Respiratory rate 18 /min Jaya Bia MD Work Phone: [facility] 11-17-2023 14:35-0400 SaO2% (BldA) [Mass fraction] 97 % Jaya Bai MD Work Phone: [facility] 11-17-2023 14:35-0400 Systolic blood pressure 135 mm[Hg] Jaya Bai MD Work Phone: [facility] 08-14-2023 09:00-0500 Body height 167.64 cm Tavo Hull Other [employer] Other 08-14-2023 09:00-0500 Body mass index (BMI) [Ratio] 31.1 kg/m2 Tavo Hull Other [employer] Other 08-14-2023 09:00-0500 Body weight 87.41 kg Tavo Hull Other [employer] Other 08-14-2023 09:00-0500 Diastolic blood pressure 57 mm[Hg] Tavo Hull Other [employer] Other 08-14-2023 09:00-0500 Systolic blood pressure 126 mm[Hg] Tavo Hull Other [employer] Other 08-11-2023 14:23-0500 Body temperature 97.39 [degF] Jaya Bai MD Work Phone: [facility] 08-11-2023 14:23-0500 Body weight 87.91 kg Jaya Bai MD Work Phone: [facility] 08-11-2023 14:23-0500 Diastolic blood pressure 60 mm[Hg] Jaya Bai MD Work Phone: [facility] 08-11-2023 14:23-0500 Heart rate 59 /min Jaya Bai MD Work Phone: [facility] 08-11-2023 14:23-0500 Respiratory rate 16 /min Jaya Bai MD Work Phone: [facility] 08-11-2023 14:23-0500 SaO2% (BldA) [Mass fraction] 94 % Jaya Bai MD Work Phone: [facility] 08-11-2023 14:23-0500 Systolic blood pressure 148 mm[Hg] Jaya Bai MD Work Phone: [facility] 05-30-2023 14:05-0400 Diastolic blood pressure 45 mm[Hg] MD Shaikh Etienne Work Phone: [facility] 05-30-2023 14:05-0400 Heart rate 56 /min MD Shaikh Etienne Work Phone: [facility] 05-30-2023 14:05-0400 Respiratory rate 18 /min MD Shaikh Etienne Work Phone: [facility] 05-30-2023 14:05-0400 SaO2% (BldA) [Mass fraction] 96 % MD Shaikh Etienne Work Phone: [facility] 05-30-2023 14:05-0400 Systolic blood pressure 127 mm[Hg] MD Shaikh Etienne Work Phone: [facility] 05-30-2023 12:53-0400 Body height 167.64 cm MD Shaikh Etienne Work Phone: [facility] 05-30-2023 12:53-0400 Body weight 82.55 kg MD Shaikh Etienne Work Phone: [facility] 05-05-2023 14:04-0400 Body height 167.6 cm Jaya Bai MD Work Phone: [facility] 05-05-2023 14:04-0400 Body temperature 97.59 [degF] Jaya Bai MD Work Phone: [facility] 05-05-2023 14:04-0400 Body weight 82.56 kg Jaya Bai MD Work Phone: [facility] 05-05-2023 14:04-0400 Diastolic blood pressure 54 mm[Hg] Jaya Bai MD Work Phone: [facility] 05-05-2023 14:04-0400 Heart rate 57 /min Jaya Bia MD Work Phone: [facility] 05-05-2023 14:04-0400 Respiratory rate 16 /min Jaya Bai MD Work Phone: [facility] 05-05-2023 14:04-0400 SaO2% (BldA) [Mass fraction] 98 % Jaya Bai MD Work Phone: [facility] 05-05-2023 14:04-0400 Systolic blood pressure 119 mm[Hg] Jaya Bai MD Work Phone: [facility] 03-03-2023 13:40-0400 Body height 167.6 cm Jaya Bai MD Work Phone: [facility] 03-03-2023 13:40-0400 Body temperature 97.59 [degF] Jaya Bai MD Work Phone: [facility] 03-03-2023 13:40-0400 Body weight 83.64 kg Jaya Bai MD Work Phone: [facility] 03-03-2023 13:40-0400 Diastolic blood pressure 59 mm[Hg] Jaya Bai MD Work Phone: [facility] 03-03-2023 13:40-0400 Heart rate 61 /min Jaya Bai MD Work Phone: [facility] 03-03-2023 13:40-0400 Respiratory rate 16 /min Jaya Bai MD Work Phone: [facility] 03-03-2023 13:40-0400 SaO2% (BldA) [Mass fraction] 96 % Jaya Bai MD Work Phone: [facility] 03-03-2023 13:40-0400 Systolic blood pressure 110 mm[Hg] Jaya Bai MD Work Phone: [facility] 01-04-2023 13:43-0400 Body height 167.6 cm Jaya Bai MD Work Phone: [facility] 01-04-2023 13:43-0400 Body temperature 97.5 [degF] Jaya Bai MD Work Phone: [facility] 01-04-2023 13:43-0400 Body weight 85.46 kg Jaya Bai MD Work Phone: [facility] 01-04-2023 13:43-0400 Diastolic blood pressure 62 mm[Hg] Jaya Bai MD Work Phone: [facility] 01-04-2023 13:43-0400 Heart rate 59 /min Jaya Bai MD Work Phone: [facility] 01-04-2023 13:43-0400 Respiratory rate 16 /min Jaya Bai MD Work Phone: [facility] 01-04-2023 13:43-0400 SaO2% (BldA) [Mass fraction] 98 % Jaya Bai MD Work Phone: [facility] 01-04-2023 13:43-0400 Systolic blood pressure 139 mm[Hg] Jaya Bai MD Work Phone: [facility] 10-07-2022 15:18-0500 Body height 167.6 cm Jaya Bai MD Work Phone: [facility] 10-07-2022 15:18-0500 Body temperature 97.81 [degF] Jaya Bai MD Work Phone: [facility] 10-07-2022 15:18-0500 Body weight 86.46 kg Jaya Bai MD Work Phone: [facility] 10-07-2022 15:18-0500 Diastolic blood pressure 52 mm[Hg] Jaya Bai MD Work Phone: [facility] 10-07-2022 15:18-0500 Heart rate 52 /min Jaya Bai MD Work Phone: [facility] 10-07-2022 15:18-0500 Respiratory rate 16 /min Jaya Bai MD Work Phone: [facility] 10-07-2022 15:18-0500 SaO2% (BldA) [Mass fraction] 100 % Jaya Bai MD Work Phone: [facility] 10-07-2022 15:18-0500 Systolic blood pressure 124 mm[Hg] Jaya Bai MD Work Phone: [facility] 07-21-2022 13:46-0500 Body height 167.6 cm Jaya Bai MD Work Phone: [facility] 07-21-2022 13:46-0500 Body temperature 97.11 [degF] Jaya Bai MD Work Phone: [facility] 07-21-2022 13:46-0500 Body weight 86.91 kg Jaya Bai MD Work Phone: [facility] 07-21-2022 13:46-0500 Diastolic blood pressure 66 mm[Hg] Jaya Bai MD Work Phone: [facility] 07-21-2022 13:46-0500 Heart rate 57 /min Jaya Bai MD Work Phone: [facility] 07-21-2022 13:46-0500 Respiratory rate 16 /min Jaya Bai MD Work Phone: [facility] 07-21-2022 13:46-0500 SaO2% (BldA) [Mass fraction] 96 % Jaya Bai MD Work Phone: [facility] 07-21-2022 13:46-0500 Systolic blood pressure 143 mm[Hg] Jaya Bai MD Work Phone: [facility] 04-18-2022 11:11-0400 Diastolic blood pressure 57 mm[Hg] MD Shaikh Etienne Work Phone: [facility] 04-18-2022 11:11-0400 Heart rate 51 /min MD Shaikh Etienne Work Phone: [facility] 04-18-2022 11:11-0400 Respiratory rate 18 /min MD Shaikh Etienne Work Phone: [facility] 04-18-2022 11:11-0400 SaO2% (BldA) [Mass fraction] 98 % MD Shaikh Etienne Work Phone: [facility] 04-18-2022 11:11-0400 Systolic blood pressure 129 mm[Hg] MD Shaikh Etienne Work Phone: [facility] 04-18-2022 09:13-0400 Body height 170.18 cm MD Shaikh Etienne Work Phone: [facility] 04-18-2022 09:13-0400 Body temperature 98.5 [degF] MD Shaikh Etienne Work Phone: [facility] 04-18-2022 09:13-0400 Body weight 77.11 kg MD Shaikh Etienne Work Phone: [facility] 03-31-2022 13:44-0400 Body height 172.7 cm Jaya Bai MD Work Phone: [facility] 03-31-2022 13:44-0400 Body temperature 97.81 [degF] Jaya Bai MD Work Phone: [facility] 03-31-2022 13:44-0400 Body weight 82.19 kg Jaya Bai MD Work Phone: [facility] 03-31-2022 13:44-0400 Diastolic blood pressure 58 mm[Hg] Jaya Bai MD Work Phone: [facility] 03-31-2022 13:44-0400 Heart rate 52 /min Jaya Bai MD Work Phone: [facility] 03-31-2022 13:44-0400 Respiratory rate 16 /min Jaya Bai MD Work Phone: [facility] 03-31-2022 13:44-0400 SaO2% (BldA) [Mass fraction] 98 % Jaya Bai MD Work Phone: [facility] 03-31-2022 13:44-0400 Systolic blood pressure 117 mm[Hg] Jaya Bai MD Work Phone: [facility] 01-05-2022 11:00-0400 Body height 172.7 cm Pacc 3 Work Phone: [facility] 01-05-2022 11:00-0400 Body temperature 97.7 [degF] Pacc 3 Work Phone: [facility] 01-05-2022 11:00-0400 Body weight 78.47 kg Pacc 3 Work Phone: [facility] 01-05-2022 11:00-0400 Diastolic blood pressure 59 mm[Hg] Pacc 3 Work Phone: [facility] 01-05-2022 11:00-0400 Heart rate 57 /min Pacc 3 Work Phone: [facility] 01-05-2022 11:00-0400 Respiratory rate 20 /min Pacc 3 Work Phone: [facility] 01-05-2022 11:00-0400 SaO2% (BldA) [Mass fraction] 97 % Pacc 3 Work Phone: [facility] 01-05-2022 11:00-0400 Systolic blood pressure 127 mm[Hg] Pacc 3 Work Phone: [facility] Encounters Encounter Date Encounter Type Care Provider Facility Start: 04-11-2025 End: 04-11-2025 Clinisync Result Encounter Generic External Data Provider [facility] External Department Unsolicited Start: 04-11-2025 End: 04-11-2025 Clinisync Result Encounter Generic External Data Provider [facility] External Department Unsolicited Start: 04-07-2025 End: 04-07-2025 Refill Anayeli Heaton NP Work Phone: [facility] Comment on above: 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 Start: 03-31-2025 End: 03-31-2025 ambulatory [facility] Start: 03-27-2025 End: 03-27-2025 Telephone encounter Jaya Bai MD Work Phone: Hematology/Oncology Comment on above: Orders Start: 03-09-2025 End: 03-09-2025 Refill Tom Benton MD Work Phone: [facility] Comment on above: Hypokalemia Start: 02-21-2025 End: 02-21-2025 Clinisync Result Encounter Generic External Data Provider [facility] External Department Unsolicited Start: 02-21-2025 End: 02-21-2025 Clinisync Result Encounter Generic External Data Provider [facility] External Department Unsolicited Start: 02-20-2025 End: 02-20-2025 ambulatory MALIHA LENTZ [facility] Start: 02-20-2025 End: 02-20-2025 Office outpatient visit 15 minutes Maliha Lentz DO Work Phone: [facility] Comment on above: Chronic obstructive pulmonary disease, unspecified COPD type (CMS-HCC) (Primary Dx); Lung nodules; Smoker Start: 02-20-2025 End: 02-20-2025 ambulatory MALIHA LENTZ [facility] Start: 02-12-2025 End: 02-12-2025 Bamboo flowsheet Anayeli Heaton DIGITAL ASSOCIATE MEDIA DIRECTOR Work Phone: [facility] Start: 02-12-2025 End: 02-12-2025 Bamboo flowsheet Anayeli Heaton DIGITAL ASSOCIATE MEDIA DIRECTOR Work Phone: [facility] Start: 02-12-2025 End: 02-12-2025 Patient encounter procedure Anayeli Heaton NP Work Phone: [facility] Comment on above: Medicare annual well ness visit, subsequent (Primary Dx); Tobacco dependence; Mild episode of recurrent major depressive disorder (HCC) (CMS/HCC); Primary hypertension (CMS/HCC); Adenocarcinoma of right lung (CMS/HCC) Start: 02-12-2025 End: 02-12-2025 ambulatory ANAYELI HEATON Not Available Start: 02-10-2025 End: 02-10-2025 Refill Anyaeli Heaton NP Work Phone: [facility] Comment on above: 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) (CMS/HCC); 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) Start: 02-06-2025 End: 02-06-2025 Office outpatient visit 25 minutes Jaya Bai MD Work Phone: Hematology/Oncology Comment on above: Malignant neoplasm o f upper lobe of right lung (HCC) (Primary Dx); Non-caseating granuloma; Lung nodules; Tobacco use disorder; Megaloblastic anemia due to vitamin B12 deficiency; Malignant neoplasm of unspecified part of unspecified bronchus or lung (HCC); Nicotine dependence, cigarettes, uncomplicated; Other vitamin B12 deficiency anemia; Encounter for follow-up examination after completed treatment for conditions other than malignant neoplasm; Generalized abdominal pain Start: 02-06-2025 End: 02-06-2025 ambulatory JAYA BAI Facility:[facility] Start: 01-30-2025 End: 01-31-2025 Clinisync Result Encounter Generic External Data Provider [facility] External Department Unsolicited Start: 01-30-2025 End: 01-31-2025 Clinisync Result Encounter Generic External Data Provider [facility] External Department Unsolicited Start: 01-30-2025 ambulatory SHAIKH LOWELL Facility: [facility] Start: 01-30-2025 End: 01-30-2025 Subsequent hospital visit by physician Arrival Time Radiology Work Phone: [facility]iology [facility] Comment on above: Malignant neoplasm o f upper lobe of right lung (HCC) [C34.11] Start: 01-14-2025 End: 01-14-2025 Refill Tom Benton MD Work Phone: [facility] Comment on above: 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) Start: 01-13-2025 End: 01-13-2025 Refill Tom Benton MD Work Phone: [facility] Comment on above: 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) Start: 01-03-2025 End: 01-05-2025 Refill Anayeli Heaton DIGITAL ASSOCIATE MEDIA DIRECTOR Work Phone: [facility] Comment on above: 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) (CMS/HCC) (Primary Dx) Start: 12-26-2024 End: 12-26-2024 Office outpatient visit 25 minutes Anayeli Heaton DIGITAL ASSOCIATE MEDIA DIRECTOR Work Phone: [facility] Comment on above: 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) (CMS/HCC) (Primary Dx); Adenocarcinoma of right lung (CMS/HCC); Chronic systolic (congestive) heart failure; Primary hypertension (CMS/HCC); Male erectile dysfunction, unspecified; Tobacco dependence Start: 12-26-2024 End: 12-26-2024 ambulatory ANAYELI HEATON Not Available Start: 12-26-2024 End: 12-26-2024 Bamboo flowsheet Anayeli Heaton DIGITAL ASSOCIATE MEDIA DIRECTOR Work Phone: [facility] Start: 12-26-2024 End: 12-26-2024 Bamboo flowsheet Anayeli Nunujoblupe DIGITAL ASSOCIATE MEDIA DIRECTOR Work Phone: [facility] Start: 11-07-2024 End: 11-07-2024 Clinisync Result Encounter Generic External Data Provider [facility] External Department Unsolicited Start: 11-07-2024 End: 11-07-2024 Clinisync Result Encounter Generic External Data Provider [facility] External Department Unsolicited Start: 11-07-2024 End: 11-07-2024 Office outpatient visit 25 minutes Jaya Bai MD Work Phone: Hematology/Oncology Comment on above: Malignant neoplasm o f upper lobe of right lung (HCC) (Primary Dx); Non-caseating granuloma; Abnormal finding on GI tract imaging; Anemia, unspecified type Start: 11-07-2024 End: 11-18-2024 Telephone encounter Jaya Bai MD Work Phone: [facility] Comment on above: Results Start: 11-07-2024 End: 11-07-2024 ambulatory JAYA BAI Facility:[facility] Start: 11-07-2024 End: 11-07-2024 Subsequent hospital visit by physician Arrival Time Radiology Work Phone: Radiology [facility] Comment on above: Malignant neoplasm o f upper lobe of right lung (HCC) [C34.11] Start: 10-16-2024 End: 10-16-2024 ambulatory [facility] Work Phone: Start: 10-16-2024 End: 10-16-2024 Patient encounter procedure [facility] Work Phone: Start: 10-15-2024 End: 10-15-2024 Refill Kasandra Young MA [facility] Comment on above: 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) Start: 10-10-2024 End: 10-10-2024 Office outpatient visit 25 minutes Maliha Lentz DO Work Phone: [facility] Comment on above: Chronic obstructive pulmonary disease, unspecified COPD type (CMS-HCC) (Primary Dx); Cancer of trachea, bronchus, and lung (CMS-HCC); Smoker Start: 10-10-2024 End: 10-10-2024 ambulatory [facility] [place] [facility] Start: 10-01-2024 End: 10-02-2024 Refill Kasandra Young MA [facility] Comment on above: Male erectile dysfun ction, unspecified Start: 09-27-2024 End: 09-30-2024 Refill Jasen Vasques DIGITAL ASSOCIATE MEDIA DIRECTOR Work Phone: [facility] Comment on above: Male erectile dysfun ction, unspecified Start: 09-18-2024 End: 09-18-2024 Telephone encounter Wilmer Rosas RN Hematology/Oncology Comment on above: Results Start: 09-13-2024 End: 09-13-2024 Clinisync Result Encounter Jasen Vasques DIGITAL ASSOCIATE MEDIA DIRECTOR Work Phone: [facility] External Department Unsolicited Start: 09-13-2024 End: 09-13-2024 Clinisync Result Encounter Jasen Vasques DIGITAL ASSOCIATE MEDIA DIRECTOR Work Phone: [facility] External Department Unsolicited Start: 09-13-2024 End: 09-16-2024 Refill Malhia Lentz DO Work Phone: [facility] Comment on above: Chronic obstructive pulmonary disease, unspecified COPD type (CMS-HCC) Hypokalemia; Chronic obstructive pulmonary disease, unspecified (CMS/HCC) Start: 09-12-2024 End: 09-12-2024 Clinisync Result Encounter Generic External Data Provider [facility] External Department Unsolicited Start: 09-12-2024 End: 09-12-2024 Clinisync Result Encounter Generic External Data Provider [facility] External Department Unsolicited Start: 09-12-2024 End: 09-13-2024 Telephone encounter Jaya Bai MD Work Phone: [facility] Comment on above: Results Start: 09-12-2024 End: 09-12-2024 Office outpatient visit 25 minutes Jaya Bai MD Work Phone: Hematology/Oncology Comment on above: Malignant neoplasm o f upper lobe of right lung (HCC) (Primary Dx); Malignant neoplasm of unspecified part of unspecified bronchus or lung (HCC); Lung nodules; Non-caseating granuloma; Malignant neoplasm of overlapping sites of right lung (HCC) Start: 09-12-2024 End: 09-12-2024 ambulatory SHAIKH LOWELL Facility:[facility] Start: 09-12-2024 End: 09-12-2024 Subsequent hospital visit by physician Arrival Time Radiology Work Phone: Radiology [facility] Comment on above: Malignant neoplasm o f unspecified part of unspecified bronchus or lung (HCC) [C34.90] Start: 09-11-2024 End: 09-11-2024 Bamboo flowsheet Jasen Vasques DIGITAL ASSOCIATE MEDIA DIRECTOR Work Phone: [facility] Start: 09-11-2024 End: 09-11-2024 Bamboo flowsheet Jasen Vasques DIGITAL ASSOCIATE MEDIA DIRECTOR Work Phone: [facility] Start: 09-11-2024 End: 09-11-2024 Office outpatient visit 15 minutes Jasen Vasques DIGITAL ASSOCIATE MEDIA DIRECTOR Work Phone: [facility] Comment on above: Hyperlipidemia, unsp ecified hyperlipidemia type (CMS/HCC) (Primary Dx); Panlobular emphysema (CMS/HCC); Depression, unspecified (CMS/HCC); Primary hypertension (CMS/HCC) Start: 09-11-2024 End: 09-11-2024 ambulatory JASEN VASQUES Not Available Start: 08-15-2024 End: 08-15-2024 Telephone encounter Maliha Lentz DO Work Phone: [facility] Start: 08-06-2024 End: 08-06-2024 Refill Kasandra Young MA [facility] Comment on above: Heart failure, unspe cified (CMS/HCC) Start: 07-24-2024 End: 07-24-[address] [facility] Facility:[facility] Start: 07-24-2024 End: 07-24-2024 Office outpatient visit 25 minutes Jaya Bai MD Work Phone: Hematology/Oncology Comment on above: Malignant neoplasm o f unspecified part of unspecified bronchus or lung (HCC) (Primary Dx); Abnormal finding on GI tract imaging; Lung nodules; Non-caseating granuloma Start: 07-22-2024 End: 07-22-2024 Patient encounter procedure [facility] Work Phone: Start: 07-19-2024 End: 07-19-2024 Clinisync Result Encounter Generic External Data Provider [facility] External Department Unsolicited Start: 07-19-2024 End: 07-19-2024 Clinisync Result Encounter Generic External Data Provider [facility] External Department Unsolicited Start: 07-19-2024 End: 07-19-[address] [facility] Facility:[facility] Start: 07-19-2024 End: 07-19-2024 Subsequent hospital visit by physician Arrival Time Radiology Work Phone: Radiology Pet CT Comment on above: Malignant neoplasm o f unspecified part of unspecified bronchus or lung (HCC) [C34.90] Start: 06-14-2024 End: 06-17-2024 Refill Jasen Vasques DIGITAL ASSOCIATE MEDIA DIRECTOR Work Phone: [facility] Comment on above: Depression, unspecif ied (CMS/HCC) Start: 06-05-2024 End: 06-05-2024 Refill Jasen Vasques DIGITAL ASSOCIATE MEDIA DIRECTOR Work Phone: [facility] Comment on above: Hypokalemia; Essential (primary) hypertension (CMS/HCC) Start: 06-03-2024 End: 06-03-2024 Bamboo flowsheet Jasen Vasques DIGITAL ASSOCIATE MEDIA DIRECTOR Work Phone: [facility] Start: 06-03-2024 End: 06-03-2024 Bamboo flowsheet Jasen Vasques DIGITAL ASSOCIATE MEDIA DIRECTOR Work Phone: [facility] Start: 06-03-2024 End: 06-03-2024 Office outpatient visit 15 minutes Jasen Vasques DIGITAL ASSOCIATE MEDIA DIRECTOR Work Phone: [facility] Comment on above: Primary hypertension (CMS/HCC) (Primary Dx); Hyperlipidemia, unspecified hyperlipidemia type (CMS/HCC); Chronic idiopathic constipation; Panlobular emphysema (CMS/HCC) Start: 06-03-2024 End: 06-03-2024 ambulatory JASEN VASQUES Not Available Start: 05-21-2024 End: 05-21-2024 Refill Lou [facility] Comment on above: Chronic obstructive pulmonary disease, unspecified (CMS/HCC) Start: 05-15-2024 End: 05-17-2024 Refill Lou [facility] Comment on above: Chronic idiopathic c onstipation Start: 05-14-2024 End: 05-14-2024 Refill Jasen Vasques DIGITAL ASSOCIATE MEDIA DIRECTOR Work Phone: [facility] Comment on above: Hypokalemia Start: 04-18-2024 Telephone encounter Jaya jones MD Work Phone: Hematology/Oncology Comment on above: Orders Results Start: 04-18-2024 End: 04-18-2024 Office outpatient visit 25 minutes Jaya Bai MD Work Phone: Hematology/Oncology Comment on above: Malignant neoplasm o f unspecified part of unspecified bronchus or lung (HCC) (Primary Dx); Abnormal finding on GI tract imaging; Malignant neoplasm of lung, unspecified laterality, unspecified part of lung (HCC) Start: 04-18-2024 End: 04-18-2024 ambulatory SHAIKH LOWELL Facility:[facility] Start: 04-18-2024 End: 04-18-2024 Subsequent hospital visit by physician Arrival Time Radiology Work Phone: Radiology Pet CT Comment on above: Lung nodules [R91.8] Start: 04-03-2024 End: 04-03-2024 ambulatory [facility] Start: 03-01-2024 End: 03-01-2024 Office outpatient visit 25 minutes Jaya Bai MD Work Phone: Hematology/Oncology Comment on above: Lung nodules (Primar y Dx); Malignant neoplasm of unspecified part of unspecified bronchus or lung (HCC) Start: 02-26-2024 End: 02-26-2024 ambulatory SHAIKH LOWELL Not Available Start: 02-23-2024 End: 02-23-2024 Subsequent hospital visit by physician Arrival Time Radiology Work Phone: Radiology Pet CT Comment on above: Lower abdominal pain [R10.30] Start: 11-20-2023 ambulatory Natacha Hutch[facility] Work Phone: Hematology/Oncology Start: 11-17-2023 End: 11-17-2023 Office outpatient visit 25 minutes Jaya Bai MD Work Phone: Hematology/Oncology Comment on above: Lower abdominal pain (Primary Dx); Malignant neoplasm of upper lobe of right lung (HCC) Start: 11-13-2023 Telephone encounter Wilmer Mcgee Hematology/Oncology Comment on above: Results Start: 11-10-2023 End: 11-10-2023 Subsequent hospital visit by physician Arrival Time Radiology Work Phone: Radiology Pet CT Comment on above: Malignant neoplasm o f unspecified part of unspecified bronchus or lung (HCC) [C34.90] Start: 10-08-2023 Refill Shaikh Lowell HEAD Work Phone: [facility] Comment on above: 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) Start: 10-02-2023 Patient encounter procedure Shaikh Lowell HEAD Work Phone: [facility] Start: 08-18-2023 Telephone encounter Livier Wolfe RN [facility] Start: 08-14-2023 End: 08-14-2023 ambulatory Tavo Hull [facility] Other Start: 08-14-2023 Office outpatient vi sit 15 minutes Tavo Hull [facility] Gastroenterology Start: 08-11-2023 End: 08-11-2023 Office outpatient visit 25 minutes Jaya Bai MD Work Phone: Hematology/Oncology Comment on above: Malignant neoplasm o f unspecified part of unspecified bronchus or lung (HCC) (Primary Dx) Start: 08-11-2023 Telephone encounter Iliana Villarreal RN Hematology/Oncology Comment on above: Orders Start: 08-04-2023 End: 08-04-2023 Subsequent hospital visit by physician Arrival Time Radiology Work Phone: Radiology Pet CT Comment on above: Abnormal finding on GI tract imaging [R93.3] Start: 05-30-2023 End: 05-30-2023 ambulatory Paramjit Spring Facility:[facility] Start: 05-30-2023 End: 05-30-2023 Admission to same day surgery center MD Shaikh Etienne Work Phone: [facility] Work Phone: Start: 05-30-2023 End: 05-30-2023 ambulatory MD Shaikh Etienne Work Phone: [facility] Work Phone: Start: 05-05-2023 End: 05-05-2023 Office outpatient visit 25 minutes Jaya Bai MD Work Phone: Hematology/Oncology Comment on above: Abnormal finding on GI tract imaging (Primary Dx); Malignant neoplasm of unspecified part of unspecified bronchus or lung (HCC) Start: 05-05-2023 Telephone encounter J[facility] jones MD [facility] Comment on above: Referral Information (GI) Start: 04-28-2023 End: 04-28-2023 Subsequent hospital visit by physician Arrival Time Radiology Work Phone: Radiology Pet CT Comment on above: Malignant neoplasm o f unspecified part of unspecified bronchus or lung (HCC) [C34.90] Start: 03-03-2023 End: 03-03-2023 Office outpatient visit 25 minutes Jaya Bai MD Work Phone: Hematology/Oncology Comment on above: Malignant neoplasm o f unspecified part of unspecified bronchus or lung (HCC) (Primary Dx); Lung nodules Start: 02-21-2023 End: 02-21-2023 Subsequent hospital visit by physician Arrival Time Radiology Work Phone: Radiology Pet CT Comment on above: Malignant neoplasm o f unspecified part of unspecified bronchus or lung (HCC) [C34.90] Start: 01-06-2023 End: 01-07-2023 ambulatory SHAIKH Job ETIENNE Facility: Start: 01-04-2023 End: 01-04-2023 Office outpatient visit 25 minutes Jaya Bai MD Work Phone: Hematology/Oncology Comment on above: Malignant neoplasm o f unspecified part of unspecified bronchus or lung (HCC) (Primary Dx) Start: 01-04-2023 End: 01-04-2023 Subsequent hospital visit by physician Arrival Time Radiology Work Phone: Radiology Pet CT Comment on above: Malignant neoplasm o f unspecified part of unspecified bronchus or lung (HCC) [C34.90] Start: 11-22-2022 Telephone encounter Jaya jones MD Work Phone: [facility] Comment on above: Appointment Confirma tion Start: 11-22-2022 End: 11-22-2022 ambulatory Jaya Bai MD Work Phone: Hematology/Oncology Comment on above: Malignant neoplasm o f unspecified part of unspecified bronchus or lung (HCC) (Primary Dx); Lung nodules; Positive TB test; Non-caseating granuloma Start: 11-22-2022 End: 11-22-2022 Telemedicine consultation with patient Jaya Bai MD Work Phone: [place] Start: 11-01-2022 Telephone encounter Jaya jones MD Work Phone: Hematology/Oncology Comment on above: Records faxed Start: 10-07-2022 End: 10-07-2022 Office outpatient visit 25 minutes Jaya Bai MD Work Phone: Hematology/Oncology Comment on above: Malignant neoplasm o f unspecified part of unspecified bronchus or lung (HCC) (Primary Dx) Start: 09-30-2022 End: 09-30-2022 Subsequent hospital visit by physician Arrival Time Radiology Work Phone: Radiology Pet CT Comment on above: Lung nodules [R91.8] Start: 09-19-2022 Telephone encounter Evangelina Sim RN Hematology/Oncology Comment on above: Results Start: 09-15-2022 Telephone encounter Jaya jonse MD [facility] Comment on above: Appointment Consult Start: 09-15-2022 End: 09-15-2022 Subsequent hospital visit by physician Arrival Time Radiology Work Phone: Radiology Pet CT Comment on above: Cancer of trachea, b ronchus, 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, C34.80] Start: 07-21-2022 End: 07-21-2022 ambulatory Jaya Bai MD Work Phone: Hematology/Oncology Comment on above: Cancer of trachea, b ronchus, and lung (HCC) (Primary Dx); Lung nodules; Panlobular emphysema (HCC) Start: 07-21-2022 End: 07-21-2022 Patient encounter procedure Jaya Bai MD Work Phone: [place] Start: 07-14-2022 End: 07-14-2022 Subsequent hospital visit by physician Arrival Time Radiology Work Phone: Radiology Pet CT Comment on above: Malignant neoplasm o f unspecified part of unspecified bronchus or lung (HCC) [C34.90] Start: 04-14-2022 End: 04-14-2022 Patient encounter procedure MD Shaikh Etienne Work Phone: [facility] Start: 04-01-2022 Telephone encounter Evangelina Sim [...] Jaya Bai MD Work Phone: [facility] Start: 03-31-2022 End: 03-31-2022 Subsequent hospital visit by physician Arrival Time Radiology Work Phone: Radiology Pet CT Comment on above: Malignant neoplasm o f unspecified part of unspecified bronchus or lung (HCC) [C34.90] Start: 03-15-2022 End: 03-16-[address] SYDNIE [...] 01-05-2022 End: 01-05-2022 Admission to establishment [facility] Work Phone: [place] Start: 01-05-2022 End: 01-05-[address] [facility] Work Phone: Pre Anesthesia Comment on [...] with patient Jaya Bai MD Work Phone: [place] Start: 12-10-2021 End: 12-10-2021 Subsequent hospital visit by physician Arrival Time Radiology Work Phone: Radiology Pet CT Comment on above: Enlarged lymph node [R59.9] Start: 10-22-2021 End: 10-22-2021 Subsequent hospital visit by physician Arrival Time Radiology Work Phone: Radiology Pet CT Comment on above: Enlarged lymph node [R59.9] Procedures Date Procedure Procedure Detail Performing Clinician Start: 04-11-2025 NM DELORIS PERF SPECT REST STR Generic Exter nal Data Provider Start: 02-21-2025 CA ECHO DOPPLER COMPLETE Generic Externa l Data Provider Start: 01-30-2025 CT ABD/PEL W IVCON Generic External Data Provider Start: 01-30-2025 Ct thorax w/contrast material Generic Ex ternal Data Provider Start: 01-30-2025 [facility] CBC W AUTO DIFF BLD Generic External Data Provider Start: 01-30-2025 Blood count complete auto&auto difrntl wbc Jaya Bai MD Work Phone: Start: 01-30-2025 FERRITIN BLD Jaya Bai MD Work Phone: Start: 01-30-2025 Folate [Mass/volume] in Serum or Plasma Jaya Bai MD Work Phone: Start: 11-07-2024 [facility] CBC W AUTO DIFF BLD Generic External Data Provider Start: 11-07-2024 Blood count complete auto&auto difrntl wbc Jaya Bai MD Work Phone: Start: 10-10-2024 Follow-up visit Follow-up MALIHA LENTZ Start: 09-13-2024 ALL LIPID PROFILE (FASTING) Jasen santana DIGITAL ASSOCIATE MEDIA DIRECTOR Work Phone: Start: 09-12-2024 Ct thorax w/contrast material Jaya jones MD Work Phone: Start: 09-12-2024 [facility] CBC W AUTO DIFF BLD Generic External Data Provider Start: 09-12-2024 Blood count complete auto&auto difrntl wbc Jaya Bai MD Work Phone: Start: 07-19-2024 [facility] COMP METAB 2000 PNL SERPL Generic Ex ternal Data Provider Start: 07-19-2024 [facility] CBC W AUTO DIFF BLD Generic External Data Provider Start: 07-19-2024 End: 07-19-2024 Blood count complete auto&auto difrntl wbc Jaya Bai MD Work Phone: Start: 04-18-2024 Blood count complete auto&auto difrntl wbc Jaya Bai MD Work Phone: Start: 04-18-2024 Ct thorax w/contrast material Jaya jones MD Work Phone: Start: 02-23-2024 Ct abdomen & pelvis w/contrast material Jaya Bai MD Work Phone: Start: 02-23-2024 Ct thorax w/contrast material Jaya jones MD Work Phone: Start: 02-23-2024 Blood count complete auto&auto difrntl wbc Jaya Bai MD Work Phone: Start: 11-10-2023 Ct thorax w/contrast material Jaya jones MD Work Phone: Start: 11-10-2023 Blood count complete auto&auto difrntl wbc Jaya Bai MD Work Phone: Start: 08-04-[address] attenuation skull base mid-thigh Jaya Bai MD Work Phone: Start: 08-04-2023 End: 08-04-2023 Blood count complete auto&auto difrntl wbc Jaya Bai MD Work Phone: Start: 05-30-2023 Esophagogastroduodenoscopy MD Shaikh Zina garcia Work Phone: Start: 04-28-[address] attenuation skull base mid-thigh Jaya Bai MD Work Phone: Start: 04-28-2023 End: 04-28-2023 Blood count complete auto&auto difrntl wbc Jaya Bai MD Work Phone: Start: 02-21-[address] attenuation skull base mid-thigh Jaya Bai MD Work Phone: Start: 02-21-2023 Gluc bld gluc mntr dev cleared fda spec home use [facility] Provider Start: 01-04-2023 Ct abdomen & pelvis w/contrast material Jaya Bai MD Work Phone: Start: 01-04-2023 Ct thorax w/contrast material Jaya jones MD Work Phone: Start: 01-04-2023 Blood count complete auto&auto difrntl wbc Jaya Bai MD Work Phone: Start: 09-30-[address] attenuation skull base mid-thigh Jaya Bai MD Work Phone: Start: 09-30-2022 Gluc bld gluc mntr dev cleared fda spec home use [facility] Provider Start: 09-15-2022 Ct thorax w/contrast material Jaya jones MD Work Phone: Start: 09-15-2022 Blood count complete auto&auto difrntl wbc Jaya Bai MD Work Phone: Start: 07-14-2022 Ct thorax w/contrast material Jaya jones MD Work Phone: Start: 07-14-2022 Blood count complete auto&auto difrntl wbc Jaya Bai MD Work Phone: Start: 04-18-2022 Garry Etienne MD Work Phone: Start: 03-31-2022 Ct thorax w/contrast material Jaya jones MD Work Phone: Start: 03-31-2022 Blood count complete auto&auto difrntl wbc Jaya Bai MD Work Phone: Start: 01-05-2022 History of coronary artery bypass grafting Hx of CABG [facility] 3 Work Phone: Start: 12-10-2021 Ct abdomen & pelvis w/contrast material Jaya Bai MD Work Phone: Start: 12-10-2021 Blood count complete auto&auto difrntl wbc Jaya Bai MD Work Phone: Start: 10-22-2021 Ct abdomen & pelvis w/contrast material Glenna Cabrera APRN.BOLOGNA LACER Work Phone: Start: 10-22-2021 Ct thorax w/contrast material Glenna mendieta APRN.BOLOGNA LACER Work Phone: Start: 02-05-2021 Adult depression screening assessment Jaya Bai MD Work Phone: SARS Antigen (LFIA) MD Shaik job Etienne Work Phone: Plan of Treatment Date Care Activity Detail Author Start: 04-18-2032 Screening for malign ant neoplasm of colon [facility] Start: 01-31-2028 Diabetes Screening [facility] Start: 11-08-2027 Diabetes Screening Diabetes [facility] Start: 09-12-2027 Diabetes Screening Diabetes [facility] Start: 07-19-2027 Diabetes Screening Diabetes [facility] Start: 04-18-2027 Diabetes Screening Diabetes [facility] Start: 02-22-2027 Diabetes Screening Diabetes [facility] Start: 11-09-2026 Diabetes Screening Diabetes [facility] Start: 08-04-2026 Diabetes Screening Diabetes [facility] Start: 04-28-2026 Diabetes Screening Diabetes [facility] Start: 02-20-2026 Adult BMI Screening Adult BMI Screen ing [facility] Start: 02-20-2026 Tobacco Screening Tobacco Screening [facility] Start: 02-18-2026 End: 02-18-2026 Patient encounter procedure 02/18/2026 4:30 PM EDT Office Visit [facility] [address] [place] [address] Anayeli Heaton NP [address] [place] [id number] [facility] Start: 02-12-2026 Medicare Annual Well ness (AWV) Medicare Annual Wellness (AWV) [facility] Start: 02-06-2026 BP Controlled (<130/80) BP Controlle d (<130/80) [facility] Start: 01-04-2026 DIABETES SCREEN DIABETES SCREEN [facility] Start: 11-07-2025 BP Controlled (<130/80) BP Controlle d (<130/80) [facility] Start: 10-10-2025 Adult BMI Screening Adult BMI Screen ing [facility] Start: 10-10-2025 Tobacco Screening Tobacco Screening [facility] Start: 10-07-2025 DIABETES SCREEN DIABETES SCREEN [facility] Start: 09-15-2025 DIABETES SCREEN DIABETES SCREEN [facility] Start: 09-12-2025 BP Controlled (<130/80) BP Controlle d (<130/80) [facility] Start: 09-11-2025 Pneumococcal Vaccine : 65+ Years (1 of 2 - PCV) Pneumococcal Vaccine: 65+ Years (1 of 2 - PCV) [facility] Comment on above: Postponed from 03/05 (Patient Refused) Postponed from 03/05 (Patient Refused) Start: 08-07-2025 End: 08-07-2025 Patient encounter procedure 08/07/2025 11:45 AM EST Office Visit [facility] [address] [place] [id number] [place] [address] [place] [address] [facility] Start: 07-24-2025 BP Controlled (<130/80) BP Controlle d (<130/80) [facility] Start: 07-14-2025 DIABETES SCREEN DIABETES SCREEN [facility] Start: 05-12-2025 End: 05-12-2025 Patient encounter procedure 05/12/2025 1:30 PM EDT Office Visit [facility] [address] [place] [address] Anayeli Heaton NP [address] [place] [address] [facility] Start: 05-08-2025 End: 05-08-2025 ambulatory 05/08/2025 2:40 PM EDT Visit (SP) Office Hematology/Oncology [address] [place] [address] Jaya Bai MD [address] [place] [address] Ct Chest with contrast and lab Hematology/Oncology Comment on above: Ct Chest with contra st and lab Start: 05-05-2025 Influenza vaccination [facility] Start: 05-01-2025 End: 07-31-2025 CBC W Auto Differential panel - Blood COMPLETE BLOOD COUNT AND DIFFERENTIAL Lab Routine Cancer of trachea, bronchus, and lung (HCC) Expected: 05/01/2025 (Approximate), Expires: 07/31/2025 [facility] Comment on above: Expected: 05/01/2025 (Approximate), Expires: 07/31/2025 Start: 05-01-2025 End: 07-31-2025 Comprehensive metabolic 2000 panel - Serum or Plasma COMPREHENSIVE METABOLIC PANEL Lab Routine Cancer of trachea, bronchus, and lung (HCC) Expected: 05/01/2025 (Approximate), Expires: 07/31/2025 [facility] Work Phone: Comment on above: Expected: 05/01/2025 (Approximate), Expires: 07/31/2025 Start: 05-01-2025 End: 05-01-2025 Patient encounter procedure 05/01/2025 1:15 PM EDT Appointment Radiology Pet CT [address] [place] [address] Ct Chest with contrast and lab Radiology Pet CT Comment on above: Ct Chest with contra st and lab Start: 04-24-2025 End: 03-08-2026 CT Chest W contrast IV CT CHEST W IVCON Radiology Routine Malignant neoplasm of upper lobe of right lung (HCC) Malignant neoplasm of unspecified part of unspecified bronchus or lung (HCC) Expected: 04/24/2025 (Approximate), Expires: 03/08/2026 [facility] Work Phone: Comment on above: Expected: 04/24/2025 (Approximate), Expires: 03/08/2026 Start: 04-02-2025 End: 04-02-2025 Patient encounter procedure 04/02/2025 1:20 PM EDT [facility] [address] [place] [phone] Anayeli Heaton NP [address] [place] [address] [facility] Start: 03-31-2025 DIABETES SCREEN DIABETES SCREEN [facility] Start: 03-27-2025 End: 06-26-2025 Cobalamin (Vitamin B12) [Mass/volume] in Serum or Plasma VITAMIN B12 Lab Routine Cancer of trachea, bronchus, and lung (HCC) Expected: 03/27/2025, Expires: 06/26/2025 [facility] Comment on above: Expected: 03/27/2025 , Expires: 06/26/2025 Start: 03-27-2025 End: 06-26-2025 Ferritin [Mass/volume] in Serum or Plasma FERRITIN Lab Routine Cancer of trachea, bronchus, and lung (HCC) Expected: 03/27/2025, Expires: 06/26/2025 [facility] Comment on above: Expected: 03/27/2025 , Expires: 06/26/2025 Start: 03-27-2025 End: 06-26-2025 Folate [Mass/volume] in Serum or Plasma FOLATE, SERUM Lab Routine Cancer of trachea, bronchus, and lung (HCC) Expected: 03/27/2025, Expires: 06/26/2025 [facility] Comment on above: Expected: 03/27/2025 , Expires: 06/26/2025 Start: 03-27-2025 End: 06-26-2025 Iron and Iron binding capacity panel - Serum or Plasma IRON AND TIBC Lab Routine Cancer of trachea, bronchus, and lung (HCC) Expected: 03/27/2025, Expires: 06/26/2025 [facility] Comment on above: Expected: 03/27/2025 , Expires: 06/26/2025 Start: 03-01-2025 BP Controlled (<130/80) BP Controlle d (<130/80) [facility] Start: 02-20-2025 End: 02-20-2025 Patient encounter procedure 02/20/2025 2:45 PM EDT Office Visit [facility] [address] [place] [address] Maliha Lentz, [address] [address] [facility] Start: 02-12-2025 End: 02-12-2025 Patient encounter procedure [facility] Comment on above: Medicare annual well ness visit, subsequent (Primary Dx); Tobacco dependence; Mild episode of recurrent major depressive disorder (HCC) (CMS/HCC); Primary hypertension (CMS/HCC); Adenocarcinoma of right lung (CMS/HCC) Start: 02-06-2025 End: 02-06-2025 Follow-up encounter 02/06/2025 1:00 PM EDT Visit (SP) Office Hematology/Oncology [address] [place] [address] [place] [address] Jaya Bai MD [address] [place] [address] [place] [id number] SCAN Hematology/Oncology Comment on above: [address] SCAN Start: 01-30-2025 End: 01-30-2025 Follow-up encounter 01/30/2025 3:20 PM EDT Visit (SP) Office Hematology/Oncology [address] [place] [address] [place] [address] Jaya Bai MD [address] [place] [address] SCAN SAME DAY Hematology/Oncology Comment on above: [address] SCAN SAME DAY Start: 01-30-2025 End: 11-07-2025 CBC W Auto Differential panel - Blood COMPLETE BLOOD COUNT AND DIFFERENTIAL Lab Routine Malignant neoplasm of upper lobe of right lung (HCC) Non-caseating granuloma Abnormal finding on GI tract imaging Anemia, unspecified type Expected: 01/30/2025, Expires: 11/07/2025 [facility] Comment on above: Expected: 01/30/2025 , Expires: 11/07/2025 Start: 01-30-2025 End: 11-07-2025 Cobalamin (Vitamin B12) [Mass/volume] in Serum or Plasma VITAMIN B12 Lab Routine Malignant neoplasm of upper lobe of right lung (HCC) Non-caseating granuloma Abnormal finding on GI tract imaging Anemia, unspecified type Expected: 01/30/2025, Expires: 11/07/2025 [facility] Comment on above: Expected: 01/30/2025 , Expires: 11/07/2025 Start: 01-30-2025 End: 11-07-2025 Comprehensive metabolic 2000 panel - Serum or Plasma COMPREHENSIVE METABOLIC PANEL Lab Routine Malignant neoplasm of upper lobe of right lung (HCC) Non-caseating granuloma Abnormal finding on GI tract imaging Anemia, unspecified type Expected: 01/30/2025, Expires: 11/07/2025 [facility] Comment on above: Expected: 01/30/2025 , Expires: 11/07/2025 Start: 01-30-2025 End: 12-07-2025 CT Abdomen and Pelvis W contrast IV [facility] Work Phone: Comment on above: Expected: 01/30/2025 (Approximate), Expires: 12/07/2025 Start: 01-30-2025 End: 12-07-2025 CT Chest W contrast IV [facility] Comment on above: Expected: 01/30/2025 (Approximate), Expires: 12/07/2025 Start: 01-30-2025 End: 05-01-2025 Erythropoietin (EPO) [Units/volume] in Serum or Plasma [facility] Comment on above: Expected: 01/30/2025 , Expires: 05/01/2025 Start: 01-30-2025 End: 11-07-2025 Ferritin [Mass/volume] in Serum or Plasma FERRITIN Lab Routine Malignant neoplasm of upper lobe of right lung (HCC) Non-caseating granuloma Abnormal finding on GI tract imaging Anemia, unspecified type Expected: 01/30/2025, Expires: 11/07/2025 [facility] Comment on above: Expected: 01/30/2025 , Expires: 11/07/2025 Start: 01-30-2025 End: 11-07-2025 Folate [Mass/volume] in Serum or Plasma FOLATE, SERUM Lab Routine Malignant neoplasm of upper lobe of right lung (HCC) Non-caseating granuloma Abnormal finding on GI tract imaging Anemia, unspecified type Expected: 01/30/2025, Expires: 11/07/2025 [facility] Comment on above: Expected: 01/30/2025 , Expires: 11/07/2025 Start: 01-30-2025 End: 11-07-2025 Iron and Iron binding capacity panel - Serum or Plasma IRON AND TIBC Lab Routine Malignant neoplasm of upper lobe of right lung (HCC) Non-caseating granuloma Abnormal finding on GI tract imaging Anemia, unspecified type Expected: 01/30/2025, Expires: 11/07/2025 [facility] Comment on above: Expected: 01/30/2025 , Expires: 11/07/2025 Start: 01-30-2025 End: 01-30-2025 Patient encounter procedure 01/30/2025 1:45 PM EDT Appointment Radiology Pet CT [address] [place] [address] [place] [address] CT CAP W IV Radiology Pet CT Comment on above: CT CAP W IV Start: 01-05-2025 DIABETES SCREEN DIABETES SCREEN [facility] Start: 12-26-2024 End: 12-26-2024 Patient encounter procedure [facility] Comment on above: Adenocarcinoma of ri ght lung (CMS/HCC) (Primary Dx); Chronic systolic (congestive) heart failure; Primary hypertension (CMS/HCC) Start: 12-12-2024 End: 12-12-2024 Patient encounter procedure 12/12/2024 2:30 PM EDT Office Visit [facility] [address] [place] [address] Jasen Vasques NP [address] [place] [address] [facility] Start: 12-10-2024 DIABETES SCREEN DIABETES SCREEN [facility] Start: 11-07-2024 End: 09-12-2025 CBC W Auto Differential panel - Blood COMPLETE BLOOD COUNT AND DIFFERENTIAL Lab Routine Malignant neoplasm of upper lobe of right lung (HCC) Expected: 11/07/2024 (Approximate), Expires: 09/12/2025 [facility] Comment on above: Expected: 11/07/2024 (Approximate), Expires: 09/12/2025 Start: 11-07-2024 End: 09-12-2025 Comprehensive metabolic 2000 panel - Serum or Plasma COMPREHENSIVE METABOLIC PANEL Lab Routine Malignant neoplasm of upper lobe of right lung (HCC) Expected: 11/07/2024 (Approximate), Expires: 09/12/2025 [facility] Comment on above: Expected: 11/07/2024 (Approximate), Expires: 09/12/2025 Start: 11-07-2024 End: 10-12-2025 CT Abdomen and Pelvis W contrast IV [facility] Work Phone: Comment on above: Expected: 11/07/2024 (Approximate), Expires: 10/12/2025 Start: 11-07-2024 End: 10-12-2025 CT Chest W contrast IV [facility] Comment on above: Expected: 11/07/2024 (Approximate), Expires: 10/12/2025 Start: 11-07-2024 End: 11-07-2024 Follow-up encounter 11/07/2024 2:00 PM EST Visit (SP) Office Hematology/Oncology [address] [place] [address] Jaya Bai MD [address] [place] [address] [address] up [address] same day Hematology/Oncology Comment on above: 8 week follow up wit h CT same day Start: 11-07-2024 End: 11-07-2024 Patient encounter procedure 11/07/2024 12:45 PM EST Appointment Radiology Pet CT [address] [place] [address] CT CAP W IV Radiology Pet CT Comment on above: CT CAP W IV Start: 11-06-2024 Influenza vaccination Influenza Vacc ine (#1) [facility] Comment on above: Postponed from 05/05 (Patient Refused) Start: 10-10-2024 End: 10-10-2024 Patient encounter procedure 10/10/2024 1:30 PM EST Office Visit [facility] [address] [place] [address] Maliha Lentz, DO [address] [address] [facility] Start: 10-02-2024 Medicare Annual Well ness (AWV) Medicare Annual Wellness (AWV) [facility] Start: 09-12-2024 End: 09-12-2024 Follow-up encounter 09/12/2024 1:20 PM EST Visit (SP) Office Hematology/Oncology [address] [place] [address] Jaya Bai MD [address] [place] [address] follow up w/ CT same day, pt req around 1 pm time. Hematology/Oncology Comment on above: follow up w/ CT same day, pt req around 1 pm time. Start: 09-12-2024 End: 09-12-2024 Patient encounter procedure [facility] Comment on above: CT CHEST W IV - seei ng DARLEEN same day, req around 1pm time. Start: 09-11-2024 End: 08-23-2025 CT Chest W contrast IV CT CHEST W IVCON Radiology Routine Malignant neoplasm of unspecified part of unspecified bronchus or lung (HCC) Abnormal finding on GI tract imaging Lung nodules Non-caseating granuloma Expected: 09/11/2024 (Approximate), Expires: 08/23/2025 [facility] Work Phone: Comment on above: Expected: 09/11/2024 (Approximate), Expires: 08/23/2025 Start: 09-11-2024 End: 09-11-2025 Lipid 1996 panel - Serum or Plasma Lipid panel Lab Routine Hyperlipidemia, unspecified hyperlipidemia type (CMS/HCC) Expected: 09/11/2024 (Approximate), Expires: 09/11/2025 [facility] Work Phone: Comment on above: Expected: 09/11/2024 (Approximate), Expires: 09/11/2025 Start: 09-11-2024 End: 09-11-2024 Patient encounter procedure [facility] Comment on above: Arrived Start: 09-04-2024 Advance Directive Discussion Advance Directive Discussion [facility] Start: 09-04-2024 End: 07-24-2025 CBC W Auto Differential panel - Blood COMPLETE BLOOD COUNT AND DIFFERENTIAL Lab Routine Malignant neoplasm of unspecified part of unspecified bronchus or lung (HCC) Abnormal finding on GI tract imaging Lung nodules Non-caseating granuloma Expected: 09/04/2024 (Approximate), Expires: 07/24/2025 [facility] Comment on above: Expected: 09/04/2024 (Approximate), Expires: 07/24/2025 Start: 09-04-2024 End: 07-24-2025 Comprehensive metabolic 2000 panel - Serum or Plasma COMPREHENSIVE METABOLIC PANEL Lab Routine Malignant neoplasm of unspecified part of unspecified bronchus or lung (HCC) Abnormal finding on GI tract imaging Lung nodules Non-caseating granuloma Expected: 09/04/2024 (Approximate), Expires: 07/24/2025 [facility] Comment on above: Expected: 09/04/2024 (Approximate), Expires: 07/24/2025 Start: 08-17-2024 Adult BMI Screening Adult BMI Screen ing [facility] Start: 08-17-2024 Tobacco Screening Tobacco Screening [facility] Start: 07-29-2024 Influenza vaccination Influenza Vacc ine (#1) [facility] Comment on above: Postponed from 05/05 (Patient Refused) Start: 07-24-2024 End: 07-24-2024 ambulatory Hematology/Oncology Comment on above: [address] scan Start: 07-19-2024 End: 04-18-2025 CBC W Auto Differential panel - Blood COMPLETE BLOOD COUNT AND DIFFERENTIAL Lab Routine Malignant neoplasm of unspecified part of unspecified bronchus or lung (HCC) Abnormal finding on GI tract imaging Expected: 07/19/2024 (Approximate), Expires: 04/18/2025 [facility] Comment on above: Expected: 07/19/2024 (Approximate), Expires: 04/18/2025 Start: 07-19-2024 End: 04-18-2025 Comprehensive metabolic 2000 panel - Serum or Plasma COMPREHENSIVE METABOLIC PANEL Lab Routine Malignant neoplasm of unspecified part of unspecified bronchus or lung (HCC) Abnormal finding on GI tract imaging Expected: 07/19/2024 (Approximate), Expires: 04/18/2025 [facility] Comment on above: Expected: 07/19/2024 (Approximate), Expires: 04/18/2025 Start: 07-19-2024 End: 05-18-2025 CT Abdomen and Pelvis W contrast IV [facility] Work Phone: Comment on above: Expected: 07/19/2024 (Approximate), Expires: 05/18/2025 Start: 07-19-2024 End: 05-18-2025 CT Chest W contrast IV [facility] Comment on above: Expected: 07/19/2024 (Approximate), Expires: 05/18/2025 Start: 07-19-2024 End: 07-19-2024 ambulatory 07/19/2024 11:30 AM EST Visit (SP) Office Hematology/Oncology [address] [place] [address] Jaya Bai MD [address] [place] [address] scan Hematology/Oncology Comment on above: [address] scan Start: 07-19-2024 End: 07-19-2024 Patient encounter procedure 07/19/2024 10:15 AM EST Appointment Radiology Pet CT [address] [place] [address] CT CAP W IVCON & LABSneeded time due to transportation Radiology Pet CT Comment on above: CT CAP W IVCON & LAB Sneeded time due to transportation Start: 06-03-2024 End: 06-03-2024 Patient encounter procedure 06/03/2024 2:00 PM EDT Office Visit [facility] [address] [place] [address] Jasen Vasques, DIGITAL ASSOCIATE MEDIA DIRECTOR [address] [place] [address] Arrived [facility] Comment on above: Arrived Start: 05-29-2024 End: 05-29-2024 Patient encounter procedure 05/29/2024 2:00 PM EDT Office Visit [facility] [address] [place] [id number] Jasen Vasques, DIGITAL ASSOCIATE MEDIA DIRECTOR [address] [place] [address] [facility] Start: 05-05-2024 BP Controlled (<130/80) BP Controlle d (<130/80) [facility] Start: 05-05-2024 Covid-19 Vaccine ( season) Covid-19 Vaccine ( season) [facility] Start: 05-05-2024 Covid-19 Vaccine ( season) Covid-19 Vaccine ( season) [facility] Start: 05-05-2024 Influenza vaccination C [facility] Start: 04-18-2024 End: 07-18-2024 CBC W Auto Differential panel - Blood COMPLETE BLOOD COUNT AND DIFFERENTIAL Lab Routine Cancer of trachea, bronchus, and lung (HCC) Expected: 04/18/2024 (Approximate), Expires: 07/18/2024 [facility] Comment on above: Expected: 04/18/2024 (Approximate), Expires: 07/18/2024 Start: 04-18-2024 End: 07-18-2024 Comprehensive metabolic 2000 panel - Serum or Plasma COMPREHENSIVE METABOLIC PANEL Lab Routine Cancer of trachea, bronchus, and lung (HCC) Expected: 04/18/2024 (Approximate), Expires: 07/18/2024 [facility] Work Phone: Comment on above: Expected: 04/18/2024 (Approximate), Expires: 07/18/2024 Start: 04-18-2024 End: 04-18-2024 Follow-up encounter 04/18/2024 11:30 AM EDT Visit (SP) Office Hematology/Oncology [address] [place] [address] Jaya Bai MD [address] [place] [address] follow up w/ CT chest same day Hematology/Oncology Comment on above: follow up w/ CT ches t same day Start: 04-18-2024 End: 04-18-2024 Patient encounter procedure 04/18/2024 10:45 AM EDT Appointment Radiology Pet CT [address] [place] [address] CT CHEST W Radiology Pet CT Comment on above: CT CHEST W Start: 04-12-2024 End: 07-12-2024 CREATININE BLD CREATININE BLD Lab Routine Lung nodules Malignant neoplasm of unspecified part of unspecified bronchus or lung (HCC) Expected: 04/12/2024 (Approximate), Expires: 07/12/2024 [facility] Comment on above: Expected: 04/12/2024 (Approximate), Expires: 07/12/2024 Start: 04-12-2024 End: 03-31-2025 CT Chest W contrast IV CT CHEST W IVCON Radiology Routine Lung nodules Malignant neoplasm of unspecified part of unspecified bronchus or lung (HCC) Expected: 04/12/2024 (Approximate), Expires: 03/31/2025 [facility] Work Phone: Comment on above: Expected: 04/12/2024 (Approximate), Expires: 03/31/2025 Start: 03-03-2024 BP CONTROLLED (<130/80) BP CONTROLLE D (<130/80) [facility] Start: 02-17-2024 End: 11-16-2024 CBC W Auto Differential panel - Blood CBC + DIFF Lab Routine Malignant neoplasm of upper lobe of right lung (HCC) Expected: 02/17/2024 (Approximate), Expires: 11/16/2024 [facility] Work Phone: Comment on above: Expected: 02/17/2024 (Approximate), Expires: 11/16/2024 Start: 02-17-2024 End: 11-16-2024 Comprehensive metabolic 2000 panel - Serum or Plasma COMP METABOLIC PANEL Lab Routine Malignant neoplasm of upper lobe of right lung (HCC) Expected: 02/17/2024 (Approximate), Expires: 11/16/2024 [facility] Work Phone: Comment on above: Expected: 02/17/2024 (Approximate), Expires: 11/16/2024 Start: 02-17-2024 End: 12-16-2024 CT Abdomen and Pelvis W contrast IV CT ABD/PEL W IVCON Radiology Routine Lower abdominal pain Malignant neoplasm of upper lobe of right lung (HCC) Expected: 02/17/2024 (Approximate), Expires: 12/16/2024 [facility] Work Phone: Comment on above: Expected: 02/17/2024 (Approximate), Expires: 12/16/2024 Start: 02-17-2024 End: 12-16-2024 CT Chest W contrast IV CT CHEST W IVCON Radiology Routine Malignant neoplasm of upper lobe of right lung (HCC) Expected: 02/17/2024 (Approximate), Expires: 12/16/2024 [facility] Work Phone: Comment on above: Expected: 02/17/2024 (Approximate), Expires: 12/16/2024 Start: 01-01-2024 End: 01-01-2024 Patient encounter procedure 01/01/2024 1:00 PM EDT Office Visit [facility] [address] [place] [address] Anayeli Heaton NP [address] [place] [address] [facility] Start: 11-10-2023 End: 08-11-2024 CBC W Auto Differential panel - Blood CBC + DIFF Lab Routine Malignant neoplasm of unspecified part of unspecified bronchus or lung (HCC) Expected: 11/10/2023 (Approximate), Expires: 08/11/2024 [facility] Work Phone: Comment on above: Expected: 11/10/2023 (Approximate), Expires: 08/11/2024 Start: 11-10-2023 End: 08-11-2024 Comprehensive metabolic 2000 panel - Serum or Plasma COMP METABOLIC PANEL Lab Routine Malignant neoplasm of unspecified part of unspecified bronchus or lung (HCC) Expected: 11/10/2023 (Approximate), Expires: 08/11/2024 [facility] Work Phone: Comment on above: Expected: 11/10/2023 (Approximate), Expires: 08/11/2024 Start: 11-10-2023 End: 09-09-2024 CT CHEST W IVCON CT CHEST W IVCON Radiology Routine Malignant neoplasm of unspecified part of unspecified bronchus or lung (HCC) Expected: 11/10/2023 (Approximate), Expires: 09/09/2024 [facility] Work Phone: Comment on above: Expected: 11/10/2023 (Approximate), Expires: 09/09/2024 Start: 10-07-2023 BP CONTROLLED (<130/80) BP CONTROLLE D (<130/80) [facility] Start: 09-04-2023 Advance Directive Discussion Advance Directive Discussion [facility] Start: 08-24-2023 Screening for malign ant neoplasm of colon [facility] Start: 08-04-2023 End: 05-05-2024 CBC W Auto Differential panel - Blood CBC + DIFF Lab Routine Abnormal finding on GI tract imaging Malignant neoplasm of unspecified part of unspecified bronchus or lung (HCC) Expected: 08/04/2023 (Approximate), Expires: 05/05/2024 [facility] Work Phone: Comment on above: Expected: 08/04/2023 (Approximate), Expires: 05/05/2024 Start: 08-04-2023 End: 05-05-2024 Comprehensive metabolic 2000 panel - Serum or Plasma COMP METABOLIC PANEL Lab Routine Abnormal finding on GI tract imaging Malignant neoplasm of unspecified part of unspecified bronchus or lung (HCC) Expected: 08/04/2023 (Approximate), Expires: 05/05/2024 [facility] Work Phone: Comment on above: Expected: 08/04/2023 (Approximate), Expires: 05/05/2024 Start: 08-04-2023 End: 06-03-2024 NM PET/CT SKULL-THIGH SUBSEQUENT NM PET/CT SKULL-THIGH SUBSEQUENT Radiology Routine Abnormal finding on GI tract imaging Malignant neoplasm of unspecified part of unspecified bronchus or lung (HCC) Expected: 08/04/2023 (Approximate), Expires: 06/03/2024 [facility] Work Phone: Comment on above: Expected: 08/04/2023 (Approximate), Expires: 06/03/2024 Start: 06-03-2023 End: 03-03-2024 CBC W Auto Differential panel - Blood CBC + DIFF Lab Routine Malignant neoplasm of unspecified part of unspecified bronchus or lung (HCC) Lung nodules Expected: 06/03/2023 (Approximate), Expires: 03/03/2024 [facility] Work Phone: Comment on above: Expected: 06/03/2023 (Approximate), Expires: 03/03/2024 Start: 06-03-2023 End: 03-03-2024 Comprehensive metabolic 2000 panel - Serum or Plasma COMP METABOLIC PANEL Lab Routine Malignant neoplasm of unspecified part of unspecified bronchus or lung (HCC) Lung nodules Expected: 06/03/2023 (Approximate), Expires: 03/03/2024 [facility] Work Phone: Comment on above: Expected: 06/03/2023 (Approximate), Expires: 03/03/2024 Start: 06-03-2023 End: 04-01-2024 NM PET/CT SKULL-THIGH SUBSEQUENT NM PET/CT SKULL-THIGH SUBSEQUENT Radiology Routine Malignant neoplasm of unspecified part of unspecified bronchus or lung (HCC) Lung nodules Expected: 06/03/2023 (Approximate), Expires: 04/01/2024 [facility] Work Phone: Comment on above: Expected: 06/03/2023 (Approximate), Expires: 04/01/2024 Start: 05-30-2023 [facility] Start: 05-05-2023 Covid-19 Vaccine ( season) Covid-19 Vaccine ( season) [facility] Start: 05-05-2023 Influenza vaccination C [facility] Start: 03-31-2023 BP CONTROLLED (<130/80) BP CONTROLLE D (<130/80) [facility] Start: 02-19-2023 End: 02-07-2024 NM PET/CT SKULL-THIGH SUBSEQUENT NM PET/CT SKULL-THIGH SUBSEQUENT Radiology Routine Malignant neoplasm of unspecified part of unspecified bronchus or lung (HCC) Expected: 02/19/2023 (Approximate), Expires: 02/07/2024 [facility] Work Phone: Comment on above: Expected: 02/19/2023 (Approximate), Expires: 02/07/2024 Start: 01-05-2023 BP CONTROLLED (<130/80) BP CONTROLLE D (<130/80) [facility] Start: 09-15-2022 End: 07-21-2023 CBC W Auto Differential panel - Blood CBC + DIFF Lab Routine Cancer of trachea, bronchus, and lung (HCC) Expected: 09/15/2022 (Approximate), Expires: 07/21/2023 [facility] Work Phone: Comment on above: Expected: 09/15/2022 (Approximate), Expires: 07/21/2023 Start: 09-15-2022 End: 07-21-2023 Comprehensive metabolic 2000 panel - Serum or Plasma COMP METABOLIC PANEL Lab Routine Cancer of trachea, bronchus, and lung (HCC) Expected: 09/15/2022 (Approximate), Expires: 07/21/2023 [facility] Work Phone: Comment on above: Expected: 09/15/2022 (Approximate), Expires: 07/21/2023 Start: 09-15-2022 End: 08-20-2023 CT CHEST W IVCON CT CHEST W IVCON Radiology Routine Cancer of trachea, bronchus, and lung (HCC) Lung nodules Expected: 09/15/2022 (Approximate), Expires: 08/20/2023 [facility] Work Phone: Comment on above: Expected: 09/15/2022 (Approximate), Expires: 08/20/2023 Start: 09-04-2022 ADVANCE DIRECTIVE DISCUSSION ADVANCE DIRECTIVE DISCUSSION [facility] Start: 08-03-2022 End: 04-03-2023 CBC W Auto Differential panel - Blood CBC + DIFF Lab Routine Malignant neoplasm of unspecified part of unspecified bronchus or lung (HCC) Expected: 08/03/2022 (Approximate), Expires: 04/03/2023 [facility] Work Phone: Comment on above: Expected: 08/03/2022 (Approximate), Expires: 04/03/2023 Start: 08-03-2022 End: 04-03-2023 Comprehensive metabolic 2000 panel - Serum or Plasma COMP METABOLIC PANEL Lab Routine Malignant neoplasm of unspecified part of unspecified bronchus or lung (HCC) Expected: 08/03/2022 (Approximate), Expires: 04/03/2023 [facility] Work Phone: Comment on above: Expected: 08/03/2022 (Approximate), Expires: 04/03/2023 Start: 08-03-2022 End: 05-03-2023 CT CHEST W IVCON CT CHEST W IVCON Radiology Routine Malignant neoplasm of unspecified part of unspecified bronchus or lung (HCC) Expected: 08/03/2022 (Approximate), Expires: 05/03/2023 [facility] Work Phone: Comment on above: Expected: 08/03/2022 (Approximate), Expires: 05/03/2023 Start: 05-05-2022 Influenza vaccination C [facility] Start: 04-18-2022 [facility] Work Phone: Start: 04-18-2022 Diagnostic endoscopi c examination on colon DH Colonoscopy Diagnostic (Not Applicable) [facility] Start: 04-18-2022 End: 04-18-2022 Admission to same day surgery center Personal history of colonic polyps [facility] Start: 03-30-2022 End: 03-02-2023 CBC W Auto Differential panel - Blood CBC + DIFF Lab Routine Malignant neoplasm of unspecified part of unspecified bronchus or lung (HCC) Cancer of trachea, bronchus, and lung (HCC) Panlobular emphysema (HCC) Expected: 03/30/2022 (Approximate), Expires: 03/02/2023 [facility] Work Phone: Comment on above: Expected: 03/30/2022 (Approximate), Expires: 03/02/2023 Start: 03-30-2022 End: 03-02-2023 Comprehensive metabolic 2000 panel - Serum or Plasma COMP METABOLIC PANEL Lab Routine Malignant neoplasm of unspecified part of unspecified bronchus or lung (HCC) Cancer of trachea, bronchus, and lung (HCC) Panlobular emphysema (HCC) Expected: 03/30/2022 (Approximate), Expires: 03/02/2023 [facility] Work Phone: Comment on above: Expected: 03/30/2022 (Approximate), Expires: 03/02/2023 Start: 03-30-2022 End: 04-01-2023 Ct thorax w/contrast material CT CHEST W IVCON Radiology Routine Malignant neoplasm of unspecified part of unspecified bronchus or lung (HCC) Cancer of trachea, bronchus, and lung (HCC) Panlobular emphysema (HCC) Expected: 03/30/2022 (Approximate), Expires: 04/01/2023 [facility] Work Phone: Comment on above: Expected: 03/30/2022 (Approximate), Expires: 04/01/2023 Start: 02-05-2022 Adult depression screening assessment DEPRESSION SCREENING [facility] Start: 01-05-2022 End: 03-07-2022 CONFIRM BLOOD TYPE [facility] Work Phone: Comment on above: Expected: 01/05/2022 , Expires: 03/07/2022 Start: 01-05-2022 End: 03-07-2022 TYPE AND SCREEN,30 DAY [facility] Work Phone: Comment on above: Expected: 01/05/2022 , Expires: 03/07/2022 Start: 09-04-2021 ADVANCE DIRECTIVE DISCUSSION ADVANCE DIRECTIVE DISCUSSION [facility] Start: 2016 Abdominal aortic aneurysm screening Abdominal Aortic Aneurysm (AAA) Screen [facility] Start: 2016 Fall Risk Screening Fall Risk Screen ing [facility] Start: 2016 PNEUMOVAX AGE 65 AND OVER WITH 5YR LOOKBACK (#1) PNEUMOVAX AGE 65 AND OVER WITH 5YR LOOKBACK (#1) [facility] Start: 03-04-2016 Medicare Annual Well ness Visit Medicare Annual Wellness Visit [facility] Start: 2011 RSV Vaccine (1 - 1-d ose 60+ series) RSV Vaccine (1 - 1-dose 60+ series) [facility] Start: 2011 RSV Vaccine (1 - Ris k 60-74 years 1-dose series) RSV Vaccine (1 - Risk 60-74 years 1-dose series) [facility] Start: 2001 SHINGRIX VACCINE (1 of 2) SHINGRIX VACCINE (1 of 2) [facility] Start: 1996 COLOGUARD (FIT-DNA) COLOGUARD (FIT-D NA) [facility] Start: 1996 Colonoscopy COLONOSCOPY [facility] Start: 1996 COLORECTAL CANCER SCREENING COLORECTAL CANCER SCREENING [facility] Start: [address] COLONOGRAPHY [facility] Start: 1996 FECAL OCCULT BLOOD FECAL OCCULT BLOO D [facility] Start: 1996 Screening for malign ant neoplasm of colon [facility] Start: 1996 SIGMOIDOSCOPY SIGMOIDOSCOPY [facility] Start: 1986 Lipid 1996 panel - S ned or Plasma Lipid Screening [facility] Start: 1986 Lipid panel Lipid Screening [facility] Start: 1986 LIPID SCREEN LIPID SCREEN [facility] Start: 1981 Zoledronic acid therapy ALPHA- 1 ANTITRYPSIN DEFICIENCY SCREENING [facility] Start: 1970 Administration of varicella zoster vaccine Zoster (Shingles) Vaccine (1 of 2) [facility] Start: 1970 DTaP,Tdap and Td Vaccines (1 - Tdap) DTaP,Tdap and Td Vaccines (1 - Tdap) [facility] Start: 1970 Pneumococcal Vaccine : 50+ (1 of 2 - PCV) Pneumococcal Vaccine: 50+ (1 of 2 - PCV) [facility] Start: 1970 SHINGRIX VACCINE (1 of 2) SHINGRIX VACCINE (1 of 2) [facility] Start: 1970 Urine microalbumin profile [facility] Start: 1969 Adult BMI Follow Up Plan Adult BMI F ollow Up Plan [facility] Start: 1969 ANNUAL PCP TEAM CHIEF OPERATIONS OFFICER AVERY DISEASE VISIT ANNUAL PCP TEAM CHRONIC DISEASE VISIT [facility] Start: 1969 Anxiety Screening Anxiety Screening [facility] Start: 1969 BP CONTROLLED (<130/80) BP CONTROLLE D (<130/80) [facility] Start: 1969 Hepatitis B surface antibody level LDL CHOLESTEROL [facility] Start: 1969 HEPATITIS C SCREENING [facility]ITIS C [facility] Start: 1969 Hepatitis C screening Hepatitis C [facility] Start: 1969 SPIROMETRY SPIROMETRY [facility] Start: 1963 Depression Screening Depression Scre ening [facility] Start: 1957 Pneumococcal Vaccine : 65+ (1 - PCV) Pneumococcal Vaccine: 65+ (1 - PCV) [facility] Start: 1957 Pneumococcal Vaccine : 65+ (1 of 2 - PCV) Pneumococcal Vaccine: 65+ (1 of 2 - PCV) [facility] Start: 1957 Pneumococcal Vaccine : 65+ Years (1 - PCV) Pneumococcal Vaccine: 65+ Years (1 - PCV) [facility] Start: 1957 Pneumococcal Vaccine : 65+ Years (1 of 2 - PCV) Pneumococcal Vaccine: 65+ Years (1 of 2 - PCV) [facility] Start: 1957 PNEUMOCOCCAL: 65+ (1 - PCV) PNEUMOCOCCAL: 65+ (1 - PCV) [facility] Start: 1956 COVID-19 VACCINE (#1) COVID-19 VACCI NE (#1) [facility] Start: 1956 COVID-19 VACCINE (1) COVID-19 VACCIN E (1) [facility] Start: 1951 COVID-19 VACCINE (#1) COVID-19 VACCI NE (#1) [facility] Start: 1951 ABDOMINAL AORTIC ANEURYSM SCREENING ABDOMINAL AORTIC ANEURYSM SCREENING [facility] Start: 1951 Abdominal aortic aneurysm screening Abdominal Aortic Aneurysm Screening [facility] Start: 1951 Medicare Annual Well ness Visit Medicare Annual Wellness Visit [facility] Start: 1950 Screening for malign ant neoplasm of colon [facility] Start: 1950 Tobacco Counseling Tobacco Counselin g [facility] Biopsy liver needle percutaneous IMAGING GUIDED BIOPSY LIVER Radiology Routine Cancer of trachea, bronchus, and lung (HCC) Liver mass, right lobe Ordered: 12/17/2021 [facility] Work Phone: Comment on above: Ordered: 12/17/2021 End: 10-10-2025 Pulmonary function test Spirometry (Flow Volume Loop) pre/post short acting bronchodilator Pulmonary function test Spirometry (Flow Volume Loop) pre/post short acting bronchodilator PFT Routine Chronic obstructive pulmonary disease, unspecified COPD type ([facility]) 1 Occurrences starting 10/10/2024 until 10/10/2025 [employer] Work Phone: Comment on above: 1 Occurrences starti ng 10/10/2024 until 10/10/2025 [facility] Payers Date Payer Category Payer Self-pay [id number] 2021 Medicaid MEDICAID [facility] MEDICAID [id number] 2021-Present [phone] [address] [place] [address] Medicaid [id number] 2017 Medicaid [id number] 2016 Medicare MEDICARE MEDICAR E A AND B [id number] 2016-Present [phone] [address] [address] [place] [address] Medicare [id number] 2016 Medicare [id number] 1959 Medicaid [id number] 1959 Medicare [id number] 1951 Unknown [id number] 1951 Unknown [id number] 1951 Unknown [id number] 1951 Unknown [id number] 1951 Unknown [id number] 1951 Unknown [id number] 1951 Unknown [id number] 1951 Unknown [id number] 1951 Unknown [id number] 1951 Unknown [id number] 1951 Unknown [id number] Unknown [id number] Social History Date Type Detail Facility Start: 01-12-2021 End: 02-26-2024 Tobacco smoking status AZIS Smokes tobacco daily [facility] History of tobacco use Cigarette Smoker C [facility] Start: 01-12-2021 End: 10-02-2023 Cigarettes smoked current (pack per day) - Reported 1 [facility] Start: 01-12-2021 End: 10-07-2022 Tobacco use and exposure Smokeless tobacco non-user [facility] Start: 10-29-2021 End: 02-12-2025 Alcohol intake Ex-drinker (finding) [facility] Start: 1950 Sex Assigned At Not on file C [facility] Start: 09-22-2021 End: 07-21-2022 Exposure to SARS-CoV-2 (event) Not sure [facility] Start: 04-18-2022 End: 05-30-2023 Tobacco smoking status NHIS Smoker (finding) [facility] Start: 1950 Sex Assigned At Male F [facility] History of tobacco use Passive smoker [facility] Start: 01-04-2023 End: 10-02-2023 Tobacco use panel [facility] Adult Depression Screening Assessment 0 [facility] Within the last year , have you [...] to buy more. Never true [facility] Start: 04-07-2015 End: 10-16-2024 Sex Male (finding) [employer] Goals Date Patient Goal Desired Activity /State Functional Status Date Assessment Result Facility 02-12-2025 Patient Health [facility] ionnaire 2 item (PHQ-2) [Reported] [facility] Clinical Notes 10-22-2021 to 03-31-2025 Telephone Encounter - Chloe Ivey RN - 03/27/2025 1:44 PM EDTTelephone Encounter - Chloe Ivey RN - 03/27/2025 1:44 PM Sarika Lentz, - 02/20/2025 2:45 PM EDTPatient Instructions Note Date & Type Note Facility 03-31-2025 Note MS Cardiology - [facility] Brett Burns is a 75 y.o. year old male [...] lobectomy for lung cancer on 09/24/2020 at [facility] with Dr. Lisa. He was admitted to the [facility] in February 2021 with atypical chest pain. He ruled out for myocardial infarction by high-sensitivity troponin. He was admitted on 10/24/2021 to the [facility] with decompensated heart failure and COPD exacerbation. [...] April 2023 he was evaluated in the [facility] emergency room because of worsening [...] kg (178 lb) SpO2 98% BMI 27.06 kg/m??? Smoking Status Every Day BSA 1.97 m??? Physical Exam Con (more content not included)... [facility] 03-27-2025 Telephone encounter Note Please sign pended labs for 3 month f/u if agreeable Thank You! Chloe Ivey RN [facility] 03-27-2025 Miscellaneous Notes Please sign pended labs for 3 month f/u if agreeable Thank You! Chloe Ivey RN documented in this encounter [facility] 02-20-2025 History of Present illness Narrative Images from the original note were not included. [facility] Progress Note Patient - Alessio Burns Age - 74 y.o. - 1950 ASSESSMENT 1. Dyspnea on exertion felt related to bronchospasm, physical deconditioning . 2. Bilateral new innumerable pulmonary nodules on July 2022 CT chest compared to prior in March 2022 -negative ANCA, SVETLANA, MIGUEL -negative culture data on BAL from bronchoscopy 12/06/2022 3. Mild centrilobular emphysema with FEV1 91% -alpha 1 antitrypsin MM 4. History of right lung poorly differentiated adenocarcinoma (pT2a, n0, M0) -Diagnosed in May 2020 s/p RUL lobectomy in Sep 2020 5. Positive TB quantiferon Gold 08/18/22 -status post bronchoscopy with BAL and negative AFB 6. AAA 7. Tobacco use 1ppd PLAN Ongoing surveillance CTs as planned with [facility] Oncology Most recent PFT data obtained earlier this month was reviewed and is stable to slightly improved compared to prior in 2022 Age-appropriate routine vaccination advised Tobacco cessation encouraged however patient does not feel able/ ready to quit Continue Trelegy, p.r.n. albuterol HFA and albuterol aerosols treatments Return to clinic in 6 months or earlier if needed SUBJECTIVE Mr. Hillents for follow-up of his COPD, tobacco use, multiple pulmonary nodules. He follows very closely was [facility] oncology. He has previously had bronchoscopy with lavage, workup with positive TB QuantiFERON gold back in 2021 but BAL culture was negative. He was initially breathless upon presentation to the office however has been markedly improved on inhaler therapy. He takes Trelegy 200, 1 puff daily. He does have a p.r.n. albuterol HFA as well as albuterol aerosols. He typically takes half dose of the albuterol aerosols 3 times daily. He has surveillance repeat CT scans done with Oncology through [facility] and reports that his most recent CT scan did demonstrate some new nodules with other nodules appearing smaller or resolved. Does have a cough daily which is usually productive of clear mucus. This is improved with aerosols and inhaler therapy. His breathing is overall worse when it rains and with the humidity but is improved if he takes a nebulizer treatment. He denies any recent respiratory infections requiring any antibiotics or steroids. No new hemoptysis, unintentional weight loss. Overall he feels that his breathing is stable compared to last visit. VITALS BP 131/67 Pulse 50 Ht 167.6 cm (5' 6 ) Wt 81.2 kg (179 lb) SpO2 97% BMI 28.89 kg/m Exam General: Alert, oriented, no acute distress, nontoxic Chest: Clear to auscultation bilaterally without any crackles, wheezes, rhonchi. Normal AP diameter. CV: Regular rate regular rhythm Extremities: No edema, erythema, distal cyanosis, clubbing Integumentary: Warm and dry. No rash or lesion Neuro: No lateralizing deficits. No tremors Meds Medications Reviewed. Lab Results PFT Results Radiology PROCEDURE REASON: multiple diagnoses * * * * Physician Interpretation * * * * RESULT: EXAMINATION: CHEST CT WITH CONTRAST 01/30/25 CLINICAL HISTORY: History of lung cancer. Technique: [...] Aneurysmal dilation of the ascending thoracic aorta. Dr. Maliha Lentz DO. [facility] Office: [phone] documented in this encounter [facility] [employer] [facility] 02-12-2025 History of Present illness Narrative Zoloft 50- does not feel like it helps him Images from the original note were not included. Alessio Burns is a 74 y.o. 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 Repeat CT this month and then a follow up appt. Likely recurrent of lung [...] few seconds. Congestive heart failure with cardiomyopathy ([facility]) EF improved to 40%. Euvolemic on exam COPD (chronic obstructive pulmonary disease) ([facility]) Mod-severe obstructive lung dx. Underlying emphysema, decreased lung capacity due to lobectomy from lung mass Still smoking. Has had multiple discussions about smoking cessation and still not quite ready to quit. Has tried Symbicort, incruse, advair. Continues to have SOB, frequent use of rescue inhaler. Uses it a few times per day COPD exacerbation ([facility]) Poorly controlled COPD, experiences ZHAO at baseline. Current smoker - has made no attempt to quit. Currently on Trelegy. Uses albuterol 3-4 times/day at baseline. Appears to be in mild COPD exacerbation today with mild wheezing, SOB, coarse breath sounds. Depression ([facility]) Patient is currently on Buspirone. Trazodone was discontinued due to adverse effects. Diabetes ([facility]) ZHAO (dyspnea on exertion) Was seen last [...] History of blood transfusion 1983 HLD (hyperlipidemia) ([facility]) Hospital discharge follow-up Recent admission for COPD/CHF Doing well. Exp wheeze noted on exam; smoked right before appt. HTN (hypertension) ([facility]) Above goal in office but patient reports [...] Lung trouble NSTEMI (non-ST elevated myocardial infarction) ([facility]) NSTEMI; presented to our office for regular follow up and reported intermittent exertional CP, sob, was sent to ED for further evaluation where he was found to have sig elevation in HStrop. Patient was transferred to [facility] for further care and possible [facility] Currently asymptomatic. Denies CP, SOB and has [...] Adult long) Pulse (!) 47 Temp 98.3 F (Temporal) Resp 18 Wt 179 lb 12.8 oz SpO2 97% BMI 29.02 kg/m Smoking Status Every Day BSA 1.95 m Physical Exam Vitals and nursing note reviewed. [...] of the risks of continued smoking: stroke, [place], all forms of cancer, lung disease, and . Options for quitting smoking include: cold turkey, hypnosis, acupuncture, nicotine replacement meds (gum, lozenges, and patches), Buproprion, and Varenicline. At this time pt is encouraged to evaluate their goals for wanting to quit smoking, and reach out to provider when ready to start this process Adenocarcinoma of right lung (CMS/HCC) Continue [facility] oncology Medicare annual wellness visit, subsequent - Primary Reviewed Ht/Wt/BMI Recommend eye exam yearly Recommend dental exams twice a year Balance work/leisure activities Exercises is recommended most days of the week (appropriate as chronic conditions allow) Follow up yearly and prn Associated Problem(s): Adenocarcinoma of right lung (CMS/HCC) Continue fu w oncology Associated Problem(s): HTN (hypertension) (CMS/HCC) Please check blood pressure daily and record DASH diet Limit caffeine Take medication as directed Contact office if chest pain, pressure, dizziness, shortness of breath, swelling legs Recommend slow position changes Current meds:diuretic, amlodipine Associated Problem(s): Depression (CMS/HCC) Current meds: buspar, sertaline Increase dose to 100mg Fu in 8 weeks Associated Problem(s): Tobacco dependence The patient has been advised of the risks of continued smoking: stroke, [place], all forms of cancer, lung disease, and . Options for quitting smoking include: cold turkey, hypnosis, acupuncture, nicotine replacement meds (gum, lozenges, and patches), Buproprion, and Varenicline. At this time pt is encouraged to evaluate their goals for wanting to quit smoking, and reach out to provider when ready to start this process Associated Problem(s): Medicare annual wellness visit, subsequent Reviewed Ht/Wt/BMI Recommend eye exam yearly Recommend dental exams twice a year Balance work/leisure activities Exercises is recommended most days of the week (appropriate as chronic conditions allow) Follow up yearly and prn documented in this encounter [facility] 02-12-2025 Instructions Anayeli Heaton NP - 02/12/2025 1:20 PM [...] if these occur. documented in this encounter [facility] 02-06-2025 Instructions Jaya Bai MD - 02/06/2025 1:17 PM EDT RTC in [address] Chest 1 week prior to visit We discussed your recent CT scan results: - Your CT scan showed stable findings overall. Some abnormalities have shrunk, and there are no new concerning spots. - The spot on the dome of your liver appears benign (non-cancerous), and there are no new liver lesions or issues in your abdomen. - In your lungs, you still have some nodules. While a few are new, they are too small to determine if they are cancerous. They may also be infectious or inflammatory. We will continue monitoring these. - Based on these results, you do not need another CT scan of your abdomen and pelvis in 12 weeks. Instead, we will schedule a CT scan of your chest around mid. We discussed your smoking history: - You are currently smoking about half a pack per day, which is a reduction from your previous smoking levels. Please continue to work on cutting back further, as this will benefit your overall health. We discussed your abdominal pain and B12 deficiency: - Your abdominal pain and cramping are being managed by your manager contract, who has prescribed Levsin. Please continue taking this medication as directed. If you experience worsening symptoms, follow up with your manager contract. - Your blood work showed low vitamin B12 levels, though you are not currently anemic. I have prescribed a sublingual (qyivk-utm-jznxsa) B12 supplement, which has been sent to [facility] in [place]. If your insurance does not cover this, ask the pharmacist for a reasonable substitute. - Take the B12 supplement as directed. It may improve your energy levels and overall health. We will reassess your B12 levels in six months to determine if you need to continue supplementation. We discussed follow-up care: - You will see your manager contract in April for continued management of your abdominal pain. - You have an echocardiogram scheduled this month with your senior computer specialist. Please keep this appointment. - Around mid-April, you will have a CT scan of your chest, followed by labs. I will see you at the end of April to review these results. Please let me know if you have any new or worsening symptoms before your next visit. documented in this encounter [facility] 02-06-2025 History of Present illness Narrative Images from the original note were not included. NAME: Alessio Burns [facility] NO.: [id number] DATE OF SERVICE: February 06, 2025 (Zac) Some elements in this clinic note that are critical to medical decision making have been carefully reviewed and included from a prior clinic note dated: November 07, 2024 (Zac) Referring Provider: Dr. Shaikh Etienne Additional Clinicians involved in Alessio Burns's care: Maliha Lentz DO DIAGNOSIS: lung cancer ASSESSMENT: 74 year old gentleman diagnosed with early stage [...] 6-month gap between resection and presentation to [facility]. He remains at high risk because of [...] SUV of 1.8. Since SUV measurements were still fairly low, I obtained a repeat PET/CT 2 months later in April 2023 that showed improvement of all pulmonary nodules. However, there was some uptake in the distal stomach/proximal duodenum which needed further evaluation which turned up benign. His most current CT scans shows new 1 cm nodules but he was sick, so repeat CT in 6 weeks. PLAN: RTC in [address] Chest 1 week prior to visit Continue follow up with GI - next in April 04. Malignant neoplasm of upper lobe of right lung (HCC) (C34.11) Malignant neoplasm of unspecified part of unspecified bronchus or lung (HCC) (C34.90) Lung nodules (R91.8) CT scans show stable lung nodules with some reduction in size and no new significant findings. Improved aeration noted. Some nodules may be infectious or inflammatory rather than malignant. No new liver lesions; existing lesion at the dome of the liver appears benign. - Schedule follow-up CT scan of the chest in 12 weeks. - Continue monitoring for any changes in nodules. 2. 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 - Continue monitoring with regular imaging. 3. Tobacco use disorder (F17.200) Nicotine dependence, cigarettes, uncomplicated (F17.210) Patient continues to smoke approximately half a pack per day, reduced from previous consumption of 2-3 packs per day. - Advised patient to further reduce tobacco use. 4. 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 - Prescribed sublingual Vitamin B12 supplement. - Re-evaluate B12 levels in 6 months. 5. Encounter for follow-up examination after completed treatment for conditions other than malignant neoplasm (Z09) Follow-up examination to review CT scan results and lab work. - Schedule next follow-up appointment at the end of April. 6. Generalized abdominal pain (R10.84) Ongoing abdominal pain with cramping, not specifically related to meals. Currently managed with Levsin 290 mg. - Continue Levsin as prescribed. - Follow-up with manager contract in April. HPI: CASE HISTORY: Reverse Chronological Order 01/30/2025 - CT CAP: Chest: Improved aeration of the right middle lobe. No new lobar consolidation. Numerous bilateral pulmonary nodules. Some previously visualized nodules have either resolved or decreased in size, whereas others are new. Findings may be infectious/inflammatory or neoplastic in nature. Recommend continued follow-up. Aneurysmal dilation of the ascending thoracic aorta. A/P: Overall stable appearance of subcapsular hypodensity at the hepatic dome. No new hepatic lesions are noted. No findings to suggest new abdominal or pelvic metastatic disease. 11/07/2024 - CT CAP: Chest: Several bilateral subcentimeter pulmonary nodules, progressed in size and number when compared to the prior study of 09/12/2024, as above. No substantial intrathoracic adenopathy is appreciated. Aneurysmal dilation of the ascending thoracic aorta, stable. A/P: Stable 1.6 cm subcapsular hepatic hypodensity, as above. Stable subcentimeter retroperitoneal lymph nodes. No substantial intra-abdominal or pelvic lymphadenopathy is identified. 10/14/2024 - CTA Chest: No pulmonary embolism Stable 4.9cm aneurysm of the ascending aorta. No dissection. Right upper lobe collapse. No obvious obstructing mass. No airspace disease. Stable several bilateral subcentimeter pulmonary nodules. 09/12/2024 - CT Chest: Multiple subcentimeter nodular opacities, most are stable but some are slightly smaller since 07/19/24. No evidence of new intrathoracic abnormalities. 07/19/2024 - CT CAP: Chest: Numerous bilateral pulmonary nodules are again identified, several of which appear increased in size, several of which have decreased in size, compatible with mixed response. No substantial intrathoracic adenopathy is appreciated. A/P: 1.6 cm subcapsular hepatic hypodensity appears less conspicuous from prior study of 02/23/2024. Otherwise, stable CT examination of the abdomen and pelvis. No substantial intra-abdominal or pelvic lymphadenopathy is identified. 04/18/2024 - CT Chest: Multiple scattered nodular opacities. Index nodules are as follows: * 0.9 cm right lower lobe nodule previously 1 cm * 0.7 cm right lower lobe nodule (image 81) previously 1.1 cm * 0.8 cm left lower lobe nodule (122), unchanged * 0.6 cm left upper lobe nodule (image 74) previously 1 mm 02/23/2024 - CT CAP: Chest: Multiple new nodular opacities measuring up to 1 cm. Differential diagnosis includes a combination of infectious/inflammatory etiologies or neoplasm. Consider interval follow-up and/or the workup. New right perihilar consolidative opacities may represent with new opacification of the right middle lobe bronchus most likely related to complete right middle lobe atelectasis. Differential diagnosis includes mucus plugging and endobronchial lesion. A/P: Nonspecific 2.1 cm hypodensity in the dome of the liver, stable since 01/04/23. No evidence of new intra-abdominal/pelvic abnormalities. Fat-containing right inguinal hernia. 01/11/2024 - US Vein Mapping LLE: No evidence of deep or superficial venous thrombosis 11/10/2023 - CT Chest: There has been significant improvement in size and number of the previously identified multiple bilateral pulmonary nodules, as detailed above. Several subcentimeter mediastinal lymph nodes are again identified, unchanged. No substantial intrathoracic adenopathy is identified. Aneurysmal dilation of the ascending thoracic aorta measuring approximately 4.7-4.8 cm, stable. 08/04/2023 - PET/CT: No evidence of focal uptake to suggest FDG avid neoplastic process in the head/neck, abdomen/pelvis, or extremities/skeleton. Chest: Slight improvement in left upper lobe lung nodule. Other nodules below PET resolution stable. 05/30/2023 - EGD ([facility] [...] from incisors. Mucosa appeared normal. 04/30/2023 - PET/CT: Head and Neck: No evidence of FDG [...] most compatible with metastatic disease. 09/30/2022 - PET/CT: Multiple foci of uptake most active in [...] mass and no other disease. Updated Visit, February 06, 2025: Jose Angel is alone without sister Maria Teresa, severino Candelaria Patient with a history of cancer presents for follow-up. He reports smoking half a pack of cigarettes per day, reduced from a previous history of 2.5 to 3 packs per day. Recent CT scans show stable findings with improved aeration and some nodules in the lungs either decreasing in size or resolving completely. A few new nodules are present, but they are too small to characterize and may be infectious, inflammatory, or neoplastic. There are no new liver lesions, and a single lesion at the dome of the liver appears benign. Abdominal imaging shows no new concerning findings. He is currently under the care of a manager contract for duodenal issues, which have been confirmed as benign. He reports ongoing abdominal cramping that occurs independently of meals and is partially managed with Levsin 290 mg. He is scheduled to see his manager contract in April. Recent lab work shows low vitamin B12 levels, though he is not currently anemic. He is also under the care of a senior computer specialist and has an upcoming echocardiogram scheduled for this month. Updated Visit, November 07, 2024: Alessio returns for a follow up. Final reading of today's CT CAP is in process - images appear stable from my perspective. Hgb has decreased to 12.0, will continue to monitor. He is still smoking. Updated Visit, September 12, 2024: Doing fine but has some Dyspnea when he bends over. BP meds are being adjusted by Jasen Vasques. CT scans pending. Anticipate repeating scans in 8 weeks if today's are ok or obtain PET/CT. Labs with no abnormalities. Updated Visit, July 24, 2024: Returns alone. Reviewed scans. Mixed changes. Will need to repeat CT in 6 weeks for comparison. If nodules increase to enlarge > 8 mm, will obtain PET/CT. He continues to smoke but is otherwise at his baseline state of health. Sister is having cardiac workup and could be here with him. Still taking Linzess for constipation. Updated Visit, April 18, 2024: Returns alone today and CT is pending read. Doing well otherwise but continues to gain weight. Updated Visit, March 01, 2024: Alessio returns with his sister, Maria Teresa. Recent CT CAP shows new nodules in his chest. Liver hypodensity has been stable for over 1 year. Monitor with additional CT chest in 6 weeks. He endorses chronic coughing, although not worse than his baseline. He is following with GI for constipation of unclear etiology. He had a fall recently, workup was negative for injury. He has lost 9lbs since his last visit. Updated Visit, November 17, 2023: Alessio returns today with Bari. CT shows significant improvement. Not anemic, counts are normal. He has been smoking more now, about 2 packs/day. He continues dealing with constipation - met [...] [facility] Results scanned to [facility] 06/04/2021 Updated Visit, February 05, 2021: Doing [...] colonoscopy. PATHOLOGY/MOLECULAR DATA 01/10/2022 Partial liver resection: [id number] Order: [id number] Collected 01/10/2022 11:56 AM Status: Final result [...] remainder of specimen. Gross examination performed at [facility], [address] [place] [id number] CLIA# [id number] [facility] January 12, 2022 9:23 AM REVIEW OF SYSTEMS Per HPI and otherwise negative by full review of organ systems. ECOG PERFORMANCE STATUS: 1 PHYSICAL EXAMINATION: Vitals: BP 128/72 Pulse 62 Temp (Src) 97.8 (Temporal) Resp 16 Ht 5' 5.984 (1.68m) Wt 179 lb 10.8 oz (81.5kg) SpO2 94% BMI 29.01 kg/(m^2). Body surface area is 1.95 meters squared. Exam limited to gross visualization [...] petechiae. ALLERGIES: ALLERGIES No Known Allergies MEDICATIONS: sertraline (ZOLOFT) 50 mg tablet Take 50 mg by mouth once daily. amitriptyline (ELAVIL) 50 mg tablet Take 50 mg by mouth daily at bedtime. linaCLOtide (LINZESS) 290 mcg capsule clopidogrel (PLAVIX) 75 mg tablet Take 1 tablet by mouth once daily for 15 days. spironolactone (ALDACTONE) 25 mg tablet TRELEGY ELLIPTA 200-62.5-25 mcg inhalation powder INHALE [...] activity busPIRone (BUSPAR) 15 mg tablet Take 30 mg by mouth two times a day. albuterol HFA (PROVENTIL HFA, VENTOLIN HFA) 90 [...] TAKE 1 TABLET BY MOUTH TWICE DAILY Cyanocobalamin-Cobamamide (B-12 PLUS) 5,000-100 mcg subl Dissolve 1 tablet under the tongue once daily. iv contrast (will be provided with [...] Contrast as designated per enteric contrast guidelines enteric contrast (will be provided with radiology test) For CT CHESTABD/PEL W IVCON Routine order Administer, As Directed One Time Only, via Oral, Rectal, both Oral and Rectal, Enteric Tube, Stoma or Indwelling Catheter, Enteric Contrast as designated per enteric contrast guidelines enteric contrast (will be provided with radiology test) For CT CHESTABD/PEL W IVCON Routine order Administer, As Directed One Time Only, via Oral, Rectal, both Oral and Rectal, Enteric Tube, Stoma or Indwelling Catheter, Enteric Contrast as designated per enteric contrast guidelines LABORATORY VALUES: WBC (k/uL) Date Value 01/30/2025 8.67 RBC (m/uL) Date Value 01/30/2025 4.27 Hemoglobin (g/dL) Date Value 01/30/2025 13.2 Hematocrit (%) Date Value 01/30/2025 39.7 MCV (fL) Date Value 01/30/2025 93.0 MCH (pg) Date Value 01/30/2025 30.9 MCHC (g/dL) Date Value 01/30/2025 33.2 RDW-CV (%) Date Value 01/30/2025 13.5 Platelet Count (k/uL) Date Value 01/30/2025 225 MPV (fL) Date Value 01/30/2025 9.1 Glucose (mg/dL) Date Value 01/30/2025 85 BUN (mg/dL) Date Value 01/30/2025 16 Creatinine (mg/dL) Date Value 01/30/2025 0.86 Sodium (mmol/L) Date Value 01/30/2025 138 Potassium (mmol/L) Date Value 01/30/2025 3.8 Chloride (mmol/L) Date Value 01/30/2025 105 CO2 (mmol/L) Date Value 01/30/2025 25 Protein, Total (g/dL) Date Value 01/30/2025 7.1 Albumin (g/dL) Date Value 01/30/2025 4.3 Calcium, Total (mg/dL) Date Value 01/30/2025 9.4 Alkaline Phosphatase (U/L) Date Value 01/30/2025 95 Bilirubin, Total (mg/dL) Date Value 01/30/2025 0.3 AST (U/L) Date Value 01/30/2025 14 ALT (U/L) Date Value 01/30/2025 8 (L) DIAGNOSIS: (C34.11) Malignant neoplasm of upper lobe of right lung (HCC) (primary encounter diagnosis) Plan: Cyanocobalamin-Cobamamide (B-12 PLUS) 5,000-100 mcg subl (L92.9) Non-caseating granuloma Plan: Cyanocobalamin-Cobamamide (B-12 PLUS) 5,000-100 mcg subl (R91.8) Lung nodules Plan: Cyanocobalamin-Cobamamide (B-12 PLUS) 5,000-100 mcg subl (F17.200) Tobacco use disorder Plan: Cyanocobalamin-Cobamamide (B-12 PLUS) 5,000-100 mcg subl (D53.1) Megaloblastic anemia due to vitamin B12 deficiency Plan: Cyanocobalamin-Cobamamide (B-12 PLUS) 5,000-100 mcg subl PAST MEDICAL HISTORY Diagnosis Date CAD (coronary [...] Smoking status: Every Day Current packs/day: 1.00 Average packs/day: 1 pack/day for 48.0 years (48.0 ttl pk-yrs) Types: Cigarettes Passive exposure: Current Smokeless tobacco: Never Vaping Use Vaping status: Never Used Substance Use Topics Alcohol use: Not Currently Drug use: Never FAMILY HISTORY Problem Relation Age of Onset Diabetes Mother Hypertension Mother Heart disease Mother Hypertension Father Cancer Father Heart disease Father Hypertension Sister Heart disease Sister Diabetes Sister Cancer Sister I spent a total of 30 minutes on the date of the service which included preparing to see the patient, [id number] patient care, completing clinical documentation, performing a medically appropriate examination, counseling and educating the patient/family/caregiver, ordering medications, tests, or procedures, communicating with other HCPs (not separately reported), independently interpreting results (not separately reported), and communicating results to the patient/family/caregiver. Jaya Bai MD, CPE Hematology and Oncology Services Provided at: [place], [place] CC: Maliha Carlin documented in this encounter [facility] 02-06-2025 Note HNO ID: [id number] Author: JAYA BAI MD Service: ? Author Type: Physician Type: Progress Notes Filed: 02/06/2025 13:21 Note Text: NAME: Alessio Burns [facility] NO.: [id number] DATE OF SERVICE: February 06, 2025 (Zac) Some elements in this clinic note that are critical to medical decision making have been carefully reviewed and included from a prior clinic note dated: November 07, 2024 (Zac) Referring Provider: Dr. Shaikh Etienne Additional Clinicians involved in Alessio Burns's care: Maliha Lentz DO DIAGNOSIS: lung cancer ASSESSMENT: 74 year old gentleman diagnosed with early stage [...] 6-month gap between [facility] and [facility]. He remains at high risk because of [...] SUV of 1.8. Since SUV measurements were still fairly low, I obtained a repeat PET/CT 2 months later in April 2023 that showed improvement of all pulmonary nodules. However, there was some uptake in the distal stomach/proximal duodenum which needed further evaluation which turned up benign. His most current CT scans shows new 1 cm nodules but he was sick, so repeat CT in 6 weeks. PLAN: RTC in [address] Chest 1 week prior to visit Continue follow up with GI - next in April 1. Malignant neoplasm of upper lobe of right lung (HCC) (C34.11) Malignant neoplasm of unspecified part of unspecified bronchus or lung (HCC) (C34.90) Lung nodules (R91.8) CT scans show stable lung nodules with some reduction in size and no new significant findings. Improved aeration noted. Some nodules may be infectious or inflammatory rather than malignant. No new liver lesions; existing lesion at the dome of the liver appears benign. - Schedule follow-up CT scan of the chest in 12 weeks. - Continue monitoring for any changes in nodules. 2. 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 - Continue monitoring with regular imaging. 3. Tobacco use disorder (F17.200) Nicotine dependence, cigarettes, uncomplicated (F17.210) Patient continues to smoke approximately half a pack per day, reduced from previous consumption of 2-3 packs per day. - Advised patient to further reduce tobacco use. 4. 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 - Prescribed sublingual Vitamin B12 supplement. - Re-evaluate B12 levels in 6 months. 5. Encounter for follow-up examination after completed treatment for conditions other than malignant neoplasm (Z09) Follow-up examination to review CT scan results and lab work. - Schedule next follow-up appointment at the end of April. 6. Generalized abdominal pain (R10.84) Ongoing abdominal pain with cramping, not specifically related to meals. Currently managed with Levsin 290 mg. - Continue Levsin as prescribed. - Follow-up with manager contract in April. HPI: CASE HISTORY: Reverse Chronological Order 01/30/2025 - CT CAP: Chest: Improved aeration of the right middle lobe. No new lobar consolidation. Numerous bilateral pulmonary nodules. Some previously visualized nodules have either resolved or (more content not included)... [facility] 01-30-2025 History of Present illness Narrative Radiology Service Progress Note DATE OF SERVICE: January 30, 2025 TIME: 2:06 PM PATIENT WEIGHT: 182LBS PATIENT IDENTITY VERIFICATION COMPLETED USING TWO (2) STANDARD IDENTIFIERS: Name and Date of confirmed by patient verbally. FALL SCREENING: Has the patient had 2 falls in the last year or 1 fall with injury or currently using an Ambulatory Assistive Device (Walker, Cane, Wheelchair, Crutches, etc.)? No PATIENT GENDER DATA: Assigned male at ALLERGIES: Reviewed and unchanged CONTRAST ALLERGY: No EXAM: CT -CONTRAST INDUCED NEPHROPATHY RISK FACTORS: Patient age > 60 years CREATININE: Creatinine Date Value Ref Range Status 01/30/2025 0.86 0.73 - 1.22 mg/dL Final 11/07/2024 0.96 0.73 - 1.22 mg/dL Final 09/12/2024 0.94 0.73 - 1.22 mg/dL Final Estimated Glomerular Filtration Rate Date Value Ref Range Status 01/30/2025 91 >=60 mL/min/1.73m Final Comment: Estimated Glomerular Filtration Rate (eGFR) [...] POC done: Yes, See Lab Tab January 30, 2025 TREATMENT: N/A IV SITE: Ambulatory: A peripheral IV was started in the Right antecubital site with a Angio cath: 20 gauge. IV SITE APPEARANCE: Clean,Dry and Intact SIGNATURE: Chloe Ivey RN PATIENT NAME: Alessio Burns DATE: January 30, 2025 TIME: 2:06 PM Radiology Service Progress Note PATIENT NAME: Alessio Burns DATE OF SERVICE: January 30, 2025 TIME: 2:14 PM PATIENT IDENTITY VERIFICATION COMPLETED USING TWO (2) IDENTIFIERS: Name and Date of confirmed by patient verbally. FALL SCREENING: Has the patient had 2 falls in the last year or 1 fall with injury or currently using an Ambulatory Assistive Device (Walker, Cane, Wheelchair, Crutches, etc.)? No PATIENT GENDER DATA: Assigned male at PATIENT RELEVANT IMPLANT DATA REVIEWED: Not Applicable PATIENT PRESENTS WITH AN IMPLANTABLE OR ATTACHED CHIEF CREDIT OFFICER: No RADIOLOGY DEPARTMENT: CT; Exam(s) Completed: Chest Abdomen Pelvis PERIPHERAL IV DATA: Site assessment: Clean,Dry and Intact, Site disposition Discontinued 20g right ac SIGNED BY: RT Rand(Arslan) January 30, 2025 2:14 PM documented in this encounter [facility] 01-30-2025 Note HNO ID: [id number] Author: CHLOE IVEY RN Service: ? Author Type: Registered Nurse Type: Progress Notes Filed: 01/30/2025 14:06 Note Text: Radiology Service Progress Note DATE OF SERVICE: January 30, 2025 TIME: 2:06 PM PATIENT WEIGHT: 182LBS PATIENT IDENTITY VERIFICATION COMPLETED USING TWO (2) STANDARD IDENTIFIERS: Name and Date of confirmed by patient verbally. FALL SCREENING: Has the patient had 2 falls in the last year or 1 fall with injury or currently using an Ambulatory Assistive Device (Walker, Cane, Wheelchair, Crutches, etc.)? No PATIENT GENDER DATA: Assigned male at ALLERGIES: Reviewed and unchanged CONTRAST ALLERGY: No EXAM: CT -CONTRAST INDUCED NEPHROPATHY RISK FACTORS: Patient age > 60 years CREATININE: Creatinine Date Value Ref Range Status 01/30/2025 0.86 0.73 - 1.22 mg/dL Final 11/07/2024 0.96 0.73 - 1.22 mg/dL Final 09/12/2024 0.94 0.73 - 1.22 mg/dL Final Estimated Glomerular Filtration Rate Date Value Ref Range Status 01/30/2025 91 >=60 mL/min/1.73m? Final Comment: Estimated Glomerular Filtration [...] POC done: Yes, See Lab Tab January 30, 2025 TREATMENT: N/A IV SITE: Ambulatory: A peripheral IV was started in the Right antecubital site with a Angio cath: 20 gauge. IV SITE APPEARANCE: Clean,Dry and Intact SIGNATURE: Chloe Ivey RN PATIENT NAME: Alessio Burns DATE: January 30, 2025 TIME: 2:06 PM [facility] 01-30-2025 Note HNO ID: [id number] Author: JALEESA VALDEZ, RT(R) Service: Radiology Author Type: Technologist Type: Progress Notes Filed: 01/30/2025 14:24 Note Text: Radiology Service Progress Note PATIENT NAME: Alessio Burns DATE OF SERVICE: January 30, 2025 TIME: 2:14 PM PATIENT IDENTITY VERIFICATION COMPLETED USING TWO (2) IDENTIFIERS: Name and Date of confirmed by patient verbally. FALL SCREENING: Has the patient had 2 falls in the last year or 1 fall with injury or currently using an Ambulatory Assistive Device (Walker, Cane, Wheelchair, Crutches, etc.)? No PATIENT GENDER DATA: Assigned male at PATIENT RELEVANT IMPLANT DATA REVIEWED: Not Applicable PATIENT PRESENTS WITH AN IMPLANTABLE OR ATTACHED CHIEF CREDIT OFFICER: No RADIOLOGY DEPARTMENT: CT; Exam(s) Completed: Chest Abdomen Pelvis PERIPHERAL IV DATA: Site assessment: Clean,Dry and Intact, Site disposition Discontinued 20g right ac SIGNED BY: Jaleesa Valdez RT(R) January 30, 2025 2:14 PM [facility] 01-03-2025 Telephone encounter Note Contact pt, cardiology did contact me, yes ok to start something for depression/anxiety. We are going to start sertraline (zoloft) Start with 50mg pill: take 1/2 pill for 7 days, then increase to 1 pill daily. Take medication only as directed. This medication will take approximately 4-6 weeks to become effective. If any suicidal thoughts, thoughts of hurting others, or hallucinations contact the office or proceed to the Emergency Room for mental health evaluation. Medication may cause dry mouth, dizziness, and in some cases worsening in depression symptoms. Please contact the office if these occur. LETI [facility] 01-03-2025 Miscellaneous Notes Contact pt, cardiology did contact me, yes ok to start something for depression/anxiety. We are going to start sertraline (zoloft) Start with 50mg pill: take 1/2 pill for 7 days, then increase to 1 pill daily. Take medication only as directed. This medication will take approximately 4-6 weeks to become effective. If any suicidal thoughts, thoughts of hurting others, or hallucinations contact the office or proceed to the Emergency Room for mental health evaluation. Medication may cause dry mouth, dizziness, and in some cases worsening in depression symptoms. Please contact the office if these occur. LETI documented in this encounter [facility] 12-26-2024 History of Present illness Narrative Associated Problem(s): Depression (CMS/HCC) PHQ 9=7 WILLIAMS 7=9 Call to cardiology [...] Please contact the office if these occur. Associated Problem(s): Tobacco dependence The patient has been advised of the risks of continued smoking: stroke, [place], all forms of cancer, lung disease, and . Options for quitting smoking include: cold turkey, hypnosis, acupuncture, nicotine replacement meds (gum, lozenges, and patches), Buproprion, and Varenicline. At this time pt is encouraged to evaluate their goals for wanting to quit smoking, and reach out to provider when ready to start this process Associated Problem(s): HTN (hypertension) (CMS/HCC) Please check blood pressure daily and record DASH diet Limit caffeine Take medication as directed Contact office if chest pain, pressure, dizziness, shortness of breath, swelling legs Recommend slow position changes Current meds:diuretic, amlodipine Associated Problem(s): Chronic systolic (congestive) heart failure Follows with [facility] cardiology Entresto, diuretics, amlodpine Associated Problem(s): Adenocarcinoma of right lung (CMS/HCC) Continue fu w oncology Last office 09/11/24 HLD: No swelling HTN: Checks BP daily 134/73 Emphysema: pt feels controlled Does breathing treatments 3-4x daily Uses trelegy inhaler daily Uses rescue inhaler 1-2x daily if he is not home Depression: pt states he has expressed that the buspirone has not helped to both fawwad and jasen however they had increased the dose. He states that the depression has stayed the same. Pt states he has no suicidal thoughts Pt needs a refill on the viagra Pt has ct scan on the with [facility] to scan for cancer (every 6m) Images from the original note were not included. Alessio Burns is a 74 y.o. male presents with chief complaint of Hypertension HPI: Last office 09/11/24 HLD: No swelling HTN: Checks BP daily 134/73 Emphysema: pt feels controlled Does breathing treatments 3-4x daily Uses trelegy inhaler daily Uses rescue inhaler 1-2x daily if he is not home Depression: pt states he has expressed that the buspirone has not helped to both fawwad and jasen however they had increased the dose. He states that the depression has stayed the same. Pt states he has no suicidal thoughts Pt needs a refill on the viagra Pt has ct scan on the with [facility] to scan for cancer (every 6m) Depression Visit Type: follow-up Patient presents with the following symptoms: depressed mood, excessive worry, irritability and nervousness/anxiety. Patient is not experiencing: anhedonia, decreased concentration, obsessions, panic, suicidal ideas, suicidal planning and thoughts of . Frequency of symptoms: most days Severity: causing significant distress Anxiety Presents for follow-up visit. Symptoms include depressed mood, excessive worry, irritability and nervous/anxious behavior. Patient reports no chest pain, decreased concentration, dizziness, obsessions, panic or suicidal ideas. Symptoms occur most days. The severity of symptoms is moderate. Compliance with medications is 76-100%. SUBJECTIVE: MEDICATIONS: Current Outpatient Medications Medication Instructions albuterol HFA 90 mcg/act inhaler inhale 2 (TWO) puffs BY MOUTH every 4-6 hour as needed for SHORTNESS OF BREATH / FOR WHEEZING albuterol 2.5 mg, Nebulization, Every 4 hours PRN amLODIPine (NORVASC) 10 mg, Oral, Daily aspirin 81 mg, Every 24 hours atorvastatin (Lipitor) 40 MG tablet Oral, Nightly busPIRone (BUSPAR) 30 mg, Oral, 2 times daily clopidogrel (PLAVIX) 75 mg, Oral, Every morning Entresto 97-103 MG tablet 1 tablet, 2 times daily Zclhetnyddt-Rvopbyock-Iqjglu (Trelegy Ellipta) 200-62.5-25 MCG/ACT aerosol powder 1 puff, Inhalation, Daily furosemide (LASIX) 40 mg, Oral, Daily Linzess 290 mcg, Daily metoprolol succinate XL (Toprol-XL) 100 MG 24 hr tablet 1 tablet, Daily nitroglycerin (NITROSTAT) 0.4 mg, Every 5 min PRN potassium chloride CR (Klor-Con M10) 10 MEQ ER tablet 10 mEq, Oral, Daily sildenafil (Viagra) 50 MG tablet TAKE 1 TABLET BY MOUTH 1 HOUR BEFORE SEXUAL ACTIVITY NEEDED. spironolactone (ALDACTONE) 12.5 mg, Oral, Every morning ALLERGIES: No Known Allergies REVIEW OF SYMPTOMS: Review of Systems Constitutional: Positive for irritability. Negative for activity change, appetite change and unexpected weight change. HENT: Negative for ear pain, nosebleeds, sneezing, trouble swallowing and voice change. Eyes: Negative for pain, discharge and visual disturbance. Respiratory: Positive for cough. Negative for apnea, chest tightness and wheezing. Cardiovascular: Negative for chest pain and leg swelling. Gastrointestinal: Negative for abdominal distention, blood in stool, constipation and diarrhea. Genitourinary: Negative for decreased urine volume, difficulty urinating, dysuria and hematuria. Skin: Negative for color change. Neurological: Negative for dizziness, tremors and seizures. Psychiatric/Behavioral: Positive for depression. Negative for agitation, decreased concentration, hallucinations, self-injury and suicidal ideas. The patient is nervous/anxious. Hematological: Negative for adenopathy. Does not bruise/bleed [...] to biopsy. Repeat CT this month and then a follow up appt. Likely recurrent of lung [...] few seconds. Congestive heart failure with cardiomyopathy ([facility] EF improved to 40%. Euvolemic on exam COPD (chronic obstructive pulmonary disease) ([facility]) Mod-severe obstructive lung dx. Underlying emphysema, decreased lung capacity due to lobectomy from lung mass Still smoking. Has had multiple discussions about smoking cessation and still not quite ready to quit. Has tried Symbicort, incruse, advair. Continues to have SOB, frequent use of rescue inhaler. Uses it a few times per day COPD exacerbation ([facility]) Poorly controlled COPD, experiences ZHAO at baseline. Current smoker - has made no attempt to quit. Currently on Trelegy. Uses albuterol 3-4 times/day at baseline. Appears to be in mild COPD exacerbation today with mild wheezing, SOB, coarse breath sounds. Depression ([facility]) Patient is currently on Buspirone. Trazodone was discontinued due to adverse effects. Diabetes ([facility]) ZHAO (dyspnea on exertion) Was seen last [...] History of blood transfusion 1983 HLD (hyperlipidemia) ([facility]) Hospital discharge follow-up Recent admission for COPD/CHF Doing well. Exp wheeze noted on exam; smoked right before appt. HTN (hypertension) ([facility]) Above goal in office but patient reports [...] Lung trouble NSTEMI (non-ST elevated myocardial infarction) (CMS/HCC) NSTEMI; presented to our office for regular follow up and reported intermittent exertional CP, sob, was sent to ED for further evaluation where he was found to have sig elevation in HStrop. Patient was transferred to [facility] for further care and possible [facility] Currently asymptomatic. Denies CP, SOB and has [...] mother, and sister. OBJECTIVE: Visit Vitals BP 110/60 (BP Location: Left arm, Patient Position: Sitting, BP Cuff Size: Adult long) Pulse 57 Temp 98.5 F (Temporal) Resp 20 Wt 184 lb 6.4 oz SpO2 96% BMI 29.76 kg/m Smoking Status Every Day BSA 1.97 m Physical Exam Vitals and nursing note reviewed. Constitutional: Appearance: Normal appearance. He is not ill-appearing. HENT: Head: Normocephalic. Right Ear: External ear normal. Left Ear: External ear normal. Nose: Nose normal. Mouth/Throat: Mouth: Mucous membranes are moist. Pharynx: Oropharynx is clear. Eyes: Extraocular Movements: Extraocular movements intact. Conjunctiva/sclera: Conjunctivae normal. Cardiovascular: Rate and Rhythm: Normal rate and regular rhythm. Pulses: Normal pulses. Heart sounds: Murmur heard. Pulmonary: Effort: Pulmonary effort is normal. Breath sounds: Normal breath sounds. Abdominal: General: Bowel sounds are normal. Palpations: Abdomen is soft. Musculoskeletal: Cervical back: Neck supple. Skin: General: Skin is warm and dry. Capillary Refill: Capillary refill takes 2 to 3 seconds. Neurological: General: No focal deficit present. Mental Status: He is alert. Psychiatric: Mood and Affect: Mood normal. Behavior: Behavior normal. Thought Content: Thought content normal. Judgment: Judgment normal. ASSESSMENT AND PLAN: No follow-ups on file. Problem List Items Addressed This Visit Depression (CMS/HCC) PHQ 9=7 WILLIAMS 7=9 Call to cardiology [...] Please contact the office if these occur. HTN (hypertension) ([facility]) Please check blood pressure daily and record DASH diet Limit caffeine Take medication as directed Contact office if chest pain, pressure, dizziness, shortness of breath, swelling legs Recommend slow position changes Current meds:diuretic, amlodipine Tobacco dependence The patient has been advised of the risks of continued smoking: stroke, [place], all forms of cancer, lung disease, and . Options for quitting smoking include: cold turkey, hypnosis, acupuncture, nicotine replacement meds (gum, lozenges, and patches), Buproprion, and Varenicline. At this time pt is encouraged to evaluate their goals for wanting to quit smoking, and reach out to provider when ready to start this process Adenocarcinoma of right lung (CMS/HCC) - Primary Continue fu w oncology Chronic systolic (congestive) heart failure Follows with [facility] cardiology Entresto, diuretics, amlodpine Other Visit Diagnoses Male erectile dysfunction, unspecified Relevant Medications sildenafil (Viagra) 50 MG tablet documented in this encounter [facility] 12-26-2024 Instructions Anayeli Heaton NP - 12/26/2024 2:20 PM EDT Zoloft (sertraline) if cardiology approves of this, I will send it in You will start with 1/2 pill daily for 10 days, then increase to 1 pill Take medication only as directed. This medication will take approximately 4-6 weeks to become effective. If any suicidal thoughts, thoughts of hurting others, or hallucinations contact the office or proceed to the Emergency Room for mental health evaluation. Medication may cause dry mouth, dizziness, and in some cases worsening in depression symptoms. Please contact the office if these occur. Also when you start that, cut the buspirone back to 1/2 pill daily documented in this encounter [facility] 11-18-2024 Telephone encounter Note Pt informed of Darleen's message, once verified, using 2 patient identifiers. Patient denies any questions, needs or concerns at this time. Appointment verified. Wilmer Rosas RN [facility] 11-18-2024 Miscellaneous Notes Pt informed of Darleen's message, once verified, using 2 patient identifiers. Patient denies any questions, needs or concerns at this time. Appointment verified. Wilmer Rosas RN Small nodules - more than prior in September. Still too small for PET/CT - keep 12 week appointments. Darleen: please review and advise Wilmer Rosas RN Images from the original note were not included. documented in this encounter [facility] 11-18-2024 Telephone encounter Note Small nodules - more than prior in September. Still too small for PET/CT - keep 12 week appointments. [facility] 11-18-2024 Telephone encounter Note Darleen: please review and advise Wilmer Rosas RN [facility] 11-07-2024 Telephone encounter Note Images from the original note were not included. [facility] 11-07-2024 Instructions Rima Malcolm - 11/07/2024 2:46 PM EST RTC in [address] CAP same day prior to visit Triage please call results from today's CT May need to modify plan for future imaging and follow up May need to obtain PET/CT Obtain report of CT from [facility] from 10/2024 Continue follow up with GI documented in this encounter [facility] 11-07-2024 History of Present illness Narrative Images from the original note were not included. NAME: Alessio Burns CLINIC NO.: [id number] DATE OF SERVICE: November 07, 2024 (Zac) Some elements in this clinic note that are critical to medical decision making have been carefully reviewed and included from a prior clinic note dated: September 12, 2024 (Zac) Referring Provider: Dr. Shaikh Etienne Additional Clinicians involved in Alessio Burns's care: Maliha Lentz DO DIAGNOSIS: lung cancer ASSESSMENT: 74 year old gentleman diagnosed with early stage [...] uptake in the distal stomach/proximal duodenum which needed further evaluation which turned up benign. His most current CT scans shows new 1 cm nodules but he was sick, so repeat CT in 6 weeks. PLAN: RTC in [address] CAP same day prior to visit Triage please call results from today's CT May need to modify plan for future imaging and follow up May need to obtain PET/CT Obtain report of CT from [facility] from 10/2024 Continue follow up with GI HPI: CASE HISTORY: Reverse Chronological Order 11/07/2024 - CT CAP: Final reading in process Chest: A/P: 09/12/2024 - CT Chest: Multiple subcentimeter nodular opacities, most are stable but some are slightly smaller since 07/19/24. No evidence of new intrathoracic abnormalities. 07/19/2024 - CT CAP: Chest: Numerous bilateral pulmonary nodules are again identified, several of which appear increased in size, several of which have decreased in size, compatible with mixed response. No substantial intrathoracic adenopathy is appreciated. A/P: 1.6 cm subcapsular hepatic hypodensity appears less conspicuous from prior study of 02/23/2024. Otherwise, stable CT examination of the abdomen and pelvis. No substantial intra-abdominal or pelvic lymphadenopathy is identified. 04/18/2024 - CT Chest: Multiple scattered nodular opacities. Index nodules are as follows: * 0.9 cm right lower lobe nodule previously 1 cm * 0.7 cm right lower lobe nodule (image 81) previously 1.1 cm * 0.8 cm left lower lobe nodule (122), unchanged * 0.6 cm left upper lobe nodule (image 74) previously 1 mm 02/23/2024 - CT CAP: Chest: Multiple new nodular opacities measuring up to 1 cm. Differential diagnosis includes a combination of infectious/inflammatory etiologies or neoplasm. Consider interval follow-up and/or the workup. New right perihilar consolidative opacities may represent with new opacification of the right middle lobe bronchus most likely related to complete right middle lobe atelectasis. Differential diagnosis includes mucus plugging and endobronchial lesion. A/P: Nonspecific 2.1 cm hypodensity in the dome of the liver, stable since 01/04/23. No evidence of new intra-abdominal/pelvic abnormalities. Fat-containing right inguinal hernia. 01/11/2024 - US Vein Mapping LLE: No evidence of deep or superficial venous thrombosis 11/10/2023 - CT Chest: There has been significant improvement in size and number of the previously identified multiple bilateral pulmonary nodules, as detailed above. Several subcentimeter mediastinal lymph nodes are again identified, unchanged. No substantial intrathoracic adenopathy is identified. Aneurysmal dilation of the ascending thoracic aorta measuring approximately 4.7-4.8 cm, stable. 08/04/2023 - PET/CT: No evidence of focal uptake to suggest FDG avid neoplastic process in the head/neck, abdomen/pelvis, or extremities/skeleton. Chest: Slight improvement in left upper lobe lung nodule. Other nodules below PET resolution stable. 05/30/2023 - EGD ([facility] [...] from incisors. Mucosa appeared normal. 04/30/2023 - PET/CT: Head and Neck: No evidence of FDG [...] most compatible with metastatic disease. 09/30/2022 - PET/CT: Multiple foci of uptake most active in [...] and no other disease. Updated Visit, November 07, 2024: Alessio returns for a follow up. Final reading of today's CT CAP is in process - images appear stable from my perspective. Hgb has decreased to 12.0, will continue to monitor. He is still smoking. Updated Visit, September 12, 2024: Doing fine but has some Dyspnea when he bends over. BP meds are being adjusted by Jasen Vasques. CT scans pending. Anticipate repeating scans in 8 weeks if today's are ok or obtain PET/CT. Labs with no abnormalities. Updated Visit, July 24, 2024: Returns alone. Reviewed scans. Mixed changes. Will need to repeat CT in 6 weeks for comparison. If nodules increase to enlarge > 8 mm, will obtain PET/CT. He continues to smoke but is otherwise at his baseline state of health. Sister is having cardiac workup and could be here with him. Still taking Linzess for constipation. Updated Visit, April 18, 2024: Returns alone today and CT is pending read. Doing well otherwise but continues to gain weight. Updated Visit, March 01, 2024: Alessio returns with his sister, Maria Teresa. Recent CT CAP shows new nodules in his chest. Liver hypodensity has been stable for over 1 year. Monitor with additional CT chest in 6 weeks. He endorses chronic coughing, although not worse than his baseline. He is following with GI for constipation of unclear etiology. He had a fall recently, workup was negative for injury. He has lost 9lbs since his last visit. Updated Visit, November 17, 2023: Alessio returns today with Bari. CT shows significant improvement. Not anemic, counts are normal. He has been smoking more now, about 2 packs/day. He continues dealing with constipation - met [facility] Results scanned to [facility] 06/04/2021 Updated Visit, February 05, 2021: Doing [...] colonoscopy. PATHOLOGY/MOLECULAR DATA 01/10/2022 Partial liver resection: [id number] Order: [id number] Collected 01/10/2022 11:56 AM Status: Final result [...] remainder of specimen. Gross examination performed at [facility], [address] [address] CLIA# [id number] [facility] January 12, 2022 9:23 AM REVIEW OF SYSTEMS Per HPI and otherwise negative by full review of organ systems. ECOG PERFORMANCE STATUS: 1 PHYSICAL EXAMINATION: Vitals: BP 126/70 Pulse 59 Temp (Src) 97 (Temporal) Resp 18 Wt 175 lb 0.7 oz (79.4kg) SpO2 97% Body surface area is 1.92 meters squared. Exam limited to gross visualization [...] petechiae. ALLERGIES: ALLERGIES No Known Allergies MEDICATIONS: iv contrast (will be provided with radiology [...] Contrast as designated per enteric contrast guidelines enteric contrast (will be provided with radiology test) For CT CHESTABD/PEL W IVCON Routine order Administer, As Directed One Time Only, via Oral, Rectal, both Oral and Rectal, Enteric Tube, Stoma or Indwelling Catheter, Enteric Contrast as designated per enteric contrast guidelines amitriptyline (ELAVIL) 50 mg tablet Take 50 mg by mouth daily at bedtime. linaCLOtide (LINZESS) 290 mcg capsule enteric contrast (will be provided with radiology test) For CT CHESTABD/PEL W IVCON Routine order Administer, As Directed One Time Only, via Oral, Rectal, both Oral and Rectal, Enteric Tube, Stoma or Indwelling Catheter, Enteric Contrast as designated per enteric contrast guidelines clopidogrel (PLAVIX) 75 mg tablet Take 1 tablet by mouth once daily for 15 days. spironolactone (ALDACTONE) 25 mg tablet TRELEGY ELLIPTA 200-62.5-25 mcg inhalation powder INHALE [...] activity busPIRone (BUSPAR) 15 mg tablet Take 30 mg by mouth two times a day. albuterol HFA (PROVENTIL HFA, VENTOLIN HFA) 90 [...] TAKE 1 TABLET BY MOUTH TWICE DAILY iv contrast (will be provided with [...] Contrast as designated per enteric contrast guidelines LABORATORY VALUES: WBC (k/uL) Date Value 11/07/2024 7.87 RBC (m/uL) Date Value 11/07/2024 3.97 (L) Hemoglobin (g/dL) Date Value 11/07/2024 12.0 (L) Hematocrit (%) Date Value 11/07/2024 36.7 (L) MCV (fL) Date Value 11/07/2024 92.4 MCH (pg) Date Value 11/07/2024 30.2 MCHC (g/dL) Date Value 11/07/2024 32.7 RDW-CV (%) Date Value 11/07/2024 13.7 Platelet Count (k/uL) Date Value 11/07/2024 254 MPV (fL) Date Value 11/07/2024 9.1 Glucose (mg/dL) Date Value 11/07/2024 103 (H) BUN (mg/dL) Date Value 11/07/2024 19 Creatinine (mg/dL) Date Value 11/07/2024 0.96 Sodium (mmol/L) Date Value 11/07/2024 141 Potassium (mmol/L) Date Value 11/07/2024 4.2 Chloride (mmol/L) Date Value 11/07/2024 108 (H) CO2 (mmol/L) Date Value 11/07/2024 24 Protein, Total (g/dL) Date Value 11/07/2024 7.0 Albumin (g/dL) Date Value 11/07/2024 3.7 (L) Calcium, Total (mg/dL) Date Value 11/07/2024 8.5 Alkaline Phosphatase (U/L) Date Value 11/07/2024 98 Bilirubin, Total (mg/dL) Date Value 11/07/2024 0.3 AST (U/L) Date Value 11/07/2024 12 (L) ALT (U/L) Date Value 11/07/2024 8 (L) DIAGNOSIS: (C34.11) Malignant neoplasm of upper lobe of right lung (HCC) (primary encounter diagnosis) Plan: CT ABD/PEL W IVCON, CT CHEST W IVCON, iv contrast (will be provided with radiology test), enteric contrast (will be provided with radiology test), COMPLETE BLOOD COUNT AND DIFFERENTIAL, COMPREHENSIVE METABOLIC PANEL, IRON AND TIBC, FERRITIN, VITAMIN B12, FOLATE, SERUM, ERYTHROPOIETIN/EPO (L92.9) Non-caseating granuloma Plan: CT ABD/PEL W IVCON, CT CHEST W IVCON, iv contrast (will be provided with radiology test), enteric contrast (will be provided with radiology test), COMPLETE BLOOD COUNT AND DIFFERENTIAL, COMPREHENSIVE METABOLIC PANEL, IRON AND TIBC, FERRITIN, VITAMIN B12, FOLATE, SERUM, ERYTHROPOIETIN/EPO (R93.3) Abnormal finding on GI tract imaging Plan: CT ABD/PEL W IVCON, CT CHEST W IVCON, iv contrast (will be provided with radiology test), enteric contrast (will be provided with radiology test), COMPLETE BLOOD COUNT AND DIFFERENTIAL, COMPREHENSIVE METABOLIC PANEL, IRON AND TIBC, FERRITIN, VITAMIN B12, FOLATE, SERUM, ERYTHROPOIETIN/EPO (D64.9) Anemia, unspecified type Plan: CT ABD/PEL W IVCON, CT CHEST W IVCON, iv contrast (will be provided with radiology test), enteric contrast (will be provided with radiology test), COMPLETE BLOOD COUNT AND DIFFERENTIAL, COMPREHENSIVE METABOLIC PANEL, IRON AND TIBC, FERRITIN, VITAMIN B12, FOLATE, SERUM, ERYTHROPOIETIN/EPO PAST MEDICAL HISTORY Diagnosis Date CAD (coronary [...] Smoking status: Every Day Current packs/day: 1.00 Average packs/day: 1 pack/day for 48.0 years (48.0 ttl pk-yrs) Types: Cigarettes Passive exposure: Current Smokeless tobacco: Never Vaping Use Vaping status: Never Used Substance Use Topics Alcohol use: Not Currently Drug use: Never FAMILY HISTORY Problem Relation Age of Onset Diabetes Mother Hypertension Mother Heart disease Mother Hypertension Father Cancer Father Heart disease Father Hypertension Sister Heart disease Sister Diabetes Sister Cancer Sister I spent a total of 30 minutes on the date of the service which included preparing to see the patient, [id number] patient care, completing clinical documentation, performing a medically appropriate examination, counseling and educating the patient/family/caregiver, ordering medications, tests, or procedures, communicating with other HCPs (not separately reported), independently interpreting results (not separately reported), and communicating results to the patient/family/caregiver. Jaya Bai MD, CPE Hematology and Oncology Services Provided at: [place], [place] Scribe Attestation: This note was scribed by Rima Malcolm on November 07, 2024 under the direction and supervision of Dr. Jaya Bai. I attest that all of the information documented is correct to the best of my knowledge. Provider Attestation: I, Jaya Bai MD, attest that all information documented by the above scribe is correct, and was supervised by me and under my direction. CC: Shaikh Lowell [address] [place] [address] Maliha Lentz DO David Bernice documented in this encounter [facility] 11-07-2024 Note HNO ID: [id number] Author: JAYA BAI MD Service: ? Author Type: Physician Type: Progress Notes Filed: 11/08/2024 18:21 Note Text: NAME: Alessio Burns [facility] NO.: [id number] DATE OF SERVICE: November 07, 2024 (Zac) Some elements in this clinic note that are critical to medical decision making have been carefully reviewed and included from a prior clinic note dated: September 12, 2024 (Zac) Referring Provider: Dr. Shaikh Etienne Additional Clinicians involved in Alessio Burns's care: Maliha Lentz DO DIAGNOSIS: lung cancer ASSESSMENT: 74 year old gentleman diagnosed with early stage [...] 6-month [facility]. He remains at high risk because of [...] uptake in the distal stomach/proximal duodenum which needed further evaluation which turned up benign. His most current CT scans shows new 1 cm nodules but he was sick, so repeat CT in 6 weeks. PLAN: RTC in [address] CAP same day prior to visit Triage please call results from today's CT May need to modify plan for future imaging and follow up May need to obtain PET/CT Obtain report of CT from [facility] from 10/2024 Continue follow up with GI HPI: CASE HISTORY: Reverse Chronological Order 11/07/2024 - CT CAP: Final reading in process Chest: A/P: 09/12/2024 - CT Chest: Multiple subcentimeter nodular opacities, most are stable but some are slightly smaller since 07/19/24. No evidence of new intrathoracic abnormalities. 07/19/2024 - CT CAP: Chest: Numerous bilateral pulmonary nodules are again identified, several of which appear increased in size, several of which have decreased in size, compatible with mixed response. No substantial intrathoracic adenopathy is appreciated. A/P: 1.6 cm subcapsular hepatic hypodensity appears less conspicuous from prior study of 02/23/2024. Otherwise, stable CT examination of the abdomen and pelvis. No substantial intra-abdominal or pelvic lymphadenopathy is identified. 04/18/2024 - CT Chest: Multiple scattered nodular opacities. Index nodules are as follows: * 0.9 cm right lower lobe nodule previously 1 cm * 0.7 cm right lower lobe nodule (image 81) previously 1.1 cm * 0.8 cm left lower lobe nodule (122), unchanged * 0.6 cm left upper lobe nodule (image 74) previously 1 mm 02/23/2024 - CT CAP: Chest: Multiple new nodular opacities measuring up to 1 cm. Differential diagnosis includes a combination of infectious/inflammatory etiologies or neoplasm. Consider interval follow-up and/or the workup. New right perihilar consolidative opacities may represent with new opacification of the right middle lobe bronchus most likely related to complete right middle lobe atelectasis. Differential diagnosis includes mucus plugging and endobronchial lesion. A/P: Nonspecific 2.1 cm hypodensity in the dome of the liver, stable since 01/04/23. No evidence of new intra-abdominal/pelvic abnormalities. Fat-containing right inguinal hernia. 01/11/2024 - US Vein Mapping LLE: No (more content not included)... [facility] 11-07-2024 History of Present illness Narrative Radiology Service Progress Note DATE OF SERVICE: November 07, 2024 TIME: 12:40 PM PATIENT WEIGHT: 174LBS PATIENT IDENTITY VERIFICATION COMPLETED USING TWO (2) STANDARD IDENTIFIERS: Name and Date of confirmed by patient verbally. FALL SCREENING: Has the patient had 2 falls in the last year or 1 fall with injury or currently using an Ambulatory Assistive Device (Walker, Cane, Wheelchair, Crutches, etc.)? No PATIENT GENDER DATA: Assigned male at ALLERGIES: Reviewed and unchanged CONTRAST ALLERGY: No EXAM: CT -CONTRAST INDUCED NEPHROPATHY RISK FACTORS: Patient age > 60 years CREATININE: Creatinine Date Value Ref Range Status 09/12/2024 0.94 0.73 - 1.22 mg/dL Final 07/19/2024 0.99 0.73 - 1.22 mg/dL Final 04/18/2024 1.12 0.73 - 1.22 mg/dL Final Estimated Glomerular Filtration Rate Date Value Ref Range Status 09/12/2024 86 >=60 mL/min/1.73m Final Comment: Estimated Glomerular Filtration Rate (eGFR) [...] POC done: Yes, See Lab Tab November 07, 2024 TREATMENT: N/A IV SITE: Ambulatory: A peripheral IV was started in the Right antecubital site with a Angio cath: 20 gauge. IV SITE APPEARANCE: Clean,Dry and Intact SIGNATURE: Chloe Ivey RN PATIENT NAME: Alessio Burns DATE: November 07, 2024 TIME: 12:40 PM Radiology Service Progress Note PATIENT NAME: Alessio Burns DATE OF SERVICE: November 07, 2024 TIME: 12:48 PM PATIENT IDENTITY VERIFICATION COMPLETED USING TWO (2) IDENTIFIERS: Name and Date of confirmed by patient verbally. FALL SCREENING: Has the patient had 2 falls in the last year or 1 fall with injury or currently using an Ambulatory Assistive Device (Walker, Cane, Wheelchair, Crutches, etc.)? No PATIENT GENDER DATA: Assigned male at PATIENT RELEVANT IMPLANT DATA REVIEWED: Not Applicable PATIENT PRESENTS WITH AN IMPLANTABLE OR ATTACHED CHIEF CREDIT OFFICER: No RADIOLOGY DEPARTMENT: CT; Exam(s) Completed: Chest Abdomen Pelvis PERIPHERAL IV DATA: Site assessment: Clean,Dry and Intact, Site disposition Discontinued SIGNED BY: RT Darius(R) November 07, 2024 12:48 PM documented in this encounter [facility] 11-07-2024 Note HNO ID: [id number] Author: CHARLA GODFREY RT(R) Service: ? Author Type: Technologist Type: Progress Notes Filed: 11/07/2024 12:53 Note Text: Radiology Service Progress Note PATIENT NAME: Alessio Burns DATE OF SERVICE: November 07, 2024 TIME: 12:48 PM PATIENT IDENTITY VERIFICATION COMPLETED USING TWO (2) IDENTIFIERS: Name and Date of confirmed by patient verbally. FALL SCREENING: Has the patient had 2 falls in the last year or 1 fall with injury or currently using an Ambulatory Assistive Device (Walker, Cane, Wheelchair, Crutches, etc.)? No PATIENT GENDER DATA: Assigned male at PATIENT RELEVANT IMPLANT DATA REVIEWED: Not Applicable PATIENT PRESENTS WITH AN IMPLANTABLE OR ATTACHED CHIEF CREDIT OFFICER: No RADIOLOGY DEPARTMENT: CT; Exam(s) Completed: Chest Abdomen Pelvis PERIPHERAL IV DATA: Site assessment: Clean,Dry and Intact, Site disposition Discontinued SIGNED BY: Charla Godfrey, (R) November 07, 2024 12:48 PM [facility] 11-07-2024 Note HNO ID: [id number] Author: CHLOE IVEY RN Service: ? Author Type: Registered Nurse Type: Progress Notes Filed: 11/07/2024 12:40 Note Text: Radiology Service Progress Note DATE OF SERVICE: November 07, 2024 TIME: 12:40 PM PATIENT WEIGHT: 174LBS PATIENT IDENTITY VERIFICATION COMPLETED USING TWO (2) STANDARD IDENTIFIERS: Name and Date of confirmed by patient verbally. FALL SCREENING: Has the patient had 2 falls in the last year or 1 fall with injury or currently using an Ambulatory Assistive Device (Walker, Cane, Wheelchair, Crutches, etc.)? No PATIENT GENDER DATA: Assigned male at ALLERGIES: Reviewed and unchanged CONTRAST ALLERGY: No EXAM: CT -CONTRAST INDUCED NEPHROPATHY RISK FACTORS: Patient age > 60 years CREATININE: Creatinine Date Value Ref Range Status 09/12/2024 0.94 0.73 - 1.22 mg/dL Final 07/19/2024 0.99 0.73 - 1.22 mg/dL Final 04/18/2024 1.12 0.73 - 1.22 mg/dL Final Estimated Glomerular Filtration Rate Date Value Ref Range Status 09/12/2024 86 >=60 mL/min/1.73m? Final Comment: Estimated Glomerular Filtration [...] POC done: Yes, See Lab Tab November 07, 2024 TREATMENT: N/A IV SITE: Ambulatory: A peripheral IV was started in the Right antecubital site with a Angio cath: 20 gauge. IV SITE APPEARANCE: Clean,Dry and Intact SIGNATURE: Clhoe Ivey RN PATIENT NAME: Alessio Burns DATE: November 07, 2024 TIME: 12:40 PM [facility] 10-15-2024 Telephone encounter Note ISAEL:09/11/2024 NOV:12/12/2024 [facility] 10-15-2024 Miscellaneous Notes ISAEL:09/11/2024 NOV:12/12/2024 documented in this encounter [facility] 10-10-2024 History of Present illness Narrative Images from the original note were not included. [facility] Progress Note Patient - Alessio Burns Age - 74 y.o. - 1950 ASSESSMENT 1. Dyspnea on exertion felt related to bronchospasm, physical deconditioning . 2. Bilateral new innumerable pulmonary nodules on July 2022 CT chest compared to prior in March 2022 -negative ANCA, SVETLANA, MIGUEL -negative culture data on BAL from bronchoscopy 12/06/2022 3. Mild centrilobular emphysema with FEV1 91% -alpha 1 antitrypsin MM 4. History of right lung poorly differentiated adenocarcinoma (pT2a, n0, M0) -Diagnosed in May 2020 s/p RUL lobectomy in Sep 2020 5. Positive TB quantiferon Gold 08/18/22 -status post bronchoscopy with BAL and negative AFB 6. AAA 7. Tobacco use 1ppd PLAN Continue Trelegy, p.r.n. albuterol HFA and albuterol aerosols Tobacco cessation discussed and advised. He does not presently have plans to quit Await upcoming repeat CT scan of the chest with [facility] Age-appropriate routine vaccination advised Daily walking program Repeat PFT data sometime this year. Order placed Reviewed records from [facility] Return to office in 5 months or earlier if needed SUBJECTIVE Mr. Burns presents for follow-up of his COPD, tobacco use, multiple pulmonary nodules. He follows very closely was [facility] oncology. His most recent CT scan had demonstrated some new pulmonary nodules and he has a 8 week follow-up CT scan of the chest which is pending. He has previously had bronchoscopy with lavage, workup with positive TB QuantiFERON gold back in 2021 but BAL culture was negative. He was initially breathless upon presentation to the office however has been markedly improved on inhaler therapy. He takes Trelegy 200, 1 puff daily. He does have a p.r.n. albuterol HFA as well as albuterol aerosols. He typically takes half dose of the albuterol aerosols 3 times daily. He does this out of routine and does feel as though that it helps him. He denies any flare-up over the last year with bronchitis, increased respiratory symptoms requiring antibiotics or steroids. He has rare cough. He brings up clear phlegm at times with the cough but this is not on a daily basis. He is sleeping well at night. He does not report any need for refills on albuterol HFA or aerosols. No new concerns or complaints today VITALS BP 126/60 Pulse 56 Ht 167.6 cm (5' 6 ) Wt 78.9 kg (174 lb) SpO2 98% BMI 28.08 kg/m Exam General: Alert, oriented, no acute distress, nontoxic Chest: Clear to auscultation bilaterally without any crackles, wheezes, rhonchi. Normal AP diameter. CV: Regular rate regular rhythm Extremities: No edema, erythema, distal cyanosis, clubbing Integumentary: Warm and dry. No rash or lesion Neuro: No lateralizing deficits. No tremors Meds Medications Reviewed. Lab Results PFT Results Radiology CT chest with contrast Order: [id number] Impression IMPRESSION: 1. Multiple subcentimeter nodular opacities, most [...] any questions regarding this interpretation, please call [phone]. If you are unable to reach us at the number above, please feel free to contact [facility] at [phone]. Narrative * * *Final Report* * * DATE OF EXAM: Sep 12 2024 1:05PM [facility] 0539 - CT CHEST W [...] abdomen: No evidence of an adrenal mass. Dr. Maliha Lentz DO. [facility] Office: [phone] documented in this encounter [facility] 10-01-2024 Telephone encounter Note ISAEL:09/11/2024 NOV:12/12/2024 [facility] 10-01-2024 Miscellaneous Notes ISAEL:09/11/2024 NOV:12/12/2024 documented in this encounter [facility] 09-18-2024 Telephone encounter Note Pt informed of Techtium's message, once verified, using 2 patient identifiers. Patient denies any questions, needs or concerns at this time. Appointment verified. Wilmer Rosas RN [facility] 09-18-2024 Telephone encounter Note ----- Message from Jaya Bai MD sent at 09/17/2024 5:27 PM EST ----- Alessio's scans continue to look good. [facility] 09-18-2024 Miscellaneous Notes Pt informed of Darleen's message, once verified, using 2 patient identifiers. Patient denies any questions, needs or concerns at this time. Appointment verified. Wilmer Rosas RN ----- Message from Jaya Bai MD sent at 09/17/2024 5:27 PM EST ----- Alessio's scans continue to look good. documented in this encounter [facility] 09-13-2024 Telephone encounter Note Clarified to continue with CT/appt, as previously scheduled, 11/07/24. Pt updated and agreeable to plan of care. Pt denies any questions, needs or concerns at this time. Wilmer Rosas RN [facility] 09-13-2024 Miscellaneous Notes Clarified to continue with CT/appt, as previously scheduled, 11/07/24. Pt updated and agreeable to plan of care. Pt denies any questions, needs or concerns at this time. Wilmer Rosas RN Images from the original note were not included. Jaya Bai MD P [facility] Triage Pool 1. Multiple subcentimeter nodular opacities, most are stable but some are slightly smaller since 07/19/24. 2. No evidence of new intrathoracic abnormalities. Scan looks great!! Darleen: Please review and advise on any need to modify plan Wilmer Rosas RN Images from the original note were not included. documented in this encounter [facility] 09-13-2024 Telephone encounter Note Images from the original note were not included. Jaya Bai MD P [facility] Triage Pool 1. Multiple subcentimeter nodular opacities, most are stable but some are slightly smaller since 07/19/24. 2. No evidence of new intrathoracic abnormalities. Scan looks great!! [facility] 09-13-2024 Telephone encounter Note Darleen: Please review and advise on any need to modify plan Wilmer Rosas RN [facility] 09-12-2024 Telephone encounter Note Images from the original note were not included. [facility] 09-12-2024 Instructions Jaya Bai MD - 09/12/2024 1:43 PM EST RTC [address] and labs same day preceding clinician appointment Triage please call results from today's CT May need to modify plan for future imaging and follow up. May need to obtain PET/CT Continue follow up with GI documented in this encounter [facility] 09-12-2024 History of Present illness Narrative Images from the original note were not included. NAME: Alessio Burns CLINIC NO.: [id number] DATE OF SERVICE: September 12, 2024 (Zac) Some elements in this clinic note that are critical to medical decision making have been carefully reviewed and included from a prior clinic note dated: July 24, 2024 (Zac) Referring Provider: Dr. Shaikh Etienne Additional Clinicians involved in Alessio Burns's care: Maliha Lentz DO DIAGNOSIS: lung cancer ASSESSMENT: 74 year old gentleman diagnosed with early stage [...] uptake in the distal stomach/proximal duodenum which needed further evaluation which turned up benign. His most current CT scans shows new 1 cm nodules but he was sick, so repeat CT in 6 weeks. PLAN: RTC [address] and labs same day preceding clinician appointment Triage please call results from today's CT May need to modify plan for future imaging and follow up. May need to obtain PET/CT Continue follow up with GI HPI: CASE HISTORY: Reverse Chronological Order 09/12/2024 - CT Chest: 1. Multiple subcentimeter nodular opacities, most are stable but some are slightly smaller since 07/19/24. 2. No evidence of new intrathoracic abnormalities. 07/19/2024 - CT CAP: Chest: Numerous bilateral pulmonary nodules are again identified, several of which appear increased in size, several of which have decreased in size, compatible with mixed response. No substantial intrathoracic adenopathy is appreciated. A/P: 1.6 cm subcapsular hepatic hypodensity appears less conspicuous from prior study of 02/23/2024. Otherwise, stable CT examination of the abdomen and pelvis. No substantial intra-abdominal or pelvic lymphadenopathy is identified. 04/18/2024 - CT Chest: Multiple scattered nodular opacities. Index nodules are as follows: * 0.9 cm right lower lobe nodule previously 1 cm * 0.7 cm right lower lobe nodule (image 81) previously 1.1 cm * 0.8 cm left lower lobe nodule (122), unchanged * 0.6 cm left upper lobe nodule (image 74) previously 1 mm 02/23/2024 - CT CAP: Chest: Multiple new nodular opacities measuring up to 1 cm. Differential diagnosis includes a combination of infectious/inflammatory etiologies or neoplasm. Consider interval follow-up and/or the workup. New right perihilar consolidative opacities may represent with new opacification of the right middle lobe bronchus most likely related to complete right middle lobe atelectasis. Differential diagnosis includes mucus plugging and endobronchial lesion. A/P: Nonspecific 2.1 cm hypodensity in the dome of the liver, stable since 01/04/23. No evidence of new intra-abdominal/pelvic abnormalities. Fat-containing right inguinal hernia. 01/11/2024 - US Vein Mapping LLE: No evidence of deep or superficial venous thrombosis 11/10/2023 - CT Chest: There has been significant improvement in size and number of the previously identified multiple bilateral pulmonary nodules, as detailed above. Several subcentimeter mediastinal lymph nodes are again identified, unchanged. No substantial intrathoracic adenopathy is identified. Aneurysmal dilation of the ascending thoracic aorta measuring approximately 4.7-4.8 cm, stable. 08/04/2023 - PET/CT: No evidence of focal uptake to suggest FDG avid neoplastic process in the head/neck, abdomen/pelvis, or extremities/skeleton. Chest: Slight improvement in left upper lobe lung nodule. Other nodules below PET resolution stable. 05/30/2023 - EGD ([facility] [...] from incisors. Mucosa appeared normal. 04/30/2023 - PET/CT: Head and Neck: No evidence of FDG [...] most compatible with metastatic disease. 09/30/2022 - PET/CT: Multiple foci of uptake most active in [...] mass and no other disease. Updated Visit, September 12, 2024: Doing fine but has some Dyspnea when he bends over. BP meds are being adjusted by Jasen Vasques. CT scans pending. Anticipate repeating scans in 8 weeks if today's are ok or obtain PET/CT. Labs with no abnormalities. Updated Visit, July 24, 2024: Returns alone. Reviewed scans. Mixed changes. Will need to repeat CT in 6 weeks for comparison. If nodules increase to enlarge > 8 mm, will obtain PET/CT. He continues to smoke but is otherwise at his baseline state of health. Sister is having cardiac workup and could be here with him. Still taking Linzess for constipation. Updated Visit, April 18, 2024: Returns alone today and CT is pending read. Doing well otherwise but continues to gain weight. Updated Visit, March 01, 2024: Alessio returns with his sister, Maria Teresa. Recent CT CAP shows new nodules in his chest. Liver hypodensity has been stable for over 1 year. Monitor with additional CT chest in 6 weeks. He endorses chronic coughing, although not worse than his baseline. He is following with GI for constipation of unclear etiology. He had a fall recently, workup was negative for injury. He has lost 9lbs since his last visit. Updated Visit, November 17, 2023: Alessio returns today with Bari. CT shows significant improvement. Not anemic, counts are normal. He has been smoking more now, about 2 packs/day. He continues dealing with constipation - met [...] [facility] Results scanned to [facility] 06/04/2021 Updated Visit, February 05, 2021: Doing [...] colonoscopy. PATHOLOGY/MOLECULAR DATA 01/10/2022 Partial liver resection: [id number] Order: [id number] Collected 01/10/2022 11:56 AM Status: Final result [...] remainder of specimen. Gross examination performed at [facility], [facility] [address] CLIA# [id number] [facility] January 12, 2022 9:23 AM REVIEW OF SYSTEMS Per HPI and otherwise negative by full review of organ systems. ECOG PERFORMANCE STATUS: 1 PHYSICAL EXAMINATION: Vitals: BP 122/68 Pulse 56 Temp (Src) 97.7 (Temporal) Resp 18 Wt 176 lb 12.9 oz (80.2kg) SpO2 98% Body surface area is 1.93 meters squared. Exam limited to gross visualization [...] BLE ALLERGIES: ALLERGIES No Known Allergies MEDICATIONS: enteric contrast (will be provided with radiology test) For CT CHESTABD/PEL W IVCON Routine order Administer, As Directed One Time Only, via Oral, Rectal, both Oral and Rectal, Enteric Tube, Stoma or Indwelling Catheter, Enteric Contrast as designated per enteric contrast guidelines amitriptyline (ELAVIL) 50 mg tablet Take 50 mg by mouth daily at bedtime. linaCLOtide (LINZESS) 290 mcg capsule enteric contrast (will be provided with radiology test) For CT CHESTABD/PEL W IVCON Routine order Administer, As Directed One Time Only, via Oral, Rectal, both Oral and Rectal, Enteric Tube, Stoma or Indwelling Catheter, Enteric Contrast as designated per enteric contrast guidelines clopidogrel (PLAVIX) 75 mg tablet Take 1 tablet by mouth once daily for 15 days. spironolactone (ALDACTONE) 25 mg tablet TRELEGY ELLIPTA 200-62.5-25 mcg inhalation powder INHALE [...] activity busPIRone (BUSPAR) 15 mg tablet Take 30 mg by mouth two times a day. albuterol HFA (PROVENTIL HFA, VENTOLIN HFA) 90 [...] TAKE 1 TABLET BY MOUTH TWICE DAILY iv contrast (will be provided with [...] Contrast as designated per enteric contrast guidelines LABORATORY VALUES: WBC (k/uL) Date Value 09/12/2024 9.01 RBC (m/uL) Date Value 09/12/2024 4.37 Hemoglobin (g/dL) Date Value 09/12/2024 13.5 Hematocrit (%) Date Value 09/12/2024 39.7 MCV (fL) Date Value 09/12/2024 90.8 MCH (pg) Date Value 09/12/2024 30.9 MCHC (g/dL) Date Value 09/12/2024 34.0 RDW-CV (%) Date Value 09/12/2024 13.2 Platelet Count (k/uL) Date Value 09/12/2024 227 MPV (fL) Date Value 09/12/2024 9.3 Glucose (mg/dL) Date Value 09/12/2024 95 BUN (mg/dL) Date Value 09/12/2024 19 Creatinine (mg/dL) Date Value 09/12/2024 0.94 Sodium (mmol/L) Date Value 09/12/2024 137 Potassium (mmol/L) Date Value 09/12/2024 4.3 Chloride (mmol/L) Date Value 09/12/2024 102 CO2 (mmol/L) Date Value 09/12/2024 25 Protein, Total (g/dL) Date Value 09/12/2024 7.5 Albumin (g/dL) Date Value 09/12/2024 4.3 Calcium, Total (mg/dL) Date Value 09/12/2024 9.3 Alkaline Phosphatase (U/L) Date Value 09/12/2024 97 Bilirubin, Total (mg/dL) Date Value 09/12/2024 0.4 AST (U/L) Date Value 09/12/2024 15 ALT (U/L) Date Value 09/12/2024 8 (L) DIAGNOSIS: (C34.11) Malignant neoplasm of upper lobe of right lung (HCC) (primary encounter diagnosis) Plan: CT ABD/PEL W IVCON, CT CHEST W IVCON, iv contrast (will be provided with radiology test), enteric contrast (will be provided with radiology test), COMPLETE BLOOD COUNT AND DIFFERENTIAL, COMPREHENSIVE METABOLIC PANEL (C34.90) Malignant neoplasm of unspecified part of unspecified bronchus or lung (HCC) (R91.8) Lung nodules (L92.9) Non-caseating granuloma (C34.81) Malignant neoplasm of overlapping sites of right lung (HCC) PAST MEDICAL HISTORY Diagnosis Date CAD [...] Smoking status: Every Day Current packs/day: 1.00 Average packs/day: 1 pack/day for 48.0 years (48.0 ttl pk-yrs) Types: Cigarettes Passive exposure: Current Smokeless tobacco: Never Vaping Use Vaping status: Never Used Substance Use Topics Alcohol use: Not Currently Drug use: Never FAMILY HISTORY Problem Relation Age of Onset Diabetes Mother Hypertension Mother Heart disease Mother Hypertension Father Cancer Father Heart disease Father Hypertension Sister Heart disease Sister Diabetes Sister Cancer Sister I spent a total of 30 minutes on the date of the service which included preparing to see the patient, [id number] patient care, completing clinical documentation, performing a medically appropriate examination, counseling and educating the patient/family/caregiver, ordering medications, tests, or procedures, communicating with other HCPs (not separately reported), independently interpreting results (not separately reported), and communicating results to the patient/family/caregiver. Jaya Bai MD, CPE Hematology and Oncology Services Provided at: [place], [place] CC: Shaikh Lowell [address] [facility] [id number] Maliha Lentz DO David Hykes documented in this encounter [facility] 09-12-2024 Note HNO ID: [id number] Author: JAYA BAI MD Service: ? Author Type: Physician Type: Progress Notes Filed: 09/13/2024 12:54 Note Text: NAME: Alessio Burns [facility] NO.: [id number] DATE OF SERVICE: September 12, 2024 (Zac) Some elements in this clinic note that are critical to medical decision making have been carefully reviewed and included from a prior clinic note dated: July 24, 2024 (Zac) Referring Provider: Dr. Shaikh Etienne Additional Clinicians involved in Alessio Burns's care: Maliha Lentz DO DIAGNOSIS: lung cancer ASSESSMENT: 74 year old gentleman diagnosed with early stage [...] uptake in the distal stomach/proximal duodenum which needed further evaluation which turned up benign. His most current CT scans shows new 1 cm nodules but he was sick, so repeat CT in 6 weeks. PLAN: RTC [address]'s and labs same day preceding clinician appointment Triage please call results from today's CT May need to modify plan for future imaging and follow up. May need to obtain PET/CT Continue follow up with GI HPI: CASE HISTORY: Reverse Chronological Order 09/12/2024 - CT Chest: 1. Multiple subcentimeter nodular opacities, most are stable but some are slightly smaller since 07/19/24. 2. No evidence of new intrathoracic abnormalities. 07/19/2024 - CT CAP: Chest: Numerous bilateral pulmonary nodules are again identified, several of which appear increased in size, several of which have decreased in size, compatible with mixed response. No substantial intrathoracic adenopathy is appreciated. A/P: 1.6 cm subcapsular hepatic hypodensity appears less conspicuous from prior study of 02/23/2024. Otherwise, stable CT examination of the abdomen and pelvis. No substantial intra-abdominal or pelvic lymphadenopathy is identified. 04/18/2024 - CT Chest: Multiple scattered nodular opacities. Index nodules are as follows: * 0.9 cm right lower lobe nodule previously 1 cm * 0.7 cm right lower lobe nodule (image 81) previously 1.1 cm * 0.8 cm left lower lobe nodule (122), unchanged * 0.6 cm left upper lobe nodule (image 74) previously 1 mm 02/23/2024 - CT CAP: Chest: Multiple new nodular opacities measuring up to 1 cm. Differential diagnosis includes a combination of infectious/inflammatory etiologies or neoplasm. Consider interval follow-up and/or the workup. New right perihilar consolidative opacities may represent with new opacification of the right middle lobe bronchus most likely related to complete right middle lobe atelectasis. Differential diagnosis includes mucus plugging and endobronchial lesion. A/P: Nonspecific 2.1 cm hypodensity in the dome of the liver, stable since 01/04/23. No evidence of new intra-abdominal/pelvic abnormalities. Fat-containing right inguinal hernia. 01/11/2024 - US Vein Mapping LLE: No evidence of deep or superficial venous thrombosis 11/10/2023 - CT Chest: There h (more content not included)... [facility] 09-12-2024 History of Present illness Narrative Radiology Service Progress Note PATIENT NAME: Alessio Burns DATE OF SERVICE: September 12, 2024 TIME: 12:41 PM PATIENT IDENTITY VERIFICATION COMPLETED USING TWO [...] PATIENT PRESENTS WITH AN IMPLANTABLE OR ATTACHED CHIEF CREDIT OFFICER: No RADIOLOGY DEPARTMENT: CT; Exam(s) Completed: Chest PERIPHERAL IV DATA: Site assessment: Clean,Dry and Intact, Site disposition Discontinued SIGNED BY: RT Darius(R) September 12, 2024 12:41 PM documented in this encounter [facility] 09-12-2024 Note HNO ID: [id number] Author: CHARLA GODFREY RT(R) Service: ? Author Type: Technologist Type: Progress Notes Filed: 09/12/2024 12:42 Note Text: Radiology Service Progress Note PATIENT NAME: Alessio Burns DATE OF SERVICE: September 12, 2024 TIME: 12:41 PM PATIENT IDENTITY VERIFICATION COMPLETED USING TWO [...] PATIENT PRESENTS WITH AN IMPLANTABLE OR ATTACHED CHIEF CREDIT OFFICER: No RADIOLOGY DEPARTMENT: CT; Exam(s) Completed: Chest PERIPHERAL IV DATA: Site assessment: Clean,Dry and Intact, Site disposition Discontinued SIGNED BY: RT Darius(R) September 12, 2024 12:41 PM [facility] 09-11-2024 History of Present illness Narrative Associated Problem(s): HLD (hyperlipidemia) (CMS/HCC) Currently taking Denies any myalgias. Most recent Lipid Panel 09/27; Will recheck today. Continue current regimen. Associated Problem(s): Panlobular emphysema (CMS/HCC) On Trelegy. Chronic exertional ZHAO. Unchanged. Seen by Kenroy in 08/26 Continues to smoke. Encouraged to quite smoking Associated Problem(s): HTN (hypertension) (CMS/HCC) Currently taking amlodipine 5mg Entresto Metoprolol 100mg [...] log back with them to next visit. Images from the original note were not included. Subjective Patient ID: Alessio Burns is a 74 y.o. male who presents for Follow-up (3m ). HPI Specialists: Cardiology- Dr. Matthews Pulmonology- Dr. Lentz, [facility]- Tavo Hull, DIRECTOR OF PHYSICAL EDUCATION-C Heme/Onc- Dr. Jaay Bai- [facility] HTN: Currently taking amlodipine 5mg Entresto Metoprolol 100mg Spironolactone 25mg Cardiology managing medications; Follows closely. Checks BP at home; Averages are 120's SBP;BP is TOO LOW in office today, too tightly controlled. Pt reports dizziness occasionally. Will decrease Spironolactone to 12.5mg from 25mg today. If continues to be low will discontinue. Given BP log, advised pt to record BP and bring log back with them to next visit. HLD: Currently taking Denies any myalgias. Most recent Lipid Panel 09/27; Will recheck today. Continue current regimen. Component Ref Range & Units 11 mo ago (10/02/23) 11 mo ago (10/02/23) 11 mo ago (10/02/23) TRIGLYCERIDES <=150 mg/dL 121 142 R 19.7 Low R CHOLESTEROL <=200 mg/dL 120 4.0 R 0.7 High R HDL CHOLESTEROL 40 - 60 mg/dL 41 10.6 R 5.2 R Comment: > or =60 mg/dl - LOW CARDIOVASCULAR RISK <40 mg/dl - HIGH CARDIOVASCULAR RISK LDL CHOLESTEROL CALCULATED mg/dL 54.8 97 R 1.7 R Comment: <100 mg/dl OPTIMAL 100-129 mg/dl NEAR OR ABOVE OPTIMAL 130-159 mg/dl BORDERLINE HIGH 160-189 mg/dl HIGH >190 mg/dl VERY HIGH VLDL CHOLESTEROL mg/dL 24.2 0.3 R 1.3 High R CHOL HDL RATIO 2.9 16 R 0.06 High R Comment: 3.3 - 4.4 LOW RISK 4.4 - 7.1 AVERAGE RISK 7.1 - 11.0 MODERATE RISK >11.0 HIGH RISK ALANINE AMINOTRANSFERASE 17 R ALKALINE PHOSPHATASE 92 R TOTAL PROTEIN 7.8 R ALBUMIN LEVEL 3.4 R ALBUMIN GLOBULIN RATIO 0.8 Resulting Agency [facility] Review of Systems Constitutional: Negative for activity change, appetite change, chills, diaphoresis, fatigue, fever and unexpected weight change. HENT: Negative for congestion, ear pain, rhinorrhea, sinus pressure, sinus pain, sneezing, sore throat, trouble swallowing and voice change. Eyes: Negative for visual disturbance. Respiratory: Negative for cough, chest tightness, shortness of breath and wheezing. Cardiovascular: Negative for chest pain, palpitations and leg swelling. Gastrointestinal: Negative for abdominal distention, abdominal pain, blood in stool, constipation, diarrhea and vomiting. Genitourinary: Negative for decreased urine volume, dysuria, flank pain, frequency, hematuria and urgency. Musculoskeletal: Negative for arthralgias, gait problem, joint swelling and myalgias. Skin: Negative for rash. Neurological: Negative for dizziness, tremors, syncope, weakness, light-headedness and headaches. Psychiatric/Behavioral: Negative for decreased concentration and suicidal ideas. The patient is not nervous/anxious. Hematological: Does not bruise/bleed easily. Endocrine: Negative for cold intolerance, heat intolerance, polydipsia, polyphagia and polyuria. Objective Physical Exam Vitals reviewed. Constitutional: Appearance: Normal appearance. HENT: Right Ear: Tympanic membrane normal. Left Ear: Tympanic membrane normal. Nose: Nose normal. Mouth/Throat: Mouth: Mucous membranes are moist. Pharynx: Oropharynx is clear. Eyes: Pupils: Pupils are equal, round, and reactive to light. Cardiovascular: Rate and Rhythm: Normal rate and regular rhythm. Pulses: Normal pulses. Heart sounds: Normal heart sounds. Pulmonary: Effort: Pulmonary effort is normal. Breath sounds: Normal breath sounds. Abdominal: General: Abdomen is flat. Bowel sounds are normal. Palpations: Abdomen is soft. Skin: Capillary Refill: Capillary refill takes less than 2 seconds. Neurological: Mental Status: He is alert and oriented to person, place, and time. Assessment/Plan Problem List Items Addressed This Visit HLD (hyperlipidemia) ([facility]) - Primary Currently taking Denies any myalgias. Most recent Lipid Panel 09/27; Will recheck today. Continue current regimen. Relevant Orders Lipid panel HTN (hypertension) ([facility]) Currently taking amlodipine 5mg Entresto Metoprolol 100mg [...] log back with them to next visit. Panlobular emphysema (CMS/HCC) On Trelegy. Chronic exertional ZHAO. Unchanged. Seen by Pulm in 08/26 Continues to smoke. Encouraged to quite smoking Other Visit Diagnoses Depression, unspecified (CMS/HCC) Relevant Medications busPIRone (Buspar) 30 MG tablet documented in this encounter [facility] 08-15-2024 Miscellaneous Notes Alejandra from [facility] [employer] called about patients prescription for Trelegy 200. Alejandra wanted to have us update the script since it expires in 2 days and has not been filled yet. Alejandra was informed that patient has not been seen for a year and would need appointment. Home Care Liaison called patient and scheduled them for an appointment for 10/10/2024. documented in this encounter [facility] [employer] 08-15-2024 Telephone encounter Note Alejandra from [facility] [employer] called about patients prescription for Trelegy 200. Alejandra wanted to have us update the script since it expires in 2 days and has not been filled yet. Alejandra was informed that patient has not been seen for a year and would need appointment. Home Care Liaison called patient and scheduled them for an appointment for 10/10/2024. [facility] [employer] [facility] 08-06-2024 Telephone encounter Note ISAEL:06/03/2024 NOV:09/11/2024 [facility] 08-06-2024 Miscellaneous Notes ISAEL:06/03/2024 NOV:09/11/2024 documented in this encounter [facility] 07-24-2024 Instructions Jaya Bai MD - 07/24/2024 11:32 AM EST RTC [address] and labs same day preceding clinician appointment Continue follow up with GI documented in this encounter [facility] 07-24-2024 History of Present illness Narrative Images from the original note were not included. NAME: Alessio Burns [facility] NO.: [id number] DATE OF SERVICE: July 24, 2024 (Zac) Some elements in this clinic note that are critical to medical decision making have been carefully reviewed and included from a prior clinic note dated: April 18, 2024 (Zac) Referring Provider: Dr. Shaikh Etienne Additional Clinicians involved in Alessio Burns's care: Maliha Lentz DO DIAGNOSIS: lung cancer ASSESSMENT: 74 year old gentleman diagnosed with early stage [...] 6-month gap between [facility] and [facility]. He remains at high risk because of [...] uptake in the distal stomach/proximal duodenum which needed further evaluation which turned up benign. His most current CT scans shows new 1 cm nodules but he was sick, so repeat CT in 6 weeks. PLAN: RTC [address] and labs same day preceding clinician appointment Continue follow up with GI HPI: CASE HISTORY: Reverse Chronological Order 07/19/2024 - CT CAP: Chest: Numerous bilateral pulmonary nodules are again identified, several of which appear increased in size, several of which have decreased in size, compatible with mixed response. No substantial intrathoracic adenopathy is appreciated. A/P: 1.6 cm subcapsular hepatic hypodensity appears less conspicuous from prior study of 02/23/2024. Otherwise, stable CT examination of the abdomen and pelvis. No substantial intra-abdominal or pelvic lymphadenopathy is identified. 04/18/2024 - CT Chest: Multiple scattered nodular opacities. Index nodules are as follows: * 0.9 cm right lower lobe nodule previously 1 cm * 0.7 cm right lower lobe nodule (image 81) previously 1.1 cm * 0.8 cm left lower lobe nodule (122), unchanged * 0.6 cm left upper lobe nodule (image 74) previously 1 mm 02/23/2024 - CT CAP: Chest: Multiple new nodular opacities measuring up to 1 cm. Differential diagnosis includes a combination of infectious/inflammatory etiologies or neoplasm. Consider interval follow-up and/or the workup. New right perihilar consolidative opacities may represent with new opacification of the right middle lobe bronchus most likely related to complete right middle lobe atelectasis. Differential diagnosis includes mucus plugging and endobronchial lesion. A/P: Nonspecific 2.1 cm hypodensity in the dome of the liver, stable since 01/04/23. No evidence of new intra-abdominal/pelvic abnormalities. Fat-containing right inguinal hernia. 01/11/2024 - US Vein Mapping LLE: No evidence of deep or superficial venous thrombosis 11/10/2023 - CT Chest: There has been significant improvement in size and number of the previously identified multiple bilateral pulmonary nodules, as detailed above. Several subcentimeter mediastinal lymph nodes are again identified, unchanged. No substantial intrathoracic adenopathy is identified. Aneurysmal dilation of the ascending thoracic aorta measuring approximately 4.7-4.8 cm, stable. 08/04/2023 - PET/CT: No evidence of focal uptake to suggest FDG avid neoplastic process in the head/neck, abdomen/pelvis, or extremities/skeleton. Chest: Slight improvement in left upper lobe lung nodule. Other nodules below PET resolution stable. 05/30/2023 - EGD ([facility] [...] from incisors. Mucosa appeared normal. 04/30/2023 - PET/CT: Head and Neck: No evidence of FDG [...] most compatible with metastatic disease. 09/30/2022 - PET/CT: Multiple foci of uptake most active in [...] mass and no other disease. Updated Visit, July 24, 2024: Returns alone. Reviewed scans. Mixed changes. Will need to repeat CT in 6 weeks for comparison. If nodules increase to enlarge > 8 mm, will obtain PET/CT. He continues to smoke but is otherwise at his baseline state of health. Sister is having cardiac workup and could be here with him. Still taking Linzess for constipation. Updated Visit, April 18, 2024: Returns alone today and CT is pending read. Doing well otherwise but continues to gain weight. Updated Visit, March 01, 2024: Alessio returns with his sister, Maria Teresa. Recent CT CAP shows new nodules in his chest. Liver hypodensity has been stable for over 1 year. Monitor with additional CT chest in 6 weeks. He endorses chronic coughing, although not worse than his baseline. He is following with GI for constipation of unclear etiology. He had a fall recently, workup was negative for injury. He has lost 9lbs since his last visit. Updated Visit, November 17, 2023: Alessio returns today with Bari. CT shows significant improvement. Not anemic, counts are normal. He has been smoking more now, about 2 packs/day. He continues dealing with constipation - met [...] [facility] Results scanned to [facility] 06/04/2021 Updated Visit, February 05, 2021: Doing [...] colonoscopy. PATHOLOGY/MOLECULAR DATA 01/10/2022 Partial liver resection: [id number] Order: [id number] Collected 01/10/2022 11:56 AM Status: Final result [...] remainder of specimen. Gross examination performed at [facility], [address] [place] [id number] CLIA# [id number] [facility] January 12, 2022 9:23 AM REVIEW OF SYSTEMS Per HPI and otherwise negative by full review of organ systems. ECOG PERFORMANCE STATUS: 1 PHYSICAL EXAMINATION: Vitals: BP 119/64 Pulse 49 Temp (Src) 97.8 (Temporal) Resp 16 Ht 5' 5.984 (1.68m) Wt 184 lb 1.4 oz (83.5kg) SpO2 97% BMI 29.73 kg/(m^2). Body surface area is 1.97 meters [...] BLE ALLERGIES: ALLERGIES No Known Allergies MEDICATIONS: amitriptyline (ELAVIL) 50 mg tablet Take 50 mg by mouth daily at bedtime. linaCLOtide (LINZESS) 290 mcg capsule spironolactone (ALDACTONE) 25 mg tablet TRELEGY ELLIPTA 200-62.5-25 mcg inhalation powder INHALE [...] TAKE 1 TABLET BY MOUTH TWICE DAILY iv contrast (will be provided with [...] in the CT contrast administration guidelines link. iv contrast (will be provided with radiology [...] Contrast as designated per enteric contrast guidelines clopidogrel (PLAVIX) 75 mg tablet Take 1 tablet by mouth once daily for 15 days. Albuterol Sulfate 1.25 mg/3 mL nebulizer solution Use 1 Ampule via nebulizer every 6 hours as needed for wheezing/shortness of breath. LABORATORY VALUES: WBC (k/uL) Date Value 07/19/2024 7.48 RBC (m/uL) Date Value 07/19/2024 4.18 (L) Hemoglobin (g/dL) Date Value 07/19/2024 13.2 Hematocrit (%) Date Value 07/19/2024 37.9 (L) MCV (fL) Date Value 07/19/2024 90.7 MCH (pg) Date Value 07/19/2024 31.6 MCHC (g/dL) Date Value 07/19/2024 34.8 RDW-CV (%) Date Value 07/19/2024 13.0 Platelet Count (k/uL) Date Value 07/19/2024 236 MPV (fL) Date Value 07/19/2024 10.6 Glucose (mg/dL) Date Value 07/19/2024 93 BUN (mg/dL) Date Value 07/19/2024 14 Creatinine (mg/dL) Date Value 07/19/2024 0.99 Sodium (mmol/L) Date Value 07/19/2024 139 Potassium (mmol/L) Date Value 07/19/2024 4.2 Chloride (mmol/L) Date Value 07/19/2024 106 CO2 (mmol/L) Date Value 07/19/2024 25 Protein, Total (g/dL) Date Value 07/19/2024 7.4 Albumin (g/dL) Date Value 07/19/2024 4.1 Calcium, Total (mg/dL) Date Value 07/19/2024 9.4 Alkaline Phosphatase (U/L) Date Value 07/19/2024 97 Bilirubin, Total (mg/dL) Date Value 07/19/2024 0.4 AST (U/L) Date Value 07/19/2024 13 (L) ALT (U/L) Date Value 07/19/2024 7 (L) DIAGNOSIS: (C34.90) Malignant neoplasm of unspecified part of unspecified bronchus or lung (HCC) (primary encounter diagnosis) Plan: CT CHEST W IVCON, iv contrast (will be provided with radiology test), COMPLETE BLOOD COUNT AND DIFFERENTIAL, COMPREHENSIVE METABOLIC PANEL (R93.3) Abnormal finding on GI tract imaging Plan: CT CHEST W IVCON, iv contrast (will be provided with radiology test), COMPLETE BLOOD COUNT AND DIFFERENTIAL, COMPREHENSIVE METABOLIC PANEL (R91.8) Lung nodules Plan: CT CHEST W IVCON, iv contrast (will be provided with radiology test), COMPLETE BLOOD COUNT AND DIFFERENTIAL, COMPREHENSIVE METABOLIC PANEL (L92.9) Non-caseating granuloma Plan: CT CHEST W IVCON, iv contrast (will be provided with radiology test), COMPLETE BLOOD COUNT AND DIFFERENTIAL, COMPREHENSIVE METABOLIC PANEL PAST MEDICAL HISTORY Diagnosis Date [...] Smoking status: Every Day Current packs/day: 1.00 Average packs/day: 1 pack/day for 48.0 years (48.0 ttl pk-yrs) Types: Cigarettes Passive exposure: Current Smokeless tobacco: Never Vaping Use Vaping status: Never Used Substance Use Topics Alcohol use: Not Currently Drug use: Never FAMILY HISTORY Problem Relation Age of Onset Diabetes Mother Hypertension Mother Heart disease Mother Hypertension Father Cancer Father Heart disease Father Hypertension Sister Heart disease Sister Diabetes Sister Cancer Sister I spent a total of 30 minutes on the date of the service which included preparing to see the patient, [id number] patient care, completing clinical documentation, performing a medically appropriate examination, counseling and educating the patient/family/caregiver, ordering medications, tests, or procedures, communicating with other HCPs (not separately reported), independently interpreting results (not separately reported), and communicating results to the patient/family/caregiver. Jaya Bai MD, CPE Hematology and Oncology Services Provided at: [place], [place] CC: Shaikh Lowell [address] [facility] [id number] Maliha Lentz DO David Hykes documented in this encounter [facility] 07-24-2024 Note HNO ID: [id number] Author: JAYA BAI MD Service: ? Author Type: Physician Type: Progress Notes Filed: 07/24/2024 17:20 Note Text: NAME: Alessio Burns [facility] NO.: [id number] DATE OF SERVICE: July 24, 2024 (Zac) Some elements in this clinic note that are critical to medical decision making have been carefully reviewed and included from a prior clinic note dated: April 18, 2024 (Zac) Referring Provider: Dr. Shaikh Etienne Additional Clinicians involved in Alessio Burns's care: Maliha Lentz DO DIAGNOSIS: lung cancer ASSESSMENT: 74 year old gentleman diagnosed with early stage [...] 6-month gap [facility]. He remains at high risk because of [...] uptake in the distal stomach/proximal duodenum which needed further evaluation which turned up benign. His most current CT scans shows new 1 cm nodules but he was sick, so repeat CT in 6 weeks. PLAN: RTC [address]'s and labs same day preceding clinician appointment Continue follow up with GI HPI: CASE HISTORY: Reverse Chronological Order 07/19/2024 - CT CAP: Chest: Numerous bilateral pulmonary nodules are again identified, several of which appear increased in size, several of which have decreased in size, compatible with mixed response. No substantial intrathoracic adenopathy is appreciated. A/P: 1.6 cm subcapsular hepatic hypodensity appears less conspicuous from prior study of 02/23/2024. Otherwise, stable CT examination of the abdomen and pelvis. No substantial intra-abdominal or pelvic lymphadenopathy is identified. 04/18/2024 - CT Chest: Multiple scattered nodular opacities. Index nodules are as follows: * 0.9 cm right lower lobe nodule previously 1 cm * 0.7 cm right lower lobe nodule (image 81) previously 1.1 cm * 0.8 cm left lower lobe nodule (122), unchanged * 0.6 cm left upper lobe nodule (image 74) previously 1 mm 02/23/2024 - CT CAP: Chest: Multiple new nodular opacities measuring up to 1 cm. Differential diagnosis includes a combination of infectious/inflammatory etiologies or neoplasm. Consider interval follow-up and/or the workup. New right perihilar consolidative opacities may represent with new opacification of the right middle lobe bronchus most likely related to complete right middle lobe atelectasis. Differential diagnosis includes mucus plugging and endobronchial lesion. A/P: Nonspecific 2.1 cm hypodensity in the dome of the liver, stable since 01/04/23. No evidence of new intra-abdominal/pelvic abnormalities. Fat-containing right inguinal hernia. 01/11/2024 - US Vein Mapping LLE: No evidence of deep or superficial venous thrombosis 11/10/2023 - CT Chest: There has been significant improvement in size and number of the previously identified multiple bilateral pulmonary nodules, as detailed above. Several subcentimeter mediastinal lymph nodes are again identified, unchanged. No substantial intrathoracic adenopathy is identified. Aneurysmal dilation of the ascending thorac (more content not included)... [facility] 07-22-2024 Evaluation note Diagnosis Onset Date Resolution GERD (gastroesophageal reflux disease) acute July 22, 1:56pm Irritable bowel syndrome with constipation acute July 22 1:56pm [facility] Work Phone: 1(674) 757-588911-15-2024 History of Present illness Narrative* Chloe Ivey RN - 07/19/2024 10:15 AM EST Radiology Service Progress Note DATE OF SERVICE: July 19, 2024 TIME: 11:12 AM PATIENT WEIGHT: 179LBS PATIENT IDENTITY VERIFICATION COMPLETED USING TWO (2) [...] CREATININE: Creatinine Date Value Ref Range Status 07/19/2024 0.99 0.73 - 1.22 mg/dL Final 04/18/2024 1.12 0.73 - 1.22 mg/dL Final 02/23/2024 1.22 0.73 - 1.22 mg/dL Final Estimated Glomerular Filtration Rate Date Value Ref Range Status 07/19/2024 80 >=60 mL/min/1.73m Final Comment: Estimated Glomerular Filtration Rate (eGFR) is calculated using the 2020 CKD-EPI creatinine equation. This equation utilizes serum creatinine, sex, and age as parameters. The creatinine assay has traceable calibration to isotope dilution- mass spectrometry. Refer to KDIGO guidelines for clinical interpretation. In patients with unstable renal function, e.g. those with acute kidney injury, the eGFRmay not accurately reflect actual GFR. eGFR- Date Value Ref Range Status 10/22/2021 >60 Final P.O.C.T. RESULTS: POC done: Yes, See Lab Tab July 19, 2024 TREATMENT: N/A IV SITE: Ambulatory: A peripheral IV was started in the Left forearm with a Angio cath: 22 gauge. IV SITE APPEARANCE: Clean,Dry and Intact SIGNATURE: Chloe Ivey RN PATIENT NAME: Alessio Burns DATE: July 19, 2024 TIME: 11:12 AM * Charla Godfrey RT(R) - 07/19/2024 10:15 AM EST Radiology Service Progress Note PATIENT NAME: Alessio Burns DATE OF SERVICE: July 19, 2024 TIME: 11:23 AM PATIENT IDENTITY VERIFICATION COMPLETED USING TWO (2) IDENTIFIERS: Name and Date of confirmedby patient verbally. FALL SCREENING: Has the patient had 2 falls in the last year or 1 fall with injury or currently using an Ambulatory Assistive Device (Walker, Cane, Wheelchair, Crutches, etc.)? No PATIENT GENDER DATA: Male PATIENT RELEVANT IMPLANT DATA REVIEWED: Not Applicable PATIENT PRESENTS WITH AN IMPLANTABLE OR ATTACHED CHIEF CREDIT OFFICER: No RADIOLOGY DEPARTMENT: CT; Exam(s) Completed: Chest Abdomen Pelvis PERIPHERAL IV DATA: Site assessment: Clean,Dry and Intact, Site disposition Discontinued SIGNED BY: RT Darius(Arslan) July 19, 2024 11:23 AM [facility] NoteHNO ID: [id number] Author: CHARLA GODFREY RT(Arslan) Service: ? Author Type: Technologist Type: Progress Notes Filed: 07/19/2024 11:23 Note Text: Radiology Service Progress Note PATIENT NAME: Alessio Burns DATE OF SERVICE: July 19, 2024 TIME: 11:23 AM PATIENT IDENTITY VERIFICATION COMPLETED USING TWO [...] PATIENT PRESENTS WITH AN IMPLANTABLE OR ATTACHED CHIEF CREDIT OFFICER: No RADIOLOGY DEPARTMENT: CT; Exam(s) Completed: Chest Abdomen Pelvis PERIPHERAL IV DATA: Site assessment: Clean,Dry and Intact, Site disposition Discontinued SIGNED BY: Charla Godfrey RT(R) July 19, 2024 11:23 [facility]11-15-2024 NoteHNO ID: [id number] Author: CHLOE IVEY RN Service: ? Author Type: Registered Nurse Type: Progress Notes Filed: 07/19/2024 11:13 Note Text: Radiology Service Progress Note DATE OF SERVICE: July 19, 2024 TIME: 11:12 AM PATIENT WEIGHT: 179LBS PATIENT IDENTITY VERIFICATION COMPLETED USING TWO (2) [...] CREATININE: Creatinine Date Value Ref Range Status 07/19/2024 0.99 0.73 - 1.22 mg/dL Final 04/18/2024 1.12 0.73 - 1.22 mg/dL Final 02/23/2024 1.22 0.73 - 1.22 mg/dL Final Estimated Glomerular Filtration Rate Date Value Ref Range Status 07/19/2024 80 >=60 mL/min/1.73m? Final Comment: Estimated Glomerular [...] RESULTS: POC done: Yes, See Lab Tab July 19, 2024 TREATMENT: N/A IV SITE: Ambulatory: A peripheral IV was started in the Left forearm with a Angio cath: 22 gauge. IV SITE APPEARANCE: Clean,Dry and Intact SIGNATURE: Chloe Ivey RN PATIENT NAME: Alessio Burns DATE: July 19, 2024 TIME: 11:12 [facility]09-30-2024 History of Present illness Narrative* Jasen Vasques NP - 06/03/2024 2:30 PM EDTAssociated Problem(s): HLD (hyperlipidemia) (CMS/HCC) Currently taking Denies any myalgias. Most recent Lipid Panel 09/27; Will recheck in September. Continue current regimen. * Jasen Vasques NP - 06/03/2024 2:30 PM EDTAssociated Problem(s): HTN (hypertension) (CMS/HCC) Currently taking amlodipine 5mg Entresto Metoprolol 100mg Spironolactone 25mg Cardiology managing medications; Follows closely. Checks BP at home; Averages are 120's SBP; Denies orthostatic changes, dizziness, cough, shortness of breath, swelling in extremities. Continue current regimen. Given BP log, advised pt to record BP and bring log back with them to next visit. * Jasen Vasques NP - 06/03/2024 2:29 PM EDTAssociated Problem(s): Chronic obstructive pulmonary disease (CMS/HCC) Currently taking Trelegy. Still has ZHAO, daily cough. Current smoker, down to ppd; Follows closely with Pulmonary medicine. Continue current regimen. * Jasen Vasques NP - 06/03/2024 2:28 PM EDTAssociated Problem(s): Chronic idiopathic constipation Pt following clesely with GI; Currently taking Linzess 290mg; Normal colonoscopy - 04/25 - except for single polyp. Continue current regimen as directed by GI. * Jasen Vasques NP - 06/03/2024 2:00 PM EDT Images from the original note were not included. Subjective Patient ID: Alessio Burns is a 74 y.o. male who presents for No chief complaint on file.. Specialists: Cardiology- Dr. Matthews Pulmonology- Dr. Lentz, [facility]- Tavo Hull, DIRECTOR OF PHYSICAL EDUCATION-C Heme/Onc- Dr. Jaya Bai- [facility] HPI HTN: Currently taking amlodipine 5mg Entresto Metoprolol 100mg Spironolactone 25mg Cardiology managing medications; Follows closely. Checks BP at home; Averages are 120's SBP; Denies orthostatic changes, dizziness, cough, shortness of breath, swelling in extremities. Continue current regimen. Given BP log, advised pt to record BP and bring log back with them to next visit. HLD: Currently taking Denies any myalgias. Most recent Lipid Panel 09/27; Will recheck in September. Continue current regimen. Component Ref Range & Units 8 mo ago (10/02/23) 8 mo ago (10/02/23) 8 mo ago (10/02/23) TRIGLYCERIDES <=150 mg/dL 121 142 R 19.7 Low R CHOLESTEROL <=200 mg/dL 120 4.0 R 0.7 High R HDL CHOLESTEROL 40 - 60 mg/dL 41 10.6 R 5.2 R Comment: > or =60 mg/dl - LOW CARDIOVASCULAR RISK <40 mg/dl - HIGH CARDIOVASCULAR RISK LDL CHOLESTEROL CALCULATED mg/dL 54.8 97 R 1.7 R Comment: <100 mg/dl OPTIMAL 100-129 mg/dl NEAR OR ABOVE OPTIMAL 130-159 mg/dl BORDERLINE HIGH 160-189 mg/dl HIGH >190 mg/dl VERY HIGH VLDL CHOLESTEROL mg/dL 24.2 0.3 R 1.3 High R CHOL HDL RATIO 2.9 16 R 0.06 High R Comment: 3.3 - 4.4 LOW RISK 4.4 - 7.1 AVERAGE RISK 7.1 - 11.0 MODERATE RISK >11.0 HIGH RISK ALANINE AMINOTRANSFERASE 17 R ALKALINE PHOSPHATASE 92 R TOTAL PROTEIN 7.8 R ALBUMIN LEVEL 3.4 R ALBUMIN GLOBULIN RATIO 0.8 Resulting Agency [facility] Review of Systems Constitutional: Negative for activity change, appetite change, chills, diaphoresis, fatigue, fever and unexpected weight change. HENT: Negative for congestion, ear pain, rhinorrhea, sinus pressure, sinus pain, sneezing, sore throat, trouble swallowing and voice change. Eyes: Negative for visual disturbance. Respiratory: Negative for cough, chest tightness, shortness of breath and wheezing. Cardiovascular: Negative for chest pain, palpitations and leg swelling. Gastrointestinal: Negative for abdominal distention, abdominal pain, blood in stool, constipation, diarrhea and vomiting. Genitourinary: Negative for decreased urine volume, dysuria, flank pain, frequency, hematuria and urgency. Musculoskeletal: Negative for arthralgias, gait problem, joint swelling and myalgias. Skin: Negative for rash. Neurological: Negative for dizziness, tremors, syncope, weakness, light- headedness and headaches. Psychiatric/Behavioral: Negative for decreased concentration and suicidal ideas. The patient is notnervous/anxious. Hematological: Does not bruise/bleed easily. Endocrine: Negative for cold intolerance, heat intolerance, polydipsia, polyphagia and polyuria. Objective Physical Exam Vitals reviewed. Constitutional: Appearance: Normal appearance. HENT: Head: Normocephalic and atraumatic. Right Ear: Tympanic membrane normal. Left Ear: Tympanic membrane normal. Nose: Nose normal. Mouth/Throat: Mouth: Mucous membranes are moist. Pharynx: Oropharynx is clear. Eyes: Pupils: Pupils are equal, round, and reactive to light. Cardiovascular: Rate and Rhythm: Normal rate and regular rhythm. Pulses: Normal pulses. Heart sounds: Normal heart sounds. Pulmonary: Effort: Pulmonary effort is normal. Breath sounds: Normal breath sounds. Abdominal: General: Abdomen is flat. Bowel sounds are normal. Palpations: Abdomen is soft. Musculoskeletal: General: Normal range of motion. Cervical back: Normal range of motion. Skin: General: Skin is warm and dry. Capillary Refill: Capillary refill takes less than 2 seconds. Neurological: General: No focal deficit present. Mental Status: He is alert and oriented to person, place, and time. Psychiatric: Mood and Affect: Mood normal. Behavior: Behavior normal. Assessment/Plan Problem List Items Addressed This Visit Chronic obstructive pulmonary disease (CMS/HCC) Currently taking Trelegy. Still has ZHAO, daily cough. Current smoker, down to ppd; Follows closely with Pulmonary medicine. Continue current regimen. HLD (hyperlipidemia) ([facility]) Currently taking Denies any myalgias. Most recent Lipid Panel 09/27; Will recheck in September. Continue current regimen. HTN (hypertension) (CMS/HCC) - Primary Currently taking amlodipine 5mg Entresto Metoprolol 100mg Spironolactone 25mg Cardiology managing medications; Follows closely. Checks BP at home; Averages are 120's SBP; Denies orthostatic changes, dizziness, cough, shortness of breath, swelling in extremities. Continue current regimen. Given BP log, advised pt to record BP and bring log back with them to next visit. Chronic idiopathic constipation Pt following clesely with GI; Currently taking Linzess 290mg; Normal colonoscopy - 04/25 - except for single polyp. Continue current regimen as directed by GI. documented in this encounterChristian [id number] Telephone encounter Note* Telephone Encounter - Oanh Rodríguez - 04/19/2024 9:23 AM EDT Spoke to patient & scheduled him on 07/19/2024 at 10:[address] CAP & labs and DARLEEN at 11:30 am. Oanh Rodríguez [facility]08-16-2024 Miscellaneous Notes* Telephone Encounter - Oanh Rodríguez - 04/19/2024 9:23 AM EDT Spoke to patient & scheduled him on 07/19/2024 at 10:[address] CAP & labs and DARLEEN at 11:30 am. Oanh Rodríguez * Telephone Encounter - Wilmer Rosas RN - 04/19/2024 7:52 AM EDT Images from the original note were not included. Jaya Bai MD [facility] Triage Pool; [facility] Clerical Pool CT shows mostly improvement - will repeat CT CAP in 3 months with labs. RTC same day is fine or a few days after please Pt notified and denies questions, needs or concerns at this time. He will await call to schedule appts. PSS: please call to schedule CT/Lab/Darleen, as ordered Wilmer Rosas RN * Telephone Encounter - Jasen Laughlin - 04/18/2024 11:36 AM EDT Images from the original note were not included. Triage: Please see for results. Thanks! Jasen Laughlin documented in this encounterAshtabula [facility] Center08-16-2024 Telephone encounter Note * Telephone Encounter - Wilmer Rosas RN - 04/19/2024 7:52 AM EDT Images from the original note were not included. Jaya Bai MD [facility] Triage Pool; [facility] Clerical Pool CT shows mostly improvement - will repeat CT CAP in 3 months with labs. RTC same day is fine or a few days after please Pt notified and denies questions, needs or concerns at this time. He will await call to schedule appts. PSS: please call to schedule CT/Lab/Darleen, as ordered Wilmer Rosas RN [facility]08-15-2024 Telephone encounter Note* Telephone Encounter - Jasen Laughlin - 04/18/2024 11:36 AM EDT Images from the original note were not included. Triage: Please see for results. Thanks! Jasen Laughlin [facility]08-15-2024 Instructions* Patient Instructions* Jaya Bai MD - 04/18/2024 11:35 AM EDT concrete pouring supervisor to call results of today's CT Chest RTC TBD but anticipate [address] and labs. Continue follow up with GI documented in this encounterAshtabula County Medical Center08-15-2024 History of Present illness Narrative* Jaya Bai MD - 04/18/2024 11:30 AM EDT Images from the original note were not included. NAME: Alessio Burns [facility] NO.: [id number] DATE OF SERVICE: April 18, 2024 (Zac) Some elements in this clinic note that are critical to medical decision making have been carefully reviewed and included from a prior clinic note dated: March 01, 2024 (Zac) Referring Provider: Dr. Shaikh Etienne Additional Clinicians involved in Alessio Burns's care: Maliha Lentz DO DIAGNOSIS: lung cancer ASSESSMENT: 74 year old gentleman diagnosed with early stage [...] 6-[facility] He remains at high risk because of [...] uptake in the distal stomach/proximal duodenum which needed further evaluation which turned up benign. His most current CT scans shows new 1 cm nodules but he was sick, so repeat CT in 6 weeks. 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 Continue follow up with GI HPI: CASE HISTORY: Reverse Chronological Order 04/18/2024 - CT Chest: Multiple scattered nodular opacities. Index nodules are as follows: * 0.9 cm right lower lobe nodule previously 1 cm * 0.7 cm right lower lobe nodule (image 81) previously 1.1 cm * 0.8 cm left lower lobe nodule (122), unchanged * 0.6 cm left upper lobe nodule (image 74) previously 1 mm 02/23/2024 - CT CAP: Chest: Multiple new nodular opacities measuring up to 1 cm. Differential diagnosis includes a combination of infectious/inflammatory etiologies or neoplasm. Consider interval follow-up and/or the workup. New right perihilar consolidative opacities may represent with new opacification of the right middle lobe bronchus most likely related to complete right middle lobe atelectasis. Differential diagnosis includes mucus plugging and endobronchial lesion. A/P: Nonspecific 2.1 cm hypodensity in the dome of the liver, stable since 01/04/23. No evidence of new intra-abdominal/pelvic abnormalities. Fat-containing right inguinal hernia. 01/11/2024 - US Vein Mapping LLE: No evidence of deep or superficial venous thrombosis 11/10/2023 - CT Chest: There has been significant improvement in size and number of the previously identified multiple bilateral pulmonary nodules, as detailed above. Several subcentimeter mediastinal lymph nodes are againidentified, unchanged. No substantial intrathoracic adenopathy is identified. Aneurysmal dilation of the ascending thoracic aorta measuring approximately 4.7-4.8 cm, stable. 08/04/2023 - PET/CT: No evidence of focal uptake to suggest FDG avid neoplastic process in the head/neck, abdomen/pelvis, or extremities/skeleton. Chest: Slight improvement in left upper lobe lung nodule. Other nodules below PET resolution stable. 05/30/2023 - EGD ([facility] Duodenum: Mild bulbar duodenitis, otherwise normal. Stomach: Mild hemorrhagic gastritis, most pronounced in the antrum and distal body. Biopsies obtained, bottle 1-rule out H. Pylori. Otherwise unremarkable. Esophagus: Diaphragmatic hiatus was 43 cm from incisors and GE junction was at 41 cm from incisors.Squamocolumnar junction was at 41 cm from incisors. Mucosa appeared normal. 04/30/2023 - PET/CT: Head and Neck: No evidence of FDG [...] most compatible with metastatic disease. 09/30/2022 - PET/CT: Multiple foci of uptake most active in [...] tissue prominence at the santy bilaterally, stable. Borderlineaneurysmal enlargement of the ascending and mild dilation [...] likely related to respiratory bronchiolitis or other i nfectious/inflammatory etiologies, stable. Increased mild mucous plugging. A/P: No evidence of intra-abdominal/intrapelvic metastases. No interval change since 01/27/2021. Fat-containing right inguinal hernia. 04/22/2021 - Colonoscopy ([facility]): Large blanketing polyp ascending, removed with a hot snare in perianal fashion and retrieved. Largebroad based polyp transverse, removed with endoscopic mucosal resection using hot snare, retrieved,and tattooed. Two medium-sized sessile polyps, sigmoid, removed [...] comment. Malignant cells stain positive for lane cytokeratinfocal and p63 weak focal. Negative for neuroendocrine markers. Negative for melanoma markers. Differential diagnosis include sarcomatoid carcinoma and high-grade sarcoma among others. Additional stains pending. Preceding Nichole needle biopsy was negative for malignancy. 06/2020 - Aortic valve repair with CABG 06/03/2020 - PET CT: Uptake in a 3 cm right apical mass and no other disease. Updated Visit, April 18, 2024: Returns alone today and CT is pending read. Doing well otherwise but continues to gain weight. Updated Visit, March 01, 2024: Alessio returns with his sister, Maria Teresa. Recent CT CAP shows new nodules in his chest. Liver hypodensity has been stable for over 1 year. Monitor with additional CT chest in 6 weeks. He endorses chronic coughing, although not worse than his baseline. He is following with GI for constipation of unclear etiology. He had a fall recently, workup was negative for injury. He has lost 9lbs since his last visit. Updated Visit, November 17, 2023: Alessio returns today with Bari. CT shows significant improvement. Not anemic, counts are normal. He has been smoking more now, about 2 packs/day. He continues dealing with constipation - met [...] It was recommended he [facility] imaging due to the [...] [facility] scanned to [facility] 06/04/2021 Updated Visit, February 05, 2021: Doing [...] colonoscopy. PATHOLOGY/MOLECULAR DATA 01/10/2022 Partial liver resection: [id number] Order: [id number] Collected 01/10/2022 11:56 AM Status: Final result [...] A3-A4 remainderof specimen. Gross examination performed at [facility], [address] [address] CLIA# [id number] [facility] January 12, 2022 9:23 AM REVIEW OF SYSTEMS Per HPI and otherwise negative by full review of organ systems. ECOG PERFORMANCE STATUS: 1 PHYSICAL EXAMINATION: Vitals: BP 133/66 Pulse 56 Temp (Src) 97.8 (Temporal) Resp 16 Ht 5' 5.984 (1.68m) Wt 186lb 11.7 oz (84.7kg) SpO2 96% BMI 30.15 kg/(m^2). Body surface area is 1.99 meters [...] BLE ALLERGIES: ALLERGIES No Known Allergies MEDICATIONS: amitriptyline (ELAVIL) 50 mg tablet Take 50 mg by mouth daily at bedtime. LINZESS 145 mcg capsule TAKE 1 CAPSULE BY MOUTH IN THE MORNING BEFORE MEALS DO NOT CRUSH OR CHEW spironolactone (ALDACTONE) 25 mg tablet TRELEGY ELLIPTA 200-62.5-25 mcg inhalation powder INHALE [...] TAKE 1 TABLET BY MOUTH TWICE DAILY iv contrast (will be provided with radiology test) CT Chest ABD/PEL-Inject, intravenously, once for1 dose.No IV access, insert saline lock prior [...] both Oral and Rectal, Enteric Tube, Stoma orIndwelling Catheter, Enteric Contrast as designated per enteric contrast guidelines iv contrast (will be provided with radiology test) CT Chest ABD/PEL-Inject, intravenously, once for1 dose.No IV access, insert saline lock prior [...] both Oral and Rectal, Enteric Tube, Stoma orIndwelling Catheter, Enteric Contrast as designated per enteric contrast guidelines clopidogrel (PLAVIX) 75 mg tablet Take 1 tablet by mouth once daily for 15 days. Albuterol Sulfate 1.25 mg/3 mL nebulizer solution Use 1 Ampule via nebulizer every 6 hours as needed for wheezing/shortness of breath. LABORATORY VALUES: WBC (k/uL) Date Value 04/18/2024 9.98 RBC (m/uL) Date Value 04/18/2024 4.29 Hemoglobin (g/dL) Date Value 04/18/2024 13.3 Hematocrit (%) Date Value 04/18/2024 39.6 MCV (fL) Date Value 04/18/2024 92.3 MCH (pg) Date Value 04/18/2024 31.0 MCHC (g/dL) Date Value 04/18/2024 33.6 RDW-CV (%) Date Value 04/18/2024 14.0 Platelet Count (k/uL) Date Value 04/18/2024 280 MPV (fL) Date Value 04/18/2024 9.6 Glucose (mg/dL) Date Value 04/18/2024 109 (H) BUN (mg/dL) Date Value 04/18/2024 22 Creatinine (mg/dL) Date Value 04/18/2024 1.12 Sodium (mmol/L) Date Value 04/18/2024 143 Potassium (mmol/L) Date Value 04/18/2024 4.1 Chloride (mmol/L) Date Value 04/18/2024 110 (H) CO2 (mmol/L) Date Value 04/18/2024 26 Protein, Total (g/dL) Date Value 04/18/2024 8.3 (H) Albumin (g/dL) Date Value 04/18/2024 4.6 Calcium, Total (mg/dL) Date Value 04/18/2024 10.0 Alkaline Phosphatase (U/L) Date Value 04/18/2024 97 Bilirubin, Total (mg/dL) Date Value 04/18/2024 0.3 AST (U/L) Date Value 04/18/2024 15 ALT (U/L) Date Value 04/18/2024 9 (L) DIAGNOSIS: (C34.90) Malignant neoplasm of unspecified part of unspecified bronchus or lung (HCC) (primary encounter diagnosis) Plan: COMPLETE BLOOD COUNT AND DIFFERENTIAL, COMPREHENSIVE METABOLIC PANEL, CT ABD/PEL W IVCON, CT CHEST W IVCON, iv contrast (will be provided with radiology test), enteric contrast (will be provided with radiology test), COMPLETE BLOOD COUNT AND DIFFERENTIAL, COMPREHENSIVE METABOLIC PANEL (R93.3) Abnormal finding on GI tract imaging Plan: CT ABD/PEL W IVCON, CT CHEST W IVCON, iv contrast (will be provided with radiology test), enteric contrast (will be provided with radiology test), COMPLETE BLOOD COUNT AND DIFFERENTIAL, COMPREHENSIVE METABOLIC PANEL (C34.90) Malignant neoplasm of lung, unspecified laterality, unspecified part of lung (HCC) Plan: CT ABD/PEL W IVCON PAST MEDICAL HISTORY No date: CAD (coronary artery disease) No date: CHD (coronary heart disease) No date: Chest pain, cardiac No date: COPD (chronic obstructive pulmonary disease) (HCC) No date: Depression No date: Diabetes (HCC) No date: Heart problem No date: HTN (hypertension) No date: Hyperlipidemia No date: Insomnia 01/2021: Lung mass Comment: referral Dr Etienne No date: Lung trouble No date: Tobacco user PAST SURGICAL HISTORY No date: CABG (1) VEIN GRAFT & ARTERIAL GRAFT No date: COLONOSCOPY SCREENING No date: LOBECTOMY, SEGMENT No date: PAST SURGICAL HISTORY OF Comment: plate in head Social History Tobacco Use [...] which included preparing to see the patient, [id number] patient care, completing clinical documentation, performing a medically appropriate examination, counseling and educating the patient/family/caregiver, ordering medications, tests, or p rocedures, communicating with other HCPs (not separately reported), independently interpreting results (not separately reported), and communicating results to the patient/family/caregiver. Jaya Bai MD, CPE Hematology and Oncology Services Provided at: [place], [place] CC: Shaikh Lowell [address] [facility] [address] Maliha Lentz DO David Hykes documented in this encounterAshtabula [facility]08-15-2024 NoteHNO ID: [id number] Author: JAYA BAI MD Service: ? Author Type: Physician Type: Progress Notes Filed: 04/18/2024 22:08 Note Text: NAME: Alessio Burns [facility] NO.: [id number] DATE OF SERVICE: April 18, 2024 (Zac) Some elements in this clinic note that are critical to medical decision making have been carefully reviewed and included from a prior clinic note dated: March 01, 2024 (Zac) Referring Provider: Dr. Shaikh Etienne Additional Clinicians involved in Alessio Burns's care: Maliha Lentz DO DIAGNOSIS: lung cancer ASSESSMENT: 74 year old gentleman diagnosed with early stage [...] uptake in the distal stomach/proximal duodenum which needed further evaluation which turned up benign. His most current CT scans shows new 1 cm nodules but he was sick, so repeat CT in 6 weeks. 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 Continue follow up with GI HPI: CASE HISTORY: Reverse Chronological Order 04/18/2024 - CT Chest: Multiple scattered nodular opacities. Index nodules are as follows: * 0.9 cm right lower lobe nodule previously 1 cm * 0.7 cm right lower lobe nodule (image 81) previously 1.1 cm * 0.8 cm left lower lobe nodule (122), unchanged * 0.6 cm left upper lobe nodule (image 74) previously 1 mm 02/23/2024 - CT CAP: Chest: Multiple new nodular opacities measuring up to 1 cm. Differential diagnosis includes a combination of infectious/inflammatory etiologies or neoplasm. Consider interval follow-up and/or the workup. New right perihilar consolidative opacities may represent with new opacification of the right middle lobe bronchus most likely related to complete right middle lobe atelectasis. Differential diagnosis includes mucus plugging and endobronchial lesion. A/P: Nonspecific 2.1 cm hypodensity in the dome of the liver, stable since 01/04/23. No evidence of new intra-abdominal/pelvic abnormalities. Fat-containing right inguinal hernia. 01/11/2024 - US Vein Mapping LLE: No evidence of deep or superficial venous thrombosis 11/10/2023 - CT Chest: There has been significant improvement in size and number of the previously identified multiple bilateral pulmonary nodules, as detailed above. Several subcentimeter mediastinal lymph nodes are again identified, unchanged. No substantial intrathoracic adenopathy is identified. Aneurysmal dilation of the ascending thoracic aorta measuring approximately 4.7-4.8 cm, stable. 08/04/2023 - PET/CT: No evidence of focal uptake to suggest FDG avid neoplastic process in the head/neck, abdomen/pelvis, or extremities/skeleton. Chest: Slight improvement in left upper lobe lung nodule. Other nodules below PET resolution stable. 05/30/2023 - EGD ([facility] Duodenum: Mild bulbar duodenitis, otherwise normal. Stomach: Mild hemorrhagic gastritis, most pronounced in the antrum and distal body. Biopsies obtained, bottl (more content not included)...[facility]08-15-2024 History of Present illness Narrative* Chloe Ivey RN - 04/18/2024 10:45 AM EDT Radiology Service Progress Note DATE OF SERVICE: April 18, 2024 TIME: 10:51 AM PATIENT WEIGHT: 186LBS PATIENT IDENTITY VERIFICATION COMPLETED USING TWO (2) [...] Value Ref Range Status 02/23/2024 63 >=60 mL/min/1.73m Final Comment: Estimated Glomerular Filtration Rate (eGFR) is calculated using the 2020 CKD-EPI creatinine equation. This equation utilizes serum creatinine, sex, and age as parameters. The creatinine assay has traceable calibration to isotope dilution- mass spectrometry. Refer to KDIGO guidelines for clinical interpretation. In patients with unstable renal function, e.g. those with acute kidney injury, the eGFRmay not accurately reflect actual GFR. eGFR- Date Value Ref Range Status 10/22/2021 >60 Final P.O.C.T. RESULTS: POC done: Yes, See Lab Tab April 18, 2024 TREATMENT: N/A IV SITE: Ambulatory: A peripheral IV was started in the Right antecubital site with a Angio cath: 20 gauge. IV SITE APPEARANCE: Clean,Dry and Intact SIGNATURE: Chloe Ivey RN PATIENT NAME: Alessio Burns DATE: April 18, 2024 TIME: 10:51 AM * Charla Godfrey, RT(R) - 04/18/2024 10:45 AM EDT Radiology Service Progress Note PATIENT NAME: Alessio Burns DATE OF SERVICE: April 18, 2024 TIME: 10:46 AM PATIENT IDENTITY VERIFICATION COMPLETED USING TWO (2) IDENTIFIERS: Name and Date of confirmedby patient verbally. FALL SCREENING: Has the patient had 2 falls in the last year or 1 fall with injury or currently using an Ambulatory Assistive Device (Walker, Cane, Wheelchair, Crutches, etc.)? No PATIENT GENDER DATA: Male PATIENT RELEVANT IMPLANT DATA REVIEWED: Not Applicable PATIENT PRESENTS WITH AN IMPLANTABLE OR ATTACHED CHIEF CREDIT OFFICER: No RADIOLOGY DEPARTMENT: CT; Exam(s) Completed: Chest PERIPHERAL IV DATA: Site assessment: Clean,Dry and Intact, Site disposition Discontinued SIGNED BY: ALFREDO Mccoy) April 18, 2024 10:46 AM documented in this encounterAshtabula [facility] Center08-15-2024 NoteHNO ID: [id number] Author: CHARLA GODFREY RT (R) Service: ? Author Type: Technologist Type: Progress Notes Filed: 04/18/2024 10:56 Note Text: Radiology Service Progress Note PATIENT NAME: Alessio Burns DATE OF SERVICE: April 18, 2024 TIME: 10:46 AM PATIENT IDENTITY VERIFICATION COMPLETED [...] PATIENT PRESENTS WITH AN IMPLANTABLE OR ATTACHED CHIEF CREDIT OFFICER: No RADIOLOGY DEPARTMENT: CT; Exam(s) Completed: Chest PERIPHERAL IV DATA: Site assessment: Clean,Dry and Intact, Site disposition Discontinued SIGNED BY: RT Darius(Arslan) April 18, 2024 10:46 [facility]08-15-2024 NoteHNO ID: [id number] Author: CHLOE IVEY RN Service: ? Author Type: Registered Nurse Type: Progress Notes Filed: 04/18/2024 10:52 Note Text: Radiology Service Progress Note DATE OF SERVICE: April 18, 2024 TIME: 10:51 AM PATIENT WEIGHT: 186LBS PATIENT IDENTITY VERIFICATION COMPLETED USING TWO (2) [...] RESULTS: POC done: Yes, See Lab Tab April 18, 2024 TREATMENT: N/A IV SITE: Ambulatory: A peripheral IV was started in the Right antecubital site with a Angio cath: 20 gauge. IV SITE APPEARANCE: Clean,Dry and Intact SIGNATURE: Chloe Ivey RN PATIENT NAME: Alessio Burns DATE: April 18, 2024 TIME: 10:51 [facility]08-15-2024 Telephone encounter Note* Telephone Encounter - Chloe Ivey RN - 04/18/2024 7:08 AM EDT Please sign pended labs for 6 week f/u if agreeable-will draw with CT today Thank You! Chloe Ivey RN [facility]08-15-2024 Miscellaneous Notes* Telephone Encounter - Chloe Ivey RN - 04/18/2024 7:08 AM EDT Please sign pended labs for 6 week f/u if agreeable-will draw with CT today Thank You! Chloe Ivey, RN documented in this encounterAshtabula County [facility] Center07-31-2024 NoteUT Cardiology - [facility] Brett Burns is a 74 y.o. year old male patient being seen for 6 mo follow up CAD, AAA, hx of aortic valve replacement, carotid artery stenosis, and chronic systolic heart failure. Had echo last week. Says his chest pain and ZHAO remain unchanged from prior visit in Oct 2023. Had 1 episode of lightheadedness since then, and he isn't sure if he passed out or not. He got up out of bed and fell. C/o fatigue and intermittent weakness. Patient Active Problem List Diagnosis Aneurysm of [...] is seen in follow-up. He is a 74-year-old man who has history of coronary artery [...] lobectomy for lung cancer on 09/24/2020 at [facility] with Dr. Lisa. He was admitted to the [facility] in February 2021 with atypical chest pain. He ruled out for myocardial infarction by high-sensitivity troponin. He was admitted on 10/24/2021 to the [facility] with decompensated heart failure and COPD exacerbation. [...] April 2023 he was evaluated in the [facility] emergency room because of worsening shortness of breath. D-dimers were elevated and a CT of the chest showed no pulmonary embolism and the ascending aortic aneurysm measured at 4.0 cm. Today he reports that he has been having episodes of sharp chest pain located on the left side of the chest lasting about a second, this is chronic. Has chronic shortness of breath that seem to have worsened. He has no angina. No significant lower extremity swelling. No palpitations. He is being evaluated for possible recurrence of lung cancer. Recent CT scan of the chest shows abnormalities and this will be followed up by upcoming CT scans in April 2024. He continues to smoke. Review of Systems Constitutional: Positive for malaise/fatigue. Cardiovascular: Positive for chest pain, dyspnea on exertion and palpitations ( every so often ). Musculoskeletal: Positive for falls (1 episode). Neurological: Positive for light-headedness (1 episode), loss of balance (1 episode) and weakness. All other systems reviewed and are negative. Objective Visit Vitals BP 130/86 (BP Lo (more content not included)...[facility]06-28-2024 Instructions* Patient Instructions* Rima Kapoor - 03/01/2024 2:45 PM EDT RTC in [address] Chest with labs same day Continue follow up with GI documented in this encounterAsht[facility]ula [facility]06-28-[facility] History of Present illness Narrative* Jaya Bai MD - 03/01/2024 2:30 PM EDT Images from the original note were not included. NAME: Alessio Burns [facility] NO.: [id number] DATE OF SERVICE: March 01, 2024 (Zac) Some elements in this clinic note that are critical to medical decision making have been carefully reviewed and included from a prior clinic note dated: November 17, 2023 (Zac) Referring Provider: Dr. Shaikh Etienne [...] 6-month gap between resection and presentation to [facility]. He remains at high risk because of [...] uptake in the distal stomach/proximal duodenum which needed further evaluation which turned up benign. His most current CT scans shows new 1 cm nodules but he was sick, so repeat CT in 6 weeks. PLAN: RTC in [address] Chest with labs same day Continue follow up with GI HPI: CASE HISTORY: Reverse Chronological Order 02/23/2024 - CT CAP: Chest: Multiple new nodular opacities measuring up to 1 cm. Differential diagnosis includes a combination of infectious/inflammatory etiologies or neoplasm. Consider interval follow-up and/or the workup. New right perihilar consolidative opacities may represent with new opacification of the right middle lobe bronchus most likely related to complete right middle lobe atelectasis. Differential diagnosis includes mucus plugging and endobronchial lesion. A/P: Nonspecific 2.1 cm hypodensity in the dome of the liver, stable since 01/04/23. No evidence of new intra-abdominal/pelvic abnormalities. Fat-containing right inguinal hernia. 01/11/2024 - US Vein Mapping LLE: No evidence of deep or superficial venous thrombosis 11/10/2023 - CT Chest: There has been significant improvement in size and number of the previously identified multiple bilateral pulmonary nodules, as detailed above. Several subcentimeter mediastinal lymph nodes are againidentified, unchanged. No substantial intrathoracic adenopathy is identified. Aneurysmal dilation of the ascending thoracic aorta measuring approximately 4.7-4.8 cm, stable. 08/04/2023 - PET/CT: No evidence of focal uptake to suggest FDG avid neoplastic process in the head/neck, abdomen/pelvis, or extremities/skeleton. Chest: Slight improvement in left upper lobe lung nodule. Other nodules below PET resolution stable. 05/30/2023 - EGD ([facility] Duodenum: Mild bulbar duodenitis, otherwise normal. Stomach: Mild hemorrhagic gastritis, most pronounced in the antrum and distal body. Biopsies obtained, bottle 1-rule out H. Pylori. Otherwise unremarkable. Esophagus: Diaphragmatic hiatus was 43 cm from incisors and GE junction was at 41 cm from incisors.Squamocolumnar junction was at 41 cm from incisors. Mucosa appeared normal. 04/30/2023 - PET/CT: Head and Neck: No evidence of FDG [...] most compatible with metastatic disease. 09/30/2022 - PET/CT: Multiple foci of uptake most active in [...] tissue prominence at the santy bilaterally, stable. Borderlineaneurysmal enlargement of the ascending and mild dilation [...] likely related to respiratory bronchiolitis or other i nfectious/inflammatory etiologies, stable. Increased mild mucous plugging. A/P: No evidence of intra-abdominal/intrapelvic metastases. No interval change since 01/27/2021. Fat-containing right inguinal hernia. 04/22/2021 - Colonoscopy ([facility]): Large blanketing polyp ascending, removed with a hot snare in perianal fashion and retrieved. Largebroad based polyp transverse, removed with endoscopic mucosal resection using hot snare, retrieved,and tattooed. Two medium-sized sessile polyps, sigmoid, removed [...] comment. Malignant cells stain positive for lane cytokeratinfocal and p63 weak focal. Negative for neuroendocrine markers. Negative for melanoma markers. Differential diagnosis include sarcomatoid carcinoma and high-grade sarcoma among others. Additional stains pending. Preceding Nichole needle biopsy was negative for malignancy. 06/2020 - Aortic valve repair with CABG 06/03/2020 - PET CT: Uptake in a 3 cm right apical mass and no other disease. Updated Visit, March 01, 2024: Alessio returns with his sister, Maria Teresa. Recent CT CAP shows new nodules in his chest. Liver hypodensity has been stable for over 1 year. Monitor with additional CT chest in 6 weeks. He endorses chronic coughing, although not worse than his baseline. He is following with GI for constipation of unclear etiology. He had a fall recently, workup was negative for injury. He has lost 9lbs since his last visit. Updated Visit, November 17, 2023: Alessio returns [...] It was recommended he follow up with [facility] for next imaging due to the [...] [facility] Results scanned to [facility] 06/04/2021 Updated Visit, February 05, 2021: Doing [...] colonoscopy. PATHOLOGY/MOLECULAR DATA 01/10/2022 Partial liver resection: [id number] Order: [id number] Collected 01/10/2022 11:56 AM Status: Final result [...] A3-A4 remainderof specimen. [facility] [address] [facility] [address] CLIA# [id number] [facility] January 12, 2022 9:23 AM REVIEW OF SYSTEMS Per HPI and otherwise negative by full review of organ systems. ECOG PERFORMANCE STATUS: 1 PHYSICAL EXAMINATION: Vitals: BP 112/63 Pulse 63 Temp (Src) 97 (Temporal) Resp 18 Wt 185 lb 12.8 oz (84.3kg) SpO2 96% Body surface area is 1.98 meters squared. Exam limited to gross visualization [...] BLE ALLERGIES: ALLERGIES No Known Allergies MEDICATIONS: amitriptyline (ELAVIL) 50 mg tablet Take 50 mg by mouth daily at bedtime. LINZESS 145 mcg capsule TAKE 1 CAPSULE BY MOUTH IN THE MORNING BEFORE MEALS DO NOT CRUSH OR CHEW clopidogrel (PLAVIX) 75 mg tablet Take 1 tablet by mouth once daily for 15 days. spironolactone (ALDACTONE) 25 mg tablet TRELEGY ELLIPTA 200-62.5-25 mcg inhalation powder INHALE [...] TAKE 1 TABLET BY MOUTH TWICE DAILY iv contrast (will be provided with [...] in the CT contrast administration guidelines link. iv contrast (will be provided with radiology test) CT Chest ABD/PEL-Inject, intravenously, once for1 dose.No IV access, insert saline lock prior [...] both Oral and Rectal, Enteric Tube, Stoma orIndwelling Catheter, Enteric Contrast as designated per enteric contrast guidelines LABORATORY VALUES: WBC (k/uL) Date Value 02/23/2024 10.75 RBC (m/uL) Date Value 02/23/2024 4.50 Hemoglobin (g/dL) Date Value 02/23/2024 13.5 Hematocrit (%) Date Value 02/23/2024 41.2 MCV (fL) Date Value 02/23/2024 91.6 MCH (pg) Date Value 02/23/2024 30.0 MCHC (g/dL) Date Value 02/23/2024 32.8 RDW-CV (%) Date Value 02/23/2024 13.3 Platelet Count (k/uL) Date Value 02/23/2024 245 MPV (fL) Date Value 02/23/2024 9.2 Glucose (mg/dL) Date Value 02/23/2024 107 (H) BUN (mg/dL) Date Value 02/23/2024 18 Creatinine (mg/dL) Date Value 02/23/2024 1.22 Sodium (mmol/L) Date Value 02/23/2024 141 Potassium (mmol/L) Date Value 02/23/2024 4.8 Chloride (mmol/L) Date Value 02/23/2024 107 CO2 (mmol/L) Date Value 02/23/2024 27 Protein, Total (g/dL) Date Value 02/23/2024 8.1 (H) Albumin (g/dL) Date Value 02/23/2024 4.3 Calcium, Total (mg/dL) Date Value 02/23/2024 9.7 Alkaline Phosphatase (U/L) Date Value 02/23/2024 110 Bilirubin, Total (mg/dL) Date Value 02/23/2024 0.3 AST (U/L) Date Value 02/23/2024 11 (L) ALT (U/L) Date Value 02/23/2024 8 (L) DIAGNOSIS: (R91.8) Lung nodules (primary encounter diagnosis) Plan: CT CHEST W IVCON, CREATININE BLD (C34.90) Malignant neoplasm of unspecified part of unspecified bronchus or lung (HCC) Plan: CT CHEST W IVCON, CREATININE BLD PAST MEDICAL HISTORY Diagnosis Date CAD (coronary [...] which included preparing to see the patient, [id number] patient care, completing clinical documentation, performing a medically appropriate examination, counseling and educating the patient/family/caregiver, ordering medications, tests, or p rocedures, communicating with other HCPs (not separately reported), independently interpreting results (not separately reported), and communicating results to the patient/family/caregiver. Jaya Bai MD, CPE Hematology and Oncology Services Provided at: [place], [place] Scribe Attestation: This note was scribed by Rima Kapoor on March 01, 2024 under the direction and supervision of Dr. Jaya Bai. I attest that all of the information documented is correct to the best of my knowledge. Provider Attestation: I, Jaya Bai MD, attest that all information documented by the above scribe is correct, and was supervised by me and under my direction. CC: Shaikh Lowell [address] [facility] [address] Maliha Lentz DO David Hykes documented in this encounterAshtabula County Medical Center06-21-2024 History of Present illness Narrative* Chloe Ivey RN - 02/23/2024 12:15 PM EDT Radiology Service Progress Note DATE OF SERVICE: [...] Value Ref Range Status 02/23/2024 63 >=60 mL/min/1.73m Final Comment: Estimated Glomerular Filtration Rate (eGFR) is calculated using the 2020 CKD-EPI creatinine equation. This equation utilizes serum creatinine, sex, and age as parameters. The creatinine assay has traceable calibration to isotope dilution- mass spectrometry. Refer to KDIGO guidelines for clinical interpretation. In patients with unstable renal function, e.g. those with acute kidney injury, the eGFRmay not accurately reflect actual GFR. eGFR- Date [...] DATE: February 23, 2024 TIME: 12:17 PM * Charla Godfrey RT(R) - 02/23/2024 12:15 PM EDT Radiology Service Progress Note PATIENT NAME: Alessio Burns DATE OF SERVICE: February 23, 2024 TIME: 1:41 PM PATIENT IDENTITY VERIFICATION COMPLETED USING TWO (2) IDENTIFIERS: Name and Date of confirmedby patient verbally. FALL SCREENING: Has the patient had 2 falls in the last year or 1 fall with injury or currently using an Ambulatory Assistive Device (Walker, Cane, Wheelchair, Crutches, etc.)? No PATIENT GENDER DATA: Male PATIENT RELEVANT IMPLANT DATA REVIEWED: Not Applicable PATIENT PRESENTS WITH AN IMPLANTABLE OR ATTACHED CHIEF CREDIT OFFICER: No RADIOLOGY DEPARTMENT: CT; Exam(s) Completed: Chest Abdomen Pelvis PERIPHERAL IV DATA: Site assessment: Clean,Dry and Intact, Site disposition Discontinued SIGNED BY: RT Darius(Arslan) February 23, 2024 1:41 PM documented in this encounterAshtabula County [facility] Center03-15-2024 Instructions* Patient Instructions* Rima Kapoor - 11/17/2023 3:12 PM EDT RTC in [address] CAP with labs 1 week prior Continue follow up with GI Need most recent record [place] [facility] documented in this encounterAshtabula [facility] Center03-15-2024 History of Present illness Narrative* Jaya Bai MD - 11/17/2023 2:30 PM EDT Images from the original note were not included. NAME: Alessio Burns [facility] NO.: [id number] DATE OF SERVICE: November 17, 2023 (Zac) [...] 6-month gap between resection and presentation to [facility]. He remains at high risk because of [...] with GI Need most recent record from [facility] HPI: Case History: 11/10/2023 - CT Chest: There has been significant improvement in size and number of the previously identified multiple bilateral pulmonary nodules, as detailed above. Several subcentimeter mediastinal lymph nodes are againidentified, unchanged. No substantial intrathoracic adenopathy is identified. Aneurysmal dilation of the ascending thoracic aorta measuring approximately 4.7-4.8 cm, stable. 08/04/2023 - PET CT: No evidence of focal uptake to suggest FDG avid neoplastic process in the head/neck, abdomen/pelvis, or extremities/skeleton. Chest: Slight improvement in left upper lobe lung nodule. Other nodules below PET resolution stable. 05/30/2023 - [facility] tissue prominence at the santy bilaterally, stable. Borderlineaneurysmal enlargement of the ascending and mild dilation [...] likely related to respiratory bronchiolitis or other i nfectious/inflammatory etiologies, stable. Increased mild mucous plugging. A/P: No evidence of intra-abdominal/intrapelvic metastases. No interval change since 01/27/2021. Fat-containing right inguinal hernia. 04/22/2021 - Colonoscopy ([facility]): Large blanketing polyp ascending, removed with a hot snare in perianal fashion and retrieved. Largebroad based polyp transverse, removed with endoscopic mucosal resection using hot snare, retrieved,and tattooed. Two medium-sized sessile polyps, sigmoid, removed [...] comment. Malignant cells stain positive for lane cytokeratinfocal and p63 weak focal. Negative for neuroendocrine [...] It was recommended he follow up with [facility] for next imaging due to the [...] [facility] Results scanned to [facility] 06/04/2021 Updated Visit, February 05, 2021: Doing [...] colonoscopy. PATHOLOGY/MOLECULAR DATA 01/10/2022 Partial liver resection: [id number] Order: [id number] Collected 01/10/2022 11:56 AM Status: Final result [...] A3-A4 remainderof specimen. Gross examination performed at [facility], [facility] [facility] [address] CLIA# [id number] [facility] January 12, 2022 9:23 AM REVIEW [...] radiology test) CT Chest ABD/PEL-Inject, intravenously, once for1 dose.No IV access, insert saline lock prior [...] both Oral and Rectal, Enteric Tube, Stoma orIndwelling Catheter, Enteric Contrast as designated per enteric [...] which included preparing to see the patient, [id number] patient care, completing clinical documentation, performing a medically appropriate examination, counseling and educating the patient/family/caregiver, ordering medications, tests, or p rocedures, communicating with other HCPs (not separately reported), independently interpreting results (not separately reported), and communicating results to the patient/family/caregiver. Jaya Bai MD, CPE Hematology and Oncology Services Provided at: [place], [place] Scribe Attestation: This note was scribed by Rima Kapoor on November 17, 2023 under the direction and supervision ofDr. Jaya Bai. I attest that all of the information documented is correct to the best of my knowledge. Provider Attestation: I, Jaya Bai MD, attest that all information documented by the above scribe is correct, and was supervised by me and under my direction. CC: Shaikh Lowell [address] [place] [address] Maliha Lentz, DO Krzysztof Queen documented in this encounterAshtabula County Medical Center03-11-2024 Miscellaneous Notes* Telephone Encounter - Wilmer Rosas RN - 11/13/2023 8:51 AM EDT Pt informed of [employer]'s message and denies any questions, needs or concerns at this time. Appointment verified. Wilmer Rosas RN * Telephone Encounter - Wilmer Rosas RN - 11/13/2023 8:51 AM EDT ----- Message from Jaya Bai MD sent at 11/11/2023 9:37 AM EST ----- CT Scan looking better and better! documented in this encounterAshtabula County Medical Center03-08-2024 History of Present illness Narrative* Car Cohen RT(R) - 11/10/2023 12:45 PM EST Radiology Service Progress Note PATIENT NAME: Alessio Burns DATE OF SERVICE: November 10, 2023 TIME: 12:29 PM PATIENT IDENTITY VERIFICATION COMPLETED USING TWO (2) IDENTIFIERS: Name and Date of confirmedby patient verbally. FALL SCREENING: Has the patient had 2 falls in the last year or 1 fall with injury or currently using an Ambulatory Assistive Device (Walker, Cane, Wheelchair, Crutches, etc.)? No PATIENT GENDER DATA: Male PATIENT RELEVANT IMPLANT DATA REVIEWED: Not Applicable PATIENT PRESENTS WITH AN IMPLANTABLE OR ATTACHED CHIEF CREDIT OFFICER: No RADIOLOGY DEPARTMENT: CT; Exam(s) Completed: Chest PERIPHERAL IV DATA: Site assessment: Clean,Dry and Intact, Site disposition Discontinued SIGNED BY: RT Amy(R) November 10, 2023 12:29 PM * Chloe Ivey RN - 11/10/2023 12:45 PM EST Radiology Service Progress Note DATE OF SERVICE: [...] Value Ref Range Status 08/04/2023 75 >=60 mL/min/1.73m Final Comment: Estimated Glomerular Filtration Rate (eGFR) is calculated using the 2020 CKD-EPI creatinine equation. This equation utilizes serum creatinine, sex, and age as parameters. The creatinine assay has traceable calibration to isotope dilution- mass spectrometry. Refer to KDIGO guidelines for clinical interpretation. In patients with unstable renal function, e.g. those with acute kidney injury, the eGFRmay not accurately reflect actual GFR. eGFR- Date Value Ref Range Status 10/22/2021 >60 Final P.O.C.T. RESULTS: POC done: Yes, See Lab Tab November 10, 2023 TREATMENT: N/A IV SITE: Ambulatory: A peripheral IV was started in the Left antecubital site with a Angio cath: 20gauge. IV SITE APPEARANCE: Clean,Dry and Intact SIGNATURE: Chloe Ivey RN PATIENT NAME: Alessio Burns DATE: November 10, 2023 TIME: 12:34 PM documented in this encounterAshtabula County Medical Center03-08-2024 Miscellaneous Notes* Addendum Note - Chloe Ivey RN - 11/10/2023 12:45 PM ESTEncounter addended by: Chloe Ivey RN on: 11/10/2023 12:34 PM Actions taken: Clinical Note Signed documented in this encounterAshtabula County Medical Center03-08-2024 Note* Addendum Note - Chloe Ivey RN - 11/10/2023 12:45 PM ESTEncounter addended by: Chloe Ivey RN on: 11/10/2023 12:34 PM Actions taken: Clinical Note Signed [facility]12-15-2023 Miscellaneous Notes* Telephone Encounter - Livier Wolfe RN - 08/18/2023 11:17 AM EST Oanh from [facility] called and stated referral sent is missing pages. Oanh stated they were having fax issues. Please re-fax referral to them at fax: [phone] * Telephone Encounter - ZEESHAN Mccall - 08/18/2023 11:17 AM EST [facility]* Telephone Encounter - Livier Wolfe RN - 08/18/2023 11:17 AM EST Oanh from [facility] called and stated referral sent is missing pages. Oanh stated they were having fax issues. Please re-fax referral to them at fax: [phone] [facility]12-15-[facility] Telephone encounter Note* Telephone Encounter - ZEESHAN Mccall - 08/18/2023 11:17 AM EST Office note faxed to [facility] Freta.lá [id number] Evaluation note* Encounter Date Diagnosis Assessment Notes Treatment Notes Treatment Clinical Notes Aug, H. pylori infection (ICD-10 - A04.8) Pt states the omeprazole is working well for him. Pt states he is not having daily bowel movements. Pt advised to use miralax once a day if he is having trouble going. Repeat daily until he has a bowel movement. Pt to continue the omeprazole and add miralax with it. Pt RTO in 3 months [facility] 12-08-2023 Miscellaneous Notes* Telephone Encounter - Iliana Villarreal RN - 08/11/2023 4:40 PM EST Please refer to following encounter for details and follow up Iliana Villarreal RN * Telephone Encounter - Jaya Bai MD - 08/11/2023 4:35 PM EST Plenty of other options - dulcolax, miralax combo. * Telephone Encounter - Iliana Villarreal RN - 08/11/2023 3:21 PM EST Call received from Chiara @[facility] to inform that Mag citrate has been a backordered item for a while and not available. Would you like to order something else? FYI we do have 2 bottles here but pharmacy closes at 4 and [place] Advise Iliana Villarrela RN documented in this encounterAshtabula County Medical Center12-08-2023 Instructions* Patient Instructions* Ling Muhammad - 08/11/2023 2:58 PM EST Trial of magnesium citrate to clear out. Triage to call Monday. If no success, will order CT A/P. Labs and CT Chest in 3 months. RTC 1 week after labs and scan. documented in this encounterAshtabula County Medical Center12-08-2023 History of Present illness Narrative* Jaya Bai MD - 08/11/2023 2:40 PM EST Images from the original note were not included. NAME: Alessio Burns [facility] NO.: [id number] DATE OF SERVICE: August 11, 2023 (Zac) [...] 6-month gap between resection and presentation to va. He remains at high risk because of [...] It was recommended he follow up with [facility] for next imaging due to the [...] [facility] Results scanned to [facility] 06/04/2021 Updated Visit, February 05, 2021: Doing [...] colonoscopy. PATHOLOGY/MOLECULAR DATA 01/10/2022 Partial liver resection: [id number] Order: [id number] Collected 01/10/2022 11:56 AM Status: Final result [...] A3-A4 remainderof specimen. Gross examination performed at [facility], [address] [place] [address] CLIA# [id number] [facility] January 12, 2022 9:23 AM REVIEW [...] which included preparing to see the patient, [id number] patient care, completing clinical documentation, performing a medically appropriate examination, counseling and educating the patient/family/caregiver, ordering medications, tests, or p rocedures, communicating with other HCPs (not separately reported), independently interpreting results (not separately reported), and communicating results to the patient/family/caregiver. Jaya Bai MD, CPE Services Provided at: [facility], [place], [place] & [place], [place] Scribe Attestation: This note was scribed [...] direction. CC: Shaikh Lowell [address] [facility] [address] Maliha Lentz DO David Hykes documented in this encounterAshtabula County Medical Center12-01-2023 History of Present illness Narrative* Charla Godfrey, RT(R) - 08/04/2023 1:30 PM EST RADIOLOGY SERVICE PROGRESS NOTE SERVICE DATE: 08/04/2023 SERVICE TIME: 1:43 PM PATIENT IDENTITY VERIFICATION COMPLETED USING TWO (2) STANDARD IDENTIFIERS: Name and Date of confirmed by patient verbally POST EXAM PIV STATUS: Discontinued PROCEDURE TYPE: NM INJECT: PET/CT BODY SCAN. 10.8 mCi F18 FDG. No other medications given.. ADMINISTRATION TIME: 1326 PATIENT DISCHARGED TO: Ambulatory patient, left MD department area. A Diagnostic radioactive procedure has taken place, with no further precautions necessary other than routine body substance precautions. More information regarding radiation safety can be found usingthis link: [email or web address] 20Diagnostic%20Nuclear%20Medicine%[email or web address] SIGNATURE: RT Darius(R) PATIENT NAME: Alessio Burns DATE: August 04, 2023 TIME: 1:43 PM PAGER/CONTACT #: * Chloe Ivey RN - 08/04/2023 1:30 PM EST Radiology Service Progress Note DATE OF SERVICE: [...] Value Ref Range Status 04/28/2023 64 >=60 mL/min/1.73m Final Comment: Estimated Glomerular Filtration Rate (eGFR) is calculated using the 2020 CKD-EPI creatinine equation. This equation utilizes serum creatinine, sex, and age as parameters. The creatinine assay has traceable calibration to isotope dilution- mass spectrometry. Refer to KDIGO guidelines for clinical interpretation. In patients with unstable renal function, e.g. those with acute kidney injury, the eGFRmay not accurately reflect actual GFR. eGFR- Date Value Ref Range Status 10/22/2021 >60 Final P.O.C.T. RESULTS: N/A August 04, 2023 TREATMENT: N/A IV SITE: Ambulatory: A peripheral IV was started in the Left antecubital site with a Angio cath: 22gauge. IV SITE APPEARANCE: Clean,Dry and Intact SIGNATURE: Chloe Ivey RN PATIENT NAME: Alessio Burns DATE: August 04, 2023 TIME: 1:49 PM documented in this encounterAshtabula County Medical Center09-26-[address] [facility]09-18-2023 Miscellaneous Notes* Telephone Encounter - Karen Ugarte - 05/22/2023 1:25 PM EDT Called [facility] spoke with Gita. Patient is scheduled for EGD with Dr. Spring on 05/30. Karen Hernandez * Telephone Encounter - Karen Ugarte - 05/18/2023 10:44 AM EDT Called [facility] spoke with Jaylene. They have received this referral and their mission coordinator will be calling patient to get scheduled. Karen Hernandez * Telephone Encounter - Gale Mahoney - 05/16/2023 2:19 PM EDT Records faxed to [facility]. * Telephone Encounter - Karen Ugarte - 05/10/2023 8:30 AM EDT Katty: Information ready for you. Karen Hernandez * Telephone Encounter - AlexflorenceJasen - 05/05/2023 3:11 PM EDT Refer to GI for upper endoscopy for positive PET/CT Katty/Agustín: Can you please refer patient and follow up? He states he has seen Dr. Queen in the past but would prefer to stay locally still. Jasen Semon documented in this encounterAshtabula County Medical Center09-01-2023 Instructions* Patient Instructions* Jaya Bai MD - 05/05/2023 2:56 PM EDT Refer to GI for upper endoscopy for positive PET/CT Repeat PET in 3 months labs same day. documented in this encounterAshtabula County Medical Center09-01-2023 History of Present illness Narrative* Jaya Bai MD - 05/05/2023 2:36 PM EDT Images from the original note were not included. NAME: Alessio Burns [facility] NO.: [id number] [facility]: [facility] Some elements in this clinic [...] 6-month gap between resection and presentation to [facility]. He remains at high risk because of [...] [facility]) Results scanned to [facility] 06/04/2021 Updated Visit, February 05, 2021: Doing [...] 02, 2022 1. 01/10/2022 Partial liver resection: [id number] Order: [id number] Collected 01/10/2022 11:56 AM Status: Final result [...] A3-A4 remainderof specimen. Gross examination performed at [facility], [address] [place] [address] CLIA# [id number] [facility] January 12, 2022 9:23 AM REVIEW OF [...] which included preparing to see the patient, [id number] patient care, completing clinical documentation, performing a medically appropriate examination, counseling and educating the patient/family/caregiver, ordering medications, tests, or p rocedures, communicating with other HCPs (not separately reported), independently interpreting results (not separately reported), and communicating results to the patient/family/caregiver. Jaya Bai MD, CPE Services Provided at: [facility], [place], [place] & [place], [place] CC: Shaikh Lowell [address] [facility] [address] Maliha Lentz DO David Hykes documented in this encounterAshtabula County Medical Center08-25-2023 History of Present illness Narrative* Chloe Ivey RN - 04/28/2023 1:30 PM EDT Radiology Service Progress Note DATE OF SERVICE: [...] Value Ref Range Status 01/04/2023 80 >=60 mL/min/1.73m Final Comment: Estimated Glomerular Filtration Rate (eGFR) is calculated using the 2020 CKD-EPI creatinine equation. This equation utilizes serum creatinine, sex, and age as parameters. The creatinine assay has traceable calibration to isotope dilution- mass spectrometry. Refer to KDIGO guidelines for clinical interpretation. In patients with unstable renal function, e.g. those with acute kidney injury, the eGFRmay not accurately reflect actual GFR. eGFR- Date Value Ref Range Status 10/22/2021 >60 Final P.O.C.T. RESULTS: N/A April 28, 2023 TREATMENT: N/A IV SITE: Ambulatory: A peripheral IV was started in the Right antecubital site with a Angio cath: 22 gauge. IV SITE APPEARANCE: Clean,Dry and Intact SIGNATURE: Chloe Ivey RN PATIENT NAME: Alessio Burns DATE: April 28, 2023 TIME: 1:24 PM * Charla Godfrey RT(R) - 04/28/2023 1:30 PM EDT RADIOLOGY SERVICE PROGRESS NOTE SERVICE DATE: 04/28/2023 SERVICE TIME: 2:06 PM PATIENT IDENTITY VERIFICATION COMPLETED USING TWO (2) STANDARD IDENTIFIERS: Name and Date of confirmed by patient verbally POST EXAM PIV STATUS: Discontinued PROCEDURE TYPE: NM INJECT: PET/CT BODY SCAN. 10.8 mCi F18 FDG. No other medications given.. ADMINISTRATION TIME: 1317 PATIENT DISCHARGED TO: Ambulatory patient, left MD department area. A Diagnostic radioactive procedure has taken place, with no further precautions necessary other than routine body substance precautions. More information regarding radiation safety can be found usingthis link: [email or web address] 20Diagnostic%20Nuclear%20Medicine%[email or web address] SIGNATURE: RT Darius(Arslan) PATIENT NAME: Alessio Burns DATE: April 28, 2023 TIME: 2:06 PM PAGER/CONTACT #: documented in this encounterAshtabula County Medical Center06-30-2023 Instructions* Patient Instructions* Jaya Bia MD - 03/03/2023 2:21 PM EDT PET/CT in 8 weeks and return after to review. documented in this encounterCleveland [id number] History of Present illness Narrative* Jaya Bai MD - 03/03/2023 2:09 PM EDT Images from the original note were not included. NAME: Alessio Burns [facility] NO.: [id number] DATE OF SERVICE: March 03, 2023 (Zac) Some elements in this clinic note that are critical to medical decision making have been carefully reviewed and included from a prior clinic note dated: January 04, 2023 (Zac) Referring Provider: Dr. Shaikh Etienne Additional Clinicians involved in Alessio Burns's care: Maliha Lentz, CC: lung cancer ASSESSMENT: 73 year old [...] 6-month gap between resection and presentation to va. He remains at high risk because of [...] [facility]) Results scanned to [facility] 06/04/2021 Updated Visit, February 05, 2021: Doing [...] 02, 2022 1. 01/10/2022 Partial liver resection: [id number] Order: [id number] Collected 01/10/2022 11:56 AM Status: Final result [...] A3-A4 remainderof specimen. Gross examination performed at [facility], [address] [place] [address] CLIA# [id number] [facility] January 12, 2022 9:23 AM REVIEW [...] which included preparing to see the patient, [id number] patient care, completing clinical documentation, performing a medically appropriate examination, counseling and educating the patient/family/caregiver, ordering medications, tests, or p rocedures, communicating with other HCPs (not separately reported), independently interpreting results (not separately reported), and communicating results to the patient/family/caregiver. Jaya Bai MD, CPE Services Provided at: [place], [place] & [place], [place] CC: Shaikh Lowell [address] [facility] [address] Maliha Lentz DO David Hykes documented in this encounterAshtabula County Medical Center06-20-2023 History of Present illness Narrative* Wilmer Rosas RN - 02/21/2023 10:45 AM EDT Radiology Service Progress Note DATE OF SERVICE: [...] Value Ref Range Status 01/04/2023 80 >=60 mL/min/1.73m Final Comment: Estimated Glomerular Filtration Rate (eGFR) is calculated using the 2020 CKD-EPI creatinine equation. This equation utilizes serum creatinine, sex, and age as parameters. The creatinine assay has traceable calibration to isotope dilution- mass spectrometry. Refer to KDIGO guidelines for clinical interpretation. In patients with unstable renal function, e.g. those with acute kidney injury, the eGFRmay not accurately reflect actual GFR. eGFR- Date Value Ref Range Status 10/22/2021 >60 Final P.O.C.T. RESULTS: POC done: Yes, See Lab Tab February 21, 2023 TREATMENT: No Hydration needed. IV SITE: Ambulatory: A peripheral IV was started in the Right hand with a Angio cath: 22 gauge. IV SITE APPEARANCE: Clean,Dry and Intact SIGNATURE: Wilmer Rosas RN PATIENT NAME: Alessio Burns DATE: February 21, 2023 TIME: 10:44 AM * Charla Godfrey, RT(R) - 02/21/2023 10:45 AM EDT RADIOLOGY SERVICE PROGRESS NOTE SERVICE DATE: 02/21/2023 SERVICE TIME: 10:46 AM PATIENT IDENTITY VERIFICATION COMPLETED USING TWO (2) STANDARD IDENTIFIERS: Name and Date of confirmed by patient verbally POST EXAM PIV STATUS: Discontinued PROCEDURE TYPE: NM INJECT: PET/CT BODY SCAN. 10.4 mCi F18 FDG. No other medications given.. ADMINISTRATION TIME: 1041 PATIENT DISCHARGED TO: Ambulatory patient, left MD department area. A Diagnostic radioactive procedure has taken place, with no further precautions necessary other than routine body substance precautions. More information regarding radiation safety can be found usingthis link: [email or web address] 20Diagnostic%20Nuclear%20Medicine%[email or web address] SIGNATURE: RT Darius(R) PATIENT NAME: Alessio Burns DATE: February 21, 2023 TIME: 10:46 AM PAGER/CONTACT #: documented in this encounterAshtabula County Medical Center05-03-2023 Instructions* Patient Instructions* Jaya Bai MD - 01/04/2023 2:40 PM EDT 1. Call with CT results documented in this encounterAshtabula County Medical Center05-03-2023 History of Present illness Narrative* Jaya Bai MD - 01/04/2023 1:59 PM EDT Images from the original note were not included. NAME: Alessio Burns CLINIC NO.: [id number] [facility]ICE: [facility] Some elements in this clinic [...] [facility] Results scanned to [facility] 06/04/2021 Updated Visit, February 05, 2021: Doing [...] 02, 2022 1. 01/10/2022 Partial liver resection: [id number] Order: [id number] Collected 01/10/2022 11:56 AM Status: Final result [...] A3-A4 remainderof specimen. Gross examination performed at [facility], [address] [place] [address] CLIA# [id number] [facility] January 12, 2022 9:23 AM REVIEW [...] which included preparing to see the patient, [id number]-[id number] patient care, completing clinical documentation, performing a medically appropriate examination, counseling and educating the patient/family/caregiver, ordering medications, tests, or p rocedures, communicating with other HCPs (not separately reported), independently interpreting results (not separately reported), and communicating results to the patient/family/caregiver. Jaya Bai MD, CPE Services Provided at: [place], [place] & [place], [place] CC: Shaikh Lowell [address] [facility] [address] Maliha Lentz DO David Hykes documented in this encounterAshtabula County Medical Center05-03-2023 History of Present illness Narrative* Charla Godfrey, RT(R) - 01/04/2023 12:15 PM EDT Radiology Service Progress Note PATIENT NAME: Alessio Burns DATE OF SERVICE: January 04, 2023 TIME: 12:36 PM PATIENT IDENTITY VERIFICATION COMPLETED USING TWO (2) IDENTIFIERS: Name and Date of confirmedby patient verbally. FALL SCREENING: Has the patient [...] Site disposition Discontinued SIGNED BY: RT Darius(R) January 04, 2023 12:36 PM * Cinthya Dickens RN - 01/04/2023 12:15 PM EDT Radiology Service Progress Note DATE OF SERVICE: [...] Patient age > 60 years and Congestive HeartFailure (CHF) CREATININE: Creatinine Date Value Ref Range Status 01/04/2023 1.01 0.73 - 1.22 mg/dL Final 10/07/2022 1.12 0.73 - 1.22 mg/dL Final 09/15/2022 1.07 0.73 - 1.22 mg/dL Final Estimated Glomerular Filtration Rate Date Value Ref Range Status 01/04/2023 80 >=60 mL/min/1.73m Final Comment: Estimated Glomerular Filtration Rate (eGFR) is calculated using the 2020 CKD-EPI creatinine equation. This equation utilizes serum creatinine, sex, and age as parameters. The creatinine assay has traceable calibration to isotope dilution- mass spectrometry. Refer to KDIGO guidelines for clinical interpretation. In patients with unstable renal function, e.g. those with acute kidney injury, the eGFRmay not accurately reflect actual GFR. eGFR- Date [...] Burns DATE: January 04, 2023 TIME: 1:01 PM documented in this encounterAshtabula County Medical Center03-22-2023 Miscellaneous Notes* Telephone Encounter - Karen Sanchez Pss - 11/23/2022 9:[address] Lentz office spoke with Russel. He states they have received this referral and have patient scheduled with Dr Lentz at their [place] office on 02/02 @ 2:30. Karen Sanchez Pss * Telephone Encounter - Gale Pereira [facility] - 11/22/2022 1:14 PM EDT Records faxed to Dr. Lentz. Electronically signed by Gale Pereira [facility] at 11/22/2022 1:14 PM EDT * Telephone Encounter - Judy Fortune Sec - 11/22/2022 11:29 AM EDT Patient called back states he is sorry he forgot and did r/s to requestd dates thank you * Telephone Encounter - Judy Fortune Sec - 11/22/2022 10:53 AM EDT Images from the original note were not included. Jaya Bai MD P [facility] Clerical Pool Follow-up with Dr. Fatou Lentz for BAL and cultures in [place]. Please include pathology reports from 2020 for [...] records to [facility] thanks! documented in this encounterAshtabula County Medical Center03-21-2023 Instructions* Patient Instructions* Jaya Bai MD - 11/22/2022 10:39 AM EDT Follow-up with Dr. Fatou Lentz for BAL and cultures in [place]. Please include pathology reports from 2020 for her to review. (Scanned on 01/12/2021) Cancel CT and visit with for tomorrow and reschedule them to 6 weeks further out please. documented in this encounterAshtabula County Medical Center03-21-2023 History of Present illness Narrative* Jaya Bai [...] Fatou Lentz for BAL and cultures in [place]. Please include pathology reports from 2020 for her to review. (Scanned on 01/12/2021) Cancel CT and visit with for tomorrow and reschedule them to 6 weeks further out please. Total Time Spent: 25 minutes Jaya Bai MD CC: Maliha Lentz documented in this encounterAshtabula County Medical Center02-28-2023 Miscellaneous Notes* Telephone Encounter - Gale Pereira [facility] - 11/01/2022 1:22 PM EST Updated notes and scans faxed to Dr. Lentz. Electronically signed by Gale Pereira [facility] at 11/01/2022 1:22 PM EST documented in this encounterAshtabula County Medical Center02-14-2023 Instructions* Patient Instructions* Jaya Bai MD - 10/18/2022 6:12 PM EST Keep plans for CT's in 8 weeks as scheduled and follow up with me in November afterwards. documented in this encounterAshtabula County Medical Center02-03-2023 History of Present illness Narrative* Jaya Bai MD - 10/07/2022 3:38 PM EST Images from the original note were not included. NAME: Alessio Burns [facility] NO.: [id number] DATE OF SERVICE: October 07, 2022 (Zac) Some elements in this clinic note that are critical to medical decision making have been carefully reviewed and included from a prior clinic note dated: September 15, 2022 (Johnathonrobert) Referring Provider: Dr. Shaikh Etienne Additional Clinicians [...] 6-month gap between resection and presentation to va. He remains at high risk because of [...] [facility]) Results scanned to [facility] 06/04/2021 Updated Visit, February 05, 2021: Doing [...] 02, 2022 1. 01/10/2022 Partial liver resection: [id number] Order: [id number] Collected 01/10/2022 11:56 AM Status: Final result [...] A3-A4 remainderof specimen. Gross examination performed at [facility], [address] [place] [address] CLIA# [id number] [facility] January 12, 2022 9:23 AM REVIEW [...] which included preparing to see the patient, [id number] patient care, completing clinical documentation, performing a medically appropriate examination, counseling and educating the patient/family/caregiver, ordering medications, tests, or p rocedures, communicating with other HCPs (not separately reported), independently interpreting results (not separately reported), and communicating results to the patient/family/caregiver. Jaya Bai MD, CPE Services Provided at: [place], [place] & [place], [place] CC: Shaikh Lowell [address] [facility] [address] Maliha Lentz, DO [address] [place] [address] Krzysztof Queen documented in this encounterAshtabula County Medical Center01-27-2023 History of Present illness Narrative* Cinthya Dickens RN - 09/30/2022 12:15 PM EST Radiology Service Progress Note DATE OF SERVICE: [...] Value Ref Range Status 09/15/2022 74 >=60 mL/min/1.73m Final Comment: Estimated Glomerular Filtration Rate (eGFR) is calculated using the 2020 CKD-EPI creatinine equation. This equation utilizes serum creatinine, sex, and age as parameters. The creatinine assay has traceable calibration to isotope dilution- mass spectrometry. Refer to KDIGO guidelines for clinical interpretation. In patients with unstable renal function, e.g. those with acute kidney injury, the eGFRmay not accurately reflect actual GFR. eGFR- Date [...] Burns DATE: September 30, 2022 TIME: 12:15 PM * Charla Godfrey RT(R) - 09/30/2022 12:15 PM EST RADIOLOGY SERVICE PROGRESS NOTE SERVICE DATE: 09/30/2022 SERVICE TIME: 12:53 PM PATIENT IDENTITY VERIFICATION COMPLETED USING TWO (2) STANDARD IDENTIFIERS: Name and Date of confirmed by patient verbally POST EXAM PIV STATUS: Discontinued PROCEDURE TYPE: NM INJECT: PET/CT BODY SCAN. 10.8 mCi F18 FDG. No other medications given.. ADMINISTRATION TIME: 1225 PATIENT DISCHARGED TO: Ambulatory patient, left MD department area. A Diagnostic radioactive procedure has taken place, with no further precautions necessary other than routine body substance precautions. More information regarding radiation safety can be found usingthis link: [email or web address] [email or web address]%[email or web address] SIGNATURE: RT Darius(R) PATIENT NAME: Alessio Burns DATE: September 30, 2022 TIME: 12:53 PM PAGER/CONTACT #: documented in this encounterAshtabula County Medical Center01-16-2023 Miscellaneous Notes* Telephone Encounter - Evangelina Sim RN - 09/19/2022 10:42 AM EST Handled in another encounter. Evangelina Sim RN * Telephone Encounter - Evangelina Sim RN - 09/19/2022 10:38 AM EST Images from the original note were not included. MD Evangelina Prabhakar RN; P [facility] Clerical Pool Mario Alberto Hutchinson - can you please call him and tell him that the multiple lesions in his lungs are too small to biopsy by bronchoscopy or by CT guidance, so we will get a baseline PET/CT soon and continue CTscans - next one in 8 weeks documented in this encounterAshtabula County Medical Center01-16-2023 Miscellaneous Notes* Telephone Encounter - Jasen Laughlin - 09/19/2022 9:48 AM EST Patient has been scheduled for 09/30. Patient has been notified. Jasen Laughlin * Telephone Encounter - Charla Jama RN - 09/19/2022 8:06 AM EST Clerical: PET orders placed. Please schedule. Thanks! Charla Jama RN * Telephone Encounter - Jaya Bai MD - 09/16/2022 5:18 PM EST Thanks Riley - I had a feeling that was the case - I'll get a PET as some of his nodules have grown to over 8 mm now - I'll get the PET and then figure out the path forward. Always appreciate your help! * Telephone Encounter - Jasen Laughlin - 09/16/2022 9:10 AM EST Images [...] proceed. Riley Carter * Telephone Encounter - Jasen Laughlin - 09/15/2022 3:00 PM EST CONSULT TO PULMONARY MEDICINE Per Dr. Bai: Persisting and numerous pulmonary nodules with history of lung cancer prior right lobectomy - have order PET but will likely need tissue sampling regadless. Thanks Team! Jasen Laughlin documented in this encounterAshtabula County Medical Center01-13-2023 Miscellaneous Notes* Telephone Encounter - Jasen Laughlin - 09/16/2022 9:15 AM EST Patient has been scheduled for PET scan on 09/30. Patient notified. Jasen Laughlin * Telephone Encounter - Charla Jama RN - 09/16/2022 9:08 AM EST Pt notified and verbalizes understanding. Agrees to PET scan. Clerical: Please schedule and call pt w/ the appointment. Charla Jama RN * Telephone Encounter - Jaya [...] place bronchoscopic biopsy. * Telephone Encounter - Jasen Laughlin - 09/15/2022 5:03 PM EST PET/CT in the next 2 weeks Patient thought it was decided this was being put on hold for now. Did you still want patient scheduled for PET? Jasen Laughlin documented in this encounterAshtabula County Medical Center01-12-2023 History of Present illness Narrative* Cinthya Dickens RN - 09/15/2022 1:30 PM EST Radiology Service Progress Note DATE OF SERVICE: [...] Value Ref Range Status 09/15/2022 74 >=60 mL/min/1.73m Final Comment: Estimated Glomerular Filtration Rate (eGFR) is calculated using the 2020 CKD-EPI creatinine equation. This equation utilizes serum creatinine, sex, and age as parameters. The creatinine assay has traceable calibration to isotope dilution- mass spectrometry. Refer to KDIGO guidelines for clinical interpretation. In patients with unstable renal function, e.g. those with acute kidney injury, the eGFRmay not accurately reflect actual GFR. eGFR- Date [...] Burns DATE: September 15, 2022 TIME: 1:34 PM * Charla Godfrey RT(R) - 09/15/2022 1:30 PM EST Radiology Service Progress Note PATIENT NAME: Alessio Burns DATE OF SERVICE: September 15, 2022 TIME: 1:35 PM PATIENT IDENTITY VERIFICATION COMPLETED USING TWO (2) IDENTIFIERS: Name and Date of confirmedby patient verbally. FALL SCREENING: Has the patient had 2 falls in the last year or 1 fall with injury or currently using an Ambulatory Assistive Device (Walker, Cane, Wheelchair, Crutches, etc.)? No PATIENT GENDER DATA: Male PATIENT RELEVANT IMPLANT DATA REVIEWED: Not Applicable RADIOLOGY DEPARTMENT: CT; Exam(s) Completed: Chest PERIPHERAL IV DATA: Site assessment: Clean,Dry and Intact, Site disposition Discontinued SIGNED BY: Charla Godfrey RT(R) September 15, 2022 1:35 PM documented in this encounterAshtabula County Medical Center11-17-2022 Instructions* Patient Instructions* Jaya Bai MD - 07/21/2022 2:[address] chest in 8 weeks Labs same day RTC same day after scan documented in this encounterAshtabula County Medical Center11-17-2022 History of Present illness Narrative* Jaya Bai MD - 07/21/2022 1:45 PM EST Images from the original note were not included. NAME: Alessio Burns [facility] NO.: [id number] DATE OF SERVICE: July 21, 2022 (Zac) [...] 6-month gap between resection and presentation to va. He remains at high risk because of [...] [facility]) Results scanned to [facility] 06/04/2021 Updated Visit, February 05, 2021: Doing [...] 02, 2022 1. 01/10/2022 Partial liver resection: [id number] Order: [id number] Collected 01/10/2022 11:56 AM Status: Final result [...] A3-A4 remainderof specimen. Gross examination performed at [facility], [address] [place] [address] CLIA# [id number] [facility] January 12, 2022 9:23 AM REVIEW [...] which included preparing to see the patient, [id number] patient care, completing clinical documentation, performing a medically appropriate examination, counseling and educating the patient/family/caregiver, ordering medications, tests, or p rocedures, and independently interpreting results (not separately reported). Jaya Bai MD, CPE Services Provided at: [place], [place] & [place], [place] CC: Shaikh Lowell [address] [facility] [address] Maliha Lentz, DO [address] [address] Krzysztof Queen documented in this encounterAshtabula [facility] Center11-10-2022 History of Present illness Narrative* Charla Godfrey, RT(R) - 07/14/2022 1:30 PM EST RADIOLOGY SERVICE PROGRESS NOTE SERVICE DATE: 07/14/2022 SERVICE TIME: 2:37 PM PATIENT IDENTITY VERIFICATION COMPLETED USING TWO (2) STANDARD IDENTIFIERS: Name and Date of confirmed by patient verbally FALL SCREENING: Has the patient had 2 falls in the last year or 1 fall with injury or currently using an Ambulatory Assistive Device (Walker, Cane, Wheelchair, Crutches, etc.)? No PATIENT GENDER DATA: .male ALLERGIES: Reviewed and unchanged MEDICATIONS REVIEWED: Not applicable PATIENT RELEVANT IMPLANT DATA REVIEWED: Not Applicable CREATININE: Creatinine Date Value Ref Range Status 07/14/2022 0.99 0.73 - 1.22 mg/dL Final 03/31/2022 1.02 0.73 - 1.22 mg/dL Final 01/05/2022 0.90 0.73 - 1.22 mg/dL Final Estimated Glomerular Filtration Rate Date Value Ref Range Status 07/14/2022 81 >=60 mL/min/1.73m Final Comment: Estimated Glomerular Filtration Rate (eGFR) is calculated using the 2020 CKD-EPI creatinine equation. This equation utilizes serum creatinine, sex, and age as parameters. The creatinine assay has traceable calibration to isotope dilution- mass spectrometry. Refer to KDIGO guidelines for clinical interpretation. In patients with unstable renal function, e.g. those with acute kidney injury, the eGFRmay not accurately reflect actual GFR. eGFR- Date Value Ref Range Status 10/22/2021 >60 Final P.O.C.T. RESULTS: N/A July 14, [address] PERFORMED: Yes. RADIOLOGIST NOTIFIED?: No CONTRAST ALLERGY: NO. PREMEDICATED: No CONTRAST: IV 50 ml IV contrast (300) given DIABETIC PATIENT: Not applicable IV SITE: Ambulatory: A peripheral IV was started in the Right antecubital site with a Angio cath: 20 gauge. POST EXAM PIV STATUS: Discontinued PROCEDURE TYPE: CT Chest with contrast PATIENT DISCHARGED TO: Ambulatory patient, left MD department area. A Diagnostic radioactive procedure has taken place, with no further precautions necessary other than routine body substance precautions. More information regarding radiation safety can be found usingthis link: [email or web address] 20Diagnostic%20Nuclear%20Medicine%[email or web address] SIGNATURE: RT Darius(R) PATIENT NAME: Alessio Burns DATE: July 14, 2022 TIME: 2:37 PM PAGER/CONTACT #: documented in this encounterAshtabula [facility] Center08-01-2022 Miscellaneous Notes* Telephone Encounter - Evangelina Sim [...] results. Evangelina Sim RN documented in this encounterAshtabula County Medical Center07-28-2022 History of Present illness Narrative* Jaya Bai MD - 03/31/2022 1:30 PM EDT Images from the original note were not included. NAME: Alessio Burns [facility] NO.: [id number] DATE OF SERVICE: March 31, 2022 Some [...] [facility] Results scanned to [facility] 06/04/2021 Updated Visit, February 05, 2021: Doing [...] 02, 2022 1. 01/10/2022 Partial liver resection: [id number] Order: [id number] Collected 01/10/2022 11:56 AM Status: Final result [...] A4 remainderof specimen. Gross examination performed at [facility], [address] [place] [address] CLIA# [id number] [facility] January 12, 2022 9:23 AM REVIEW OF [...] which included preparing to see the patient, [id number] patient care, completing clinical documentation, performing a medically appropriate examination, counseling and educating the patient/family/caregiver and ordering medications, tests, or procedures. Jaya Bai MD, CPE Services Provided at: [place], [place] & [place], [place] CC: Shaikh Lowell [address] [facility] [address] Krzysztof Queen documented in this encounterAshtabula County Medical Center07-28-2022 History of Present illness Narrative* Charla Godfrey, RT(R) - 03/31/2022 12:45 PM EDT RADIOLOGY SERVICE PROGRESS NOTE SERVICE DATE: 03/31/2022 SERVICE TIME: 1:49 PM PATIENT IDENTITY VERIFICATION COMPLETED USING TWO (2) STANDARD IDENTIFIERS: Name and Date of confirmed by patient verbally FALL SCREENING: Has the patient had 2 falls in the last year or 1 fall with injury or currently using an Ambulatory Assistive Device (Walker, Cane, Wheelchair, Crutches, etc.)? No PATIENT GENDER DATA: .male ALLERGIES: Reviewed and unchanged MEDICATIONS REVIEWED: Not applicable PATIENT RELEVANT IMPLANT DATA REVIEWED: Not Applicable CREATININE: Creatinine Date Value Ref Range Status 03/31/2022 1.02 0.73 - 1.22 mg/dL Final 01/05/2022 0.90 0.73 - 1.22 mg/dL Final 12/10/2021 0.88 0.73 - 1.22 mg/dL Final Estimated Glomerular Filtration Rate Date Value Ref Range Status 03/31/2022 79 >=60 mL/min/1.73m Final Comment: Estimated Glomerular Filtration Rate (eGFR) is calculated using the 2020 CKD-EPI creatinine equation. This equation utilizes serum creatinine, sex, and age as parameters. The creatinine assay has traceable calibration to isotope dilution- mass spectrometry. Refer to KDIGO guidelines for clinical interpretation. In patients with unstable renal function, e.g. those with acute kidney injury, the eGFRmay not accurately reflect actual GFR. eGFR- Date Value Ref Range Status 10/22/2021 >60 Final P.O.C.T. RESULTS: N/A March 31, [address] PERFORMED: Yes. RADIOLOGIST NOTIFIED?: No CONTRAST ALLERGY: NO. PREMEDICATED: No CONTRAST: IV 50 ml IV contrast (300) given DIABETIC PATIENT: Not applicable IV SITE: Ambulatory: A peripheral IV was started in the Right antecubital site with a Angio cath: 20 gauge. POST EXAM PIV STATUS: Discontinued PROCEDURE TYPE: CT Chest with contrast PATIENT DISCHARGED TO: Ambulatory patient, left MD department area. A Diagnostic radioactive procedure has taken place, with no further precautions necessary other than routine body substance precautions. More information regarding radiation safety can be found usingthis link: [email or web address] 20Diagnostic%20Nuclear%20Medicine%[email or web address] SIGNATURE: RT Darius(Arslan) PATIENT NAME: Alessio Burns DATE: March 31, 2022 TIME: 1:49 PM PAGER/CONTACT #: documented in this encounterAshtabula County Medical Center06-29-2022 History of Present illness Narrative* Jaya Bai MD - 03/02/2022 5:49 PM EDT Images from the original note were not included. NAME: Alessio Burns [facility] NO.: [id number] DATE OF SERVICE: March 02, 2022 Some [...] [facility] Results scanned to [facility] 06/04/2021 Updated Visit, February 05, 2021: Doing [...] 02, 2022 1. 01/10/2022 Partial liver resection: [id number] Order: [id number] Collected 01/10/2022 11:56 AM Status: Final result [...] A4 remainderof specimen. Gross examination performed at [facility], [address] [place] [address] CLIA# [id number] [facility] January 12, 2022 9:23 AM HISTORY [...] Jaya Bai MD, CPE Services Provided at: [place], [place] & [place], [place] CC: Shaikh Lowell [address] [facility] [address] Krzysztof naga documented in this encounterAshtabula County Medical Center06-29-2022 Nurse Note* Deepti Thakkar - 03/02/2022 9:07 AM EDT Clinical questionnaires incomplete due to Patient was roomed by provider. Phone visit Deepti Thakkar documented in this encounterAshtabula County Medical Center06-28-2022 Miscellaneous Notes* Telephone Encounter - Jasen Laughlin - 03/01/2022 9:01 AM EDT Images from the original note were not included. Call placed to patient -- He has been scheduled for phone follow up tomorrow, 03/02. MD Jasen Kaur; Charla Jama RN [facility]! Looks like we [...] To: Bj Mota MD documented in this encounterAshtabula County Medical Center05-09-2022 NoteHNO ID: [id number] Author: Rosalino Cummings APRN.[employer] Service: Anesthesiology Author Type: Nurse Sheeter Waxer Operator Type: Anesthesia Procedure Notes Filed: 01/10/2022 11:32 AM Note Text: ANESTHESIOLOGY PROCEDURE NOTE A-Line General Information Procedure Start Time/Medication Administration: 01/10/2022 11:02 AM Patient location during procedure: OR Timeout Performed Pre-procedure: timeout performed Consent Obtained: Yes Indication: continuous blood pressure monitoring Staffing Anesthesiologist: Alena Mortensen MD [employer]: Rosalino Cummings APRN.[employer] Performed by: ENRIQUE Preparation Sterility Preparation: hand [...] January 10, 2022 TIME: 11:31 AM CSN: [id number] NoteHNO ID: [id number] Author: Rosalino Cummings APRN.CRNA Service: Anesthesiology Author Type: Nurse Sheeter Waxer Operator Type: Anesthesia Procedure Notes Filed: 01/10/2022 11:30 AM Note Text: ANESTHESIOLOGY PROCEDURE NOTE PIV General Information Procedure Start Time/Medication Administration: 01/10/2022 11:20 AM Patient Location: OR Staffing [employer]: Rosalino Cummings APRN.[employer] Performed by: ENRIQUE Preparation Sterility Preparation: hand [...] January 10, 2022 TIME: 11:30 AM CSN: [id number] NoteHNO ID: [id number] Author: Rosalino Cummings APRN.CRNA Service: Anesthesiology Author Type: Nurse Sheeter Waxer Operator Type: Anesthesia Procedure Notes Filed: 01/10/2022 11:28 AM Note Text: ANESTHESIOLOGY PROCEDURE NOTE Airway General Information Procedure Start Time/Medication Administration: 01/10/2022 11:07 AM Patient location during procedure: OR Timeout Performed Pre-procedure: timeout performed Consent Obtained: Yes Patient identity confirmed: arm band and care boarder steam Staffing Anesthesiologist: Alena Mortensen MD [employer]: Rosalino Cummings APRN.[employer] Performed by: ENRIQUE Indications and Patient Condition [...] 1 Airway not difficult SIGNATURE: Rosalino Cummings APRN.CRNA PATIENT NAME: Alessio Burns DATE: January 10, 2022 TIME: 11:27 AM CSN: [id number] History of Present illness Narrative* Bj Mota [...] lobectomy 09/24/2020 (Path: [id number]), thoracic aneurysm, CAD, [place], emergent AVR and CABG 06/2020 (current Plavix/asa), [...] minutes Bj Mota MD documented in this encounterAshtabula County Medical Center05-04-2022 Nurse Note* Dolly Ramírez LPN - 01/05/2022 11:10 AM EDT Letter per Delia Jeffries CNP faxed to DR Ambrosio cardiology, as requested, re:Thinner guidance. Confirmation rcd. documented in this encounterAshtabula County Medical Center05-04-2022 Instructions* Patient Instructions* Delia Jeffries APRN.CNP - 01/05/2022 9:50 AM EDT PATIENT PREOPERATIVE INSTRUCTIONS Bj Mota MD has scheduled you for your procedure at this surgery center: [facility]: [phone] --[id number] [address]. Please check in on the1st floor at [...] or other anticoagulants without consulting with your senior computer specialist or prescribing physician. - Stop Vitamin E, [...] Procedures: - YOU MUST HAVE A RESPONSIBLE MILL OPERATOR TAKE YOU HOME. A ACCOUNT MANAGEMENT ASSISTANT OR SOA ENGINEER CANNOT BE MADE A RESPONSIBLE MILL OPERATOR. - We recommend that a responsible person [...] Advance Directive, please fax a copy to [phone] or email to for it to be [...] your chart that day. documented in this encounterAshtabula County Medical Center05-04-2022 History and physical note * Delia Jeffries [...] fevers. Neuro: No history of TIA's, stroke, INFORMATION BROKER tumor, impaired sensorium, hemiplegia, paraplegia or quadraplegia. No neurological symptoms or problems. Respiratory: Positive for Moderate COPD, Tobacco Use 1 ppd, Negative for Current cough, Home O2 Cardiovascular: Positive for: Anticoagulation therapy, CAD; Last Office Visit: 10/2021, CHF, HLD, Hypertension, [place], Open heart 2019, Valve surgery 2019, Negative [...] 40 years COPD (chronic obstructive pulmonary disease) (HCC) Assessment: managed with inhalers, stable HLD (hyperlipidemia) [...] and aspirin guidance. Patient instructed to call senior computer specialist for answer regarding medications CONSULTS: Patient does [...] 2022 TIME: 9:41 AM documented in this encounterAshtabula County Medical Center04-15-2022 History of Present illness Narrative* Jaya Bai MD - 12/17/2021 4:29 PM EDT Images from the original note were not included. NAME: Alessio Burns [facility] NO.: [id number] DATE OF SERVICE: December 17, 2021 Some [...] a nebulizer PLAN: 1. Please sed to [place] or [place] for image guided liver Biopsy. 2. Call [...] [facility]) Results scanned to [facility] 06/04/2021 Updated Visit, February 05, 2021: Doing [...] Jaya Bai MD, CPE Services Provided at: [facility], [place], [place] & [place], [place] CC: Shaikh Lowell [address] [facility] [address] Krzysztof Queen documented in this encounterAshtabula County Medical Center04-08-2022 History of Present illness Narrative* Wilmer Rosas RN - 12/10/2021 1:15 PM EDT Radiology Service Progress Note DATE OF SERVICE: December 10, 2021 TIME: 1:13 PM PATIENT WEIGHT: 175 LBS PATIENT IDENTITY VERIFICATION COMPLETED USING TWO [...] any recent Nephrotoxic Chemotherapy or other Nephrotoxic medications and Congestive Heart Failure (CHF) CREATININE: Creatinine Date Value Ref Range Status 10/22/2021 0.84 0.73 - 1.22 mg/dL Final 06/07/2021 0.92 0.73 - 1.22 mg/dL Final 01/27/2021 0.85 0.73 - 1.22 mg/dL Final eGFR-All Other Races Date Value Ref Range Status 10/22/2021 >60 . Final Comment: eGFR (Estimated GFR) Units of measure: mL/min/1.73 meters squared eGFR is derived from the reexpressed MDRD Study equation using the following parameters: serum creatinine, age, gender and race. The creatinine assay has been calibrated to be traceable to IDMS. An eGFR <60 mL/min/1.73m2 for >3 months is consistent with chronic kidney disease. Refer to KDOQI guidelines for clinical interpretation. In patients with unstable renal function, e.g. those with acute kidney injury, the eGFR may not accurately reflect actual GFR. Note: On 10/30/2021, the eGFR calculation will be updated to the NKF-ASN Task Force recommended 2020 CKD-EPI creatinine equation which does not include a race variable. For more information or to access a 2020 CKD-EPI calculator, visit the National Kidney Foundation website at kidney.org/professionals/kdoqi/gfr_calculator. eGFR- Date Value Ref Range Status 10/22/2021 >60 Final P.O.C.T. RESULTS: POC done: Yes, See Lab Tab December 10, 2021 TREATMENT: No Hydration needed. IV SITE: Ambulatory: A peripheral IV was started in the Right antecubital site with a Angio cath: 20 gauge. IV SITE APPEARANCE: Clean,Dry and Intact SIGNATURE: Wilmer Rosas RN PATIENT NAME: Alessio Burns DATE: December 10, 2021 TIME: 1:13 PM * Charla Godfrey RT(R) - 12/10/2021 1:15 PM EDT Radiology Service Progress Note PATIENT NAME: Alessio Burns DATE OF SERVICE: December 10, 2021 TIME: 2:36 PM PATIENT IDENTITY VERIFICATION COMPLETED USING TWO (2) IDENTIFIERS: Name and Date of confirmedby patient verbally. FALL SCREENING: Has the patient had 2 falls in the last year or 1 fall with injury or currently using an Ambulatory Assistive Device (Walker, Cane, Wheelchair, Crutches, etc.)? No PATIENT GENDER DATA: Male PATIENT RELEVANT IMPLANT DATA REVIEWED: Not Applicable RADIOLOGY DEPARTMENT: CT; Exam(s) Completed: Liver and Pelvis PERIPHERAL IV DATA: Site assessment: Clean,Dry and Intact, Site disposition Discontinued SIGNED BY: RT Darius(Arslan) December 10, 2021 2:36 PM documented in this encounterAshtabula County Medical Center02-18-2022 History of Present illness Narrative* Wilmer Rosas RN - 10/22/2021 1:30 PM EST Radiology Service Progress Note DATE OF SERVICE: October 22, 2021 TIME: 1:50 PM PATIENT WEIGHT: 172 LBS PATIENT IDENTITY VERIFICATION COMPLETED USING TWO [...] CREATININE: Creatinine Date Value Ref Range Status 10/22/2021 0.84 0.73 - 1.22 mg/dL Final 06/07/2021 0.92 0.73 - 1.22 mg/dL Final 01/27/2021 0.85 0.73 - 1.22 mg/dL Final eGFR-All Other Races Date Value Ref Range Status 10/22/2021 >60 . Final Comment: eGFR (Estimated GFR) Units of measure: mL/min/1.73 meters squared eGFR is derived from the reexpressed MDRD Study equation using the following parameters: serum creatinine, age, gender and race. The creatinine assay has been calibrated to be traceable to IDMS. An eGFR <60 mL/min/1.73m2 for >3 months is consistent with chronic kidney disease. Refer to KDOQI guidelines for clinical interpretation. In patients with unstable renal function, e.g. those with acute kidney injury, the eGFR may not accurately reflect actual GFR. Note: On 10/30/2021, the eGFR calculation will be updated to the NKF-ASN Task Force recommended 2020 CKD-EPI creatinine equation which does not include a race variable. For more information or to access a 2020 CKD-EPI calculator, visit the National Kidney Foundation website at kidney.org/professionals/kdoqi/gfr_calculator. eGFR- Date Value Ref Range Status 10/22/2021 >60 Final P.O.C.T. RESULTS: POC done: Yes, See Lab Tab October 22, 2021 TREATMENT: No Hydration needed. IV SITE: Ambulatory: A peripheral IV was started in the Right antecubital site with a Angio cath: 20 gauge. IV SITE APPEARANCE: Clean,Dry and Intact SIGNATURE: Wilmer Rosas RN PATIENT NAME: Alessio Burns DATE: October 22, 2021 TIME: 1:50 PM * Charla Godfrey RT(R) - 10/22/2021 1:30 PM EST Radiology Service Progress Note PATIENT NAME: Alessio Burns DATE OF SERVICE: October 22, 2021 TIME: 1:53 PM PATIENT IDENTITY VERIFICATION COMPLETED USING TWO (2) IDENTIFIERS: Name and Date of confirmedby patient verbally. FALL SCREENING: Has the patient [...] Site disposition Discontinued SIGNED BY: RT Darius(R) October 22, 2021 1:53 PM documented in [facility]* Diagnosis Cancer of trachea, bronchus, and lung (HCC)- Primary Malignant neoplasm of other parts of bronchus or lung Liver mass, right lobe Unspecified disorder of liver documented in this encounter [facility]* Diagnosis Pre-op evaluation- Primary Preoperative examination, unspecified Liver mass Unspecified disorder of liver Coronary arteriosclerosis Coronary atherosclerosis of unspecified type of vessel, venetie ira or graft Chronic diastolic CHF (congestive heart [...] disorder of liver documented in this encounter [facility]* Diagnosis Liver mass- Primary Unspecified disorder of liver documented in this encounter [facility]* Diagnosis Cancer of trachea, bronchus, and lung (HCC)- Primary Malignant neoplasm of other parts of bronchus or lung Malignant neoplasm of unspecified part of unspecified bronchus or lung (HCC) Panlobular emphysema (HCC) Other emphysema documented in this encounter [facility]* Diagnosis Malignant neoplasm of unspecified part of unspecified bronchus or lung (HCC)- Primary Cancer of trachea, bronchus, and lung (HCC) Malignant neoplasm of other parts of bronchus or lung Panlobular emphysema (HCC) Other emphysema documented in this encounter [facility]* Diagnosis Onset Date Resolution Status Personal history of colonic polyps [facility] Work Phone: Evaluation note* Diagnosis Cancer of trachea, bronchus, and lung (HCC)- Primary Malignant neoplasm of other parts of bronchus or lung Lung nodules Other nonspecific abnormal finding of lung field Panlobular emphysema (HCC) Other emphysema documented in this encounter [facility]* Diagnosis Malignant neoplasm of unspecified part of unspecified bronchus or lung (HCC)- Primary documented in this encounter [facility]* Diagnosis Malignant neoplasm of unspecified part of unspecified bronchus or lung (HCC)- Primary Lung nodules Other nonspecific abnormal finding of lung field 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 reaction to tuberculin skin test without active tuberculosis Non-caseating granuloma Pyogenic granuloma of skin and subcutaneous tissue documented in this encounter [facility]* Diagnosis Malignant neoplasm of unspecified part of unspecified bronchus or lung (HCC)- Primary [facility]* Diagnosis Malignant neoplasm of unspecified part of unspecified bronchus or lung (HCC)- Primary Lung nodules Other nonspecific abnormal finding of lung field documented [facility] this encounter [facility]* Diagnosis Abnormal finding on GI tract imaging- Primary Nonspecific (abnormal) findings on radiological and other examination of gastrointestinal tract Malignant neoplasm of unspecified part of unspecified bronchus or lung (HCC) documented in this encounter [facility] noteNo assessment information availableDetwiler [facility] Work Phone: Evaluation note* Diagnosis Malignant neoplasm of unspecified part of unspecified bronchus or lung (HCC)- Primary documented in this encounter [facility] note* Diagnosis 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) documented in this encounter [facility] note* Diagnosis Lower abdominal pain- Primary Abdominal pain, other specified site Malignant neoplasm of upper lobe of right lung (HCC) Malignant neoplasm of upper lobe, bronchus or lung documented in this encounter [facility] note* Diagnosis Lung nodules- Primary Other nonspecific abnormal finding of lung field Malignant neoplasm of unspecified part of unspecified bronchus or lung (HCC) documented in this encounter [facility] note* Diagnosis Cancer of trachea, bronchus, and lung (HCC)- Primary Malignant neoplasm of other parts of bronchus or lung documented in this encounter [facility] note* Diagnosis Malignant neoplasm of unspecified part of unspecified bronchus or lung (HCC)- Primary Abnormal finding on GI tract imaging Nonspecific (abnormal) findings on radiological and other examination of gastrointestinal tract Malignant neoplasm of lung, unspecified laterality, unspecified part of lung (HCC) documented in this encounter [facility] note* Diagnosis Pre-op evaluation- Primary Preoperative examination, unspecified Liver mass Unspecified disorder of liver Coronary arteriosclerosis Coronary atherosclerosis of unspecified type of vessel, venetie ira or graft Chronic diastolic CHF (congestive heart [...] unspecified hyperlipidemia type Depression, unspecified depression type Lung nodules Other nonspecific abnormal finding of lung field Malignant neoplasm of unspecified part of unspecified bronchus or lung (HCC) documented in this encounter [facility]* Diagnosis Pre-op evaluation- Primary Preoperative examination, unspecified Liver mass Unspecified disorder of liver Coronary arteriosclerosis Coronary atherosclerosis of unspecified type of vessel, venetie ira or graft Chronic diastolic CHF (congestive heart [...] unspecified hyperlipidemia type Depression, unspecified depression type Lower abdominal pain Abdominal pain, other specified site Malignant neoplasm of upper lobe of right lung (HCC) Malignant neoplasm of upper lobe, bronchus or lung documented in this encounter [facility] note* Diagnosis Pre-op evaluation- Primary Preoperative examination, unspecified Liver mass Unspecified disorder of liver Coronary arteriosclerosis Coronary atherosclerosis of unspecified type of vessel, [place] ira or graft Chronic diastolic CHF (congestive heart [...] unspecified hyperlipidemia type Depression, unspecified depression type Malignant neoplasm of unspecified part of unspecified bronchus or lung (HCC) documented in this encounter [facility] note* Diagnosis Pre-op evaluation- Primary Preoperative examination, unspecified Liver mass Unspecified disorder of liver Coronary arteriosclerosis Coronary atherosclerosis of unspecified type of vessel, [place] or graft Chronic diastolic CHF (congestive heart [...] unspecified hyperlipidemia type Depression, unspecified depression type Abnormal finding on GI tract imaging Nonspecific (abnormal) findings on radiological and other examination of gastrointestinal tract Malignant neoplasm of unspecified part of unspecified bronchus or lung (HCC) documented in this encounter [facility] note* Diagnosis Pre-op evaluation- Primary Preoperative examination, unspecified Liver mass Unspecified disorder of liver Coronary arteriosclerosis Coronary atherosclerosis of unspecified type of vessel, [place] or graft Chronic diastolic CHF (congestive heart [...] unspecified hyperlipidemia type Depression, unspecified depression type Malignant neoplasm of unspecified part of unspecified bronchus or lung (HCC) Lung nodules Other nonspecific abnormal finding of lung field documented in this encounter [facility] note* Diagnosis Pre-op evaluation- Primary Preoperative examination, unspecified Liver mass Unspecified disorder of liver Coronary arteriosclerosis Coronary atherosclerosis of unspecified type of vessel, [place] ira or graft Chronic diastolic CHF (congestive heart [...] unspecified hyperlipidemia type Depression, unspecified depression type Malignant neoplasm of unspecified part of unspecified bronchus or lung (HCC) [facility] Diagnosis Pre-op evaluation- Primary Preoperative examination, unspecified Liver mass Unspecified disorder of liver Coronary arteriosclerosis Coronary atherosclerosis of unspecified type of vessel, [place] ira or graft Chronic diastolic CHF (congestive heart [...] unspecified hyperlipidemia type Depression, unspecified depression type Malignant neoplasm of unspecified part of unspecified bronchus or lung (HCC) Malignant neoplasm of overlapping sites of right lung (HCC) [facility] Diagnosis Pre-op evaluation- Primary Preoperative examination, unspecified Liver mass Unspecified disorder of liver Coronary arteriosclerosis Coronary atherosclerosis of unspecified type of vessel, [place] ira or graft Chronic diastolic CHF (congestive heart [...] unspecified hyperlipidemia type Depression, unspecified depression type Cancer of trachea, bronchus, and lung (HCC) Malignant neoplasm of other parts of bronchus or lung Lung nodules Other nonspecific abnormal finding of lung field documented in this encounter [facility] note* Diagnosis Pre-op evaluation- Primary Preoperative examination, unspecified Liver mass Unspecified disorder of liver Coronary arteriosclerosis Coronary atherosclerosis of unspecified type of vessel, [place] ira or graft Chronic diastolic CHF (congestive heart [...] unspecified hyperlipidemia type Depression, unspecified depression type Lung nodules Other nonspecific abnormal finding of lung field Malignant neoplasm of unspecified part of unspecified bronchus or lung (HCC) [facility] Diagnosis Pre-op evaluation- Primary Preoperative examination, unspecified Liver mass Unspecified disorder of liver Coronary arteriosclerosis Coronary atherosclerosis of unspecified type of vessel, [place] ira or graft Chronic diastolic CHF (congestive heart [...] unspecified hyperlipidemia type Depression, unspecified depression type Malignant neoplasm of unspecified part of unspecified bronchus or lung (HCC) [facility] Diagnosis Pre-op evaluation- Primary Preoperative examination, unspecified Liver mass Unspecified disorder of liver Coronary arteriosclerosis Coronary atherosclerosis of unspecified type of vessel, [place] ira or graft Chronic diastolic CHF (congestive heart [...] unspecified hyperlipidemia type Depression, unspecified depression type Malignant neoplasm of unspecified part of unspecified bronchus or lung (HCC) Cancer of trachea, bronchus, and lung (HCC) Malignant neoplasm of other parts of bronchus or lung Panlobular emphysema (HCC) Other emphysema documented in this encounter [facility] note* Diagnosis Enlarged lymph node Enlargement of lymph nodes Cancer of trachea, bronchus, and lung (HCC) Malignant neoplasm of other parts of bronchus or lung Positive colorectal cancer screening using Cologuard test Abdominal mass, unspecified abdominal location Lung nodules Other nonspecific abnormal finding of lung field Malignant neoplasm of unspecified part of unspecified bronchus or lung (HCC) Pre-op evaluation- Primary Preoperative examination, unspecified Liver mass Unspecified disorder of liver Coronary arteriosclerosis Coronary atherosclerosis of unspecified type of vessel, [place] ira or graft Chronic diastolic CHF (congestive heart [...] unspecified hyperlipidemia type Depression, unspecified depression type [facility] Enlarged lymph node Enlargement of lymph nodes [facility] Diagnosis Hypokalemia Hypopotassemia Essential (primary) hypertension (CMS/HCC) Unspecified essential hypertension documented in this encounter [facility]* Diagnosis Panlobular emphysema (CMS/HCC)- Primary Other emphysema Thoracic aortic ectasia (I77.810) Thoracic aortic ectasia Adenocarcinoma of right lung (CMS/HCC) Chronic systolic heart failure (CMS/HCC) Chronic systolic heart failure Aneurysm of ascending aorta without rupture (CMS/HCC) Hyperlipidemia, unspecified hyperlipidemia type (CMS/HCC) Tobacco dependence Tobacco use disorder Recurrent major depressive disorder, in partial remission (HCC) (CMS/HCC) Medicare annual wellness visit, subsequent Psychophysiological insomnia Persistent disorder of initiating or maintaining sleep Chronic idiopathic constipation Unspecified constipation Left leg pain- Primary Pain in soft tissues of limb Traumatic injury of head, initial encounter- Primary Panlobular emphysema (CMS/HCC) Other emphysema Adenocarcinoma of right lung (CMS/HCC) Primary hypertension (CMS/HCC)- Primary Unspecified essential hypertension Hyperlipidemia, unspecified hyperlipidemia type (CMS/HCC) Chronic idiopathic constipation Unspecified constipation Panlobular emphysema (CMS/HCC) Other emphysema Depression, unspecified (CMS/HCC) documented in this encounter [facility]* Diagnosis Pre-op evaluation- Primary Preoperative examination, unspecified Liver mass Unspecified disorder of liver Coronary arteriosclerosis Coronary atherosclerosis of unspecified type of vessel, [place] ira or graft Chronic diastolic CHF (congestive heart [...] unspecified hyperlipidemia type Depression, unspecified depression type Malignant neoplasm of unspecified part of unspecified bronchus or lung (HCC) Abnormal finding on GI tract imaging Nonspecific (abnormal) findings on radiological and other examination of gastrointestinal tract Malignant neoplasm of lung, unspecified laterality, unspecified part of lung (HCC) [facility] Diagnosis Pre-op evaluation- Primary Preoperative examination, unspecified Liver mass Unspecified disorder of liver Coronary arteriosclerosis Coronary atherosclerosis of unspecified type of vessel, [place] ira or graft Chronic diastolic CHF (congestive heart [...] unspecified hyperlipidemia type Depression, unspecified depression type Malignant neoplasm of unspecified part of unspecified bronchus or lung (HCC)- Primary Abnormal finding on GI tract imaging Nonspecific (abnormal) findings on radiological and other examination of gastrointestinal tract Lung nodules Other nonspecific abnormal finding of lung field Non-caseating granuloma Pyogenic granuloma of skin and subcutaneous tissue [facility] Diagnosis Panlobular emphysema (CMS/HCC)- Primary Other emphysema Thoracic aortic ectasia (I77.810) Thoracic aortic ectasia Adenocarcinoma of right lung (CMS/HCC) Chronic systolic heart failure (CMS/HCC) Chronic systolic heart failure Aneurysm of ascending aorta without rupture (CMS/HCC) Hyperlipidemia, unspecified hyperlipidemia type (CMS/HCC) Tobacco dependence Tobacco use disorder Recurrent major depressive disorder, in partial remission (HCC) (CMS/HCC) Medicare annual wellness visit, subsequent Psychophysiological insomnia Persistent disorder of initiating or maintaining sleep Chronic idiopathic constipation Unspecified constipation Left leg pain- Primary Pain in soft tissues of limb Traumatic injury of head, initial encounter- Primary Panlobular emphysema (CMS/HCC) Other emphysema Adenocarcinoma of right lung (CMS/HCC) Primary hypertension (CMS/HCC)- Primary Unspecified essential hypertension Hyperlipidemia, unspecified hyperlipidemia type (CMS/HCC) Chronic idiopathic constipation Unspecified constipation Panlobular emphysema (CMS/HCC) Other emphysema Heart failure, unspecified (CMS/HCC) Heart failure, unspecified [facility]* Diagnosis Chronic idiopathic constipation Unspecified constipation [facility]* Diagnosis Chronic obstructive pulmonary disease, unspecified (CMS/HCC) [facility]* Diagnosis Hypokalemia Hypopotassemia documented [facility]* Diagnosis Primary hypertension (CMS/HCC)- Primary Unspecified essential hypertension Hyperlipidemia, unspecified hyperlipidemia type (CMS/HCC) Chronic idiopathic constipation Unspecified constipation Panlobular emphysema (CMS/HCC) Other emphysema documented [facility]* Diagnosis Panlobular emphysema (CMS/HCC)- Primary Other emphysema Thoracic aortic ectasia (I77.810) Thoracic aortic ectasia Adenocarcinoma of right lung (CMS/HCC) Chronic systolic heart failure (CMS/HCC) Chronic systolic heart failure Aneurysm of ascending aorta without rupture (CMS/HCC) Hyperlipidemia, unspecified hyperlipidemia type (CMS/HCC) Tobacco dependence Tobacco use disorder Recurrent major depressive disorder, in partial remission (HCC) (CMS/HCC) Medicare annual wellness visit, subsequent Psychophysiological insomnia Persistent disorder of initiating or maintaining sleep Chronic idiopathic constipation Unspecified constipation Left leg pain- Primary Pain in soft tissues of limb Traumatic injury of head, initial encounter- Primary Panlobular emphysema (CMS/HCC) Other emphysema Adenocarcinoma of right lung (CMS/HCC) Primary hypertension (CMS/HCC)- Primary Unspecified essential hypertension Hyperlipidemia, unspecified hyperlipidemia type (CMS/HCC) Chronic idiopathic constipation Unspecified constipation Panlobular emphysema (CMS/HCC) Other emphysema Hyperlipidemia, unspecified hyperlipidemia type (CMS/HCC)- Primary Panlobular emphysema (CMS/HCC) Other emphysema Depression, unspecified (CMS/HCC) Primary hypertension (CMS/HCC) Unspecified essential hypertension [facility]* Diagnosis Pre-op evaluation- Primary Preoperative examination, unspecified Liver mass Unspecified disorder of liver Coronary arteriosclerosis Coronary atherosclerosis of unspecified type of vessel, [place] ira or graft Chronic diastolic CHF (congestive heart [...] unspecified hyperlipidemia type Depression, unspecified depression type Malignant neoplasm of unspecified part of unspecified bronchus or lung (HCC) Abnormal finding on GI tract imaging Nonspecific (abnormal) findings on radiological and other examination of gastrointestinal tract Lung nodules Other nonspecific abnormal finding of lung field Non-caseating granuloma Pyogenic granuloma of skin and subcutaneous tissue [facility] Diagnosis Chronic obstructive pulmonary disease, unspecified COPD type ([facility]-H[facility]) [facility] Diagnosis Pre-op evaluation- Primary Preoperative examination, unspecified Liver mass Unspecified disorder of liver Coronary arteriosclerosis Coronary atherosclerosis of unspecified type of vessel, [place] ira or graft Chronic diastolic CHF (congestive heart [...] unspecified hyperlipidemia type Depression, unspecified depression type Malignant neoplasm of upper lobe of right lung (HCC)- Primary Malignant neoplasm of upper lobe, bronchus or lung Malignant neoplasm of unspecified part of unspecified bronchus or lung (HCC) Lung nodules Other nonspecific abnormal finding of lung field Non-caseating granuloma Pyogenic granuloma of skin and subcutaneous tissue Malignant neoplasm of overlapping sites of right lung (HCC) [facility] Diagnosis Panlobular emphysema (CMS/HCC)- Primary Other emphysema Thoracic aortic ectasia (I77.810) Thoracic aortic ectasia Adenocarcinoma of right lung (CMS/HCC) Chronic systolic heart failure (CMS/HCC) Chronic systolic heart failure Aneurysm of ascending aorta without rupture (CMS/HCC) Hyperlipidemia, unspecified hyperlipidemia type (CMS/HCC) Tobacco dependence Tobacco use disorder Recurrent major depressive disorder, in partial remission (HCC) (CMS/HCC) Medicare annual wellness visit, subsequent Psychophysiological insomnia Persistent disorder of initiating or maintaining sleep Chronic idiopathic constipation Unspecified constipation Left leg pain- Primary Pain in soft tissues of limb Traumatic injury of head, initial encounter- Primary Panlobular emphysema (CMS/HCC) Other emphysema Adenocarcinoma of right lung (CMS/HCC) Primary hypertension (CMS/HCC)- Primary Unspecified essential hypertension Hyperlipidemia, unspecified hyperlipidemia type (CMS/HCC) Chronic idiopathic constipation Unspecified constipation Panlobular emphysema (CMS/HCC) Other emphysema Hyperlipidemia, unspecified hyperlipidemia type (CMS/HCC)- Primary Panlobular emphysema (CMS/HCC) Other emphysema Depression, unspecified (CMS/HCC) Primary hypertension (CMS/HCC) Unspecified essential hypertension Hypokalemia Hypopotassemia Chronic obstructive pulmonary disease, unspecified (CMS/HCC) [facility] Panlobular emphysema (CMS/HCC)- Primary Other emphysema Thoracic aortic ectasia (I77.810) Thoracic aortic ectasia Adenocarcinoma of right lung (CMS/HCC) Chronic systolic heart failure (CMS/HCC) Chronic systolic heart failure Aneurysm of ascending aorta without rupture (CMS/HCC) Hyperlipidemia, unspecified hyperlipidemia type (CMS/HCC) Tobacco dependence Tobacco use disorder Recurrent major depressive disorder, in partial remission (HCC) (CMS/HCC) Medicare annual wellness visit, subsequent Psychophysiological insomnia Persistent disorder of initiating or maintaining sleep Chronic idiopathic constipation Unspecified constipation Left leg pain- Primary Pain in soft tissues of limb Traumatic injury of head, initial encounter- Primary Panlobular emphysema (CMS/HCC) Other emphysema Adenocarcinoma of right lung (CMS/HCC) Primary hypertension (CMS/HCC)- Primary Unspecified essential hypertension Hyperlipidemia, unspecified hyperlipidemia type (CMS/HCC) Chronic idiopathic constipation Unspecified constipation Panlobular emphysema (CMS/HCC) Other emphysema Hyperlipidemia, unspecified hyperlipidemia type (CMS/HCC)- Primary Panlobular emphysema (CMS/HCC) Other emphysema Depression, unspecified (CMS/HCC) Primary hypertension (CMS/HCC) Unspecified essential hypertension Male erectile dysfunction, unspecified documented in this encounter [facility]* Diagnosis Panlobular emphysema (CMS/HCC)- Primary Other emphysema Thoracic aortic ectasia (I77.810) Thoracic aortic ectasia Adenocarcinoma of right lung (CMS/HCC) Chronic systolic heart failure (CMS/HCC) Chronic systolic heart failure Aneurysm of ascending aorta without rupture (CMS/HCC) Hyperlipidemia, unspecified hyperlipidemia type (CMS/HCC) Tobacco dependence Tobacco use disorder Recurrent major depressive disorder, in partial remission (HCC) ([facility]) Medicare annual wellness visit, subsequent Psychophysiological insomnia Persistent disorder of initiating or maintaining sleep Chronic idiopathic constipation Unspecified constipation Left leg pain- Primary Pain in soft tissues of limb Traumatic injury of head, initial encounter- Primary Panlobular emphysema (CMS/HCC) Other emphysema Adenocarcinoma of right lung (CMS/HCC) Primary hypertension (CMS/HCC)- Primary Unspecified essential hypertension Hyperlipidemia, unspecified hyperlipidemia type (CMS/HCC) Chronic idiopathic constipation Unspecified constipation Panlobular emphysema (CMS/HCC) Other emphysema Hyperlipidemia, unspecified hyperlipidemia type (CMS/HCC)- Primary Panlobular emphysema (CMS/HCC) Other emphysema Depression, unspecified (CMS/HCC) Primary hypertension (CMS/HCC) Unspecified essential hypertension Male erectile dysfunction, unspecified documented in this encounter [facility]* Diagnosis Chronic obstructive pulmonary disease, unspecified COPD type (CMS-HCC)- Primary Cancer of trachea, bronchus, and lung (CMS-HCC) Malignant neoplasm of other parts of bronchus or lung Smoker Tobacco use disorder [facility] Diagnosis Panlobular emphysema (CMS/HCC)- Primary Other emphysema Thoracic aortic ectasia (I77.810) Thoracic aortic ectasia Adenocarcinoma of right lung (CMS/HCC) Chronic systolic heart failure (CMS/HCC) Chronic systolic heart failure Aneurysm of ascending aorta without rupture (CMS/HCC) Hyperlipidemia, unspecified hyperlipidemia type (CMS/HCC) Tobacco dependence Tobacco use disorder Recurrent major depressive disorder, in partial remission (HCC) (CMS/HCC) Medicare annual wellness visit, subsequent Psychophysiological insomnia Persistent disorder of initiating or maintaining sleep Chronic idiopathic constipation Unspecified constipation Left leg pain- Primary Pain in soft tissues of limb Traumatic injury of head, initial encounter- Primary Panlobular emphysema (CMS/HCC) Other emphysema Adenocarcinoma of right lung (CMS/HCC) Primary hypertension (CMS/HCC)- Primary Unspecified essential hypertension Hyperlipidemia, unspecified hyperlipidemia type (CMS/HCC) Chronic idiopathic constipation Unspecified constipation Panlobular emphysema (CMS/HCC) Other emphysema Hyperlipidemia, unspecified hyperlipidemia type (CMS/HCC)- Primary Panlobular emphysema (CMS/HCC) Other emphysema Depression, unspecified (CMS/HCC) Primary hypertension (CMS/HCC) Unspecified essential hypertension 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) [facility]- Primary Preoperative examination, unspecified Liver mass Unspecified disorder of liver Coronary arteriosclerosis Coronary atherosclerosis of unspecified type of vessel, [place] ira or graft Chronic diastolic CHF (congestive heart [...] unspecified hyperlipidemia type Depression, unspecified depression type Malignant neoplasm of upper lobe of right lung (HCC) Malignant neoplasm of upper lobe, bronchus or lung [facility] Pre-op evaluation- Primary Preoperative examination, unspecified Liver mass Unspecified disorder of liver Coronary arteriosclerosis Coronary atherosclerosis of unspecified type of vessel, [place] ira or graft Chronic diastolic CHF (congestive heart [...] unspecified hyperlipidemia type Depression, unspecified depression type Malignant neoplasm of upper lobe of right lung (HCC)- Primary Malignant neoplasm of upper lobe, bronchus or lung Non-caseating granuloma Pyogenic granuloma of skin and subcutaneous tissue Abnormal finding on GI tract imaging Nonspecific (abnormal) findings on radiological and other examination of gastrointestinal tract Anemia, unspecified type [facility] Diagnosis Panlobular emphysema (CMS/HCC)- Primary Other emphysema Thoracic aortic ectasia (I77.810) Thoracic aortic ectasia Adenocarcinoma of right lung (CMS/HCC) Chronic systolic heart failure (CMS/HCC) Chronic systolic heart failure Aneurysm of ascending aorta without rupture (CMS/HCC) Hyperlipidemia, unspecified hyperlipidemia type (CMS/HCC) Tobacco dependence Tobacco use disorder Recurrent major depressive disorder, in partial remission (HCC) (CMS/HCC) Medicare annual wellness visit, subsequent Psychophysiological insomnia Persistent disorder of initiating or maintaining sleep Chronic idiopathic constipation Unspecified constipation Left leg pain- Primary Pain in soft tissues of limb Traumatic injury of head, initial encounter- Primary Panlobular emphysema (CMS/HCC) Other emphysema Adenocarcinoma of right lung (CMS/HCC) Primary hypertension (CMS/HCC)- Primary Unspecified essential hypertension Hyperlipidemia, unspecified hyperlipidemia type (CMS/HCC) Chronic idiopathic constipation Unspecified constipation Panlobular emphysema (CMS/HCC) Other emphysema Hyperlipidemia, unspecified hyperlipidemia type (CMS/HCC)- Primary Panlobular emphysema (CMS/HCC) Other emphysema Depression, unspecified (CMS/HCC) Primary hypertension (CMS/HCC) Unspecified essential hypertension Mild episode of recurrent major depressive disorder (HCC) (CMS/HCC)- Primary Adenocarcinoma of right lung (CMS/HCC) Chronic systolic (congestive) heart failure Primary hypertension (CMS/HCC) Unspecified essential hypertension Male erectile dysfunction, unspecified Tobacco dependence Tobacco use disorder [facility] Panlobular emphysema (CMS/HCC)- Primary Other emphysema Thoracic aortic ectasia (I77.810) Thoracic aortic ectasia Adenocarcinoma of right lung (CMS/HCC) Chronic systolic heart failure (CMS/HCC) Chronic systolic heart failure Aneurysm of ascending aorta without rupture (CMS/HCC) Hyperlipidemia, unspecified hyperlipidemia type (CMS/HCC) Tobacco dependence Tobacco use disorder Recurrent major depressive disorder, in partial remission (HCC) (CMS/HCC) Medicare annual wellness visit, subsequent Psychophysiological insomnia Persistent disorder of initiating or maintaining sleep Chronic idiopathic constipation Unspecified constipation Left leg pain- Primary Pain in soft tissues of limb Traumatic injury of head, initial encounter- Primary Panlobular emphysema (CMS/HCC) Other emphysema Adenocarcinoma of right lung (CMS/HCC) Primary hypertension (CMS/HCC)- Primary Unspecified essential hypertension Hyperlipidemia, unspecified hyperlipidemia type (CMS/HCC) Chronic idiopathic constipation Unspecified constipation Panlobular emphysema (CMS/HCC) Other emphysema Hyperlipidemia, unspecified hyperlipidemia type (CMS/HCC)- Primary Panlobular emphysema (CMS/HCC) Other emphysema Depression, unspecified (CMS/HCC) Primary hypertension (CMS/HCC) Unspecified essential hypertension Mild episode of recurrent major depressive disorder (HCC) (CMS/HCC)- Primary Adenocarcinoma of right lung (CMS/HCC) Chronic systolic (congestive) heart failure Primary hypertension (CMS/HCC) Unspecified essential hypertension Male erectile dysfunction, unspecified Tobacco dependence Tobacco use disorder Mild episode of recurrent major depressive disorder (HCC) (CMS/HCC)- Primary documented in this encounter [facility] HealthcareEvaluation note* Diagnosis Panlobular emphysema (CMS/HCC)- Primary Other emphysema Thoracic aortic ectasia (I77.810) Thoracic aortic ectasia Adenocarcinoma of right lung (CMS/HCC) Chronic systolic heart failure (CMS/HCC) Chronic systolic heart failure Aneurysm of ascending aorta without rupture (CMS/HCC) Hyperlipidemia, unspecified hyperlipidemia type (CMS/HCC) Tobacco dependence Tobacco use disorder Recurrent major depressive disorder, in partial remission (HCC) (CMS/HCC) Medicare annual wellness visit, subsequent Psychophysiological insomnia Persistent disorder of initiating or maintaining sleep Chronic idiopathic constipation Unspecified constipation Left leg pain- Primary Pain in soft tissues of limb Traumatic injury of head, initial encounter- Primary Panlobular emphysema (CMS/HCC) Other emphysema Adenocarcinoma of right lung (CMS/HCC) Primary hypertension (CMS/HCC)- Primary Unspecified essential hypertension Hyperlipidemia, unspecified hyperlipidemia type (CMS/HCC) Chronic idiopathic constipation Unspecified constipation Panlobular emphysema (CMS/HCC) Other emphysema Hyperlipidemia, unspecified hyperlipidemia type (CMS/HCC)- Primary Panlobular emphysema (CMS/HCC) Other emphysema Depression, unspecified (CMS/HCC) Primary hypertension (CMS/HCC) Unspecified essential hypertension Mild episode of recurrent major depressive disorder (HCC) (CMS/HCC)- Primary Adenocarcinoma of right lung (CMS/HCC) Chronic systolic (congestive) heart failure Primary hypertension (CMS/HCC) Unspecified essential hypertension Male erectile dysfunction, unspecified Tobacco dependence Tobacco use disorder 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) [facility]- Primary Preoperative examination, unspecified Liver mass Unspecified disorder of liver Coronary arteriosclerosis Coronary atherosclerosis of unspecified type of vessel, [place] or graft Chronic diastolic CHF (congestive heart failure) (HCC) Chronic diastolic heart failure Aortic valve stenosis, etiology of cardiac valve disease unspecified Thoracic aortic aneurysm without rupture Thoracic aneurysm without mention of rupture Acute [...] unspecified hyperlipidemia type Depression, unspecified depression type Malignant neoplasm of upper lobe of right lung (HCC) Malignant neoplasm of upper lobe, bronchus or lung Non-caseating granuloma Pyogenic granuloma of skin and subcutaneous tissue Abnormal finding on GI tract imaging Nonspecific (abnormal) findings on radiological and other examination of gastrointestinal tract Anemia, unspecified type [facility] Diagnosis Pre-op evaluation- Primary Preoperative examination, unspecified Liver mass Unspecified disorder of liver Coronary arteriosclerosis Coronary atherosclerosis of unspecified type of vessel, [place] or graft Chronic diastolic CHF (congestive heart failure) (HCC) Chronic diastolic heart failure Aortic valve stenosis, etiology of cardiac valve disease unspecified Thoracic aortic aneurysm without rupture Thoracic aneurysm without mention of rupture Acute [...] unspecified hyperlipidemia type Depression, unspecified depression type Malignant neoplasm of upper lobe of right lung (HCC)- Primary Malignant neoplasm of upper lobe, bronchus or lung Non-caseating granuloma Pyogenic granuloma of skin and subcutaneous tissue Lung nodules Other nonspecific abnormal finding of lung field Tobacco use disorder Megaloblastic anemia due to vitamin B12 deficiency Other vitamin B12 deficiency anemia Malignant neoplasm of unspecified part of unspecified bronchus or lung (HCC) Nicotine dependence, cigarettes, uncomplicated Other vitamin B12 deficiency anemia Encounter for follow-up examination after completed treatment for conditions other than malignant neoplasm Generalized abdominal pain Abdominal pain, generalized [facility] Diagnosis Panlobular emphysema (CMS/HCC)- Primary Other emphysema Thoracic aortic ectasia (I77.810) Thoracic aortic ectasia Adenocarcinoma of right lung (CMS/HCC) Chronic systolic heart failure (CMS/HCC) Chronic systolic heart failure Aneurysm of ascending aorta without rupture (CMS/HCC) Hyperlipidemia, unspecified hyperlipidemia type (CMS/HCC) Tobacco dependence Tobacco use disorder Recurrent major depressive disorder, in partial remission (HCC) (CMS/HCC) Medicare annual wellness visit, subsequent Psychophysiological insomnia Persistent disorder of initiating or maintaining sleep Chronic idiopathic constipation Unspecified constipation Left leg pain- Primary Pain in soft tissues of limb Traumatic injury of head, initial encounter- Primary Panlobular emphysema (CMS/HCC) Other emphysema Adenocarcinoma of right lung (CMS/HCC) Primary hypertension (CMS/HCC)- Primary Unspecified essential hypertension Hyperlipidemia, unspecified hyperlipidemia type (CMS/HCC) Chronic idiopathic constipation Unspecified constipation Panlobular emphysema (CMS/HCC) Other emphysema Hyperlipidemia, unspecified hyperlipidemia type (CMS/HCC)- Primary Panlobular emphysema (CMS/HCC) Other emphysema Depression, unspecified (CMS/HCC) Primary hypertension (CMS/HCC) Unspecified essential hypertension Mild episode of recurrent major depressive disorder (HCC) (CMS/HCC)- Primary Adenocarcinoma of right lung (CMS/HCC) Chronic systolic (congestive) heart failure Primary hypertension (CMS/HCC) Unspecified essential hypertension Male erectile dysfunction, unspecified Tobacco dependence Tobacco use disorder Mild episode of recurrent major depressive disorder (HCC) (CMS/HCC) 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) documented in this encounter [facility] HealthcareEvaluation note* Diagnosis Panlobular emphysema (CMS/HCC)- Primary Other emphysema Thoracic aortic ectasia (I77.810) Thoracic aortic ectasia Adenocarcinoma of right lung (CMS/HCC) Chronic systolic heart failure (CMS/HCC) Chronic systolic heart failure Aneurysm of ascending aorta without rupture (CMS/HCC) Hyperlipidemia, unspecified hyperlipidemia type (CMS/HCC) Tobacco dependence Tobacco use disorder Recurrent major depressive disorder, in partial remission (HCC) (CMS/HCC) Medicare annual wellness visit, subsequent Psychophysiological insomnia Persistent disorder of initiating or maintaining sleep Chronic idiopathic constipation Unspecified constipation Left leg pain- Primary Pain in soft tissues of limb Traumatic injury of head, initial encounter- Primary Panlobular emphysema (CMS/HCC) Other emphysema Adenocarcinoma of right lung (CMS/HCC) Primary hypertension (CMS/HCC)- Primary Unspecified essential hypertension Hyperlipidemia, unspecified hyperlipidemia type (CMS/HCC) Chronic idiopathic constipation Unspecified constipation Panlobular emphysema (CMS/HCC) Other emphysema Hyperlipidemia, unspecified hyperlipidemia type (CMS/HCC)- Primary Panlobular emphysema (CMS/HCC) Other emphysema Depression, unspecified (CMS/HCC) Primary hypertension (CMS/HCC) Unspecified essential hypertension Mild episode of recurrent major depressive disorder (HCC) (CMS/HCC)- Primary Adenocarcinoma of right lung (CMS/HCC) Chronic systolic (congestive) heart failure Primary hypertension (CMS/HCC) Unspecified essential hypertension Male erectile dysfunction, unspecified Tobacco dependence Tobacco use disorder Medicare annual wellness visit, subsequent- Primary Tobacco dependence Tobacco use disorder Mild episode of recurrent major depressive disorder (HCC) (CMS/HCC) Primary hypertension (CMS/HCC) Unspecified essential hypertension Adenocarcinoma of right lung (CMS/HCC) documented in this encounter [facility] HealthcareEvaluation note* Diagnosis Chronic obstructive pulmonary disease, unspecified COPD type (CMS-HCC)- Primary Lung nodules Other diseases of lung, not elsewhere classified Smoker Tobacco use disorder [facility] Diagnosis Panlobular emphysema (HCC)- Primary Other emphysema Thoracic aortic ectasia (I77.810) Thoracic aortic ectasia Adenocarcinoma of right lung (HCC) Chronic systolic heart failure (HCC) Chronic systolic heart failure Aneurysm of ascending aorta without rupture Hyperlipidemia, unspecified hyperlipidemia type Tobacco dependence Tobacco use disorder Recurrent major depressive disorder, in partial remission Medicare annual wellness visit, subsequent Psychophysiological insomnia Persistent disorder of initiating or maintaining sleep Chronic idiopathic constipation Unspecified constipation Left leg pain- Primary Pain in soft tissues of limb Traumatic injury of head, initial encounter- Primary Panlobular emphysema (HCC) Other emphysema Adenocarcinoma of right lung (HCC) Primary hypertension- Primary Unspecified essential hypertension Hyperlipidemia, unspecified hyperlipidemia type Chronic idiopathic constipation Unspecified constipation Panlobular emphysema (HCC) Other emphysema Hyperlipidemia, unspecified hyperlipidemia type- Primary Panlobular emphysema (HCC) Other emphysema Depression, unspecified Primary hypertension Unspecified essential hypertension Mild episode of recurrent major depressive disorder- Primary Adenocarcinoma of right lung (HCC) Chronic systolic (congestive) heart failure (HCC) Primary hypertension Unspecified essential hypertension Male erectile dysfunction, unspecified Tobacco dependence Tobacco use disorder Medicare annual wellness visit, subsequent- Primary Tobacco dependence Tobacco use disorder Mild episode of recurrent major depressive disorder Primary hypertension Unspecified essential hypertension Adenocarcinoma of right lung (HCC) Hypokalemia Hypopotassemia [facility] Pre-[facility] evaluation- Primary Preoperative examination, unspecified Liver mass Unspecified disorder of liver Coronary arteriosclerosis Coronary atherosclerosis of unspecified type of vessel, [place] or graft Chronic diastolic CHF (congestive heart failure) (HCC) Chronic diastolic heart failure Aortic valve stenosis, etiology of cardiac valve disease unspecified Thoracic aortic aneurysm without rupture Thoracic aneurysm without mention of rupture Acute [...] unspecified hyperlipidemia type Depression, unspecified depression type Cancer of trachea, bronchus, and lung (HCC)- Primary Malignant neoplasm of other parts of bronchus or lung [facility] Diagnosis Panlobular emphysema (HCC)- Primary Other emphysema Thoracic aortic ectasia (I77.810) Thoracic aortic ectasia Adenocarcinoma of right lung (HCC) Chronic systolic heart failure (HCC) Chronic systolic heart failure Aneurysm of ascending aorta without rupture Hyperlipidemia, unspecified hyperlipidemia type Tobacco dependence Tobacco use disorder Recurrent major depressive disorder, in partial remission Medicare annual wellness visit, subsequent Psychophysiological insomnia Persistent disorder of initiating or maintaining sleep Chronic idiopathic constipation Unspecified constipation Left leg pain- Primary Pain in soft tissues of limb Traumatic injury of head, initial encounter- Primary Panlobular emphysema (HCC) Other emphysema Adenocarcinoma of right lung (HCC) Primary hypertension- Primary Unspecified essential hypertension Hyperlipidemia, unspecified hyperlipidemia type Chronic idiopathic constipation Unspecified constipation Panlobular emphysema (HCC) Other emphysema Hyperlipidemia, unspecified hyperlipidemia type- Primary Panlobular emphysema (HCC) Other emphysema Depression, unspecified Primary hypertension Unspecified essential hypertension Mild episode of recurrent major depressive disorder- Primary Adenocarcinoma of right lung (HCC) Chronic systolic (congestive) heart failure (HCC) Primary hypertension Unspecified essential hypertension Male erectile dysfunction, unspecified Tobacco dependence Tobacco use disorder Medicare annual wellness visit, subsequent- Primary Tobacco dependence Tobacco use disorder Mild episode of recurrent major depressive disorder Primary hypertension Unspecified essential hypertension Adenocarcinoma of right lung (HCC) Mild episode of recurrent major depressive disorder documented in this encounter [facility] Author Paramjit Spring [facility] May 30, 2023 1:25pm Note Date/Time May 30, 2023 1:26pm [facility] EN[facility] [address] [place] [address] Gastroenterology H&P Signed Patient: Alessio Burns MR#: [id number] : 1950 Acct:[id number] Age/Sex: 73 / M Adm Date: 3 Loc: Room: Type: [facility] Attending Dr: Paramjit Spring MD Copies to: [...] Spring MD Documented By: Paramjit Spring MD 05/30/231324 Signed By: <Electronically signed by Paramjit Spring MD> 05/30/23 7545 [facility] Work Phone: History general Narrative - Reported* Type Description Date Surgical History open heart surgery Hospitalization History see above [facility] Other Hospital Discharge instructions Additional Instructions DISCHARGE [...] problems. -Follow up with PCP. -Office number [phone].[facility] Work Phone: InstructionsNot on filedocumented in this encounter [employer] SystemInstructionsNot on filedocumented in this encounter [employer] SystemInstructionsNot on filedocumented in this encounter [employer] SystemInstructionsNot on filedocumented in this encounter [facility]bridSite Web Services SystemReason for referral (narrative)* Diagnostic Procedure Only (Routine) - Pending Review Specialty Diagnoses / Procedures Referred By Efrain espinoza Referred To Contact MOLECULAR & FUNCTIONAL IMAGING Diagnoses Malignant neoplasm of unspecified part of unspecified bronchus or lung (HCC) Procedures NM PET/CT SKULL-THIGH SUBSEQUENT PET IMAGING CT ATTENUATION SKULL BASE MID-THIGH Jaya Bai MD [address] [place] [address] [place] [address] Molecular & Functional Imaging [address] [place], [place] [id number] Referral ID Status Reason Start Date Expiration Date Visits Requested Visits Authorized [id number] Pending Review Auto-Generat ed Referral 02/19/2023 02/07/2024 1 1 [facility] for referral (narrative)* Diagnostic Procedure Only (Routine) - Pending Review Specialty Diagnoses / Procedures Referred By Contac t Referred To Contact MOLECULAR & FUNCTIONAL IMAGING Diagnoses Malignant neoplasm of unspecified part of unspecified bronchus or lung (HCC) Lung nodules Procedures NM PET/CT SKULL-THIGH SUBSEQUENT PET IMAGING CT ATTENUATION SKULL BASE MID-THIGH Jaya Bai MD [address] [place] [address] Molecular & Functional Imaging [address] [place] [address] Referral ID Status Reason Start Date Expiration Date Visits Requested Visits Authorized [id number] Pending Review Auto-Generat ed Referral 06/03/2023 04/01/2024 1 1 [facility] for referral (narrative)* Diagnostic Procedure Only (Routine) - Authorized Specialty Diagnoses / Procedures Referred By Contac t Referred To Contact MOLECULAR & FUNCTIONAL IMAGING Diagnoses Abnormal finding on GI tract imaging Malignant neoplasm of unspecified part of unspecified bronchus or lung (HCC) Procedures NM PET/CT SKULL-THIGH SUBSEQUENT PET IMAGING CT ATTENUATION SKULL BASE MID-THIGH Jaya Bai MD [address] [place] [address] [place] [address] Molecular & Functional Imaging [address] [place], [place] [id number] Referral ID Status Reason Start Date Expiration Date Visits Requested Visits Authorized [id number] Authorized Auto-Generat ed Referral 08/04/2023 06/03/2024 1 1 * Consult, Test, Treat (Routine) - Authorized Specialty Diagnoses / Procedures [facility] Referred To Contact Gastroenterology Diagnoses Abnormal finding on GI tract imaging Procedures CONSULT TO GASTROENTEROLOGY OFFICE/OUTPATIENT [facility] 60-74 MINUTES Jaya Bai MD [facility] [place] [address] Referral ID Status Reason Start Date Expiration Date Visits Requested Visits Authorized [id number] Authorized PCP Requested Referral 05/05/2023 05/04/2024 1 1 [facility] for referral (narrative)* Diagnostic Procedure Only (Routine) - Closed Specialty Diagnoses / Procedures [facility] Referred To Contact MOLECULAR & FUNCTIONAL IMAGING Diagnoses Abnormal finding on GI tract imaging Malignant neoplasm of unspecified part of unspecified bronchus or lung (HCC) Procedures NM PET/CT SKULL-THIGH SUBSEQUENT PET IMAGING CT ATTENUATION SKULL BASE MID-THIGH Jaya Bai MD [facility] [place] [address] Molecular & Functional Imaging [address] [place] [address] Referral ID Status Reason Start Date Expiration Date V isits Requested Visits Authorized [id number] Closed Auto-Generate d Referral 08/04/2023 06/03/2024 1 1 [facility] for referral (narrative)* Diagnostic Procedure Only (Routine) - Closed Specialty Diagnoses / Procedures [facility] Referred To Contact MOLECULAR & FUNCTIONAL IMAGING Diagnoses Malignant neoplasm of unspecified part of unspecified bronchus or lung (HCC) Lung nodules Procedures NM PET/CT SKULL-THIGH SUBSEQUENT PET IMAGING CT ATTENUATION SKULL BASE MID-THIGH Jaya Bai MD [facility] [place] [address] Molecular & Functional Imaging [address] [place] [address] Referral ID Status Reason Start Date Expiration Date V isits Requested Visits Authorized [id number] Closed Auto-Generate d Referral 06/03/2023 04/01/2024 1 1 [facility] for referral (narrative)* Diagnostic Procedure Only (Routine) - Closed Specialty Diagnoses / Procedures Referred By Contac t Referred To Contact MOLECULAR & FUNCTIONAL IMAGING Diagnoses Malignant neoplasm of unspecified part of unspecified bronchus or lung (HCC) Procedures NM PET/CT SKULL-THIGH SUBSEQUENT PET IMAGING CT ATTENUATION SKULL BASE MID-THIGH Jaya Bai MD [address] [place] [address] [place] [address] Molecular & Functional Imaging [address] [place] [address] Referral ID Status Reason Start Date Expiration Date V isits Requested Visits Authorized [id number] Closed Auto-Generate d Referral 02/19/2023 02/07/2024 1 1 [facility] for referral (narrative)* Diagnostic Procedure Only (Routine) - Closed Specialty Diagnoses / Procedures Referred By Contac t Referred To Contact MOLECULAR & FUNCTIONAL IMAGING Diagnoses Lung nodules Malignant neoplasm of unspecified part of unspecified bronchus or lung (HCC) Procedures NM PET/CT SKULL-THIGH SUBSEQUENT PET IMAGING CT ATTENUATION SKULL BASE MID-THIGH Jaya Bai MD [address] [place] [address] [place] [address] Molecular & Functional Imaging [address] [place] [address] Referral ID Status Reason Start Date Expiration Date V isits Requested Visits Authorized [id number] Closed Auto-Generate d Referral 09/15/2022 10/15/2023 1 1 [facility] for visit Narrative* MRI/CT (Routine) - Closed Specialty Diagnoses / Procedures Referred By Contac t Referred To Contact CT IMAGING Diagnoses Malignant neoplasm of upper lobe of right lung (HCC) Procedures CT CHEST W IVCON DIAGNOSTIC COMPUTED TOMOGRAPHY THORAX W/CONTRAST Jaya Bai MD [address] [facility] [place] [address] Phone: tel: fax: [place] [address] Referral ID Status Reason Start Date Expiration Date V isits Requested Visits Authorized [id number] Closed Auto-Generate d Referral 11/07/2024 10/12/2025 1 1 [facility] Summary Purpose Family History Relationship Condition Age at Onset Recorded Date/T han father Malignant neoplasm Unknown Relationship Condition Age at Onset Recorded Date/T han father Malignant neoplasm of lung Unknown sister Diabetes mellitus Unknown Relationship Condition Age at Onset Recorded Date/T han father Malignant neoplasm of lung Unknown sister Diabetes mellitus Unknown father Unknown mother Unknown Advance Directives Documents on File Type Date Recorded 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 Advance Directive(s) 12/29/2021 9:19 AM Documents on File Type Date Recorded 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 Advance Directive(s) 12/29/2021 9:19 AM Advance Directive Response Recorded Date/ Time Advance Directives No April 16, 2021 11:51am Advance Directive Response Recorded Date/ Time Advance Directives No April 16, 2021 10:51am Reason for Referral Specialty Diagnoses / Procedures Referred By Contac t Referred To Contact CT IMAGING Diagnoses Malignant neoplasm of unspecified part of unspecified bronchus or lung (HCC) Cancer of trachea, bronchus, and lung (HCC) Panlobular emphysema (HCC) Procedures CT CHEST W IVCON DIAGNOSTIC COMPUTED TOMOGRAPHY THORAX W/CONTRAST Jaya Bai MD [address] [facility] [place] [address] Ct Imaging Referral ID Status Reason Start Date Expiration Date Visits Requested Visits Authorized [id number] Pending Review Auto-Generat ed Referral 03/30/2022 04/01/2023 1 1 Specialty Diagnoses / Procedures Referred By Contac t Referred To Contact CT IMAGING Diagnoses Malignant neoplasm of unspecified part of unspecified bronchus or lung (HCC) Procedures CT CHEST W IVCON DIAGNOSTIC COMPUTED TOMOGRAPHY THORAX W/CONTRAST Jaya Bai MD [address] [place] [address] Ct Imaging Referral ID Status Reason Start Date Expiration Date Visits Requested Visits Authorized [id number] Pending Review Auto-Generat ed Referral 05/03/2023 1 1 Specialty Diagnoses / Procedures Referred By Contac t Referred To Contact CT IMAGING Diagnoses Cancer of trachea, bronchus, and lung (HCC) Lung nodules Procedures CT CHEST W IVCON DIAGNOSTIC COMPUTED TOMOGRAPHY THORAX W/CONTRAST Jaya Bai MD [address] [place] [address] [place] [address] Ct Imaging Referral ID Status Reason Start Date Expiration Date Visits Requested Visits Authorized [id number] Authorized Auto-Generat ed Referral 09/15/2022 08/20/2023 1 1 Specialty Diagnoses / Procedures Referred By Contac t Referred To Contact CT IMAGING Diagnoses Malignant neoplasm of unspecified part of unspecified bronchus or lung (HCC) Procedures CT CHEST W IVCON DIAGNOSTIC COMPUTED TOMOGRAPHY THORAX W/CONTRAST Jaya Bai MD [address] [place] [address] [place] [address] [place] [address] Referral ID Status Reason Start Date Expiration Date Visits Requested Visits Authorized [id number] Authorized Auto-Generat ed Referral 11/10/2023 09/09/2024 1 1 Specialty Diagnoses / Procedures Referred By Contac t Referred To Contact CT IMAGING Diagnoses Malignant neoplasm of upper lobe of right lung (HCC) Procedures CT CHEST W IVCON DIAGNOSTIC COMPUTED TOMOGRAPHY THORAX W/CONTRAST Jaya Bai MD [address] [facility] [place] [address] [place] [address] Referral ID Status Reason Start Date Expiration Date Visits Requested Visits Authorized [id number] Authorized Auto-Generat ed Referral 02/17/2024 12/16/2024 1 1 Specialty Diagnoses / Procedures Referred By Contac t Referred To Contact CT IMAGING Diagnoses Lower abdominal pain Malignant neoplasm of upper lobe of right lung (HCC) Procedures CT ABD/PEL W IVCON CT ABD & PELVIS W/CONTRAST Jaya Bai MD [address] [place], [place] [address] [address] [place] [address] Referral ID Status Reason Start Date Expiration Date Visits Requested Visits Authorized [id number] Authorized Auto-Generat ed Referral 02/17/2024 12/16/2024 1 1 Specialty Diagnoses / Procedures [facility] Contact CT IMAGING Diagnoses Lung nodules Malignant neoplasm of unspecified part of unspecified bronchus or lung (HCC) Procedures CT CHEST W IVCON DIAGNOSTIC COMPUTED TOMOGRAPHY THORAX W/CONTRAST Jaya Bai MD [address] [place] [address] [place] [address] Ct Imaging [id number] Referral ID Status Reason Start Date Expiration Date Visits Requested Visits Authorized [id number] Authorized Auto-Generat ed Referral 04/12/2024 03/31/2025 1 1 Specialty Diagnoses / Procedures [facility] Ref[facility] To Contact CT IMAGING Diagnoses Malignant neoplasm of unspecified part of unspecified bronchus or lung (HCC) Abnormal finding on GI tract imaging Procedures CT CHEST W IVCON DIAGNOSTIC COMPUTED TOMOGRAPHY THORAX W/CONTRAST Jaya Bai MD [address] [place] [address] [place] [address] Ct Imaging [id number] Referral ID Status Reason Start Date Expiration Date Visits Requested Visits Authorized [id number] New Request Auto-Generat ed Referral 05/18/2025 1 1 Specialty Diagnoses / Procedures Referred By [facility] Referred To Contact CT IMAGING Diagnoses Malignant neoplasm of unspecified part of unspecified bronchus or lung (HCC) Abnormal finding on GI tract imaging Malignant neoplasm of lung, unspecified laterality, unspecified part of lung (HCC) Procedures CT ABD/PEL W IVCON CT ABD & PELVIS W/CONTRAST Jaya Bai MD [address] [place] [address] [place] [address] Ct Imaging [id number] Referral ID Status Reason Start Date Expiration Date Visits Requested Visits Authorized [id number] New Request Auto-Generat ed Referral 05/18/2025 1 1 Referral ID Status Reason Start Date Expiration Date V isits Requested Visits Authorized [id number] Closed Auto-Generate d Referral 04/12/2024 03/31/2025 1 1 Referral ID Status Reason Start Date Expiration Date V isits Requested Visits Authorized [id number] Closed Auto-Generate d Referral 02/17/2024 12/16/2024 1 1 Referral ID Status Reason Start Date Expiration Date V isits Requested Visits Authorized [id number] Closed Auto-Generate d Referral 02/17/2024 12/16/2024 1 1 Referral ID Status Reason Start Date Expiration Date V isits Requested Visits Authorized [id number] Closed Auto-Generate d Referral 11/10/2023 09/09/2024 1 1 Referral ID Status Reason Start Date Expiration Date V isits Requested Visits Authorized [id number] Closed Auto-Generate d Referral 11/14/2022 10/19/2023 1 1 Specialty Diagnoses / Procedures Referred By [facility] Referred To Contact CT IMAGING Diagnoses Malignant neoplasm of unspecified part of unspecified bronchus or lung (HCC) Malignant neoplasm of overlapping sites of right lung (HCC) Procedures CT ABD/PEL W IVCON CT ABD & PELVIS W/CONTRAST Jaya Bai MD [address] [place] [address] Ct Imaging [place] [address] Referral ID Status Reason Start Date Expiration Date V isits Requested Visits Authorized [id number] Closed Auto-Generate d Referral 11/14/2022 10/19/2023 1 1 Specialty Diagnoses / Procedures Referred By [facility] Referred To Contact CT IMAGING Diagnoses Cancer of trachea, bronchus, and lung (HCC) Lung nodules Procedures CT CHEST W IVCON DIAGNOSTIC COMPUTED TOMOGRAPHY THORAX W/CONTRAST Jaya Bai MD [address] [place] [address] Ct Imaging [id number] Referral ID Status Reason Start Date Expiration Date V isits Requested Visits Authorized [id number] Closed Auto-Generate d Referral 09/15/2022 08/20/2023 1 1 Referral ID Status Reason Start Date Expiration Date V isits Requested Visits Authorized [id number] Closed Auto-Generate d Referral 08/03/2022 05/03/2023 1 1 Specialty Diagnoses / Procedures Referred By [facility] Referred To Contact CT IMAGING Diagnoses Malignant neoplasm of unspecified part of unspecified bronchus or lung (HCC) Cancer of trachea, bronchus, and lung (HCC) Panlobular emphysema (HCC) Procedures CT CHEST W IVCON DIAGNOSTIC COMPUTED TOMOGRAPHY THORAX W/CONTRAST Jaya Bai MD [address] [place] [address] [place] [address] Referral ID Status Reason Start Date Expiration Date V isits Requested Visits Authorized [id number] Closed Auto-Generate d Referral 03/30/2022 04/01/2023 1 1 Specialty Diagnoses / Procedures Referred By [facility] Referred To Contact CT IMAGING Diagnoses Enlarged lymph node Cancer of trachea, bronchus, and lung (HCC) Procedures CT LIVER/PELVIS W IVCON CT ABD & PELVIS W/CONTRAST Jaya Bai MD [address] [place] [address] [place] [address] Referral ID Status Reason Start Date Expiration Date V isits Requested Visits Authorized [id number] Closed Auto-Generate d Referral 12/10/2021 11/28/2022 1 1 Specialty Diagnoses / Procedures Referred By [facility] Referred To Contact CT IMAGING Diagnoses Enlarged lymph node Procedures CT CHEST W IVCON CAT SCAN OF CHEST CONTRAST Glenna Cabrera, CLINICAL APPEALS SPECIALIST.BOLOGNA LACER [address] [place] [address] [place] [address] Referral ID Status Reason Start Date Expiration Date V isits Requested Visits Authorized [id number] Closed Auto-Generate d Referral 06/25/2021 07/25/2022 1 1 Specialty Diagnoses / Procedures Referred By [facility] Referred To Contact CT IMAGING Diagnoses Enlarged lymph node Procedures CT ABD/PEL W IVCON CT ABD & PELVIS W/CONTRAST Glenna Cabrera, CLINICAL APPEALS SPECIALIST.BOLOGNA LACER [address] [place] [address] [place] [address] Referral ID Status Reason Start Date Expiration Date V isits Requested Visits Authorized [id number] Closed Auto-Generate d Referral 06/25/2021 07/25/2022 1 1 Specialty Diagnoses / Procedures Referred By [facility] Referred To Contact CT IMAGING Diagnoses Malignant neoplasm of unspecified part of unspecified bronchus or lung (HCC) Abnormal finding on GI tract imaging Lung nodules Non-caseating granuloma Procedures CT CHEST W IVCON DIAGNOSTIC COMPUTED TOMOGRAPHY THORAX W/CONTRAST Jaya Bai MD [address] [place] [address] [place] [address] [place] [address] Referral ID Status Reason Start Date Expiration Date Visits Requested Visits Authorized [id number] Authorized Auto-Generat ed Referral 09/11/2024 08/23/2025 1 1 Referral ID Status Reason Start Date Expiration Date V isits Requested Visits Authorized [id number] Closed Auto-Generate d Referral 09/11/2024 08/23/2025 1 1 Referral ID Status Reason Start Date Expiration Date Visits Requested Visits Authorized [id number] Authorized Auto-Generat ed Referral 11/07/2024 10/12/2025 1 1 Specialty Diagnoses / Procedures Referred By Efrain espinoza Referred To Contact CT IMAGING Diagnoses Malignant neoplasm of upper lobe of right lung (HCC) Procedures CT ABD/PEL W IVCON CT ABD & PELVIS W/CONTRAST Jaya Bai MD [address] [place] [address] [place] [address] [place] [address] Referral ID Status Reason Start Date Expiration Date Visits Requested Visits Authorized [id number] Authorized Auto-Generat ed Referral 11/07/2024 10/12/2025 1 1 Chief Complaint and Reason for Visit Chief Complaint Hx of Colon Polyps Hx of Colon Polyps Reason for Visit Personal history of colonic polyps Chief Complaint Abnormal Finding on GI Tract Chief Complaint Admit Date 2 month f/u-constipation July 22, 2024 1:56pm 3 month follow up October 16, 2024 1:35pm Reason for Visit Admit Date GERD (gastroesophageal reflux disease) N ovember 2023 1:56pm Irritable bowel syndrome with constipati on July 22, 2024 1:56pm Additional Source Comments (unrecognized sect ion and content) No Status Records FoundNo Status Records FoundNo Status Records FoundNo Status Records FoundNo Status Records FoundNo Status Records FoundNo Status Records FoundNo Status Records FoundNo Status Records Found INFORMATION SOURCE (unrecogn ized section and content) DATE CREATED AUTHOR 09/24/2021 [facility] DATE CREATED AUTHOR AUTHOR'S ORGANIZ ATION 01/19/2022 [facility] DATE CREATED AUTHOR AUTHOR'S ORGANIZ ATION 01/13/2023 [facility] DATE CREATED AUTHOR AUTHOR'S ORGANIZ ATION 06/07/2023 [facility] DATE CREATED AUTHOR AUTHOR'S ORGANIZ ATION 02/15/2025 [facility] DATE CREATED AUTHOR AUTHOR'S ORGANIZ ATION 02/23/2025 [facility] DATE CREATED AUTHOR AUTHOR'S ORGANIZ ATION 02/23/2025 [facility] DATE CREATED AUTHOR AUTHOR'S ORGANIZ ATION 03/29/2025 [facility] DATE CREATED AUTHOR AUTHOR'S ORGANIZ ATION 04/01/2025 [facility] Source Comments (unrecognize d section and content) In the event this informatio n is protected by the Federal Confidentiality of Alcohol and Drug Abuse Patient Records regulations: The Federal rules restrict any use of the information to criminally investigate or prosecute any alcohol or drug abuse patient.[facility] the event this information is protected by the Federal Confidentiality of Alcohol and Drug Abuse Patient Records regulations: The Federal rules restrict any use of the information to criminally investigate or prosecute any alcohol or drug abuse patient.[facility] the event this information is protected by the Federal Confidentiality of Alcohol and Drug Abuse Patient Records regulations: The Federal rules restrict any use of the information to criminally investigate or prosecute any alcohol or drug abuse patient.[facility] the event this information is protected by the Federal Confidentiality of Alcohol and Drug Abuse Patient Records regulations: The Federal rules restrict any use of the information to criminally investigate or prosecute any alcohol or drug abuse patient.[facility] Center[facility] the event this information is protected by the Federal Confidentiality of Alcohol and Drug Abuse Patient Records regulations: The Federal rules restrict any use of the information to criminally investigate or prosecute any alcohol or drug abuse patient.[facility] CenterIn the event this information is protected by the Federal Confidentiality of Alcohol and Drug Abuse Patient Records regulations: The Federal rules restrict any use of the information to criminally investigate or prosecute any alcohol or drug abuse patient.[facility] Center[facility] the event this information is protected by the Federal Confidentiality of Alcohol and Drug Abuse Patient Records regulations: The Federal rules restrict any use of the information to criminally investigate or prosecute any alcohol or drug abuse patient.[facility] Center[facility] the event this information is protected by the Federal Confidentiality of Alcohol and Drug Abuse Patient Records regulations: The Federal rules restrict any use of the information to criminally investigate or prosecute any alcohol or drug abuse patient.[facility] Center[facility] the event this information is protected by the Federal Confidentiality of Alcohol and Drug Abuse Patient Records regulations: The Federal rules restrict any use of the information to criminally investigate or prosecute any alcohol or drug abuse patient.[facility] Center[facility] the event this information is protected by the Federal Confidentiality of Alcohol and Drug Abuse Patient Records regulations: The Federal rules restrict any use of the information to criminally investigate or prosecute any alcohol or drug abuse patient.[facility] CenterIn the event this information is protected by the Federal Confidentiality of Alcohol and Drug Abuse Patient Records regulations: The Federal rules restrict any use of the information to criminally investigate or prosecute any alcohol or drug abuse patient.[facility] the event this information is protected by the Federal Confidentiality of Alcohol and Drug Abuse Patient Records regulations: The Federal rules restrict any use of the information to criminally investigate or prosecute any alcohol or drug abuse patient.[facility] CenterIn the event this information is protected by the Federal Confidentiality of Alcohol and Drug Abuse Patient Records regulations: The Federal rules restrict any use of the information to criminally investigate or prosecute any alcohol or drug abuse patient.[facility] CenterIn the event this information is protected by the Federal Confidentiality of Alcohol and Drug Abuse Patient Records regulations: The Federal rules restrict any use of the information to criminally investigate or prosecute any alcohol or drug abuse patient.[facility] the event this information is protected by the Federal Confidentiality of Alcohol and Drug Abuse Patient Records regulations: The Federal rules restrict any use of the information to criminally investigate or prosecute any alcohol or drug abuse patient.[facility] CenterIn the event this information is protected by the Federal Confidentiality of Alcohol and Drug Abuse Patient Records regulations: The Federal rules restrict any use of the information to criminally investigate or prosecute any alcohol or drug abuse patient.[facility] CenterIn the event this information is protected by the Federal Confidentiality of Alcohol and Drug Abuse Patient Records regulations: The Federal rules restrict any use of the information to criminally investigate or prosecute any alcohol or drug abuse patient.[facility] CenterIn the event this information is protected by the Federal Confidentiality of Alcohol and Drug Abuse Patient Records regulations: The Federal rules restrict any use of the information to criminally investigate or prosecute any alcohol or drug abuse patient.[facility] CenterIn the event this information is protected by the Federal Confidentiality of Alcohol and Drug Abuse Patient Records regulations: The Federal rules restrict any use of the information to criminally investigate or prosecute any alcohol or drug abuse patient.[facility] CenterIn the event this information is protected by the Federal Confidentiality of Alcohol and Drug Abuse Patient Records regulations: The Federal rules restrict any use of the information to criminally investigate or prosecute any alcohol or drug abuse patient.[facility] CenterIn the event this information is protected by the Federal Confidentiality of Alcohol and Drug Abuse Patient Records regulations: The Federal rules restrict any use of the information to criminally investigate or prosecute any alcohol or drug abuse patient.[facility] CenterIn the event this information is protected by the Federal Confidentiality of Alcohol and Drug Abuse Patient Records regulations: The Federal rules restrict any use of the information to criminally investigate or prosecute any alcohol or drug abuse patient.[facility] CenterIn the event this information is protected by the Federal Confidentiality of Alcohol and Drug Abuse Patient Records regulations: The Federal rules restrict any use of the information to criminally investigate or prosecute any alcohol or drug abuse patient.[facility] CenterIn the event this information is protected by the Federal Confidentiality of Alcohol and Drug Abuse Patient Records regulations: The Federal rules restrict any use of the information to criminally investigate or prosecute any alcohol or drug abuse patient.[facility] CenterIn the event this information is protected by the Federal Confidentiality of Alcohol and Drug Abuse Patient Records regulations: The Federal rules restrict any use of the information to criminally investigate or prosecute any alcohol or drug abuse patient.[facility] CenterIn the event this information is protected by the Federal Confidentiality of Alcohol and Drug Abuse Patient Records regulations: The Federal rules restrict any use of the information to criminally investigate or prosecute any alcohol or drug abuse patient.[facility] CenterIn the event this information is protected by the Federal Confidentiality of Alcohol and Drug Abuse Patient Records regulations: The Federal rules restrict any use of the information to criminally investigate or prosecute any alcohol or drug abuse patient.[facility] CenterIn the event this information is protected by the Federal Confidentiality of Alcohol and Drug Abuse Patient Records regulations: The Federal rules restrict any use of the information to criminally investigate or prosecute any alcohol or drug abuse patient.[facility] CenterIn the event this information is protected by the Federal Confidentiality of Alcohol and Drug Abuse Patient Records regulations: The Federal rules restrict any use of the information to criminally investigate or prosecute any alcohol or drug abuse patient.[facility] CenterIn the event this information is protected by the Federal Confidentiality of Alcohol and Drug Abuse Patient Records regulations: The Federal rules restrict any use of the information to criminally investigate or prosecute any alcohol or drug abuse patient.[facility] CenterIn the event this information is protected by the Federal Confidentiality of Alcohol and Drug Abuse Patient Records regulations: The Federal rules restrict any use of the information to criminally investigate or prosecute any alcohol or drug abuse patient.[facility] CenterIn the event this information is protected by the Federal Confidentiality of Alcohol and Drug Abuse Patient Records regulations: The Federal rules restrict any use of the information to criminally investigate or prosecute any alcohol or drug abuse patient.[facility] CenterIn the event this information is protected by the Federal Confidentiality of Alcohol and Drug Abuse Patient Records regulations: The Federal rules restrict any use of the information to criminally investigate or prosecute any alcohol or drug abuse patient.[facility] CenterIn the event this information is protected by the Federal Confidentiality of Alcohol and Drug Abuse Patient Records regulations: The Federal rules restrict any use of the information to criminally investigate or prosecute any alcohol or drug abuse patient.[facility] CenterIn the event this information is protected by the Federal Confidentiality of Alcohol and Drug Abuse Patient Records regulations: The Federal rules restrict any use of the information to criminally investigate or prosecute any alcohol or drug abuse patient.[facility] CenterIn the event this information is protected by the Federal Confidentiality of Alcohol and Drug Abuse Patient Records regulations: The Federal rules restrict any use of the information to criminally investigate or prosecute any alcohol or drug abuse patient.[facility] CenterIn the event this information is protected by the Federal Confidentiality of Alcohol and Drug Abuse Patient Records regulations: The Federal rules restrict any use of the information to criminally investigate or prosecute any alcohol or drug abuse patient.[facility] CenterIn the event this information is protected by the Federal Confidentiality of Alcohol and Drug Abuse Patient Records regulations: The Federal rules restrict any use of the information to criminally investigate or prosecute any alcohol or drug abuse patient.[facility] CenterIn the event this information is protected by the Federal Confidentiality of Alcohol and Drug Abuse Patient Records regulations: The Federal rules restrict any use of the information to criminally investigate or prosecute any alcohol or drug abuse patient.[facility] CenterIn the event this information is protected by the Federal Confidentiality of Alcohol and Drug Abuse Patient Records regulations: The Federal rules restrict any use of the information to criminally investigate or prosecute any alcohol or drug abuse patient.[facility] CenterIn the event this information is protected by the Federal Confidentiality of Alcohol and Drug Abuse Patient Records regulations: The Federal rules restrict any use of the information to criminally investigate or prosecute any alcohol or drug abuse patient.[facility] CenterIn the event this information is protected by the Federal Confidentiality of Alcohol and Drug Abuse Patient Records regulations: The Federal rules restrict any use of the information to criminally investigate or prosecute any alcohol or drug abuse patient.[facility] CenterIn the event this information is protected by the Federal Confidentiality of Alcohol and Drug Abuse Patient Records regulations: The Federal rules restrict any use of the information to criminally investigate or prosecute any alcohol or drug abuse patient.[facility] CenterIn the event this information is protected by the Federal Confidentiality of Alcohol and Drug Abuse Patient Records regulations: The Federal rules restrict any use of the information to criminally investigate or prosecute any alcohol or drug abuse patient.[facility] CenterIn the event this information is protected by the Federal Confidentiality of Alcohol and Drug Abuse Patient Records regulations: The Federal rules restrict any use of the information to criminally investigate or prosecute any alcohol or drug abuse patient.[facility] CenterIn the event this information is protected by the Federal Confidentiality of Alcohol and Drug Abuse Patient Records regulations: The Federal rules restrict any use of the information to criminally investigate or prosecute any alcohol or drug abuse patient.[facility] CenterIn the event this information is protected by the Federal Confidentiality of Alcohol and Drug Abuse Patient Records regulations: The Federal rules restrict any use of the information to criminally investigate or prosecute any alcohol or drug abuse patient.[facility] CenterIn the event this information is protected by the Federal Confidentiality of Alcohol and Drug Abuse Patient Records regulations: The Federal rules restrict any use of the information to criminally investigate or prosecute any alcohol or drug abuse patient.[facility] CenterIn the event this information is protected by the Federal Confidentiality of Alcohol and Drug Abuse Patient Records regulations: The Federal rules restrict any use of the information to criminally investigate or prosecute any alcohol or drug abuse patient.[facility] CenterIn the event this information is protected by the Federal Confidentiality of Alcohol and Drug Abuse Patient Records regulations: The Federal rules restrict any use of the information to criminally investigate or prosecute any alcohol or drug abuse patient.[facility] CenterIn the event this information is protected by the Federal Confidentiality of Alcohol and Drug Abuse Patient Records regulations: The Federal rules restrict any use of the information to criminally investigate or prosecute any alcohol or drug abuse patient.[facility] CenterIn the event this information is protected by the Federal Confidentiality of Alcohol and Drug Abuse Patient Records regulations: The Federal rules restrict any use of the information to criminally investigate or prosecute any alcohol or drug abuse patient.[facility] CenterIn the event this information is protected by the Federal Confidentiality of Alcohol and Drug Abuse Patient Records regulations: The Federal rules restrict any use of the information to criminally investigate or prosecute any alcohol or drug abuse patient.[facility] Reason for Visit (unrecogniz ed section and content) Reason Comments Radiology NM Specialty Diagnoses / Procedures Referred By Contac t Referred To Contact MOLECULAR & FUNCTIONAL IMAGING Diagnoses Lung nodules Malignant neoplasm of unspecified part of unspecified bronchus or lung (HCC) Procedures NM PET/CT SKULL-THIGH SUBSEQUENT PET IMAGING CT ATTENUATION SKULL BASE MID-THIGH Jaya Bai MD [facility] [place] [address] Molecular & Functional Imaging [address] [place] [address] Referral ID Status Reason Start Date Expiration Date V isits Requested Visits Authorized [id number] Closed Auto-Generate d Referral 09/15/2022 10/15/2023 1 1 Specialty Diagnoses / Procedures Referred By Contac t Referred To Contact CT IMAGING Diagnoses Cancer of trachea, bronchus, and lung (HCC) Lung nodules Procedures CT CHEST W IVCON DIAGNOSTIC COMPUTED TOMOGRAPHY THORAX W/CONTRAST Jaya Bai MD [address] [place] [address] [place] [address] Ct Imaging [place] [address] Referral ID Status Reason Start Date Expiration Date V isits Requested Visits Authorized [id number] Closed Auto-Generate d Referral 09/15/2022 08/20/2023 1 1 Specialty Diagnoses / Procedures Referred By Contac t Referred To Contact MOLECULAR & FUNCTIONAL IMAGING Diagnoses Malignant neoplasm of unspecified part of unspecified bronchus or lung (HCC) Lung nodules Procedures NM PET/CT SKULL-THIGH SUBSEQUENT PET IMAGING CT ATTENUATION SKULL BASE MID-THIGH Jaya Bai MD [facility] [place] [address] Molecular & Functional Imaging [address] [place] [address] Referral ID Status Reason Start Date Expiration Date V isits Requested Visits Authorized [id number] Closed Auto-Generate d Referral 06/03/2023 04/01/2024 [address] Specialty Diagnoses / Procedures Referred By Contac t Referred To Contact MOLECULAR & FUNCTIONAL IMAGING Diagnoses Abnormal finding on GI tract imaging Malignant neoplasm of unspecified part of unspecified bronchus or lung (HCC) Procedures NM PET/CT SKULL-THIGH SUBSEQUENT PET IMAGING CT ATTENUATION SKULL BASE MID-THIGH Jaya Bai MD [address] [place] [address] [place] [address] Molecular & Functional Imaging [address] [place], [place] [id number] Referral ID Status Reason Start Date Expiration Date V isits Requested Visits Authorized [id number] Closed Auto-Generate d Referral 08/04/2023 06/03/2024 1 1 Reason Comments Established Patient Reason Comments Appointment [...] Reason Comments Orders Reason Comments Med Refill Specialty Diagnoses / Procedures Referred By Contac t Referred To Contact CT IMAGING Diagnoses Lung nodules Malignant neoplasm of unspecified part of unspecified bronchus or lung (HCC) Procedures CT CHEST W IVCON DIAGNOSTIC COMPUTED TOMOGRAPHY THORAX W/CONTRAST Jaya Bai MD [address] [place] [address] [place] [address] Ct Imaging [place] [address] Referral ID Status Reason Start Date Expiration Date V isits Requested Visits Authorized [id number] Closed Auto-Generate d Referral 04/12/2024 03/31/2025 [address] Specialty Diagnoses / Procedures Referred By Contac t Referred To Contact CT IMAGING Diagnoses Lower abdominal pain Malignant neoplasm of upper lobe of right lung (HCC) Procedures CT ABD/PEL W IVCON CT ABD & PELVIS W/CONTRAST Jaya Bai MD [address] [place] [address] [place] [address] Ct Imaging [id number] Referral ID Status Reason Start Date Expiration Date V isits Requested Visits Authorized [id number] Closed Auto-Generate d Referral 02/17/2024 12/16/2024 1 1 Specialty Diagnoses / Procedures Referred By Contac t Referred To Contact CT IMAGING Diagnoses Malignant neoplasm of unspecified part of unspecified bronchus or lung (HCC) Procedures CT CHEST W IVCON DIAGNOSTIC COMPUTED TOMOGRAPHY THORAX W/CONTRAST Jaya Bai MD [address] [place] [address] [place] [address] Ct Imaging [place] [address] Referral ID Status Reason Start Date Expiration Date V isits Requested Visits Authorized [id number] Closed Auto-Generate d Referral 11/10/2023 09/09/2024 1 1 Specialty Diagnoses / Procedures Referred By Contac t Referred To Contact MOLECULAR & FUNCTIONAL IMAGING Diagnoses Malignant neoplasm of unspecified part of unspecified bronchus or lung (HCC) Procedures NM PET/CT SKULL-THIGH SUBSEQUENT PET IMAGING CT ATTENUATION SKULL BASE MID-THIGH Jaya Bai MD [address] [place] [address] [place] [address] Molecular & Functional Imaging [address] [place] [address] Referral ID Status Reason Start Date Expiration Date V isits Requested Visits Authorized [id number] Closed Auto-Generate d Referral 02/19/2023 02/07/2024 1 1 Referral ID Status Reason Start Date Expiration Date V isits Requested Visits Authorized [id number] Closed Auto-Generate d Referral 11/14/2022 10/19/2023 1 1 Referral ID Status Reason Start Date Expiration Date V isits Requested Visits Authorized [id number] Closed Auto-Generate d Referral 08/03/2022 05/03/2023 1 1 Specialty Diagnoses / Procedures Referred By Contac t Referred To Contact CT IMAGING Diagnoses Malignant neoplasm of unspecified part of unspecified bronchus or lung (HCC) Cancer of trachea, bronchus, and lung (HCC) Panlobular emphysema (HCC) Procedures CT CHEST W IVCON DIAGNOSTIC COMPUTED TOMOGRAPHY THORAX W/CONTRAST Jaya Bai MD [address] [place] [address] [place] [address] Ct Imaging [id number] Referral ID Status Reason Start Date Expiration Date V isits Requested Visits Authorized [id number] Closed Auto-Generate d Referral 03/30/2022 04/01/2023 1 1 Specialty Diagnoses / Procedures Referred By Contac t Referred To Contact CT IMAGING Diagnoses Enlarged lymph node Cancer of trachea, bronchus, and lung (HCC) Procedures CT LIVER/PELVIS W IVCON CT ABD & PELVIS W/CONTRAST Jaya Bai MD [address] [place] [address] [place] [address] [place] [address] Referral ID Status Reason Start Date Expiration Date V isits Requested Visits Authorized [id number] Closed Auto-Generate d Referral 12/10/2021 11/28/2022 1 1 Specialty Diagnoses / Procedures Referred By Contac t Referred To Contact CT IMAGING Diagnoses Enlarged lymph node Procedures CT CHEST W IVCON CAT SCAN OF CHEST CONTRAST Glenna Cabrera, CLINICAL APPEALS SPECIALIST.BOLOGNA LACER [address] [facility] [place] [address] Ct Imaging [id number] Referral ID Status Reason Start Date Expiration Date V isits Requested Visits Authorized [id number] Closed Auto-Generate d Referral 06/25/2021 07/25/2022 [address] Specialty Diagnoses / Procedures Referred By Contac t Referred To Contact CT IMAGING Diagnoses Malignant neoplasm of unspecified part of unspecified bronchus or lung (HCC) Abnormal finding on GI tract imaging Procedures CT CHEST W IVCON DIAGNOSTIC COMPUTED TOMOGRAPHY THORAX W/CONTRAST Jaya Bai MD [address] [place] [address] [place] [address] [place] [address] Referral ID Status Reason Start Date Expiration Date V isits Requested Visits Authorized [id number] Closed Auto-Generate d Referral 07/19/2024 05/18/2025 1 1 Reason Comments Lung Cancer 3 month follow up Reason Onset Date Comments Med Refill 08/06/2024 Reason Onset Date Comments Med Refill 05/15/2024 Reason Onset Date Comments Med Refill 05/21/2024 Reason Onset Date Comments Med Refill 05/14/2024 Reason Comments Follow-up 3m Specialty Diagnoses / Procedures Referred By Contac t Referred To Contact CT IMAGING Diagnoses Malignant neoplasm of unspecified part of unspecified bronchus or lung (HCC) Abnormal finding on GI tract imaging Lung nodules Non-caseating granuloma Procedures CT CHEST W IVCON DIAGNOSTIC COMPUTED TOMOGRAPHY THORAX W/CONTRAST Jaya Bai MD [address] [place] [address] [place] [address] [place] [address] Referral ID Status Reason Start Date Expiration Date V isits Requested Visits Authorized [id number] Closed Auto-Generate d Referral 09/11/2024 08/23/2025 1 1 Reason Onset Date Comments Med Refill 09/27/2024 Reason Onset Date Comments Med Refill 10/01/2024 Reason Comments Follow-up CT: 09/15/2022FT: 1 09/30/2022 COPD Reason Onset Date Comments Med Refill 10/15/2024 Specialty Diagnoses / Procedures Referred By Contfredis t Referred To Contact CT IMAGING Diagnoses Malignant neoplasm of upper lobe of right lung (HCC) Procedures CT CHEST W IVCON DIAGNOSTIC COMPUTED TOMOGRAPHY THORAX W/CONTRAST Jaya Bai MD [address] [place] [address] [place] [address] Phone: tel: fax: [place] [address] Referral ID Status Reason Start Date Expiration Date V isits Requested Visits Authorized [id number] Closed Auto-Generate d Referral 11/07/2024 10/12/2025 1 1 Reason Comments Hypertension Reason Onset Date Comments Med Refill 01/13/2025 Reason Onset Date Comments Med Refill 01/14/2025 Reason Comments Medicare Annual Wellness Visit Initial Reason Comments Follow-up PFT: 02/18/2025 COPD Reason Onset Date Comments Med Refill 04/07/2025 Care Teams (unrecognized sec tion and content) Team Status: Active Member Role Status Dates Shaikh Lowell MD Primary Care Provider Active Team Status: Inactive Member Role Status Dates Shaikh Lowell MD Primary Care Provider Active Paramjit Spring MD Attending Provider Active System Specialist Relationship Specialty Start Date End Date Shaikh Etienne MD [address] [place] [address] PCP - General Primary Care 5/12/21 System Specialist Relationship Specialty Start Date End Date Shaikh Etienne MD [address] [place] [address] PCP - General Primary Care 01/13/21 Sydnie Ambrosio MD [address] [place] [address] [employer]ner Cardiology 01/04/22 System Specialist Relationship Specialty Start Date End Date Shaikh Etienne MD [address] [place] [address] PCP - General Primary Care 01/13/21 Sydnie Ambrosio MD [address] [place] [address] [employer]ner Cardiology 01/04/22 System Specialist Relationship Specialty Start Date End Date Shaikh Etienne MD [address] [place] [address] PCP - General Primary Care 01/13/21 Sydnie Ambrosio MD [address] [place] [address] Sl[employer] Runner Cardiology 01/04/22 System Specialist Relationship Specialty Start Date End Date Shaikh Etienne MD [address] [place] [address] PCP - General Primary Care 01/13/21 Sydnie Ambrosio MD [address] [place] [address] [employer]ner Cardiology 01/04/22 System Specialist Relationship Specialty Start Date End Date Shaikh Etienne MD [address] [place] [address] PCP - General Primary Care 01/13/21 Sydnie Ambrosio MD [address] [place] [address] [employer]ner Cardiology 01/04/22 System Specialist Relationship Specialty Start Date End Date Shaikh Etienne MD [address] [place] [address] PCP - General Primary Care 01/13/21 Sydnie Ambrosio MD [address] [place] [address] [employer]ner Cardiology 01/04/22 Team Status: Inactive Member Role Status Dates Shaikh Lowell MD Primary Care Provider Active Krzysztof Queen DO Attending Provider Active System Specialist Relationship Specialty Start Date End Date Shaikh Etienne MD [address] [place] [address] PCP - General Primary Care 01/13/21 Sydnie Ambrosio MD [address] [place] [address] [employer]ner Cardiology 01/04/22 Maliha Lentz, DO [address] [place] [address] Internal Medicine 09/15/22 System Specialist Relationship Specialty Start Date End Date Shaikh Etienne MD [address] [place] [address] PCP - General Primary Care 01/13/21 Sydnie Ambrosio MD [address] [place] [address] Sl[employer] Runner Cardiology 01/04/22 Maliha Lentz, DO [address] [place] [address], [place] [address] Internal Medicine 09/15/22 System Specialist Relationship Specialty Start Date End Date Shaikh Etienne MD [address] [place] [address] PCP - General Primary Care 01/13/21 Sydnie Ambrosio MD [address] [place] [address] Slubber Runner Cardiology 01/04/22 Maliha Lentz, DO [address] [place], [place] [address] [address] Internal Medicine 09/15/22 System Specialist Relationship Specialty Start Date End Date Shaikh Etienne MD [address] [place] [address] PCP - General Primary Care 01/13/21 Sydnie Ambrosio MD [address] [place] [address] Sl[employer]ber [employer]ner Cardiology 01/04/22 Maliha Lentz, DO [address] [place], [place] [address] [address] Internal Medicine 09/15/22 System Specialist Relationship Specialty Start Date End Date Shaikh Etienne MD [address] [place] [address] PCP - General Primary Care 01/13/21 Sydnie Ambrosio MD [address] [place] [address] Slubber Runner Cardiology 01/04/22 Maliha Lentz, DO [address] [place] [address] Internal Medicine 09/15/22 System Specialist Relationship Specialty Start Date End Date Shaikh Etienne MD [address] [place] [address] PCP - General Primary Care 01/13/21 Sydnie Ambrosio MD [address] [place] [address] Slubber Runner Cardiology 01/04/22 Maliha Lentz, DO [address] [facility] [address] Internal Medicine 09/15/22 System Specialist Relationship Specialty Start Date End Date Shaikh Etienne MD [address] [place] [address] PCP - General Primary Care 01/13/21 Sydnie Ambrosio MD [address] [facility] [place] [address] Slubber Runner Cardiology 01/04/22 Maliha Lentz, DO [address] [facility] [place] [address] Internal Medicine 09/15/22 System Specialist Relationship Specialty Start Date End Date Shaikh Etienne MD [address] [place] [address] PCP - General Primary Care 01/13/21 Sydnie Ambrosio MD [address] [facility] [place] [address] Sl[employer] Runner Cardiology 01/04/22 Maliha Lentz DO [address] [place] [address] Internal Medicine 09/15/22 System Specialist Relationship Specialty Start Date End Date Shaikh Etienne MD [address] [place] [address] PCP - General Primary Care 01/13/21 Sydnie Ambrosio MD [address] [place] [address] Sl[employer]ber Runner Cardiology 01/04/22 Maliha Lentz DO [address] [place] [address] Internal Medicine 09/15/22 System Specialist Relationship Specialty Start Date End Date Shaikh Etienne MD [address] [place] [address] PCP - General Primary Care 01/13/21 Sydnie Ambrosio MD [address] [place] [address] Slubber Runner Cardiology 01/04/22 Maliha Lentz DO [address] [place] [address] Internal Medicine 09/15/22 System Specialist Relationship Specialty Start Date End Date Shaikh Etienne MD [address] [place] [address] PCP - General Primary Care 01/13/21 Sydnie Ambrosio MD [address] [place] [address] Slubber Runner Cardiology 01/04/22 Maliha Lentz DO [address] [place], [place] [address] [address] Internal Medicine 09/15/22 System Specialist Relationship Specialty Start Date End Date Shaikh Etienne MD [address] [place] [address] PCP - General Internal Medicine 09/22/23 System Specialist Relationship Specialty Start Date End Date Shaikh Etienne MD [address] [place] [address] PCP - General Primary Care 01/13/21 Sydnie Ambrosio MD [address] [place] [address] Slubber Runner Cardiology 01/04/22 Maliha Lentz DO [address] [place], [place] [address], [place] [address] Internal Medicine 09/15/22 System Specialist Relationship Specialty Start Date End Date Shaikh Etienne MD [address] [place] [address] PCP - General Primary Care 01/13/21 Sydnie Ambrosio MD [address] [facility] [place] [address] Slubber Runner Cardiology 01/04/22 Maliha Lentz DO [address] [place] [address] Internal Medicine 09/15/22 System Specialist Relationship Specialty Start Date End Date Shaikh Etienne MD [address] [place] [address] PCP - General Primary Care 01/13/21 Sydnie Ambrosio MD [address] [place] [address] Sl[employer] Runner Cardiology 01/04/22 Maliha Lentz DO [address] [place], [place] [address] [address] Internal Medicine 09/15/22 System Specialist Relationship Specialty Start Date End Date Shaikh Etienne MD [address] [place] [address] PCP - General Primary Care 01/13/21 Sydnie Ambrosio MD [address] [place] [address] Sl[employer] Runner Cardiology 01/04/22 Maliha Lentz DO [address] [place] [address] Internal Medicine 09/15/22 System Specialist Relationship Specialty Start Date End Date Shaikh Etienne MD [address] [place] [address] PCP - General Primary Care 01/13/21 Sydnie Ambrosio MD [address] [place] [address] Sl[employer] Runner Cardiology 01/04/22 Maliha Lentz DO [address] [place] [address] Internal Medicine 09/15/22 System Specialist Relationship Specialty Start Date End Date Shaikh Etienne MD [address] [place] [address] PCP - General Primary Care 01/13/21 Sydnie Ambrosio MD [address] [place] [address] Slubber Runner Cardiology 01/04/22 Maliha Lentz DO [address] [place] [address] Internal Medicine 09/15/22 System Specialist Relationship Specialty Start Date End Date Shaikh Etienne MD [address] [place] [address] PCP - General Primary Care 01/13/21 Sydnie Ambrosio MD [address] [place] [address] Sl[employer]ner Cardiology 01/04/22 Maliha Lentz DO [address] [place] [address] Internal Medicine 09/15/22 System Specialist Relationship Specialty Start Date End Date Shaikh Etienne MD [address] [place] [address] PCP - General Primary Care 01/13/21 Sydnie Ambrosio MD [address] [place] [address] Sl[employer]ber Runner Cardiology 01/04/22 Maliha Lentz DO [address] [place] [address] Internal Medicine 09/15/22 System Specialist Relationship Specialty Start Date End Date DariuszwShaikh garcia MD [address] [place] [address] PCP - General Primary Care 01/13/21 Sydnie Ambrosio MD [address] [place] [address] Slubber Runner Cardiology 01/04/22 Maliha Lentz DO [address] [place] [address] Internal Medicine 09/15/22 System Specialist Relationship Specialty Start Date End Date Shaikh Etienne MD [address] [place] [address] PCP - General Primary Care 01/13/21 Sydnie Ambrosio MD [address] [place] [address] Slubber Runner Cardiology 01/04/22 Maliha Lentz DO [address] [facility] [place] [address] Internal Medicine 09/15/22 System Specialist Relationship Specialty Start Date End Date Shaikh Etienne MD [address] [place] [address] PCP - General Primary Care 01/13/21 Sydnie Ambrosio MD [address] [place] [address] Slubber Runner Cardiology 01/04/22 Maliha Lentz DO [address] [place] [address] Internal Medicine 09/15/22 System Specialist Relationship Specialty Start Date End Date Shaikh Etienne MD [address] [place] [address] PCP - General Primary Care 01/13/21 Sydnie Ambrosio MD [address] [place] [address] Slubber Runner Cardiology 01/04/22 Maliha Lentz DO [address] [place] [address] Internal Medicine 09/15/22 System Specialist Relationship Specialty Start Date End Date Shaikh Etienne MD [address] [place] [address] PCP - General Primary Care 01/13/21 Sydnie Ambrosio MD [address] [place] [address] Slubber Runner Cardiology 01/04/22 Tor Malihacortney JuneeDO [address] [facility] [place] [address] Internal Medicine 09/15/22 System Specialist Relationship Specialty Start Date End Date Shaikh Etienne MD [address] [place] [address] PCP - General Primary Care 01/13/21 Sydnie Ambrosio MD [address] [place] [address] Slubber Runner Cardiology 01/04/22 System Specialist Relationship Specialty Start Date End Date Shaikh Etienne MD [address] [place] [address] PCP - General Primary Care 01/13/21 Sydnie Ambrosio MD [address] [place] [address] Slubber Runner Cardiology 01/04/22 System Specialist Relationship Specialty Start Date End Date Shaikh Etienne MD [address] [place] [address] PCP - General Primary Care 01/13/21 System Specialist Relationship Specialty Start Date End Date Shaikh Etienne MD [address] [place] [address] PCP - General Primary Care 01/13/21 System Specialist Relationship Specialty Start Date End Date Tom Benton MD [address] [place] [address] PCP - General Family Medicine 04/16/24 Jasen Vasques NP [address] [place] [address] Nurse Practitioner Family Medicine 04/16/24 System Specialist Relationship Specialty Start Date End Date Tom Benton MD [address] [place] [address] PCP - General Family Medicine 04/16/24 Jasen Vasques NP [address] [place] [address] Nurse Practitioner Family Medicine 04/16/24 System Specialist Relationship Specialty Start Date End Date Shaikh Etienne MD [address] [place] [address] PCP - General Primary Care 01/13/21 Sydnie Ambrosio MD [address] [place] [address] Slubber Runner Cardiology 01/04/22 Maliha Lentz DO [address] [place] [address] Internal Medicine 09/15/22 System Specialist Relationship Specialty Start Date End Date Shaikh Etienne MD [address] [place] [address] PCP - General Primary Care 01/13/21 Sydnie Ambrosio MD [address] [place] [address] Slubber Runner Cardiology 01/04/22 Maliha Lentz DO [address] [place] [address] Internal Medicine 09/15/22 System Specialist Relationship Specialty Start Date End Date Tom Benton MD [address] [place] [address] PCP - General Family Medicine 07/04/24 Jasen Vasques NP [address] [place] [address] Nurse Practitioner Family Medicine 04/16/24 System Specialist Relationship Specialty Start Date End Date Tom Benton MD [address] [place] [address] PCP - General Family Medicine 07/04/24 Jasen Vasques NP [address] [place] [address] Nurse Practitioner Family Medicine 04/16/24 System Specialist Relationship Specialty Start Date End Date Tom Benton MD [address] [place] [address] PCP - General Family Medicine 04/16/24 Jasen Vasques NP [address] [place] [address] Nurse Practitioner Family Medicine 04/16/24 System Specialist Relationship Specialty Start Date End Date Tom Benton MD [address] [place] [address] PCP - General Family Medicine 04/16/24 Jasen Vasques NP [address] [place] [address] Nurse Practitioner Family Medicine 04/16/24 System Specialist Relationship Specialty Start Date End Date Tom Benton MD [address] [place] [address] PCP - General Family Medicine 04/16/24 Jasen Vasques NP [address] [place] [address] Nurse Practitioner Family Medicine 04/16/24 System Specialist Relationship Specialty Start Date End Date Tom Benton MD [address] [place] [address] PCP - General Family Medicine 07/04/24 Jasen Vasques NP [address] [place] [address] Nurse Practitioner Family Medicine 04/16/24 System Specialist Relationship Specialty Start Date End Date Tom Benton MD [address] [place] [address] PCP - General Family Medicine 07/04/24 Jasen Vasques NP [address] [place] [address] Nurse Practitioner Family Medicine 04/16/24 System Specialist Relationship Specialty Start Date End Date Tom Benton MD [address] [place] [address] PCP - General Family Medicine 07/04/24 Jasen Vasques NP [address] [place] [address] Nurse Practitioner Family Medicine 04/16/24 System Specialist Relationship Specialty Start Date End Date Shaikh Etienne MD [address] [place] [address] PCP - General Primary Care 01/13/21 Sydnie Ambrosio MD [address] [place] [address] Slubber Runner Cardiology 01/04/22 Maliha Lentz DO [address] [place] [address] Internal Medicine 09/15/22 System Specialist Relationship Specialty Start Date End Date Shaikh Etienne MD PCP - General Internal Medicine 08/19/22 System Specialist Relationship Specialty Start Date End Date Shaikh Etienne MD [address] [place] [address] PCP - General Primary Care 01/13/21 Sydnie Ambrosio MD [address] [place] [address] Slubber Runner Cardiology 01/04/22 Maliha Lentz DO [address] [place] [address] Internal Medicine 09/15/22 System Specialist Relationship Specialty Start Date End Date Shaikh Etienne MD [address] [place] [address] PCP - General Primary Care 01/13/21 Sydnie Ambrosio MD [address] [place] [address] [employer] Cardiology 01/04/22 Maliha Lentz DO [address] [place] [address] Internal Medicine 09/15/22 System Specialist Relationship Specialty Start Date End Date Tom Benton MD [address] [place] [address] PCP - General Family Medicine 07/04/24 Jasen Vasques NP [address] [place] [address] Nurse Practitioner Family Medicine 04/16/24 System Specialist Relationship Specialty Start Date End Date Shaikh Etienne MD [address] [place] [address] PCP - General Primary Care 01/13/21 Sydnie Ambrosio MD [address] [place] [address] [employer] Cardiology 01/04/22 Maliha Lentz DO [address] [facility] [place] [address] Internal Medicine 09/15/22 System Specialist Relationship Specialty Start Date End Date Tom Benton MD [address] [place] [phone] PCP - General Family Medicine 07/04/24 Jasen Vasques NP [address] [place] [address] Nurse Practitioner Family Medicine 04/16/24 System Specialist Relationship Specialty Start Date End Date Tom Benton MD [address] [place] [address] PCP - General Family Medicine 07/04/24 Jasen Vasques NP [address] [place] [address] Nurse Practitioner Family Medicine 04/16/24 System Specialist Relationship Specialty Start Date End Date Shaikh Etienne MD PCP - General Internal Medicine 08/19/22 System Specialist Relationship Specialty Start Date End Date Shaikh Etienne MD [address] [place] [address] PCP - General Internal Medicine 08/19/22 System Specialist Relationship Specialty Start Date End Date Tom Benton MD [address] [place] [address] PCP - General Family Medicine 07/04/24 Jasen Vasques NP [address] [place] [address] Nurse Practitioner Family Medicine 04/16/24 Team Status: Inactive Member Role Status Dates Shaikh Lowell MD Primary Care Provider Active Start: July 22, 2024 End: July 22, 2024 Tavo Hull APRN Attending Provider Active Start: July 22, 2024 End: July 22, 2024 Team Status: Inactive Member Role Status Dates Shaikh Lowell MD Primary Care Provider Active Start: October 16, 2024 End: October 16, 2024 Tavo Hull APRN Attending Provider Active Start: October 16, 2024 End: October 16, 2024 System Specialist Relationship Specialty Start Date End Date Shaikh Etienne MD PCP - General Internal Medicine 08/19/22 System Specialist Relationship Specialty Start Date End Date Tom Benton MD [address] [place] [phone] PCP - General Family Medicine 07/04/24 Jasen Vasques NP Nurse Practitioner Family Medicine 04/16/24 System Specialist Relationship Specialty Start Date End Date Shaikh Etienne MD [address] [place] [address] PCP - General Primary Care 01/13/21 Sydnie Ambrosio MD [address] [place] [address] [employer] Cardiology 01/04/22 Maliha Lentz DO [address] [place] [address] Internal Medicine 09/15/22 System Specialist Relationship Specialty Start Date End Date Shaikh Etienne MD [address] [place] [address] PCP - General Primary Care 01/13/21 Sydnie Ambrosio MD [address] [place] [address] [employer] Cardiology 01/04/22 Maliha Lentz DO [address] [place] [address] Internal Medicine 09/15/22 System Specialist Relationship Specialty Start Date End Date Shaikh Etienne MD [address] [place] [address] PCP - General Primary Care 01/13/21 Sydnie Ambrosio MD [address] [place] [address] [employer] Cardiology 01/04/22 Maliha Lentz DO [address] [place] [address] Internal Medicine 09/15/22 System Specialist Relationship Specialty Start Date End Date Tom Benton MD [address] [place] [address] PCP - General Family Medicine 07/04/24 Jasen Vasques NP Nurse Practitioner Family Medicine 04/16/24 System Specialist Relationship Specialty Start Date End Date Tom Benton MD [address] [place] [phone] PCP - General Family Medicine 07/04/24 Jasen Vasques NP Nurse Practitioner Family Medicine 04/16/24 System Specialist Relationship Specialty Start Date End Date Tom Benton MD [address] [place] [address] PCP - General Family Medicine 07/04/24 Jasen Vasques NP Nurse Practitioner Family Medicine 04/16/24 System Specialist Relationship Specialty Start Date End Date Tom Benton MD [address] [place] [phone] PCP - General Family Medicine 07/04/24 Jasen Vasques NP Nurse Practitioner Family Medicine 04/16/24 System Specialist Relationship Specialty Start Date End Date Tom Benton MD [address] [place] [address] PCP - General Family Medicine 07/04/24 Jasen Vasques, DIGITAL ASSOCIATE MEDIA DIRECTOR Nurse Practitioner Family Medicine 04/16/24 System Specialist Relationship Specialty Start Date End Date Tom Benton MD [address] [place] [phone] PCP - General Family Medicine 07/04/24 Jasen Vasques NP Nurse Practitioner Family Medicine 04/16/24 System Specialist Relationship Specialty Start Date End Date Shaikh Etienne MD [address] [place] [address] PCP - General Primary Care 01/13/21 Sydnie Ambrosio MD [address] [place] [address] [employer] Cardiology 01/04/22 Maliha Lentz DO [address] [place] [address] Internal Medicine 09/15/22 System Specialist Relationship Specialty Start Date End Date Tom Benton MD [address] [place] [phone] PCP - General Family Medicine 07/04/24 Jasen Vasques NP Nurse Practitioner Family Medicine 04/16/24 System Specialist Relationship Specialty Start Date End Date Shaikh Etienne MD [address] [place] [address] PCP - General Primary Care 01/13/21 Sydnie Ambrosio MD [address] [place] [address] [employer] Cardiology 01/04/22 Maliha Lentz DO [address] [place] [address] Internal Medicine 09/15/22 System Specialist Relationship Specialty Start Date End Date Tom Benton MD [address] [place] [address] PCP - General Family Medicine 07/04/24 Jasen Vasques NP Nurse Practitioner Family Medicine 04/16/24 System Specialist Relationship Specialty Start Date End Date Tom Benton MD [address] [place] [phone] PCP - General Family Medicine 07/04/24 Jasen Vasques NP Nurse Practitioner Family Medicine 04/16/24 System Specialist Relationship Specialty Start Date End Date Tom Benton MD [address] [place] [address] PCP - General Family Medicine 07/04/24 Jasen Vasques NP Nurse Practitioner Family Medicine 04/16/24 System Specialist Relationship Specialty Start Date End Date Shaikh Etienne MD PCP - General Internal Medicine 08/19/22 System Specialist Relationship Specialty Start Date End Date Shaikh Etienne MD [facility] [place] [address] PCP - General Primary Care 01/13/21 Sydnie Ambrosio MD [address] [place] [address] [employer] Cardiology 01/04/22 Maliha Lentz DO [address] [place], [place] [id number] Internal Medicine 09/15/22 Goals (unrecognized section and content) Goals may be documented in a n alternate section FOR RECORDS PERTAINING TO PATIENTS WHO ARE [...] BE BASED ON THE PRIMARY CLINICAL RECORDS. [facility]. provides no warranty or guarantee of the accuracy or completeness of information in this document.
--- NOTE | 2025-04-13 21:08 | ED_ITS ---
Documented by User: GÓMEZ SYLVESTER 04/13/25 22:10 HPI HPI - Fall General Chief Complaint: Fall Stated Complaint: FELL Time Seen by Provider: 04/13/25 20:43 Mode of arrival: walk-in History of Present Illness HPI Narrative: Presents patient presents to the ED after a fall. He states he fell trying to put his bicycle up fell approximately 6 to 7 feet landed on his left side. He comes in today with pain to his left rib area and left back. He is not having any pain in his extremities no numbness or tingling. He states he did not hit his head or get knocked out. He is alert and oriented on arrival. He did ambulate in. Patient denies any shortness of breath or chest pressure he denies any abdominal pain. No nausea or vomiting. He denies any vision changes. No hearing changes. He denies any cervical neck tenderness or thoracic tenderness. He has not taken anything for his symptoms at this time Related Data Home Medications ?Medication ?Instructions ?Recorded ?Confirmed albuterol sulfate 2.5 mg/3 mL mg 10/14/24 (0.083 %) solution for nebulization albuterol sulfate 90 mcg/actuation inhalation 10/14/24 aerosol inhaler amitriptyline 25 mg tablet mg 10/14/24 amlodipine 10 mg tablet mg 10/14/24 atorvastatin 40 mg tablet mg 10/14/24 buspirone 30 mg tablet mg 10/14/24 clopidogrel 75 mg tablet mg 10/14/24 fluticasone fur. 200 mcg-umeclid inhalation 10/14/24 62.5 mcg-vilant 25 mcg inhalat.powder (Trelegy Ellipta) furosemide 40 mg tablet mg 10/14/24 linaclotide 290 mcg capsule mcg 10/14/24 (Linzess) metoprolol succinate 100 mg mg PO 10/14/24 tablet,extended release 24 hr potassium chloride 10 mEq meq PO 10/14/24 tablet,extended release(part/cryst) spironolactone 25 mg tablet mg 10/14/24 Previous Rx's ?Medication ?Instructions ?Recorded albuterol sulfate 90 mcg/actuation 2 inh inhalation Q4 H PRN shortness 10/14/24 aerosol inhaler of breath or wheezing #8.5 g judd doxycycline hyclate 100 mg tablet 100 mg PO BID 10 day s #20 tabs 10/14/24 hydrocodone 5 mg-acetaminophen 325 1 tab PO Q6H PRN pa in #12 tabs 10/14/24 mg tablet methylprednisolone 4 mg tablets in See Rx Instructions .Route 10/14/24 a dose pack (Medrol (Gilles)) .COMPLEX #21 ea Allergies Allergy/AdvReac Type Severity Reaction Status Date / Time No Known Drug Allergies Allergy Verified 04/13/25 20:52 Opioid HPI Opioid Management Most Recent Pain and Opioid Data: Last Pain Scale 10 04/13/25, 23:38 Last ED Pain Assessment Today, 01:52 Last MAR Pain Assessment 04/13/25, 21:10 PFSH PFSH Social History Smoking status: Former smoker Little interest or pleasure in doing things: not at all Feeling down, depressed, or hopeless: not at all Exam Constitutional Vital Signs, click to edit/add: Last Vital Signs Temp 98.3 F 04/14/25 02:04 Pulse 62 04/14/25 02:04 Resp 20 04/14/25 02:04 BP 105/62 04/14/25 02:04 Pulse Ox 92 L 04/14/25 02:04 O2 Del Method Nasal Cannula 04/14/25 02:04 O2 Flow Rate 4 04/14/25 02:04 Documenting provider has reviewed patient's vital signs: yes Common normals: average body habitus, oriented x3 and alert General appearance: cooperative and in distress Orientation/consciousness: Yes awake, Yes oriented to person, Yes oriented to place and Yes oriented to time HENMT Common normals: normocephalic, head/scalp atraumatic, hearing grossly normal bilaterally, TMs normal bilaterally, external nose normal, nasal mucous membranes and turbinates normal, moist oral mucous membranes, oropharynx normal and dentition normal Eye Common normals: PERRL, conjunctivae normal and normal visual easton by confrontation Neck & C-Spine Common normals: full ROM, no lymphadenopathy and supple General: normal visual inspection and trachea midline Chest Common normals: inspection of chest normal Chest: symmetrical chest wall rise, localized rib tenderness with anteroposterior compression and tenderness; no sternal flail and no ecchymosis Breast/axilla palpation: normal palpation of the axillae Respiratory Common normals: normal respiratory effort, no retractions, no use of accessory muscles and clear to auscultation bilaterally Cardio Common normals: regular rate, regular rhythm and no murmurs GI Common normals: Normal to inspection, nondistended, normoactive bowel sounds present, soft to palpation and non-tender Back & Pelvis Common normals: no CVA tenderness, thoracic and lumbar spine normal to inspection, no thoracic nor lumbar tenderness, thoraco-lumbar ROM normal and straight leg raise negative bilaterally Neuro Keron Coma Scale: document GCS findings Common normals: oriented x3 and CN's II-XII intact bilaterally Sensorium/orientation: awake, alert, oriented to person, oriented to place, oriented to time and orientation impaired Sensory exam: extremities Psych Common normals: mental status grossly normal, thought process normal, cooperative, affect normal, speech normal and activity/motor behavior normal Course Vital Signs Vital signs: Vital Signs Temperature 97.3 F L 04/13/25 20:46 Pulse Rate 60 04/13/25 20:46 Respiratory Rate 20 04/13/25 20:46 Blood Pressure 120/47 L 04/13/25 20:46 Pulse Oximetry 94 L 04/13/25 20:46 Oxygen Delivery Method Room Air 04/13/25 20:46 Temperature 98.3 F 04/14/25 02:04 Pulse Rate 62 04/14/25 02:04 Respiratory Rate 20 04/14/25 02:04 Blood Pressure 105/62 04/14/25 02:04 Pulse Oximetry 92 L 04/14/25 02:04 Oxygen Delivery Method Nasal Cannula 04/14/25 02:04 Oxygen Delivery Flow Rate 4 04/14/25 02:04 MDM - Fall MDM Narrative Medical decision making narrative: Presents patient presents to the ED after a fall. He states he fell trying to put his bicycle up fell approximately 6 to 7 feet landed on his left side. He comes in today with pain to his left rib area and left back. He is not having any pain in his extremities no numbness or tingling. He states he did not hit his head or get knocked out. He is alert and oriented on arrival. He did ambulate in. Patient denies any shortness of breath or chest pressure he denies any abdominal pain. No nausea or vomiting. He denies any vision changes. No hearing changes. He denies any cervical neck tenderness or thoracic tenderness. He has not taken anything for his symptoms at this time Patient is alert and oriented but does appear in distress from pain. He has rhonchorous breath sounds. He is a smoker and has COPD. I do not hear any wheezing he does not like any breath sounds in his lung quadrants. His abdomen is soft nontender there is no contusion on his chest wall or his abdomen. He has tenderness on the lateral and posterior left rib area. I do not feel any crepitus he is very guarded with this exam. He does not have any cervical neck tenderness. He does not have any neurological changes pupils are equal and reactive GCS of 15 cranial nerves are grossly intact. Patient has no tenderness in the hip joints with range of motion no knee ankle or foot pain. He does not have any clavicular shoulder elbow or hand pain. He is answering questions appropriately. Patient is on aspirin no other anticoagulants or antiplatelet medications. Based on the patient's fall of 7 feet and the amount of discomfort possibility of distracting injury I am going to CT his head and neck. Also will CT his chest abdomen and pelvis. Patient was provided with pain medication and antiemetic medication. IV fluids were initiated. Patient's blood pressures remained stable.. 2200 Patient will be dispositioned by ED attending. Sigh out was initiated at 2200. CT are pending. All points of exam and work up were reviewed prior to sign out. Differential Diagnosis Differential diagnosis: Likely concussion with loss of consciousness and concussion without loss of consciousness Medical Records Attestation: I reviewed the patient's medical records. Lab Data Attestation: I reviewed the patient's lab results. Labs: Lab Results 04/13/25 Range/Units 21:10 WBC 19.0 H (4.0-11.0) 10^3/uL RBC 4.32 L (4.70-6.10) 10^6/uL Hgb 13.6 L (14.0-18.0) g/dL Hct 40.5 L (42.0-54.0) % MCV 93.8 (80.0-94.0) fL MCH 31.5 (25.9-34.0) pg MCHC 33.6 (29.9-35.2) g/dL RDW 12.9 (11.0-15.0) % Plt Count 243 (150-450) 10^3/uL MPV 9.6 (9.5-13.5) fL Seg Neuts % (Manual) 78.0 H (43.0-75.0) Lymphocytes % (Manual) 7.0 L (20.5-60.0) % Atypical Lymphs % (Man) 4.0 % Monocytes % (Manual) 10.0 (1.7-12.0) % Eosinophils % (Manual) 1.0 (0.9-7.0) % Basophils % (Manual) 0.0 L (0.2-2.0) % Neutrophils # (Manual) 14.82 H (1.4-6.5) 10^3/uL Lymphocytes # (Manual) 1.33 (1.20-3.80) 10^3/uL Abs Atypical Lymphs Man 0.76 Monocytes # (Manual) 1.90 H (0.30-0.80) 10^3/uL Eosinophils # (Manual) 0.19 (0.00-0.70) 10^3/uL Basophils # (Manual) 0.00 (0.00-0.10) 10^3/uL Sodium 143 (136-145) mmol/L Potassium 5.3 H (3.5-5.1) mmol/L Chloride 107 (98-107) mmol/L Carbon Dioxide 26.4 (21.0-32.0) mmol/L Anion Gap 14.9 BUN 29.0 H (7.0-18.0) mg/dL Creatinine 1.17 (0.70-1.30) mg/dL Est GFR ( Amer) >60 (>=60 mL/min/1.73m^2) Est GFR (Non-Af Amer) >60 (>=60 mL/min/1.73m^2) BUN/Creatinine Ratio 24.8 Glucose 128 H (74-106) mg/dL Calcium 9.1 (8.5-10.1) mg/dL Total Bilirubin 0.4 (0.2-1.0) mg/dL AST 33 (15-37) U/L ALT 27 (16-63) U/L Alkaline Phosphatase 91 (46-116) U/L Total Protein 8.1 (6.4-8.2) g/dL Albumin 3.5 (3.4-5.0) g/dL Globulin 4.6 g/dL Albumin/Globulin Ratio 0.8 Discharge Plan Discharge Chief Complaint: Fall Clinical Impression: Hemothorax, traumatic Qualifiers: Encounter type: initial encounter Qualified Code(s): S27.1XXA - Traumatic hemothorax, initial encounter Clavicular fracture Qualifiers: Encounter type: initial encounter Fracture type: closed Laterality: left Multiple rib fractures Qualifiers: Encounter type: initial encounter Laterality: left Patient Disposition: [facility] Time of Disposition Decision: 01:59 Discharge Location: [facility] Condition: Fair Mode of Transportation: EMS Discharge Date/Time: 04/14/25 02:10 Documented by User: Feltcher Epstein DO 04/14/25 02:12 HPI HPI - Fall General Chief Complaint: Fall Stated Complaint: FELL Time Seen by Provider: 04/13/25 20:43 Related Data Home Medications ?Medication ?Instructions ?Recorded ?Confirmed albuterol sulfate 2.5 mg/3 mL mg 10/14/24 (0.083 %) solution for nebulization albuterol sulfate 90 mcg/actuation inhalation 10/14/24 aerosol inhaler amitriptyline 25 mg tablet mg 10/14/24 amlodipine 10 mg tablet mg 10/14/24 atorvastatin 40 mg tablet mg 10/14/24 buspirone 30 mg tablet mg 10/14/24 clopidogrel 75 mg tablet mg 10/14/24 fluticasone fur. 200 mcg-umeclid inhalation 10/14/24 62.5 mcg-vilant 25 mcg inhalat.powder (Trelegy Ellipta) furosemide 40 mg tablet mg 10/14/24 linaclotide 290 mcg capsule mcg 10/14/24 (Linzess) metoprolol succinate 100 mg mg PO 10/14/24 tablet,extended release 24 hr potassium chloride 10 mEq meq PO 10/14/24 tablet,extended release(part/cryst) spironolactone 25 mg tablet mg 10/14/24 Previous Rx's ?Medication ?Instructions ?Recorded albuterol sulfate 90 mcg/actuation 2 inh inhalation Q4 H PRN shortness 10/14/24 aerosol inhaler of breath or wheezing #8.5 g judd doxycycline hyclate 100 mg tablet 100 mg PO BID 10 day s #20 tabs 10/14/24 hydrocodone 5 mg-acetaminophen 325 1 tab PO Q6H PRN pa in #12 tabs 10/14/24 mg tablet methylprednisolone 4 mg tablets in See Rx Instructions .Route 10/14/24 a dose pack (Medrol (Gilles)) .COMPLEX #21 ea Allergies Allergy/AdvReac Type Severity Reaction Status Date / Time No Known Drug Allergies Allergy Verified 04/13/25 20:52 Opioid HPI Opioid Management Most Recent Pain and Opioid Data: Last Pain Scale 10 04/13/25, 23:38 Last ED Pain Assessment Today, 01:52 Last MAR Pain Assessment 04/13/25, 21:10 PFSH PFSH Social History Smoking status: Former smoker Little interest or pleasure in doing things: not at all Feeling down, depressed, or hopeless: not at all Exam Constitutional Vital Signs, click to edit/add: Last Vital Signs Temp 98.3 F 04/14/25 02:04 Pulse 62 04/14/25 02:04 Resp 20 04/14/25 02:04 BP 105/62 04/14/25 02:04 Pulse Ox 92 L 04/14/25 02:04 O2 Del Method Nasal Cannula 04/14/25 02:04 O2 Flow Rate 4 04/14/25 02:04 Course Vital Signs Vital signs: Vital Signs Temperature 97.3 F L 04/13/25 20:46 Pulse Rate 60 04/13/25 20:46 Respiratory Rate 20 04/13/25 20:46 Blood Pressure 120/47 L 04/13/25 20:46 Pulse Oximetry 94 L 04/13/25 20:46 Oxygen Delivery Method Room Air 04/13/25 20:46 Temperature 98.3 F 04/14/25 02:04 Pulse Rate 62 04/14/25 02:04 Respiratory Rate 20 04/14/25 02:04 Blood Pressure 105/62 04/14/25 02:04 Pulse Oximetry 92 L 04/14/25 02:04 Oxygen Delivery Method Nasal Cannula 04/14/25 02:04 Oxygen Delivery Flow Rate 4 08/11/25 02:04 MDM - Fall MDM Narrative Medical decision making narrative: Presents patient presents to the ED after a fall. He states he fell trying to put his bicycle up fell approximately 6 to 7 feet landed on his left side. He comes in today with pain to his left rib area and left back. He is not having any pain in his extremities no numbness or tingling. He states he did not hit his head or get knocked out. He is alert and oriented on arrival. He did ambulate in. Patient denies any shortness of breath or chest pressure he denies any abdominal pain. No nausea or vomiting. He denies any vision changes. No hearing changes. He denies any cervical neck tenderness or thoracic tenderness. He has not taken anything for his symptoms at this time Patient is alert and oriented but does appear in distress from pain. He has rhonchorous breath sounds. He is a smoker and has COPD. I do not hear any wheezing he does not like any breath sounds in his lung quadrants. His abdomen is soft nontender there is no contusion on his chest wall or his abdomen. He has tenderness on the lateral and posterior left rib area. I do not feel any crepitus he is very guarded with this exam. He does not have any cervical neck tenderness. He does not have any neurological changes pupils are equal and reactive GCS of 15 cranial nerves are grossly intact. Patient has no tenderness in the hip joints with range of motion no knee ankle or foot pain. He does not have any clavicular shoulder elbow or hand pain. He is answering questions appropriately. Patient is on aspirin no other anticoagulants or antiplatelet medications. Based on the patient's fall of 7 feet and the amount of discomfort possibility of distracting injury I am going to CT his head and neck. Also will CT his chest abdomen and pelvis. Patient was provided with pain medication and antiemetic medication. IV fluids were initiated. Patient's blood pressures remained stable.. 2200 Patient will be dispositioned by ED attending. Sigh out was initiated at 2200. CT are pending. All points of exam and work up were reviewed prior to sign out. ED Addendum: Fletcher Epstein DO Patient was signed out to me pending CT reads. CT head independently reviewed/interpreted by myself demonstrated no acute intracranial pathology or hemorrhage. CT abdomen/pelvis/thorax independently reviewed/interpreted by myself demonstrated small left hemothorax, rib fractures 6-8 on the left, left pulmonary contusion, and left clavicular fracture on the bottom of the coracoid. The patient did have mild desaturations into the low 90s, therefore he was placed on 2 L nasal cannula with resolution of his hypoxia. He is breathing comfortably and is not complaining of any shortness of breath. He has no evidence of flail chest or impending respiratory failure. He remains hemodynamically stable. The hemothorax is small, and does not require emergent tube thoracostomy. Patient will require transfer for higher level of care. He request to be transferred to [facility]. I discussed the patient with trauma surgeon, Dr. Aguila, who accepted the patient. Patient was transfered in stable condition on 2L NC. Lab Data Labs: Lab Results 04/13/25 Range/Units 21:10 WBC 19.0 H (4.0-11.0) 10^3/uL RBC 4.32 L (4.70-6.10) 10^6/uL Hgb 13.6 L (14.0-18.0) g/dL Hct 40.5 L (42.0-54.0) % MCV 93.8 (80.0-94.0) fL MCH 31.5 (25.9-34.0) pg MCHC 33.6 (29.9-35.2) g/dL RDW 12.9 (11.0-15.0) % Plt Count 243 (150-450) 10^3/uL MPV 9.6 (9.5-13.5) fL Seg Neuts % (Manual) 78.0 H (43.0-75.0) Lymphocytes % (Manual) 7.0 L (20.5-60.0) % Atypical Lymphs % (Man) 4.0 % Monocytes % (Manual) 10.0 (1.7-12.0) % Eosinophils % (Manual) 1.0 (0.9-7.0) % Basophils % (Manual) 0.0 L (0.2-2.0) % Neutrophils # (Manual) 14.82 H (1.4-6.5) 10^3/uL Lymphocytes # (Manual) 1.33 (1.20-3.80) 10^3/uL Abs Atypical Lymphs Man 0.76 Monocytes # (Manual) 1.90 H (0.30-0.80) 10^3/uL Eosinophils # (Manual) 0.19 (0.00-0.70) 10^3/uL Basophils # (Manual) 0.00 (0.00-0.10) 10^3/uL Sodium 143 (136-145) mmol/L Potassium 5.3 H (3.5-5.1) mmol/L Chloride 107 (98-107) mmol/L Carbon Dioxide 26.4 (21.0-32.0) mmol/L Anion Gap 14.9 BUN 29.0 H (7.0-18.0) mg/dL Creatinine 1.17 (0.70-1.30) mg/dL Est GFR ( Amer) >60 (>=60 mL/min/1.73m^2) Est GFR (Non-Af Amer) >60 (>=60 mL/min/1.73m^2) BUN/Creatinine Ratio 24.8 Glucose 128 H (74-106) mg/dL Calcium 9.1 (8.5-10.1) mg/dL Total Bilirubin 0.4 (0.2-1.0) mg/dL AST 33 (15-37) U/L ALT 27 (16-63) U/L Alkaline Phosphatase 91 (46-116) U/L Total Protein 8.1 (6.4-8.2) g/dL Albumin 3.5 (3.4-5.0) g/dL Globulin 4.6 g/dL Albumin/Globulin Ratio 0.8 Discharge Plan Discharge Chief Complaint: Fall Clinical Impression: Hemothorax, traumatic Qualifiers: Encounter type: initial encounter Qualified Code(s): S27.1XXA - Traumatic hemothorax, initial encounter Clavicular fracture Qualifiers: Encounter type: initial encounter Fracture type: closed Laterality: left Multiple rib fractures Qualifiers: Encounter type: initial encounter Laterality: left Patient Disposition: [facility] Time of Disposition Decision: 01:59 Discharge Location: [facility] Condition: Fair Mode of Transportation: EMS Discharge Date/Time: 04/14/25 02:10
[2025-04-13] MEDS: MORPHINE SULFATE 4 MG/ML VIAL IV (21:10)
[2025-04-13 21:15] LABS: Hematocrit 40.5 % (42.0-54.0); Hemoglobin 13.6 g/dL (14.0-18.0); Mean Corpuscular HGB Conc 33.6 g/dL (29.9-35.2); Mean Corpuscular Hemoglobin 31.5 pg (25.9-34.0); Mean Corpuscular Volume 93.8 fL (80.0-94.0); Platelet Count 243 10^3/uL (150-450); Red Blood Count 4.32 10^6/uL (4.70-6.10); White Blood Count 19.0 10^3/uL (4.0-11.0)
[2025-04-13] MEDS: HYDROMORPHONE HCL 1 MG/ML CARTRIDGE IVP ×2 (21:23→23:38)
[2025-04-13 21:30] LABS: Alanine Aminotransferase 27 U/L (16-63); Albumin Globulin Ratio 0.8; Albumin Level 3.5 g/dL (3.4-5.0); Alkaline Phosphatase 91 U/L (46-116); Anion Gap 14.9; Aspartate Amino Transferase 33 U/L (15-37); Blood Urea Nitrogen 29.0 mg/dL (7.0-18.0); Calcium 9.1 mg/dL (8.5-10.1); Carbon Dioxide 26.4 mmol/L (21.0-32.0); Chloride 107 mmol/L (98-107); Estimated GFR (African America >60 (>=60 mL/min/1.73m^2); Estimated GFR (Non-African Ame >60 (>=60 mL/min/1.73m^2); Globulin 4.6 g/dL; Glucose 128 mg/dL (74-106); Potassium 5.3 mmol/L (3.5-5.1); Sodium 143 mmol/L (136-145); Total Protein 8.1 g/dL (6.4-8.2)
[2025-04-13 21:41] LABS: Atypical Lymphocytes % Manual 4.0 %; Atypical Lymphocytes Abs Man 0.76; Basophils Abs Manual 0.00 10^3/uL (0.00-0.10); Basophils Percent Manual 0.0 % (0.2-2.0); Eosinophils Absolute Manual 0.19 10^3/uL (0.00-0.70); Eosinophils Percent Manual 1.0 % (0.9-7.0); Lymphocytes Absolute Manual 1.33 10^3/uL (1.20-3.80); Lymphocytes Percent Manual 7.0 % (20.5-60.0); Monocytes Absolute Manual 1.90 10^3/uL (0.30-0.80); Monocytes Percent Manual 10.0 % (1.7-12.0); Segmented Neut Absolute Manual 14.82 10^3/uL (1.4-6.5); Segmented Neutrophils % Manual 78.0 (43.0-75.0)
[2025-04-13] MEDS: HYDROMORPHONE HCL 1 MG/ML CARTRIDGE IV (22:30)
[2025-04-14] VITALS (19 sets, daily range): BP systolic 87–110; BP diastolic 26–62; PULSE 43–62; TEMP 36.8; O2SAT 69–96
[2025-04-14] MEDS: 0.9 % SODIUM CHLORIDE 1,000 ML 1000 ML IV (00:29)
--- NOTE | 2025-04-14 00:32 | ECG_ITS ---
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 Measurements Intervals [place] Rate: 44 P: 46 CO: 234 QRS: -20 QRSD: 110 T: 61 QT: 504 QTc: 454 Interpretive Statements 1130 Sinus bradycardia 2231 First degree AV block 3114 Cannot rule out anterior myocardial infarction, age undetermined 9150 abnormal ECG Compared to ECG 10/14/2024 17:05:30 First degree AV block now present Possible ischemia no longer present Electronically Signed On 04-15-2025 12:49:37 EDT by SYDNIE AYOUB M.D.
== END 2025-04-14 02:10 | disposition short-term general hospital (02) ==
PROVIDERS: Physician Assistant; Emergency Provider Student in an Organized Health Care Education/Training Program; PCP Nurse Practitioner
DX: S27.1XXA Traumatic hemothorax, initial encounter (principal); S42.002A Fracture of unspecified part of left clavicle, initial encounter for closed fracture; W18.09XA Striking against other object with subsequent fall, initial encounter; S22.42XA Multiple fractures of ribs, left side, initial encounter for closed fracture
CPT/HCPCS: 36415; 70450; 71045; 71260; 72125; 74177; 80053; 85007; 85027; 93005; 96374; 96375; 96376; 99285; J1171; J2270; J2405; Q9967

== ENCOUNTER 2025-07-30 12:48 | Outpatient (OUT) | payer MEDICARE, MEDICAID, SELFPAY ==
--- OUTSIDE RECORDS SUMMARY | 2025-07-30 13:03 | XMS_ITS | Clinical Summary ---
Author Organization [facility] Address [address] [place] [address] Care Team Providers Care Machinist 2Nd Shift Name Role Phone Vasques, Brittany ANIMAL HUSBANDMAN Unavailable [phone] Tom Benton MD Primary Care Provider [phone] Allergies No known active allergies Medications MedicationSigDispense QuantityRefillsLast FilledStart DateEnd DateStatus Oigjptkzhes-Kddssijbr-Xyylgt (Trelegy Ellipta) 200-62.5-25 MCG/ACT aerosol powder Indications:Chronic obstructive pulmonary disease, unspecified (HCC)Inhale 1 puff in the morning. 3 each 08/24/2023ctive Entresto 97-103 MG tablet Take 1 tablet by mouth in the morning and 1 tablet before bedtime.08/23/2023 Active nitroglycerin (Nitrostat) 0.[address] 0.4 mg under the tongue every 5 (five) minutes if needed for chest pain (DISSOLVE 1 (ONE) TABLET UNDER THE TONGUE EVERY 15 MINUTES NEEDED; max 3 (THREE) doses in 24 HOURS)12/22/2022ctive metoprolol succinate XL (Toprol-XL) 100 MG 24 hr tablet Take 1 tablet by mouth in the morning.08/23/2023ctive aspirin 81 MG EC tablet Take 81 mg by mouth 1 (one) time each day at the same timeActive furosemide (Lasix) 40 MG tablet Indications:Heart failure, unspecified (HCC)Take 1 tablet (40 mg) by mouth Daily 90 tablet ctive spironolactone (Aldactone) 25 MG tablet Take 0.5 tablets (12.5 mg) by mouth in the morning.09/11/2024tive busPIRone (Buspar) 30 MG tablet Indications:Depression, unspecifiedTake 1 tablet (30 mg) by mouth in the morning and 1 tablet (30 mg) before bedtime. 60 tablet 11009/11/806180/6Active amLODIPine (Norvasc) 10 MG tablet Indications:Essential (primary) hypertensionTake 1 tablet (10 mg) by mouth Daily 90 tablet 5Active albuterol (2.5 MG/3ML) 0.083% nebulizer solution Indications:Chronic obstructive pulmonary disease, unspecified (HCC)Take 3 mL (2.5 mg) by nebulization every 4 (four) hours if needed for wheezing 270 mL 5Active Linzess 290 MCG capsule Take 290 mcg by mouth Daily5Active sildenafil (Viagra) 50 MG tablet Indications:Male erectile dysfunction, unspecifiedTake 1 tablet (50 mg) by mouth if needed for erectile dysfunction 30 tablet 5Active albuterol HFA 90 mcg/act inhaler Indications:Shortness of breathInhale 2 puffs every 6 (six) hours if needed for wheezing 18 g 5Active atorvastatin (Lipitor) 40 MG tablet Indications:Atherosclerotic heart disease of mechoopda coronary artery without angina pectorisTake 1 tablet (40 mg) by mouth at bedtime TAKE 1 TABLET BY MOUTH AT BEDTIME 90 tablet 5Active Cobalamin Combinations (B-12) 100-[address] 1 tablet under the tongue in the morning.5Active sertraline (Zoloft) 100 MG tablet Indications:Mild episode of recurrent major depressive disorderTake 1 tablet (100 mg) by mouth Daily 30 tablet 5Active acetaminophen (Tylenol) 500 MG tablet Take 1,000 mg by mouth every 6 (six) hours5Active Active Problems ProblemNoted DateDiagnosed DateChronic systolic (congestive) heart failure 12/26/2024 Assessment & Plan (12/26/2024 7:29 PM EDT): Follows with [facility] cardiology Entresto, diuretics, amlodpine GERD (gastroesophageal reflux disease)04/03/2024Head jbnsst1002/26/2024 Assessment & Plan (02/26/2024 1:58 PM EDT): Fell at home, no LOC but reports head trauma and has mild headache since then. On ASA, plavix. Willorder CTH. No neurological symptoms. Left leg pain01/01/2024 Assessment & Plan (01/01/2024 3:56 PM EDT): [...] for acute pain Personal history of colonic qtcova8810/06/2023ositive colorectal cancer screening using Cologuard test10/06/2023Ischemic enxqnkesfhykbj15/29/2024Tobacco uqmcprlunw08/29/2024 Assessment & Plan (02/12/2025 6:48 AM EDT): The patient has been advised of the risks of continued smoking: stroke, DE, all forms of cancer, lung disease, and . Options for quitting smoking include: cold turkey, hypnosis, acupuncture, nicotine replacement meds(gum, lozenges, and patches), Buproprion, and Varenicline. At this time pt is encouraged to evaluate their goals for wanting to quit smoking, and reach out toprovider when ready to start this process Assessment & Plan (12/26/2024 7:26 PM EDT): The patient has been advised of the risks of continued smoking: stroke, DE, all forms of cancer, lung disease, and . Options for quitting smoking include: cold turkey, hypnosis, acupuncture, nicotine replacement meds(gum, lozenges, and patches), Buproprion, and Varenicline. At this time pt is encouraged to evaluate their goals for wanting to quit smoking, and reach out toprovider when ready to start this process Assessment & Plan (10/02/2023 1:44 PM EST): Patient counseled on smoking/tobacco cessation. Patient educated on harmful effects of smoking cigarettes/tobacco including increased risk of cardiovascular diseases, chronic lung disease and multiple cancers. First [facility] atri[facility]ent[facility]10[facility] beiputkvvb19/29/2024 Assessment & Plan (02/12/2025 6:48 AM EDT): [...] get Influenza and Pneumonia vaccine. Chronic idiopathic alevrlqshejj52/29/2024 Assessment & Plan (06/03/2024 2:28 PM EDT): [...] for constipation without any benefit. Dyspnea on ioangzdn02/15/2022anlobular mllmstgda11/17/2022 Assessment & Plan (09/11/2024 1:49 PM EST): On Trelegy. Chronic exertional ZHAO. Unchanged. Seen by Pulm in 08/26 Continues to smoke. Encouraged to quite smoking Assessment & Plan (02/26/2024 1:56 PM EDT): On Trelegy. Chronic exertional ZHAO. Unchanged. Seen by Pulm in 08/26 Continues to smoke. Encouraged to quite smoking. Uorldhewbt47/04/2022 Overview (10/02/2023): Last Assessment & Plan: Assessment: [...] Also using Buspirone. History of aortic valve lpkenpewnij38/04/2022 Overview (10/02/2023): Last Assessment & Plan: Assessment: s/p 06/2020 History of coronary artery bypass ydcspaz5501/05/2022 Overview (10/02/2023): Last Assessment & Plan: Assessment: 2019, . Follows up with cardiology HLD (hyperlipidemia)01/05/2022 Overview (10/02/2023): Last Assessment & Plan: Assessment: [...] EST): On Lipitor. Check Lipid panel. HTN (hypertension)01/05/2022 Overview (10/02/2023): Last Assessment & Plan: Assessment: [...] LOW in office today, too tightly controlled. Ptreports dizziness occassionally. Will decrease Spironolactone to 12.5mg [...] to next visit. Presence of prosthetic heart valve01/05/2022 Overview (01/01/2024): Last Assessment & Plan: Assessment: s/p 06/2020 Acute thrombus of left /04/2022Cancer of trachea, bronchus, and lung 10/29/2021 Overview [...] Follows up with PCP Adenocarcinoma of right lung10/29/2021 Assessment & Plan (02/12/2025 6:49 AM EDT): [...] to smoke. Encouraged smoking cessation. Following Oncology. Xcluajib93/03/2020 Assessment & Plan (10/02/2023 1:45 PM EST): Improved since addition of Elavil. Cw Ambien and Elavil. Carotid artery vbkdyqsq60/16/2020Aneurysm of thoracic aorta06/18/2020 Overview (10/02/2023): Last Assessment & Plan: Assessment: [...] his HTN. Encouraged smoking cessation Left ventricular mxaegybf75/15/2020 Overview (10/02/2023): Resolved per Dr. Lisa-anticoagulation was discontinued Resolved per Dr. Lisa-anticoagulation was discontinued Aortic valve /15/2020 Overview (10/02/2023): Status post Aortic valve replacement with 25 mm Chan Magna ease pericardial valve Status post Aortic valve replacement with 25 mm Chan Magna ease pericardial valve Last Assessment & Plan: Assessment: follows up with cardiology, stable and per last ECHO 10/2021. Asymptomatic Last Assessment & Plan: Assessment: follows up with cardiology, stable and per last ECHO 10/2021. Asymptomatic Chronic obstructive pulmonary uutuvkq2206/17/2020 Overview (10/02/2023): Last Assessment & Plan: Assessment: [...] day. Follows up with Pulmonary medicine. Coronary ohknqpwaxmifvfnr94/14/2020 Overview (10/02/2023): Last Assessment & Plan: Assessment: follows up with cardiology, daily aspirin and plavix Last Assessment & Plan: Assessment: follows up with cardiology, daily aspirin and plavix Systolic heart ebcnkva0206/17/2020 Assessment & Plan (10/02/2023 1:43 PM EST): EF improved to 65%. Following [facility] cardiology. Euvolemic. Doing overall ok. On Toprol, Entresto, Aldactone. Resolved Problems ProblemNoted DateDiagnosed DateResolved WrdyIslronsacnfv31/31/202406/07/2025 Olckwa24/ Overview (10/02/2023): Last Assessment & Plan: Assessment: 1ppd for 40 years Last Assessment & Plan: Assessment: 1ppd for 40 years Last Assessment & Plan: Assessment: 1ppd for 40 years Last Assessment & Plan: Assessment: 1ppd for 40 years Lung otzkaza10/04//Lung mass06/17// Family History Medical HistoryRelationNameCommentsCancerFatherHeart diseaseFatherHypertension FatherDiabetesMotherHeart diseaseMotherHypertensionMotherCancerSisterDiabetes SisterHeart diseaseSisterHypertensionSisterRelationNameStatusCommentsFather MotherSister Social History Tobacco UseTypesPacks/DayYears UsedDateSmoking Tobacco: Every DayCigarettes Passive Smoke Exposure: Current Tobacco Cessation:Ready to Q uit: No; Counseling Given: Yes Alcohol UseStandard Drinks/WeekCommentsNot Currently0 (1 standard drink = 0.6 oz pure alcohol)Humiliation, Afraid, Rape, and Kick questionnaireAnswerDate RecordedWithin the last year, have you been afraid of your partner or ex-partner?No10/02/2023Within the last year, have you been humiliated or emotionally abused in other ways by your partner or ex-partner?10/02/2023 Within the last year, have you been kicked, hit, slapped, or otherwise physically hurt by your partner or ex-partner?10/02/2023Within the last year, have you been raped or forced to have any kind of sexual activity by your part ner or ex-partner?10/02/2023Social Connection and Isolation PanelAnswerDate RecordedIn a typical week, how many times do you talk on the phone with family, friends, or neighbors?More than three times a week10/02/2023How often do you get together with friends or relatives?More than three times a week10/02/2023How often do you attend mormonism or sabianism services?Never10/02/2023o you belong to any clubs or organizations such as mormonism groups, unions, fraternal or athletic groups, or school groups?No10/02/2023How often do you attend meetings of the clubs or organizations you belong to?Never10/02/2023re you , , , , never , or living with a partner?Ukyruexn94/29/2024 AUDIT-CAnswerDate RecordedQ1: How often do you have a drink containing alcohol? Never10/02/2023Q2: How many drinks containing alcohol do you have on a typical day when you are drinking?Patient does not drink10/02/2023Q3: How often do you have six or more drinks on one occasion?Never10/02/2023Overall Financial Resource Strain (CARDIA)AnswerDate RecordedHow hard is it for you to pay for the very basics like food, housing, medical care, and heating?Somewhat hard 10/02/2023HQ-2AnswerDate RecordedPatient Health Questionnaire-2 Score1 02/12/2025[facility] [place] [facility] Occupational Health - Occupational Stress QuestionnaireAnswerDate RecordedDo you feel stress - tense, restless, nervous, or anxious, or unable to sleep at night because yourmind is troubled all the time - these days?Rather much10/02/2023Exercise Vital SignAnswerDate RecordedOn average, how many days per week do you engage in moderate to strenuous exercise (like a brisk walk)?0 days10/02/2023On average, how many minutes do you engage in exercise at this level?0 min10/02/2023Hunger Vital SignAnswerDate Recorded Within the past 12 months, you worried that your food would run out before you got the money to buymore.Never true10/02/2023Within the past 12 months, the food you bought just didn't last and you didn't have money to get more.Never true 10/02/2023RAPARE - TransportationAnswerDate RecordedIn the past 12 months, has lack of transportation kept you from medical appointments or from getting medications?Yes10/02/2023In the past 12 months, has lack of transportation kept you from meetings, work, or from getting things needed for daily living?Yes 10/02/2023Housing Stability Vital SignAnswerDate RecordedIn the last 12 months, was there a time when you were not able to pay the mortgage or rent on time?No 10/02/2023Number of Places Lived in the Last YearNot on file10/02/2023In the last 12 months, was there a time when you did not have a steady place to sleep or slept in ashelter (including now)?No10/02/2023Sex and Gender InformationValue Date RecordedSex Assigned at BirthNot on fileLegal UtcOzti9803/22/2023 2:39 PM EDT Gender IdentityNot on fileSexual OrientationNot on file Last Filed Vital Signs Vital SignReadingTime TakenCommentsBlood Vsksjpfa010/5806 1:24 PM EDT Rclir0794 1:24 PM UIWGntbcyclnso01.8 ??C (98.3 ??F)02/12/2025 1:24 PM EDTRespiratory Ktiu476802/12/2025 1:24 PM EDTOxygen Nssxpuduym26%02/12/2025 1:24 PM EDTInhaled Oxygen Concentration--Xbqzki92.6 kg (179 lb 12.8 oz)02/12/2025 1:24 PM GFYGtisbk387.6 cm (5' 6 )09/11/2024 1:35 PM ESTBody Mass Index29.02 09/11/2024 1:35 PM EST Plan of Treatment Not on file Insurance Care Teams Team MemberRelationshipSpecialtyStart DateEnd Date Tom Benton MD [address] [facility] [place] [address] PCP - GeneralFamily Lcmkuyov03/31/24 Margaret Vasques NP Nurse PractitionerFamily Medicine04/16/24
--- OUTSIDE RECORDS SUMMARY | 2025-07-30 13:03 | XMS_ITS | Clinical Summary ---
Author Organization [facility] Address [address] [place] [address] Care Team Providers Care Line Repairer Tower Name Role Phone Shaikh ADILENE Etienne Primary Care Provider [phone] Jj Ambrosio MD Unavailable Maliha Lentz Gabriella DO Unavailable [phone] Jaya Frank MD Unavailable [phone] Allergies No known active allergies Medications MedicationSigDispense QuantityRefillsLast FilledStart DateEnd DateStatus albuterol HFA (PROVENTIL HFA, VENTOLIN HFA) 90 mcg/actuation inhaler albuterol sulfate HFA 90 mcg/actuation aerosol inhaler INHALE 2 PUFFS BY MOUTH EVERY 4 TO 6 HOURS NEEDED for shortness of breath and FOR WHEEZINGActive aspirin, enteric coated (ASPIRIN, ENTERIC COATED) 81 mg EC tablet q 24 HR.Active atorvastatin (LIPITOR) 40 mg tablet atorvastatin 40 mg tablet TAKE 1 TABLET BY MOUTH AT BEDTIMEActive furosemide (LASIX) 40 mg tablet furosemide 40 mg tablet TAKE 1 TABLET BY MOUTH DAILYActive metoprolol succinate ER (TOPROL XL) 100 mg Take 100 mg by mouth once daily.Active nitroglycerin sublingual (NITROQUICK) 0.4 mg SL tablet nitroglycerin 0.4 mg sublingual tablet DISSOLVE 1 TABLET UNDER THE TONGUE NEEDED FOR CHEST PAIN- MAY REPEAT EVERY 5 MINUTES IF NEEDED (MAX 3 DOSES.- IF NO RELIEF CALL 911)Active sacubitril-valsartan (ENTRESTO) 97-103 mg tablet Entresto 97 mg-103 mg tablet TAKE 1 TABLET BY MOUTH TWICE DAILYActive sildenafil (VIAGRA) 25 mg tablet sildenafil 25 mg tablet TAKE 1 TABLET BY MOUTH 30 MINUTES BEFORE sexual activityActive busPIRone (BUSPAR) 15 mg tablet Take 30 mg by mouth two times a day.05/28/2021ctive potassium chloride ER (K-DUR, KLOR-CON) 20 mEq tablet Take 10 mEq by mouth once daily.10/25/2021ctive amLODIPine (NORVASC) 10 mg tablet Take 10 mg by mouth once daily.08/12/2021ctive Nebulizer and Compressor For Neb Indications:Cancer of trachea, bronchus, and lung (HCC),Panlobular emphysema (HCC)1 Each three times daily as needed. 1 Each 10/29/2021ctive Albuterol Sulfate 1.25 mg/3 mL nebulizer solution Indications:Cancer of trachea, bronchus, and lung (HCC),Panlobular emphysema (HCC)Use 1 Ampule via nebulizer every 6 hours as needed for wheezing/shortness of breath. 120 Ampule ctive TRELEGY ELLIPTA 200-62.5-25 mcg inhalation powder INHALE 1 PUFF BY MOUTH DAILY09/09/2022ctive spironolactone (ALDACTONE) 25 mg tablet 01/02/2023ctive clopidogrel (PLAVIX) 75 mg tablet Take 1 tablet by mouth once daily for 15 days. 15 tablet 03/03/2023ctive linaCLOtide (LINZESS) 290 mcg capsule 10/27/2023ctive amitriptyline (ELAVIL) 50 mg tablet Take 50 mg by mouth daily at bedtime.02/01/2024ctive sertraline (ZOLOFT) 50 mg tablet Take 50 mg by mouth once daily.Active Cyanocobalamin-Cobamamide (B-12 PLUS) 5,000-100 mcg subl Indications:Malignant neoplasm of upper lobe of right lung (HCC),Non-caseating granuloma,Lung nodules,Tobacco use disorder,Megaloblastic anemia due to vitamin B12 deficiencyDissolve 1 tablet under the tongue once daily. 90 tablet tive Active Problems ProblemNoted DateDiagnosed DatePanlobular ddnooggos82/17/2022oronary agztotldohjbokdi45/04/2022 Assessment & Plan (01/05/2022 11:23 AM EDT): Assessment: follows up with cardiology, daily aspirin and plavix Chronic diastolic CHF (congestive heart failure)01/05/2022 Assessment & Plan (01/05/2022 11:22 AM EDT): Assessment: follows up with cardiology, stable and asymptomatic. daily lasix Aortic valve kdocbian84/04/2022 Assessment & Plan (01/05/2022 11:21 AM EDT): Assessment: follows up with cardiology, stable and per last ECHO 10/2021. Asymptomatic Aneurysm of thoracic aorta01/05/2022 Assessment & Plan (01/05/2022 11:21 AM EDT): Assessment: follows up with cardiology, stable and unchanged per last ECHO 10/2021. Asymptomatic Acute thrombus of left akjboissm24/04/2022ortic valve kgsjdmcu26/04/2022 Assessment & Plan (01/05/2022 11:21 AM EDT): Assessment: s/p 06/2020 Carotid artery vxpicqlr12/04/2022Lung witexvb4401/05/2022Hx of CABG01/05/2022 Assessment & Plan (01/05/2022 11:23 AM EDT): Assessment: 2019, stable. Follows up with cardiology HTN (hypertension)01/05/2022 Assessment & Plan (01/05/2022 11:24 AM EDT): Assessment: managed with med, stable 01/05/2022 127/59 10/29/2021 119/56 Djwfut5201/05/2022 Assessment & Plan (01/05/2022 11:25 AM EDT): Assessment: 1ppd for 40 years COPD (chronic obstructive pulmonary disease)01/05/2022 Assessment & Plan (01/05/2022 11:26 AM EDT): Assessment: managed with inhalers, stable HLD (hyperlipidemia)01/05/2022 Assessment & Plan (01/05/2022 11:26 AM EDT): Assessment: managed with med, stable Orngxbxglv51/04/2022 Assessment & Plan (01/05/2022 11:29 AM EDT): Assessment: managed with med, stable Malignant neoplasm of overlapping sites of right lung10/29/2021 Assessment & Plan (01/05/2022 11:24 AM EDT): Assessment: s/p lobectomy September 2020, stable Follows up with PCP Encounters DateTypeDepartmentCare LoenDovshwflcax07/24/2025 2:40 PM EDTVisit (SP) Office Hematology/Oncology [address] [place] [address] [place] [address] Jaya Frank MD Malignant neoplasm of unspecified part of unspecified bronchus or lung (HCC) (Primary Dx); Lung nodules; Personal history of nicotine dependence; Personal history of malignant neoplasm of bronchus and lung06/27/2025Travel 06/19/2025 1:31 PM EDT - 06/19/2025 11:59 PM EDTHospital Encounter Radiology Pet [facility] [place] [address] Malignant neoplasm of unspecified part of unspecified bronchus or lung (HCC) [C34.90] Discharge Disposition: Home06/19/20252985Xxufzj94/04/2025 3:15 PM EDTInfusion Center Hematology/Oncology [address] [place] [address] [place] [address] Cancer of trachea, bronchus, and lung (HCC) (Primary Dx)05/08/2025 3:00 PM EDT Visit (SP) Office Hematology/Oncology [address] [place] [address] [place] [address] Glenna Cabrera, AMUSEMENT PARK ENTERTAINER.GERIATRIC PHYSICIAN Malignant neoplasm of unspecified part of unspecified bronchus or lung (HCC) (Primary Dx); Fall (on) (from) unspecified stairs and steps, subsequent encounter; Multiple fractures of ribs, left side, subsequent encounter for fracture with routine healing; Pain in thoracic spine05/08/2025Telephone Cancer Appts [facility] [place] [address] Glenna Cabrera APRN.GERIATRIC PHYSICIAN FYI-No Action Djaeqn1605/08/2025Refill [facility] [address] [place] [address] Natacha Cantu [facility] Refill Enukslr1105/08/2025Travelfrom Last 3 Months Family History Medical HistoryRelationCommentsCancerFatherHeart diseaseFatherHypertensionFather DiabetesMotherHeart diseaseMotherHypertensionMotherCancerSisterDiabetesSister Heart diseaseSisterHypertensionSisterRelationStatusCommentsFatherMotherSister Social History Tobacco UseTypesPacks/DayYears UsedDateSmoking Tobacco: Every FegAwcbdyebfr544 Passive Smoke Exposure: CurrentSmokeless Tobacco: Never Tobacco Cessation:Ready to Q uit: Not Asked; Counseling Given: Not Answered Alcohol UseStandard Drinks/WeekCommentsNot Currently0 (1 standard drink = 0.6 oz pure alcohol)PHQ-2AnswerDate RecordedPHQ-2 aulok307rea Deprivation IndexAnswerDate RecordedNational Score (1-100), lower number is lower riskNot on file06/07/2021tate Score (1-10), lower number is lower riskNot on file 06/07/2021ata from: https://www.neighborhoodatlas.medicine.[facility].edu/. Last address used for calculationNot on file06/07/2021ex and Gender InformationValue Date RecordedSex Assigned at BirthNot on fileLegal LxlAjsm5601/05/2021 8:57 AM EDT Gender IdentityNot on fileSexual OrientationNot on file Last Filed Vital Signs Vital SignReadingTime TakenCommentsBlood Emskrqjt598/5610 2:26 PM EDT Mnuxa937306/27/2025 2:26 PM WMCIxvkzlfmzed69.2 ??C (97.1 ??F)06/27/2025 2:26 PM EDTRespiratory Rngz3344 2:26 PM EDTOxygen Uubyiwfyvi89%06/27/2025 2:26 PM EDTInhaled Oxygen Concentration--Yctdub51.9 kg (167 lb 5.3 oz)06/27/2025 2:26 PM JBIFqhmus859.6 cm (5' 5.98 )05/08/2025 2:52 PM EDTBody Mass Index27.02 05/08/2025 2:52 PM EDT Plan of Treatment DateTypeDepartmentCare Team (Latest Contact Info)Xkudreofezc01/08/2026 2:15 PM ESTAppointment Radiology Pet CT [address] [place] [address] CT chest w/ con09/19/2025 3:40 PM ESTVisit (SP) Office Hematology/Oncology [address] [place] [address] Jaya Frank MD [address] [place] [address] scanHealth MaintenanceDue DateLast DoneCommentsAbdominal Aortic Aneurysm Ioeprwguw1951nnual PCP Team Chronic Disease Visit 1969Anxiety Wobrofyei41/02/1969Hepatitis C Rdchbhodu23/02/1969LDL Rvkzdumlhsc69/02/1969DTaP,Tdap,Td Vaccine (1 - Tdap)1970Pneumococcal Vaccine: 50+ (1 of 2 - PCV)1970Lipid Yjflgbelq96/02/1986CT Colonography 03/05/19967215Agxodurjuvk54/02/1996Fecal Occult Blood1996Sigmoidoscopy 1996Shingrix Vaccine (1 of 2)2001RSV Vaccine (1 - Risk 60-74 years 1-dose series)2011Medicare Annual Wellness Visit03/04/2016Cologuard (FIT-DNA)Colorectal Cancer Zlvyajvdf89/21/2023dvance Directive Nfhsbezpnb63/01/2025ovid-19 Vaccine ( - season)2025 Influenza Vaccine (#1)2025Diabetes Wibkyoyvs69, 04/24/2025, 04/23/2025, Additional history exists Procedures Procedure NamePriorityDate/TimeAssociated DiagnosisCommentsCT CHEST W IVCON Miqyqwm9006/19/2025 2:31 PM EDT Malignant neoplasm of unspecified part of unspecified bronchus or lung (HCC) COMPREHENSIVE METABOLIC XAJQOPgbxiba18/16/2025 1:34 PM EDT Cancer of trachea, bronchus, and lung (HCC) CBC + QOELCycbgpt02/16/2025 1:34 PM EDT Cancer of trachea, bronchus, and lung (HCC) FERRITIN MVCWadqqwa76/16/2025 1:34 PM EDT Cancer of trachea, bronchus, and lung (HCC) IRON + EHJRTgvqgcl56/16/2025 1:34 PM EDT Cancer of trachea, bronchus, and lung (HCC) FOLATE AVEBCJfftvrc28/16/2025 1:34 PM EDT Cancer of trachea, bronchus, and lung (HCC) VITAMIN B12 QNAEIZusvknq72/16/2025 1:34 PM EDT Cancer of trachea, bronchus, and lung (HCC) EXTERNAL HUOYLTDFWK60/09/2025 12:37 PM EDT EXTERNAL BSPCBWN4005/13/2025 12:37 PM EDT EXTERNAL LAB05/13/2025 12:37 PM EDT EXTERNAL LAB05/13/2025 12:37 PM EDT from Last 3 Months Results * CT CHEST W IVCON (06/19/2025 2:31 PM EDT)Anatomical RegionLateralityModality ChestNuclear Medicine, Nuclear MedicineSpecimen (Source)Anatomical Location / LateralityCollection Method / VolumeCollection TimeReceived Time06/19/2025 2:31 PM EDT Impressions 06/20/2025 12:15 PM EDT IMPRESSION: 1. ??Newly apparent right upper lobe collapse, the right upper lobe bronchus is not well visualized. ??If necessary, consider further workup with direct visualization. 2. ??Numerous bilateral subcentimeter pulmonary nodules have progressed in size, largest now measuring 9 mm, as above. 3. ??No substantial intrathoracic adenopathy is identified. 4. ??4.8 cm aneurysmal dilation of the ascending thoracic aorta appears stable. 5. ??Newly apparent subacute/healing fractures involving multiple left ribs. Transcribe Date/Time: Jun 20 2025 10:06A Dictated by: LORRIE KAPADIA MD This examination was interpreted and the report reviewed and electronically signed by: LORRIE KAPADIA MD on Jun 20 2025 12:13PM ??EST Thank you for allowing us to participate in the care of your patient. Should there be any questions regarding this interpretation, please call [phone]. If you are unable to reach us at the number above, please feel free to contact [facility] at [phone]. Narrative 06/20/2025 12:15 PM EDT * * *Final Report* * * DATE OF EXAM: Jun 19 2025 ??2:31PM ?? NRC ?? 0539 ??- ??CT CHEST W IVCON ??/ PROCEDURE REASON: Malignant neoplasm of unspecified part of unspecified bronchus or lung (HCC) ? * * * * Physician Interpretation * * * * RESULT: EXAMINATION: ??CHEST CT WITH CONTRAST CLINICAL HISTORY: Lung carcinoma Technique: ??Spiral CT acquisition of the chest from the thoracic inlet to the upper abdomen following IV contrast. MQ: ??CTCW_6 Contrast: ??50 mL Omnipaque [address] Radiation dose: Integrated Dose-length product (DLP) for this visit = ?? 250 mGy*cm CT Dose Reduction Employed: Automated exposure control (AEC) Comparison: CT chest 01/30/2025 RESULT: Limitations: None. Lines, tubes, and devices: Left atrial appendage clip remains in place.. Lung parenchyma , airways, and pleural space: Mild volume loss involving the right hemithorax, mild elevation of the right hemidiaphragm is again appreciated. ??Moderate centrilobular emphysematous changes are again noted. ??The trachea and left mainstem bronchus is patent. ??Narrowing of the right mainstem bronchus, occlusion at the proximal right upper lobe bronchus is noted. ??Newly apparent right upper lobe collapse is identified. Several bilateral subcentimeter pulmonary nodules are again identified, progressed: For example, a 9 mm subpleural left upper lobe nodule is appreciated, previously 5 mm, image 67, series 4. Several additional left-sided subcentimeter pulmonary nodules, for example, image 119 145, progressed. Newly apparent 5 mm left lower lobe nodule right lower lobe nodule, image 130, series 4 is noted. 6 mm right lower lobe nodule more inferiorly has progressed in size, image 149, series 4. 7 mm right lower lobe nodule, image 113, series 4 also progressed in size. Lower neck, lymph nodes, and mediastinum: The visualized thyroid gland is stable. ??No substantial supraclavicular or axillary adenopathy is identified. Scattered subcentimeter mediastinal lymph nodes are identified, none of which appear pathologically enlarged. ??Postoperative changes of right hilum, mild soft tissue prominence at the right hilum, unchanged. ??No substantial mediastinal or hilar adenopathy is appreciated. Heart, pericardium, and thoracic vessels: Coronary artery calcification is noted. ??Aneurysmal dilation of the ascending thoracic aorta measuring approximately 4.8 cm, unchanged. ??No substantial pericardial effusion is identified. Bones/Soft Tissues: Postoperative changes, compatible with prior median sternotomy. ?? Degenerative change within the thoracic spine is noted. ??Subacute/healing fractures involving the left 3rd through 8th ribs are identified, a new finding. Upper Abdomen: Limited images through the upper abdomen are stable. Cigarette Inspector (topogram) images: No additional findings. Procedure Note Provider, [facility] [place] - 06/20/2025 * * *Final Report* * * DATE OF EXAM: Jun 19 2025 2:31PM [facility] 0539 - CT CHEST W IVCON [...] Dose-length product (DLP) for this visit = 250 mGy*cm CT Dose Reduction Employed: Automated exposure control (AEC) Comparison: CT chest 01/30/2025 RESULT: Limitations: None. Lines, tubes, and devices: Left atrial appendage clip remains in place.. Lung parenchyma , airways, and pleural space: Mild volume loss involving the right hemithorax, mild elevation of the right hemidiaphragm is again appreciated. Moderate centrilobular emphysematous changes are again noted. The trachea and left mainstem bronchus is patent. Narrowing of the right mainstem bronchus, occlusion at the proximal right upper lobe bronchus is noted. Newly apparent right upper lobe collapse is identified. Several bilateral subcentimeter pulmonary nodules are again identified, progressed: For example, a 9 mm subpleural left upper lobe nodule is appreciated, previously 5 mm, image 67, series 4. Several additional left-sided subcentimeter pulmonary nodules, for example, image 119 145, progressed. Newly apparent 5 mm left lower lobe nodule right lower lobe nodule, image 130, series 4 is noted. 6 mm right lower lobe nodule more inferiorly has progressed in size, image 149, series 4. 7 mm right lower lobe nodule, image 113, series 4 also progressed insize. Lower neck, lymph nodes, and mediastinum: The visualized thyroid gland is stable. No substantial supraclavicular or axillary adenopathy is identified. Scattered subcentimeter mediastinal lymph nodes are identified, none of which appear pathologically enlarged. Postoperative changes of right hilum, mild soft tissue prominence at the right hilum, unchanged. No substantial mediastinal or hilar adenopathy is appreciated. Heart, pericardium, and thoracic vessels: Coronary artery calcification is noted. Aneurysmal dilation of the ascending thoracic aorta measuring approximately 4.8 cm, unchanged. No substantial pericardial effusion is identified. Bones/Soft Tissues: Postoperative changes, compatible with prior median sternotomy. Degenerative change within the thoracic spine is noted. Subacute/healing fractures involving the left 3rd through 8th ribs are identified, a new finding. Upper Abdomen: Limited images through the upper abdomen are stable. Cigarette Inspector (topogram) images: No additional findings. IMPRESSION IMPRESSION: 1. Newly apparent right upper lobe collapse, the right upper lobe bronchus is not well visualized. If necessary, consider further workup with direct visualization. 2. Numerous bilateral subcentimeter pulmonary nodules have progressed in size, largest now measuring 9 mm, as above. 3. No substantial intrathoracic adenopathy is identified. 4. 4.8 cm aneurysmal dilation of the ascending thoracic aorta appears stable. 5. Newly apparent subacute/healing fractures involving multiple left ribs. Transcribe Date/Time: Jun 20 2025 10:06A Dictated by: LORRIE KAPADIA MD This examination was interpreted and the report reviewed and electronically signed by: LORRIE KAPADIA MD on Jun 20 2025 12:13PM EST Thank you for allowing us to participate in the care of your patient. Should there be any questions regarding this interpretation, please call [phone]. If you are unable to reach us at the number above, please feel free to contact [facility] eRadiology at [phone]. Authorizing ProviderResult TypeResult StatusHolly Rick AGUILAR.CNPCT-PAMAFinal Result * (ABNORMAL) VITAMIN B12 (06/19/2025 1:34 PM EDT)ComponentValueRef RangeTest MethodAnalysis TimePerformed AtPathologist SignatureVitamin B12>2,000(H)232 - 1,245 pg/mL06/20/2025 12:12 AM EDTCPARKWOOD [facility]ITAL MAIN LABSpecimen (Source) Anatomical Location / LateralityCollection Method / VolumeCollection Time Received TimeBloodBLOOD SPECIMEN / UnknownVenipuncture / Jcvumlo6706/19/2025 1:34 PM EDT1 1:52 PM EDT Narrative Authorizing ProviderResult TypeResult StatusJaimearleth Jensen APRN.CNPLABORATORYFinal ResultPerforming OrganizationAddressCity/State/ZIP CodePhone Number [facility] [address] * IRON AND TIBC (06/19/2025 1:34 PM EDT)ComponentValueRef RangeTest Method Analysis TimePerformed AtPathologist CgnvolohaQaoy6841 - 186 ug/dL06/20/2025 12:05 AM EDTCPARKWOOD [facility]ITAL MAIN BRWZQUV019169 - 386 ug/dL06/20/2025 12:05 AM EDTCPARKWOOD HOSPITAL MAIN LABTransferrin Gcrrsvsfyn31.515.0 - 57.0 %06/20/2025 12:05 AM EDC[facility] LABSpecimen (Source)Anatomical Location / LateralityCollection Method / VolumeCollection TimeReceived TimeBloodBLOOD SPECIMEN / UnknownVenipuncture / Kgnreda6006/19/2025 1:34 PM EDT1 1:52 PM EDT Narrative Authorizing ProviderResult TypeResult StatusJaimee Mikey KHANN.CNPLABORATORYFinal ResultPerforming OrganizationAddressCity/State/ZIP CodePhone Number [facility] [address] [place] [address], [place] * FOLATE, SERUM (06/19/2025 1:34 PM EDT)ComponentValueRef RangeTest Method Analysis TimePerformed AtPathologist SignatureFolate8.6>4.7 ng/mL06/20/2025 12:12 AM [facility] LABSpecimen (Source)Anatomical Location / LateralityCollection Method / VolumeCollection TimeReceived TimeBloodBLOOD SPECIMEN / UnknownVenipuncture / Drjfmey4706/19/2025 1:34 PM EDT1 1:52 PM EDT Narrative Authorizing ProviderResult TypeResult StatusJaimee Mikey AMUSEMENT PARK ENTERTAINER.CNPLABORATORYFinal ResultPerforming OrganizationAddressCity/State/ZIP CodePhone Number [facility] [address] [place] [address], [place] * FERRITIN (06/19/2025 1:34 PM EDT)ComponentValueRef RangeTest MethodAnalysis TimePerformed AtPathologist PhrmxptvrNriivtnl256.030.3 - 565.7 ng/mL06/20/2025 12:12 AM [facility] LABSpecimen (Source)Anatomical Location / LateralityCollection Method / VolumeCollection TimeReceived TimeBloodBLOOD SPECIMEN / UnknownVenipuncture / Nqjfkqf3006/19/2025 1:34 PM EDT1 1:52 PM EDT Narrative Authorizing ProviderResult TypeResult StatusJasim Jensen AMUSEMENT PARK ENTERTAINER.CNPLABORATORYFinal ResultPerforming OrganizationAddressCity/State/ZIP CodePhone Number [facility] [address] [place] [id number], [place] * (ABNORMAL) COMPREHENSIVE METABOLIC PANEL (06/19/2025 1:34 PM EDT)Component ValueRef RangeTest MethodAnalysis TimePerformed AtPathologist Signature Protein, Total7.26.3 - 8.0 g/dL06/19/2025 2:30 PM EDTHE[facility] LABAlbumin4.03.9 - 4.9 g/dL06/19/2025 2:30 PM EDTHEALTHS[facility] LABCalcium, Total9.38.5 - 10.2 mg/dL06/19/2025 2:30 PM EDTNORTRESEARCH BELTON HOSPITALST [facility] LABBilirubin, Total0.20.2 - 1.3 mg/dL 06/19/2025 2:30 PM EDTHEALTHS[facility] LABAlkaline Iovudsitpel644(H)38 - 113 U/L1 2:30 PM [facility] GZHKAN38(L)14 - 40 U/L1 2:30 PM EDTHEALTHS[facility] LABALT9(L)10 - 54 U/L1 2:30 PM EDWYOMING [facility] MZGYwdhquv6609 - 99 mg/dL06/19/2025 2:30 PM [facility] LABComment: The [place] [employer] Association (ADA) provides guidance for cutoff values for fasting glucose andrandom glucose. The ADA defines fasting as no [...] Standards of Medical Care in Diabetes 2016, [place] [employer]. Diabetes Care. 2016.39(Suppl 1). BMR528 - 24 mg/dL06/19/2025 2:30 PM EDWY[facility] LAB Creatinine0.820.73 - 1.22 mg/dL06/19/2025 2:30 PM EDTNORTRESEARCH BELTON [facility]PITALST [facility] WFUGwwzll488484 - 144 mmol/L1 2:30 PM EDTNORTRESEARCH BELTON HOSPITALST [facility] LABPotassium4.03.7 - 5.1 mmol/L1 2:30 PM EDTNORTRESEARCH BELTON HOSPITALST [facility] YCHZzznmoge332(H)98 - 107 mmol/L1 2:30 PM EDT [facility] PZBUM21736 - 30 mmol/L1 2:30 PM EDT [facility] LABAnion Swh508 - 15 mmol/L1 2:30 PM EDTNORTUNIVERSITY OF MICH[facility] LABEstimated Glomerular Filtration Rate92 >=60 mL/min/1.73m 06/19/2025 2:30 PM EDTNOTEAYS VALLEY [facility]ER [facility]ENTER LABComment:Estimated Glomerular Filtration Rate (eGFR) is calculated using the 2020 CKD-EPI creatinine equation. This equation utilizes serum creatinine, sex, and age as parameters. The creatinine assay has traceable calibration to isotope dilution- mass spectrometry. Refer to KDIGO guidelines for clinical interpretation. In patients with unstable renal function, e.g. those with acute kidney injury, the eGFRmay not accurately reflect actual GFR.Specimen (Source)Anatomical Location / LateralityCollection Method / VolumeCollection TimeReceived TimeBloodBLOOD SPECIMEN / UnknownVenipuncture / Ssshksa8006/19/2025 1:34 PM EDT1 1:53 PM EDT Narrative Authorizing ProviderResult TypeResult StatusJaimee Mikey AMUSEMENT PARK ENTERTAINER.CNPLABORATORYFinal ResultPerforming OrganizationAddressCity/State/ZIP CodePhone Number [facility] [address] [place] [address] * (ABNORMAL) COMPLETE BLOOD COUNT AND DIFFERENTIAL (06/19/2025 1:34 PM EDT) ComponentValueRef RangeTest MethodAnalysis TimePerformed AtPathologist SignatureWBC8.323.70 - 11.00 k/uL06/19/2025 1:55 PM EDTNORTUNIVERSITY OF MICHIGAN [facility]ALTH LABRBC4.234.20 - 6.00 m/uL06/19/2025 1:55 PM EDTNOTEAYS VALLEY [facility] IDNNcdphfpops88.8(L)13.0 - 17.0 g/dL06/19/2025 1:55 PM EDTHEALTHSOU[facility] DKSNgdernmrvz16.339.0 - 51.0 %06/19/2025 1:55 PM EDTNORTUNIVERSITY OF [facility] TMFSNT42.980.0 - 100.0 fL 06/19/2025 1:55 PM EDTNOTEAYS VALLEY [facility] GSTERM54.326.0 - 34.0 pg06/19/2025 1:55 PM EDTNOTEAYS VALLEY [facility] OWPFWZW02.630.5 - 36.0 g/dL06/19/2025 1:55 PM EDTNOTEAYS VALLEY [facility] LABRDW-CV13.0 11.5 - 15.0 %06/19/2025 1:55 PM EDTNOTEAYS VALLEY [facility] LAB Platelet Uvova367919 - 400 k/uL06/19/2025 1:55 PM EDTNOTEAYS VALLEY CAN[facility]ER [facility]ENTER LABMPV9.39.0 - 12.7 fL06/19/2025 1:55 PM [facility] LABNeutrophils %61.1%06/19/2025 1:55 PM [facility] LABAbs Neut5.091.45 - 7.50 k/uL06/19/2025 1:55 PM [facility] LABLymphocytes %21.4%06/19/2025 1:55 [facility]Abs Lymph1.781.00 - 4.00 k/uL06/19/2025 1:55 PM EDT [facility] LABMonocytes %11.9%06/19/2025 1:55 PM EDT [facility] LABAbs Mono0.99(H)<0.87 k/uL06/19/2025 1:55 [facility] LABEosinophils %4.1%06/19/2025 1:55 PM [facility] LABAbs Eosin0.34<0.46 k/uL06/19/2025 1:55 PM ED[facility] LABBasophils %1.0%06/19/2025 1:55 PM [facility] LABAbs Baso0.08<0.11 k/uL06/19/2025 1:55 PM [facility] LABImmature Granulocytes %0.5% 06/19/2025 1:55 PM [facility] LABAbs Immature Gran 0.04<0.10 k/uL06/19/2025 1:55 PM [facility] LABNRBC 0.0/100 WBC06/19/2025 1:55 PM [facility] LABAbsolute nRBC<0.01<0.01 k/uL06/19/2025 1:55 PM [facility] LABDiff TokdSeqf77/16/2025 1:55 PM [facility] Specimen (Source)Anatomical Location / LateralityCollection Method / Volume Collection TimeReceived TimeBloodBLOOD SPECIMEN / UnknownVenipuncture / Wzfrpgb8106/19/2025 1:34 PM EDT1 1:52 PM EDT Narrative Authorizing ProviderResult TypeResult StatusJaimee Mikey GRCNPLABORATORYFinal ResultPerforming OrganizationAddressCity/State/ZIP CodePhone Number [facility] [address] [place] [address] * EXTERNAL CARDIOLOGY (05/13/2025 12:37 PM EDT) Narrative Authorizing ProviderResult TypeResult StatusExternal Provider PA-CCARDIOLOGY Final Result * EXTERNAL IMAGING (05/13/2025 12:37 PM EDT)Anatomical RegionLateralityModality Other Narrative Authorizing ProviderResult TypeResult StatusExternal Provider PA-CRADIOLOGYFinal Result * EXTERNAL LAB (05/13/2025 12:37 PM EDT) Only the most recent of2 resultswithin the time period is included. Narrative Authorizing ProviderResult TypeResult StatusExternal Provider PA-CLABORATORY Final Result from Last 3 Months Insurance Care Teams Team MemberRelationshipSpecialtyStart DateEnd Date Shaikh Etienne MD [address] [place] [address] PCP - GeneralPrimary Care01/13/21 Jj Ambrosio MD [address] [place] [address] [place] [address] CardiologistCardiology01/04/22 Maliha Lentz DO [address] [place] [address] Internal Medicine09/15/22 Jaya Frank MD [address] [place] [address] [place] [address] Hematology/Oncology05/08/25
--- OUTSIDE RECORDS SUMMARY | 2025-07-30 13:03 | XMS_ITS | Clinical Summary ---
Author Organization [facility] Address [address] [place] [address] Care Team Providers Care Architecture Instructor Name Role Phone Anayeli Heaton MD Primary Care Provider [phone] Allergies No known active allergies Medications MedicationSigDispense QuantityRefillsLast FilledStart DateEnd DateStatus albuterol 90 mcg/actuation inhaler INHALE 2 PUFFS BY MOUTH EVERY 4 TO 6 HOURS NEEDED SHORTNESS OF BREATH and FOR WHEEZINGActive amLODIPine (Norvasc) 10 mg tablet Take 1 tablet by mouth in the morning.Active aspirin 81 mg EC tablet Take 1 tablet every day by oral route.Active atorvastatin (Lipitor) 40 mg tablet Take 1 tablet by mouth at bedtime.Active busPIRone (Buspar) 15 mg tablet Take 1 tablet by mouth in the morning, afternoon, and at bedtime.Active clopidogrel (Plavix) 75 mg tablet Take 1 tablet by mouth in the morning.Active furosemide (Lasix) 40 mg tablet Take 1 tablet by mouth in the morning.Active nitroglycerin (Nitrostat) 0.4 mg SL tablet DISSOLVE 1 TABLET UNDER THE TONGUE NEEDED FOR CHEST PAIN- MAY REPEAT EVERY 5 MINUTES IF NEEDED (MAX 3 DOSES.- IF NO RELIEF CALL 911)Active sildenafil (Viagra) 25 mg tablet TAKE 1 TABLET BY MOUTH 30 MINUTES BEFORE sexual activityActive xoenplpzcev-ramwnncxh-rbfrtcmz (Trelegy Ellipta) 100-62.5-25 mcg blister with device Inhale.Active zolpidem (Ambien) 10 mg tablet Take 10 mg by mouth in the morning.12/07/2022ctive albuterol 2.5 mg /3 mL (0.083 %) nebulizer solution Take 2.5 mg by nebulization every 6 (six) hours if needed for wheezing.Active Linzess 145 mcg capsule TAKE 1 CAPSULE BY MOUTH IN THE MORNING BEFORE MEALS DO NOT CRUSH OR CHEW 10/02/2023ctive spironolactone (Aldactone) 25 mg tablet Indications:Edema, unspecified typeTake 1 tablet (25 mg) by mouth in the morning. 90 tablet 303/5036Active metoprolol succinate XL (Toprol-XL) 100 mg 24 hr tablet Indications:Benign hypertensive heart disease with heart failure (CMS/HCC)Take 1 tablet (100 mg) by mouth once daily as directed. 90 tablet 3065Active sacubitril-valsartan (Entresto) 97-103 mg tablet Indications:Heart failure with improved ejection fraction (HFimpEF) (CMS/HCC) Take 1 tablet by mouth two times daily. 60 tablet 1105Active sertraline (Zoloft) 100 mg tablet Take 100 mg by mouth in the morning.Active potassium chloride CR (Klor-Con M10) 10 mEq ER tablet Indications:Heart failure with improved ejection fraction (HFimpEF) (CMS/HCC) Take 1 tablet (10 mEq) by mouth every other day. Do not crush or chew. 45 tablet 310516Active Active Problems ProblemNoted DateDiagnosed DateDisplaced fracture of coracoid process of left shoulder with routine icootzw4505/06/20254351Rowjwasmypui82/31/2024GERD (gastroesophageal reflux disease)04/03/2024Head eijogm9502/26/2024 Overview (04/03/2024): Last Assessment & Plan: Fell at home, no LOC but reports head trauma and has mild headache since then. On ASA, plavix. Willorder CTH. No neurological symptoms. Left leg pain01/01/2024 Overview (04/03/2024): Last Assessment & Plan: Left [...] for acute pain Personal history of colonic lcszkn96ositive colorectal cancer screening using Cologuard testdenocarcinoma of right lung Overview (10/06/2023): Last Assessment & Plan: S/p lobectomy in 2019. Suspicions PET scan with positive cologuard in large bowel - negative Colonoscopy 04/25 Patient continues to smoke. Encouraged smoking cessation. Following Oncology. Chronic idiopathic vjmbozcbvsma35 Overview (10/06/2023): Last Assessment & Plan: Chronic [...] constipation without any benefit. First degree atrioventricular blockIschemic cardiomyopathy Medicare annual wellness visit, /29/2024 10/06/2023 Overview (10/06/2023): Last Assessment & Plan: Patient here for Medicare Wellness. Reviewed medical, surgical and social history. Reviewed medication list. Patient screened for depression, fall risk, cognitive impairment. Patient provided appropriate education on chronic medical conditions, prescription medications. Patient's health related questions and concerns addressed and answered. Upto date on Colon cancer screening. Patient recommended to get Influenza and Pneumonia vaccine. Tobacco uhdaxankjw77 Overview (10/06/2023): Last Assessment & Plan: Patient counseled on smoking/tobacco cessation. Patient educated on harmful effects of smoking cigarettes/tobacco including increased risk of cardiovascular diseases, chronic lung disease and multiple cancers. Dyspnea on rijzgqki44/15/2022anlobular dxyerrvfw68/17/2022Chronic diastolic heart lebwebj2506/20/2022History of aortic valve replacement with bioprosthetic valve06/20/2022History of coronary artery bypass graft2Depression 01/05/2022 Overview (01/02/2023): Last Assessment & Plan: Assessment: managed with med, stable Last Assessment & Plan: Assessment: managed with med, stable HLD (hyperlipidemia)01/05/2022 Overview (01/02/2023): Last Assessment & Plan: Assessment: managed with med, stable Last Assessment & Plan: Assessment: managed with med, stable HTN (hypertension)01/05/2022 Overview (01/02/2023): Last Assessment & Plan: Assessment: managed with med, stable 01/05/2022 127/59 10/29/2021 119/56 Last Assessment & Plan: Assessment: managed with med, stable 01/05/2022 127/59 10/29/2021 119/56 Lung fwfwzqx7001/05/20221901Tzssnp77/04/2022 Overview (01/02/2023): Last Assessment & Plan: Assessment: 1ppd for 40 years Last Assessment & Plan: Assessment: 1ppd for 40 years Presence of prosthetic heart valve/10/2023 Overview (10/06/2023): Last Assessment & Plan: Assessment: s/p 06/2020 Cancer of trachea, bronchus, and lung10/29/2021 Overview (01/02/2023): Last Assessment & Plan: Assessment: s/p lobectomy September 2020, stable Follows up with PCP Last Assessment & Plan: Assessment: s/p lobectomy September 2020, stable Follows up with PCP Uwiwkjpa12/03/2020Carotid artery bverdfea95/16/2020Aneurysm of thoracic aorta 06/18/2020Aortic valve sqevjsxi21/15/2020 Overview (06/20/2022): Status post Aortic valve replacement with 25 mm Chan Magna ease pericardial valve Left ventricular ixvrbzlr60/15/2020 Overview (06/20/2022): Resolved per Dr. Lisa-anticoagulation was discontinued Chronic obstructive lung bhbehks8406/17/2020Coronary opgsajhuiudkjxtm40/14/2020 Lung mass06/17/2020Systolic heart nenmmmg5806/17/2020 Encounters DateTypeDepartmentCare KbczXwgojkobzej11/06/2025 1:15 PM EDTOffice Visit [address] [address] Jj Ambrosio MD Musculoskeletal chest pain (Primary Dx); Coronary artery disease involving [place] coronary artery of [place] heart without angina pectoris; Heart failure with improved ejection fraction (HFimpEF) (CMS/[facility]); S/P aortic valve replacement with bioprosthetic valve; Aneurysm of ascending aorta without rupture; Bilateral carotid artery stenosis; History of coronary artery bypass graft; S/P left atrial appendage ligationfrom Last 3 Months Family History Medical HistoryRelationNameCommentsHeart diseaseFatherDiabetesMotherHeart diseaseMotherCoronary artery diseaseSisterRelationNameStatusCommentsFather DeceasedMotherDeceasedSister Social History Tobacco UseTypesPacks/DayYears UsedDateSmoking Tobacco: Every DayCigarettes Smokeless Tobacco: Never Tobacco Cessation:Ready to Q uit: Not Asked; Counseling Given: Not Answered Alcohol UseStandard Drinks/WeekCommentsYes0 (1 standard drink = 0.6 oz pure alcohol)occasionalUT Safety & EnvironmentAnswerDate RecordedFear of Current or Ex-PartnerNot on file10/26/2023Emotionally AbusedNot on file10/26/2023hysically AbusedNot on file10/26/2023Sexually AbusedNot on file10/26/2023hysically or Sexually AbusedNot on file10/26/2023Sex and Gender InformationValueDate Recorded Sex Assigned at YhqnrJyxh40/28/2025 12:56 PM EDTLegal JzzLfnt1103/03/2022 12:31 AM EDTGender KedljgrhBuld46/28/2025 12:56 PM EDTSexual OrientationHeterosexual or Imhinizu24/28/2025 12:56 PM EDT Last Filed Vital Signs Vital SignReadingTime TakenCommentsBlood Rqctxoei341/6310 1:19 PM EDT Xkiqv0818 1:19 PM ZOHNofqnaflvve43.8 ??C (96.4 ??F)10/12/2020 11:35 AM ESTRespiratory Upxm156410/12/2020 11:35 AM ESTOxygen Jzkkpngtgz22%06/09/2025 1:19 PM EDTInhaled Oxygen Concentration--Weight7.258 kg (16 lb)06/09/2025 1:19 PM EDT Exvtbp370.7 cm (5' 8 )06/09/2025 1:19 PM EDTBody Mass Index2.431 1:19 PM EDT Plan of Treatment Health MaintenanceDue DateLast DoneCommentsCT Svuedhpihoou1951olonoscopy 1951FIT-DNA1951FOBT1950Medicare Annual Wellness (AWV) 1950 5561Gjgxmfqwsowze1951epression Sryeblslc66/02/1963Pneumococcal Vaccine: 50+ Years (1 of 2 - PCV)1970Adult Dtvsbri8303/05/1973Zoster Vaccines (1 of 2)2001Fall Risk Kevjrfhzp89/02/2016Colorectal Cancer Wyxsmxxrg91/21/3491PNO28COVID-19 Vaccine ( - season) 2025Influenza Vaccine (#1)2025HIB VaccinesAged OutNo longer eligible based on patient's age to complete this topicHPV VaccinesAged OutNo longer eligible based on patient's age to complete this topicIPV VaccinesAged OutNo longer eligible based on patient's age to complete this topicMeningococcal B VaccineAged OutNo longer eligible based on patient's age to complete this topic Meningococcal VaccineAged OutNo longer eligible based on patient's age to complete this topicRotavirus VaccinesAged OutNo longer eligible based on patient's age to complete this topic Procedures Procedure NamePriorityDate/TimeAssociated DiagnosisCommentsECG 12 LEAD UNIT PITOTFPEIMeifiko79/06/2025 1:23 PM EDT Coronary artery disease involving [place] coronary artery of [place] heart without angina pectoris from Last 3 Months Results * ECG 12 lead unit performed (06/09/2025 1:23 PM EDT)Specimen (Source)Anatomical Location / LateralityCollection Method / VolumeCollection TimeReceived Time Narrative Authorizing ProviderResult TypeResult StatusGeorge Hebert HEADECG ORDERABLES Final Result from Last 3 Months Insurance Care Teams Team MemberRelationshipSpecialtyStart DateEnd Date Anayeli Heaton MD [address] [place] [address] PCP - GeneralNurse Practitioner03/31/25
--- OUTSIDE RECORDS SUMMARY | 2025-07-30 13:03 | XMS_ITS ---
Author Organization [employer] Address [facility] [id number] [address] [place] [address] Care Team Providers Care Manager Winter Name Role Phone NunurasAnayeli andrade PROJECTS MANAGER-SLAB STRIPPER Primary Care Provider Active Problems ProblemNoted DateDiagnosed DateCentrilobular xuvrgcnts31/25/2025Displaced fracture of coracoid process of left shoulder with routine zhsnzce9405/06/2025 Dyspnea on /15/2022Chronic diastolic heart zqjpffb7401/05/2022 Overview (08/11/2022): Last Assessment & Plan: Assessment: follows up with cardiology, stable and asymptomatic. daily lasix Znamadegfc80/04/2022 Overview (08/11/2022): Last Assessment & Plan: Assessment: managed with med, stable HLD (hyperlipidemia)01/05/2022 Overview (08/11/2022): Last Assessment & Plan: Assessment: managed with med, stable HTN (hypertension)01/05/2022 Overview (08/11/2022): Last Assessment & Plan: Assessment: managed with med, stable 01/05/2022 127/59 10/29/2021 119/56 Lung qqggcqg3101/05/20220711Hxsvex66/04/2022 Overview (08/11/2022): Last Assessment & Plan: Assessment: 1ppd for 40 years Cancer of trachea, bronchus, and lung10/29/2021 Overview (08/11/2022): Last Assessment & Plan: Assessment: s/p lobectomy September 2020, stable Follows up with PCP Dhoiwfyw33/03/2020Carotid artery xgyvhuml01/16/2020Aneurysm of thoracic aorta 06/18/2020 Overview (08/11/2022): Last Assessment & Plan: Assessment: follows up with cardiology, stable and unchanged per last ECHO 10/2021. Asymptomatic Aortic valve hrfjjtse27/15/2020 Overview (08/11/2022): Status post Aortic valve replacement with 25 mm Chan Magna ease pericardial valve Last Assessment & Plan: Assessment: follows up with cardiology, stable and per last ECHO 10/2021. Asymptomatic Left ventricular lsaaahih26/15/2020 Overview (08/11/2022): Resolved per Dr. Lisa-anticoagulation was discontinued Coronary nbasxkztpsqyhtxt98/14/2020 Overview (08/11/2022): Last Assessment & Plan: Assessment: follows up with cardiology, daily aspirin and plavix Systolic heart nmasarm0606/17/2020 Current Treatment and Therapy Plans No current plan information found. Past Treatment and Therapy Plans No past plan information found. Lifetime Dose Tracking * ChemicalLifetime DoseAutomatic EntryManual EntryFluoroscopy1.3 mGy1.3 mGy0 mGy Resolved Problems ProblemNoted DateDiagnosed DateResolved DateHemothorax on left04/14/2025 05/29/2025Panlobular azzqhciez82/OPD with acute exacerbation Overview (08/11/2022): Last Assessment & Plan: Assessment: managed with inhalers, stable Lung mass
--- OUTSIDE RECORDS SUMMARY | 2025-07-30 13:03 | XMS_ITS | Clinical Summary ---
Author Organization [employer] tem Address [id number] [address] [place] [address] Care Team Providers Care Forestry Aide Name Role Phone Anayeli Heaton APRN-PROPERTY ADJUSTER Primary Care Provider Allergies No known active allergies Medications MedicationSigDispense QuantityRefillsLast FilledStart DateEnd DateStatus amLODIPine (NORVASC) 10 mg tablet Take 1 tablet (10 mg total) by mouth in the morning.Active aspirin 81 mg Take 1 tablet (81 mg total) by mouth daily.Active atorvastatin (LIPITOR) 40 mg tablet Take 1 tablet (40 mg total) by mouth nightly.05/11/2022ctive busPIRone (BUSPAR) 30 mg tablet Take 1 tablet (30 mg total) by mouth in the morning and at bedtime.Active clopidogreL (PLAVIX) 75 mg tablet Take 1 tablet (75 mg total) by mouth in the evening.Active furosemide (LASIX) 40 mg tablet Take 1 tablet (40 mg total) by mouth daily.Active metoprolol succinate XL (TOPROL XL) 100 mg 24 hr tablet Take 1 tablet (100 mg total) by mouth in the evening.Active nitroglycerin (NITROSTAT) 0.4 MG SL tablet DISSOLVE 1 TABLET UNDER THE TONGUE NEEDED FOR CHEST PAIN- MAY REPEAT EVERY 5 MINUTES IF NEEDED (MAX 3 DOSES.- IF NO RELIEF CALL 911)Active potassium chloride (KLOR-CON SPRINKLE) 10 MEQ CR capsule Take 1 capsule (10 mEq total) by mouth in the morning.10/25/2021ctive sacubitriL-valsartan (ENTRESTO) 97-103 mg tablet Take 1 tablet by mouth in the morning and at bedtime.Active aeyebhekwvf-nzbktucws-tgfclmtx (TRELEGY ELLIPTA) 200-62.5-25 mcg blister with device Indications:Chronic obstructive pulmonary disease, unspecified COPD type ([facility])INHALE 1 PUFF BY MOUTH DAILY 60 each 1105Active sertraline (ZOLOFT) 100 mg tablet Take 1 tablet (100 mg total) by mouth in the morning.Active LINZESS 290 mcg capsule Take 1 capsule (290 mcg total) by mouth in the morning.5Active sildenafiL (VIAGRA) 50 mg tablet Take 1 tablet (50 mg total) by mouth as needed.5Active spironolactone (ALDACTONE) 25 mg tablet Take 1 tablet (25 mg total) by mouth in the morning./6Active albuterol (PROVENTIL,VENTOLIN) 2.5 mg /3 mL (0.083 %) nebulizer solution Inhale 3 mL (2.5 mg total) by nebulization every 6 (six) hours as needed for wheezing.Active acetaminophen (TYLENOL EXTRA STRENGTH) 500 mg tablet Take 2 tablets (1,000 mg total) by mouth every 6 (six) hours.5Active lidocaine (SALONPAS) 4 % Place 1 patch on the skin in the morning. 30 patch 5Active Active Problems ProblemNoted DateDiagnosed DateCentrilobular geuueoaxa21/25/2025Displaced fracture of coracoid process of left shoulder with routine ggodazg7305/06/2025 Dyspnea on cfvrderb14/15/2022Chronic diastolic heart vbgqdit9001/05/2022 Overview (08/11/2022): Last Assessment & Plan: Assessment: follows up with cardiology, stable and asymptomatic. daily lasix Geyvvxyptp23/04/2022 Overview (08/11/2022): Last Assessment & Plan: Assessment: managed with med, stable HLD (hyperlipidemia)01/05/2022 Overview (08/11/2022): Last Assessment & Plan: Assessment: managed with med, stable HTN (hypertension)01/05/2022 Overview (08/11/2022): Last Assessment & Plan: Assessment: managed with med, stable 01/05/2022 127/59 10/29/2021 119/56 Lung puisfgn2401/05/20223062Ikrisr40/04/2022 Overview (08/11/2022): Last Assessment & Plan: Assessment: 1ppd for 40 years Cancer of trachea, bronchus, and lung10/29/2021 Overview (08/11/2022): Last Assessment & Plan: Assessment: s/p lobectomy September 2020, stable Follows up with PCP Yuszwsbw06/03/2020Carotid artery uxpaqsjs08/16/2020Aneurysm of thoracic aorta 06/18/2020 Overview (08/11/2022): Last Assessment & Plan: Assessment: follows up with cardiology, stable and unchanged per last ECHO 10/2021. Asymptomatic Aortic valve lkhevvtu66/15/2020 Overview (08/11/2022): Status post Aortic valve replacement with 25 mm Chan Magna ease pericardial valve Last Assessment & Plan: Assessment: follows up with cardiology, stable and per last ECHO 10/2021. Asymptomatic Left ventricular pmaysldf69/15/2020 Overview (08/11/2022): Resolved per Dr. Lisa-anticoagulation was discontinued Coronary cmanefqatvfamrkg47/14/2020 Overview (08/11/2022): Last Assessment & Plan: Assessment: follows up with cardiology, daily aspirin and plavix Systolic heart oyibqwt9606/17/2020 Resolved Problems ProblemNoted DateDiagnosed DateResolved DateHemothorax on left04/14/2025 05/29/2025Panlobular lssxhmuvg33/OPD with acute exacerbation Overview (08/11/2022): Last Assessment & Plan: Assessment: managed with inhalers, stable Lung mass Encounters DateTypeDepartmentCare VljjTsikylifocq58/25/2025 8:45 AM EDTOffice Visit [facility] [address] [place] [phone] Maliha Lentz, Lung nodules (Primary Dx); Dyspnea on exertion; Smoker; Centrilobular emphysema ([facility])05/29/20252471Bpogtk72/02/2025 12:45 PM EDTOffice Visit [facility] [address] [place] [phone] Tomas Angeles MD Closed displaced fracture of coracoid process of left shoulder with routine healing, subsequent encounter (Primary Dx)05/06/2025 12:14 PM EDT - 05/06/2025 11:59 PM EDTHospital Encounter [facility] [address] [place] [phone] Closed displaced fracture of coracoid process of left shoulder with routine healing, subsequent encounter Discharge Disposition: Home05/06/20258966Xazyph36/30/2025Nurse Triage [facility] [address] [place] [phone] Shirley Gonzalez RN 05/03/2025Telephone [facility] [address] [place] [phone] Shirley Gonzalez RN Medication Jvjyrmp8305/02/2025Orders Only [facility] [address] [place] [address] Margot Prado, JERONIMO Closed displaced fracture of coracoid process of left shoulder with routine healing, subsequent encounter (Primary Dx)from Last 3 Months Immunizations No known immunizations Family History Medical HistoryRelationNameCommentsCancerFatherHeart diseaseFatherHypertension FatherDiabetesMotherHeart diseaseMotherHypertensionMotherRelationNameStatus CommentsFatherMother Social History Tobacco UseTypesPacks/DayYears UsedDateSmoking Tobacco: Every DayCigarettes0.5 40.3Started: 04/14/1985Smokeless Tobacco: Never Tobacco Cessation:Ready to Q uit: Not Asked; Counseling Given: Not Answered Alcohol UseStandard Drinks/WeekCommentsNot Currently0 (1 standard drink = 0.6 oz pure alcohol)[facility] UtilitiesAnswerDate RecordedIn the past 12 months has the [employer], oil, or water [employer] threatened to shut off services in your home?No04/14/2025UDIT-CAnswerDate RecordedQ1: How often do you have a drink containing alcohol?Never04/14/2025Q2: How many drinks containing alcohol do you have on a typical day when you are drinking?Patient does not drink04/14/2025Q3: How often do you have six or more drinks on one occasion?Never04/14/2025PHQ-2 AnswerDate RecordedTotal Hhbty699PRAPARE - TransportationAnswerDate RecordedIn the past 12 months, has lack of transportation kept you from medical appointments or from getting medications?No04/14/2025In the past 12 months, has lack of transportation kept you from meetings, work, or from getting things needed for daily living?No04/14/2025Housing InstabilityAnswerDate RecordedAre you worried or concerned that in the next two months you may not have stable housing that you own, rent or stay in as a part of a household?No04/14/2025 ChildcareAnswerDate NfwcelljZrsgmxwvmWdzgijj92/10/2020EmploymentAnswerDate MaignydrFqqsdldreqCsmhrhp00/10/2020Hunger ScreeningAnswerDate RecordedWithin the past 12 months we worried whether our food would run out before we got money to buy more.Never True04/16/2025Within the past 12 months the food we bought just didn't last and we didn't have money to get more.Never True04/16/2025Purpose - LifeAnswerDate RecordedPurpose and direction in wuthTcpjylu80/10/2021ex and Gender InformationValueDate RecordedSex Assigned at BirthNot on fileLegal Sex Male04/07/2015 7:11 PM EDTGender IdentityNot on fileSexual OrientationNot on file Last Filed Vital Signs Vital SignReadingTime TakenCommentsBlood Waknvwjr980/6209 8:45 AM EDT Evlft7029 8:45 AM YZUHtkkgqfdfiy42.1 ??C (97 ??F)05/06/2025 12:24 PM EDT Respiratory Jyjt2587 4:10 PM EDTOxygen Cqeghtwptd70%05/29/2025 8:45 AM EDTInhaled Oxygen Concentration--Hfwjoc79.5 kg (164 lb 4.8 oz)05/29/2025 8:45 AM XNOUnurcl878.6 cm (5' 5.98 )05/29/2025 8:45 AM EDTBody Mass Index26.5309 8:45 AM EDT Plan of Treatment DateTypeDepartmentCare Team (Latest Contact Info)Pcpswgasoas04/19/2026 1:30 PM EDTOffice Visit [facility] [address] [place] [address] Maliha Lentz, DO [address] [place] [address] Health MaintenanceDue DateLast DoneCommentsStatin Use: Ihcqutipwgdihp1950 Tobacco Lpogtcejdt1950dult BMI Follow Up Plan1969DTaP,Tdap and Td Vaccines (1 - Tdap)1970Zoster (Shingles) Vaccine (1 of 2)1970RSV ( or age 60+ yrs) (1 - Risk 60-74 years 1-dose series)2011 Abdominal Aortic Aneurysm (AAA) Xoamul4803/05/2016Fall Risk Vridyziru46/02/2016 Influenza Nitwssl7905/05/2025Depression Kjphzrclw08dult BMI Xezbxwebm55/25/Tobacco Qrapsuhxb08 Medical Devices Not on file Procedures Procedure NamePriorityDate/TimeAssociated DiagnosisCommentsXR SHOULDER LT MIN 2 LDDPesndgk10/02/2025 12:29 PM EDT Closed displaced fracture of coracoid process of left shoulder with routine healing, subsequent encounter from Last 3 Months Results * X-ray shoulder left minimum 2 views (05/06/2025 12:29 PM EDT)Anatomical Region LateralityModalityMSK, Upper Extremities, ShoulderLeftComputed Radiography Specimen (Source)Anatomical Location / LateralityCollection Method / Volume Collection TimeReceived Time05/07/2025 3:07 PM EDT Narrative 05/07/2025 3:09 PM EDT History: Fracture Exam/Technique: ??3 views of the left shoulder were obtained. Comparison: ??04/14/2025 Findings: ??The previous described fracture of the coracoid process of the scapula is not as well-demonstrated on the current study. The remaining visualized osseous structures are intact. No dislocation is seen. Osteoarthritic changes in the acromioclavicular joint are noted. IMPRESSION: ??The fracture of the coracoid process of the scapula described on previous examinationdated 04/14/2025 is not as well demonstrated on the current study. ?? Finalized by Krzysztof Rojas MD on 05/07/2025 3:09 PM Procedure Note Krzysztof Rojas MD - 05/07/2025 History: Fracture Exam/Technique: 3 views of the left shoulder were obtained. Comparison: 04/14/2025 Findings: The previous described fracture of the coracoid process of thescapula is not as well-demonstrated on the current study. The remainingvisualized osseous structures are intact. No dislocation is seen.Osteoarthritic changes in the acromioclavicular joint are noted. IMPRESSION: The fracture of the coracoid process of the scapula describedon previous examination dated 04/14/2025 is not as well demonstrated on thecurrent study. Finalized by Krzysztof Rojas MD on 05/07/2025 3:09 PM Authorizing ProviderResult TypeResult StatusTomas Angeles MDIMG DIAGNOSTIC IMAGING ORDERABLESFinal Result from Last 3 Months Insurance Advance Directives * Full Code (Latest Code Status on File) Date ActivatedDate InactivatedComb[facility]04/14/2025 3:43 AM04/24/2025 7:52 PM Care Teams Team MemberRelationshipSpecialtyStart DateEnd Date Anayeli Heaton, MAINTENANCE MECHANIC 2ND SHIFT-PROPERTY ADJUSTER [address] [place] [address] PCP - GeneralNurse Practitioner04/14/25
--- NOTE | 2025-07-30 13:16 | XR_ITS ---
The [address] [address] Patient Name: ALESSIO BURNS MRN: [id number] date: 1950 Sex: M Assigned Patient Location: LAB Current Patient Location: LAB Accession/Order Number: [id number] Exam Date: 07/30/2025 13:20 Report Date: 07/30/2025 15:57 At the request of: JEAN-CLAUDE HARP NP Procedure: XR abdomen 1V Single view abdomen INDICATION: Symptoms of urinary tract infection, incomplete emptying of bladder COMPARISON: 04/13/2025 FINDINGS: No radiopaque calcifications overlying the renal shadows. Left-sided pelvic phlebolith. Nonspecific bowel gas pattern. No obstruction. Degenerative changes lumbar spine with mild levocurvature thoracic lumbar junction. XR/XR abdomen 1V IMPRESSION: Nonspecific nonobstructive bowel gas pattern. Impression dictated by: Philip Raza M.D. 07/30/2025 3:57 PM Dictation Location: [place] [address] Electronically authenticated by: [id number] Y Date: 07/30/2025 15:57
[2025-07-30 13:45] LABS: Anion Gap 12.4; Blood Urea Nitrogen 23.0 mg/dL (7.0-18.0); Calcium 9.1 mg/dL (8.5-10.1); Carbon Dioxide 25.9 mmol/L (21.0-32.0); Chloride 107 mmol/L (98-107); Estimated GFR (African America >60 (>=60 mL/min/1.73m^2); Estimated GFR (Non-African Ame >60 (>=60 mL/min/1.73m^2); Glucose 96 mg/dL (74-106); Potassium 4.3 mmol/L (3.5-5.1); Sodium 141 mmol/L (136-145)
[2025-07-30 14:35] LABS: Prostate Specific Antigen Dx 1.88 ng/mL (<=4.00)
[2025-07-30 14:41] LABS: Glucose Urine UA NEGATIVE (NEGATIVE)
[2025-07-30 14:57] LABS: Cast Seen? NONE SEEN #/LPF (NONE SEEN); Crystals Seen? None Seen #/HPF (None Seen)
--- OUTSIDE RECORDS SUMMARY | 2025-07-30 15:08 | XMS_ITS | CCD ---
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 Name Role Phone Shaikh Etienne MD Primary Care Provider Jj Ayoub MD Unavailable MD Zen Etienneikh Primary Care Provider DO Krzysztof Queen Attending Provider Shaikh Etienne MD Primary Care Provider Jj Ayoub MD Unavailable Richard Lentz DO Unavailable SHAIKH Job ETIENNE Primary Care Unavailable MISC, DR CALLOWAY Attending Unavailable MISC, DR CALLOWAY Consulting Unavailable MISC, DR CALLOWAY Admitting Unavailable MOUKARBEL, DR OTOOLE Admitting Unavailable [facility] Unavailable MOUKARBEL, DR OTOOLE Attending Unavailable MOUKARBEL, DR OTOOLE Consulting Unavailable ZEN ETIENNEIKH Job Primary Care Unavailable MOUKARBEL, DR OTOOLE Attending Unavailable MOUKARBEL, DR OTOOLE Consulting Unavailable MOUKARBEL, DR OTOOLE Admitting Unavailable DavonteukaJj quinn MD Unavailable MD Girish Etienne Primary Care Provider MD Paramjit Spring Attending Provider Tavo Hull Unavailable Zen Etienne MDikh Primary Care Provider Shaik Etienne MDh Primary Care Provider Richard Lentz DO Unavailable [phone] Richard Lentz DO Unavailable Chetan HEAD, Tom Primary Care Provider Caprice CYBER SOFTWARE ENGINEER, Jasen Unavailable [phone] Chetan HEAD, Tom Primary Care Provider Lowell HEAD, Stout Primary Care Provider Lowell HEAD, Stout Primary Care Provider [phone] Caprice CYBER SOFTWARE ENGINEER, Jasen Unavailable JEAN-CLAUDE HEATON Attending Unavailable JEAN-CLAUDE HEATON Attending Unavailable SHAIKH ETIENNE Attending Unavailable JASEN VASQUES Attending Unavailabl e JASEN VASQUES Attending Unavailabl e RICHARD LENTZ Attending Unavailable RICHARD LENTZ Referring Unavailable SHAIKH ETIENNE Primary Care Unavailable Lowell HEAD, [facility] Primary Care Provider Florina BIOFUELS RESEARCH SCIENTIST-CONTACT CENTER CONSULTANT, Jean-Claude J Primary Care Provider Florina BIOFUELS RESEARCH SCIENTIST-CONTACT CENTER CONSULTANT, Jean-Claude J Primary Care Provider MAC ROBINS Consulting Unavailabl e FLORINA, JEAN-CLAUDE J Primary Care Unavailable IGOR STEEL Admitting Unavailable IGOR STEEL Attending Unavailable IGOR STEEL Consulting Unavailable MAC ROBINS Referring Unavailabl e FLORINA, JEAN-CLAUDE J Primary Care Unavailable MAC ROBINS Attending Unavailabl e JEAN-CLAUDE HEATON Referring Unavailable FLORINA, JEAN-CLAUDE J Primary Care Unavailable Zac HEAD, Linette Unavailable Lowell HEAD, [facility] Primary Care Provider Florina CYBER SOFTWARE ENGINEER-C, Jean-Claude Phan Attending Provider [phone] RICHARD LENTZ Attending Unavailable LOWELL, Referring Unavailable LOWELL, STOUT Primary Care Unavailable RICHARD LENTZ Attending Unavailable SHAIKH ETIENNE Referring Unavailable LOWELL, STOUT Primary Care Unavailable SHAIKH ETIENNE Referring Unavailable FLORINA, JEAN-CLAUDE J Primary Care Unavailable FAWWAD, STOUT Referring Unavailable FAWWAD, [facility] Primary Care Unavailable FAWWAD, [facility] Referring Unavailable FAWWAD, [facility] Primary Care Unavailable FAWWAD, [facility] Referring Unavailable FAWWAD, [facility] Primary Care Unavailable FAWWAD, [facility] Referring Unavailable FAWWAD, [facility] Primary Care Unavailable RICHARD LENTZ Attending Unavailable AICHHOLZ, JEAN-CLAUDE J Referring Unavailable AICHHOLAtul, JEAN-CLAUDE J Primary Care Unavailable JJ AYOUB Attending Unavailable JJ AYOUB Attending Unavailable ABHYANKAR, LINETTE Attending Unavailable ABHYANKAR, LINETTE Referring Unavailable FAWWAD, [facility] Primary Care Unavailable ABHYANKAR, LINETTE Referring Unavailable FAWWAD, [facility] Primary Care Unavailable FAWWAD, [facility] Primary Care Unavailable ABHYANKAR, LINETTE Attending Unavailable ABHYANKAR, LINETTE Referring Unavailable FAWWAD, [facility] Primary Care Unavailable ABHYANKAR, LINETTE Referring Unavailable FAWWAD, [facility] Primary Care Unavailable ABHYANKAR, LINETTE Attending Unavailable FAWWAD, [facility] Primary Care Unavailable GLENNA RAMIREZ Referring Unavailable FAWWAD, [facility] Primary Care Unavailable GLENNA RAMIREZ Referring Unavailable ABHYANKAR, LINETTE Referring Unavailable FAWWAD, [facility] Primary Care Unavailable GLENNA RAMIREZ Attending Unavailable ABHYANKAR, LINETTE Referring Unavailable FAWWAD, [facility] Primary Care Unavailable ABHYANKAR, LINETTE Attending Unavailable ABHYANKAR, LINETTE Referring Unavailable FAWWAD, [facility] Primary Care Unavailable ABHYANKAR, LINETTE Attending Unavailable ABHYANKAR, LINETTE Referring Unavailable FAWWAD, [facility] Primary Care Unavailable ABHYANKAR, LINETTE Referring Unavailable FAWWAD, [facility] Primary Care Unavailable Chetan HEAD, Tom Primary Care Provider Shaik Etienne MDh Primary Care Provider [phone] Tom Benton MD Primary Care Provider [phone] Unallocated , Corbys Provider Primary Care Provi alia Lowell HEAD [facility] Primary Care Provider [phone] Jean-Claude Fonseca Attending Provider Jean-Claude Fonseca Primary Care Provider [phone] Jean-Claude Heaton Attending Unavailable Jean-Claude Heaton Admitting Unavailable Medications Current Medications MedicationDrug Class(es)DatesSig (Normalized)Sig (Original)acetaminophen 500 mg oral tablet (6 sources)Start: 95-89-9624vcrz 2 tablets by mouth every six hoursacetaminophen (TYLENOL EXTRA STRENGTH) 500 mg tablet Take 2 tablets (1,000 mg total) by mouth every6 (six) hours. 04/24/2025 Activeacetaminophen 325 mg / oxyCODONE hydrochloride 5 mg oral tablet (20 sources)Opioid AgonistStart: 04-24-2025 End: 74-22-7326Iykmw: 03-29-2022 End: 49-61-4826zfpg 1 tablet by mouth every twelve hours as needed for pain oxyCODONE-acetaminophen (PERCOCET) 5-325 mg tablet TAKE 1 TABLET BY MOUTH EVERY 12 HOURS NEEDED FOR PAIN 03/29/2022 11/20/2023 DiscontinuedComment on above: TAKE 1 TABLET BY MOUTH EVERY 12 HOURS NEEDED FOR [id number] 200 actuat albuterol 0.09 mg/actuat metered dose inhaler (20 sources)beta2-Adrenergic AgonistStart: 01-24-2025 End: 18-20-8028kyas 2 puff(s) by inhalation every six hours for wheezing albuterol HFA 90 mcg/act inhaler Indications: Shortness of breath Inhale 2 puffs every 6 (six) hours if needed for wheezing 18 g 1 01/24/2025 ActiveStart: 54-00-1396wnwr 2 puff(s) by mouth every four to six hours as needed for wheezing albuterol HFA 90 mcg/act inhaler Indications: Shortness of breath inhale 2 (TWO) puffs BY MOUTH every 4-6 hour as needed for SHORTNESS OF BREATH / FOR WHEEZING 18 g 3 01/08/2024 ActiveStart: 46-72-0177srbb 2 puff(s) by inhalation every four hours for wheezingVentolin HFA 108 (90 Base) MCG/ACT inhaler Inhale 2 puffs every 4 (four) hours if needed for shortness of breath or wheezing 0 09/05/2023 ActiveStart: 04-18-2022 End: 98-39-8617bdaf 2.5 mg by inhalation every four hours as neededStart: 46-24-4682Sdkij: 06-17-1680svtv 2.5 mg by inhalation every four hoursAlbuterol Sulfate Active 2.5 MG INHALATION Q4H April 18, 2022 12:00amStart: 04-18-2022 Albuterol Sulfate Active 2 INH INHALATION Q4H April 18, 2022 12:00amStart: 61-92-5111Ujeqotrym Sulfate 1.25 mg/3 mL nebulizer solution Indications: Cancer of trachea, bronchus, and lung (HCC) , Panlobular emphysema (HCC) Use 1 Ampule via nebulizer every 6 hours as needed for wheezing/shortness of breath. 120 Ampule 2 10/29/2021 ActiveStart: 10-29-2021 End: 47-01-0052ttjy 1.25 mg by inhalation every six hours as neededStart: 67-78-3165bhjw 1.25 mg by inhalation every six hours as neededalbuterol (ACCUNEB) 1.25 mg/3 mL nebulizer solution Inhale 3 mL (1.25 mg total) every 6 (six) hoursas needed. 10/29/2021 Activetake 2.5 mg by inhalation every six hours as needed for wheezingalbuterol (PROVENTIL,VENTOLIN) 2.5 mg /3 mL (0.083 %) nebulizer solution Inhale 3 mL (2.5 mg total)by nebulization every 6 (six) hours as needed for wheezing. Activetake 2 puff(s) by mouth every four to six hours as needed for wheezingalbuterol HFA (PROVENTIL HFA, VENTOLIN HFA) 90 mcg/actuation inhaler albuterol sulfate HFA 90 mcg/actuation aerosol inhaler INHALE 2 PUFFS BY MOUTH EVERY 4 TO 6 HOURS NEEDED for shortness of breath and FOR WHEEZING Activetake 2.5 mg by inhalation every six hours as needed for wheezing End: 74-52-7327vgov 2 puff(s) by inhalation every four hours as neededalbuterol (PROVENTIL HFA;VENTOLIN HFA) 90 mcg/actuation inhaler Inhale 2 puffs every 4 (four) hoursas needed. ActiveAlbuterol Sulfate 2.5 MG/0.5ML as directed Inhalation ActiveComment on above:albuterol sulfate HFA 90 mcg/actuation aerosol inhaler INHALE 2 PUFFS BY MOUTH EVERY 4 TO 6 HOURS NEEDED for shortness of breath and FOR WHEEZINGUse 1 Ampule via nebulizer every 6 hours as needed for wheezing/shortness of breath.amLODIPine 10 mg oral tablet (20 sources)Dihydropyridine Calcium Channel BlockerStart: 04-18-2022 End: 54-89-7097gjuy 1 tablet by mouth once dailyAmlodipine 10 mg tablet Active 10 MG PO Daily June 06, 2025 6:33pm Primary hypertension Essential (primary) hypertension Complies with drug therapyStart: 40-72-1917cina 10 mg by mouth once dailyAmlodipine Active 10 MG PO Daily April 18, 2022 12:00amStart: 21-10-0564bjfu 1 tablet by mouth once dailyamLODIPine (NORVASC) 10 mg tablet Take 10 mg by mouth once daily. 08/12/2021 ActiveComment on above:Take 10 mg by mouth once daily.amoxicillin 875 mg / clavulanate 125 mg oral tablet (2 sources)Penicillin-class AntibacterialStart: 28-55-0700kcfk 1 tablet by mouth twice daily at mealtimeAspir-81 (1 source)Aspir-81 Activeaspirin 81 mg delayed release oral tablet (20 sources)Platelet Aggregation Inhibitor, Nonsteroidal Anti-inflammatory Drug Start: 46-50-5494azub 1 tablet by mouth once dailyaspirin, enteric coated (ASPIRIN, ENTERIC COATED) 81 mg EC tablet q 24 HR. ActiveComment on above:q 24 HR.atorvastatin 40 mg oral tablet (20 sources)HMG-CoA Reductase InhibitorStart: 04-18-2022 End: 36-72-2965bisd 1 tablet by mouth once dailyStart: 56-43-9727bhsa 40 mg by mouth once dailyAtorvastatin Active 40 MG PO Daily April 18, 2022 12:00amtake 1 tablet by mouth at bedtimeatorvastatin (LIPITOR) 40 mg tablet atorvastatin 40 mg tablet TAKE 1 TABLET BY MOUTH AT BEDTIME ActiveComment on above:atorvastatin 40 mg tablet TAKE 1 TABLET BY MOUTH AT BEDTIMEbismuth subsalicylate 262 mg chewable tablet (1 source)BismuthStart: 79-44-5265Dtwpmra 262 MG 2 tablets FOUR TIMES A DAY Orally Four times a day for 14 days Jun, ActivebusPIRone hydrochloride 30 mg oral tablet (20 sources)Start: 04-14-2025 End: 30-03-1517Nswrw: 09-11-2024 End: 49-48-2874gnmv 1 tablet by mouth twice dailyBuspirone 30 mg tablet Active 30 MG PO Twice daily May 24, 2025 11:00pm Complies with drug therapy Start: 41-43-0386ggva 2 tablets by mouth twice dailybusPIRone (BUSPAR) 15 mg tablet Take 30 mg by mouth two times a day. 05/28/2021 ActiveStart: 04-22-2021 End: 86-68-8527cnps 1 tablet by mouth three times dailyBuspirone 15 mg tablet Discontinued 15 MG PO Three times daily April 21, 2021 11:00pm May 062024 4:01pmtake 1 tablet by mouth every twelve hoursbusPIRone HCl 15 MG 1 tablet Orally Twice a day ActiveComment on above:Take 15 mg by mouth three times daily.clarithromycin 500 mg oral tablet (1 source)Macrolide AntimicrobialStart: 07-95-6106ckuf 1 tablet by mouth every twelve hoursClarithromycin 500 MG 1 tablet Orally twice a day for 14 days Jun, Activeclopidogrel 75 mg oral tablet (20 sources)P2Y12 Platelet InhibitorStart: 04-22-2021 End: 04-98-1310orys 1 tablet by mouth once dailyClopidogrel 75 mg tablet Active 75 MG PO Daily 90 July 07, 2025 12:58pm Coronary arteriosclerosis in [place] artery Stenosis of carotid artery Atherosclerotic heart disease of [place] coronary artery without angina pectoris Occlusion and stenosis of unspecified carotid artery Complies with drug therapyComment on above:clopidogrel 75 mg tablet TAKE 1 TABLET BY MOUTH ONCE DAILYTake 1 tablet by mouth once daily for 15 days. Jiivrgpphyf-Cnditmeay-Qiqiyu (Trelegy Ellipta) 200-62.5-25 MCG/ACT aerosol powder (20 sources)Start: 15-28-6033hshh 1 puff(s) by inhalation in the morning Knhlkgkcweb-Zccwgmczb-Kjqfjd (Trelegy Ellipta) 200-62.5-25 MCG/ACT aerosol powder Indications: Chronic obstructive pulmonary disease, unspecified (HCC) Inhale 1 puff in the morning. 3 each 08/24/2023ctiveStart: 05-96-6955szlf 1 puff(s) by inhalation in the tekwsmfSwejvsdwfdq-Gtigyoenh-Kaihat (Trelegy Ellipta) 200-62.5-25 MCG/ACT aerosol powder Indications: Chronic obstructive pulmonary disease, unspecified Inhale 1 puff in the morning. 3 each 08/24/2023 ActiveStart: 81-55-1533xmnk 1 puff(s) by inhalation in the morning Qhylzdcikkp-Tqhdpwmtk-Zyykzf (Trelegy Ellipta) 200-62.5-25 MCG/ACT aerosol powder Indications: Chronic obstructive pulmonary disease, unspecified (CMS/HCC) Inhale 1 puff in the morning. 3 each 08/24/2023 ActiveStart: 08-24-2023 End: 89-35-2311fmpi 1 puff(s) by inhalation in the morning Oedbzspcvlt-Askmscfye-Fzvdix (Trelegy Ellipta) 200-62.5-25 MCG/ACT aerosol powder Indications: Chronic obstructive pulmonary disease, unspecified (CMS/HCC) Inhale 1 puff in the morning. 3 each 0 08/24/2023 11/22/2023 Active Swuqomyuvdu-Seobltyqi-Eeopsyvo (9 sources)Start: 29-16-4151eyfe 1 puff(s) by inhalation once dailyStart: 54-86-4259zqip 1 puff(s) by inhalation once sbhbwWrxzfcsgght-Hgbforrdm-Bqdfzdpo (Trelegy Ellipta) 200-62.5-25 mcg blister with device Active 1 INH INHALATION Daily November 14, 2023 11:00pm FreeTextSi puff Inhalation Once a day; Note: Source Status: Taking; Provider: Della Vo ( ) Complies with drug therapyStart: 87-59-0340dmbr 1 puff(s) by inhalation once daily Rwesxjjbtae-Ifudhfhhk-Zgasugag (Trelegy Ellipta) 200-62.5-25 mcg blister with device Active 1 INH INHALATION Daily November 15, 2023 12:00am FreeTextSi puff Inhalation Once a day; Note: Source Status: Taking; Provider: Della Vo ( ) Complies with drug therapyStart: 35-21-6069glhf 1 puff(s) by inhalation once qbkrsEdawlfzeqeb-Qaustlxov-Xnhqdjon (Trelegy Ellipta) 200-62.5-25 mcg blister with device Active 1 INH INHALATION Daily November 14, 2023 11:00pm FreeTextSi puff Inhalation Once a day; Note: Source Status: Taking; Provider: Della Vo ( )Start: 05-30-2023 End: 13-68-0965Sbxigghsomy-Umeclidin-Vilanter (Trelegy Ellipta) 200-62.5-25 mcg blister with device Discontinued 1INH INHALATION Daily May 30, 2023 12:00am November 15, 2023 1:11pmStart: 05-30-2023 End: 28-84-4509Mudxoanvbjh-Umeclidin-Vilanter (Trelegy Ellipta) 200-62.5-25 mcg blister with device Discontinued 1INH INHALATION Daily May 29, 2023 11:00pm November 15, 2023 12:11pmStart: 55-05-9923Hukznyjwkhg-Umeclidin-Vilanter (Trelegy Ellipta) 200-62.5-25 mcg blister with device Active 1 INH INHALATION Daily May 30, 2023 12:73jcjyahntgxtzl-lprwdtgph-tzmqpqgx (TRELEGY ELLIPTA) 200-62.5-25 mcg blister with device (3 sources)Start: 08-17-2023 End: 11-13-0920cfoc 1 puff(s) by inhalation once daily nsllxthkgfs-drgygbyds-mfxtxpdd (TRELEGY ELLIPTA) 200-62.5-25 mcg blister with device Indications: Chronic obstructive pulmonary disease, unspecified COPD type (CMS-HCC) Inhale 1 puff once daily. 60 each 11 08/17/2023 09/13/2024 DiscontinuedStart: 14-86-8689egmj 1 puff(s) by inhalation once daily jcftzltounl-hzwikwfyy-wygnrzzo (TRELEGY ELLIPTA) 200-62.5-25 mcg blister with device Indications: Chronic obstructive pulmonary disease, unspecified COPD type (CMS-HCC) Inhale 1 puff once daily. 60 each 11 08/17/2023 Active lsdcpejmkng-xssrsmkmv-xiuivevp (TRELEGY ELLIPTA) 200-62.5-25 mcg blister with device (8 sources)Start: 44-37-1993mypc 1 puff(s) by mouth once daily eabgrjqgjva-spijkoian-djhpxqbq (TRELEGY ELLIPTA) 200-62.5-25 mcg blister with device Indications: Chronic obstructive pulmonary disease, unspecified COPD type (CMS-HCC) INHALE 1 PUFF BY MOUTH DAILY 60 each 11 09/13/2024 Activefolic acid 0.4 mg / vitamin b12 1 mg sublingual tablet (7 sources)Vitamin U46Cnjfu: 02-06-2025 End: 16-82-2611xvru 100-5000 ug under the tongue in the morningCobalamin Combinations (B-12) 100-[address] 1 tablet under the tongue in themorning. 02/06/2025 08/05/2025 Activefurosemide 40 mg oral tablet (20 sources)Loop DiureticStart: 04-22-2021 End: 69-69-3489yunh 1 tablet by mouth once dailyFurosemide 40 mg tablet Active 40 MG PO Daily 90 May 07, 2025 3:07pm Heart failure Heart failure, unspecified Complies with drug therapyComment on above:furosemide 40 mg tablet TAKE 1 TABLET BY MOUTH DAILYlidocaine 0.04 mg/mg medicated patch (8 sources)Antiarrhythmic, Amide Local AnestheticStart: 10-21-5977ruayj 1 dose transdermal route in the morninglidocaine (SALONPAS) 4 % Place 1 patch on the skin in the morning. 30 patch 04/25/2025 ActiveStart: 35-83-9448Jjpec: 94-06-8505Dqltb: 04-16-2025 End: 88-72-8768Vdmtq: 04-14-2025 End: hr metoprolol succinate 100 mg extended release oral tablet (20 sources)beta-Adrenergic BlockerStart: 09-53-9642jmfl 1 tablet by mouth every twenty-four hours in the morningmetoprolol succinate XL (Toprol-XL) 100 MG 24 hr tablet Take 1 tablet by mouth in the morning. 08/23/2023 ActiveStart: 04-22-2021 End: 42-86-5859ywod 1 tablet by mouth once dailytake 1 tablet by mouth every twenty-four hours in the eveningmetoprolol succinate XL (TOPROL XL) 50 mg 24 hr tablet Take 1 tablet (50 mg total) by mouth in the evening. Activetake 1 capsule by mouth once dailyMetoprolol Succinate 100 MG 1 capsule Orally Once a day Activetake 1 tablet by mouth once dailymetoprolol succinate ER (TOPROL XL) 50 mg 24 hr tablet metoprolol succinate ER 50 mg tablet,extended release 24 hr TAKE 1 TABLET BY MOUTH EVERY DAY 0 ActiveComment on above:metoprolol succinate ER 50 mg tablet,extended release 24 hr TAKE 1 TABLET BY MOUTH EVERY DAYTake 100 mg by mouth once daily.Nebulizer and Compressor For Neb (20 sources)Start: 45-60-4486Ngbvspzme and Compressor For Neb Indications: Cancer of trachea, bronchus, and lung (HCC) , Panlobular emphysema (HCC) 1 Each three times daily as needed. 1 Each 10/29/2021 ActiveStart: 10-51-7767Swetprirl and Compressor For Neb Indications: Cancer of trachea, bronchus, and lung (HCC) , Panlobular emphysema (HCC) 1 Each three times daily as needed. 1 Each 0 10/29/2021 ActiveComment on above:1 Each three times daily as needed. nitroglycerin 0.4 mg sublingual tablet (20 sources)Nitrate VasodilatorStart: 24-05-3087Erjic: 09-28-6543Ztqhrueqlsdcr Active 0.4 MG SUBLINGUAL EVERY 5 MINUTES April 18, 2022 12:00amnitroglycerin (NITROSTAT) 0.4 MG SL tablet DISSOLVE 1 TABLET UNDER THE TONGUE NEEDED FOR CHEST PAIN- MAY REPEAT EVERY 5 MINUTES IF NEEDED ( MAX 3 DOSES.- IF NO RELIEF CALL 911) ActiveComment on above:nitroglycerin 0.4 mg sublingual tablet DISSOLVE 1 TABLET UNDER THE TONGUE NEEDED FOR CHEST PAIN- MAY REPEAT EVERY 5 MINUTES IF NEEDED (MAX 3 DOSES.- IF NO RELIEF CALL 911)oxyCODONE hydrochloride 10 mg oral tablet (6 sources)Opioid AgonistStart: 05-12-2025 End: 66-83-0892hkpq 1 tablet by mouth three times daily as needed for pain oxyCODONE IR (ROXICODONE) 10 mg tab Indications: Acute neoplasm-related pain Take 1 tablet by mouththree times a day as needed for pain for up to 14 days. 42 tablet 05/12/2025 05/26/2025 ActiveStart: 05-06-2025 End: 08-96-7033gigl 1 tablet by mouth every eight hours as neededoxyCODONE IR (ROXICODONE) 5 mg immediate release tablet Take 5 mg by mouth three times a day as needed. 05/06/2025 05/11/2025 Discontinued (Course of therapy completed) Start: 05-06-2025 End: 91-42-3143hfwg 1 tablet by mouth every eight hours as needed for pain oxyCODONE (ROXICODONE) 5 mg immediate release tablet Indications: Closed displaced fracture of coracoid process of left shoulder with routine healing, subsequent encounter Take 1 tablet (5 mg total) by mouth every 8 (eight) hours as needed for pain for up to 7 days. Max Daily Amount: 15 mg 20 tablet 05/06/2025 05/13/2025 Activepolyethylene glycol 3350 60146 mg powder for oral solution (9 sources)Osmotic LaxativeStart: 04-22-2024 End: 53-42-1142Slcksbqmipfq Glycol 3350 (Miralax) 17 gram/dose powder Active 17 GM PO .prn October 16, 2024 1:43pm Complies with drug therapy microencapsulated potassium chloride 10 meq extended release oral tablet (20 sources)Start: 04-18-2022 End: 34-75-7791qmjf 1 tablet by mouth once dailyStart: 51-32-6619jqaa 10 mEq by mouth once dailyPotassium Chloride Active 10 MEQ PO Daily April 18, 2022 12:00amStart: 80-31-6752qmdo 1 capsule by mouth in the morningpotassium chloride (KLOR-CON SPRINKLE) 10 MEQ CR capsule Take 1 capsule (10 mEq total) by mouth in the morning. 10/25/2021 ActiveStart: 98-77-0765yezlfrkut chloride ER (K-DUR, KLOR-CON) 20 mEq tablet Take 10 mEq by mouth once daily. 10/25/2021 ActiveStart: 22-49-5731Dqpqc: 12-97-4896rwbr 1 tablet by mouth in the morningpotassium chloride (KLOR-CON M 20) 20 MEQ CR tablet Take 1 tablet (20 mEq total) by mouth in the morning. 10/25/2021 ActivePotassium Chloride ActiveComment on above:Take 20 mEq by mouth once daily.Take 10 mEq by mouth once daily.sacubitril 97 mg / valsartan 103 mg oral tablet (20 sources)Angiotensin 2 Receptor BlockerStart: 11-15-2023 End: 08-57-9962igsc 1 tablet by mouth twice dailySacubitril-Valsartan (Entresto) 97-103 mg tablet Active 1 TAB PO Twice daily May 24, 2025 11:00pm Complies with drug therapyStart: 08-23-2023 End: 27-50-3364cjmc 1 tablet by mouth in the morningEntresto 97-103 MG tablet Take 1 tablet by mouth in the morning and 1 tablet before bedtime. 08/23/2023 ActiveStart: 04-22-2021 End: 15-28-0042jmsx 1 tablet by mouth once dailySacubitril-Valsartan (Entresto) 97-103 mg tablet Discontinued 1 TAB PO Daily April 21, 2021 11:00pm May 25, 2025 4:03pmComment on above:Entresto 97 mg-103 mg tablet TAKE 1 TABLET BY MOUTH TWICE DAILYsertraline 100 mg oral tablet (20 sources)Serotonin Reuptake InhibitorStart: 05-25-2025 End: 70-59-5849tdlk 1 tablet by mouth once dailySertraline 100 mg tablet Active 100 MG PO Daily June 05, 2025 12:21pm Recurrent major depressive disorder Major depressive disorder, recurrent, unspecified Complies with drug therapyStart: 02-12-2025 End: 04-07-2670Iuspu: 01-03-2025 End: 27-18-5362fbmb 1 tablet by mouth once dailysertraline (Zoloft) 50 MG tablet Indications: Mild episode of recurrent major depressive disorder (HCC) (CMS/HCC) Take 1 tablet (50 mg) by mouth Daily 30 tablet 1 02/10/2025 02/12/2025 Discontinued (Reorder)sildenafil 50 mg oral tablet (20 sources)Phosphodiesterase 5 InhibitorStart: 69-05-9080Dmcxe: 11-20-2023 End: 45-48-8734Dwymybleyn (Viagra) 50 mg tablet Active 50 MG PO Daily as needed May 25, 2025 12:00am administer 30 minutes to 4 hours before activity Complies with drug therapyStart: 21-31-9421rkknpiflts (Viagra) 50 MG tablet Indications: Male erectile dysfunction, unspecified TAKE 1 TABLET BY MOUTH 1 HOUR BEFORE SEXUAL ACTIVITY NEEDED. 30 tablet 0 09/28/2023 ActiveStart: 04-18-2022 End: 65-23-4050ewzm 1 tablet by mouth once dailySildenafil 25 mg tablet Discontinued 25 MG PO Daily April 17, 2022 11:00pm May 25, 2025 4 :05pmStart: 74-24-7952ygpb 25 mg by mouth once dailySildenafil Active 25 MG PO Daily April 18, 2022 12:00am End: 02-12-1806zttyxpyejz (VIAGRA) 25 mg tablet sildenafil 25 mg tablet TAKE 1 TABLET BY MOUTH 30 MINUTES BEFORE sexual activity ActiveComment on above: sildenafil 25 mg tablet TAKE 1 TABLET BY MOUTH 30 MINUTES BEFORE sexual activityspironolactone 25 mg oral tablet (20 sources)Aldosterone AntagonistStart: 10-78-0700gtio 0.5 tablet by mouth in the morningspironolactone (Aldactone) 25 MG tablet Take 0.5 tablets (12.5 mg) by mouth in the morning. 09/11/2024 ActiveStart: 04-18-2022 End: 27-11-4920tedz 1 tablet by mouth once dailyStart: 12-13-2739yzmq 25 mg by mouth once dailySpironolactone Active 25 MG PO Daily April 18, 2022 12:00am Spironolactone 25 MG 1 tablet Orally Activetetracycline hydrochloride 500 mg oral capsule (1 source)Tetracycline-class AntimicrobialStart: 28-99-5666Kfcpjyhsnzqx HCl 500 MG 1 CAPSULE FOUR TIMES A DAY Orally 4 TIMES A DAY for 14 days Jun, Act ivetraZODone hydrochloride 50 mg oral tablet (20 sources)Serotonin Reuptake InhibitorStart: 04-17-2025 End: 15-06-0446pujy 1 tablet by mouth once daily at bedtime as neededTrazodone 50 mg tablet Active 50 MG PO Daily at bedtime as needed May 24, 2025 11:00pm Complies with drug therapyStart: 03-14-2022 End: 74-62-1029fejf 1 tablet by mouth once dailytraZODone (DESYREL) 100 mg tablet Take 100 mg by mouth once daily. 03/14/2022 03/03/2023 DiscontinuedStart: 04-22-2021 End: 09-35-3694Ttzkxucav 150 mg tablet Discontinued 100 MG PO Daily April 21, 2021 11:00pm November 15, 2023 12:13pmStart: 88-34-8884rxkx 100 mg by mouth once dailyTrazodone Active 100 MG PO Daily April 22, 2021 12:00amStart: 01-18-2021 End: 96-42-2628xxgd 1 tablet by mouth once dailytraZODone (DESYREL) 50 mg tablet Take 50 mg by mouth once daily. 01/18/2021 03/31/2022 Discontinued(Changing Therapy/Dosage Form)Comment on above:Take 50 mg by mouth once daily.Take 100 mg by mouth once daily.Take 1 tablet by mouth once daily for 15 days.TRELEGY ELLIPTA 200-62.5-25 mcg inhalation powder (20 sources)Start: 14-47-7570ycav 1 puff(s) by mouth once dailyTRELEGY ELLIPTA 200-62.5-25 mcg inhalation powder INHALE 1 PUFF BY MOUTH DAILY 09/09/2022 Active Start: 93-08-5642nkjc 1 puff(s) by mouth once dailyTRELEGY ELLIPTA 200-62.5-25 mcg inhalation powder INHALE 1 PUFF BY MOUTH DAILY 0 09/09/2022 ActiveComment on above:INHALE 1 PUFF BY MOUTH DAILYtrelegy ellipta 200-62.5-25 mcg/act aerosol powder breath activated (1 source)take 1 puff(s) by inhalation once dailyTrelegy Ellipta 200-62.5-25 MCG/ACT 1 puff Inhalation Once a day Activevitamin b12 5 mg sublingual tablet (7 sources)Vitamin D95Dnccm: 02-06-2025 End: 28-65-7245Vhiqoezcniapvl-Cobamamide (B-12 PLUS) 5,000-100 mcg subl Indications: Malignant neoplasm of upper lobe of right lung (HCC) , Non- caseating granuloma , Lung nodules , Tobacco use disorder , Megaloblastic anemia due to vitamin B12 deficiency Dissolve 1 tablet under the tongue once daily. 90 tablet 1 02/06/2025 08/05/2025 Active (2 sources)Start: 09-13-2024 Completed/Discontinued Medications MedicationDrug Class(es)DatesSig (Normalized)Sig (Original)albuterol 0.833 mg/ml / ipratropium bromide 0.167 mg/ml inhalation solution (2 sources)Anticholinergic, beta2-Adrenergic AgonistStart: 04-15-2025 End: 07-66-5073Icmei: 04-14-2025 End: 44-23-0837zywfpzawbtltt hydrochloride 25 mg oral tablet (20 sources)Tricyclic AntidepressantStart: 04-17-2024 End: 44-71-2656ndpj 1 tablet by mouth at bedtimeamitriptyline (Elavil) 25 MG tablet Indications: Insomnia, unspecified TAKE 1 TABLET BY MOUTH AT BEDTIME 90 tablet 04/17/2024 06/03/2024 Discontinued (Discontinued by another clinician) Start: 62-90-1935ogyu 1 tablet by mouth once daily at bedtimeamitriptyline (ELAVIL) 50 mg tablet Take 50 mg by mouth daily at bedtime. 02/01/2024 Active Start: 91-27-1181gckx 1 tablet by mouth once daily at bedtimeamitriptyline (Elavil) 50 MG tablet Indications: Insomnia, unspecified TAKE 1 TABLET BY MOUTH EVERYDAY AT BEDTIME 30 tablet 0 09/21/2023 ActiveStart: 05-30-2023 End: 14-98-6894ulek 1 tablet by mouth once dailyAmitriptyline 25 mg tablet Discontinued 25 MG PO Daily May 29, 2023 11:00pm November 15, 2023 12:10pmComment on above:Take 25 mg by mouth daily at bedtime.120 actuat budesonide 0.16 mg/actuat / formoterol fumarate 0.0045 mg/actuat metered dose inhaler (20 sources)Corticosteroid, beta2-Adrenergic AgonistStart: 04-22-2021 End: 79-60-7745auhp 1 puff(s) by inhalation twice dailyBudesonide-Formoterol (Symbicort) 160-4.5 mcg/actuation HFA aerosol inhaler Discontinued 2 PUFF INHA LATION Twice daily April 21, 2021 11:00pm May 30, 2023 11:44am End: 21-75-7143ejgz 2 puff(s) by mouth twice dailybudesonide-formoterol (SYMBICORT) 160-4.5 mcg/actuation inhaler Symbicort 160 mcg-4.5 mcg/actuationHFA aerosol inhaler INHALE 2 PUFFS BY MOUTH TWICE DAILY 11/20/2023 Discontinued End: 17-15-0685ufiu 2 puff(s) by mouth twice dailybudesonide-formoterol (SYMBICORT) 160-4.5 mcg/actuation inhaler Symbicort 160 mcg-4.5 mcg/actuationHFA aerosol inhaler INHALE 2 PUFFS BY MOUTH TWICE DAILY 0 11/20/2023 Discontinued take 2 puff(s) by mouth twice dailybudesonide-formoterol (SYMBICORT) 160-4.5 mcg/actuation inhaler Symbicort 160 mcg-4.5 mcg/actuationHFA aerosol inhaler INHALE 2 PUFFS BY MOUTH TWICE DAILY 0 ActiveComment on above:Symbicort 160 mcg- 4.5 mcg/actuation HFA aerosol inhaler INHALE 2 PUFFS BY MOUTH TWICE DAILYcalcium chloride 0.0014 meq/ml / potassium chloride 0.004 meq/ml / sodium chloride 0.103 meq/ml / sodium lactate 0.028 meq/ml injectable solution (1 source)Start: 04-14-2025 End: 53-98-0659285 ml dexmedetomidine 0.004 mg/ml injection (1 source)Central alpha-2 Adrenergic AgonistStart: 04-19-2025 End: 06-63-2441jqyulpsi sodium 50 mg / sennosides, shelter 8.6 mg oral tablet (1 source)Start: 04-14-2025 End: .3 ml enoxaparin sodium 100 mg/ml prefilled syringe (1 source)Low Molecular Weight HeparinStart: 04-15-2025 End: 73-11-9132kepeajl contrast (will be provided with radiology test) (20 sources)Start: 11-07-2024 End: 45-05-6124uwbywvw contrast (will be provided with radiology test) Indications: Malignant neoplasm of upper lobe of right lung (HCC) , Non- caseating granuloma , Abnormal finding on GI tract imaging , Anemia, unspecified type For CT CHESTABD/PEL W IVCON Routine order Administer, As Directed One Time Only, via Oral, Rectal, both Oral and Rectal, Enteric Tube, Stoma or Indwelling Catheter, Enteric Contrast as designated per enteric contrast guidelines 1 Each 11/07/2024 05/08/2025 Discontinued (Other)Start: 13-60-0369bkfzqel contrast (will be provided with radiology test) Indications: Malignant neoplasm of upper lobe of right lung (HCC) , Non-caseating granuloma , Abnormal finding on GI tract imaging , Anemia, unspecified type For CT CHESTABD/PEL W IVCON Routine order Administer, As Directed One Time Only, via Oral, Rectal, both Oral and Rectal, Enteric Tube, Stoma or Indwelling Catheter, Enteric Contrast as d esignated per enteric contrast guidelines 1 Each 11/07/2024 ActiveStart: 09-12-2024 End: 14-71-9164eohnqyn contrast (will be provided with radiology test) Indications: Malignant neoplasm of upper lobe of right lung (HCC) For CT CHESTABD/PEL W IVCON Routine order Administer, As Directed One Time Only, via Oral, Rectal, both Oral and Rectal, Enteric Tube, Stoma or Indwelling Catheter, Enteric Contrast as designated per enteric contrast guidelines 1 Each 09/12/2024 05/08/2025 Discontinued (Other)Start: 19-08-5818ejcvyoi contrast (will be provided with radiology test) Indications: Malignant neoplasm of upper lobe of right lung (HCC) For CT CHESTABD/PEL W IVCON Routine order Administer, As Directed One Time Only, via Oral, Rectal, both Oral and Rectal, Enteric Tube, Stoma or Indwelling Catheter, Enteric Contrast as designated per enteric contrast guidelines 1 Each 09/12/2024 ActiveStart: 04-18-2024 End: 55-37-8504rzohysk contrast (will be provided with radiology test) Indications: Malignant neoplasm of unspecified part of unspecified bronchus or lung (HCC) , Abnormal finding on GI tract imaging For CT CHESTABD/PEL W IVCON Routine order Administer, As Directed One Time Only, via Oral, Rectal, both Oral and Rectal, Enteric Tube, Stoma or Indwelling Catheter, Enteric Contrast as designated per enteric contrast guidelines 1 Each 04/18/2024 05/08/2025 Discontinued (Other)Start: 52-17-3129ehyubbn contrast (will be provided with radiology test) Indications: Malignant neoplasm of unspecified part of unspecified bronchus or lung (HCC) , Abnormal finding on GI tract imaging For CT CHESTABD/PEL W IVCON Routine order Administer, As Directed One Time Only, via Oral, Rectal, both Oral and Rectal, Enteric Tube, Stoma or Indwelling Catheter, Enteric Contrast as designated per enteric contrast guidelines 1 Each 04/18/2024 ActiveStart: 70-23-7465trmdcre contrast (will be provided with radiology test) [...] enteric contrast guidelines 1 Each 0 04/18/2024 ActiveStart: 11-17-2023 End: 96-88-7513epuopoz contrast (will be provided with radiology test) Indications: Malignant neoplasm of upper lobe of right lung (HCC) For CT CHESTABD/PEL W IVCON Routine order Administer, As Directed One Time Only, via Oral, Rectal, both Oral and Rectal, Enteric Tube, Stoma or Indwelling Catheter, Enteric Contrast as designated per enteric contrast guidelines 1 Each 11/17/2023 05/08/2025 Discontinued (Other)Start: 10-94-2153dboqqwc contrast (will be provided with radiology test) Indications: Malignant neoplasm of upper lobe of right lung (HCC) For CT CHESTABD/PEL W IVCON Routine order Administer, As Directed One Time Only, via Oral, Rectal, both Oral and Rectal, Enteric Tube, Stoma or Indwelling Catheter, Enteric Contrast as designated per enteric contrast guidelines 1 Each 11/17/2023 ActiveStart: 59-08-2075iwkivbv contrast (will be provided with radiology test) Indications: Malignant neoplasm of upper lobe of right lung (HCC) For CT CHESTABD/PEL W IVCON Routine order Administer, As Directed One Time Only, via Oral, Rectal, both Oral and Rectal, Enteric Tube, Stoma or Indwelling Catheter, Enteric Contrast as designated per enteric contrast guidelines 1 Each 0 11/17/2023 ActiveStart: 09-19-2022 End: 97-96-0786krkexxi contrast (will be provided with radiology test) Indications: Malignant neoplasm of unspecified part of unspecified bronchus or lung (HCC) For CT CHESTABD/PEL W IVCON Routine order Administer,As Directed One Time Only, via Oral, Rectal, both Oral and Rectal, Enteric Tube, Stoma or Indwelling Catheter, Enteric Contrast as designated per enteric contrast guidelines 1 Each 0 09/19/2022 09/20/2022 ActiveComment on above:For CT CHESTABD/PEL W IVCON Routine order Administer, As Directed One Time Only, via Oral, Rectal, both Oral and Rectal, Enteric Tube, Stoma or Indwelling Catheter, Enteric Contrast as designated perenteric contrast guidelines1 ml fentaNYL 0.05 mg/ml injection (1 source)Opioid AgonistStart: 04-14-2025 End: 53-10-5986nwqbiracze 300 mg oral capsule (2 sources)Anti-epileptic AgentStart: 04-15-2025 End: 84-15-1913Owpnv: 04-14-2025 End: 35-81-2206tqnkkhrx (rdna) 1 mg injection (1 source)Antihypoglycemic AgentStart: 04-14-2025 End: 86-60-182683 ml glucose 500 mg/ml prefilled syringe (2 sources)Start: 04-14-2025 End: 08-28-2353Jbsgz: 04-14-2025 End: 04-58-9523Qvfzdiytxnl (3 sources)Typical AntipsychoticStart: 04-22-2025 End: 06-23-8105Puwvr: 04-19-2025 End: 00-85-0493Roqcr: 04-19-2025 End: ml hyaluronidase, human recombinant 150 unt/ml injection (1 source)EndoglycosidaseStart: 04-19-2025 End: .5 ml HYDROmorphone hydrochloride 1 mg/ml prefilled syringe (1 source)Opioid AgonistStart: 04-14-2025 End: 72-13-8863dqyj 0.5 mg intravenously every two hours as needediv contrast (will be provided with radiology test) (20 sources)Start: 05-08-2025 End: 49-74-7810pr contrast (will be provided with radiology test) CT Chest W - Inject, intravenously, once for 1 dose.No IV access, insert saline lock prior to the beginning of sedation, infusion, injection of imaging exam. Discontinue saline lock post exam. If Pt. has a central line or IVAD, may access for adminis tration according to line specific nursing protocol. Once exam is complete flush line and de-accessaccording to line specific nursing protocol in theCT contrast administration guidelines link. 1 each 05/08/2025 05/09/2025 ExpiredStart: 05-08-2025 End: 09-33-7652ue contrast (will be provided with radiology test) CT Chest W - Inject, intravenously, once for 1 dose.No IV access, insert saline lock prior to the beginning of sedation, infusion, injection of imaging exam. Discontinue saline lock post exam. If Pt. has a central line or IVAD, may access for adminis tration according to line specific nursing protocol. Once exam is complete flush line and de-accessaccording to line specific nursing protocol in theCT contrast administration guidelines link. 1 each 05/08/2025 05/09/2025 ActiveStart: 02-06-2025 End: 75-55-7188is contrast (will be provided with radiology test) Indications: Malignant neoplasm of upper lobe ofright lung (HCC) CT Chest W -Inject, intravenously, [...] administration guidelines link. 1 each 02/06/2025 02/07/2025 ActiveStart: 11-07-2024 End: 65-90-8196jc contrast (will be provided with radiology test) Indications: Malignant neoplasm of upper lobe ofright lung (HCC) , Non-caseating granuloma , Abnormal finding on GI tract imaging , Anemia, unspecified type CT Chest ABD/PEL-Inject, intravenously, once for 1 dose.No IV access, insert saline lock prior to the beginning of sedation, infusion, injection of imaging exam. Discontinue saline lock postexam. If Pt. has a central line or IVAD, may access for administration according to line specific nursing protocol. Once exam is complete flush line and de-access according to line specific nursing protocol in the CT contrast administration guidelines link. 1 Each 11/07/2024 05/08/2025 Discontinued(Other)Start: 99-34-6273yh contrast (will be provided with radiology test) Indications: Malignant neoplasm of upper lobe ofright lung (HCC) , Non- caseating granuloma , Abnormal finding on GI tract imaging , Anemia, unspecified type CT Chest ABD/PEL-Inject, intravenously, once for 1 dose.No IV access, insert saline lock prior to the beginning of sedation, infusion, injection of imaging exam. Discontinue saline lock postexam. If Pt. has a central line or IVAD, may access for administration according to line specific nursing protocol. Once exam is complete flush line and de-access according to line specific nursing protocol in the CT contrast administration guidelines link. 1 Each 11/07/2024 ActiveStart: 09-12-2024 End: 41-54-9090ob contrast (will be provided with radiology test) Indications: Malignant neoplasm of upper lobe ofright lung (HCC) CT Chest ABD/PEL-Inject, intravenously, once [...] contrast administration guidelines link. 1 Each 09/12/2024 05/08/2025 Discontinued (Other)Start: 14-38-0486jh contrast (will be provided with radiology test) Indications: Malignant neoplasm of upper lobe ofright lung (HCC) CT Chest ABD/PEL-Inject, intravenously, once [...] contrast administration guidelines link. 1 Each 09/12/2024 ActiveStart: 07-24-2024 End: 30-44-3428va contrast (will be provided with radiology test) Indications: Malignant neoplasm of unspecified part of unspecified bronchus or lung (HCC) , Abnormal finding on GI tract imaging , Lung nodules , Non-caseating granuloma CT Chest W -Inject, intravenously, once for 1 dose.No IV access, insert sal[place]ock prior to the beginning of sedation, infusion, injection of imaging exam. Discontinue saline lock post exam. If Pt. has a central line or IVAD, may access for administration according to line specific nursing protocol. Once exam is complete flush line and de-access according to line specific nursing protocol in the CT contrast administration guidelines link. 1 Each 07/24/2024 07/25/2024 ActiveStart: 04-18-2024 End: 78-22-6055sz contrast (will be provided with radiology test) Indications: Malignant neoplasm of unspecified part of unspecified bronchus or lung (HCC) , Abnormal finding on GI tract imaging CT Chest ABD/PEL-Inject, intravenously, once for 1 dose.No IV access, insert saline lock prior to the beginning of sedat ion, infusion, injection of imaging exam. Discontinue saline lock post exam. If Pt. has a central line or IVAD, may access for administration according to line specific nursing protocol. Once exam iscomplete flush line and de-access according to line specific nursing protocol in the CT contrast administration guidelines link. 1 Each 04/18/2024 09/12/2024 Discontinued (Discontinued by Patient)Start: 25-93-1457mg contrast (will be provided with radiology test) [...] to line specific nursing protocol. Once exam iscomplete flush line and de-access according to line specific nursing protocol in the CT contrast adm inistration guidelines link. 1 Each 04/18/2024 ActiveStart: 84-88-8330kx contrast (will be provided with radiology test) [...] to line specific nursing protocol. Once exam iscomplete flush line and de-access according to line specific nursing protocol in the CT contrast administration guidelines link. 1 Each 0 04/18/2024 ActiveStart: 03-01-2024 End: 22-40-6767eb contrast (will be provided with radiology test) CT Chest W - Inject, intravenously, once for 1 dose.No IV access, insert saline lock prior to the beginning of sedation, infusion, injection of imaging exam. Discontinue saline lock post exam. If Pt. has a central line or IVAD, may access for adminis tration according to line specific nursing protocol. Once exam is complete flush line and de-accessaccording to line specific nursing protocol in the CT contrast administration guidelines link. 1 Each 0 03/01/2024 03/02/2024 ActiveStart: 11-17-2023 End: 40-91-4976qi contrast (will be provided with radiology test) Indications: Malignant neoplasm of upper lobe ofright lung (HCC) CT Chest ABD/PEL-Inject, intravenously, once [...] 1 Each 11/17/2023 09/12/2024 Discontinued (Discontinued by Patient)Start: 26-91-8862vs contrast (will be provided with radiology test) Indications: Malignant neoplasm of upper lobe ofright lung (HCC) CT Chest ABD/PEL-Inject, intravenously, once [...] guidelines link. 1 Each 11/17/2023 Active Start: 81-72-2659np contrast (will be provided with radiology test) Indications: Malignant neoplasm of upper lobe ofright lung (HCC) CT Chest ABD/PEL-Inject, intravenously, once [...] administration guidelines link. 1 Each 0 11/17/2023 ActiveStart: 08-11-2023 End: 73-99-9804oq contrast (will be provided with radiology test) CT Chest W - Inject, intravenously, once for 1 dose.No IV access, insert saline lock prior to the beginning of sedation, infusion, injection of imaging exam. Discontinue saline lock post exam. If Pt. has a central line or IVAD, may access for adminis tration according to line specific nursing protocol. Once exam is complete flush line and de-accessaccording to line specific nursing protocol in the CT contrast administration guidelines link. 1 Each 0 08/11/2023 08/12/2023 ActiveStart: 09-19-2022 End: 76-82-6352cg contrast (will be provided with radiology test) Indications: Malignant neoplasm of unspecified part of unspecified bronchus or lung (HCC) CT Chest ABD/PEL-Inject, intravenously, once for 1 dose.NoIV access, insert saline lock prior to the [...] guidelines link. 1 Each 0 09/19/2022 09/20/2022 ActiveStart: 07-21-2022 End: 52-81-0202vm contrast (will be provided with radiology test) Indications: Cancer of trachea, bronchus, and lung (HCC) CT Chest W -Inject, intravenously, once for 1 dose.No IV access, insert saline lock prior to the beginning of sedation, infusion, injection of imaging exam. Discontinue saline lock post exam.If Pt. has a central line or IVAD, may access for administration according to line specific nursingprotocol. Once exam is complete flush line and de-access according to line specific nursing protocol in the CT contrast administration guidelines link. 1 Each 0 07/21/2022 07/22/2022 ExpiredStart: 04-03-2022 End: 78-66-1788dp contrast (will be provided with radiology test) Indications: Malignant neoplasm of unspecified part of unspecified bronchus or lung (HCC) CT Chest W -Inject, intravenously, once for 1 dose.No IV access, insert saline lock prior to the beginning of sedation, infusion, injection of imaging exam. Di scontinue saline lock post exam. If Pt. has a central line or IVAD, may access for administration according to line specific nursing protocol. Once exam is complete flush line and de-access accordingto line specific nursing protocol in the CT contrast administration guidelines link. 1 Each 0 04/03/2022 04/04/2022 ActiveStart: 03-02-2022 End: 10-20-7242ab contrast (will be provided with radiology test) Indications: Malignant neoplasm of unspecified part of unspecified bronchus or lung (HCC) , Cancer of trachea, bronchus, and lung (HCC) , Panlobularemphysema (HCC) CT Chest W -Inject, intravenously, once for 1 dose.No IV access, insert saline lockprior to the beginning of sedation, infusion, injection of imaging exam. Discontinue saline lock post exam. If Pt. has a central line or IVAD, may access for administration according to line specificnursing protocol. Once exam is complete flush line and de-access according to line specific nursingprotocol in the CT contrast administration guidelines link. 1 Each 0 03/02/2022 03/03/2022 Active Comment on above:CT Chest W -Inject, intravenously, once for 1 [...] protocol in theCT contrast administration guidelines link. CT Chest ABD/PEL-Inject, intravenously, once for 1 dose.No IV access, insert saline lock prior to the beginning of sedation, infusion, injection of imaging exam. Discontinue saline lock post exam. IfPt. has a central line or IVAD, may access for administration according to line specific nursing protocol. Once exam is complete flush line and de-access according to line specific nursing protocol in the CT contrast administration guidelines link.levoFLOXacin 750 mg oral tablet (20 sources)Quinolone AntimicrobialStart: 10-25-2021 End: 76-81-2989hvqv 1 tablet by mouth once dailylevoFLOXacin (LEVAQUIN) 750 mg tablet Take 750 mg by mouth once daily. 10/25/2021 11/20/2023 Discontinued Comment on above:Take 750 mg by mouth once daily.linaclotide 0.29 mg oral capsule (20 sources)Guanylate Cyclase-C AgonistStart: 05-17-2024 End: 39-21-3744boqw 1 capsule by mouth before mealtimelinaCLOtide (Linzess) 145 MCG capsule Indications: Chronic idiopathic constipation Take 1 capsule (145 mcg) by mouth in the morning. Take before meals. Do not crush or chew.. 30 capsule 2 05/17/2024 12/26/2024 Discontinued (Ineffective)Start: 10-27-2023 End: 73-20-1311tvbr 1 capsule by mouth once dailyLinaclotide (Linzess) 290 mcg capsule Discontinued 290 MCG PO Daily 2 July 22, 2024 2:10pm October 16, 2024 1:48pmStart: 10-02-2023 End: 55-39-5772ubhv 1 capsule by mouth once dailyLinaclotide (Linzess) 145 mcg capsule Discontinued 145 MCG PO Daily November 14, 2023 11:00pm 2023 12:53pmComment on above:TAKE 1 CAPSULE BY MOUTH IN THE MORNING BEFORE MEALS DO NOT CRUSH OR CHEW1 ml LORazepam 2 mg/ml injection (1 source)BenzodiazepineStart: 04-22-2025 End: 34-18-6157Wgavk: 04-22-2025 End: 47-82-8566svrhttdxr citrate 58.2 mg/ml oral solution (2 sources)Start: 08-11-2023 End: 29-33-8922rmwe 296 mL by mouth oncemagnesium citrate solution Take 296 mL by mouth one time only for 1 dose. 296 mL 0 08/11/2023 08/11/2023 ExpiredComment on above:Take 296 mL by mouth one time only for 1 dose.methocarbamol 500 mg oral tablet (2 sources)Muscle RelaxantStart: 04-15-2025 End: 98-75-1744Rrdai: 04-14-2025 End: 82-37-7050msvarcHKJWZOWvucvw 40 mg injection (1 source)CorticosteroidStart: 04-15-2025 End: 94-02-7918bnronWYUQDUAJ 250 mg oral tablet (7 sources)Nitroimidazole AntimicrobialStart: 06-05-2023 End: 02-78-4632amos 1 tablet by mouth four times dailymetroNIDAZOLE (FLAGYL) 250 mg tablet Take 250 mg by mouth four times daily. 06/16/2023 11/20/2023 Di scontinuedComment on above:Take 250 mg by mouth four times daily.2 ml midazolam 1 mg/ml prefilled syringe (2 sources)BenzodiazepineStart: 04-19-2025 End: 56-26-0795Ldtbk: 04-19-2025 End: ml morphine sulfate 10 mg/ml injection (2 sources)Opioid AgonistStart: 05-08-2025 End: 28-51-4137lwrwzzdg 5 mg injectionStart: 05-08-2025 End: mg, INTRAVENOUS, ONCE, 1 dose, On [facility] 05/08/25 at 1530omeprazole 40 mg delayed release oral capsule (20 sources)Proton Pump InhibitorStart: 07-25-2023 End: 90-05-3852bdopxwhvwm (PriLOSEC) 40 mg capsule Take 1 capsule (40 mg total) by mouth. 07/25/2023 10/10/2024 Discontinued (Therapy completed)Start: 05-30-2023 End: 67-20-5872vmrz 1 capsule by mouth once dailyOmeprazole 40 mg capsule,delayed release(DR/EC) Discontinued 40 MG PO Daily 03 03May 29, 2023 11:00pm November 15, 2023 12:13pmComment on above:TAKE 1 CAPSULE BY MOUTH TWICE DAILY (30 MINUTES BEFORE morning meal & IN THE EVENING)2 ml ondansetron 2 mg/ml injection (1 source)Serotonin-3 Receptor AntagonistStart: 04-14-2025 End: 36-12-1924bswy 4 mg intravenously every six hours as needed for nausea penicillin v potassium 500 mg oral tablet (20 sources)Start: 03-29-2022 End: 89-00-1704ryyg 1 tablet by mouth four times dailypenicillin V potassium (V- CILLIN, VEETIDS) 500 mg tablet Take 500 mg by mouth four times daily. 03/29/2022 11/20/2023 DiscontinuedComment on above:Take 500 mg by mouth four times daily. plecanatide 3 mg oral tablet (20 sources)Start: 04-22-2024 End: 94-35-0506ysxl 1 tablet by mouth once dailyPlecanatide (Trulance) 3 mg tablet Discontinued 3 MG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 screening for suspected conditions (not mental disorders or infectious disease) (12 sources)Imaging of gastrointestinal tract abnormal; Translations: [Abnormal findings on diagnostic imaging of other parts of digestive tract]Onset: 800734-96-7403XgnccypqFtfux skin disorders (1 source)Granulomatous disorder of the skin and subcutaneous tissue, unspecified; Translations: [Non-caseating granuloma]Onset: 25-99-7613Vnltheiw Unclassified (1 source)Aneurysm of the ascending aorta, without rupture; Translations: [Aneurysm of the ascending aorta, without rupture]Onset: 06-09-2025 Results Test NameValueInterpretationReference RangeFacilityAppearance of UrineOrdered By: Jean-Claude Heaton on 17-71-8967Tgakjueuox (U)ClearNormalClearGenesis HospitalComment on above:Order Comment: Name Collection Type:: Collection Method UnknownPerformed By: #### CUU, ADDONUAPLUS #### [facility] [address] [place] [address] USABacteria [Presence] in Urine by AutomatedOrdered By: Jean-Claude Heaton on 10-08-9964Dkntijyz Auto Ql (U)None seen [HPF]None SeenGenesis HospitalBilirubin Test strip Ql (U)Ordered By: Jean-Claude Heaton on 11-33-6056Yooxkojue Ql (U)NegativeNegativeGenesis HospitalColor of Urine by AutoOrdered By: Jean-Claude Heaton on 47-33-9254Mumth (U)ColorlessNormal YellowGenesis HospitalComment on above:Order Comment: Name Collection Type:: Collection Method UnknownPerformed By: #### CUU, ADDONUAPLUS #### [address] [address] USADipstick and Microscopicon 34-67-4141Zvmoqrwl,UrineNone SeenNormalNone SeenThe [facility] Physician GroupComment on above:Order Comment: Name Collection Type:: Collection Method UnknownPerformed By: #### CUU, ADDONUAPLUS #### [address] [address] USABilirubin,UrineNegativeNormalNegativeThe [facility] Physician GroupComment on above:Order Comment: Name Collection Type:: Collection Method UnknownPerformed By: #### CUU, ADDONUAPLUS #### [facility] [address] [place] [address] USAGlucose Ql (U)NormalNormalNormalThe [facility] Physician GroupComment on above:Order Comment: Name Collection Type:: Collection Method UnknownPerformed By: #### CUU, ADDONUAPLUS #### [address] [address] USAHyaline Casts,UrineNoneNormal0-8The [facility] Physician GroupComment on above:Order Comment: Name Collection Type:: Collection Method UnknownPerformed By: #### CUU, ADDONUAPLUS #### [address] [address] USAMucus,UrineRareNormalThe [facility] Physician GroupComment on above:Order Comment: Name Collection Type:: Collection Method UnknownResult Comment: PERFORMED BY: [place] [address] PATHOLOGIST GEOLOGY INSTRUCTOR LATONYA BE M.D.Performed By: #### CUU, ADDONUAPLUS #### [place] [address] USANitrite,UrineNegativeNormalNegativeHendry Regional Medical Center Physician GroupComment on above:Order Comment: Name Collection Type:: Collection Method UnknownPerformed By: #### CUU, ADDONUAPLUS #### [place] [address] USAOccult Blood,UrineNegativeNormalNegativeThe [facility] Physician GroupComment on above:Order Comment: Name Collection Type:: Collection Method UnknownPerformed By: #### CUU, ADDONUAPLUS #### [place] [address] USAProtein,UrineNegativeNormalNegativeHendry Regional Medical Center Physician GroupComment on above:Order Comment: Name Collection Type:: Collection Method UnknownPerformed By: #### CUU, ADDONUAPLUS #### [place] [address] USARBC,Xcpgv3-6Qhhxwh5-9Qeh [facility] Physician GroupComment on above:Order Comment: Name Collection Type:: Collection Method Unknown Performed By: #### CUU, ADDONUAPLUS #### [place] [address] USASpecificy Columbus,Urine1.502Bpzyut4.001-1.030The [facility] Physician GroupComment on above:Order Comment: Name Collection Type:: Collection Method UnknownPerformed By: #### CUU, ADDONUAPLUS #### [place] [address] USAUrobilinogen,UrineNormalNormalNormalThe [facility] Physician GroupComment on above:Order Comment: Name Collection Type:: Collection Method UnknownPerformed By: #### CUU, ADDONUAPLUS #### [facility] [address] [place] [address] USAWBC,Rjdhn8-2Cspvvh6-7Iwa [facility] Physician GroupComment on above:Order Comment: Name Collection Type:: Collection Method Unknown Performed By: #### CUU, ADDONUAPLUS #### [facility] [address] [place] [address] USAEpithelial cells.squamous [#/area] in Urine sediment by Automated countOrdered By: Jean-Claude Heaton on 36-80-1572Ssofvxboiy cells.squamous Auto (Urine sed) [#/Area]N/AFUC HealthErythrocytes [#/area] in Urine sediment by Automated countOrdered By: Jean-Claude Heaton on 67-92-6062SBQ Auto (Urine sed) [#/Area]1-2 [HPF]0-4FUC HealthGlucose [Mass/volume] in Urine by Test stripOrdered By: Jean-Claude Heaton on 25-71-8494Dgendfo Test strip (U) [Mass/Vol]Normal mg/dLNormOhioHealth Berger HospitalHemoglobin Test strip Ql (U)Ordered By: Jean-Claude Heaton on 71-19-1419Gyiicyopcj Ql (U)NegativeNegMorrow County Hospital Hyaline casts [#/area] in Urine sediment by Automated countOrdered By: Jean-Claude Heaton on 74-62-9886Lbsouia casts Auto (Urine sed) [#/Area]None [LPF]0-8 Genesis HospitalKetones [Presence] in Urine by Test strip Ordered By: Jean-Claude Heaton on 21-61-2436Ctzvwnj Ql (U)NegativeNormalQuail Run Behavioral Healthative Genesis HospitalComment on above:Order Comment: Name Collection Type:: Collection Method UnknownPerformed By: #### CUU, ADDONUAPLUS #### [facility] [address] [place] [address] USALeukocyte esterase [Presence] in Urine by Test strip Ordered By: Jean-Claude Heaton on 04-88-9808Bmyxzkstq esterase Test strip Ql (U) NegativeNormalNegMorrow County HospitalComment on above:Order Comment: Name Collection Type:: Collection Method UnknownPerformed By: #### SLIM, THAONUAPLUS #### [facility] [address] [place] [address] USALeukocytes [#/area] in Urine sediment by Automated count Ordered By: Jean-Claude Heaton on 13-85-1809ZRP Auto (Urine sed) [#/Area]1-2 [HPF]0-4 Genesis HospitalMucus [Presence] in Urine by AutomatedOrdered By: Jean-Claude Heaton on 63-98-3283Wijbn Auto Ql (U)Rare [LPF]Genesis HospitalNitrite Test strip Ql (U)Ordered By: Jean-Claude Heaton on 07-10-2025 Nitrite Ql (U)NegativeNegativeGenesis HospitalProtein Test strip (U) [Mass/Vol]Ordered By: Jean-Claude Heaton on 42-98-3653Djswuqa (U) [Mass/Vol]NegativeNegRiverview Health Institutepecific gravity Test strip (U) [Rel density]Ordered By: Jean-Claude Heaton on 01-64-0482Rrvuwrla gravity (U) [Rel density]1.0101.001-1.030Genesis HospitalUrine Culture on 10-04-9034Pmllssuv identified Cx Nom (U)<9,000 colonies/ml mixed bacterial skin contaminants 2 Days PERFORMED BY: [place] [address] PATHOLOGIST GEOLOGY INSTRUCTOR LATONYA BE M.D.NormalThe [facility] Physician GroupComment on above: Performed By: #### SLIM, CHRISUAPLUS #### [facility] [address] [place] [address] USAUrobilinogen Test strip (U) [Mass/Vol]Ordered By: Jean-Claude Heaton on 21-83-3818Ssdzvnxhwcnj (U) [Mass/Vol]Normal mg/dLNormalGenesis HospitalpH of Urine by Test stripOrdered By: Jean-Claude Heaton on 69-01-4173cC (U)5.0 [pH]Normal5.0-9.0Genesis HospitalComment on above:Order Comment: Name Collection Type:: Collection Method UnknownPerformed By: #### BÁRBARA SMALLS #### [facility] [address] [place] [address] [facility] HOSPITALCNOVSPon 33-75-5179NNLZLOYelzi (SP) Office ([place]) DOC BURNS ([id number]) 1950 M Date Time Provider Department 06/27/25 2:40 PM LINETTE BAI During your visit today, we recorded the following information about you: Temperature Pulse Respiration Blood pressure 97.1 degrees 62/minute 16/minute 121/56 Weight 75.9 kg Linette Bai MD 06/28/2025 12:04 PM Signed NAME: Doc Burns CLINIC NO.: [id number] DATE OF SERVICE: June 27, 2025 (Zac) Some elements in this clinic note that are critical to medical decision making have been carefully reviewed and included from a prior clinic note dated: May 08, 2025 (Rick). Referring Provider: Dr. Shaikh Etienne Additional Clinicians involved in Doc Burns's care: Richard Lentz DO DIAGNOSIS: lung cancer CASE SUMMARY / ASSESSMENT: 75 year old gentleman diagnosed with early stage [...] 6-month gap between resection and presentation to nm. He remains at high risk because of [...] needed further evaluation which turned up benign. SUMMARIZED PLAN OF CARE: CT Chest w/ con - 11 weeks RTC in 12 weeks AI ASSISTED A/P: 1. Lung nodules (R91.8) 2. Malignant neoplasm of unspecified part of unspecified bronchus or lung (HCC) (C34.90) 3. Personal history of malignant neoplasm of bronchus and lung (Z85.118) Recent imaging showed right upper lobe collapse, which is not applicable due to prior resection. Multiple pulmonary nodules noted, with some increasing in size up to 9 mm; these have fluctuated over time. - Continue serial CT chest imaging every few months to monitor nodule progression; next scan in 11 weeks. - Follow-up in 12 weeks to review imaging results. - Will contact radiologist to clarify context of right upper lobe findings. 4. Personal history of nicotine dependence (Z87.891) Patient continues to smoke approximately half a pack per day. - Discussed ongoing smoking habits. - CASE HISTORY: Reverse Chronological Order 06/19/2025 - CT Chest : 1. Newly apparent right upper lobe collapse, [...] apparent subacute/healing fractures involving multiple left ribs. 04/17/2025 - CT Chest wo: 1. Small left pleural effusion. 2. Left lower lobe consolidation and/or collapse 3. 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 4. The ascending aorta measures 4.8 cm. 5. Nondisplaced fractures of the left lateral 5-8 ribs. #6 centrilobular emphysema and patchy groundglass opacities in the lungs. 6. Peripheral nodule in the left up (more content not included)...NormalGenesis Hospital W Auto Differential panel (Bld) on 21-20-8510Bcakmziql (Bld) [#/Vol]0.08 10*3/uLNormal<0.11CSelect [facility] on above:Order Comment: Specimen Type: BLOOD SPECIMENOrdering Facility: [facility] Address:[address] [place], [place] [address]Performed By: #### 77331-2 ####[facility] LABCLIA [id number] [place], [place] [address]Hnogugfxr/100 WBC (Bld)1.0 % NormalBerger Hospital on above:Order Comment: Specimen Type: BLOOD SPECIMENOrdering Facility: [facility] Address:[address] [place], [place] [address]Performed By: #### 40026-5 ####[facility] LABCLIA [id number] [place] [address] Differential cell count method Nom (Bld)AutoNormalClevelECU Health Medical Center Comment on above:Order Comment: Specimen Type: BLOOD SPECIMENOrdering Facility: [facility] Address:[address] [place] [address] Performed By: #### 35753-8 ####[facility] LABCLIA [id number] [place], [place] [address]Ayuppbvofgu (Bld) [#/Vol]0.34 10*3/uLNormal<0.46[facility] on above:Order Comment: Specimen Type: BLOOD SPECIMENOrdering Facility: [facility] Address:[address] [place], [place] [address]Performed By: #### 54903-0 ####[facility] LABIA [id number] [place], [place] [address]Tzjgwliurpb/100 WBC (Bld)4.1 %NormalBerger Hospital on above:Order Comment: Specimen Type: BLOOD SPECIMENOrdering Facility: [facility] Address:[address] [place], [place] [address]Performed By: #### 76470-7 ####[facility] LABCLIA [id number] [place], [place] [address]Tsejfedhbur distribution width (RBC) [Ratio]13.0 %Uzwrax06.5-15.0[facility] on above: Order Comment: Specimen Type: BLOOD SPECIMENOrdering Facility: [facility] Address:[address] [place], [place] [address]Performed By: #### 44970- 8 ####[facility] LABIA [id number] [place], [place] [address]Jyxrvsydmh (Bld) [Volume fraction]39.3 %Uozvgv77.0-51.0 [facility] on above:Order Comment: Specimen Type: BLOOD SPECIMENOrdering Facility: [facility] Address:[address] [place], [place] [address]Performed By: #### 37798-9 ####[facility] LABCLIA [id number] [place], [place] [address]Lzsohumrtx (Bld) [Mass/Vol]12.8 g/dLLow13.0-17.0[facility] on above:Order Comment: Specimen Type: BLOOD SPECIMENOrdering Facility: [facility] Address:[address] [place], [place] [address]Performed By: #### 73719- 8 ####[facility] LABCLIA [id number] [place], [place] [address]Spqnpvyq granulocytes (Bld) [#/Vol]0.04 10*3/uLNormal <0.10[facility] on above:Order Comment: Specimen Type: BLOOD SPECIMENOrdering Facility: [facility] Address:[address] [place], [place] [address]Performed By: #### 41586-9 ####[facility] LABCLIA [id number] [place], [place] [address]Qzckqsra granulocytes/100 WBC (Bld)0.5 %NormalBerger Hospital on above: Order Comment: Specimen Type: BLOOD SPECIMENOrdering Facility: [facility] Address:[address] [place], [place] [address]Performed By: #### 35155- 8 ####[facility] LABCLIA [id number] [place], [place] [address]Utnztpbqgae (Bld) [#/Vol]1.78 10*3/uLNormal1.00-4.00 [facility] on above:Order Comment: Specimen Type: BLOOD SPECIMENOrdering Facility: [facility] Address:[address] [place], [place] [address]Performed By: #### 48293-8 ####[facility] LABCLIA [id number] [place], [place] [address]Odlwctxrvnj/100 WBC (Bld)21.4 %NormalBerger Hospital on above:Order Comment: Specimen Type: BLOOD SPECIMENOrdering Facility: [facility] Address:[address] [place], [place] [address]Performed By: #### 64102-5 ####[facility] LABCLIA [id number] [place], [place] [address]NAT (RBC) [Entitic mass]30.3 gsZfqncr96.0-34.0[facility] on above:Order Comment: Specimen Type: BLOOD SPECIMENOrdering Facility: [facility] Address:[address] [place], [place] [address]Performed By: #### 67512-0 ####[facility] LABCLIA [id number] [place], [place] [address]HVWJ (RBC) [Mass/Vol]32.6 g/lIAzjaaj44.5-36.0[facility] on above: Order Comment: Specimen Type: BLOOD SPECIMENOrdering Facility: [facility] Address:[address] [place], [place] [address]Performed By: #### 73006- 8 ####[facility] LABCLIA [id number] [place], [place] [address]EKC (RBC) [Entitic vol]92.9 mIFpzdff85.0-100.0[facility] on above:Order Comment: Specimen Type: BLOOD SPECIMENOrdering Facility: [facility] Address:[address] [place], [place] [address]Performed By: #### 28372-6 ####[facility] LABCLIA [id number] [place], [place] [address]Gfryuhvpe (Bld) [#/Vol]0.99 10*3/uLHigh<0.87[facility] on above:Order Comment: Specimen Type: BLOOD SPECIMENOrdering Facility: [facility] Address:[address] [place], [place] [address]Performed By: #### 32759- 8 ####[facility] LABCLIA [id number] [place], [place] [address]Yzijwucao/100 WBC (Bld)11.9 %NormalBerger Hospital on above:Order Comment: Specimen Type: BLOOD SPECIMENOrdering Facility: [facility] Address:[address] [place], [place] [address]Performed By: #### 60965-0 ####[facility] LABCLIA [id number] [place], [place] [address]Gvvgpcbkmif (Bld) [#/Vol]5.09 10*3/uLNormal1.45-7.50[facility] on above:Order Comment: Specimen Type: BLOOD SPECIMENOrdering Facility: [facility] Address:[address] [place], [place] [address]Performed By: #### 94905-2 ####[facility] LABCLIA [id number] [place], [place] [address]Xsmrehhcefo/100 WBC (Bld)61.1 %NormalBerger Hospital on above:Order Comment: Specimen Type: BLOOD SPECIMENOrdering Facility: [facility] Address:[address] [place], [place] [address]Performed By: #### 10854-4 ####[facility] LABCLIA [id number] [place], [place] [address]Jmlkmympf RBC (Bld) [#/Vol] 10*3/uLNormal<0.01[facility] on above:Order Comment: Specimen Type: BLOOD SPECIMENOrdering Facility: [facility] Address:[address] [place], [place] [address]Performed By: #### 06837-9 ####[facility] LABCLIA [id number] [place], [place] [address]Qimcqddwp RBC/100 WBC (Bld) [Ratio]0.0 /100 WBCNormal [facility] on above:Order Comment: Specimen Type: BLOOD SPECIMENOrdering Facility: [facility] Address:[address] [place], [place] [address]Performed By: #### 49361-6 ####[facility] LABCLIA [id number] [place], [place] [address]Cdvdwuev mean volume (Bld) [Entitic vol]9.3 fLNormal9.0-12.7CSelect [facility] [place] on above:Order Comment: Specimen Type: BLOOD SPECIMENOrdering Facility: [facility] Address:[address] [place] [address] Performed By: #### 94708-4 ####[facility] LABCLIA [id number] [place], [place] [address]Rjqvjvshx (Bld) [#/Vol]262 10*3/pFQszkeb350-999OqiplwzftBerger Hospital on above:Order Comment: Specimen Type: BLOOD SPECIMENOrdering Facility: [facility] Address:[address] [place], [place] [address]Performed By: #### 22911-3 ####[facility] LABCLIA [id number] [place], [place] [address]ASR (Bld) [#/Vol]4.23 10*6/uLNormal4.20-6.00[facility] on above:Order Comment: Specimen Type: BLOOD SPECIMENOrdering Facility: [facility] Address:[address] [place], [place] [address]Performed By: #### 48941-5 ####[facility] LABIA [id number] [place], [place] [address]UPT (Bld) [#/Vol]8.32 10*3/uLNormal3.70-11.00[facility] on above: Order Comment: Specimen Type: BLOOD SPECIMENOrdering Facility: [facility] Address:[address] [place] [address] [place] [address]Rgckikeib By: #### 84672- 8 ####[facility] LABCLIA [id number] [place], [place] [address]ZM CHEST W IVCONon 31-69-8036NR CHEST W IVCON* * *Final Report* * * DATE OF EXAM: Jun 19 2025 2:31PM [facility] 0539 - CT CHEST W IVCON / [...] images through the upper abdomen are stable. Clam Bed Worker (topogram) images: No additional findings. IMPRESSION: 1. Newly apparent right upper lobe [...] any questions regarding this interpretation, please call [phone]. If you are unable to reach us at the number above, please feel free to contact [facility] eRadiology at [phone]. [id number] Memorial HospitalComprehensive metabolic 2000 panelon 96-75-8677Kwxdfat [Mass/Vol]4.0 g/dLNormal3.9-4.9CSelect [facility] [place] on above:Order Comment: Specimen Type: BLOOD SPECIMENOrdering Facility: [facility] Address:[address] [place], [place] [address]Izzwbgafx By: #### 33790-6 ####[facility] LABCLIA [id number] [place], [place] [address]CUE [Catalytic activity/Vol]137 U/ENdvk28-935GpxcqllpaBerger Hospital on above:Order Comment: Specimen Type: BLOOD SPECIMENOrdering Facility: [facility] Address:[address] [place], [place] [address]Performed By: #### 11001-6 ####[facility] LABCLIA [id number] [place] [address] ALT [Catalytic activity/Vol]9 U/NOul41-82ZhamhknmfBerger Hospital on above:Order Comment: Specimen Type: BLOOD SPECIMENOrdering Facility: [facility] Address:[address] [place], [place] [address]Performed By: #### 94743-7 ####[facility] LABCLIA [id number] [place], [place] [address]Ocqsq gap [Moles/Vol]12 mmol/LNormal8-15[facility] on above:Order Comment: Specimen Type: BLOOD SPECIMENOrdering Facility: [facility] Address:[address] [place], [place] [address]Performed By: #### 35707-9 ####[facility] LABCLIA [id number] [place], [place] [address]RXB [Catalytic activity/Vol]13 U/UZvp39-57QeyrwvycuBerger Hospital on above:Order Comment: Specimen Type: BLOOD SPECIMENOrdering Facility: [facility] Address:[address] [place], [place] [address]Performed By: #### 56461-4 ####[facility] LABCLIA [id number] [place] [address] Bilirubin [Mass/Vol]0.2 mg/dLNormal0.2-1.3CSelect [facility] [place] on above:Order Comment: Specimen Type: BLOOD SPECIMENOrdering Facility: [facility] Address:[address] [place], [place] [address]Performed By: #### 74801-8 ####[facility] LABCLIA [id number] [facility] CENTERMARTINEZW[place], [place] [address]Goemhzq [Mass/Vol]9.3 mg/dLNormal8.5-10.2CSelect [facility] [place] on above:Order Comment: Specimen Type: BLOOD SPECIMENOrdering Facility: [facility] Address:[address] [place], [place] [address]Performed By: #### 72821-9 ####[facility] LABCLIA [id number] [facility] CENTERMARTINEZW[place], [place] [address]Sgbfkmlr [Moles/Vol]108 mmol/YAzoa87-209CydjgupiiBerger Hospital on above:Order Comment: Specimen Type: BLOOD SPECIMENOrdering Facility: [facility] Address:[address] [place], [place] [address]Performed By: #### 14357- 8 ####[facility] LABCLIA [id number] [facility] [place], [place] [address]WP4 [Moles/Vol]23 mmol/SEgxksh17-99MnbrxgoloBerger Hospital on above:Order Comment: Specimen Type: BLOOD SPECIMENOrdering Facility: [facility] Address:[address] [place], [place] [address]Performed By: #### 97817-3 ####[facility] LABCLIA [id number] [place], [place] [address]Psezfrqssc [Mass/Vol]0.82 mg/dL Normal0.73-1.22[facility] on above:Order Comment: Specimen Type: BLOOD SPECIMENOrdering Facility: [facility] Address:[address] [place], [place] [address]Performed By: #### 09464-9 ####[facility] LABCLIA [id number] [facility] [place], [place] [address]cQXVks SerPlBld CKD-EPI 037254 mL/min/1.73m???Normal>=60 [facility] on above:Order Comment: Specimen Type: BLOOD SPECIMENOrdering Facility: [facility] Address:[address] [place], [place] [address]Qolhjg Comment: Estimated Glomerular Filtration Rate (eGFR) is calculated using the 2020 CKD-EPI creatinine equation. This equation utilizes serum creatinine, sex, and age as parameters. The creatinine assay has traceable calibration to isotope dilution-mass spectrometry. Refer to KDIGO guidelines for clinical interpretation. In patients with unstable renal function, e.g. those with acute kidney injury, the eGFR may not accurately reflect actual GFR.Performed By: #### 68059-9 ####[facility] LABCLIA [id number] [place], [place] [address]Nggehsv [Mass/Vol]85 mg/jIGbgnfg59-58RhhsqtvvvBerger Hospital on above:Order Comment: Specimen Type: BLOOD SPECIMENOrdering Facility: [facility] Address:[address] [place], [place] [address]Result Comment: The [place] [employer] Association (ADA) provides guidance for cutoff values for fast ing glucose and random glucose. The ADA defines [...] Standards of Medical Care in Diabetes 2016, [place] [employer]. Diabetes Care. 2016.39(Suppl 1).Performed By: #### 37122-6 ####[facility] LABCLIA [id number] [place], [place] [address]Vwwtvidwf [Moles/Vol]4.0 mmol/LNormal3.7-5.1CSelect [facility] [place] on above:Order Comment: Specimen Type: BLOOD SPECIMENOrdering Facility: [facility] Address:[address] [place], [place] [address]Zjudornxm By: #### 97362-5 ####[facility] LABCLIA [id number] [place], [place] [address]Nflwvox [Mass/Vol]7.2 g/dLNormal6.3-8.0[facility] on above:Order Comment: Specimen Type: BLOOD SPECIMENOrdering Facility: [facility] Address:[address] [place], [place] [address]Performed By: #### 22020- 8 ####[facility] LABCLIA [id number] [place], [place] [address]Mfkdde [Moles/Vol]143 mmol/HMqotis249-523SsspajuosBerger Hospital on above:Order Comment: Specimen Type: BLOOD SPECIMENOrdering Facility: [facility] Address:[address] [place], [place] [address]Performed By: #### 67233-0 ####[facility] LABCLIA [id number] [place], [place] [address]Wxpb nitrogen [Mass/Vol]15 mg/dLNormal9-24[facility] on above:Order Comment: Specimen Type: BLOOD SPECIMENOrdering Facility: [facility] Address:[address] [place], [place] [address]Performed By: #### 83415-5 ####[facility] LABCLIA [id number] [place], [place] [address]Fvvvecyp SerPl-mCncon 55-35-4293Zniquxel [Mass/Vol]257.0 ng/gPCvetfe66.3-565.7CSelect [facility] [place] on above:Order Comment: Specimen Type: BLOOD SPECIMENOrdering Facility: [facility] Address:[address] [place], [place] [address]Performed By: #### 37509-9, 2132-9, 2276-4, 2284-8 ####[facility] LABCLIA [id number] [address] [place] AMERICAFolate SerPl-mCncon 06-19-2025 Folate [Mass/Vol]8.6 ng/mLNormal>4.7CSelect [facility] [place] on above: Order Comment: Specimen Type: BLOOD SPECIMENOrdering Facility: [facility] Address:[address] [place], [place] [address]Performed By: #### 43082- 8, 2132-05, 2275-12, 2284-04 ####[facility] LABCLIA [id number] [place] [id number] [place] OF AMERICAIron and Iron binding capacity panelon 54-44-0058Mgjq [Mass/Vol]64 ug/oOQsjfzf71-500AjackgoulClinton Memorial HospitalCommclaren bay special care hospital on above:Order Comment: Specimen Type: BLOOD SPECIMENOrdering Facility: [facility] Address:[address] [place], [place] [address]Performed By: #### 64824-9, 2132-05, 2275-12, 2284-04 ####[facility] LABCLIA [id number], [place] [address] [place] [facility] WESTIron binding capacity [Mass/Vol]285 ug/iDDmifyp968-360AjadejxkuBerger Hospital on above:Order Comment: Specimen Type: BLOOD SPECIMENOrdering Facility: [facility] Address:[address] [place], [place] [address]Performed By: #### 65723-1, 2132-05, 2275-12, 2284-04 ####[facility] LABCLIA [id number] VIL[place] [id number] [place] STATES OF AMERICAIron/TIBC [Molar ratio]22.5 %Zakkkt23.0-57.0[facility] Comment on above:Order Comment: Specimen Type: BLOOD SPECIMENOrdering Facility: [facility] Address:[address] [place] [address] Performed By: #### 99878-1, 2132-05, 2275-12, 2284-04 ####[facility] LABCLIA [id number] [place] [id number] [place] Vit B12 SerPl-mCncon 61-38-8895Ecahpwonp (Vitamin B12) [Mass/Vol]pg/mLHigh 232-1245CSelect [facility] [place] on above:Order Comment: Specimen Type: BLOOD SPECIMENOrdering Facility: [facility] Address:[place] [place], [place] [address]Performed By: #### 95043-9, 2132-9, 2276-4, 2284- 8 ####[facility] LABCLIA [id number] [place] [address] [place] OF AMERICAOffice Visiton 54-93-2668Gtkggg-up [id number] KatyDoc fisher 1950 M Date Provider Department Center 06/09/2025 JJ FOFANA Family History Problem Relation Age of Onset Diabetes Mother Heart disease Mother Heart disease Father Coronary artery disease Sister Family Status - Relation Status Age at Mother Father Sister Level of Service:[address] [place] OFFICE/OUTPATIENT ESTABLISHED MOD MDM 30 MIN (25) [facility] CenterCNOVSPon 81-08-4458DZLNLXPebao ([place]) Office ([place]) KATYDOC ([id number]) 1950 M Date Time Provider Department 05/08/25 3:00 PM GLENNA RAMIREZASA During your visit today, we recorded the following information about you: Temperature Pulse Respiration Blood pressure 97.8 degrees 64/minute 16/minute 121/74 Weight Height 75.5 kg 1.676 m Glenna Ramirez APRN.CONTACT CENTER CONSULTANT 05/09/2025 7:42 PM Signed NAME: Doc Burns CLINIC NO.: [id number] DATE OF SERVICE: May 08, 2025 (Rick) Some elements in this clinic note that are critical to medical decision making have been carefully reviewed and included from a prior clinic note dated: February 06, 2025 (Zac) Referring Provider: Dr. Shaikh Etienne Additional Clinicians involved in Doc Burns's care: Richard Lentz DO DIAGNOSIS: lung cancer CASE SUMMARY / ASSESSMENT: 75 year old gentleman diagnosed with early stage [...] 6-month gap between resection and presentation to nm. He remains at high risk because of [...] needed further evaluation which turned up benign. SUMMARIZED PLAN OF CARE: Morphine 5 mg IV today Oxycodone IR 10 mg TID - #42 Referral to pain management RTC in [address] Chest in 6 weeks prior to visit Continue follow up with GI - next in April - CASE HISTORY: Reverse Chronological Order 04/17/2025 - CT Chest wo: 1. Small left pleural effusion. 2. Left lower lobe consolidation and/or collapse 3. 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 4. The ascending aorta measures 4.8 cm. 5. Nondisplaced fractures of the left lateral 5-8 ribs. #6 centrilobular emphysema and patchy groundglass opacities in the lungs. 6. Peripheral nodule in the left upper lobe on axial slice #95, could be benign or malignant, recommend follow-up chest CT in 2-3 month. 04/13/2025 -CT abdomen and pelvis Multiple acute left rib fractures involving the left 6th, 7th and 8th ribs. Comminuted left clavicular fracture involving the coracoid process. Small left hemothorax with left pulmonary contusion. Near complete collapse of the right upper and middle lobes, likely chronic. No evidence of acute traumatic abnormality within the abdomen or pelvis. 04/13/2025 -CT head No acute intracranial hemorrhage. Left frontal scalp contusion and laceration without underlying calvarial fracture. Senescent changes with chronic microvascular ischemic changes and global cerebral volume loss. 04/13/2025 -CT cervical spine No acute cervical spine fracture. 04/14/2025 - Admitted after a fall for hemothorax, fractured ribs. 01/30/2025 - CT CAP: Chest: Improved aeration of the right middle lobe. No new lobar consolidation. Numerous bilateral pulmonary nodules. Some previously visualized nodules have either resolved or decreased in size, whereas others are new. Findings may be infectious/inflammatory or neoplastic in nature. Recommen (more content not included)...NormalClinton Memorial HospitalCNPNon 59-31-5148EFZXAthonhnit ([facility]) DOC BURNS ([id number]) 1950 M Date Time Provider Department 05/08/25 GLENNA RAMIREZ During your visit today, we recorded the following information about you: Jasne Laughlin 05/08/2025 4:37 PM Signed Patient refused Pain Management referral at this time. States he has other therapists involved. Notified patient to let us know when he is ready to be referred and where. Patient verbalized understanding. Jasen Laughlin Allergies As of Date: 05/08/2025 (No Known Allergies) Date Reviewed: 05/08/2025 Reviewed by: Prachi Stephens MA - Fully Assessed Reason for Visit: FYI-No Action Needed [265] Prescriptions as of 05/09/2025 - oxyCODONE IR (ROXICODONE) 5 mg immediate release tablet Take 5 mg by mouth three times a day as needed. - iv contrast (will be provided with [...] protocol in theCT contrast administration guidelines link. - sertraline (ZOLOFT) 50 mg tablet Take 50 mg by mouth once daily. - Cyanocobalamin-Cobamamide (B-12 PLUS) 5,000-100 mcg subl Dissolve 1 tablet under the tongue once daily. - amitriptyline (ELAVIL) 50 mg tablet Take 50 mg by mouth daily at bedtime. - linaCLOtide (LINZESS) 290 mcg capsule - clopidogrel (PLAVIX) 75 mg tablet Take [...] TWICE DAILY Problem List As Of Date 05/08/2025 Noted Resolved Malignant neoplasm of overlapping sites [...] emphysema (HCC) [J43.1] 07/21/2022 Encounter Status:Closed by JASEN LAUGHLIN on 05/09/25NoAultman HospitalXR SHOULDER LT MIN 2 VWSon 26-59-3292EI SHOULDER LT MIN 2 VWSXR SHOULDER LT MIN 2 VWS History: Fracture Exam/Technique: 3 views of the [...] process of the scapula described on previous examination dated 04/14/2025 is not as well demonstrated on the current study. Finalized by Krzysztof Rojas MD on 05/07/2025 3:09 PMNormalProMediMemorial HospitalBASIC METABOLIC PANELon 25-35-9617Bggvc gap [Moles/Vol]8 mmol/LNormal 5-15ProSouthwest General Health Center HospitalComment on above:Performed By: #### LIPA #### [facility] ([facility] [place]) [address] [place] [address] VIRCalcium [Mass/Vol]8.9 mg/dLNormal8.5-10.5Pro[facility] HospitalComment on above:Performed By: #### LIPA #### [facility] ([facility]) [address] [place] [address] VIRChloride [Moles/Vol]104 mmol/UJafwda37-938TonGoqiry [place] HospitalComment on above:Performed By: #### LIPA #### [facility] ([facility]) [address] [place] [address] VIRCO2 [Moles/Vol]29 mmol/NLeknfk64-50SboUupgnk [facility] Comment on above:Performed By: #### LIPA #### [facility] ([facility]) [address] [place] [address] VIRCreatinine [Mass/Vol]0.94 mg/dLNormal0.60-1.30ProSouthwest General Health Center HospitalComment on above:Result Comment: METHOD TRACEABLE TO IDMS STANDARDPerformed By: #### LIPA #### [facility] ([facility]) [address] [place] [address] VIRGFR/1.73 sq M.predicted among non-blacks MDRD (S/P/Bld) [Vol rate/Area]85 mL/min/{1.73_m2}Normal>=60ProUniversity Hospitals Health SystemComment on above:Result Comment: Reported eGFR is based on the CKD-EPI 2020 equation that does not use a race coefficient. EGFR not calculated due to patient's gender not being defined.Performed By: #### LIPA #### [facility] ([facility]) [address] [place] [address] VIRGlucose [Mass/Vol]86 mg/uYNihpyt76-43VojBcofto [place] HospitalComment on above:Performed By: #### LIPA #### [facility] ([facility]) [address] [place] [address] VIRPotassium [Moles/Vol]3.8 mmol/LNormal3.5-5.0ProSouthwest General Health Center HospitalComment on above:Performed By: #### LIPA #### [facility] ([facility]) [address] [place] [address] VIRSodium [Moles/Vol]141 mmol/BTfyani415-277IfsFvgcqo [facility] HospitalComment on above:Performed By: #### ADEN #### [facility] ([facility]) [address] [place] [address] VIRUrea nitrogen [Mass/Vol]14 mg/dLNormal5-27Avita Health SystemComment on above:Performed By: #### ADEN #### [facility] ([facility]) [address] [place] [address] VIRBasic Metabolic Panelon 60-90-4177Mfebq gap [Moles/Vol]8 mmol/L5 - 15 mmol/LProMedica Health SystemCalcium [Mass/Vol]8.9 mg/dL8.5 - 10.5 mg/dLSelect Medical Specialty Hospital - Cincinnati NorthChloride [Moles/Vol]104 mmol/L98 - 109 mmol/L [facility] SystemCO2 [Moles/Vol]29 mmol/L22 - 32 mmol/[facility] SystemCreatinine [Mass/Vol]0.94 mg/dL0.60 - 1.30 mg/dLSelect Medical Specialty [facility] North EGFR Non-Race Wcqdbfmzi64- PINFPTuscarawas Hospital SystemGlucose [Mass/Vol]86 mg/dL 65 - 99 mg/dLSelect Medical Specialty Hospital - [facility] NorthInterpretation and review of laboratory resultsNormalPaulding County Hospital SystemPotassium [Moles/Vol]3.8 mmol/L3.5 - 5.0 mmol/LProMedica Health SystemSodium [Moles/Vol]141 mmol/L134 - 146 mmol/L [facility] SystemUrea nitrogen [Mass/Vol]14 mg/dL5 - 27 mg/dLPaulding County Hospital SystemPaulding County Hospital SystemCBC (NO DIFF)on 56-82-5299Ubnertqpqlc distribution width (RBC) [Ratio]13.7 %Afsjzn65.5-15[facility] Comment on above:Performed By: #### ADEN #### [facility] ([facility]) [address] [place] [address] VIRHematocrit (Bld) [Volume fraction]36.6 %Aof61-97XpqFxjhapAvita Health SystemComment on above:Performed By: #### BENIGNOA #### [facility] ([facility]) [address] [place] [address] VIRHemoglobin (Bld) [Mass/Vol]12.2 g/aQXnf38-85MkgOsbfwg [facility]chland HospitalComment on above:Performed By: #### LIPA #### [facility] ([facility]) [address] [place] [address] VIRMCH (RBC) [Entitic mass]31.0 oaFkotql92-36AlxByzjhe [facility] HospitalComment on above:Performed By: #### LIPA #### [facility] ([facility]) [address] [place] [address] VIRMCHC (RBC) [Mass/Vol]33.5 g/dMIjskhz16-25MnsIdtpyj [facility] HospitalComment on above:Performed By: #### LIPA #### [facility] ([facility]) [address] [place] [address] VIRMCV (RBC) [Entitic vol]93 rASprfpy69-468ZxeMwzexc [facility] HospitalComment on above:Performed By: #### LIPA #### [facility] ([facility]) [address] [place] [address] VIRPlatelet mean volume (Bld) [Entitic vol]7.5 fLNormal7-12 [facility] HospitalComment on above:Performed By: #### LIPA #### [facility] ([facility]) [address] [place] [address] VIRPlatelets (Bld) [#/Vol]294 10*3/tTOefphs872-698AxmGjpskz Kaur HospitalComment on above:Performed By: #### LIPA #### [facility] ([facility]) [address] [place] [address] VIRRBC COUNT3.96 X10E12/LLow4.1-5.7Pro[facility]ica [facility] Comment on above:Performed By: #### LIPA #### [facility] ([facility]) [address] [place] [address] VIRWBC (Bld) [#/Vol]9.6 10*3/uLNormal4-11ProUniversity Hospitals Health SystemComment on above:Performed By: #### LIPA #### [facility] ([facility]) [address] [place] [address] VIRCBC without diffon 99-42-7158Hwrhaunrgay distribution width (RBC) [Ratio]13.7 %11.5 - 15 %[facility] Hospital [facility] NorthHematocrit (Bld) [Volume fraction]36.6 %Low39 - 50 %[facility] NorthHemoglobin (Bld) [Mass/Vol] 12.2 g/dLLow13 - 17 g/dLSelect Medical Specialty Hospital - Cincinnati NorthInterpretation and review of laboratory resultsAbnormSelect Specialty HospitalH (RBC) [Entitic mass]31 pg27 - 34 [facility] HospitalMCHC (RBC) [Mass/Vol]33.5 g/dL32 - 36 g/dL [facility] NorthMCV (RBC) [Entitic vol]93 fL80 - 100 [facility] HospitalPlatelet mean volume (Bld) [Entitic vol]7.5 fL7 - 12 [facility] HospitalPlatelets (Bld) [#/Vol]294 10*3/uLSelect Medical Specialty Hospital - Cincinnati NorthRBC (Bld) [#/Vol] 3.96 10*6/uLLowSelect Medical Specialty Hospital - Cincinnati NorthWBC LM Ql (Sput)9.6Jefferson HospitalBASIC METABOLIC PANELon 94-75-4319Unisf gap [Moles/Vol]7 mmol/LNormal5-15[facility] HospitalComment on above:Performed By: #### LIPA #### [facility] ([facility]) [address] [place] [address] VIRCalcium [Mass/Vol]8.5 mg/dLNormal8.5-10.5PMercy Health St. Charles HospitalComment on above:Performed By: #### LIPA #### [facility] ([facility]) [address] [place] [address] VIRChloride [Moles/Vol]108 mmol/YFgqitd34-452LypLpjwnc [place] HospitalComment on above:Performed By: #### LIPA #### [facility] ([facility]) [address] [place] [address] VIRCO2 [Moles/Vol]28 mmol/IPtdjty51-64VekTlausw [facility] Comment on above:Performed By: #### LIPA #### [facility] ([facility]) [address] [place] [address] VIRCreatinine [Mass/Vol]1.03 mg/dLNormal0.60-1.30ProUniversity Hospitals Health SystemComment on above:Result Comment: METHOD TRACEABLE TO IDMS STANDARDPerformed By: #### LIPA #### [facility] ([facility]) [address] [place] [address] VIRGFR/1.73 sq M.predicted among non-blacks MDRD (S/P/Bld) [Vol rate/Area]76 mL/min/{1.73_m2}Normal>=60ProUniversity Hospitals Health SystemComment on above:Result Comment: Reported eGFR is based on the CKD-EPI 2020 equation that does not use a race coefficient.Performed By: #### LIPA #### [facility] ([facility]) [address] [place] [address] VIRGlucose [Mass/Vol]94 mg/xKVjdrua60-57YdpGwrklq [facility] HospitalComment on above:Performed By: #### LIPA #### [facility] ([facility]) [address] [place] [address] VIRPotassium [Moles/Vol]3.7 mmol/LNormal3.5-5.0ProUniversity Hospitals Health SystemComment on above:Performed By: #### LIPA #### [facility] ([facility]) [address] [place] [address] VIRSodium [Moles/Vol]143 mmol/IMbnmfy942-029YzvGjnvyvAvita Health SystemComment on above:Performed By: #### ADEN #### [facility] ([facility]) [address] [place] [address] VIRUrea nitrogen [Mass/Vol]20 mg/dLNormal5-27Av[facility] Health SystemComment on above:Performed By: #### ADEN #### [facility] ([facility]) [address] [place] [address] VIRBasic Metabolic Panelon 08-06-1213Mswbz gap [Moles/Vol]7 mmol/L5 - 15 mmol/LPrWeisbrod Memorial County Hospital Health SystemCalcium [Mass/Vol]8.5 mg/dL8.5 - 10.5 mg/dLPaulding County Hospital SystemChloride [Moles/Vol]108 mmol/L98 - 109 mmol/L [facility] SystemCO2 [Moles/Vol]28 mmol/L22 - 32 mmol/[facility] SystemCreatinine [Mass/Vol]1.03 mg/dL0.60 - 1.30 mg/dLPaulding County Hospital System EGFR Non-Race Nmnyzrmog04- PINFPTuscarawas Hospital SystemGlucose [Mass/Vol]94 mg/dL 65 - 99 mg/dLSelect Medical Specialty Hospital - Cincinnati NorthInterpretation and review of laboratory resultsNormalPaulding County Hospital SystemPotassium [Moles/Vol]3.7 mmol/L3.5 - 5.0 mmol/LProMedica Health SystemSodium [Moles/Vol]143 mmol/L134 - 146 mmol/L [facility] SystemUrea nitrogen [Mass/Vol]20 mg/dL5 - 27 mg/dLAscension St. Luke's Sleep Center SystemCBC (NO DIFF)on 88-71-9823Dbfjfrrevmt distribution width (RBC) [Ratio]13.6 %Dqzyxv21.5-15[facility] Comment on above:Performed By: #### ADEN #### [facility] ([facility]) [address] [place] [address] VIRHematocrit (Bld) [Volume fraction]33.7 %Unq31-21VbcVmukeh Kaur HospitalComment on above:Performed By: #### LIPA #### [facility] ([facility]) [address] [place] [address] VIRHemoglobin (Bld) [Mass/Vol]11.5 g/tGHzw22-17IcbYjgzfg Kaur HospitalComment on above:Performed By: #### LIPA #### [facility] ([facility]) [address] [place] [address] VIRMCH (RBC) [Entitic mass]31.0 npCobnyq06-38JukSdnkue Kaur HospitalComment on above:Performed By: #### LIPA #### [facility] ([facility]) [address] [place] [address] VIRMCHC (RBC) [Mass/Vol]34.0 g/zRKrhodp90-68TdlHsyxba [facility] HospitalComment on above:Performed By: #### LIPA #### [facility] ([facility]) [address] [place] [address] VIRMCV (RBC) [Entitic vol]91 xUVtvqzp42-250UsaRpwljt [facility] HospitalComment on above:Performed By: #### LIPA #### [facility] ([facility]) [address] [place] [address] VIRPlatelet mean volume (Bld) [Entitic vol]7.2 fLNormal7-12 [facility] HospitalComment on above:Performed By: #### LIPA #### [facility] ([facility]) [address] [place] [address] VIRPlatelets (Bld) [#/Vol]284 10*3/qLCytwht612-246DkpXmjpiq [facility] HospitalComment on above:Performed By: #### LIPA #### [facility] ([facility]) [address] [place] [address] VIRRBC COUNT3.69 X10E12/LLow4.1-5.7[facility] Comment on above:Performed By: #### ADEN #### [facility] ([facility]) [address] [place] [address] VIRWBC (Bld) [#/Vol]8.9 10*3/uLNormal4-11ProUniversity Hospitals Health SystemComment on above:Performed By: #### AEDN #### [facility] ([facility]) [address] [place] [address] VIRCBC without diffon 75-72-3112Itrvvabknsu distribution width (RBC) [Ratio]13.6 %11.5 - 15 %[facility] NorthHematocrit (Bld) [Volume fraction]33.7 %Low39 - 50 %[facility] NorthHemoglobin (Bld) [Mass/Vol] 11.5 g/dLLow13 - 17 g/dLSelect Medical Specialty Hospital - Cincinnati NorthInterpretation and review of laboratory resultsAbnoCone Health Annie Penn HospitalH (RBC) [Entitic mass]31 pg27 - 34 [facility] HospitalMCHC (RBC) [Mass/Vol]34 g/dL32 - 36 g/dLSelect Medical Specialty Hospital - Cincinnati NorthMCV (RBC) [Entitic vol]91 fL80 - 100 [facility] Platelet mean volume (Bld) [Entitic vol]7.2 fL7 - 12 [facility] Platelets (Bld) [#/Vol]284 10*3/uLSelect Medical Specialty Hospital - Cincinnati NorthRBC (Bld) [#/Vol]3.69 10*6/uLLowSelect Medical Specialty Hospital - Cincinnati NorthWBC LM Ql (Sput)8.9Jefferson HospitalPOTASSIUMon 28-86-6798Jwmjxxfgb [Moles/Vol]4.0 mmol/L Normal3.5-5.0[facility] Health SystemComment on above:Performed By: #### LIPA #### [facility] ([facility]) [address] [place] [address] VIRPotassiumon 87-25-9509Lcsqipqvxqtwhj and review of laboratory resultsNormalSelect Medical Specialty Hospital - [facility] NorthPotassium [Moles/Vol]4 mmol/L3.5 - 5.0 mmol/LProMedica University of Arkansas for Medical SciencesXR CHEST 1 VWon 99-84-4150IA CHEST 1 VWXR CHEST 1 VW Single view chest History: Difficulty breathing, shortness of breath Comparison: 04/22/2025 Impression: Persistent left mid to lower lung airspace opacity. No new or growing airspace opacity. No pneumothorax. Small left pleural effusion. Nonenlarged heart. Sternotomy, cardiac valve prosthesis, left atrial appendage closure device. Left rib fractures. Finalized by Keny Jimenez MD on 04/23/2025 5:02 AMNormalAvita Health SystemXR Chest Single viewon [id number]a Frick HospitalRadiology Study observation (narrative)[facility] NorthBASIC METABOLIC PANELon 36-79-0364Kvltr gap [Moles/Vol]8 mmol/LNormal5-15 [facility] Health SystemComment on above:Performed By: #### LIPA #### [facility] ([facility]) [address] [place] [address] VIRCalcium [Mass/Vol]8.4 mg/dLLow8.5-10.5PMercy Health St. Charles HospitalComment on above:Performed By: #### LIPA #### [facility] ([facility]) [address] [place] [address] VIRChloride [Moles/Vol]105 mmol/PTmhxqg93-454QdeFagqprAvita Health SystemComment on above:Performed By: #### LIPA #### [facility] ([facility]) [address] [place] [address] VIRCO2 [Moles/Vol]29 mmol/KNacysu81-92ZazMtyukfMercy Health St. Charles Hospital Comment on above:Performed By: #### LIPA #### [facility] ([facility]) [address] [place] [address] VIRCreatinine [Mass/Vol]0.82 mg/dLNormal0.60-1.30ProMedica Kaur HospitalComment on above:Result Comment: METHOD TRACEABLE TO IDMS STANDARDPerformed By: #### LIPA #### [facility] ([facility]) [address] [place] [address] VIREGFR (CKD-EPI) NON-RACE DEPENDENT>^90Normal>=60ProMedica Kaur HospitalComment on above:Result Comment: Reported eGFR is based on the CKD-EPI 2020 equation that does not use a race coefficient.Performed By: #### LIPA #### [facility] ([facility]) [address] [place] [address] VIRGlucose [Mass/Vol]85 mg/zZMtmkzh11-40QakPyjhsw [place] HospitalComment on above:Performed By: #### LIPA #### [facility] ([facility]) [address] [place] [address] VIRPotassium [Moles/Vol]3.3 mmol/LLow3.5-5.0Pro[facility]ica [place] HospitalComment on above:Performed By: #### LIPA #### [facility] ([facility]) [address] [place] [address] VIRSodium [Moles/Vol]142 mmol/CEnqedq660-435LsqEgfspe [place] HospitalComment on above:Performed By: #### LIPA #### [facility] ([facility]) [address] [place] [address] VIRUrea nitrogen [Mass/Vol]17 mg/dLNormal5-27Pro[facility] [place] HospitalComment on above:Performed By: #### LIPA #### [facility] ([facility]) [address] [place] [address] VIRBLOOD GAS, ARTERIALon 71-67-7761DBBT,EXCESS2.0 mmol/LNormal 0.0-2.0ProMedica Kaur HospitalComment on above:Performed By: #### AMYL #### [facility] ([facility]) [address] [place] [address] VIRHCO3 (Bld) [Moles/Vol]27.2 mmol/LHigh22.0-26.0Pro[facility]ica [place] HospitalComment on above:Performed By: #### AMYL #### [facility] ([facility]) [address] [place] [address] VIRINSP. O2 CONC.50 %NormalProMedica [place] HospitalComment on above:Performed By: #### AMYL #### [facility] ([facility]) [address] [place] [address] VIROxygen saturation in Blood93.0 %Normal>90.0Pro[facility]ica [place] HospitalComment on above:Performed By: #### AMYL #### [facility] ([facility]) [address] [place] [address] VIRPCO2 OVOWXRYD49.4 vyJoZwppce33.0-45.0Pro[facility]ica [place] HospitalComment on above:Performed By: #### AMYL #### [facility] ([facility]) [address] [place] [address] VIRPH ARTERIAL7.130Cwhepp5.350-7.450[facility] [place] [facility] Comment on above:Performed By: #### AMYL #### [facility] ([facility]) [address] [place] [address] VIRPO2 BVBHQETQ26 bfFrGah91-384BogOorttb [place] HospitalComment on above:Performed By: #### AMYL #### [facility] ([facility]) [address] [place] [address] VIRPOC IZABEL'S TESTPassNormalProMedica [place] HospitalComment on above:Performed By: #### AMYL #### [facility] ([facility]) [address] [place] [address] VIRSAMPLE SITEL RadNormalProMedica [place] HospitalComment on above:Performed By: #### AMYL #### [facility] ([facility]) [address] [place] [address] VIRSAMPLE TYPEARTERIALNoChildren's Hospital of ColumbusComment on above:Performed By: #### AMYL #### [facility] ([facility]) [address] [place] [address] VIRSOURCE OF OXYGENVTMNormalAvita Health SystemComment on above:Performed By: #### AMYL #### [facility] ([facility]) [address] [place] [address] VIRBasic Metabolic Panelon 48-27-1866Jahze gap [Moles/Vol]8 mmol/L5 - 15 mmol/LPrWeisbrod Memorial County Hospital Health SystemCalcium [Mass/Vol]8.4 mg/dLLow8.5 - 10.5 mg/dLSelect Medical Specialty Hospital - Cincinnati NorthChloride [Moles/Vol]105 mmol/L98 - 109 mmol/L [facility] NorthCO2 [Moles/Vol]29 mmol/L22 - 32 mmol/[facility] SystemCreatinine [Mass/Vol]0.82 mg/dL0.60 - 1.30 mg/dLSelect Medical [facility]ty Hospital - [facility] North EGFR Non-Race Dependent- PINPremier Health Upper [facility] Medical Center SystemGlucose [Mass/Vol]85 mg/dL65 - 99 mg/dLSelect Medical Specialty Hospital - [facility] NorthInterpretation and review of laboratory resultsAbnormalPaulding County Hospital SystemPotassium [Moles/Vol]3.3 mmol/LLow3.5 - 5.0 mmol/[facility] HospitaloMedica Health SystemSodium [Moles/Vol]142 mmol/L134 - 146 mmol/L [facility] - [facility] NorthUrea nitrogen [Mass/Vol]17 mg/dL5 - 27 mg/dLMagee Rehabilitation HospitalCBC WITH AUTO DIFFERENTIALon 04-22-2025 BASOPHILS ABSOLUTE COUNT (10*3/UL) BY AUTOMATED COUNT0.1 10*3/uLNormal0.0-0.2 [facility] SystemCommclaren bay special care hospital on above:Result Comment: This is an appended report. These results have been appended to a previously preliminary verified report.Performed By: #### AMYL #### [facility] ([facility]) [address] [place] [address] VIRBASOPHILS RELATIVE PERCENT BY AUTOMATED COUNT0.8 %Normal [facility] HospitalComment on above:Result Comment: This is an appended report. These results have been appended to a previously preliminary verified report.Performed By: #### AMYL #### [facility] ([facility]) [address] [place] [address] VIRCELLAVISION DIFFERENTIAL TYPEAUTOMATED DIFFERENTIALNormal [facility] HospitalComment on above:Result Comment: This is an appended report. These results have been appended to a previously preliminary verified report.Performed By: #### AMYL #### [facility] ([facility]) [address] [place] [address] VIREosinophils (Bld) [#/Vol]0.4 10*3/uLNormal0.0-0.4ProSouthwest General Health Center HospitalComment on above:Result Comment: This is an appended report. These results have been appended to a previously preliminary verified report. Performed By: #### AMYL #### [facility] ([facility]) [address] [place] [address] VIREOSINOPHILS RELATIVE PERCENT BY AUTOMATED COUNT4.4 %Normal [facility] HospitalComment on above:Result Comment: This is an appended report. These results have been appended to a previously preliminary verified report.Performed By: #### AMYL #### [facility] ([facility]) [address] [place] [address] VIRErythrocyte distribution width (RBC) [Ratio]13.4 %Normal 11.5-15ProSouthwest General Health Center HospitalComment on above:Performed By: #### AMYL #### [facility] ([facility]) [address] [place] [address] VIRHematocrit (Bld) [Volume fraction]36.4 %Hif75-87XukIqapjq [place] HospitalComment on above:Performed By: #### AMYL #### [facility] ([facility]) [address] [place] [address] VIRHemoglobin (Bld) [Mass/Vol]12.0 g/rSXpu91-46GevPgviyc [place] HospitalComment on above:Performed By: #### AMYL #### [facility] ([facility]) [address] [place] [address] VIRLYMPHOCYTES ABSOLUTE COUNT (10*3/UL) BY AUTOMATED COUNT1.2 10*3/uLNormal1.0-3.5[facility] HospitalComment on above:Result Comment: This is an appended report. These results have been appended to a previously preliminary verified report.Performed By: #### AMYL #### [facility] ([facility]) [address] [place] [address] VIRLYMPHOCYTES RELATIVE PERCENT BY AUTOMATED COUNT12.0 %Normal [facility] HospitalComment on above:Result Comment: This is an appended report. These results have been appended to a previously preliminary verified report.Performed By: #### AMYL #### [facility] ([facility]) [address] [place] [address] VIRMCH (RBC) [Entitic mass]30.6 qhFbmjiq09-48RvkVnvysh [place] HospitalComment on above:Performed By: #### AMYL #### [facility] ([facility]) [address] [place] [address] VIRMCHC (RBC) [Mass/Vol]32.9 g/rCHkrdus98-23NixEcftnh [place] HospitalComment on above:Performed By: #### AMYL #### [facility] ([facility]) [address] [place] [address] VIRMCV (RBC) [Entitic vol]93 nFPgrylh35-307YsvEmmpzl [place] HospitalComment on above:Performed By: #### AMYL #### [facility] ([facility]) [address] [place] [address] VIRMONOCYTES ABSOLUTE COUNT (10*3/UL) BY AUTOMATED COUNT1.0 10*3/uLHigh0.0-0.9ProUniversity Hospitals Health SystemCommclaren bay special care hospital on above:Result Comment: This is an appended report. These results have been appended to a previously prelimi nary verified report.Performed By: #### AMYL #### [facility] ([facility]) [address] [place] [address] VIRMONOCYTES RELATIVE PERCENT BY AUTOMATED COUNT10.2 %Normal [facility] Health SystemComment on above:Result Comment: This is an appended report. These results have been appended to a previously preliminary verified report.Performed By: #### AMYL #### [facility] ([facility]) [address] [place] [address] VIRNEUTROPHILS ABSOLUTE COUNT BY AUTOMATED COUNT7.1 10*3/uLHigh 1.5-6.6ProUniversity Hospitals Health SystemCommclaren bay special care hospital on above:Result Comment: This is an appended report. These results have been appended to a previously preliminary verified report.Performed By: #### AMYL #### [facility] ([facility]) [address] [place] [address] VIRNEUTROPHILS RELATIVE PERCENT BY AUTOMATED COUNT72.6 %Normal [facility] SystemCommclaren bay special care hospital on above:Result Comment: This is an appended report. These results have been appended to a previously preliminary verified report.Performed By: #### AMYL #### [facility] ([facility]) [address] [place] [address] VIRPlatelet mean volume (Bld) [Entitic vol]7.8 fLNormal7-12 [facility] SystemComment on above:Performed By: #### AMYL #### [facility] ([facility]) [address] [place] [address] VIRPlatelets (Bld) [#/Vol]284 10*3/qPUkyrvt373-942MacBcftpa [place] HospitalComment on above:Performed By: #### AMYL #### [facility] ([facility]) [address] [place] [address] VIRRBC COUNT3.92 X10E12/LLow4.1-5.7[facility] Comment on above:Performed By: #### AMYL #### [facility] ([facility]) [address] [place] [address] VIRWBC (Bld) [#/Vol]9.8 10*3/uLNormal4-11[facility] Health SystemComment on above:Performed By: #### AMYL #### [facility] ([facility]) [address] [place] [address] VIRCBC auto differentialon 19-45-4780Xptlupuyf (Bld) [#/Vol]0.1 10*3/uL0.0 - 0.2 10*3/uLSelect Medical Specialty Hospital - Cincinnati NorthBasophils/100 WBC (Bld)0.8 % [facility] NorthDifferential cell count method Nom (Bld)AUTOMATED DIFFERENTIALSelect Medical Specialty Hospital - Cincinnati NorthEosinophils (Bld) [#/Vol]0.4 10*3/uL0.0 - 0.4 10*3/uLSelect Medical Specialty Hospital - Cincinnati NorthEosinophils/100 WBC (Bld)4.4 %[facility] NorthErythrocyte distribution width (RBC) [Ratio]13.4 %11.5 - 15 %[facility] NorthHematocrit (Bld) [Volume fraction]36.4 %Low39 - 50 %[facility] NorthHemoglobin (Bld) [Mass/Vol]12 g/dLLow13 - 17 g/dLSelect Medical Specialty Hospital - Cincinnati NorthInterpretation and review of laboratory resultsAbnormalSelect Medical Specialty Hospital - Cincinnati NorthLymphocytes (Bld) [#/Vol]1.2 10*3/uL1.0 - 3.5 10*3/uLSelect Medical Specialty Hospital - Cincinnati NorthLymphocytes/100 WBC (Bld)12 %[facility] (RBC) [Entitic mass]30.6 pg27 - 34 [facility] HospitalHC (RBC) [Mass/Vol]32.9 g/dL32 - 36 g/dLSelect Medical Specialty Hospital - Cincinnati NorthMCV (RBC) [Entitic vol]93 fL80 - 100 [facility] SystemMonocytes (Bld) [#/Vol]1 10*3/uLHigh0.0 - 0.9 10*3/uLProMercy Health St. Anne Hospital SystemMonocytes/100 WBC (Bld)10.2 %[facility] SystemNeutrophils (Bld) [#/Vol]7.1 10*3/uLHigh1.5 - 6.6 10*3/uLPaulding County Hospital System Neutrophils/100 WBC (Bld)72.6 %[facility] SystemPlatelet mean volume (Bld) [Entitic vol]7.8 fL7 - 12 [facility] SystemPlatelets (Bld) [#/Vol]284 10*3/uLProMercy Health St. Anne Hospital SystemRBC (Bld) [#/Vol]3.92 10*6/uLLowPaulding County Hospital SystemWBC LM Ql (Sput)9.8[facility] SystemCNPNon [id number] (NCCAP) KATYDOC FISHER ([id number]) 1950 M Date Time Provider Department 04/22/25 LINETTE BAI NCCAP During your visit today, we recorded the following information about you: Nuris Nunez 04/22/2025 3:18 PM Signed Doc Katy is calling today regarding Currently in hospital from a fall down some stairs. Has multiple broken bones, and a bleed in his lung. He is at [facility] in [place]. Patient is in room 226, can call [phone] Canceling CT but keeping Dr. Fam appointment. Patient has been identified by name and birthdate. Person calling: SisterMaria Teresa Please return the call at [phone] Gale Walden 04/22/2025 3:36 PM Signed Care everywhere updated. Allergies As of Date: 04/22/2025 (No Known Allergies) Date Reviewed: 02/06/2025 Reviewed by: Jane Gilmore MA - Fully Assessed Reason for Visit: Patient Update [1234] Prescriptions as of 04/29/2025 - sertraline (ZOLOFT) 50 mg tablet Take 50 mg by mouth once daily. - Cyanocobalamin-Cobamamide (B-12 PLUS) 5,000-100 mcg subl Dissolve [...] by mouth once daily. - nitroglycerin sublingual (NITROQUICK (more content not included)...Normal [facility] ClevelandGas panel (BldA)on 96-70-8255Fumucwau patency Wrist artery --pre arterial puncturePassPaulding County Hospital SystemBase excess Calc (Bld) [Moles/Vol]2 mmol/L0.0 - 2.0 mmol/LProMedveterans affairs medical center-tuscaloosa Health SystemCO2 (Bld) [Partial pressure]41.4 mm[Hg][facility] NorthHCO3 (Bld) [Moles/Vol]27.2 mmol/LHigh 22.0 - 26.0 mmol/LPrLakeland Regional Hospitalica [facility] SystemInterpretation and review of laboratory resultsAbnormalDelaware County Hospital Health SystemOxygen (Bld) [Partial pressure]67 mm[Hg] LowProMercy Health St. Anne Hospital SystemOxygen therapy source and amount [CARE]VTMProMedveterans affairs medical center-tuscaloosa Health SystemOxygen/Inspired gas setting [Volume Fraction] Xpqgtixrph75 % [facility] NorthpH (Bld)7.425 [pH]7.350 - 7.450[facility] Specimen site NarrativeL RadMission Family Health Centerpecimen type Nom (Spec) ARTERIALAscension St. Luke's Sleep Center SystemPOTASSIUMon 04-22-2025 Potassium [Moles/Vol]3.7 mmol/LNormal3.5-5.0[facility] SystemComment on above:Performed By: #### LIPA #### [facility] ([facility]) [address] [place] [address] VIRPotassium [Moles/Vol]3.7 mmol/LNormal3.5-5.0[facility] SystemComment on above:Performed By: #### LIPA #### [facility] ([facility]) [address] [place] [address] VIRPotassiumon [id number] and review of laboratory resultsNormTrinity Health SystemPotassium [Moles/Vol]3.7 mmol/L 3.5 - 5.0 mmol/LPrLakeland Regional Hospitalica [facility] SystemPaulding County Hospital SystemInterpretation and review of laboratory resultsNormTrinity Health SystemPotassium [Moles/Vol] 3.7 mmol/L3.5 - 5.0 mmol/LPrLakeland Regional Hospitalica [facility] SystemPaulding County Hospital SystemXR Chest Single viewon [id number] Health SystemRadiology Study observation (narrative)[facility] NorthXR Chest Single viewOrdered By: Isauro Pendleton on [id number] Medical Specialty Hospital - [facility] North Work Phone: BASIC METABOLIC PANELon 20-71-6549Otaqa gap [Moles/Vol]9 mmol/LNormal5-15ProSouthwest General Health Center HospitalComment on above:Performed By: #### AMYL #### [facility] ([facility]) [address] [place] [address] VIRCalcium [Mass/Vol]8.6 mg/dLNormal8.5-10.5PMercy Health St. Charles HospitalComment on above:Performed By: #### AMYL #### [facility] ([facility]) [address] [place] [address] VIRChloride [Moles/Vol]107 mmol/CUcmtuc12-368OktJxgevz [place] HospitalComment on above:Performed By: #### AMYL #### [facility] ([facility]) [address] [place] [address] VIRCO2 [Moles/Vol]29 mmol/YMlvztr50-16JxqGxcaveMercy Health St. Charles Hospital Comment on above:Performed By: #### AMYL #### [facility] ([facility]) [address] [place] [address] VIRCreatinine [Mass/Vol]1.00 mg/dLNormal0.60-1.30ProUniversity Hospitals Health SystemComment on above:Result Comment: METHOD TRACEABLE TO IDMS STANDARDPerformed By: #### AMYL #### [facility] ([facility]) [address] [place] [address] VIRGFR/1.73 sq M.predicted among non-blacks MDRD (S/P/Bld) [Vol rate/Area]79 mL/min/{1.73_m2}Normal>=60ProUniversity Hospitals Health SystemComment on above:Result Comment: Reported eGFR is based on the CKD-EPI 2020 equation that does not use a race coefficient.Performed By: #### AMYL #### [facility] ([facility]) [address] [place] [address] VIRGlucose [Mass/Vol]82 mg/sHUxcoel17-51KznJhacor [place] HospitalComment on above:Performed By: #### AMYL #### [facility] ([facility]) [address] [place] [address] VIRPotassium [Moles/Vol]3.5 mmol/LNormal3.5-5.0ProSouthwest General Health Center HospitalComment on above:Performed By: #### AMYL #### [facility] ([facility]) [address] [place] [address] VIRSodium [Moles/Vol]145 mmol/TCvqpwg189-534JddRkghnh [place] HospitalComment on above:Performed By: #### AMYL #### [facility] ([facility]) [address] [place] [address] VIRUrea nitrogen [Mass/Vol]21 mg/dLNormal5-27ProSouthwest General Health Center HospitalComment on above:Performed By: #### AMYL #### [facility] ([facility]) [address] [place] [address] VIRBasic Metabolic Panelon 83-29-2026Sajzq gap [Moles/Vol]9 mmol/L5 - 15 mmol/LProMedica Health SystemCalcium [Mass/Vol]8.6 mg/dL8.5 - 10.5 mg/dLProMedica Health SystemChloride [Moles/Vol]107 mmol/L98 - 109 mmol/L Pro[facility]ic Health SystemCO2 [Moles/Vol]29 mmol/L22 - 32 mmol/LProMedica Health SystemCreatinine [Mass/Vol]1 mg/dL0.60 - 1.30 mg/dLProMedica Health SystemEGFR Non-Race Urcgizcbe20- PINFProMedica Health SystemGlucose [Mass/Vol]82 mg/dL65 - 99 mg/dLPaulding County Hospital SystemInterpretation and review of laboratory results NormalProMedica Health SystemPotassium [Moles/Vol]3.5 mmol/L3.5 - 5.0 mmol/L [facility] Health SystemSodium [Moles/Vol]145 mmol/L134 - 146 mmol/LProMedica Henry [facility] Macomb HospitalUrea nitrogen [Mass/Vol]21 mg/dL5 - 27 mg/dLJefferson HospitalCBC WITH AUTO DIFFERENTIALon 46-30-2007Lsrm form neutrophils/100 WBC (Bld)1 %NormalProUniversity Hospitals Health SystemCommclaren bay special care hospital on above: Result Comment: This is an appended report. These results have been appended to a previously preliminary verified report.Performed By: #### AMYL #### [facility] ([facility]) [address] [place] [address] VIRCELLAVISION BASOPHILS ABSOLUTE COUNT (10*3/UL) BY MANUAL COUNT0.1 10*3/uLNormal0.0-0.2PMercy Health St. Charles HospitalCommclaren bay special care hospital on above:Result Comment: This is an appended report. These results have been appended to a previously preliminary verified report.Performed By: #### AMYL #### [facility] ([facility]) [address] [place] [address] VIRCELLAVISION BASOPHILS RELATIVE PERCENT BY MANUAL COUNT1 % NormalProUniversity Hospitals Health SystemCommclaren bay special care hospital on above:Result Comment: This is an appended report. These results have been appended to a previously preliminary verified report.Performed By: #### AMYL #### [facility] ([facility]) [address] [place] [address] VIRCELLAVISION DIFFERENTIAL TYPEMANUAL DIFFERENTIALNormal [facility] Health SystemComment on above:Result Comment: This is an appended report. These results have been appended to a previously preliminary verified report.Performed By: #### AMYL #### [facility] [facility] ([facility]) [address] [place] [address] VIRCELLAVISION EOSINOPHILS ABSOLUTE COUNT (10*3/UL) BY MANUAL COUNT0.4 10*3/uLNormal0.0-0.4[facility] SystemCommclaren bay special care hospital on above:Result Comment: This is an appended report. These results have been appended to a previously preliminary verified report.Performed By: #### AMYL #### [facility] ([facility]) [address] [place] [address] VIRCELLAVISION EOSINOPHILS PERCENT BY MANUAL COUNT4 %Normal [facility]land HospitalComment on above:Result Comment: This is an appended report. These results have been appended to a previously preliminary verified report.Performed By: #### AMYL #### [facility] ([facility]) [address] [place] [address] VIRCELLAVISION LYMPHOCYTES ABSOLUTE COUNT (10*3/UL) BY MANUAL COUNT1.4 10*3/uLNormal1.0-3.5Pro[facility] Goochland HospitalComment on above:Result Comment: This is an appended report. These results have been appended to a previously preliminary verified report.Performed By: #### AMYL #### [facility] ([facility]) [address] [place] [address] VIRCELLAVISION LYMPHOCYTES RELATIVE PERCENT BY MANUAL COUNT16 % NormalProSouthwest General Health Center HospitalComment on above:Result Comment: This is an appended report. These results have been appended to a previously preliminary verified report.Performed By: #### AMYL #### [facility] ([facility]) [address] [place] [address] VIRCELLAVISION METAMYELOCYTES RELATIVE PERCENT BY MANUAL COUNT1 %NormalProSouthwest General Health Center HospitalComment on above:Result Comment: This is an appended report. These results have been appended to a previously preliminary verified report.Performed By: #### AMYL #### [facility] ([facility]) [address] [place] [address] VIRCELLAVISION MONOCYTES ABSOLUTE COUNT (10*3/UL) IN BLOOD BY MANUAL COUNT0.9 10*3/uLNormal0.0-0.9[facility]chland HospitalComment on above: Result Comment: This is an appended report. These results have been appended to a previously preliminary verified report.Performed By: #### AMYL #### [facility] ([facility]) [address] [place] [address] VIRCELLAVISION MONOCYTES RELATIVE PERCENT BY MANUAL COUNT10 % NormalProMedica Kaur HospitalComment on above:Result Comment: This is an appended report. These results have been appended to a previously preliminary verified report.Performed By: #### AMYL #### [facility] ([facility]) [address] [place] [address] VIRCELLAVISION MYELOCYTE RELATIVE PERCENT BY MANUAL COUNT1 % NormalProMedica Kaur HospitalComment on above:Result Comment: This is an appended report. These results have been appended to a previously preliminary verified report.Performed By: #### AMYL #### [facility] ([facility]) [address] [place] [address] VIRCELLAVISION NEUTROPHILS ABSOLUTE COUNT BY MANUAL COUNT6.0 10*3/uLNormal1.5-6.6ProMedica Kaur HospitalComment on above:Result Comment: This is an appended report. These results have been appended to a previously preliminary verified report.Performed By: #### AMYL #### [facility] ([facility]) [address] [place] [address] VIRCELLAVISION NEUTROPHILS RELATIVE PERCENT BY MANUAL COUNT66 % NormalProMedica Goochland HospitalComment on above:Result Comment: This is an appended report. These results have been appended to a previously preliminary verified report.Performed By: #### AMYL #### [facility] ([facility]) [address] [place] [address] VIRCELLAVISION RBC MORPHOLOGYNormalNormalProMedica Goochland HospitalComment on above:Result Comment: This is an appended report. These results have been appended to a previously preliminary verified report.Performed By: #### AMYL #### [facility] ([facility]) [address] [place] [address] VIRErythrocyte distribution width (RBC) [Ratio]13.2 %Normal 11.5-15Pro[facility] Kaur HospitalComment on above:Performed By: #### AMYL #### [facility] ([facility]) [address] [place] [address] VIRHematocrit (Bld) [Volume fraction]35.1 %Ccw77-31TxtHtzgww Kaur HospitalComment on above:Performed By: #### AMYL #### [facility] ([facility]) [address] [place] [address] VIRHemoglobin (Bld) [Mass/Vol]11.8 g/kMXyu34-97NqvLukykj Kaur HospitalComment on above:Performed By: #### AMYL #### [facility] ([facility]) [address] [place] [address] VIRMCH (RBC) [Entitic mass]31.1 obVkvwyu21-78HbeYzotfy Kaur HospitalComment on above:Performed By: #### AMYL #### [facility] ([facility]) [address] [place] [address] VIRMCHC (RBC) [Mass/Vol]33.8 g/bSRhfrin42-69ZrtHluhuh Kaur HospitalComment on above:Performed By: #### AMYL #### [facility] ([facility]) [address] [place] [address] VIRMCV (RBC) [Entitic vol]92 oTSmvzkp70-857IxrKpwuxs Kaur HospitalComment on above:Performed By: #### AMYL #### [facility] ([facility]) [address] [place] [address] VIRPlatelet mean volume (Bld) [Entitic vol]7.6 fLNormal7-12 [facility] Kaur HospitalComment on above:Performed By: #### AMYL #### [facility] ([facility]) [address] [place] [address] VIRPlatelets (Bld) [#/Vol]262 10*3/eKWlbxct843-380SwsNyxasc Kaur HospitalComment on above:Performed By: #### AMYL #### [facility] ([facility]) [address] [place] [address] VIRRBC COUNT3.81 X10E12/LLow4.1-5.7[facility] Comment on above:Performed By: #### AMYL #### [facility] ([facility]) [address] [place] [address] VIRWBC (Bld) [#/Vol]9.0 10*3/uLNormal4-11[facility] Health SystemComment on above:Performed By: #### AMYL #### [facility] ([facility]) [address] [place] [address] VIRCBC auto differentialon [id number] form neutrophils/100 WBC (Bld)1 %[facility] NorthBasophils (Bld) [#/Vol]0.1 10*3/uL0.0 - 0.2 10*3/uLSelect Medical Specialty Hospital - Cincinnati NorthBasophils/100 WBC (Bld)1 %[facility] Differential cell count method Nom (Bld)MANUAL DIFFERENTIALSelect Medical Specialty Hospital - Cincinnati NorthEosinophils (Bld) [#/Vol]0.4 10*3/uL0.0 - 0.4 10*3/[facility] CenterEosinophils/100 WBC (Bld)4 %[facility] NorthErythrocyte distribution width (RBC) [Ratio]13.2 %11.5 - 15 %[facility] Hematocrit (Bld) [Volume fraction]35.1 %Low39 - 50 %[facility] Hemoglobin (Bld) [Mass/Vol]11.8 g/dLLow13 - 17 g/dLSelect Medical Specialty Hospital - [place] North Interpretation and review of laboratory resultsAbnoUNC Health Lymphocytes (Bld) [#/Vol]1.4 10*3/uL1.0 - 3.5 10*3/uLSelect Medical Specialty Hospital - Cincinnati NorthMCH (RBC) [Entitic mass]31.1 pg27 - 34 [facility] HospitalMCHC (RBC) [Mass/Vol]33.8 g/dL32 - 36 g/dLSelect Medical Specialty Hospital - Cincinnati NorthMCV (RBC) [Entitic vol]92 fL80 - 100 [facility] HospitalMetamyelocytes/100 WBC (Bld)1 %[facility] NorthMonocytes (Bld) [#/Vol]0.9 10*3/uL0.0 - 0.9 10*3/uLPaulding County Hospital SystemMonocytes/100 WBC (Bld)10 %[facility] NorthMyelocytes/100 WBC (Bld)1 %[facility] NorthNeutrophils (Bld) [#/Vol]6 10*3/uL1.5 - 6.6 10*3/uLSelect Medical Specialty Hospital - Cincinnati NorthNeutrophils/100 WBC (Bld)66 %[facility] NorthPlatelet mean volume (Bld) [Entitic vol]7.6 fL7 - 12 [facility] HospitalPlatelets (Bld) [#/Vol]262 10*3/uLSelect Medical Specialty Hospital - Cincinnati NorthRBC (Bld) [#/Vol] 3.81 10*6/uLLowSelect Medical Specialty Hospital - Cincinnati NorthRBC (Bld) [#/Vol]NormalSelect Medical Specialty Hospital - [facility] NorthVariant lymphocytes/100 WBC (Bld)16 %[facility] NorthWBC LM Ql (Sput)9[facility] HospitalXR CHEST 1 VWon 04-21-2025 XR CHEST 1 VWXR CHEST 1 VW CHEST 1 VIEW HISTORY: Rib fracture, hemothorax COMPARISON: 04/20/2025 FINDINGS: No definitive pneumothorax. Airspace opacities in the left lung are unchanged. Status post sternotomy. No pleural effusions. IMPRESSION: No significant interval change. Finalized by Car Werner MD on 04/21/2025 5:12 [facility] ColumbusXR Chest Single viewon [id number] Health System Radiology Study observation (narrative)[facility] NorthXR Chest Single viewOrdered By: Car Werner on [id number] Medical Specialty Hospital - [facility] North Work Phone: BASIC METABOLIC PANELon 65-79-6438Oolyl gap [Moles/Vol]11 mmol/LNormal5-15[facility] NorthComment on above:Performed By: #### AMYL #### [facility] ([facility]) [address] [place] [address] VIRCalcium [Mass/Vol]8.8 mg/dLNormal8.5-10.5PTuscarawas Hospital SystemComment on above:Performed By: #### AMYL #### [facility] ([facility]) [address] [place] [address] VIRChloride [Moles/Vol]107 mmol/TDrxyts62-478NxkXkqiyy Health SystemComment on above:Performed By: #### AMYL #### [facility] ([facility]) [address] [place] [address] VIRCO2 [Moles/Vol]24 mmol/VGatege57-16ZliHwjwut Health System Comment on above:Performed By: #### AMYL #### [facility] ([facility]) [address] [place] [address] VIRCreatinine [Mass/Vol]0.91 mg/dLNormal0.60-1.30ProMercy Health St. Anne Hospital SystemComment on above:Result Comment: METHOD TRACEABLE TO IDMS STANDARD Performed By: #### AMYL #### [facility] ([facility]) [address] [place] [address] VIRGlucose [Mass/Vol]97 mg/qABceqws97-18RamAhfycu Health System Comment on above:Performed By: #### AMYL #### [facility] ([facility]) [address] [place] [address] VIRSodium [Moles/Vol]142 mmol/AUkehcn250-318ZqxFnebkq Health SystemComment on above:Performed By: #### AMYL #### [facility] ([facility]) [address] [place] [address] VIRUrea nitrogen [Mass/Vol]21 mg/dLNormal5-27ProMercy Health St. Anne Hospital SystemComment on above:Performed By: #### AMYL #### [facility] ([facility]) [address] [place] [address] VIRGFR/1.73 sq M.predicted among non-blacks MDRD (S/P/Bld) [Vol rate/Area]88 mL/min/{1.73_m2}Normal>=60Pro[facility]chland HospitalComment on above:Result Comment: Reported eGFR is based on the CKD-EPI 2020 equation that does not use a race coefficient.Performed By: #### AMYL #### [facility] ([facility]) [address] [place] [address] VIRPotassium [Moles/Vol]4.0 mmol/LNormal3.5-5.0ProKettering Healthca Goochland HospitalComment on above:Performed By: #### AMYL #### [facility] ([facility]) [address] [place] [address] VIRBLOOD GAS, ARTERIALon 10-75-7801TMLV,DEFICIT-1.0 mmol/LLow 0.0-2.0ProSouthwest General Health Center HospitalComment on above:Performed By: #### AMYL #### [facility] ([facility]) [address] [place] [address] VIRHCO3 (Bld) [Moles/Vol]24.5 mmol/ZFnvfni84.0-26.0ProSouthwest General Health Center HospitalComment on above:Performed By: #### AMYL #### [facility] ([facility]) [address] [place] [address] VIRINSP. O2 CONC.35 %NormalProSouthwest General Health Center HospitalComment on above:Performed By: #### AMYL #### [facility] ([facility]) [address] [place] [address] VIROxygen saturation in Blood87.0 %Low>90.0ProKettering Healthca Goochland HospitalComment on above:Performed By: #### AMYL #### [facility] ([facility]) [address] [place] [address] VIRPCO2 SIGOSVPI01.6 luTaMscorg84.0-45.0ProKettering HealthSouthwest General Health Center HospitalComment on above:Performed By: #### AMYL #### [facility] ([facility]) [address] [place] [address] VIRPH ARTERIAL7.668Ukjprq1.350-7.450ProUniversity Hospitals Health System Comment on above:Performed By: #### AMYL #### [facility] ([facility]) [address] [place] [address] VIRPO2 WFOCJUZG69 leDbQxq45-586ZbkOpmzbs Toledo HospitalComment on above:Performed By: #### AMYL #### [facility] ([facility]) [address] [place] [address] VIRPOC IZABEL'S TESTPassNormalProKettering Healthca Goochland HospitalComment on above:Performed By: #### AMYL #### [facility] ([facility]) [address] [place] [address] VIRSAMPLE SITEL RadNormalProKettering Healthca Goochland HospitalComment on above:Performed By: #### AMYL #### [facility] ([facility]) [address] [place] [address] VIRSAMPLE TYPEARTERIALNormalProSouthwest General Health Center HospitalComment on above:Performed By: #### AMYL #### [facility] ([facility]) [address] [place] [address] VIRSOURCE OF OXYGENNCNormalProMedica Goochland HospitalComment on above:Performed By: #### AMYL #### [facility] ([facility]) [address] [place] [address] VIRBasic Metabolic Panelon [id number] Non-Race Irw[address] [place], [place] [address]Interpretation and review of laboratory results NormalSelect Medical Specialty Hospital - [facility] NorthPotassium [Moles/Vol]4 mmol/L3.5 - 5.0 mmol/L [facility] HospitalProWyandot Memorial HospitalCBC WITH AUTO DIFFERENTIALon [id number] distribution width (RBC) [Ratio]13.5 %Btfpzy03.5-15 [facility] SystemComment on above:Performed By: #### CMP #### [facility] ([facility]) [address] [place] [address] VIRHematocrit (Bld) [Volume fraction]35.9 %Puc14-96FslMvuwrp Health SystemComment on above:Performed By: #### CMP #### [facility] ([facility]) [address] [place] [address] VIRHemoglobin (Bld) [Mass/Vol]12.3 g/sTRst56-52WapJhokjg Health SystemComment on above:Performed By: #### CMP #### [facility] ([facility]) [address] [place] [address] VIRMCH (RBC) [Entitic mass]31.5 qtHwwovi26-76CmhYeiipf Health SystemComment on above:Performed By: #### CMP #### [facility] ([facility]) [address] [place] [address] VIRMCHC (RBC) [Mass/Vol]34.3 g/vONpxycb36-37FqjIomxhx Health SystemComment on above:Performed By: #### CMP #### [facility] ([facility]) [address] [place] [address] VIRMCV (RBC) [Entitic vol]92 tKVojanm65-398SumGrsdoq Health SystemComment on above:Performed By: #### CMP #### [facility] ([facility]) [address] [place] [address] VIRPlatelet mean volume (Bld) [Entitic vol]7.5 fLNormal7-12 [facility] SystemComment on above:Performed By: #### CMP #### [facility] ([facility]) [address] [place] [address] VIRPlatelets (Bld) [#/Vol]247 10*3/xNZnzjjw981-949JqvCzbnrc Health SystemComment on above:Performed By: #### CMP #### [facility] ([facility]) [address] [place] [address] VIRCELLAVISION DIFFERENTIAL TYPEMANUAL DIFFERENTIALNormal [facility] HospitalComment on above:Result Comment: This is an appended report. These results have been appended to a previously preliminary verified report.Performed By: #### CMP #### [facility] ([facility]) [address] [place] [address] VIRCELLAVISION LYMPHOCYTES ABSOLUTE COUNT (10*3/UL) BY MANUAL COUNT0.7 10*3/uLLow1.0-3.5[facility] HospitalCommclaren bay special care hospital on above:Result Comment: This is an appended report. These results have been appended to a previously preliminary verified report.Performed By: #### CMP #### [facility] ([facility]) [address] [place] [address] VIRCELLAVISION LYMPHOCYTES RELATIVE PERCENT BY MANUAL COUNT7 % NormalProUniversity Hospitals Health SystemComment on above:Result Comment: This is an appended report. These results have been appended to a previously preliminary verified report.Performed By: #### CMP #### [facility] ([facility]) [address] [place] [address] VIRCELLAVISION MONOCYTES ABSOLUTE COUNT (10*3/UL) IN BLOOD BY MANUAL COUNT0.8 10*3/uLNormal0.0-0.9ProKettering Healthca [facility] Marion General HospitalComment on above: Result Comment: This is an appended report. These results have been appended to a previously preliminary verified report.Performed By: #### CMP #### [facility] ([facility]) [address] [place] [address] VIRCELLAVISION MONOCYTES RELATIVE PERCENT BY MANUAL COUNT9 % NormalProUniversity Hospitals Health SystemCommclaren bay special care hospital on above:Result Comment: This is an appended report. These results have been appended to a previously preliminary verified report.Performed By: #### CMP #### [facility] ([facility]) [address] [place] [address] VIRCELLAVISION NEUTROPHILS ABSOLUTE COUNT BY MANUAL COUNT7.9 10*3/uLHigh1.5-6.6Avita Health SystemComment on above:Result Comment: This is an appended report. These results have been appended to a previously prelimi nary verified report.Performed By: #### CMP #### [facility] ([facility]) [address] [place] [address] VIRCELLAVISION NEUTROPHILS RELATIVE PERCENT BY MANUAL COUNT84 % NormalProUniversity Hospitals Health SystemComment on above:Result Comment: This is an appended report. These results have been appended to a previously preliminary verified report.Performed By: #### CMP #### [facility] ([facility]) [address] [place] [address] VIRCELLAVISION RBC MORPHOLOGYNormalNormalProUniversity Hospitals Health SystemCommclaren bay special care hospital on above:Result Comment: This is an appended report. These results have been appended to a previously preliminary verified report.Performed By: #### CMP #### [facility] ([facility]) [address] [place] [address] VIRRBC COUNT3.91 X10E12/LLow4.1-5.7[facility] Comment on above:Performed By: #### CMP #### [facility] ([facility]) [address] [place] [address] VIRWBC (Bld) [#/Vol]9.4 10*3/uLNormal4-11ProUniversity Hospitals Health SystemComment on above:Performed By: #### CMP #### [facility] ([facility]) [address] [place] [address] VIRCBC auto differentialon 01-01-6869Ztugdiwogepm cell count method Nom (Bld)MANUAL DIFFERENTIALSelect Medical Specialty Hospital - Cincinnati NorthInterpretation and review of laboratory resultsAbnoUNC HealthLymphocytes (Bld) [#/Vol]0.7 10*3/uLLow1.0 - 3.5 10*3/uLProMedica Health SystemMonocytes (Bld) [#/Vol]0.8 10*3/uL0.0 - 0.9 10*3/uLProMercy Health St. Anne Hospital SystemMonocytes/100 WBC (Bld)9 %[facility] SystemNeutrophils (Bld) [#/Vol]7.9 10*3/uLHigh1.5 - 6.6 10*3/uLProMediUniversity Hospitals Geauga Medical Center SystemNeutrophils/100 WBC (Bld)84 %[facility] SystemRBC (Bld) [#/Vol]3.91 10*6/uLLowProLakeland Community Hospital Health SystemRBC (Bld) [#/Vol] NormalProMercy Health St. Anne Hospital SystemVariant lymphocytes/100 WBC (Bld)7 %[facility] SystemWBC LM Ql (Sput)9.4ProHaven Behavioral HealthcareFL SWALLOW MOTILITY FUNCTIONon [id number] SWALLOW MOTILITY FUNCTIONFL SWALLOW MOTILITY FUNCTION STUDY: Video fluoroscopic swallow study CLINICAL HISTORY: Oral pharyngeal dysphagia, difficulty swallowing COMPARISON: None. FINDINGS: Video fluoroscopic swallow study was performed in conjunction with members of speech pathology. Barium contrast materials of multiple consistencies were administered. Fluoroscopic reference air kermawas 1.3 mGy. Multiple video fluoroscopic images. Zero fluoroscopic spot films. 7 cine runs are saved. Fluoroscopy time is 1 minute Flash intermittent penetration noted with thin consistency. No penetration or aspiration with pureed, soft and bite size, or regular consistencies. Correlate with dedicated speech pathology report for additional details and recommendations. IMPRESSION: 1. Abnormal swallow study, as above. Approved by Resident Krzysztof Sim MD on 04/20/2025 1:45 PM I, Sylvie Breaux MD have personally reviewed the image(s) and agree with and/or edited the report Finalized by Sylvie Breaux MD on 04/20/2025 2:06 PMNormalProLicking Memorial Hospital panel (BldA)on 51-61-1170Jwctyjnj patency Wrist artery --pre arterial puncturePassPaulding County Hospital SystemBase deficit (Bld) [Moles/Vol]-1 mmol/LLow0.0 - 2.0 mmol/LProMedica Health SystemCO2 (Bld) [Partial pressure]40.6 mm[Hg][facility] NorthHCO3 (Bld) [Moles/Vol]24.5 mmol/L22.0 - 26.0 mmol/L [facility] NorthInterpretation and review of laboratory resultsAbnormal [facility] NorthOxygen (Bld) [Partial pressure]53 mm[Hg]LowProWyandot Memorial HospitalOxygen therapy source and amount [CARE]NCSelect Medical Specialty [facility] Oxygen/Inspired gas setting [Volume Fraction] Sqsxipjiza91 %[facility] NorthpH (Bld)7.388 [pH]7.350 - 7.450M[facility] Centerpecimen site NarrativeL RadFormerly [facility] type Nom (Spec)ARTERIALMagee Rehabilitation HospitalRF videography Hypopharynx and Esophagus Viewson [id number] Health SystemRadiology Study observation (narrative)[facility] videography Hypopharynx and Esophagus Views Ordered By: Sylvie Breaux on 57-03-3071MffFrrgcySelect Medical Specialty Hospital - [facility] Work Phone: XR CHEST 1 VWon [id number] CHEST 1 VWXR CHEST 1 VW Single view chest History: Difficulty breathing, shortness of breath Comparison: 04/19/2025 Impression: Persistent asymmetric multifocal pulmonary parenchymal opacities throughout the left lung, possibleasymmetric edema, infection or aspiration. No new or growing pulmonary parenchymal opacity. Low lung volumes and hypoventilatory change. Sternotomy, cardiac valve prosthesis. Left atrial appendage closure device. Nonenlarged heart. Finalized by Keny Jimenez MD on 04/20/2025 5:02 AMNormalAvita Health SystemXR Chest Single viewon [id number]sion Northeast Wisconsin St. Elizabeth HospitalRadiology Study observation (narrative)[facility] NorthBASIC METABOLIC PANELon 81-22-3584Gfgsa gap [Moles/Vol]9 mmol/LNormal5-15 [facility] Health SystemComment on above:Performed By: #### CMP #### [facility] (TT) [address] [place] [address] VIRCalcium [Mass/Vol]9.3 mg/dLNormal8.5-10.5PMercy Health St. Charles HospitalComment on above:Performed By: #### CMP #### [facility] ([facility]) [address] [place] [address] VIRChloride [Moles/Vol]105 mmol/AXplvno06-420OkpVrawdw [place] HospitalComment on above:Performed By: #### CMP #### [facility] ([facility]) [address] [place] [address] VIRCO2 [Moles/Vol]27 mmol/FTithxl35-25YbzMqcjoyMercy Health St. [facility] Comment on above:Performed By: #### CMP #### [facility] ([facility]) [address] [place] [address] VIRCreatinine [Mass/Vol]0.91 mg/dLNormal0.60-1.30ProUniversity Hospitals Health SystemComment on above:Result Comment: METHOD TRACEABLE TO IDMS STANDARDPerformed By: #### CMP #### [facility] ([facility]) [address] [place] [address] VIRGFR/1.73 sq M.predicted among non-blacks MDRD (S/P/Bld) [Vol rate/Area]88 mL/min/{1.73_m2}Normal>=60ProUniversity Hospitals Health SystemComment on above:Result Comment: Reported eGFR is based on the CKD-EPI 2020 equation that does not use a race coefficient.Performed By: #### CMP #### [facility] ([facility]) [address] [place] [address] VIRGlucose [Mass/Vol]92 mg/aORvowpn19-84YaoLfuisw [place] HospitalComment on above:Performed By: #### CMP #### [facility] ([facility]) [address] [place] [address] VIRPotassium [Moles/Vol]3.8 mmol/LNormal3.5-5.0ProMedica Kaur HospitalComment on above:Performed By: #### CMP #### [facility] ([facility]) [address] [place] [address] VIRSodium [Moles/Vol]141 mmol/SLqlmmv854-805HmbDuexgf Kaur HospitalComment on above:Performed By: #### CMP #### [facility] ([facility]) [address] [place] [address] VIRUrea nitrogen [Mass/Vol]22 mg/dLNormal5-27ProMedica Goochland HospitalComment on above:Performed By: #### CMP #### [facility] ([facility]) [address] [place] [address] VIRBLOOD GAS, ARTERIALon 83-22-0159SFZZ,EXCESS1.0 mmol/LNormal 0.0-2.0ProMedica Kaur HospitalComment on above:Performed By: #### CMP #### [facility] ([facility]) [address] [place] [address] VIRHCO3 (Bld) [Moles/Vol]26.9 mmol/LHigh22.0-26.0ProKettering Healthca Goochland HospitalComment on above:Performed By: #### CMP #### [facility] ([facility]) [address] [place] [address] VIRINSP. O2 CONC.60 %NormalProMedica Goochland HospitalComment on above:Performed By: #### CMP #### [facility] ([facility]) [address] [place] [address] VIROxygen saturation in Blood96.0 %Normal>90.0ProMedica Kaur HospitalComment on above:Performed By: #### CMP #### [facility] ([facility]) [address] [place] [address] VIRPCO2 TESLZRJS66.6 nsNsOpjf58.0-45.0Pro[facility] Comment on above:Performed By: #### CMP #### [facility] ([facility]) [address] [place] [address] VIRPH ARTERIAL7.750Rtddxq8.350-7.450[facility] Comment on above:Performed By: #### CMP #### [facility] ([facility]) [address] [place] [address] VIRPO2 AAXYCELD51 skIrLiwgqx90-764BzbHemldv [facility] Comment on above:Performed By: #### CMP #### [facility] ([facility]) [address] [place] [address] VIRPOC IZABEL'S TESTN/ANormalProKettering Healthca Ohiohealth Marion General HospitalComment on above:Performed By: #### CMP #### [facility] ([facility]) [address] [place] [address] VIRSAMPLE SITEL RadNormalProUniversity Hospitals Health SystemComment on above:Performed By: #### CMP #### [facility] ([facility]) [address] [place] [address] VIRSAMPLE TYPEARTERIALNormalAvita Health SystemComment on above:Performed By: #### CMP #### [facility] ([facility]) [address] [place] [address] VIRSOURCE OF OXYGENNCNormalProKettering Healthca Ohiohealth Marion General HospitalComment on above:Performed By: #### CMP #### [facility] ([facility]) [address] [place] [address] VIRBasic Metabolic Panelon 15-99-2093Vtaif gap [Moles/Vol]9 mmol/L5 - 15 mmol/LProMedica Health SystemCalcium [Mass/Vol]9.3 mg/dL8.5 - 10.5 mg/dLProMedica Health SystemChloride [Moles/Vol]105 mmol/L98 - 109 mmol/L ProMedica Health SystemCO2 [Moles/Vol]27 mmol/L22 - 32 mmol/LProMedica Health SystemCreatinine [Mass/Vol]0.91 mg/dL0.60 - 1.30 mg/dLSelect Medical Specialty Hospital [facility] EGFR Non-Race Hvnpmntqi98- PINFPTuscarawas Hospital SystemGlucose [Mass/Vol]92 mg/dL 65 - 99 mg/dLSelect Medical Specialty Hospital - [facility] NorthInterpretation and review of laboratory resultsNormalSelect Medical Specialty Hospital - [facility] NorthPotassium [Moles/Vol]3.8 mmol/L3.5 - 5.0 mmol/LProMedica Health SystemSodium [Moles/Vol]141 mmol/L134 - 146 mmol/L [facility] Hospital [facility] NorthUrea nitrogen [Mass/Vol]22 mg/dL5 - 27 mg/dLMagee Rehabilitation HospitalCBC WITH AUTO DIFFERENTIALon 04-19-2025 BASOPHILS ABSOLUTE COUNT (10*3/UL) BY AUTOMATED COUNT0.1 10*3/uLNormal0.0-0.2 [facility] SystemComment on above:Performed By: #### CMP #### [facility] ([facility]) [address] [place] [address] VIRBASOPHILS RELATIVE PERCENT BY AUTOMATED COUNT0.9 %Normal [facility] Health SystemComment on above:Performed By: #### CMP #### [facility] ([facility]) [address] [place] [address] VIRCELLAVISION DIFFERENTIAL TYPEAUTOMATED DIFFERENTIALNormal [facility] Health SystemComment on above:Performed By: #### CMP #### [facility] ([facility]) [address] [place] [address] VIREosinophils (Bld) [#/Vol]0.0 10*3/uLNormal0.0-0.4[facility] Health SystemComment on above:Performed By: #### CMP #### [facility] ([facility]) [address] [place] [address] VIREOSINOPHILS RELATIVE PERCENT BY AUTOMATED COUNT0.2 %Normal [facility] SystemComment on above:Performed By: #### CMP #### [facility] ([facility]) [address] [place] [address] VIRErythrocyte distribution width (RBC) [Ratio]13.6 %Normal 11.5-15ProMedica Goochland HospitalComment on above:Performed By: #### CMP #### [facility] ([facility]) [address] [place] [address] VIRHematocrit (Bld) [Volume fraction]34.8 %Ena74-42SppMvhekb Kaur HospitalComment on above:Performed By: #### CMP #### [facility] ([facility]) [address] [place] [address] VIRHemoglobin (Bld) [Mass/Vol]11.6 g/vTKcb24-72TsxMdkrci [facility]chland HospitalComment on above:Performed By: #### CMP #### [facility] ([facility]) [address] [place] [address] VIRLYMPHOCYTES ABSOLUTE COUNT (10*3/UL) BY AUTOMATED COUNT1.2 10*3/uLNormal1.0-3.5ProMedica Goochland HospitalComment on above:Performed By: #### CMP #### [facility] ([facility]) [address] [place] [address] VIRLYMPHOCYTES RELATIVE PERCENT BY AUTOMATED COUNT9.7 %Normal Pro[facility]chland HospitalComment on above:Performed By: #### CMP #### [facility] ([facility]) [address] [place] [address] VIRMCH (RBC) [Entitic mass]30.8 ulSpettf61-86FncGlvxfp Kaur HospitalComment on above:Performed By: #### CMP #### [facility] ([facility]) [address] [place] [address] VIRMCHC (RBC) [Mass/Vol]33.4 g/yFMszjyo70-08SauQzczgj [facility] HospitalComment on above:Performed By: #### CMP #### [facility] ([facility]) [address] [place] [address] VIRMCV (RBC) [Entitic vol]92 lCCbuwol24-691KyyCltafz [facility]land HospitalComment on above:Performed By: #### CMP #### [facility] ([facility]) [address] [place] [address] VIRMONOCYTES ABSOLUTE COUNT (10*3/UL) BY AUTOMATED COUNT1.3 10*3/uLHigh0.0-0.9ProMedica [facility]oochland HospitalComment on above:Performed By: #### CMP #### [facility] ([facility]) [address] [place] [address] VIRMONOCYTES RELATIVE PERCENT BY AUTOMATED COUNT10.3 %Normal ProMcitizens baptista [facility]chland HospitalComment on above:Performed By: #### CMP #### [facility] ([facility]) [address] [place] [address] VIRNEUTROPHILS ABSOLUTE COUNT BY AUTOMATED COUNT9.7 10*3/uLHigh 1.5-6.6ProKettering Healthca Goochland HospitalComment on above:Performed By: #### CMP #### [facility] ([facility]) [address] [place] [address] VIRNEUTROPHILS RELATIVE PERCENT BY AUTOMATED COUNT78.9 %Normal ProMcitizens baptista [facility]oochland HospitalComment on above:Performed By: #### CMP #### [facility] ([facility]) [address] [place] [address] VIRPlatelet mean volume (Bld) [Entitic vol]8.3 fLNormal7-12 [facility]chland HospitalComment on above:Performed By: #### CMP #### [facility] ([facility]) [address] [place] [address] VIRPlatelets (Bld) [#/Vol]240 10*3/yJOqclps768-452TyzPsfsti Kaur HospitalComment on above:Performed By: #### CMP #### [facility] ([facility]) [address] [place] [address] VIRRBC COUNT3.78 X10E12/LLow4.1-5.7[facility] Comment on above:Performed By: #### CMP #### [facility] ([facility]) [address] [place] [address] VIRWBC (Bld) [#/Vol]12.3 10*3/uLHigh4-11[facility] SystemComment on above:Performed By: #### CMP #### [facility] ([facility]) [address] [place] [address] VIRCBC auto differentialon [id number] (Bld) [#/Vol]0.1 10*3/uL0.0 - 0.2 10*3/uLSelect Medical Specialty Hospital - Cincinnati NorthBasophils/100 WBC (Bld)0.9 % [facility] NorthDifferential cell count method Nom (Bld)AUTOMATED DIFFERENTIALSelect Medical Specialty Hospital - Cincinnati NorthEosinophils (Bld) [#/Vol]0 10*3/uL0.0 - 0.4 10*3/uLSelect Medical Specialty Hospital - Cincinnati NorthEosinophils/100 WBC (Bld)0.2 %[facility] Hospital [facility] NorthErythrocyte distribution width (RBC) [Ratio]13.6 %11.5 - 15 %[facility] NorthHematocrit (Bld) [Volume fraction]34.8 %Low39 - 50 %[facility] NorthHemoglobin (Bld) [Mass/Vol]11.6 g/dLLow13 - 17 g/dLSelect Medical Specialty Hospital - Cincinnati NorthInterpretation and review of laboratory resultsAbnormalSelect Medical Specialty Hospital - Cincinnati NorthLymphocytes (Bld) [#/Vol]1.2 10*3/uL1.0 - 3.5 10*3/uLSelect Medical Specialty Hospital - Cincinnati NorthLymphocytes/100 WBC (Bld)9.7 %[facility] (RBC) [Entitic mass]30.8 pg27 - 34 [facility] HospitalMCHC (RBC) [Mass/Vol]33.4 g/dL32 - 36 g/dLSelect Medical Specialty Hospital - Cincinnati NorthMCV (RBC) [Entitic vol]92 fL80 - 100 [facility] HospitalMonocytes (Bld) [#/Vol]1.3 10*3/uLHigh0.0 - 0.9 10*3/uLPaulding County Hospital SystemMonocytes/100 WBC (Bld)10.3 %[facility] SystemNeutrophils (Bld) [#/Vol]9.7 10*3/uLHigh1.5 - 6.6 10*3/uLPaulding County Hospital System Neutrophils/100 WBC (Bld)78.9 %[facility] SystemPlatelet mean volume (Bld) [Entitic vol]8.3 fL7 - 12 [facility] SystemPlatelets (Bld) [#/Vol]240 10*3/uLPaulding County Hospital SystemRBC (Bld) [#/Vol]3.78 10*6/uLLowPaulding County Hospital SystemWBC LM Ql (Sput)12.3HighPaulding County Hospital SystemPaulding County Hospital SystemGas panel (BldA)on 32-53-5849Ytpfquab patency Wrist artery --pre arterial puncture N/AProLakeland Community Hospital Health SystemBase excess Calc (Bld) [Moles/Vol]1 mmol/L0.0 - 2.0 mmol/LPrUniversity Hospitals Geneva Medical Center SystemCO2 (Bld) [Partial pressure]46.6 mm[Hg]High [facility] SystemHCO3 (Bld) [Moles/Vol]26.9 mmol/LHigh22.0 - 26.0 mmol/L [facility] SystemInterpretation and review of laboratory resultsAbnormal [facility] SystemOxygen (Bld) [Partial pressure]83 mm[Hg][facility] SystemOxygen therapy source and amount [CARE]NCProMercy Health St. [facility] System Oxygen/Inspired gas setting [Volume Fraction] Utynyhpabp29 %[facility] SystempH (Bld)7.37 [pH]7.350 - 7.450Paul[facility] SystemSpecimen site NarrativeL RadPaulding County Hospital SystemSpecimen type Nom (Spec)ARTERIALProMercy Health St. Anne Hospital SystemSelect Medical Specialty Hospital - [facility] NorthMRSA PCR NASAL SWABon [id number] PCR NASAL SWABNegativeNormalNegativeAvita Health SystemComment on above: Performed By: #### CMP #### [facility] ([facility]) [address] [place] [address] VIRMRSA PCR nasal swabon [id number] and review of laboratory resultsNoCape Fear/Harnett HealthSA DNA CHUCKY+probe Ql (Unsp spec)NegativeNegativeMagee Rehabilitation HospitalXR CHEST 1 VW on 70-19-3029RU CHEST 1 VWXR CHEST 1 VW Single view chest History: Difficulty breathing, shortness of breath Comparison: 04/18/2025 Impression: Ill-defined opacities throughout the left lung have progressed with respect prior [particularly in the left upper lobe], suspect infection or aspiration. No pneumothorax. No sizable pleural effusion. Sternotomy, left sacral closure device. Finalized by Keny Jimenez MD on 04/19/2025 4:28 AMNormalAvita Health SystemXR Chest Single viewon 31-37-5171YFLVMQBGJCYqtQgpyre Health System Radiology Study observation (narrative)[facility] NorthXR Chest Single viewOrdered By: Keny Jimenez on [id number] Medical Specialty Hospital - [facility] North Work Phone: BASIC METABOLIC PANELon 72-02-1566Sjcvs gap [Moles/Vol]6 mmol/LNormal5-15[facility] SystemComment on above:Performed By: #### CMP #### [facility] ([facility]) [address] [place] [address] VIRCalcium [Mass/Vol]8.8 mg/dLNormal8.5-10.5ProMedica Goochland HospitalComment on above:Performed By: #### CMP #### [facility] ([facility]) [address] [place] [address] VIRChloride [Moles/Vol]109 mmol/IJxjiyg27-156UmeUdvcis [place] HospitalComment on above:Performed By: #### CMP #### [facility] ([facility]) [address] [place] [address] VIRCO2 [Moles/Vol]28 mmol/HEtqjvy30-89GyxAtocbg [facility] Comment on above:Performed By: #### CMP #### [facility] ([facility]) [address] [place] [address] VIRCreatinine [Mass/Vol]0.88 mg/dLNormal0.60-1.30ProUniversity Hospitals Health SystemComment on above:Result Comment: METHOD TRACEABLE TO IDMS STANDARDPerformed By: #### CMP #### [facility] ([facility]) [address] [place] [address] VIRGFR/1.73 sq M.predicted among non-blacks MDRD (S/P/Bld) [Vol rate/Area]90 mL/min/{1.73_m2}Normal>=60ProUniversity Hospitals Health SystemComment on above:Result Comment: Reported eGFR is based on the CKD-EPI 2020 equation that does not use a race coefficient.Performed By: #### CMP #### [facility] ([facility]) [address] [place] [address] VIRGlucose [Mass/Vol]110 mg/fZTznk48-55SvoGamwfg [place] HospitalComment on above:Performed By: #### CMP #### [facility] ([facility]) [address] [place] [address] VIRPotassium [Moles/Vol]4.1 mmol/LNormal3.5-5.0ProSouthwest General Health Center HospitalComment on above:Performed By: #### CMP #### [facility] ([facility]) [address] [place] [address] VIRSodium [Moles/Vol]143 mmol/KXzwtmc830-163XqtBzudnn [place] HospitalComment on above:Performed By: #### CMP #### [facility] ([facility]) [address] [place] [address] VIRUrea nitrogen [Mass/Vol]18 mg/dLNormal5-27ProSouthwest General Health Center HospitalComment on above:Performed By: #### CMP #### [facility] ([facility]) [address] [place] [address] VIRBLOOD GAS, ARTERIALon [id number],EXCESS0.0 mmol/LNormal 0.0-2.0ProMedica Goochland HospitalComment on above:Performed By: #### CMP #### [facility] ([facility]) [address] [place] [address] VIRHCO3 (Bld) [Moles/Vol]25.1 mmol/YZpzhwi34.0-26.0ProMedica [facility]chland HospitalComment on above:Performed By: #### CMP #### [facility] ([facility]) [address] [place] [address] VIRINSP. O2 CONC.70 %NormalProKettering Healthca Goochland HospitalComment on above:Performed By: #### CMP #### [facility] ([facility]) [address] [place] [address] VIROxygen saturation in Blood96.0 %Normal>90.0ProKettering Healthca Goochland HospitalComment on above:Performed By: #### CMP #### [facility] ([facility]) [address] [place] [address] VIRPCO2 LJGNFVNF97.4 azMgMleroa58.0-45.0ProSouthwest General Health Center HospitalComment on above:Performed By: #### CMP #### [facility] ([facility]) [address] [place] [address] VIRPH ARTERIAL7.107Ndvtul2.350-7.450ProUniversity Hospitals Health System Comment on above:Performed By: #### CMP #### [facility] ([facility]) [address] [place] [address] VIRPO2 UNWZPUQZ90 iyCxSanbts42-170MdjYjvrox [facility] Comment on above:Performed By: #### CMP #### [facility] ([facility]) [address] [place] [address] JONNY LOVELL TESTPassNormalProMedica Goochland HospitalComment on above:Performed By: #### CMP #### [facility] ([facility]) [address] [place] [address] VIRSAMPLE SITER RadNormalProMedica Ohiohealth Marion General HospitalComment on above:Performed By: #### CMP #### [facility] ([facility]) [address] [place] [address] VIRSAMPLE TYPEARTERIALNormalProMedica Ohiohealth Marion General HospitalComment on above:Performed By: #### CMP #### [facility] ([facility]) [address] [place] [address] VIRSOURCE OF OXYGENNC NRBNormalProMedica Ohio[facility] Marion General HospitalComment on above:Performed By: #### CMP #### [facility] ([facility]) [address] [place] [address] VIRBasic Metabolic Panelon 12-36-4353Stolj gap [Moles/Vol]6 mmol/L5 - 15 mmol/[facility] Health SystemCalcium [Mass/Vol]8.8 mg/dL8.5 - 10.5 mg/dLSelect Medical Specialty Hospital - Cincinnati NorthChloride [Moles/Vol]109 mmol/L98 - 109 mmol/L [facility] NorthCO2 [Moles/Vol]28 mmol/L22 - 32 mmol/LProMedveterans affairs medical center-tuscaloosa Health SystemCreatinine [Mass/Vol]0.88 mg/dL0.60 - 1.30 mg/dLPaulding County Hospital System EGFR Non-Race Nrtmuajev67- PINFPTuscarawas Hospital SystemGlucose [Mass/Vol]110 mg/yRXfgv49 - 99 mg/dLPaulding County Hospital SystemInterpretation and review of laboratory resultsAbnormalDelaware County Hospital Health SystemPotassium [Moles/Vol]4.1 mmol/L 3.5 - 5.0 mmol/LProMedica Health SystemSodium [Moles/Vol]143 mmol/L134 - 146 mmol/LProMedveterans affairs medical center-tuscaloosa Health SystemUrea nitrogen [Mass/Vol]18 mg/dL5 - 27 mg/dL [facility] HospitalCBC WITH AUTO DIFFERENTIALon [id number] ABSOLUTE COUNT (10*3/UL) BY AUTOMATED COUNT0.1 10*3/uLNormal 0.0-0.2Pro[facility] HospitalComment on above:Performed By: #### CBCA #### [facility] ([facility]) [address] [place] [address] VIRBASOPHILS RELATIVE PERCENT BY AUTOMATED COUNT0.5 %Normal [facility] HospitalComment on above:Performed By: #### CBCA #### [facility] ([facility]) [address] [place] [address] VIRCELLAVISION DIFFERENTIAL TYPEAUTOMATED DIFFERENTIALNormal [facility] HospitalComment on above:Performed By: #### CBCA #### [facility] ([facility]) [address] [place] [address] VIREosinophils (Bld) [#/Vol]0.0 10*3/uLNormal0.0-0.4ProSouth[facility] HospitalComment on above:Performed By: #### CBCA #### [facility] ([facility]) [address] [place] [address] VIREOSINOPHILS RELATIVE PERCENT BY AUTOMATED COUNT0.1 %Normal [facility] SystemComment on above:Performed By: #### CBCA #### [facility] ([facility]) [address] [place] [address] VIRErythrocyte distribution width (RBC) [Ratio]13.6 %Normal 11.5-15ProSouth[facility] HospitalComment on above:Performed By: #### CBCA #### [facility] ([facility]) [address] [place] [address] VIRHematocrit (Bld) [Volume fraction]33.0 %Hdi07-91EfcUujifm [place] HospitalComment on above:Performed By: #### CBCA #### [facility] ([facility]) [address] [place] [address] VIRHemoglobin (Bld) [Mass/Vol]11.2 g/aMJyu90-80LxhYzlcnl [place] HospitalComment on above:Performed By: #### CBCA #### [facility] ([facility]) [address] [place] [address] VIRLYMPHOCYTES ABSOLUTE COUNT (10*3/UL) BY AUTOMATED COUNT1.0 10*3/uLNormal1.0-3.5Pro[facility] [place] HospitalComment on above:Performed By: #### CBCA #### [facility] ([facility]) [address] [place] [address] VIRLYMPHOCYTES RELATIVE PERCENT BY AUTOMATED COUNT7.7 %Normal [facility] HospitalComment on above:Performed By: #### CBCA #### [facility] ([facility]) [address] [place] [address] VIRMCH (RBC) [Entitic mass]31.1 bpBrxeag71-61VppJgtqwf [place] HospitalComment on above:Performed By: #### CBCA #### [facility] ([facility]) [address] [place] [address] VIRMCHC (RBC) [Mass/Vol]33.9 g/jGIsbaih57-64JhoZnwohc [place] HospitalComment on above:Performed By: #### CBCA #### [facility] ([facility]) [address] [place] [address] VIRMCV (RBC) [Entitic vol]92 yVCaevse28-963XqwZkvkko [place] HospitalComment on above:Performed By: #### CBCA #### [facility] ([facility]) [address] [place] [address] VIRMONOCYTES ABSOLUTE COUNT (10*3/UL) BY AUTOMATED COUNT1.2 10*3/uLHigh0.0-0.9ProSouth[facility] HospitalComment on above:Performed By: #### CBCA #### [facility] ([facility]) [address] [place] [address] VIRMONOCYTES RELATIVE PERCENT BY AUTOMATED COUNT9.8 %Normal [facility] HospitalComment on above:Performed By: #### CBCA #### [facility] ([facility]) [address] [place] [address] VIRNEUTROPHILS ABSOLUTE COUNT BY AUTOMATED COUNT10.3 10*3/uL High1.5-6.6ProKettering Healthca [facility]chland HospitalComment on above:Performed By: #### CBCA #### [facility] ([facility]) [address] [place] [address] VIRNEUTROPHILS RELATIVE PERCENT BY AUTOMATED COUNT81.9 %Normal [facility] HospitalComment on above:Performed By: #### CBCA #### [facility] ([facility]) [address] [place] [address] VIRPlatelet mean volume (Bld) [Entitic vol]7.8 fLNormal7-12 ProMSouthview Medical Center HospitalComment on above:Performed By: #### CBCA #### [facility] ([facility]) [address] [place] [address] VIRPlatelets (Bld) [#/Vol]210 10*3/dLMrffok259-772GyrIbsrdg [place] HospitalComment on above:Performed By: #### CBCA #### [facility] ([facility]) [address] [place] [address] VIRRBC COUNT3.60 X10E12/LLow4.1-5.7ProKettering Healthca [facility] Hospital Comment on above:Performed By: #### CBCA #### [facility] ([facility]) [address] [place] [address] VIRWBC (Bld) [#/Vol]12.6 10*3/uLHigh4-11ProKettering Healthca [facility] HospitalComment on above:Performed By: #### CBCA #### [facility] ([facility]) [address] [place] [address] [facility] auto differentialon [id number] (Bld) [#/Vol]0.1 10*3/uL0.0 - 0.2 10*3/uLProMercy Health St. Anne Hospital SystemBasophils/100 WBC (Bld)0.5 % [facility] NorthDifferential cell count method Nom (Bld)AUTOMATED DIFFERENTIALSelect Medical Specialty Hospital - Cincinnati NorthEosinophils (Bld) [#/Vol]0 10*3/uL0.0 - 0.4 10*3/uLSelect Medical Specialty Hospital - Cincinnati NorthEosinophils/100 WBC (Bld)0.1 %[facility] NorthErythrocyte distribution width (RBC) [Ratio]13.6 %11.5 - 15 %[facility] NorthHematocrit (Bld) [Volume fraction]33 %Low39 - 50 %[facility] NorthHemoglobin (Bld) [Mass/Vol]11.2 g/dLLow13 - 17 g/dLPaulding County Hospital System Interpretation and review of laboratory resultsAbnormalSelect [facility] North Lymphocytes (Bld) [#/Vol]1 10*3/uL1.0 - 3.5 10*3/uLPaulding County Hospital System Lymphocytes/100 WBC (Bld)7.7 %[facility] NorthMCH (RBC) [Entitic mass] 31.1 pg27 - 34 pgPAvita Health System Ontario HospitalMCHC (RBC) [Mass/Vol]33.9 g/dL32 - 36 g/dLSelect Medical Specialty Hospital - [facility] NorthMCV (RBC) [Entitic vol]92 fL80 - 100 [facility] HospitalMonocytes (Bld) [#/Vol]1.2 10*3/uLHigh0.0 - 0.9 10*3/uLSelect Medical Specialty Hospital - [facility] NorthMonocytes/100 WBC (Bld)9.8 %[facility] NorthNeutrophils (Bld) [#/Vol]10.3 10*3/uLHigh1.5 - 6.6 10*3/uLPaulding County Hospital System Neutrophils/100 WBC (Bld)81.9 %[facility] NorthPlatelet mean volume (Bld) [Entitic vol]7.8 fL7 - 12 [facility] SystemPlatelets (Bld) [#/Vol]210 10*3/uLPaulding County Hospital SystemRBC (Bld) [#/Vol]3.6 10*6/uLLowSelect Medical Specialty Hospital - Cincinnati NorthWBC LM Ql (Sput)12.6HighMagee Rehabilitation HospitalEKG on [id number] Health SystemGas panel (BldA)on 04-18-2025 Arterial patency Wrist artery --pre arterial punctureErlanger Western Carolina Hospital Base excess Calc (Bld) [Moles/Vol]0 mmol/L0.0 - 2.0 mmol/[facility] SystemCO2 (Bld) [Partial pressure]40.4 mm[Hg][facility] [employer] Mclaren FlintHCO3 (Bld) [Moles/Vol]25.1 mmol/L22.0 - 26.0 mmol/LPrUniversity Hospitals Geneva Medical Center SystemOxygen (Bld) [Partial pressure]83 mm[Hg][facility] [employer] SystemOxygen therapy source and amount [CARE]NC NRBPOur Lady of Angels Hospital Health SystemOxygen/Inspired gas setting [Volume Fraction] Uesizpmljz98 %[facility] [employer] Mclaren FlintpH (Bld)7.401 [pH]7.350 - 7.450 [facility] Centerpecimen site NarrativeR [facility] Specimen type Nom (Spec)ARTERIALMagee Rehabilitation HospitalIR LMTD OR LOCALIZED FU STUDYon [id number] LMTD OR LOCALIZED FU STUDYIR LMTD OR LOCALIZED FU STUDY History: 75-year-old male with left pleural fluid Procedure: Limited left chest ultrasound. Interventional radiologist: Dr. Mc Whiting Estimated blood loss: None. Findings and technique: Informed consent for thoracentesis was obtained from the patient after discussion of procedure, risks and benefits. Final verification performed. Limited scanning with ultrasound demonstrated trace left pleural fluid. No solid or cystic mass. IMPRESSION: * Trace left pleural effusion. * Thoracentesis canceled due to inadequate fluid to perform procedure safely. Finalized by cM Whiting MD on 04/18/2025 5:30 [facility] Mediastinumon [id number] Medical Specialty Hospital [facility] Cincinnati NorthRadiology Study observation (narrative)[facility] NorthUS MediastinumOrdered By: Mc Whiting on [id number] Medical Specialty Hospital - [facility] North Work Phone: US.doppler Lower extremity vein - bilateralon [id number] CARDIOVASCULARSelect Medical Specialty Hospital - Cincinnati NorthRadiology Study observation (narrative)[facility] NorthUS.doppler Lower extremity vein - bilateral Ordered By: Lakeisha Ladd on [id number] Medical Specialty [facility] North Work Phone: XR CHEST 1 VWon [id number] CHEST 1 VWXR CHEST 1 VW Single view chest History:Bad ABG Difficulty breathing, shortness of breath Comparison: 04/17/2025 Findings: Single portable view of the chest. Stable mild vascular congestion and interstitial edema with stable left lower lung and retrocardiac atelectasis versus pneumonia. No large effusion or pneumothorax. Impression: No significant interval change. Finalized by Jerson Tipton MD on 04/18/2025 7:17 AMNormalAvita Health SystemXR Chest Single viewon [id number]rson HospitalRadiology Study observation (narrative)[facility] NorthBASIC METABOLIC PANELon 35-75-9903Owxmi gap [Moles/Vol]6 mmol/LNormal5-15 [facility] SystemComment on above:Performed By: #### CBCA #### [facility] ([facility]) [address] [place] [address] VIRCalcium [Mass/Vol]8.5 mg/dLNormal8.5-10.5Pro[facility]ica [facility] HospitalComment on above:Performed By: #### CBCA #### [facility] ([facility]) [address] [place] [address] VIRChloride [Moles/Vol]110 mmol/BVdvu54-653MewTrvjjqUniversity Hospitals Health SystemComment on above:Performed By: #### CBCA #### [facility] ([facility]) [address] [place] [address] VIRCO2 [Moles/Vol]25 mmol/NVtbzgx20-01SkiInguyp [facility] Comment on above:Performed By: #### CBCA #### [facility] ([facility]) [address] [place] [address] VIRCreatinine [Mass/Vol]0.81 mg/dLNormal0.60-1.30ProKettering Healthca [facility]land HospitalComment on above:Result Comment: METHOD TRACEABLE TO IDMS STANDARDPerformed By: #### CBCA #### [facility] ([facility]) [address] [place] [address] VIREGFR (CKD-EPI) NON-RACE DEPENDENT>^90Normal>=60ProSouthwest General Health Center HospitalComment on above:Result Comment: Reported eGFR is based on the CKD-EPI 2020 equation that does not use a race coefficient.Performed By: #### CBCA #### [facility] ([facility]) [address] [place] [address] VIRGlucose [Mass/Vol]118 mg/eBDnbf40-46KirNbuqkx [place] HospitalComment on above:Performed By: #### CBCA #### [facility] ([facility]) [address] [place] [address] VIRPotassium [Moles/Vol]4.3 mmol/LNormal3.5-5.0ProSouthwest General Health Center HospitalComment on above:Performed By: #### CBCA #### [facility] ([facility]) [address] [place] [address] VIRSodium [Moles/Vol]141 mmol/MChoxaz511-455HypMsmhxb [place] HospitalComment on above:Performed By: #### CBCA #### [facility] ([facility]) [address] [place] [address] VIRUrea nitrogen [Mass/Vol]22 mg/dLNormal5-27ProSouthwest General [facility] Center HospitalComment on above:Performed By: #### CBCA #### [facility] ([facility]) [address] [place] [address] VIRBLOOD GAS, ARTERIALon 95-31-2297ZIQK,DEFICIT-2.0 mmol/LLow 0.0-2.0Pro[facility]ica [place] HospitalComment on above:Performed By: #### CBCA #### [facility] ([facility]) [address] [place] [address] VIRHCO3 (Bld) [Moles/Vol]22.8 mmol/YRkestd24.0-26.0Pro[facility]ica [place] HospitalComment on above:Performed By: #### CBCA #### [facility] ([facility]) [address] [place] [address] VIRINSP. O2 CONC.55 %NormalProMedica [place]chland HospitalComment on above:Performed By: #### CBCA #### [facility] ([facility]) [address] [place] [address] VIROxygen saturation in Blood87.0 %Low>90.0Pro[facility]ica [place] HospitalComment on above:Performed By: #### CBCA #### [facility] ([facility]) [address] [place] [address] VIRPCO2 AGIOSHAN35.4 jbExAejuon50.0-45.0Pro[facility] [place] HospitalComment on above:Performed By: #### CBCA #### [facility] ([facility]) [address] [place] [address] VIRPH ARTERIAL7.213Ixzhfx4.350-7.450[facility] Comment on above:Performed By: #### CBCA #### [facility] ([facility]) [address] [place] [address] VIRPO2 LRUXGOZC21 laRpBva93-130RkcDtxfew [place] HospitalComment on above:Performed By: #### CBCA #### [facility] ([facility]) [address] [place] [address] VIRPOC IZABEL'S TESTPassNormalProMedica [place]chland HospitalComment on above:Performed By: #### CBCA #### [facility] ([facility]) [address] [place] [address] VIRSAMPLE SITER RadNormalProMedica [facility] Marion General HospitalComment on above:Performed By: #### CBCA #### [facility] ([facility]) [address] [place] [address] VIRSAMPLE TYPEARTERIALNormalProMedica [facility] HospitalComment on above:Performed By: #### CBCA #### [facility] ([facility]) [address] [place] [address] VIRSOURCE OF OXYGENNCNormalProMedica [place] HospitalComment on above:Performed By: #### CBCA #### [facility] ([facility]) [address] [place] [address] VIRBasic Metabolic Panelon [id number] gap [Moles/Vol]6 mmol/L5 - 15 mmol/LProMedica Health SystemCalcium [Mass/Vol]8.5 mg/dL8.5 - 10.5 mg/dLPaulding County Hospital SystemChloride [Moles/Vol]110 mmol/LHigh98 - 109 mmol/L [facility] SystemCO2 [Moles/Vol]25 mmol/L22 - 32 mmol/LProMedica Health SystemCreatinine [Mass/Vol]0.81 mg/dL0.60 - 1.30 mg/dLPaulding County Hospital System EGFR Non-Race Dependent- PINPremier Health Upper [facility] Medical [facility] SystemGlucose [Mass/Vol]118 mg/dL High65 - 99 mg/dLPaulding County Hospital SystemInterpretation and review of laboratory resultsAbnormalPaulding County Hospital SystemPotassium [Moles/Vol]4.3 mmol/L3.5 - 5.0 mmol/LProMedica Health SystemSodium [Moles/Vol]141 mmol/L134 - 146 mmol/L [facility] SystemUrea nitrogen [Mass/Vol]22 mg/dL5 - 27 mg/dLProWellSpan [facility] WITH AUTO DIFFERENTIALon 04-17-2025 BASOPHILS ABSOLUTE COUNT (10*3/UL) BY AUTOMATED COUNT0.0 10*3/uLNormal0.0-0.2 [facility] SystemComment on above:Performed By: #### CBCA #### [facility] ([facility]) [address] [place] [address] VIRBASOPHILS RELATIVE PERCENT BY AUTOMATED COUNT0.3 %Normal [facility] HospitalComment on above:Performed By: #### CBCA #### [facility] ([facility]) [address] [place] [address] VIRCELLAVISION DIFFERENTIAL TYPEAUTOMATED DIFFERENTIALNormal [facility] HospitalComment on above:Performed By: #### CBCA #### [facility] ([facility]) [address] [place] [address] VIREosinophils (Bld) [#/Vol]0.0 10*3/uLNormal0.0-0.4ProSouthwest General [facility] HospitalComment on above:Performed By: #### CBCA #### [facility] ([facility]) [address] [place] [address] VIREOSINOPHILS RELATIVE PERCENT BY AUTOMATED COUNT0.0 %Normal [facility] HospitalComment on above:Performed By: #### CBCA #### [facility] ([facility]) [address] [place] [address] VIRErythrocyte distribution width (RBC) [Ratio]13.7 %Normal 11.5-15ProSouthwest General Health Center HospitalComment on above:Performed By: #### CBCA #### [facility] ([facility]) [address] [place] [address] VIRHematocrit (Bld) [Volume fraction]33.0 %Xnc35-76GqhFrvsrc [place] HospitalComment on above:Performed By: #### CBCA #### [facility] ([facility]) [address] [place] [address] VIRHemoglobin (Bld) [Mass/Vol]11.1 g/zKZtg87-92YccFmtcjm [facility] HospitalComment on above:Performed By: #### CBCA #### [facility] ([facility]) [address] [place] [address] VIRLYMPHOCYTES ABSOLUTE COUNT (10*3/UL) BY AUTOMATED COUNT0.7 10*3/uLLow1.0-3.5Pro[facility]ica [place] HospitalComment on above:Performed By: #### CBCA #### [facility] ([facility]) [address] [place] [address] VIRLYMPHOCYTES RELATIVE PERCENT BY AUTOMATED COUNT4.8 %Normal [facility] HospitalComment on above:Performed By: #### CBCA #### [facility] ([facility]) [address] [place] [address] VIRMCH (RBC) [Entitic mass]31.0 pmUpgtjc89-91CajSjworl [facility] HospitalComment on above:Performed By: #### CBCA #### [facility] ([facility]) [address] [place] [address] VIRMCHC (RBC) [Mass/Vol]33.6 g/pSQnlwxt21-49LtmRjtkqi [place] HospitalComment on above:Performed By: #### CBCA #### [facility] ([facility]) [address] [place] [address] VIRMCV (RBC) [Entitic vol]92 eXUybrlp62-484EacVzlnmn [facility] HospitalComment on above:Performed By: #### CBCA #### [facility] ([facility]) [address] [place] [address] VIRMONOCYTES ABSOLUTE COUNT (10*3/UL) BY AUTOMATED COUNT1.2 10*3/uLHigh0.0-0.9ProMedica [facility] HospitalComment on above:Performed By: #### CBCA #### [facility] ([facility]) [address] [place] [address] VIRMONOCYTES RELATIVE PERCENT BY AUTOMATED COUNT9.0 %Normal [facility] HospitalComment on above:Performed By: #### CBCA #### [facility] ([facility]) [address] [place] [address] VIRNEUTROPHILS ABSOLUTE COUNT BY AUTOMATED COUNT11.8 10*3/uL High1.5-6.6Pro[facility]ica [place] HospitalComment on above:Performed By: #### CBCA #### [facility] ([facility]) [address] [place] [address] VIRNEUTROPHILS RELATIVE PERCENT BY AUTOMATED COUNT85.9 %Normal ProMSouthview Medical Center HospitalComment on above:Performed By: #### CBCA #### [facility] ([facility]) [address] [place] [address] VIRPlatelet mean volume (Bld) [Entitic vol]7.9 fLNormal7-12 ProMSouthview Medical Center HospitalComment on above:Performed By: #### CBCA #### [facility] ([facility]) [address] [place] [address] VIRPlatelets (Bld) [#/Vol]187 10*3/aMMyuzhh232-851UrwTdnjvu [facility] HospitalComment on above:Performed By: #### CBCA #### [facility] ([facility]) [address] [place] [address] VIRRBC COUNT3.58 X10E12/LLow4.1-5.7ProKettering Healthca [facility] Comment on above:Performed By: #### CBCA #### [facility] ([facility]) [address] [place] [address] VIRWBC (Bld) [#/Vol]13.8 10*3/uLHigh4-11ProMedica [facility] HospitalComment on above:Performed By: #### CBCA #### [facility] ([facility]) [address] [place] [address] [facility] auto differentialon 62-66-1830Riooxgmrd (Bld) [#/Vol]0 10*3/uL0.0 - 0.2 10*3/uLSelect Medical Specialty Hospital - Cincinnati NorthBasophils/100 WBC (Bld)0.3 % [facility] NorthDifferential cell count method Nom (Bld)AUTOMATED DIFFERENTIALSelect Medical Specialty Hospital - Cincinnati NorthEosinophils (Bld) [#/Vol]0 10*3/uL0.0 - 0.4 10*3/uLSelect Medical Specialty Hospital - Cincinnati NorthEosinophils/100 WBC (Bld)0 %[facility] NorthErythrocyte distribution width (RBC) [Ratio]13.7 %11.5 - 15 %[facility] NorthHematocrit (Bld) [Volume fraction]33 %Low39 - 50 %[facility] NorthHemoglobin (Bld) [Mass/Vol]11.1 g/dLLow13 - 17 g/dLSelect Medical Specialty Hospital - [place] North Interpretation and review of laboratory resultsAbnormalSelect Medical Specialty [facility] Lymphocytes (Bld) [#/Vol]0.7 10*3/uLLow1.0 - 3.5 10*3/uLSelect Medical Specialty Hospital - [place] North Lymphocytes/100 WBC (Bld)4.8 %[facility] NorthMCH (RBC) [Entitic mass]31 pg27 - 34 [facility] (RBC) [Mass/Vol]33.6 g/dL32 - 36 g/dL [facility] NorthMCV (RBC) [Entitic vol]92 fL80 - 100 [facility] HospitalMon[facility] (Bld) [#/Vol]1.2 10*3/uLHigh0.0 - 0.9 10*3/uLSelect Medical Specialty Hospital - [place] NorthMonocytes/100 WBC (Bld)9 %[facility] NorthNeutrophils (Bld) [#/Vol] 11.8 10*3/uLHigh1.5 - 6.6 10*3/uLSelect Medical Specialty Hospital - [place] NorthNeutrophils/100 WBC (Bld)85.9 %[facility] NorthPlatelet mean volume (Bld) [Entitic vol]7.9 fL 7 - 12 [facility] SystemPlatelets (Bld) [#/Vol]187 10*3/[facility] SystemRBC (Bld) [#/Vol]3.58 10*6/[facility] HospitalWBC LM Ql (Sput)13.8HSelect Specialty Hospital - DanvilleCT CHEST W CONTon 22-18-1269SN CHEST W CONTCT CHEST W CONT CT of the chest with contrast dated 04/17/2025 at 11:32 AM INDICATION: Hemothorax, pleural effusion. PROCEDURE: Automatic radiation exposure lowering techniques were utilized. All CT scans at this facility use dose modulation, iterative reconstruction, and/or weight based dosing when appropriate to reduce radiation dose to as low as reasonably achievable.. Following the intravenous injection of 100 mL of Omnipaque, a CT of the chest and sagittal and coronal reformats obtained. FINDINGS: Comparison is CT dated 04/13/2025. Small left pleural effusion and left lower lobe consolidation/collapse. Patchy groundglass opacities in the lungs. Centrilobular emphysema. Median sternotomy and coronary artery bypass surgery. The ascending aorta measures 4.8 cm. Aortic valve replacementand atrial appendage Clip in place. Nondisplaced fractures of the lateral left fifth through eighthribs. Nodule in the anterior left upper lobe on axial slice #95 measuring 1.2 cm, could be benign or malignant, recommend follow-up chest CT in 2-3 months per Fleischner criteria. IMPRESSION: 1. Small left pleural effusion. 2. Left lower lobe consolidation and/or collapse 3. 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 4. The ascending aorta measures 4.8 cm. 5. Nondisplaced fractures of the left lateral 5-8 ribs. #6 centrilobular emphysema and patchy groundglass opacities in the lungs. 6. Peripheral nodule in the left upper lobe on axial slice #95, could be benign or malignant, recommend follow-up chest CT in 2-3 month. A stat read was provided. Finalized by Jaden Gonzalez MD on 04/17/2025 12:15 [facility]CT [facility] limited W contrast Beth [id number] Clinic Health System [facility]isc[facility] Healthcare SystemRadiology Study observation (narrative)[facility] NorthGas panel (BldA)on 39-50-1811Dplldizy patency Wrist artery --pre arterial puncturePassSelect Medical Specialty Hospital - [facility] NorthBase deficit (Bld) [Moles/Vol]-2 mmol/LLow0.0 - 2.0 mmol/LProMedMercy Health Lorain Hospital SystemCO2 (Bld) [Partial pressure]40.4 mm[Hg][facility] SystemHCO3 (Bld) [Moles/Vol]22.8 mmol/L22.0 - 26.0 mmol/L [facility] SystemInterpretation and review of laboratory resultsAbnormal [facility] NorthOxygen (Bld) [Partial pressure]55 mm[Hg]LowProWyandot Memorial HospitalOxygen therapy source and amount [CARE]NCSelect Medical Specialty Hospital - [facility] North Oxygen/Inspired gas setting [Volume Fraction] Xggytbvpwx37 %[facility] NorthpH (Bld)7.36 [pH]7.350 - 7.450M[facility] Health Centerpecimen site NarrativeR RadMission Family Health Centerpecimen type Nom (Spec)ARTERIALMagee Rehabilitation HospitalXR CHEST 1 VWon [id number] CHEST 1 VWXR CHEST 1 VW CHEST ONE VIEW COMPARISON: 04/16/2025 HISTORY: follow up on rib fractures. Impression: 1. Stable left basilar airspace disease and small left effusion. Diffuse interstitial opacities, not significantly changed. 2. No evidence for a pneumothorax. Finalized by Aron Feldman MD on 04/17/2025 4:53 AMNormalAvita Health SystemXR Chest Single viewon [id number]rsen Boscobel Area Hospital and ClinicsRadiology Study observation (narrative)[facility]36on [id number] stress test result from 04/07/2025: Jj Ayoub MD to Me (Selected Message) GM 04/15/25 6:50 PM Please tell him that the stress test was okay. Follow-up as planned. Patient informed.NormalCleveland Clinic Medina HospitalBASIC METABOLIC PANEL on 42-37-3537Hkdmk gap [Moles/Vol]6 mmol/LNormal5-15[facility] Comment on above:Performed By: #### CBCA #### [facility] ([facility]) [address] [place] [address] VIRCalcium [Mass/Vol]8.2 mg/dLLow8.5-10.5PMercy Health St. Charles HospitalComment on above:Performed By: #### CBCA #### [facility] ([facility]) [address] [place] [address] VIRChloride [Moles/Vol]107 mmol/HEgrcrn22-237XeyFgwztf [place] HospitalComment on above:Performed By: #### CBCA #### [facility] ([facility]) [address] [place] [address] VIRCO2 [Moles/Vol]23 mmol/VCyqfgj73-35GrlNbpzwgMercy Health St. Charles Hospital Comment on above:Performed By: #### CBCA #### [facility] ([facility]) [address] [place] [address] VIRCreatinine [Mass/Vol]1.06 mg/dLNormal0.60-1.30ProUniversity Hospitals Health SystemComment on above:Result Comment: METHOD TRACEABLE TO IDMS STANDARDPerformed By: #### CBCA #### [facility] ([facility]) [address] [place] [address] VIRGFR/1.73 sq M.predicted among non-blacks MDRD (S/P/Bld) [Vol rate/Area]74 mL/min/{1.73_m2}Normal>=60ProUniversity Hospitals Health SystemComment on above:Result Comment: Reported eGFR is based on the CKD-EPI 2020 equation that does not use a race coefficient.Performed By: #### CBCA #### [facility] ([facility]) [address] [place] [address] VIRGlucose [Mass/Vol]125 mg/jRCfhx05-10WenUqotsqUniversity Hospitals Health SystemComment on above:Performed By: #### CBCA #### [facility] ([facility]) [address] [place] [address] VIRPotassium [Moles/Vol]4.4 mmol/LNormal3.5-5.0ProMedica Kaur HospitalComment on above:Performed By: #### CBCA #### [facility] ([facility]) [address] [place] [address] VIRSodium [Moles/Vol]136 mmol/RArlcsf923-588VcwSjcdek Kaur HospitalComment on above:Performed By: #### CBCA #### [facility] ([facility]) [address] [place] [address] VIRUrea nitrogen [Mass/Vol]25 mg/dLNormal5-27ProMedica Kaur HospitalComment on above:Performed By: #### CBCA #### [facility] ([facility]) [address] [place] [address] VIRBLOOD GAS, ARTERIALon 68-30-0137DPDX,DEFICIT-5.0 mmol/LLow 0.0-2.0ProMedica Kaur HospitalComment on above:Performed By: #### CBCA #### [facility] ([facility]) [address] [place] [address] VIRHCO3 (Bld) [Moles/Vol]20.6 mmol/LLow22.0-26.0ProMedica Kaur HospitalComment on above:Performed By: #### CBCA #### [facility] ([facility]) [address] [place] [address] VIRINSP. O2 CONC.50 %NormalProMedica Kaur HospitalComment on above:Performed By: #### CBCA #### [facility] ([facility]) [address] [place] [address] VIROxygen saturation in Blood93.0 %Normal>90.0ProMedica Kaur HospitalComment on above:Performed By: #### CBCA #### [facility] ([facility]) [address] [place] [address] VIRPCO2 CBMOHWWD94.6 pcZzXpkmor77.0-45.0ProKettering Healthca Goochland HospitalComment on above:Performed By: #### CBCA #### [facility] ([facility]) [address] [place] [address] VIRPH ARTERIAL7.175Xaz8.350-7.450ProUniversity Hospitals Health System Comment on above:Performed By: #### CBCA #### [facility] ([facility]) [address] [place] [address] VIRPO2 IRHDATEB52 siSxYur22-926WcyUchupx Goochland HospitalComment on above:Performed By: #### CBCA #### [facility] ([facility]) [address] [place] [address] VIRPOC IZABEL'S TESTPassNormalProKettering Healthca Goochland HospitalComment on above:Performed By: #### CBCA #### [facility] ([facility]) [address] [place] [address] VIRSAMPLE SITEL RadNormalProKettering Healthca [facility] General HospitalComment on above:Performed By: #### CBCA #### [facility] ([facility]) [address] [place] [address] VIRSAMPLE TYPEARTERIALNormalProMedica Goochland HospitalComment on above:Performed By: #### CBCA #### [facility] ([facility]) [address] [place] [address] VIRSOURCE OF OXYGENNCNormalProMedica Goochland HospitalComment on above:Performed By: #### CBCA #### [facility] ([facility]) [address] [place] [address] VIRBASE,DEFICIT-3.0 mmol/LLow0.0-2.0ProUniversity Hospitals Health System Comment on above:Performed By: #### CBCA #### [facility] ([facility]) [address] [place] [address] VIRHCO3 (Bld) [Moles/Vol]23.0 mmol/VWulptv05.0-26.0ProMedica Goochland HospitalComment on above:Performed By: #### CBCA #### [facility] ([facility]) [address] [place] [address] VIRINSP. O2 CONC.40 %NormalProMedica Goochland HospitalComment on above:Performed By: #### CBCA #### [facility] ([facility]) [address] [place] [address] VIROxygen saturation in Blood78.0 %Low>90.0ProMedica Goochland HospitalComment on above:Performed By: #### CBCA #### [facility] ([facility]) [address] [place] [address] VIRPCO2 IZTRTVVC12.8 byPoIajpvw76.0-45.0ProMedica Goochland HospitalComment on above:Performed By: #### CBCA #### [facility] ([facility]) [address] [place] [address] VIRPH ARTERIAL7.391Xun5.350-7.450ProMedica [facility] Comment on above:Performed By: #### CBCA #### [facility] ([facility]) [address] [place] [address] VIRPO2 IZTBXGVK55 mmHgCritically var84-556LrfMginbz Goochland HospitalComment on above:Performed By: #### CBCA #### [facility] ([facility]) [address] [place] [address] VIRPOC IZABEL'S TESTPassNormalProMedica Goochland HospitalComment on above:Performed By: #### CBCA #### [facility] ([facility]) [address] [place] [address] VIRSAMPLE SITER RadNormalProMedica Goochland HospitalComment on above:Performed By: #### CBCA #### [facility] ([facility]) [address] [place] [address] VIRSAMPLE TYPEARTERIALNormalAvita Health SystemComment on above:Performed By: #### CBCA #### [facility] ([facility]) [address] [place] [address] VIRSOURCE OF OXYGENNCNormalAvita Health SystemComment on above:Performed By: #### CBCA #### [facility] ([facility]) [address] [place] [address] VIRBasic Metabolic Panelon 58-47-7352Obtki gap [Moles/Vol]6 mmol/L5 - 15 mmol/LPrWeisbrod Memorial County Hospital Health SystemCalcium [Mass/Vol]8.2 mg/dLLow8.5 - 10.5 mg/dLPaulding County Hospital SystemChloride [Moles/Vol]107 mmol/L98 - 109 mmol/L [facility] SystemCO2 [Moles/Vol]23 mmol/L22 - 32 mmol/LPrWeisbrod Memorial County Hospital Health SystemCreatinine [Mass/Vol]1.06 mg/dL0.60 - 1.30 mg/dLDelaware County Hospital Health System EGFR Non-Race Zgbzcuuim18- PINFPOur Lady of the Sea Hospitalica Health SystemGlucose [Mass/Vol]125 mg/hRFzry16 - 99 mg/dLPaulding County Hospital SystemInterpretation and review of laboratory resultsAbnormalProKettering Healthca Health SystemPotassium [Moles/Vol]4.4 mmol/L 3.5 - 5.0 mmol/LProMedica Health SystemSodium [Moles/Vol]136 mmol/L134 - 146 mmol/LProMedica Health SystemUrea nitrogen [Mass/Vol]25 mg/dL5 - 27 mg/dL [facility] Hospitaledica Health SystemDelaware County Hospital Health SystemCBC WITH AUTO DIFFERENTIALon 21-47-0169WWRDOQJDI ABSOLUTE COUNT (10*3/UL) BY AUTOMATED COUNT0.1 10*3/uLNormal 0.0-0.2PMercy Health St. Charles HospitalComment on above:Performed By: #### CBCA ####[facility] ([facility])[address], [place] [address] VIRBASOPHILS RELATIVE PERCENT BY AUTOMATED COUNT0.6 %NormalProSouthwest General Health Center HospitalComment on above:Performed By: #### CBCA ####[facility] ([facility])[address], [place] [address] VIRCELLAVISION DIFFERENTIAL TYPEAUTOMATED DIFFERENTIALNormalProSouthwest General Health Center HospitalComment on above:Performed By: #### CBCA ####[facility] ([facility])[address], [place] [address] VIREosinophils (Bld) [#/Vol]0.0 10*3/uL Normal0.0-0.4[facility] HospitalComment on above:Performed By: #### CBCA ####[facility] ([facility])[address], [place] [address] VIREOSINOPHILS RELATIVE PERCENT BY AUTOMATED COUNT0.0 %NormalProSouthwest General Health Center HospitalComment on above:Performed By: #### CBCA ####[facility] ([facility])[address], [place] [address] VIRErythrocyte distribution width (RBC) [Ratio]13.6 %Vwhqve49.5-15[facility] on above:Performed By: #### CBCA ####[facility] ([facility])[address], [place] [address] VIRHematocrit (Bld) [Volume fraction]31.9 %Acz84-69OxiTntnxc [place] HospitalComment on above:Performed By: #### CBCA ####[facility] ([facility])[address], [place] [address] VIRHemoglobin (Bld) [Mass/Vol]10.8 g/yBGbw53-93MqfCuvzhu [place] HospitalComment on above:Performed By: #### CBCA ####[facility] ([facility])[address], [place] [address] VIRLYMPHOCYTES ABSOLUTE COUNT (10*3/UL) BY AUTOMATED COUNT0.9 10*3/uLLow1.0-3.5ProMedica Goochland HospitalComment on above:Performed By: #### CBCA ####[facility] ([facility])[address], [place] [address] VIRLYMPHOCYTES RELATIVE PERCENT BY AUTOMATED COUNT6.0 %NormalProKettering Healthca Goochland HospitalComment on above: Performed By: #### CBCA ####[facility] ([facility])[address], [place] [address] VIRMCH (RBC) [Entitic mass]31.0 qyWzhxod41-41 ProMedicSt. Mary's Medical Center[facility] Campus HospitalComment on above:Performed By: #### CBCA ####[facility] ([facility])[address], [place] [address] VIR MCHC (RBC) [Mass/Vol]33.8 g/lIHfynoj47-87PxmYrztcf [facility] HospitalComment on above:Performed By: #### CBCA ####[facility] ([facility])[address], [place] [address] VIRMCV (RBC) [Entitic vol]92 qNGhxwiq65-595 ProMSouthview Medical Center HospitalComment on above:Performed By: #### CBCA ####[facility] ([facility])[address], [place] [address] VIR MONOCYTES ABSOLUTE COUNT (10*3/UL) BY AUTOMATED COUNT1.4 10*3/uLHigh0.0-0.9 ProMcitizens baptista [facility] HospitalComment on above:Performed By: #### CBCA ####[facility] ([facility])[address], [place] [address] VIR MONOCYTES RELATIVE PERCENT BY AUTOMATED COUNT9.2 %NormalProKettering Healthca [place]land HospitalComment on above:Performed By: #### CBCA ####[facility] ([facility])[address]EN[facility] [place] [address] VIRNEUTROPHILS ABSOLUTE COUNT BY AUTOMATED COUNT12.4 10*3/uLHigh1.5-6.6[facility] HospitalComment on above:Performed By: #### CBCA ####[facility] ([facility])[address], [place] [address] VIRNEUTROPHILS RELATIVE PERCENT BY AUTOMATED COUNT84.2 %NormalProSouthwest General Health Center HospitalComment on above:Performed By: #### CBCA ####[facility] ([facility])[address] [facility] [address] [address] VIRPlatelet mean volume (Bld) [Entitic vol]8.0 fLNormal7-12 ProMSouthview Medical Center HospitalComment on above:Performed By: #### CBCA ####[facility] ([facility])[address] [facility] [address] [address] VIR Platelets (Bld) [#/Vol]165 10*3/mGLoipmp000-543MqyBfxlpt [place] HospitalComment on above:Performed By: #### CBCA ####[facility] ([facility])[address] [facility] [address], [place] [address] VIRRBC COUNT3.48 X10E12/LLow 4.1-5.7ProSouthwest General Health Center HospitalComment on above:Performed By: #### CBCA ####[facility] ([facility])[address] [address] VIRWBC (Bld) [#/Vol]14.8 10*3/uLHigh4-11ProSouthwest General Health Center HospitalComment on above:Performed By: #### CBCA ####[facility] ([facility])[address] [facility] [address] [address] VIRCBC auto differentialon 17-76-6337Kdswzvlpe (Bld) [#/Vol]0.1 10*3/uL0.0 - 0.2 10*3/uLProKettering Healthca [facility]omb HospitalBasophils/100 WBC (Bld)0.6 %[facility] NorthDifferential cell count method Nom (Bld)AUTOMATED DIFFERENTIALSelect Medical Specialty Hospital - [facility] NorthEosinophils (Bld) [#/Vol]0 10*3/uL0.0 - 0.4 10*3/uLSelect Medical Specialty Hospital - [facility] NorthEosinophils/100 WBC (Bld)0 %[facility] NorthErythrocyte distribution width (RBC) [Ratio]13.6 %11.5 - 15 %[facility] NorthHematocrit (Bld) [Volume fraction]31.9 %Low39 - 50 %[facility] NorthHemoglobin (Bld) [Mass/Vol]10.8 g/dLLow13 - 17 g/dL [facility] NorthInterpretation and review of laboratory resultsAbnormal [facility] NorthLymphocytes (Bld) [#/Vol]0.9 10*3/uLLow1.0 - 3.5 10*3/uL [facility] NorthLymphocytes/100 WBC (Bld)6 %[facility] NorthMCH (RBC) [Entitic mass]31 pg27 - 34 [facility] HospitalMCHC (RBC) [Mass/Vol] 33.8 g/dL32 - 36 g/dLSelect Medical Specialty Hospital - [facility] NorthMCV (RBC) [Entitic vol]92 fL80 - 100 [facility] HospitalMonocytes (Bld) [#/Vol]1.4 10*3/uLHigh0.0 - 0.9 10*3/uL [facility] NorthMonocytes/100 WBC (Bld)9.2 %[facility] Neutrophils (Bld) [#/Vol]12.4 10*3/uLHigh1.5 - 6.6 10*3/uLSelect Medical Specialty Hospital - [facility] NorthNeutrophils/100 WBC (Bld)84.2 %[facility] NorthPlatelet mean volume (Bld) [Entitic vol]8 fL7 - 12 [facility] HospitalPlatelets (Bld) [#/Vol] 165 10*3/uLSelect Medical Specialty Hospital - Cincinnati NorthRBC (Bld) [#/Vol]3.48 10*6/uLLowProMedica Health SystemWBC LM Ql (Sput)14.8HWhitinsville Hospitalca Health SystemProMedica Health SystemGas panel (BldA)on 37-82-3846Pbegjzdp patency Wrist artery --pre arterial puncturePassProMedica Health SystemBase deficit (Bld) [Moles/Vol]-5 mmol/LLow0.0 - 2.0 mmol/LProMedica Health SystemCO2 (Bld) [Partial pressure]39.6 mm[Hg] ProMedica Health SystemHCO3 (Bld) [Moles/Vol]20.6 mmol/LLow22.0 - 26.0 mmol/L [facility] Health SystemInterpretation and review of laboratory resultsAbnormal ProMedica Health SystemOxygen (Bld) [Partial pressure]74 mm[Hg]LowProMedica Health SystemOxygen therapy source and amount [CARE]NCProMedica Health System Oxygen/Inspired gas setting [Volume Fraction] Qvficnpjuu22 %ProMedica Health SystempH (Bld)7.324 [pH]Low7.350 - 7.450[facility] SystemSpecimen site NarrativeL [facility] Health SystemSpecimen type Nom (Spec)ARTERIALProMedica Health SystemProMedica Health SystemArterial patency Wrist artery --pre arterial puncturePassProMedica Health SystemBase deficit (Bld) [Moles/Vol]-3 mmol/LLow 0.0 - 2.0 mmol/LProMedica Health SystemCO2 (Bld) [Partial pressure]44.8 mm[Hg] ProMedica Health SystemHCO3 (Bld) [Moles/Vol]23 mmol/L22.0 - 26.0 mmol/L [facility] SystemInterpretation and review of laboratory resultsAbnormal [facility]Medica Health SystemOxygen (Bld) [Partial pressure]46 mm[Hg]Critically low [facility] Health SystemOxygen therapy source and amount [CARE]NCProMedica Health SystemOxygen/Inspired gas setting [Volume Fraction] Orkaveydwm57 %ProMedica Health SystempH (Bld)7.318 [pH]Low7.350 - 7.450[facility] SystemSpecimen site NarrativeR [facility] SystemSpecimen type Nom (Spec)ARTERIAL ProMedica Health SystemProMedica Health SystemXR CHEST 1 VWon 42-02-1991SR CHEST 1 VWXR CHEST 1 VW Portable upright single view chest dated to 04/16/2025 at 6:55 AM INDICATION: Hypoxia, low oxygen. FINDINGS: Comparison is 04/15/2025. Median sternotomy. Persistent left lower lobe infiltrates and/oratelectasis. Emphysematous changes. IMPRESSION: 1. Stable left lower lobe infiltrate and/or atelectasis. 2. Emphysema. Finalized by Jaden Gonzalez MD on 04/16/2025 7:22 AMNormalAvita Health SystemXR Chest Single viewon [id number]vlq Health System Radiology Study observation (narrative)[facility] NorthXR Chest Single viewOrdered By: Jaden Gonzalez on [id number] Medical Specialty [facility] North Work Phone: BASIC METABOLIC PANELon 76-32-0770Gmhus gap [Moles/Vol]6 mmol/LNormal5-15ProSouthwest General Health Center HospitalComment on above:Performed By: #### BMP ####[facility] ([facility])[address] [address] VIRCalcium [Mass/Vol]8.2 mg/dLLow8.5-10.5PMercy Health St. Charles HospitalComment on above:Performed By: #### BMP ####[facility] ([facility])[address] [address] VIRChloride [Moles/Vol] 110 mmol/POlvi55-519JnvRlwqmt [place] HospitalComment on above:Performed By: #### BMP ####[facility] ([facility])[address] [address] VIRCO2 [Moles/Vol]22 mmol/PKsgyfy47-50YyrMygglq [place] HospitalComment on above:Performed By: #### BMP ####[facility] ([facility])[address] [address] VIRCreatinine [Mass/Vol] 1.09 mg/dLNormal0.60-1.30[facility] Kaur HospitalComment on above:Result Comment: METHOD TRACEABLE TO IDMS STANDARDPerformed By: #### BMP ####[facility] ([facility])[address] [facility] [address] [address] VIR GFR/1.73 sq M.predicted among non-blacks MDRD (S/P/Bld) [Vol rate/Area]71 mL/min/{1.73_m2}Normal>=60ProUniversity Hospitals Health SystemComment on above:Result Comment: Reported eGFR is based on the CKD-EPI 2020 equation that does not use a race coefficient.Performed By: #### BMP ####[facility] ([facility])[address] [address] VIRGlucose [Mass/Vol]96 mg/zIUmigac85-68AwuGdzvov [place] HospitalComment on above:Performed By: #### BMP ####[facility] ([facility])[address] [place] [place] [address] VIRPotassium [Moles/Vol]4.2 mmol/LNormal3.5-5.0[facility] Comment on above:Performed By: #### BMP ####[facility] ([facility])[address] [address] VIRSodium [Moles/Vol]138 mmol/L Hjxuyc610-727UqyXyytqb [place] HospitalComment on above:Performed By: #### BMP ####[facility] ([facility])[address] [address] VIRUrea nitrogen [Mass/Vol]28 mg/dLHigh5-27[facility] Comment on above:Performed By: #### BMP ####[facility] ([facility])[address] [address] VIRBLOOD GAS, ARTERIALon 04-15-2025 BASE,DEFICIT-6.0 mmol/LLow0.0-2.0ProUniversity Hospitals Health SystemComment on above: Performed By: #### ABG ####[facility] ([facility])[address] [place] [address] VIRHCO3 (Bld) [Moles/Vol]20.6 mmol/LLow22.0-26.0ProMedica Kaur HospitalComment on above:Performed By: #### ABG ####[facility] ([facility])[address] [place] [address] VIRINSP. O2 CONC.70 %Normal [facility]oochland HospitalComment on above:Performed By: #### ABG ####[facility] ([facility])[address] [place] [address] VIROxygen saturation in Blood91.0 %Normal>90.0ProMedica Goochland HospitalComment on above:Performed By: #### ABG ####[facility] ([facility])[address] [place] [address] VIRPCO2 XSCVKFNQ91.9 scDoCprd65.0-45.0ProMedica Goochland HospitalComment on above:Performed By: #### ABG ####[facility] ([facility])[address] [place] [address] VIRPH ARTERIAL7.833Hoc8.350-7.450[facility] Comment on above:Performed By: #### ABG ####[facility] ([facility])[address] [place] [address] VIRPO2 EUSDVESZ83 ubZoCxl01-600HvdFpgeyq G[facility]chland HospitalComment on above:Performed By: #### ABG ####[facility] ([facility])[address] [place] [address] VIRPOC IZABEL'S TESTPassNormal [facility]Medica Kaur HospitalComment on above:Performed By: #### ABG ####[facility] ([facility])[address] [place] [address] VIRSAMPLE SITER Rad NormalProMedica Goochland HospitalComment on above:Performed By: #### ABG ####[facility] ([facility])[address] [place] [address] VIRSAMPLE TYPEARTERIALNormalAvita Health SystemComment on above:Performed By: #### ABG ####[facility] ([facility])[address] [place] [address] VIR SOURCE OF OXYGENNCNormalAvita Health SystemComment on above:Performed By: #### ABG ####[facility] ([facility])[address] [place] [address] VIRBasic Metabolic Panelon 08-17-8281Rhtok gap [Moles/Vol]6 mmol/L5 - 15 mmol/L [facility] SystemCalcium [Mass/Vol]8.2 mg/dLLow8.5 - 10.5 mg/dLPaulding County Hospital SystemChloride [Moles/Vol]110 mmol/LHigh98 - 109 mmol/LProMedica Health SystemCO2 [Moles/Vol]22 mmol/L22 - 32 mmol/[facility] SystemCreatinine [Mass/Vol]1.09 mg/dL0.60 - 1.30 mg/dLPaulding County Hospital SystemEGFR Non-Race Kgkjwhgwa97- PINFPTuscarawas Hospital SystemGlucose [Mass/Vol]96 mg/dL65 - 99 mg/dL [facility] SystemInterpretation and review of laboratory resultsAbnormal [facility] SystemPotassium [Moles/Vol]4.2 mmol/L3.5 - 5.0 mmol/LProMedica Health SystemSodium [Moles/Vol]138 mmol/L134 - 146 mmol/[facility] HospitaloMedica Health System Urea nitrogen [Mass/Vol]28 mg/dLHigh5 - 27 mg/dLPaulding County Hospital SystemPaulding County Hospital SystemCBC WITH AUTO DIFFERENTIALon 24-33-3279HCOXKIPOF ABSOLUTE COUNT (10*3/UL) BY AUTOMATED COUNT0.1 10*3/uLNormal0.0-0.2PMercy Health St. [facility] Comment on above:Performed By: #### CBCA ####[facility] ([facility])[address], [place] [address] VIRBASOPHILS RELATIVE PERCENT BY AUTOMATED COUNT0.6 %NormalProSouthwest General Health Center HospitalComment on above:Performed By: #### CBCA ####[facility] ([facility])[address], [place] [address] VIRCELLAVISION DIFFERENTIAL TYPEAUTOMATED DIFFERENTIALNormal [facility]chland HospitalComment on above:Performed By: #### CBCA ####[facility] ([facility])[address], [place] [address] VIR Eosinophils (Bld) [#/Vol]0.3 10*3/uLNormal0.0-0.4[facility] on above:Performed By: #### CBCA ####[facility] ([facility])[address], [place] [address] VIREOSINOPHILS RELATIVE PERCENT BY AUTOMATED COUNT2.7 %NormalProSouthwest General Health Center HospitalComment on above:Performed By: #### CBCA ####[facility] ([facility])[address], [place] [address] VIRErythrocyte distribution width (RBC) [Ratio]14.0 %Normal 11.5-15ProSouthwest General Health Center HospitalComment on above:Performed By: #### CBCA ####[facility] ([facility])[address], [place] [address] VIRHematocrit (Bld) [Volume fraction]34.3 %Upp37-48HteEuthxp [place] HospitalComment on above:Performed By: #### CBCA ####[facility] ([facility])[address], [place] [address] VIRHemoglobin (Bld) [Mass/Vol]11.4 g/dCGsr19-08CruMimyar [place] HospitalComment on above:Performed By: #### CBCA ####[facility] ([facility])[address], [place] [address] VIRLYMPHOCYTES ABSOLUTE COUNT (10*3/UL) BY AUTOMATED COUNT 1.4 10*3/uLNormal1.0-3.5PMercy Health St. Charles HospitalComment on above:Performed By: #### CBCA ####[facility] ([facility])[address], [place] [address] VIRLYMPHOCYTES RELATIVE PERCENT BY AUTOMATED COUNT14.4 % NormalAvita Health SystemComment on above:Performed By: #### CBCA ####[facility] ([facility])[address], [place] [address] VIRMCH (RBC) [Entitic mass]31.5 exLhkvbx56-10SqqNfyguyAvita Health System Comment on above:Performed By: #### CBCA ####[facility] ([facility])[address], [place] [address] VIRMCHC (RBC) [Mass/Vol]33.4 g/dL Xahqdk71-20ZasErbqizAvita Health SystemComment on above:Performed By: #### CBCA ####[facility] ([facility])[address], [place] [address] VIRMCV (RBC) [Entitic vol]94 oQSibylw00-464HmsHjritkAvita Health System Comment on above:Performed By: #### CBCA ####[facility] ([facility])[address], [place] [address] VIRMONOCYTES ABSOLUTE COUNT (10*3/UL) BY AUTOMATED COUNT1.1 10*3/uLHigh0.0-0.9[facility] Comment on above:Performed By: #### CBCA ####[facility] ([facility])[address], [place] [address] VIRMONOCYTES RELATIVE PERCENT BY AUTOMATED COUNT11.7 %NormalAvita Health SystemComment on above:Performed By: #### CBCA ####[facility] ([facility])[address], [place] [address] VIRNEUTROPHILS ABSOLUTE COUNT BY AUTOMATED COUNT6.8 10*3/uL High1.5-6.6ProKettering Healthca Goochland HospitalComment on above:Performed By: #### CBCA ####[facility] ([facility])[address], [place] [address] VIRNEUTROPHILS RELATIVE PERCENT BY AUTOMATED COUNT70.6 %NormalProSouthwest General Health Center HospitalComment on above:Performed By: #### CBCA ####[facility] ([facility])[address] [place] [address] VIRPlatelet mean volume (Bld) [Entitic vol]8.0 fLNormal7-12Pro[facility]ica [facility]ch[facility] HospitalComment on above:Performed By: #### CBCA ####[facility] ([facility])[address] [address] VIRPlatelets (Bld) [#/Vol]155 10*3/uLNormal 150-450ProSouthwest General Health Center HospitalComment on above:Performed By: #### CBCA ####[facility] ([facility])[address] [place] [address] VIRRBC COUNT3.64 X10E12/LLow4.1-5.7ProSouthwest General Health Center HospitalComment on above:Performed By: #### CBCA ####[facility] ([facility])[address] [place] [address] VIRWBC (Bld) [#/Vol]9.6 10*3/uLNormal4-11 [facility] HospitalComment on above:Performed By: #### CBCA ####[facility] ([facility])[address], [place] [address] VIR CBC auto differentialon 79-86-3498Ygyteuqng (Bld) [#/Vol]0.1 10*3/uL0.0 - 0.2 10*3/uLProMedica Wayne Healthcare Main Campus SystemBasophils/100 WBC (Bld)0.6 %[facility] NorthDifferential cell count method Nom (Bld)AUTOMATED DIFFERENTIALSelect Medical Specialty Hospital - Cincinnati NorthEosinophils (Bld) [#/Vol]0.3 10*3/uL0.0 - 0.4 10*3/uLSelect Medical Specialty Hospital - Cincinnati NorthEosinophils/100 WBC (Bld)2.7 %[facility] NorthErythrocyte distribution width (RBC) [Ratio]14 %11.5 - 15 %[facility] NorthHematocrit (Bld) [Volume fraction]34.3 %Low39 - 50 %[facility] NorthHemoglobin (Bld) [Mass/Vol]11.4 g/dLLow13 - 17 g/dLSelect Medical Specialty Hospital - [facility] NorthInterpretation and review of laboratory resultsAbnormalSelect Medical Specialty Hospital - [facility] NorthLymphocytes (Bld) [#/Vol]1.4 10*3/uL1.0 - 3.5 10*3/[facility] Medical CenterLymphocytes/100 WBC (Bld)14.4 %[facility] NorthMCH (RBC) [Entitic mass]31.5 pg27 - 34 pg [facility] NorthMCHC (RBC) [Mass/Vol]33.4 g/dL32 - 36 g/dLSelect Medical Specialty Hospital - [facility] NorthMCV (RBC) [Entitic vol]94 fL80 - 100 [facility] Monocytes (Bld) [#/Vol]1.1 10*3/uLHigh0.0 - 0.9 10*3/[facility] Monocytes/100 WBC (Bld)11.7 %[facility] NorthNeutrophils (Bld) [#/Vol]6.8 10*3/uLHigh1.5 - 6.6 10*3/[facility] Medical CenterNeutrophils/100 WBC (Bld) 70.6 %[facility] NorthPlatelet mean volume (Bld) [Entitic vol]8 fL7 - 12 [facility] HospitalPlatelets (Bld) [#/Vol]155 10*3/[facility] Medical CenterRBC (Bld) [#/Vol]3.64 10*6/uLLowSelect Medical Specialty Hospital - Cincinnati NorthWBC LM Ql (Sput)9.[address] [facility] SystemGas panel (BldA)on 04-15-2025 Arterial patency Wrist artery --pre arterial puncturePassSelect Medical Specialty Hospital [facility] North Base deficit (Bld) [Moles/Vol]-6 mmol/LLow0.0 - 2.0 mmol/LProMedica Health SystemCO2 (Bld) [Partial pressure]45.9 mm[Hg]HighProMercy Health St. Anne Hospital SystemHCO3 (Bld) [Moles/Vol]20.6 mmol/LLow22.0 - 26.0 mmol/LProMedica Health System Interpretation and review of laboratory resultsAbnormalPaulding County Hospital System Oxygen (Bld) [Partial pressure]70 mm[Hg]LowPaulding County Hospital SystemOxygen therapy source and amount [CARE]NCProMercy Health St. Anne Hospital SystemOxygen/Inspired gas setting [Volume Fraction] Ypgqvwsodf63 %[facility] NorthpH (Bld)7.26 [pH]Low7.350 - 7.450M[facility] Centerpecpiedmont [facility] hospital site NarrativeR Brown Memorial Hospitalpecpiedmont [facility] hospital type Nom (Spec)ARTERIALProAurora Medical Center SystemPOTASSIUMon 49-53-1463Ntmdoglhy [Moles/Vol]4.3 mmol/LNormal3.5-5.0 [facility] SystemComment on above:Performed By: #### K ####[facility] (TT)[address] [address] VIR Potassiumon 37-12-0150Syfmatrsvtmaut and review of laboratory resultsNormal [facility] NorthPotassium [Moles/Vol]4.3 mmol/L3.5 - 5.0 mmol/LProMedica Carolina Center for Behavioral Health SystemXR CHEST 1 VWon 68-63-8976HD CHEST 1 VWXR CHEST 1 VW History: Rib fractures. Follow-up. EXAM: Chest AP portable upright IMPRESSION: A 1225 FINDINGS: Sternotomy, chronic lung markings, small left pleural effusion, left rib fractures. No pneumothorax. No developing infiltrates or worsening pleural effusions. IMPRESSION: Stable exam. Finalized by Lucas Khan MD on 04/15/2025 5:58 PMNormalAvita Health SystemXR CHEST 1 VWXR CHEST 1 VW Single view chest History:Trauma injury; Mult rib Fxs Difficulty breathing, shortness of breath Comparison: 04/14/2025 Findings: Single portable view of the chest. Bilateral lower lung atelectasis versus pneumonia. There is small left pleural effusion which has increased. Mild vascular congestion. Impression: Increasing left greater than right lower lung atelectasis versus pneumonia with small left pleural effusion. Finalized by Jerson Tipton MD on 04/15/2025 7:36 AMNormalAvita Health SystemXR Chest Single viewon [id number] Health System Radiology Study observation (narrative)[facility] CenterECTRALyons VA Medical CenterRadiology Study observation (narrative)[facility] NorthXR Chest Single viewOrdered By: Lucas Khan on 39-93-1831BptZtistcSelect Medical Specialty Hospital [facility] North Work Phone: XR Chest Single viewOrdered By: Jerson Tipton on 38-07-2561LspWieaemSelect Medical Specialty Hospital - [facility] North Work Phone: ABO Rh Repeaton 08-79-6447JPP and Rh group Nom (Bld)A [facility] NorthAB and Rh group Nom (Bld)PositiveJefferson HospitalAMYLASEon 74-43-9343Yqprzsv [Catalytic activity/Vol]32 U/VVtxlbh58-153ZalEdcpvsAvita Health SystemComment on above:Performed By: #### AMYL #### [facility] ([facility]) [address] [place] [address] VIRAPTTon 47-03-1723aNZP Coag (PPP) [Time]25 sLowSelect Medical Specialty Hospital - Cincinnati NorthInterpretation and review of laboratory resultsAbnormalSelect Medical Specialty Hospital - [facility] NorthaPTT Coag (Bld) [Time]25 mCzy64-69RabUbnqrkAvita Health SystemComment on above:Performed By: #### PTT ####[facility] ([facility])[address], [place] [address] VIRAmylaseon 96-59-0654Mpqojmg (S/P/Bld) [Catalytic activity/Vol]32 U/L28 - 100 U/LPrPike Community Hospital Interpretation and review of laboratory resultsNormalSelect [facility] BASIC METABOLIC PANELon 19-04-1758Bgkpg gap [Moles/Vol]7 mmol/LNormal5-15 [facility] SystemComment on above:Performed By: #### BMP ####[facility] ([facility])[address] [address] VIR Calcium [Mass/Vol]8.5 mg/dLNormal8.5-10.5PMercy Health St. Charles HospitalComment on above:Performed By: #### BMP ####[facility] ([facility])[address] [address] VIRChloride [Moles/Vol]109 mmol/KKhqwzr97-540 [facility] SystemComment on above:Performed By: #### BMP ####[facility] ([facility])[address] [address] VIRCO2 [Moles/Vol]23 mmol/CDcahls90-66IrcCdjqye [place] HospitalComment on above: Performed By: #### BMP ####[facility] ([facility])[address] [address] VIRCreatinine [Mass/Vol]1.25 mg/dLNormal 0.60-1.30ProUniversity Hospitals Health SystemComment on above:Result Comment: METHOD TRACEABLE TO IDMS STANDARDPerformed By: #### BMP ####[facility] ([facility])[address] [address] VIRGFR/1.73 sq M.predicted among non-blacks MDRD (S/P/Bld) [Vol rate/Area]60 mL/min/{1.73_m2} Normal>=60ProUniversity Hospitals Health SystemComment on above:Result Comment: Reported eGFR is based on the CKD-EPI 2020 equation that does not use a race coefficient.Performed By: #### BMP ####[facility] ([facility])[address] [address] VIRGlucose [Mass/Vol]98 mg/dLKdoovh56-37KuzLoazlw [place] HospitalComment on above:Performed By: #### BMP ####[facility] ([facility])[address] [address] VIRPotassium [Moles/Vol]5.1 mmol/LHigh3.5-5.0[facility] Comment on above:Performed By: #### BMP ####[facility] ([facility])[address] [address] VIRSodium [Moles/Vol]139 mmol/L Eddudr151-746AgiCbuqms [place] HospitalComment on above:Performed By: #### BMP ####[facility] ([facility])[address] [address] VIRUrea nitrogen [Mass/Vol]33 mg/dLHigh5-27[facility] Comment on above:Performed By: #### BMP ####[facility] ([facility])[address] [address] VIRBEDSIDE GLUCOSEon 04-14-2025 Glucose [Mass/Vol]103 mg/fDRryo83-77XauMcoimb [place] HospitalComment on above: Performed By: #### BEDG ####[facility] ([facility])[address] [place] [address] VIRGlucose [Mass/Vol]246 mg/uYUsfm55-01NtcNoierv [place] HospitalComment on above:Performed By: #### BEDG ####[facility] ([facility])[address] [place] [address] VIRGlucose [Mass/Vol]141 mg/xCWard33-33 [facility] HospitalComment on above:Performed By: #### BEDG ####[facility] ([facility])[address] [place] [address] VIRBLOOD GAS, ARTERIALon 50-40-0045QITJ,DEFICIT-5.0 mmol/LLow0.0-2.0[facility] Comment on above:Performed By: #### ABG ####[facility] ([facility])[address] [place] [address] VIRHCO3 (Bld) [Moles/Vol]21.5 mmol/LLow 22.0-26.0ProMedica [facility] HospitalComment on above:Performed By: #### ABG ####[facility] ([facility])[address] [place] [address] VIRINSP. O2 CONC.70 %NormalProKettering Healthca Goochland HospitalComment on above:Performed By: #### ABG ####[facility] ([facility])[address] [place] [address] VIR Oxygen saturation in Blood91.0 %Normal>90.0ProKettering Healthca Goochland HospitalComment on above:Performed By: #### ABG ####[facility] ([facility])[address] [place] [address] VIRPCO2 QJKQXPGE46.7 axBpUiojvu44.0-45.0ProKettering Healthca Goochland HospitalComment on above:Performed By: #### ABG ####[facility] ([facility])[address] [place] [address] VIRPH ARTERIAL7.585Cgn3.350-7.450 [facility] HospitalComment on above:Performed By: #### ABG ####[facility] ([facility])[address] [place] [address] VIRPO2 KHLEBHDG70 czLiMyo43-357HznIkwsca Goochland HospitalComment on above:Performed By: #### ABG ####[facility] ([facility])[address] [place] [address] VIRPOC IZABEL'S TESTPassNormalProMedica Goochland HospitalComment on above:Performed By: #### ABG ####[facility] ([facility])[address] [place] [address] VIRSAMPLE SITEL RadNormalAvita Health SystemComment on above:Performed By: #### ABG ####[facility] ([facility])[address] [place] [address] VIRSAMPLE TYPEARTERIALNoChildren's Hospital of ColumbusComment on above:Performed By: #### ABG ####[facility] ([facility])[address] [place] [address] VIRSOURCE OF OXYGENNCNormalAvita Health SystemComment on above: Performed By: #### ABG ####[facility] ([facility])[address] [place] [address] VIRBasic Metabolic Panelon 68-33-2894Cmcnv gap [Moles/Vol]7 mmol/L5 - 15 mmol/[facility] SystemCalcium [Mass/Vol]8.5 mg/dL8.5 - 10.5 mg/dLSelect Medical Specialty Hospital - Cincinnati NorthChloride [Moles/Vol]109 mmol/L98 - 109 mmol/L [facility] NorthCO2 [Moles/Vol]23 mmol/L22 - 32 mmol/[facility] SystemCreatinine [Mass/Vol]1.25 mg/dL0.60 - 1.30 mg/dLSelect [facility] EGFR Non-Race Plqdpxmbs76- PINPremier Health Upper [facility] Medical [facility] SystemGlucose [Mass/Vol]98 mg/dL 65 - 99 mg/dLSelect Medical Specialty Hospital - [facility] NorthInterpretation and review of laboratory resultsAbnormalSelect Medical Specialty Hospital [facility] NorthPotassium [Moles/Vol]5.1 mmol/LHigh3.5 - 5.0 mmol/LPrWeisbrod Memorial County Hospital Health SystemSodium [Moles/Vol]139 mmol/L134 - 146 mmol/L [facility] NorthUrea nitrogen [Mass/Vol]33 mg/dLHigh5 - 27 mg/dLMagee Rehabilitation HospitalBedside Glucose *Place/Obtain serum glucose if >500 per glucometer.on 64-04-0628Ppixuqj [Mass/Vol]103 mg/hUApjn32 - 99 mg/dLSelect Medical Specialty Hospital - [facility] NorthInterpretation and review of laboratory results AbnormalProHaven Behavioral HealthcareGlucose [Mass/Vol]246 mg/sPMpss52 - 99 mg/dLPaulding County Hospital SystemInterpretation and review of laboratory resultsAbnormalMagee Rehabilitation HospitalGlucose [Mass/Vol]141 mg/lQVtyk80 - 99 mg/dLSelect Medical Specialty Hospital - [facility] NorthInterpretation and review of laboratory resultsAbnormalMagee Rehabilitation HospitalCBC WITH AUTO DIFFERENTIALon 62-33-5184IJELUCTNI ABSOLUTE COUNT (10*3/UL) BY AUTOMATED COUNT0.1 10*3/uLNormal0.0-0.2PMercy Health St. Charles HospitalCommclaren bay special care hospital on above:Result Comment: This is an appended report. These results have been appended to a previously preliminary verified report.Performed By: #### CBCA ####[facility] ([facility])[address] [address] VIRBASOPHILS RELATIVE PERCENT BY AUTOMATED COUNT0.7 %NormalAvita Health SystemCommclaren bay special care hospital on above:Result Comment: This is an appended report. These results have been appended to a previously preliminary verified report. Performed By: #### CBCA ####[facility] ([facility])[address], [place] [address] VIRCELLAVISION DIFFERENTIAL TYPEAUTOMATED DIFFERENTIALJ.W. Ruby Memorial HospitalCommclaren bay special care hospital on above:Result Comment: This is an appended report. These results have been appended to a previously prelimi nary verified report.Performed By: #### CBCA ####[facility] ([facility])[address], [place] [address] VIRCELLAVISION RBC MORPHOLOGYNormalNormalAvita Health SystemCommclaren bay special care hospital on above:Result Comment: This is an appended report. These results have been appended to a previously preliminary verified report.Performed By: #### CBCA ####[facility] ([facility])[address], [place] [address] VIREosinophils (Bld) [#/Vol]0.0 10*3/uLNormal0.0-0.4Avita Health SystemComment on above:Result Comment: This is an appended report. These results have been appended to a previously preliminary verified report.Performed By: #### CBCA ####[facility] ([facility])[address] [facility], [place] [address] VIR EOSINOPHILS RELATIVE PERCENT BY AUTOMATED COUNT0.2 %NormalAvita Health SystemComment on above:Result Comment: This is an appended report. These results have been appended to a previously preliminary verified report.Performed By: #### CBCA ####[facility] ([facility])[address], [place] [address] VIRErythrocyte distribution width (RBC) [Ratio]13.6 %Normal 11.5-15ProUniversity Hospitals Health SystemComment on above:Performed By: #### CBCA ####[facility] ([facility])[address], [place] [address] VIRHematocrit (Bld) [Volume fraction]38.1 %Nsq72-73HybNcsbbp [place] HospitalComment on above:Performed By: #### CBCA ####[facility] ([facility])[address], [place] [address] VIRHemoglobin (Bld) [Mass/Vol]12.7 g/hQGhm04-35ElkHtfgeiUniversity Hospitals Health SystemComment on above:Performed By: #### CBCA ####[facility] ([facility])[address] [address] VIRLYMPHOCYTES ABSOLUTE COUNT (10*3/UL) BY AUTOMATED COUNT 1.3 10*3/uLNormal1.0-3.5PMercy Health St. Charles HospitalComment on above:Result Comment: This is an appended report. These results have been appended to a previously preliminary verified report.Performed By: #### CBCA ####[facility] ([facility])[address], [place] [address] VIR LYMPHOCYTES RELATIVE PERCENT BY AUTOMATED COUNT9.3 %NormalProSouthwest General Health Center HospitalComment on above:Result Comment: This is an appended report. These results have been appended to a previously preliminary verified report.Performed By: #### CBCA ####[facility] ([facility])[address], [place] [address] VIRMCH (RBC) [Entitic mass]31.3 ozOfkqnb09-29FybYvpogx [place] HospitalComment on above:Performed By: #### CBCA ####[facility] ([facility])[address] [facility] [facility], [place] [address] VIRMCHC (RBC) [Mass/Vol]33.4 g/tNNuhgec89-27EonEvkhdg [place] HospitalComment on above: Performed By: #### CBCA ####[facility] ([facility])[address], [place] [address] VIRMCV (RBC) [Entitic vol]94 jUAqxxve65-863 ProMSouthview Medical Center HospitalComment on above:Performed By: #### CBCA ####[facility] ([facility])[address] [facility] [facility], [place] [address] VIR MONOCYTES ABSOLUTE COUNT (10*3/UL) BY AUTOMATED COUNT1.7 10*3/uLHigh0.0-0.9 Avita Health SystemComment on above:Result Comment: This is an appended report. These results have been appended to a previously preliminary verified report.Performed By: #### CBCA ####[facility] ([facility])[address] [facility] [facility], [place] [address] VIRMONOCYTES RELATIVE PERCENT BY AUTOMATED COUNT12.6 %NormalProSouthwest General Health Center HospitalComment on above:Result Comment: This is an appended report. These results have been appended to a previously prelimi nary verified report.Performed By: #### CBCA ####[facility] ([facility])[address], [place] [address] VIRNEUTROPHILS ABSOLUTE COUNT BY AUTOMATED COUNT10.7 10*3/uLHigh1.5-6.6Avita Health SystemComment on above:Result Comment: This is an appended report. These results have been appended to a previously preliminary verified report.Performed By: #### CBCA ####[facility] ([facility])[address], [place] [address] VIRNEUTROPHILS RELATIVE PERCENT BY AUTOMATED COUNT77.2 %NormalProUniversity Hospitals Health SystemComment on above:Result Comment: This is an appended report. These results have been appended to a previously preliminary verified report. Performed By: #### CBCA ####[facility] ([facility])[address], [place] [address] VIRPlatelet mean volume (Bld) [Entitic vol]8.0 fLNormal7-12ProMedica [facility]oochland HospitalComment on above:Performed By: #### CBCA ####[facility] ([facility])[address], [place] [address] VIRPlatelets (Bld) [#/Vol]227 10*3/lLGumoos454-304NabNaepuk [place] HospitalComment on above:Performed By: #### CBCA ####[facility] ([facility])[address], [place] [address] VIRRBC COUNT4.06 X10E12/LLow4.1-5.7ProSouthwest General Health Center HospitalComment on above:Performed By: #### CBCA ####[facility] ([facility])[address], [place] [address] VIRWBC (Bld) [#/Vol]13.8 10*3/uLHigh4-11ProSouthwest General Health Center HospitalComment on above:Performed By: #### CBCA ####[facility] ([facility])[address], [place] [address] VIRBASOPHILS ABSOLUTE COUNT (10*3/UL) BY AUTOMATED COUNT0.1 10*3/uLNormal0.0-0.2Pro[facility]ica [facility] HospitalCommclaren bay special care hospital on above:Result Comment: This is an appended report. These results have been appended to a previously preliminary verified report.Performed By: #### CBCA #### [facility] ([facility]) [address] [place] [address] VIRBASOPHILS RELATIVE PERCENT BY AUTOMATED COUNT0.4 %Normal Avita Health SystemComment on above:Result Comment: This is an appended report. These results have been appended to a previously preliminary verified report.Performed By: #### CBCA #### [facility] ([facility]) [address] [place] [address] VIRCELLAVISION DIFFERENTIAL TYPEAUTOMATED DIFFERENTIALNormal [facility]ita Health SystemCommclaren bay special care hospital on above:Result Comment: This is an appended report. These results have been appended to a previously preliminary verified report.Performed By: #### CBCA #### [facility] ([facility]) [address] [place] [address] VIRCELLAVISION RBC MORPHOLOGYNormalNormalProUniversity Hospitals Health SystemComment on above:Result Comment: This is an appended report. These results have been appended to a previously preliminary verified report.Performed By: #### CBCA #### [facility] ([facility]) [address] [place] [address] VIREosinophils (Bld) [#/Vol]0.0 10*3/uLNormal0.0-0.4ProKettering Healthca [facility] HospitalCommclaren bay special care hospital on above:Result Comment: This is an appended report. These results have been appended to a previously preliminary verified report. Performed By: #### CBCA #### [facility] ([facility]) [address] [place] [address] VIREOSINOPHILS RELATIVE PERCENT BY AUTOMATED COUNT0.1 %Normal [facility] Health SystemCommclaren bay special care hospital on above:Result Comment: This is an appended report. These results have been appended to a previously preliminary verified report.Performed By: #### CBCA #### [facility] ([facility]) [address] [place] [address] VIRErythrocyte distribution width (RBC) [Ratio]13.7 %Normal 11.5-15ProSouthwest General Health Center HospitalComment on above:Performed By: #### CBCA #### [facility] ([facility]) [address] [place] [address] VIRHematocrit (Bld) [Volume fraction]39.3 %Byywmp02-89CpkTmphoj [facility]chland HospitalComment on above:Performed By: #### CBCA #### [facility] ([facility]) [address] [place] [address] VIRHemoglobin (Bld) [Mass/Vol]13.2 g/iQSzikoo43-88VbmOqtjdh [place] HospitalComment on above:Performed By: #### CBCA #### [facility] ([facility]) [address] [place] [address] VIRLYMPHOCYTES ABSOLUTE COUNT (10*3/UL) BY AUTOMATED COUNT0.8 10*3/uLLow1.0-3.5PMercy Health St. Charles HospitalComment on above:Result Comment: This is an appended report. These results have been appended to a previously prelimi nary verified report.Performed By: #### CBCA #### [facility] ([facility]) [address] [place] [address] VIRLYMPHOCYTES RELATIVE PERCENT BY AUTOMATED COUNT5.3 %Normal Pro[facility]chland HospitalComment on above:Result Comment: This is an appended report. These results have been appended to a previously preliminary verified report.Performed By: #### CBCA #### [facility] ([facility]) [address] [place] [address] VIRMCH (RBC) [Entitic mass]31.4 ppArhzqy46-29CzxVqdlqv [place] HospitalComment on above:Performed By: #### CBCA #### [facility] ([facility]) [address] [place] [address] VIRMCHC (RBC) [Mass/Vol]33.6 g/qTLulvgs38-97IwqHuitxv [place] HospitalComment on above:Performed By: #### CBCA #### [facility] ([facility]) [address] [place] [address] VIRMCV (RBC) [Entitic vol]94 oNUlvnoh61-782GurOtagvb [facility] HospitalComment on above:Performed By: #### CBCA #### [facility] ([facility]) [address] [place] [address] VIRMONOCYTES ABSOLUTE COUNT (10*3/UL) BY AUTOMATED COUNT1.6 10*3/uLHigh0.0-0.9ProSouthwest General Health Center HospitalComment on above:Result Comment: This is an appended report. These results have been appended to a previously prelimi nary verified report.Performed By: #### CBCA #### [facility] ([facility]) [address] [place] [address] VIRMONOCYTES RELATIVE PERCENT BY AUTOMATED COUNT9.9 %Normal [facility] HospitalComment on above:Result Comment: This is an appended report. These results have been appended to a previously preliminary verified report.Performed By: #### CBCA #### [facility] ([facility]) [address] [place] [address] VIRNEUTROPHILS ABSOLUTE COUNT BY AUTOMATED COUNT13.3 10*3/uL High1.5-6.6ProSouthwest General Health Center HospitalComment on above:Result Comment: This is an appended report. These results have been appended to a previously preliminary verified report.Performed By: #### CBCA #### [facility] ([facility]) [address] [place] [address] VIRNEUTROPHILS RELATIVE PERCENT BY AUTOMATED COUNT84.3 %Normal [facility] HospitalComment on above:Result Comment: This is an appended report. These results have been appended to a previously preliminary verified report.Performed By: #### CBCA #### [facility] ([facility]) [address] [place] [address] VIRPlatelet mean volume (Bld) [Entitic vol]7.7 fLNormal7-12 [facility] Health SystemComment on above:Performed By: #### CBCA #### [facility] ([facility]) [address] [place] [address] VIRPlatelets (Bld) [#/Vol]216 10*3/pBDnlphb748-529NefGpoqeqAvita Health SystemComment on above:Performed By: #### CBCA #### [facility] ([facility]) [address] [place] [address] VIRRBC COUNT4.20 X10E12/LNormal4.1-5.7[facility] Comment on above:Performed By: #### CBCA #### [facility] ([facility]) [address] [place] [address] VIRWBC (Bld) [#/Vol]15.8 10*3/uLHigh4-11Av[facility] Health SystemComment on above:Performed By: #### CBCA #### [facility] ([facility]) [address] [place] [address] VIRCBC auto differentialon [id number] (Bld) [#/Vol]0.1 10*3/uL0.0 - 0.2 10*3/uLProMercy Health St. Anne Hospital SystemBasophils/100 WBC (Bld)0.7 % [facility] NorthDifferential cell count method Nom (Bld)AUTOMATED DIFFERENTIALSelect Medical Specialty Hospital - [facility] NorthEosinophils (Bld) [#/Vol]0 10*3/uL0.0 - 0.4 10*3/uLProMediUniversity Hospitals Geauga Medical Center SystemEosinophils/100 WBC (Bld)0.2 %[facility]Medica Health SystemErythrocyte distribution width (RBC) [Ratio]13.6 %11.5 - 15 %[facility] NorthHematocrit (Bld) [Volume fraction]38.1 %Low39 - 50 %[facility] NorthHemoglobin (Bld) [Mass/Vol]12.7 g/dLLow13 - 17 g/dLSelect Medical Specialty Hospital - [facility] NorthInterpretation and review of laboratory resultsAbnormalSelect Medical Specialty Hospital - [facility] NorthLymphocytes (Bld) [#/Vol]1.3 10*3/uL1.0 - 3.5 10*3/uLSelect Medical Specialty Hospital - Cincinnati NorthLymphocytes/100 WBC (Bld)9.3 %[facility] NorthMCH (RBC) [Entitic mass]31.3 pg27 - 34 [facility] HospitalMCHC (RBC) [Mass/Vol]33.4 g/dL32 - 36 g/dLSelect Medical Specialty Hospital - [facility] NorthMCV (RBC) [Entitic vol]94 fL80 - 100 [facility] HospitalMonocytes (Bld) [#/Vol]1.7 10*3/uLHigh0.0 - 0.9 10*3/uLSelect Medical Specialty Hospital - [facility] NorthMonocytes/100 WBC (Bld)12.6 %[facility] NorthNeutrophils (Bld) [#/Vol]10.7 10*3/uLHigh1.5 - 6.6 10*3/uLSelect Medical Specialty [facility] North Neutrophils/100 WBC (Bld)77.2 %[facility] NorthPlatelet mean volume (Bld) [Entitic vol]8 fL7 - 12 [facility] HospitalPlatelets (Bld) [#/Vol]227 10*3/uLSelect Medical Specialty Hospital - [facility] NorthRBC (Bld) [#/Vol]4.06 10*6/uLLowSelect Medical Specialty Hospital - [facility] NorthRBC (Bld) [#/Vol]NormalSelect Medical Specialty Hospital - [facility] NorthWBC LM Ql (Sput)13.8High [facility] HospitalBasophils (Bld) [#/Vol]0.1 10*3/uL 0.0 - 0.2 10*3/uLSelect Medical Specialty Hospital - [facility] NorthBasophils/100 WBC (Bld)0.4 %[facility] NorthDifferential cell count method Nom (Bld)AUTOMATED DIFFERENTIAL [facility] NorthEosinophils (Bld) [#/Vol]0 10*3/uL0.0 - 0.4 10*3/uL [facility] NorthEosinophils/100 WBC (Bld)0.1 %[facility] Erythrocyte distribution width (RBC) [Ratio]13.7 %11.5 - 15 %[facility] NorthHematocrit (Bld) [Volume fraction]39.3 %39 - 50 %[facility] Hemoglobin (Bld) [Mass/Vol]13.2 g/dL13 - 17 g/dLSelect Medical Specialty [facility] Interpretation and review of laboratory resultsAbnormalSelect [facility] Lymphocytes (Bld) [#/Vol]0.8 10*3/uLLow1.0 - 3.5 10*3/uLSelect Medical Specialty Hospital [facility] North Lymphocytes/100 WBC (Bld)5.3 %[facility] NorthMCH (RBC) [Entitic mass] 31.4 pg27 - 34 [facility] HospitalMCHC (RBC) [Mass/Vol]33.6 g/dL32 - 36 g/dLSelect Medical Specialty Hospital - [facility] NorthMCV (RBC) [Entitic vol]94 fL80 - 100 [facility] HospitalMonocytes (Bld) [#/Vol]1.6 10*3/uLHigh0.0 - 0.9 10*3/uLSelect Medical Specialty Hospital - [facility] NorthMonocytes/100 WBC (Bld)9.9 %[facility] NorthNeutrophils (Bld) [#/Vol]13.3 10*3/uLHigh1.5 - 6.6 10*3/uLSelect Medical Specialty Hospital [facility] Neutrophils/100 WBC (Bld)84.3 %[facility] NorthPlatelet mean volume (Bld) [Entitic vol]7.7 fL7 - 12 [facility] HospitalPlatelets (Bld) [#/Vol]216 10*3/uLSelect Medical Specialty Hospital - [facility] NorthRBC (Bld) [#/Vol]4.2 10*6/uLSelect Medical Specialty Hospital - [facility] NorthRBC (Bld) [#/Vol]NormalSelect Medical Specialty Hospital - [facility] NorthWBC LM Ql (Sput)15.8HClinch Valley Medical CenterProWyandot Memorial HospitalCOMPREHENSIVE METABOLIC PANELon [id number] [Mass/Vol]4.1 g/dLNormal3.2-5.3PSt. [facility] on above:Performed By: #### CMP #### [facility] ([facility]) [address] [place] [address] VIRALP [Catalytic activity/Vol]70 U/ZWohxuv99-039MihImialx [place] HospitalComment on above:Performed By: #### CMP #### [facility] ([facility]) [address] [place] [address] VIRALT [Catalytic activity/Vol]15 U/LNormal<=40ProSouthwest General Health Center HospitalComment on above:Performed By: #### CMP #### [facility] ([facility]) [address] [place] [address] VIRAnion gap [Moles/Vol]9 mmol/LNormal5-15ProSouthwest General Health Center HospitalComment on above:Performed By: #### CMP #### [facility] ([facility]) [address] [place] [address] VIRAST [Catalytic activity/Vol]18 U/LNormal<=41ProUniversity Hospitals Health SystemComment on above:Performed By: #### CMP #### [facility] ([facility]) [address] [place] [address] VIRBilirubin [Mass/Vol]0.4 mg/dLNormal0.3-1.2PMercy Health St. Charles HospitalComment on above:Performed By: #### CMP #### [facility] ([facility]) [address] [place] [address] VIRCalcium [Mass/Vol]8.6 mg/dLNormal8.5-10.5PPremier Health HospitalComment on above:Performed By: #### CMP #### [facility] ([facility]) [address] [place] [address] VIRChloride [Moles/Vol]109 mmol/HLduxgd94-076WmvFftgac [place] HospitalComment on above:Performed By: #### CMP #### [facility] ([facility]) [address] [place] [address] VIRCO2 [Moles/Vol]23 mmol/LHazlkd89-95GycXtknab [place] [facility] Comment on above:Performed By: #### CMP #### [facility] ([facility]) [address] [place] [address] VIRCreatinine [Mass/Vol]1.28 mg/dLNormal0.60-1.30ProSouthwest General Health Center HospitalComment on above:Result Comment: METHOD TRACEABLE TO IDMS STANDARDPerformed By: #### CMP #### [facility] ([facility]) [address] [place] [address] VIRGFR/1.73 sq M.predicted among non-blacks MDRD (S/P/Bld) [Vol rate/Area]59 mL/min/{1.73_m2}Low>=60ProUniversity Hospitals Health SystemComment on above: Result Comment: Reported eGFR is based on the CKD-EPI 2020 equation that does not use a race coefficient.Performed By: #### CMP #### [facility] ([facility]) [address] [place] [address] VIRGlucose [Mass/Vol]135 mg/vNYurn33-23ShoCxjsfp [place] HospitalComment on above:Performed By: #### CMP #### [facility] ([facility]) [address] [place] [address] VIRPotassium [Moles/Vol]5.3 mmol/LHigh3.5-5.0ProUniversity Hospitals Health SystemComment on above:Performed By: #### CMP #### [facility] ([facility]) [address] [place] [address] VIRProtein [Mass/Vol]7.4 g/dLNormal6.0-8.0ProSouthwest General Health Center HospitalComment on above:Performed By: #### CMP #### [facility] ([facility]) [address] [place] [address] VIRSodium [Moles/Vol]141 mmol/MQmkazs197-099XgbGdqdoy [place] HospitalComment on above:Performed By: #### CMP #### [facility] ([facility]) [address] [place] [address] VIRUrea nitrogen [Mass/Vol]29 mg/dLHigh5-27ProUniversity Hospitals Health SystemComment on above:Performed By: #### CMP #### [facility] ([facility]) [address] [place] [address] VIRComprehensive metabolic panelon [id number] [Mass/Vol] 4.1 g/dL3.2 - 5.3 g/dLProKettering Healthca Health SystemALP [Catalytic activity/Vol]70 U/L 39 - 130 U/LProMedica Health SystemALT No additional P-5'-P [Catalytic activity/Vol]15 U/LNINF - 40 U/LProMedica Health SystemAnion gap [Moles/Vol]9 mmol/L5 - 15 mmol/LProMedica Health SystemAST [Catalytic activity/Vol]18 U/LNINF - 41 U/LProMedica Health SystemBilirubin [Mass/Vol]0.4 mg/dL0.3 - 1.2 mg/dL ProMedica Health SystemCalcium [Mass/Vol]8.6 mg/dL8.5 - 10.5 mg/dLProMedica Health SystemChloride [Moles/Vol]109 mmol/L98 - 109 mmol/LProMedica Health SystemCO2 [Moles/Vol]23 mmol/L22 - 32 mmol/LProMedica Health SystemCreatinine [Mass/Vol]1.28 mg/dL0.60 - 1.30 mg/dLProKettering Healthca Health SystemEGFR Non-Race Ildgukphw48Msh- PINFPOur Lady of the Sea Hospitalica [facility] SystemGlucose [Mass/Vol]135 mg/gYPatr88 - 99 mg/dLProKettering Healthca Health SystemPotassium [Moles/Vol]5.3 mmol/LHigh3.5 - 5.0 mmol/LProMedica Health SystemProtein [Mass/Vol]7.4 g/dL6.0 - 8.0 g/dLProMercy Health St. Anne Hospital SystemSodium [Moles/Vol]141 mmol/L134 - 146 mmol/LProMedica [facility] System Urea nitrogen [Mass/Vol]29 mg/dLHigh5 - 27 mg/dLPaulding County Hospital SystemDRUG SCREEN, URINEon [id number]/METHAMPNegativeNormalNegativeProMedica Kaur HospitalComment on above:Order Comment: Confirmation available upon request.Result Comment: AMPH/METH screening cut off = 1000 ng/mLPerformed By: #### DSU ####[facility] ([facility])[address] [address] VIRBARBITURATESNegativeNormalNegativeProMedica Kaur HospitalComment on above:Order Comment: Confirmation available upon request. Result Comment: Barbiturates screening cut off value = 200 ng/mLPerformed By: #### DSU ####[facility] ([facility])[address] [address] VIRBENZODIAZEPINESNegativeNormalNegativeProMedica Kaur HospitalComment on above:Order Comment: Confirmation available upon request. Result Comment: Benzodiazepines screening cut off value = 200 ng/mLPerformed By: #### DSU ####[facility] ([facility])[address] [address] [address] VIRCANNABINOIDSNegativeNormalNegativeProMedica Kaur HospitalComment on above:Order Comment: Confirmation available upon request. Result Comment: Cannabinoids/THC screening cut off value = 50 ng/mLPerformed By: #### DSU ####[facility] ([facility])[address] [facility] [address] VIRCOCAINE METABOLITENegativeNormalNegativeProMedica Kaur HospitalComment on above:Order Comment: Confirmation available upon request. Result Comment: Cocaine screening cut off value = 300 ng/mLPerformed By: #### DSU ####[facility] ([facility])[address] [facility] [address], [place] [address] VIRECSTASYNegativeNormalNegativeProMedica Goochland HospitalComment on above:Order Comment: Confirmation available upon request.Result Comment: Ecstasy screening cut off value = 500 ng/mLPerformed By: #### DSU ####[facility] ([facility])[address] [facility] [facility] [facility] [address] VIRMETHADONE NegativeNormalNegativeProMedica Kaur HospitalComment on above:Order Comment: Confirmation available upon request.Result Comment: Methadone screening cut off value = 300 ng/mL.Performed By: #### DSU ####[facility] ([facility])[address] [facility] [address] VIROPIATESPositiveAbnormalNegative ProMedica Goochland HospitalComment on above:Order Comment: Confirmation available upon request.Result Comment: Opiates screening cut off value = 300 ng/mL This test is used for the detection of codeine, hydrocodone (>1000 ng/mL), morphine and hydromorphone (>900 ng/mL) in urine.Performed By: #### DSU ####[facility] ([facility])[address] [facility] [facility] [facility] [address] VIR OXYCODONENegativeNormalNegativeProMedica Goochland HospitalComment on above:Order Comment: Confirmation available upon request.Result Comment: Oxycodone screening cut off value = 300 ng/mL This test is used for the detection of oxycodone and oxymorphone in urine.Performed By: #### DSU ####[facility] ([facility])[address] [facility] [address] [address] VIRPHENCYCLIDINE NegativeNormalNegativeProMedica Goochland HospitalComment on above:Order Comment: Confirmation available upon request.Result Comment: Phencyclidine screening cut off value = 25 ng/mLPerformed By: #### DSU ####[facility] ([facility])[address] [facility] [address] [address] VIRDrug Screen, Urineon 82-96-3919Cmertenfiynx Screen method >1000 ng/mL Ql (U)NegativeNegativeProMedica Health SystemBarbiturates Screen Ql (U)NegativeNegativeProMedica Health System Benzodiazepines Ql (U)NegativeNegativeProMedica Health SystemCocaine Ql (U) NegativeNegativeProMedica Health SystemInterpretation and review of laboratory resultsAbnormalProMedica Health SystemMethadone (Mec) [Mass/Mass]Negative NegativeProMedica Health SystemMethylenedioxymethamphetamine Screen Ql (U) NegativeNegativeProMedica Health SystemOpiates Ql (U)PositiveAbnormalNegative ProMedica Health SystemoxyCODONE [Mass/Vol]NegativeNegativeProMedica Health SystemPhencyclidine Screen method >25 ng/mL Ql (U)NegativeNegativeProMedica Health SystemTetrahydrocannabinol Screen method >50 ng/mL Ql (U)NegativeNegative Pro[facility]ica Health SystemProMedica Health SystemProMedica Health SystemECG 12 lead on 07-22-1236RMBMHHBPDBWGKGMoyEvriio Health SystemETHANOLon 78-96-2070Kotetkr [Mass/Vol]mg/dLNormal<=0.080ProUniversity Hospitals Health SystemComment on above:Result Comment: This report is intended for use in clinical monitoring or management of patients.Performed By: #### ALCO #### [facility] ([facility]) [address] [place] [address] VIREthanolon 60-51-7878Nhhkvim Ql (U)g/dLNINF - 0.080 g/dL [facility] SystemInterpretation and review of laboratory resultsNormal [facility] Rehabilitation HospitalFIBRINOGENon 81-51-3427YOTCQLHPPF 377 mg/eMWejoho151-314KvsDtovueAvita Health SystemComment on above:Performed By: #### FIBR #### [facility] ([facility]) [address] [place] [address] VIRFibrinogenon 17-50-4152Pamyzfxoci Coagulation.derived (PPP) [Mass/Vol]377 mg/dL190 - 480 mg/dLProMedica Health SystemGas panel (BldA)on 52-73-6178Kjzlzxqh patency Wrist artery --pre arterial puncturePassSelect Medical Specialty Hospital - Cincinnati NorthBase deficit (Bld) [Moles/Vol]-5 mmol/LLow0.0 - 2.0 mmol/LPrUniversity Hospitals Geneva Medical Center SystemCO2 (Bld) [Partial pressure]42.7 mm[Hg][facility] NorthHCO3 (Bld) [Moles/Vol]21.5 mmol/LLow22.0 - 26.0 mmol/LPrUniversity Hospitals Geneva Medical Center System Interpretation and review of laboratory resultsAbnormHolzer Health System Oxygen (Bld) [Partial pressure]68 mm[Hg]LowSelect Medical Specialty Hospital - Cincinnati NorthOxygen therapy source and amount [CARE]NCSelect Medical Specialty Hospital - Cincinnati NorthOxygen/Inspired gas setting [Volume Fraction] Ckpvujpkek34 %[facility] NorthpH (Bld)7.31 [pH]Low7.350 - 7.450Paulding County [facility] SystemSpecimen site NarrativeL RadMission Family Health Centerpecimen type Nom (Spec)ARTERIALProHaven Behavioral HealthcareHEMOGLOBIN A1Con 48-89-7787Eodxbqd [Mass/Vol]117 mg/dLNoChildren's Hospital of ColumbusComment on above:Performed By: #### BONNIE1C ####[facility] ([facility])[address] [address] TNQCtC7i (Bld) [Mass fraction]5.7 %High4.4-5.6Avita Health SystemComment on above:Result Comment: ADA Guidelines Result HgbA1c Normal : less than 5.7 % Prediabetes : 5.7 % to 6.4 % Diabetes : > 6.4 % Use with caution in patients with abnormal hemoglobin variants as the half-life of red blood cells and in vivo glycation rates are affected.Performed By: #### HA1C ####[facility] ([facility])[address] [address] VIRHemoglobin A1con 04-14-2025 Average glucose Estimated from glycated hemoglobin (Bld) [Mass/Vol]117 mg/dL [facility] NorthHbA1c (Bld) [Mass fraction]5.7 %High4.4 - 5.6 %[facility] NorthInterpretation and review of laboratory resultsAbnoMeadows Psychiatric CenterLIPASEon 21-38-6470Aulhts [Catalytic activity/Vol]10 U/DAxd41-94UviJnxeetAvita Health SystemComment on above:Performed By: #### LIPA #### [facility] ([facility]) [address] [place] [address] VIRLipaseon 52-00-4891Wyjaro [Catalytic activity/Vol]10 U/LLow 82 U/LProMedToledo HospitalNo Panel Informationon 04-14-2025 Interpretation and review of laboratory resultsNoSt. Francis Medical CenterInterpretation and review of laboratory resultsAbnormal [facility] SystemOrders Onlyon 87-83-6324Qbbezo [id number] Doc Burns 1950 M Date Provider Department [place] 04/14/2025 [id number], HISTORICAL CARD Jessica Hos Family History Problem Relation Age of Onset Diabetes Mother Heart disease Mother Heart disease Father Coronary artery disease Sister Family Status - Relation Status Age at Mother Father SisterNormalUniversity of Doctors Hospital Of LaredoPOTASSIUMon 60-84-2206Glhajglbe [Moles/Vol]4.2 mmol/LNormal3.5-5.0Avita Health SystemComment on above: Performed By: #### K ####[facility] ([facility])[address], [place] [address] VIRPROTIME AND INRon 46-84-9034NYW0.0Normal 0.9-1.2PMercy Health St. Charles HospitalComment on above:Performed By: #### PINR #### [facility] ([facility]) [address] [place] [address] VIRPT Coag (PPP) [Time]11.1 sNormal9.8-13.2ProMedica Kaur HospitalComment on above:Performed By: #### PINR #### [facility] ([facility]) [address] [place] [address] VIRPotassiumon 76-52-8294Vauvkxbnobgciw and review of laboratory resultsNormalSelect Medical Specialty Hospital - Cincinnati NorthPotassium [Moles/Vol]4.2 mmol/L 3.5 - 5.0 mmol/LProMedMile Bluff Medical Center SystemProtime & INRon 00-51-9845JLT Coag (Platelet poor plasma or blood) [Relative time]10.9 - 1.2 [facility] NorthPT Coag (PPP) [Time]11.1 [facility] HospitalTYPE AND SCREENon 77-51-1119VQF_MCMUSTWbkxsrCguMkywju [place] HospitalComment on above: Performed By: #### TSC ####[facility] ([facility])[address] [place] [address] VIRPerformed By: #### ABORHR ####[facility] ([facility])[address] [place] [address] VIRRH_INTEPPositiveNormalMain Campus Medical Center HospitalComment on above:Performed By: #### TSC ####[facility] ([facility])[address] [place] [address] VIRPerformed By: #### ABORHR ####[facility] ([facility])[address] [place] [address] VIRType and screen(includes indirect adán)on 19-89-2577BXJ and Rh group Nom (Bld)A [facility] NorthABO and Rh group Nom (Bld)PositiveSelect Medical Specialty Hospital - Cincinnati North Blood group antibody screen.cells I+II+III QlNegativeJefferson HospitalURINALYSISon 47-14-5904Mzwzcpvqh Ql (U)NegativeNormal NegativeProSouthwest General Health Center HospitalComment on above:Performed By: #### UA ####[facility] ([facility])[address], [place] [address] VIRBLOOD/HGBNegativeNormalNegativeProMedica Kaur HospitalComment on above:Performed By: #### UA ####[facility] ([facility])[address], [place] [address] VIRColor (U)YellowNormalYellowProMedica Kaur HospitalComment on above:Performed By: #### UA ####[facility] ([facility])[address], [place] [address] VIRGlucose Ql (U) NegativeNormalNegativeProMedica Kaur HospitalComment on above:Performed By: #### UA ####[facility] ([facility])[address], [place] [address] VIRKetones Ql (U)NegativeNormalNegativeProMedica Kaur HospitalComment on above:Performed By: #### UA ####[facility] ([facility])[address], [place] [address] VIRLeukocyte esterase Test strip Ql (U)NegativeNormalNegativeProMedica Kaur HospitalComment on above:Performed By: #### UA ####[facility] ([facility])[address], [place] [address] VIRNitrite Ql (U)NegativeNormalNegative ProMedica Kaur HospitalComment on above:Performed By: #### UA ####[facility] ([facility])[address], [place] [address] VIR PH,URINE6.0Dpurgo2.0-8.5ProMedica Kaur HospitalComment on above:Performed By: #### UA ####[facility] ([facility])[address], [place] [address] VIRProtein Ql (U)TraceAbnormalNegativeProMedica Kaur HospitalComment on above:Performed By: #### UA ####[facility] ([facility])[address] [facility] [facility] [address], [place] [address] VIRR.B.EFLUI4Pxguod0-8 ProMcitizens baptista Goochland HospitalComment on above:Performed By: #### UA ####[facility] ([facility])[address] [facility] [facility], [place] [address] VIR Specific gravity (U) [Rel density]1.571Pwwpkw2.003-1.035ProSouthwest General Health Center HospitalComment on above:Performed By: #### UA ####[facility] ([facility])[address] [facility] [facility] [address], [place] [address] VIRTURBIDITYClearNormal ClearProSouthwest General Health Center HospitalComment on above:Performed By: #### UA ####[facility] ([facility])[address] [facility] [facility] [address], [place] [address] VIR UROBILINOGEN<1.1 eu/dLNormal<1.1 eu/dLProSouthwest General Health Center HospitalComment on above: Performed By: #### UA ####[facility] ([facility])[address] [facility] [facility] [address], [place] [address] VIRW.B.RUURF4Xsfioy9-2PbhTatnru [place] [facility] Comment on above:Performed By: #### UA ####[facility] ([facility])[address] [facility] [facility], [place] [address] VIRUrinalysisOrdered By: Gennaro Sutherland on 98-53-2313Zvobweumh Ql (U)NegativeNegativeProMedica Health SystemColor (U) YellowYellowProMedica Health SystemGlucose (U) [Mass/Vol]NegativeNegative [facility] SystemHemoglobin Auto test strip Ql (U)NegativeNegative [facility] SystemInterpretation and review of laboratory resultsAbnormal ProMedica Health SystemKetones (U) [Mass/Vol]NegativeNegativeProMedica Health SystemLeukocyte esterase Auto test strip Ql (U)NegativeNegativeProMedica Health SystemNitrite Auto test strip Ql (U)NegativeNegativeProMedica Health SystempH (U)6 [pH]5.0 - 8.5ProMedica Health SystemProtein (U) [Mass/Vol]TraceAbnormal NegativeProWyandot Memorial HospitalRBC Auto (Urine sed) [#/Area]10 - 5PBlue Ridge Regional Hospitalpecific gravity Refractometry automated (U) [Rel density]1.028 1.003 - 1.035[facility] NorthTurbidity Ql (U)ClearClearPAvita Health System Ontario HospitalUrobilinogen Qn (U){Rina'U}/dL<1.1 eu/dLSelect Medical Specialty Hospital - Cincinnati NorthWBC Auto (Urine sed) [#/Area]10 - 5PHeritage Valley Health SystemXR CHEST 1 VWon 78-33-7898BM CHEST 1 VWXR CHEST 1 VW CHEST ONE VIEW COMPARISON: Chest x-ray 04/14/2025 at 0009 hours, CT chest 04/13/2025 HISTORY: Left-sided rib fractures, left-sided hemothorax. History of cancer of trachea, bronchus and lung. FINDINGS: Portable AP chest radiograph demonstrates no pneumothorax. Cardiomediastinal silhouette and pulmonary vasculature are stable. Midline sternotomy wires. Left atrial appendage closure device and prosthetic heart valve. No evidence for focal consolidation or pleural effusion. Diffuse prominence of theinterstitium consistent with emphysema. Increased prominence of the interstitium could be secondaryto development of interstitial edema or could be due to differences in technique. IMPRESSION: 1. Emphysema. Increased diffuse interstitial prominence, which could be due to differences in technique or superimposed interstitial edema. 2. No evidence for residual left pleural effusion. Known left rib fractures are not well-visualizedon this exam. No pneumothorax. Finalized by Aron Feldman MD on 04/14/2025 4:05 [facility] - ColumbusXR CLAVICLE LTon 00-93-1252CF CLAVICLE LTXR CLAVICLE LT History: Clavicle fracture Exam/Technique: 2 views of the left clavicle were obtained. 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 The clavicle itself is intact. The previous described fracture of the scapula is partially visualized. IMPRESSION: Fracture of the coracoid process of the scapula. Otherwise normal clavicle. Finalized by Krzysztof Rojas MD on 04/14/2025 4:02 [facility] ColumbusXR Chest Single viewon 39-42-8536ZXBAHYDYINDycEqbqcuPenn [facility] Radiology Study observation (narrative)[facility] NorthXR Chest Single viewOrdered By: Aron Feldman on 34-94-6431XbmRfgaruSelect Medical Specialty Hospital - Cincinnati North Work Phone: XR Clavicle - left Viewson 29-78-7994EGFFCASSHRMercy Hospital Hot SpringsRadiology Study observation (narrative)[facility] NorthXR Clavicle - left ViewsOrdered By: Krzysztof Rojas on 51-89-2867OcnEtbyvmSelect Medical Specialty Hospital - Cincinnati North Work Phone: XR SHOULDER LT MIN 2 VWSon 46-06-5786IB SHOULDER LT MIN 2 VWSXR SHOULDER LT MIN 2 VWS History: Fracture Exam/Technique: 3 views of the left shoulder were obtained. Comparison: Study was correlated with a CT examination from outside facility dated 1024 Findings: There is a displaced fracture of the coracoid process. The remainder the visualized osseous structures are intact. No dislocation is demonstrated. There are osteoarthritic changes about theacromioclavicular joint. IMPRESSION: Displaced fracture of the coracoid process of the scapula. Finalized by Krzysztof Rojas MD on 04/14/2025 4:03 [facility] ColumbusXR Shoulder - left 2 Viewson 60-45-3521OFBCXDFNBMTodOdezueSt. Francis Medical CenterRadiology Study observation (narrative)[facility] Cincinnati NorthNM NAIF PERF SPECT REST STRon 61-66-5983Ltb[place] [address] Nuclear Medicine Report Signed Patient: DOC BURNS MR#: [id number] : 1950 Acct:[id number] Age/Sex: 75 / M ADM Date: 04/07/25 Loc: [place] Attending Dr: JJ AYOUB Ordering Physician: JJ AYOUB Date of Service: 04/07/25 Procedure(s): NM naif perf SPECT rest str Accession Number(s): [id number] cc: Jean-Claude Heaton CYBER SOFTWARE ENGINEER; JJ AYOUB Patient Name: DOC BURNS MR#: [id number] : 1950 Exam Date: 04/07/2025 Ordering Doctor: DR JJ AYOUB M.D. RADIOLOGY REPORT PROCEDURE: NM NAIF PERF SPECT REST STR COMPARISON: None. INDICATIONS: [...] the study was pending per attending physician [facility] . For more details please see separate [...] M.D. Signed By: 04/11/251805 DD/ 04 TD/TT: Commercial Real Estate Appraiser:NATTYadiologrenee, Radiologist, - 04/11/2025 [place] [address] Nuclear Medicine Report Signed Patient: DOC BURNS MR#: [id number] : 1950 Acct:[id number] Age/Sex: 75 / M ADM Date: 04/07/25 Loc: NM Attending Dr: JJ AYOUB Ordering Physician: JJ AYOUB Date of Service: 04/07/25 Procedure(s): NM naif perf SPECT rest str Accession Number(s): [id number] cc: Jean-Claude Heaton CYBER SOFTWARE ENGINEER; JJ AYOUB Patient Name: DOC BURNS MR#: [id number] : 1950 Exam Date: 04/07/2025 Ordering Doctor: DR JJ AYOUB M.D. RADIOLOGY REPORT PROCEDURE: NM NAIF PERF SPECT REST STR COMPARISON: None. INDICATIONS: [...] the study was pending per attending physician [facility] . For more details please see separate [...] M.D. Signed By: 04/11/251805 DD/ 04 TD/TT: Commercial Real Estate Appraiser: SHEILA HealthcareRadiology Study observation (narrative)SHEILA HealthcareNM NAIF PERF SPECT REST STROrdered By: Radiologist Radiology on 72-99-5979[facility] Work Phone: Office Visiton [phone]-up [id number] Doc Burns 1950 M Date Provider Department Center 03/31/2025 Ni-JJ AYOUB [facility] Jessica Friedman Family History Problem Relation Age of Onset Diabetes Mother Heart disease Mother Heart disease Father Coronary artery disease Sister Family Status - Relation Status Age at Mother Father Sister Level of Service:[address] [place] OFFICE/OUTPATIENT ESTABLISHED MOD [facility] HospitalCNPNon 55-96-9716VMFTAyyrnrigr (HEMTSA) DOC BURNS ([id number]) 1950 M Date Time Provider Department 03/27/25 LINETTE BAI HEMTSA During your visit today, we recorded the [...] C34.80] Order(s):COMPREHENSIVE METABOLIC PANEL [SQCMP] Order #: [id number] FUTURE COMPLETE BLOOD COUNT AND DIFFERENTIAL [SQCBCDIF] Order #: [id number] FUTURE FERRITIN [SQFERR] Order #: [id number] FUTURE IRON AND TIBC [SQIRON] Order #: [id number] FUTURE FOLATE, SERUM [SQSERFOL] Order #: [id number] FUTURE VITAMIN B12 [SQB12] Order #: [id number] FUTURE Prescriptions as of 03/27/2025 - sertraline (ZOLOFT) 50 mg tablet Take 50 mg by mouth once daily. - Cyanocobalamin-Cobamamide (B-12 PLUS) 5,000-100 mcg subl Dissolve [...] daily. - nitroglycerin subling (more content not included)...NormalMercy Health Anderson Hospital ECHO DOPPLER COMPLETEon 07-93-8980Hg[address] [address] Cardiology Report Signed Patient: DOC BURNS MR#: [id number] : 1950 Acct:[id number] Age/Sex: 74 / M ADM Date: 02/21/25 Loc: CARD Attending Dr: JJ AYOUB Ordering Physician: JJ AYOUB Date of Service: 02/21/25 Procedure(s): CA echo doppler complete Accession Number(s): [id number] cc: Jean-Claude Heaton CYBER SOFTWARE ENGINEER; JJ AYOUB Patient Name: DOC BURNS MR#: [id number] : 1950 Exam Date: 02/21/2025 Ordering Doctor: DR JJ AYOUB M.D. ECHOCARDIOGRAM REPORT PROCEDURE: CA ECHO [...] Pressure: 50.75 ml, 50.75 ml Dictated by: Jj Ayoub M.D. on 02/21/2025 at 18:40 Approved by: Jj Ayoub M.D. on 02/21/2025 at 18:44 (more content not included)...TBHRadiology, Radiologist, - 02/21/2025 [place] [address] Cardiology Report Signed Patient: DOC BURNS MR#: [id number] : 1950 Acct:[id number] Age/Sex: 74 / M ADM Date: 02/21/25 Loc: CARD Attending Dr: JJ AYOUB Ordering Physician: JJ AYOUB Date of Service: 02/21/25 Procedure(s): CA echo doppler complete Accession Number(s): [id number] cc: Jean-Claude Heaton CYBER SOFTWARE ENGINEER; JJ AYOUB Patient Name: DOC BURNS MR#: [id number] : 1950 Exam Date: 02/21/2025 Ordering Doctor: DR JJ AYOUB M.D. ECHOCARDIOGRAM REPORT PROCEDURE: CA ECHO [...] Pressure: 50.75 ml, 50.75 ml Dictated by: Jj Ayoub M.D. on 02/21/2025 at 18:40 Approved by: Jj Ayoub M.D. on 02/21/2025 at 18:44 Dictated By: JJ AYOUB Signed By: 02/21/251844 DD/ 43 TD/TT: Commercial Real Estate Appraiser: SHEILA HealthcareRadiology Study observation (narrative)SHEILA KendallCA ECHO DOPPLER COMPLETEOrdered By: Radiologist Radiology on 35-30-6216VBNW [employer] Work Phone: cNOVSPon [phone] (SP) Office (HEMASA) DOC BURNS ([id number]) 1950 M Date Time Provider Department 02/06/25 1:00 PM LINETTE BAI During your visit today, we recorded the following information about you: Temperature Pulse Respiration Blood pressure 97.8 degrees 62/minute 16/minute 128/72 Weight Height 81.5 kg 1.676 m Linette Bai MD 02/06/2025 1:21 PM Signed NAME: Doc Burns CLINIC NO.: [id number] DATE OF SERVICE: February 06, 2025 [facility] Some elements in this clinic note that are critical to medical decision making have been carefully reviewed and included from a prior clinic note dated: November 07, 2024 (Zac) Referring Provider: Dr. Shaikh Etienne Additional Clinicians involved in Doc Burns's care: Richard Lentz DO DIAGNOSIS: lung cancer ASSESSMENT: 74 [...] Continue Levsin as prescribed. 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 (more content not included)...NormalClinton Memorial HospitalCT ABD/PEL W IVCONon 01-31-2025* * *Final Report* * * DATE OF EXAM: Jan 30 2025 2:25PM [facility] 0530 - CT ABD/PEL W IVCON / [...] any questions regarding this interpretation, please call [phone]. If you are unable to reach us at the number above, please feel free to contact [facility] at [phone]. [id number]^AGFA_IDC^SI^ACNCCFRadiology, RadiologistMD - 01/31/2025 * * *Final Report* * * DATE OF EXAM: Jan 30 2025 2:25PM [facility] 0530 - CT ABD/PEL W IVCON / [...] any questions regarding this interpretation, please call [phone]. If you are unable to reach us at the number above, please feel free to contact [facility] eRadiology at [phone]. [id number]^AGFA_IDC^SI^ACN NOM HealthcareCT ABD/PEL W IVCONOrdered By: Radiologist Radiology on 01-31-2025 [facility] Inquirly Work Phone: ct Chest W contrast Beth 01-31-2025* * *Final Report* * * DATE OF EXAM: Jan 30 2025 2:25PM [facility] 0539 - CT CHEST W IVCON / [...] any questions regarding this interpretation, please call [phone]. If you are unable to reach us at the number above, please feel free to contact [facility] Hospitaliology at [phone]. [id number]^AGFA_IDC^SI^ACNCCFRadiology, Radiologist, - 01/31/2025 * * *Final Report* * * DATE OF EXAM: Jan 30 2025 2:25PM [facility] [place] 0539 - CT CHEST W IVCON / [...] any questions regarding this interpretation, please call [phone]. If you are unable to reach us at the number above, please feel free to contact [facility] at [phone]. [id number]^AGFA_IDC^SI^ACN NOMS HealthcareCT Chest W contrast IVOrdered By: Radiologist Radiology on 90-26-2904[facility] Work Phone: FERRITINon [phone] [Mass/Vol]187 ng/mL30.3 - 565.7 ng/mLCleveland ClinicFOLATE, SERUMon 87-66-9721Jzqlks [Mass/Vol]12.6 ng/mL4.7 - PINF ng/mLCleveland ClinicIron and Iron binding capacity panelon 09-72-0563Irazyevjlroqjw and review of laboratory resultsNormalCUpper Valley Medical Center Iron [Mass/Vol]67 ug/dL41 - 186 ug/dLAcmc Healthcare SystemIron binding capacity [Mass/Vol]329 ug/dL232 - 386 ug/dLAcmc Healthcare SystemIron/TIBC [Molar ratio]20.4 % 15.0 - 57.0 %[facility] CenterNo Panel Informationon 01-31-2025 Interpretation and review of laboratory resultsNormalCleveland Premier Health Atrium Medical CenterVITAMIN B12on 98-81-4982Azfvctkds (Vitamin B12) [Mass/Vol]277 pg/mL232 - 1245 pg/mLCleveland ClinicCBC W Auto Differential panel (Bld)on 01-30-2025 Basophils (Bld) [#/Vol]0.05 10*3/uLNINFAcmc Healthcare SystemDifferential cell count method Nom (Bld)AutoCleveland ClinicEosinophils (Bld) [#/Vol]0.28 10*3/uLNINF Acmc Healthcare SystemImmature granulocytes (Bld) [#/Vol]0.06 10*3/uLNINFAcmc Healthcare SystemImutture granulocytes/100 WBC (Bld)0.7 %Acmc Healthcare SystemLymphocytes (Bld) [#/Vol]2.03 10*3/uLChardon ClinicMonocytes (Bld) [#/Vol]1.17 10*3/uLHighNINF [facility]c Healthcare SystemNeutrophils (Bld) [#/Vol]5.08 10*3/uLChardon ClinicNucleated RBC (Bld) [#/Vol]NINFCleveland ClinicNucleated RBC/100 WBC (Bld) [Ratio]0 %/100 WBCAcmc Healthcare SystemPlatelet mean volume (Bld) [Entitic vol]9.1 fL9.0 - 12.7 fL [facility]c Healthcare SystemPlatelets (Bld) [#/Vol]225 10*3/uLAcmc Healthcare SystemWBC (Bld) [#/Vol]8.67 10*3/uLAcmc Healthcare SystemBasophils (Bld) [#/Vol]0.05 10*3/uLNormal <0.11CSelect [facility] [place] on above:Order Comment: Specimen Type: BLOOD SPECIMENOrdering Facility: [facility] Address:[address] [place], [place] [address]Performed By: #### 36016-5 ####[facility] LABCLIA [id number] [place] [address] Basophils/100 WBC (Bld)0.6 %NormalBerger Hospital on above: Order Comment: Specimen Type: BLOOD SPECIMENOrdering Facility: [facility] Address:[address] [place], [place] [address]Performed By: #### 04881- 8 ####[facility] LABCLIA [id number] [place], [place] [address]Mplmkdadkftu cell count method Nom (Bld)AutoNormal [facility] on above:Order Comment: Specimen Type: BLOOD SPECIMENOrdering Facility: [facility] Address:[address] [place], [place] [address]Performed By: #### 94840-7 ####[facility] LABCLIA [id number] [place], [place] [address]Lftadggilnu (Bld) [#/Vol]0.28 10*3/uLNormal<0.46[facility] on above: Order Comment: Specimen Type: BLOOD SPECIMENOrdering Facility: [facility] Address:[address] [place], [place] [address]Performed By: #### 02906- 8 ####[facility] LABCLIA [id number] [place], [place] [address]Bfxfabclazi/100 WBC (Bld)3.2 %NormalBerger Hospital on above:Order Comment: Specimen Type: BLOOD SPECIMENOrdering Facility: [facility] Address:[address] [place], [place] [address]Performed By: #### 34061-5 ####[facility] LABIA [id number] [place], [place] [address]Oicwzkefbwp distribution width (RBC) [Ratio]13.5 %Lnpzwd49.5-15.0[facility] on above: Order Comment: Specimen Type: BLOOD SPECIMENOrdering Facility: [facility] Address:[address] [place], [place] [address]Performed By: #### 33727- 8 ####[facility] LABIA [id number] [place], [place] [address]Alspclqrmk (Bld) [Volume fraction]39.7 %Jfgnvw13.0-51.0 [facility] on above:Order Comment: Specimen Type: BLOOD SPECIMENOrdering Facility: [facility] Address:[address] [place], [place] [address]Performed By: #### 65039-4 ####[facility] LABIA [id number] [place], [place] [address]Vievlwjepr (Bld) [Mass/Vol]13.2 g/yDOcahwj53.0-17.0[facility] on above: Order Comment: Specimen Type: BLOOD SPECIMENOrdering Facility: [facility] Address:[address] [place], [place] [address]Performed By: #### 91522- 8 ####[facility] LABIA [id number] [place], [place] [address]Bqdmljkm granulocytes (Bld) [#/Vol]0.06 10*3/uLNormal <0.10[facility] on above:Order Comment: Specimen Type: BLOOD SPECIMENOrdering Facility: [facility] Address:[address] [place], [place] [address]Performed By: #### 19521-1 ####[facility] LABIA [id number] [place], [place] [address]Aawzvcal granulocytes/100 WBC (Bld)0.7 %NormalBerger Hospital on above: Order Comment: Specimen Type: BLOOD SPECIMENOrdering Facility: [facility] Address:[address] [place], [place] [address]Performed By: #### 51126- 8 ####[facility] LABCLIA [id number] [place], [place] [address]Ruigdphayqc (Bld) [#/Vol]2.03 10*3/uLNormal1.00-4.00 [facility] on above:Order Comment: Specimen Type: BLOOD SPECIMENOrdering Facility: [facility] Address:[address] [place], [place] [address]Performed By: #### 56076-2 ####[facility] LABIA [id number] [place], [place] [address]Skxgjadsdwa/100 WBC (Bld)23.4 %NormalBerger Hospital on above:Order Comment: Specimen Type: BLOOD SPECIMENOrdering Facility: [facility] Address:[address] [place], [place] [address]Performed By: #### 66271-9 ####[facility] LABCLIA [id number] [place], [place] [address]UHH (RBC) [Entitic mass]30.9 psIuhhyd06.0-34.0[facility] on above:Order Comment: Specimen Type: BLOOD SPECIMENOrdering Facility: [facility] Address:[address] [place], [place] [address]Performed By: #### 21842-6 ####[facility] LABCLIA [id number] [place], [place] [address]HSKD (RBC) [Mass/Vol]33.2 g/pWAeanjb83.5-36.0[facility] on above: Order Comment: Specimen Type: BLOOD SPECIMENOrdering Facility: [facility] Address:[address] [place], [place] [address]Performed By: #### 14868- 8 ####[facility] LABCLIA [id number] [place], [place] [address]KRV (RBC) [Entitic vol]93.0 zHHnahhi54.0-100.0[facility] on above:Order Comment: Specimen Type: BLOOD SPECIMENOrdering Facility: [facility] Address:[address] [place], [place] [address]Performed By: #### 61197-0 ####[facility] LABCLIA [id number] [place], [place] [address]Ojziwkwwj (Bld) [#/Vol]1.17 10*3/uLHigh<0.87[facility] on above:Order Comment: Specimen Type: BLOOD SPECIMENOrdering Facility: [facility] Address:[address] [place], [place] [address]Performed By: #### 83279- 8 ####[facility] LABCLIA [id number] [place], [place] [address]Idsyveyhl/100 WBC (Bld)13.5 %NormalBerger Hospital on above:Order Comment: Specimen Type: BLOOD SPECIMENOrdering Facility: [facility] Address:[address] [place], [place] [address]Performed By: #### 30048-0 ####[facility] LABIA [id number] [place], [place] [address]Yipidzkqrdf (Bld) [#/Vol]5.08 10*3/uLNormal1.45-7.50[facility] on above:Order Comment: Specimen Type: BLOOD SPECIMENOrdering Facility: [facility] Address:[address] [place], [place] [address]Performed By: #### 91342-6 ####[facility] LABIA [id number] [place], [place] [address]Fafwedhyazs/100 WBC (Bld)58.6 %NormalBerger Hospital on above:Order Comment: Specimen Type: BLOOD SPECIMENOrdering Facility: [facility] Address:[address] [place], [place] [address]Performed By: #### 84174-0 ####[facility] LABIA [id number] [place], [place] [address]Suzmzlfqz RBC (Bld) [#/Vol] 10*3/uLNormal<0.01[facility] on above:Order Comment: Specimen Type: BLOOD SPECIMENOrdering Facility: [facility] Address:[address] [place], [place] [address]Performed By: #### 58688-2 ####[facility] LABIA [id number] [place], [place] [address]Gsrrwhxfr RBC/100 WBC (Bld) [Ratio]0.0 /100 WBCNormal [facility] on above:Order Comment: Specimen Type: BLOOD SPECIMENOrdering Facility: [facility] Address:[address] [place], [place] [address]Performed By: #### 18941-0 ####[facility] LABIA [id number] [place], [place] [address]Tydbkfrl mean volume (Bld) [Entitic vol]9.1 fLNormal9.0-12.7CSelect [facility] on above:Order Comment: Specimen Type: BLOOD SPECIMENOrdering Facility: [facility] Address:[address] [place] [address] Performed By: #### 14687-9 ####[facility] LABIA [id number] [place], [place] [address]Iozwiyern (Bld) [#/Vol]225 10*3/iRMgawrh820-528UlwdmifgoBerger Hospital on above:Order Comment: Specimen Type: BLOOD SPECIMENOrdering Facility: [facility] Address:[address] [place], [place] [address]Performed By: #### 02278-9 ####[facility] LABCLIA [id number] [place], [place] [address]AZF (Bld) [#/Vol]4.27 10*6/uLNormal4.20-6.00[facility] on above:Order Comment: Specimen Type: BLOOD SPECIMENOrdering Facility: [facility] Address:[address] [place], [place] [address]Performed By: #### 69266-1 ####[facility] LABCLIA [id number] [place], [place] [address]HKT (Bld) [#/Vol]8.67 10*3/uLNormal3.70-11.00[facility] on above: Order Comment: Specimen Type: BLOOD SPECIMENOrdering Facility: [facility] Address:[address] [place], [place] [address]Performed By: #### 97566- 8 ####[facility] LABCLIA [id number] [place], [place] [address]SNN CBC W AUTO DIFF BLDon 88-09-1386CLL BASOPHILS # BLD AUTO0.05NIHorizon Medical Center DIFFERENTIAL METHOD BLDAutoNOMS [facility] EOSINOPHIL # BLD AUTO0.28NIHorizon Medical Center LYMPHOCYTES # BLD AUTO2.03[facility] MONOCYTES # BLD AUTO1.17HighNIHorizon Medical Center NEUTROPHILS # BLD AUTO5.08[facility] NRBC # BLD AUTO<0.01NIHorizon Medical Center NRBC/100 WBC BLD-RTO0/100 WBCNOCox North PLATELET # BLD [id number] Southern Healthcare PMV BLD AUTO9.1 fL9.0 - 12.7 fLNOCA HealthcareCCF WBC # BLD AUTO 8.67NOMS HealthcareIMM GRANULOCYTES # BLD AUTO0.06NINFNOMercy Hospital South, formerly St. Anthony's Medical CenterIMM GRANULOCYTES/LEUK NFR BLD AUTO0.7 %NOMS HealthcareSpecimen Type: BLOOD SPECIMEN [facility] Address: [address] [place] [address] [place] [address] Original Ordering Provider: LINETTE VENTURA ABD/PEL W IVCONon 05-83-3607TU ABD/PEL W IVCON* * *Final Report* * * DATE OF EXAM: Jan 30 2025 2:25PM [facility] [place] 0530 - CT ABD/PEL W IVCON / [...] any questions regarding this interpretation, please call [phone]. If you are unable to reach us at the number above, please feel free to contact [facility] eRadiology at [phone]. [id number]_IDCSIACNNormalClinton Memorial HospitalCT CHEST W IVCONon 99-83-0001ET CHEST W IVCON* * *Final Report* * * DATE OF EXAM: Jan 30 2025 2:25PM [facility] [place] 0539 - CT CHEST W IVCON / [...] any questions regarding this interpretation, please call [phone]. If you are unable to reach us at the number above, please feel free to contact [facility] eRadiology at [phone]. [id number]_IDCSIACNNormalClinton Memorial HospitalComprehensive metabolic 2000 panelOrdered By: Dolly Muhammad on 39-50-6230Ldeyfxh [Mass/Vol]4.3 g/dL3.9 - 4.9 g/dLChardon ClinicALP [Catalytic activity/Vol]95 U/L38 - 113 U/LCleveland ClinicALT [Catalytic activity/Vol]8 U/LLow10 - 54 U/LCleveland ClinicAnion gap [Moles/Vol]8 mmol/L8 - 15 mmol/LCleveland ClinicAST [Catalytic activity/Vol]14 U/L14 - 40 U/LCleveland ClinicBilirubin [Mass/Vol]0.3 mg/dL0.2 - 1.3 mg/dL Chardon ClinicCalcium [Mass/Vol]9.4 mg/dL8.5 - 10.2 mg/dLAcmc Healthcare System Chloride [Moles/Vol]105 mmol/L98 - 107 mmol/LCleveland ClinicCO2 [Moles/Vol]25 mmol/L22 - 30 mmol/LCleveland ClinicCreatinine [Mass/Vol]0.86 mg/dL0.73 - 1.22 mg/dLChardon ClinicGFR/1.73 sq M.predicted among non-blacks MDRD (S/P/Bld) [Vol rate/Area]91 mL/min/{1.73_m2}- PINFCleveland Abbott Northwestern HospitalComment on above: Estimated Glomerular Filtration Rate (eGFR) is calculated using the 2020 CKD-EPI creatinine equation. This equation utilizes serum creatinine, sex, and age as parameters. The creatinine assay has traceable calibration to isotope dilution- mass spectrometry. Refer to KDIGO guidelines for clinical interpretation. In patients with unstable renal function, e.g. those with acute kidney injury, the eGFRmay not accurately reflect actual GFR.Glucose [Mass/Vol]85 mg/dL74 - 99 mg/dLMemorial Hospitalment on above:The [place] Diabetes Association (ADA) provides guidance for cutoff values for fasting glucose andrandom glucose. The ADA defines fasting as no caloric intake for at least 8 hours. Fasting plasma gl ucose results between 100 to 125 mg/dL indicate [...] Standards of Medical Care in Diabetes 2016, [place] Diabetes Association. Diabetes Care. 2016.39(Suppl 1). Interpretation and review of laboratory resultsAbnormalCleveland ClinicPotassium [Moles/Vol]3.8 mmol/L3.7 - 5.1 mmol/LCtrumbull regional medical center ClinicProtein [Mass/Vol]7.1 g/dL 6.3 - 8.0 g/dLMorrow County Hospitalodium [Moles/Vol]138 mmol/L136 - 144 mmol/L [facility] Healthcare SystemUrea nitrogen [Mass/Vol]16 mg/dL9 - 24 mg/dLUniversity Hospitals Health SystemComprehensive metabolic 2000 panelon 68-53-6497Hvxacvm [Mass/Vol]4.3 g/dLNormal3.9-4.9CSelect [facility] [place] on above:Order Comment: Specimen Type: BLOOD SPECIMENOrdering Facility: [facility] Address:[address] [place], [place] [address]Performed By: #### 82615- 8 ####[facility] LABCLIA [id number] [place], [place] [address]FAH [Catalytic activity/Vol]95 U/XEeieue25-474KfxvnlxvcBerger Hospital on above:Order Comment: Specimen Type: BLOOD SPECIMENOrdering Facility: [facility] Address:[address] [place], [place] [address]Performed By: #### 96336-2 ####[facility] LABCLIA [id number] [place], [place] [address]XFC [Catalytic activity/Vol]8 U/JCwl10-56NwgewhwkqBerger Hospital on above:Order Comment: Specimen Type: BLOOD SPECIMENOrdering Facility: [facility] Address:[address] [place], [place] [address]Performed By: #### 64318- 8 ####[facility] LABCLIA [id number] [place], [place] [address]C[place]o gap [Moles/Vol]8 mmol/LNormal8-15[facility] on above:Order Comment: Specimen Type: BLOOD SPECIMENOrdering Facility: [facility] Address:[address] [place], [place] [address]Performed By: #### 31860-9 ####[facility] LABCLIA [id number] ABHIJIT GILESWHITE MOUNTAIN REGIONAL MEDICAL CENTERDARION [place] [address]TOM [Catalytic activity/Vol]14 U/MLixfvx66-02PminlhrfuBerger Hospital on above:Order Comment: Specimen Type: BLOOD SPECIMENOrdering Facility: [facility] Address:[address] [place], [place] [address]Performed By: #### 37836-1 ####[facility] LABCLIA [id number] [place] [address] Bilirubin [Mass/Vol]0.3 mg/dLNormal0.2-1.3CSelect [facility] [place] on above:Order Comment: Specimen Type: BLOOD SPECIMENOrdering Facility: [facility] Address:[address] [place], [place] [address]Performed By: #### 07715-1 ####[facility] LABCLIA [id number] ABHIJIT SCHAEFERMARTINEZWATSONTOWN, [place] [address]Jvmwzid [Mass/Vol]9.4 mg/dLNormal8.5-10.2CSelect [facility] [place] on above:Order Comment: Specimen Type: BLOOD SPECIMENOrdering Facility: [facility] Address:[address] [place], [place] [address]Performed By: #### 83031-3 ####[facility] LABCLIA [id number] ABHIJIT SCHAEFERMARTINEZWHITE MOUNTAIN REGIONAL MEDICAL CENTERDARIONMONROE CITY, [place] [address]Jnxelzfr [Moles/Vol]105 mmol/KBndtho98-752GbfwisdpgBerger Hospital on above: Order Comment: Specimen Type: BLOOD SPECIMENOrdering Facility: [facility] Address:[address] [place], [place] [address]Performed By: #### 14556- 8 ####[facility] LABCLIA [id number] ATULRY OLIVE BARLOWWHITE MOUNTAIN REGIONAL MEDICAL CENTERSUMITTRENT, [place] [address]FX4 [Moles/Vol]25 mmol/JRwrpiu10-22AkspabtpmBerger Hospital on above:Order Comment: Specimen Type: BLOOD SPECIMENOrdering Facility: [facility] Address:[address] [place], [place] [address]Performed By: #### 56602-3 ####[facility] LABCLIA [id number] [place], [place] [address]Tkztjthlvt [Mass/Vol]0.86 mg/dL Normal0.73-1.22[facility] on above:Order Comment: Specimen Type: BLOOD SPECIMENOrdering Facility: [facility] Address:[address] [place], [place] [address]Performed By: #### 36678-5 ####[facility] LABCLIA [id number] [place], [place] [address]Byoqrypiic and Glomerular filtration rate.predicted panel (S/P/Bld)91 mL/min/1.73m???Normal>=60[facility] on above:Order Comment: Specimen Type: BLOOD SPECIMENOrdering Facility: [facility] Address:[address] [place], [place] [address]Result Comment: Estimated Glomerular Filtration Rate (eGFR) is calculated using the 2020 CKD-EPI creatinine equation. This equation utilizes serum creatinine, sex, and age as parameters. The creatinine assay has traceable calibration to isotope dilution- mass spectrometry. Refer to KDIGO guidelines for clinical interpretation. In patients with unstable renal function, e.g. those with acute kidney injury, the eGFR may not accurately reflect actual GFR.Performed By: #### 23324-2 ####[facility] LABCLIA [id number] [place], [place] [address]Vyyutsi [Mass/Vol]85 mg/rKJjczgv25-23DvlyfktopBerger Hospital on above:Order Comment: Specimen Type: BLOOD SPECIMENOrdering Facility: [facility] Address:[address] [place], [place] [address]Result Comment: The [place] Diabetes Association (ADA) provides guidance for cutoff values for fasting glucose and random glucose. The ADA defines fasting as no caloric intake for at least 8 hours. Fasting plasma glucose results between 100 to 125 mg/dL indicate increased risk for diabetes (prediab etes). Fasting plasma glucose results greater than or [...] Standards of Medical Care in Diabetes 2016, [place] Diabetes Association. Diabetes Care. 2016.39(Suppl 1).Performed By: #### 80608-2 ####[facility] LABCLIA [id number] [place], [place] [address]Evgmmyvov [Moles/Vol]3.8 mmol/LNormal3.7-5.1CSelect [facility] [place] on above:Order Comment: Specimen Type: BLOOD SPECIMENOrdering Facility: [facility] Address:[address] [place], [place] [address]Performed By: #### 29423-8 ####[facility] LABCLIA [id number] [place], [place] [address]Caqjqih [Mass/Vol]7.1 g/dLNormal6.3-8.0[facility] on above:Order Comment: Specimen Type: BLOOD SPECIMENOrdering Facility: [facility] Address:[address] [place], [place] [address]Performed By: #### 18365- 8 ####[facility] LABCLIA [id number] [place], [place] [address]Ckmbrd [Moles/Vol]138 mmol/BEfsggy192-575XitkipvhjBerger Hospital on above:Order Comment: Specimen Type: BLOOD SPECIMENOrdering Facility: [facility] Address:[address] [place], [place] [address]Performed By: #### 02595-1 ####[facility] LABCLIA [id number] [place], [place] [address]Lthu nitrogen [Mass/Vol]16 mg/dLNormal9-24[facility] on above:Order Comment: Specimen Type: BLOOD SPECIMENOrdering Facility: [facility] Address:[address] [place], [place] [address]Performed By: #### 44881-6 ####[facility] LABCLIA [id number] [place], [place] [address]BFW SerPl-aCncon 01-09-7442Kxqatofsnkipty (EPO) Qn11.5 mIU/mLNormal2.6-18.5CSelect [facility] [place] on above:Order Comment: Specimen Type: BLOOD SPECIMENOrdering Facility: [facility] Address:[address] [place], [place] [address]Performed By: #### 93909-5 ####[facility] LABCLIA [id number] [address] STATES OF AMERICAFerritin SerPl-mCncon 01-30-2025 Ferritin [Mass/Vol]187.0 ng/aPUriwvv63.3-565.7CSelect [facility] [place] on above:Order Comment: Specimen Type: BLOOD SPECIMENOrdering Facility: [facility] Address:[address] [place] [address] Performed By: #### 17751-7, 2131-9, 6-4, 4-8 ####[facility] LABCLIA [id number] [place] [address] [place] AMERICAFolate SerPl-mCncon 13-66-6990Tlvibo [Mass/Vol]12.6 ng/mLNormal >4.7CSelect [facility] [place] on above:Order Comment: Specimen Type: BLOOD SPECIMENOrdering Facility: [facility] Address:[address] [place], [place] [address]Performed By: #### 17771-7, 2131-9, 6-4, 2283-8 ####[facility] LABCLIA [id number] [place] [address] [place] OF AMERICAIron and Iron binding capacity panelon 08-56-6723Wvys [Mass/Vol]67 ug/tYWhyebp78-077ZscurjyksClinton Memorial Hospital Comment on above:Order Comment: Specimen Type: BLOOD SPECIMENOrdering Facility: [facility] Address:[address] [place] [address] Performed By: #### 43378-9, 9, 2275-4, 8 ####[facility] LABIA [id number] [address] OF [facility] WESTIron binding capacity [Mass/Vol]329 ug/fZEbacor553-854AtunjuvitClinton Memorial HospitalComment on above:Order Comment: Specimen Type: BLOOD SPECIMENOrdering Facility: [facility] Address:[address] [place], [place] [address]Performed By: #### 65727-4, 2131-9, 4, 8 ####[facility]OSPITALIA [id number] [address] STATES OF AMERICAIron/TIBC [Molar ratio]20.4 % Usohex11.0-57.0Clinton Memorial HospitalComment on above:Order Comment: Specimen Type: BLOOD SPECIMENOrdering Facility: [facility] Address:[address] [place], [place] [address]Performed By: #### 66363-8, 9, 4, 8 ####[facility] LABIA [id number] [place] [address] [place] OF AMERICALaboratory - Hematology and Cell countson 12-15-9883Hsfbpbzwp/100 WBC (Bld)0.6 %NOMS HealthcareEosinophils/100 WBC (Bld)3.2 %NOMS HealthcareErythrocyte distribution width (RBC) [Ratio]13.5 %11.5 - 15.0 %NOMS HealthcareHematocrit (Bld) [Volume fraction]39.7 %39.0 - 51.0 %[facility] HealthcareHemoglobin (Bld) [Mass/Vol]13.2 g/dL 13.0 - 17.0 g/dLCitizens Memorial HealthcareLymphocytes/100 WBC (Bld)23.4 %[facility] HospitalH (RBC) [Entitic mass]30.9 pg26.0 - 34.0 pgCitizens Memorial HealthcareMCHC (RBC) [Mass/Vol] 33.2 g/dL30.5 - 36.0 g/dLChristian HospitalV (RBC) [Entitic vol]93 fL80.0 - 100.0 fLL[facility] HealthcareMonocytes/100 WBC (Bld)13.5 %[facility] HealthcareNeutrophils/100 WBC (Bld)58.6 %[facility] HealthcareRBC (Bld) [#/Vol]4.27 10*6/uL4.20 - 6.00 m/uLCitizens Memorial HealthcareNo Panel Informationon 43-12-7750Jnneegziffjzid and review of laboratory resultsAbnormalNovant Health Rowan Medical CenterRadiology Study observation (narrative)[facility] HealthcareVit B12 SerPl-mCncon 31-59-2878Cxykobyec (Vitamin B12) [Mass/Vol]277 pg/eYXfrryk522-0248MnglpvjwaSelect Medical [facility], [place] on above:Order Comment: Specimen Type: BLOOD SPECIMENOrdering Facility: [facility] Address:[address] [place] [address] Performed By: #### 93517-7, 2132-9, 2276-4, 2284-8 ####[facility] LABCLIA [id number] [place] [address] [place] SNFKWRV34gy [id number]-Claude Heaton CNP informed.[facility]36on [id number]-Claude Heaton CNP called to check with you to see if she can start him on Zoloft 50mg for anxiety/depression. She said Dr. Etienne and the former CYBER SOFTWARE ENGINEER never started him on something, so she's making sure there wasn't a reason why they didn't - due to his cardiac history. Thanks. ( )[facility] CenterCBC W Auto Differential panel (Bld)on 17-43-0849Hjqlgdwqn (Bld) [#/Vol]0.04 10*3/uLNINF [facility] Healthcare SystemDifferential cell count method Nom (Bld)AutoClevelMercy Health Perrysburg Hospital Eosinophils (Bld) [#/Vol]0.34 10*3/uLNINFAcmc Healthcare SystemImmature granulocytes (Bld) [#/Vol]0.04 10*3/uLNIUniversity Hospitals Parma Medical CenterImmature granulocytes/100 WBC (Bld) 0.5 %Acmc Healthcare SystemLymphocytes (Bld) [#/Vol]1.66 10*3/uLAcmc Healthcare System Monocytes (Bld) [#/Vol]1.01 10*3/uLHighNINFAcmc Healthcare SystemNeutrophils (Bld) [#/Vol]4.78 10*3/uLAcmc Healthcare SystemNucleated RBC (Bld) [#/Vol]NINFClevelMercy Health Perrysburg HospitalNucleated RBC/100 WBC (Bld) [Ratio]0 %/100 WBCAcmc Healthcare SystemPlatelet mean volume (Bld) [Entitic vol]9.1 fL9.0 - 12.7 fLClevelcone health annie penn hospital ClinicPlatelets (Bld) [#/Vol]254 10*3/[facility] HospitalWBC (Bld) [#/Vol]7.87 10*3/[facility] HospitalBasophils (Bld) [#/Vol]0.04 10*3/uLNormal<0.11CLakeHealth TriPoint Medical Center Comment on above:Order Comment: Specimen Type: BLOOD SPECIMENOrdering Facility: [facility] Address:[address] [place] [address] Performed By: #### 55962-0 ####[facility] LABIA [id number] [place], [place] [address]Tzkfnmruj/100 WBC (Bld)0.5 % NormalClinton Memorial HospitalComment on above:Order Comment: Specimen Type: BLOOD SPECIMENOrdering Facility: [facility] Address:[address] [place] [address]Xfyfxbjyz By: #### 09236-3 ####[facility] LABCLIA [id number] [place] [address] Differential cell count method Nom (Bld)AutoNormalClevelECU Health Medical Center Comment on above:Order Comment: Specimen Type: BLOOD SPECIMENOrdering Facility: [facility] Address:[address] [place] [address] Performed By: #### 00881-6 ####[facility] LABCLIA [id number] [place], [place] [address]Dsvjrthnlki (Bld) [#/Vol]0.34 10*3/uLNormal<0.46[facility] on above:Order Comment: Specimen Type: BLOOD SPECIMENOrdering Facility: [facility] Address:[address] [place], [place] [address]Performed By: #### 30944-8 ####[facility] LABCLIA [id number] [place], [place] [address]Wzcobdwqpup/100 WBC (Bld)4.3 %NormalBerger Hospital on above:Order Comment: Specimen Type: BLOOD SPECIMENOrdering Facility: [facility] Address:[address] [place], [place] [address]Performed By: #### 36884-1 ####[facility] LABCLIA [id number] [place], [place] [address]Czdjokfuweh distribution width (RBC) [Ratio]13.7 %Zneusb46.5-15.0[facility] on above: Order Comment: Specimen Type: BLOOD SPECIMENOrdering Facility: [facility] Address:[address] [place], [place] [address]Performed By: #### 20322- 8 ####[facility] LABIA [id number] [place], [place] [address]Asdgkgjuvl (Bld) [Volume fraction]36.7 %Low39.0-51.0 [facility] on above:Order Comment: Specimen Type: BLOOD SPECIMENOrdering Facility: [facility] Address:[address] [place], [place] [address]Performed By: #### 06694-2 ####[facility] LABCLIA [id number] [place], [place] [address]Mexncqiaap (Bld) [Mass/Vol]12.0 g/dLLow13.0-17.0[facility] on above:Order Comment: Specimen Type: BLOOD SPECIMENOrdering Facility: [facility] Address:[address] [place], [place] [address]Performed By: #### 08906- 8 ####[facility] LABCLIA [id number] [place], [place] [address]Zisaopmo granulocytes (Bld) [#/Vol]0.04 10*3/uLNormal <0.10[facility] on above:Order Comment: Specimen Type: BLOOD SPECIMENOrdering Facility: [facility] Address:[address] [place], [place] [address]Performed By: #### 86338-4 ####[facility] LABCLIA [id number] [place], [place] [address]Wrquxpcf granulocytes/100 WBC (Bld)0.5 %NormalBerger Hospital on above: Order Comment: Specimen Type: BLOOD SPECIMENOrdering Facility: [facility] Address:[address] [place], [place] [address]Performed By: #### 87034- 8 ####[facility] LABCLIA [id number] [place], [place] [address]Efnlgkfezmo (Bld) [#/Vol]1.66 10*3/uLNormal1.00-4.00 [facility] on above:Order Comment: Specimen Type: BLOOD SPECIMENOrdering Facility: [facility] Address:[address] [place], [place] [address]Performed By: #### 28312-7 ####[facility] LABCLIA [id number] [place], [place] [address]Jymmaxxablg/100 WBC (Bld)21.1 %NormalBerger Hospital on above:Order Comment: Specimen Type: BLOOD SPECIMENOrdering Facility: [facility] Address:[address] [place], [place] [address]Performed By: #### 04180-4 ####[facility] LABCLIA [id number] [place], [place] [address]AWG (RBC) [Entitic mass]30.2 xsPxtjyl57.0-34.0[facility] on above:Order Comment: Specimen Type: BLOOD SPECIMENOrdering Facility: [facility] Address:[address] [place], [place] [address]Performed By: #### 54651-7 ####[facility] LABCLIA [id number] [place], [place] [address]NLWH (RBC) [Mass/Vol]32.7 g/eYNsirve41.5-36.0[facility] on above: Order Comment: Specimen Type: BLOOD SPECIMENOrdering Facility: [facility] Address:[address] [place], [place] [address]Performed By: #### 33019- 8 ####[facility] LABCLIA [id number] [place], [place] [address]MMK (RBC) [Entitic vol]92.4 hXFvxupy62.0-100.0[facility] on above:Order Comment: Specimen Type: BLOOD SPECIMENOrdering Facility: [facility] Address:[address] [place], [place] [address]Performed By: #### 40031-1 ####[facility] LABCLIA [id number] [place], [place] [address]Qddrqzhyg (Bld) [#/Vol]1.01 10*3/uLHigh<0.87[facility] on above:Order Comment: Specimen Type: BLOOD SPECIMENOrdering Facility: [facility] Address:[address] [place], [place] [address]Performed By: #### 25838- 8 ####[facility] LABCLIA [id number] [place], [place] [address]Vsemhfsqb/100 WBC (Bld)12.8 %NormalBerger Hospital on above:Order Comment: Specimen Type: BLOOD SPECIMENOrdering Facility: [facility] Address:[address] [place], [place] [address]Performed By: #### 09578-2 ####[facility] LABCLIA [id number] [place], [place] [address]Tgaumjkoqpk (Bld) [#/Vol]4.78 10*3/uLNormal1.45-7.50[facility] on above:Order Comment: Specimen Type: BLOOD SPECIMENOrdering Facility: [facility] Address:[address] [place], [place] [address]Performed By: #### 24695-8 ####[facility] LABCLIA [id number] [place], [place] [address]Iopavuqawoi/100 WBC (Bld)60.8 %NormalBerger Hospital on above:Order Comment: Specimen Type: BLOOD SPECIMENOrdering Facility: [facility] Address:[address] [place], [place] [address]Performed By: #### 35966-4 ####[facility] LABCLIA [id number] [place], [place] [address]Pvshxhrcg RBC (Bld) [#/Vol] 10*3/uLNormal<0.01[facility] on above:Order Comment: Specimen Type: BLOOD SPECIMENOrdering Facility: [facility] Address:[address] [place], [place] [address]Performed By: #### 86731-6 ####[facility] LABCLIA [id number] [place], [place] [address]Edbrpuuna RBC/100 WBC (Bld) [Ratio]0.0 /100 WBCNormal [facility] on above:Order Comment: Specimen Type: BLOOD SPECIMENOrdering Facility: [facility] Address:[address] [place], [place] [address]Performed By: #### 46329-7 ####[facility] LABCLIA [id number] [place], [place] [address]Bhszqoxq mean volume (Bld) [Entitic vol]9.1 fLNormal9.0-12.7CSelect [facility] on above:Order Comment: Specimen Type: BLOOD SPECIMENOrdering Facility: [facility] Address:[address] [place] [address] Performed By: #### 12208-1 ####[facility] LABCLIA [id number] [place], [place] [address]Akxghbwrf (Bld) [#/Vol]254 10*3/pPIyjiwp263-009LuyyskojbBerger Hospital on above:Order Comment: Specimen Type: BLOOD SPECIMENOrdering Facility: [facility] Address:[address] [place], [place] [address]Performed By: #### 14162-7 ####[facility] LABCLIA [id number] [place], [place] [address]IMU (Bld) [#/Vol]3.97 10*6/uLLow4.20-6.00[facility] on above:Order Comment: Specimen Type: BLOOD SPECIMENOrdering Facility: [facility] Address:[address] [place], [place] [address]Performed By: #### 34512-3 ####[facility] LABCLIA [id number] [place], [place] [address]URP (Bld) [#/Vol]7.87 10*3/uL Normal3.70-11.00[facility] on above:Order Comment: Specimen Type: BLOOD SPECIMENOrdering Facility: [facility] Address:[address] [place], [place] [address]Performed By: #### 80560-9 ####[facility] LABCLIA [id number] [place], [place] [address]WMK CBC W AUTO DIFF BLDon 28-25-4723OYI BASOPHILS # BLD AUTO0.04NINFNOCA HealthcareF DIFFERENTIAL METHOD BLDAutoNOMS HealthcareCCF EOSINOPHIL # BLD AUTO0.34NINFNOMS HealthcareCCF LYMPHOCYTES # BLD AUTO1.66NOMS HealthcareCCF MONOCYTES # BLD AUTO1.01HighNINFNOSaint Mary's Hospital of Blue SpringsF NEUTROPHILS # BLD AUTO4.78NOSaint Mary's Hospital of Blue SpringsF NRBC # BLD AUTO<0.01NINFNOSaint Mary's Hospital of Blue SpringsF NRBC/100 WBC BLD-RTO0/100 WBCNOSaint Mary's Hospital of Blue SpringsF PLATELET # BLD [id number] Mary's Hospital of Blue SpringsF PMV BLD AUTO9.1 fL9.0 - 12.7 fLNOMercy Hospital South, formerly [address]. Anthony's Medical CenterCCF WBC # BLD AUTO 7.87NOMS HealthcareIMM GRANULOCYTES # BLD AUTO0.04NINFCitizens Memorial HealthcareIMM GRANULOCYTES/LEUK NFR BLD AUTO0.5 %NOMS HealthcareSpecimen Type: BLOOD SPECIMEN Ordering Facility: [facility] Address: [address] [place] [address] Original Ordering Provider: LINETTE White 26-07-8760DCQNOA Visit (SP) Office ([place]) DOC BURNS ([id number]) 1950 M Date Time Provider Department 11/07/24 2:00 PM LINETTE BAI During your visit today, we recorded the following information about you: Temperature Pulse Respiration Blood pressure 97 degrees 59/minute 18/minute 126/70 Weight 79.4 kg Linette Bai MD 11/08/2024 6:21 PM Signed NAME: Doc Burns CLINIC NO.: [id number] DATE OF SERVICE: November 07, 2024 ([facility]) Some elements in this clinic note that are critical to medical decision making have been carefully reviewed and included from a prior clinic note dated: September 12, 2024 (ivonnerobert) Referring Provider: Dr. Shaikh Etienne Additional Clinicians involved in Doc Burns's care: Richard Lentz DO DIAGNOSIS: lung cancer ASSESSMENT: 74 [...] 6-month gap between resection and presentation to nm. He remains at high risk because of [...] obtain PET/CT Obtain report of CT from [facility] from 10/2024 Continue follow up with [...] right middle lobe atele (more content not included)...NormalClinton Memorial HospitalCNPNon [id number] (NCCAP) DOC BURNS ([id number]) 1950 M Date Time Provider Department 11/07/24 LINETTE BAI During your visit today, we recorded the following information about you: Jasen Laughlin 11/07/2024 2:52 PM Signed Adenike Rosas RN 11/18/2024 9:01 AM Signed Darleen: please review and advise JERONIMO Wyatt Vivek, MD 11/18/2024 9:33 AM Signed Small nodules - more than prior in September. Still too small for PET/CT - keep 12 week appointments. Adenike Rosas RN 11/18/2024 9:42 AM Signed Pt informed of Darleen's message, once verified, using 2 patient identifiers. Patient denies any questions, needs or concerns at this time. Appointment verified. Adenike Rosas RN Allergies As of Date: 11/07/2024 [...] 911) - sacubitril-valsartan (ENTRE (more content not included)...NormalMain Campus Medical Center ABD/PEL W IVCONon [id number] ABD/PEL W IVCON* * *Final Report* * * DATE OF EXAM: Nov 07 2024 1:28PM [facility] 0530 - CT ABD/PEL W IVCON / [...] performed concurrently and will be dictated separately. Clam Bed Worker (topogram) images: No additional findings. IMPRESSION: [...] any questions regarding this interpretation, please call [phone]. If you are unable to reach us at the number above, please feel free to contact [facility] eRadiology at [phone]. [id number] Campus Medical Center CHEST W IVCONon [id number] CHEST W IVCON* * *Final Report* * * DATE OF EXAM: Nov 07 2024 1:28PM [facility] 0539 - CT CHEST W IVCON / [...] performed concurrently and will be dictated separately. Clam Bed Worker (topogram) images: No additional findings. IMPRESSION: [...] any questions regarding this interpretation, please call [phone]. If you are unable to reach us at the number above, please feel free to contact [facility] eRadiology at [phone]. [id number] Memorial HospitalComprehensive metabolic 1999 panelOrdered By: Oanh Vivar on 55-41-7061Ayvdreq [Mass/Vol]3.7 g/dLLow3.9 - 4.9 g/dLChardon ClinicALP [Catalytic activity/Vol]98 U/L38 - 113 U/LCleveland ClinicALT [Catalytic activity/Vol]8 U/LLow10 - 54 U/LCleveland ClinicAnion gap [Moles/Vol]9 mmol/L8 - 15 mmol/LCleveland ClinicAST [Catalytic activity/Vol]12 U/LLow14 - 40 U/LCleveland ClinicBilirubin [Mass/Vol]0.3 mg/dL0.2 - 1.3 mg/dL [facility] Healthcare SystemCalcium [Mass/Vol]8.5 mg/dL8.5 - 10.2 mg/dLAcmc Healthcare System Chloride [Moles/Vol]108 mmol/LHigh98 - 107 mmol/LCleveland ClinicCO2 [Moles/Vol] 24 mmol/L22 - 30 mmol/LCleveland ClinicCreatinine [Mass/Vol]0.96 mg/dL0.73 - 1.22 mg/dLAcmc Healthcare SystemGFR/1.73 sq M.predicted among non-blacks MDRD (S/P/Bld) [Vol rate/Area]83 mL/min/{1.73_m2}- PINGeorgetown Behavioral Hospital on above:Estimated Glomerular Filtration Rate (eGFR) is calculated using the 2020 CKD-EPI creatinine equation. This equation utilizes serum creatinine, sex, and age as parameters. The creatinine assay has traceable calibration to isotope dilution-mass spectrometry. Refer to KDIGO guidelines for clinical inte rpretation. In patients with unstable renal function, e.g. those with acute kidney injury, the eGFRmay not accurately reflect actual GFR.Glucose [Mass/Vol] 103 mg/tRQmvm69 - 99 mg/dLMercy Health Springfield Regional Medical Center on above:The [place] Diabetes Association (ADA) provides guidance for cutoff [...] Standards of Medical Care in Diabetes 2016, [place] Diabetes Association. Diabetes Care. 2016.39(Suppl 1). Interpretation and review of laboratory resultsAbnormalClevelcone health annie penn hospital ClinicPotassium [Moles/Vol]4.2 mmol/L3.7 - 5.1 mmol/LCtrumbull regional medical center ClinicProtein [Mass/Vol]7 g/dL 6.3 - 8.0 g/dLMorrow County Hospitalodium [Moles/Vol]141 mmol/L136 - 144 mmol/L [facility] Healthcare SystemUrea nitrogen [Mass/Vol]19 mg/dL9 - 24 mg/dLWestern Reserve Hospitalprehensive metabolic 2000 panelon 40-11-4474Pjqgtdr [Mass/Vol]3.7 g/dLLow3.9-4.9CSelect [facility] [place] on above:Order Comment: Specimen Type: BLOOD SPECIMENOrdering Facility: [facility] Address:[address] [place], [place] [address]Performed By: #### 85267- 8 ####[facility] LABCLIA [id number] ATUL OLIVE BARLOWWHITE MOUNTAIN REGIONAL MEDICAL CENTERSUMITTRENT, [place] [address]JHI [Catalytic activity/Vol]98 U/ROnivsv98-155IeyfcwbyzBerger Hospital on above:Order Comment: Specimen Type: BLOOD SPECIMENOrdering Facility: [facility] Address:[address] [place], [place] [address]Performed By: #### 25891-6 ####[facility] LABCLIA [id number] [place], [place] [address]HGW [Catalytic activity/Vol]8 U/LNtu27-57GlzuqynjrBerger Hospital on above:Order Comment: Specimen Type: BLOOD SPECIMENOrdering Facility: [facility] Address:[address] [place], [place] [address]Performed By: #### 53990- 8 ####[facility] LABCLIA [id number] [facility] [place], [place] [address]Qjlhs gap [Moles/Vol]9 mmol/LNormal8-15[facility] on above:Order Comment: Specimen Type: BLOOD SPECIMENOrdering Facility: [facility] Address:[address] [place], [place] [address]Performed By: #### 53415-4 ####[facility] LABCLIA [id number] [place], [place] [address]QZH [Catalytic activity/Vol]12 U/QQur19-51UvhmruwgwBerger Hospital on above:Order Comment: Specimen Type: BLOOD SPECIMENOrdering Facility: [facility] Address:[address] [place], [place] [address]Performed By: #### 00301-1 ####[facility] LABCLIA [id number] [place] [address] Bilirubin [Mass/Vol]0.3 mg/dLNormal0.2-1.3CSelect [facility] [place] on above:Order Comment: Specimen Type: BLOOD SPECIMENOrdering Facility: [facility] Address:[address] [place], [place] [address]Performed By: #### 22945-3 ####[facility] LABCLIA [id number] ABHIJIT GILESWHITE MOUNTAIN REGIONAL MEDICAL CENTERDARION [place] [address]Tqhgdon [Mass/Vol]8.5 mg/dLNormal8.5-10.2CSelect [facility] [place] on above:Order Comment: Specimen Type: BLOOD SPECIMENOrdering Facility: [facility] Address:[address] [place], [place] [address]Performed By: #### 27164-9 ####[facility] LABCLIA [id number] ATULADVENTIST HEALTH COLUMBIA GORGEMARTINEZWHITE MOUNTAIN REGIONAL MEDICAL CENTERDARIONMONROE [place], [place] [address]Mzqiazps [Moles/Vol]108 mmol/HPxiq68-282ZzcochjscBerger Hospital on above:Order Comment: Specimen Type: BLOOD SPECIMENOrdering Facility: [facility] Address:[address] [place], [place] [address]Performed By: #### 49430- 8 ####[facility] LABCLIA [id number] ATUL OLIVE [place], [place] [address]PB0 [Moles/Vol]24 mmol/RSwqlxf95-50OptvomalcBerger Hospital on above:Order Comment: Specimen Type: BLOOD SPECIMENOrdering Facility: [facility] Address:[address] [place], [place] [address]Performed By: #### 29361-4 ####[facility] LABCLIA [id number] ABHIJIT GILESWHITE MOUNTAIN REGIONAL MEDICAL CENTERDARION, [place] [address]Plgwryuueh [Mass/Vol]0.96 mg/dL Normal0.73-1.22[facility] on above:Order Comment: Specimen Type: BLOOD SPECIMENOrdering Facility: [facility] Address:[address] [place], [place] [address]Performed By: #### 30563-9 ####[facility] LABCLIA [id number] [facility] YENUSA HEALTH UNIVERSITY HOSPITALReneeMONROE [place], [place] [address]Yjfulbimms and Glomerular filtration rate.predicted panel (S/P/Bld)83 mL/min/1.73m???Normal>=60[facility] on above:Order Comment: Specimen Type: BLOOD SPECIMENOrdering Facility: [facility] Address:[address] [place] [address]Rqtflm Comment: Estimated Glomerular Filtration Rate (eGFR) is calculated using the 2020 CKD-EPI creatinine equation. This equation utilizes serum creatinine, sex, and age as parameters. The creatinine assay has traceable calibration to isotope dilution- mass spectrometry. Refer to KDIGO guidelines for clinical interpretation. In patients with unstable renal function, e.g. those with acute kidney injury, the eGFR may not accurately reflect actual GFR.Performed By: #### 91231-1 ####[facility] LABCLIA [id number] [place], [place] [address]Owhedma [Mass/Vol]103 mg/kWWpsi97-66LmppnewpqBerger Hospital on above:Order Comment: Specimen Type: BLOOD SPECIMENOrdering Facility: [facility] Address:[address] [place] [address]Zhnuqx Comment: The [place] Diabetes Association (ADA) provides guidance for cutoff values for fasting glucose and random glucose. The ADA defines fasting as no caloric intake for at least 8 hours. Fasting plasma glucose results between 100 to 125 mg/dL indicate increased risk for diabetes (prediab etes). Fasting plasma glucose results greater than or [...] Standards of Medical Care in Diabetes 2016, [place] Diabetes Association. Diabetes Care. 2016.39(Suppl 1).Performed By: #### 00262-1 ####[facility] LABCLIA [id number] [place], [place] [address]Zvapjrqnc [Moles/Vol]4.2 mmol/LNormal3.7-5.1CSelect [facility] [place] on above:Order Comment: Specimen Type: BLOOD SPECIMENOrdering Facility: [facility] Address:[address] [place], [place] [address]Performed By: #### 69482-8 ####[facility] LABIA [id number] [place], [place] [address]Irmbxqz [Mass/Vol]7.0 g/dLNormal6.3-8.0[facility] on above:Order Comment: Specimen Type: BLOOD SPECIMENOrdering Facility: [facility] Address:[address] [place], [place] [address]Performed By: #### 10308- 8 ####[facility] LABCLIA [id number] [place], [place] [address]Zctsxu [Moles/Vol]141 mmol/XJhtasg155-680WvaesikkiBerger Hospital on above:Order Comment: Specimen Type: BLOOD SPECIMENOrdering Facility: [facility] Address:[address] [place], [place] [address]Performed By: #### 85939-9 ####[facility] LABIA [id number] [place], [place] [address]Dfeu nitrogen [Mass/Vol]19 mg/dLNormal9-24[facility] on above:Order Comment: Specimen Type: BLOOD SPECIMENOrdering Facility: [facility] Address:[address] [place], [place] [address]Performed By: #### 00561-5 ####[facility] LABIA [id number] [place], [place] [address]Ynofygerta - Hematology and Cell countson 11-07-2024 Basophils/100 WBC (Bld)0.5 %NOMS HealthcareEosinophils/100 WBC (Bld)4.3 %NOMS HealthcareErythrocyte distribution width (RBC) [Ratio]13.7 %11.5 - 15.0 %NOMS HealthcareHematocrit (Bld) [Volume fraction]36.7 %Low39.0 - 51.0 %NOMS HealthcareHemoglobin (Bld) [Mass/Vol]12 g/dLLow13.0 - 17.0 g/dLCitizens Memorial Healthcare Lymphocytes/100 WBC (Bld)21.1 %Christian HospitalH (RBC) [Entitic mass]30.2 pg 26.0 - 34.0 pgChristian HospitalHC (RBC) [Mass/Vol]32.7 g/dL30.5 - 36.0 g/dLChristian HospitalV (RBC) [Entitic vol]92.4 fL80.0 - 100.0 fLCitizens Memorial Healthcare Monocytes/100 WBC (Bld)12.8 %Citizens Memorial HealthcareNeutrophils/100 WBC (Bld)60.8 %Citizens Memorial HealthcareRBC (Bld) [#/Vol]3.97 10*6/uLLow4.20 - 6.00 [facility] Informationon 53-67-3794Iwmfnvhpsmzzkj and review of laboratory results AbnormalNovant Health Rowan Medical CenterCNPNon 38-33-3384UNYFCqgebndjh ([place]MAS[place]) DOC BURNS ([id number]) 1950 [facility]* Date Time Provider Department 09/18/24 ADENIKE ROSAS During your visit today, we recorded the following information about you: Adenike Rosas RN 09/18/2024 9:30 AM Signed ----- Message from Linette Bai MD sent at 09/17/2024 5:27 PM EST ----- Doc's scans continue to look good. Adenike Rosas RN 09/18/2024 9:30 AM Signed Pt informed of Darleen's message, once verified, using 2 patient identifiers. Patient denies any questions, needs or concerns at this time. Appointment verified. Adenike Rosas RN Allergies As of Date: 09/18/2024 [...] - spironolactone (ALDACTONE) 25 mg tablet - GOPAL ELLIPTA 200-62.5-25 mcg inhalation powder INHALE 1 [...] [J43.1] 07/21/2022 Encounter [facility] (more content not included)...[facility] (FASTING)on [id number] HDL RATIO2.6NOMS HealthcareComment on above:3.3 - 4.4 LOW RISK 4.4 - 7.1 AVERAGE RISK 7.1 - 11.0 MODERATE RISK >11.0 HIGH RISK Cholesterol [Mass/Vol]106 mg/dLNINF - 200 mg/dLNOCA HealthcareCholesterol in HDL [Mass/Vol]41 mg/dL40 - 60 mg/dLNOCA HealthcareComment on above:> or =60 mg/dl - LOW CARDIOVASCULAR RISK <40 mg/dl - HIGH CARDIOVASCULAR RISK Magnesium [Mass/Vol]52.2 mg/dLNOCA HealthcareComment on above:<100 mg/dl OPTIMAL 100-129 mg/dl NEAR OR ABOVE OPTIMAL 130-159 mg/dl BORDERLINE HIGH 160-189 mg/dl HIGH >190 mg/dl VERY HIGH Magnesium [Mass/Vol]12.8 mg/dLNOCA HealthcareTriglyceride [Mass/Vol]64 mg/dLNINF - 150 mg/dLNOCA HealthcareCLINISYNCNOMS HealthcareCBC W Auto Differential panel (Bld)on 53-66-0451Sscsgjrej (Bld) [#/Vol]0.06 10*3/uLTuscarawas Hospital Differential cell count method Nom (Bld)AutoCleveland ClinicEosinophils (Bld) [#/Vol]0.32 10*3/uLNIUniversity Hospitals Parma Medical CenterImmature granulocytes (Bld) [#/Vol]0.05 10*3/uLPremier Health Upper Valley Medical Center granulocytes/100 WBC (Bld)0.6 %[facility]cmc Healthcare SystemLymphocytes (Bld) [#/Vol]1.55 10*3/uLAcmc Healthcare SystemMCHC (RBC) [Mass/Vol] 34.0 g/dL30.5 - 36.0 g/dLAcmc Healthcare SystemMonocytes (Bld) [#/Vol]1.03 10*3/uLHigh NINFCleveland ClinicNeutrophils (Bld) [#/Vol]6.00 10*3/uLAcmc Healthcare System Nucleated RBC (Bld) [#/Vol]NINFCUpper Valley Medical CenterNucleated RBC/100 WBC (Bld) [Ratio]0.0 %/100 WBCAcmc Healthcare SystemPlatelet mean volume (Bld) [Entitic vol]9.3 fL9.0 - 12.7 fLClevelMercy Health Perrysburg HospitalPlatelets (Bld) [#/Vol]227 10*3/[facility] HospitalWBC (Bld) [#/Vol]9.01 10*3/[facility] HospitalBasophils (Bld) [#/Vol]0.06 10*3/uLNormal<0.11CSelect [facility] [place] on above:Order Comment: Specimen Type: BLOOD SPECIMENOrdering Facility: [facility] Address:[address] [place], [place] [address]Performed By: #### 01541-4 ####[facility] LABIA [id number] [place], [place] [address]Adwbjcsrg/100 WBC (Bld)0.7 %NormalBerger Hospital on above:Order Comment: Specimen Type: BLOOD SPECIMENOrdering Facility: [facility] Address:[address] [place], [place] [address]Performed By: #### 49962-5 ####[facility] LABIA [id number] [place], [place] [address]Ezlklzaqjfcq cell count method Nom (Bld)AutoNormalCSelect Medical [facility] [place] on above:Order Comment: Specimen Type: BLOOD SPECIMENOrdering Facility: [facility] Address:[address] [place], [place] [address]Performed By: #### 14130-2 ####[facility] LABIA [id number] [place], [place] [address]Yvvgtkyrtyv (Bld) [#/Vol]0.32 10*3/uLNormal<0.46[facility] on above:Order Comment: Specimen Type: BLOOD SPECIMENOrdering Facility: [facility] Address:[address] [place], [place] [address]Performed By: #### 33080-8 ####[facility] LABIA [id number] [place], [place] [address]Zpmrppwfqwn/100 WBC (Bld)3.6 %NormalBerger Hospital on above:Order Comment: Specimen Type: BLOOD SPECIMENOrdering Facility: [facility] Address:[address] [place], [place] [address]Performed By: #### 21182-8 ####[facility] LABIA [id number] [place], [place] [address]Qbvmwffvzls distribution width (RBC) [Ratio]13.2 %Normal 11.5-15.0[facility] on above:Order Comment: Specimen Type: BLOOD SPECIMENOrdering Facility: [facility] Address:[address] [place], [place] [address]Performed By: #### 66126-8 ####[facility] LABIA [id number] [place] [address] Hematocrit (Bld) [Volume fraction]39.7 %Nwxayz57.0-51.0[facility] on above:Order Comment: Specimen Type: BLOOD SPECIMENOrdering Facility: [facility] Address:[address] [place], [place] [address]Performed By: #### 73330-4 ####[facility] LABIA [id number] [place], [place] [address]Ytwrudiyts (Bld) [Mass/Vol]13.5 g/nVWrfvkm69.0-17.0[facility] on above:Order Comment: Specimen Type: BLOOD SPECIMENOrdering Facility: [facility] Address:[address] [place], [place] [address]Performed By: #### 89588-3 ####[facility] LABIA [id number] [place], [place] [address]Mqzvzhpu granulocytes (Bld) [#/Vol]0.05 10*3/uLNormal <0.10[facility] on above:Order Comment: Specimen Type: BLOOD SPECIMENOrdering Facility: [facility] Address:[address] [place], [place] [address]Performed By: #### 56134-9 ####[facility] LABCLIA [id number] [place], [place] [address]Sfvsrezp granulocytes/100 WBC (Bld)0.6 %NormalBerger Hospital on above: Order Comment: Specimen Type: BLOOD SPECIMENOrdering Facility: [facility] Address:[address] [place], [place] [address]Performed By: #### 65584- 8 ####[facility] LABIA [id number] [place], [place] [address]Cyjfbldnluu (Bld) [#/Vol]1.55 10*3/uLNormal1.00-4.00 [facility] on above:Order Comment: Specimen Type: BLOOD SPECIMENOrdering Facility: [facility] Address:[address] [place], [place] [address]Performed By: #### 46421-9 ####[facility] LABIA [id number] [place], [place] [address]Xrptfebotdu/100 WBC (Bld)17.2 %NormalBerger Hospital on above:Order Comment: Specimen Type: BLOOD SPECIMENOrdering Facility: [facility] Address:[address] [place], [place] [address]Performed By: #### 72629-9 ####[facility] LABIA [id number] [place], [place] [address]IVD (RBC) [Entitic mass]30.9 bdBwfcfr87.0-34.0[facility] on above:Order Comment: Specimen Type: BLOOD SPECIMENOrdering Facility: [facility] Address:[address] [place], [place] [address]Performed By: #### 56627-7 ####[facility] LABCLIA [id number] [place], [place] [address]GWNB (RBC) [Mass/Vol]34.0 g/yUEthbod33.5-36.0[facility] on above: Order Comment: Specimen Type: BLOOD SPECIMENOrdering Facility: [facility] Address:[address] [place], [place] [address]Performed By: #### 20111- 8 ####[facility] LABCLIA [id number] [place], [place] [address]QXN (RBC) [Entitic vol]90.8 sJIlspsx37.0-100.0[facility] on above:Order Comment: Specimen Type: BLOOD SPECIMENOrdering Facility: [facility] Address:[address] [place], [place] [address]Performed By: #### 68092-5 ####[facility] LABIA [id number] [place], [place] [address]Dmhxlqkpl (Bld) [#/Vol]1.03 10*3/uLHigh<0.87[facility] on above:Order Comment: Specimen Type: BLOOD SPECIMENOrdering Facility: [facility] Address:[address] [place], [place] [address]Performed By: #### 86659- 8 ####[facility] LABCLIA [id number] [place], [place] [address]Cbbppuihn/100 WBC (Bld)11.4 %NormalBerger Hospital on above:Order Comment: Specimen Type: BLOOD SPECIMENOrdering Facility: [facility] Address:[address] [place], [place] [address]Performed By: #### 45751-9 ####[facility] LABIA [id number] [place], [place] [address]Gzefhcjdaup (Bld) [#/Vol]6.00 10*3/uLNormal1.45-7.50[facility] on above:Order Comment: Specimen Type: BLOOD SPECIMENOrdering Facility: [facility] Address:[address] [place], [place] [address]Performed By: #### 03362-5 ####[facility] LABCLIA [id number] [place], [place] [address]Ityaulpiigv/100 WBC (Bld)66.5 %NormalBerger Hospital on above:Order Comment: Specimen Type: BLOOD SPECIMENOrdering Facility: [facility] Address:[address] [place], [place] [address]Performed By: #### 82889-3 ####[facility] LABCLIA [id number] [place], [place] [address]Lhugrkwjv RBC (Bld) [#/Vol] 10*3/uLNormal<0.01[facility] on above:Order Comment: Specimen Type: BLOOD SPECIMENOrdering Facility: [facility] Address:[address] [place], [place] [address]Performed By: #### 81305-1 ####[facility] LABCLIA [id number] [place], [place] [address]Ooshjowba RBC/100 WBC (Bld) [Ratio]0.0 /100 WBCNormal [facility] on above:Order Comment: Specimen Type: BLOOD SPECIMENOrdering Facility: [facility] Address:[address] [place], [place] [address]Performed By: #### 39072-9 ####[facility] LABCLIA [id number] [place], [place] [address]Zqyretwk mean volume (Bld) [Entitic vol]9.3 fLNormal9.0-12.7CSelect [facility] [place] on above:Order Comment: Specimen Type: BLOOD SPECIMENOrdering Facility: [facility] Address:[address] [place] [address] Performed By: #### 56886-2 ####[facility] LABCLIA [id number] [place], [place] [address]Uetfqmgib (Bld) [#/Vol]227 10*3/oFQrlolu211-576PpnhdtbmwBerger Hospital on above:Order Comment: Specimen Type: BLOOD SPECIMENOrdering Facility: [facility] Address:[address] [place], [place] [address]Performed By: #### 13728-5 ####[facility] LABCLIA [id number] [place], [place] [address]UAG (Bld) [#/Vol]4.37 10*6/uLNormal4.20-6.00[facility] on above:Order Comment: Specimen Type: BLOOD SPECIMENOrdering Facility: [facility] Address:[address] [place], [place] [address]Performed By: #### 39096-2 ####[facility] LABCLIA [id number] [place], [place] [address]EXP (Bld) [#/Vol]9.01 10*3/uLNormal3.70-11.00[facility] on above: Order Comment: Specimen Type: BLOOD SPECIMENOrdering Facility: [facility] Address:[address] [place], [place] [address]Performed By: #### 68872- 8 ####[facility] LABCLIA [id number] [place], [place] [address]ERJ CBC W AUTO DIFF BLDon [id number] BASOPHILS # BLD AUTO0.06NINFNOMS HealthcareF DIFFERENTIAL METHOD BLDAutoNOMS HealthcareCCF EOSINOPHIL # BLD AUTO0.32NINFNOMS HealthcareCCF LYMPHOCYTES # BLD AUTO1.55NOMS HealthcareCCF MONOCYTES # BLD AUTO1.03HighNINFNOCA HealthcareF NEUTROPHILS # BLD [id number] HealthcareCCF NRBC # BLD AUTO<0.01NINFNOMS HealthcareF NRBC/100 WBC BLD-RTO0/100 WBCNOSaint Mary's Hospital of Blue SpringsF PLATELET # BLD [id number] Hospital South, formerly St. Anthony's Medical CenterCCF PMV BLD AUTO9.3 fL9.0 - 12.7 fLNOMercy Hospital South, formerly St[address] Anthony's Medical CenterCCF WBC # BLD AUTO9.01NOCA HealthcareIMM GRANULOCYTES # BLD AUTO0.05NINFNOBothwell Regional Health Center GRANULOCYTES/LEUK NFR BLD AUTO0.6 %[facility] HealthcareMCHC (RBC) [Mass/Vol]34 g/dL 30.5 - 36.0 g/dLNOMercy Hospital South, formerly St. Anthony's Medical CenterSpecimen Type: BLOOD SPECIMEN [facility] Address: [address] [place] [address] Original Ordering Provider: LINETTE White [id number] Visit (SP) Office ([place]) DOC BURNS ([id number]) 1950 Jeffrey Stubbs Date Time Provider Department 09/12/24 1:20 PM LINETTE BAI During your visit today, we recorded the following information about you: Temperature Pulse Respiration Blood pressure 97.7 degrees 56/minute 18/minute 122/68 Weight 80.2 kg Linette Bai MD 09/13/2024 12:54 PM Signed NAME: Doc Burns CLINIC NO.: [id number] DATE OF SERVICE: September 12, 2024 (Zac) Some elements in this clinic note that are critical to medical decision making have been carefully reviewed and included from a prior clinic note dated: July 24, 2024 (Zac) Referring Provider: Dr. Shaikh Etienne Additional Clinicians involved in Doc Burns's care: Richard Lentz DO DIAGNOSIS: lung cancer ASSESSMENT: 74 [...] mucus plugging and endobronchi (more content not included)...NormalClinton Memorial HospitalCNPNon 09-12-2024 CNPNTelephone (NCCAP) DOC BURNS ([id number]) 1950 Jeffrey Laguerre* Date Time Provider Department 09/12/24 LINETTE BAI [facility] During your visit today, we recorded the following information about you: Jasen Laughlin 09/12/2024 1:54 PM Signed Adenike Rosas RN 09/13/2024 7:57 AM Signed Darleen: Please review and advise on any need to modify plan JERONIMO Wyatt Natalie, RN 09/13/2024 12:59 PM Signed Linette Bai MD P [facility] Triage Pool 1. Multiple subcentimeter nodular opacities, most are stable but some are slightly smaller since 07/19/24. 2. No evidence of new intrathoracic abnormalities. Scan looks great!! Adenike Rosas RN 09/13/2024 12:59 PM Signed Clarified to continue with CT/appt, as previously scheduled, 11/07/24. Pt updated and agreeable to plan of care. Pt denies any questions, needs or concerns at this time. Adenike Rosas RN Allergies As of Date: 09/12/2024 [...] [Z95.1] 01/05/2022 HTN ( (more content not included)...NormalMain Campus Medical Center CHEST W IVCONon [id number] CHEST W IVCON* * *Final Report* * * DATE OF EXAM: Sep 12 2024 1:05PM [facility] 0539 - CT CHEST W IVCON / [...] abdomen: No evidence of an adrenal mass. Clam Bed Worker (topogram) images: No additional findings. IMPRESSION: [...] any questions regarding this interpretation, please call [phone]. If you are unable to reach us at the number above, please feel free to contact [facility] eRadiology at [phone]. [id number]_[email or web address] Campus Medical Center Chest W contrast Beth 07-04-8637DKMGOOFQIN: 1. Multiple subcentimeter nodular opacities, most are [...] any questions regarding this interpretation, please call [phone]. If you are unable to reach us at the number above, please feel free to contact [facility] eRadiology at [phone].DIVISION OF RADIOLOGY* * *Final Report* * * DATE OF EXAM: Sep 12 2024 1:05PM [facility] 0539 - CT CHEST W IVCON / [...] abdomen: No evidence of an adrenal mass. Clam Bed Worker (topogram) images: No additional findings. DIVISION OF RADIOLOGYProvider, [facility] [place] - 09/12/2024 * * *Final Report* * * DATE OF EXAM: Sep 12 2024 1:05PM [facility] 0539 - CT CHEST W IVCON / [...] abdomen: No evidence of an adrenal mass. Clam Bed Worker (topogram) images: No additional findings. IMPRESSION IMPRESSION: [...] any questions regarding this interpretation, please call [phone]. If you are unable to reach us at the number above, please feel free to contact [facility] eRadiology at [phone]. [facility]* * *Final Report* * * DATE OF EXAM: Sep 12 2024 1:05PM [facility] 0539 - CT CHEST W IVCON / [...] abdomen: No evidence of an adrenal mass. Clam Bed Worker (topogram) images: No additional findings. IMPRESSION: [...] any questions regarding this interpretation, please call [phone]. If you are unable to reach us at the number above, please feel free to contact [facility] at [phone]. [id number]^[email or web address]_IDC^SI^ACNCCFRadiology, Radiologist, - 09/12/2024 * * *Final Report* * * DATE OF EXAM: Sep 12 2024 1:05PM [facility] 0539 - CT CHEST W IVCON / [...] abdomen: No evidence of an adrenal mass. Clam Bed Worker (topogram) images: No additional findings. IMPRESSION: [...] any questions regarding this interpretation, please call [phone]. If you are unable to reach us at the number above, please feel free to contact [facility] at [phone]. [id number]^AGFA_IDC^SI^ACN [facility] HealthcareRadiology Study observation (narrative)[facility] Healthcare SystemRadiology Study observation (narrative)[facility] HealthcareCT Chest W contrast IVOrdered By: Ccf Provider on 45-76-0714Ywcspipbm ClinicComprehensive metabolic 2000 panel Ordered By: Oanh Vivar on 90-15-0773Wzaomdo [Mass/Vol]4.3 g/dL3.9 - 4.9 g/dL [facility] ClinicALP [Catalytic activity/Vol]97 U/L38 - 113 U/LCleveland Clinic ALT [Catalytic activity/Vol]8 U/LLow10 - 54 U/LCleveland ClinicAnion gap [Moles/Vol]10 mmol/L8 - 15 mmol/LCleveland ClinicAST [Catalytic activity/Vol]15 U/L14 - 40 U/LCleveland ClinicBilirubin [Mass/Vol]0.4 mg/dL0.2 - 1.3 mg/dL [facility] ClinicCalcium [Mass/Vol]9.3 mg/dL8.5 - 10.2 mg/dLAcmc Healthcare System Chloride [Moles/Vol]102 mmol/L98 - 107 mmol/LCleveland ClinicCO2 [Moles/Vol]25 mmol/L22 - 30 mmol/LCleveland ClinicCreatinine [Mass/Vol]0.94 mg/dL0.73 - 1.22 mg/dLChardon ClinicGFR/1.73 sq M.predicted among non-blacks MDRD (S/P/Bld) [Vol rate/Area]86 mL/min/{1.73_m2}- PINFCleveland ClinicComment on above: Estimated Glomerular Filtration Rate (eGFR) is calculated using the 2020 CKD-EPI creatinine equation. This equation utilizes serum creatinine, sex, and age as parameters. The creatinine assay has traceable calibration to isotope dilution- mass spectrometry. Refer to KDIGO guidelines for clinical interpretation. In patients with unstable renal function, e.g. those with acute kidney injury, the eGFRmay not accurately reflect actual GFR.Glucose [Mass/Vol]95 mg/dL74 - 99 mg/dLAcmc Healthcare SystemComment on above:The [place] Diabetes Association (ADA) provides guidance for cutoff values for fasting glucose andrandom glucose. The ADA defines fasting as no caloric intake for at least 8 hours. Fasting plasma gl ucose results between 100 to 125 mg/dL indicate [...] Standards of Medical Care in Diabetes 2016, [place] Diabetes Association. Diabetes Care. 2016.39(Suppl 1). Interpretation and review of laboratory resultsAbnormalCleveland ClinicPotassium [Moles/Vol]4.3 mmol/L3.7 - 5.1 mmol/LCleveland ClinicProtein [Mass/Vol]7.5 g/dL 6.3 - 8.0 g/dLClecincinnati va medical center ClinicSodium [Moles/Vol]137 mmol/L136 - 144 mmol/L [facility] Healthcare SystemUrea nitrogen [Mass/Vol]19 mg/dL9 - 24 mg/dLWestern Reserve Hospitalprehensive metabolic 2000 panelon 40-48-3929Yeikcwf [Mass/Vol]4.3 g/dLNormal3.9-4.9CSelect Medical [facility] [place] on above:Order Comment: Specimen Type: BLOOD SPECIMENOrdering Facility: [facility] Address:[address] [place], [place] [address]Performed By: #### 89754- 8 ####[facility] LABCLIA [id number] [place], [place] [address]HBN [Catalytic activity/Vol]97 U/EIcnvmq27-994KohrdhwrlBerger Hospital on above:Order Comment: Specimen Type: BLOOD SPECIMENOrdering Facility: [facility] Address:[address] [place], [place] [address]Performed By: #### 60504-8 ####[facility] LABCLIA [id number] [place], [place] [address]IAL [Catalytic activity/Vol]8 U/ZSvi29-40LsjpttyegBerger Hospital on above:Order Comment: Specimen Type: BLOOD SPECIMENOrdering Facility: [facility] Address:[address] [place], [place] [address]Performed By: #### 22455- 8 ####[facility] LABCLIA [id number] [place], [place] [address]Rdfky gap [Moles/Vol]10 mmol/LNormal8-15[facility] on above:Order Comment: Specimen Type: BLOOD SPECIMENOrdering Facility: [facility] Address:[address] [place], [place] [address]Performed By: #### 25576-2 ####[facility] LABCLIA [id number] [place], [place] [address]MRE [Catalytic activity/Vol]15 U/XIvgpim45-74UoentnksjBerger Hospital on above:Order Comment: Specimen Type: BLOOD SPECIMENOrdering Facility: [facility] Address:[address] [place], [place] [address]Performed By: #### 83177-7 ####[facility] LABCLIA [id number] [facility] [place] [address] Bilirubin [Mass/Vol]0.4 mg/dLNormal0.2-1.3CSelect Medical [facility] [place] on above:Order Comment: Specimen Type: BLOOD SPECIMENOrdering Facility: [facility] Address:[address] [place], [place] [address]Performed By: #### 71932-2 ####[facility] LABCLIA [id number] [facility] CENTERMARTINEZWATSONTOWN, [place] [address]Pfbskbh [Mass/Vol]9.3 mg/dLNormal8.5-10.2CSelect [facility] [place] on above:Order Comment: Specimen Type: BLOOD SPECIMENOrdering Facility: [facility] Address:[address] [place], [place] [address]Performed By: #### 56817-4 ####[facility] LABCLIA [id number] [facility] CENTERMARTINEZWHITE MOUNTAIN REGIONAL MEDICAL CENTERSUMITTRENT, [place] [address]Jdpnvejz [Moles/Vol]102 mmol/HBageat30-841HdoquhxoiBerger Hospital on above: Order Comment: Specimen Type: BLOOD SPECIMENOrdering Facility: [facility] Address:[address] [place], [place] [address]Performed By: #### 68822- 8 ####[facility] LABCLIA [id number] [facility] YENWHITE MOUNTAIN REGIONAL MEDICAL CENTERSUMITTRENT, [place] [address]VS8 [Moles/Vol]25 mmol/IBevnlk68-34KbszylwfyBerger Hospital on above:Order Comment: Specimen Type: BLOOD SPECIMENOrdering Facility: [facility] Address:[address] [place], [place] [address]Performed By: #### 99019-9 ####[facility] LABCLIA [id number] [place], [place] [address]Vssafsrrit [Mass/Vol]0.94 mg/dL Normal0.73-1.22[facility] on above:Order Comment: Specimen Type: BLOOD SPECIMENOrdering Facility: [facility] Address:[address] [place] [address]Mqeoaxjrr By: #### 42932-3 ####[facility] LABCLIA [id number] [place], [place] [address]Jfelojweql and Glomerular filtration rate.predicted panel (S/P/Bld)86 mL/min/1.73m???Normal>=60[facility] on above:Order Comment: Specimen Type: BLOOD SPECIMENOrdering Facility: [facility] Address:[address] [place] [address]Gblpia Comment: Estimated Glomerular Filtration Rate (eGFR) is calculated using the 2020 CKD-EPI creatinine equation. This equation utilizes serum creatinine, sex, and age as parameters. The creatinine assay has traceable calibration to isotope dilution- mass spectrometry. Refer to KDIGO guidelines for clinical interpretation. In patients with unstable renal function, e.g. those with acute kidney injury, the eGFR may not accurately reflect actual GFR.Performed By: #### 93453-1 ####[facility] LABCLIA [id number] [place], [place] [address]Cgjjgbl [Mass/Vol]95 mg/tDRfqqrl65-52XbanmafhtBerger Hospital on above:Order Comment: Specimen Type: BLOOD SPECIMENOrdering Facility: [facility] Address:[address] [place] [address]Ecpyqe Comment: The [place] Diabetes Association (ADA) provides guidance for cutoff values for fasting glucose and random glucose. The ADA defines fasting as no caloric intake for at least 8 hours. Fasting plasma glucose results between 100 to 125 mg/dL indicate increased risk for diabetes (prediab etes). Fasting plasma glucose results greater than or [...] Standards of Medical Care in Diabetes 2016, [place] Diabetes Association. Diabetes Care. 2016.39(Suppl 1).Performed By: #### 38992-7 ####[facility] LABCLIA [id number] [place], [place] [address]Izoxebdxi [Moles/Vol]4.3 mmol/LNormal3.7-5.1CSelect [facility] on above:Order Comment: Specimen Type: BLOOD SPECIMENOrdering Facility: [facility] Address:[address] [place], [place] [address]Performed By: #### 64494-3 ####[facility] LABCLIA [id number] [place], [place] [address]Dguflic [Mass/Vol]7.5 g/dLNormal6.3-8.0[facility] on above:Order Comment: Specimen Type: BLOOD SPECIMENOrdering Facility: [facility] Address:[address] [place], [place] [address]Performed By: #### 70053- 8 ####[facility] LABCLIA [id number] [place], [place] [address]Czfixs [Moles/Vol]137 mmol/IQekawc797-785HttvdjgsvBerger Hospital on above:Order Comment: Specimen Type: BLOOD SPECIMENOrdering Facility: [facility] Address:[address] [place], [place] [address]Performed By: #### 51998-7 ####[facility] LABCLIA [id number] [place], [place] [address]Icsg nitrogen [Mass/Vol]19 mg/dLNormal9-24[facility] on above:Order Comment: Specimen Type: BLOOD SPECIMENOrdering Facility: [facility] Address:[address] [place], [place] [address]Performed By: #### 42885-1 ####[facility] LABCLIA [id number] [place], [place] [address]Jmgwdzpbbw - Hematology and Cell countson 09-12-2024 Basophils/100 WBC (Bld)0.7 %NOMS HealthcareEosinophils/100 WBC (Bld)3.6 %NOMS HealthcareErythrocyte distribution width (RBC) [Ratio]13.2 %11.5 - 15.0 %NOMS HealthcareHematocrit (Bld) [Volume fraction]39.7 %39.0 - 51.0 %[facility]OMFitzgibbon [facility] Hemoglobin (Bld) [Mass/Vol]13.5 g/dL13.0 - 17.0 g/dLCitizens Memorial Healthcare Lymphocytes/100 WBC (Bld)17.2 %Citizens Memorial HealthcareMCH (RBC) [Entitic mass]30.9 pg 26.0 - 34.[address] pgNOMercy Hospital South, formerly [address] Anthony's Medical CenterMCV (RBC) [Entitic vol]90.8 fL80.0 - 100.[address] fLNOMercy Hospital South, formerly [address] Anthony's Medical CenterMonocytes/100 WBC (Bld)11.4 %NOMS HealthcareNeutrophils/100 WBC (Bld) 66.5 %NOMS HealthcareRBC (Bld) [#/Vol]4.37 10*6/uL4.20 - 6.00 [facility] HospitalNo Panel Informationon 62-35-4998Pslslpvkyyykbb and review of laboratory resultsAbnormFox Chase Cancer Center HealthcareCNOVSPon 07-24-2024 CNOVSPVisit (SP) Office ([place]) DOC BURNS ([id number]) 1950 M [facility]* Date Time Provider Department 07/24/24 11:20 AM LINETTE BAI During your visit today, we recorded the following information about you: Temperature Pulse Respiration Blood pressure 97.8 degrees 49/minute 16/minute 119/64 Weight Height 83.5 kg 1.676 m Linette Bai MD 07/24/2024 5:20 PM Signed NAME: Doc Burns CLINIC NO.: [id number] DATE OF SERVICE: July 24, 2024 (Zac) Some elements in this clinic note that are critical to medical decision making have been carefully reviewed and included from a prior clinic note dated: April 18, 2024 (Zac) Referring Provider: Dr. Shaikh Etienne Additional Clinicians involved in Doc Burns's care: Richard Lentz DO DIAGNOSIS: lung cancer ASSESSMENT: 74 [...] 6-month gap between resection and presentation to nm. He remains at high risk because of [...] thrombosis 11/10/2023 - C (more content not included)...NormalClinton Memorial HospitalCT ABD/PEL W IVCONon 07-22-2024* * *Final Report* * * DATE OF EXAM: Jul 19 2024 12:28PM [facility] [place] 0530 - CT ABD/PEL W IVCON / [...] performed concurrently and will be dictated separately. Clam Bed Worker (topogram) images: No additional findings. IMPRESSION: [...] any questions regarding this interpretation, please call [phone]. If you are unable to reach us at the number above, please feel free to contact [facility] at [phone]. [id number]^AGFA_IDC^SI^ACNCCFRadiology, RadiologistMD - 07/22/2024 * * *Final Report* * * DATE OF EXAM: Jul 19 2024 12:28PM [facility] [place] 0530 - CT ABD/PEL W IVCON / [...] performed concurrently and will be dictated separately. Clam Bed Worker (topogram) images: No additional findings. IMPRESSION: [...] any questions regarding this interpretation, please call [phone]. If you are unable to reach us at the number above, please feel free to contact [facility] at [phone]. [id number]^AGFA_IDC^SI^ACN NOMS HealthcareCT Chest W contrast Beth 07-22-2024* * *Final Report* * * DATE OF EXAM: Jul 19 2024 12:28PM [facility] 0539 - CT CHEST W IVCON / [...] performed concurrently and will be dictated separately. Clam Bed Worker (topogram) images: No additional findings. IMPRESSION: [...] any questions regarding this interpretation, please call [phone]. If you are unable to reach us at the number above, please feel free to contact [facility] at [phone]. [id number]^AGFA_IDC^SI^ACNCCFRadiology, Radiologist, - 07/22/2024 * * *Final Report* * * DATE OF EXAM: Jul 19 2024 12:28PM [facility] 0539 - CT CHEST W IVCON / [...] performed concurrently and will be dictated separately. Clam Bed Worker (topogram) images: No additional findings. IMPRESSION: [...] any questions regarding this interpretation, please call [phone]. If you are unable to reach us at the number above, please feel free to contact [facility] at [phone]. [id number]^AGFA_IDC^SI^ACN NOMS HealthcareNo Panel InformationOrdered By: Radiologist Radiology on 16-25-5761[facility] Work Phone: cbc W Auto Differential panel (Bld)on 07-19-2024 Basophils (Bld) [#/Vol]0.07 10*3/uLNINFAcmc Healthcare SystemDifferential cell count method Nom (Bld)AutoCleveland ClinicEosinophils (Bld) [#/Vol]0.28 10*3/uLNINF [facility] SystemErythrocyte distribution width (RBC) [Ratio]13.0 %11.5 - 15.0 % [facility] SystemImmature granulocytes (Bld) [#/Vol]0.03 10*3/uLNINFAcmc Healthcare SystemImmature granulocytes/100 WBC (Bld)0.4 %[facility] SystemLymphocytes (Bld) [#/Vol]1.44 10*3/uLChardon ClinicMonocytes (Bld) [#/Vol]0.89 10*3/uLHighNINF [facility] SystemNeutrophils (Bld) [#/Vol]4.77 10*3/uLAcmc Healthcare SystemNucleated RBC (Bld) [#/Vol]NINFCUpper Valley Medical CenterNucleated RBC/100 WBC (Bld) [Ratio]0.0 % /100 WBCAcmc Healthcare SystemPlatelet mean volume (Bld) [Entitic vol]10.6 fL9.0 - 12.7 fLCtrumbull regional medical center ClinicPlatelets (Bld) [#/Vol]236 10*3/uLChardon ClinicWBC (Bld) [#/Vol]7.48 10*3/uLAcmc Healthcare SystemBasophils (Bld) [#/Vol]0.07 10*3/uL Normal<0.11CSelect Medical [facility] [place] on above:Order Comment: Specimen Type: BLOOD SPECIMENOrdering Facility: [facility] Address:[address] [place], [place] [address]Performed By: #### 47335-3 ####[facility] LABIA [id number] [place] [address] Basophils/100 WBC (Bld)0.9 %NormalBerger Hospital on above: Order Comment: Specimen Type: BLOOD SPECIMENOrdering Facility: [facility] Address:[address] [place], [place] [address]Performed By: #### 17446- 8 ####[facility] LABCLIA [id number] [place], [place] [address]Jjogxpvjsunj cell count method Nom (Bld)AutoNormal [facility] on above:Order Comment: Specimen Type: BLOOD SPECIMENOrdering Facility: [facility] Address:[address] [place], [place] [address]Performed By: #### 13643-7 ####[facility] LABIA [id number] [place], [place] [address]Joxzlwnptxa (Bld) [#/Vol]0.28 10*3/uLNormal<0.46[facility] on above: Order Comment: Specimen Type: BLOOD SPECIMENOrdering Facility: [facility] Address:[address] [place], [place] [address]Performed By: #### 86472- 8 ####[facility] LABCLIA [id number] [place], [place] [address]Gbpfpuwlkes/100 WBC (Bld)3.7 %NormalBerger Hospital on above:Order Comment: Specimen Type: BLOOD SPECIMENOrdering Facility: [facility] Address:[address] [place], [place] [address]Performed By: #### 53593-3 ####[facility] LABIA [id number] [place], [place] [address]Iyoapkylmuo distribution width (RBC) [Ratio]13.0 %Omczxw62.5-15.0[facility] on above: Order Comment: Specimen Type: BLOOD SPECIMENOrdering Facility: [facility] Address:[address] [place], [place] [address]Performed By: #### 47833- 8 ####[facility] LABCLIA [id number] [place], [place] [address]Rbdoctnphj (Bld) [Volume fraction]37.9 %Low39.0-51.0 [facility] on above:Order Comment: Specimen Type: BLOOD SPECIMENOrdering Facility: [facility] Address:[address] [place], [place] [address]Performed By: #### 25676-1 ####[facility] LABIA [id number] [place], [place] [address]Utmhaswjrz (Bld) [Mass/Vol]13.2 g/cUAbfdne51.0-17.0[facility] on above: Order Comment: Specimen Type: BLOOD SPECIMENOrdering Facility: [facility] Address:[address] [place], [place] [address]Performed By: #### 65742- 8 ####[facility] LABCLIA [id number] [place], [place] [address]Srvzsptp granulocytes (Bld) [#/Vol]0.03 10*3/uLNormal <0.10[facility] on above:Order Comment: Specimen Type: BLOOD SPECIMENOrdering Facility: [facility] Address:[address] [place], [place] [address]Performed By: #### 16077-3 ####[facility] LABCLIA [id number] [place], [place] [address]Lpnmfrbc granulocytes/100 WBC (Bld)0.4 %NormalBerger Hospital on above: Order Comment: Specimen Type: BLOOD SPECIMENOrdering Facility: [facility] Address:[address] [place], [place] [address]Performed By: #### 23202- 8 ####[facility] LABIA [id number] [place], [place] [address]Qvvctmimjrr (Bld) [#/Vol]1.44 10*3/uLNormal1.00-4.00 [facility] on above:Order Comment: Specimen Type: BLOOD SPECIMENOrdering Facility: [facility] Address:[address] [place], [place] [address]Performed By: #### 42540-3 ####[facility] LABIA [id number] [place], [place] [address]Ozxujzjyyes/100 WBC (Bld)19.3 %NormalBerger Hospital on above:Order Comment: Specimen Type: BLOOD SPECIMENOrdering Facility: [facility] Address:[address] [place], [place] [address]Performed By: #### 53875-6 ####[facility] LABIA [id number] [place], [place] [address]BKE (RBC) [Entitic mass]31.6 iyCsnztv56.0-34.0[facility] on above:Order Comment: Specimen Type: BLOOD SPECIMENOrdering Facility: [facility] Address:[address] [place], [place] [address]Performed By: #### 20305-8 ####[facility] LABCLIA [id number] [place], [place] [address]AXVU (RBC) [Mass/Vol]34.8 g/zXSkrfkb90.5-36.0[facility] on above: Order Comment: Specimen Type: BLOOD SPECIMENOrdering Facility: [facility] Address:[address] [place], [place] [address]Performed By: #### 73406- 8 ####[facility] LABCLIA [id number] [place], [place] [address]HFP (RBC) [Entitic vol]90.7 sBLfnwqx61.0-100.0[facility] on above:Order Comment: Specimen Type: BLOOD SPECIMENOrdering Facility: [facility] Address:[address] [place], [place] [address]Performed By: #### 87131-6 ####[facility] LABCLIA [id number] [place], [place] [address]Ecrieyags (Bld) [#/Vol]0.89 10*3/uLHigh<0.87[facility] on above:Order Comment: Specimen Type: BLOOD SPECIMENOrdering Facility: [facility] Address:[address] [place], [place] [address]Performed By: #### 96324- 8 ####[facility] LABIA [id number] [place], [place] [address]Itpfymnca/100 WBC (Bld)11.9 %NormalBerger Hospital on above:Order Comment: Specimen Type: BLOOD SPECIMENOrdering Facility: [facility] Address:[address] [place], [place] [address]Performed By: #### 12875-2 ####[facility] LABCLIA [id number] [place], [place] [address]Hlyryyoysvx (Bld) [#/Vol]4.77 10*3/uLNormal1.45-7.50[facility] on above:Order Comment: Specimen Type: BLOOD SPECIMENOrdering Facility: [facility] Address:[address] [place], [place] [address]Performed By: #### 12306-0 ####[facility] LABCLIA [id number] [place], [place] [address]Pdosknefvpy/100 WBC (Bld)63.8 %NormalBerger Hospital on above:Order Comment: Specimen Type: BLOOD SPECIMENOrdering Facility: [facility] Address:[address] [place], [place] [address]Performed By: #### 95095-8 ####[facility] LABCLIA [id number] [place], [place] [address]Wvxbngzxw RBC (Bld) [#/Vol] 10*3/uLNormal<0.01[facility] on above:Order Comment: Specimen Type: BLOOD SPECIMENOrdering Facility: [facility] Address:[address] [place], [place] [address]Performed By: #### 63225-1 ####[facility] LABCLIA [id number] [place], [place] [address]Bujgxhbda RBC/100 WBC (Bld) [Ratio]0.0 /100 WBCNormal [facility] on above:Order Comment: Specimen Type: BLOOD SPECIMENOrdering Facility: [facility] Address:[address] [place], [place] [address]Performed By: #### 05489-8 ####[facility] LABIA [id number] [place], [place] [address]Lytrdkvl mean volume (Bld) [Entitic vol]10.6 fLNormal9.0-12.7CSelect [facility] [place] on above:Order Comment: Specimen Type: BLOOD SPECIMENOrdering Facility: [facility] Address:[address] [place] [address] Performed By: #### 26909-5 ####[facility] LABCLIA [id number] [place], [place] [address]Dhjxqgtep (Bld) [#/Vol]236 10*3/nPGqieki015-383RucscczbfBerger Hospital on above:Order Comment: Specimen Type: BLOOD SPECIMENOrdering Facility: [facility] Address:[address] [place], [place] [address]Performed By: #### 14211-4 ####[facility] LABCLIA [id number] [place], [place] [address]MWP (Bld) [#/Vol]4.18 10*6/uLLow4.20-6.00[facility] on above:Order Comment: Specimen Type: BLOOD SPECIMENOrdering Facility: [facility] Address:[address] [place], [place] [address]Performed By: #### 50261-4 ####[facility] LABCLIA [id number] [place], [place] [address]URF (Bld) [#/Vol]7.48 10*3/uL Normal3.70-11.00[facility] on above:Order Comment: Specimen Type: BLOOD SPECIMENOrdering Facility: [facility] Address:[address] [place], [place] [address]Performed By: #### 81841-4 ####[facility] LABCLIA [id number] [place], [place] [address]HGB CBC W AUTO DIFF BLDon 32-02-9795ATJ BASOPHILS # BLD AUTO0.07NINFNOMS HealthcareF DIFFERENTIAL METHOD BLDAutoNOMS HealthcareCCF EOSINOPHIL # BLD AUTO0.28NINFNOMS HealthcareCCF LYMPHOCYTES # BLD AUTO1.44NOCox North MONOCYTES # BLD AUTO0.89HighNINFMissouri Southern Healthcare NEUTROPHILS # BLD AUTO4.77NOSaint Mary's Hospital of Blue SpringsF NRBC # BLD AUTO<0.01NINFMissouri Southern Healthcare NRBC/100 WBC BLD-RTO0/100 WBCNOCox North PLATELET # BLD PIRG726RPWRCox North PMV BLD AUTO10.6 fL9.0 - 12.7 fLNOCox North WBC # BLD AUTO 7.48NOMercy Hospital South, formerly St. Anthony's Medical CenterErythrocyte distribution width (RBC) [Ratio]13 %11.5 - 15.0 % NOMS Protestant Deaconess HospitalIM GRANULOCYTES # BLD AUTO0.03NINFSoutheast Missouri Community Treatment Center GRANULOCYTES/LEUK NFR BLD AUTO0.4 %NOMS HealthcareSpecimen Type: BLOOD SPECIMEN [facility] Address: [address] [place] [address] Original Ordering Provider: LINETTE DREWISYAZCCRobert COMP METAB 2000 PNL SERPLon 15-11-4444XFB AST SERPL-CCNC13 U/LLow14 - 40 U/LNOMS [facility] BILIRUB SERPL-MCNC0.4 mg/dL0.2 - 1.3 mg/dLMissouri Southern Healthcare PROT SERPL-MCNC7.4 g/dL6.3 - 8.0 g/dLCitizens Memorial HealthcareGFR/1.73 sq M.predicted CKD-EPI (S/P/Bld) [Vol rate/Area]80- PINFNOMS HealthcareComment on above:Estimated Glomerular Filtration Rate (eGFR) is calculated using the 2020 CKD-EPI creatinine equation. This equation utilizes serum creatinine, sex, and age as parameters. The creatinine assay has traceable calibration to isotope dilution-mass spectrometry. Refer to KDIGO guidelines for clinical interpretation. In patients with unstable renal function, e.g. those with acute kidney injury, the eGFRmay not accurately reflect actual GFR.Specimen Type: BLOOD SPECIMEN [facility] Address: [address] [place] [address] Original Ordering Provider: LINETTE DREWISYNCCT ABD/PEL W IVCONon 49-55-6970MM ABD/PEL W IVCON* * *Final Report* * * DATE OF EXAM: Jul 19 2024 12:28PM [facility] [place] 0530 - CT ABD/PEL W IVCON / [...] performed concurrently and will be dictated separately. Clam Bed Worker (topogram) images: No additional findings. IMPRESSION: [...] any questions regarding this interpretation, please call [phone]. If you are unable to reach us at the number above, please feel free to contact [facility] at [phone]. [id number]_IDCSIACNNormalClinton Memorial HospitalCT CHEST W IVCONon 57-96-0585WX CHEST W IVCON* * *Final Report* * * DATE OF EXAM: Jul 19 2024 12:28PM [facility] 0539 - CT CHEST W IVCON / [...] performed concurrently and will be dictated separately. Clam Bed Worker (topogram) images: No additional findings. IMPRESSION: [...] any questions regarding this interpretation, please call [phone]. If you are unable to reach us at the number above, please feel free to contact [facility] at [phone]. [id number]_IDCSIACNNormalClinton Memorial HospitalComprehensive metabolic 2000 panelOrdered By: Dolly Muhammad on 72-10-7884CMQ [Catalytic activity/Vol]13 U/LLow14 - 40 U/LCleveland ClinicBilirubin [Mass/Vol]0.4 mg/dL0.2 - 1.3 mg/dL [facility] Healthcare SystemGFR/1.73 sq M.predicted among non-blacks MDRD (S/P/Bld) [Vol rate/Area]80 mL/min/{1.73_m2}- PINFCleveland ClinicComment on above:Estimated Glomerular Filtration Rate (eGFR) is calculated using the 2020 CKD-EPI creatinine equation. This equation utilizes serum creatinine, sex, and age as parameters. The creatinine assay has traceable calibration to isotope dilution- mass spectrometry. Refer to KDIGO guidelines for clinical interpretation. In patients with unstable renal function, e.g. those with acute kidney injury, the eGFRmay not accurately reflect actual GFR.Protein [Mass/Vol]7.4 g/dL6.3 - 8.0 g/dLMemorial Hospitalprehensive metabolic 2000 panelon 32-53-0178Ezwoxol [Mass/Vol]4.1 g/dLNormal3.9-4.9CSelect Medical [facility] [place] on above:Order Comment: Specimen Type: BLOOD SPECIMENOrdering Facility: [facility] Address:[address] [place], [place] [address]Performed By: #### 72607- 8 ####[facility] LABCLIA [id number] [place], [place] [address]SPP [Catalytic activity/Vol]97 U/GEbnlhn12-088VblwvjkxeBerger Hospital on above:Order Comment: Specimen Type: BLOOD SPECIMENOrdering Facility: [facility] Address:[address] [place], [place] [address]Performed By: #### 04662-2 ####[facility] LABCLIA [id number] [place], [place] [address]XLM [Catalytic activity/Vol]7 U/SHsl86-50JlkwyifekBerger Hospital on above:Order Comment: Specimen Type: BLOOD SPECIMENOrdering Facility: [facility] Address:[address] [place], [place] [address]Performed By: #### 35394- 8 ####[facility] LABCLIA [id number] [place], [place] [address]Xvwdi gap [Moles/Vol]8 mmol/LNormal8-15[facility] on above:Order Comment: Specimen Type: BLOOD SPECIMENOrdering Facility: [facility] Address:[address] [place], [place] [address]Performed By: #### 57044-0 ####[facility] LABCLIA [id number] [place], [place] [address]PFG [Catalytic activity/Vol]13 U/SKtr78-04OoywatbbjBerger Hospital on above:Order Comment: Specimen Type: BLOOD SPECIMENOrdering Facility: [facility] Address:[address] [place], [place] [address]Performed By: #### 87472-3 ####[facility] LABCLIA [id number] [place] [address] Bilirubin [Mass/Vol]0.4 mg/dLNormal0.2-1.3CSelect [facility] [place] on above:Order Comment: Specimen Type: BLOOD SPECIMENOrdering Facility: [facility] Address:[address] [place], [place] [address]Performed By: #### 86698-7 ####[facility] LABCLIA [id number] [facility] MED[facility] CENTERMARTINEZW[place], [place] [address]Dxhqyie [Mass/Vol]9.4 mg/dLNormal8.5-10.2CSelect [facility] [place] on above:Order Comment: Specimen Type: BLOOD SPECIMENOrdering Facility: [facility] Address:[address] [place], [place] [address]Performed By: #### 37292-0 ####[facility] LABCLIA [id number] [place], [place] [address]Rmvyuady [Moles/Vol]106 mmol/NZdhyro80-027LlovipezhBerger Hospital on above: Order Comment: Specimen Type: BLOOD SPECIMENOrdering Facility: [facility] Address:[address] [place], [place] [address]Performed By: #### 95555- 8 ####[facility] LABCLIA [id number] [facility] [place], [place] [address]LP5 [Moles/Vol]25 mmol/BIyouvk20-37HmhclzttkBerger Hospital on above:Order Comment: Specimen Type: BLOOD SPECIMENOrdering Facility: [facility] Address:[address] [place] [address] [place] [address]Pqcrtwamg By: #### 19112-2 ####[facility] LABCLIA [id number] [place], [place] [address]Xpfolqpqqa [Mass/Vol]0.99 mg/dL Normal0.73-1.22[facility] on above:Order Comment: Specimen Type: BLOOD SPECIMENOrdering Facility: [facility] Address:[address] [place], [place] [address]Performed By: #### 70487-7 ####[facility] LABCLIA [id number] [place], [place] [address]Vkmyfxrbyz and Glomerular filtration rate.predicted panel (S/P/Bld)80 mL/min/1.73m???Normal>=60[facility] on above:Order Comment: Specimen Type: BLOOD SPECIMENOrdering Facility: [facility] Address:[address] [place], [place] [address]Result Comment: Estimated Glomerular Filtration Rate (eGFR) is calculated using the 2020 CKD-EPI creatinine equation. This equation utilizes serum creatinine, sex, and age as parameters. The creatinine assay has traceable calibration to isotope dilution- mass spectrometry. Refer to KDIGO guidelines for clinical interpretation. In patients with unstable renal function, e.g. those with acute kidney injury, the eGFR may not accurately reflect actual GFR.Performed By: #### 43110-2 ####[facility] LABIA [id number] [place], [place] [address]Knuaqvz [Mass/Vol]93 mg/yUNmptsx42-91BlnzzsivoBerger Hospital on above:Order Comment: Specimen Type: BLOOD SPECIMENOrdering Facility: [facility] Address:[address] [place], [place] [address]Result Comment: The [place] Diabetes Association (ADA) provides guidance for cutoff values for fasting glucose and random glucose. The ADA defines fasting as no caloric intake for at least 8 hours. Fasting plasma glucose results between 100 to 125 mg/dL indicate increased risk for diabetes (prediab etes). Fasting plasma glucose results greater than or [...] Standards of Medical Care in Diabetes 2016, [place] [employer]. Diabetes Care. 2016.39(Suppl 1).Performed By: #### 87524-2 ####[facility] LABCLIA [id number] [place], [place] [address]Isdcfhnug [Moles/Vol]4.2 mmol/LNormal3.7-5.1CSelect [facility] [place] on above:Order Comment: Specimen Type: BLOOD SPECIMENOrdering Facility: [facility] Address:[address] [place], [place] [address]Performed By: #### 12950-6 ####[facility] LABCLIA [id number] [place], [place] [address]Vqnnaob [Mass/Vol]7.4 g/dLNormal6.3-8.0[facility] on above:Order Comment: Specimen Type: BLOOD SPECIMENOrdering Facility: [facility] Address:[address] [place], [place] [address]Performed By: #### 49578- 8 ####[facility] LABCLIA [id number] [place], [place] [address]Xaejni [Moles/Vol]139 mmol/CTusdng976-761XrwuzqznlBerger Hospital on above:Order Comment: Specimen Type: BLOOD SPECIMENOrdering Facility: [facility] Address:[address] [place], [place] [address]Performed By: #### 74494-8 ####[facility] LABIA [id number] [place], [place] [address]Wxwc nitrogen [Mass/Vol]14 mg/dLNormal9-24[facility] on above:Order Comment: Specimen Type: BLOOD SPECIMENOrdering Facility: [facility] Address:[address] [place] [address], [place] [address]Krlmlxriq By: #### 66434-6 ####[facility] LABCLIA [id number] [place], [place] [address]Bxbrfkgqja - Chemistry and Chemistry - challengeOrdered By: Dolly Muhammad on 38-89-0890Ivxglcd [Mass/Vol]4.1 g/dL3.9 - 4.9 g/dLChardon ClinicALP [Catalytic activity/Vol]97 U/L38 - 113 U/LCleveland ClinicALT [Catalytic activity/Vol]7 U/LLow10 - 54 U/LCleveland ClinicAnion gap [Moles/Vol] 8 mmol/L8 - 15 mmol/LCleveland ClinicCalcium [Mass/Vol]9.4 mg/dL8.5 - 10.2 mg/dL Chardon ClinicChloride [Moles/Vol]106 mmol/L98 - 107 mmol/LCleveland ClinicCO2 [Moles/Vol]25 mmol/L22 - 30 mmol/LCleveland ClinicCreatinine [Mass/Vol]0.99 mg/dL0.73 - 1.22 mg/dLChardon ClinicGlucose [Mass/Vol]93 mg/dL74 - 99 mg/dL [facility] Healthcare SystemComment on above:The [place] Diabetes Association (ADA) provides guidance for cutoff values for fasting glucose andrandom glucose. The ADA defines fasting as no caloric intake for at least 8 hours. Fasting plasma gl ucose results between 100 to 125 mg/dL indicate [...] Standards of Medical Care in Diabetes 2016, [place] Diabetes Association. Diabetes Care. 2016.39(Suppl 1). Potassium [Moles/Vol]4.2 mmol/L3.7 - 5.1 mmol/LCleveland ClinicSodium [Moles/Vol]139 mmol/L136 - 144 mmol/LCleveland ClinicUrea nitrogen [Mass/Vol]14 mg/dL9 - 24 mg/dLAcmc Healthcare SystemLaboratory - Hematology and Cell countson 08-40-1582Arahrabxx/100 WBC (Bld)0.9 %[facility] SystemEosinophils/100 WBC (Bld) 3.7 %[facility] Healthcare SystemHematocrit (Bld) [Volume fraction]37.9 %Low39.0 - 51.0 % [facility] SystemHemoglobin (Bld) [Mass/Vol]13.2 g/dL13.0 - 17.0 g/dLAcmc Healthcare SystemLymphocytes/100 WBC (Bld)19.3 %[facility]field HospitalH (RBC) [Entitic mass] 31.6 pg26.0 - 34.0 pgClevelCass Lake HospitalHC (RBC) [Mass/Vol]34.8 g/dL30.5 - 36.0 g/dLMansfield HospitalV (RBC) [Entitic vol]90.7 fL80.0 - 100.0 fLCleveland ClinicMonocytes/100 WBC (Bld)11.9 %[facility] Healthcare SystemNeutrophils/100 WBC (Bld)63.8 %[facility] Healthcare SystemRBC (Bld) [#/Vol]4.18 10*6/uLLow4.20 - 6.00 m/uLAcmc Healthcare SystemNo Panel InformationOrdered By: Dolly Muhammad on 48-32-0117Icrdyvoakyydnx and review of laboratory resultsAbnormalCWood County HospitalNo Panel Informationon 37-14-0681Ohddppqooldgdc and review of laboratory resultsAbnormal [facility] CenterRadiology Study observation (narrative)NOMS [facility]acon[facility] HospitalCB W Auto Differential panel (Bld)on 55-76-7891Yngnjmwoe (Bld) [#/Vol]0.08 10*3/uLNINFChardon ClinicBasophils/100 WBC (Bld)0.8 %[facility] SystemDifferential cell count method Nom (Bld)AutoCleveland ClinicEosinophils (Bld) [#/Vol]0.44 10*3/uLNINFChardon ClinicEosinophils/100 WBC (Bld)4.4 % [facility] SystemErythrocyte distribution width (RBC) [Ratio]14.0 %11.5 - 15.0 % [facility] SystemHematocrit (Bld) [Volume fraction]39.6 %39.0 - 51.0 %[facility] SystemHemoglobin (Bld) [Mass/Vol]13.3 g/dL13.0 - 17.0 g/dLAcmc Healthcare System Immature granulocytes (Bld) [#/Vol]0.06 10*3/uLNINFAcmc Healthcare SystemImmature granulocytes/100 WBC (Bld)0.6 %[facility] SystemInterpretation and review of laboratory resultsAbnormalCtrumbull regional medical center ClinicLymphocytes (Bld) [#/Vol]1.91 10*3/uL [facility] SystemLymphocytes/100 WBC (Bld)19.1 %[facility]field HospitalH (RBC) [Entitic mass]31.0 pg26.0 - 34.0 pgClevelCass Lake HospitalHC (RBC) [Mass/Vol]33.6 g/dL30.5 - 36.0 g/dLMansfield HospitalV (RBC) [Entitic vol]92.3 fL80.0 - 100.0 fLCtrumbull regional medical center ClinicMonocytes (Bld) [#/Vol]1.07 10*3/uLHighNINFAcmc Healthcare System Monocytes/100 WBC (Bld)10.7 %[facility] Healthcare SystemNeutrophils (Bld) [#/Vol]6.42 10*3/uLAcmc Healthcare SystemNeutrophils/100 WBC (Bld)64.4 %[facility] SystemNucleated RBC (Bld) [#/Vol]NINFClevelMercy Health Perrysburg HospitalNucleated RBC/100 WBC (Bld) [Ratio]0.0 % /100 WBCAcmc Healthcare SystemPlatelet mean volume (Bld) [Entitic vol]9.6 fL9.0 - 12.7 fLCtrumbull regional medical center ClinicPlatelets (Bld) [#/Vol]280 10*3/uLAcmc Healthcare SystemRBC (Bld) [#/Vol]4.29 10*6/uL4.20 - 6.00 m/[facility] HospitalWBC (Bld) [#/Vol]9.98 10*3/uL [facility] Medical CenterCT Chest W contrast Beth 69-12-3670JGBVJSCPVJ: Mixed response to therapy as described. Transcribe Date/Time: Apr 18 2024 3:13P Dictated by: STANLEY SMITH MD This examination was interpreted and the report reviewed and electronically signed by: STANLEY SMITH MD on Apr 18 2024 3:29PM EST Thank you for allowing us to participate in the care of your patient. Should there be any questions regarding this interpretation, please call [phone]. If you are unable to reach us at the number above, please feel free to contact [facility] at [phone].DIVISION OF RADIOLOGY* * *Final Report* * * DATE OF EXAM: Apr 18 2024 11:04AM [facility] 0539 - CT CHEST W IVCON / [...] abdomen: Visualized upper abdomen is grossly unremarkable. Clam Bed Worker (topogram) images: Unremarkable. DIVISION OF RADIOLOGYProvider, [facility] [place] - 04/18/2024 * * *Final Report* * * DATE OF EXAM: Apr 18 2024 11:04AM [facility] 0539 - CT CHEST W IVCON / [...] abdomen: Visualized upper abdomen is grossly unremarkable. Clam Bed Worker (topogram) images: Unremarkable. IMPRESSION IMPRESSION: Mixed response [...] any questions regarding this interpretation, please call [phone]. If you are unable to reach us at the number above, please feel free to contact [facility] eRadiology at [phone]. [facility]* * *Final Report* * * DATE OF EXAM: Apr 18 2024 11:04AM [facility] 0539 - CT CHEST W IVCON / [...] abdomen: Visualized upper abdomen is grossly unremarkable. Clam Bed Worker (topogram) images: Unremarkable. IMPRESSION: Mixed response to [...] any questions regarding this interpretation, please call [phone]. If you are unable to reach us at the number above, please feel free to contact [facility] at [phone]. [id number]^AGFA_IDC^SI^ACNCCFRadiology, Radiologist, - 04/18/2024 * * *Final Report* * * DATE OF EXAM: Apr 18 2024 11:04AM [facility] 0539 - CT CHEST W IVCON / [...] abdomen: Visualized upper abdomen is grossly unremarkable. Clam Bed Worker (topogram) images: Unremarkable. IMPRESSION: Mixed response to [...] any questions regarding this interpretation, please call [phone]. If you are unable to reach us at the number above, please feel free to contact [facility] eRadiology at [phone]. [id number]^AGFA_IDC^SI^ACN [facility] HealthcareRadiology Study observation (narrative)[facility] SystemRadiology Study observation (narrative)[facility] HealthcareCT Chest W contrast IVOrdered By: Ccf Provider on 55-20-9591Mddyjvvcp ClinicComprehensive metabolic 2000 panel Ordered By: Judd James on 48-19-8732Yjkilue [Mass/Vol]4.6 g/dL3.9 - 4.9 g/dL [facility] ClinicALP [Catalytic activity/Vol]97 U/L38 - 113 U/LCleveland Clinic ALT [Catalytic activity/Vol]9 U/LLow10 - 54 U/LCleveland ClinicAnion gap [Moles/Vol]7 mmol/LLow8 - 15 mmol/LCleveland ClinicAST [Catalytic activity/Vol] 15 U/L14 - 40 U/LCleveland ClinicBilirubin [Mass/Vol]0.3 mg/dL0.2 - 1.3 mg/dL [facility] SystemCalcium [Mass/Vol]10.0 mg/dL8.5 - 10.2 mg/dLAcmc Healthcare System Chloride [Moles/Vol]110 mmol/LHigh98 - 107 mmol/LCleveland ClinicCO2 [Moles/Vol] 26 mmol/L22 - 30 mmol/LCleveland ClinicCreatinine [Mass/Vol]1.12 mg/dL0.73 - 1.22 mg/dLAcmc Healthcare SystemGFR/1.73 sq M.predicted among non-blacks MDRD (S/P/Bld) [Vol rate/Area]69 mL/min/{1.73_m2}- PINFCpomerene hospitaland ClinicComment on above:Estimated Glomerular Filtration Rate (eGFR) is calculated using the 2020 CKD-EPI creatinine equation. This equation utilizes serum creatinine, sex, and age as parameters. The creatinine assay has traceable calibration to isotope dilution-mass spectrometry. Refer to KDIGO guidelines for clinical inte rpretation. In patients with unstable renal function, e.g. those with acute kidney injury, the eGFRmay not accurately reflect actual GFR.Glucose [Mass/Vol] 109 mg/xRRfwf10 - 99 mg/dLAcmc Healthcare SystemComment on above:The [place] Diabetes Association (ADA) provides guidance for cutoff [...] Standards of Medical Care in Diabetes 2016, [place] Diabetes Association. Diabetes Care. 2016.39(Suppl 1). Interpretation and review of laboratory resultsAbnormalCleveland ClinicPotassium [Moles/Vol]4.1 mmol/L3.7 - 5.1 mmol/LCleveland ClinicProtein [Mass/Vol]8.3 g/dL High6.3 - 8.0 g/dLChardon ClinicSodium [Moles/Vol]143 mmol/L136 - 144 mmol/L [facility] ClinicUrea nitrogen [Mass/Vol]22 mg/dL9 - 24 mg/dLUniversity Hospitals Health SystemCA ECHO DOPPLER COMPLETEon 84-47-0259Uxf[address] [address] Cardiology Report Signed Patient: DOC BURNS MR#: [id number] : 1950 Acct:[id number] Age/Sex: 74 / M ADM Date: 03/22/24 Loc: CARD Attending Dr: JJ AYOUB Ordering Physician: JJ AYOUB Date of Service: 03/22/24 Procedure(s): CA echo doppler complete Accession Number(s): [id number] cc: Shaikh Sae Etienne; JJ AYOUB Patient Name: DOC BURNS MR#: [id number] : 1950 Exam Date: 03/22/2024 Ordering Doctor: DR JJ AYOUB M.D. ECHOCARDIOGRAM REPORT PROCEDURE: CA ECHO [...] Gradient: 3.47 mm[Hg], 3.74 mm[Hg] Right Atrium Righ (more content not included)...TBHRadiology, Radiologist, - 03/22/2024 [place] [address] Cardiology Report Signed Patient: DOC BURNS MR#: [id number] : 1950 Acct:[id number] Age/Sex: 74 / M ADM Date: 03/22/24 Loc: CARD Attending Dr: JJ AYOUB Ordering Physician: JJ AYOUB Date of Service: 03/22/24 Procedure(s): CA echo doppler complete Accession Number(s): [id number] cc: Shaikh Sae Etienne; JJ AYOUB Patient Name: DOC BURNS MR#: [id number] : 1950 Exam Date: 03/22/2024 Ordering Doctor: DR JJ AYOUB M.D. ECHOCARDIOGRAM REPORT PROCEDURE: CA ECHO [...] M.D. Signed By: 03/22/241657 DD/ 56 TD/TT: Commercial Real Estate Appraiser: SHEILA KendallRadiology Study observation (narrative)SHEILA KendallCA ECHO DOPPLER COMPLETEOrdered By: Radiologist Radiology on 81-45-3740S[facility] Work Phone: ct HEAD/BRAIN WOon 71-10-6495[place]nb[place], [place] [address] CT Scan Report Signed Patient: DOC BURNS MR#: [id number] : 1950 Acct:[id number] Age/Sex: 73 / M ADM Date: 02/27/24 Loc: CT Attending Dr: Shaikh Lowell Quevedo Ordering Physician: Shaikh Sae Etienne Date of Service: 02/27/24 Procedure(s): CT head/brain wo con Accession Number(s): [id number] cc: Shaikh Sae Etienne [place] [address] Patient Name: DOC BURNS MRN: [id number] date: 1950 Sex: M Assigned Patient Location: CT Current Patient Location: CT Accession/Order Number: [id number] Exam Date: 02/27/2024 13:06 Report Date: 02/27/2024 [...] Signed By: 02/27/24 1443 DD/ 1440 TD/TT: Commercial Real Estate Appraiser:TBHRadiology, Radiologist, MD - 02/27/2024 [place] [address] CT Scan Report Signed Patient: DOC BURNS MR#: [id number] : 1950 Acct:[id number] Age/Sex: 73 / M ADM Date: 02/27/24 Loc: CT Attending Dr: Shaikh Lowell Quevedo Ordering Physician: Shaikh Sae Etienne Date of Service: 02/27/24 Procedure(s): CT head/brain wo con Accession Number(s): [id number] cc: Shaikh Sae Etienne The [place] [id number] Patient Name: DOC BURNS MRN: [id number] date: 1950 Sex: M Assigned Patient Location: CT Current Patient Location: CT Accession/Order Number: [id number] Exam Date: 02/27/2024 13:06 Report Date: 02/27/2024 [...] Signed By: 02/27/24 1443 DD/ 1440 TD/TT: Commercial Real Estate Appraiser: SHEILA HealthcareRadiology Study observation (narrative)[facility] HealthcareCT HEAD/BRAIN WOOrdered By: Radiologist Radiology on 95-75-9955AZVW Healthcare Work Phone: ct ABD/PEL W IVCONon 02-26-2024* * *Final Report* * * DATE OF EXAM: Feb 23 2024 1:20PM [facility] 0530 - CT ABD/PEL W IVCON / [...] chest CT performed will be reported separately. Clam Bed Worker (topogram) images: No additional findings. IMPRESSION: [...] any questions regarding this interpretation, please call [phone]. If you are unable to reach us at the number above, please feel free to contact [facility] at [phone]. [id number]^AGFA_IDC^SI^WINTERCCFRadiology, RadiologistMD - 02/26/2024 * * *Final Report* * * DATE OF EXAM: Feb 23 2024 1:20PM [facility] 0530 - CT ABD/PEL W IVCON / [...] chest CT performed will be reported separately. Clam Bed Worker (topogram) images: No additional findings. IMPRESSION: [...] any questions regarding this interpretation, please call [phone]. If you are unable to reach us at the number above, please feel free to contact [facility] eRadiology at [phone]. [id number]^AGFA_IDC^SI^ACN NOMS HealthcareCT Abdomen and Pelvis W contrast Beth 94-67-6678YUKYUMDZVN: 1. Nonspecific 2.1 cm hypodensity in the [...] any questions regarding this interpretation, please call [phone]. If you are unable to reach us at the number above, please feel free to contact [facility] at [phone].DIVISION OF RADIOLOGY* * *Final Report* * * DATE OF EXAM: Feb 23 2024 1:20PM [facility] 0530 - CT ABD/PEL W IVCON / [...] chest CT performed will be reported separately. Clam Bed Worker (topogram) images: No additional findings. DIVISION OF RADIOLOGYProvider, [facility] [place] - 02/26/2024 * * *Final Report* * * DATE OF EXAM: Feb 23 2024 1:20PM [facility] 0530 - CT ABD/PEL W IVCON / [...] chest CT performed will be reported separately. Clam Bed Worker (topogram) images: No additional findings. IMPRESSION IMPRESSION: [...] any questions regarding this interpretation, please call [phone]. If you are unable to reach us at the number above, please feel free to contact [facility] eRadiology at [phone]. [facility] Chest W contrast Beth 03-48-8519MMPTVZWKEW: 1. Multiple new nodular opacities measuring up [...] any questions regarding this interpretation, please call [phone]. If you are unable to reach us at the number above, please feel free to contact [facility] at [phone].DIVISION OF RADIOLOGY* * *Final Report* * * DATE OF EXAM: Feb 23 2024 1:20PM [facility] 0539 - CT CHEST W IVCON / [...] CT scan report for the abdomen findings. Clam Bed Worker (topogram) images: No additional findings. DIVISION OF RADIOLOGYProvider, [facility] [place] - 02/26/2024 * * *Final Report* * * DATE OF EXAM: Feb 23 2024 1:20PM [facility] 0539 - CT CHEST W IVCON / [...] CT scan report for the abdomen findings. Clam Bed Worker (topogram) images: No additional findings. IMPRESSION IMPRESSION: [...] any questions regarding this interpretation, please call [phone]. If you are unable to reach us at the number above, please feel free to contact [facility] eRadiology at [phone]. [facility]* * *Final Report* * * DATE OF EXAM: Feb 23 2024 1:20PM [facility] 0539 - CT CHEST W IVCON / [...] CT scan report for the abdomen findings. Clam Bed Worker (topogram) images: No additional findings. IMPRESSION: [...] any questions regarding this interpretation, please call [phone]. If you are unable to reach us at the number above, please feel free to contact [facility] eRadiology at [phone]. [id number]^AGFA_IDC^SI^ACNCCFRadiology, RadiologistMD - 02/26/2024 * * *Final Report* * * DATE OF EXAM: Feb 23 2024 1:20PM [facility] 0539 - CT CHEST W IVCON / [...] CT scan report for the abdomen findings. Clam Bed Worker (topogram) images: No additional findings. IMPRESSION: [...] any questions regarding this interpretation, please call [phone]. If you are unable to reach us at the number above, please feel free to contact [facility] eRadiology at [phone]. [id number]^AGFA_IDC^SI^ACN [facility]OMS HealthcareNo Panel InformationOrdered By: Ccf Provider on 02-26-2024 [facility] Healthcare SystemCB W Auto Differential panel (Bld)on 86-41-5184Dlzcxytad (Bld) [#/Vol]0.10 10*3/uLNINFAcmc Healthcare SystemBasophils/100 WBC (Bld)0.9 %[facility] SystemDifferential cell count method Nom (Bld)AutoCleveland ClinicEosinophils (Bld) [#/Vol]0.43 10*3/uLNINFAcmc Healthcare SystemEosinophils/100 WBC (Bld)4.0 % [facility] SystemErythrocyte distribution width (RBC) [Ratio]13.3 %11.5 - 15.0 % [facility] SystemHematocrit (Bld) [Volume fraction]41.2 %39.0 - 51.0 %[facility] SystemHemoglobin (Bld) [Mass/Vol]13.5 g/dL13.0 - 17.0 g/dLAcmc Healthcare System Immature granulocytes (Bld) [#/Vol]0.06 10*3/uLNIUniversity Hospitals Parma Medical CenterImmature granulocytes/100 WBC (Bld)0.6 %[facility] SystemInterpretation and review of laboratory resultsAbnormalCleveland ClinicLymphocytes (Bld) [#/Vol]2.03 10*3/uL [facility] SystemLymphocytes/100 WBC (Bld)18.9 %[facility]field HospitalH (RBC) [Entitic mass]30.0 pg26.0 - 34.0 pgClevelCass Lake HospitalHC (RBC) [Mass/Vol]32.8 g/dL30.5 - 36.0 g/dLMansfield HospitalV (RBC) [Entitic vol]91.6 fL80.0 - 100.0 fLCleveland Abbott Northwestern HospitalMonocytes (Bld) [#/Vol]1.14 10*3/uLHighNINFAcmc Healthcare System Monocytes/100 WBC (Bld)10.6 %[facility] Healthcare SystemNeutrophils (Bld) [#/Vol]6.99 10*3/[facility] HospitalNeutrophils/100 WBC (Bld)65.0 %[facility] Healthcare SystemNucleated RBC (Bld) [#/Vol]NINFCleveland ClinicNucleated RBC/100 WBC (Bld) [Ratio]0.0 % /100 WBCAcmc Healthcare SystemPlatelet mean volume (Bld) [Entitic vol]9.2 fL9.0 - 12.7 fLCleveland ClinicPlatelets (Bld) [#/Vol]245 10*3/uLAcmc Healthcare SystemRBC (Bld) [#/Vol]4.50 10*6/uL4.20 - 6.00 m/[facility] HospitalWBC (Bld) [#/Vol]10.75 10*3/[facility] HospitalComprehensive metabolic 2000 panelOrdered By: Dolly Muhammad on 59-52-3332Bjvuhjq [Mass/Vol]4.3 g/dL3.9 - 4.9 g/dL [facility] OhioP [Catalytic activity/Vol]110 U/L38 - 113 U/LCleveland [facility] ALT [Catalytic activity/Vol]8 U/LLow10 - 54 U/LCleveland ClinicAnion gap [Moles/Vol]7 mmol/LLow8 - 15 mmol/LCleveland ClinicAST [Catalytic activity/Vol] 11 U/LLow14 - 40 U/LCleveland ClinicBilirubin [Mass/Vol]0.3 mg/dL0.2 - 1.3 mg/dL [facility] SystemCalcium [Mass/Vol]9.7 mg/dL8.5 - 10.2 mg/dLAcmc Healthcare System Chloride [Moles/Vol]107 mmol/L98 - 107 mmol/LCleveland ClinicCO2 [Moles/Vol]27 mmol/L22 - 30 mmol/LCleveland ClinicCreatinine [Mass/Vol]1.22 mg/dL0.73 - 1.22 mg/dLAcmc Healthcare SystemGFR/1.73 sq M.predicted among non-blacks MDRD (S/P/Bld) [Vol rate/Area]63 mL/min/{1.73_m2}- PINFCleveland ClinicComment on above: Estimated Glomerular Filtration Rate (eGFR) is calculated using the 2020 CKD-EPI creatinine equation. This equation utilizes serum creatinine, sex, and age as parameters. The creatinine assay has traceable calibration to isotope dilution- mass spectrometry. Refer to KDIGO guidelines for clinical interpretation. In patients with unstable renal function, e.g. those with acute kidney injury, the eGFRmay not accurately reflect actual GFR.Glucose [Mass/Vol]107 mg/eZQtyw31 - 99 mg/dLAcmc Healthcare SystemCommclaren bay special care hospital on above:The [place] Diabetes Association (ADA) provides guidance for cutoff values for fasting glucose andrandom glucose. The ADA defines fasting as no caloric intake for at least 8 hours. Fasting plasma gl ucose results between 100 to 125 mg/dL indicate [...] Standards of Medical Care in Diabetes 2016, [place] Diabetes Association. Diabetes Care. 2016.39(Suppl 1). Interpretation and review of laboratory resultsAbnormalCleveland ClinicPotassium [Moles/Vol]4.8 mmol/L3.7 - 5.1 mmol/LCleveland ClinicProtein [Mass/Vol]8.1 g/dL High6.3 - 8.0 g/dLChardon ClinicSodium [Moles/Vol]141 mmol/L136 - 144 mmol/L [facility] SystemUrea nitrogen [Mass/Vol]18 mg/dL9 - 24 mg/dLClinton Memorial Hospital ClinicNo Panel Informationon 32-23-6457Jmpwzfnkb Study observation (narrative)[facility] SystemRadiology Study observation (narrative)NOMS HealthcareXR TIBIA FIBULA LT 2Von 85-52-1536N[address] [address] XRay Report Signed Patient: DOC BURNS MR#: [id number] : 1950 Acct:[id number] Age/Sex: 73 / M ADM Date: 01/01/24 Loc: RAD Attending Dr: Shaikh Lowell Quevedo Ordering Physician: Shaikh Sae Etienne Date of Service: 01/01/24 Procedure(s): XR tibia fibula LT 2V Accession Number(s): [id number] cc: Shaikh Sae Etienne The [address] [id number] Patient Name: DOC BURNS MRN: [facility]:[id number] date: 1950 Sex: M Assigned Patient Location: RAD Current Patient Location: RAD Accession/Order Number: [id number] Exam Date: 01/01/2024 17:35 Report Date: 01/01/2024 [...] calcifications are noted. Electronically authenticated by: ESTHELA NAIR Date: 01/01/2024 19:05 Dictated By: Esthela Nair M.D. Signed By: 01/01/241906 DD/ 04 TD/TT: Commercial Real Estate Appraiser:TBHRadiology, Radiologist, MD - 01/01/2024 [place] [address] XRay Report Signed Patient: DOC BURNS MR#: [id number] : 1950 Acct:[id number] Age/Sex: 73 / M ADM Date: 01/01/24 Loc: RAD Attending Dr: Shaikh Lowell Quevedo Ordering Physician: Shaikh Sae Etienne Date of Service: 01/01/24 Procedure(s): XR tibia fibula LT 2V Accession Number(s): [id number] cc: Shaikh Sae Etienne [place] [address] Patient Name: DOC BURNS MRN: [facility]:[id number] date: 1950 Sex: M Assigned Patient Location: RAD Current Patient Location: RAD Accession/Order Number: [id number] Exam Date: 01/01/2024 17:35 Report Date: 01/01/2024 [...] calcifications are noted. Electronically authenticated by: ESTHELA NAIR Date: 01/01/2024 19:05 Dictated By: Esthela Nair M.D. Signed By: 01/01/241906 DD/ 04 TD/TT: Commercial Real Estate Appraiser: SHEILA HealthcareRadiology Study observation (narrative)NOM[facility] HealthcareXR TIBIA FIBULA LT 2VOrdered By: Radiologist Radiology on 27-99-2275CMNK [facility] Work Phone: cbc W Auto Differential panel (Bld)on 11-10-2023 Basophils (Bld) [#/Vol]0.07 10*3/uLNINFAcmc Healthcare SystemBasophils/100 WBC (Bld) 0.8 %[facility] SystemDifferential cell count method Nom (Bld)AutoCleveland ClinicEosinophils (Bld) [#/Vol]0.33 10*3/uLNINFAcmc Healthcare SystemEosinophils/100 WBC (Bld)3.7 %[facility] Healthcare SystemErythrocyte distribution width (RBC) [Ratio]13.2 % 11.5 - 15.0 %[facility] Healthcare SystemHematocrit (Bld) [Volume fraction]41.2 %39.0 - 51.0 %[facility] Healthcare SystemHemoglobin (Bld) [Mass/Vol]13.9 g/dL13.0 - 17.0 g/dLAcmc Healthcare SystemImmature granulocytes (Bld) [#/Vol]0.05 10*3/uLNINFAcmc Healthcare System Immature granulocytes/100 WBC (Bld)0.6 %[facility] SystemInterpretation and review of laboratory resultsAbnormalCleveland ClinicLymphocytes (Bld) [#/Vol] 1.78 10*3/uLAcmc Healthcare SystemLymphocytes/100 WBC (Bld)19.9 %Mansfield HospitalH (RBC) [Entitic mass]30.8 pg26.0 - 34.0 pgClevelCass Lake HospitalHC (RBC) [Mass/Vol] 33.7 g/dL30.5 - 36.0 g/dLMansfield HospitalV (RBC) [Entitic vol]91.2 fL80.0 - 100.0 fLCleveland ClinicMonocytes (Bld) [#/Vol]1.11 10*3/uLHighNINFAcmc Healthcare SystemMonocytes/100 WBC (Bld)12.4 %[facility] Healthcare SystemNeutrophils (Bld) [#/Vol]5.59 10*3/uLAcmc Healthcare SystemNeutrophils/100 WBC (Bld)62.6 %[facility] Healthcare SystemNucleated RBC (Bld) [#/Vol]NINFCleveland ClinicNucleated RBC/100 WBC (Bld) [Ratio]0.0 % /100 WBCAcmc Healthcare SystemPlatelet mean volume (Bld) [Entitic vol]9.1 fL9.0 - 12.7 fLClevelcone health annie penn hospital ClinicPlatelets (Bld) [#/Vol]267 10*3/uLChardon ClinicRBC (Bld) [#/Vol]4.52 10*6/uL4.20 - 6.00 m/uLAcmc Healthcare SystemWBC (Bld) [#/Vol]8.93 10*3/uL [facility] CenterCT Chest W contrast Beth 06-08-3407LPZPNNNFUL: 1. There has been significant improvement in [...] any questions regarding this interpretation, please call [phone]. If you are unable to reach us at the number above, please feel free to contact [facility] eRadiology at [phone].DIVISION OF RADIOLOGY* * *Final Report* * * DATE OF EXAM: Nov 10 2023 12:51PM [facility] 0539 - CT CHEST W IVCON / [...] performed concurrently and will be dictated separately. Clam Bed Worker (topogram) images: No additional findings. DIVISION OF RADIOLOGYProvider, [facility] [place] - 11/10/2023 * * *Final Report* * * DATE OF EXAM: Nov 10 2023 12:51PM [facility] 0539 - CT CHEST W IVCON / [...] performed concurrently and will be dictated separately. Clam Bed Worker (topogram) images: No additional findings. IMPRESSION IMPRESSION: [...] any questions regarding this interpretation, please call [phone]. If you are unable to reach us at the number above, please feel free to contact [facility] eRadiology at [phone]. [facility]* * *Final Report* * * DATE OF EXAM: Nov 10 2023 12:51PM [facility] [place] 0539 - CT CHEST W IVCON / [...] performed concurrently and will be dictated separately. Clam Bed Worker (topogram) images: No additional findings. IMPRESSION: [...] any questions regarding this interpretation, please call [phone]. If you are unable to reach us at the number above, please feel free to contact [facility] at [phone]. [id number]^[email or web address]^SI^ACNCCFRadiology, Radiologist, - 11/10/2023 * * *Final Report* * * DATE OF EXAM: Nov 10 2023 12:51PM [facility] [place] 0539 - CT CHEST W IVCON / [...] performed concurrently and will be dictated separately. Clam Bed Worker (topogram) images: No additional findings. IMPRESSION: [...] any questions regarding this interpretation, please call [phone]. If you are unable to reach us at the number above, please feel free to contact [facility] at [phone]. [id number]^AGFA_IDC^SI^ACN [facility] HealthcareRadiology Study observation (narrative)[facility] SystemRad[facility] Study observation (narrative)[facility] HealthcareCT Chest W contrast IVOrdered By: Ccf Provider on [id number] ClinicComprehensive metabolic 2000 panel Ordered By: Judd James on 62-79-6958Muozslh [Mass/Vol]4.4 g/dL3.9 - 4.9 g/dL [facility] ClinicALP [Catalytic activity/Vol]116 U/LHigh38 - 113 U/LCleveland ClinicALT [Catalytic activity/Vol]7 U/LLow10 - 54 U/LCleveland ClinicAnion gap [Moles/Vol]11 mmol/L9 - 18 mmol/LCleveland ClinicAST [Catalytic activity/Vol]16 U/L14 - 40 U/LCleveland ClinicBilirubin [Mass/Vol]0.4 mg/dL0.2 - 1.3 mg/dL [facility] ClinicCalcium [Mass/Vol]9.8 mg/dL8.5 - 10.2 mg/dLAcmc Healthcare System Chloride [Moles/Vol]103 mmol/L97 - 105 mmol/LCleveland ClinicCO2 [Moles/Vol]24 mmol/L22 - 30 mmol/LCleveland ClinicCreatinine [Mass/Vol]0.99 mg/dL0.73 - 1.22 mg/dLAcmc Healthcare SystemGFR/1.73 sq M.predicted among non-blacks MDRD (S/P/Bld) [Vol rate/Area]81 mL/min/{1.73_m2}- PINFCleveland ClinicComment on above: Estimated Glomerular Filtration Rate (eGFR) is calculated using the 2020 CKD-EPI creatinine equation. This equation utilizes serum creatinine, sex, and age as parameters. The creatinine assay has traceable calibration to isotope dilution- mass spectrometry. Refer to KDIGO guidelines for clinical interpretation. In patients with unstable renal function, e.g. those with acute kidney injury, the eGFRmay not accurately reflect actual GFR.Glucose [Mass/Vol]96 mg/dL74 - 99 mg/dLAcmc Healthcare SystemComment on above:The [place] Diabetes Association (ADA) provides guidance for cutoff values for fasting glucose andrandom glucose. The ADA defines fasting as no caloric intake for at least 8 hours. Fasting plasma gl ucose results between 100 to 125 mg/dL indicate [...] Standards of Medical Care in Diabetes 2016, [place] Diabetes Association. Diabetes Care. 2016.39(Suppl 1). Interpretation and review of laboratory resultsAbnormalCleveland ClinicPotassium [Moles/Vol]3.8 mmol/L3.7 - 5.1 mmol/LCleveland ClinicProtein [Mass/Vol]8.2 g/dL High6.3 - 8.0 g/dLChardon ClinicSodium [Moles/Vol]138 mmol/L136 - 144 mmol/L [facility] SystemUrea nitrogen [Mass/Vol]10 mg/dL9 - 24 mg/dLUniversity Hospitals Health SystemPET+CT Guidance for localization of tumor of Skull base to mid-thigh-- W 18F-FDG Beth [id number]: 1. HEAD and NECK: No evidence of [...] any questions regarding this interpretation, please call [phone]. If you are unable to reach us at the number above, please feel free to contact [facility] at [phone].DIVISION OF RADIOLOGY* * *Final Report* * * DATE OF [...] low dose noncontrast CT scan. DIVISION OF RADIOLOGYProvider, [facility] [place] - 08/07/2023 * * *Final Report* * [...] any questions regarding this interpretation, please call [phone]. If you are unable to reach us at the number above, please feel free to contact [facility] eRadiology at [phone]. [facility] SystemPET+CT Guidance for localization of tumor of Skull base to mid-thigh-- W 18F-FDG IVOrdered By: Ccf Provider on 63-04-7116Wybjugywp Clinic CBC W Auto Differential panel (Bld)on 89-76-5697Hzygebkbj (Bld) [#/Vol]0.07 10*3/uLNINFAcmc Healthcare SystemBasophils/100 WBC (Bld)0.7 %[facility] Differential cell count method Nom (Bld)AutoCleveland ClinicEosinophils (Bld) [#/Vol]0.56 10*3/uLHighNINFAcmc Healthcare SystemEosinophils/100 WBC (Bld)6.0 % [facility] SystemErythrocyte distribution width (RBC) [Ratio]13.2 %11.5 - 15.0 % [facility] SystemHematocrit (Bld) [Volume fraction]42.9 %39.0 - 51.0 %[facility] SystemHemoglobin (Bld) [Mass/Vol]13.9 g/dL13.0 - 17.0 g/dLAcmc Healthcare System Immature granulocytes (Bld) [#/Vol]0.09 10*3/uLNINFAcmc Healthcare SystemImmature granulocytes/100 WBC (Bld)1.0 %[facility] SystemInterpretation and review of laboratory resultsAbnormalCleveland ClinicLymphocytes (Bld) [#/Vol]2.14 10*3/uL [facility] SystemLymphocytes/100 WBC (Bld)22.8 %[facility]field HospitalH (RBC) [Entitic mass]30.0 pg26.0 - 34.0 pgCParkview HealthHC (RBC) [Mass/Vol]32.4 g/dL30.5 - 36.0 g/dLMansfield HospitalV (RBC) [Entitic vol]92.7 fL80.0 - 100.0 fLClevelcone health annie penn hospital ClinicMonocytes (Bld) [#/Vol]1.14 10*3/uLHighNIUniversity Hospitals Parma Medical Center Monocytes/100 WBC (Bld)12.2 %[facility] SystemNeutrophils (Bld) [#/Vol]5.37 10*3/uLAcmc Healthcare SystemNeutrophils/100 WBC (Bld)57.3 %[facility] SystemNucleated RBC (Bld) [#/Vol]NINFCleveland Abbott Northwestern HospitalNucleated RBC/100 WBC (Bld) [Ratio]0.0 % /100 WBCAcmc Healthcare SystemPlatelet mean volume (Bld) [Entitic vol]8.8 fLLow9.0 - 12.7 fLClevelcone health annie penn hospital ClinicPlatelets (Bld) [#/Vol]282 10*3/uLAcmc Healthcare SystemRBC (Bld) [#/Vol]4.63 10*6/uL4.20 - 6.00 m/uLAcmc Healthcare SystemWBC (Bld) [#/Vol]9.37 10*3/uLUniversity Hospitals Lake West Medical CenterComprehensive metabolic 2000 panelOrdered By: Oanh Cb on 02-97-7114Xcccxdm [Mass/Vol]4.7 g/dL3.9 - 4.9 g/dLChardon ClinicALP [Catalytic activity/Vol]93 U/L38 - 113 U/LCleveland ClinicALT [Catalytic activity/Vol]14 U/L10 - 54 U/LCleveland ClinicAnion gap [Moles/Vol]9 mmol/L9 - 18 mmol/LCleveland ClinicAST [Catalytic activity/Vol]18 U/L14 - 40 U/L [facility] SystemBilirubin [Mass/Vol]0.3 mg/dL0.2 - 1.3 mg/dLAcmc Healthcare System Calcium [Mass/Vol]9.3 mg/dL8.5 - 10.2 mg/dLCh[facility] ClinicChloride [Moles/Vol] 103 mmol/L97 - 105 mmol/LCleveland ClinicCO2 [Moles/Vol]26 mmol/L22 - 30 mmol/L [facility] SystemCreatinine [Mass/Vol]1.06 mg/dL0.73 - 1.22 mg/dLAcmc Healthcare System GFR/1.73 sq M.predicted among non-blacks MDRD (S/P/Bld) [Vol rate/Area]75 mL/min/{1.73_m2}- PINFCUpper Valley Medical CenterComment on above:Estimated Glomerular Filtration Rate (eGFR) is calculated using the 2020 CKD-EPI creatinine equation. This equation utilizes serum creatinine, sex, and age as parameters. The creatinine assay has traceable calibration to isotope dilution-mass spectrometry. Refer to KDIGO guidelines for clinical interpretation. In patients with unstable renal function, e.g. those with acute kidney injury, the eGFRmay not accurately reflect actual GFR.Glucose [Mass/Vol]97 mg/dL74 - 99 mg/dL [facility] on above:The [place] Diabetes Association (ADA) provides guidance for cutoff values for fasting glucose andrandom glucose. The ADA defines fasting as no caloric intake for at least 8 hours. Fasting plasma gl ucose results between 100 to 125 mg/dL indicate [...] Standards of Medical Care in Diabetes 2016, [place] Diabetes Association. Diabetes Care. 2016.39(Suppl 1). Interpretation and review of laboratory resultsNormalCleveland ClinicPotassium [Moles/Vol]3.9 mmol/L3.7 - 5.1 mmol/LCleveland ClinicProtein [Mass/Vol]7.8 g/dL 6.3 - 8.0 g/dLCleveland ClinicSodium [Moles/Vol]138 mmol/L136 - 144 mmol/L [facility] SystemUrea nitrogen [Mass/Vol]18 mg/dL9 - 24 mg/dLClinton Memorial Hospital ClinicGLUCOSE, BLOOD (POC)on 22-12-5937Wskeytk [Mass/Vol]95 mg/dL74 - 99 mg/dLAcmc Healthcare SystemComment on above:Location:[facility], [address] [place] [address] , [place], [place], [facility] The Accu-Chek Inform II glucose meter [...] blood gas instrument) in the above situations. [facility] SystemPET+CT Guidance for localization of tumor of Skull base to mid-thigh-- W 18F-FDG Beth [id number] Study observation (narrative) [facility] SystemPET+CT Guidance for localization of tumor of Skull base to mid-thigh-- W 18F-FDG Beth [id number]: Head and Neck: * No evidence of FDG avid neoplastic process Chest: * Improvement of the bilateral pulmonary nodules, as described. Findings may be secondary to improving inflammatory/infectious process versus therapy response. Recommend correlation with [...] any questions regarding this interpretation, please call [phone]. If you are unable to reach us at the number above, please feel free to contact [facility] at [phone].DIVISION OF RADIOLOGY* * *Final Report* * * DATE OF [...] attenuation correction and anatomic localization purposes, and acute/emergent/actionable findings are described. [CSS] CT Dose-Length Product [...] MUSCULOSKELETAL: There are no hypermetabolic osseous lesions. Clam Bed Worker (topogram) images: No additional findings. DIVISION OF RADIOLOGYProvider, [facility] [place] - 04/30/2023 * * *Final Report* * [...] attenuation correction and anatomic localization purposes, and acute/emergent/actionable findings are described. [CSS] CT Dose-Length Product [...] MUSCULOSKELETAL: There are no hypermetabolic osseous lesions. Clam Bed Worker (topogram) images: No additional findings. IMPRESSION IMPRESSION: Head and Neck: * No evidence of FDG avid neoplastic process Chest: * Improvement of the bilateral pulmonary nodules, as described. Findings may be secondary to improving inflammatory/infectious process versus therapy response. Recommend correlation with [...] signed by: LORRIE ARCE, (more content not included)...[facility] SystemPET+CT Guidance for localization of tumor of Skull base to mid-thigh-- W 18F-FDG IVOrdered By: Ccf Provider on 34-65-0742Edhjxzcnc [facility] W Auto Differential panel (Bld)on 29-12-1154Xrmsyyrvd (Bld) [#/Vol]0.06 10*3/uLNINFAcmc Healthcare SystemBasophils/100 WBC (Bld)0.7 %[facility] SystemDifferential cell count method Nom (Bld)Auto [facility] SystemEosinophils (Bld) [#/Vol]0.32 10*3/uLNIUniversity Hospitals Parma Medical Center Eosinophils/100 WBC (Bld)3.5 %[facility] SystemErythrocyte distribution width (RBC) [Ratio]13.8 %11.5 - 15.0 %[facility] SystemHematocrit (Bld) [Volume fraction]42.2 %39.0 - 51.0 %[facility] SystemHemoglobin (Bld) [Mass/Vol]13.8 g/dL 13.0 - 17.0 g/dLAcmc Healthcare SystemImmature granulocytes (Bld) [#/Vol]0.06 10*3/uL NINFCUpper Valley Medical CenterImmature granulocytes/100 WBC (Bld)0.7 %[facility] Interpretation and review of laboratory resultsAbnormalCUpper Valley Medical Center Lymphocytes (Bld) [#/Vol]1.74 10*3/uLAcmc Healthcare SystemLymphocytes/100 WBC (Bld) 19.0 %[facility]field HospitalH (RBC) [Entitic mass]29.7 pg26.0 - 34.0 pgCParkview HealthHC (RBC) [Mass/Vol]32.7 g/dL30.5 - 36.0 g/dLMansfield HospitalV (RBC) [Entitic vol]90.9 fL80.0 - 100.0 fLClevelMercy Health Perrysburg HospitalMonocytes (Bld) [#/Vol]1.18 10*3/uLHighNINFAcmc Healthcare SystemMonocytes/100 WBC (Bld)12.9 %[facility] Neutrophils (Bld) [#/Vol]5.78 10*3/[facility] HospitalNeutrophils/100 WBC (Bld) 63.2 %[facility] SystemNucleated RBC (Bld) [#/Vol]NINFCleveland ClinicNucleated RBC/100 WBC (Bld) [Ratio]0.0 %/100 WBCAcmc Healthcare SystemPlatelet mean volume (Bld) [Entitic vol]9.3 fL9.0 - 12.7 fLCleveland ClinicPlatelets (Bld) [#/Vol]226 10*3/uLAcmc Healthcare SystemRBC (Bld) [#/Vol]4.64 10*6/uL4.20 - 6.00 m/[facility] HospitalWBC (Bld) [#/Vol]9.14 10*3/[facility] HospitalComprehensive metabolic 2000 panelOrdered By: Judd James on 55-96-9294Ofnjuuz [Mass/Vol]4.4 g/dL3.9 - 4.9 g/dLChardon ClinicALP [Catalytic activity/Vol]89 U/L38 - 113 U/L [facility] ClinicALT [Catalytic activity/Vol]8 U/LLow10 - 54 U/LClevelMercy Health Perrysburg Hospital Anion gap [Moles/Vol]10 mmol/L9 - 18 mmol/LCleveland ClinicAST [Catalytic activity/Vol]15 U/L14 - 40 U/LCleveland ClinicBilirubin [Mass/Vol]0.4 mg/dL0.2 - 1.3 mg/dLCh[facility] ClinicCalcium [Mass/Vol]9.4 mg/dL8.5 - 10.2 mg/dLAcmc Healthcare SystemChloride [Moles/Vol]103 mmol/L97 - 105 mmol/LCleveland ClinicCO2 [Moles/Vol]24 mmol/L22 - 30 mmol/LCleveland ClinicCreatinine [Mass/Vol]1.20 mg/dL0.73 - 1.22 mg/dLAcmc Healthcare SystemGFR/1.73 sq M.predicted among non-blacks MDRD (S/P/Bld) [Vol rate/Area]64 mL/min/{1.73_m2}- PINFCleveland ClinicComment on above:Estimated Glomerular Filtration Rate (eGFR) is calculated using the 2020 CKD-EPI creatinine equation. This equation utilizes serum creatinine, sex, and age as parameters. The creatinine assay has traceable calibration to isotope dilution-mass spectrometry. Refer to KDIGO guidelines for clinical inte rpretation. In patients with unstable renal function, e.g. those with acute kidney injury, the eGFRmay not accurately reflect actual GFR.Glucose [Mass/Vol] 100 mg/xQFmpl79 - 99 mg/dLAcmc Healthcare SystemComment on above:The [place] Diabetes Association (ADA) provides guidance for cutoff [...] Standards of Medical Care in Diabetes 2016, [place] Diabetes Association. Diabetes Care. 2016.39(Suppl 1). Interpretation and review of laboratory resultsAbnormalCleveland ClinicPotassium [Moles/Vol]4.2 mmol/L3.7 - 5.1 mmol/LCleveland ClinicProtein [Mass/Vol]7.3 g/dL 6.3 - 8.0 g/dLChardon ClinicSodium [Moles/Vol]137 mmol/L136 - 144 mmol/L [facility] ClinicUrea nitrogen [Mass/Vol]19 mg/dL9 - 24 mg/dLClinton Memorial Hospital ClinicGLUCOSE, BLOOD (POC)on 57-99-5343Aykdsco [Mass/Vol]103 mg/dL Scirdhdk16 - 99 mg/dLAcmc Healthcare SystemComment on above:Location:[facility], [address] [place] [address] , [place], [place], [address] The Accu-Chek Inform II glucose meter has [...] above situations. Interpretation and review of laboratory resultsAbnormalCWood County HospitalPET+CT Guidance for localization of tumor of Skull base to mid-thigh-- W 18F-FDG Beth 45-71-1597Ehtkocuiz Study observation (narrative)[facility] PET+CT Guidance for localization of tumor of Skull base to mid-thigh-- W 18F-FDG Beth [id number]: HEAD/NECK: * No FDG avid neoplastic process. [...] any questions regarding this interpretation, please call [phone]. If you are unable to reach us at the number above, please feel free to contact [facility] eRadiology at [phone].DIVISION OF RADIOLOGY* * *Final Report* * * DATE OF [...] - Background liver activity (max SUV): 3.6 Clam Bed Worker (topogram) images: Unremarkable. HEAD AND NECK: Physiologic [...] lesion. Multifocal degenerative osseous changes. DIVISION OF RADIOLOGYProvider, [facility] [place] - 02/22/2023 * * *Final Report* * [...] - Background liver activity (max SUV): 3.6 Clam Bed Worker (topogram) images: Unremarkable. HEAD AND NECK: Physiologic [...] any questions regarding this interpretation, please call [phone]. If you are unable to reach us at the number above, please feel free to contact [facility] eRadiology at [phone]. [facility] SystemPET+CT Guidance for localization of tumor of Skull base to mid-thigh-- W 18F-FDG IVOrdered By: Ccf Provider on 50-83-6755Xtpdhljzn Clinic GLUCOSE, BLOOD (POC)on 93-26-6945Xnkfahj [Mass/Vol]105 mg/zVUwkgqbdp22 - 99 mg/dLAcmc Healthcare SystemComment on above:Location:[facility], [address] [place] [address] , [place], [place], [address] The Accu-Chek Inform II glucose meter has [...] above situations. 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 Order #: [id number] CLICK HERE TO VIEW EXAM ECHOCARDIOGRAM REPORT [...] by: Pool Canales M.D. on 01/06/2023 at 16:36[facility] HospitalCT Abdomen and Pelvis W contrast Beth 04-94-3825FFCVGCGHBB: 1. Interval increase in size of hypodensity [...] any questions regarding this interpretation, please call [phone]. If you are unable to reach us at the number above, please feel free to contact [facility] at [phone].DIVISION OF RADIOLOGY* * *Final Report* * * DATE OF EXAM: Jan 04 2023 1:47PM [facility] [place] 0530 - CT ABD/PEL W IVCON / [...] urinary bladder, possibly due to bladder outlet obstruction/prostatomegaly. No pelvic mass or fluid collection is seen. Bones/Soft Tissues: Multilevel degenerative changes noted in the lumbar spine. No destructive osseous lesions are seen. Superficial soft tissues are unremarkable. Lower thorax: A chest CT performed will be reported separately. Clam Bed Worker (topogram) images: No additional findings. DIVISION OF RADIOLOGYProvider, [facility] [place] - 01/05/2023 * * *Final Report* * * DATE OF EXAM: Jan 04 2023 1:47PM [facility] [place] 0530 - CT ABD/PEL W IVCON / [...] urinary bladder, possibly due to bladder outlet obstruction/prostatomegaly. No pelvic mass or fluid collection is seen. Bones/Soft Tissues: Multilevel degenerative changes noted in the lumbar spine. No destructive osseous lesions are seen. Superficial soft tissues are unremarkable. Lower thorax: A chest CT performed will be reported separately. Clam Bed Worker (topogram) images: No additional findings. IMPRESSION IMPRESSION: [...] any questions regarding this interpretation, please call [phone]. If you are unable to reach us at the number above, please feel free to contact [facility] at [phone]. [facility] Abdomen and Pelvis W contrast IVOrdered By: Ccf Provider on 06-21-8921Bxklgwpga ClinicCT Chest W contrast Beth 88-15-2962XZKVBNKEXY: 1. Multiple bilateral pulmonary nodules. Some of [...] any questions regarding this interpretation, please call [phone]. If you are unable to reach us at the number above, please feel free to contact [facility] at [phone].DIVISION OF RADIOLOGY* * *Final Report* * * DATE OF EXAM: Jan 04 2023 1:47PM [facility] [place] 0539 - CT CHEST W IVCON / [...] was performed concurrently and is reported separately. Clam Bed Worker (topogram) images: No additional findings. DIVISION OF RADIOLOGYProvider, [facility] [place] - 01/05/2023 * * *Final Report* * * DATE OF EXAM: Jan 04 2023 1:47PM [facility] 0539 - CT CHEST W IVCON / [...] was performed concurrently and is reported separately. Clam Bed Worker (topogram) images: No additional findings. IMPRESSION IMPRESSION: [...] any questions regarding this interpretation, please call [phone]. If you are unable to reach us at the number above, please feel free to contact [facility] eRadiology at [phone]. [facility] W Auto Differential panel (Bld)on 01-04-2023 Basophils (Bld) [#/Vol]0.08 10*3/uLNIUniversity Hospitals Parma Medical CenterBasophils/100 WBC (Bld) 0.8 %[facility] SystemDifferential cell count method Nom (Bld)AutoCleveland ClinicEosinophils (Bld) [#/Vol]0.34 10*3/uLNINFAcmc Healthcare SystemEosinophils/100 WBC (Bld)3.4 %[facility] SystemErythrocyte distribution width (RBC) [Ratio]13.2 % 11.5 - 15.0 %[facility] SystemHematocrit (Bld) [Volume fraction]40.6 %39.0 - 51.0 %[facility] SystemHemoglobin (Bld) [Mass/Vol]13.4 g/dL13.0 - 17.0 g/dLAcmc Healthcare SystemImmature granulocytes (Bld) [#/Vol]0.06 10*3/uLNINFAcmc Healthcare System Immature granulocytes/100 WBC (Bld)0.6 %[facility] SystemInterpretation and review of laboratory resultsAbnormalCleveland ClinicLymphocytes (Bld) [#/Vol] 1.72 10*3/uLAcmc Healthcare SystemLymphocytes/100 WBC (Bld)17.1 %[facility]field HospitalH (RBC) [Entitic mass]30.0 pg26.0 - 34.0 pgClevelCass Lake HospitalHC (RBC) [Mass/Vol] 33.0 g/dL30.5 - 36.0 g/dLMansfield HospitalV (RBC) [Entitic vol]91.0 fL80.0 - 100.0 fLCtrumbull regional medical center ClinicMonocytes (Bld) [#/Vol]1.14 10*3/uLHighNINFAcmc Healthcare SystemMonocytes/100 WBC (Bld)11.3 %[facility] SystemNeutrophils (Bld) [#/Vol]6.74 10*3/uLAcmc Healthcare SystemNeutrophils/100 WBC (Bld)66.8 %[facility] SystemNucleated RBC (Bld) [#/Vol]NINFClevelMercy Health Perrysburg HospitalNucleated RBC/100 WBC (Bld) [Ratio]0.0 % /100 WBCAcmc Healthcare SystemPlatelet mean volume (Bld) [Entitic vol]8.9 fLLow9.0 - 12.7 fLCtrumbull regional medical center ClinicPlatelets (Bld) [#/Vol]261 10*3/uLAcmc Healthcare SystemRBC (Bld) [#/Vol]4.46 10*6/uL4.20 - 6.00 m/[facility] HospitalWBC (Bld) [#/Vol]10.08 10*3/[facility] HospitalComprehensive metabolic 2000 panelOrdered By: Dolly Muhammad on 35-97-9136Athlwbd [Mass/Vol]4.1 g/dL3.9 - 4.9 g/dL [facility] ClinicALP [Catalytic activity/Vol]100 U/L38 - 113 U/LCleveland [facility] ALT [Catalytic activity/Vol]8 U/LLow10 - 54 U/LCleveland ClinicAnion gap [Moles/Vol]7 mmol/LLow9 - 18 mmol/LCleveland ClinicAST [Catalytic activity/Vol] 16 U/L14 - 40 U/LCleveland ClinicBilirubin [Mass/Vol]0.4 mg/dL0.2 - 1.3 mg/dL [facility] ClinicCalcium [Mass/Vol]9.2 mg/dL8.5 - 10.2 mg/dLAcmc Healthcare System Chloride [Moles/Vol]104 mmol/L97 - 105 mmol/LCleveland ClinicCO2 [Moles/Vol]25 mmol/L22 - 30 mmol/LCleveland ClinicCreatinine [Mass/Vol]1.01 mg/dL0.73 - 1.22 mg/dLAcmc Healthcare SystemGFR/1.73 sq M.predicted among non-blacks MDRD (S/P/Bld) [Vol rate/Area]80 mL/min/{1.73_m2}- PINFCleveland ClinicComment on above: Estimated Glomerular Filtration Rate (eGFR) is calculated using the 2020 CKD-EPI creatinine equation. This equation utilizes serum creatinine, sex, and age as parameters. The creatinine assay has traceable calibration to isotope dilution- mass spectrometry. Refer to KDIGO guidelines for clinical interpretation. In patients with unstable renal function, e.g. those with acute kidney injury, the eGFRmay not accurately reflect actual GFR.Glucose [Mass/Vol]105 mg/lWEpgq66 - 99 mg/dLAcmc Healthcare SystemComment on above:The [place] Diabetes Association (ADA) provides guidance for cutoff values for fasting glucose andrandom glucose. The ADA defines fasting as no caloric intake for at least 8 hours. Fasting plasma gl ucose results between 100 to 125 mg/dL indicate [...] Standards of Medical Care in Diabetes 2016, [place] Diabetes Association. Diabetes Care. 2016.39(Suppl 1). Interpretation and review of laboratory resultsAbnormalCleveland ClinicPotassium [Moles/Vol]4.0 mmol/L3.7 - 5.1 mmol/LCleveland ClinicProtein [Mass/Vol]7.6 g/dL 6.3 - 8.0 g/dLMorrow County Hospitalodium [Moles/Vol]136 mmol/L136 - 144 mmol/L [facility] SystemUrea nitrogen [Mass/Vol]12 mg/dL9 - 24 mg/dLUniversity Hospitals Health SystemNo Panel Informationon [id number] Study observation (narrative)[facility] SystemComprehensive metabolic 2000 panelon 10-08-2022 Albumin [Mass/Vol]4.1 g/dL3.9 - 4.9 g/dLChardon ClinicALP [Catalytic activity/Vol]87 U/L38 - 113 U/LCleveland ClinicALT [Catalytic activity/Vol]11 U/L10 - 54 U/LCleveland ClinicAnion gap [Moles/Vol]12 mmol/L9 - 18 mmol/L [facility] SystemAST [Catalytic activity/Vol]18 U/L14 - 40 U/LCleveland [facility] Bilirubin [Mass/Vol]0.3 mg/dL0.2 - 1.3 mg/dLAcmc Healthcare SystemCalcium [Mass/Vol] 9.6 mg/dL8.5 - 10.2 mg/dLAcmc Healthcare SystemChloride [Moles/Vol]102 mmol/L97 - 105 mmol/LCleveland ClinicCO2 [Moles/Vol]24 mmol/L22 - 30 mmol/LCleveland [facility] Creatinine [Mass/Vol]1.12 mg/dL0.73 - 1.22 mg/dLAcmc Healthcare SystemEstimated Glomerular Filtration Rate70 mL/min/1.73m>=60 mL/min/1.73mCleveland [facility] Glucose [Mass/Vol]85 mg/dL74 - 99 mg/dLAcmc Healthcare SystemPotassium [Moles/Vol]4.4 mmol/L3.7 - 5.1 mmol/LCleveland ClinicProtein [Mass/Vol]7.5 g/dL6.3 - 8.0 g/dL Ch[facility] ClinicSodium [Moles/Vol]138 mmol/L136 - 144 mmol/LCleveland [facility] HospitalUrea nitrogen [Mass/Vol]16 mg/dL9 - 24 mg/dLAcmc Healthcare SystemCB W Auto Differential panel (Bld)on 30-61-3044Xhfhakssq (Bld) [#/Vol]0.06 10*3/uL<0.11 k/uLAcmc Healthcare SystemBasophils/100 WBC (Bld)0.6 %[facility] SystemDifferential cell count method Nom (Bld)AutoCleveland ClinicEosinophils (Bld) [#/Vol]0.48 10*3/uLHigh<0.46 k/uLAcmc Healthcare SystemEosinophils/100 WBC (Bld)4.8 %[facility] Healthcare SystemErythrocyte distribution width (RBC) [Ratio]13.0 %11.5 - 15.0 %[facility] SystemHematocrit (Bld) [Volume fraction]37.6 %Low39.0 - 51.0 %[facility] SystemHemoglobin (Bld) [Mass/Vol]12.4 g/dLLow13.0 - 17.0 g/dLAcmc Healthcare SystemImmature granulocytes (Bld) [#/Vol]0.05 10*3/uL<0.10 k/uLAcmc Healthcare SystemImmature granulocytes/100 WBC (Bld)0.5 %[facility] Healthcare SystemLymphocytes (Bld) [#/Vol]1.94 10*3/uL1.00 - 4.00 k/uL [facility] SystemLymphocytes/100 WBC (Bld)19.4 %[facility] HospitalH (RBC) [Entitic mass]30.3 pg26.0 - 34.0 pgClevelCass Lake HospitalHC (RBC) [Mass/Vol]33.0 g/dL30.5 - 36.0 g/dLMansfield HospitalV (RBC) [Entitic vol]91.9 fL80.0 - 100.0 fLCleveland ClinicMonocytes (Bld) [#/Vol]1.24 10*3/uLHigh<0.87 k/uLChardon ClinicMonocytes/100 WBC (Bld)12.4 %[facility] Healthcare SystemNeutrophils (Bld) [#/Vol]6.22 10*3/uL1.45 - 7.50 k/uLChardon ClinicNeutrophils/100 WBC (Bld)62.3 %[facility] Healthcare SystemNucleated RBC (Bld) [#/Vol]<0.01 k/uLAcmc Healthcare SystemNucleated RBC/100 WBC (Bld) [Ratio]0.0 /100 WBCAcmc Healthcare SystemPlatelet mean volume (Bld) [Entitic vol]8.9 fLLow9.0 - 12.7 fLCleveland ClinicPlatelets (Bld) [#/Vol]230 10*3/uL150 - 400 k/uLChardon ClinicRBC (Bld) [#/Vol]4.09 10*6/uLLow4.20 - 6.00 m/uL [facility] SystemWBC (Bld) [#/Vol]9.99 10*3/uL3.70 - 11.00 k/uLAcmc Healthcare System PET+CT Guidance for localization of tumor of Skull base to mid-thigh-- W 18F-FDG Beth [id number]: 1. Neck: No suspicious hypermetabolic foci 2. [...] any questions regarding this interpretation, please call [phone]. If you are unable to reach us at the number above, please feel free to contact [facility] eRadiology at [phone].DIVISION OF RADIOLOGY* * *Final Report* * * DATE OF [...] SKELETON: There are no hypermetabolic osseous lesions. Clam Bed Worker (topogram) images:No additional findings. DIVISION OF RADIOLOGYProvider, [facility] [place] - 10/02/2022 * * *Final Report* * [...] SKELETON: There are no hypermetabolic osseous lesions. Clam Bed Worker (topogram) images:No additional findings. IMPRESSION IMPRESSION: 1. Neck: No suspicious hypermetabolic [...] any questions regarding this interpretation, please call [phone]. If you are unable to reach us at the number above, please feel free to contact [facility] eRadiology at [phone]. [facility] Healthcare SystemPET+CT Guidance for localization of tumor of Skull base to mid-thigh-- W 18F-FDG IVOrdered By: Ccf Provider on 07-85-1579[facility] GLUCOSE, BLOOD (POC)on 94-09-2111Gtzaexr [Mass/Vol]97 mg/dL74 - 99 mg/dL [facility] SystemComment on above:Location:[facility], [address] [place] [address] , [place], [place], [address] The Accu-Chek Inform II glucose meter has [...] blood gas instrument) in the above situations. [facility] Healthcare SystemPET+CT Guidance for localization of tumor of Skull base to mid-thigh-- W 18F-FDG Beth 89-02-4111Hnexysarg Study observation (narrative) [facility] W Auto Differential panel (Bld)on [id number] (Bld) [#/Vol]0.06 10*3/uLNINFAcmc Healthcare SystemBasophils/100 WBC (Bld)0.6 %[facility] SystemDifferential cell count method Nom (Bld)AutoCleveland ClinicEosinophils (Bld) [#/Vol]0.35 10*3/uLNINFAcmc Healthcare SystemEosinophils/100 WBC (Bld)3.8 % [facility] SystemErythrocyte distribution width (RBC) [Ratio]12.8 %11.5 - 15.0 % [facility] SystemHematocrit (Bld) [Volume fraction]39.1 %39.0 - 51.0 %[facility] SystemHemoglobin (Bld) [Mass/Vol]13.0 g/dL13.0 - 17.0 g/dLAcmc Healthcare System Immature granulocytes (Bld) [#/Vol]0.07 10*3/uLNINFAcmc Healthcare SystemImmature granulocytes/100 WBC (Bld)0.8 %[facility] SystemInterpretation and review of laboratory resultsAbnormalCleveland ClinicLymphocytes (Bld) [#/Vol]1.83 10*3/uL [facility] SystemLymphocytes/100 WBC (Bld)19.7 %[facility] Healthcare SystemMCH (RBC) [Entitic mass]30.6 pg26.0 - 34.0 pgCleveland Abbott Northwestern HospitalMCHC (RBC) [Mass/Vol]33.2 g/dL30.5 - 36.0 g/dLMansfield HospitalV (RBC) [Entitic vol]92.0 fL80.0 - 100.0 fLCleveland Abbott Northwestern HospitalMonocytes (Bld) [#/Vol]1.13 10*3/uLHighNINFAcmc Healthcare System Monocytes/100 WBC (Bld)12.1 %[facility] Healthcare SystemNeutrophils (Bld) [#/Vol]5.87 10*3/[facility] HospitalNeutrophils/100 WBC (Bld)63.0 %[facility] Healthcare SystemNucleated RBC (Bld) [#/Vol]NINFClevelMercy Health Perrysburg HospitalNucleated RBC/100 WBC (Bld) [Ratio]0.0 % /100 WBCAcmc Healthcare SystemPlatelet mean volume (Bld) [Entitic vol]8.6 fLLow9.0 - 12.7 fLClevelcone health annie penn hospital ClinicPlatelets (Bld) [#/Vol]337 10*3/[facility] ClinicRBC (Bld) [#/Vol]4.25 10*6/uL4.20 - 6.00 m/[facility] HospitalWBC (Bld) [#/Vol]9.31 10*3/[facility] HospitalThis is an appended report. These results have been appended to a previously verified report.[facility] CenterCT Chest W contrast Beth 23-00-2570WGQXIURSOG: 1. Multiple bilateral pulmonary nodules. Several of [...] any questions regarding this interpretation, please call [phone]. If you are unable to reach us at the number above, please feel free to contact [facility] eRadiology at [phone].DIVISION OF RADIOLOGY* * *Final Report* * * DATE OF EXAM: Sep 15 2022 2:24PM [facility] [place] 0539 - CT CHEST W IVCON / [...] No abnormality in the imaged upper abdomen. Clam Bed Worker (topogram) images: No additional findings. DIVISION OF RADIOLOGYProvider, [facility] [place] - 09/15/2022 * * *Final Report* * * DATE OF EXAM: Sep 15 2022 2:24PM [facility] [place] 0539 - CT CHEST W IVCON / [...] No abnormality in the imaged upper abdomen. Clam Bed Worker (topogram) images: No additional findings. IMPRESSION IMPRESSION: [...] any questions regarding this interpretation, please call [phone]. If you are unable to reach us at the number above, please feel free to contact [facility] at [phone]. [facility] SystemRadiology Study observation (narrative)[facility] Chest W contrast IVOrdered By: Ccf Provider on 10-56-6243Peshzpxts ClinicComprehensive metabolic 2000 panelOrdered By: Judd James on 70-24-5216Dftiqed [Mass/Vol]4.3 g/dL3.9 - 4.9 g/dLChardon ClinicALP [Catalytic activity/Vol]95 U/L38 - 113 U/L [facility] ClinicALT [Catalytic activity/Vol]10 U/L10 - 54 U/LCleveland Clinic Anion gap [Moles/Vol]7 mmol/LLow9 - 18 mmol/LCleveland ClinicAST [Catalytic activity/Vol]15 U/L14 - 40 U/LCleveland ClinicBilirubin [Mass/Vol]0.4 mg/dL0.2 - 1.3 mg/dLChardon ClinicCalcium [Mass/Vol]8.9 mg/dL8.5 - 10.2 mg/dLChardon ClinicChloride [Moles/Vol]102 mmol/L97 - 105 mmol/LCleveland ClinicCO2 [Moles/Vol]24 mmol/L22 - 30 mmol/LCleveland ClinicCreatinine [Mass/Vol]1.07 mg/dL0.73 - 1.22 mg/dLChardon ClinicGFR/1.73 sq M.predicted among non-blacks MDRD (S/P/Bld) [Vol rate/Area]74 mL/min/{1.73_m2}- PINFCleveland ClinicComment on above:Estimated Glomerular Filtration Rate (eGFR) is calculated using the 2020 CKD-EPI creatinine equation. This equation utilizes serum creatinine, sex, and age as parameters. The creatinine assay has traceable calibration to isotope dilution-mass spectrometry. Refer to KDIGO guidelines for clinical inte rpretation. In patients with unstable renal function, e.g. those with acute kidney injury, the eGFRmay not accurately reflect actual GFR.Glucose [Mass/Vol] 97 mg/dL74 - 99 mg/dLAcmc Healthcare SystemComment on above:The [place] Diabetes Association (ADA) provides guidance for cutoff [...] Standards of Medical Care in Diabetes 2016, [place] Diabetes Association. Diabetes Care. 2016.39(Suppl 1). Interpretation and review of laboratory resultsAbnormalCleveland ClinicPotassium [Moles/Vol]4.1 mmol/L3.7 - 5.1 mmol/LCleveland ClinicProtein [Mass/Vol]7.5 g/dL 6.3 - 8.0 g/dLChardon ClinicSodium [Moles/Vol]133 mmol/AJbu766 - 144 mmol/L [facility] SystemUrea nitrogen [Mass/Vol]18 mg/dL9 - 24 mg/dLUniversity Hospitals Health SystemCT Chest W contrast Beth 41-15-4024MWFCWNCPWR: 1. Interval development of innumerable bilateral pulmonary nodules. Findings may be infectious/inflammatory or neoplastic in nature. 2. No evidence [...] any questions regarding this interpretation, please call [phone]. If you are unable to reach us at the number above, please feel free to contact [facility] eRadiology at [phone].DIVISION OF RADIOLOGY* * *Final Report* * * DATE OF EXAM: Jul 14 2022 2:22PM [facility] [place] 0539 - CT CHEST W IVCON / [...] No abnormality in the imaged upper abdomen. Clam Bed Worker (topogram) images: No additional findings. DIVISION OF RADIOLOGYProvider, [facility] [place] - 07/15/2022 * * *Final Report* * * DATE OF EXAM: Jul 14 2022 2:22PM [facility] 0539 - CT CHEST W IVCON / [...] No abnormality in the imaged upper abdomen. Clam Bed Worker (topogram) images: No additional findings. IMPRESSION IMPRESSION: 1. Interval development of innumerable bilateral pulmonary nodules. Findings may be infectious/inflammatory or neoplastic in nature. 2. No evidence [...] any questions regarding this interpretation, please call [phone]. If you are unable to reach us at the number above, please feel free to contact [facility] eRadiology at [phone]. [facility] Healthcare SystemCT Chest W contrast IVOrdered By: Ccf Provider on 07-15-2022 [facility] W Auto Differential panel (Bld)on 12-24-9295Hhfkvoydq (Bld) [#/Vol]0.07 10*3/uLNINFAcmc Healthcare SystemBasophils/100 WBC (Bld)0.7 %[facility] SystemDifferential cell count method Nom (Bld)AutoCleveland ClinicEosinophils (Bld) [#/Vol]0.56 10*3/uLHighNINFAcmc Healthcare SystemEosinophils/100 WBC (Bld)5.6 % [facility] SystemErythrocyte distribution width (RBC) [Ratio]13.2 %11.5 - 15.0 % [facility] SystemHematocrit (Bld) [Volume fraction]39.1 %39.0 - 51.0 %[facility] SystemHemoglobin (Bld) [Mass/Vol]12.9 g/dLLow13.0 - 17.0 g/dLAcmc Healthcare System Immature granulocytes (Bld) [#/Vol]0.07 10*3/uLNINFAcmc Healthcare SystemImmature granulocytes/100 WBC (Bld)0.7 %[facility] SystemInterpretation and review of laboratory resultsAbnormalCleveland ClinicLymphocytes (Bld) [#/Vol]2.02 10*3/uL [facility] SystemLymphocytes/100 WBC (Bld)20.1 %[facility]field HospitalH (RBC) [Entitic mass]30.7 pg26.0 - 34.0 pgClevelCass Lake HospitalHC (RBC) [Mass/Vol]33.0 g/dL30.5 - 36.0 g/dLMansfield HospitalV (RBC) [Entitic vol]93.1 fL80.0 - 100.0 fLClevelcone health annie penn hospital ClinicMonocytes (Bld) [#/Vol]1.06 10*3/uLHighNINFAcmc Healthcare System Monocytes/100 WBC (Bld)10.5 %[facility] Healthcare SystemNeutrophils (Bld) [#/Vol]6.29 10*3/uLAcmc Healthcare SystemNeutrophils/100 WBC (Bld)62.4 %[facility] SystemNucleated RBC (Bld) [#/Vol]NINFClevelMercy Health Perrysburg HospitalNucleated RBC/100 WBC (Bld) [Ratio]0.0 % /100 WBCAcmc Healthcare SystemPlatelet mean volume (Bld) [Entitic vol]8.9 fLLow9.0 - 12.7 fLClevelcone health annie penn hospital ClinicPlatelets (Bld) [#/Vol]261 10*3/uLAcmc Healthcare SystemRBC (Bld) [#/Vol]4.20 10*6/uL4.20 - 6.00 m/[facility] HospitalWBC (Bld) [#/Vol]10.07 10*3/uLAcmc Healthcare SystemThis is an appended report. These results have been appended to a previously verified report.[facility] CenterCT Chest W contrast Beth 53-68-1420Jdjogijvx Study observation (narrative)[facility] SystemComprehensive metabolic 2000 panelOrdered By: Judd James on 07-14-2022 Albumin [Mass/Vol]4.1 g/dL3.9 - 4.9 g/dLChardon ClinicALP [Catalytic activity/Vol]91 U/L38 - 113 U/LCleveland ClinicALT [Catalytic activity/Vol]9 U/L Low10 - 54 U/LCleveland ClinicAnion gap [Moles/Vol]6 mmol/LLow9 - 18 mmol/L [facility] SystemAST [Catalytic activity/Vol]17 U/L14 - 40 U/LC[facility] Clinic Bilirubin [Mass/Vol]0.4 mg/dL0.2 - 1.3 mg/dLChardon ClinicCalcium [Mass/Vol] 9.0 mg/dL8.5 - 10.2 mg/dLAcmc Healthcare SystemChloride [Moles/Vol]106 mmol/LHigh97 - 105 mmol/LCleveland ClinicCO2 [Moles/Vol]25 mmol/L22 - 30 mmol/LCleveland Clinic Creatinine [Mass/Vol]0.99 mg/dL0.73 - 1.22 mg/dLChardon ClinicGFR/1.73 sq M.predicted among non-blacks MDRD (S/P/Bld) [Vol rate/Area]81 mL/min/{1.73_m2}- PINFCUpper Valley Medical CenterComment on above:Estimated Glomerular Filtration Rate (eGFR) is calculated using the 2020 CKD-EPI creatinine equation. This equation utilizes serum creatinine, sex, and age as parameters. The creatinine assay has traceable calibration to isotope dilution-mass spectrometry. Refer to KDIGO guidelines for clinical interpretation. In patients with unstable renal function, e.g. those with acute kidney injury, the eGFRmay not accurately reflect actual GFR.Glucose [Mass/Vol]98 mg/dL74 - 99 mg/dLAcmc Healthcare SystemComment on above:The [place] Diabetes Association (ADA) provides guidance for cutoff [...] Standards of Medical Care in Diabetes 2016, [place] Diabetes Association. Diabetes Care. 2016.39(Suppl 1). Interpretation and review of laboratory resultsAbnormalCleveland ClinicPotassium [Moles/Vol]4.4 mmol/L3.7 - 5.1 mmol/LCleveland ClinicProtein [Mass/Vol]7.1 g/dL 6.3 - 8.0 g/dLMorrow County Hospitalodium [Moles/Vol]137 mmol/L136 - 144 mmol/L [facility] SystemUrea nitrogen [Mass/Vol]16 mg/dL9 - 24 mg/dLUniversity Hospitals Health SystemCOVID-19 SOFIAOrdered By: Krzysztof Queen on 04-14-2022 SARS-CoV+SARS-CoV-2 (COVID-19) Ag IA.rapid Ql (Resp)NegativeNegativeGenesis HospitalComment on above:This is a duplicate Rehana SARS Antigen (ELVIS) result to be used for statistical tracking purpose only.No Panel InformationOrdered By: Krzysztof Queen on 11-07-3595TQOM Antigen (LFIA)Genesis HospitalCB W Auto Differential panel (Bld)on [id number] (Bld) [#/Vol]0.05 10*3/uLNIUniversity Hospitals Parma Medical CenterBasophils/100 WBC (Bld)0.5 % [facility] SystemDifferential cell count method Nom (Bld)AutoCleveland [facility] Eosinophils (Bld) [#/Vol]0.30 10*3/uLNINFAcmc Healthcare SystemEosinophils/100 WBC (Bld)2.7 %[facility] SystemErythrocyte distribution width (RBC) [Ratio]13.9 %11.5 - 15.0 %[facility] SystemHematocrit (Bld) [Volume fraction]38.5 %Low39.0 - 51.0 %[facility] SystemHemoglobin (Bld) [Mass/Vol]12.5 g/dLLow13.0 - 17.0 g/dL [facility] SystemImmature granulocytes (Bld) [#/Vol]0.04 10*3/uLNINFAcmc Healthcare SystemImmature granulocytes/100 WBC (Bld)0.4 %[facility] SystemInterpretation and review of laboratory resultsAbnormalCleveland Abbott Northwestern HospitalLymphocytes (Bld) [#/Vol] 1.99 10*3/uLAcmc Healthcare SystemLymphocytes/100 WBC (Bld)18.0 %Mansfield HospitalH (RBC) [Entitic mass]29.2 pg26.0 - 34.0 pgCParkview HealthHC (RBC) [Mass/Vol] 32.5 g/dL30.5 - 36.0 g/dLAcmc Healthcare SystemMCV (RBC) [Entitic vol]90.0 fL80.0 - 100.0 fLCtrumbull regional medical center ClinicMonocytes (Bld) [#/Vol]1.10 10*3/uLHighNINFAcmc Healthcare SystemMonocytes/100 WBC (Bld)10.0 %[facility] SystemNeutrophils (Bld) [#/Vol]7.55 10*3/uLHighAcmc Healthcare SystemNeutrophils/100 WBC (Bld)68.4 %[facility] Nucleated RBC (Bld) [#/Vol]NINFCleveland ClinicNucleated RBC/100 WBC (Bld) [Ratio]0.0 %/100 WBCAcmc Healthcare SystemPlatelet mean volume (Bld) [Entitic vol]8.9 fLLow9.0 - 12.7 fLCtrumbull regional medical center ClinicPlatelets (Bld) [#/Vol]242 10*3/uLAcmc Healthcare SystemRBC (Bld) [#/Vol]4.28 10*6/uL4.20 - 6.00 m/[facility] HospitalWBC (Bld) [#/Vol]11.03 10*3/uLNationwide Children's HospitalThis is an appended report. These results have been appended to a previously verified report.[facility] SystemCT Chest W contrast Beth 20-36-6389JNUEPMRYAN: 1. Interval resolution of previously noted groundglass [...] any questions regarding this interpretation, please call [phone]. If you are unable to reach us at the number above, please feel free to contact [facility] eRadiology at [phone]. JOHN_DO_NOT_USE_DIVISION OF RADIOLOGY* * *Final Report* * * DATE OF EXAM: Mar 31 2022 2:15PM [facility] [place] 0539 - CT CHEST W IVCON / [...] CT scan report for the abdomen findings. Clam Bed Worker (topogram) images: No additional findings. ZZZ_DO_NOT_USE_DIVISION OF RADIOLOGYProvider, [facility] [place] - 03/31/2022 * * *Final Report* * * DATE OF EXAM: Mar 31 2022 2:15PM [facility] 0539 - CT CHEST W IVCON / [...] CT scan report for the abdomen findings. Clam Bed Worker (topogram) images: No additional findings. IMPRESSION IMPRESSION: [...] any questions regarding this interpretation, please call [phone]. If you are unable to reach us at the number above, please feel free to contact [facility] at [phone]. [facility] SystemRadiology Study observation (narrative)[facility] SystemCT Chest W contrast IVOrdered By: Ccf Provider on 71-93-9758Aygkjrbwg ClinicComprehensive metabolic 2000 panelOrdered By: Judd James on 05-30-0322Ossconn [Mass/Vol]4.1 g/dL3.9 - 4.9 g/dLChardon ClinicALP [Catalytic activity/Vol]82 U/L38 - 113 U/L [facility] ClinicALT [Catalytic activity/Vol]10 U/L10 - 54 U/LCleveland Clinic Anion gap [Moles/Vol]8 mmol/LLow9 - 18 mmol/LCleveland ClinicAST [Catalytic activity/Vol]19 U/L14 - 40 U/LCleveland ClinicBilirubin [Mass/Vol]0.4 mg/dL0.2 - 1.3 mg/dLChardon ClinicCalcium [Mass/Vol]9.2 mg/dL8.5 - 10.2 mg/dLChardon ClinicChloride [Moles/Vol]105 mmol/L97 - 105 mmol/LCleveland ClinicCO2 [Moles/Vol]25 mmol/L22 - 30 mmol/LCleveland ClinicCreatinine [Mass/Vol]1.02 mg/dL0.73 - 1.22 mg/dLChardon ClinicGFR/1.73 sq M.predicted among non-blacks MDRD (S/P/Bld) [Vol rate/Area]79 mL/min/{1.73_m2}- PINFCleveland ClinicComment on above:Estimated Glomerular Filtration Rate (eGFR) is calculated using the 2020 CKD-EPI creatinine equation. This equation utilizes serum creatinine, sex, and age as parameters. The creatinine assay has traceable calibration to isotope dilution-mass spectrometry. Refer to KDIGO guidelines for clinical inte rpretation. In patients with unstable renal function, e.g. those with acute kidney injury, the eGFRmay not accurately reflect actual GFR.Glucose [Mass/Vol] 101 mg/yTXwjc15 - 99 mg/dLAcmc Healthcare SystemComment on above:The [place] Diabetes Association (ADA) provides guidance for cutoff [...] Standards of Medical Care in Diabetes 2016, [place] Diabetes Association. Diabetes Care. 2016.39(Suppl 1). Interpretation and review of laboratory resultsAbnormalCleveland ClinicPotassium [Moles/Vol]4.8 mmol/L3.7 - 5.1 mmol/LCleveland ClinicProtein [Mass/Vol]7.1 g/dL 6.3 - 8.0 g/dLChardon ClinicSodium [Moles/Vol]138 mmol/L136 - 144 mmol/L [facility] SystemUrea nitrogen [Mass/Vol]12 mg/dL9 - 24 mg/dLUniversity Hospitals Health SystemECHOCARDIO M/2D COMPLETEon 82-62-5296NQULTOODXG M/2D COMPLETE Patient: DOC BURNS Exam Date: 03/15/2022 : 1950 Gender:M Ordering : DR JJ AYOUB M.D. Admission #: [id number] Family : SHAIKH Tres ETIENNE . Order #: [id number] CLICK HERE TO VIEW EXAM ECHOCARDIOGRAM REPORT [...] Area(A4C): 19.90 cm2 Left Atrium Systolic Volume(A2C): 31065 mm3 Left Atrium Systolic Volume(A4C): 74010 mm3 Mitral Valve MV E to A [...] Gradient: 6 mm[Hg] Right Atrium Dictated by: Jj Ayoub M.D. on 03/15/2022 at 18:43 Approved by: Jj Ayoub M.D. on 03/15/2022 at 18:52[facility] HospitalPROF CHEM 8 (BAS METB)on 86-36-4022Dyyke gap [Moles/Vol]10.9 mmol/L NormalThe [place] State Health SystemComment on above:Performed By: #### BMP #### [facility] [address] [place] [address] Dr. Denae DavisCalcium [Mass/Vol]9.0 mg/dLNormal8.5-10.1[facility] Comment on above:Performed By: #### BMP #### [facility] [address] [place] [address] Dr. Denae DavisChloride [Moles/Vol]104 mmol/BZkrtdu10-290AwxRegency Hospital [facility] Comment on above:Performed By: #### BMP #### [facility] [address] [place] [address] Dr. Denae DavisCO2 [Moles/Vol]28.3 mmol/XLoibxa03.0-32.0[facility] Comment on above:Performed By: #### BMP #### [facility] [address] [place] [address] Dr. Denae DavisCreatinine [Mass/Vol]1.15 mg/dLNormal0.70-1.30The [place] [facility] Health SystemComment on above:Performed By: #### BMP #### [facility] [address] [place] [address] Dr. Philippe ChangEGFR-AF NAMIBIAN>60Normal>=60The [place] [facility] SystemComment on above:Performed By: #### BMP #### [facility] [address] [place] [address] Dr. Denae GallegosGFR-NON AF NAMIBIAN>60Normal>=60[facility] EastComment on above:Performed By: #### BMP #### [facility] [address] [address] [address] Denae DavisGlucose [Mass/Vol]103 mg/bXQdjsgm58-802NwmRegency Hospital [facility] Comment on above:Performed By: #### BMP #### [facility] [address] [place] [address] Dr. Denae DavisPotassium [Moles/Vol]4.2 mmol/LNormal3.5-5.1[facility] Comment on above:Performed By: #### BMP #### [facility] [address] [place] [address] Dr. Denae DavisSodium [Moles/Vol]139 mmol/ERamhkd764-071EcaRegency Hospital [facility] East Comment on above:Performed By: #### BMP #### [facility] [address] [address] [address] Denae DavisUrea nitrogen [Mass/Vol]17.0 mg/dLNormal7.0-18.0[facility] EastComment on above:Performed By: #### BMP #### [facility] [address] [place] [address] Dr. Denae DavisUrea nitrogen/Creatinine [Mass ratio]14.8 mg/mgNormalThe [place] [facility] Health SystemComment on above:Performed By: #### BMP #### [facility] [address] [place] [address] Dr. Denae Cota POSTPROC EVALon [id number] POSTPROC EVALHNO ID: [id number] Author: Alena Mortensen MD Service: Anesthesiology Author [...] Documentation SIGNATURE: Alena Mortensen MD PATIENT NAME: Doc Burns DATE: January 10, 2022 TIME: 1:22 PM CSN: [id number] [facility] PRE-OPon 61-39-5500KDOG PRE-OPHNO ID: [id number] Author: Alena Mortensen MD Service: Anesthesiology Author Type: Anesthesiologist Type: Anesthesia Preprocedure Evaluation Filed: 01/10/2022 10:12 AM Note Text: ANESTHESIOLOGY DAY OF SURGERY NOTE : 1950 Procedure Information Date/Time: 01/10/22 1030 Procedures: LAPAROSCOPY DIAGNOSTIC ABDOMEN, PERITONEUM AND OMENTUM (N/A Abdomen) - keep 2nd case transportation issues LAPAROSCOPIC BIOPSY LIVER (N/A Abdomen) Location: [place] [address] / OR Surgeons: Bj Mota MD Estimated [...] Surgery/Procedure. SIGNATURE: Alena Mortensen MD PATIENT NAME: Doc Burns DATE: January 10, 2022 TIME: 10:11 AM CSN: [id number] NOTon 01-10-2022 BRIEF OP NOTHNO ID: [id number] Author: Natacha Melo MD Service: General Surgery Author Type: Resident Type: Brief Op Note Filed: 01/10/2022 12:20 PM Note Text: BRIEF OPERATIVE / PROCEDURE NOTE LOG ID: [id number] SURGERY/PROCEDURE DATE: 01/10/2022 INCISION/PROCEDURE START TIME: 11:28 AM INCISION CLOSE/PROCEDURE END TIME: 12:16 PM SURGEON(S)/PROCEDURALIST(S) AND TRUCK SALES REPRESENTATIVE(S): Surgeon(s) and Role: * Bj Mota MD [...] Preop SIGNATURE: Natacha Melo MD PATIENT NAME: Doc Burns DATE: January 10, 2022 TIME: 12:19 [facility] [id number] [facility] ID: [id number] Author: Carmen Huizar RN Service: ? Author Type: Registered Nurse Type: Nursing Progress Note Filed: 01/10/2022 8:54 AM Note Text: PATIENT EDUCATION TOPIC: PROCEDURE / SURGERY: Pre-op Teaching: Logistics Protocols PATIENT NAME: Doc Burns PATIENT LOCATION: [facility] OR POOL/[facility] OR POOL READINESS TO LEARN COGNITIVE ABILITY: Alert and oriented MOTIVATION TO LEARN: Eager FAMILY SUPPORT: None - Unavailable/disinterested INSTRUCTION PROVIDED TO: Patient PATIENT LEARNS BEST [...] REFERRAL (RECOMMENDATION): None Electronically Signed By: Carmen [facility] [id number] NOO ID: [id number] Author: Bj Mota MD Service: General Surgery Author Type: Physician Type: Operative Report Filed: 01/12/2022 2:26 PM Note Text: [facility] - Operative Report DOC BURNS : 1950 AGE: 71. SEX: M PATIENT TYPE: A HOSP [place]: [facility] LOCATION: [facility] ATTENDING PHYSICIAN: Bj Mota MD CSN NUMBER: [id number] DATE OF SURGERY/PROCEDURE: 01/10/2022 INCISION/PROCEDURE START TIME: 11:28 AM INCISION CLOSE/PROCEDURE END TIME: 12:16 PM PREOPERATIVE DIAGNOSIS: Liver mass. POSTOPERATIVE DIAGNOSIS: Liver mass. SURGEON: Bj Mota MD TRUCK SALES REPRESENTATIVE: Radha Melo MD. SURGERY/PROCEDURE: 1. Diagnostic laparoscopy. [...] of the liver. Patient was referred to nm for an operative biopsy. OPERATIVE FINDINGS: Cystic [...] in throughout the operation. Bj Mota MD TA:[id number] /[id number] NAddison Gilbert HospitalPT EDon [id number] EDHNO ID: [id number] Author: Kajal Acosta RN Service: Nursing Author [...] MATERIAL PROVIDED TO PATIENT: Post op discharge instructions.[facility] PATHOLOGYon [id number] REPORT [facility] HospitalComment on above:Order Comment: Specimen Type: TISSUE SPECIMEN Ordering Facility: [facility] Address: [address] [place] [id number] Comment: Surgical Pathology Report Case: [id number] Authorizing Provider: Bj Mota MD Collected: 01/10/2022 11:56 AM Ordering Location: [facility] Received: 01/10/2022 01:36 PM Operating Room Pathologist: Miguel Darden MD Specimen: LIVER PARTIAL RESECTION, liver massPerformed By: #### S #### [facility] CLIA [id number] [address] [place], [place] [address]DIAGNOSIS COMMENTNoNashoba Valley Medical Center on above:Order Comment: Specimen Type: TISSUE SPECIMEN Ordering Facility: [facility] Address: [address] [place] [address]Result Comment: We note the clinical history of a [...] trichrome stain shows no significant evidence of fibrosis.Performed By: #### S #### [facility] CLIA [id number] [address] [place], [place] [address]FINAL DIAGNOSISNormal [facility] SanatoriumComment on above:Order Comment: Specimen Type: TISSUE SPECIMEN Ordering Facility: [facility] Address: [address] [place], [place] [address] Comment: A. Liver, partial resection: - Ciliated foregut cyst. - Parenchymal margin is not involved. - Hepatic parenchyma with mild portal inflammation. AEB/tg 01/13/2022 Performed By: #### S #### [facility] CLIA [id number] [address] [place], [place] [address]FINAL PERFORMING LABNormCape Cod and The Islands Mental Health CenterComment on above:Order Comment: Specimen Type: TISSUE SPECIMEN Ordering Facility: [facility] Address: [address] [place] [address]Result Comment: Diagnostic interpretation performed at [facility], [address] [place], [place] [address] CLIA# [id number] Media Account Executive: Denzel Vela M.D.Performed By: #### S #### [facility] CLIA [id number] [address] [place], [place] [address] [place] OF AMERICAGROSS DESCRIPTIONNormal [facility] SanatoriumComment on above:Order Comment: Specimen Type: TISSUE SPECIMEN Ordering Facility: [facility] Address: [address] [place] [phone] Comment: A. LIVER PARTIAL RESECTION. Received in formalin [...] A3-A4 remainderof specimen. Gross examination performed at [facility], [address] [place], [place] [address] CLIA# [id number] [facility] January 12, 2022 9:23 AMPerformed By: #### S #### [facility] CLIA [id number] [address] [place], [place] [address] [place] OF AMERICABasic metabolic 2000 panelon 26-75-8575Gjlop gap [Moles/Vol]13 mmol/L9 - 18 mmol/LCleveland ClinicCalcium [Mass/Vol]9.8 mg/dL8.5 - 10.2 mg/dLChardon ClinicChloride [Moles/Vol]101 mmol/L97 - 105 mmol/LCleveland ClinicCO2 [Moles/Vol]24 mmol/L22 - 30 mmol/L [facility] SystemCreatinine [Mass/Vol]0.90 mg/dL0.73 - 1.22 mg/dLAcmc Healthcare System Estimated Glomerular Filtration Rate92 mL/min/1.73m>=60 mL/min/1.73mCleveland ClinicGlucose [Mass/Vol]101 mg/uLJqql57 - 99 mg/dLAcmc Healthcare SystemPotassium [Moles/Vol]4.5 mmol/L3.7 - 5.1 mmol/LCleveland ClinicSodium [Moles/Vol]138 mmol/L136 - 144 mmol/LCleveland [facility] Northwestern HospitalUrea nitrogen [Mass/Vol]12 mg/dL9 - 24 mg/dLElyria Memorial Hospital W Auto Differential panel (Bld)on [id number] Immature Gran0.06 k/uL<0.10 k/uLChardon ClinicBasophils (Bld) [#/Vol]0.05 10*3/uL<0.11 k/uLAcmc Healthcare SystemBasophils/100 WBC (Bld)0.5 %[facility] Differential cell count method Nom (Bld)AutoCleveland ClinicEosinophils (Bld) [#/Vol]0.28 10*3/uL<0.46 k/uLAcmc Healthcare SystemEosinophils/100 WBC (Bld)2.6 % [facility] Healthcare SystemErythrocyte distribution width (RBC) [Ratio]17.2 %High11.5 - 15.0 %[facility] Healthcare SystemHematocrit (Bld) [Volume fraction]39.3 %39.0 - 51.0 % [facility] SystemHemoglobin (Bld) [Mass/Vol]12.8 g/dLLow13.0 - 17.0 g/dLAcmc Healthcare SystemImmature Gran %0.6 %[facility] Healthcare SystemLymphocytes (Bld) [#/Vol]1.60 10*3/uL 1.00 - 4.00 k/uLAcmc Healthcare SystemLymphocytes/100 WBC (Bld)15.1 %[facility] MCH (RBC) [Entitic mass]28.8 pg26.0 - 34.0 pgCleveland Essentia HealthHC (RBC) [Mass/Vol]32.6 g/dL30.5 - 36.0 g/dLAcmc Healthcare SystemMCV (RBC) [Entitic vol]88.5 fL80.0 - 100.0 fLCleveland Abbott Northwestern HospitalMonocytes (Bld) [#/Vol]1.02 10*3/uLHigh<0.87 k/uLChardon ClinicMonocytes/100 WBC (Bld)9.6 %[facility] Healthcare SystemNeutrophils (Bld) [#/Vol]7.59 10*3/uLHigh1.45 - 7.50 k/uLAcmc Healthcare SystemNeutrophils/100 WBC (Bld)71.6 %[facility] SystemNucleated RBC (Bld) [#/Vol]10*3/uL<0.01 k/uL [facility] SystemNucleated RBC/100 WBC (Bld) [Ratio]0.0 /100 WBCAcmc Healthcare System Platelet mean volume (Bld) [Entitic vol]9.4 fL9.0 - 12.7 fLCUpper Valley Medical Center Platelets (Bld) [#/Vol]251 10*3/uL150 - 400 k/uLAcmc Healthcare SystemRBC (Bld) [#/Vol]4.44 10*6/uL4.20 - 6.00 m/uLAcmc Healthcare SystemWBC (Bld) [#/Vol]10.60 10*3/uL3.70 - 11.00 k/[facility] HospitalCBC W Auto Differential panel (Bld)on 73-13-7389Pjqleclvv (Bld) [#/Vol]0.06 10*3/uLNINFAcmc Healthcare SystemBasophils/100 WBC (Bld)0.7 %[facility] SystemDifferential cell count method Nom (Bld)Auto [facility] SystemEosinophils (Bld) [#/Vol]0.90 10*3/uLHighNIUniversity Hospitals [facility] Eosinophils/100 WBC (Bld)9.8 %[facility] Healthcare SystemErythrocyte distribution width (RBC) [Ratio]18.1 %High11.5 - 15.0 %[facility] Healthcare SystemHematocrit (Bld) [Volume fraction]34.8 %Low39.0 - 51.0 %[facility] SystemHemoglobin (Bld) [Mass/Vol]10.8 g/dLLow13.0 - 17.0 g/dLAcmc Healthcare SystemImmature granulocytes (Bld) [#/Vol]0.03 10*3/uLNINFAcmc Healthcare SystemImmature granulocytes/100 WBC (Bld)0.3 %[facility] SystemInterpretation and review of laboratory resultsAbnormalCUpper Valley Medical Center Lymphocytes (Bld) [#/Vol]1.59 10*3/uLAcmc Healthcare SystemLymphocytes/100 WBC (Bld) 17.3 %[facility]field HospitalH (RBC) [Entitic mass]27.7 pg26.0 - 34.0 pgCParkview HealthHC (RBC) [Mass/Vol]31.0 g/dL30.5 - 36.0 g/dLAcmc Healthcare SystemMCV (RBC) [Entitic vol]89.2 fL80.0 - 100.0 fLCUpper Valley Medical CenterMonocytes (Bld) [#/Vol]0.87 10*3/uLHighNINFAcmc Healthcare SystemMonocytes/100 WBC (Bld)9.5 %[facility] Neutrophils (Bld) [#/Vol]5.75 10*3/uLAcmc Healthcare SystemNeutrophils/100 WBC (Bld) 62.4 %[facility] SystemNucleated RBC (Bld) [#/Vol]NINFClevelMercy Health Perrysburg HospitalNucleated RBC/100 WBC (Bld) [Ratio]0.0 %/100 WBCAcmc Healthcare SystemPlatelet mean volume (Bld) [Entitic vol]9.7 fL9.0 - 12.7 fLCtrumbull regional medical center ClinicPlatelets (Bld) [#/Vol]233 10*3/[facility] HospitalRBC (Bld) [#/Vol]3.90 10*6/uLLow4.20 - 6.00 m/[facility] HospitalWBC (Bld) [#/Vol]9.20 10*3/[facility] HospitalThis is an appended report. These results have been appended to a previously verified report.[facility] Medical CenterCT Abdomen and Pelvis W contrast Beth 12-10-2021 IMPRESSION: 1. Since 10/22/2021, unchanged [...] any questions regarding this interpretation, please call [phone]. If you are unable to reach us at the number above, please feel free to contact [facility] eRadiology at [phone].DIVISION OF RADIOLOGY* * *Final Report* * * DATE OF EXAM: Dec 10 2021 1:55PM [facility] 0550 - CT LIVER/PELVIS W IVCON / [...] size of previously mildly enlarged lymph nodes. Fishing Accessories Maker examples are detailed as follows on series [...] involve the lumbar spine. Lower thorax: Unremarkable. Clam Bed Worker (topogram) images: No additional findings. DIVISION OF RADIOLOGYProvider, [facility] [place] - 12/10/2021 * * *Final Report* * * DATE OF EXAM: Dec 10 2021 1:55PM [facility] 0550 - CT LIVER/PELVIS W IVCON / [...] size of previously mildly enlarged lymph nodes. Fishing Accessories Maker examples are detailed as follows on series [...] involve the lumbar spine. Lower thorax: Unremarkable. Clam Bed Worker (topogram) images: No additional findings. IMPRESSION IMPRESSION: [...] any questions regarding this interpretation, please call [phone]. If you are unable to reach us at the number above, please feel free to contact [facility] at [phone]. [facility] SystemRadiology Study observation (narrative)[facility] Abdomen and Pelvis W contrast IVOrdered By: Ccf Provider on [id number] ClinicComprehensive metabolic 2000 panelOrdered By: Oanh Escobar on 12-10-2021 Albumin [Mass/Vol]4.3 g/dL3.9 - 4.9 g/dLChardon ClinicALP [Catalytic activity/Vol]95 U/L38 - 113 U/LCleveland ClinicALT [Catalytic activity/Vol]12 U/L10 - 54 U/LCleveland ClinicAnion gap [Moles/Vol]9 mmol/L9 - 18 mmol/L Chardon ClinicAST [Catalytic activity/Vol]16 U/L14 - 40 U/LCleveland [facility] Bilirubin [Mass/Vol]0.3 mg/dL0.2 - 1.3 mg/dLChardon ClinicCalcium [Mass/Vol] 9.4 mg/dL8.5 - 10.2 mg/dLChardon ClinicChloride [Moles/Vol]108 mmol/LHigh97 - 105 mmol/LCleveland ClinicCO2 [Moles/Vol]24 mmol/L22 - 30 mmol/LCleveland Clinic Creatinine [Mass/Vol]0.88 mg/dL0.73 - 1.22 mg/dLAcmc Healthcare SystemGFR/1.73 sq M.predicted among non-blacks MDRD (S/P/Bld) [Vol rate/Area]93 mL/min/{1.73_m2}- PINSelect Medical Specialty Hospital - AkronComment on above:Estimated Glomerular Filtration Rate (eGFR) is calculated using the 2020 CKD-EPI creatinine equation. This equation utilizes serum creatinine, sex, and age as parameters. The creatinine assay has traceable calibration to isotope dilution-mass spectrometry. Refer to KDIGO guidelines for clinical interpretation. In patients with unstable renal function, e.g. those with acute kidney injury, the eGFRmay not accurately reflect actual GFR.Glucose [Mass/Vol]101 mg/cNEhpy52 - 99 mg/dLAcmc Healthcare SystemComment on above:The [place] Diabetes Association (ADA) provides guidance for cutoff [...] Standards of Medical Care in Diabetes 2016, [place] Diabetes Association. Diabetes Care. 2016.39(Suppl 1). Interpretation and review of laboratory resultsAbnormalCleveland ClinicPotassium [Moles/Vol]4.8 mmol/L3.7 - 5.1 mmol/LCleveland ClinicProtein [Mass/Vol]6.8 g/dL 6.3 - 8.0 g/dLChardon ClinicSodium [Moles/Vol]141 mmol/L136 - 144 mmol/L [facility] SystemUrea nitrogen [Mass/Vol]17 mg/dL9 - 24 mg/dLUniversity Hospitals Health SystemCT Abdomen and Pelvis W contrast Beth [id number]: 1. Interval development of an approximate 1.1 [...] any questions regarding this interpretation, please call [phone]. If you are unable to reach us at the number above, please feel free to contact [facility] at [phone].DIVISION OF RADIOLOGY* * *Final Report* * * DATE OF EXAM: Oct 22 2021 2:51PM [facility] 0530 - CT ABD/PEL W IVCON / [...] performed concurrently and will be dictated separately. Clam Bed Worker (topogram) images: No additional findings. DIVISION OF RADIOLOGYProvider, [facility] [place] - 10/25/2021 * * *Final Report* * * DATE OF EXAM: Oct 22 2021 2:51PM [facility] 0530 - CT ABD/PEL W IVCON / [...] performed concurrently and will be dictated separately. Clam Bed Worker (topogram) images: No additional findings. IMPRESSION IMPRESSION: [...] any questions regarding this interpretation, please call [phone]. If you are unable to reach us at the number above, please feel free to contact [facility] eRadiology at [phone]. [facility] Chest W contrast Beth [id number]: 1. Newly apparent patchy bilateral groundglass opacities, [...] any questions regarding this interpretation, please call [phone]. If you are unable to reach us at the number above, please feel free to contact [facility] at [phone].DIVISION OF RADIOLOGY* * *Final Report* * * DATE OF EXAM: Oct 22 2021 2:51PM [facility] 0539 - CT CHEST W IVCON / [...] left greater than right, new finding, likely infectious/inflammatory in nature. 2 mm left upper lobe [...] performed concurrently and will be dictated separately. Clam Bed Worker (topogram) images: No additional findings. DIVISION OF RADIOLOGYProvider, [facility] [place] - 10/25/2021 * * *Final Report* * * DATE OF EXAM: Oct 22 2021 2:51PM [facility] 0539 - CT CHEST W IVCON / [...] left greater than right, new finding, likely infectious/inflammatory in nature. 2 mm left upper lobe [...] performed concurrently and will be dictated separately. Clam Bed Worker (topogram) images: No additional findings. IMPRESSION IMPRESSION: [...] any questions regarding this interpretation, please call [phone]. If you are unable to reach us at the number above, please feel free to contact [facility] eRadiology at [phone]. [facility] Panel InformationOrdered By: Ccf Provider on 10-25-2021 [facility] Panel Informationon [id number] Study observation (narrative)[facility] AND LATERALon 60-25-4965KGPMA AND LATERAL [facility] Department of Radiology [address] [place] [id number] Patient Name: DOC BURNS : 1950 Sex: M Age: Race: White Pt. Location: Patient Status: O Ordered Date: 10/12/2020 11:20:00 AM Completed Date: 10/12/2020 11:24 AM Requesting Provider: RUSS ARNDT Attending Provider: RUSS ARNDT Report Copy To: Signs & Symptoms: R91.8 Other nonspecific abnormal finding of lung field I10 History: [place] Comments: Exam: CHEST AND LATERAL CHEST AND [...] hemidiaphragm. Electronically signed: Car Werner. Transcribed by: [email or web address], User Resident: Electronically Signed by: CAR WERNER @ 10/12/2020 11:33 AMNormalThe [facility] Vital Signs Date TimeVital SignValuePerforming QgsbyrhzaAtxxoslo32-49-0295 13:53-0500Body lylara432.64 Reyna Etienne MD Work Phone: [facility]11-06-2025 13:53-0500 Body mass index (BMI) [Ratio]27.6 kg/s5HrvvduShaikh Lowell HEAD Work Phone: [phone]11-06-2025 13:53-0500 Body bkbvysajwdu80.5 [degF]Shaikh Lowell HEAD Work Phone: 1(685)[address] [place], [place] [address]11-06-2025 13:53-0500 Body evapdn46.56 kgShaikh Lowell HEAD Work Phone: [phone])[address] [place], [place] [address]337[address]-06-2025 13:53-0500 Diastolic blood cyjcrocr75 mm[Hg]Shaikh Lowell HEAD Work Phone: [phone])[address] [place], [place] [address]11-06-2025 13:53-0500 Heart rate61 /Daniel Etienne MD Work Phone: [phone] [place], [place] 9833711-06-2025 13:53-0500 Respiratory rate20 /Daniel Etienne MD Work Phone: [phone] [place], [place] 9833711-06-2025 13:53-0500 Systolic blood gwhenxzs179 mm[Hg]Shaikh Lowell HAED Work Phone: [phone])[address] [place], [place] 98[address]-25-2025 08:45-0400 Body .6 cmSdonna Lentz DO Work Phone: [facility]09-25-2025 08:45-0400Body mass index (BMI) [Ratio]26.53 kg/k4KigomvRichard Lentz DO Work Phone: [facility]09-25-2025 08:45-0400Body .53 kgRichard Lentz DO Work Phone: [facility]09-25-2025 08:45-0400Diastolic blood cecgoxov25 mm[Hg]Richard Lentz DO Work Phone: [facility]09-25-2025 08:45-0400Heart rate 57 /Liliya Lentz DO Work Phone: [facility]09-25-2025 08:45-8425TdK1% (BldA) [Mass fraction]96 %Richard Lentz DO Work Phone: [facility]09-25-2025 08:45-0400Systolic blood icuounfh992 mm[Hg]Richard Lentz DO Work Phone: [facility]09-24-2025 17:44-0400Body hiqgmw893.64 Reyna Etienne MD Work Phone: [phone]09-24-2025 17:44-0400 Body mass index (BMI) [Ratio]26.5 kg/y6KjhmfoShaikh Lowell HEAD Work Phone: [phone] [place], [place] 9833709-24-2025 17:44-0400 Body zesentlgmpl10.7 [degF]Shaikh Lowell HEAD Work Phone: [phone] [place], [place] 9833709-24-2025 17:44-0400 Body mbhyxd52.55 kgShaikh Lowell HEAD Work Phone: [phone] [place], [place] 9833[address]-24-2025 17:44-0400 Diastolic blood tflvpzny38 mm[Hg]Shaikh Lowell HEAD Work Phone: [phone] [place], [place] 9833709-24-2025 17:44-0400 Heart rate66 /Daniel Etienne MD Work Phone: [phone] [place], [place] 9833[address]-24-2025 17:44-0400 Respiratory rate20 /Daniel Etienne MD Work Phone: [phone])[address] [place], [place] 9833709-24-2025 17:44-0400 SaO2% (BldA) [Mass fraction]98 %Shaikh Lowell HEAD Work Phone: [phone])[address] [place], [place] 9833[address]-24-2025 17:44-0400 Systolic blood kgdclcof27 mm[Hg]Shaikh Lowell HEAD Work Phone: [phone] [place], [place] 9833[address]-04-2025 16:30-0400 Diastolic blood taugzalf54 mm[Hg]Chair Dodson Work Phone: [facility] Healthcare SystemComment on above:post morphine 05-08-2025 16:30-0400Systolic blood utwvfrwt060 mm[Hg]Chair Dodson Work Phone: [facility] SystemComment on above:post morphine 05-08-2025 14:52-0400Body vsbyat539.6 cmGlenna Ramirez APRN.CONTACT CENTER CONSULTANT Work Phone: [facility]09-04-2025 14:52-0400Body mass index (BMI) [Ratio]26.88 kg/e9FhzveGlenna Ramirez APRN.CONTACT CENTER CONSULTANT Work Phone: [facility]09-04-2025 14:52-0400Body temperature 97.81 [degF]Glenna Ramirez APRN.CONTACT CENTER CONSULTANT Work Phone: [facility]09-04-2025 14:52-0400Body .5 kgGlenna Ramirez APRN.CONTACT CENTER CONSULTANT Work Phone: [facility]09-04-2025 14:52-0400Diastolic blood vrmuojbx91 mm[Hg]Glenna Ramirez APRN.CONTACT CENTER CONSULTANT Work Phone: [facility]09-04-2025 14:52-0400Heart rate64 /min Glenna Ramirez APRN.CONTACT CENTER CONSULTANT Work Phone: [facility]09-04-2025 14:52-0400Respiratory rate 16 /minGlenna Ramirez APRN.CONTACT CENTER CONSULTANT Work Phone: [facility]09-04-2025 14:52-3824NoA3% (BldA) [Mass fraction]98 %Glenna Ramirez APRN.CONTACT CENTER CONSULTANT Work Phone: [facility]09-04-2025 14:52-0400Systolic blood msrcspap637 mm[Hg]Glenna Ramirez APRN.CONTACT CENTER CONSULTANT Work Phone: [facility]09-02-2025 12:24-0400Body okvzta426.6 cmMac Robins MD Work Phone: [facility] CenterBreakTheCrates.com09-02-2025 12:24-0400Body mass index (BMI) [Ratio]28.74 kg/j4KupckqdMac Robins MD Work Phone: [facility] CenterBreakTheCrates.com09-02-2025 12:24-0400Body [degF]Mac Robins MD Work Phone: [facility] CenterBreakTheCrates.com09-02-2025 12:24-0400Body ofmivg31.74 kgMac Robins MD Work Phone: [facility] CenterBreakTheCrates.com08-21-2025 16:10-0400Heart rate 61 /minRobert Ayla DO Work Phone: [facility] CenterBreakTheCrates.com08-21-2025 16:10-0400 Respiratory rate18 /minRobert Ayla DO Work Phone: [facility] CenterBreakTheCrates.com08-21-2025 16:10-6910DaU3% (BldA) [Mass fraction]100 %Igor Steel DO Work Phone: [facility] AndersonFeed.fm Lrnzaq87-06-6613 11:46-0400Body iftkhlzypoo91.9 [degF]Igor Steel DO Work Phone: [facility] AndersonFeed.fm Cevjjw40-02-0942 11:46-0400Diastolic blood hdgixwcl03 mm[Hg]gIor Steel DO Work Phone: [facility] AndersonFLS Energy08-21-2025 11:46-0400Systolic blood zwdsgpon443 mm[Hg]Igor Steel DO Work Phone: [facility] CenterBTI Systems Tqwkqs08-19-3241 10:51-8896EfW0% (BldA) [Mass fraction]93 %Igor Steel DO Work Phone: [facility] CenterBreakTheCrates.com08-19-2025 10:51-4245NvC9% (BldA) [Mass fraction]92 %Igor Steel DO Work Phone: [facility] CenterBreakTheCrates.com08-19-2025 10:40-0750SrO2% (BldA) [Mass fraction]92 %MAC [facility] HospitalComment on above:Performed By: #### AMYL #### [facility] ([facility]) [address] [place], [place] [address]-18-2025 06:00-0400Body mass index (BMI) [Ratio]29.36 kg/a4Qbftry Ayla DO Work Phone: [phone] [place], [place] 9211508-18-2025 06:00-0400Body kfbhiy37.5 kgRobcamilla Steel DO Work Phone: 1(637)[address] [place], [place] 9211508-17-2025 05:20-1072MgA9% (BldA) [Mass fraction]87 %Igor Steel DO Work Phone: 1(611)[address] [place], [place] 9211508-17-2025 05:20-9649AuD2% (BldA) [Mass fraction]96 %Igor Steel DO Work Phone: [phone])[address] [place], [place] 9211508-17-2025 05:15-5289LzK9% (BldA) [Mass fraction]96 %MAC [facility] HospitalComment on above:Performed By: #### AMYL #### [facility] ([facility]) [address] [address] [place], [place] 7453108-16-2025 06:43-5434MfT9% (BldA) [Mass fraction]96 %Igor Steel DO Work Phone: [phone] [place], [place] 9211508-16-2025 06:43-1775OaA0% (BldA) [Mass fraction]97 %Igor Steel DO Work Phone: [phone] [place], [place] 9211508-16-2025 06:40-9135CfS1% (BldA) [Mass fraction]97 %[facility] HospitalComment on above:Performed By: #### CMP #### [facility] ([facility]) [address] [place] [address] [id number] 05:58-3053ZtL2% (BldA) [Mass fraction]96 %Igor Steel DO Work Phone: [phone] [place], [place] 9211508-15-2025 05:25-8973OoF4% (BldA) [Mass fraction]96 %[facility] HospitalComment on above:Performed By: #### CMP #### [facility] ([facility]) [address]08-14-2025 04:59-4239FyC3% (BldA) [Mass fraction]87 %Igor Steel DO Work Phone: [phone] [place], [place] 9211508-14-2025 04:59-2580DrE2% (BldA) [Mass fraction]94 %Igor Steel DO Work Phone: [phone] [place], [place] 9211508-14-2025 04:42-8971NzS1% (BldA) [Mass fraction]94 %[facility] HospitalComment on above:Performed By: #### CBCA #### [facility] ([facility]) [address] [place] [address] [id number] 16:34-0742QgW1% (BldA) [Mass fraction]93 %Igor Steel DO Work Phone: [phone] [place], [place] 9211508-13-2025 16:34-9816YwN3% (BldA) [Mass fraction]100 %Igor Steel DO Work Phone: [phone] [place], [place] 9211508-13-2025 16:29-2449HqH1% (BldA) [Mass fraction]100 %[facility] HospitalComment on above:Performed By: #### CBCA #### [facility] ([facility]) [address] [place] [address] [id number] 15:10-8154KbN0% (BldA) [Mass fraction]78 %Igor Steel DO Work Phone: [phone] [place], [place] 9211508-13-2025 15:10-6091FoE2% (BldA) [Mass fraction]90 %Igor Steel DO Work Phone: [phone]08-13-2025 05:04-3694DrE4% (BldA) [Mass fraction]90 %[facility] HospitalComment on above:Performed By: #### CBCA #### [facility] ([facility]) [address] [place] [id number] 10:46-4400RbB6% (BldA) [Mass fraction]91 %Igor Steel DO Work Phone: [phone] [place], [place] 9211508-12-2025 10:46-6590HlW1% (BldA) [Mass fraction]95 %Igor Steel DO Work Phone: [phone] [place], [place] 9211508-12-2025 10:38-4686JyX3% (BldA) [Mass fraction]95 %[facility] HospitalComment on above:Performed By: #### ABG ####[facility] ([facility])[address] [place] [address] [id number] 21:01-5706NzV9% (BldA) [Mass fraction]91 % Igor Steel DO Work Phone: [phone] [place], [place] 9211508-11-2025 21:01-8901EhE9% (BldA) [Mass fraction]95 %Igor Cordobayuliana DO Work Phone: [phone] [place], [place] 9211508-11-2025 20:59-4448ZwT6% (BldA) [Mass fraction]95 %[facility] HospitalComment on above:Performed By: #### ABG ####[facility] ([facility])[address] [place] [id number] 05:30-0400Body tvnbyi123.6 cmRoberolga Cordobayuliana DO Work Phone: [phone] [place], [place] 9211506-19-2025 14:53-0400Body ufeitn890.6 cmSdonna Lentz DO Work Phone: [facility]06-19-2025 14:53-0400Body mass index (BMI) [Ratio]28.89 kg/p5NtepxqRichard Lentz DO Work Phone: [facility]06-19-2025 14:53-0400Body mliuhj21.19 kgRichard Lentz DO Work Phone: [facility]06-19-2025 14:53-0400Diastolic blood ftzwpcas19 mm[Hg]Richard Lentz DO Work Phone: [facility]06-19-2025 14:53-0400Heart rate 50 /minSdonna Lentz DO Work Phone: [facility]06-19-2025 14:53-5036NcV5% (BldA) [Mass fraction]97 %Richard Lentz DO Work Phone: [facility]06-19-2025 14:53-0400Systolic blood wsawljnx693 mm[Hg]Richard Lentz DO Work Phone: [facility]06-11-2025 13:24-0400Body mass index (BMI) [Ratio]29.02 kg/m2Katyasa Heaton [employer]BER SOFTWARE ENGINEER Work Phone: [facility] HealthcareYknndptmwp67-19-9170 13:24-0400Body temperature 98.29 [degF]Jean-Claude Heaton CYBER SOFTWARE ENGINEER Work Phone: [facility] HealthcareZbwtpbzqqd67-50-1666 13:24-0400Body bmzkor60.56 kgLisa Bhargaviz CYBER SOFTWARE ENGINEER Work Phone: [facility] HealthcareRgwejdusxi93-01-1732 13:24-0400Diastolic blood nezoafud80 mm[Hg]Jean-Claude Florina CYBER SOFTWARE ENGINEER Work Phone: [facility] HealthcarePbbdaphhhy36-91-2255 13:24-0400Heart rate47 /min Jean-Claude Florina CYBER SOFTWARE ENGINEER Work Phone: [facility] HealthcareLbjmsskung81-34-0696 13:24-0400Respiratory rate18 /minJean-Claude Heaton CYBER SOFTWARE ENGINEER Work Phone: [facility] HealthcareNewabudhzn95-35-6095 13:24-8620CrK9% (BldA) [Mass fraction]97 %Jean-Claude Heaton CYBER SOFTWARE ENGINEER Work Phone: [facility] HealthcareTmflrilbir98-21-7033 13:24-0400Systolic blood mm[Hg]Jean-Claude Heaton CYBER SOFTWARE ENGINEER Work Phone: [facility] HealthcarePyzfivkzjx81-85-1769 12:49-0400Body .6 cmVrashida aBi MD Work Phone: [facility]06-05-2025 12:49-0400Body mass index (BMI) [Ratio]29.01 kg/w2IbxraLinette Bai MD Work Phone: [facility]06-05-2025 12:49-0400Body temperature 97.81 [degF]Linette Bai MD Work Phone: [facility]06-05-2025 12:49-0400Body .5 kgLinette Bai MD Work Phone: [facility]06-05-2025 12:49-0400Diastolic blood owpuuwxh94 mm[Hg]Linette Bai MD Work Phone: [facility]06-05-2025 12:49-0400Heart rate62 /min Linette Bai MD Work Phone: [facility]06-05-2025 12:49-0400Respiratory rate 16 /minLinette Bai MD Work Phone: [facility]06-05-2025 12:49-0042MmR8% (BldA) [Mass fraction]94 %Linette Bai MD Work Phone: [facility]06-05-2025 12:49-0400Systolic blood khbuzupf736 mm[Hg]Linette Bai MD Work Phone: [facility]04-24-2025 14:44-0400Body mass index (BMI) [Ratio]29.76 kg/m2Jean-Claude Nunujoblupe CYBER SOFTWARE ENGINEER Work Phone: [facility] HealthcareKnugdlfttn22-52-6054 14:44-0400Body temperature 98.49 [degF]Jean-Claude Burkatul CYBER SOFTWARE ENGINEER Work Phone: [facility] HealthcareZthvhahzcq24-56-1797 14:44-0400Body lwczeh22.64 kgLisa Bhargaviatul CYBER SOFTWARE ENGINEER Work Phone: [facility] HealthcareOlnlcjrfed09-02-7486 14:44-0400Diastolic blood hbcwodbg70 mm[Hg]Jean-Claude Burkatul CYBER SOFTWARE ENGINEER Work Phone: [facility] HealthcareEokuitzsjq77-04-2771 14:44-0400Heart rate57 /min Jean-Claude Bhargaviatul CYBER SOFTWARE ENGINEER Work Phone: [facility] HealthcareFezplnvsfp68-51-1096 14:44-0400Respiratory rate20 /minLisa Florina CYBER SOFTWARE ENGINEER Work Phone: [facility] HealthcareRbpqhuybgb66-07-5620 14:44-3789YnS1% (BldA) [Mass fraction]96 %Jean-Claude Heaton CYBER SOFTWARE ENGINEER Work Phone: [facility] HealthcareUbjmlgsvpp26-50-6970 14:44-0400Systolic blood jzfwjpvi658 mm[Hg]Jean-Claude Brukatul CYBER SOFTWARE ENGINEER Work Phone: [facility] HealthcareTzvdsgeurf06-55-9838 14:04-0500Body mass index (BMI) [Ratio]28.27 kg/f5StaxsLinette Bai MD Work Phone: [facility]03-06-2025 14:04-0500Body temperature 97 [degF]Linette Bai MD Work Phone: [facility]03-06-2025 14:04-0500Body .4 kgLinette Bai MD Work Phone: [facility]03-06-2025 14:04-0500Diastolic blood ayxmzlbg28 mm[Hg]Linette Bai MD Work Phone: [facility]03-06-2025 14:04-0500Heart rate59 /min Linette Bai MD Work Phone: [facility]03-06-2025 14:04-0500Respiratory rate 18 /minLinette Bai MD Work Phone: [facility]03-06-2025 14:04-7835RcN4% (BldA) [Mass fraction]97 %Linette Bai MD Work Phone: [facility]03-06-2025 14:04-0500Systolic blood wqgfchha583 mm[Hg]Linette Bai MD Work Phone: [facility]02-12-2025 13:42-0500Body height 1706.88 [facility] 13:42-0500Body mass index (BMI) [Ratio]0.2 kg/a6EdgqldauvGenesis Hospital02-12-2025 13:42-0500Body ovnmqr31.92 kgGen[facility]02-06-2025 13:26-0500Body height 167.6 cmSdonna Lentz DO Work Phone: [facility]02-06-2025 13:26-0500Body mass index (BMI) [Ratio]28.08 kg/x4UdbjphRichard Lentz DO Work Phone: [facility]02-06-2025 13:26-0500Body swecbh00.93 kgRichard Lentz DO Work Phone: [facility]02-06-2025 13:26-0500Diastolic blood ymqpqeoh54 mm[Hg]Richard Lentz DO Work Phone: [facility]02-06-2025 13:26-0500Heart rate 56 /minSdonna Tor LIEBERMAN Work Phone: [facility]02-06-2025 13:26-2613IxN1% (BldA) [Mass fraction]98 %Richard Lentz DO Work Phone: [facility]02-06-2025 13:26-0500Systolic blood kxzabchf756 mm[Hg]Richard Lentz DO Work Phone: [facility]01-09-2025 13:13-0500Body mass index (BMI) [Ratio]28.55 kg/r8XmzszLinette Bai MD Work Phone: [facility]01-09-2025 13:13-0500Body temperature 97.7 [degF]Linette Bai MD Work Phone: 1(953)1-[address] [place], [place] 8471401-09-2025 13:13-0500Body gyhtzu10.2 kgLinette Bai MD Work Phone: 1(328)[facility] [place], [place] [address]01-09-2025 13:13-0500Diastolic blood nihudqoq00 mm[Hg]Linette Bai MD Work Phone: 1(601)[facility] [place], [place] 8471401-09-2025 13:13-0500Heart rate56 /min Linette Bai MD Work Phone: 1(061)899-[address] [place], [place] [address]47[address]01-09-2025 13:13-0500Respiratory rate 18 /minLinette Bai MD Work Phone: [phone]01-09-2025 13:13-8054CoF2% (BldA) [Mass fraction]98 %Linette Bai MD Work Phone: [facility]01-09-2025 13:13-0500Systolic blood nuplkerz107 mm[Hg]Linette Bai MD Work Phone: [phone]01-08-2025 13:35-0500Body .6 cmJasen Vasques NP Work Phone: [facility] HealthcareCtuuadwhwe62-73-2603 13:35-0500Body mass index (BMI) [Ratio]28.89 kg/y4Wxgxdswh Vasques CYBER SOFTWARE ENGINEER Work Phone: [facility] HealthcareDdntwyrner87-93-7406 13:35-0500Body temperature 97.3 [degF]Jasen Vasques CYBER SOFTWARE ENGINEER Work Phone: [facility] HealthcareDtuhcfjlzw03-88-8472 13:35-0500Body igmlzv52.19 kgJasen Vasques CYBER SOFTWARE ENGINEER Work Phone: [facility] HealthcarePexgjyespy51-75-6854 13:35-0500Diastolic blood fcylelqm73 mm[Hg]Jasen Vasques CYBER SOFTWARE ENGINEER Work Phone: [facility] HealthcareQkrfdnwovo36-74-8193 13:35-0500Heart rate52 /min Jasen Vasques CYBER SOFTWARE ENGINEER Work Phone: [facility] HealthcareRqzvlwuafw36-92-3628 13:35-0500Respiratory rate22 /minBrosmani Vasques CYBER SOFTWARE ENGINEER Work Phone: [facility] HealthcareLeqeuwjcsx20-15-0163 13:35-5766UcD9% (BldA) [Mass fraction]97 %Jasen Vasques CYBER SOFTWARE ENGINEER Work Phone: [facility] HealthcareKohzwajhmi10-22-4963 13:35-0500Systolic blood vzbmhsay142 mm[Hg]Jasen Ibarrazpatrick CYBER SOFTWARE ENGINEER Work Phone: [facility] HealthcareTqmkceuvjr60-33-1891 11:14-0500Body zxwagj730.6 cmVrashida Bai MD Work Phone: [facility]11-20-2024 11:14-0500Body mass index (BMI) [Ratio]29.73 kg/c2FmjdzLinette Bai MD Work Phone: [facility]11-20-2024 11:14-0500Body temperature 97.81 [degF]Linette Bai MD Work Phone: [facility]11-20-2024 11:14-0500Body neipkc95.5 kgLinette Bai MD Work Phone: [facility]11-20-2024 11:14-0500Diastolic blood wdbnzwee29 mm[Hg]Linette Bai MD Work Phone: [facility]11-20-2024 11:14-0500Heart rate49 /min Linette Bai MD Work Phone: [facility]11-20-2024 11:14-0500Respiratory rate 16 /minLinette Bai MD Work Phone: [facility]11-20-2024 11:14-9763HyI4% (BldA) [Mass fraction]97 %Linette Bai MD Work Phone: [facility]11-20-2024 11:14-0500Systolic blood wwxpxotv264 mm[Hg]Linette Bai MD Work Phone: [facility]11-18-2024 14:06-0500Body ytjmpl003.64 cmGen[facility]11-18-2024 14:06-0500Body mass index (BMI) [Ratio]28.4 kg/x3DpaoblnkzGenesis Hospital11-18-2024 14:06-0500Body mvtnom39.83 kgGenesis Hospital09-30-2024 13:41-0400Body mass index (BMI) [Ratio]30.51 kg/b6Skvzfpoe Vasques CYBER SOFTWARE ENGINEER Work Phone: [facility] HealthcareLtqhyelohf54-72-1869 13:41-0400Body temperature 97.81 [degF]Jasen Vasques CYBER SOFTWARE ENGINEER Work Phone: [facility] CenterFiucbrwmfs41-35-9913 13:41-0400Body gddguk46.73 kgJasen Ibarrazpatrick CYBER SOFTWARE ENGINEER Work Phone: [facility] CenterPlncwrmohq76-70-1081 13:41-0400Diastolic blood bmxyhute18 mm[Hg]Jasen Ibarrazpatrick CYBER SOFTWARE ENGINEER Work Phone: [facility] HealthcareZcvvdhuonq55-51-1231 13:41-0400Heart rate55 /min Jasen Ibarrazpatrick CYBER SOFTWARE ENGINEER Work Phone: no[facility] CenterOhkcjasrey91-34-5650 13:41-6899TwH4% (BldA) [Mass fraction]97 %Jasen Vasques CYBER SOFTWARE ENGINEER Work Phone: [facility] CenterKfxehgcqyg54-71-9540 13:41-0400Systolic blood xndquvbi273 mm[Hg]Jasen Vasques CYBER SOFTWARE ENGINEER Work Phone: [facility] HealthcareThklvzzqaq54-16-3293 11:06-0400Body kodfki600.6 cmVrashida Bai MD Work Phone: [facility]08-15-2024 11:06-0400Body mass index (BMI) [Ratio]30.15 kg/e2PdrckLinette Bai MD Work Phone: [facility]08-15-2024 11:06-0400Body temperature 97.81 [degF]Linette Bai MD Work Phone: [facility]08-15-2024 11:06-0400Body wyrtgt44.7 kgLinette Bai MD Work Phone: [facility]08-15-2024 11:06-0400Diastolic blood zlampytr87 mm[Hg]Linette Bai MD Work Phone: [facility]08-15-2024 11:06-0400Heart rate56 /min Linette Bai MD Work Phone: [place] [address]-15-2024 11:06-0400Respiratory rate 16 /minLinette Bai MD Work Phone: [place] [address]-15-2024 11:06-7543NcL8% (BldA) [Mass fraction]96 %Linette Bai MD Work Phone: [facility]08-15-2024 11:06-0400Systolic blood oetyvoqo967 mm[Hg]Linette Bai MD Work Phone: [facility]06-28-2024 14:24-0400Body mass index (BMI) [Ratio]30 kg/p7QilgrLinette Bai MD Work Phone: [facility]06-28-2024 14:24-0400Body temperature 97 [degF]Linette Bai MD Work Phone: [facility]06-28-2024 14:24-0400Body jmzowg28.28 kgLinette Bai MD Work Phone: [facility]06-28-2024 14:24-0400Diastolic blood nclgzfoc02 mm[Hg]Linette Bai MD Work Phone: [facility]06-28-2024 14:24-0400Heart rate63 /min Linette Bai MD Work Phone: [facility]06-28-2024 14:24-0400Respiratory rate 18 /minLinette Bai MD Work Phone: [facility]06-28-2024 14:24-4033XlH5% (BldA) [Mass fraction]96 %Linette Bai MD Work Phone: [facility]06-28-2024 14:24-0400Systolic blood lpotuapd182 mm[Hg]Linette Bai MD Work Phone: [facility]03-15-2024 14:35-0400Body temperature 97 [degF]Linette Bai MD Work Phone: [facility]03-15-2024 14:35-0400Body xtraxb63.3 kgLinette Bai MD Work Phone: [facility]03-15-2024 14:35-0400Diastolic blood yikwutpp47 mm[Hg]Linette Bai MD Work Phone: [facility]03-15-2024 14:35-0400Heart rate55 /min Linette Bai MD Work Phone: [facility]03-15-2024 14:35-0400Respiratory rate 18 /minLinette Bai MD Work Phone: [facility]03-15-2024 14:35-1096KzU4% (BldA) [Mass fraction]97 %Linette Bai MD Work Phone: [facility]03-15-2024 14:35-0400Systolic blood qjhwnerk915 mm[Hg]Linette Bai MD Work Phone: [facility]12-11-2023 09:00-0500Body otscvh942.64 cmRwhitney Kernsner Other [employer] Other 12-11-2023 09:00-0500Body mass index (BMI) [Ratio]31.1 kg/m2Ryaddison Scovanner Other [facility] [employer] Other 12-11-2023 09:00-0500Body .41 kgRyaddison Scovanner Other [employer] Other 12-11-2023 09:00-0500Diastolic blood elvmxnvy01 mm[Hg] Tavo Hull Other [employer] Other 12-11-2023 09:00-0500Systolic blood fscozply237 mm[Hg] Tavo Scovanner Other [employer] Other 12-08-2023 14:23-0500Body lhsgauolhlf06.39 [degF]Linette Bai MD Work Phone: [facility]12-08-2023 14:23-0500Body ryoubu55.91 kgLinette Bai MD Work Phone: [facility]12-08-2023 14:23-0500Diastolic blood bwfrulec37 mm[Hg]Linette Bai MD Work Phone: [facility]12-08-2023 14:23-0500Heart rate59 /min Linette Bai MD Work Phone: [facility]12-08-2023 14:23-0500Respiratory rate 16 /minLinette Bai MD Work Phone: [facility]12-08-2023 14:23-6381KpI3% (BldA) [Mass fraction]94 %Linette Bai MD Work Phone: [facility]12-08-2023 14:23-0500Systolic blood xkcupfns291 mm[Hg]Linette Bai MD Work Phone: [facility]09-26-2023 14:05-0400Diastolic blood onzjbidr76 mm[Hg]MD Shaikh Etienne Work Phone: [facility]09-26-2023 14:05-0400 Heart rate56 /minMD Shaikh Etienne Work Phone: 1(049)825-[facility]09-26-2023 14:05-0400 Respiratory rate18 /minMD Shaikh Etienne Work Phone: [facility]09-26-2023 14:05-0400 SaO2% (BldA) [Mass fraction]96 %MD Shaikh Etienne Work Phone: [facility]09-26-2023 14:05-0400 Systolic blood yjcoxbqz355 mm[Hg]MD Shaikh Etienne Work Phone: [facility]09-26-2023 12:53-0400 Body .64 cmMD Shaikh Etienne Work Phone: [facility]09-26-2023 12:53-0400 Body iotggk55.55 kgMD Shaikh Michaelaviva Work Phone: [facility]09-01-2023 14:04-0400 Body jppdip387.6 Ilya Bai MD Work Phone: [facility]09-01-2023 14:04-0400Body temperature 97.59 [degF]Linette Bai MD Work Phone: [facility]09-01-2023 14:04-0400Body ozmvns44.56 kgLinette Bai MD Work Phone: [facility]09-01-2023 14:04-0400Diastolic blood mm[Hg]Linette Bai MD Work Phone: [facility]09-01-2023 14:04-0400Heart rate57 /min Linette Bai MD Work Phone: [facility]09-01-2023 14:04-0400Respiratory rate 16 /minLinette Bai MD Work Phone: [facility]09-01-2023 14:04-3010RpF3% (BldA) [Mass fraction]98 %Linette Bai MD Work Phone: [facility]09-01-2023 14:04-0400Systolic blood tccdihrb125 mm[Hg]Linette Bai MD Work Phone: [facility]06-30-2023 13:40-0400Body qitvyd835.6 Ilya Bai MD Work Phone: [facility]06-30-2023 13:40-0400Body temperature 97.59 [degF]Linette Bai MD Work Phone: [facility]06-30-2023 13:40-0400Body udcihd93.64 kgLinette Bai MD Work Phone: [facility]06-30-2023 13:40-0400Diastolic blood mklhxanl81 mm[Hg]Linette Bai MD Work Phone: [facility]06-30-2023 13:40-0400Heart rate61 /min Linette Bai MD Work Phone: [facility]06-30-2023 13:40-0400Respiratory rate 16 /minLinette Bai MD Work Phone: [facility]06-30-2023 13:40-0838OlF5% (BldA) [Mass fraction]96 %Linette Bai MD Work Phone: [facility]06-30-2023 13:40-0400Systolic blood mm[Hg]Linette Bai MD Work Phone: [facility]05-03-2023 13:43-0400Body rrudni443.6 cmVrashida Bai MD Work Phone: [facility]05-03-2023 13:43-0400Body temperature 97.5 [degF]Linette Bai MD Work Phone: [facility]05-03-2023 13:43-0400Body gewnfx24.46 kgLinette Bai MD Work Phone: [facility]05-03-2023 13:43-0400Diastolic blood prybcnhf82 mm[Hg]Linette Bai MD Work Phone: [facility]05-03-2023 13:43-0400Heart rate59 /min Linette Bai MD Work Phone: [facility]05-03-2023 13:43-0400Respiratory rate 16 /minLinette Bai MD Work Phone: [facility]05-03-2023 13:43-6471RnB3% (BldA) [Mass fraction]98 %Linette Bai MD Work Phone: [facility]05-03-2023 13:43-0400Systolic blood swbdezag005 mm[Hg]Linette Bai MD Work Phone: [facility]02-03-2023 15:18-0500Body .6 Ilya Bai MD Work Phone: [facility]02-03-2023 15:18-0500Body temperature 97.81 [degF]Linette Bai MD Work Phone: [facility]02-03-2023 15:18-0500Body cciqrl43.46 kgLinette Bai MD Work Phone: [facility]02-03-2023 15:18-0500Diastolic blood ronsknuy69 mm[Hg]Linette Bai MD Work Phone: [facility]02-03-2023 15:18-0500Heart rate52 /min Linette Bai MD Work Phone: [facility]02-03-2023 15:18-0500Respiratory rate 16 /minLinette Bai MD Work Phone: [facility]02-03-2023 15:18-0210MiI1% (BldA) [Mass fraction]100 %Linette Bai MD Work Phone: [facility]02-03-2023 15:18-0500Systolic blood nudkwwpt343 mm[Hg]Linette Bai MD Work Phone: [facility]11-17-2022 13:46-0500Body .6 Ilya Bai MD Work Phone: [facility]11-17-2022 13:46-0500Body temperature 97.11 [degF]Linette Bai MD Work Phone: [facility]11-17-2022 13:46-0500Body edkyps79.91 kgLinette Bai MD Work Phone: [facility]11-17-2022 13:46-0500Diastolic blood kruuivcl32 mm[Hg]Linette Bai MD Work Phone: [facility]11-17-2022 13:46-0500Heart rate57 /min Linette Bai MD Work Phone: [facility]11-17-2022 13:46-0500Respiratory rate 16 /minLinette Bai MD Work Phone: [facility]11-17-2022 13:46-8056RsM9% (BldA) [Mass fraction]96 %Linette Bai MD Work Phone: [facility]11-17-2022 13:46-0500Systolic blood ovsejlhy677 mm[Hg]Linette Bai MD Work Phone: [facility]08-15-2022 11:11-0400Diastolic blood gvubujeg54 mm[Hg]MD Shaikh Etienne Work Phone: [facility]08-15-2022 11:11-0400 Heart rate51 /minMD Shaikh Etienne Work Phone: [facility]08-15-2022 11:11-0400 Respiratory rate18 /minMD Shaikh Etienne Work Phone: [facility]08-15-2022 11:11-0400 SaO2% (BldA) [Mass fraction]98 %MD Shaikh Etienne Work Phone: [facility]08-15-2022 11:11-0400 Systolic blood exrawtjt383 mm[Hg]MD Shaikh Etienne Work Phone: [facility]08-15-2022 09:13-0400 Body ulvdkq898.18 cmMD Shaikh Etienne Work Phone: [facility]08-15-2022 09:13-0400 Body mvdqabhqlvb21.5 [degF]MD Shaikh Etienne Work Phone: [facility]08-15-2022 09:13-0400 Body msfbmi70.11 kgMD Shaikh Lowell Work Phone: [facility]07-28-2022 13:44-0400 Body qprwsi026.7 cmVrashida Bai MD Work Phone: [facility]07-28-2022 13:44-0400Body temperature 97.81 [degF]Linette Bai MD Work Phone: [facility]07-28-2022 13:44-0400Body hefypn06.19 kgLinette Bai MD Work Phone: [facility]07-28-2022 13:44-0400Diastolic blood cwqyatjr53 mm[Hg]Linette Bai MD Work Phone: [facility]07-28-2022 13:44-0400Heart rate52 /min Linette Bai MD Work Phone: [facility]07-28-2022 13:44-0400Respiratory rate 16 /minLinette Bai MD Work Phone: [facility]07-28-2022 13:44-4824CqW1% (BldA) [Mass fraction]98 %Linette Bai MD Work Phone: [facility]07-28-2022 13:44-0400Systolic blood rgbpustj675 mm[Hg]Linette Bai MD Work Phone: [facility]05-04-2022 11:00-0400Body djetun752.7 cmPacc 3 Work Phone: [facility]05-04-2022 11:00-0400Body temperature 97.7 [degF]Pacc 3 Work Phone: [facility]05-04-2022 11:00-0400Body .47 kgPacc 3 Work Phone: [facility]05-04-2022 11:00-0400Diastolic blood pzyhwkka85 mm[Hg]Pacc 3 Work Phone: [facility]05-04-2022 11:00-0400Heart rate57 /min Pacc 3 Work Phone: [phone]05-04-2022 11:00-0400Respiratory rate 20 /minPacc 3 Work Phone: [phone]05-04-2022 11:00-2873CiZ3% (BldA) [Mass fraction]97 %Pacc 3 Work Phone: [facility]05-04-2022 11:00-0400Systolic blood sejtovqz410 mm[Hg]Pacc 3 Work Phone: [facility] Encounters Encounter DateEncounter TypeCare ProviderFacilityStart: 07-10-2025 End: 76-86-1656nufofejpmlDzobdd Fawwad MD Work Phone: [facility]: [facility] End: 75-54-6983Mfshthcq ReferredJean-Claude Heaton NP-C-Lab [facility] Work Phone: Start: 07-10-2025 End: 53-12-0707ecbvcuzeoyYxogzy Fawwad MD Work Phone: -[facility] CleStart: 07-10-2025 End: 92-81-6630Dkvhxmt encounter Tonio Heaton NP-C-[facility] [place] Work Phone: Start: 06-27-2025 End: 22-92-8244voylfpmkoqYTXLCS FAWWADFacility:[facility]: 13-41-6737tyynrzhhsjFXKJJD FAWWADFacility:[facility]art: 06-09-2025 End: 74-17-1225zmxpeaqawhXTCELGBrown Memorial Hospital Start: 05-29-2025 End: 84-30-4424Hbqlsi outpatient visit 25 minutesRichard Lentz DO Work Phone: [facility] Pulmonary/Sleep MedicineComment on above:Lung nodules (Primary Dx); Dyspnea on exertion; Smoker; Centrilobular emphysema ([facility]-HCC)Start: 05-29-2025 End: 91-72-0534dxxfczdbwqOVZRNM M [facility] Ambulatory PPGStart: 05-28-2025 End: 30-85-5316dxhwmpixvoJrxzgi Fawwad MD Work Phone: [facility] Work Phone: Start: 05-28-2025 End: 20-17-2086Boupkwu encounter Tonio Heaton CYBER SOFTWARE ENGINEER-C-[facility] Work Phone: Start: 05-08-2025 End: 79-82-5529Czmemlc encounter procedureGlenna Ramirez APRN.CONTACT CENTER CONSULTANT Work Phone: Hematology/OncologyStart: 05-08-2025 End: 51-70-2424fsdvjcumwtRgxdg Terrie Dodson Work Phone: Hematology/OncologyComment on above:Cancer of trachea, bronchus, and lung (HCC) (Primary Dx)Malignant neoplasm of unspecified part of unspecified bronchus or lung (HCC) (Primary Dx); Fall (on) (from) unspecified stairs and steps, subsequent encounter; Multiple fractures of ribs, left side, subsequent encounter for fracture with routine healing; Pain in thoracic spineStart: 05-08-2025 End: 02-21-2687Rmynzftkr encounterGlenna Ramirez APRN.CONTACT CENTER CONSULTANT Work Phone: Cancer Appts MCComment on above:FYI-No Action Needed Refill RequestStart: 05-06-2025 End: 67-97-0574Palnap outpatient visit 15 minutesMac Robins MD Work Phone: [facility] Orthopedics/Trauma and Adult ReconstructionComment on above:Closed displaced fracture of coracoid process of left shoulder with routine healing, subsequent encounter (Primary Dx)Start: 05-06-2025 End: 67-95-1335jtdatewwoiGGRBRJV M [facility]: 05-03-2025 End: 79-22-7161nzbgaxpmwcSmxef CancellK[facility] Call CenterStart: 05-03-2025 End: 49-36-2331Uaabvslux encounterBetty CancellKaiser Fremont [facility] Call Center Comment on above:Medication ProblemStart: 04-22-2025 End: 76-43-4902Jjdzetpcf encounterLinette Bai MD Work Phone: Cancer Appts MCComment on above:Patient UpdateStart: 04-21-2025 End: 40-03-7586Qgpnolgqw encounterJean-Claude EASTON Work Phone: [facility] Pulmonary/Sleep MedicineStart: 04-14-2025 End: 17-88-8284Iifdbztysk and management of inpatientJouzma Aguilar MD Work Phone: [facility] - GEN 2 AcuteStart: 30-03-7658onnpednbcfJNJIQNIndiana [facility] Ambulatory PPGStart: 04-11-2025 End: 81-80-5603Cyctndxmp Result EncounterGeneric External Data ProviderNOMS External Department UnsolicitedStart: 04-11-2025 End: 54-62-2842Nihkvjqal Result EncounterGeneric External Data ProviderNOMS External Department UnsolicitedStart: 04-07-2025 End: 61-27-9438GpbeeoZqil Aichholz NP Work Phone: NOIL CW FMComment on above:Mild episode of recurrent major depressive disorderStart: 03-31-2025 End: 34-54-8593legkngtjnfWAQWHA MOUKAPremier Health [facility] Start: 03-27-2025 End: 30-60-0454Wsicdpckp encounterLinette Bai MD Work Phone: Hematology/OncologyComment on above:OrdersStart: 03-09-2025 End: 83-61-8460AndlucRlpa Naderer MD Work Phone: noms CWM FMComment on above:HypokalemiaStart: 02-21-2025 End: 75-18-4587Fkgacblwn Result EncounterGeneric External Data ProviderNOMS External Department UnsolicitedStart: 02-21-2025 End: 41-97-5012Kxobebxdw Result EncounterGeneric External Data ProviderNOMS External Department UnsolicitedStart: 02-20-2025 End: 20-90-8796iphohjebhxTVOGTPMethod[facility] Ambulatory PPGStart: 02-20-2025 End: 01-18-1588Xsxetc outpatient visit 15 minutesRichard [facility] Work Phone: [facility] Pulmonary/Sleep MedicineComment on above:Chronic obstructive pulmonary disease, unspecified COPD type ([facility]-HCC) (Primary Dx); Lung nodules; SmokerStart: 02-20-2025 End: 26-34-9590xbsqugtzsySQLYCAAlta Bates Summit Medical Centertart: 02-12-2025 End: 00-25-7292Yontvm flowsheetLisa Aichdickz CYBER SOFTWARE ENGINEER Work Phone: noms CWM FMStart: 02-12-2025 End: 13-86-9430Emcypx flowsheetLisa Aichholz CYBER SOFTWARE ENGINEER Work Phone: noms CWM FMStart: 02-12-2025 End: 90-86-0380Khmtaqb encounter procedureLisa Nunuhholz CYBER SOFTWARE ENGINEER Work Phone: noms CWM FMComment on above:Medicare annual wellness visit, subsequent (Primary Dx); Tobacco dependence; Mild episode of recurrent major depressive disorder (HCC) (CMS/HCC); Primary hypertension (CMS/HCC); Adenocarcinoma of right lung (CMS/HCC)Start: 02-12-2025 End: 65-55-0890epmxuhlwmwGCKW AICHHOLZNot AvailableStart: 02-10-2025 End: 66-87-6500LpnincLnwc Aichholz NP Work Phone: noms CWM FMComment on above:Mild episode of recurrent major depressive disorder (HCC) (CMS/HCC); 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)Start: 02-06-2025 End: 84-83-5699Dxzwlj outpatient visit 25 minutesLinette Bai MD Work Phone: Hematology/OncologyComment on above:Malignant neoplasm of upper lobe of right lung (HCC) (Primary Dx); Non-caseating granuloma; Lung nodules; Tobacco use disorder; Megaloblastic anemia due to vitamin B12 deficiency; Malignant neoplasm of unspecified part of unspecified bronchus or lung (HCC); Nicotine dependence, cigarettes, uncomplicated; Other vitamin B12 deficiency anemia; Encounter for follow-up examination after completed treatment for conditions other than malignant neoplasm; Generalized abdominal painStart: 02-06-2025 End: 03-04-0935ozvwusqqdmZNCRP ABHYANKARFacility:[facility] Hospitaltart: 01-30-2025 End: 43-16-9310Odnmfffqs Result EncounterGeneric External Data ProviderNOCA External Department UnsolicitedStart: 01-30-2025 End: 27-99-1397Luegoponf Result EncounterGeneric External Data ProviderNOCA External Department UnsolicitedStart: 00-32-8498rayycuijjkRUQDL ABHYANKAR Facility:[facility]: 01-30-2025 End: 39-52-4192Cnbyqodynl hospital visit by physicianArrival Time Radiology Work Phone: Radiology Pet CTComment on above:Malignant neoplasm of upper lobe of right lung (HCC) [C34.11]Start: 01-14-2025 End: 58-01-7979IgusvaVdse Naderer MD Work Phone: noms CWM FMComment on above: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)Start: 01-13-2025 End: 10-54-3513ZdmsneXebp Naderer MD Work Phone: noms CWM FMComment on above: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)Start: 01-03-2025 End: 86-61-3767YbjzjmQpot Aichholz CYBER SOFTWARE ENGINEER Work Phone: noms CWM FMComment on above:Mild episode of recurrent major depressive disorder (HCC) (CMS/HCC) (Primary Dx)Start: 12-26-2024 End: 49-12-3421Vdqabe outpatient visit 25 minutesLi Florina CYBER SOFTWARE ENGINEER Work Phone: noms CWM FMComment on above:Mild episode of recurrent major depressive disorder (HCC) (CMS/HCC) (Primary Dx); Adenocarcinoma of right lung (CMS/HCC); Chronic systolic (congestive) heart failure; Primary hypertension (CMS/HCC); Male erectile dysfunction, unspecified; Tobacco dependenceStart: 12-26-2024 End: 66-48-7148mojgcknxtfYPLF AICHHOLZNot AvailableStart: 12-26-2024 End: 01-31-0793Hzegaq flowsheetJean-Claude Rennylupe CYBER SOFTWARE ENGINEER Work Phone: noms CW FMStart: 12-26-2024 End: 61-86-4617Pkoqwe sheilaJean-Claude Rennylupe CYBER SOFTWARE ENGINEER Work Phone: noms [facility] FMStart: 11-07-2024 End: 88-73-4744Yvfnbcqdn Result EncounterGeneric External Data ProviderNOMS External Department UnsolicitedStart: 11-07-2024 End: 69-38-5421Euphffryr Result EncounterGeneric External Data ProviderNOMS External Department UnsolicitedStart: 11-07-2024 End: 57-02-4529Qcjvza outpatient visit 25 minutesLinette Bai MD Work Phone: Hematology/OncologyComment on above:Malignant neoplasm of upper lobe of right lung (HCC) (Primary Dx); Non-caseating granuloma; Abnormal finding on GI tract imaging; Anemia, unspecified typeStart: 11-07-2024 End: 11-46-5813Nfryrmsee encounterLinette Bai MD Work Phone: Cancer Appts MCComment on above:ResultsStart: 11-07-2024 End: 97-04-4291jaqaqoagcxLDFJH ABHYANKARFacility:[facility] Hospitaltart: 11-07-2024 End: 54-10-6081Wvixegmeoq hospital visit by physicianArrival Time Radiology Work Phone: Radiology Pet CTComment on above:Malignant neoplasm of upper lobe of right lung (HCC) [C34.11]Start: 10-16-2024 End: 79-96-6932vxtlnybtexRoodcstbnSt. 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)Start: 10-10-2024 End: 30-54-5056Geoyko outpatient visit 25 minutesRichard Erazo ElsCedar City Hospital Work Phone: [facility] Pulmonary/Sleep MedicineComment on above:Chronic obstructive pulmonary disease, unspecified COPD type (CMS-HCC) (Primary Dx); Cancer of trachea, bronchus, and lung (CMS-HCC); SmokerStart: 10-10-2024 End: 76-30-1630yjrgmsgtnkDPBREFSpringhill Medical Center Ambulatory PPGStart: 10-01-2024 End: 15-60-1375DxfcnjHkchDylan PAGAN CWM FMComment on above:Male erectile dysfunction, unspecifiedStart: 09-27-2024 End: 78-87-4807EipracIiwlzzgoDexter Vasques NP Work Phone: NOAB CWM FMComment on above:Male erectile dysfunction, unspecifiedStart: 09-18-2024 End: 45-69-6628Gsigwkear encounterAdenike Rosas RNHematology/OncologyComment on above:ResultsStart: 09-13-2024 End: 98-26-5633Jqcabizft Result EncounterBrosmani IbarraVasques CYBER SOFTWARE ENGINEER Work Phone: noms External Department UnsolicitedStart: 09-13-2024 End: 24-97-1743Mwqeogmjb Result EncounterBrosmani Vasques CYBER SOFTWARE ENGINEER Work Phone: noms External Department UnsolicitedStart: 09-13-2024 End: 29-89-2328PgroqlRldedm M Elston DO Work Phone: [facility] Pulmonary/Sleep MedicineComment on above:Chronic obstructive pulmonary disease, unspecified COPD type (CMS-HCC) Hypokalemia; Chronic obstructive pulmonary disease, unspecified (CMS/HCC)Start: 09-12-2024 End: 36-60-3628Rdtuqlslm Result EncounterGeneric External Data ProviderNOMS External Department UnsolicitedStart: 09-12-2024 End: 12-23-5250Mixpzbaii Result EncounterGeneric External Data ProviderNOMS External Department UnsolicitedStart: 09-12-2024 End: 13-25-8163Lnabduoha encounterLinette Bai MD Work Phone: Cancer Appts MCComment on above:ResultsStart: 09-12-2024 End: 78-92-3636Fxartk outpatient visit 25 minutesLinette Bai MD Work Phone: Hematology/OncologyComment on above:Malignant neoplasm of upper lobe of right lung (HCC) (Primary Dx); Malignant neoplasm of unspecified part of unspecified bronchus or lung (HCC); Lung nodules; Non-caseating granuloma; Malignant neoplasm of overlapping sites of right lung (HCC)Start: 09-12-2024 End: 60-88-4082wqyrbowimgMNICT ABHYANKARFacility:[facility] Hospitaltart: 09-12-2024 End: 56-15-5506Pffmkzcctn hospital visit by physicianArrival Time Radiology Work Phone: Radiology Pet CTComment on above:Malignant neoplasm of unspecified part of unspecified bronchus or lung (HCC) [C34.90]Start: 09-11-2024 End: 58-73-5699Rfxmro flowsheetJasen Vasques CYBER SOFTWARE ENGINEER Work Phone: noms CWM FMStart: 09-11-2024 End: 17-24-7978Njjrcs flowsheetBrosmani Perazak CYBER SOFTWARE ENGINEER Work Phone: noms CWM FMStart: 09-11-2024 End: 87-35-6345Ycsqom outpatient visit 15 minutesBrloydajayant Vasques CYBER SOFTWARE ENGINEER Work Phone: noms CWM FMComment on above:Hyperlipidemia, unspecified hyperlipidemia type (CMS/HCC) (Primary Dx); Panlobular emphysema (CMS/HCC); Depression, unspecified (CMS/HCC); Primary hypertension (CMS/HCC)Start: 09-11-2024 End: 39-94-5315ucycbyijhvLKJDNJMU FITZGÓMEZTRICCOLETTEot AvailableStart: 08-15-2024 End: 31-30-3216Sflvkhvso encounterSdonna Lentz DO Work Phone: [facility] Pulmonary/Sleep MedicineStart: 08-06-2024 End: 63-50-1116OxgyxtTmamRodrick PAGAN CWM FMComment on above:Heart failure, unspecified (CMS/HCC)Start: 07-24-2024 End: 14-19-8888jhwmktebjcYGZFAQ DARIUSZWWADFacility:[facility] Hospitaltart: 07-24-2024 End: 81-98-1062Xfjxwg outpatient visit 25 minutesLinette Bai MD Work Phone: Hematology/OncologyComment on above:Malignant neoplasm of unspecified part of unspecified bronchus or lung (HCC) (Primary Dx); Abnormal finding on GI tract imaging; Lung nodules; Non-caseating granulomaStart: 07-22-2024 End: 21-28-8649Mfgjudn encounter procedureFirwarren memorial hospital Physician GroupSsm [facility] Work Phone: Start: 07-19-2024 End: 24-48-4707Ftiuciscl Result EncounterGeneric External Data ProviderNOMS External Department UnsolicitedStart: 07-19-2024 End: 16-49-1478Yplosvdzh Result EncounterGeneric External Data ProviderNOCA External Department UnsolicitedStart: 07-19-2024 End: 08-49-6485suarstbzuuNLYGHX FAWWADFacility:[facility] Hospitaltart: 07-19-2024 End: 02-93-3513Sgfyepyipz hospital visit by physicianArrival Time Radiology Work Phone: Radiology Pet CTComment on above:Malignant neoplasm of unspecified part of unspecified bronchus or lung (HCC) [C34.90]Start: 06-14-2024 End: 28-76-7129EnafksCiwashxl Vasques CYBER SOFTWARE ENGINEER Work Phone: [facility]OS[facility] CWM FMComment on above:Depression, unspecified (CMS/HCC)Start: 06-05-2024 End: 79-19-5119KdcfubGexljaek Vasques CYBER SOFTWARE ENGINEER Work Phone: noms CWM FMComment on above:Hypokalemia; Essential (primary) hypertension (CMS/HCC)Start: 06-03-2024 End: 45-91-3172Twbkfl flowsheetBrittany Vasques CYBER SOFTWARE ENGINEER Work Phone: NOMS CWM FMStart: 06-03-2024 End: 03-31-6876Yklcko flowsheetBrittany Vasques CYBER SOFTWARE ENGINEER Work Phone: noms CWM FMStart: 06-03-2024 End: 60-75-8359Fknucl outpatient visit 15 minutesBrittany Vasques CYBER SOFTWARE ENGINEER Work Phone: noms CWM FMComment on above:Primary hypertension (CMS/HCC) (Primary Dx); Hyperlipidemia, unspecified hyperlipidemia type (CMS/HCC); Chronic idiopathic constipation; Panlobular emphysema (CMS/HCC)Start: 06-03-2024 End: 79-42-8092tlpsikvhjoCDFAGVOA FITZPATRICKNot AvailableStart: 05-21-2024 End: 48-93-2063IyvnpdEanzfy Garvin MANOMS CWM IMComment on above:Chronic obstructive pulmonary disease, unspecified (CMS/HCC)Start: 05-15-2024 End: 05-48-0797PqogzvMkqrqf Garvin MANOMS CWM IMComment on above:Chronic idiopathic constipationStart: 05-14-2024 End: 80-13-7285PivponYdawbyloScott Vasques NP Work Phone: noms CWM FMComment on above:HypokalemiaStart: 04-18-2024 End: 16-50-8123Xyudescdy Result EncounterGeneric External Data ProviderNOMS External Department UnsolicitedStart: 04-18-2024 End: 60-71-1087Rkmmtdjll Result EncounterGeneric External Data ProviderNOMS External Department UnsolicitedStart: 26-34-6091Xflxcfytk encounterLinette Bai MD Work Phone: Hematology/OncologyComment on above:OrdersResults Start: 04-18-2024 End: 92-83-6129Bbvgjf outpatient visit 25 minutesLinette Bai MD Work Phone: Hematology/OncologyComment on above:Malignant neoplasm of unspecified part of unspecified bronchus or lung (HCC) (Primary Dx); Abnormal finding on GI tract imaging; Malignant neoplasm of lung, unspecified laterality, unspecified part of lung (HCC)Start: 04-18-2024 End: 99-34-0517Dzvxnsulsx hospital visit by physicianArrival Time Radiology Work Phone: Radiology Pet CTComment on above:Lung nodules [R91.8] Start: 03-22-2024 End: 88-66-1878Qonlyumap Result EncounterGeneric External Data ProviderNOMS External Department UnsolicitedStart: 03-22-2024 End: 15-64-4755Alpigrtis Result EncounterGeneric External Data ProviderNOMS External Department UnsolicitedStart: 03-01-2024 End: 84-26-3325Bunrxv outpatient visit 25 minutesLinette Bai MD Work Phone: Hematology/OncologyComment on above:Lung nodules (Primary Dx); Malignant neoplasm of unspecified part of unspecified bronchus or lung (HCC) Start: 02-27-2024 End: 82-73-5186Urfsmgxxo Result EncounterSvandana Etienne MD Work Phone: noms External Department UnsolicitedStart: 02-27-2024 End: 43-87-5691Ldqnkiaaj Result EncounterSvandana Etienne MD Work Phone: noms External Department UnsolicitedStart: 02-26-2024 End: 13-43-8718ydiqmusjdqJJOAFV FAWWADNot AvailableStart: 02-23-2024 End: 96-76-1173Rwtcuruak Result EncounterGeneric External Data ProviderNOMS External Department UnsolicitedStart: 02-23-2024 End: 46-95-9069Htxflhdzq Result EncounterGeneric External Data ProviderNOMS External Department UnsolicitedStart: 02-23-2024 End: 21-64-4802Rdpwbzczdh hospital visit by physicianArrival Time Radiology Work Phone: Radiology Pet CTComment on above:Lower abdominal pain [R10.30]Start: 01-01-2024 End: 37-04-5062Tnksgqiuv Result Laith Etienne MD Work Phone: noms External Department UnsolicitedStart: 01-01-2024 End: 36-97-3703Ybmdwfaqv Result EncounterSvandana Etienne MD Work Phone: noms External Department UnsolicitedStart: 11-20-2023 [facility] Centersirisha [facility] Work Phone: Hematology/OncologyStart: 11-17-2023 End: 55-67-9462Esaawl outpatient visit 25 minutesLinette Bai MD Work Phone: Hematology/OncologyComment on above:Lower abdominal pain (Primary Dx); Malignant neoplasm of upper lobe of right lung (HCC)Start: 96-51-1685Oluijgeyt encounterAdenike Rosas RNHematology/OncologyComment on above:ResultsStart: 11-10-2023 End: 24-06-1587Anlnfwhrp Result EncounterGeneric External Data ProviderNOMS External Department UnsolicitedStart: 11-10-2023 End: 64-78-2720Lnerfrbsn Result EncounterGeneric External Data ProviderNOCA External Department UnsolicitedStart: 11-10-2023 End: 49-32-8495Tuqjxbqwyb hospital visit by physicianArrival Time Radiology Work Phone: Radiology Pet CTComment on above:Malignant neoplasm of unspecified part of unspecified bronchus or lung (HCC) [C34.90]Start: 45-47-6923ErwljoRtysfo Fawwad MD Work Phone: noms [facility] FMComment on above: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)Start: 39-30-4100Etortpv encounter procedureSvandana Etienne MD Work Phone: NOCA HealthcareStart: 06-24-2429Jviimlapt encounter Livier Yaneth RNProMedica Physicians Pulmonary/Sleep MedicineStart: 08-14-2023 End: 82-63-7395sxcaeosksbBzxc [employer] Other [facility] [employer] Other Start: 20-11-2059Gsoogi outpatient visit 15 minutes Tavo Arita GastroenterologyStart: 08-11-2023 End: 97-78-5869Rmsmoo outpatient visit 25 minutesLinette Bai MD Work Phone: Hematology/OncologyComment on above:Malignant neoplasm of unspecified part of unspecified bronchus or lung (HCC) (Primary Dx)Start: 40-82-7371Fnswxzapl encounterFesanford Villarreal RNHematology/OncologyComment on above:OrdersStart: 08-04-2023 End: 17-01-8670Lcjzicgrou hospital visit by physicianArrival Time Radiology Work Phone: Radiology Pet CTComment on above:Abnormal finding on GI tract imaging [R93.3]Start: 05-30-2023 End: 58-91-2438Nvorixcne to same day surgery centerMD Shaikh Etienne Work Phone: [facility] Work Phone: Start: 05-30-2023 End: 82-52-5547wlsekayiuxBV Shaikh Fawwad Work Phone: [facility] Work Phone: Start: 05-05-2023 End: 88-44-5693Rqafko outpatient visit 25 minutesLinette Bai MD Work Phone: Hematology/OncologyComment on above:Abnormal finding on GI tract imaging (Primary Dx); Malignant neoplasm of unspecified part of unspecified bronchus or lung (HCC) Start: 32-52-9578Hpyblurfc encounterLinette Bai MD Work Phone: Cancer Appts MCComment on above:Referral Information (GI)Start: 04-28-2023 End: 56-05-7369Bytfdokhqh hospital visit by physicianArrival Time Radiology Work Phone: Radiology Pet CTComment on above:Malignant neoplasm of unspecified part of unspecified bronchus or lung (HCC) [C34.90]Start: 03-03-2023 End: 47-52-1677Nihroz outpatient visit 25 minutesLinette Bai MD Work Phone: Hematology/OncologyComment on above:Malignant neoplasm of unspecified part of unspecified bronchus or lung (HCC) (Primary Dx); Lung nodulesStart: 02-21-2023 End: 31-50-9448Cmrrdnbkwo hospital visit by physicianArrival Time Radiology Work Phone: Radiology Pet CTComment on above:Malignant neoplasm of unspecified part of unspecified bronchus or lung (HCC) [C34.90]Start: 01-06-2023 End: 68-31-6534npmlwzeuqcXGWQRB Job FAWWADFacility:X5Yinxh: 01-04-2023 End: 25-03-4272Dwzayn outpatient visit 25 minutesLinette Bai MD Work Phone: Hematology/OncologyComment on above:Malignant neoplasm of unspecified part of unspecified bronchus or lung (HCC) (Primary Dx)Start: 01-04-2023 End: 02-99-6971Rshyuhxfrk hospital visit by physicianArrival Time Radiology Work Phone: Radiology Pet CTComment on above:Malignant neoplasm of unspecified part of unspecified bronchus or lung (HCC) [C34.90]Start: 76-17-0030Scdqxkqpv encounterLinette Bai MD Work Phone: Cancer Appts MCComment on above:Appointment ConfirmationStart: 11-22-2022 End: 55-44-2581nltswtjiysRvnio Abhyankar MD Work Phone: Hematology/OncologyComment on above:Malignant neoplasm of unspecified part of unspecified bronchus or lung (HCC) (Primary Dx); Lung nodules; Positive TB test; Non-caseating granulomaStart: 11-22-2022 End: 19-64-6762Iufmdtrmzrfs consultation with patientLinette Bai MD Work Phone: SANDUSKYStart: 81-79-3445Ckycjxdmq Saba Bai MD Work Phone: Hematology/OncologyComment on above:Records faxed Start: 10-07-2022 End: 56-38-1049Vqtwny outpatient visit 25 minutesLinette Bai MD Work Phone: Hematology/OncologyComment on above:Malignant neoplasm of unspecified part of unspecified bronchus or lung (HCC) (Primary Dx)Start: 09-30-2022 End: 64-39-0779Fcrnmoixox hospital visit by physicianArrival Time Radiology Work Phone: Radiology Pet CTComment on above:Lung nodules [R91.8] Start: 28-68-9101Iaumalkfw encounterEvangelina Sim RNHematology/OncologyComment on above:ResultsStart: 28-12-1792Puspvnmkg Saba Bai MD Work Phone: Cancer Appts MCComment on above:AppointmentConsult Start: 09-15-2022 End: 87-23-7156Uugpkldfbj hospital visit by physicianArrival Time Radiology Work Phone: Radiology Pet CTComment on above:Cancer of trachea, bronchus, 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, 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]Start: 07-21-2022 End: 79-24-0555ghnoiueohzNvmhlSanjuana Bai MD Work Phone: Hematology/OncologyComment on above:Cancer of trachea, bronchus, and lung (HCC) (Primary Dx); Lung nodules; Panlobular emphysema (HCC)Start: 07-21-2022 End: 24-19-5406Izgxidr encounter Patricia Bai MD Work Phone: SANDUSKYStart: 07-14-2022 End: 79-98-1139Ysyubnetim hospital visit by physicianArrival Time Radiology Work Phone: Radiology Pet CTComment on above:Malignant neoplasm of unspecified part of unspecified bronchus or lung (HCC) [C34.90]Start: 04-14-2022 End: 78-86-1489Ywysghj encounter Waqar Etienne Work Phone: [facility] Start: 51-76-1200Ugnaayuxf encounterEvangelina Sim RNHematology/OncologyComment on above:ResultsStart: 03-31-2022 End: 78-12-6911wtqcpvfueiRhaeoSanjuana Bai MD Work Phone: Hematology/OncologyComment on above:Malignant neoplasm of unspecified part of unspecified bronchus or lung (HCC) (Primary Dx); Cancer of trachea, bronchus, and lung (HCC); Panlobular emphysema (HCC)Start: 03-31-2022 End: 35-83-4499Tondqri encounter Patricia Bai MD Work Phone: SANDUSKYStart: 03-31-2022 End: 33-74-7928Mvsnnkdqea hospital visit by physicianArrival Time Radiology Work Phone: Radiology Pet CTComment on above:Malignant neoplasm of unspecified part of unspecified bronchus or lung (HCC) [C34.90]Start: 03-15-2022 End: 65-21-4785vofrnpkubgLK GEORGE MOUKARBELFacility:N8Tuvmy: 03-02-2022 End: 81-10-1735cqxtexymneRrnjt Abhyankar MD Work Phone: Hematology/OncologyComment on above:Cancer of trachea, bronchus, and lung (HCC) (Primary Dx); Malignant neoplasm of unspecified part of unspecified bronchus or lung (HCC); Panlobular emphysema (HCC)Start: 03-02-2022 End: 15-81-8092Ekfgmdnojdln consultation with patientLinette Bai MD Work Phone: SANDUSKYStart: 92-39-2438Eeuychgff encounterLinette Bai MD Work Phone: Cancer Appts MCComment on above:AppointmentStart: 02-25-2022 End: 74-24-0046zwnhdbgxnuEMTDZS Job DARIUSZWWADFacility:W3Iwtom: 01-06-2022 End: 14-88-5543Hhkdwto encounter procedureBj Mota MD Work Phone: General SurgeryComment on above:Liver mass (Primary Dx)Start: 01-05-2022 End: 25-72-2865Qdyjwawbl to [facility] 3 Work Phone: SHEFFIELDStart: 01-05-2022 End: 70-32-2518xaumwdfbnjLvej 3 Work Phone: Pre AnesthesiaComment on above:Pre-op evaluation (Primary Dx); Liver mass; Coronary arteriosclerosis; Chronic diastolic [...] Hyperlipidemia, unspecified hyperlipidemia type; Depression, unspecified depression typeStart: 01-05-2022 End: 05-60-0012Biokgmrfkoxgb examination donePeacehealth 3 Work Phone: Pre AnesthesiaStart: 12-17-2021 End: 14-40-2582aqtosqfuydOwdqc Abhyankar MD Work Phone: Hematology/OncologyComment on above:Cancer of trachea, bronchus, and lung (HCC) (Primary Dx); Liver mass, right lobeStart: 12-17-2021 End: 51-91-6685Swftztjagvpv consultation with Marc Bai MD Work Phone: SANDUSKYStart: 12-10-2021 End: 71-86-8192Ltlliuzjpc hospital visit by physicianArrival Time Radiology Work Phone: Radiology Pet CTComment on above:Enlarged lymph node [R59.9]Start: 10-22-2021 End: 94-75-0291Ccjucegfak hospital visit by physicianArrival Time Radiology Work Phone: Radiology Pet CTComment on above:Enlarged lymph node [R59.9] Procedures DateProcedureProcedure DetailPerforming ClinicianStart: 10-34-5564CRVDJXQVOXA CARE EDUCATIONTerrell Lauren [employer]IOFUELS RESEARCH SCIENTIST-CONTACT CENTER CONSULTANT Work Phone: Start: 21-47-2636Mozhm metabolic panel calcium total Real Owens B[employer] RESEARCH SCIENTIST-CONTACT CENTER CONSULTANT Work Phone: Start: 99-93-1780Nfoxuwvvu serum plasma/whole blood Igor Steel DO Work Phone: Start: 64-66-3616Nyyfdticmb exam chest single view Fang Doyle BIOFUELS RESEARCH SCIENTIST-CONTACT CENTER CONSULTANT Work Phone: Start: 83-89-6957Ngfws metabolic panel calcium total Basnate Owens BIOFUELS RESEARCH SCIENTIST-CONTACT CENTER CONSULTANT Work Phone: Start: 16-16-3504JJIBTGCJMFO CARE CONSULTKaitlyn Hummer PA Work Phone: Start: 09-35-0197Raiwfszua serum plasma/whole blood Lida Hummer PA Work Phone: Start: 20-16-6792OCHMDR THERAPY, HIGH FLOW NASAL CANNULA (HFNC)Aura K Peppel BIOFUELS RESEARCH SCIENTIST-CONTACT CENTER CONSULTANT Work Phone: Start: 35-04-3415Fidwxskyp serum plasma/whole blood Lida Hummer PA Work Phone: [phone]: 36-72-5577ZUENBU THERAPY, HIGH FLOW NASAL CANNULA (HFNC)Aura K Peppel BIOFUELS RESEARCH SCIENTIST-CONTACT CENTER CONSULTANT Work Phone: Start: 11-03-7532Uqjfkaiksr exam chest single viewSdevin Piña Peppel BIOFUELS RESEARCH SCIENTIST-CONTACT CENTER CONSULTANT Work Phone: Start: 40-52-0504KUCJBX THERAPY, HIGH FLOW NASAL CANNULA (HFNC)Aura K Peppel BIOFUELS RESEARCH SCIENTIST-CONTACT CENTER CONSULTANT Work Phone: Start: 78-05-7675Zbrbc gases any combination ph pco2 po2 co2 unt3Grlejf N Ayla DO Work Phone: Start: 39-46-8563Pkymy metabolic panel calcium total Real Owens BIOFUELS RESEARCH SCIENTIST-CONTACT CENTER CONSULTANT Work Phone: Start: 27-14-1285VHDQMBGNLKU CARE CONSULTKaitlyn Hummer PA Work Phone: Start: 20-16-0978KFUSQQQKDQV CARE CONSULTKaitlyn Hummer PA Work Phone: [phone]: 53-43-9492Jnnemtomlm exam chest single view Real Owens BIOFUELS RESEARCH SCIENTIST-CONTACT CENTER CONSULTANT Work Phone: Start: 27-75-6204Fqdgw metabolic panel calcium total Lida Hummer PA Work Phone: [phone]: 36-08-9631Btzgcbyhnw exam swallow function contrast studyRylie Moreno MD Work Phone: Start: 26-30-2622Vwldd gases any combination ph pco2 po2 co2 oad9Pzscwn Arely Steel DO Work Phone: Start: 56-75-1590Kdknnbstbw exam chest single view Rylie Moreno MD Work Phone: Start: 48-67-7685Hipnz metabolic panel calcium total Lida David PA Work Phone: Start: 41-18-9296CVSWMC THERAPY, HIGH FLOW NASAL CANNULA (HFNC)Igor Steel DO Work Phone: Start: 36-48-1096PDPQIT THERAPY, HIGH FLOW NASAL CANNULA (HFNC)Igor Steel DO Work Phone: Start: 30-07-4852Eqlrs s aureus methicillin resist amp probe Amelie Nieto MD Work Phone: Start: 06-75-3163RMXHLM THERAPY, HIGH FLOW NASAL CANNULA (HFNC)Igor Steel DO Work Phone: Start: 82-89-1121Hkuty gases any combination ph pco2 po2 co2 bux7Sqamjhcamilla Steel DO Work Phone: Start: 11-75-7022Wowsnacdys exam chest single view Timothy Nieto MD Work Phone: Start: 04-19-2025 End: 39-71-6423Efagi metabolic panel calcium totalLida Hernandez PA Work Phone: Start: 42-31-5393Ii chest real time w/image documentationSandra Uribe MD Work Phone: Start: 85-84-4606NNKVLH THERAPY, HIGH FLOW NASAL CANNULA (HFNC)Igor Steel DO Work Phone: Start: 87-41-9004MJKROY THERAPY, HIGH FLOW NASAL CANNULA (HFNC)Igor Steel DO Work Phone: Start: 97-08-6569Iha-scan xtr veins complete bilateral studyJace Ramos Work Phone: Start: 37-53-5752HZMZQP THERAPY, HIGH FLOW NASAL CANNULA (HFNC)Igor Steel DO Work Phone: Start: 00-74-7451Ktkzn gases any combination ph pco2 po2 co2 txo3Btxunb Arely Steel DO Work Phone: Start: 97-06-7264Gcphwwglfq exam chest single view Sandra Uribe MD Work Phone: Start: 84-39-6245Epode metabolic panel calcium total Lida David PA Work Phone: Start: 82-53-5298Dhg routine ecg w/least 12 lds trcg only w/o i&Akira Uribe MD Work Phone: Start: 25-06-5991Yn thorax w/contrast material Fang Doyle BIOFUELS RESEARCH SCIENTIST-CONTACT CENTER CONSULTANT Work Phone: Start: 96-87-8042Mqkba gases any combination ph pco2 po2 co2 gev8Eqvkep N Ayla DO Work Phone: Start: 17-05-4462Djpkixzvug exam chest single view Fang Doyle BIOFUELS RESEARCH SCIENTIST-CONTACT CENTER CONSULTANT Work Phone: Start: 67-57-2212EHJUTR THERAPY, HIGH FLOW NASAL CANNULA (HFNC)Igor Steel DO Work Phone: Start: 38-71-6866Hzutm metabolic panel calcium total Lida MAGAÑA Work Phone: Start: 35-80-5025WYBSBW THERAPY, HIGH FLOW NASAL CANNULA (HFNC)Igor Steel DO Work Phone: Start: 64-58-7007QKTGBE THERAPY, HIGH FLOW NASAL CANNULA (HFNC)Igor Steel DO Work Phone: Start: 70-70-4992IFMNFYLOYKC CARE CONSULTKaitbozena MAGAÑA Work Phone: Start: 75-39-3325Elmhi gases any combination ph pco2 po2 co2 bvw4Ngamys N Cotterman DO Work Phone: Start: 42-15-8471Oywhzksjuz exam chest single view Sandra Uribe MD Work Phone: Start: 88-99-8961Nkwzw gases any combination ph pco2 po2 co2 ryz7Mukadh N Berylerman DO Work Phone: [phone]: 82-80-9502Wpzau metabolic panel calcium total Lidaesperanza Lovemer PA Work Phone: Start: 17-82-9393Tdnkcljtur exam chest single view Sandra Uribe MD Work Phone: Start: 75-54-3732Omjvutjmd serum plasma/whole blood Timothy Nieto MD Work Phone: Start: 94-60-3944Orqne gases any combination ph pco2 po2 co2 vid7Nyjlqe N Ayla DO Work Phone: Start: 50-42-3085Islicutukt exam chest single view Carmelo Tatum PA Work Phone: Start: 95-98-3313Ovmvd metabolic panel calcium total Lidaesperanza Lovemer PA Work Phone: Start: 86-51-9279Pjrfs gases any combination ph pco2 po2 co2 ykc9Jhqpya N Ayla DO Work Phone: Start: 88-33-5396Fcdiywhcp serum plasma/whole blood Timothy Nieto MD Work Phone: Start: 46-36-3777Eumz tst prsmv instrmnt chem analyzers pr dateLida Hernandez PA Work Phone: Start: 87-72-4447Cegye dip stick/tablet reagent auto microscopyLida Hernandez PA Work Phone: Start: 11-80-4042JHPKJQV GLUCOSERobert N Ayla DO Work Phone: Start: 18-26-0168Hcpnj metabolic panel calcium total Lida Hernandez PA Work Phone: Start: 04-14-2025 End: 34-52-4850APGAPNH GLUCOSERobert N Ayla DO Work Phone: Start: 67-69-6414Uxj routine ecg w/least 12 lds trcg only w/o i&rBrandy MAGAÑA Work Phone: Start: 24-98-6625Mycedxvv screenMAC ROBINS Comment on above:Performed By: #### TSC ####[facility])[address] [facility] [place] [address] VIRStart: 63-63-8484Tuwrc typing serologic aboBedaniel MAGAÑA Work Phone: Start: 77-40-8924Pgwcqqtvzgsnm metabolic panelBedaniel MAGAÑA Work Phone: Start: 54-34-0574EN ALCOHOL; ANY SPECIMEN EXCEPT URINE AND BREATH, IMMUNOASSAYBedaniel AMGAÑA Work Phone: Start: 96-22-1068MHHCWVOI ABORHBrandy MAGAÑA Work Phone: Start: 20-67-0564Mbmsmrdrtb exam chest single view Lida MAGAÑA Work Phone: Start: 04-14-2025 End: 44-75-8251Dozkz clavicle completeBedaniel MAGAÑA Work Phone: Start: 40-55-0455Ljpse depression screening assessment Jean-Claude Duran BIOFUELS RESEARCH SCIENTIST-CONTACT CENTER CONSULTANT Work Phone: Start: 74-36-3884AM NAIF PERF SPECT REST STRGeneric External Data ProviderStart: 79-97-0125HX ECHO DOPPLER COMPLETEGeneric External Data ProviderStart: 43-49-0825ZN ABD/PEL W IVCONGeneric External Data Provider Start: 26-09-0412Hu thorax w/contrast materialGeneric External Data Provider Start: 30-48-1844LQV CBC W AUTO DIFF BLDGeneric External Data ProviderStart: 32-87-3678Nflfi count complete auto&auto difrntl wbcLinette Bai MD Work Phone: Start: 95-21-9059OWDXHNZV Indy Bai MD Work Phone: Start: 14-81-1935Atxueg [Mass/volume] in Serum or PlasmaLinette Bai MD Work Phone: Start: 08-31-2464MUE CBC W AUTO DIFF BLDGeneric External Data ProviderStart: 52-05-6271Dnsyb count complete auto&auto difrntl Ken Bai MD Work Phone: Start: 51-66-5611Fzwkak-up visitFollow-upSHANNA Jeffrey ELSTONStart: 87-16-8203YNF LIPID PROFILE (FASTING)Jasen Vasques NP Work Phone: Start: 18-83-3832Se thorax w/contrast materialLinette Bai MD Work Phone: Start: 12-55-9005MPJ CBC W AUTO DIFF BLDGeneric External Data ProviderStart: 45-82-5303Obqyv count complete auto&auto difrntl Ken Bai MD Work Phone: Start: 13-37-0247EM ABD/PEL W IVCONGeneric External Data ProviderStart: 08-61-9676Sx thorax w/contrast materialGeneric External Data ProviderStart: 20-36-0957LJF COMP METAB 2000 PNL SERPLGeneric External Data ProviderStart: 97-38-7803PZW CBC W AUTO DIFF BLDGeneric External Data Provider Start: 07-19-2024 End: 70-06-8044Hrygx count complete auto&auto difrntl Ken Bai MD Work Phone: Start: 60-44-2923Fdwjk count complete auto&auto difrntl Ken Bai MD Work Phone: Start: 60-05-3960Rp thorax w/contrast materialLinette Bai MD Work Phone: Start: 84-33-7580ML ECHO DOPPLER COMPLETEGeneric External Data ProviderStart: 23-46-0343FQ HEAD/BRAIN Kevyn Etienne MD Work Phone: Start: 41-53-5836VR ABD/PEL W IVCONGeneric External Data ProviderStart: 29-97-3036Bi abdomen & pelvis w/contrast Kailash Bai MD Work Phone: Start: 76-16-0020Wt thorax w/contrast Kailash Bai MD Work Phone: Start: 02-77-9557Dwefg count complete auto&auto difrntl Ken Bai MD Work Phone: Start: 41-29-0177GA TIBIA FIBULA LT 2Greer Etienne MD Work Phone: Start: 49-54-9131Uh thorax w/contrast Kailash Bai MD Work Phone: Start: 91-14-1610Zskjo count complete auto&auto difrntl Ken Bai MD Work Phone: Start: 26-91-2609Fvx imaging ct attenuation skull base mid-thighLinette Bai MD Work Phone: Start: 08-04-2023 End: 78-19-1247Twpww count complete auto&auto difrntl Ken Bai MD Work Phone: Start: 37-42-9169XhcpczmpbgzqcmvnummqvvhubjPI Shaikh Lowell Work Phone: Start: 86-45-1450Mpx imaging ct attenuation skull base mid-thighLinette Bai MD Work Phone: Start: 04-28-2023 End: 82-21-8014Cwpvm count complete auto&auto difrntl wbcLinette Bai MD Work Phone: Start: 87-55-7972Pqy imaging ct attenuation skull base mid-thighVivek Abhyankar MD Work Phone: Start: 16-01-3202Erwc bld gluc mntr dev cleared fda spec home useCcf ProviderStart: 16-73-1969Ar abdomen & pelvis w/contrast Kailash Bai MD Work Phone: Start: 70-03-0095Bh thorax w/contrast Kailash Bai MD Work Phone: Start: 93-41-0744Hbvlu count complete auto&auto difrntl wbcLinette Bai MD Work Phone: Start: 79-21-7470Pgu imaging ct attenuation skull base mid-thighLinette Bai MD Work Phone: Start: 85-44-7347Umlq bld gluc mntr dev cleared fda spec home useCcf ProviderStart: 44-15-8831As thorax w/contrast Kailash Bai MD Work Phone: Start: 32-96-4657Dlfdi count complete auto&auto difrntl Ken Bai MD Work Phone: Start: 61-25-4070Ek thorax w/contrast Kailash Bai MD Work Phone: Start: 52-10-6167Eacjl count complete auto&auto difrntl Ken Bai MD Work Phone: Start: 97-20-7329AlwdrdvhhhoVwwykw Fawwad MD Work Phone: Start: 81-70-2424Oe thorax w/contrast Kailash Bai MD Work Phone: Start: 28-63-9221Irtyo count complete auto&auto difrntl Ken Bai MD Work Phone: Start: 18-80-6876Kskbvqb of coronary artery bypass graftingHx of CABGPacc 3 Work Phone: Start: 60-00-4238Ru abdomen & pelvis w/contrast Kailash Bai MD Work Phone: Start: 47-16-1419Kqdwk count complete auto&auto difrntl wbcLinette Bai MD Work Phone: Start: 10-02-0444Xi abdomen & pelvis w/contrast materialGlenna Ramirez BIOFUELS RESEARCH SCIENTIST.CONTACT CENTER CONSULTANT Work Phone: Start: 71-02-2338Fr thorax w/contrast materialHolly Rick BIOFUELS RESEARCH SCIENTIST.CONTACT CENTER CONSULTANT Work Phone: Start: 52-06-9651Hpnte depression screening assessment Linette Bai MD Work Phone: SARS Antigen (LFIA)MD Shaikh Etienne Work Phone: Plan of Treatment DateCare ActivityDetailAuthorStart: 39-09-0091Hsfbihhut for malignant neoplasm of colonNOMS HealthcareStart: 09-39-5842Eideknxh ScreeningDiabetes Screening [facility]: 25-06-1419Hcmivncg ScreeningDiabetes ScreeningMorrow County Hospitaltart: 01-95-7340Vfkywgtj ScreeningDiabetes ScreeningAcmc Healthcare System Start: 18-44-4776Olbqxxxu ScreeningDiabetes ScreeningMorrow County Hospitaltart: 46-89-8014Olsxzpce ScreeningDiabetes ScreeningMorrow County Hospitaltart: 07-19-2027 Diabetes ScreeningDiabetes ScreeningMorrow County Hospitaltart: 08-95-9940Rrgbfsny ScreeningDiabetes ScreeningMorrow County Hospitaltart: 07-76-0435Smgykdsg Screening Diabetes ScreeningMorrow County Hospitaltart: 03-13-1239Wsrxndym ScreeningDiabetes ScreeningMorrow County Hospitaltart: 82-79-7910Begqwrfq ScreeningDiabetes Screening [facility]: 97-47-2904Qtstn BMI ScreeningAdult BMI ScreeningProLakeland Community Hospital Health SystemStart: 22-85-7204Vzvyhps ScreeningTobacco ScreeningProMercy Health St. Anne Hospital SystemStart: 48-91-4988Cuukmkbp ScreeningDiabetes ScreeningMorrow County Hospitaltart: 53-71-8705Gbqfn BMI ScreeningAdult BMI ScreeningMission Family Health Centertart: 29-04-0255Fkzxdfkcdw ScreeningDepression ScreeningMission Family Health Centertart: 80-96-1278Ksqhpvf ScreeningTobacco ScreeningSelect [facility] Start: 30-06-0042Uintv BMI ScreeningAdult BMI ScreeningSelect Medical Specialty [facility] Start: 94-92-0444Lgahthj ScreeningTobacco ScreeningMission Family Health Centertart: 02-18-2026 End: 50-99-9823Qckunaj encounter kntaeznev18/17/2026 4:30 PM EDT Office Visit [facility] [address] [place] [phone] Jean-Claude Heaton NP [address] [place] [address] [facility] FMStart: 06-11-2026Medicare Annual Wellness (AWV) Medicare Annual Wellness (AWV)[facility] HealthcareStart: 33-50-2167SD Controlled (<130/80)BP Controlled (<130/80)[facility]: 81-44-0733TLVKUUYA SCREEN DIABETES SCREENMorrow County Hospitaltart: 65-51-6249ID Controlled (<130/80)BP Controlled (<130/80)[facility]: 85-37-7740Ugkgh BMI ScreeningAdult BMI ScreeningMission Family Health Centertart: 87-10-1237Yrjydwn ScreeningTobacco ScreeningMission Family Health Centertart: 64-24-3700ELVAQFEJ SCREENDIABETES SCREEN [facility]: 18-50-4002AWCUUMJA SCREENDIABETES SCREENAcmc Healthcare System Start: 19-93-7124ZD Controlled (<130/80)BP Controlled (<130/80)[facility] Start: 14-41-7720Dvghdryuarfp Vaccine: 65+ Years (1 of 2 - PCV)Pneumococcal Vaccine: 65+ Years (1 of 2 - PCV)[facility] HealthcareComment on above:Postponed from 1957 (Patient Refused)Postponed from 1970 (Patient Refused)Start: 08-07-2025 End: 78-40-3248gfukjykxjcLdeNukvyd Physicians Pulmonary/Sleep MedicineStart: 08-07-2025 End: 22-15-2707Klughhf encounter jwqqfwxux76/04/2025 11:45 AM EST Office Visit [facility] [address] [place] [address] Richard Lentz DO [address] [address] [facility] Pulmonary/Sleep MedicineStart: 59-77-4390AQ Controlled (<130/80)BP Controlled (<130/80)[facility]: 83-94-2050LFJQXRIB SCREENDIABETES SCREEN [facility]: 31-03-9579AnpncProMedica [facility] Start: 88-46-5217Pkiaaucv identified in Urine by CultureUrine [facility] Hospitaltart: 06-27-2025 End: 03-43-7118Fznwow-up tfihbmusd38/24/2025 2:40 PM EDT Visit (SP) Office Hematology/Oncology [address] [place], [place] [phone] Linette Bai MD [address] [place] [address] scanHematology/OncologyComment on above: follow up after CT scanStart: 06-19-2025 End: 85-47-8277Feaunii encounter uehnggggn09/16/2025 1:45 PM EDT Appointment Radiology Pet CT [address] [place] [place] [address] ct chest w ivRadiology Pet CTComment on above:ct chest w ivStart: 05-29-2025 End: 63-31-7303Avwpadd encounter mgschuoze35/25/2025 8:45 AM EDT Office Visit [facility] [address] [place] [address] Richard Lentz, DO [address] [address] [facility] Pulmonary/Sleep MedicineStart: 05-12-2025 End: 00-22-2077Wmnmeiv encounter ybktoptvl26/08/2025 1:30 PM EDT Office Visit [facility] [address] [place] [address] Jean-Claude Heaton, CHELLE [address] [place] [address] NOMMayda SANTOS FMStart: 05-09-2025 End: 23-05-7796VJO W Auto Differential panel - BloodCOMPLETE BLOOD COUNT AND DIFFERENTIAL Lab Routine Malignant neoplasm of unspecified part of unspecified bronchus or lung (HCC) Fall (on) (from) unspecified stairs and steps, subsequent encounter Multiple fractures of ribs, left side, subsequent encounter for fracture with routine healing Pain in thoracic spine Expected: 05/09/2025, Expires: 08/08/2025leveland ClinicComment on above:Expected: 05/09/2025, Expires: 08/08/2025Start: 05-09-2025 End: 08-73-1118Rqzmyzfpdejgd metabolic 2000 panel - Serum or PlasmaCOMPREHENSIVE METABOLIC PANEL Lab Routine Malignant neoplasm of unspecified part of unspecified bronchus or lung (HCC) Fall (on) (from) unspecified stairs and steps, subsequent encounter Multiple fractures of ribs, left side, subsequent encounter for fracture with routine healing Pain in thoracic spine Expected: 05/09/2025, Expires: 08/08/2025[facility] ClinicComment on above:Expected: 05/09/2025, Expires: 08/08/2025Start: 05-08-2025 End: 58-92-7894naefbmmpsh83/04/2025 2:40 PM EDT Visit (SP) Office Hematology/Oncology [address] [place] [address] [address] [place], [place] [phone] Linette Bai MD [address] [place] [address] Ct Chest with contrast and labHematology/OncologyComment on above:Ct Chest with contrast and labStart: 05-08-2025 End: 63-06-8895Lszevvfnfk and Glomerular filtration rate.predicted panel - Serum, Plasma or BloodCREATININE BLD Lab Routine Malignant neoplasm of unspecified part of unspecified bronchus or lung (HCC) Expected: 05/08/2025, Expires: 08/07/2025[place] ClinicComment on above:Expected: 05/08/2025, Expires: 08/07/2025Start: 05-06-2025 End: 77-43-3838yamkectdssScbKpudjs Physicians Orthopedics/Trauma and Adult ReconstructionStart: 05-06-2025 End: 49-89-4685Tlglmdi encounter procedureProMedica Physicians Orthopedics/Trauma and Adult ReconstructionStart: 11-84-0965QyuzbbisfSentara RMH Medical CenterStart: 05-01-2025 End: 79-08-5543JXS W Auto Differential panel - BloodCOMPLETE BLOOD COUNT AND DIFFERENTIAL Lab Routine Cancer of trachea, bronchus, and lung (HCC) Expected: 05/01/2025 (Approximate), Expires: 07/31/2025[place] ClinicComment on above: Expected: 05/01/2025 (Approximate), Expires: 07/31/2025Start: 05-01-2025 End: 54-72-1272Gdaemkuulnemi metabolic 2000 panel - Serum or PlasmaCOMPREHENSIVE METABOLIC PANEL Lab Routine Cancer of trachea, bronchus, and lung (HCC) Expected: 05/01/2025 (Approximate), Expires: 07/31/2025[facility] Work Phone: Comment on above:Expected: 05/01/2025 (Approximate), Expires: 07/31/2025Start: 05-01-2025 End: 83-96-3444Xigufkx encounter picvgfect31/28/2025 1:15 PM EDT Appointment Radiology Pet CT [address] [place] [address] Ct Chest with contrast and labRadiology Pet CTComment on above:Ct Chest with contrast and labStart: 04-24-2025 End: 41-09-0860UY Chest W contrast IVCT CHEST W IVCON Radiology Routine Malignant neoplasm of upper lobe of right lung (HCC) Malignant neoplasm of unspecified part of unspecified bronchus or lung (HCC) Expected: 04/24/2025 (Approximate), Expires: 03/08/2026[facility] Work Phone: Comment on above:Expected: 04/24/2025 (Approximate), Expires: 03/08/2026Start: 04-02-2025 End: 93-05-3665Rpmzebv encounter /30/2025 1:20 PM EDT Office Visit [facility] [address] [place] [phone] Jean-Claude Hetaon NP [address] [place] [phone] [facility] Jeffrey FMStart: 52-40-5959SYJKPRFB SCREENDIABETES SCREEN [facility]: 03-27-2025 End: 82-25-9388Zrwbbpsui (Vitamin B12) [Mass/volume] in Serum or PlasmaVITAMIN B12 Lab Routine Cancer of trachea, bronchus, and lung (HCC) Expected: 03/27/2025, Expires: 06/26/2025[place] ClinicComment on above:Expected: 03/27/2025, Expires: 06/26/2025Start: 03-27-2025 End: 88-73-7672Ifxdlgur [Mass/volume] in Serum or PlasmaFERRITIN Lab Routine Cancer of trachea, bronchus, and lung (HCC) Expected: 03/27/2025, Expires: 06/05[place] ClinicComment on above:Expected: 03/27/2025, Expires: 06/26/2025 Start: 03-27-2025 End: 53-82-2784Wmaelh [Mass/volume] in Serum or PlasmaFOLATE, SERUM Lab Routine Cancer of trachea, bronchus, and lung (HCC) Expected: 03/27/2025, Expires: 06/26/2025[place] ClinicComment on above:Expected: 03/27/2025, Expires: 06/26/2025Start: 03-27-2025 End: 31-33-3188Fpem and Iron binding capacity panel - Serum or PlasmaIRON AND TIBC Lab Routine Cancer of trachea, bronchus, and lung (HCC) Expected: 03/27/2025, Expires: 06/26/2025leveland ClinicComment on above:Expected: 03/27/2025, Expires: 06/26/2025Start: 95-42-9127ET Controlled (<130/80)BP Controlled (<130/80)[facility]: 02-20-2025 End: 58-03-7376Wrirpoh encounter ghhitwcug37/19/2025 2:45 PM EDT Office Visit [facility] [address] [place] [address] Richard Lentz DO [address] [address] [facility] Pulmonary/Sleep MedicineStart: 02-12-2025 End: 77-77-1375Gvfzsar encounter procedureNOMS CWM FMComment on above:Medicare annual wellness visit, subsequent (Primary Dx); Tobacco dependence; Mild episode of recurrent major depressive disorder (HCC) (CMS/HCC); Primary hypertension (CMS/HCC); Adenocarcinoma of right lung (CMS/HCC)Start: 02-06-2025 End: 29-38-5023Hdvvzt-up nanhvduei57/05/2025 1:00 PM EDT Visit (SP) Office Hematology/Oncology [address] [place] [phone] Linette Bai MD [address] [place] [address] SCANHematology/OncologyComment on above: [address] SCANStart: 01-30-2025 End: 04-37-3939Juddbp-up nioylwpbt16/29/2025 3:20 PM EDT Visit (SP) Office Hematology/Oncology [address] [place], [place] [phone] Linette Bai MD [address] [place] [id number] SCAN SAME DAYHematology/OncologyComment on above:[address] SCAN SAME DAYStart: 01-30-2025 End: 02-42-4330VHH W Auto Differential panel - BloodCOMPLETE BLOOD COUNT AND DIFFERENTIAL Lab Routine Malignant neoplasm of upper lobe of right lung (HCC) Non-caseating granuloma Abnormal finding on GI tract imaging Anemia, unspecified type Expected: 01/30/2025, Expires: 11/07/2025[facility] ClinicComment on above: Expected: 01/30/2025, Expires: 11/07/2025Start: 01-30-2025 End: 05-12-1273Rkcpjskbj (Vitamin B12) [Mass/volume] in Serum or PlasmaVITAMIN B12 Lab Routine Malignant neoplasm of upper lobe of right lung (HCC) Non- caseating granuloma Abnormal finding on GI tract imaging Anemia, unspecified type Expected: 01/30/2025, Expires: 11/07/2025[facility] ClinicComment on above: Expected: 01/30/2025, Expires: 11/07/2025Start: 01-30-2025 End: 22-14-8389Lxbjrflevkjvs metabolic 2000 panel - Serum or PlasmaCOMPREHENSIVE METABOLIC PANEL Lab Routine Malignant neoplasm of upper lobe of right lung (HCC) Non-caseating granuloma Abnormal finding on GI tract imaging Anemia, unspecified type Expected: 01/30/2025, Expires: [facility]2025[facility] Comment on above:Expected: 01/30/2025, Expires: 11/07/2025Start: 01-30-2025 End: 81-37-2293EY Abdomen and Pelvis W contrast IVCUpper [facility] Work Phone: Comment on above:Expected: 01/30/2025 (Approximate), Expires: 12/07/2025Start: 01-30-2025 End: 17-77-6788SQ Chest W contrast IVCleveland ClinicComment on above:Expected: 01/30/2025 (Approximate), Expires: 12/07/2025Start: 01-30-2025 End: 67-99-9764Cthmacpblpbbea (EPO) [Units/volume] in Serum or PlasmaAcmc Healthcare SystemComment on above:Expected: 01/30/2025, Expires: 05/01/2025Start: 01-30-2025 End: 29-02-9828Nrtmhnlr [Mass/volume] in Serum or PlasmaFERRITIN Lab Routine Malignant neoplasm of upper lobe of right lung (HCC) Non-caseating granuloma Ab normal finding on GI tract imaging Anemia, unspecified type Expected: 01/30/2025, Expires: 11/07/2025[facility] ClinicComment on above:Expected: 01/30/2025, Expires: 11/07/2025Start: 01-30-2025 End: 76-18-8035Mkzild [Mass/volume] in Serum or PlasmaFOLATE, SERUM Lab Routine Malignant neoplasm of upper lobe of right lung (HCC) Non-caseating granuloma Abnormal finding on GI tract imaging Anemia, unspecified type Expected: 01/30/2025, Expires: 11/07/2025[facility] ClinicComment on above:Expected: 01/30/2025, Expires: 11/07/2025Start: 01-30-2025 End: 98-51-5250Mbud and Iron binding capacity panel - Serum or PlasmaIRON AND TIBC Lab Routine Malignant neoplasm of upper lobe of right lung (HCC) Non- caseating granuloma Abnormal finding on GI tract imaging Anemia, unspecified type Expected: 01/30/2025, Expires: 11/07/2025[facility] ClinicComment on above: Expected: 01/30/2025, Expires: 11/07/2025Start: 01-30-2025 End: 91-24-2939Urqrrzr encounter znebnbuyz62/29/2025 1:45 PM EDT Appointment Radiology Pet CT [address] [place] [address] [place] [address] CT CAP W IV Radiology Pet CTComment on above:CT CAP W IVStart: 35-93-9511WSWWOUUD SCREEN DIABETES SCREENMorrow County Hospitaltart: 12-26-2024 End: 03-70-3435Yygviiz encounter procedureNOMS CWM FMComment on above: Adenocarcinoma of right lung (CMS/HCC) (Primary Dx); Chronic systolic (congestive) heart failure; Primary hypertension (CMS/HCC)Start: 12-12-2024 End: 39-22-5175Jnfkdoe encounter gzhpmmywt19/10/2025 2:30 PM EDT Office Visit [facility] [address] [place] [address] Jasen Vasques, CHELLE [address] [place] [address] [facility] C[facility] FMStart: 10-82-2676ODLBJFMC SCREENDIABETES SCREEN [facility]: 11-07-2024 End: 45-05-1646FVA W Auto Differential panel - BloodCOMPLETE BLOOD COUNT AND DIFFERENTIAL Lab Routine Malignant neoplasm of upper lobe of right lung (HCC) Expected: 11/07/2024 (Approximate), Expires: 09/12/2025[facility] ClinicComment on above:Expected: 11/07/2024 (Approximate), Expires: 09/12/2025Start: 11-07-2024 End: 12-60-8707Komkxkdtfcusu metabolic 2000 panel - Serum or PlasmaCOMPREHENSIVE METABOLIC PANEL Lab Routine Malignant neoplasm of upper lobe of right lung (HCC) Expected: 11/07/2024 (Approximate), Expires: 09/12/2025[facility] Comment on above:Expected: 11/07/2024 (Approximate), Expires: 09/12/2025Start: 11-07-2024 End: 27-36-5581RV Abdomen and Pelvis W contrast IVCProMedica Flower [facility] Work Phone: Comment on above:Expected: 11/07/2024 (Approximate), Expires: 10/12/2025Start: 11-07-2024 End: 22-06-2599LJ Chest W contrast IVCtrumbull regional medical center ClinicComment on above:Expected: 11/07/2024 (Approximate), Expires: 10/12/2025Start: 11-07-2024 End: 17-38-4879Xzgpqs-up olmzeweiv89/06/2025 2:00 PM EST Visit (SP) Office Hematology/Oncology [address] [place], [place] [phone] Linette Bai MD [address] [address] 8 week follow up with CT same dayHematology/OncologyComment on above:[address] up with CT same dayStart: 11-07-2024 End: 07-55-0304Oonmgnn encounter csakequjy88/06/2025 12:45 PM EST Appointment Radiology Pet CT [address] [address] CT CAP W IV Radiology Pet CTComment on above:CT CAP W IVStart: 68-88-9237Aivdvtzga vaccinationInfluenza Vaccine (#1)NOMS HealthcareComment on above:Postponed from 05/05/2024 (Patient Refused)Start: 10-10-2024 End: 18-99-8037Pmudesx encounter jdukrhnjq20/06/2025 1:30 PM EST Office Visit [facility] [address] [facility] [place] [address] Richard Lentz, [address] [place] [id number] [facility]monary/Sleep MedicineStart: 01-29-2025Medicare Annual Wellness (AWV)Medicare Annual Wellness (AWV)[facility] HealthcareStart: 09-12-2024 End: 41-33-9650Zbevos-up /09/2025 1:20 PM EST Visit (SP) Office Hematology/Oncology [address] [place], [place] [phone] Linette Bai MD [address] [place] [address] follow up w/ CT same day, pt req around 1 pm time. Hematology/OncologyComment on above:follow up w/ CT same day, pt req around 1 pm time.Start: 09-12-2024 End: 01-20-0725Atullwc encounter procedureNOMS CWM FMComment on above:CT CHEST W IV - seeing DARLEEN same day, req around 1pm time.Start: 09-11-2024 End: 65-07-2699PE Chest W contrast IVCT CHEST W IVCON Radiology Routine Malignant neoplasm of unspecified part of unspecified bronchus or lung (HCC) Abnormal finding on GI tract imaging Lung nodules Non-caseating granuloma Expected: 09/11/2024 (Approximate), Expires: 08/23/2025[facility] Work Phone: Comment on above:Expected: 09/11/2024 (Approximate), Expires: 08/23/2025Start: 09-11-2024 End: 47-30-4838Wuvaq 1996 panel - Serum or PlasmaLipid panel Lab Routine Hyperlipidemia, unspecified hyperlipidemia type (CMS/HCC) Expected: 09/11/2024 (Approximate), Expires: 09/11/2025[facility] Work Phone: Comment on above:Expected: 09/11/2024 (Approximate), Expires: 09/11/2025Start: 09-11-2024 End: 73-37-8466Hxthkju encounter procedureNOMS CWM FMComment on above:Arrived Start: 47-96-1873Mackjny Directive DiscussionAdvance Directive Discussion [facility]: 09-04-2024 End: 31-22-3441PUC W Auto Differential panel - BloodCOMPLETE BLOOD COUNT AND DIFFERENTIAL Lab Routine Malignant neoplasm of unspecified part of unspecified bronchus or lung (HCC) Abnormal finding on GI tract imaging Lung nodules Non- caseating granuloma Expected: 09/04/2024 (Approximate), Expires: 07/24/2025 [facility] SystemComment on above:Expected: 09/04/2024 (Approximate), Expires: 07/24/2025Start: 09-04-2024 End: 66-67-8223Vtzmbvviduhkq metabolic 2000 panel - Serum or PlasmaCOMPREHENSIVE METABOLIC PANEL Lab Routine Malignant neoplasm of unspecified part of unspecified bronchus or lung (HCC) Abnormal finding on GI tract imaging Lung nodules Non-caseating granuloma Expected: 09/04/2024 (Approximate), Expires: 07/24/2025[facility] ClinicComment on above:Expected: 09/04/2024 (Approximate), Expires: 07/24/2025Start: 03-42-6402Mswvg BMI ScreeningAdult BMI Screening [facility]art: 11-72-0358Ickmptb ScreeningTobacco Screening [facility] Centertart: 51-48-9835Bedrtzqow vaccinationInfluenza Vaccine (#1)[facility] HealthcareComment on above:Postponed from 05/05/2024 (Patient Refused) Start: 07-24-2024 End: 98-24-4926ffqbcrfwyuAshtrrvmhv/OncologyComment on above:[address] scanStart: 07-19-2024 End: 09-09-7560KUR W Auto Differential panel - BloodCOMPLETE BLOOD COUNT AND DIFFERENTIAL Lab Routine Malignant neoplasm of unspecified part of unspecified bronchus or lung (HCC) Abnormal finding on GI tract imaging Expected: 07/19/2024 (Approximate),Expires: 04/18/2025[facility] ClinicComment on above:Expected: 07/19/2024 (Approximate), Expires: 04/18/2025Start: 07-19-2024 End: 79-42-1017Wzcytosqwrvgh metabolic 2000 panel - Serum or PlasmaCOMPREHENSIVE METABOLIC PANEL Lab Routine Malignant neoplasm of unspecified part of unspecified bronchus or lung (HCC) Abnormal finding on GI tract imaging Expected: 07/19/2024 (Approximate), Expires: 04/18/2025[facility] ClinicComment on above:Expected: 07/19/2024 (Approximate), Expires: 04/18/2025Start: 07-19-2024 End: 89-93-6115LE Abdomen and Pelvis W contrast IVCProMedica F[facility] Work Phone: Comment on above:Expected: 07/19/2024 (Approximate), Expires: 05/18/2025Start: 07-19-2024 End: 70-30-7427TR Chest W contrast IVCleveland ClinicComment on above:Expected: 07/19/2024 (Approximate), Expires: 05/18/2025Start: 07-19-2024 End: 42-48-8838uwfhriqsbd07/15/2024 11:30 AM EST Visit (SP) Office Hematology/Oncology [address] [place] [address] [place] [address] Linette Bai MD [address] [address] scanHematology/OncologyComment on above:[address] scanStart: 07-19-2024 End: 99-07-7176Hyyemvu encounter hewtceklq07/15/2024 10:15 AM EST Appointment Radiology Pet CT [address] [address] CT CAP W IVCON & LABSneeded time due to transportationRadiology Pet CTComment on above:CT CAP W IVCON & LABSneeded time due to transportationStart: 06-03-2024 End: 62-61-3684Lrioxtz encounter jphfgqfci88/30/2024 2:00 PM EDT Office Visit [facility] [address] [place] [phone] Jasen Vasques, CYBER SOFTWARE ENGINEER [address] [place] [phone] ArrivedNOMS CWM FMComment on above:ArrivedStart: 05-29-2024 End: 94-88-0924Jyxubzq encounter qohzcphwq57/25/2024 2:00 PM EDT Office Visit [facility] [address] [place] [phone] Jasen Vasques, CYBER SOFTWARE ENGINEER [address] [place] [phone] [facility] FMStart: 51-03-4282RQ Controlled (<130/80)BP Controlled (<130/80)[facility]: 33-31-7854Lkeqh-19 Vaccine ( season)Covid-19 Vaccine ()[facility]: 05-05-2024 Covid-19 Vaccine ()Covid-19 Vaccine () [facility]: 26-45-6331Iuxaidbzv vaccinationMorrow County Hospitaltart: 04-18-2024 End: 74-29-7465BGZ W Auto Differential panel - BloodCOMPLETE BLOOD COUNT AND DIFFERENTIAL Lab Routine Cancer of trachea, bronchus, and lung (HCC) Expected: 04/18/2024 (Approximate), Expires: 07/18/2024[facility]Comment [facility]: Expected: 04/18/2024 (Approximate), Expires: 07/18/2024Start: 04-18-2024 End: 15-52-1168Noaxulzpzkfwd metabolic 2000 panel - Serum or PlasmaCOMPREHENSIVE METABOLIC PANEL Lab Routine Cancer of trachea, bronchus, and lung (HCC) Expected: 04/18/2024 (Approximate), Expires: 07/18/2024[facility] Work Phone: Comment on above:Expected: 04/18/2024 (Approximate), Expires: 07/18/2024Start: 04-18-2024 End: 18-75-0069Gmlxtt-up ewedquxsq99/15/2024 11:30 AM EDT Visit (SP) Office Hematology/Oncology [address] [place] [address] Linette Bai MD [address] [place] [address] follow up w/ CT chest same dayHematology/OncologyComment on above:follow up w/ CT chest same dayStart: 04-18-2024 End: 47-48-4590Ptsffqe encounter xjshhobrv70/15/2024 10:45 AM EDT Appointment Radiology Pet CT [address] [place] [address] CT CHEST W Radiology Pet CTComment on above:CT CHEST WStart: 04-12-2024 End: 78-53-8841CDMNDZYVVW BLDCREATININE BLD Lab Routine Lung nodules Malignant neoplasm of unspecified part of unspecified bronchus or lung (HCC) Expected: 04/12/2024 (Approximate), Expires: 07/12/2024[facility] CenterComment [facility]: Expected: 04/12/2024 (Approximate), Expires: 07/12/2024Start: 04-12-2024 End: 37-18-7767YW Chest W contrast IVCT CHEST W IVCON Radiology Routine Lung nodules Malignant neoplasm of unspecified part of unspecified bronchus or lung (HCC) Expected: 04/12/2024 (Approximate), Expires: 03/31/2025[facility] Work Phone: Comment on above:Expected: 04/12/2024 (Approximate), Expires: 03/31/2025Start: 88-65-3522PB CONTROLLED (<130/80)BP CONTROLLED (<130/80)[facility]: 02-17-2024 End: 16-54-0001AKR W Auto Differential panel - BloodCBC + DIFF Lab Routine Malignant neoplasm of upper lobe of right lung (HCC) Expected: 02/17/2024 (Ap proximate), Expires: 11/16/2024[facility] Work Phone: Comment on above:Expected: 02/17/2024 (Approximate), Expires: 11/16/2024Start: 02-17-2024 End: 21-53-0379Xjcofrmjxazvp metabolic 2000 panel - Serum or PlasmaCOMP METABOLIC PANEL Lab Routine Malignant neoplasm of upper lobe of right lung (HCC) Expected: 02/17/2024 (Approximate), Expires: 11/16/2024[facility] Work Phone: Comment on above:Expected: 02/17/2024 (Approximate), Expires: 11/16/2024Start: 02-17-2024 End: 05-92-5504SW Abdomen and Pelvis W contrast IVCT ABD/PEL W IVCON Radiology Routine Lower abdominal pain Malignant neoplasm of upper lobe of rightlung (HCC) Expected: 02/17/2024 (Approximate), Expires: 12/16/2024[facility] Work Phone: Comment on above:Expected: 02/17/2024 (Approximate), Expires: 12/16/2024Start: 02-17-2024 End: 10-18-2002GX Chest W contrast IVCT CHEST W IVCON Radiology Routine Malignant neoplasm of upper lobe of right lung (HCC) Expected: 02/17/2024 (Approximate), Expires: 12/16/2024[facility] Work Phone: Comment on above:Expected: 02/17/2024 (Approximate), Expires: 12/16/2024Start: 01-01-2024 End: 62-12-3184Apjqzpd encounter qwiipdkkc33/29/2024 1:00 PM EDT Office Visit [facility] [address] [place] [address] Jean-Claude Heaton, CYBER SOFTWARE ENGINEER [address] [place] [address] NOMMayda SANTOS FMStart: 11-10-2023 End: 54-06-3294AMW W Auto Differential panel - BloodCBC + DIFF Lab Routine Malignant neoplasm of unspecified part of unspecified bronchus or lung (HCC) Expected: 11/10/2023 (Approximate), Expires: 08/11/2024[facility] Work Phone: Comment on above:Expected: 11/10/2023 (Approximate), Expires: 08/11/2024Start: 11-10-2023 End: 95-83-6029Pojugcfcinlgm metabolic 2000 panel - Serum or PlasmaCOMP METABOLIC PANEL Lab Routine Malignant neoplasm of unspecified part of unspecified bronchus or lung (HCC) Expected: 11/10/2023 (Approximate), Expires: 08/11/2024[facility] Work Phone: Comment on above:Expected: 11/10/2023 (Approximate), Expires: 08/11/2024Start: 11-10-2023 End: 89-56-0717II CHEST W IVCONCT CHEST W IVCON Radiology Routine Malignant neoplasm of unspecified part of unspecified bronchus or lung (HCC) Expected: 11/10/2023 (Approximate), Expires: 09/09/2024[facility] Work Phone: Comment on above:Expected: 11/10/2023 (Approximate), Expires: 09/09/2024Start: 54-77-4340VR CONTROLLED (<130/80)BP CONTROLLED (<130/80)[facility]: 33-45-7256Ppmyept Directive DiscussionAdvance Directive DiscussionMorrow County Hospitaltart: 25-68-8056Ffldkuhnh for malignant neoplasm of colonNOMS HealthcareStart: 08-04-2023 End: 78-39-6619VMJ W Auto Differential panel - BloodCBC + DIFF Lab Routine Abnormal finding on GI tract imaging Malignant neoplasm of unspecified part of unspecified bronchus or lung (HCC) Expected: 08/04/2023 (Approximate), Expires: 05/05/2024[facility] Work Phone: Comment on above:Expected: 08/04/2023 (Approximate), Expires: 05/05/2024Start: 08-04-2023 End: 03-02-2557Iivfndjyzxgfw metabolic 2000 panel - Serum or PlasmaCOMP METABOLIC PANEL Lab Routine Abnormal finding on GI tract imaging Malignant neoplasm of unspecified part of unspecified bronchus or lung (HCC) Expected: 08/04/2023 (Approximate), Expires: 05/05/2024[facility] Work Phone: Comment on above:Expected: 08/04/2023 (Approximate), Expires: 05/05/2024Start: 08-04-2023 End: 41-94-7873CR PET/CT SKULL-THIGH SUBSEQUENTNM PET/CT SKULL-THIGH SUBSEQUENT Radiology Routine Abnormal finding on GI tract imaging Malignant neoplasm of unspecified part of unspecified bronchus or lung (HCC) Expected: 08/04/2023 (Approximate), Expires: 06/03/2024[facility] Work Phone: Comment on above:Expected: 08/04/2023 (Approximate), Expires: 06/03/2024Start: 06-03-2023 End: 04-55-5194CMH W Auto Differential panel - BloodCBC + DIFF Lab Routine Malignant neoplasm of unspecified part of unspecified bronchus or lung (HCC)Lung nodules Expected: 06/03/2023 (Approximate), Expires: 03/03/2024[facility] Work Phone: Comment on above:Expected: 06/03/2023 (Approximate), Expires: 03/03/2024Start: 06-03-2023 End: 95-67-9243Kgiaaewdqtizm metabolic 2000 panel - Serum or PlasmaCOMP METABOLIC PANEL Lab Routine Malignant neoplasm of unspecified part of unspecified bronchus or lung (HCC) Lung nodules Expected: 06/03/2023 (Approximate), Expires: 03/03/2024[facility] Work Phone: Comment on above:Expected: 06/03/2023 (Approximate), Expires: 03/03/2024Start: 06-03-2023 End: 99-53-4115ZZ PET/CT SKULL-THIGH SUBSEQUENTNM PET/CT SKULL-THIGH SUBSEQUENT Radiology Routine Malignant neoplasm of unspecified part of unspecified bronchus or lung (HCC) Lung nodules Expected: 06/03/2023 (Approximate), Expires: 04/01/2024[facility] Work Phone: Comment on above:Expected: 06/03/2023 (Approximate), Expires: 04/01/2024Start: 16-66-2010RebrpnfyqSelect Medical Specialty Hospital - Youngstowntart: 85-33-8669Kfmsv-19 Vaccine ( season)Covid-19 Vaccine ( season)[facility]: 43-15-9935Ansvrwycy vaccinationAcmc Healthcare System Start: 45-59-7557GX CONTROLLED (<130/80)BP CONTROLLED (<130/80)[facility] Start: 02-19-2023 End: 92-70-3209GG PET/CT SKULL-THIGH SUBSEQUENTNM PET/CT SKULL-THIGH SUBSEQUENT Radiology Routine Malignant neoplasm of unspecified part of unspecified bronchus or lung (HCC) Expected: 02/19/2023 (Approximate), Expires: 02/07/2024[facility] Work Phone: Comment on above:Expected: 02/19/2023 (Approximate), Expires: 02/07/2024Start: 14-99-2829WP CONTROLLED (<130/80)BP CONTROLLED (<130/80)[facility]: 09-15-2022 End: 82-19-0437UOJ W Auto Differential panel - BloodCBC + DIFF Lab Routine Cancer of trachea, bronchus, and lung (HCC) Expected: 09/15/2022 (Approximate), Expires: 07/21/2023[facility] Work Phone: Comment on above:Expected: 09/15/2022 (Approximate), Expires: 07/21/2023Start: 09-15-2022 End: 72-36-2533Mbporbfdgawqb metabolic 2000 panel - Serum or PlasmaCOMP METABOLIC PANEL Lab Routine Cancer of trachea, bronchus, and lung (HCC) Expected: 09/15/2022 (Approximate), Expires: 07/21/2023[facility] Work Phone: Comment on above:Expected: 09/15/2022 (Approximate), Expires: 07/21/2023Start: 09-15-2022 End: 69-18-9308JL CHEST W IVCONCT CHEST W IVCON Radiology Routine Cancer of trachea, bronchus, and lung (HCC) Lung nodules Expected: 09/15/2022 (Approximate), Expires: 08/20/2023[facility] Work Phone: Comment on above:Expected: 09/15/2022 (Approximate), Expires: 08/20/2023Start: 20-70-8700EBGVKFW DIRECTIVE DISCUSSIONADVANCE DIRECTIVE DISCUSSIONMorrow County Hospitaltart: 08-03-2022 End: 35-82-9376YEC W Auto Differential panel - BloodCBC + DIFF Lab Routine Malignant neoplasm of unspecified part of unspecified bronchus or lung (HCC) Expected: 08/03/2022 (Approximate), Expires: 04/03/2023[facility] Work Phone: Comment on above:Expected: 08/03/2022 (Approximate), Expires: 04/03/2023Start: 08-03-2022 End: 29-35-4331Uzpdjkvvegrou metabolic 2000 panel - Serum or PlasmaCOMP METABOLIC PANEL Lab Routine Malignant neoplasm of unspecified part of unspecified bronchus or lung (HCC) Expected: 08/03/2022 (Approximate), Expires: 04/03/2023[facility] Work Phone: Comment on above:Expected: 08/03/2022 (Approximate), Expires: 04/03/2023Start: 08-03-2022 End: 66-71-9307OF CHEST W IVCONCT CHEST W IVCON Radiology Routine Malignant neoplasm of unspecified part of unspecified bronchus or lung (HCC) Expected: 08/03/2022 (Approximate), Expires: 05/03/2023[facility] Work Phone: Comment on above:Expected: 08/03/2022 (Approximate), Expires: 05/03/2023Start: 58-66-8235Hsgmcfaab vaccinationChardon ClinicStart: 84-67-1449QfdzywsvrNorwalk Memorial Hospital Ctr Work Phone: Start: 23-42-0022Uqsepugbcm endoscopic examination on colonDH Colonoscopy Diagnostic (Not Applicable)[facility] Start: 04-18-2022 End: 69-21-5275Vgkkbdmzb to same day surgery centerPersonal history of colonic polypsNorwalk Memorial Hospital Ctr-Digestive HealthStart: 03-30-2022 End: 85-93-1653SKJ W Auto Differential panel - BloodCBC + DIFF Lab Routine Malignant neoplasm of unspecified part of unspecified bronchus or lung (HCC) Cancer of trachea, bronchus, and lung (HCC) Panlobular emphysema (HCC) Expected: 03/30/2022 (Approximate), Expires: 03/02/2023[facility] Work Phone: Comment on above:Expected: 03/30/2022 (Approximate), Expires: 03/02/2023Start: 03-30-2022 End: 31-74-5289Devcnptkzrmnf metabolic 2000 panel - Serum or PlasmaCOMP METABOLIC PANEL Lab Routine Malignant neoplasm of unspecified part of unspecified bronchus or lung (HCC) Cancer of trachea, bronchus, and lung (HCC) Panlobular emphysema (HCC) Expected: 03/30/2022 (Approximate), Expires: 03/02/2023[facility] Work Phone: Comment on above:Expected: 03/30/2022 (Approximate), Expires: 03/02/2023Start: 03-30-2022 End: 67-44-3123Ks thorax w/contrast materialCT CHEST W IVCON Radiology Routine Malignant neoplasm of unspecified part of unspecified bronchus or lung (HCC) Cancer of trachea, bronchus, and lung (HCC) Panlobular emphysema (HCC) Expected: 03/30/2022 (Approximate), Expires: 04/01/2023[facility] Work Phone: Comment on above:Expected: 03/30/2022 (Approximate), Expires: 04/01/2023Start: 40-85-6579Iazrb depression screening assessment DEPRESSION SCREENINGMorrow County Hospitaltart: 01-05-2022 End: 75-33-0775NFBGRVR BLOOD TYPEMercy [facility] Work Phone: Comment on above:Expected: 01/05/2022, Expires: 03/07/2022tart: 01-05-2022 End: 25-99-7417DVQA AND SCREEN,[address] [facility] Work Phone: Comment on above:Expected: 01/05/2022, Expires: 03/07/2022tart: 71-39-3872KBZOXFA DIRECTIVE DISCUSSIONADVANCE DIRECTIVE DISCUSSIONMorrow County Hospitaltart: 80-33-4863Rzkbyogdk aortic aneurysm screening Abdominal Aortic Aneurysm (AAA) ScreenProBTI Systems SystemStart: 2016 Fall Risk ScreeningFall Risk ScreeningProKindred Hospital Limatart: 2016 PNEUMOVAX AGE 65 AND OVER WITH 5YR LOOKBACK (#1)PNEUMOVAX AGE 65 AND OVER WITH 5YR LOOKBACK (#1)[facility]: 07-01-2016Medicare Annual Wellness Visit Medicare Annual Wellness VisitMorrow County Hospitaltart: 60-12-9487QYV Vaccine (1 - 1-dose 60+ series)RSV Vaccine (1 - 1-dose 60+ series)[facility]: 64-80-7036KTD Vaccine (1 - Risk 60-74 years 1-dose series)RSV Vaccine (1 - Risk 60-74 years 1-dose series)[facility]: 52-69-8173RDKJLXNK VACCINE (1 of 2)SHINGRIX VACCINE (1 of 2)[facility]: 93-91-6771JBIPELLJC (FIT-DNA)COLOGUARD (FIT-DNA)[facility]: 11-35-5050Voiluiyaicf COLONOSCOPYMorrow County Hospitaltart: 74-66-3780WJZRRWELVU CANCER SCREENING COLORECTAL CANCER SCREENINGMorrow County Hospitaltart: 52-31-3058ZL COLONOGRAPHYCT COLONOGRAPHYMorrow County Hospitaltart: 61-10-6558XVSRU OCCULT BLOODFECAL OCCULT BLOODMorrow County Hospitaltart: 48-31-6451Yzcgvpqjy for malignant neoplasm of colon [facility]: 28-39-8187MZNJTQEOUJNCODUDUNTFUCDGEQGwwpfifci Clinic Start: 75-65-7559Sqlsj 1996 panel - Serum or PlasmaLipid ScreeningMorrow County Hospitaltart: 41-11-2887Nfdem panelLipid ScreeningMorrow County Hospitaltart: 52-42-3011DTBCC SCREENLIPID SCREENMorrow County Hospitaltart: 90-53-9298Oztwvkczwl acid therapyALPHA-1 ANTITRYPSIN DEFICIENCY SCREENINGMorrow County Hospitaltart: 95-85-9943Skqqsubnqoibwk of varicella zoster vaccineZoster (Shingles) Vaccine (1 of 2)[facility]: 23-71-7569JRzL,Tdap and Td Vaccines (1 - Tdap)DTaP,Tdap and Td Vaccines (1 - Tdap)[facility]: 52-61-3898Dwdyenahuhme Vaccine: 50+ (1 of 2 - PCV)Pneumococcal Vaccine: 50+ (1 of 2 - PCV)[facility]: 44-85-6502QVWNKCUQ VACCINE (1 of 2)SHINGRIX VACCINE (1 of 2)[facility]: 87-53-7861Efovt microalbumin profile [facility]: 88-85-3218Weaol BMI Follow Up PlanAdult BMI Follow Up PlanMission Family Health Centertart: 73-08-7321UGFFEN PCP TEAM CHRONIC DISEASE VISITANNUAL PCP TEAM CHRONIC DISEASE VISITMorrow County Hospitaltart: 1968 Anxiety ScreeningAnxiety ScreeningMorrow County Hospitaltart: 50-20-9667LI CONTROLLED (<130/80)BP CONTROLLED (<130/80)[facility]: 93-33-3075Qvpfykydp B surface antibody levelLDL CHOLESTEROLMorrow County Hospitaltart: 94-30-2428ILZAVMMAT C SCREENINGHEPATITIS C SCREENINGMorrow County Hospitaltart: 93-32-6634Pehyfaikx C screeningHepatitis C ScreeningMorrow County Hospitaltart: 85-29-0429CVPIDRSLTP SPIROMETRYMorrow County Hospitaltart: 08-71-7881Cwizrrgwwx ScreeningDepression ScreeningMission Family Health Centertart: 61-76-1842Olieenjpvvuj Vaccine: 65+ (1 - PCV)Pneumococcal Vaccine: 65+ (1 - PCV)[facility]: 1956 Pneumococcal Vaccine: 65+ (1 of 2 - PCV)Pneumococcal Vaccine: 65+ (1 of 2 - PCV) [facility]: 89-22-3405Waofnbmghybn Vaccine: 65+ Years (1 - PCV) Pneumococcal Vaccine: 65+ Years (1 - PCV)[facility] 1956 Pneumococcal Vaccine: 65+ Years (1 of 2 - PCV)Pneumococcal Vaccine: 65+ Years (1 of 2 - PCV)[facility]Start: 72-83-2694VSBANNDFMWOU: 65+ (1 - PCV) PNEUMOCOCCAL: 65+ (1 - PCV)[facility]: 85-43-8478SEWHD-19 VACCINE (#1)COVID-19 VACCINE (#1)[facility]: 14-04-9314NOXXX-19 VACCINE (1) COVID-19 VACCINE (1)[facility]: 80-72-2200OLZXE-19 VACCINE (#1)COVID- 19 VACCINE (#1)[facility]: 44-26-3228ZBMHXZFDO AORTIC ANEURYSM SCREENINGABDOMINAL AORTIC ANEURYSM SCREENINGMorrow County Hospitaltart: 1950 Abdominal aortic aneurysm screeningAbdominal Aortic Aneurysm ScreeningMorrow County Hospitaltart: 1951Medicare Annual Wellness VisitMedicare Annual Wellness VisitMission Family Health Centertart: 67-43-6142Ekwlxumui for malignant neoplasm of colonNOMS HealthcareStart: 67-53-6988Mmiusv Use: CardiovascularStatin Use: CardiovascularProMercy Health St. Anne Hospital SystemStart: 30-45-0431Mnaazff CounselingTobacco CounselingSelect Medical Specialty Hospital - Cincinnati NorthBiopsy liver needle percutaneousIMAGING GUIDED BIOPSY LIVER Radiology Routine Cancer of trachea, bronchus, and lung (HCC) Liver mass, right lobe Ordered: 12/17/2021[facility] Work Phone: Comment on above:Ordered: 12/17/2021 End: 44-33-4065KF Chest W contrast IVCT CHEST W IVCON Radiology Routine Malignant neoplasm of unspecified part of unspecified bronchus or lung (HCC) 1 Occurrences starting 05/08/2025 until 06/07/2026[facility] Work Phone: Comment on above:1 Occurrences starting 05/08/2025 until 06/07/2026 End: 30-24-2500Vdrrewaax function test Spirometry (Flow Volume Loop) pre/post short acting bronchodilatorPulmonary function test Spirometry (Flow Volume Loop) pre/post short acting bronchodilator PFT Routine Chronic obstructive pulmonary disease, unspecified COPD type ([facility]) 1 Occurrences starting 10/10/2024 until 10/10/2025[facility] Work Phone: Comment on above:1 Occurrences starting 10/10/2024 until 10/10/2025[facility] Payers DatePayer CategoryPayerPolicy [id number] 2021MedicaidMEDICAID [facility] MEDICAID [id number] 2021-Present [phone] [address] [place] [address] [id number] 2018Medicaid [id number] 2016MedicareMEDICARE MEDICARE A AND B [id number] 2016-Present [phone] [address] [place] [address] [id number]. [id number] [id number] [id number] ..1.349721.3.57[id number] .1.870249.3.57[id number] ..1.096821.3.57[id number] ..1.806380.3.57[id number] 2..1.059953.3.57[id number] 2.16.840.1.088055.3.57[id number] 2.16.840.1.699310.3.579.2.952986-43-6146Bmnwjqh6852237 2.16.840.1.463008.3.579.[id number] 2.16.840.1.325517.3.57[id number] 2.16840.1.370671.3.579.2.[id number] 2.16840.1.733061.3.579.2.672128-02-2571Qtszper381489130 2.840.1.855960.3.579.[id number] 2.16840.1.960149.3.579.[id number] 2.16840.1.328054.3.579.2.490[id number] 2.16840.1.293493.3.579.2.[id number] 2.840.1.256329.3.579.2.17[id number] 2.840.1.039734.3.579.[id number] 2.16840.1.598887.3.579.2.[id number] 2.16840.1.167328.3.579.2.[id number] 2.16.840.1.38[id number] 2.16.840.1.346623.3.579.2.531 Social History DateTypeDetailFacilityStart: 01-12-2021 End: 20-16-8319Qfxgjfb smoking status NHISSmokes tobacco dailyAcmc Healthcare System Start: 83-20-6943Adaavus of tobacco useCigarette SmokerMorrow County Hospitaltart: 01-12-2021 End: 98-52-2712Ipyprqmesg smoked current (pack per day) - Vsbkyenn9Hvmdnbaxs ClinicStart: 01-12-2021 End: 96-64-8324Gjpbvra use and exposureSmokeless tobacco non-userMorrow County Hospitaltart: 10-29-2021 End: 17-42-7562Rqpknaj intakeEx-drinker (finding)[facility]: 49-59-6414Cju Assigned At BirthNot on fileMorrow County Hospitaltart: 09-22-2021 End: 68-45-9407Yfwizzqd to SARS-CoV-2 (event)Not sureMorrow County Hospitaltart: 04-18-2022 End: 42-15-1079Nlxonms smoking status NHISSmoker (finding)[facility]: 54-61-7012Rig [facility] CenterHistory of tobacco usePassive smokerMorrow County Hospitaltart: 01-04-2023 End: 68-27-9142Kpiguhu use panelMorrow County Hospitaltart: 01-05-2021 End: 15-80-3407Tgfmw Depression Screening Rccdldwfwq8Rolyqdbmz ClinicWithin the last year, have you been afraid of your partner or ex-partner?NoNOMS Healthcare Are you now , , , , never or living with a partner?DivorcedNOMS HealthcareHow often to you have a drink containing alcohol?NeverNOMS HealthcareHow hard is it for you to pay for the very basics like food, housing, medical care, and heatingSomewhat hardNOMS HealthcareDo you feel stress - tense, restless, nervous, or anxious, or unable to sleep at night because yourmind is troubled all the time - these days [OSQ]Rather muchNOMS Healthcare(I/We) worried whether (my/our) food would run out before (I/we) got money to buy more.Never trueNOMS HealthcareStart: 04-07-2015 End: 31-41-4042KthSetj (finding)[facility] Goals DatePatient GoalDesired Activity/State Functional Status XrjyRkvodbmexhZywkbiOgwixarp21-14-0033Olunq score [AUDIT-C][facility]06-11-2025Patient Health Questionnaire 2 item (PHQ-2) [Reported][facility] Memorial HealthcareTvskqhvhna38-46-2848Tooqrnd Health Questionnaire 2 item (PHQ-2) [Reported][facility] Memorial HealthcareLfewhzmyoo73-36-1252Zbogqok Health Questionnaire 2 item (PHQ-2) [Reported][facility] Mental Status DateAssessmentResultMorristown Medical Center Clinical Notes 10-22-2021 to 07-10-2025 Note Date & ZhayMxgnRejdcjda99-71-2634 Hospital Discharge instructionsAmbulatory Orders* AMB POC Ur Dipstick Time Frame: 07/10/25, Location: Determined By Patient [facility] Work Phone: [phone] NoteHNO ID: [id number] Author: LINETTE BAI MD Service: ? Author Type: Physician Type: Progress Notes Filed: 06/28/2025 12:04 Note Text: NAME: Doc Burns CLINIC NO.: [id number] DATE OF SERVICE: June 27, 2025 (Zac) Some elements in this clinic note that are critical to medical decision making have been carefully reviewed and included from a prior clinic note dated: May 08, 2025 (Rick). Referring Provider: Dr. Shaikh Etienne Additional Clinicians involved in Doc Burns's care: Richard Lentz DO DIAGNOSIS: lung cancer CASE SUMMARY / ASSESSMENT: 75 year old gentleman diagnosed with early stage [...] 6-month gap between resection and presentation to nm. He remains at high risk because of [...] needed further evaluation which turned up benign. SUMMARIZED PLAN OF CARE: CT Chest w/ con - 11 weeks RTC in 12 weeks AI ASSISTED A/P: 1. Lung nodules (R91.8) 2. Malignant neoplasm of unspecified part of unspecified bronchus or lung (HCC) (C34.90) 3. Personal history of malignant neoplasm of bronchus and lung (Z85.118) Recent imaging showed right upper lobe collapse, which is not applicable due to prior resection. Multiple pulmonary nodules noted, with some increasing in size up to 9 mm; these have fluctuated over time. - Continue serial CT chest imaging every few months to monitor nodule progression; next scan in 11 weeks. - Follow-up in 12 weeks to review imaging results. - Will contact radiologist to clarify context of right upper lobe findings. 4. Personal history of nicotine dependence (Z87.891) Patient continues to smoke approximately half a pack per day. - Discussed ongoing smoking habits. CASE HISTORY: Reverse Chronological Order 06/19/2025 - CT Chest : 1. Newly apparent right upper lobe collapse, [...] apparent subacute/healing fractures involving multiple left ribs. 04/17/2025 - CT Chest wo: 1. Small left pleural effusion. 2. Left lower lobe consolidation and/or collapse 3. 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 4. The ascending aorta measures 4.8 cm. 5. Nondisplaced fractures of the left lateral 5-8 ribs. #6 centrilobular emphysema and patchy groundglass opacities in the lungs. 6. Peripheral nodule in the left upper lobe on axial slice #95, could be benign or malignant, recommend follow-up chest CT in 2-3 month. 04/13/2025 -CT abdomen and pelvis Multiple acute left rib fractures involving the left 6th, 7th and 8th ribs. Comminuted left clavicular fracture involving the coracoid process. Small left hemothorax w (more content not included)...[facility] 06-19-2025 NoteHNO ID: [id number] Author: CHARLA WORRELL RT(R) Service: ? Author Type: Technologist Type: Progress Notes Filed: 06/19/2025 14:27 Note Text: Radiology Service Progress Note PATIENT NAME: Doc Burns DATE OF SERVICE: June 19, 2025 TIME: 2:27 PM PATIENT IDENTITY VERIFICATION COMPLETED USING TWO [...] PATIENT PRESENTS WITH AN IMPLANTABLE OR ATTACHED COOPERATIVE MANAGER: No RADIOLOGY DEPARTMENT: CT; Exam(s) Completed: Chest. Anesthesia: No PERIPHERAL IV DATA: Site assessment: Clean,Dry and Intact, Site disposition Discontinued SIGNED BY: RT Darius(R) June 19, 2025 2:27 [facility]10-16-2025 NoteHNO ID: [id number] Author: CHLOE IVEY RN Service: ? Author Type: Registered Nurse Type: Progress Notes Filed: 06/19/2025 13:56 Note Text: Radiology Service Progress Note DATE OF SERVICE: June 19, 2025 TIME: 1:55 PM PATIENT WEIGHT: 164LBS PATIENT IDENTITY VERIFICATION COMPLETED USING TWO (2) [...] RESULTS: POC done: Yes, See Lab Tab June 19, 2025 TREATMENT: N/A IV SITE: Ambulatory: A peripheral IV was started in the Right antecubital site with a Angio cath: 22 gauge. IV SITE APPEARANCE: Clean,Dry and Intact SIGNATURE: Chloe Ivey RN PATIENT NAME: Doc Burns DATE: June 19, 2025 TIME: 1:55 [facility]10-06-2025 NoteUT Cardiology - [facility] Subjective Doc Burns is a 75 y.o. year old male patient being seen for heart pains per his sister. Patient states he feel down the stairs on the 13 of April. Patient states he fell backward due to dizziness. Patient states he was sent to [facility] trauma. Patient states he broke 3 ribs and punctured his lung on left side, broke left shoulder. Patient states he started having chest pain after he got out of the hospital. Chest pain occurs with and without activity, patient states its an ache type of pain. Patient is worried he might have damaged his aneurysm, SOB, ZHAO, fatigue, weight loss and palpitations. Patient Active Problem List Diagnosis Aneurysm of [...] reflux disease) Head trauma Left leg pain Displaced fracture of coracoid process of left shoulder with routine healing Family History Problem Relation Name Age of Onset Diabetes Mother Heart disease Mother Heart disease Father Coronary artery disease Sister Social History Tobacco Use Smoking status: Every Day Current packs/day: 1.00 Types: Cigarettes Smokeless tobacco: Never Substance Use Topics Alcohol use: Yes Comment: occasional Drug use: Never HPI Doc is seen in follow-up. He is a [...] CABG, Multivessel CAD s/p CABG per Dr Arndt, Thoracic aneurysm, LV thrombus, Severe AO stenosis s/p valve replacement, Lung mass and pleural effusion s/p thoracentesis. AJAY during surgery did not show LV thrombus therefore CT surgeon Dr. Arndt discontinued anticoagulation. Pulmonary and oncology were both [...] lobectomy for lung cancer on 09/24/2020 [facility] with Dr. Arndt. He was admitted to the [facility] in February 2021 with atypical chest pain. He ruled out for myocardial infarction by high-sensitivity troponin. He was admitted on 10/24/2021 to the [facility] with decompensated heart failure and COPD exacerbation. [...] April 2023 he was evaluated in the [facility] emergency room because of worsening shortness of breath. D-dimers were elevated and a CT of the chest showed no pulmonary embolism and the ascending aortic aneurysm measured at 4.0 cm. I last saw him in the office on 03/31/2025 and due to symptoms of chest pain and shortness of breath I checked a stress test that showed no evidence of ischemia. In April 2025 he sustained a mechanical fall and ended up with broken ribs and left Hemothorax. He has been recovering from that admission. He reports that he has been having left-sided chest pain localized to the periauricular area. The pain lasts about 1 minute. It is a shooting pain. On further questioning today the pain is related to deep breathing. of note his recent blood work has shown elevated potassium at 5.3. He takes potassium chloride 10 mill equivalent (more content not included)...[facility]09-25-2025 History of Present illness Narrative* Richard Lentz, DO - 05/29/2025 8:45 AM EDT Images from the original note were not included. [facility] Progress Note Patient - Doc Burns Age - 75 y.o. - 1950 ASSESSMENT 1. Dyspnea on [...] 6. AAA 7. Tobacco use 1ppd PLAN Repeat CT scan of the chest already plan as per his oncologist in June Recent PFT data from February reviewed without any significant change and no evidence of chronic obstruction Continue Trelegy, p.r.n. albuterol and p.r.n. aerosols Daily walking and exercise program Tobacco cessation is encouraged but presently no plans to quit Age-appropriate routine vaccination advised Return to clinic in 6 months or earlier if needed SUBJECTIVE Mr. Burnspresents for follow-up of his COPD, tobacco use, multiple pulmonary nodules. He followsvery closely was [facility] oncology. He has previously had bronchoscopy with lavage, workup with positive TB QuantiFERON gold back in 2021 but BAL culture was negative. He had hospitalization over the summer at [facility] after transfer from [place]. He had a fall while attempting to carry up his electric bike up a set of stairs. He fell and then the electronic bike fell on top of him. He endedup with left-sided rib fractures #5-8 along with pulmonary contusions. No pneumothorax requiring chest tube. He did have some atelectasis on imaging and some patchy ground-glass opacities in the setting of the pulmonary contusions. He reports since hospital discharge he is doing much better. He is back to respiratory baseline. He uses Trelegy once a day and uses rescue albuterol inhaler twice perday in additional aerosols if needed. No recent respiratory infections or need for antibiotics or steroids since last office visit. He continues to follow closely with [facility] Oncology and reports that he already has a repeat CT scan anticipated in June VITALS BP 111/62 Pulse 57 Ht 167.6 cm (5' 5.98 ) Wt 74.5 kg (164 lb 4.8 oz) SpO2 96% BMI 26.53 kg/m Exam General: Alert, oriented, no acute distress, nontoxic Chest: Clear to auscultation bilaterally without any crackles, wheezes, rhonchi. Normal AP diameter. CV: Regular rate regular rhythm Extremities: No edema, erythema, distal cyanosis, clubbing Integumentary: Warm and dry. No rash or lesion Neuro: No lateralizing deficits. No tremors Meds Medications Reviewed. Lab Results PFT Results Radiology CT of the chest with contrast dated 04/17/2025 at 11:32 AM INDICATION: Hemothorax, pleural effusion. PROCEDURE: Automatic radiation exposure lowering techniques were utilized. All CT scans at this facility use dose modulation, iterative reconstruction, and/or weight based dosing when appropriate to reduce radiation dose to as low as reasonably achievable.. Following the intravenous injection of 100 mL of Omnipaque, a CT of the chest and sagittal and coronal reformats obtained. FINDINGS: Comparison is CT dated 04/13/2025. Small left pleural effusion and left lower lobe consolidation/collapse. Patchy groundglass opacities in the lungs. Centrilobular emphysema. Median sternotomy and coronary artery bypass surgery. The ascending aorta measures 4.8 cm. Aortic valve replacement and atrial appendage Clip in place. Nondisplaced fractures of the lateral left fifth through eighthribs. Nodule in the anterior left upper lobe on axial slice #95 measuring 1.2 cm, could be benign or malignant, recommend follow-up chest CT in 2-3 months per Fleischner criteria. IMPRESSION: 1. Small left pleural effusion. 2. Left lower lobe consolidation and/or collapse 3. 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 4. The ascending aorta measures 4.8 cm. 5. Nondisplaced fractures of the left lateral 5-8 ribs. #6 centrilobular emphysema and patchy groundglass opacities in the lungs. 6. Peripheral nodule in the left upper lobe on axial slice #95, could be benign or malignant, recommend follow-up chest CT in 2-[address] Richard Lentz DO. [facility] Pulmonary [facility] Critical Care Office: [phone] documented in this [facility]3]09-24-2025 Evaluation note* Diagnosis Onset Date Resolution Status Admit Date Adenocarcinoma of right lung acuteSeptember 2024 5:17pmEssential hypertensionacuteSeptember 2024 5:17pmHemothorax on leftacuteSeptember 2024 5:17pmMajor depression, recurrentacuteSeptember 2024 5:17pmMultiple fractures of ribsacute May 28, 2025 5:17pmNicotine dependenceacuteSeptember 2024 5:17pm Nondisplaced fracture of coracoid process of left shoulderacuteSept2024 5:17pmAdenocarcinoma of right lungacuteNov2024 1:27pmCAD in [place] arteryacuteNov2024 1:27pmChronic systolic heart failureacute July 10, 2025 1:27pmCOPD (chronic obstructive pulmonary disease)acute July 10, 2025 1:27pmEssential hypertensionacuteJuly 10, 2025 1:27pm Multiple fractures of ribsacuteNovember 2024 1:27pmNicotine dependenceacute November 2024 1:27pmUTI symptomsacuteNov2024 1:27pm [facility] Work Phone: 1(971) 127-217109-04-2025 Telephone encounter Note* Telephone Encounter - Jasen Laughlin - 05/08/2025 4:36 PM EDT Patient refused Pain Management referral at this time. States he has other therapists involved. Notified patient to let us know when he is ready to be referred and where. Patient verbalized understanding. Jasen Laughlin [facility]09-04-2025 Miscellaneous Notes* Telephone Encounter - Jasen Laughlin - 05/08/2025 4:36 PM EDT Patient refused Pain Management referral at this time. States he has other therapists involved. Notified patient to let us know when he is ready to be referred and where. Patient verbalized understanding. Jasen Laughlin documented in this encounterAcmc Healthcare System09-04-2025 History of Present illness Narrative* Glenna Ramirez APRN.CNP - 05/08/2025 2:40 PM EDT Images from the original note were not included. NAME: Doc Burns CLINIC NO.: [id number] DATE OF SERVICE: May 08, 2025 (Rick) Some elements in this clinic note that are critical to medical decision making have been carefully reviewed and included from a prior clinic note dated: February 06, 2025 (Zac) Referring Provider: Dr. Shaikh Etienne Additional Clinicians involved in Doc Burns's care: Richard Lentz DO DIAGNOSIS: lung cancer CASE SUMMARY / ASSESSMENT: 75 year old gentleman diagnosed with early stage [...] needed further evaluation which turned up benign. SUMMARIZED PLAN OF CARE: Morphine 5 mg IV today Oxycodone IR 10 mg TID - #42 Referral to pain management RTC in [address] Chest in 6 weeks prior to visit Continue follow up with GI - next in April CASE HISTORY: Reverse Chronological Order 04/17/2025 - CT Chest wo: 1. Small left pleural effusion. 2. Left lower lobe consolidation and/or collapse 3. 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 4. The ascending aorta measures 4.8 cm. 5.Nondisplaced fractures of the left lateral 5-8 ribs. #6 centrilobular emphysema and patchy groundglass opacities in the lungs. 6. Peripheral nodule in the left upper lobe on axial slice #95, could bebenign or malignant, recommend follow-up chest CT in 2-3 month. 04/13/2025 -CT abdomen and pelvis Multiple acute left rib fractures involving the left 6th, 7th and 8th ribs. Comminuted left clavicular fracture involving the coracoid process. Small left hemothorax with left pulmonary contusion. Near complete collapse of the right upper and middle lobes, likely chronic. No evidence of acute traumatic abnormality within the abdomen or pelvis. 04/13/2025 -CT head No acute intracranial hemorrhage. Left frontal scalp contusion and laceration without underlying calvarial fracture. Senescent changes with chronic microvascular ischemic changes and global cerebral volume loss. 04/13/2025 -CT cervical spine No acute cervical spine fracture. 04/14/2025 - Admitted after a fall for hemothorax, fractured ribs. 01/30/2025 - CT CAP: Chest: Improved aeration [...] are again identified, several of which appear increasedin size, several of which have decreased in [...] below PET resolution stable. 05/30/2023 - EGD ([facility]): Duodenum: Mild bulbar duodenitis, otherwise normal. Stomach: [...] Fat-containing right inguinal hernia. 04/22/2021 - Colonoscopy ([facility]): Large blanketing polyp ascending, removed with a [...] right apical mass and no other disease. HPI: Updated Visit, May 08, 2025: In early April, the patient experienced a fall down approximately nine steps, reportedly due to dizziness, resulting in injuries to the left shoulder and ribs. He was initially evaluated at [facility] and then transferred to [facility]. Imaging revealed fractured ribs and a pneumothorax, but no chest tube was placed. He was hospitalized for 11 days and was seen by an orthopedic surgeon, who did not recommend surgery. He was prescribed oxycodone 5 mg, initially instructed to take one tablet three times daily. However, due to inadequate pain relief, he has been taking two tablets at a time, up to three tablets daily. He reports persistent pain in the shoulder, ribs, and back, which he attributes to both the fall and pre-existing spinal arthritis. He also notes a visible bone protrusion in the shoulder area. He denies significant respiratory issues but mentions that breathing is not real good. He is under the care of his primary provider, CHELLE Guadalupe, and has a follow-up appointment scheduled on the of this month. He is also receiving home therapy. Patient was seen by Dr. Mac Robins, orthopedics on 05/06/2025 for history of close displaced fracture of coracoid process of left shoulder. Conservative management recommended. Recommended NSAIDs and Tylenol. Recommendations was that he requires <7 days of narcotic duration based on the injury and pain treatment needs. Notes reviewed from admission to [facility] Admission Date: 04/14/2025 3:10 AM Attending Physician: Igor Steel DO Date of 1950 Hospital Day: 7 day(s) Doc Burns is a 75 y.o. male with past medical history of CAD status post stent, COPD, diabetes, hypertension, active lung cancer not on chemotherapy, and continued tobacco use, brought in by EMS from [place] after attempting to carry an electric bike up the stairs and subsequently falling backwards. Patient states he was attempting to climb approximately 14 stairs when he lost his balance and fell backwards. He notes the electric bike landed on his chest and left side. The bike weighs approximately 100 lb. Patient denies loss of consciousness. Patient is on aspirin and clopidogrel. Upon presentation to [place], patient was found to have multiple left-sided rib fractures,small left hemothorax and pulmonary contusion, and left scapular fracture. At [place], CT brain and CT cervicalspine were negative for any acute pathology. Per EMS, patient's SpO2 was trending downward over time and was placed on 6 L O2 nasal cannula. Patient does not have an oxygen requirement at baseline. Additionally, patient has had soft blood pressures with systolic in the 90s, he was given 1 L of normal saline. EMS states that patient also received ketamine 40 mg over 30 minutes at approximately 2:00 a.m. with improvement of his pain. Presently, patient reports left shoulder pain, left chest wall pain which is exacerbated by deep inspiration, and left abdominal pain. Otherwise, patient denies headache, changes in vision, dizziness, neck pain, anterior chest pain, shortness of breath, nausea, vomiting, numbness tingling or weakness of the extremities. Patient endorses smoking 3/4 of a pack ofcigarettes per day. Otherwise denies ETOH and additional drug use. Updated Visit, February 06, 2025: Jose Angel, is alone without sister Maria Teresa, son Bari Patient with a history of cancer presents [...] liver appears benign. Abdominal imaging shows no newconcerning findings. He is currently under the care of a welder setter electron beam machine for duodenal issues, which have been confirmed as benign. He reports ongoing abdominal cramping that occurs independently of meals and is partially managed with Levsin 290 mg. He is scheduled to see his welder setter electron beam machine in April. Recent lab work shows low vitamin B12 levels, though he is not currently anemic. He is also under the care of a steam drier tender and has an upcoming echocardiogram scheduled for this month. Updated Visit, November 07, 2024: Doc returns for a follow up. Final reading [...] He continues to smoke but is otherwise athis baseline state of health. Sister is having cardiac workup and could be here with him. Still taking Linzess for constipation. Updated Visit, April 18, 2024: Returns alone today and CT is pending read. Doing well otherwise but continues to gain weight. Updated Visit, March 01, 2024: Doc returns with his sister, Maria Teresa. Recent [...] last visit. Updated Visit, November 17, 2023: Doc returns today with Bari. CT shows significant [...] weight gain. Updated Visit, August 11, 2023: Doc returns today for follow up, says he is hanging in there. He has gained weight, but reports that he has not been eating nearly as much. Had his EGD done on 05/30/2023. Results: gastritis. Positive stool test showing H. Pylori. PET last week looks good. It was recommended he follow up with [facility] for next imaging due to the small [...] not anemic. Updated Visit, May 05, 2023: Doc returns with his Sister Maria Teresa today and seems to be doing well. He is in good spirits. PET/CT was reviewed Shows improvement of bilateral pulmonary nodules. However the abdomen and pelvis demonstrate persistent uptake at the distal stomach/proximal duodenum and likely needs upper endoscopy. Updated Visit, March 03, 2023: Doc returns with his son during and his [...] 2022: Telephone only for 5 mins Called Doc as requested. Reviewed findings of liver resection [...] him today. Updated Visit, June 25, 2021: Doc Burns returns for follow up. There has [...] of himself that he can. 04/22/2021 Colonoscopy ([facility]) Results scanned to [facility] 06/04/2021 Updated Visit, February 05, 2021: Doing well overall but still smokes. We reviewed his CT scans from 02/01/2021 which shows no evidence of recurrent diseaes but will need follow up for bilateral small pulmonary nodules. Initial Visit, January 13, 2021: Doc Burns presents today for Hematology and Oncology [...] colonoscopy. PATHOLOGY/MOLECULAR DATA 01/10/2022 Partial liver resection: [id number] Order: [id number] Collected 01/10/2022 11:56 AM Status: Final result [...] A3-A4 remainderof specimen. Gross examination performed at [facility] [address] IA# [id number] [facility] January 12, 2022 9:23 AM REVIEW OF SYSTEMS Per HPI and otherwise negative by full review of organ systems. ECOG PERFORMANCE STATUS: 1 PHYSICAL EXAMINATION: Vitals: BP 121/74 Pulse 64 Temp (Src) 97.8 (Temporal) Resp 16 Ht 5' 5.984 (1.68m) Wt 166lb 7.2 oz (75.5kg) SpO2 98% BMI 26.88 kg/(m^2). Body surface area is 1.87 meters squared. Exam limited to gross visualization [...] Take 50 mg by mouth once daily. Cyanocobalamin-Cobamamide (B-12 PLUS) 5,000-100 mcg subl Dissolve [...] DAILY LABORATORY VALUES: WBC (k/uL) Date Value 01/30/2025 [...] (U/L) Date Value 01/30/2025 8 (L) DIAGNOSIS: (C34.90) Malignant neoplasm of unspecified part of unspecified bronchus or lung (HCC) (primary encounter diagnosis) (W10.9XXD) Fall (on) (from) unspecified stairs and steps, subsequent encounter (S22.42XD) Multiple fractures of ribs, left side, subsequent encounter for fracture with routine healing (M54.6) Pain in thoracic spine PAST MEDICAL HISTORY Diagnosis Date CAD (coronary [...] Cancer Sister I spent a total of 40 minutes on the date of the service which included preparing to see the patient, [id number] patient care, completing clinical documentation, performing a medically appropriate examination, counseling and educating the patient/family/caregiver, ordering medications, tests, or p rocedures, communicating with other HCPs (not separately reported), independently interpreting results (not separately reported), and communicating results to the patient/family/caregiver. Glenna Ramirez APRN.CNP Hematology and Oncology Services Provided at: [place], [place] CC: Richard Carlin documented in this encounterA[facility]c [facility]09-04-2025 NoteHNO ID: [id number] Author: GLENNA RAMIREZ APRN.CNP Service: ? Author Type: Nurse Practitioner Type: Progress Notes Filed: 05/09/2025 19:42 Note Text: NAME: Doc Burns [facility] NO.: [id number] DATE OF SERVICE: May 08, 2025 (Rick) Some elements in this clinic note that are critical to medical decision making have been carefully reviewed and included from a prior clinic note dated: February 06, 2025 (Zac) Referring Provider: Dr. Shaikh Etienne Additional Clinicians involved in Doc Burns's care: Richard Lentz DO DIAGNOSIS: lung cancer CASE SUMMARY / ASSESSMENT: 75 year old gentleman diagnosed with early stage [...] needed further evaluation which turned up benign. SUMMARIZED PLAN OF CARE: Morphine 5 mg IV today Oxycodone IR 10 mg TID - #42 Referral to pain management RTC in [address] Chest in 6 weeks prior to visit Continue follow up with GI - next in April CASE HISTORY: Reverse Chronological Order 04/17/2025 - CT Chest wo: 1. Small left pleural effusion. 2. Left lower lobe consolidation and/or collapse 3. 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 4. The ascending aorta measures 4.8 cm. 5. Nondisplaced fractures of the left lateral 5-8 ribs. #6 centrilobular emphysema and patchy groundglass opacities in the lungs. 6. Peripheral nodule in the left upper lobe on axial slice #95, could be benign or malignant, recommend follow-up chest CT in 2-3 month. 04/13/2025 -CT abdomen and pelvis Multiple acute left rib fractures involving the left 6th, 7th and 8th ribs. Comminuted left clavicular fracture involving the coracoid process. Small left hemothorax with left pulmonary contusion. Near complete collapse of the right upper and middle lobes, likely chronic. No evidence of acute traumatic abnormality within the abdomen or pelvis. 04/13/2025 -CT head No acute intracranial hemorrhage. Left frontal scalp contusion and laceration without underlying calvarial fracture. Senescent changes with chronic microvascular ischemic changes and global cerebral volume loss. 04/13/2025 -CT cervical spine No acute cervical spine fracture. 04/14/2025 - Admitted after a fall for hemothorax, fractured ribs. 01/30/2025 - CT CAP: Chest: Improved aeration [...] 11/07/2024 - CT CAP: Chest: Several bilateral s (more content not included)...[facility]09-02-2025 History of Present illness Narrative* Mac Robins MD - 05/06/2025 12:45 PM EDT CC: left shoulder injury Subjective: HPI DOI: 04/13/25 3 weeks out Doc Burns is a 75 y.o. male, right hand dominant, who is here today for a follow-up visit. Per ED chart review, the patient was carrying an E bike up the stairs when he lost his balance and fell. He presented to [place] ED where he was diagnosed with a fracture of the coracoid process of thescapula. The patient has been nonweightbearing on the left upper extremity with a sling for comfort. He also has left-sided rib fractures, left hemothorax, and left pulmonary contusion. The patient is on baseline Plavix. Past Medical, Surgical, and Family Histories: were reviewed during this visit. Social History Occupational History Not on file Tobacco Use Smoking status: Every Day Current packs/day: 0.50 Average packs/day: 0.5 packs/day for 40.1 years (20.0 ttl pk-yrs) Types: Cigarettes Start date: 04/14/1985 Smokeless tobacco: Never Vaping Use Vaping status: Never Used Substance and Sexual Activity Alcohol use: Not Currently Drug use: Never Sexual activity: Defer Medications & allergies: were reviewed at during this visit. Objective: Physical Exam General: Well-developed well-nourished Mentation: Alert and oriented. Extremity Exam: Left Shoulder Inspection: Skin C/D/I Bruising - no significant ecchymosis Wounds - none ROM: Able to actively flex the shoulder to approximately 150 Neurovascular Motor: intact axillary, radial, median, ulnar Sensation: intact to light touch axially, radial, median, ulnar nerves Hand WWP IMAGING: I personally viewed X-ray images of left shoulder, which demonstrate: Displaced left coracoid fracture. Will review and confirm findings with the radiologist report when available. Diagnosis: Closed displaced fracture of coracoid process of left shoulder with routine healing, subsequent encounter Plan: Continue conservative management of the patient's left coracoid process fracture. Patient may progress to weight-bearing and range of motion as tolerated on the left upper extremity. Patient may wean out of his sling. Recommend NSAIDs and Tylenol as medically able to assist with pain control. He was provided a narcotic prescription and provided an education sheet regarding narcotic risks, benefits and addictive potential. An OARRS report was reviewed and was acceptable. In my clinical judgement, his requires >7 days of narcotic duration based on the injury and pain treatment needs. Discussed with the patient that this would be the last/only narcotic prescription that our office would be able to provide for him. All further narcotics will need to come from a PCP. Patient expressed understanding. Recommend calcium and vitamin-D supplementation to aid in bone health and healing. Follow up in the orthopedic office PRN. SAVI BAKER PA-C ORTHOPAEDIC SURGERY ATTENDING NOTE I, Mac Robins MD, personally performed the face to face evaluation on this patient. I discussed with the patient and confirmed the accuracy and completeness of the aforementioned history prepared by the [facility] practice provider, and I personally performed the clinical examination of thepatient. I discussed the treatment plan with the patient. THE PATIENT HAS EXCELLENT RANGE OF MOTION OF HIS LEFT SHOULDER. THE AREA OF HIS CORACOID IS NOT HURTING HIM. HE IS STILL HAVING SOME RESIDUAL PAIN ABOUT HIS CHEST AND RIBS HOWEVER. FROM MY STANDPOINT HE IS ASKING FOR A SMALL REFILL IN HIS NARCOTICS. I TOLD HIM I COULD DO THIS 1 TIME BUT ANY FURTHER NARCOTICS WOULD HAVE TO BE DONE FROM HIS PRIMARY CARE DOCTOR. I ENCOURAGED HIM TO WEAN HIMSELF COMPLETELY FROM THE NARCOTICS AND IF HE NEEDS PAIN MEDICATION TO TAKE TYLENOL AND NONSTEROIDAL ANTI- INFLAMMATORY AGENTS. AT THIS POINT I CAN SEE HIM BACK ON AN -NEEDED BASIS IF ANY SPECIFIC ISSUES OCCUR. MOISÉS ROBINS MD documented in this encounterNorthwestern Medical CenterBTI Systems [id number] Instructions* Patient Instructions* Savi Baker PA-C - 05/06/2025 12:45 PM EDT Patient Education Calcium and Vitamin D (LIS see david & GARRETT ryan) Brand Names: US Oziel-Citrate Plus Vitamin D [OTC]; Calcet Petites [OTC]; Calcitrate [OTC] [DSC]; Calcium 500/D [OTC] [DSC]; Calcium 600+D [OTC]; Calcium 600-D [OTC] [DSC]; Calcium Citrate + D3 Maximum[OTC]; Calcium High Potency/Vitamin D [OTC]; Calcium Plus Vitamin D [OTC]; Calcium+D3 [OTC]; Caltrat e 600+D3 Soft [OTC]; Caltrate 600+D3 [OTC]; Caltrate Gummy Bites [OTC]; [place]ater Calcium +D [OTC] [DSC]; Liquid Calcium with D3 [OTC]; Liquid Calcium/Vitamin D [OTC]; Os-Oziel Calcium + D3 [OTC]; Os-Oziel Extra D3 [OTC]; Os-Oziel [OTC]; Oysco 500+D [OTC]; Oyster Calcium + D [OTC] [DSC]; Oyster Shell Calcium + D [OTC]; Oyster Shell Calcium + D3 [OTC]; Oyster Shell Calcium 250+D [OTC]; Oyster Shell Bldgnac168 + D [OTC]; Oyster Shell Calcium 500+D [OTC]; Oyster Shell Calcium Plus D [OTC]; Oyster Shell Calcium/Vit D [OTC]; Pronutrients Calcium+D3 [OTC]; Sarah-Calcium [OTC] [DSC] What is this drug used for? It is used to help growth and good health. It is used to prevent or treat soft, brittle bones (osteoporosis). It is used to treat or prevent low calcium levels. It may be given to you for other reasons. Talk with the doctor. What do I need to tell my doctor BEFORE I take this drug? If you are allergic to this drug; any part of this drug; or any other drugs, foods, or substances. Tell your doctor about the allergy and what signs you had. If you have any of these health problems: High calcium levels, high vitamin D levels, kidney stones, or low phosphate levels. This is not a list of all drugs or health problems that interact with this drug. Tell your doctor and pharmacist about all of your drugs (prescription or OTC, natural products, vitamins) and health problems. You must check to make sure that it is safe for you to take this drug with all of your drugs and health problems. Do not start, stop, or change the dose of any drug withoutchecking with your doctor. What are some things I need to know or do while I take this drug? Tell all of your health care providers that you take this drug. This includes your doctors, nurses,pharmacists, and dentists. If you are allergic to tartrazine (FD&C Yellow No. 5), talk with your doctor. Some products have tartrazine. This drug may prevent other drugs taken by mouth from getting into the body. If you take other drugs by mouth, you may need to take them at some other time than this drug. Talk with your doctor. Follow the diet plan that your doctor told you about. If you have phenylketonuria (PKU), talk with your doctor. Some products have phenylalanine. Tell your doctor if you are , plan on getting , or are breast- feeding. You will need to talk about the benefits and risks to you and the baby. What are some side effects that I need to call my doctor about right away? WARNING/CAUTION: Even though it may be rare, some people may have very bad and sometimes deadly side effects when taking a drug. Tell your doctor or get medical help right away if you have any of thefollowing signs or symptoms that may be related to a very bad side effect: Signs of an allergic reaction, like rash; hives; itching; red, swollen, blistered, or peeling skin with or without fever; wheezing; tightness in the chest or throat; trouble breathing, swallowing, ortalking; unusual hoarseness; or swelling of the mouth, face, lips, tongue, or throat. Signs of high calcium levels like weakness, confusion, feeling tired, headache, upset stomach and throwing up, constipation, or bone pain. What are some other side effects of this drug? All drugs may cause side effects. However, many people have no side effects or only have minor sideeffects. Call your doctor or get medical help if any of these side effects or any other side effects bother you or do not go away: Upset stomach or throwing up. Constipation. These are not all of the side effects that may occur. If you have questions about side effects, call your doctor. Call your doctor for medical advice about side effects. You may report side effects to your national health agency. You may report side effects to the FDA at . You may also report side effects at https://www.fda.gov/medwatch. How is this drug best taken? Use this drug as ordered by your doctor. Read all information given to you. Follow all instructionsclosely. All products: Take this drug with food. Chewable tablets: Chew well before swallowing. Some brands may be swallowed whole or dissolved in your mouth. Talk toyour pharmacist if you have questions. Powder: Mix with food or liquids before taking. Liquid: Measure liquid doses carefully. Use the measuring device that comes with this drug. If there is none, ask the pharmacist for a device to measure this drug. Some of these drugs need to be shaken before use. Be sure you know if this product needs to be shaken before using it. What do I do if I miss a dose? Take a missed dose as soon as you think about it. If it is close to the time for your next dose, skip the missed dose and go back to your normal time. Do not take 2 doses at the same time or extra doses. How do I store and/or throw out this drug? All products: Store at room temperature in a dry place. Do not store in a bathroom. Keep all drugs in a safe place. Keep all drugs out of the reach of children and pets. Throw away unused or drugs. Do not flush down a toilet or pour down a drain unless you are told to do so. Check with your pharmacist if you have questions about the best way to throw out drugs. There may be drug take-back programs in your area. Liquid: After opening, be sure you know how long the product is good for and how to store it. Ask the doctor or pharmacist if you are not sure. General drug facts If your symptoms or health problems do not get better or if they become worse, call your doctor. Do not share your drugs with others and do not take anyone else's drugs. Some drugs may have another patient information leaflet. If you have any questions about this drug,please talk with your doctor, nurse, pharmacist, or other health care provider. Some drugs may have another patient information leaflet. Check with your pharmacist. If you have any questions about this drug, please talk with your doctor, nurse, pharmacist, or other health care provider. If you think there has been an overdose, call your poison control center or get medical care right away. Be ready to tell or show what was taken, how much, and when it happened. Consumer Information Use and Disclaimer This generalized information is a limited summary of diagnosis, treatment, and/or medication information. It is not meant to be comprehensive and should be used as a tool to help the user understand and/or assess potential diagnostic and treatment options. It does NOT include all information about conditions, treatments, medications, side effects, or risks that may apply to a specific patient. Itis not intended to be medical advice or a substitute for the medical advice, diagnosis, or treatment of a health care provider based on the health care provider's examination and assessment of a patient's specific and unique circumstances. Patients must speak with a health care provider for complete information about their health, medical questions, and treatment options, including any risks or benefits regarding use of medications. This information does not endorse any treatments or medications as safe, effective, or approved for treating a specific patient. [employer] and its affiliatesdisclaim any warranty or liability relating to this information or the use thereof. The use of thisinformation is governed by the Terms of Use, available at https://www.SocialMadeSimple.Zoodles/en/know/krmolaou-unyzrpeklacir-bqwet. Last Reviewed Date 2021-01-27 Copyright 2021 [employer] and its affiliates and/or licensors. All rights reserved. documented in this [facility])[3]08-30-2025 Miscellaneous Notes* Telephone Encounter - Shirley Gonzalez RN - 05/03/2025 4:03 PM EDT Contract: 17 Daughter calling to speak about pain medication, Wanting to have the Percocet refilled, Will call office on Monday Reason for Disposition Caller requesting a CONTROLLED substance prescription refill (e.g., narcotics, ADHD medicines) Protocols used: Medication Refill and Renewal Call-A- documented in this [facility]3]08-30-2025 Telephone encounter Note* Telephone Encounter - Shirley Gonzalez RN - 05/03/2025 4:03 PM EDT Contract: 16 Daughter calling to speak about pain medication, Wanting to have the Percocet refilled, Will call office on Monday Reason for Disposition Caller requesting a CONTROLLED substance prescription refill (e.g., narcotics, ADHD medicines) Protocols used: Medication Refill and Renewal Call-A-AH [facility]08-30-2025 Miscellaneous Notes* Telephone Encounter - Shirley Gonzalez RN - 05/03/2025 3:59 PM EDT Contract: 1 Opened in error call is a triage call documented in this [facility] Telephone encounter Note* Telephone Encounter - Shirley Gonzalez RN - 05/03/2025 3:59 PM EDT Contract: 1 Opened in error call is a triage call [facility]08-21-2025 History of Present illness Narrative* JEMMA Barboza - 04/24/2025 3:10 PM EDT To whom it may concern, I, JEMMA BARBOZA, on 04/24/25 have preformed a FACE TO FACE with Doc Burns and certify that the patient requires the following medical devices and therapies: Home Oxygen at 2L at rest and nocturnal via Nasal Cannula and 4L NC with ambulation related to diagnosis of COPD. Thank you, JEMMA BARBOZA APRN-CNP 04/24/25 [id number] JEMMA Barboza 04/24/25 1615 * Misty Rhodes RCP - 04/24/2025 1:43 PM EDT 04/24/25 1300 Patient Reported Home Oxygen Modality Used At Home None (Room air) Home Oxygen Qualification - Resting Method *Complete within 48 Hrs of Discharge SpO2 On Room Air At Rest 88 % Amount Of O2 Applied At Rest To Keep SpO2 >88% 2 L/min SpO2 On Applied O2 At Rest 95 % Home Oxygen Qualification - Exercise/Ambulation Method Amount Of O2 Applied During Exercise/Ambulation To Keep SpO2 >88% 4 L/min SpO2 On Applied O2 With Exercise/Ambulation 92 % O2 Requirements Are 4 Liters Or Greater? Yes SpO2 On 4L/min With Exercise/Ambulation 92 % Amount Of O2 Applied With Exercise/AmbulationTo Keep SpO2 >88% 92 L/min SpO2 On Applied O2 With Exercise/Ambulation 92 % Home O2 Support Method Of Delivery Nasal cannula Equipment Stationary oxygen system;Portable oxygen system #1 Liter Flow 2 LPM #1 Frequency With ambulation #2 Liter Flow 4 LPM DME DME Referral Patient qualifies;Needs home O2 Equipment Already In The Home None * Maday Najera RCP - 04/24/2025 1:43 PM EDTSummary: Home o2 Evaluation 04/24/25 1300 Patient Reported Home Oxygen Modality Used At Home None (Room air) Home Oxygen Qualification - Resting Method *Complete within 48 Hrs of Discharge SpO2 On Room Air At Rest 88 % Amount Of O2 Applied At Rest To Keep SpO2 >88% 2 L/min SpO2 On Applied O2 At Rest 95 % Home Oxygen Qualification - Exercise/Ambulation Method Amount Of O2 Applied During Exercise/Ambulation To Keep SpO2 >88% 4 L/min SpO2 On Applied O2 With Exercise/Ambulation 92 % O2 Requirements Are 4 Liters Or Greater? Yes SpO2 On 4L/min With Exercise/Ambulation 92 % Amount Of O2 Applied With Exercise/AmbulationTo Keep SpO2 >88% 4 L/min SpO2 On Applied O2 With Exercise/Ambulation 92 % Home O2 Support Method Of Delivery Nasal cannula Equipment Stationary oxygen system;Portable oxygen system;Can test for conserver to keeps sats >90%;Portable concentrator #1 Liter Flow 2 LPM #1 Frequency At rest #2 Liter Flow 4 LPM #2 Frequency With ambulation DME DME Referral Patient qualifies;Needs home O2 Equipment Already In The Home None * Maday Najera RCP - 04/24/2025 1:35 PM EDT Patient is a current smoker of tobacco, e-cigarettes, vaping or has used these tobacco/nicotine delivery devices within the last year. The patient was provided education on the dangers of smoking tobacco or any other nicotine delivery device, what happens to his/her body when using tobacco or any other nicotine device especially the damage it causes to their lungs. Discussed tips and strategies to help quit smoking when the patient is ready and willing to quit. The patient was given informationand referred to the [facility] smoking cessation classes available throughout the system and information with phone numbers for the [place] and [place] Quit lines. * JEMMA Joseph - 04/23/2025 2:30 PM EDT TRAUMA SURGERY - PROGRESS NOTE Patient: Doc Burns Date of : 1950 AGE 75 y.o. SEX male Assessment / Plan Doc Burns 75 y.o. male Injuries/Traumatic issues: 1. Traumatic fall - PT/OT 2. Hypoxia secondary to Left rib fractures -, hemothorax, pulmonary contusion COPD exacerbation -repeat chest x-ray -incentive spirometer -pain management -presently on 6 L nasal cannula with SpO2 93% -continue to monitor vitals and oxygen demand, patient is not on oxygen at home - patient with increased oxygen requirement, now on high flow - start IV steroids and antibiotics - schedule DuoNebs - IR consulted for left effusion- nothing to tap per IR - 04/20 high-flow weaned to nasal cannula - 04/22 patient more hypoxic on 5 L. Placed on mask. Unable to wean back to nasal cannula. High-flowordered. Chest x-ray. ABG 3. Left scapular fracture -x-ray left shoulder -consult ortho: Recommend nonoperative treatment, applying ice to affected areas, with weight-bearing restrictions 4. Tobacco use -patient endorses smoking 3/4 of a pack per day -patient was counseled on smoking cessation -patient was offered nicotine patch during hospital stay, declined at this time 5. Confusion and agitation (04/18) - became agitated overnight and received Haldol/Versed - Precedex drip - Seroquel - nighttime dose of Seroquel increased to 75 mg Comorbidities/Medical issues: Neuro- Pulm-history of lung cancer Cardio-CAD status post stent, hypertension, hyperlipidemia GI- - Heme- ID- MSK- Endo- Lytes- Lines and Tubes: Peripheral IV Pain control: Multimodal pain management Nutrition: Regular Prophylaxis: EPC cuffs, Lovenox Disposition: - PT/OT recommendation: SNF - Discharge plan: SNF - Barriers to discharge: Respiratory status/high flow - Level of care to be continued: Continue step-down management The patient will be monitored very closely at this time. He does have some hypoxia and will be placed back on high-flow. Could require ICU monitoring it some point Medical Decision Making: High Subjective No agitation overnight. Was weaned to 4 L nasal cannula last night and did well. No respiratory distress noted. Tolerating diet. Able to get 1250 on IS Objective Vital signs: Vitals: 04/23/25 0848 04/23/25 1141 04/23/25 1236 04/23/25 1244 BP: 132/68 Pulse: 56 57 58 56 Resp: 20 15 14 18 Temp: 36.7 C (98.1 F) TempSrc: Oral SpO2: 94% 93% 91% 94% Weight: Height: Temperature Range Last 24 Hours : Temp: 36.7 C (98.1 F) Temp Av.6 C (97.9 F) Min: 36.4 C (97.5F) Max: 36.9 C (98.4 F) Admit Weight: 93.4 kg (205 lb 14.6 oz) Body mass index is 29.36 kg/m . Last Weights: Wt Readings from Last 3 Encounters: 04/21/25 82.5 kg (181 lb 14.1 oz) 02/20/25 81.2 kg (179 lb) 10/10/24 78.9 kg (174 lb) I/O's: Intake/Output Summary (Last 24 hours) at 04/23/2025 1431 Last data filed at 04/22/2025 2114 Gross per 24 hour Intake 220 ml Output 450 ml Net -230 ml Physical Exam Physical Exam Constitutional Vitals reviewed. Eyes: EOM are normal. Pupils are equal, round, and reactive to light. Cardiovascular: Normal rate and regular rhythm. Pulses: intact distal pulses Radial pulses are 2+ on the right side and 2+ on the left side. Dorsalis pedis pulses are 1+ on the right side and 1+ on the left side. Heart Sounds: normal heart sounds. Pulmonary/Chest: Currently on oxygen by mask Lungs diminished throughout Respirations even nonlabored at 20 Abdominal: Bowel sounds are normal. He exhibits no distension. Soft. There is no abdominal tenderness. Musculoskeletal: General: Normal range of motion. Vascular: Right Lower Extremity Right lower extremity pulses DP: 1+ Left Lower Extremity Left lower extremity pulses DP: 1+ Right Upper Extremity Right upper extremity pulses Radial: 2+ Left Upper Extremity Left upper extremity pulses Radial: 2+ Neurological: Up in chair. Lab at bedside to dropped blood. Patient awake and answers most questions but sometimes difficult to understand due to mumbling. Follows commands. Cooperative Skin: Skin is warm and dry. Vitals reviewed. Labs Results from last 7 days Lab Units 04/23/25 0432 04/22/25 1017 04/21/25 0302 04/20/25 0300 04/19/25 0315 WBC x10E9/L 8.9 9.8 9.0 9.4 12.3* HEMOGLOBIN g/dL 11.5* 12.0* 11.8* 12.3* 11.6* HEMATOCRIT % 33.7* 36.4* 35.1* 35.9* 34.8* PLATELETS X10E9/L 284 284 262 247 240 Results from last 7 days Lab Units 04/23/25 1004 04/23/25 0432 04/22/25 1925 04/22/25 1232 04/22/25 1017 04/21/25 0302 04/20/25 0300 04/19/25 0316 SODIUM mmol/L -- 143 -- -- 142 145 142 141 POTASSIUM mmol/L 4.0 3.7 3.7 3.7 3.3* 3.5 4.0 3.8 CO2 mmol/L -- 28 -- -- 29 29 24 27 BUN mg/dL -- 20 -- -- 17 21 21 22 CREATININE mg/dL -- 1.03 -- -- 0.82 1.00 0.91 0.91 GLUCOSE mg/dL -- 94 -- -- 85 82 97 92 Labs obtained during the last 24 hrs. independently reviewed. Recent Studies X-ray chest 1 view Result Date: 04/23/2025 Single view chest History: Difficulty breathing, shortness of breath Comparison: 04/22/2025 Impression: Persistent left mid to lower lung airspace opacity. No new or growing airspace opacity. No pneumothorax. Small left pleural effusion. Nonenlarged heart. Sternotomy, cardiac valve prosthesis, left atrial appendage closure device. Left rib fractures. Finalized by Keny Jimenez MD on 04/23/2025 5:02 AM Radiographic studies obtained during the last 24 hrs independently reviewed for acute traumatic injuries. Allergies No Known Allergies Current Medications SCHEDULED acetaminophen, 1,000 mg, oral, Q6H OR acetaminophen, 1,000 mg, nasogastric, Q6H atorvastatin, 40 mg, oral, Nightly busPIRone, 30 mg, oral, BID enoxaparin (LOVENOX) injection, 30 mg, subcutaneous, Q12H fluticasone furoate-vilanteroL, 1 puff, inhalation, Daily AND umeclidinium, 1 puff, inhalation,Daily furosemide, 40 mg, oral, Daily ipratropium-albuteroL, 3 mL, nebulization, Q4H While awake lidocaine, 1 patch, transdermal, Daily metoprolol succinate XL, 100 mg, oral, Daily [COMPLETED] piperacillin-tazobactam (ZOSYN) IV, 4.5 g, intravenous, Once FOLLOWED BY piperacillin-tazobactam (ZOSYN) IV, 3.375 g, intravenous, Q8H [DISCONTINUED] QUEtiapine, 25 mg, oral, BID AND QUEtiapine, 75 mg, oral, Nightly sacubitriL-valsartan, 1 tablet, oral, BID sennosides-docusate sodium, 2 tablet, oral, Nightly sertraline, 100 mg, oral, Daily sodium chloride, 3 mL, intravenous, Q12H KVNG spironolactone, 25 mg, oral, Daily traZODone, 50 mg, oral, Nightly PRN calcium gluconate OR calcium gluconate OR calcium gluconate dextrose dextrose 50 % in water (D50W) glucagon (human recombinant) HYDROmorphone magnesium sulfate OR magnesium sulfate ondansetron oxyCODONE OR oxyCODONE polyethylene glycol potassium chloride OR potassium chloride potassium chloride in water OR potassium chloride in water sodium phosphate IV OR sodium phosphate IV - central line OR sod phos di, mono-K phos mono sodium chloride Current Infusions JEMMA Joseph 04/23/25 1433 * Cinthya Gregory RN - 04/23/2025 12:35 PM EDT Images from the original note were not included. FOLLOW-UP: Post-Intensive Care Rounding Note Patient: Doc Burns : 1950 Age: 75 y.o. Length of Stay: 9 days Admission Diagnosis: Bradycardia [R00.1] Hemothorax on left [J94.2] Closed nondisplaced fracture of coracoid process of left shoulder, initial encounter [S42.135A] Closed fracture of multiple ribs of left side, initial encounter [S22.42XA] QT prolongation [R94.31] Encounter before starting medication [Z76.89] Reviewing patient due to his recent transfer out from Intensive Care. Recorded vital signs are stable and the patient is not noted to be in any apparent distress. Telemetry and monitoring noted. Staff may call with any issues or concerns regarding his clinical presentation or stability. Thank you, CINTHYA GREGORY RN Rapid Response: [facility] * Moshe Duran RN - 04/22/2025 9:35 PM EDT Images from the original note were not included. FOLLOW-UP: Post-Intensive Care Rounding Note Patient: Doc Burns : 1950 Age: 75 y.o. Length of Stay: 8 days Admission Diagnosis: Bradycardia [R00.1] Hemothorax on left [J94.2] Closed nondisplaced fracture of coracoid process of left shoulder, initial encounter [S42.135A] Closed fracture of multiple ribs of left side, initial encounter [S22.42XA] QT prolongation [R94.31] Encounter before starting medication [Z76.89] Reviewing patient due to his recent transfer out from Intensive Care. Recorded vital signs are stable and the patient is not noted to be in any apparent distress. Telemetry and monitoring noted. Staff may call with any issues or concerns regarding his clinical presentation or stability. Thank you, Moshe Duran RN Rapid Response: [facility] * Aura Penny APRN-CONTACT CENTER CONSULTANT - 04/22/2025 10:49 AM EDT TRAUMA SURGERY - PROGRESS NOTE Patient: Doc Burns Date of : 1950 AGE 75 y.o. SEX male Assessment / Plan Doc Burns 75 y.o. male Injuries/Traumatic issues: 1. Traumatic fall - PT/OT 2. Hypoxia secondary to Left rib fractures -, hemothorax, pulmonary contusion COPD exacerbation -repeat chest x-ray -incentive spirometer -pain management -presently on 6 L nasal cannula with SpO2 93% -continue to monitor vitals and oxygen demand, patient is not on oxygen at home - patient with increased oxygen requirement, now on high flow - start IV steroids and antibiotics - schedule DuoNebs - IR consulted for left effusion- nothing to tap per IR - 04/20 high-flow weaned to nasal cannula - 04/22 patient more hypoxic on 5 L. Placed on mask. Unable to wean back to nasal cannula. High-flowordered. Chest x-ray. ABG 3. Left scapular fracture -x-ray left shoulder -consult ortho: Recommend nonoperative treatment, applying ice to affected areas, with weight-bearing restrictions 4. Tobacco use -patient endorses smoking 3/4 of a pack per day -patient was counseled on smoking cessation -patient was offered nicotine patch during hospital stay, declined at this time 5. Confusion and agitation (04/18) - became agitated overnight and received Haldol/Versed - Precedex drip - Seroquel - nighttime dose of Seroquel increased to 75 mg Comorbidities/Medical issues: Neuro- Pulm-history of lung cancer Cardio-CAD status post stent, hypertension, hyperlipidemia GI- - Heme- ID- MSK- Endo- Lytes- Lines and Tubes: Peripheral IV Pain control: Multimodal pain management Nutrition: Regular Prophylaxis: EPC cuffs, Lovenox Disposition: - PT/OT recommendation: SNF - Discharge plan: SNF - Barriers to discharge: Respiratory status/high flow - Level of care to be continued: Continue step-down management The patient will be monitored very closely at this time. He does have some hypoxia and will be placed back on high-flow. Could require ICU monitoring it some point Medical Decision Making: High Subjective Patient became confused and agitated overnight. Received Haldol and Ativan per nursing. Currently he is awake and on a oxygen mask. He desaturated while he was sleeping earlier this morning and they placed him on the mask. Unable to wean at this time. Objective Vital signs: Vitals: 04/22/25 1015 04/22/25 1016 04/22/25 1017 04/22/25 1042 BP: Pulse: Resp: Temp: TempSrc: SpO2: (!) 82% (!) 85% 93% 92% Weight: Height: Temperature Range Last 24 Hours : Temp: 36.2 C (97.2 F) Temp Av.6 C (97.9 F) Min: 36.2 C (97.2F) Max: 36.9 C (98.4 F) Admit Weight: 93.4 kg (205 lb 14.6 oz) Body mass index is 29.36 kg/m . Last Weights: Wt Readings from Last 3 Encounters: 04/21/25 82.5 kg (181 lb 14.1 oz) 02/20/25 81.2 kg (179 lb) 02/06/25 78.9 kg (174 lb) I/O's: Intake/Output Summary (Last 24 hours) at 04/22/2025 1050 Last data filed at 04/21/2025 1800 Gross per 24 hour Intake -- Output 850 ml Net -850 ml Physical Exam Physical Exam Constitutional Vitals reviewed. Eyes: EOM are normal. Pupils are equal, round, and reactive to light. Cardiovascular: Normal rate and regular rhythm. Pulses: intact distal pulses Radial pulses are 2+ on the right side and 2+ on the left side. Dorsalis pedis pulses are 1+ on the right side and 1+ on the left side. Heart Sounds: normal heart sounds. Pulmonary/Chest: Currently on oxygen by mask Lungs diminished throughout Respirations even nonlabored at 20 Abdominal: Bowel sounds are normal. He exhibits no distension. Soft. There is no abdominal tenderness. Musculoskeletal: General: Normal range of motion. Vascular: Right Lower Extremity Right lower extremity pulses DP: 1+ Left Lower Extremity Left lower extremity pulses DP: 1+ Right Upper Extremity Right upper extremity pulses Radial: 2+ Left Upper Extremity Left upper extremity pulses Radial: 2+ Neurological: Up in chair. Lab at bedside to dropped blood. Patient awake and answers most questions but sometimes difficult to understand due to mumbling. Follows commands. Cooperative Skin: Skin is warm and dry. Vitals reviewed. Labs Results from last 7 days Lab Units 04/21/25 03004/20/25 0300 04/19/255 04/18/25 0323 04/17/25 0233 WBC x10E9/L 9.0 9.4 12.3* 12.6* 13.8* HEMOGLOBIN g/dL 11.8* 12.3* 11.6* 11.2* 11.1* HEMATOCRIT % 35.1* 35.9* 34.8* 33.0* 33.0* PLATELETS X10E9/L 262 247 240 210 187 Results from last 7 days Lab Units 04/21/25 03004/20/25 0300 04/19/25 0316 04/18/25 0323 04/17/25 0233 SODIUM mmol/L 145 142 141 143 141 POTASSIUM mmol/L 3.5 4.0 3.8 4.1 4.3 CO2 mmol/L 29 24 27 28 25 BUN mg/dL 21 21 22 18 22 CREATININE mg/dL 1.00 0.91 0.91 0.88 0.81 GLUCOSE mg/dL 82 97 92 110* 118* Labs obtained during the last 24 hrs. independently reviewed. Recent Studies No results found. Radiographic studies obtained during the last 24 hrs independently reviewed for acute traumatic injuries. Allergies No Known Allergies Current Medications SCHEDULED acetaminophen, 1,000 mg, oral, Q6H OR acetaminophen, 1,000 mg, nasogastric, Q6H atorvastatin, 40 mg, oral, Nightly busPIRone, 30 mg, oral, BID enoxaparin (LOVENOX) injection, 30 mg, subcutaneous, Q12H fluticasone furoate-vilanteroL, 1 puff, inhalation, Daily AND umeclidinium, 1 puff, inhalation,Daily furosemide, 40 mg, oral, Daily ipratropium-albuteroL, 3 mL, nebulization, Q4H While awake lidocaine, 1 patch, transdermal, Daily metoprolol succinate XL, 100 mg, oral, Daily [COMPLETED] piperacillin-tazobactam (ZOSYN) IV, 4.5 g, intravenous, Once FOLLOWED BY piperacillin-tazobactam (ZOSYN) IV, 3.375 g, intravenous, Q8H [DISCONTINUED] QUEtiapine, 25 mg, oral, BID AND QUEtiapine, 50 mg, oral, Nightly sacubitriL-valsartan, 1 tablet, oral, BID sennosides-docusate sodium, 2 tablet, oral, Nightly sertraline, 100 mg, oral, Daily sodium chloride, 3 mL, intravenous, Q12H KVNG spironolactone, 25 mg, oral, Daily traZODone, 50 mg, oral, Nightly PRN calcium gluconate OR calcium gluconate OR calcium gluconate dextrose dextrose 50 % in water (D50W) glucagon (human recombinant) HYDROmorphone magnesium sulfate OR magnesium sulfate ondansetron oxyCODONE OR oxyCODONE polyethylene glycol potassium chloride OR potassium chloride potassium chloride in water OR potassium chloride in water sodium phosphate IV OR sodium phosphate IV - central line OR sod phos di, mono-K phos mono sodium chloride Current Infusions JEMMA Joseph 04/22/25 1105 * Oskar Power RN - 04/22/2025 9:45 AM EDT Images from the original note were not included. FOLLOW-UP: Post-Intensive Care Rounding Note Patient: Doc Burns : 1950 Age: 75 y.o. Length of Stay: 8 days Admission Diagnosis: Bradycardia [R00.1] Hemothorax on left [J94.2] Closed nondisplaced fracture of coracoid process of left shoulder, initial encounter [S42.135A] Closed fracture of multiple ribs of left side, initial encounter [S22.42XA] QT prolongation [R94.31] Encounter before starting medication [Z76.89] Reviewing patient due to his recent transfer out from Intensive Care. Recorded vital signs are stable and the patient is not noted to be in any apparent distress. Telemetry and monitoring noted. Staff may call with any issues or concerns regarding his clinical presentation or stability. Thank you, Oskar Power RN Rapid Response: [facility] * GÓMEZ Sifuentes - 04/21/2025 10:38 AM EDT TRAUMA SURGERY - PROGRESS NOTE Patient: Doc Burns Date of : 1950 AGE 75 y.o. SEX male Assessment / Plan Doc Burns 75 y.o. male Injuries/Traumatic issues: 1. Traumatic fall - PT/OT recommend SNF, pt refusing and wants to go home 2. Hypoxia secondary to Left rib fractures 6-8, hemothorax, pulmonary contusion COPD exacerbation -repeat chest x-ray -incentive spirometer -pain management -presently on 5L nasal cannula with SpO2 93% -continue to monitor vitals and oxygen demand, patient is not on oxygen at home -follows with Dr. Lentz as outpatient, agrees to close OP follow up after discharge - currently off HFNC - IV steroids and antibiotics for COPD exacerbation complete - schedule DuoNebs - IR consulted for left effusion- nothing to tap per IR 3. Left scapular fracture -x-ray left shoulder -consult ortho: Recommend nonoperative treatment, applying ice to affected areas, with weight-bearing restrictions 4. Tobacco use -patient endorses smoking 3/4 of a pack per day -patient was counseled on smoking cessation -patient was offered nicotine patch during hospital stay, declined at this time 5. Confusion and agitation (04/18) - became agitated overnight and received Haldol/Versed - Precedex drip - Seroquel started - no additional PRN meds needed for agitation, mentation remains appropriate this morning Comorbidities/Medical issues: Neuro- Pulm-history of lung cancer Cardio-CAD status post stent, hypertension, hyperlipidemia GI- - Heme- ID- MSK- Endo- Lytes- Lines and Tubes: Peripheral IV Pain control: Multimodal pain management Nutrition: Regular Prophylaxis: EPC cuffs, Lovenox Disposition: - PT/OT recommendation: SNF - Discharge plan: pt refusing SNF, would like to go home - Barriers to discharge: home O2 eval, antibiotic completion - Level of care to be continued: stepdown Medical Decision Making: High Medically Ready for Discharge: Anticipated in 2-4 Days Subjective Overall slowly improving, still with oxygen requirement but no longer requiring HFNC. Pt currently refusing SNF and would like to go home. Discussed with CYBER SOFTWARE ENGINEER with pulmonary regarding close OP follow up. Objective Vital signs: Vitals: 04/21/25 0900 04/21/25 0925 04/21/25 0935 04/21/25 1000 BP: 124/62 106/67 Pulse: 70 86 84 78 Resp: Temp: TempSrc: SpO2: 94% (!) 83% 98% 94% Weight: Height: Temperature Range Last 24 Hours : Temp: 36.7 C (98.1 F) Temp Av.8 C (98.2 F) Min: 36.6 C (97.9F) Max: 36.9 C (98.4 F) Admit Weight: 93.4 kg (205 lb 14.6 oz) Body mass index is 29.36 kg/m . Last Weights: Wt Readings from Last 3 Encounters: 04/21/25 82.5 kg (181 lb 14.1 oz) 02/20/25 81.2 kg (179 lb) 10/10/24 78.9 kg (174 lb) I/O's: Intake/Output Summary (Last 24 hours) at 04/21/2025 1038 Last data filed at 04/21/2025 0600 Gross per 24 hour Intake -- Output 1950 ml Net -1950 ml Physical Exam Physical Exam HEENT: Atraumatic, NC In place EOMI PERRL 3mm, CN II-XII: grossly intact No Malocclusion Lungs:Good air movement B, CTA B, No Ronchi, No Wheeze No Chest wall tenderness, No Crepitus Unlabored, Nasal cannula at 5 L/min Heart: Heart tones present, No Murmur noted, Regular Abd: Soft, No guarding, No rigidity Non Tender RUQ / LUQ / RLQ / LLQ Extremities: RUE: 5/5 strength LUE: 5/5 strength RLE: 5/5 strength LLE: 5/5 strength Pulses 2+ x 4 Intact to light touch No calf/thigh tenderness Neuro: Alert, pleasant, appropriate, Oriented to person, place, time - no distress Labs Results from last 7 days Lab Units 04/21/25 0302 04/20/25 0300 04/19/2531404/18/253 04/17/25 0233 WBC x10E9/L 9.0 9.4 12.3* 12.6* 13.8* HEMOGLOBIN g/dL 11.8* 12.3* 11.6* 11.2* 11.1* HEMATOCRIT % 35.1* 35.9* 34.8* 33.0* 33.0* PLATELETS X10E9/L 262 247 240 210 187 Results from last 7 days Lab Units 04/21/25 0302 04/20/25 0300 04/19/25 03104/18/25 0323 04/17/25 0233 SODIUM mmol/L 145 142 141 143 141 POTASSIUM mmol/L 3.5 4.0 3.8 4.1 4.3 CO2 mmol/L 29 24 27 28 25 BUN mg/dL 21 21 22 18 22 CREATININE mg/dL 1.00 0.91 0.91 0.88 0.81 GLUCOSE mg/dL 82 97 92 110* 118* Labs obtained during the last 24 hrs. independently reviewed. Recent Studies X-ray chest 1 view Result Date: 04/21/2025 CHEST 1 VIEW HISTORY: Rib fracture, hemothorax COMPARISON: 04/20/2025 FINDINGS: No definitive pneumothorax. Airspace opacities in the left lung are unchanged. Status post sternotomy. No pleural effusions. IMPRESSION: No significant interval change. Finalized by Car Werner MDon 04/21/2025 5:12 AM Fluoroscopy swallow motility function Result Date: 04/20/2025 STUDY: Video fluoroscopic swallow study CLINICAL HISTORY: Oral pharyngeal dysphagia, difficulty swallowing COMPARISON: None. FINDINGS: Video fluoroscopic swallow study was performed in conjunction with members of speech pathology. Barium contrast materials of multiple consistencies were administered. Fluoroscopic reference air kerma was 1.3 mGy. Multiple video fluoroscopic images. Zero fluoroscopic spot films. 7 cine runs are saved. Fluoroscopy time is 1 minute Flash intermittent penetration noted with thin consistency. No penetration or aspiration with pureed, soft and bite size, or regular c onsistencies. Correlate with dedicated speech pathology report for additional details and recommendations. IMPRESSION: 1. Abnormal swallow study, as above. Approved by Resident Krzysztof Sim MD on 04/20/2025 1:45 PM I, Sylvie Breaux MD have personally reviewed the image(s) and agree with and/or edited the report Finalized by Sylvie Breaux MD on 04/20/2025 2:06 PM Radiographic studies obtained during the last 24 hrs independently reviewed for acute traumatic injuries. Allergies No Known Allergies Current Medications SCHEDULED acetaminophen, 1,000 mg, oral, Q6H OR acetaminophen, 1,000 mg, nasogastric, Q6H atorvastatin, 40 mg, oral, Nightly busPIRone, 30 mg, oral, BID enoxaparin (LOVENOX) injection, 30 mg, subcutaneous, Q12H fluticasone furoate-vilanteroL, 1 puff, inhalation, Daily AND umeclidinium, 1 puff, inhalation,Daily furosemide, 40 mg, oral, Daily gabapentin, 600 mg, oral, Q8H KVNG ipratropium-albuteroL, 3 mL, nebulization, Q4H While awake lidocaine, 1 patch, transdermal, Daily methocarbamoL, 500 mg, oral, TID metoprolol succinate XL, 100 mg, oral, Daily [COMPLETED] piperacillin-tazobactam (ZOSYN) IV, 4.5 g, intravenous, Once FOLLOWED BY piperacillin-tazobactam (ZOSYN) IV, 3.375 g, intravenous, Q8H [DISCONTINUED] QUEtiapine, 25 mg, oral, BID AND QUEtiapine, 50 mg, oral, Nightly sacubitriL-valsartan, 1 tablet, oral, BID sennosides-docusate sodium, 2 tablet, oral, Nightly sertraline, 100 mg, oral, Daily sodium chloride, 3 mL, intravenous, Q12H KVNG spironolactone, 25 mg, oral, Daily traZODone, 50 mg, oral, Nightly PRN calcium gluconate OR calcium gluconate OR calcium gluconate dextrose dextrose 50 % in water (D50W) glucagon (human recombinant) HYDROmorphone magnesium sulfate OR magnesium sulfate ondansetron oxyCODONE OR oxyCODONE polyethylene glycol potassium chloride OR potassium chloride potassium chloride in water OR potassium chloride in water sodium phosphate IV OR sodium phosphate IV - central line OR sod phos di, mono-K phos mono sodium chloride Current Infusions GÓMEZ SIFUENTES 04/21/25 10:38 AM Trauma can be reached via Patient Touch Pager: [phone] GÓMEZ Sifuentes 04/21/25 [id number] * Rylie Moreno MD - 04/21/2025 5:31 AM EDT SICU Academic Critical Care PROGRESS NOTE Admission Date: 04/14/2025 3:10 AM Attending Physician: Igor Steel DO Date of 1950 Hospital Day: 7 day(s) Doc Burns is a 75 y.o. male with past medical history of CAD status post stent, COPD, diabetes, hypertension, active lung cancer not on chemotherapy, and continued tobacco use, brought in by EMS from [place] after attempting to carry an electric bike up the stairs and subsequently falling backwards. Patient states he was attempting to climb approximately 14 stairs when he lost his balance and fell backwards. He notes the electric bike landed on his chest and left side. The bike weighs approximately 100 lb. Patient denies loss of consciousness. Patient is on aspirin and clopidogrel. Upon presentation to [place], patient was found to have multiple left-sided rib fractures,small left hemothorax and pulmonary contusion, and left scapular fracture. At [place], CT brain and CT cervicalspine were negative for any acute pathology. Per EMS, patient's SpO2 was trending downward over time and was placed on 6 L O2 nasal cannula. Patient does not have an oxygen requirement at baseline. Additionally, patient has had soft blood pressures with systolic in the 90s, he was given 1 L of normal saline. EMS states that patient also received ketamine 40 mg over 30 minutes at approximately 2:00 a.m. with improvement of his pain. Presently, patient reports left shoulder pain, left chest wall pain which is exacerbated by deep inspiration, and left abdominal pain. Otherwise, patient denies headache, changes in vision, dizziness, neck pain, anterior chest pain, shortness of breath, nausea, vomiting, numbness tingling or weakness of the extremities. Patient endorses smoking 3/4 of a pack ofcigarettes per day. Otherwise denies ETOH and additional drug use. Overnight Events: Patient transitioned from high-flow to nasal cannula yesterday. Formal swallow study eval - ok for regular diet. CXR this morning demonstrates no significant change. >90% SpO2 on 5 L of NC. Physical Exam: Vital Signs: BP 93/53 Pulse 59 Temp 36.9 C (98.4 F) (Oral) Resp 13 Ht 167.6 cm (5' 6 ) Wt81.6 kg (179 lb 14.3 oz) SpO2 91% BMI 29.04 kg/m General: sleeping, in no acute distress HENT: Head atraumatic, normocephalic, external ears and nose are normal Eyes: Conjunctivae clear, non-icteric Pulmonary: Regular, bilateral breath sounds. Crackles to ausculation of L anterior lung field Cardiovascular: Regular rate and rhythm, radial pulses 2+ Abdomen: Soft, non-tender, non-distended Musculoskeletal: No obvious deformity in x4 extremities. L upper extremity arm sling in place Neurological: Does not follow commands Skin: Warm, dry, without jaundice Intake/Output Summary (Last 24 hours) at 04/21/2025 0531 Last data filed at 04/21/2025 0100 Gross per 24 hour Intake -- Output 1450 ml Net -1450 ml O2 Device: Nasal cannula Ventilator Settings FiO2 (%): (S) 45 % (PO2 low on ABG) Invasive Hemodynamic [place] Results from last 3 days Lab Units 04/21/25 03004/20/2529904/19/25 0316 BUN mg/dL 21 21 22 CREATININE mg/dL 1.00 0.91 0.91 POTASSIUM mmol/L 3.5 4.0 3.8 CO2 mmol/L 29 24 27 CHLORIDE mmol/L 107 107 105 No data from last 3 days. Results from last 3 days Lab Units 04/21/25 03004/20/25 03004/19/25 031 WBC x10E9/L 9.0 9.4 12.3* HEMOGLOBIN g/dL 11.8* 12.3* 11.6* HEMATOCRIT % 35.1* 35.9* 34.8* PLATELETS X10E9/L 262 247 240 MCV fL 92 92 92 MCH pg 31.1 31.5 30.8 MCHC g/dL 33.8 34.3 33.4 RDW % 13.2 13.5 13.6 MONO ABS MAN 10*3/uL -- 0.8 -- EOS ABS AUTO 10*3/uL -- -- 0.0 Microbiology Results Procedure Component Value Units Date/Time MRSA PCR nasal swab [[id number]] (Normal) Collected: 04/19/25 1100 Specimen: Swab from Nostril Updated: 04/19/25 1401 MRSA PCR NASAL Negative Glucose Results from last 7 days Lab Units 04/21/25 0302 04/20/25 0300 04/19/25 0316 04/18/25 0323 04/17/25 0233 04/16/25 0203 04/15/25 0344 04/14/25 0942 04/14/25 0920 04/14/25 0651 04/14/25 0624 BEDSIDE GLUCOSE mg/dL -- -- -- -- -- -- -- 103* -- 246* 141* GLUCOSE mg/dL 82 97 92 110* 118* 125* 96 -- 98 -- -- Lines/Drains Peripheral IV 04/14/25 Anterior;Left;Proximal Forearm (Active) Line Status No blood return;Saline locked 04/15/25 0400 Site Assessment Clean;Dry;Intact 04/15/25 0400 Dressing Type Occlusive;Transparent 04/15/25 0400 Dressing Status Clean;Dry;Intact 04/15/25 0400 Dressing Intervention Initial dressing 04/14/25 1900 Peripheral IV 04/14/25 Right Antecubital (Active) Line Status No blood return;Saline locked;Flushed 04/15/25 0400 Site Assessment Clean;Dry;Intact 04/15/25 0400 Dressing Type Occlusive;Transparent 04/15/25 0400 Dressing Status Clean;Dry;Intact 04/15/25 0400 Dressing Intervention Initial dressing 04/14/25 1900 Peripheral IV 04/14/25 Left Antecubital (Active) Line Status No blood return;Saline locked;Flushed;Alcohol sponge cap changed 04/15/25 0400 Site Assessment Clean;Dry;Intact 04/15/25 0400 Dressing Type Occlusive;Transparent 04/15/25 0400 Dressing Status Clean;Dry;Intact 04/15/25 0400 Dressing Intervention Initial dressing 04/14/25 1900 Dressing Change Due (Non-Gauze) 04/21/25 04/14/25 0401 ACTIVE PROBLEM LIST: Trauma, fall Left 6th - 8th rib fxs Left small hemothorax Left pulmonary contusion Left scapular fracture Tobacco use disorder Hypertension Hyperkalemia ASSESSMENT/PLAN: Doc Burns is a 75 y.o. male with past medical history of CAD status post stent, COPD, diabetes, hypertension, active lung cancer not on chemotherapy, and continued tobacco use, brought in by EMS from [place] after attempting to carry an electric bike up the stairs and subsequently falling backwards. No LOC. Patient takes aspirin and clopidogrel. 1. Neuro Hospital Meds: Sedation: None Analgesia: Tylenol, Lidocaine patch, Robaxin, Gabapentin, Dilaudid, Oxycodone Other: Buspar, Sertraline, Trazodone, Seroquel Home Meds: Buspar, Sertraline PMH: Insomnia PSH: None 2. Pulmonary Breathing Support: Supplemental O2 Settings: Nasal cannula 5L SpO2: 90% Continuous pulse oximetry Hospital Meds: Duoneb, Breo-Ellipta, Incruse-Ellipta, Solu-Medrol Home Meds: Albuterol inhaler and nebulizer, Fluticasone PMH: COPD, Lung cancer PSH: None Left rib fractures 6-8, hemothorax, pulmonary contusion -daily chest x-ray -incentive spirometer -pain management -continue to monitor vitals and oxygen demand, patient is not on oxygen at home - Chest x-ray AM: No significant interval change -IR consulted for left fluid collection drainage - IR declined drainage at this time - if collection worsens we will reconsult 3. Cardiovascular Hemodynamics: RRR Normotensive Pressors: None Goal MAP >65 Continuous cardiac monitoring Hospital Meds: Atorvastatin, sacubitriL-valsartan Plan to restart home metoprolol today Home Meds: Norvasc, ASA, Lipitor, Lasix, metoprolol, Entresto, Plavix PMH: CAD, HLD, HTN PSH: None Code Status: Full EK/15: QTC 440 4. GI Diet: Regular Bowel Function: Monitor Hospital Meds: Zofran, Senna, Glycolax Home Meds: None PMH: T2DM PSH: None Tobacco use -patient endorses smoking 3/4 of a pack per day -patient was counseled on smoking cessation -patient was offered nicotine patch during hospital stay, declined at this time 5. Renal/Genitourinary Lab Results Component Value Date SODIUM 145 04/21/2025 SODIUM 142 04/20/2025 SODIUM 141 04/19/2025 CL 107 04/21/2025 CL 107 04/20/2025 CL 105 04/19/2025 K 3.5 04/21/2025 K 4.0 04/20/2025 K 3.8 04/19/2025 CO2 29 04/21/2025 CO2 24 04/20/2025 CO2 27 04/19/2025 Lab Results Component Value Date BUN 21 04/21/2025 BUN 21 04/20/2025 BUN 22 04/19/2025 CREATININE 1.00 04/21/2025 CREATININE 0.91 04/20/2025 CREATININE 0.91 04/19/2025 CALCIUM 8.6 04/21/2025 CALCIUM 8.8 04/20/2025 CALCIUM 9.3 04/19/2025 Will replace electrolytes PRN per ICU protocol Fluid Balance: IV Fluids: None UOP/24 H: 1.45 L Net Fluid since admission: -12 L Strict monitoring of Ins and Outs Intake/Output Summary (Last 24 hours) at 04/21/2025 0531 Last data filed at 04/21/2025 0100 Gross per 24 hour Intake -- Output 1450 ml Net -1450 ml Hospital Meds: Lasix 40 daily Plan to restart home spironolactone today. Home Meds: None PMH: None PSH: None 6. Heme Labs: Lab Results Component Value Date HGB 11.8 (L) 04/21/2025 HGB 12.3 (L) 04/20/2025 HGB 11.6 (L) 04/19/2025 PLT 262 04/21/2025 PLT 247 04/20/2025 PLT 240 04/19/2025 Lab Results Component Value Date INR 1.0 04/14/2025 INR 1.1 12/05/2022 Type and Screen: A+ Blood Products Administered: 0 Will continue to monitor 7. ID Tmax/24H: Temp (24hrs), Av.8 C (98.2 F), Min:36.6 C (97.9 F), Max:36.9 C (98.4 F) Labs: Lab Results Component Value Date WBC 9.0 04/21/2025 WBC 9.4 04/20/2025 WBC 12.3 (H) 04/19/2025 Micro: MRSA PCR: Negative Hospital Meds: Antibiotics: Zosyn (04/19 - ) for 7 days S/p azithromycin and Rocephin (04/15-04/19) S/p vancomycin 8. Endocrine Lab Results Component Value Date GLU 82 04/21/2025 GLU 97 04/20/2025 GLU 92 04/19/2025 Goal Blood Glucose <180 mg/dL Hospital Meds: None Home Meds: None PMH: None PSH: None 9. Musculoskeletal PMH: None PSH: None PT/OT when able #Left scapular fracture -x-ray left shoulder - displaced fx of coracoid -consult ortho: Recommend nonoperative treatment, applying ice to affected areas, with weight-bearing restrictions 10. Prophylaxis Respiratory: Incentive spirometer GI: Not indicated DVT: SCD Cuffs, Lovenox 30 b.i.d. 11. Lines PIV x2 External urinary catheter Disposition: Patient okay to transfer out of the SICU Plan and management were discussed with the attending Dr. Josh Moreno MD Orthopaedic Surgery, PGY-1 SICU Service Cosigned by Jerson Moreno MD at 04/21/2025 12:51 PM EDT Associated attestation - Jerson Moreno MD - 04/21/2025 12:51 PM EDT ATTENDING NOTE I saw the patient. I Performed or participated and was physically present during the critical/vieyra portions of the service. I was directly involved in the management and treatment plan of the patient.I reviewed the resident's note. Pulling approximately 1.2 L on incentive spirometry. Remains on nasal cannula. Reports adequate pain control. Transfer orders placed. Call with questions or clarification anytime. Jerson Moreno MD [facility] General Surgeons Robotic Surgery Trauma, Acute Care Surgery and Surgical Critical Care * Aura Penny APRN-AZAEL - 04/20/2025 11:44 AM EDT TRAUMA SURGERY - PROGRESS NOTE Patient: Doc Burns Date of : 1950 AGE 75 y.o. SEX male Assessment / Plan Doc Burns 75 y.o. male Injuries/Traumatic issues: 1. Traumatic fall - PT/OT 2. Hypoxia secondary to Left rib fractures 6-8, hemothorax, pulmonary contusion COPD exacerbation -repeat chest x-ray -incentive spirometer -pain management -presently on 6 L nasal cannula with SpO2 93% -continue to monitor vitals and oxygen demand, patient is not on oxygen at home - patient with increased oxygen requirement, now on high flow - start IV steroids and antibiotics - schedule DuoNebs - IR consulted for left effusion- nothing to tap per IR - 04/20 high-flow weaned to nasal cannula 3. Left scapular fracture -x-ray left shoulder -consult ortho: Recommend nonoperative treatment, applying ice to affected areas, with weight-bearing restrictions 4. Tobacco use -patient endorses smoking 3/4 of a pack per day -patient was counseled on smoking cessation -patient was offered nicotine patch during hospital stay, declined at this time 5. Confusion and agitation (04/18) - became agitated overnight and received Haldol/Versed - Precedex drip - Seroquel started Comorbidities/Medical issues: Neuro- Pulm-history of lung cancer Cardio-CAD status post stent, hypertension, hyperlipidemia GI- - Heme- ID- MSK- Endo- Lytes- Lines and Tubes: Peripheral IV Pain control: Multimodal pain management Nutrition: Regular Prophylaxis: EPC cuffs, Lovenox Disposition: - PT/OT recommendation: SNF - Discharge plan: SNF - Barriers to discharge: ICU/high flow - Level of care to be continued: SICU--> possible transfer to step-down. We will discuss with Critical Care Medical Decision Making: High Subjective Patient up in chair. High-flow being changed to nasal cannula. Patient denies shortness of breath. Pain is controlled. Tolerating diet. Objective Vital signs: Vitals: 04/20/25 0800 04/20/25 0900 04/20/25 1000 04/20/25 1100 BP: 133/72 (!) 142/109 116/59 Pulse: 68 72 92 90 Resp: 22 (!) 28 19 15 Temp: 36.8 C (98.2 F) TempSrc: Oral SpO2: 100% (!) 78% 92% 94% Weight: Height: Temperature Range Last 24 Hours : Temp: 36.8 C (98.2 F) Temp Av.9 C (98.5 F) Min: 36.8 C (98.2F) Max: 37.1 C (98.8 F) Admit Weight: 93.4 kg (205 lb 14.6 oz) Body mass index is 29.04 kg/m . Last Weights: Wt Readings from Last 3 Encounters: 04/20/25 81.6 kg (179 lb 14.3 oz) 02/20/25 81.2 kg (179 lb) 10/10/24 78.9 kg (174 lb) I/O's: Intake/Output Summary (Last 24 hours) at 04/20/2025 1144 Last data filed at 04/20/2025 0000 Gross per 24 hour Intake -- Output 950 ml Net -950 ml Physical Exam Physical Exam Constitutional Vitals reviewed. Eyes: EOM are normal. Pupils are equal, round, and reactive to light. Cardiovascular: Normal rate and regular rhythm. Pulses: intact distal pulses Radial pulses are 2+ on the right side and 2+ on the left side. Dorsalis pedis pulses are 1+ on the right side and 1+ on the left side. Heart Sounds: normal heart sounds. Pulmonary/Chest: Currently on high-flow. Lungs diminished throughout Respirations even nonlabored at 20 Abdominal: Bowel sounds are normal. He exhibits no distension. Soft. There is no abdominal tenderness. Musculoskeletal: General: Normal range of motion. Vascular: Right Lower Extremity Right lower extremity pulses DP: 1+ Left Lower Extremity Left lower extremity pulses DP: 1+ Right Upper Extremity Right upper extremity pulses Radial: 2+ Left Upper Extremity Left upper extremity pulses Radial: 2+ Neurological: Currently sleepy and difficult to arouse Skin: Skin is warm and dry. Vitals reviewed. Labs Results from last 7 days Lab Units 04/20/25 0300 04/19/25 0315 04/18/25 0323 04/17/25 0233 04/16/25 0203 WBC x10E9/L 9.4 12.3* 12.6* 13.8* 14.8* HEMOGLOBIN g/dL 12.3* 11.6* 11.2* 11.1* 10.8* HEMATOCRIT % 35.9* 34.8* 33.0* 33.0* 31.9* PLATELETS X10E9/L 247 240 210 187 165 Results from last 7 days Lab Units 04/20/25 0300 04/19/25 0316 04/18/25 0323 04/17/25 0233 04/16/25 0203 SODIUM mmol/L 142 141 143 141 136 POTASSIUM mmol/L 4.0 3.8 4.1 4.3 4.4 CO2 mmol/L 24 27 28 25 23 BUN mg/dL 21 22 18 22 25 CREATININE mg/dL 0.91 0.91 0.88 0.81 1.06 GLUCOSE mg/dL 97 92 110* 118* 125* Results from last 7 days Lab Units 04/14/25 0358 INR 1.0 PROTIME sec 11.1 APTT sec 25* Labs obtained during the last 24 hrs. independently reviewed. Recent Studies X-ray chest 1 view Result Date: 04/20/2025 Single view chest History: Difficulty breathing, shortness of breath Comparison: 04/19/2025 Impression: Persistent asymmetric multifocal pulmonary parenchymal opacities throughout the left lung, possible asymmetric edema, infection or aspiration. No new or growing pulmonary parenchymal opacity. Low lung volumes and hypoventilatory change. Sternotomy, cardiac valve prosthesis. Left atrial appendageclosure device. Nonenlarged heart. Finalized by Keny Jimenez MD on 04/20/2025 5:02 AM Radiographic studies obtained during the last 24 hrs independently reviewed for acute traumatic injuries. Allergies No Known Allergies Current Medications SCHEDULED acetaminophen, 1,000 mg, oral, Q6H OR acetaminophen, 1,000 mg, nasogastric, Q6H atorvastatin, 40 mg, oral, Nightly busPIRone, 30 mg, oral, BID enoxaparin (LOVENOX) injection, 30 mg, subcutaneous, Q12H fluticasone furoate-vilanteroL, 1 puff, inhalation, Daily AND umeclidinium, 1 puff, inhalation,Daily furosemide, 40 mg, oral, Daily gabapentin, 600 mg, oral, Q8H KVNG ipratropium-albuteroL, 3 mL, nebulization, Q4H While awake lidocaine, 1 patch, transdermal, Daily methocarbamoL, 500 mg, oral, TID naloxone, , , [COMPLETED] piperacillin-tazobactam (ZOSYN) IV, 4.5 g, intravenous, Once FOLLOWED BY piperacillin-tazobactam (ZOSYN) IV, 3.375 g, intravenous, Q8H QUEtiapine, 25 mg, oral, BID AND QUEtiapine, 50 mg, oral, Nightly sacubitriL-valsartan, 1 tablet, oral, BID sennosides-docusate sodium, 2 tablet, oral, Nightly sertraline, 100 mg, oral, Daily sodium chloride, 3 mL, intravenous, Q12H KVNG traZODone, 50 mg, oral, Nightly PRN calcium gluconate OR calcium gluconate OR calcium gluconate dextrose dextrose 50 % in water (D50W) glucagon (human recombinant) HYDROmorphone magnesium sulfate OR magnesium sulfate naloxone ondansetron oxyCODONE OR oxyCODONE polyethylene glycol potassium chloride OR potassium chloride potassium chloride in water OR potassium chloride in water sodium phosphate IV OR sodium phosphate IV - central line OR sod phos di, mono-K phos mono sodium chloride Current Infusions JEMMA Joseph 04/20/25 1150 * Rylie Moreno MD - 04/20/2025 6:50 AM EDT SICU Academic Critical Care PROGRESS NOTE Admission Date: 04/14/2025 3:10 AM Attending Physician: Igor Steel DO Date of 1950 Hospital Day: 6 day(s) Doc Burns is a 75 y.o. male with past medical history of CAD status post stent, COPD, diabetes, hypertension, active lung cancer not on chemotherapy, and continued tobacco use, brought in by EMS from [place] after attempting to carry an electric bike up the stairs and subsequently falling backwards. Patient states he was attempting to climb approximately 14 stairs when he lost his balance and fell backwards. He notes the electric bike landed on his chest and left side. The bike weighs approximately 100 lb. Patient denies loss of consciousness. Patient is on aspirin and clopidogrel. Upon presentation to [place], patient was found to have multiple left-sided rib fractures,small left hemothorax and pulmonary contusion, and left scapular fracture. At [place], CT brain and CT cervicalspine were negative for any acute pathology. Per EMS, patient's SpO2 was trending downward over time and was placed on 6 L O2 nasal cannula. Patient does not have an oxygen requirement at baseline. Additionally, patient has had soft blood pressures with systolic in the 90s, he was given 1 L of normal saline. EMS states that patient also received ketamine 40 mg over 30 minutes at approximately 2:00 a.m. with improvement of his pain. Presently, patient reports left shoulder pain, left chest wall pain which is exacerbated by deep inspiration, and left abdominal pain. Otherwise, patient denies headache, changes in vision, dizziness, neck pain, anterior chest pain, shortness of breath, nausea, vomiting, numbness tingling or weakness of the extremities. Patient endorses smoking 3/4 of a pack ofcigarettes per day. Otherwise denies ETOH and additional drug use. Overnight Events: Yesterday, patient was started on Seroquel to help with sleep and agitation. No acute events overnight. Patient remains on high-flow nasal cannula at 30 L in 45% FiO2. Morning ABG within normal limits, pH 7.388, pCO2 40.6, PO2 53. CXR this morning demonstrates a persistent opacities in the left lung although improved from yesterday. Physical Exam: Vital Signs: BP 125/68 Pulse 63 Temp 37 C (98.6 F) (Oral) Resp 18 Ht 167.6 cm (5' 6 ) Wt 81.6 kg (179 lb 14.3 oz) SpO2 96% BMI 29.04 kg/m General: sleeping, in no acute distress HENT: Head atraumatic, normocephalic, external ears and nose are normal Eyes: Conjunctivae clear, non-icteric Pulmonary: Regular, bilateral breath sounds. Crackles to ausculation of L anterior lung field Cardiovascular: Regular rate and rhythm, radial pulses 2+ Abdomen: Soft, non-tender, non-distended Musculoskeletal: No obvious deformity in x4 extremities. L upper extremity arm sling in place Neurological: Does not follow commands Skin: Warm, dry, without jaundice Intake/Output Summary (Last 24 hours) at 04/20/2025 0658 Last data filed at 04/20/2025 0000 Gross per 24 hour Intake -- Output 950 ml Net -950 ml O2 Device: High flow nasal cannula Ventilator Settings FiO2 (%): (S) 45 % (PO2 low on ABG) Invasive Hemodynamic [place] Results from last 3 days Lab Units 04/20/25 0300 04/19/25 0316 04/18/25 0323 BUN mg/dL 21 22 18 CREATININE mg/dL 0.91 0.91 0.88 POTASSIUM mmol/L 4.0 3.8 4.1 CO2 mmol/L 24 27 28 CHLORIDE mmol/L 107 105 109 No data from last 3 days. Results from last 3 days Lab Units 04/20/25 03004/19/2531404/18/25 0323 WBC x10E9/L 9.4 12.3* 12.6* HEMOGLOBIN g/dL 12.3* 11.6* 11.2* HEMATOCRIT % 35.9* 34.8* 33.0* PLATELETS X10E9/L 247 240 210 MCV fL 92 92 92 MCH pg 31.5 30.8 31.1 MCHC g/dL 34.3 33.4 33.9 RDW % 13.5 13.6 13.6 MONO ABS MAN 10*3/uL 0.8 -- -- EOS ABS AUTO 10*3/uL -- 0.0 0.0 Microbiology Results Procedure Component Value Units Date/Time MRSA PCR nasal swab [[id number]] (Normal) Collected: 04/19/25 1100 Specimen: Swab from Nostril Updated: 04/19/25 1401 MRSA PCR NASAL Negative Glucose Results from last 7 days Lab Units 04/20/25 0300 04/19/25 0316 04/18/25 0323 04/17/25 0233 04/16/25 0203 04/15/25 0344 04/14/25 0942 04/14/25 0920 04/14/25 0651 04/14/25 0624 04/14/25 0358 BEDSIDE GLUCOSE mg/dL -- -- -- -- -- -- 103* -- 246* 141* -- GLUCOSE mg/dL 97 92 110* 118* 125* 96 -- 98 -- -- 135* Lines/Drains Peripheral IV 04/14/25 Anterior;Left;Proximal Forearm (Active) Line Status No blood return;Saline locked 04/15/25 0400 Site Assessment Clean;Dry;Intact 04/15/25 0400 Dressing Type Occlusive;Transparent 04/15/25 0400 Dressing Status Clean;Dry;Intact 04/15/25 0400 Dressing Intervention Initial dressing 04/14/25 1900 Peripheral IV 04/14/25 Right Antecubital (Active) Line Status No blood return;Saline locked;Flushed 04/15/25 0400 Site Assessment Clean;Dry;Intact 04/15/25 0400 Dressing Type Occlusive;Transparent 04/15/25 0400 Dressing Status Clean;Dry;Intact 04/15/25 0400 Dressing Intervention Initial dressing 04/14/25 1900 Peripheral IV 04/14/25 Left Antecubital (Active) Line Status No blood return;Saline locked;Flushed;Alcohol sponge cap changed 04/15/25 0400 Site Assessment Clean;Dry;Intact 04/15/25 0400 Dressing Type Occlusive;Transparent 04/15/25 0400 Dressing Status Clean;Dry;Intact 04/15/25 0400 Dressing Intervention Initial dressing 04/14/25 1900 Dressing Change Due (Non-Gauze) 04/21/25 04/14/25 0401 ACTIVE PROBLEM LIST: Trauma, fall Left 6th - 8th rib fxs Left small hemothorax Left pulmonary contusion Left scapular fracture Tobacco use disorder Hypertension Hyperkalemia ASSESSMENT/PLAN: Doc Burns is a 75 y.o. male with past medical history of CAD status post stent, COPD, diabetes, hypertension, active lung cancer not on chemotherapy, and continued tobacco use, brought in by EMS from [place] after attempting to carry an electric bike up the stairs and subsequently falling backwards. No LOC. Patient takes aspirin and clopidogrel. 1. Neuro Hospital Meds: Sedation: None Analgesia: Tylenol, Lidocaine patch, Robaxin, Gabapentin, Dilaudid, Oxycodone Other: Buspar, Sertraline, Trazodone, Seroquel Home Meds: Buspar, Sertraline PMH: Insomnia PSH: None 2. Pulmonary Breathing Support: Supplemental O2 Settings: 30 L 45 % high flow O2 - plan to switch to nasal cannula a soon as possible SpO2: 90% Continuous pulse oximetry Hospital Meds: Duoneb, Breo-Ellipta, Incruse-Ellipta, Solu-Medrol Home Meds: Albuterol inhaler and nebulizer, Fluticasone PMH: COPD, Lung cancer PSH: None Left rib fractures 6-8, hemothorax, pulmonary contusion -daily chest x-ray -incentive spirometer -pain management -continue to monitor vitals and oxygen demand, patient is not on oxygen at home - Chest x-ray AM: Improving left lobe opacities -ABG AM: pH 7.388, pCO2 40.6, PO2 53 -IR consulted for left fluid collection drainage - IR declined drainage at this time - if collection worsens we will reconsult 3. Cardiovascular Hemodynamics: RRR Normotensive Pressors: None Goal MAP >65 Continuous cardiac monitoring Hospital Meds: Atorvastatin, sacubitriL-valsartan Home Meds: Norvasc, ASA, Lipitor, Lasix, metoprolol, Entresto, Plavix PMH: CAD, HLD, HTN PSH: None Code Status: Full EK/15: QTC 440 4. GI Diet: Regular Bowel Function: Monitor Hospital Meds: Zofran, Senna, Glycolax Home Meds: None PMH: T2DM PSH: None Tobacco use -patient endorses smoking 3/4 of a pack per day -patient was counseled on smoking cessation -patient was offered nicotine patch during hospital stay, declined at this time 5. Renal/Genitourinary Lab Results Component Value Date SODIUM 142 04/20/2025 SODIUM 141 04/19/2025 SODIUM 143 04/18/2025 CL 107 04/20/2025 CL 105 04/19/2025 CL 109 04/18/2025 K 4.0 04/20/2025 K 3.8 04/19/2025 K 4.1 04/18/2025 CO2 24 04/20/2025 CO2 27 04/19/2025 CO2 28 04/18/2025 Lab Results Component Value Date BUN 21 04/20/2025 BUN 22 04/19/2025 BUN 18 04/18/2025 CREATININE 0.91 04/20/2025 CREATININE 0.91 04/19/2025 CREATININE 0.88 04/18/2025 CALCIUM 8.8 04/20/2025 CALCIUM 9.3 04/19/2025 CALCIUM 8.8 04/18/2025 Will replace electrolytes PRN per ICU protocol Fluid Balance: IV Fluids: None UOP/24 H: 950 mL Net Fluid since admission: -10 L Strict monitoring of Ins and Outs Intake/Output Summary (Last 24 hours) at 04/20/2025 0658 Last data filed at 04/20/2025 0000 Gross per 24 hour Intake -- Output 950 ml Net -950 ml Hospital Meds: Lasix 40 daily Home Meds: None PMH: None PSH: None 6. Heme Labs: Lab Results Component Value Date HGB 12.3 (L) 04/20/2025 HGB 11.6 (L) 04/19/2025 HGB 11.2 (L) 04/18/2025 PLT 247 04/20/2025 PLT 240 04/19/2025 PLT 210 04/18/2025 Lab Results Component Value Date INR 1.0 04/14/2025 INR 1.1 12/05/2022 Type and Screen: A+ Blood Products Administered: 0 Will continue to monitor 7. ID Tmax/24H: Temp (24hrs), Av C (98.6 F), Min:36.8 C (98.2 F), Max:37.1 C (98.8 F) Labs: Lab Results Component Value Date WBC 9.4 04/20/2025 WBC 12.3 (H) 04/19/2025 WBC 12.6 (H) 04/18/2025 Micro: MRSA PCR: Negative Hospital Meds: Antibiotics: Zosyn and vancomycin (04/19 - ) S/p azithromycin and Rocephin (04/15-04/19) 8. Endocrine Lab Results Component Value Date GLU 97 04/20/2025 GLU 92 04/19/2025 GLU 110 (H) 04/18/2025 Goal Blood Glucose <180 mg/dL Hospital Meds: None Home Meds: None PMH: None PSH: None 9. Musculoskeletal PMH: None PSH: None PT/OT when able #Left scapular fracture -x-ray left shoulder - displaced fx of coracoid -consult ortho: Recommend nonoperative treatment, applying ice to affected areas, with weight-bearing restrictions 10. Prophylaxis Respiratory: Incentive spirometer GI: Not indicated DVT: SCD Cuffs, Lovenox 30 b.i.d. 11. Lines PIV x2 External urinary catheter Plan and management were discussed with the attending Dr. Aba Moreno MD Orthopaedic Surgery, PGY-1 SICU Service Cosigned by Donta Troncoso MD at 04/20/2025 1:39 PM EDT Associated attestation - Donta Troncoso MD - 04/20/2025 1:39 PM EDT Attending Attestation: I saw the patient. I participated and was physically present during the critical/vieyra portions of the service. I was directly involved in the management and treatment plan of the patient. I reviewed the resident's note. Additional Notes/Findings: Agitation under better control Continue multimodal pain management and aggressive pulmonary hygiene On Zosyn for hospital-acquired pneumonia * Aura Penny APRN-CONTACT CENTER CONSULTANT - 04/19/2025 10:15 AM EDT TRAUMA SURGERY - PROGRESS NOTE Patient: Doc Burns Date of : 1950 AGE 75 y.o. SEX male Assessment / Plan Doc Burns 75 y.o. male Injuries/Traumatic issues: 1. Traumatic fall - PT/OT 2. Hypoxia secondary to Left rib fractures 6-8, hemothorax, pulmonary contusion COPD exacerbation -repeat chest x-ray -incentive spirometer -pain management -presently on 6 L nasal cannula with SpO2 93% -continue to monitor vitals and oxygen demand, patient is not on oxygen at home - patient with increased oxygen requirement, now on high flow - start IV steroids and antibiotics - schedule DuoNebs - IR consulted for left effusion- nothing to tap per IR 3. Left scapular fracture -x-ray left shoulder -consult ortho: Recommend nonoperative treatment, applying ice to affected areas, with weight-bearing restrictions 4. Tobacco use -patient endorses smoking 3/4 of a pack per day -patient was counseled on smoking cessation -patient was offered nicotine patch during hospital stay, declined at this time 5. Confusion and agitation (04/18) - became agitated overnight and received Haldol/Versed - Precedex drip Comorbidities/Medical issues: Neuro- Pulm-history of lung cancer Cardio-CAD status post stent, hypertension, hyperlipidemia GI- - Heme- ID- MSK- Endo- Lytes- Lines and Tubes: Peripheral IV Pain control: Multimodal pain management Nutrition: Regular Prophylaxis: EPC cuffs, Lovenox Disposition: - PT/OT recommendation: SNF - Discharge plan: SNF - Barriers to discharge: ICU/high flow - Level of care to be continued: SICU Medical Decision Making: High Subjective Patient became acutely confused and agitated overnight. Hitting and yelling. Given Versed and Haldol but still yelling out and agitated. Precedex drip started. Currently patient is very sedated but arousable. Objective Vital signs: Vitals: 04/19/25 0300 04/19/25 0356 04/19/25 0600 04/19/25 0700 BP: 118/67 Pulse: 59 Resp: 18 Temp: 36.9 C (98.4 F) 36.9 C (98.4 F) TempSrc: Oral Oral SpO2: 93% 98% Weight: Height: Temperature Range Last 24 Hours : Temp: 36.9 C (98.4 F) Temp Av.8 C (98.3 F) Min: 36.7 C (98.1F) Max: 36.9 C (98.5 F) Admit Weight: 93.4 kg (205 lb 14.6 oz) Body mass index is 31.28 kg/m . Last Weights: Wt Readings from Last 3 Encounters: 04/17/25 87.9 kg (193 lb 12.6 oz) 02/20/25 81.2 kg (179 lb) 10/10/24 78.9 kg (174 lb) I/O's: Intake/Output Summary (Last 24 hours) at 04/19/2025 1015 Last data filed at 04/19/2025 0645 Gross per 24 hour Intake 20.6 ml Output 1700 ml Net -1679.4 ml Physical Exam Physical Exam Constitutional Vitals reviewed. Eyes: EOM are normal. Pupils are equal, round, and reactive to light. Cardiovascular: Normal rate and regular rhythm. Pulses: intact distal pulses Radial pulses are 2+ on the right side and 2+ on the left side. Dorsalis pedis pulses are 1+ on the right side and 1+ on the left side. Heart Sounds: normal heart sounds. Pulmonary/Chest: Currently on high-flow. Lungs diminished throughout Respirations even nonlabored at 20 Abdominal: Bowel sounds are normal. He exhibits no distension. Soft. There is no abdominal tenderness. Musculoskeletal: General: Normal range of motion. Vascular: Right Lower Extremity Right lower extremity pulses DP: 1+ Left Lower Extremity Left lower extremity pulses DP: 1+ Right Upper Extremity Right upper extremity pulses Radial: 2+ Left Upper Extremity Left upper extremity pulses Radial: 2+ Neurological: Currently sleepy and difficult to arouse Skin: Skin is warm and dry. Vitals reviewed. Labs Results from last 7 days Lab Units 04/19/25 0315 04/18/25 0323 04/17/25 0233 04/16/25 0203 04/15/25 0344 WBC x10E9/L 12.3* 12.6* 13.8* 14.8* 9.6 HEMOGLOBIN g/dL 11.6* 11.2* 11.1* 10.8* 11.4* HEMATOCRIT % 34.8* 33.0* 33.0* 31.9* 34.3* PLATELETS X10E9/L 240 210 187 165 155 Results from last 7 days Lab Units 04/19/25 0316 04/18/25 0323 04/17/25 0233 04/16/25 0203 04/15/25 1512 04/15/25 0344 SODIUM mmol/L 141 143 141 136 -- 138 POTASSIUM mmol/L 3.8 4.1 4.3 4.4 4.3 4.2 CO2 mmol/L 27 28 25 23 -- 22 BUN mg/dL 22 18 22 25 -- 28* CREATININE mg/dL 0.91 0.88 0.81 1.06 -- 1.09 GLUCOSE mg/dL 92 110* 118* 125* -- 96 Results from last 7 days Lab Units 04/14/25 0358 INR 1.0 PROTIME sec 11.1 APTT sec 25* Labs obtained during the last 24 hrs. independently reviewed. Recent Studies X-ray chest 1 view Result Date: 04/19/2025 Single view chest History: Difficulty breathing, shortness of breath Comparison: 04/18/2025 Impression: Ill-defined opacities throughout the left lung have progressed with respect prior [particularly in the left upper lobe], suspect infection or aspiration. No pneumothorax. No sizable pleural effusion. Sternotomy, left sacral closure device. Finalized by Keny Jimenez MD on04/19/2025 4:28 AM IR limited or localized follow up study Result Date: 04/18/2025 History: 75-year-old male with left pleural fluid Procedure: Limited left chest ultrasound. Interventional radiologist: Dr. Mc Whiting Estimated blood loss: None. Findings and technique: Informedconsent for thoracentesis was obtained from the patient after discussion of procedure, risks and benefits. Final verification performed. Limited scanning with ultrasound demonstrated trace left pleural fluid. No solid or cystic mass. IMPRESSION: * Trace left pleural effusion. * Thoracentesis canceled due to inadequate fluid to perform procedure safely. Finalized by Mc Whiting MD on 04/18/2025 5:30 PM Radiographic studies obtained during the last 24 hrs independently reviewed for acute traumatic injuries. Allergies No Known Allergies Current Medications SCHEDULED acetaminophen, 1,000 mg, oral, Q6H OR acetaminophen, 1,000 mg, nasogastric, Q6H atorvastatin, 40 mg, oral, Nightly [COMPLETED] azithromycin, 500 mg, intravenous, Q24H FOLLOWED BY azithromycin, 250 mg, intravenous, Q24H busPIRone, 30 mg, oral, BID enoxaparin (LOVENOX) injection, 30 mg, subcutaneous, Q12H fluticasone furoate-vilanteroL, 1 puff, inhalation, Daily AND umeclidinium, 1 puff, inhalation,Daily furosemide, 40 mg, oral, Daily gabapentin, 600 mg, oral, Q8H KVNG ipratropium-albuteroL, 3 mL, nebulization, Q4H While awake lidocaine, 1 patch, transdermal, Daily methocarbamoL, 500 mg, oral, TID methylPREDNISolone sodium succinate, 40 mg, intravenous, Daily piperacillin-tazobactam (ZOSYN) IV, 4.5 g, intravenous, Once FOLLOWED BY piperacillin-tazobactam (ZOSYN) IV, 3.375 g, intravenous, Q8H QUEtiapine, 25 mg, oral, BID AND QUEtiapine, 50 mg, oral, Nightly sacubitriL-valsartan, 1 tablet, oral, BID sennosides-docusate sodium, 2 tablet, oral, Nightly sertraline, 100 mg, oral, Daily sodium chloride, 3 mL, intravenous, Q12H KVNG traZODone, 50 mg, oral, Nightly vancomycin, 20 mg/kg, intravenous, Once FOLLOWED BY [START ON 04/20/2025] vancomycin, 15 mg/kg, intravenous, Q24H PRN calcium gluconate OR calcium gluconate OR calcium gluconate dextrose dextrose 50 % in water (D50W) glucagon (human recombinant) HYDROmorphone magnesium sulfate OR magnesium sulfate ondansetron oxyCODONE OR oxyCODONE polyethylene glycol potassium chloride OR potassium chloride potassium chloride in water OR potassium chloride in water sodium phosphate IV OR sodium phosphate IV - central line OR sod phos di, mono-K phos mono sodium chloride sodium chloride Current Infusions JEMMA Joseph 04/19/25 1023 * Esther Malik [facility] - 04/19/2025 8:57 AM EDT Pharmacokinetic Consult - Vancomycin Dosing Doc Burns is a 75 y.o. male for whom pharmacy has been consulted for vancomycin dosing for pneumonia. Today is day 1 of vancomycin therapy. Relevant clinical data and objective history reviewed: Allergies: Patient has no known allergies. Results from last 3 days Lab Units 04/19/25 0316 04/19/25 0315 04/18/25 0323 04/17/25 0233 CREATININE mg/dL 0.91 -- 0.88 0.81 BUN mg/dL 22 -- 18 22 WBC x10E9/L -- 12.3* 12.6* 13.8* HEMOGLOBIN g/dL -- 11.6* 11.2* 11.1* HEMATOCRIT % -- 34.8* 33.0* 33.0* MCV fL -- 92 92 92 Temp Readings from Last 3 Encounters: 04/19/25 36.9 C (98.4 F) (Oral) 12/06/22 36.3 C (97.3 F) (Temporal) Renal Parameters: I/O last 3 completed shifts: In: 20.6 [I.V.:20.6] Out: 3500 [Urine:3500] Calculated CrCl (TBW): 64.3 ml/min Culture Data: Microbiology Results No results found for the last 168 hours. Concurrent Antibiotics: Anti-infectives (From admission, onward) Start Dose/Rate Route Frequency Ordered Stop 04/20/25 0900 vancomycin (VANCOCIN) 1,250 mg in sodium chloride 0.9 % 250 mL IVPB W/ADAPTER Placed in Followed by Linked Group 15 mg/kg 87.9 kg 167 mL/hr over 90 Minutes intravenous Every 24 hours 04/19/25 0854 04/19/25 1400 piperacillin-tazobactam (ZOSYN) 3.375 g in sodium chloride 0.9 % 50 mL IVPB W/ADAPTER Placed in Followed by Linked Group 3.375 g 12.5 mL/hr over 4 Hours intravenous Every 8 hours 04/19/25 0851 04/19/25 1000 piperacillin-tazobactam (ZOSYN) 4.5 g in sodium chloride 0.9 % 50 mL IVPB W/ADAPTER Placed in Followed by Linked Group 4.5 g 100 mL/hr over 30 Minutes intravenous Once 04/19/25 0851 04/19/25 0900 vancomycin (VANCOCIN) IVPB 1750 mg/500 mL in 0.9% sodium chloride (premix) Placed in Followed by Linked Group 20 mg/kg 87.9 kg 250 mL/hr over 120 Minutes intravenous Once 04/19/25 0854 04/16/25 0800 azithromycin (ZITHROMAX) 250 mg in sodium chloride 0.9 % 250 mL IVPB Placed in Followed by Linked Group 250 mg 253 mL/hr over 60 Minutes intravenous Every 24 hours 04/15/25 0750 04/20/25 0759 Recent Vancomycin Serum Concentrations: Indication: pneumonia Goal Vancomycin Range: AUC 400-600 mcg*hr/mL Assessment . Patient is being initiated on vancomycin therapy Renal function assessment: Stable No vancomycin level as been collected for this patient Patient-specific risk-factors for nephrotoxicity include: concomitant nephrotoxic medications and advanced age. Plan Will initiate vancomycin loading dose of 1750 mg IV x 1 dose, followed by a maintenance dose of vancomycin 1250 mg IV with a dosing interval of every 24 hours The next vancomycin trough and peak for AUC monitoring will be ordered for 04/22, unless clinically indicated sooner Please see electronic record for orders Pharmacy Dosing Service to follow serum concentrations and adjust as needed based on the patient's clinical status. Thank you for consulting. Esther Malik RPH * Claudia Nguyen RPH - 04/19/2025 8:51 AM EDT Pharmacist to Physician Communication Piperacillin/Tazobactam orders will automatically be evaluated by pharmacy for inclusion into the Extended Infusion Policy approved by the System P&T. Patients that meet the criteria will receive4.5 g loading dose followed by 3.375 g infused over 4 hours with frequency adjustment by renal function. Thank you, Claudia Nguyen RPH * Rylie Moreno MD - 04/19/2025 7:00 AM EDT SICU Academic Critical Care PROGRESS NOTE Admission Date: 04/14/2025 3:10 AM Attending Physician: Igor Steel DO Date of 1950 Hospital Day: 5 day(s) Doc Burns is a 75 y.o. male with past medical history of CAD status post stent, COPD, diabetes, hypertension, active lung cancer not on chemotherapy, and continued tobacco use, brought in by EMS from [place] after attempting to carry an electric bike up the stairs and subsequently falling backwards. Patient states he was attempting to climb approximately 14 stairs when he lost his balance and fell backwards. He notes the electric bike landed on his chest and left side. The bike weighs approximately 100 lb. Patient denies loss of consciousness. Patient is on aspirin and clopidogrel. Upon presentation to [place], patient was found to have multiple left-sided rib fractures,small left hemothorax and pulmonary contusion, and left scapular fracture. At [place], CT brain and CT cervicalspine were negative for any acute pathology. Per EMS, patient's SpO2 was trending downward over time and was placed on 6 L O2 nasal cannula. Patient does not have an oxygen requirement at baseline. Additionally, patient has had soft blood pressures with systolic in the 90s, he was given 1 L of normal saline. EMS states that patient also received ketamine 40 mg over 30 minutes at approximately 2:00 a.m. with improvement of his pain. Presently, patient reports left shoulder pain, left chest wall pain which is exacerbated by deep inspiration, and left abdominal pain. Otherwise, patient denies headache, changes in vision, dizziness, neck pain, anterior chest pain, shortness of breath, nausea, vomiting, numbness tingling or weakness of the extremities. Patient endorses smoking 3/4 of a pack ofcigarettes per day. Otherwise denies ETOH and additional drug use. Overnight Events: Overnight, patient became agitated and was attempting to fight the nursing staff. He received 5mg of Haldol and 1mg of Versed and was still aggressive, so he was started on Precedex. Precedex currently running at 0.3. He remains on high flow nasal cannula of 40 L at 60% FiO2. CXR this morning demonstrates worsening left upper lobe opacity c/f infection versus aspiration. Physical Exam: Vital Signs: BP 118/67 Pulse 59 Temp 36.9 C (98.4 F) (Oral) Resp 18 Ht 167.6 cm (5' 6 ) Wt 87.9 kg (193 lb 12.6 oz) SpO2 98% BMI 31.28 kg/m General: sleeping, in no acute distress HENT: Head atraumatic, normocephalic, external ears and nose are normal Eyes: Conjunctivae clear, non-icteric Pulmonary: Regular, bilateral breath sounds. Crackles to ausculation of L anterior lung field Cardiovascular: Regular rate and rhythm, radial pulses 2+ Abdomen: Soft, non-tender, non-distended Musculoskeletal: No obvious deformity in x4 extremities. L upper extremity arm sling in place Neurological: Does not follow commands Skin: Warm, dry, without jaundice Intake/Output Summary (Last 24 hours) at 04/19/2025 0806 Last data filed at 04/19/2025 0645 Gross per 24 hour Intake 20.6 ml Output 1700 ml Net -1679.4 ml O2 Device: High flow nasal cannula Ventilator Settings FiO2 (%): 60 % Invasive Hemodynamic [place] Results from last 3 days Lab Units 04/19/2531504/18/253 04/17/25 0233 BUN mg/dL 22 18 22 CREATININE mg/dL 0.91 0.88 0.81 POTASSIUM mmol/L 3.8 4.1 4.3 CO2 mmol/L 27 28 25 CHLORIDE mmol/L 105 109 110* No data from last 3 days. Results from last 3 days Lab Units 04/19/2531404/18/2532204/17/25232 WBC x10E9/L 12.3* 12.6* 13.8* HEMOGLOBIN g/dL 11.6* 11.2* 11.1* HEMATOCRIT % 34.8* 33.0* 33.0* PLATELETS X10E9/L 240 210 187 MCV fL 92 92 92 MCH pg 30.8 31.1 31.0 MCHC g/dL 33.4 33.9 33.6 RDW % 13.6 13.6 13.7 EOS ABS AUTO 10*3/uL 0.0 0.0 0.0 Microbiology Results No results found for the last 168 hours. Glucose Results from last 7 days Lab Units 04/19/2531504/18/25 0323 04/17/25 0233 04/16/25 0203 04/15/25 0344 04/14/25 0942 04/14/25 0920 04/14/25 0651 04/14/25 0624 04/14/25 0358 BEDSIDE GLUCOSE mg/dL -- -- -- -- -- 103* -- 246* 141* -- GLUCOSE mg/dL 92 110* 118* 125* 96 -- 98 -- -- 135* Lines/Drains Peripheral IV 04/14/25 Anterior;Left;Proximal Forearm (Active) Line Status No blood return;Saline locked 04/15/25 0400 Site Assessment Clean;Dry;Intact 04/15/25399 Dressing Type Occlusive;Transparent 04/15/25399 Dressing Status Clean;Dry;Intact 08/12/25 0400 Dressing Intervention Initial dressing 04/14/25 190 Peripheral IV 04/14/25 Right Antecubital (Active) Line Status No blood return;Saline locked;Flushed 04/15/25 040 Site Assessment Clean;Dry;Intact 04/15/25 040 Dressing Type Occlusive;Transparent 04/15/25 040 Dressing Status Clean;Dry;Intact 04/15/25 0400 Dressing Intervention Initial dressing 04/14/25 1900 Peripheral IV 04/14/25 Left Antecubital (Active) Line Status No blood return;Saline locked;Flushed;Alcohol sponge cap changed 04/15/25 040 Site Assessment Clean;Dry;Intact 04/15/25 040 Dressing Type Occlusive;Transparent 04/15/25 040 Dressing Status Clean;Dry;Intact 04/15/25 040 Dressing Intervention Initial dressing 04/14/251899 Dressing Change Due (Non-Gauze) 04/21/25 04/14/25 040 ACTIVE PROBLEM LIST: Trauma, fall Left 6th - 8th rib fxs Left small hemothorax Left pulmonary contusion Left scapular fracture Tobacco use disorder Hypertension Hyperkalemia ASSESSMENT/PLAN: Doc Burns is a 75 y.o. male with past medical history of CAD status post stent, COPD, diabetes, hypertension, active lung cancer not on chemotherapy, and continued tobacco use, brought in by EMS from [place] after attempting to carry an electric bike up the stairs and subsequently falling backwards. No LOC. Patient takes aspirin and clopidogrel. 1. Neuro Hospital Meds: Sedation: Precedex gtt @ 0.3 Analgesia: Tylenol, Lidocaine patch, Robaxin, Gabapentin, Dilaudid, Oxycodone Other: Buspar, Sertraline, Trazodone Home Meds: Buspar, Sertraline PMH: Insomnia PSH: None 2. Pulmonary Breathing Support: Supplemental O2 Settings: 40 L 60% high flow O2 SpO2: 90% Continuous pulse oximetry Hospital Meds: Duoneb, Breo-Ellipta, Incruse-Ellipta, Solu-Medrol Home Meds: Albuterol inhaler and nebulizer, Fluticasone PMH: COPD, Lung cancer PSH: None Left rib fractures 6-8, hemothorax, pulmonary contusion -daily chest x-ray -incentive spirometer -pain management -continue to monitor vitals and oxygen demand, patient is not on oxygen at home - Chest x-ray AM: Worsening right upper lobe opacity, concerning for infection versus aspiration -ABG AM: pH: 7.370, pCO2 46.6, PO2 83, HCO3 26.9 -IR consulted for left fluid collection drainage - IR declined drainage at this time - if collection worsens we will reconsult 3. Cardiovascular Hemodynamics: RRR Normotensive Pressors: None Goal MAP >65 Continuous cardiac monitoring Hospital Meds: Atorvastatin, sacubitriL-valsartan Home Meds: Norvasc, ASA, Lipitor, Lasix, metoprolol, Entresto, Plavix PMH: CAD, HLD, HTN PSH: None Code Status: Full 4. GI Diet: Regular Bowel Function: Monitor Hospital Meds: Zofran, Senna, Glycolax Home Meds: None PMH: T2DM PSH: None Tobacco use -patient endorses smoking 3/4 of a pack per day -patient was counseled on smoking cessation -patient was offered nicotine patch during hospital stay, declined at this time 5. Renal/Genitourinary Lab Results Component Value Date SODIUM 141 04/19/2025 SODIUM 143 04/18/2025 SODIUM 141 04/17/2025 CL 105 04/19/2025 CL 109 04/18/2025 CL 110 (H) 04/17/2025 K 3.8 04/19/2025 K 4.1 04/18/2025 K 4.3 04/17/2025 CO2 27 04/19/2025 CO2 28 04/18/2025 CO2 25 04/17/2025 Lab Results Component Value Date BUN 22 04/19/2025 BUN 18 04/18/2025 BUN 22 04/17/2025 CREATININE 0.91 04/19/2025 CREATININE 0.88 04/18/2025 CREATININE 0.81 04/17/2025 CALCIUM 9.3 04/19/2025 CALCIUM 8.8 04/18/2025 CALCIUM 8.5 04/17/2025 Will replace electrolytes PRN per ICU protocol Fluid Balance: IV Fluids: 0 UOP/24 H: 1.7 L Net Fluid/24H: -1.7 L Strict monitoring of Ins and Outs Intake/Output Summary (Last 24 hours) at 04/19/2025 0806 Last data filed at 04/19/2025 0645 Gross per 24 hour Intake 20.6 ml Output 1700 ml Net -1679.4 ml Hospital Meds: Lasix 40 daily Home Meds: None PMH: None PSH: None 6. Heme Labs: Lab Results Component Value Date HGB 11.6 (L) 04/19/2025 HGB 11.2 (L) 04/18/2025 HGB 11.1 (L) 04/17/2025 PLT 240 04/19/2025 PLT 210 04/18/2025 PLT 187 04/17/2025 Lab Results Component Value Date INR 1.0 04/14/2025 INR 1.1 12/05/2022 Type and Screen: A+ Blood Products Administered: 0 Will continue to monitor 7. ID Tmax/24H: Temp (24hrs), Av.8 C (98.3 F), Min:36.7 C (98.1 F), Max:36.9 C (98.5 F) Labs: Lab Results Component Value Date WBC 12.3 (H) 04/19/2025 WBC 12.6 (H) 04/18/2025 WBC 13.8 (H) 04/17/2025 Micro: Lower resp culture, pending Hospital Meds: Antibiotics: Azithro + Rocephin 8. Endocrine Lab Results Component Value Date GLU 92 04/19/2025 GLU 110 (H) 04/18/2025 GLU 118 (H) 04/17/2025 Goal Blood Glucose <180 mg/dL Hospital Meds: None Home Meds: None PMH: None PSH: None 9. Musculoskeletal PMH: None PSH: None PT/OT when able Left scapular fracture -x-ray left shoulder - displaced fx of coracoid -consult ortho: Recommend nonoperative treatment, applying ice to affected areas, with weight-bearing restrictions 10. Prophylaxis Respiratory: Not indicated GI: Not indicated DVT: SCD Cuffs, Lovenox 11. Lines PIV x2 Plan and management were discussed with the attending Dr. Aba Moreno MD Orthopaedic Surgery, PGY-1 SICU Service Cosigned by Donta Troncoso MD at 04/19/2025 12:12 PM EDT Associated attestation - Donta Troncoso MD - 04/19/2025 12:12 PM EDT Name: Doc Burns Date: 04/19/2025 Length of Stay: 5 day(s) ACTIVE PROBLEM LIST: Trauma, fall Left 6th - 8th rib fxs Left small hemothorax Left pulmonary contusion Left scapular fracture Tobacco use disorder Hypertension Hyperkalemia ASSESSMENT/PLAN: Doc Burns is a 75 y.o. male with past medical history of CAD status post stent, COPD, diabetes, hypertension, active lung cancer not on chemotherapy, and continued tobacco use, brought in by EMS from [place] after attempting to carry an electric bike up the stairs and subsequently falling backwards. No LOC. Patient takes aspirin and clopidogrel. . 1. Neuro: Neurochecks. Increased agitation Goal RASS of 0 Sedation: Precedex 2. Cardio: Continues hemodynamic monitoring Maintain map above 65 3. Resp: Maintain O2 sat > 92% Monitor for signs and respiratory distress Continues on high-flow nasal cannula Worsening chest x-ray Continue aggressive pulmonary hygiene and multimodal pain management Ventilator Settings FiO2 (%): 50 % 4. GI: Regular diet 5. Heme: Monitor H&H Transfuse for hb less than 7 or symptomatic anemia 6. Renal: Monitor urine output Monitor renal function ICU electrolyte replacement protocol Diurese as tolerated 7. ID: Monitor for signs and symptoms of sepsis Will change to Zosyn and vancomycin for possible hospital-acquired pneumonia. Check nasal PCR 8. Endo: Monitor blood sugar Use insulin sliding scale as needed 9. MS: Pressure ulcer prophylaxis 10: Prophylaxis: DVT mechanical prophylaxis DVT chemical prophylaxis Lovenox GI prophylaxis none 11. Lines: PIV x2 Dispo: Critical This patient remains critically ill and requires constant monitoring and titration of care by a Critical Care Independent Jeweler. Failure to do so may result in further organ system failure, imminent deterioration, or . Critical care time spent directly with the patient and family: 33 Critical care was time spent personally by me on the following activities: Development of treatmentplan with the patient or surrogate, discussions with consultants, discussions with the primary provider, ordering and performing treatments and interventions, ordering and review of laboratory studies, ordering and review of radiographic studies, pulse oximetry, re-evaluation of patient's condition, review of old charts, vascular access procedures, evaluation of patient's response to treatment, examination of patient, interpretation of cardiac output measurements and obtaining history from patient or surrogate Electronically signed by Donta Troncoso MD [facility] Trauma, Acute Care Surgery and Surgical Critical Care * Sandra Uribe MD - 04/18/2025 7:51 AM EDT SICU Academic Critical Care PROGRESS NOTE Admission Date: 04/14/2025 3:10 AM Attending Physician: Igor Steel DO Date of 1950 Hospital Day: 4 day(s) Doc Burns is a 75 y.o. male with past medical history of CAD status post stent, COPD, diabetes, hypertension, active lung cancer not on chemotherapy, and continued tobacco use, brought in by EMS from [place] after attempting to carry an electric bike up the stairs and subsequently falling backwards. Patient states he was attempting to climb approximately 14 stairs when he lost his balance and fell backwards. He notes the electric bike landed on his chest and left side. The bike weighs approximately 100 lb. Patient denies loss of consciousness. Patient is on aspirin and clopidogrel. Upon presentation to [place], patient was found to have multiple left-sided rib fractures,small left hemothorax and pulmonary contusion, and left scapular fracture. At [place], CT brain and CT cervicalspine were negative for any acute pathology. Per EMS, patient's SpO2 was trending downward over time and was placed on 6 L O2 nasal cannula. Patient does not have an oxygen requirement at baseline. Additionally, patient has had soft blood pressures with systolic in the 90s, he was given 1 L of normal saline. EMS states that patient also received ketamine 40 mg over 30 minutes at approximately 2:00 a.m. with improvement of his pain. Presently, patient reports left shoulder pain, left chest wall pain which is exacerbated by deep inspiration, and left abdominal pain. Otherwise, patient denies headache, changes in vision, dizziness, neck pain, anterior chest pain, shortness of breath, nausea, vomiting, numbness tingling or weakness of the extremities. Patient endorses smoking 3/4 of a pack ofcigarettes per day. Otherwise denies ETOH and additional drug use. Overnight Events: NAEO. Afebrile. Normotensive. Hb (13.2>12.7>11.4>10.8>11.1). WBC (9.6>14.8>13.8).ABG: pH 7.4, CO2: 40, O2: 83. Now on high flow O2 65% on 60L. Chest x-ray shows no significant changes. Physical Exam: Vital Signs: BP 135/69 Pulse 77 Temp 36.9 C (98.4 F) (Axillary) Resp 24 Ht 167.6 cm (5' 6 ) Wt 87.9 kg (193 lb 12.6 oz) SpO2 96% BMI 31.28 kg/m General: No distress, lying comfortably in bed, alert, interactive HEENT: Atraumatic EOMI PERRL 3mm, CN II-XII: grossly intact No Malocclusion TM Clear bilaterally Battles sign Absent Nares patent Dentition intact Neck: Trachea Midline Non Tender to palpation No pain with Flex / Ext / Lat Flex / Rotation, Axial Load & distraction Chest: Significant Left lateral chest wall tenderness to minimal palpation, No Crepitus, no ecchymosis. Bilateral wheezes Lungs: Normal breath sounds, diminished in the left lower bases. Unlabored, Nasal cannula 50L NC high flow 70% O2. Heart: Heart tones S1/S2, No Murmur noted Abd: Soft, No guarding, No rigidity (+) Appetite No Brusing Left abdominal tenderness and left flank tenderness to palpation Pelvis: Iliac crest-Non tender to compression Symphysis pubis- Non tender to compression Back: T Spine- non tender to palpation L Spine- non tender to palpation No wounds / ecchymosis Extremities: RUE: 5/5 strength LUE: Ear Pull Machine Operator strength intact, decreased range of motion of the left shoulder secondary to scapular fracture, pain with palpation of the left shoulder in the posterior aspect RLE: 5/5 strength LLE: 5/5 strength Pulses 2+ x 4 Intact to light touch No calf/thigh tenderness Neuro: Alert, pleasant, appropriate Oriented to person, place, time Neurovascularly intact throughout Intake/Output Summary (Last 24 hours) at 04/18/2025 0983 Last data filed at 04/18/2025 0600 Gross per 24 hour Intake -- Output 2850 ml Net -2850 ml O2 Device: High flow nasal cannula Ventilator Settings FiO2 (%): 65 % (post gas) Invasive Hemodynamic [place] Results from last 3 days Lab Units 04/18/25 0323 04/17/25 0233 04/16/25 0203 04/15/25 1512 BUN mg/dL -- CREATININE mg/dL 0.88 0.81 1.06 -- POTASSIUM mmol/L 4.1 4.3 4.4 4.3 CO2 mmol/L -- CHLORIDE mmol/L 109 110* 107 -- No data from last 3 days. Results from last 3 days Lab Units 04/18/2532204/17/2523204/16/25202 WBC x10E9/L 12.6* 13.8* 14.8* HEMOGLOBIN g/dL 11.2* 11.1* 10.8* HEMATOCRIT % 33.0* 33.0* 31.9* PLATELETS X10E9/L 210 187 165 MCV fL 92 92 92 MCH pg 31.1 31.0 31.0 MCHC g/dL 33.9 33.6 33.8 RDW % 13.6 13.7 13.6 EOS ABS AUTO 10*3/uL 0.0 0.0 0.0 Microbiology Results No results found for the last 168 hours. Glucose Results from last 7 days Lab Units 04/18/25 0323 04/17/25 0233 04/16/25 0203 04/15/25 0344 04/14/25 0942 04/14/25 0920 04/14/25 0651 04/14/25 0624 04/14/25 0358 BEDSIDE GLUCOSE mg/dL -- -- -- -- 103* -- 246* 141* -- GLUCOSE mg/dL 110* 118* 125* 96 -- 98 -- -- 135* Lines/Drains Peripheral IV 04/14/25 Anterior;Left;Proximal Forearm (Active) Line Status No blood return;Saline locked 04/15/25399 Site Assessment Clean;Dry;Intact 04/15/25399 Dressing Type Occlusive;Transparent 04/15/25399 Dressing Status Clean;Dry;Intact 08/12/25 0400 Dressing Intervention Initial dressing 04/14/25 1900 Peripheral IV 04/14/25 Right Antecubital (Active) Line Status No blood return;Saline locked;Flushed 04/15/25 040 Site Assessment Clean;Dry;Intact 04/15/25 040 Dressing Type Occlusive;Transparent 04/15/25 0400 Dressing Status Clean;Dry;Intact 04/15/25 0400 Dressing Intervention Initial dressing 04/14/25 1900 Peripheral IV 04/14/25 Left Antecubital (Active) Line Status No blood return;Saline locked;Flushed;Alcohol sponge cap changed 04/15/25 040 Site Assessment Clean;Dry;Intact 04/15/25 040 Dressing Type Occlusive;Transparent 04/15/25 040 Dressing Status Clean;Dry;Intact 04/15/25 040 Dressing Intervention Initial dressing 04/14/251899 Dressing Change Due (Non-Gauze) 04/21/25 04/14/25 0401 ACTIVE PROBLEM LIST: Trauma, fall Left 6th - 8th rib fxs Left small hemothorax Left pulmonary contusion Left scapular fracture Tobacco use disorder Hypertension Hyperkalemia ASSESSMENT/PLAN: Doc Burns is a 75 y.o. male with past medical history of CAD status post stent, COPD, diabetes, hypertension, active lung cancer not on chemotherapy, and continued tobacco use, brought in by EMS from [place] after attempting to carry an electric bike up the stairs and subsequently falling backwards. No LOC. Patient takes aspirin and clopidogrel. 1. Neuro Hospital Meds: Sedation: None Analgesia: Tylenol, Lidocaine patch, Robaxin, Gabapentin, Dilaudid, Oxycodone Other: Buspar, Sertraline, Trazodone Home Meds: Buspar, Sertraline PMH: Insomnia PSH: None 2. Pulmonary Breathing Support: Supplemental O2 Settings: 60 L 65% high flow O2 SpO2: 90% Continuous pulse oximetry Hospital Meds: Duoneb, Breo-Ellipta, Umeclidinum Home Meds: Albuterol inhaler and nebulizer, Fluticasone PMH: COPD, Lung cancer PSH: None Left rib fractures 6-8, hemothorax, pulmonary contusion -repeat chest x-ray -incentive spirometer -pain management -presently on 6 L nasal cannula with SpO2 93% -continue to monitor vitals and oxygen demand, patient is not on oxygen at home - Chest x-ray AM: no significant changes. -ABG: O2 83. -IR consulted for left fluid collection drainage. 3. Cardiovascular Hemodynamics: Bradycardic, regular rate Normotensive Pressors: None Goal MAP >65 Continuous cardiac monitoring Hospital Meds: Atorvastatin, sacubitriL-valsartan Home Meds: Norvasc, ASA, Lipitor, Lasix, metoprolol, Entresto, Plavix PMH: CAD, HLD, HTN PSH: None Code Status: Full 4. GI Diet: Regular Bowel Function: Monitor Hospital Meds: Zofran, Senna, Glycolax Home Meds: None PMH: T2DM PSH: None Tobacco use -patient endorses smoking 3/4 of a pack per day -patient was counseled on smoking cessation -patient was offered nicotine patch during hospital stay, declined at this time 5. Renal/Genitourinary Lab Results Component Value Date SODIUM 143 04/18/2025 SODIUM 141 04/17/2025 SODIUM 136 04/16/2025 CL 109 04/18/2025 CL 110 (H) 04/17/2025 CL 107 04/16/2025 K 4.1 04/18/2025 K 4.3 04/17/2025 K 4.4 04/16/2025 CO2 28 04/18/2025 CO2 25 04/17/2025 CO2 23 04/16/2025 Lab Results Component Value Date BUN 18 04/18/2025 BUN 22 04/17/2025 BUN 25 04/16/2025 CREATININE 0.88 04/18/2025 CREATININE 0.81 04/17/2025 CREATININE 1.06 04/16/2025 CALCIUM 8.8 04/18/2025 CALCIUM 8.5 04/17/2025 CALCIUM 8.2 (L) 04/16/2025 Will replace electrolytes PRN per ICU protocol Fluid Balance: IV Fluids: 0 UOP/24 H: 2.8L Net Fluid/24H: -2.8L Strict monitoring of Ins and Outs Hospital Meds: None Home Meds: None PMH: None PSH: None 6. Heme Labs: Lab Results Component Value Date HGB 11.2 (L) 04/18/2025 HGB 11.1 (L) 04/17/2025 HGB 10.8 (L) 04/16/2025 PLT 210 04/18/2025 PLT 187 04/17/2025 PLT 165 04/16/2025 Lab Results Component Value Date INR 1.0 04/14/2025 INR 1.1 12/05/2022 Type and Screen: A+ Blood Products Administered: 0 Will continue to monitor 7. ID Tmax/24H: Afebrile Labs: Lab Results Component Value Date WBC 12.6 (H) 04/18/2025 WBC 13.8 (H) 04/17/2025 WBC 14.8 (H) 04/16/2025 Micro: Lower resp c#, pending Hospital Meds: Antibiotics: Azithro + Rocephin 8. Endocrine Lab Results Component Value Date GLU 110 (H) 04/18/2025 GLU 118 (H) 04/17/2025 GLU 125 (H) 04/16/2025 Goal Blood Glucose <180 mg/dL Hospital Meds: None Home Meds: None PMH: None PSH: None 9. Musculoskeletal PMH: None PSH: None PT/OT when able Left scapular fracture -x-ray left shoulder - displaced fx of coracoid -consult ortho: Recommend nonoperative treatment, applying ice to affected areas, with weight-bearing restrictions 10. Prophylaxis Respiratory: Not indicated GI: Not indicated DVT: SCD Cuffs, Lovenox 11. Lines PIV x2 Plan and management were discussed with the attending Dr. Aba Uribe MD SICU Resident, PGY-1 Cosigned by Donta Troncoso MD at 04/18/2025 2:22 PM EDT Associated attestation - Donta Troncoso MD - 04/18/2025 2:22 PM EDT Attending Attestation: I saw the patient. I participated and was physically present during the critical/vieyra portions of the service. I was directly involved in the management and treatment plan of the patient. I reviewed the resident's note. Additional Notes/Findings: Wean high-flow nasal cannula as tolerated To go today for pigtail placement to drain hemothorax Continue multimodal pain management and aggressive pulmonary hygiene * Sandra Uribe MD - 04/17/2025 7:31 AM EDT SICU Academic Critical Care PROGRESS NOTE Admission Date: 04/14/2025 3:10 AM Attending Physician: Igor Steel DO Date of 1950 Hospital Day: 3 day(s) Doc Burns is a 75 y.o. male with past medical history of CAD status post stent, COPD, diabetes, hypertension, active lung cancer not on chemotherapy, and continued tobacco use, brought in by EMS from [place] after attempting to carry an electric bike up the stairs and subsequently falling backwards. Patient states he was attempting to climb approximately 14 stairs when he lost his balance and fell backwards. He notes the electric bike landed on his chest and left side. The bike weighs approximately 100 lb. Patient denies loss of consciousness. Patient is on aspirin and clopidogrel. Upon presentation to [place], patient was found to have multiple left-sided rib fractures,small left hemothorax and pulmonary contusion, and left scapular fracture. At [place], CT brain and CT cervicalspine were negative for any acute pathology. Per EMS, patient's SpO2 was trending downward over time and was placed on 6 L O2 nasal cannula. Patient does not have an oxygen requirement at baseline. Additionally, patient has had soft blood pressures with systolic in the 90s, he was given 1 L of normal saline. EMS states that patient also received ketamine 40 mg over 30 minutes at approximately 2:00 a.m. with improvement of his pain. Presently, patient reports left shoulder pain, left chest wall pain which is exacerbated by deep inspiration, and left abdominal pain. Otherwise, patient denies headache, changes in vision, dizziness, neck pain, anterior chest pain, shortness of breath, nausea, vomiting, numbness tingling or weakness of the extremities. Patient endorses smoking 3/4 of a pack ofcigarettes per day. Otherwise denies ETOH and additional drug use. Overnight Events: NAEO. Afebrile. Normotensive. Hb (13.2>12.7>11.4>10.8>11.1). WBC (9.6>14.8>13.8).ABG: pH 7.36, CO2: 40, O2: 55. Now on high flow O2 70% on 50L. Chest x-ray shows no significant changes. Physical Exam: Vital Signs: BP 133/66 Pulse 60 Temp 36.6 C (97.9 F) (Oral) Resp 17 Ht 167.6 cm (5' 6 ) Wt 92.6 kg (204 lb 2.3 oz) SpO2 92% BMI 32.95 kg/m General: No distress, lying comfortably in bed, alert, interactive HEENT: Atraumatic EOMI PERRL 3mm, CN II-XII: grossly intact No Malocclusion TM Clear bilaterally Battles sign Absent Nares patent Dentition intact Neck: Trachea Midline Non Tender to palpation No pain with Flex / Ext / Lat Flex / Rotation, Axial Load & distraction Chest: Significant Left lateral chest wall tenderness to minimal palpation, No Crepitus, no ecchymosis Lungs: Normal breath sounds, diminished in the left lower bases. Unlabored, Nasal cannula 50L NC high flow 70% O2. Heart: Heart tones S1/S2, No Murmur noted Abd: Soft, No guarding, No rigidity (+) Appetite No Brusing Left abdominal tenderness and left flank tenderness to palpation Pelvis: Iliac crest-Non tender to compression Symphysis pubis- Non tender to compression Back: T Spine- non tender to palpation L Spine- non tender to palpation No wounds / ecchymosis Extremities: RUE: 5/5 strength LUE: Ear Pull Machine Operator strength intact, decreased range of motion of the left shoulder secondary to scapular fracture, pain with palpation of the left shoulder in the posterior aspect RLE: 5/5 strength LLE: 5/5 strength Pulses 2+ x 4 Intact to light touch No calf/thigh tenderness Neuro: Alert, pleasant, appropriate Oriented to person, place, time Neurovascularly intact throughout Intake/Output Summary (Last 24 hours) at 04/17/2025 0731 Last data filed at 04/17/2025 0000 Gross per 24 hour Intake -- Output 1350 ml Net -1350 ml O2 Device: High flow nasal cannula Ventilator Settings FiO2 (%): (S) 70 % (per ABG) Invasive Hemodynamic [place] Results from last 3 days Lab Units 04/17/25 0233 04/16/25 0203 04/15/25 1512 04/15/25 0344 04/14/25 1637 04/14/25 0920 BUN mg/dL -- 28* -- 33* CREATININE mg/dL 0.81 1.06 -- 1.09 -- 1.25 POTASSIUM mmol/L 4.3 4.4 4.3 4.2 4.2 5.1* CO2 mmol/L -- 22 -- 23 CHLORIDE mmol/L 110* 107 -- 110* -- 109 No data from last 3 days. Results from last 3 days Lab Units 04/17/2523204/16/2520204/15/2534304/14/25 0920 WBC x10E9/L 13.8* 14.8* 9.6 13.8* HEMOGLOBIN g/dL 11.1* 10.8* 11.4* 12.7* HEMATOCRIT % 33.0* 31.9* 34.3* 38.1* PLATELETS X10E9/L 187 165 155 227 MCV fL 92 92 94 94 MCH pg 31.0 31.0 31.5 31.3 MCHC g/dL 33.6 33.8 33.4 33.4 RDW % 13.7 13.6 14.0 13.6 EOS ABS AUTO 10*3/uL 0.0 0.0 0.3 0.0 Microbiology Results No results found for the last 168 hours. Glucose Results from last 7 days Lab Units 04/17/25 0233 04/16/25 0203 04/15/25 0344 04/14/25 0942 04/14/25 0920 04/14/25 0651 04/14/25 0624 04/14/25 0358 BEDSIDE GLUCOSE mg/dL -- -- -- 103* -- 246* 141* -- GLUCOSE mg/dL 118* 125* 96 -- 98 -- -- 135* Lines/Drains Peripheral IV 04/14/25 Anterior;Left;Proximal Forearm (Active) Line Status No blood return;Saline locked 04/15/25 040 Site Assessment Clean;Dry;Intact 04/15/25399 Dressing Type Occlusive;Transparent 04/15/25 0400 Dressing Status Clean;Dry;Intact 04/15/25 0400 Dressing Intervention Initial dressing 04/14/25 1900 Peripheral IV 04/14/25 Right Antecubital (Active) Line Status No blood return;Saline locked;Flushed 04/15/25 040 Site Assessment Clean;Dry;Intact 04/15/25 0400 Dressing Type Occlusive;Transparent 04/15/25 0400 Dressing Status Clean;Dry;Intact 04/15/25 0400 Dressing Intervention Initial dressing 04/14/25 1900 Peripheral IV 04/14/25 Left Antecubital (Active) Line Status No blood return;Saline locked;Flushed;Alcohol sponge cap changed 04/15/25 040 Site Assessment Clean;Dry;Intact 04/15/25 040 Dressing Type Occlusive;Transparent 04/15/25 040 Dressing Status Clean;Dry;Intact 04/15/25 0400 Dressing Intervention Initial dressing 04/14/251899 Dressing Change Due (Non-Gauze) 04/21/25 04/14/25 040 ACTIVE PROBLEM LIST: Trauma, fall Left 6th - 8th rib fxs Left small hemothorax Left pulmonary contusion Left scapular fracture Tobacco use disorder Hypertension Hyperkalemia ASSESSMENT/PLAN: Doc Burns is a 75 y.o. male with past medical history of CAD status post stent, COPD, diabetes, hypertension, active lung cancer not on chemotherapy, and continued tobacco use, brought in by EMS from [place] after attempting to carry an electric bike up the stairs and subsequently falling backwards. No LOC. Patient takes aspirin and clopidogrel. 1. Neuro Hospital Meds: Sedation: None Analgesia: Tylenol, Lidocaine patch, Robaxin, Gabapentin, Dilaudid, Oxycodone Other: None Home Meds: Buspar, Sertraline PMH: Insomnia PSH: None 2. Pulmonary Breathing Support: Supplemental O2 Settings: 50 L 70% high flow O2 SpO2: 90% Continuous pulse oximetry Hospital Meds: Duoneb, Breo-Ellipta, Umeclidinum Home Meds: Albuterol inhaler and nebulizer, Fluticasone PMH: COPD, Lung cancer PSH: None Left rib fractures 6-8, hemothorax, pulmonary contusion -repeat chest x-ray -incentive spirometer -pain management -presently on 6 L nasal cannula with SpO2 93% -continue to monitor vitals and oxygen demand, patient is not on oxygen at home - Chest x-ray AM: no significant changes. -ABG: O2 55. 3. Cardiovascular Hemodynamics: Bradycardic, regular rate Normotensive Pressors: None Goal MAP >65 Continuous cardiac monitoring Hospital Meds: Atorvastatin, sacubitriL-valsartan Home Meds: Norvasc, ASA, Lipitor, Lasix, metoprolol, Entresto, Plavix PMH: CAD, HLD, HTN PSH: None Code Status: Full 4. GI Diet: Regular Bowel Function: Monitor Hospital Meds: Zofran, Senna, Glycolax Home Meds: None PMH: T2DM PSH: None Tobacco use -patient endorses smoking 3/4 of a pack per day -patient was counseled on smoking cessation -patient was offered nicotine patch during hospital stay, declined at this time 5. Renal/Genitourinary Lab Results Component Value Date SODIUM 141 04/17/2025 SODIUM 136 04/16/2025 SODIUM 138 04/15/2025 CL 110 (H) 04/17/2025 CL 107 04/16/2025 CL 110 (H) 04/15/2025 K 4.3 04/17/2025 K 4.4 04/16/2025 K 4.3 04/15/2025 CO2 25 04/17/2025 CO2 23 04/16/2025 CO2 22 04/15/2025 Lab Results Component Value Date BUN 22 04/17/2025 BUN 25 04/16/2025 BUN 28 (H) 04/15/2025 CREATININE 0.81 04/17/2025 CREATININE 1.06 04/16/2025 CREATININE 1.09 04/15/2025 CALCIUM 8.5 04/17/2025 CALCIUM 8.2 (L) 04/16/2025 CALCIUM 8.2 (L) 04/15/2025 Will replace electrolytes PRN per ICU protocol Fluid Balance: IV Fluids: 0 UOP/24 H: 1.3L Net Fluid/24H: -1.3L Strict monitoring of Ins and Outs Hospital Meds: None Home Meds: None PMH: None PSH: None 6. Heme Labs: Lab Results Component Value Date HGB 11.1 (L) 04/17/2025 HGB 10.8 (L) 04/16/2025 HGB 11.4 (L) 04/15/2025 PLT 187 04/17/2025 PLT 165 04/16/2025 PLT 155 04/15/2025 Lab Results Component Value Date INR 1.0 04/14/2025 INR 1.1 12/05/2022 Type and Screen: A+ Blood Products Administered: 0 Will continue to monitor 7. ID Tmax/24H: Afebrile Labs: Lab Results Component Value Date WBC 13.8 (H) 04/17/2025 WBC 14.8 (H) 04/16/2025 WBC 9.6 04/15/2025 Micro: Lower resp c#, pending Hospital Meds: Antibiotics: Azithro + Rocephin 8. Endocrine Lab Results Component Value Date GLU 118 (H) 04/17/2025 GLU 125 (H) 04/16/2025 GLU 96 04/15/2025 Goal Blood Glucose <180 mg/dL Hospital Meds: None Home Meds: None PMH: None PSH: None 9. Musculoskeletal PMH: None PSH: None PT/OT when able Left scapular fracture -x-ray left shoulder - displaced fx of coracoid -consult ortho: Recommend nonoperative treatment, applying ice to affected areas, with weight-bearing restrictions 10. Prophylaxis Respiratory: Not indicated GI: Not indicated DVT: SCD Cuffs, Lovenox 11. Lines PIV x2 Plan and management were discussed with the attending Dr. Aba Uribe MD SICU Resident, PGY-1 Cosigned by Donta Troncoso MD at 04/17/2025 12:32 PM EDT Associated attestation - Donta Troncoso MD - 04/17/2025 12:32 PM EDT Name: Doc Burns Date: 04/17/2025 Length of Stay: 3 day(s) ACTIVE PROBLEM LIST: Trauma, fall Left 6th - 8th rib fxs Left small hemothorax Left pulmonary contusion Left scapular fracture Tobacco use disorder Hypertension Hyperkalemia ASSESSMENT/PLAN: Doc Burns is a 75 y.o. male with past medical history of CAD status post stent, COPD, diabetes, hypertension, active lung cancer not on chemotherapy, and continued tobacco use, brought in by EMS from [place] after attempting to carry an electric bike up the stairs and subsequently falling backwards. No LOC. Patient takes aspirin and clopidogrel. . 1. Neuro: Neurochecks 2. Cardio: Continues hemodynamic monitoring Maintain map above 65 3. Resp: Maintain O2 sat > 92% Monitor for signs and respiratory distress Continues to require high-flow nasal cannula Continue treatment for COPD exacerbation including Solu-Medrol and antibiotics Will get follow-up chest CT to evaluate left-sided effusion and or hemothorax Ventilator Settings FiO2 (%): 60 % 4. GI: Regular diet 5. Heme: Monitor H&H Transfuse for hb less than 7 or symptomatic anemia 6. Renal: Monitor urine output Monitor renal function ICU electrolyte replacement protocol Attempt diuresis 7. ID: Monitor for signs and symptoms of sepsis On azithromycin and Rocephin 8. Endo: Monitor blood sugar Use insulin sliding scale as needed 9. MS: Pressure ulcer prophylaxis 10: Prophylaxis: DVT mechanical prophylaxis DVT chemical prophylaxis Lovenox GI prophylaxis none 11. Lines: PIV x2 Dispo: Critical This patient remains critically ill and requires constant monitoring and titration of care by a Critical Care Independent Jeweler. Failure to do so may result in further organ system failure, imminent deterioration, or . Critical care time spent directly with the patient and family: 33 Critical care was time spent personally by me on the following activities: Development of treatmentplan with the patient or surrogate, discussions with consultants, discussions with the primary provider, ordering and performing treatments and interventions, ordering and review of laboratory studies, ordering and review of radiographic studies, pulse oximetry, re-evaluation of patient's condition, review of old charts, vascular access procedures, evaluation of patient's response to treatment, examination of patient, interpretation of cardiac output measurements and obtaining history from patient or surrogate Electronically signed by Donta Troncoso MD [facility] Trauma, Acute Care Surgery and Surgical Critical Care * Fang Doyle, [employer]EARCH SCIENTIST-CONTACT CENTER CONSULTANT - 04/17/2025 7:30 AM EDT TRAUMA SURGERY - PROGRESS NOTE Patient: Doc Burns Date of : 1950 AGE 75 y.o. SEX male Assessment / Plan Doc Burns 75 y.o. male Injuries/Traumatic issues: 1. Traumatic fall -TraumaGram -imaging obtained at outside hospital, reveals left rib fractures 6-8, hemothorax and left pulmonary contusion, and left scapular fracture -chest x-ray -left shoulder x-ray -TraumaLabs -CMP -CBC -Coags, PT/INR -Amylase -Lipase -Ethanol -Urine Drug screen -Urinalysis -Trauma Meds -multimodal pain management -fentanyl 50 mcg -cardiac monitoring -monitor vitals -EKG 2. Hypoxia secondary to Left rib fractures 6-8, hemothorax, pulmonary contusion COPD exacerbation -repeat chest x-ray -incentive spirometer -pain management -presently on 6 L nasal cannula with SpO2 93% -continue to monitor vitals and oxygen demand, patient is not on oxygen at home - patient with increased oxygen requirement, now on high flow - start IV steroids and antibiotics - schedule DuoNebs 3. Left scapular fracture -x-ray left shoulder -consult ortho: Recommend nonoperative treatment, applying ice to affected areas, with weight-bearing restrictions 4. Tobacco use -patient endorses smoking 3/4 of a pack per day -patient was counseled on smoking cessation -patient was offered nicotine patch during hospital stay, declined at this time Comorbidities/Medical issues: Neuro- Pulm-history of lung cancer Cardio-CAD status post stent, hypertension, hyperlipidemia GI- - Heme- ID- MSK- Endo- Lytes- Lines and Tubes: Peripheral IV Pain control: Multimodal pain management Nutrition: Normal diet Prophylaxis: EPC cuffs, Lovenox Disposition: - PT/OT recommendation: SNF - Discharge plan: SNF - Barriers to discharge: ICU/high flow - Level of care to be continued: SICU Medical Decision Making: High Subjective Patient sitting up in chair - high flow increased to 70%. Some confusion this am - not sure if patient is sleeping Objective Vital signs: Vitals: 04/17/25 0100 04/17/25 0200 04/17/25 0300 04/17/25 0316 BP: 143/63 156/73 133/66 Pulse: 64 65 58 60 Resp: 16 21 16 17 Temp: 36.6 C (97.9 F) TempSrc: Oral SpO2: 98% 97% 97% 92% Weight: Height: Temperature Range Last 24 Hours : Temp: 36.6 C (97.9 F) Temp Av.6 C (97.9 F) Min: 36.5 C (97.7F) Max: 36.8 C (98.2 F) Admit Weight: 93.4 kg (205 lb 14.6 oz) Body mass index is 32.95 kg/m . Last Weights: Wt Readings from Last 3 Encounters: 04/16/25 92.6 kg (204 lb 2.3 oz) 02/20/25 81.2 kg (179 lb) 10/10/24 78.9 kg (174 lb) I/O's: Intake/Output Summary (Last 24 hours) at 04/17/2025 0730 Last data filed at 04/17/2025 0000 Gross per 24 hour Intake -- Output 1350 ml Net -1350 ml Physical Exam Physical Exam Constitutional He is oriented to person, place, and time. Vitals reviewed. Eyes: EOM are normal. Pupils are equal, round, and reactive to light. Cardiovascular: Normal rate and regular rhythm. Pulses: intact distal pulses Radial pulses are 2+ on the right side and 2+ on the left side. Dorsalis pedis pulses are 1+ on the right side and 1+ on the left side. Heart Sounds: normal heart sounds. Pulmonary/Chest: Effort normal. He has wheezes. Abdominal: Bowel sounds are normal. He exhibits no distension. Soft. There is no abdominal tenderness. Musculoskeletal: General: Normal range of motion. Vascular: Right Lower Extremity Right lower extremity pulses DP: 1+ Left Lower Extremity Left lower extremity pulses DP: 1+ Right Upper Extremity Right upper extremity pulses Radial: 2+ Left Upper Extremity Left upper extremity pulses Radial: 2+ Neurological: He is alert and oriented to person, place, and time. Skin: Skin is warm and dry. Psychiatric: His behavior is normal. Vitals reviewed. Labs Results from last 7 days Lab Units 04/17/25 0233 04/16/25 0203 04/15/25 0344 04/14/25 0920 04/14/25 0358 WBC x10E9/L 13.8* 14.8* 9.6 13.8* 15.8* HEMOGLOBIN g/dL 11.1* 10.8* 11.4* 12.7* 13.2 HEMATOCRIT % 33.0* 31.9* 34.3* 38.1* 39.3 PLATELETS X10E9/L 187 165 155 227 216 Results from last 7 days Lab Units 04/17/25 0233 04/16/25 0203 04/15/25 1512 04/15/25 0344 04/14/25 1637 04/14/25 0942 04/14/25 0920 04/14/25 0624 04/14/25 0358 SODIUM mmol/L 141 136 -- 138 -- -- 139 -- 141 POTASSIUM mmol/L 4.3 4.4 4.3 4.2 4.2 -- 5.1* -- 5.3* CO2 mmol/L 25 23 -- 22 -- -- 23 -- 23 BUN mg/dL 22 25 -- 28* -- -- 33* -- 29* CREATININE mg/dL 0.81 1.06 -- 1.09 -- -- 1.25 -- 1.28 BEDSIDE GLUCOSE mg/dL -- -- -- -- -- 103* -- < > -- GLUCOSE mg/dL 118* 125* -- 96 -- -- 98 -- 135* < > = values in this interval not displayed. Results from last 7 days Lab Units 04/14/25 0358 INR 1.0 PROTIME sec 11.1 APTT sec 25* Labs obtained during the last 24 hrs. independently reviewed. Recent Studies X-ray chest 1 view Result Date: 04/17/2025 CHEST ONE VIEW COMPARISON: 04/16/2025 HISTORY: follow up on rib fractures. Impression: 1. Stable left basilar airspace disease and small left effusion. Diffuse interstitial opacities, not significantly changed. 2. No evidence for a pneumothorax. Finalized by Aron Feldman MD on04/17/2025 4:53 AM Radiographic studies obtained during the last 24 hrs independently reviewed for acute traumatic injuries. Allergies No Known Allergies Current Medications SCHEDULED acetaminophen, 1,000 mg, oral, Q6H OR acetaminophen, 1,000 mg, nasogastric, Q6H atorvastatin, 40 mg, oral, Nightly [COMPLETED] azithromycin, 500 mg, intravenous, Q24H FOLLOWED BY azithromycin, 250 mg, intravenous, Q24H busPIRone, 30 mg, oral, BID cefTRIAXone (ROCEPHIN) IV, 1,000 mg, intravenous, Q24H enoxaparin (LOVENOX) injection, 30 mg, subcutaneous, Q12H fluticasone furoate-vilanteroL, 1 puff, inhalation, Daily AND umeclidinium, 1 puff, inhalation,Daily gabapentin, 600 mg, oral, Q8H KVNG ipratropium-albuteroL, 3 mL, nebulization, Q4H While awake lidocaine, 1 patch, transdermal, Daily methocarbamoL, 500 mg, oral, TID methylPREDNISolone sodium succinate, 40 mg, intravenous, Daily sacubitriL-valsartan, 1 tablet, oral, BID sennosides-docusate sodium, 2 tablet, oral, Nightly sertraline, 100 mg, oral, Daily sodium chloride, 3 mL, intravenous, Q12H KVNG PRN calcium gluconate OR calcium gluconate OR calcium gluconate dextrose dextrose 50 % in water (D50W) glucagon (human recombinant) HYDROmorphone magnesium sulfate OR magnesium sulfate ondansetron oxyCODONE OR oxyCODONE polyethylene glycol potassium chloride OR potassium chloride potassium chloride in water OR potassium chloride in water sodium phosphate IV OR sodium phosphate IV - central line OR sod phos di, mono-K phos mono sodium chloride Current Infusions JEMMA Haley Trauma can be reached via Patient Touch Pager: [phone] JEMMA Haley 04/16/25 2124 JEMMA Haley 04/17/25 [id number] * JEMMA Haley - 04/16/2025 1:35 PM EDT TRAUMA SURGERY - PROGRESS NOTE Patient: Doc Burns Date of : 1950 AGE 75 y.o. SEX male Assessment / Plan Doc Burns 75 y.o. male Injuries/Traumatic issues: 1. Traumatic fall -TraumaGram -imaging obtained at outside hospital, reveals left rib fractures 6-8, hemothorax and left pulmonary contusion, and left scapular fracture -chest x-ray -left shoulder x-ray -TraumaLabs -CMP -CBC -Coags, PT/INR -Amylase -Lipase -Ethanol -Urine Drug screen -Urinalysis -Trauma Meds -multimodal pain management -fentanyl 50 mcg -cardiac monitoring -monitor vitals -EKG 2. Left rib fractures 6-8, hemothorax, pulmonary contusion -repeat chest x-ray -incentive spirometer -pain management -presently on 6 L nasal cannula with SpO2 93% -continue to monitor vitals and oxygen demand, patient is not on oxygen at home 3. Left scapular fracture -x-ray left shoulder -consult ortho: Recommend nonoperative treatment, applying ice to affected areas, with weight-bearing restrictions 4. Tobacco use -patient endorses smoking 3/4 of a pack per day -patient was counseled on smoking cessation -patient was offered nicotine patch during hospital stay, declined at this time 5. COPD exacerbation - patient with increased oxygen requirement, now on high flow - start IV steroids and antibiotics - schedule DuoNebs Comorbidities/Medical issues: Neuro- Pulm-history of lung cancer Cardio-CAD status post stent, hypertension, hyperlipidemia GI- - Heme- ID- MSK- Endo- Lytes- Lines and Tubes: Peripheral IV Pain control: Multimodal pain management Nutrition: Normal diet Prophylaxis: EPC cuffs, Lovenox Disposition: - PT/OT recommendation: SNF - Discharge plan: SNF - Barriers to discharge: ICU/high flow - Level of care to be continued: SICU Medical Decision Making: High Subjective Patient is sitting up in chair this morning. Patient was noted to be hypoxic per ABG with PO2 of 70, patient placed on high flow 50%. Patient being treated for COPD exacerbation with steroids and antibiotics Spirometer with good technique Objective Vital signs: Vitals: 04/16/25 0856 04/16/25 1129 04/16/25 1133 04/16/25 1200 BP: Pulse: 68 75 75 Resp: 18 24 24 Temp: 36.5 C (97.7 F) TempSrc: SpO2: 98% 97% 97% Weight: Height: Temperature Range Last 24 Hours : Temp: 36.5 C (97.7 F) Temp Av.6 C (97.9 F) Min: 36.5 C (97.7F) Max: 36.7 C (98.1 F) Admit Weight: 93.4 kg (205 lb 14.6 oz) Body mass index is 32.95 kg/m . Last Weights: Wt Readings from Last 3 Encounters: 04/16/25 92.6 kg (204 lb 2.3 oz) 02/20/25 81.2 kg (179 lb) 10/10/24 78.9 kg (174 lb) I/O's: Intake/Output Summary (Last 24 hours) at 04/16/2025 1337 Last data filed at 04/16/2025 1200 Gross per 24 hour Intake -- Output 2750 ml Net -2750 ml Physical Exam Physical Exam Constitutional He is oriented to person, place, and time. Vitals reviewed. Eyes: EOM are normal. Pupils are equal, round, and reactive to light. Cardiovascular: Normal rate and regular rhythm. Pulses: intact distal pulses Radial pulses are 2+ on the right side and 2+ on the left side. Dorsalis pedis pulses are 1+ on the right side and 1+ on the left side. Heart Sounds: normal heart sounds. Pulmonary/Chest: Effort normal. He has wheezes. Abdominal: Bowel sounds are normal. He exhibits no distension. Soft. There is no abdominal tenderness. Musculoskeletal: General: Normal range of motion. Vascular: Right Lower Extremity Right lower extremity pulses DP: 1+ Left Lower Extremity Left lower extremity pulses DP: 1+ Right Upper Extremity Right upper extremity pulses Radial: 2+ Left Upper Extremity Left upper extremity pulses Radial: 2+ Neurological: He is alert and oriented to person, place, and time. Skin: Skin is warm and dry. Psychiatric: His behavior is normal. Vitals reviewed. Labs Results from last 7 days Lab Units 04/16/25 0203 04/15/25 0344 04/14/25 0920 04/14/25 0358 WBC x10E9/L 14.8* 9.6 13.8* 15.8* HEMOGLOBIN g/dL 10.8* 11.4* 12.7* 13.2 HEMATOCRIT % 31.9* 34.3* 38.1* 39.3 PLATELETS X10E9/L 165 155 227 216 Results from last 7 days Lab Units 04/16/25 0203 04/15/25 1512 04/15/25 0344 04/14/25 1637 04/14/25 0942 04/14/25 0920 04/14/25 0651 04/14/25 0624 04/14/25 0358 SODIUM mmol/L 136 -- 138 -- -- 139 -- -- 141 POTASSIUM mmol/L 4.4 4.3 4.2 4.2 -- 5.1* -- -- 5.3* CO2 mmol/L 23 -- 22 -- -- 23 -- -- 23 BUN mg/dL 25 -- 28* -- -- 33* -- -- 29* CREATININE mg/dL 1.06 -- 1.09 -- -- 1.25 -- -- 1.28 BEDSIDE GLUCOSE mg/dL -- -- -- -- 103* -- 246* < > -- GLUCOSE mg/dL 125* -- 96 -- -- 98 -- -- 135* < > = values in this interval not displayed. Results from last 7 days Lab Units 04/14/25 0358 INR 1.0 PROTIME sec 11.1 APTT sec 25* Labs obtained during the last 24 hrs. independently reviewed. Recent Studies X-ray chest 1 view Result Date: 04/16/2025 Portable upright single view chest dated to 04/16/2025 at 6:55 AM INDICATION: Hypoxia, low oxygen. FINDINGS: Comparison is 04/15/2025. Median sternotomy. Persistent left lower lobe infiltrates and/or atelectasis. Emphysematous changes. IMPRESSION: 1. Stable left lower lobe infiltrate and/or atelectasis. 2. Emphysema. Finalized by Jaden Gonzalez MD on 04/16/2025 7:22 AM X-ray chest 1 view Result Date: 04/15/2025 History: Rib fractures. Follow-up. EXAM: Chest AP portable upright IMPRESSION: A 1225 FINDINGS: Sternotomy, chronic lung markings, small left pleural effusion, left rib fractures. No pneumothorax. Nodeveloping infiltrates or worsening pleural effusions. IMPRESSION: Stable exam. Finalized by Lucas Khan MD on 04/15/2025 5:58 PM Radiographic studies obtained during the last 24 hrs independently reviewed for acute traumatic injuries. Allergies No Known Allergies Current Medications SCHEDULED acetaminophen, 1,000 mg, oral, Q6H OR acetaminophen, 1,000 mg, nasogastric, Q6H atorvastatin, 40 mg, oral, Nightly [COMPLETED] azithromycin, 500 mg, intravenous, Q24H FOLLOWED BY azithromycin, 250 mg, intravenous, Q24H busPIRone, 30 mg, oral, BID cefTRIAXone (ROCEPHIN) IV, 1,000 mg, intravenous, Q24H enoxaparin (LOVENOX) injection, 30 mg, subcutaneous, Q12H fluticasone furoate-vilanteroL, 1 puff, inhalation, Daily AND umeclidinium, 1 puff, inhalation,Daily gabapentin, 600 mg, oral, Q8H KVNG ipratropium-albuteroL, 3 mL, nebulization, Q4H While awake lidocaine, 1 patch, transdermal, Daily methocarbamoL, 500 mg, oral, TID methylPREDNISolone sodium succinate, 40 mg, intravenous, Daily sacubitriL-valsartan, 1 tablet, oral, BID sennosides-docusate sodium, 2 tablet, oral, Nightly sertraline, 100 mg, oral, Daily sodium chloride, 3 mL, intravenous, Q12H KVNG PRN calcium gluconate OR calcium gluconate OR calcium gluconate dextrose dextrose 50 % in water (D50W) glucagon (human recombinant) HYDROmorphone magnesium sulfate OR magnesium sulfate ondansetron oxyCODONE OR oxyCODONE polyethylene glycol potassium chloride OR potassium chloride potassium chloride in water OR potassium chloride in water sodium phosphate IV OR sodium phosphate IV - central line OR sod phos di, mono-K phos mono sodium chloride Current Infusions JEMMA Haley Trauma can be reached via Patient Touch Pager: [phone] JEMMA Haley 04/16/25 [id number] * Sandra Uribe MD - 04/16/2025 6:20 AM EDT SICU Academic Critical Care PROGRESS NOTE Admission Date: 04/14/2025 3:10 AM Attending Physician: Igor Steel DO Date of 1950 Hospital Day: 2 day(s) Doc Burns is a 75 y.o. male with past medical history of CAD status post stent, COPD, diabetes, hypertension, active lung cancer not on chemotherapy, and continued tobacco use, brought in by EMS from [place] after attempting to carry an electric bike up the stairs and subsequently falling backwards. Patient states he was attempting to climb approximately 14 stairs when he lost his balance and fell backwards. He notes the electric bike landed on his chest and left side. The bike weighs approximately 100 lb. Patient denies loss of consciousness. Patient is on aspirin and clopidogrel. Upon presentation to [place], patient was found to have multiple left-sided rib fractures,small left hemothorax and pulmonary contusion, and left scapular fracture. At [place], CT brain and CT cervicalspine were negative for any acute pathology. Per EMS, patient's SpO2 was trending downward over time and was placed on 6 L O2 nasal cannula. Patient does not have an oxygen requirement at baseline. Additionally, patient has had soft blood pressures with systolic in the 90s, he was given 1 L of normal saline. EMS states that patient also received ketamine 40 mg over 30 minutes at approximately 2:00 a.m. with improvement of his pain. Presently, patient reports left shoulder pain, left chest wall pain which is exacerbated by deep inspiration, and left abdominal pain. Otherwise, patient denies headache, changes in vision, dizziness, neck pain, anterior chest pain, shortness of breath, nausea, vomiting, numbness tingling or weakness of the extremities. Patient endorses smoking 3/4 of a pack ofcigarettes per day. Otherwise denies ETOH and additional drug use. Overnight Events: NAEO. Afebrile. Normotensive. Hb (13.2>12.7>11.4>10.8). WBC (9.6>14.8). ABG: pH 7.31, CO2: 44, O2: 46. Now on high flow O2. Chest x-ray pending. Physical Exam: Vital Signs: BP 115/82 Pulse 70 Temp 36.6 C (97.8 F) (Oral) Resp 22 Ht 167.6 cm (5' 6 ) Wt 92.6 kg (204 lb 2.3 oz) SpO2 91% BMI 32.95 kg/m General: No distress, lying comfortably in bed, alert, interactive HEENT: Atraumatic EOMI PERRL 3mm, CN II-XII: grossly intact No Malocclusion TM Clear bilaterally Battles sign Absent Nares patent Dentition intact Neck: Trachea Midline Non Tender to palpation No pain with Flex / Ext / Lat Flex / Rotation, Axial Load & distraction Chest: Significant Left lateral chest wall tenderness to minimal palpation, No Crepitus, no ecchymosis Lungs:Wheezes bilaterally, diminished in the left lower bases. Unlabored, Nasal cannula 6L NC with SpO2 98% Heart: Heart tones S1/S2, No Murmur noted Abd: Soft, No guarding, No rigidity (+) Appetite No Brusing Left abdominal tenderness and left flank tenderness to palpation Pelvis: Iliac crest-Non tender to compression Symphysis pubis- Non tender to compression Back: T Spine- non tender to palpation L Spine- non tender to palpation No wounds / ecchymosis Extremities: RUE: 5/5 strength LUE: Ear Pull Machine Operator strength intact, decreased range of motion of the left shoulder secondary to scapular fracture, pain with palpation of the left shoulder in the posterior aspect RLE: 5/5 strength LLE: 5/5 strength Pulses 2+ x 4 Intact to light touch No calf/thigh tenderness Neuro: Alert, pleasant, appropriate Oriented to person, place, time Neurovascularly intact throughout Intake/Output Summary (Last 24 hours) at 04/16/2025 0620 Last data filed at 04/16/2025 0500 Gross per 24 hour Intake -- Output 2550 ml Net -2550 ml O2 Device: (S) High flow nasal cannula Ventilator Settings FiO2 (%): 50 % Invasive Hemodynamic [place] Results from last 3 days Lab Units 04/16/25 0203 04/15/25 1512 04/15/25 0344 04/14/25 1637 04/14/25 0920 04/14/25 0358 BUN mg/dL 25 -- 28* -- 33* 29* CREATININE mg/dL 1.06 -- 1.09 -- 1.25 1.28 POTASSIUM mmol/L 4.4 4.3 4.2 4.2 5.1* 5.3* CO2 mmol/L 23 -- 22 -- 23 23 CHLORIDE mmol/L 107 -- 110* -- 109 109 AST U/L -- -- -- -- -- 18 ALT U/L -- -- -- -- -- 15 ALK PHOS U/L -- -- -- -- -- 70 LIPASE U/L -- -- -- -- -- 10* Results from last 3 days Lab Units 04/14/25 035 INR 1.0 PROTIME sec 11.1 Results from last 3 days Lab Units 04/16/25 02004/15/25 0344 04/14/25 0920 04/14/25 0358 WBC x10E9/L 14.8* 9.6 13.8* 15.8* HEMOGLOBIN g/dL 10.8* 11.4* 12.7* 13.2 HEMATOCRIT % 31.9* 34.3* 38.1* 39.3 PLATELETS X10E9/L 165 155 227 216 MCV fL 92 94 94 94 MCH pg 31.0 31.5 31.3 31.4 MCHC g/dL 33.8 33.4 33.4 33.6 RDW % 13.6 14.0 13.6 13.7 EOS ABS AUTO 10*3/uL 0.0 0.3 0.0 0.0 Microbiology Results No results found for the last 168 hours. Glucose Results from last 7 days Lab Units 04/16/25 0203 04/15/25 0344 04/14/25 0942 04/14/25 0920 04/14/25 0651 04/14/25 0624 04/14/25 0358 BEDSIDE GLUCOSE mg/dL -- -- 103* -- 246* 141* -- GLUCOSE mg/dL 125* 96 -- 98 -- -- 135* Lines/Drains Peripheral IV 04/14/25 Anterior;Left;Proximal Forearm (Active) Line Status No blood return;Saline locked 04/15/25399 Site Assessment Clean;Dry;Intact 08/12/25 0400 Dressing Type Occlusive;Transparent 04/15/25 0400 Dressing Status Clean;Dry;Intact 04/15/25 0400 Dressing Intervention Initial dressing 04/14/25 1900 Peripheral IV 04/14/25 Right Antecubital (Active) Line Status No blood return;Saline locked;Flushed 04/15/25 0400 Site Assessment Clean;Dry;Intact 04/15/25 0400 Dressing Type Occlusive;Transparent 04/15/25 0400 Dressing Status Clean;Dry;Intact 04/15/25 0400 Dressing Intervention Initial dressing 04/14/25 1900 Peripheral IV 04/14/25 Left Antecubital (Active) Line Status No blood return;Saline locked;Flushed;Alcohol sponge cap changed 04/15/25 040 Site Assessment Clean;Dry;Intact 04/15/25 040 Dressing Type Occlusive;Transparent 04/15/25 0400 Dressing Status Clean;Dry;Intact 04/15/25 0400 Dressing Intervention Initial dressing 04/14/25 190 Dressing Change Due (Non-Gauze) 04/21/25 04/14/25 040 ACTIVE PROBLEM LIST: Trauma, fall Left 6th - 8th rib fxs Left small hemothorax Left pulmonary contusion Left scapular fracture Tobacco use disorder Hypertension Hyperkalemia ASSESSMENT/PLAN: Doc Burns is a 75 y.o. male with past medical history of CAD status post stent, COPD, diabetes, hypertension, active lung cancer not on chemotherapy, and continued tobacco use, brought in by EMS from [place] after attempting to carry an electric bike up the stairs and subsequently falling backwards. No LOC. Patient takes aspirin and clopidogrel. 1. Neuro Hospital Meds: Sedation: None Analgesia: Tylenol, Lidocaine patch, Robaxin, Gabapentin, Dilaudid, Oxycodone Other: None Home Meds: Buspar, Sertraline PMH: Insomnia PSH: None 2. Pulmonary Breathing Support: Supplemental O2 Settings: 6L SpO2: 90% Continuous pulse oximetry Hospital Meds: Duoneb, Breo-Ellipta, Umeclidinum Home Meds: Albuterol inhaler and nebulizer, Fluticasone PMH: COPD, Lung cancer PSH: None Left rib fractures 6-8, hemothorax, pulmonary contusion -repeat chest x-ray -incentive spirometer -pain management -presently on 6 L nasal cannula with SpO2 93% -continue to monitor vitals and oxygen demand, patient is not on oxygen at home - Chest x-ray AM Pending. 3. Cardiovascular Hemodynamics: Bradycardic, regular rate Normotensive Pressors: None Goal MAP >65 Continuous cardiac monitoring Hospital Meds: Atorvastatin, sacubitriL-valsartan Home Meds: Norvasc, ASA, Lipitor, Lasix, metoprolol, Entresto, Plavix PMH: CAD, HLD, HTN PSH: None Code Status: Full 4. GI Diet: Regular Bowel Function: Monitor Hospital Meds: Zofran, Senna, Glycolax Home Meds: None PMH: T2DM PSH: None Tobacco use -patient endorses smoking 3/4 of a pack per day -patient was counseled on smoking cessation -patient was offered nicotine patch during hospital stay, declined at this time 5. Renal/Genitourinary Lab Results Component Value Date SODIUM 136 04/16/2025 SODIUM 138 04/15/2025 SODIUM 139 04/14/2025 CL 107 04/16/2025 CL 110 (H) 04/15/2025 CL 109 04/14/2025 K 4.4 04/16/2025 K 4.3 04/15/2025 K 4.2 04/15/2025 CO2 23 04/16/2025 CO2 22 04/15/2025 CO2 23 04/14/2025 Lab Results Component Value Date BUN 25 04/16/2025 BUN 28 (H) 04/15/2025 BUN 33 (H) 04/14/2025 CREATININE 1.06 04/16/2025 CREATININE 1.09 04/15/2025 CREATININE 1.25 04/14/2025 CALCIUM 8.2 (L) 04/16/2025 CALCIUM 8.2 (L) 04/15/2025 CALCIUM 8.5 04/14/2025 Will replace electrolytes PRN per ICU protocol Fluid Balance: IV Fluids: 0 UOP/24 H: 2.5L Net Fluid/24H: -2.5L Strict monitoring of Ins and Outs Hospital Meds: None Home Meds: None PMH: None PSH: None 6. Heme Labs: Lab Results Component Value Date HGB 10.8 (L) 04/16/2025 HGB 11.4 (L) 04/15/2025 HGB 12.7 (L) 04/14/2025 PLT 165 04/16/2025 PLT 155 04/15/2025 PLT 227 04/14/2025 Lab Results Component Value Date INR 1.0 04/14/2025 INR 1.1 12/05/2022 Type and Screen: A+ Blood Products Administered: 0 Will continue to monitor 7. ID Tmax/24H: Afebrile Labs: Lab Results Component Value Date WBC 14.8 (H) 04/16/2025 WBC 9.6 04/15/2025 WBC 13.8 (H) 04/14/2025 Micro: Lower resp c#, pending Hospital Meds: Antibiotics: none 8. Endocrine Lab Results Component Value Date GLU 125 (H) 04/16/2025 GLU 96 04/15/2025 GLU 103 (H) 04/14/2025 Goal Blood Glucose <180 mg/dL Hospital Meds: None Home Meds: None PMH: None PSH: None 9. Musculoskeletal PMH: None PSH: None PT/OT when able Left scapular fracture -x-ray left shoulder - displaced fx of coracoid -consult ortho: Recommend nonoperative treatment, applying ice to affected areas, with weight-bearing restrictions 10. Prophylaxis Respiratory: Not indicated GI: Not indicated DVT: SCD Cuffs, Lovenox 11. Lines PIV x2 Plan and management were discussed with the attending Dr. Aba Uribe MD SICU Resident, PGY-1 Cosigned by Donta Troncoso MD at 04/16/2025 6:45 PM EDT Associated attestation - Donta Troncoso MD - 04/16/2025 6:45 PM EDT Name: Doc Burns Date: 04/16/2025 Length of Stay: 2 day(s) ACTIVE PROBLEM LIST: Trauma, fall Left 6th - 8th rib fxs Left small hemothorax Left pulmonary contusion Left scapular fracture Tobacco use disorder Hypertension Hyperkalemia ASSESSMENT/PLAN: Doc Burns is a 75 y.o. male with past medical history of CAD status post stent, COPD, diabetes, hypertension, active lung cancer not on chemotherapy, and continued tobacco use, brought in by EMS from [place] after attempting to carry an electric bike up the stairs and subsequently falling backwards. No LOC. Patient takes aspirin and clopidogrel. . 1. Neuro: Neurochecks Goal RASS of 0 2. Cardio: Continues hemodynamic monitoring Maintain map above 65 3. Resp: Maintain O2 sat > 92% Monitor for signs and respiratory distress Continues to need high-flow nasal cannula for hypoxic respiratory failure Continue treatment for COPD exacerbation with Solu-Medrol and antibiotics Ventilator Settings FiO2 (%): 50 % 4. GI: regular 5. Heme: Monitor H&H Transfuse for hb less than 7 or symptomatic anemia 6. Renal: Monitor urine output Monitor renal function ICU electrolyte replacement protocol NELLI. Continue to trend BUN creatinine 7. ID: Monitor for signs and symptoms of sepsis Currently on ceftriaxone and azithromycin 8. Endo: Monitor blood sugar Use insulin sliding scale as needed 9. MS: Pressure ulcer prophylaxis 10: Prophylaxis: DVT mechanical prophylaxis DVT chemical prophylaxis Lovenox GI prophylaxis none 11. Lines: PIV x2 Dispo: Critical This patient remains critically ill and requires constant monitoring and titration of care by a Critical Care Independent Jeweler. Failure to do so may result in further organ system failure, imminent deterioration, or . Critical care time spent directly with the patient and family: 33 Critical care was time spent personally by me on the following activities: Development of treatmentplan with the patient or surrogate, discussions with consultants, discussions with the primary provider, ordering and performing treatments and interventions, ordering and review of laboratory studies, ordering and review of radiographic studies, pulse oximetry, re-evaluation of patient's condition, review of old charts, vascular access procedures, evaluation of patient's response to treatment, examination of patient, interpretation of cardiac output measurements and obtaining history from patient or surrogate Electronically signed by Donta Troncoso MD [facility] Trauma, Acute Care Surgery and Surgical Critical Care * Niurka Cárdenas, FINISHING SUPERVISOR P[employer]IC SHEETS - 04/16/2025 6:05 AM EDT Results didn't stream over ABG results pH 7.32 CO2 44.8 PO2 46 BE -3 HCO3 23.0 TCO2 24 SaO2 78% physician was notified & patient was placed on HFNC * Sandra Uribe MD - 04/15/2025 6:48 AM EDT SICU Academic Critical Care PROGRESS NOTE Admission Date: 04/14/2025 3:10 AM Attending Physician: Igor Steel DO Date of 1950 Hospital Day: 1 day(s) Doc Burns is a 75 y.o. male with past medical history of CAD status post stent, COPD, diabetes, hypertension, active lung cancer not on chemotherapy, and continued tobacco use, brought in by EMS from [place] after attempting to carry an electric bike up the stairs and subsequently falling backwards. Patient states he was attempting to climb approximately 14 stairs when he lost his balance and fell backwards. He notes the electric bike landed on his chest and left side. The bike weighs approximately 100 lb. Patient denies loss of consciousness. Patient is on aspirin and clopidogrel. Upon presentation to [place], patient was found to have multiple left-sided rib fractures,small left hemothorax and pulmonary contusion, and left scapular fracture. At [place], CT brain and CT cervicalspine were negative for any acute pathology. Per EMS, patient's SpO2 was trending downward over time and was placed on 6 L O2 nasal cannula. Patient does not have an oxygen requirement at baseline. Additionally, patient has had soft blood pressures with systolic in the 90s, he was given 1 L of normal saline. EMS states that patient also received ketamine 40 mg over 30 minutes at approximately 2:00 a.m. with improvement of his pain. Presently, patient reports left shoulder pain, left chest wall pain which is exacerbated by deep inspiration, and left abdominal pain. Otherwise, patient denies headache, changes in vision, dizziness, neck pain, anterior chest pain, shortness of breath, nausea, vomiting, numbness tingling or weakness of the extremities. Patient endorses smoking 3/4 of a pack ofcigarettes per day. Otherwise denies ETOH and additional drug use. Overnight Events: NAEO. Afebrile. Normotensive. Hb (13.2>12.7>11.4). ABG: pH 7.26, CO2: 42, O2: 70 (7.31,35,68). AM chest x-ray shows left side opacity worsening. Physical Exam: Vital Signs: BP (!) 118/104 Pulse 57 Temp 36.9 C (98.5 F) (Oral) Resp 18 Ht 167.6 cm (5' 6 ) Wt 93.4 kg (205 lb 14.6 oz) SpO2 95% BMI 33.23 kg/m General: No distress, lying comfortably in bed, alert, interactive HEENT: Atraumatic EOMI PERRL 3mm, CN II-XII: grossly intact No Malocclusion TM Clear bilaterally Battles sign Absent Nares patent Dentition intact Neck: Trachea Midline Non Tender to palpation No pain with Flex / Ext / Lat Flex / Rotation, Axial Load & distraction Chest: Significant Left lateral chest wall tenderness to minimal palpation, No Crepitus, no ecchymosis Lungs:Good air movement bilaterally, diminished in the left lower bases. Unlabored, Nasal cannula 6L NC with SpO2 98% Heart: Heart tones S1/S2, No Murmur noted Abd: Soft, No guarding, No rigidity (+) Appetite No Brusing Left abdominal tenderness and left flank tenderness to palpation Pelvis: Iliac crest-Non tender to compression Symphysis pubis- Non tender to compression Back: T Spine- non tender to palpation L Spine- non tender to palpation No wounds / ecchymosis Extremities: RUE: 5/5 strength LUE: Ear Pull Machine Operator strength intact, decreased range of motion of the left shoulder secondary to scapular fracture, pain with palpation of the left shoulder in the posterior aspect RLE: 5/5 strength LLE: 5/5 strength Pulses 2+ x 4 Intact to light touch No calf/thigh tenderness Neuro: Alert, pleasant, appropriate Oriented to person, place, time Neurovascularly intact throughout Intake/Output Summary (Last 24 hours) at 04/15/2025 0649 Last data filed at 04/15/2025 0600 Gross per 24 hour Intake 759.64 ml Output 1750 ml Net -990.36 ml O2 Device: High flow nasal cannula Ventilator Settings FiO2 (%): 70 % Invasive Hemodynamic [place] Results from last 3 days Lab Units 04/15/25 0344 04/14/25 1637 04/14/25 0920 04/14/25 0358 BUN mg/dL 28* -- 33* 29* CREATININE mg/dL 1.09 -- 1.25 1.28 POTASSIUM mmol/L 4.2 4.2 5.1* 5.3* CO2 mmol/L 22 -- 23 23 CHLORIDE mmol/L 110* -- 109 109 AST U/L -- -- -- 18 ALT U/L -- -- -- 15 ALK PHOS U/L -- -- -- 70 LIPASE U/L -- -- -- 10* Results from last 3 days Lab Units 04/14/25 0358 INR 1.0 PROTIME sec 11.1 Results from last 3 days Lab Units 04/15/25 0344 04/14/25 0920 04/14/25 0358 WBC x10E9/L 9.6 13.8* 15.8* HEMOGLOBIN g/dL 11.4* 12.7* 13.2 HEMATOCRIT % 34.3* 38.1* 39.3 PLATELETS X10E9/L 155 227 216 MCV fL 94 94 94 MCH pg 31.5 31.3 31.4 MCHC g/dL 33.4 33.4 33.6 RDW % 14.0 13.6 13.7 EOS ABS AUTO 10*3/uL 0.3 0.0 0.0 Microbiology Results No results found for the last 168 hours. Glucose Results from last 7 days Lab Units 04/15/25 0344 04/14/25 0942 04/14/25 0920 04/14/25 0651 04/14/25 0624 04/14/25 0358 BEDSIDE GLUCOSE mg/dL -- 103* -- 246* 141* -- GLUCOSE mg/dL 96 -- 98 -- -- 135* Lines/Drains Peripheral IV 04/14/25 Anterior;Left;Proximal Forearm (Active) Line Status No blood return;Saline locked 04/15/25399 Site Assessment Clean;Dry;Intact 04/15/25399 Dressing Type Occlusive;Transparent 04/15/25399 Dressing Status Clean;Dry;Intact 04/15/25399 Dressing Intervention Initial dressing 08/11/25 1900 Peripheral IV 04/14/25 Right Antecubital (Active) Line Status No blood return;Saline locked;Flushed 04/15/25 040 Site Assessment Clean;Dry;Intact 04/15/25 040 Dressing Type Occlusive;Transparent 04/15/25 040 Dressing Status Clean;Dry;Intact 04/15/25 0400 Dressing Intervention Initial dressing 04/14/251899 Peripheral IV 04/14/25 Left Antecubital (Active) Line Status No blood return;Saline locked;Flushed;Alcohol sponge cap changed 04/15/25399 Site Assessment Clean;Dry;Intact 04/15/25 040 Dressing Type Occlusive;Transparent 04/15/25 040 Dressing Status Clean;Dry;Intact 04/15/25 040 Dressing Intervention Initial dressing 04/14/251899 Dressing Change Due (Non-Gauze) 04/21/25 04/14/25 040 ACTIVE PROBLEM LIST: Trauma, fall Left 6th - 8th rib fxs Left small hemothorax Left pulmonary contusion Left scapular fracture Tobacco use disorder Hypertension Hyperkalemia ASSESSMENT/PLAN: Doc Burns is a 75 y.o. male with past medical history of CAD status post stent, COPD, diabetes, hypertension, active lung cancer not on chemotherapy, and continued tobacco use, brought in by EMS from [place] after attempting to carry an electric bike up the stairs and subsequently falling backwards. No LOC. Patient takes aspirin and clopidogrel. 1. Neuro Hospital Meds: Sedation: None Analgesia: Tylenol, Lidocaine patch, Robaxin, Gabapentin, Dilaudid, Oxycodone Other: None Home Meds: Buspar, Sertraline PMH: Insomnia PSH: None 2. Pulmonary Breathing Support: Supplemental O2 Settings: 6L SpO2: >95% Continuous pulse oximetry [facility] Meds: Duoneb, Breo-Ellipta, Umeclidinum Home Meds: Albuterol inhaler and nebulizer, Fluticasone PMH: COPD, Lung cancer PSH: None Left rib fractures 6-8, hemothorax, pulmonary contusion -repeat chest x-ray -incentive spirometer -pain management -presently on 6 L nasal cannula with SpO2 93% -continue to monitor vitals and oxygen demand, patient is not on oxygen at home - Chest x-ray AM shows slight worsening of left lung opacity. 3. Cardiovascular Hemodynamics: Bradycardic, regular rate Normotensive Pressors: None Goal MAP >65 Continuous cardiac monitoring Hospital Meds: None Home Meds: Norvasc, ASA, Lipitor, Lasix, metoprolol, Entresto, Plavix PMH: CAD, HLD, HTN PSH: None Code Status: Full 4. GI Diet: Regular Bowel Function: Monitor Hospital Meds: Zofran, Senna, Glycolax Home Meds: None PMH: T2DM PSH: None Tobacco use -patient endorses smoking 3/4 of a pack per day -patient was counseled on smoking cessation -patient was offered nicotine patch during hospital stay, declined at this time 5. Renal/Genitourinary Lab Results Component Value Date SODIUM 138 04/15/2025 SODIUM 139 04/14/2025 SODIUM 141 04/14/2025 CL 110 (H) 04/15/2025 CL 109 04/14/2025 CL 109 04/14/2025 K 4.2 04/15/2025 K 4.2 04/14/2025 K 5.1 (H) 04/14/2025 CO2 22 04/15/2025 CO2 23 04/14/2025 CO2 23 04/14/2025 Lab Results Component Value Date BUN 28 (H) 04/15/2025 BUN 33 (H) 04/14/2025 BUN 29 (H) 04/14/2025 CREATININE 1.09 04/15/2025 CREATININE 1.25 04/14/2025 CREATININE 1.28 04/14/2025 CALCIUM 8.2 (L) 04/15/2025 CALCIUM 8.5 04/14/2025 CALCIUM 8.6 04/14/2025 Will replace electrolytes PRN per ICU protocol Fluid Balance: IV Fluids: NS 50 UOP/24 H: 1.7L Net Fluid/24H: -1L Strict monitoring of Ins and Outs Hospital Meds: None Home Meds: None PMH: None PSH: None 6. Heme Labs: Lab Results Component Value Date HGB 11.4 (L) 04/15/2025 HGB 12.7 (L) 04/14/2025 HGB 13.2 04/14/2025 PLT 155 04/15/2025 PLT 227 04/14/2025 PLT 216 04/14/2025 Lab Results Component Value Date INR 1.0 04/14/2025 INR 1.1 12/05/2022 Type and Screen: A+ Blood Products Administered: 0 Will continue to monitor 7. ID Tmax/24H: Afebrile Labs: Lab Results Component Value Date WBC 9.6 04/15/2025 WBC 13.8 (H) 04/14/2025 WBC 15.8 (H) 04/14/2025 Micro: none Hospital Meds: Antibiotics: none 8. Endocrine Lab Results Component Value Date GLU 96 04/15/2025 GLU 103 (H) 04/14/2025 GLU 98 04/14/2025 Goal Blood Glucose <180 mg/dL Hospital Meds: None Home Meds: None PMH: None PSH: None 9. Musculoskeletal PMH: None PSH: None PT/OT when able Left scapular fracture -x-ray left shoulder - displaced fx of coracoid -consult ortho: Recommend nonoperative treatment, applying ice to affected areas, with weight-bearing restrictions 10. Prophylaxis Respiratory: Not indicated GI: Not indicated DVT: SCD Cuffs 11. Lines PIV x3 Plan and management were discussed with the attending Dr. Aba Uribe MD SICU Resident, PGY-1 Cosigned by Donta Troncoso MD at 04/15/2025 6:14 PM EDT Associated attestation - Donta Troncoso MD - 04/15/2025 6:14 PM EDT Name: Doc Burns Date: 04/15/2025 Length of Stay: 1 day(s) ACTIVE PROBLEM LIST: Trauma, fall Left 6th - 8th rib fxs Left small hemothorax Left pulmonary contusion Left scapular fracture Tobacco use disorder Hypertension Hyperkalemia ASSESSMENT/PLAN: Doc Burns is a 75 y.o. male with past medical history of CAD status post stent, COPD, diabetes, hypertension, active lung cancer not on chemotherapy, and continued tobacco use, brought in by EMS from [place] after attempting to carry an electric bike up the stairs and subsequently falling backwards. No LOC. Patient takes aspirin and clopidogrel. . 1. Neuro: Neurochecks Try to improve pain management 2. Cardio: Continues hemodynamic monitoring Maintain map above 65 Improved blood pressure 3. Resp: Maintain O2 sat > 92% Monitor for signs and respiratory distress On high-flow nasal cannula. Started on treatment for COPD exacerbation with Solu-Medrol, azithromycin, ceftriaxone Ventilator Settings FiO2 (%): 50 % 4. GI: Regular diet 5. Heme: Monitor H&H Transfuse for hb less than 7 or symptomatic anemia 6. Renal: Monitor urine output Monitor renal function ICU electrolyte replacement protocol 7. ID: Monitor for signs and symptoms of sepsis On ceftriaxone and azithromycin 8. Endo: Monitor blood sugar Use insulin sliding scale as needed 9. MS: Pressure ulcer prophylaxis 10: Prophylaxis: DVT mechanical prophylaxis DVT chemical prophylaxis will start Lovenox GI prophylaxis none 11. Lines: PIV x3 Dispo: Critical This patient remains critically ill and requires constant monitoring and titration of care by a Critical Care Independent Jeweler. Failure to do so may result in further organ system failure, imminent deterioration, or . Critical care time spent directly with the patient and family: 33 Critical care was time spent personally by me on the following activities: Development of treatmentplan with the patient or surrogate, discussions with consultants, discussions with the primary provider, ordering and performing treatments and interventions, ordering and review of laboratory studies, ordering and review of radiographic studies, pulse oximetry, re-evaluation of patient's condition, review of old charts, vascular access procedures, evaluation of patient's response to treatment, examination of patient, interpretation of cardiac output measurements and obtaining history from patient or surrogate Electronically signed by Donta Trnocoso MD [facility] Trauma, Acute Care Surgery and Surgical Critical Care documented in this encounter[facility] Hospital course Narrative* Terrell Lauren, BIOFUELS RESEARCH SCIENTIST-CONTACT CENTER CONSULTANT - 04/24/2025 3:10 PM EDT [facility] TRAUMA SURGERY-DISCHARGE SUMMARY DISCHARGE NOTE / SUMMARY Patient ID: Doc Burns : 1950 Acct: [id number] Patient's PCP: JEAN-CLAUDE HEATON, BIOFUELS RESEARCH SCIENTIST-CONTACT CENTER CONSULTANT Admit Date: 04/14/2025 Discharge Date: 04/24/2025 Admitting Physician: Igor Steel DO Consults: Orthopedics (Ortho) Discharge Diagnoses/Chief Complaint: Hemothorax on left Patient Active Problem List Diagnosis Date Noted Hemothorax on left 04/14/2025 Dyspnea on exertion 08/18/2022 Chronic diastolic heart failure ([facility]) 01/05/2022 Depression 01/05/2022 HLD (hyperlipidemia) 01/05/2022 HTN (hypertension) 01/05/2022 Lung nodules 01/05/2022 Smoker 01/05/2022 Cancer of trachea, bronchus, and lung ([facility]) 10/29/2021 Insomnia 07/07/2020 Carotid artery stenosis 06/19/2020 Aneurysm of thoracic aorta 06/18/2020 Aortic valve stenosis 06/18/2020 Left ventricular thrombus 06/18/2020 COPD with acute exacerbation ([facility]) 06/17/2020 Coronary arteriosclerosis 06/17/2020 Systolic heart failure ([facility]) 06/17/2020 Past Medical History: Diagnosis Date CAD (coronary artery disease) CHD (coronary heart disease) Chest pain COPD (chronic obstructive pulmonary disease) ([facility]) Depression DM (diabetes mellitus) ([facility] [place] [place] History of lung cancer HLD (hyperlipidemia) HTN (hypertension) Insomnia Lung mass Tobacco abuse HOSPITAL COURSE SUMMARY: 1. Traumatic fall - PT/OT 2. Hypoxia secondary to Left rib fractures 6-8, hemothorax, pulmonary contusion COPD exacerbation -repeat chest x-ray -incentive spirometer -pain management -presently on 6 L nasal cannula with SpO2 93% -continue to monitor vitals and oxygen demand, patient is not on oxygen at home - patient with increased oxygen requirement, now on high flow - start IV steroids and antibiotics - schedule DuoNebs - IR consulted for left effusion- nothing to tap per IR - 04/20 high-flow weaned to nasal cannula - 04/22 patient more hypoxic on 5 L. Placed on mask. Unable to wean back to nasal cannula. High-flowordered. Chest x-ray. ABG -04/24 resp status stable, need home oxygen eval. Okay to Dc home with health care and famil supporton 2L NC and 4 L nC with ambulation 3. Left scapular fracture -x-ray left shoulder -consult ortho: Recommend nonoperative treatment, applying ice to affected areas, with weight-bearing restrictions 4. Tobacco use -patient endorses smoking 3/4 of a pack per day -patient was counseled on smoking cessation -patient was offered nicotine patch during hospital stay, declined at this time 5. Confusion and agitation (04/18) - became agitated overnight and received Haldol/Versed - Precedex drip - Seroquel - nighttime dose of Seroquel increased to 75 mg The patient was seen and examined on day of discharge and this discharge summary is in conjunction with any daily progress note from day of discharge. Pulse: 62 Resp: 24 BP: 137/72 Temp: 36.6 C (97.9 F) All home medications restarted at time of discharge. Treatments: * No surgery found * Discharged Condition: Good DISCHARGE INSTRUCTIONS: Discharge Medications: Your medication list START taking these medications Instructions Last Dose Given Next Dose Due acetaminophen 500 mg tablet Commonly known as: TYLENOL EXTRA STRENGTH Take 2 tablets (1,000 mg total) by mouth every 6 (six) hours. lidocaine 4 % Commonly known as: SALONPAS Start taking on: April 25, [address] Place 1 patch on the skin in the morning. oxyCODONE-acetaminophen 5-325 mg per tablet Commonly known as: PERCOCET Take 1-2 tablets by mouth every 8 (eight) hours as needed for pain for up to 7 days. Max Daily Amount: 6 tablets traZODone 50 mg tablet Commonly known as: DESYREL Take 1 tablet (50 mg total) by mouth nightly for 30 days. CHANGE how you take these medications Instructions Last Dose Given Next Dose Due albuterol 2.5 mg /3 mL (0.083 %) nebulizer solution Commonly known as: TABITHA GUILLEN What changed: Another medication with the same name was removed. Continue taking this medication, and follow the directions you see here. CONTINUE taking these medications Instructions Last Dose Given Next Dose Due amLODIPine 10 mg tablet Commonly known as: NORVASC aspirin 81 mg atorvastatin 40 mg tablet Commonly known as: LIPITOR busPIRone 30 mg tablet Commonly known as: BUSPAR clopidogreL 75 mg tablet Commonly known as: PLAVIX ENTRESTO 97-103 mg tablet Generic drug: sacubitriL-valsartan furosemide 40 mg tablet Commonly known as: LASIX LINZESS 290 mcg capsule Generic drug: linaCLOtide metoprolol succinate XL 100 mg 24 hr tablet Commonly known as: TOPROL XL nitroglycerin 0.4 MG SL tablet Commonly known as: NITROSTAT potassium chloride 10 MEQ CR capsule Commonly known as: KLOR-CON SPRINKLE sertraline 100 mg tablet Commonly known as: ZOLOFT sildenafiL 50 mg tablet Commonly known as: VIAGRA spironolactone 25 mg tablet Commonly known as: ALDACTONE TRELEGY ELLIPTA 200-62.5-25 mcg blister with device Generic drug: iwwlihdxaia-wptjsgmfa-iqkazbla INHALE 1 PUFF BY MOUTH DAILY Where to Get Your Medications These medications were sent to [id number] - [place], [place] - [address] [place] [address] lidocaine 4 % oxyCODONE-acetaminophen 5-325 mg per tablet traZODone 50 mg tablet Information about where to get these medications is not yet available Ask your nurse or doctor about these medications acetaminophen 500 mg tablet Additional Discharge Instructions: Home oxygen will have home nursing assess tomorrow for eval and treat Scheduled Outpatient Follow Up: Future Appointments Date Time Provider Department Center 05/06/2025 12:45 PM Mac Robins MD [facility] 08/07/2025 11:45 AM Richard Lentz DO [facility] PULM JEEP DRIVER Follow-up Information JEAN-CLAUDE HEATON, BIOFUELS RESEARCH SCIENTIST-CONTACT CENTER CONSULTANT . Specialty: Nurse Practitioner Contact information: [address] [place] [address] Scheduled Appointments May 06, 2025 12:45 PM (Arrive by 12:30 PM) HOSPITAL DISCHARGE FOLLOW UP with Mac Robins MD [facility] Orthopedics/Trauma and Adult Reconstruction ([facility]) [address] [facility] [address] [facility] [id number] Aug 07, 2025 11:45 AM (Arrive by 11:30 AM) ESTABLISHED PATIENT with Richard Lentz DO [facility] Pulmonary/Sleep Medicine ([facility]) [address] [place] [id number] At the time of your visit please be aware of the following COVID-19 information: If you develop a new cough, fever, or shortness of breath, please call before your appointment. Please plan to arrive at least 15 minutes earlier than your appointment time as screening and registration may take longer than anticipated. Completing eCheck-in to pre-register and pay any prepayments due will allow you to have an expedited arrival process for your visit. Please be aware that the [facility] facility you are visiting may require you to wear a mask. It will not be unusual if you find that masking is required in some locations and not required in other locations. The determination is made based on the amount of COVID transmission and infection rate in the community where the facility is located. Please be prepared to wear a mask if the facility you are visiting requires masking. Masks are available upon entry into the facility; however, it is best to bring your own mask and put it on before entering the facility. If wearing a mask is not possible due to an underlying health condition, please work with your care team on an alternate plan before your scheduled appointment. Time spent: 35 JEMMA Barboza 04/24/25 1517 JEMMA Barboza 04/24/25 1518 documented in this encounterSelect [facility]08-21-2025 Miscellaneous Notes* Discharge Planning Note - Oanh Boone - 04/24/2025 1:07 PM EDT DISCHARGE PLANNING NOTE Referral sent to [facility], Beck Cortes (Kaur- P# ; F# ) * PT/OT/JEEP DRIVER - KONSTANTIN Buckley/Binh - 04/24/2025 11:57 AM EDT Occupational Therapy Treatment Discharge Recommendations for Safe Patient Transition OT Discharge Disposition Recommendation: Post acute - moderate OT Post Acute Moderate Rehab Needs: Recommend moderate intensity rehab, Tolerate 1-2 hrs of therapy3-5 days/wk, Subacute or chronic functional impairment Current Impairments Informing Therapy Recommendation: Ambulation status/safety, Fall risk, ADL status, Endurance level 6 Clicks: Daily Activity Putting on and taking off regular lower body clothing?: A little Bathing (including washing, rinsing, drying)?: A lot Toileting, which includes using toilet, bedpan or urinal?: A lot Putting on and taking off regular upper body clothing?: A little Taking care of personal grooming such as brushing teeth?: A little Eating meals?: None Scoring Daily Activity Raw Score: 17 CMS G Code Modifier: CK OT Treatment/Interventions: ADL retraining, Functional transfer training, Endurance training, Patient/family training, Equipment eval/education, Balance, Bed mobility, Compensatory technique education, Gait training, Functional activities OT Frequency: 4-5days/week OT Duration: length of stay Assessment Patient Assessment Therapy Problem List: Decreased balance, Decreased endurance, Decreased mobility, Decreased LE ROM,Decreased LE strength, Decreased ADL status, Decreased UE strength Patient Response to Treatment: Progressing toward goals Mood/Affect: Appropriate for circumstances Rehab Prognosis: Good, With continued OT status post acute discharge Visit RN Communication: Yes Medical Record Reviewed: Yes OT Type of Visit: Treatment Precautions Activity: Early Mobility pass; ok to tx per RN- Equipment: Gait Belt; L UE Sling; SC, IV, O2 Weight Bearing Status: NWB LUE Telemetry/Tombstone Erector Helper: Yes Oxygen Used: 3L Other: HIGH FALL RISK; L Rib Fx 6-8 Pain Assessment Pain Assessment: No/denies pain ADL / IADL Where Assessed: Standing at sink Grooming Assistance: Contact guard assist Grooming Deficit: Wash/dry hands, Wash/dry face, Brushing hair, Oral hygiene Other: grooming tasks completed while standing at the sink. CGA provided for safety. no LOB noted. Home Management - IADL Other: grooming tasks completed while standing at the sink. CGA provided for safety. no LOB noted. Cognition Orientation Level: Oriented X4 Other: Pt requried cues for NWB L UE Bed Mobility Other: NT as pt was sitting in the chair upon writers arrival and was left in the chair at end of session with call light within reach and with RN aware. Transfers Sit to Stand: Contact guard assist Stand to Sit: Contact guard assist Other: cues required for safe hand placement with R UE during transfers. pt utilized SC upon standing. no LOB noted. pt denied dizziness. Gait Gait Assistance: Min assist Assistive Device: Straight cane Gait Distance: 75'x2 Limiting Factors to Gait: Fatigue, Weakness, Decreased safety Other: min A required for safety and stability. cues provided for safety with use of AD. no LOB noted. pt mildly unsteady. Balance Sitting Balance: Static: Good Sitting Balance: Dynamic: Good Standing Balance: Static: Fair Standing Balance: Dynamic: Fair (-) Other: pt stood at the sink during ADLs for approx 7-8 mins with CGA required for safety. UE support required as needed while standing during tasks. pt requires single UE support from SC during functional mobility and with min A required. no overt LOB noted during session. Activity Tolerance Endurance: Tolerates 30 minutes activity with rest breaks Other: fair overall tolerance. rest breaks provided as needed. pts SPO2 85% on 3L s/p functional mobility, cues provided for pursed lip breathing tech. pt able to increase to 90% within 1-2 mins. 04/24/25 1021 UE ROM UE ROM exercises performed? Yes Scapular retraction RUE Shoulder flexion/extension RUE Shoulder horizontal abduction/adduction RUE Elbow flexion/extension B UE Other AROM Repetitions 15 Plan Occupational Therapy Care Plan Occupational Therapy Care Plan (Active) Template: OT - Occupational Therapy Problem: Activity Tolerance Dates: Start: 04/15/25 Disciplines: OT Goal: Tolerate > 30 minutes of activity WITHOUT rest breaks Dates: Start: 04/15/25 Expected End: 05/08/25 Description: Goal Description: Disciplines: OT Outcomes Date/Time User Outcome 04/24/25 1156 KOBY Buckley Progressing 04/21/25 1612 KOBY Hills Progressing 04/16/25 1413 MARGOTH George/Binh Progressing Goal Note filed on 04/24/25 1156 by KOBY Buckley Evaluation of progress towards goal: Problem: Bathing LB Dates: Start: 04/15/25 Disciplines: OT Goal: Patient will perform bathing LB with Set-Up Dates: Start: 04/15/25 Expected End: 05/08/25 Description: Goal Description: Disciplines: OT Problem: Bathing UB Dates: Start: 04/15/25 Disciplines: OT Goal: Patient will perform bathing UB with Set-Up Dates: Start: 04/15/25 Expected End: 05/08/25 Description: Goal Description: Disciplines: OT Problem: Bed Mobility Dates: Start: 04/15/25 Disciplines: OT Goal: Patient will perform bed mobility with Modified [facility] Dates: Start: 04/15/25 Expected End: 05/08/25 Description: Goal Description: Disciplines: OT Problem: Dressing LB Dates: Start: 04/15/25 Disciplines: OT Goal: Patient will perform dressing LB Independently Dates: Start: 04/15/25 Expected End: 05/08/25 Description: Goal Description: Disciplines: OT Problem: Dressing UB Dates: Start: 04/15/25 Disciplines: OT Goal: Patient will perform dressing UB Independently Dates: Start: 04/15/25 Expected End: 05/08/25 Description: Goal Description: Disciplines: OT Problem: Functional Mobility Dates: Start: 04/15/25 Disciplines: OT Goal: Patient will perform functional mobility Independently Dates: Start: 04/15/25 Expected End: 05/08/25 Description: Goal Description: Disciplines: OT Outcomes Date/Time User Outcome 04/24/25 1156 Laura Rodriguez PRYOR/L Progressing 04/21/25 1612 Silvia Ramirez PRYOR/L Progressing 04/16/25 1413 Harika Yu, OTR/L Progressing Goal Note filed on 04/24/25 1156 by DON BuckleyA/Binh Evaluation of progress towards goal: Problem: Grooming Dates: Start: 04/15/25 Disciplines: OT Goal: Patient will perform grooming Independently Dates: Start: 04/15/25 Expected End: 05/08/25 Description: Goal Description: Disciplines: OT Outcomes Date/Time User Outcome 04/24/25 1156 DON BuckleyA/Binh Progressing 04/21/25 1612 Silvia Ramirez PRYOR/L Progressing 04/16/25 1413 Harika Yu, OTR/L Progressing Goal Note filed on 04/24/25 1156 by KONSTANTIN Buckley/Binh Evaluation of progress towards goal: Problem: Sitting Balance Dates: Start: 04/15/25 Disciplines: OT Goal: Improve balance to normal Dates: Start: 04/15/25 Expected End: 05/08/25 Description: Demo normal sitting balance 100% of the time. Disciplines: OT Outcomes Date/Time User Outcome 04/24/25 1156 KONSTANTIN Buckley/Binh Progressing 04/21/25 1612 DON HillsA/Binh Progressing 04/16/25 1413 Harika Yu, OTR/L Progressing Goal Note filed on 04/24/25 1156 by KONSTANTIN Buckley/Binh Evaluation of progress towards goal: Problem: Standing Balance Dates: Start: 04/15/25 Disciplines: OT Goal: Improve balance to good Dates: Start: 04/15/25 Expected End: 05/08/25 Description: Demo good standing balance w/ out use of AD for 8-10 minutes Disciplines: OT Outcomes Date/Time User Outcome 04/24/25 1156 KONSTANTIN Buckley/Binh Progressing 04/21/25 161Laura Ramirez PRYOR/Binh Progressing 04/16/25 1413 Harika Yu, OTR/L Progressing Goal Note filed on 04/24/25 1156 by KONSTANTIN Buckley/Binh Evaluation of progress towards goal: Problem: Toilet Transfers Dates: Start: 04/15/25 Disciplines: OT Goal: Patient will perform toilet transfers Independently Dates: Start: 04/15/25 Expected End: 05/08/25 Description: Goal Description: Disciplines: OT Problem: Toileting Dates: Start: 04/15/25 Disciplines: OT Goal: Patient will perform toileting Independently Dates: Start: 04/15/25 Expected End: 05/08/25 Description: Goal Description: Disciplines: OT Problem: Transfers Dates: Start: 04/15/25 Disciplines: OT Goal: Patient will perform transfers Independently Dates: Start: 04/15/25 Expected End: 05/08/25 Description: Goal Description: Disciplines: OT Outcomes Date/Time User Outcome 04/24/25 1156 KONSTANTIN Buckley/Binh Progressing 04/21/25 1612 DON HillsA/Binh Progressing 04/16/25 1413 HarikaMARGOTH Kong/Binh Progressing Goal Note filed on 04/24/25 1156 by KOBY Buckley Evaluation of progress towards goal: Occupational Therapy Care Plan (Resolved) There are no resolved problems. Principal Problem: Hemothorax on left Active Problems: COPD with acute exacerbation ([facility]) Cosigned by MARGOTH Nuñez/Binh at 04/24/2025 1:12 PM EDT Associated attestation - Silvina Mcqueen OTR/L - 04/24/2025 1:12 PM EDT I have reviewed and agree with this note and education documentation for this visit. * Discharge Planning Note - Fernanda Logan RN - 04/24/2025 11:40 AM EDT Ongoing Assessment for Discharge Needs Reviewed discharge milestones and patient needs related to discharge plan. Current estimated discharge date of Apr 24, 2025 has been reviewed by treatment team. DC plan home with . [facility] is accepting. Sent referral to [facility] for likely home O2. Waiting for home O2 evaluation. Ongoing Assessment for Discharge Needs Flowsheet Row Most Recent Value Referral To Community Referrals / Resources Provided Denies needs Services Requested Patient expects to be discharged to: home vs SNF Does the patient wish to have family/friend/caregiver involved in their discharge planning? No, thepatient does not wish to have family/friend/caregiver involved in their discharge planning Discharge Disposition Home with home health services, Home Durable Medical Equipment Facility/Service Name [facility] Facility/Service Who is the existing DME Provider? [facility] ([facility] [facility]) ) Patient choice offered Patient declined List Provided Patient declined [facility]Port List Provided [facility] Facility Patient Declined Active with Provider DC Planning Complete Discharge Milestones Yes Respiratory Indicator Who is the existing DME Provider? [facility] ([facility] [place] [place]) ) - Fernanda Logan RN 04/24/25 11:47 AM Sent home O2 documentation to [facility]. Awaiting delivery. Updated patient. Sent CRF to [facility]. - Fernanda Logan RN 04/24/25 3:25 PM * Plan of Care - Opal Sanchez RCP - 04/24/2025 11:11 AM EDT Problem: Inadequate Breathing Pattern Goal: Patient will achieve/maintain normal respiratory rate/effort Description: Patient's goal is: INTERVENTIONS 1. Assess and monitor respiratory rate, effort, breathing pattern, and oxygenation 2. Monitor patient for restlessness, anxiety, air hunger 3. Assess physical activity tolerance 4. Assess tobacco history; ask, advise, and refer as appropriate 5. Collaborate with interdisciplinary team and initiate plans/interventions as needed Outcome: Progressing Note: Evaluation of progress towards goal: Reviewed. Patient is stable on 3 liter nasal cannula. Rate and effort are stable. Will continue to monitor. * PT/OT/JEEP DRIVER - Rachel Rhodes PTA - 04/24/2025 9:40 AM EDT Physical Therapy Treatment Discharge Recommendations for Safe Patient Transition PT Discharge Disposition Recommendation: Post acute - moderate PT Post Acute Moderate Rehab Needs: Recommend moderate intensity rehab, Tolerate 1-2 hrs of therapy3-5 days/wk, Subacute or chronic functional impairment Current Impairments Informing Therapy Recommendation: Ambulation status/safety, Fall risk, ADL status, Endurance level Slab Lifting Supervisor Support for-: Mobility Deficits, ADL Deficits, Cognitive Impairments 6 Clicks: Basic Mobility Turning from your back to your side while in a flat bed without using bed rails?: A little Moving from lying on your back to sitting on side of flat bed without using bed rails?: A little Moving to and from bed to a chair (including w/c)?: A little Standing up from a chair using your arms (e.g. w/c or bedside chair)?: A little To walk in hospital room?: A little Climbing 3-5 steps with a railing?: A little Scoring 6 Clicks: Basic Mobility Raw Score: 18 CMS G Code Modifier: CK PT Treatment/Interventions: Functional transfer training, UE strengthening/ROM, Endurance training,Patient/family training, Cognitive reorientation, Balance, Bed mobility, Gait training, Functional activities PT Frequency: 5-6days/week PT Duration: LOS Assessment Patient Assessment Therapy Problem List: Decreased balance, Decreased endurance, Decreased mobility, Decreased LE ROM,Decreased LE strength Patient Response to Treatment: Progressing toward goals Mood/Affect: Appropriate for circumstances Rehab Prognosis: Good, With continued PT status post acute discharge Visit RN Communication: Yes Medical Record Reviewed: Yes PT Type of Visit: Treatment Precautions Activity: Early Mobility pass; ok to tx per RN-Myrtle Equipment: Gait Belt; L UE Sling; Bed/chair alarm Weight Bearing Status: NWB LUE Telemetry/[place]ombstone Erector Helper: Yes Oxygen Order : [facility] Guidelines Oxygen Used: 3L02 Other: HIGH FALL RISK; L Rib Fx 6-8 Subjective Physical Therapy Comments: Pt agreeable to tx. Pain Assessment Pain Assessment: No/denies pain Vitals: 04/24/25 0412 04/24/25 0724 04/24/25 1106 04/24/25 1114 BP: 130/73 127/71 Pulse: 60 64 66 61 Resp: 16 22 23 15 Temp: 37.1 C (98.7 F) 36.5 C (97.7 F) TempSrc: Oral Oral SpO2: 93% 93% 93% 100% Weight: Height: Past Surgical History: Procedure Laterality Date BRONCHOSCOPY ALVEOLAR LAVAGE N/A 12/06/2022 Performed by Richard Lentz DO at [facility] COLONOSCOPY CORONARY ARTERY BYPASS GRAFT Patient Active Problem List Diagnosis Aneurysm of thoracic aorta Aortic valve stenosis Cancer of trachea, bronchus, and lung ([facility]) Carotid artery stenosis Chronic diastolic heart failure ([facility]-HCC) COPD with acute exacerbation ([facility]) Coronary arteriosclerosis Depression HLD (hyperlipidemia) HTN (hypertension) Insomnia Left ventricular thrombus Lung nodules Smoker Systolic heart failure (CMS-HCC) Dyspnea on exertion Hemothorax on left Cognition Orientation Level: Oriented X4 Other: Pt requried cues for NWB L UE Bed Mobility Other: Nt secondary to pt in recliner upon arrival for tx. Transfers Sit to Stand: Contact guard assist, Verbal cues, Visual cues, Tactile cues Stand to Sit: Contact guard assist, Verbal cues, Visual cues, Tactile cues Other: Pt education on benefits from seated ther ex to increase strength. Gait Base of Support: Narrow Pattern: Decreased dagoberto, R Decreased heel strike, L Decreased heel strike, Forward trunk Gait Assistance: Min assist, Verbal cues, Tactile cues, Visual cues Assistive Device: Straight cane Gait Distance: 75'x2 Limiting Factors to Gait: Fatigue, Weakness, Decreased safety 2 Turns: Yes Other: Pt education on step through gait pattern with use of straight cane with good understanding through demonstration. Balance Sitting Balance: Static: Good Sitting Balance: Dynamic: Good Standing Balance: Static: Fair Standing Balance: Dynamic: Fair (-) Other: Pt education on standing dynamic balance with use of straight cane. Activity Tolerance Endurance: Tolerates 30 minutes activity with rest breaks Other: Pt tolerated tx with frequent rest breaks secondary to fatigue. Pt sp02 recovered with seated rest breaks. 04/24/25 0940 LE Seated LE seated exercises performed? Yes Ankle pumps 20 Long arc quads 20 Seated marching 20 Hip abduction/adduction 20 Other Pt education on seated ther ex to increase strength Repetitions 20 Pt positioned for comfort with call light/tray table within reach. Pt education on use of call light for assistance. ALARM ON Pt education on use of call light every day to ask staff to assist patient out of bed for meals andsitting up in recliner. This will increase circulation, promote increased lung function, To allow pressure relief, increase strength and to decrease delirium in Acute Care setting. Pt education on use of incentive spirometer to decrease risk of pneumonia with inactivity due to hospitalization 10x per hour with needing review. Alternated between UE/LE exercises for energy conservation-rest between. Pt required verbal/visual cues for sequencing, technique and pacing and to work within pain free range with exercise. Communicated with Nursing on summary of tx; pt location; safest way to transfer pt use of Gait belt/straight cane. Plan Physical Therapy Care Plan Physical Therapy Care Plan (Active) Template: PT - Physical Therapy Problem: Activity Tolerance Dates: Start: 04/15/25 Disciplines: PT Goal: Tolerate > 30 minutes of activity WITH rest breaks Dates: Start: 04/15/25 Expected End: 05/16/25 Description: Goal Description: Disciplines: PT Outcomes Date/Time User Outcome 04/24/25 1121 Rachel Rhodes, UTILIZATION MANAGEMENT NURSE Progressing 04/21/25 1123 Rachel Rhodes, UTILIZATION MANAGEMENT NURSE Progressing 04/16/25 1156 Marco Roach, UTILIZATION MANAGEMENT NURSE Progressing Problem: Gait Dates: Start: 04/15/25 Disciplines: PT Goal: Patient will perform gait Independently Dates: Start: 04/15/25 Expected End: 05/16/25 Description: 300' wit LRAD Disciplines: PT Outcomes Date/Time User Outcome 04/24/25 1121 Rachel Rhodes, UTILIZATION MANAGEMENT NURSE Progressing 04/21/25 1123 Rachel Rhodes, UTILIZATION MANAGEMENT NURSE Progressing 04/16/25 1156 Marco Roach, UTILIZATION MANAGEMENT NURSE Progressing Problem: Stairs/Curb Dates: Start: 04/15/25 Disciplines: PT Goal: Patient will perform stairs/curb with Modified [facility] Dates: Start: 04/15/25 Expected End: 05/16/25 Description: 4 steps with single rail as needed Disciplines: PT Outcomes Date/Time User Outcome 04/21/25 1123 Rachel Rhodes, UTILIZATION MANAGEMENT NURSE Progressing Problem: Standing Balance Dates: Start: 04/15/25 Disciplines: PT Goal: Improve balance to good Dates: Start: 04/15/25 Expected End: 05/16/25 Description: With LRAD Disciplines: PT Outcomes Date/Time User Outcome 04/24/25 1121 Rachel Rhodes, UTILIZATION MANAGEMENT NURSE Progressing 04/21/25 1123 Rachel Rhodes, UTILIZATION MANAGEMENT NURSE Progressing 04/16/25 1156 Marco Roach, UTILIZATION MANAGEMENT NURSE Progressing Problem: Transfers Dates: Start: 04/15/25 Disciplines: PT Goal: Patient will perform transfers Independently Dates: Start: 04/15/25 Expected End: 05/16/25 Description: With LRAD Disciplines: PT Outcomes Date/Time User Outcome 04/24/25 1121 Rachel Rhodes, UTILIZATION MANAGEMENT NURSE Progressing 04/21/25 1123 Rachel Rhodes, UTILIZATION MANAGEMENT NURSE Progressing 04/16/25 1156 Marco Roach, UTILIZATION MANAGEMENT NURSE Progressing Physical Therapy Care Plan (Resolved) There are no resolved problems. Principal Problem: Hemothorax on left Active Problems: COPD with acute exacerbation ([facility]) Cosigned by Mireya Paulino, PT at 04/24/2025 4:15 PM EDT Associated attestation - Mireya Paulino, PT - 04/24/2025 4:15 PM EDT I have reviewed and agree with this note and education documentation for this visit. * Plan of Care - Myrtle Major RN - 04/24/2025 7:27 AM EDT Problem: Pain Goal: Patient goal is pain score less than 4, able to rest, and participant in treatment plan as appropriate Description: INTERVENTIONS: 1. Encourage patient or legal technical account representative to report early pain and ask for pain medicine when needed 2. Assess pain using appropriate pain scale and include the scale used when documenting 3. Administer analgesics based on type and severity of pain and evaluate response within appropriate time frame 4. Implement non-pharmacological measures as appropriate and evaluate response 5. Consider cultural and social influences on pain and pain management 6. Notify LIP if interventions ineffective or patient reports new pain 7. Monitor vital signs including pulse ox, end-tidal CO2 based on pain intervention 8. Reassess pain per policy 9. Teach patient or legal technical account representative interventions for comforting Outcome: Progressing Note: Evaluation of progress towards goal: Pain assessed using appropriate pain rating scale 0-10 scale Problem: Safety Goal: Patient will be injury free during hospitalization Description: INTERVENTIONS: 1. Assess patient's risk for falls and implement fall prevention plan of care per policy 2. Provide and maintain a safe environment 3. Proper use of double Identifiers 4. Medication administration using the 5 rights 5. Hand hygiene 6. Specimens are labeled at the bedside 7. Instruct patient/ patient technical account representative about use of safety devices 8. Include patient/ patient technical account representative in decisions related to safety Outcome: Progressing Note: Evaluation of progress towards goal: Safe environment maintained, no falls or injuries Problem: Infection Goal: Absence of infection during hospitalization Description: INTERVENTIONS 1. Assess and monitor for signs and symptoms of infection. 2. Monitor lab/diagnostic results. 3. Monitor all insertion sites i.e., indwelling lines, tubes and drains. 4. Monitor endotracheal (as able) and nasal secretions for changes in amount and color. 5. Administer medications as ordered. 6. Instruct and encourage patient and family to use good hand hygiene technique. 7. Identify and instruct patient/patient technical account representative in use of appropriate isolation precautionsfor identified infection/symptoms. 8. Provide and discuss with patient/patient technical account representative on educational MDRO sheet. 9. Encourage and monitor nutritional status daily and consult dish network installer if indicated. 10. Implement neutropenic guidelines as needed. Outcome: Progressing Note: Evaluation of progress towards goal: Afebrile Problem: Knowledge Deficit Goal: Patient/patient technical account representative demonstrates understanding of disease process, treatment plan,medications, and discharge instructions Description: INTERVENTIONS 1. Complete learning assessment and assess knowledge base 2. Provide teaching at level of understanding 3. Provide teaching via preferred learning method(s) Outcome: Progressing Note: Evaluation of progress towards goal: Pt teaching completed this shift Problem: Discharge Planning Goal: Discharge to post-acute care, other facility, or home with appropriate resources Description: Patient's goal is: INTERVENTIONS 1. Conduct assessment to determine patient/family and health care team treatment goals, and need for post-acute services based on payer coverage, community resources, and patient preferences, and barriers to discharge 2. Coordinate with Social work, Care Navigation, and Utilization Review to arrange appropriate level of services according to patient's needs based on patient preference and payer coverage in collaboration with the physician and health care team 3. Address psychosocial, clinical, and financial barriers to discharge as identified in assessment in conjunction with the patient/family and health care team 4. Consult appropriate ancillary services (i.e.. PT/OT/ST, etc) as needed 5. Communicate with and update the patient/family, physician, and health care team regarding progress on the discharge plan 6. Identify discharge learning needs (meds, wound care, etc). 7. Arrange for needed discharge transportation as appropriate Outcome: Progressing Note: Evaluation of progress towards goal: Coordinating discharge with care navigation Problem: Glucose Imbalance Goal: Clinical indication of glucose balance is achieved Description: Patient's goal is: INTERVENTIONS 1. Monitor blood glucose levels as ordered 2. Administer medications as ordered 3. Notify physician of ineffective treatment plan Outcome: Progressing Note: Evaluation of progress towards goal: Glucose monitored/treated Goal: Patient's discharge needs are met Description: Patient's goal is: INTERVENTIONS 1. Assess patient for self-management skills 2. Encourage participation in diabetes management 3. Identify potential discharge barriers on admission and throughout hospital stay 4. Involve patient/S.O. in discharge planning process 5. Communicate referral to digital imager as appropriate 6. Communicate referral to dish network installer as appropriate 7. Collaborate with case management/renal social worker for discharge needs Outcome: Progressing Note: Evaluation of progress towards goal: Coordinating discharge with care navigation Problem: Potential for Compromised Skin Integrity Goal: Skin integrity is maintained or improved Description: Patient's goal is: INTERVENTIONS 1. Perform initial skin assessment on admission and as needed 2. Turn patient every 2 hours and PRN 3. Relieve pressure to bony prominences 4. Avoid shearing 5. Keep skin clean and dry 6. Alternate a full bath with partial baths for elderly 7. Apply lotion/moisturizer on skin 8. Monitor patient's hygiene practices 9. Float heels 10. Collaborate with interdisciplinary team and initiate plans and interventions as needed Outcome: Progressing Note: Evaluation of progress towards goal: Skin assessment performed every shift Goal: Patient's nutritional intake is adequate Description: Patient's goal is: INTERVENTIONS 1. Assess and monitor food intake and supplements, patient food preferences, nausea, vomiting, labs, oral cavity (gums, teeth, tongue, mucosa), proper denture fit, and cultural beliefs 2. Monitor for signs of hypoglycemia and hyperglycemia 3. Collaborate with interdisciplinary team and initiate plan and interventions as ordered 4. Monitor patient's weight 5. Assist patient with meals/food selection 6. Assist patient with eating 7. Allow adequate time for meals 8. Provide pleasant environment during mealtime 9. Increase social contact during mealtimes 10. Plan activities to conserve energy 11. Encourage/perform oral hygiene as appropriate 12. Encourage patient to take dietary supplement as ordered 13. Collaborate with clinical dish network installer 14. Include patient/ patient's technical account representative in decisions related to nutrition Outcome: Progressing Note: Evaluation of progress towards goal: Intake adequate Problem: Urinary Incontinence Goal: Perineal skin integrity is maintained or improved Description: INTERVENTIONS 1. Assess genitourinary system, perineal skin, labs (urinalysis), and history of incontinence to include past management, aggravating, and alleviating factors 2. Keep skin clean and dry 3. Apply skin protectant 4. Develop skin care regimen 5. Provide privacy when changing patients incontinence device to maintain their dignity 6. Consider placing an indwelling catheter 7. Collaborate with interdisciplinary team and initiate plans and interventions as needed Outcome: Progressing Note: Evaluation of progress towards goal: Problem: Moderate - High Risk Fall Score Description: Cruz Fall Score of =/> 25 or indicated by [facility] Assessment Goal: Patient should be free from fall Description: Interventions: 1. [place] to environment 2. Hourly rounds addressing the 4 P's (Pain, Positioning, Possessions, Potty) 3. Clear area of hazards (spills, clutter, electrical cords, unnecessary equipment) 4. Place equipment (bed & TV controls, call light, phone, urinal) within reach 5. Encourage patient to wear glasses and hearing aides as appropriate 6. Maintain bed in lowest position 7. Lock wheels on bed/wheelchair 8. Provide adequate lighting, including night light 9. Assess need for additional bedding, food/fluids, pain med's prior to sleep/routinely 10. Provide gripper slippers or personal non-skid footwear 11. Teach patient and patient technical account representative to maintain environment for safety and engage in all aspects of fall prevention program 12. Remind patient to call for help before getting out of bed 13. Initiate bed/chair/exit alarms supportive devices as appropriate, (chair wedge, no-skid floor mat, raised edge mattress, hip protectors) 14. Locate patient bed assignment for optimal visualization 15. Evaluate and identify Safe Patient Handling Equipment needs 16. Provide supervision when out of bed or chair 17. Utilize gait belt as needed to assist with ambulation 18. Place adaptive equipment (cane, walker) within reach 19. Request patient technical account representative bring adaptive equipment/mobility aids from home or obtain and provide as needed 20. Consult pharmacy regarding effects of med's affecting mobility, cognition, and alternatives 21. Obtain physician order for PT if risk factors associated with mobility are present 22. Obtain physician order for OT as appropriate 23. Utilize diversional activities 24. Educate patient and patient technical account representative how to maintain a safe environment during visitationtimes (notify nurse prior to leaving bedside) 25. Consider appropriateness of medical or non-coroner/medical examiner 26. Set up voiding schedule as appropriate (every 2 hours) Outcome: Progressing Note: Evaluation of progress towards goal: Pt remains free from falls Problem: Inadequate Breathing Pattern Goal: Patient will achieve/maintain normal respiratory rate/effort Description: Patient's goal is: INTERVENTIONS 1. Assess and monitor respiratory rate, effort, breathing pattern, and oxygenation 2. Monitor patient for restlessness, anxiety, air hunger 3. Assess physical activity tolerance 4. Assess tobacco history; ask, advise, and refer as appropriate 5. Collaborate with interdisciplinary team and initiate plans/interventions as needed Outcome: Progressing Note: Evaluation of progress towards goal: * Plan of Care - Timothy Sheppard RN - 04/23/2025 8:43 PM EDT Problem: Pain Goal: Patient goal is pain score less than 4, able to rest, and participant in treatment plan as appropriate Description: INTERVENTIONS: 1. Encourage patient or legal technical account representative to report early pain and ask for pain medicine when needed 2. Assess pain using appropriate pain scale and include the scale used when documenting 3. Administer analgesics based on type and severity of pain and evaluate response within appropriate time frame 4. Implement non-pharmacological measures as appropriate and evaluate response 5. Consider cultural and social influences on pain and pain management 6. Notify LIP if interventions ineffective or patient reports new pain 7. Monitor vital signs including pulse ox, end-tidal CO2 based on pain intervention 8. Reassess pain per policy 9. Teach patient or legal technical account representative interventions for comforting Outcome: Progressing Note: Evaluation of progress towards goal: Patient rates pain as tolerable this shift. Patient encouraged to report need for pain medications as needed. Patient assessed for pain using appropriate pain scale. Problem: Safety Goal: Patient will be injury free during hospitalization Description: INTERVENTIONS: 1. Assess patient's risk for falls and implement fall prevention plan of care per policy 2. Provide and maintain a safe environment 3. Proper use of double Identifiers 4. Medication administration using the 5 rights 5. Hand hygiene 6. Specimens are labeled at the bedside 7. Instruct patient/ patient technical account representative about use of safety devices 8. Include patient/ patient technical account representative in decisions related to safety Outcome: Progressing Note: Evaluation of progress towards goal: Safety maintained and call light within reach. No falls or injuries this shift. Bed rails up x2. Orientation reviewed. Hourly rounded maintained. Will continue to maintain safety until end of this shift Problem: Infection Goal: Absence of infection during hospitalization Description: INTERVENTIONS 1. Assess and monitor for signs and symptoms of infection. 2. Monitor lab/diagnostic results. 3. Monitor all insertion sites i.e., indwelling lines, tubes and drains. 4. Monitor endotracheal (as able) and nasal secretions for changes in amount and color. 5. Administer medications as ordered. 6. Instruct and encourage patient and family to use good hand hygiene technique. 7. Identify and instruct patient/patient technical account representative in use of appropriate isolation precautionsfor identified infection/symptoms. 8. Provide and discuss with patient/patient technical account representative on educational MDRO sheet. 9. Encourage and monitor nutritional status daily and consult dish network installer if indicated. 10. Implement neutropenic guidelines as needed. Outcome: Progressing Note: Evaluation of progress towards goal: Patient evaluated for s/s of infection. Patient's vital signs,labs, and diagnostic results are being monitored each shift. Problem: Knowledge Deficit Goal: Patient/patient technical account representative demonstrates understanding of disease process, treatment plan,medications, and discharge instructions Description: INTERVENTIONS 1. Complete learning assessment and assess knowledge base 2. Provide teaching at level of understanding 3. Provide teaching via preferred learning method(s) Outcome: Progressing Note: Evaluation of progress towards goal: Assessment of best learning methods and knowledge base completed.Teaching provided at patient's level of understanding, and via patient's preferred learningmethods when applicable. Problem: Discharge Planning Goal: Discharge to post-acute care, other facility, or home with appropriate resources Description: Patient's goal is: INTERVENTIONS 1. Conduct assessment to determine patient/family and health care team treatment goals, and need for post-acute services based on payer coverage, community resources, and patient preferences, and barriers to discharge 2. Coordinate with Social work, Care Navigation, and Utilization Review to arrange appropriate level of services according to patient's needs based on patient preference and payer coverage in collaboration with the physician and health care team 3. Address psychosocial, clinical, and financial barriers to discharge as identified in assessment in conjunction with the patient/family and health care team 4. Consult appropriate ancillary services (i.e.. PT/OT/ST, etc) as needed 5. Communicate with and update the patient/family, physician, and health care team regarding progress on the discharge plan 6. Identify discharge learning needs (meds, wound care, etc). 7. Arrange for needed discharge transportation as appropriate Outcome: Progressing Note: Evaluation of progress towards goal: Discharge planning is in progress at this time. Pt to gohome with home healthcare. Problem: Inadequate Breathing Pattern Goal: Patient will achieve/maintain normal respiratory rate/effort Description: Patient's goal is: INTERVENTIONS 1. Assess and monitor respiratory rate, effort, breathing pattern, and oxygenation 2. Monitor patient for restlessness, anxiety, air hunger 3. Assess physical activity tolerance 4. Assess tobacco history; ask, advise, and refer as appropriate 5. Collaborate with interdisciplinary team and initiate plans/interventions as needed Outcome: Progressing Note: Evaluation of progress towards goal: Patient's respiratory status is being closely monitored this shift. Patient's respiratory status is improving at this time. Pt is maintaining good SPO2 on 4L nasal canula. * Plan of Care - Gale RodriguezWALE peters - 04/23/2025 10:40 AM EDT Problem: Inadequate Breathing Pattern Goal: Patient will achieve/maintain normal respiratory rate/effort Description: Patient's goal is: INTERVENTIONS 1. Assess and monitor respiratory rate, effort, breathing pattern, and oxygenation 2. Monitor patient for restlessness, anxiety, air hunger 3. Assess physical activity tolerance 4. Assess tobacco history; ask, advise, and refer as appropriate 5. Collaborate with interdisciplinary team and initiate plans/interventions as needed Outcome: Progressing Note: Evaluation of progress towards goal: Reviewed. Patient stable on NC. Will continue to monitor Respiratory Therapy Clinical Practice Guidelines Consult Clinical Practice Guidelines Ordered Consult Assessment: Consult, Bronchodilator Bronchodilator Indications: Bronchospasm/wheezing, Diseases requiring aerosolized medication Bronchodilator Total: 3 Patient Active Problem List Diagnosis Aneurysm of thoracic aorta Aortic valve stenosis Cancer of trachea, bronchus, and lung ([facility]) Carotid artery stenosis Chronic diastolic heart failure ([facility]) COPD with acute exacerbation ([facility] [place] [place]) Coronary arteriosclerosis Depression HLD (hyperlipidemia) HTN (hypertension) Insomnia Left ventricular thrombus Lung nodules Smoker Systolic heart failure ([facility]) Dyspnea on exertion Hemothorax on left Last Chest XRAY: Reviewed Pulmonary History: COPD, Lung CA RT Reassessment Due In: 24 hours Bronchodilator Respiratory Rate Level 3: 20-25 Dyspnea Level 2: Periodic SOB Breath Sounds Level 3: Expiratory wheezing or cough Respiratory History Level 4: Diagnosis of pulmonary disease such as: Asthma/reactive airway disease; Bronchitis/Emphysema (COPD) ; Cystic Fibrosis ; Severe Laryngitis/Tracheitis/Bronchiectasis ; Microbial infection ; Anesthesia related bronchospasms Oxygen to Keep SpO2 Greater Than Or Equal To 92% Level 3: 4-6 LPM or >35% - <50% ; NIV 51 - 65% Peak Flow ([facility] Only) Home Therapy: Not Applicable Patients Current Level & Intervention: 3 Four times daily and Q4 PRN as needed for wheezing * Discharge Planning Note - Fernanda Logan RN - 04/23/2025 10:02 AM EDT Ongoing Assessment for Discharge Needs Reviewed discharge milestones and patient needs related to discharge plan. Current estimated discharge date of Unknown has been reviewed by treatment team. Medical focus: oxygenation, 4L O2 NC, IV antibiotic plan Discharge plan: Home with HH. [facility] accepting. Pt will need home O2 eval prior to discharge. Ongoing Assessment for Discharge Needs Flowsheet Row Most Recent Value Referral To Community Referrals / Resources Provided Denies needs Services Requested Patient expects to be discharged to: home vs SNF Does the patient wish to have family/friend/caregiver involved in their discharge planning? No, thepatient does not wish to have family/friend/caregiver involved in their discharge planning Discharge Disposition Home with home health services Facility/Service Name [facility] Facility/Service Patient choice offered Patient declined List Provided Patient declined [facility] List Provided [facility] Patient Declined Active with Provider DC Planning Complete Discharge Milestones Yes - Fernanda Logan RN 04/23/25 10:03 AM * Plan of Care - Rai Joiner RCP - 04/23/2025 8:43 AM EDT Problem: Inadequate Breathing Pattern Goal: Patient will achieve/maintain normal respiratory rate/effort Description: Patient's goal is: INTERVENTIONS 1. Assess and monitor respiratory rate, effort, breathing pattern, and oxygenation 2. Monitor patient for restlessness, anxiety, air hunger 3. Assess physical activity tolerance 4. Assess tobacco history; ask, advise, and refer as appropriate 5. Collaborate with interdisciplinary team and initiate plans/interventions as needed Outcome: Progressing Note: Evaluation of progress towards goal: Reviewed. Pt stable on 4L NC. High flow on standby. Willcontinue to monitor. * Plan of Care - Myrtle Major RN - 04/23/2025 7:26 AM EDT Problem: Pain Goal: Patient goal is pain score less than 4, able to rest, and participant in treatment plan as appropriate Description: INTERVENTIONS: 1. Encourage patient or legal technical account representative to report early pain and ask for pain medicine when needed 2. Assess pain using appropriate pain scale and include the scale used when documenting 3. Administer analgesics based on type and severity of pain and evaluate response within appropriate time frame 4. Implement non-pharmacological measures as appropriate and evaluate response 5. Consider cultural and social influences on pain and pain management 6. Notify LIP if interventions ineffective or patient reports new pain 7. Monitor vital signs including pulse ox, end-tidal CO2 based on pain intervention 8. Reassess pain per policy 9. Teach patient or legal technical account representative interventions for comforting Outcome: Progressing Note: Evaluation of progress towards goal: Pain assessed using appropriate pain rating scale 0-10 scale Problem: Safety Goal: Patient will be injury free during hospitalization Description: INTERVENTIONS: 1. Assess patient's risk for falls and implement fall prevention plan of care per policy 2. Provide and maintain a safe environment 3. Proper use of double Identifiers 4. Medication administration using the 5 rights 5. Hand hygiene 6. Specimens are labeled at the bedside 7. Instruct patient/ patient technical account representative about use of safety devices 8. Include patient/ patient technical account representative in decisions related to safety Outcome: Progressing Note: Evaluation of progress towards goal: Safe environment maintained, no falls or injuries Problem: Infection Goal: Absence of infection during hospitalization Description: INTERVENTIONS 1. Assess and monitor for signs and symptoms of infection. 2. Monitor lab/diagnostic results. 3. Monitor all insertion sites i.e., indwelling lines, tubes and drains. 4. Monitor endotracheal (as able) and nasal secretions for changes in amount and color. 5. Administer medications as ordered. 6. Instruct and encourage patient and family to use good hand hygiene technique. 7. Identify and instruct patient/patient technical account representative in use of appropriate isolation precautionsfor identified infection/symptoms. 8. Provide and discuss with patient/patient technical account representative on educational MDRO sheet. 9. Encourage and monitor nutritional status daily and consult dish network installer if indicated. 10. Implement neutropenic guidelines as needed. Outcome: Progressing Note: Evaluation of progress towards goal: Afebrile Problem: Knowledge Deficit Goal: Patient/patient technical account representative demonstrates understanding of disease process, treatment plan,medications, and discharge instructions Description: INTERVENTIONS 1. Complete learning assessment and assess knowledge base 2. Provide teaching at level of understanding 3. Provide teaching via preferred learning method(s) Outcome: Progressing Note: Evaluation of progress towards goal: Pt teaching completed this shift Problem: Discharge Planning Goal: Discharge to post-acute care, other facility, or home with appropriate resources Description: Patient's goal is: INTERVENTIONS 1. Conduct assessment to determine patient/family and health care team treatment goals, and need for post-acute services based on payer coverage, community resources, and patient preferences, and barriers to discharge 2. Coordinate with Social work, Care Navigation, and Utilization Review to arrange appropriate level of services according to patient's needs based on patient preference and payer coverage in collaboration with the physician and health care team 3. Address psychosocial, clinical, and financial barriers to discharge as identified in assessment in conjunction with the patient/family and health care team 4. Consult appropriate ancillary services (i.e.. PT/OT/ST, etc) as needed 5. Communicate with and update the patient/family, physician, and health care team regarding progress on the discharge plan 6. Identify discharge learning needs (meds, wound care, etc). 7. Arrange for needed discharge transportation as appropriate Outcome: Progressing Note: Evaluation of progress towards goal: Coordinating discharge with care navigation Problem: Glucose Imbalance Goal: Clinical indication of glucose balance is achieved Description: Patient's goal is: INTERVENTIONS 1. Monitor blood glucose levels as ordered 2. Administer medications as ordered 3. Notify physician of ineffective treatment plan Outcome: Progressing Note: Evaluation of progress towards goal: Glucose monitored/treated Goal: Patient's discharge needs are met Description: Patient's goal is: INTERVENTIONS 1. Assess patient for self-management skills 2. Encourage participation in diabetes management 3. Identify potential discharge barriers on admission and throughout hospital stay 4. Involve patient/S.O. in discharge planning process 5. Communicate referral to digital imager as appropriate 6. Communicate referral to dish network installer as appropriate 7. Collaborate with case management/renal social worker for discharge needs Outcome: Progressing Note: Evaluation of progress towards goal: Coordinating discharge with care navigation Problem: Potential for Compromised Skin Integrity Goal: Skin integrity is maintained or improved Description: Patient's goal is: INTERVENTIONS 1. Perform initial skin assessment on admission and as needed 2. Turn patient every 2 hours and PRN 3. Relieve pressure to bony prominences 4. Avoid shearing 5. Keep skin clean and dry 6. Alternate a full bath with partial baths for elderly 7. Apply lotion/moisturizer on skin 8. Monitor patient's hygiene practices 9. Float heels 10. Collaborate with interdisciplinary team and initiate plans and interventions as needed Outcome: Progressing Note: Evaluation of progress towards goal: Skin assessment performed every shift Goal: Patient's nutritional intake is adequate Description: Patient's goal is: INTERVENTIONS 1. Assess and monitor food intake and supplements, patient food preferences, nausea, vomiting, labs, oral cavity (gums, teeth, tongue, mucosa), proper denture fit, and cultural beliefs 2. Monitor for signs of hypoglycemia and hyperglycemia 3. Collaborate with interdisciplinary team and initiate plan and interventions as ordered 4. Monitor patient's weight 5. Assist patient with meals/food selection 6. Assist patient with eating 7. Allow adequate time for meals 8. Provide pleasant environment during mealtime 9. Increase social contact during mealtimes 10. Plan activities to conserve energy 11. Encourage/perform oral hygiene as appropriate 12. Encourage patient to take dietary supplement as ordered 13. Collaborate with clinical dish network installer 14. Include patient/ patient's technical account representative in decisions related to nutrition Outcome: Progressing Note: Evaluation of progress towards goal: Intake adequate Problem: Urinary Incontinence Goal: Perineal skin integrity is maintained or improved Description: INTERVENTIONS 1. Assess genitourinary system, perineal skin, labs (urinalysis), and history of incontinence to include past management, aggravating, and alleviating factors 2. Keep skin clean and dry 3. Apply skin protectant 4. Develop skin care regimen 5. Provide privacy when changing patients incontinence device to maintain their dignity 6. Consider placing an indwelling catheter 7. Collaborate with interdisciplinary team and initiate plans and interventions as needed Outcome: Progressing Note: Evaluation of progress towards goal: Skin assessment performed every shift Problem: Moderate - High Risk Fall Score Description: Cruz Fall Score of =/> 25 or indicated by [facility] Assessment Goal: Patient should be free from fall Description: Interventions: 1. [place] to environment 2. Hourly rounds addressing the 4 P's (Pain, Positioning, Possessions, Potty) 3. Clear area of hazards (spills, clutter, electrical cords, unnecessary equipment) 4. Place equipment (bed & TV controls, call light, phone, urinal) within reach 5. Encourage patient to wear glasses and hearing aides as appropriate 6. Maintain bed in lowest position 7. Lock wheels on bed/wheelchair 8. Provide adequate lighting, including night light 9. Assess need for additional bedding, food/fluids, pain med's prior to sleep/routinely 10. Provide gripper slippers or personal non-skid footwear 11. Teach patient and patient technical account representative to maintain environment for safety and engage in all aspects of fall prevention program 12. Remind patient to call for help before getting out of bed 13. Initiate bed/chair/exit alarms supportive devices as appropriate, (chair wedge, no-skid floor mat, raised edge mattress, hip protectors) 14. Locate patient bed assignment for optimal visualization 15. Evaluate and identify Safe Patient Handling Equipment needs 16. Provide supervision when out of bed or chair 17. Utilize gait belt as needed to assist with ambulation 18. Place adaptive equipment (cane, walker) within reach 19. Request patient technical account representative bring adaptive equipment/mobility aids from home or obtain and provide as needed 20. Consult pharmacy regarding effects of med's affecting mobility, cognition, and alternatives 21. Obtain physician order for PT if risk factors associated with mobility are present 22. Obtain physician order for OT as appropriate 23. Utilize diversional activities 24. Educate patient and patient technical account representative how to maintain a safe environment during visitationtimes (notify nurse prior to leaving bedside) 25. Consider appropriateness of medical or non-coroner/medical examiner 26. Set up voiding schedule as appropriate (every 2 hours) Outcome: Progressing Note: Evaluation of progress towards goal: Pt remains free from falls Problem: Inadequate Breathing Pattern Goal: Patient will achieve/maintain normal respiratory rate/effort Description: Patient's goal is: INTERVENTIONS 1. Assess and monitor respiratory rate, effort, breathing pattern, and oxygenation 2. Monitor patient for restlessness, anxiety, air hunger 3. Assess physical activity tolerance 4. Assess tobacco history; ask, advise, and refer as appropriate 5. Collaborate with interdisciplinary team and initiate plans/interventions as needed Outcome: Progressing Note: Evaluation of progress towards goal: * Plan of Care - Tanya Beckwith RN - 04/22/2025 10:59 PM EDT Problem: Pain Goal: Patient goal is pain score less than 4, able to rest, and participant in treatment plan as appropriate Description: INTERVENTIONS: 1. Encourage patient or legal technical account representative to report early pain and ask for pain medicine when needed 2. Assess pain using appropriate pain scale and include the scale used when documenting 3. Administer analgesics based on type and severity of pain and evaluate response within appropriate time frame 4. Implement non-pharmacological measures as appropriate and evaluate response 5. Consider cultural and social influences on pain and pain management 6. Notify LIP if interventions ineffective or patient reports new pain 7. Monitor vital signs including pulse ox, end-tidal CO2 based on pain intervention 8. Reassess pain per policy 9. Teach patient or legal technical account representative interventions for comforting Outcome: Not Progressing Note: Evaluation of progress towards goal: Patient able to rate pain on scale of 0-10. Will continue to assess pain throughout shift. Problem: Safety Goal: Patient will be injury free during hospitalization Description: INTERVENTIONS: 1. Assess patient's risk for falls and implement fall prevention plan of care per policy 2. Provide and maintain a safe environment 3. Proper use of double Identifiers 4. Medication administration using the 5 rights 5. Hand hygiene 6. Specimens are labeled at the bedside 7. Instruct patient/ patient technical account representative about use of safety devices 8. Include patient/ patient technical account representative in decisions related to safety Outcome: Progressing Note: Evaluation of progress towards goal: Pt in bed in the lowest position with 2/4 side rails up,wheels locked, and non slip socks on. Pt able to call out appropriately using call light. Appropriate ID bands on. Bedside table, call light, and belongings within reach. Will continue to monitor throughout shift. Problem: Infection Goal: Absence of infection during hospitalization Description: INTERVENTIONS 1. Assess and monitor for signs and symptoms of infection. 2. Monitor lab/diagnostic results. 3. Monitor all insertion sites i.e., indwelling lines, tubes and drains. 4. Monitor endotracheal (as able) and nasal secretions for changes in amount and color. 5. Administer medications as ordered. 6. Instruct and encourage patient and family to use good hand hygiene technique. 7. Identify and instruct patient/patient technical account representative in use of appropriate isolation precautionsfor identified infection/symptoms. 8. Provide and discuss with patient/patient technical account representative on educational MDRO sheet. 9. Encourage and monitor nutritional status daily and consult dish network installer if indicated. 10. Implement neutropenic guidelines as needed. Outcome: Progressing Note: Evaluation of progress towards goal: Pt afebrile. Will continue to monitor Problem: Knowledge Deficit Goal: Patient/patient technical account representative demonstrates understanding of disease process, treatment plan,medications, and discharge instructions Description: INTERVENTIONS 1. Complete learning assessment and assess knowledge base 2. Provide teaching at level of understanding 3. Provide teaching via preferred learning method(s) Outcome: Progressing Note: Evaluation of progress towards goal: Pt verbalizes understanding of daily plan of care. Will continue to educate as questions arise and care plan changes. Problem: Discharge Planning Goal: Discharge to post-acute care, other facility, or home with appropriate resources Description: Patient's goal is: INTERVENTIONS 1. Conduct assessment to determine patient/family and health care team treatment goals, and need for post-acute services based on payer coverage, community resources, and patient preferences, and barriers to discharge 2. Coordinate with Social work, Care Navigation, and Utilization Review to arrange appropriate level of services according to patient's needs based on patient preference and payer coverage in collaboration with the physician and health care team 3. Address psychosocial, clinical, and financial barriers to discharge as identified in assessment in conjunction with the patient/family and health care team 4. Consult appropriate ancillary services (i.e.. PT/OT/ST, etc) as needed 5. Communicate with and update the patient/family, physician, and health care team regarding progress on the discharge plan 6. Identify discharge learning needs (meds, wound care, etc). 7. Arrange for needed discharge transportation as appropriate Outcome: Progressing Note: Evaluation of progress towards goal: Discharge planning is in progress at this time Problem: Moderate - High Risk Fall Score Description: Cruz Fall Score of =/> 25 or indicated by [facility] Assessment Goal: Patient should be free from fall Description: Interventions: 1. [place] to environment 2. Hourly rounds addressing the 4 P's (Pain, Positioning, Possessions, Potty) 3. Clear area of hazards (spills, clutter, electrical cords, unnecessary equipment) 4. Place equipment (bed & TV controls, call light, phone, urinal) within reach 5. Encourage patient to wear glasses and hearing aides as appropriate 6. Maintain bed in lowest position 7. Lock wheels on bed/wheelchair 8. Provide adequate lighting, including night light 9. Assess need for additional bedding, food/fluids, pain med's prior to sleep/routinely 10. Provide gripper slippers or personal non-skid footwear 11. Teach patient and patient technical account representative to maintain environment for safety and engage in all aspects of fall prevention program 12. Remind patient to call for help before getting out of bed 13. Initiate bed/chair/exit alarms supportive devices as appropriate, (chair wedge, no-skid floor mat, raised edge mattress, hip protectors) 14. Locate patient bed assignment for optimal visualization 15. Evaluate and identify Safe Patient Handling Equipment needs 16. Provide supervision when out of bed or chair 17. Utilize gait belt as needed to assist with ambulation 18. Place adaptive equipment (cane, walker) within reach 19. Request patient technical account representative bring adaptive equipment/mobility aids from home or obtain and provide as needed 20. Consult pharmacy regarding effects of med's affecting mobility, cognition, and alternatives 21. Obtain physician order for PT if risk factors associated with mobility are present 22. Obtain physician order for OT as appropriate 23. Utilize diversional activities 24. Educate patient and patient technical account representative how to maintain a safe environment during visitationtimes (notify nurse prior to leaving bedside) 25. Consider appropriateness of medical or non-coroner/medical examiner 26. Set up voiding schedule as appropriate (every 2 hours) Outcome: Progressing Note: Evaluation of progress towards goal: Patient should be free from fall Problem: Inadequate Breathing Pattern Goal: Patient will achieve/maintain normal respiratory rate/effort Description: Patient's goal is: INTERVENTIONS 1. Assess and monitor respiratory rate, effort, breathing pattern, and oxygenation 2. Monitor patient for restlessness, anxiety, air hunger 3. Assess physical activity tolerance 4. Assess tobacco history; ask, advise, and refer as appropriate 5. Collaborate with interdisciplinary team and initiate plans/interventions as needed Outcome: Progressing Note: Evaluation of progress towards goal: Pt on 4L nasal canula. Will continue to monitor. * Discharge Planning Note - Joseseverinodra Jeffrey Denise - 04/22/2025 3:48 PM EDT DISCHARGE PLANNING NOTE Referral sent to. [facility]- P# ; F# , [place], [place] P# ; F# ), [place], [place] ; * Discharge Planning Note - Fernanda Logan RN - 04/22/2025 3:40 PM EDT Ongoing Assessment for Discharge Needs Reviewed discharge milestones and patient needs related to discharge plan. Current estimated discharge date of Unknown has been reviewed by treatment team. Medical focus includes: oxygenation (was on high flow earlier today, now back on 6L NC. Will likelyneed home O2 eval), IV antibiotic plan. Discharge plan: Home with HH. Met with patient to discuss the discharge plan. Offered SNF again. Ptis [facility] at this time and still refusing SNF placement. He would rather do home therapy. CN emphasized that home care will not be able to provide daily care/supervision and pt has 12 stairs to go down to get into his apartment. Pt states he doesn't have any concerns about this. He had [facility] in the past and would like them again. Tasked referral to [facility]. He has a walker at home and states he has neighbor support. Ongoing Assessment for Discharge Needs Flowsheet Row Most Recent Value Referral To Community Referrals / Resources Provided Denies needs Services Requested Patient expects to be discharged to: home vs SNF Does the patient wish to have family/friend/caregiver involved in their discharge planning? No, thepatient does not wish to have family/friend/caregiver involved in their discharge planning Discharge Disposition Home with home health services Patient choice offered Patient declined List Provided Patient declined [facility] List Provided [facility] Patient Declined Active with Provider DC Planning Complete Discharge Milestones Yes - Fernanda Logan RN 04/22/25 3:42 PM * Plan of Care - Gale Zheng RCP - 04/22/2025 1:37 PM EDT Problem: Inadequate Breathing Pattern Goal: Patient will achieve/maintain normal respiratory rate/effort Description: Patient's goal is: INTERVENTIONS 1. Assess and monitor respiratory rate, effort, breathing pattern, and oxygenation 2. Monitor patient for restlessness, anxiety, air hunger 3. Assess physical activity tolerance 4. Assess tobacco history; ask, advise, and refer as appropriate 5. Collaborate with interdisciplinary team and initiate plans/interventions as needed Outcome: Progressing Note: Evaluation of progress towards goal: Reviewed. Patient placed on HFNC this morning due to decreasing SpO2. Tolerating HFNC. Will continue to wean as tolerated. Will monitor Respiratory Therapy Clinical Practice Guidelines Consult Clinical Practice Guidelines Ordered Consult Assessment: Consult, Bronchodilator Bronchodilator Indications: Bronchospasm/wheezing, Diseases requiring aerosolized medication Bronchodilator Total: 3 Patient Active Problem List Diagnosis Aneurysm of thoracic aorta Aortic valve stenosis Cancer of trachea, bronchus, and lung ([facility] [place] Carotid artery stenosis Chronic diastolic heart failure ([facility] [place] COPD with acute exacerbation ([facility] [place] Coronary arteriosclerosis Depression HLD (hyperlipidemia) HTN (hypertension) Insomnia Left ventricular thrombus Lung nodules Smoker Systolic heart failure ([facility] [place] Dyspnea on exertion Hemothorax on left Last Chest XRAY: Reviewed Pulmonary History: COPD, Lung CA RT Reassessment Due In: 24 hours Bronchodilator Respiratory Rate Level 3: 20-25 Dyspnea Level 3: Dyspnea on exertion or periodic stated SOB Breath Sounds Level 3: Expiratory wheezing or cough Respiratory History Level 4: Diagnosis of pulmonary disease such as: Asthma/reactive airway disease; Bronchitis/Emphysema (COPD) ; Cystic Fibrosis ; Severe Laryngitis/Tracheitis/Bronchiectasis ; Microbial infection ; Anesthesia related bronchospasms Oxygen to Keep SpO2 Greater Than Or Equal To 92% Level 3: 4-6 LPM or >35% - <50% ; NIV 51 - 65% Peak Flow ([facility] Only) Home Therapy: Not Applicable Patients Current Level & Intervention: 3 Four times daily and Q4 PRN as needed for wheezing * Plan of Care - Tanya Beckwith RN - 04/22/2025 12:38 AM EDT Problem: Pain Goal: Patient goal is pain score less than 4, able to rest, and participant in treatment plan as appropriate Description: INTERVENTIONS: 1. Encourage patient or legal technical account representative to report early pain and ask for pain medicine when needed 2. Assess pain using appropriate pain scale and include the scale used when documenting 3. Administer analgesics based on type and severity of pain and evaluate response within appropriate time frame 4. Implement non-pharmacological measures as appropriate and evaluate response 5. Consider cultural and social influences on pain and pain management 6. Notify LIP if interventions ineffective or patient reports new pain 7. Monitor vital signs including pulse ox, end-tidal CO2 based on pain intervention 8. Reassess pain per policy 9. Teach patient or legal technical account representative interventions for comforting Outcome: Not Progressing Note: Evaluation of progress towards goal: Patient able to rate pain on scale of 0-10. Will continue to assess pain throughout shift. Problem: Safety Goal: Patient will be injury free during hospitalization Description: INTERVENTIONS: 1. Assess patient's risk for falls and implement fall prevention plan of care per policy 2. Provide and maintain a safe environment 3. Proper use of double Identifiers 4. Medication administration using the 5 rights 5. Hand hygiene 6. Specimens are labeled at the bedside 7. Instruct patient/ patient technical account representative about use of safety devices 8. Include patient/ patient technical account representative in decisions related to safety Outcome: Progressing Note: Evaluation of progress towards goal: Pt in bed in the lowest position with 2/4 side rails up,wheels locked, and non slip socks on. Pt able to call out appropriately using call light. Appropriate ID bands on. Bedside table, call light, and belongings within reach. Will continue to monitor throughout shift. Problem: Infection Goal: Absence of infection during hospitalization Description: INTERVENTIONS 1. Assess and monitor for signs and symptoms of infection. 2. Monitor lab/diagnostic results. 3. Monitor all insertion sites i.e., indwelling lines, tubes and drains. 4. Monitor endotracheal (as able) and nasal secretions for changes in amount and color. 5. Administer medications as ordered. 6. Instruct and encourage patient and family to use good hand hygiene technique. 7. Identify and instruct patient/patient technical account representative in use of appropriate isolation precautionsfor identified infection/symptoms. 8. Provide and discuss with patient/patient technical account representative on educational MDRO sheet. 9. Encourage and monitor nutritional status daily and consult dish network installer if indicated. 10. Implement neutropenic guidelines as needed. Outcome: Progressing Note: Evaluation of progress towards goal: Pt afebrile. Will continue to monitor Problem: Knowledge Deficit Goal: Patient/patient technical account representative demonstrates understanding of disease process, treatment plan,medications, and discharge instructions Description: INTERVENTIONS 1. Complete learning assessment and assess knowledge base 2. Provide teaching at level of understanding 3. Provide teaching via preferred learning method(s) Outcome: Progressing Note: Evaluation of progress towards goal: Pt verbalizes understanding of daily plan of care. Will continue to educate as questions arise and care plan changes. Problem: Discharge Planning Goal: Discharge to post-acute care, other facility, or home with appropriate resources Description: Patient's goal is: INTERVENTIONS 1. Conduct assessment to determine patient/family and health care team treatment goals, and need for post-acute services based on payer coverage, community resources, and patient preferences, and barriers to discharge 2. Coordinate with Social work, Care Navigation, and Utilization Review to arrange appropriate level of services according to patient's needs based on patient preference and payer coverage in collaboration with the physician and health care team 3. Address psychosocial, clinical, and financial barriers to discharge as identified in assessment in conjunction with the patient/family and health care team 4. Consult appropriate ancillary services (i.e.. PT/OT/ST, etc) as needed 5. Communicate with and update the patient/family, physician, and health care team regarding progress on the discharge plan 6. Identify discharge learning needs (meds, wound care, etc). 7. Arrange for needed discharge transportation as appropriate Outcome: Progressing Note: Evaluation of progress towards goal: Discharge planning is in progress at this time Problem: Urinary Incontinence Goal: Perineal skin integrity is maintained or improved Description: INTERVENTIONS 1. Assess genitourinary system, perineal skin, labs (urinalysis), and history of incontinence to include past management, aggravating, and alleviating factors 2. Keep skin clean and dry 3. Apply skin protectant 4. Develop skin care regimen 5. Provide privacy when changing patients incontinence device to maintain their dignity 6. Consider placing an indwelling catheter 7. Collaborate with interdisciplinary team and initiate plans and interventions as needed Outcome: Progressing Note: Evaluation of progress towards goal: Perineal skin integrity is maintained at this time. Willcontinue to monitor. Problem: Moderate - High Risk Fall Score Description: Cruz Fall Score of =/> 25 or indicated by [facility] Assessment Goal: Patient should be free from fall Description: Interventions: 1. [place] to environment 2. Hourly rounds addressing the 4 P's (Pain, Positioning, Possessions, Potty) 3. Clear area of hazards (spills, clutter, electrical cords, unnecessary equipment) 4. Place equipment (bed & TV controls, call light, phone, urinal) within reach 5. Encourage patient to wear glasses and hearing aides as appropriate 6. Maintain bed in lowest position 7. Lock wheels on bed/wheelchair 8. Provide adequate lighting, including night light 9. Assess need for additional bedding, food/fluids, pain med's prior to sleep/routinely 10. Provide gripper slippers or personal non-skid footwear 11. Teach patient and patient technical account representative to maintain environment for safety and engage in all aspects of fall prevention program 12. Remind patient to call for help before getting out of bed 13. Initiate bed/chair/exit alarms supportive devices as appropriate, (chair wedge, no-skid floor mat, raised edge mattress, hip protectors) 14. Locate patient bed assignment for optimal visualization 15. Evaluate and identify Safe Patient Handling Equipment needs 16. Provide supervision when out of bed or chair 17. Utilize gait belt as needed to assist with ambulation 18. Place adaptive equipment (cane, walker) within reach 19. Request patient technical account representative bring adaptive equipment/mobility aids from home or obtain and provide as needed 20. Consult pharmacy regarding effects of med's affecting mobility, cognition, and alternatives 21. Obtain physician order for PT if risk factors associated with mobility are present 22. Obtain physician order for OT as appropriate 23. Utilize diversional activities 24. Educate patient and patient technical account representative how to maintain a safe environment during visitationtimes (notify nurse prior to leaving bedside) 25. Consider appropriateness of medical or non-coroner/medical examiner 26. Set up voiding schedule as appropriate (every 2 hours) Outcome: Progressing Note: Evaluation of progress towards goal: Patient should be free from fall * Plan of Care - Toño Wilson RCP - 04/21/2025 8:59 PM EDT Problem: Inadequate Breathing Pattern Goal: Patient will achieve/maintain normal respiratory rate/effort Description: Patient's goal is: INTERVENTIONS 1. Assess and monitor respiratory rate, effort, breathing pattern, and oxygenation 2. Monitor patient for restlessness, anxiety, air hunger 3. Assess physical activity tolerance 4. Assess tobacco history; ask, advise, and refer as appropriate 5. Collaborate with interdisciplinary team and initiate plans/interventions as needed Outcome: Progressing Note: Evaluation of progress towards goal: Reviewed. Patient remains stable on nasal cannula, will continue to monitor. Respiratory Therapy Clinical Practice Guidelines Consult Vital Signs Pulse: 61 Heart Rate Source: Monitor Resp: 18 SpO2: 99 % O2 Device: Nasal cannula O2 Flow Rate (L/min): 4 L/min Respiratory Assessment Assessment Type: Post-treatment Level of Consciousness: Alert Respiratory Pattern: Regular Chest Assessment: Chest expansion symmetrical Bilateral Breath Sounds: Diminished Patient Active Problem List Diagnosis Aneurysm of thoracic aorta Aortic valve stenosis Cancer of trachea, bronchus, and lung ([facility] Carotid artery stenosis Chronic diastolic heart failure ([facility] [place] COPD with acute exacerbation ([facility] [place] Coronary arteriosclerosis Depression HLD (hyperlipidemia) HTN (hypertension) Insomnia Left ventricular thrombus Lung nodules Smoker Systolic heart failure ([facility] [place]) Dyspnea on exertion Hemothorax on left Last Chest XRAY: Reviewed Pulmonary History: Reviewed RT Reassessment Due In: 12 hours Bronchodilator Respiratory Rate Level 1: Less than 20 Dyspnea Level 1: No SOB Breath Sounds Level 2: Diminished and/or faint wheezes Respiratory History Level 4: Diagnosis of pulmonary disease such as: Asthma/reactive airway disease; Bronchitis/Emphysema (COPD) ; Cystic Fibrosis ; Severe Laryngitis/Tracheitis/Bronchiectasis ; Microbial infection ; Anesthesia related bronchospasms Oxygen to Keep SpO2 Greater Than Or Equal To 92% Level 2: 1-3 LPM 25%-35% or NIV 41 - 50% Peak Flow ([facility] Only) Home Therapy: Not Applicable Patients Current Level & Intervention: 3 Four times daily and Q4 PRN as needed for wheezing * PT/OT/JEEP DRIVER - KOBY [place] - 04/21/2025 11:20 AM EDT Occupational Therapy Treatment Discharge Recommendations for Safe Patient Transition OT Discharge Disposition Recommendation: Post acute - moderate OT Post Acute Moderate Rehab Needs: Recommend moderate intensity rehab, Tolerate 1-2 hrs of therapy3-5 days/wk, Subacute or chronic functional impairment Slab Lifting Supervisor Support for-: Mobility Deficits, ADL Deficits, Cognitive Impairments Therapy Plan 6 Clicks: Daily Activity Putting on and taking off regular lower body clothing?: A little Bathing (including washing, rinsing, drying)?: A lot Toileting, which includes using toilet, bedpan or urinal?: A lot Putting on and taking off regular upper body clothing?: A little Taking care of personal grooming such as brushing teeth?: A little Eating meals?: None Scoring Daily Activity Raw Score: 17 CMS G Code Modifier: CK 04/21/25 1120 UE ROM UE ROM exercises performed? Yes Scapular retraction RUE Shoulder flexion/extension RUE Shoulder horizontal abduction/adduction RUE Elbow flexion/extension B UE Digital flexion/extension B UE Other AROM Repetitions 15 OT Treatment/Interventions: ADL retraining, Functional transfer training, Endurance training, Patient/family training, Equipment eval/education, Balance, Bed mobility, Compensatory technique education, Gait training, Functional activities OT Frequency: 4-5days/week OT Duration: length of stay Assessment Patient Assessment Therapy Problem List: Decreased balance, Decreased cognition, Decreased endurance, Decreased mobility, Decreased LE ROM, Decreased LE strength Patient Response to Treatment: Progressing toward goals Mood/Affect: Impulsive Rehab Prognosis: Good, With continued OT status post acute discharge Visit RN Communication: Yes Medical Record Reviewed: Yes OT Type of Visit: Treatment Precautions Activity: Early Moblity Pass; ok to tx per Kade Equipment: Gait Belt; L UE Sling; Bed/chair alarm Weight Bearing Status: NWB LUE Telemetry/Tombstone Erector Helper: Yes Other: HIGH FALL RISK; L Rib Fx 6-8 Pain Assessment Pain Assessment: No/denies pain ADL / IADL Hand Dominance: Right Where Assessed: Chair Grooming Assistance: Contact guard assist Grooming Deficit: Verbal cueing, Supervision/safety, Increased time to complete, Wash/dry hands, Wash/dry face, Brushing hair Other: pt completed grooming tasks while sitting unsupported in chair. pt educated on positioning of L arm sling. Home Management - IADL Other: pt completed grooming tasks while sitting unsupported in chair. pt educated on positioning of L arm sling. Hearing / Speech / Vision Hearing: Within Functional Limits Speech: Within Functional Limits Current Vision: Wears glasses for distance only Cognition Orientation Level: Oriented to person, Oriented to situation Other: Pt hyperverboseand requried cues to attend to task at hand. Reminders for maintaining L UE NWB. Bed Mobility Other: NT secondary to pt in recliner upon arrival and exit of tx. Transfers Sit to Stand: Min assist, Verbal cues, Visual cues, Tactile cues Stand to Sit: Min assist, Verbal cues, Visual cues, Tactile cues Other: Pt complets STS with cues for hand placement/tech with fair follow through. No use of AD. Gait Gait Assistance: Min assist, Verbal cues, Visual cues, Tactile cues Assistive Device: None Gait Distance: 40'x2 Limiting Factors to Gait: Fatigue, Weakness, Decreased safety, Cognition/difficulty following directions 2 Turns: Yes Other: Pt is NWB L UE, completes functional mobility without AD, requires cues to maintain L UE NWB, for upright posture and safety with min assist for multiple LOB. Balance Sitting Balance: Static: Good Sitting Balance: Dynamic: Good Standing Balance: Static: Fair Standing Balance: Dynamic: Fair (-) Other: Pt requried min assist for several LOB. Activity Tolerance Endurance: Tolerates 30 minutes activity with rest breaks Other: good tolerance with rest breaks throughout. Plan Occupational Therapy Care Plan Occupational Therapy Care Plan (Active) Template: OT - Occupational Therapy Problem: Activity Tolerance Dates: Start: 04/15/25 Disciplines: OT Goal: Tolerate > 30 minutes of activity WITHOUT rest breaks Dates: Start: 04/15/25 Expected End: 05/08/25 Description: Goal Description: Disciplines: OT Outcomes Date/Time User Outcome 04/21/25 1612 KOBY Hills Progressing 04/16/25 1413 MARGOTH George/Binh Progressing Goal Note filed on 04/21/25 1612 by KOBY Hills Evaluation of progress towards goal: Problem: Bathing LB Dates: Start: 04/15/25 Disciplines: OT Goal: Patient will perform bathing LB with Set-Up Dates: Start: 04/15/25 Expected End: 05/08/25 Description: Goal Description: Disciplines: OT Problem: Bathing UB Dates: Start: 04/15/25 Disciplines: OT Goal: Patient will perform bathing UB with Set-Up Dates: Start: 04/15/25 Expected End: 05/08/25 Description: Goal Description: Disciplines: OT Problem: Bed Mobility Dates: Start: 04/15/25 Disciplines: OT Goal: Patient will perform bed mobility with Modified [facility] Dates: Start: 04/15/25 Expected End: 05/08/25 Description: Goal Description: Disciplines: OT Problem: Dressing LB Dates: Start: 04/15/25 Disciplines: OT Goal: Patient will perform dressing LB Independently Dates: Start: 04/15/25 Expected End: 05/08/25 Description: Goal Description: Disciplines: OT Problem: Dressing UB Dates: Start: 04/15/25 Disciplines: OT Goal: Patient will perform dressing UB Independently Dates: Start: 04/15/25 Expected End: 05/08/25 Description: Goal Description: Disciplines: OT Problem: Functional Mobility Dates: Start: 04/15/25 Disciplines: OT Goal: Patient will perform functional mobility Independently Dates: Start: 04/15/25 Expected End: 05/08/25 Description: Goal Description: Disciplines: OT Outcomes Date/Time User Outcome 04/21/25 1612 KONSTANTIN Hills/Binh Progressing 04/16/25 1413 Harikahelena Brownr, OTR/L Progressing Goal Note filed on 04/21/25 161 by KONSTANTIN Hills/Binh Evaluation of progress towards goal: Problem: Grooming Dates: Start: 04/15/25 Disciplines: OT Goal: Patient will perform grooming Independently Dates: Start: 04/15/25 Expected End: 05/08/25 Description: Goal Description: Disciplines: OT Outcomes Date/Time User Outcome 04/21/25 1612 KONSTANTIN Hills/Binh Progressing 04/16/25 1413 Harika Chavarriaomar, OTR/L Progressing Goal Note filed on 04/21/25 1612 by KONSTANTIN Hills/Binh Evaluation of progress towards goal: Problem: Sitting Balance Dates: Start: 04/15/25 Disciplines: OT Goal: Improve balance to normal Dates: Start: 04/15/25 Expected End: 05/08/25 Description: Demo normal sitting balance 100% of the time. Disciplines: OT Outcomes Date/Time User Outcome 04/21/25 1612 KONSTANTIN Hills/Binh Progressing 04/16/25 1413 Harika Yu, OTR/L Progressing Goal Note filed on 04/21/251611 by KOBY Hills Evaluation of progress towards goal: Problem: Standing Balance Dates: Start: 04/15/25 Disciplines: OT Goal: Improve balance to good Dates: Start: 04/15/25 Expected End: 05/08/25 Description: Demo good standing balance w/ out use of AD for 8-10 minutes Disciplines: OT Outcomes Date/Time User Outcome 04/21/25 1612 KOBY Hills Progressing 04/16/25 1413 Harika Yu, OTR/L Progressing Goal Note filed on 04/21/251611 by KOBY Hills Evaluation of progress towards goal: Problem: Toilet Transfers Dates: Start: 04/15/25 Disciplines: OT Goal: Patient will perform toilet transfers Independently Dates: Start: 04/15/25 Expected End: 05/08/25 Description: Goal Description: Disciplines: OT Problem: Toileting Dates: Start: 04/15/25 Disciplines: OT Goal: Patient will perform toileting Independently Dates: Start: 04/15/25 Expected End: 05/08/25 Description: Goal Description: Disciplines: OT Problem: Transfers Dates: Start: 04/15/25 Disciplines: OT Goal: Patient will perform transfers Independently Dates: Start: 04/15/25 Expected End: 05/08/25 Description: Goal Description: Disciplines: OT Outcomes Date/Time User Outcome 04/21/251611 KOBY Hills Progressing 04/16/25 1413 Harika Yu OTR/L Progressing Goal Note filed on 04/21/25 161 by KOBY Hills Evaluation of progress towards goal: Occupational Therapy Care Plan (Resolved) There are no resolved problems. Principal Problem: Hemothorax on left Active Problems: COPD with acute exacerbation ([facility]) Cosigned by MARGOTH Rios/Binh at 04/22/2025 6:27 AM EDT Associated attestation - Alejandra Shields, MARIER/Binh - 04/22/2025 6:27 AM EDT I have reviewed and agree with this note and education documentation for this visit. * Plan of Care - Denver Meza RCP - 04/21/2025 11:09 AM EDT Respiratory Therapy Clinical Practice Guidelines Consult Clinical Practice Guidelines Ordered Consult Assessment: Broncho-pulmonary hygiene, Bronchodilator Broncho-pulmonary Hygiene Indications: To prevent/reverse atelectasis, Retained secretions or difficulty with clearance Broncho-pulmonary Hygiene Total: 3 Bronchodilator Indications: Bronchospasm/wheezing, Diseases requiring aerosolized medication Bronchodilator Total: 2 Vital Signs Pulse: 84 Resp: 14 SpO2: 98 % O2 Device: Nasal cannula Respiratory Assessment Assessment Type: Post-treatment Level of Consciousness: Alert Respiratory Pattern: Regular Chest Assessment: Chest expansion symmetrical Bilateral Breath Sounds: Diminished Cough Cough: Occasional, Dry Patient Active Problem List Diagnosis Aneurysm of thoracic aorta Aortic valve stenosis Cancer of trachea, bronchus, and lung ([facility]) Carotid artery stenosis Chronic diastolic heart failure ([facility]) COPD with acute exacerbation ([facility]) Coronary arteriosclerosis Depression HLD (hyperlipidemia) HTN (hypertension) Insomnia Left ventricular thrombus Lung nodules Smoker Systolic heart failure ([facility]) Dyspnea on exertion Hemothorax on left Last Chest XRAY: Reviewed Pulmonary History: COPD RT Reassessment Due In: 12 hours Bronchodilator Respiratory Rate Level 1: Less than 20 Dyspnea Level 3: Dyspnea on exertion or periodic stated SOB Breath Sounds Level 1: Clear Respiratory History Level 4: Diagnosis of pulmonary disease such as: Asthma/reactive airway disease; Bronchitis/Emphysema (COPD) ; Cystic Fibrosis ; Severe Laryngitis/Tracheitis/Bronchiectasis ; Microbial infection ; Anesthesia related bronchospasms Oxygen to Keep SpO2 Greater Than Or Equal To 92% Level 3: 4-6 LPM or >35% - <50% ; NIV 51 - 65% Peak Flow ([facility] Only) Home Therapy: Not Applicable Patients Current Level & Intervention: 2 Three times daily and Q4 PRN for wheezing Broncho-Pulmonary Hygiene Level of Movement Level 2: Actively changing positions - requires assistance Breath Sounds Level 2: Diminished and/or coarse rhonchi Cough Level 1: Strong, effective Chest X-Ray Level 1: Possible signs of consolidation and/or atelectasis or clear ; No CXR available Sputum Production Level 1: None or small amount of thin or watery secretions with effective cough History & Physical Level 1: None or New onset of bronchitis or existing chronic pulmonary condition. (not in an exacerbation) SpO2 to O2 Need Level 3: >92% on NC @ 4-6lpm Patients Current Level & Intervention: 2 BPH technique per algorithm TID and PRN Evaluation of progress towards goal: On low flow nasal cannula now.Ambulating with assistance and oxygen. Tolerating metaneb treatents. Diminished breath sounds. Problem: Inadequate Breathing Pattern Goal: Patient will achieve/maintain normal respiratory rate/effort Description: Patient's goal is: INTERVENTIONS 1. Assess and monitor respiratory rate, effort, breathing pattern, and oxygenation 2. Monitor patient for restlessness, anxiety, air hunger 3. Assess physical activity tolerance 4. Assess tobacco history; ask, advise, and refer as appropriate 5. Collaborate with interdisciplinary team and initiate plans/interventions as needed Outcome: Progressing * PT/OT/JEEP DRIVER - Rachel Rhodes PTA - 04/21/2025 10:38 AM EDT Physical Therapy Treatment Discharge Recommendations for Safe Patient Transition PT Discharge Disposition Recommendation: Post acute - moderate Current Impairments Informing Therapy Recommendation: Ambulation status/safety, Fall risk, Cognition, ADL status, Communication needs, Endurance level Slab Lifting Supervisor Support for-: Mobility Deficits, ADL Deficits, Cognitive Impairments 6 Clicks: Basic Mobility Turning from your back to your side while in a flat bed without using bed rails?: A little Moving from lying on your back to sitting on side of flat bed without using bed rails?: A little Moving to and from bed to a chair (including w/c)?: A little Standing up from a chair using your arms (e.g. w/c or bedside chair)?: A little To walk in hospital room?: A little Climbing 3-5 steps with a railing?: A lot Scoring 6 Clicks: Basic Mobility Raw Score: 17 CMS G Code Modifier: CK PT Treatment/Interventions: Functional transfer training, UE strengthening/ROM, Endurance training,Patient/family training, Cognitive reorientation, Balance, Bed mobility, Gait training, Functional activities PT Frequency: 5-6days/week PT Duration: LOS Assessment Patient Assessment Therapy Problem List: Decreased balance, Decreased cognition, Decreased endurance, Decreased mobility, Decreased LE ROM, Decreased LE strength Patient Response to Treatment: Progressing toward goals Mood/Affect: Impulsive Rehab Prognosis: Good, With continued PT status post acute discharge Visit RN Communication: Yes Medical Record Reviewed: Yes PT Type of Visit: Treatment Precautions Activity: Early Moblity Pass; ok to tx per Kade Equipment: Gait Belt; L UE Sling; Bed/chair alarm Weight Bearing Status: NWB LUE Telemetry/[place] Erector Helper: Yes Oxygen Order : [facility] Guidelines Oxygen Used: 5L02 Other: HIGH FALL RISK; L Rib Fx 6-8 Subjective Physical Therapy Comments: Pt sitting in recliner upon arrival for tx and agreeable to tx. Pain Assessment Pain Assessment: No/denies pain Vitals: 04/21/25 0925 04/21/25 0935 04/21/25 1000 04/21/25 1100 BP: 106/67 110/70 Pulse: 86 84 78 88 Resp: 23 14 25 21 Temp: 36.8 C (98.2 F) TempSrc: Oral SpO2: (!) 83% 98% 94% (!) 89% Weight: Height: Past Surgical History: Procedure Laterality Date BRONCHOSCOPY ALVEOLAR LAVAGE N/A 12/06/2022 Performed by Richard Lentz DO at [facility] COLONOSCOPY CORONARY ARTERY BYPASS GRAFT Patient Active Problem List Diagnosis Aneurysm of thoracic aorta Aortic valve stenosis Cancer of trachea, bronchus, and lung (CMS-HCC) Carotid artery stenosis Chronic diastolic heart failure ([facility]-HCC) COPD with acute exacerbation ([facility]) Coronary arteriosclerosis Depression HLD (hyperlipidemia) HTN (hypertension) Insomnia Left ventricular thrombus Lung nodules Smoker Systolic heart failure ([facility]-HCC) Dyspnea on exertion Hemothorax on left Cognition Orientation Level: Oriented to person, Oriented to situation Other: Pt requried cues for attention to task at hand Bed Mobility Other: NT secondary to pt in recliner upon arrival for tx. Transfers Sit to Stand: Min assist, Verbal cues, Visual cues, Tactile cues Stand to Sit: Min assist, Verbal cues, Visual cues, Tactile cues Other: Pt education on benefits from safe functional trasnfers/moblity with NWB L UE. Gait Base of Support: Narrow Pattern: Decreased dagoberto, Antalgic gait, R Decreased heel strike, L Decreased heel strike, Forward trunk Gait Assistance: Min assist, Verbal cues, Visual cues, Tactile cues Assistive Device: None Gait Distance: 40'x2 Limiting Factors to Gait: Fatigue, Weakness, Decreased safety, Cognition/difficulty following directions 2 Turns: Yes Other: Pt education on benefits from safe functional moblity with 5L02 and NWB L UE with sling withcues for upright posture; decreased dagoberto with straight/turns with cues for safety with min assist for multiple LOB. Balance Sitting Balance: Static: Good Sitting Balance: Dynamic: Good Standing Balance: Static: Fair Standing Balance: Dynamic: Fair (-) Other: Pt requried min assist for maintaining COG within ARI. Activity Tolerance Endurance: Tolerates 30 minutes activity with rest breaks Other: Pt education on benefits from seated ther ex to increase strength. Pt requried cues for attention to task at hand. 04/21/25 1038 LE Seated LE seated exercises performed? Yes Ankle pumps 20 Long arc quads 20 Seated marching 20 Hip abduction/adduction 20 Other Pt education on seated ther ex to increase strength Repetitions 20 Pt positioned for comfort with call light/tray table within reach. Pt education on use of call light for assistance. ALARM ON Pt education on use of call light every day to ask staff to assist patient out of bed for meals andsitting up in recliner. This will increase circulation, promote increased lung function, To allow pressure relief, increase strength and to decrease delirium in Acute Care setting. Pt education on use of incentive spirometer to decrease risk of pneumonia with inactivity due to hospitalization 10x per hour with needing review. Alternated between UE/LE exercises for energy conservation-rest between. Pt required verbal/visual cues for sequencing, technique and pacing and to work within pain free range with exercise. Communicated with Nursing on summary of tx; pt location; safest way to transfer pt use of Gait Beltwith NWB L UE within sling. Plan Physical Therapy Care Plan Physical Therapy Care Plan (Active) Template: PT - Physical Therapy Problem: Activity Tolerance Dates: Start: 04/15/25 Disciplines: PT Goal: Tolerate > 30 minutes of activity WITH rest breaks Dates: Start: 04/15/25 Expected End: 05/16/25 Description: Goal Description: Disciplines: PT Outcomes Date/Time User Outcome 04/21/25 1123 Rachel Rhodes, UTILIZATION MANAGEMENT NURSE Progressing 04/16/25 1156 Marco Roach, UTILIZATION MANAGEMENT NURSE Progressing Problem: Gait Dates: Start: 04/15/25 Disciplines: PT Goal: Patient will perform gait Independently Dates: Start: 04/15/25 Expected End: 05/16/25 Description: 300' wit LRAD Disciplines: PT Outcomes Date/Time User Outcome 04/21/25 1123 Rachel Rhodes, UTILIZATION MANAGEMENT NURSE Progressing 04/16/25 1156 Marco Roach, UTILIZATION MANAGEMENT NURSE Progressing Problem: Stairs/Curb Dates: Start: 04/15/25 Disciplines: PT Goal: Patient will perform stairs/curb with Modified [facility] Dates: Start: 04/15/25 Expected End: 05/16/25 Description: 4 steps with single rail as needed Disciplines: PT Outcomes Date/Time User Outcome 04/21/25 1123 Rachel Rhodes UTILIZATION MANAGEMENT NURSE Progressing Problem: Standing Balance Dates: Start: 04/15/25 Disciplines: PT Goal: Improve balance to good Dates: Start: 04/15/25 Expected End: 05/16/25 Description: With LRAD Disciplines: PT Outcomes Date/Time User Outcome 04/21/25 1123 Rachel Rhodes, UTILIZATION MANAGEMENT NURSE Progressing 04/16/25 1156 Marco Roach, UTILIZATION MANAGEMENT NURSE Progressing Problem: Transfers Dates: Start: 04/15/25 Disciplines: PT Goal: Patient will perform transfers Independently Dates: Start: 04/15/25 Expected End: 05/16/25 Description: With LRAD Disciplines: PT Outcomes Date/Time User Outcome 04/21/25 1123 Rachel Rhodes UTILIZATION MANAGEMENT NURSE Progressing 04/16/25 1156 Marco Roach, UTILIZATION MANAGEMENT NURSE Progressing Physical Therapy Care Plan (Resolved) There are no resolved problems. Principal Problem: Hemothorax on left Active Problems: COPD with acute exacerbation ([facility]) Cosigned by Prachi Bernabe, PT at 04/21/2025 1:05 PM EDT Associated attestation - Prachi Bernabe, PT - 04/21/2025 1:05 PM EDT I have reviewed and agree with this note and education documentation for this visit. * Plan of Care - Deejay Iraheta RN - 04/21/2025 1:01 AM EDT Problem: Pain Goal: Patient goal is pain score less than 4, able to rest, and participant in treatment plan as appropriate Description: INTERVENTIONS: 1. Encourage patient or legal technical account representative to report early pain and ask for pain medicine when needed 2. Assess pain using appropriate pain scale and include the scale used when documenting 3. Administer analgesics based on type and severity of pain and evaluate response within appropriate time frame 4. Implement non-pharmacological measures as appropriate and evaluate response 5. Consider cultural and social influences on pain and pain management 6. Notify LIP if interventions ineffective or patient reports new pain 7. Monitor vital signs including pulse ox, end-tidal CO2 based on pain intervention 8. Reassess pain per policy 9. Teach patient or legal technical account representative interventions for comforting Outcome: Progressing Note: Evaluation of progress towards goal: Pt has adequate pain control. Prns work appropriately. Able to advocate for self. * JEEP DRIVER Procedure Note - Geeta Hillman CCC-JEEP DRIVER - 04/20/2025 1:46 PM EDT Speech Therapy Videofluoroscopic Swallow Study Evaluation and Treatment Note Discharge Recommendations for Safe Patient Transition JEEP DRIVER Therapy Recommendations: Continue ST services Current Impairments Informing Therapy Recommendation: Swallowing OK for Regular diet with Thin liquids with SMALL SIPS, one at a time and meds in applesauce. Will follow along for now. Recommendations Diet Level: Regular Liquid Level: Level 0 Thin Compensatory Strategies: Small sips/bites, One sip/bite at a time, Follow aspiration precautions Supervision/Positioning: Patient at 90 degress for all PO intake (including medication), Supervise all PO intake, Patient to remain upright 15 minutes after meals, Cue patient to use compensatory strategies Medications: In applesauce/puree Referrals: Dysphagia therapy Impressions Oral Phase: Minimal Pharyngeal Phase: Mild Functional Oral Intake Scale: Total PO intake. No restrictions Pt educated on purpose of exam, contrast administration and procedural techniques prior to initiation of exam. Pt educated on diet recommendations, plan of care and encouraged to use safety strategies in order to maintain safe PO intake following exam. Plan Frequency: 1-2days/week Duration: ongoing ST services Treatments/Modalities: Haseeb maneuver, Safety strategies Need for skilled Speech Language Pathology Services to address deficits in feeding/swallowing due to a status decline resulting from weakness, SOB. Pt is a 75yo male with h/o CAD, COPD, depression, DM2, Lung cancer, HLD, HTN and ex smoker who presented to [facility] ED 04/14 after a fall. Pt found to have hemothorax and multiple L rib fxs. Pt was transferred to [facility] for trauma workup. Pt also has h/o R lobectomy from lung cancer. Pt has been on and off high flow nasal cannula throughout stay. Speech consulted to assess swallow function. Prognosis Services: Skilled JEEP DRIVER services to address above deficits Prognosis/Potential: Good Considerations: Age, Previous level of function Assessment Baseline Assessment Prior BSSE/VFSS: na Additional Testing Results: Chest X-Ray, Computed Tomography Setting Prior to Admission: Home Associated Problems: Shortness of breath Respiratory Status: O2 via nasal cannula Behavior/Cognition: Alert, Cooperative Dentition: Adequate Patient Positioning: Upright in chair Baseline Vocal Quality: Weak, Wet/gurgly Ability to Control Secretions: Yes Allergies Marked As Reviewed: Complete Consistencies Tested Views: Lateral position Level 0 Thin: Spoon, Cup, Straw Level 4 Pureed: Spoon Level 6 Soft & Bite-Sized: Spoon Regular Tested: Bite Modified Barium Swallow Impairment Profile (MBSImP) Oral Impairment: Yes Component 1: Lip Closure: escape from interlabial space or lateral junction, no extension beyond miranda border Component 2: Tongue Control During Bolus Hold: posterior escape of greater than half of bolus Component 3: Bolus Preparation/Mastication: timely and efficient chewing and mashing Component 4: Bolus Transport/Lingual Motion: brisk tongue motion Component 5: Oral Residue: trace residue lining oral structures Component 6: Initiation of Pharyngeal Swallow: bolus head at posterior laryngeal surface of epiglottis Pharyngeal Impairment: Yes Component 7: Soft Palate Elevation: no bolus between soft palate/posterior pharyngeal wall Component 8: Laryngeal Elevation: partial superior movement of thyroid cartilage/partial approximation of arytenoids to epiglottic petiole Component 9: Anterior Hyoid Excursion: partial anterior movement Component 10: Epiglottic Movement: partial inversion Component 11: Laryngeal Vestibular Closure - Height of the Swallow: incomplete, narrow column of contrast/air in laryngeal vestibule Component 12: Pharyngeal Stripping Wave: present - complete Component 13: Pharyngeal Contraction (A/P view only): could not be determined due to logistical reasons not related to physiologic impairment Component 14: Pharyngoesophageal Segment Opening: partial distension/partial duration, partial obstruction of flow Component 15: Tongue Base Retraction: trace column of contrast/air between tongue base and posterior pharyngeal wall Component 16: Pharyngeal Residue: trace residue within or on pharyngeal structures MBSImP Overall Impression Scores Oral Impairment Total: 8 Pharyngeal Impairment Total: 7 Penetration/Aspiration Scale Penetration/Aspiration Scale Performed: Yes Level 0 Thin: Contrast did not enter the airway, Contrast entered the airway, remained above the vocal folds, and was ejected from the airway, Contrast entered the airway, contacted the vocal folds, and was ejected from the airway Level 4 Pureed: Contrast did not enter the airway Level 6 Soft & Bite-Sized: Contrast did not enter the airway Regular: Contrast did not enter the airway Trialed Compensatory Strategies Strategies Utilized: Small sips/bites, Controlled bolus Effective: Yes Pain Assessment Pain Assessment: No/denies pain Plan Diagnosis Code Swallowing: R13.12 Dysphagia, oropharyngeal phase Speech Therapy Care Plan Speech Therapy Care Plan (Active) Template: ST - Dysphagia Problem: Swallowing Dates: Start: 04/20/25 Disciplines: JEEP DRIVER Goal: LTG: Patient will maintain adequate nutrition/ hydration with optimum safety and efficiency of swallowing function of oral intake without overt signs/symptoms of aspiration for the highest appropriate diet level Dates: Start: 04/20/25 Expected End: 05/24/25 Disciplines: JEEP DRIVER Goal: STG: Patient will complete safety strategies with minimal assistance during PO intake 90% of the time Dates: Start: 04/20/25 Expected End: 05/24/25 Disciplines: JEEP DRIVER Speech Therapy Care Plan (Resolved) There are no resolved problems. Principal Problem: Hemothorax on left Active Problems: COPD with acute exacerbation ([facility]) * PT/OT/JEEP DRIVER - TONY Perez - 04/20/2025 8:18 AM EDT Speech Therapy Bedside Swallow/ Feeding Evaluation Discharge Recommendations for Safe Patient Transition JEEP DRIVER Therapy Recommendations: Continue ST services Current Impairments Informing Therapy Recommendation: Swallowing Pt coughing following water intake. Will plan for video swallow to further assess. Recommendations Medications: In applesauce/puree Referrals: [facility], Dysphagia therapy Impressions Oral Dysphagia: Mild Pharyngeal Dysphagia Suspected: Yes Plan Frequency: 2-3days/week Duration: ongoing ST services Need for skilled Speech Language Pathology Services to address deficits in feeding/swallowing due to a status decline resulting from weakness, SOB. Pt is a 75yo male with h/o CAD, COPD, depression, DM2, Lung cancer, HLD, HTN and ex smoker who presented to [facility] ED 04/14 after a fall. Pt found to have hemothorax and multiple L rib fxs. Pt was transferred to [facility] for trauma workup. Pt also has h/o R lobectomy from lung cancer. Pt has been on and off high flow nasal cannula throughout stay. Speech consulted to assess swallow function. Prognosis Services: Skilled JEEP DRIVER services to address above deficits Prognosis/Potential: Good Considerations: Age, Previous level of function Assessment Baseline Assessment Prior BSSE/VFSS: na Additional Testing Results: Chest X-Ray, Computed Tomography Setting Prior to Admission: Home Associated Problems: Shortness of breath Respiratory Status: O2 via nasal cannula Behavior/Cognition: Alert, Cooperative Dentition: Adequate Patient Positioning: Upright in chair Baseline Vocal Quality: Weak, Wet/gurgly Ability to Control Secretions: Yes Allergies Marked As Reviewed: Complete Oral/Motor Overall Oral/Motor Status: Exceptions to Within Functional Limits Labial ROM: Reduced Labial Strength: Reduced Labial Coordination: Reduced Lingual ROM: Reduced Lingual Strength: Reduced Lingual Coordination: Reduced Mandible: Impaired Facial Strength: Reduced Facial Coordination: Reduced Vocal Quality: Exceptions to WFL Wet: Mild Weak: Mild Vocal Intensity: Mildly decreased Intelligibility: Intelligibility reduced Intelligibility Rating: Mild Dentition: Adequate Consistencies Assessed: Yes Level 0 Thin Presentation: Straw Oral: Suspect premature spillage Pharyngeal: Delayed swallow initiation, Decreased laryngeal elevation, Wet/gurgly vocal quality, Cough- immediate Level 4 Pureed Presentation: Spoon Oral: Within Functional Limits Pharyngeal: Within Functional Limits Regular Presentation: Self feed Oral: Decreased bolus formation Pharyngeal: Within Functional Limits Cranial Nerve Screening CN V (trigeminal): Reduced mandibular movements CN VII (facial): Other (Comment) CN X (vagus): Other (Comment) CN XII (hypoglossal): Reduced tongue movements Pain Assessment Pain Assessment: No/denies pain Plan Diagnosis Code Swallowing: R13.12 Dysphagia, oropharyngeal phase Speech Therapy Care Plan Speech Therapy Care Plan (Active) Template: ST - Dysphagia Problem: Swallowing Dates: Start: 04/20/25 Disciplines: JEEP DRIVER Goal: LTG: Patient will maintain adequate nutrition/ hydration with optimum safety and efficiency of swallowing function of oral intake without overt signs/symptoms of aspiration for the highest appropriate diet level Dates: Start: 04/20/25 Expected End: 05/24/25 Disciplines: JEEP DRIVER Goal: STG: Patient will complete safety strategies with minimal assistance during PO intake 90% of the time Dates: Start: 04/20/25 Expected End: 05/24/25 Disciplines: JEEP DRIVER Speech Therapy Care Plan (Resolved) There are no resolved problems. Principal Problem: Hemothorax on left Active Problems: COPD with acute exacerbation ([facility]) * Plan of Care - Macey Paez RN - 04/19/2025 8:02 PM EDT Problem: Pain Goal: Patient goal is pain score less than 4, able to rest, and participant in treatment plan as appropriate Description: INTERVENTIONS: 1. Encourage patient or legal technical account representative to report early pain and ask for pain medicine when needed 2. Assess pain using appropriate pain scale and include the scale used when documenting 3. Administer analgesics based on type and severity of pain and evaluate response within appropriate time frame 4. Implement non-pharmacological measures as appropriate and evaluate response 5. Consider cultural and social influences on pain and pain management 6. Notify LIP if interventions ineffective or patient reports new pain 7. Monitor vital signs including pulse ox, end-tidal CO2 based on pain intervention 8. Reassess pain per policy 9. Teach patient or legal technical account representative interventions for comforting Outcome: Progressing Note: Evaluation of progress towards goal: Patient continued on PRN and scheduled pain regimen. Able to rest and participate in treatment plan. Problem: Safety Goal: Patient will be injury free during hospitalization Description: INTERVENTIONS: 1. Assess patient's risk for falls and implement fall prevention plan of care per policy 2. Provide and maintain a safe environment 3. Proper use of double Identifiers 4. Medication administration using the 5 rights 5. Hand hygiene 6. Specimens are labeled at the bedside 7. Instruct patient/ patient technical account representative about use of safety devices 8. Include patient/ patient technical account representative in decisions related to safety Outcome: Progressing Note: Evaluation of progress towards goal: Patient remains free of injury. Safety measures in place. Problem: Infection Goal: Absence of infection during hospitalization Description: INTERVENTIONS 1. Assess and monitor for signs and symptoms of infection. 2. Monitor lab/diagnostic results. 3. Monitor all insertion sites i.e., indwelling lines, tubes and drains. 4. Monitor endotracheal (as able) and nasal secretions for changes in amount and color. 5. Administer medications as ordered. 6. Instruct and encourage patient and family to use good hand hygiene technique. 7. Identify and instruct patient/patient technical account representative in use of appropriate isolation precautionsfor identified infection/symptoms. 8. Provide and discuss with patient/patient technical account representative on educational MDRO sheet. 9. Encourage and monitor nutritional status daily and consult dish network installer if indicated. 10. Implement neutropenic guidelines as needed. Outcome: Progressing Note: Evaluation of progress towards goal: Patient continued on current antibioitc regimen. * PT/OT/JEEP DRIVER - Hawa Zambrano PTA - 04/19/2025 12:37 PM EDT Physical Therapy PT Type of Visit: Medical deferral (Failed early mobility) Reason For Medical Deferral: RN deems inappropriate (d/t agitation) RN Deems Inappropriate: Failed MOVES safety screen Cosigned by Roger Correa PT at 04/19/2025 1:45 PM EDT Associated attestation - Roger Correa PT - 04/19/2025 1:45 PM EDT I have reviewed and agree with this note and education documentation for this visit. * PT/OT/JEEP DRIVER - KOBY Varela - 04/19/2025 10:55 AM EDT Occupational Therapy OT Type of Visit: (P) Medical deferral Reason For Medical Deferral: (P) RN deems inappropriate RN Deems Inappropriate: (P) Failed MOVES safety screen (Pt failed early mobility safety screen. Viral, pt recieved meds for agitation. Will continue POC as appropriate.) Cosigned by MARGOTH Wagner/Binh at 04/19/2025 3:57 PM EDT Associated attestation - Mariah Rushing OTR/Binh - 04/19/2025 3:57 PM EDT I have reviewed and agree with this note and education documentation for this visit. * PT/OT/JEEP DRIVER - TONY Perez - 04/19/2025 9:30 AM EDT Speech Therapy JEEP DRIVER Type of Visit: Medical deferral Reasons for Medical Deferral: ST services deferred by medical team Orders received for swallow evaluation. Discussed with RN. Pt not appropriate for PO at the moment.He is not awake enough after receiving medications for agitation. Will follow along and evaluate asappropriate. * Plan of Care - Macey Paez RN - 04/19/2025 4:03 AM EDT Problem: Pain Goal: Patient goal is pain score less than 4, able to rest, and participant in treatment plan as appropriate Description: INTERVENTIONS: 1. Encourage patient or legal technical account representative to report early pain and ask for pain medicine when needed 2. Assess pain using appropriate pain scale and include the scale used when documenting 3. Administer analgesics based on type and severity of pain and evaluate response within appropriate time frame 4. Implement non-pharmacological measures as appropriate and evaluate response 5. Consider cultural and social influences on pain and pain management 6. Notify LIP if interventions ineffective or patient reports new pain 7. Monitor vital signs including pulse ox, end-tidal CO2 based on pain intervention 8. Reassess pain per policy 9. Teach patient or legal technical account representative interventions for comforting Outcome: Progressing Note: Evaluation of progress towards goal: Patient continued on PRN and scheduled pain control. Able to rest and and participate in treatment plan. Problem: Safety Goal: Patient will be injury free during hospitalization Description: INTERVENTIONS: 1. Assess patient's risk for falls and implement fall prevention plan of care per policy 2. Provide and maintain a safe environment 3. Proper use of double Identifiers 4. Medication administration using the 5 rights 5. Hand hygiene 6. Specimens are labeled at the bedside 7. Instruct patient/ patient technical account representative about use of safety devices 8. Include patient/ patient technical account representative in decisions related to safety Outcome: Progressing Note: Evaluation of progress towards goal: Patient remains free of injury. Safety measures in place. Problem: Infection Goal: Absence of infection during hospitalization Description: INTERVENTIONS 1. Assess and monitor for signs and symptoms of infection. 2. Monitor lab/diagnostic results. 3. Monitor all insertion sites i.e., indwelling lines, tubes and drains. 4. Monitor endotracheal (as able) and nasal secretions for changes in amount and color. 5. Administer medications as ordered. 6. Instruct and encourage patient and family to use good hand hygiene technique. 7. Identify and instruct patient/patient technical account representative in use of appropriate isolation precautionsfor identified infection/symptoms. 8. Provide and discuss with patient/patient technical account representative on educational MDRO sheet. 9. Encourage and monitor nutritional status daily and consult dish network installer if indicated. 10. Implement neutropenic guidelines as needed. Outcome: Progressing Note: Evaluation of progress towards goal: Patient shows no signs/symptoms of infection. * Plan of Care - Sathish Jung [employer]ISHING [employer] - 04/18/2025 10:00 PM EDT Problem: Inadequate Breathing Pattern Goal: Patient will achieve/maintain normal respiratory rate/effort Description: Patient's goal is: INTERVENTIONS 1. Assess and monitor respiratory rate, effort, breathing pattern, and oxygenation 2. Monitor patient for restlessness, anxiety, air hunger 3. Assess physical activity tolerance 4. Assess tobacco history; ask, advise, and refer as appropriate 5. Collaborate with interdisciplinary team and initiate plans/interventions as needed Outcome: Progressing Note: Respiratory Therapy Clinical Practice Guidelines Consult Vital Signs Pulse: 71 Heart Rate Source: Monitor Resp: 22 SpO2: 96 % O2 Device: High flow nasal cannula O2 Flow Rate (L/min): 40 L/min FiO2 (%): (S) 55 % Patient Position: Semi-fowlers Respiratory Assessment Assessment Type: Subsequent assessment, Pre-treatment Level of Consciousness: Alert Respiratory Pattern: Regular Chest Assessment: Chest expansion symmetrical Bilateral Breath Sounds: Diminished, Expiratory wheezes Patient Active Problem List Diagnosis Aneurysm of thoracic aorta Aortic valve stenosis Cancer of trachea, bronchus, and lung ([facility]) Carotid artery stenosis Chronic diastolic heart failure ([facility]) COPD with acute exacerbation ([facility]) Coronary arteriosclerosis Depression HLD (hyperlipidemia) HTN (hypertension) Insomnia Left ventricular thrombus Lung nodules Smoker Systolic heart failure ([facility]) Dyspnea on exertion Hemothorax on left Last Chest XRAY: Reviewed Pulmonary History: See above RT Reassessment Due In: 12 hours Bronchodilator Respiratory Rate Home Therapy: Patient baseline Dyspnea Level 2: Periodic SOB Breath Sounds Level 3: Expiratory wheezing or cough Respiratory History Level 5: Diagnosis of pulmonary disease such as: Asthma/reactive airway disease; Bronchitis/Emphysema (COPD) ; Cystic Fibrosis ; Severe Laryngitis/Tracheitis/Bronchiectasis ; Microbial infection ; Anesthesia related bronchospasms ; Severe exacerbation Oxygen to Keep SpO2 Greater Than Or Equal To 92% Level 4: >50% - <100% ; NIV 51 - 65% Peak Flow ([facility] Only) Home Therapy: Not Applicable Patients Current Level & Intervention: 4 Every 4 hours and PRN for wheezing Broncho-Pulmonary Hygiene Level of Movement Level 1: Actively changing positions without assistance Breath Sounds Level 2: Diminished and/or coarse rhonchi Cough Level 3: Ineffective, weak, frequent Chest X-Ray Level 2: Mild consolidation and/or atelectasis ; No CXR available Sputum Production Level 2: Able to produce small to moderate amount of moderately thick secretions History & Physical Level 3: COPD with mucus plugging or retained secretions SpO2 to O2 Need Level 4: >90% on NC >6 lpm or mask >40% or mechanical vent required Patients Current Level & Intervention: 2 BPH technique per algorithm TID and PRN Evaluation of progress towards goal: Pt receiving Metaneb TID, with duoneb txs Q4H while awake. Is tolerating well, will wean when HFNC is able to be weaned. * Discharge Planning Note - Cora Valladares RN - 04/18/2025 4:14 PM EDT Images from the original note were not included. Ongoing Assessment for Discharge Needs Reviewed discharge milestones and patient needs related to discharge plan. Current estimated discharge date of Data Unavailable has been reviewed by treatment team. Ongoing Assessment for Discharge Needs Flowsheet Row Most Recent Value Referral To Community Referrals / Resources Provided Denies needs Services Requested Patient expects to be discharged to: home vs SNF Does the patient wish to have family/friend/caregiver involved in their discharge planning? No, thepatient does not wish to have family/friend/caregiver involved in their discharge planning Discharge Disposition -- [SNF vs home, waiting on pt decision] Patient choice offered Yes List Provided Yes [facility] List Provided [facility] Planning Complete Discharge Milestones Yes Call Center Supervisor met with patient at bedside to discuss discharge plan. Call Center Supervisor presented LTACH option and explained level of care and services appropriate at discharge. Pt still declining SNF and LTACH. Pt is adamant he will only discharge home. Pt has SNF and LTACH lists at bedside. Will need follow up for further education and reinforcement of safe discharge plan. Pt currently on HFNC. CN will continue to follow. - Cora Valladares RN 04/18/25 4:16 PM * Plan of Care - Jeannette Finley RCP - 04/18/2025 9:00 AM EDT Problem: Inadequate Breathing Pattern Goal: Patient will achieve/maintain normal respiratory rate/effort Description: Patient's goal is: INTERVENTIONS 1. Assess and monitor respiratory rate, effort, breathing pattern, and oxygenation 2. Monitor patient for restlessness, anxiety, air hunger 3. Assess physical activity tolerance 4. Assess tobacco history; ask, advise, and refer as appropriate 5. Collaborate with interdisciplinary team and initiate plans/interventions as needed Outcome: Progressing Note: Evaluation of progress towards goal: Weaning HF as tolerated, maintaining bronchopulmonary hygiene. No distress at this time. Continuing to monitor. Respiratory Therapy Clinical Practice Guidelines Consult Vital Signs Pulse: 79 Heart Rate Source: Monitor Resp: 17 SpO2: 95 % O2 Device: High flow nasal cannula O2 Flow Rate (L/min): 55 L/min FiO2 (%): 65 % Patient Position: Sitting Respiratory Assessment Assessment Type: Pre-treatment Level of Consciousness: Alert Respiratory Pattern: Regular Chest Assessment: Chest expansion symmetrical Bilateral Breath Sounds: Diminished, Expiratory wheezes Patient Active Problem List Diagnosis Aneurysm of thoracic aorta Aortic valve stenosis Cancer of trachea, bronchus, and lung ([facility]) Carotid artery stenosis Chronic diastolic heart failure ([facility] [place] [place]) COPD with acute exacerbation ([facility] [place] [place]) Coronary arteriosclerosis Depression HLD (hyperlipidemia) HTN (hypertension) Insomnia Left ventricular thrombus Lung nodules Smoker Systolic heart failure ([facility] [place] [place]) Dyspnea on exertion Hemothorax on left Last Chest XRAY: Reviewed Pulmonary History: reviewed RT Reassessment Due In: 12 hours Bronchodilator Respiratory Rate Level 1: Less than 20 Dyspnea Level 1: No SOB Breath Sounds Level 2: Diminished and/or faint wheezes Respiratory History Level 4: Diagnosis of pulmonary disease such as: Asthma/reactive airway disease; Bronchitis/Emphysema (COPD) ; Cystic Fibrosis ; Severe Laryngitis/Tracheitis/Bronchiectasis ; Microbial infection ; Anesthesia related bronchospasms Oxygen to Keep SpO2 Greater Than Or Equal To 92% Level 4: >50% - <100% ; NIV 51 - 65% Peak Flow ([facility] Only) Home Therapy: Not Applicable Patients Current Level & Intervention: 4 Every 4 hours and PRN for wheezing Broncho-Pulmonary Hygiene Level of Movement Level 2: Actively changing positions - requires assistance Breath Sounds Level 2: Diminished and/or coarse rhonchi Cough Level 1: Strong, effective Chest X-Ray Level 2: Mild consolidation and/or atelectasis ; No CXR available Sputum Production Level 2: Able to produce small to moderate amount of moderately thick secretions History & Physical Level 1: None or New onset of bronchitis or existing chronic pulmonary condition. (not in an exacerbation) SpO2 to O2 Need Level 4: >90% on NC >6 lpm or mask >40% or mechanical vent required Patients Current Level & Intervention: 2 BPH technique per algorithm TID and PRN * Plan of Care - Terrell Rachna BALL, WALE - 04/17/2025 8:12 PM EDT Problem: Inadequate Breathing Pattern Goal: Patient will achieve/maintain normal respiratory rate/effort Description: Patient's goal is: INTERVENTIONS 1. Assess and monitor respiratory rate, effort, breathing pattern, and oxygenation 2. Monitor patient for restlessness, anxiety, air hunger 3. Assess physical activity tolerance 4. Assess tobacco history; ask, advise, and refer as appropriate 5. Collaborate with interdisciplinary team and initiate plans/interventions as needed Outcome: Progressing Note: Evaluation of progress towards goal: Patient is resting without distressRespiratory Therapy Clinical Practice Guidelines Consult Vital Signs Pulse: 76 Heart Rate Source: Monitor Resp: 19 SpO2: 94 % O2 Device: High flow nasal cannula O2 Flow Rate (L/min): 60 L/min FiO2 (%): 70 % Respiratory Assessment Assessment Type: Pre-treatment Level of Consciousness: Alert Respiratory Pattern: Regular Chest Assessment: Chest expansion symmetrical Bilateral Breath Sounds: Diminished, Expiratory wheezes Patient Active Problem List Diagnosis Aneurysm of thoracic aorta Aortic valve stenosis Cancer of trachea, bronchus, and lung ([facility] [place] [place]) Carotid artery stenosis Chronic diastolic heart failure ([facility] [place] [place]) COPD with acute exacerbation ([facility] [place] [place]) Coronary arteriosclerosis Depression HLD (hyperlipidemia) HTN (hypertension) Insomnia Left ventricular thrombus Lung nodules Smoker Systolic heart failure ([facility] [place] [place]) Dyspnea on exertion Hemothorax on left Last Chest XRAY: Reviewed Pulmonary History: COPD, Lung mass RT Reassessment Due In: 12 hours Bronchodilator Respiratory Rate Level 1: Less than 20 Dyspnea Level 2: Periodic SOB Breath Sounds Level 3: Expiratory wheezing or cough Respiratory History Level 4: Diagnosis of pulmonary disease such as: Asthma/reactive airway disease; Bronchitis/Emphysema (COPD) ; Cystic Fibrosis ; Severe Laryngitis/Tracheitis/Bronchiectasis ; Microbial infection ; Anesthesia related bronchospasms Oxygen to Keep SpO2 Greater Than Or Equal To 92% Level 4: >50% - <100% ; NIV 51 - 65% Peak Flow ([facility] Only) Home Therapy: Not Applicable Patients Current Level & Intervention: 3 Four times daily and Q4 PRN as needed for wheezing Broncho-Pulmonary Hygiene Level of Movement Level 3: Low level of mobility Breath Sounds Level 3: Bilateral or localized decreased air exchange and/or coarse rhonchi Cough Level 2: Strong, effective and/or frequent Chest X-Ray Level 2: Mild consolidation and/or atelectasis ; No CXR available Sputum Production Level 1: None or small amount of thin or watery secretions with effective cough History & Physical Level 3: COPD with mucus plugging or retained secretions SpO2 to O2 Need Level 4: >90% on NC >6 lpm or mask >40% or mechanical vent required Patients Current Level & Intervention: 3 BPH technique per algorithm QID and PRN * Plan of Care - Jeannette Finley RCP - 04/17/2025 6:03 PM EDT Problem: Inadequate Breathing Pattern Goal: Patient will achieve/maintain normal respiratory rate/effort Description: Patient's goal is: INTERVENTIONS 1. Assess and monitor respiratory rate, effort, breathing pattern, and oxygenation 2. Monitor patient for restlessness, anxiety, air hunger 3. Assess physical activity tolerance 4. Assess tobacco history; ask, advise, and refer as appropriate 5. Collaborate with interdisciplinary team and initiate plans/interventions as needed Note: Evaluation of progress towards goal: Pt remains on HFNC. No SOB or distress at this time. Continuing to monitor. Respiratory Therapy Clinical Practice Guidelines Consult Vital Signs Pulse: 91 Heart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 2-4 weeks. We did not see while inpatient (was managed by trauma)but he has a new oxygen requirement. Thanks! * Telephone Encounter - Glenna Mcgarry - 04/21/2025 10:48 AM EDT Is there anywhere to fit pt in for HDFU per LB note below? Pt sees SE in [place]. Thank you! * Telephone Encounter - Richard Lentz DO - 04/21/2025 10:48 AM EDT 8:45 am on 05/29 * Telephone Encounter - ZEESHAN Mccall - 04/21/2025 10:48 AM EDT Call Center Supervisor called patient and scheduled him for 05/29/2025 at 8:45am per SE, patient confirmed appointment time and date. documented in this encounterOur [facility]il[facility] [id number] Telephone encounter Note* Telephone Encounter - JEMMA Bender - 04/21/2025 10:48 AM EDT Please schedule in HDFU clinic in 2-4 weeks. We did not see while inpatient (was managed by trauma)but he has a new oxygen requirement. Thanks! [facility] Work Phone: [phone] Telephone encounter Note* Telephone Encounter - Glenna Mcgarry - 04/21/2025 10:48 AM EDT Is there anywhere to fit pt in for HDFU per LB note below? Pt sees SE in [place]. Thank you! [employer] [id number] Telephone encounter Note* Telephone Encounter - Richard Lentz DO - 04/21/2025 10:48 AM EDT 8:45 am on 05/29 [facility]25 Telephone encounter Note* Telephone Encounter - ZEESHAN Mccall - 04/21/2025 10:48 AM EDT Call Center Supervisor called patient and scheduled him for 05/29/2025 at 8:45am per SE, patient confirmed appointment time and date. [facility] Hospital Discharge instructions* Discharge Instructions* Serena Velasco PA-C - 04/15/2025 7:35 AM EDT ORTHOPAEDIC DISCHARGE INSTRUCTIONS Diagnosis: Left coracoid fracture Follow-Up Appointment: Dr. Robins on Future Appointments Date Time Provider Department Center 05/06/2025 12:45 PM Mac Robins MD [facility] 08/07/2025 11:45 AM Richard Lentz DO [facility] Office Location: [place] [address] RN: Margot Robins RN: Marielos Davila RN: Fadumo Marks RN: Ingrid Wilkerson RN: Thom Prasad Call 911 immediately if you experience: Chest pain, difficulty breathing, or shortness of breath. Call the office for concerns related to: calf pain, leg swelling, fever/chills, redness or drainagearound the incision sites, prolong numbness/tingling, or increased pain-that is not relieved with medications, ice and elevation. Weight-bearing instructions: Left upper extremity: maintain non weight bearing General Instructions: Boots/braces/slings: Please wear the Simple sling to the left upper extremity Exercises and range of motion: Wiggle (flex and extend) fingers/toes of affected extremity frequently with gentle range of motion. For upper extremity injuries, passively and actively make full fists with the fingers of the operative side. Use your other hand to assist with achieving full flexion & extension. Placed ice bag on affected extremity: 20 minutes on every 2-4 hours. You may not 'feel the cold' because of your dressing, but it is still beneficial to reduce the swelling Elevate the affected extremity above the heart to reduce swelling. For ankle & foot injuries concentrate on elevating your 'toes above your nose' Medications: Refer to discharge medication reconciliation form for complete discharge medication list. Vitamins/supplements It is recommended to take Calcium and Vitamin D for bone health. Please refer to the medication reconciliation form for exact doses. Pain medications Pain medicine has been prescribed for management of your pain symptoms. Please refer to the medication reconciliation form for exact doses. Prevention of blood clots Many orthopedic conditions can predispose you to blood clots. Medications for prevention of blood clots may be appropriate. If prescribed, they will be detailed on the Discharge Medication Reconciliation. documented in this encounterSelect [facility]25 Consult note* Giovani Velasco MD - 04/14/2025 5:24 AM EDT [facility] Academic Critical Care CONSULTATION Name: Doc Burns Date: 04/14/2025 Length of Stay: 0 day(s) Chief Complaint: Chief Complaint Patient presents with Fall History of Present Illness: Doc Burns is a 75 y.o. male with past medical history of CAD status post stent, COPD, diabetes, hypertension, active lung cancer not on chemotherapy, and continued tobacco use, brought in by EMS from [place] after attempting to carry an electric bike up the stairs and subsequently falling backwards. Patient states he was attempting to climb approximately 14 stairs when he lost his balance and fell backwards. He notes the electric bike landed on his chest and left side. The bike weighs approximately 100 lb. Patient denies loss of consciousness. Patient is on aspirin and clopidogrel. Upon presentation to [place], patient was found to have multiple left-sided rib fractures,small left hemothorax and pulmonary contusion, and left scapular fracture. At [place], CT brain and CT cervicalspine were negative for any acute pathology. Per EMS, patient's SpO2 was trending downward over time and was placed on 6 L O2 nasal cannula. Patient does not have an oxygen requirement at baseline. Additionally, patient has had soft blood pressures with systolic in the 90s, he was given 1 L of normal saline. EMS states that patient also received ketamine 40 mg over 30 minutes at approximately 2:00 a.m. with improvement of his pain. Presently, patient reports left shoulder pain, left chest wall pain which is exacerbated by deep inspiration, and left abdominal pain. Otherwise, patient denies headache, changes in vision, dizziness, neck pain, anterior chest pain, shortness of breath, nausea, vomiting, numbness tingling or weakness of the extremities. Patient endorses smoking 3/4 of a pack ofcigarettes per day. Otherwise denies ETOH and additional drug use. Past Medical History: Diagnosis Date CAD (coronary artery disease) CHD (coronary heart disease) Chest pain COPD (chronic obstructive pulmonary disease) ([facility]) Depression DM (diabetes mellitus) ([facility] [place] History of lung cancer HLD (hyperlipidemia) HTN (hypertension) Insomnia Lung mass Tobacco abuse Past Surgical History: Procedure Laterality Date BRONCHOSCOPY ALVEOLAR LAVAGE N/A 12/06/2022 Performed by Richard Lentz DO at [facility] COLONOSCOPY CORONARY ARTERY BYPASS GRAFT Review of Systems: (Positive Findings in Bold) Const: Fever / Chills / Weight Loss / fall Eyes: Blurry vision/ Vision Change HEENT: NICOLE / Neck Pain / Otorrhea / Rhinorrhea RESP: SOB / Cough / Wheeze CARDIAC: CP / Palpitations / Edema GI: N / V / left-sided abdominal pain / Diarrhea / Constipation : Hematuria / Discharge MS: Weakness / left lateral chest wall pain / left shoulder pain / Dec ROM Integ: Rashes / Poorly healing wounds Neuro: NICOLE / Gait imbalance / Increased confusion / Numbness / Tingling / Paralysis Psych: Depression / Anxiety / Hallucinations / Suicide (Not in a hospital admission) acetaminophen, 1,000 mg, oral, Q6H OR acetaminophen, 1,000 mg, nasogastric, Q6H fluticasone furoate-vilanteroL, 1 puff, inhalation, Daily AND umeclidinium, 1 puff, inhalation,Daily gabapentin, 300 mg, oral, Q8H KVNG ipratropium-albuteroL, 3 mL, nebulization, Q4H While awake lidocaine, 1 patch, transdermal, Daily methocarbamoL, 500 mg, oral, 4x Daily sennosides-docusate sodium, 2 tablet, oral, Nightly sodium chloride, 3 mL, intravenous, Q12H KVNG dextrose 5 % in water, 100 mL/hr sodium chloride 0.9 %, 10 mL/hr sodium chloride 0.9 %, 10 mL/hr sodium chloride 0.9 %, 10 mL/hr No Known Allergies Family History Problem Relation Age of Onset Hypertension Mother Heart disease Mother Diabetes Mother Cancer Father Heart disease Father Hypertension Father Social History Socioeconomic History Marital status: Single Tobacco Use Smoking status: Every Day Current packs/day: 1.00 Types: Cigarettes Smokeless tobacco: Never Substance and Sexual Activity Alcohol use: Not Currently Drug use: Never Sexual activity: Defer Social Drivers of Health Financial Resource Strain: Medium Risk (10/02/2023) Received from [facility] Overall Financial Resource Strain (CARDIA) Difficulty of Paying Living Expenses: Somewhat hard Food Insecurity: No Food Insecurity (04/14/2025) Hunger Screening Food Insecurity - Worry: Never True Food Insecurity - Inability: Never True Transportation Needs: Unmet Transportation Needs (10/02/2023) Received from [facility] PRAPARE - Transportation Lack of Transportation (Medical): Yes Lack of Transportation (Non-Medical): Yes Physical Activity: Inactive (10/02/2023) Received from [facility] Exercise Vital Sign Days of Exercise per Week: 0 days Minutes of Exercise per Session: 0 min Stress: Stress Concern Present (10/02/2023) Received from [facility] [place] [facility] Occup[employer] [facility] - Occupational Stress Questionnaire Feeling of Stress : Rather much Social Connections: Socially Isolated (10/02/2023) Received from [facility] Social Connection and Isolation Panel [NHANES] Frequency of Communication with Friends and Family: More than three times a week Frequency of Social Gatherings with Friends and Family: More than three times a week Attends Judaism Services: Never Active Member of Clubs or Organizations: No Attends Club or Organization Meetings: Never Marital Status: Received from [facility] Safety & Environment Housing Instability: Unknown (10/02/2023) Received from [facility] Housing Stability Vital Sign Unable to Pay for Housing in the Last Year: No Unstable Housing in the Last Year: No Heart Rate: [50-52] 50 Resp: [12-19] 19 BP: (103-109)/(53-98) 103/53 SpO2: [91 %-95 %] 95 % O2 Device: Nasal cannula O2 Flow Rate (L/min): [6 L/min] 6 L/min O2 Device: Nasal cannula General: No distress, lying comfortably in bed, alert, interactive HEENT: Atraumatic EOMI PERRL 3mm, CN II-XII: grossly intact No Malocclusion TM Clear bilaterally Battles sign Absent Nares patent Dentition intact Neck: Trachea Midline Non Tender to palpation No pain with Flex / Ext / Lat Flex / Rotation, Axial Load & distraction Chest: Significant Left lateral chest wall tenderness to minimal palpation, No Crepitus, no ecchymosis Lungs:Good air movement B, CTA B though minimally diminished in the left lower bases, No Ronchi, NoWheeze Unlabored, nasal cannula 6L NC with SpO2 93% Heart: Heart tones S1/S2, No Murmur noted Abd: Soft, No guarding, No rigidity (+) Appetite No Brusing Left abdominal tenderness and left flank tenderness to palpation Pelvis: Iliac crest-Non tender to compression Symphysis pubis- Non tender to compression Back: T Spine- non tender to palpation L Spine- non tender to palpation No wounds / ecchymosis Extremities: RUE: 5/5 strength LUE: Ear Pull Machine 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 strength intact, decreased range of motion of the left shoulder secondary to scapular fracture, pain with palpation of the left shoulder in the posterior aspect RLE: 5/5 strength LLE: 5/5 strength Pulses 2+ x 4 Intact to light touch No calf/thigh tenderness Neuro: Alert, pleasant, appropriate Oriented to person, place, time Neurovascularly intact throughout Ventilator Results from last 3 days Lab Units 04/14/25 0358 BUN mg/dL 29* CREATININE mg/dL 1.28 POTASSIUM mmol/L 5.3* CO2 mmol/L 23 CHLORIDE mmol/L 109 AST U/L 18 ALT U/L 15 ALK PHOS U/L 70 LIPASE U/L 10* Results from last 3 days Lab Units 04/14/25 0358 INR 1.0 PROTIME sec 11.1 Results from last 3 days Lab Units 04/14/25 0358 WBC x10E9/L 15.8* HEMOGLOBIN g/dL 13.2 HEMATOCRIT % 39.3 PLATELETS X10E9/L 216 MCV fL 94 MCH pg 31.4 MCHC g/dL 33.6 RDW % 13.7 EOS ABS AUTO 10*3/uL 0.0 Microbiology Results No results found for the last 168 hours. Glucose Results from last 7 days Lab Units 04/14/25 0358 GLUCOSE mg/dL 135* No intake/output data recorded. acetaminophen, 1,000 mg, oral, Q6H OR acetaminophen, 1,000 mg, nasogastric, Q6H fluticasone furoate-vilanteroL, 1 puff, inhalation, Daily AND umeclidinium, 1 puff, inhalation,Daily gabapentin, 300 mg, oral, Q8H KVNG ipratropium-albuteroL, 3 mL, nebulization, Q4H While awake lidocaine, 1 patch, transdermal, Daily methocarbamoL, 500 mg, oral, 4x Daily sennosides-docusate sodium, 2 tablet, oral, Nightly sodium chloride, 3 mL, intravenous, Q12H KVNG dextrose 5 % in water, 100 mL/hr sodium chloride 0.9 %, 10 mL/hr sodium chloride 0.9 %, 10 mL/hr sodium chloride 0.9 %, 10 mL/hr Microbiology Results No results found for the last 168 hours. Lines/Drains Peripheral IV 04/14/25 Anterior;Left;Proximal Forearm (Active) Peripheral IV 04/14/25 Right Antecubital (Active) Peripheral IV 04/14/25 Left Antecubital (Active) Line Status Blood return noted;Flushed;Connections checked/tightened;Tubing changed 04/14/25400 Site Assessment Clean;Dry;Intact 04/14/25400 Dressing Type Transparent 04/14/25400 Dressing Status Clean;Dry;Intact 04/14/25400 Dressing Intervention Dressing changed 04/14/25400 Dressing Change Due (Non-Gauze) 04/21/25 04/14/25400 ACTIVE PROBLEM LIST: Trauma, fall Left 6th - 8th rib fxs Left small hemothorax Left pulmonary contusion Left scapular fracture Tobacco use disorder Hypertension Hyperkalemia ASSESSMENT/PLAN: Doc Burns is a 75 y.o. male with past medical history of CAD status post stent, COPD, diabetes, hypertension, active lung cancer not on chemotherapy, and continued tobacco use, brought in by EMS from [place] after attempting to carry an electric bike up the stairs and subsequently falling backwards. No LOC. Patient takes aspirin and clopidogrel. 1. Neuro Hospital Meds: Sedation: None Analgesia: Tylenol, Lidocaine patch, Robaxin, Gabapentin, Dilaudid, Oxycodone Other: None Home Meds: Buspar, Sertraline PMH: Insomnia PSH: None 2. Pulmonary Breathing Support: Supplemental O2 Settings: 6L SpO2: 93% Continuous pulse oximetry Hospital Meds: Duoneb, Breo-Ellipta, Umeclidinum Home Meds: Albuterol inhaler and nebulizer, Fluticasone PMH: COPD, Lung cancer PSH: None Left rib fractures 6-8, hemothorax, pulmonary contusion -repeat chest x-ray -incentive spirometer -pain management -presently on 6 L nasal cannula with SpO2 93% -continue to monitor vitals and oxygen demand, patient is not on oxygen at home 3. Cardiovascular Hemodynamics: Bradycardic, regular rate Normotensive Pressors: None Goal MAP >65 Continuous cardiac monitoring Hospital Meds: None Home Meds: Norvasc, ASA, Lipitor, Lasix, metoprolol, Entresto, Plavix PMH: CAD, HLD, HTN PSH: None Code Status: Full 4. GI Diet: Regular Bowel Function: Monitor Hospital Meds: Zofran, Senna, Glycolax Home Meds: None PMH: T2DM PSH: None Tobacco use -patient endorses smoking 3/4 of a pack per day -patient was counseled on smoking cessation -patient was offered nicotine patch during hospital stay, declined at this time 5. Renal/Genitourinary Lab Results Component Value Date SODIUM 141 04/14/2025 SODIUM 142 12/05/2022 CL 109 04/14/2025 CL 107 12/05/2022 K 5.3 (H) 04/14/2025 K 3.7 12/05/2022 CO2 23 04/14/2025 CO2 25 12/05/2022 Lab Results Component Value Date BUN 29 (H) 04/14/2025 BUN 16 12/05/2022 CREATININE 1.28 04/14/2025 CREATININE 1.03 12/05/2022 CALCIUM 8.6 04/14/2025 CALCIUM 8.8 12/05/2022 Will replace electrolytes PRN per ICU protocol Fluid Balance: IV Fluids: None UOP/24 H: Pending Net Fluid/24H: No intake or output data in the 24 hours ending 04/14/25523 Net Fluid Since Admission: Net IO Since Admission: No IO data has been entered for this period [04/14/25523] Strict monitoring of intake and output Hospital Meds: None Home Meds: None PMH: None PSH: None 6. Heme Labs: Lab Results Component Value Date HGB 13.2 04/14/2025 HGB 13.3 12/05/2022 PLT 216 04/14/2025 PLT 281 12/05/2022 Lab Results Component Value Date INR 1.0 04/14/2025 INR 1.1 12/05/2022 Type and Screen: A+ Blood Products Administered: None Will continue to monitor hemoglobin and transfuse PRN 7. ID: Tmax/24H: No data recorded. Labs: Lab Results Component Value Date WBC 15.8 (H) 04/14/2025 WBC 9.2 12/05/2022 Micro: None Hospital Meds: Antibiotics: None 8. Endocrine Lab Results Component Value Date GLU 141 (H) 04/14/2025 GLU 135 (H) 04/14/2025 GLU 105 (H) 12/05/2022 Blood Glucose: 141 Goal Blood Glucose <180 mg/dL Hospital Meds: None Home Meds: None PMH: None PSH: None 9. Musculoskeletal PMH: None PSH: None PT/OT when able Left scapular fracture -x-ray left shoulder - displaced fx of coracoid -consult ortho: Recommend nonoperative treatment, applying ice to affected areas, with weight-bearing restrictions 10. Prophylaxis Respiratory: Not indicated GI: Not indicated DVT: SCD Cuffs 11. Lines PIV x3 Dispo: Critical, remain in SICU Giovani Velasco MD SICU Resident, PGY-3 Cosigned by Donta Troncoso MD at 04/14/2025 5:29 PM EDT Associated attestation - Donta Troncoso MD - 04/14/2025 5:29 PM EDT Attending Attestation: I saw the patient. I participated and was physically present during the critical/vieyra portions of the service. I was directly involved in the management and treatment plan of the patient. I reviewed the resident's note. Additional Notes/Findings: Patient admitted to the SICU for aggressive pulmonary hygiene and multimodal pain management * Mac Robins MD - 04/14/2025 3:33 AM EDTAssociated Order(s): IP CONSULT TO ORTHOPEDIC SURGERY Images from the original note were not included. Chief complaint: left shoulder pain; fall HPI: Doc Burns is a 75 y.o. male presents to [facility] c/o left shoulder after fall. Patientstates that last night around 7 pm he was carrying his E bike up the steps when he lost his balancecausing him to fall. Denies hitting head or any LOC. States that he is on Plavix. Patient is right hand dominant. Patient was initially seen at [place] ED where work up revealed left scapula fracture and left sided rib fractures. Patient was transferred to [facility] ED for further evaluation and management. Our orthopedics team as notified upon arrival. Patient admits to pain to left shoulder. Patientdenies pain to left elbow, wrist and hand. Patient denies pain to right upper and bilateral lower extremities. Patient denies numbness or paresthesia to left upper extremity. Patient has no orthopedic history. Patient has no other complaints at this time. Date of injury was 04/13. Pain is described as Sharp, localized to his left shoulder. He does have assciated injuries. Patient has left sided rib fractures, small left hemothorax, and left pulmonary contusion. He is not having any numbness or tingling. Pain is improved with rest and analgesics; and worsened by movement, activity, and dependent positioning Past Medical History: Diagnosis Date CAD (coronary artery disease) CHD (coronary heart disease) Chest pain COPD (chronic obstructive pulmonary disease) ([facility] [place] Depression DM (diabetes mellitus) ([facility] [place] History of lung cancer HLD (hyperlipidemia) HTN (hypertension) Insomnia Lung mass Tobacco abuse Past Surgical History: Procedure Laterality Date BRONCHOSCOPY ALVEOLAR LAVAGE N/A 12/06/2022 Performed by Richard Lentz DO at [facility] COLONOSCOPY CORONARY ARTERY BYPASS GRAFT Social History Tobacco Use Smoking status: Every Day Current packs/day: 1.00 Types: Cigarettes Smokeless tobacco: Never Substance Use Topics Alcohol use: Not Currently Drug use: Never Family History Problem Relation Age of Onset Hypertension Mother Heart disease Mother Diabetes Mother Cancer Father Heart disease Father Hypertension Father Allergies as of 04/14/2025 (No Known Allergies) Current Facility-Administered Medications: fentaNYL (SUBLIMAZE) injection 50 mcg, 50 mcg, intravenous, Once, Migdalia Rosas DO Current Outpatient Medications: albuterol (ACCUNEB) 1.25 mg/3 mL nebulizer solution, Inhale 3 mL (1.25 mg total) every 6 (six) hours as needed., Disp: , Rfl: albuterol (PROVENTIL HFA;VENTOLIN HFA) 90 mcg/actuation inhaler, Inhale 2 puffs every 4 (four) hours as needed., Disp: , Rfl: amLODIPine (NORVASC) 10 mg tablet, Take 1 tablet (10 mg total) by mouth in the morning., Disp: , Rfl: aspirin 81 mg, Take 1 tablet (81 mg total) by mouth daily., Disp: , Rfl: atorvastatin (LIPITOR) 40 mg tablet, Take 1 tablet (40 mg total) by mouth nightly., Disp: , Rfl: busPIRone (BUSPAR) 30 mg tablet, Take 1 tablet (30 mg total) by mouth in the morning and at bedtime., Disp: , Rfl: clopidogreL (PLAVIX) 75 mg tablet, Take 1 tablet (75 mg total) by mouth in the evening., Disp: , Rfl: dllqooizgji-azrhkpawe-hlgyphqi (TRELEGY ELLIPTA) 200-62.5-25 mcg blister with device, INHALE 1 PUFFBY MOUTH DAILY, Disp: 60 each, Rfl: 11 furosemide (LASIX) 40 mg tablet, Take 1 tablet (40 mg total) by mouth daily., Disp: , Rfl: metoprolol succinate XL (TOPROL XL) 50 mg 24 hr tablet, Take 1 tablet (50 mg total) by mouth in theevening., Disp: , Rfl: nitroglycerin (NITROSTAT) 0.4 MG SL tablet, DISSOLVE 1 TABLET UNDER THE TONGUE NEEDED FOR CHEST PAIN- MAY REPEAT EVERY 5 MINUTES IF NEEDED ( MAX 3 DOSES.- IF NO RELIEF CALL 911), Disp: , Rfl: potassium chloride (KLOR-CON M 20) 20 MEQ CR tablet, Take 1 tablet (20 mEq total) by mouth in the morning., Disp: , Rfl: sacubitriL-valsartan (ENTRESTO) 97-103 mg tablet, Take 1 tablet by mouth in the morning and at bedtime., Disp: , Rfl: sertraline (ZOLOFT) 50 mg tablet, Take 1 tablet (50 mg total) by mouth in the morning., Disp: , Rfl: REVIEW OF SYSTEMS: MSK: positive for left shoulder pain, Neuro: Negative for numbness or tingling, All other ROS negative (10 systems reviewed) PHYSICAL EXAM: Vitals: There were no vitals taken for this visit. General: Well-nourished, Well-developed and Age appropriate LOC: awake, alert, and oriented Orientation: oriented to person, place, time, and recent events Psych: Pleasant and Co[place] Station: Lying supine on hospital bed HEENT: normocephalic, atraumatic head, neck, & facies, no ecchymosis or abrasions, midline trachea Resp: no respiratory distress, acyanotic, normal RR, breathing easily, nonlabored, no use of accessory muscles Musculoskeletal: left Upper Extremity: Observation: No obvious gross deformity noted LUE. +TTP to left shoulder. Skin: Skin intact without open fx, lesions, cuts, or abrasions. No palpable gross step offs or crepitus. Palpation: Non-tender to superior scapular spine, medial or lateral glenohumeral joint, clavicle, humeral shaft, elbow, forearm, wrist, or hand. ROM: Shoulder: Limited AROM and PROM due to pain Elbow: AROM 0 to 120 flexion, AROM full extension Wrist: AROM neutral to full flexion, AROM neutral to full extension Hand: full AROM 1-5 digits with flexion/extension, full AROM 1-5 digits with abduction/adduction Neurovascular: 2+ palpable radial and ulnar pulses. Fingers pink and warm with cap refill <2 seconds. Full sensation to light touch radial/ulnar/median/axillary nerve innervations left hand. Compartments: Biceps/triceps/dorsal and volar forearm compartments soft and compressible. IMAGING: I personally viewed X-ray of left shoulder, left clavicle, chest - Cursory exam reveals comminuted left scapula fracture extending to coracoid process. No other acute osseous abnormalities noted. I personally viewed CT of chest - Cursory exam reveals comminuted fracture of the scapula involvingthe coracoid process. No other acute osseous abnormalities noted Imaging: No results found. LABS: Lab Results Component Value Date WBC 9.2 12/05/2022 HGB 13.3 12/05/2022 HCT 39.7 12/05/2022 MCV 91 12/05/2022 PLT 281 12/05/2022 Lab Results Component Value Date GLU 105 (H) 12/05/2022 CALCIUM 8.8 12/05/2022 K 3.7 12/05/2022 CO2 25 12/05/2022 BUN 16 12/05/2022 CREATININE 1.03 12/05/2022 No results found for: VITD25 Lab Results Component Value Date INR 1.1 12/05/2022 PROTIME 12.8 12/05/2022 DIAGNOSIS: Doc Burns is a 75 y.o. male with closed left scapula fracture involving the coracoid process s/p fall on Plavix ASSESSMENT/PLAN: 1. Patient d/w Dr. Robins. 2. Patient to remain NWB left upper extremity at all times. 3. Ice and elevation of affected extremity at all times. 4. N/V checks - per protocol 5. Pain control - per primary 6. DVT Prophylaxis - per primary 7. Sling LUE. Further recommendations to follow once imaging reviewed by attending. All questions and concerns addressed at this time. Remainder of care per primary team. 8. Dr. Robins to see CINTHYA DONNELLY PA-C [facility] Pager: [phone] Cinthya Donnelly PA-C 04/14/25 8224 ORTHOPAEDIC SURGERY ATTENDING NOTE I, Mac Robins MD, personally performed the face to face diagnostic evaluation on this patient. My findings are as follows: THE PATIENT SEEMS COMFORTABLE AT REST. HE IS SURROUNDED BY FAMILY MEMBERS. HE HAS SOME SWELLING AND PAIN ABOUT HIS LEFT SHOULDER. THE SOFT TISSUES ARE INTACT. HE IS MOVING HIS LEFT HAND AND FINGERS WELL. THE PATIENT HAS A COMMINUTED FRACTURE OF HIS OF LEFT CORACOID PROCESS. I PLAN TO TREAT THIS NON OPERATIVELY. HE CAN BE AND A SIMPLE SLING FOR COMFORT. I WOULD ENCOURAGE RANGE OF MOTION EXERCISE OF HIS ELBOW AND PENDULUM EXERCISES WHEN HE IS COMFORTABLE. THE PATIENT IS FROM THE [place]. I CAN SEE HIM BACK FOR A FOLLOW UP IN A COUPLE OF WEEKS FOR HIS SHOULDER. MAC ROBINS MD documented [facility] History and physical note* Tavo Tolliver DO - 04/14/2025 3:58 AM EDT Images from the original note were not included. Trauma Surgery History & Physical Examination /Consultation Note Patient: Doc Burns Date of : 1950 Estimated time of injury: 23:00 LOC: No Transport: EMS from [place] Trauma level: Trauma Consult Work related: No History of Present Illness Doc Burns is an 75 y.o. White or male with past medical history of CAD status post stent, COPD, diabetes, hypertension, active lung cancer not on chemotherapy, and continued tobacco use, brought in by EMS from [place] after attempting to carry an electric bike up the stairs and subsequently falling backwards. Patient states he was attempting to climb approximately 14 stairs when he lost his balance and fell backwards. He notes the electric bike landed on his chest and left side. The bike weighs approximately 100 lb. Patient denies loss of consciousness. Patient is on aspirin and clopidogrel. Upon presentation to [place], patient was found to have multiple left-sided rib fra ctures,small left hemothorax and pulmonary contusion, and left scapular fracture. At [place], CT brain and CT cervical spine were negative for any acute pathology. Per EMS, patient's SpO2 was trending downward over time and was placed on 6 L O2 nasal cannula. Patient does not have an oxygen requirement at baseline. Additionally, patient has had soft blood pressures with systolic in the 90s, he was given 1 L of normal saline. EMS states that patient also received ketamine 40 mg over 30 minutes at approximately 2:00 a.m. with improvement of his pain. Presently, patient reports left shoulder pain, left chest wall pain which is exacerbated by deep inspiration, and left abdominal pain. Otherwise, patient denies headache, changes in vision, dizziness, neck pain, anterior chest pain, shortness of breath, nausea, vomiting, numbness tingling or weakness of the extremities. Patient endorses smoking 3/4 of a pack of cigarettes per day. Otherwise denies ETOH and additional drug use. Past Medical History Past Medical History: Diagnosis Date CAD (coronary artery disease) CHD (coronary heart disease) Chest pain COPD (chronic obstructive pulmonary disease) ([facility] [place] Depression DM (diabetes mellitus) ([facility] [place] History of lung cancer HLD (hyperlipidemia) HTN (hypertension) Insomnia Lung mass Tobacco abuse Trauma Past Surgical History Past Surgical History: Procedure Laterality Date BRONCHOSCOPY ALVEOLAR LAVAGE N/A 12/06/2022 Performed by Richard Lentz DO at [facility] COLONOSCOPY CORONARY ARTERY BYPASS GRAFT Travel Screening Question Response Have you been in contact with someone who was sick? No / Unsure Do you have any of the following new or worsening symptoms? None of these Have you traveled internationally or domestically in the last month? No Travel History Travel since 03/14/25 No documented travel since 03/14/25 amily Historyamily History Family History Family History Problem Relation Age of Onset Hypertension Mother Heart disease Mother Diabetes Mother Cancer Father Heart disease Father Hypertension Father Review of Systems Review of Systems (Positive Findings in Bold) Const: Fever / Chills / Weight Loss / fall Eyes: Blurry vision/ Vision Change HEENT: NICOLE / Neck Pain / Otorrhea / Rhinorrhea RESP: SOB / Cough / Wheeze CARDIAC: CP / Palpitations / Edema GI: N / V / left-sided abdominal pain / Diarrhea / Constipation : Hematuria / Discharge MS: Weakness / left lateral chest wall pain / left shoulder pain / Dec ROM Integ: Rashes / Poorly healing wounds Neuro: NICOLE / Gait imbalance / Increased confusion / Numbness / Tingling / Paralysis Psych: Depression / Anxiety / Hallucinations / Suicide Allergies No Known Allergies Home Meds Prior to Admission medications Medication Sig Start Date End Date Taking? Authorizing Provider albuterol (ACCUNEB) 1.25 mg/3 mL nebulizer solution Inhale 3 mL (1.25 mg total) every 6 (six) hoursas needed. 10/29/21 Not In System Ref Prov albuterol (PROVENTIL HFA;VENTOLIN HFA) 90 mcg/actuation inhaler Inhale 2 puffs every 4 (four) hoursas needed. Not In System Ref Prov amLODIPine (NORVASC) 10 mg tablet Take 1 tablet (10 mg total) by mouth in the morning. Not In System Ref Prov aspirin 81 mg Take 1 tablet (81 mg total) by mouth daily. Not In System Ref Prov atorvastatin (LIPITOR) 40 mg tablet Take 1 tablet (40 mg total) by mouth nightly. 05/11/22 Not In System Ref Prov busPIRone (BUSPAR) 30 mg tablet Take 1 tablet (30 mg total) by mouth in the morning and at bedtime.Not In System Ref Prov clopidogreL (PLAVIX) 75 mg tablet Take 1 tablet (75 mg total) by mouth in the evening. Not In System Ref Prov nizmhegdznt-iyswgyrgc-hoejjdpp (TRELEGY ELLIPTA) 200-62.5-25 mcg blister with device INHALE 1 PUFF BY MOUTH DAILY 09/13/24 Richard Lentz, furosemide (LASIX) 40 mg tablet Take 1 tablet (40 mg total) by mouth daily. Not In System Ref Prov metoprolol succinate XL (TOPROL XL) 50 mg 24 hr tablet Take 1 tablet (50 mg total) by mouth in the evening. Not In System Ref Prov nitroglycerin (NITROSTAT) 0.4 MG SL tablet DISSOLVE 1 TABLET UNDER THE TONGUE NEEDED FOR CHEST PAIN- MAY REPEAT EVERY 5 MINUTES IF NEEDED ( MAX 3 DOSES.- IF NO RELIEF CALL 911) Not In System Ref Prov potassium chloride (KLOR-CON M 20) 20 MEQ CR tablet Take 1 tablet (20 mEq total) by mouth in the morning. 10/25/21 Not In System Ref Prov sacubitriL-valsartan (ENTRESTO) 97-103 mg tablet Take 1 tablet by mouth in the morning and at bedtime. Not In System Ref Prov sertraline (ZOLOFT) 50 mg tablet Take 1 tablet (50 mg total) by mouth in the morning. Not In SystemRef Prov Immunizatons There is no immunization history on file for this patient. Last Tetanus: Over 10 years ago Social History Social History Socioeconomic History Marital status: Single Spouse name: Not on file Number of children: Not on file Years of education: Not on file Highest education level: Not on file Occupational History Not on file Tobacco Use Smoking status: Every Day Current packs/day: 1.00 Types: Cigarettes Smokeless tobacco: Never Vaping Use Vaping status: Not on file Substance and Sexual Activity Alcohol use: Not Currently Drug use: Never Sexual activity: Defer Other Topics Concern Not on file Social History Narrative Not on file Social Drivers of Health Financial Resource Strain: Medium Risk (10/02/2023) Received from [facility] Overall Financial Resource Strain (CARDIA) Difficulty of Paying Living Expenses: Somewhat hard Food Insecurity: No Food Insecurity (04/14/2025) Hunger Screening Food Insecurity - Worry: Never True Food Insecurity - Inability: Never True Transportation Needs: Unmet Transportation Needs (10/02/2023) Received from [facility] PRAPARE - Transportation Lack of Transportation (Medical): Yes Lack of Transportation (Non-Medical): Yes Physical Activity: Inactive (10/02/2023) Received from [facility] Exercise Vital Sign Days of Exercise per Week: 0 days Minutes of Exercise per Session: 0 min Stress: Stress Concern Present (10/02/2023) Received from [facility] [place] [facility] Occup[employer] - Occupational Stress Questionnaire Feeling of Stress : Rather much Social Connections: Socially Isolated (10/02/2023) Received from [facility] Social Connection and Isolation Panel [NHANES] Frequency of Communication with Friends and Family: More than three times a week Frequency of Social Gatherings with Friends and Family: More than three times a week Attends Judaism Services: Never Active Member of Clubs or Organizations: No Attends Club or Organization Meetings: Never Marital Status: Interpersonal Safety: Unknown (10/26/2023) Received from [facility] [place] [facility] Environment Fear of Current or Ex-Partner: Not on file Emotionally Abused: Not on file Physically Abused: Not on file Sexually Abused: Not on file Physically or Sexually Abused: Not on file Housing Instability: Unknown (10/02/2023) Received from [facility] Housing Stability Vital Sign Unable to Pay for Housing in the Last Year: No Number of Places Lived in the Last Year: Not on file Unstable Housing in the Last Year: No Substance Use: ETOH no Tobacco yes, 3/4 pack per day Drugs no Support: Lives alone 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 Last Weights: Wt Readings from Last 3 Encounters: 02/20/25 81.2 kg (179 lb) 10/10/24 78.9 kg (174 lb) 08/17/23 87 kg (191 lb 14.4 oz) I/O's:No intake or output data in the 24 hours ending 04/14/25 0423 O2 Device: Nasal cannula Last 24 hr Labs No results found for this or any previous visit (from the past 24 hours). Cultures: Microbiology Results (last 21 days) No results found for the last 504 hours. Radiology Results Bedside FAST exam results: Not preformed X-ray chest 1 view Result Date: 04/14/2025 Narrative: CHEST ONE VIEW COMPARISON: Chest x-ray 04/14/2025 at 0009 hours, CT chest 04/13/2025 HISTORY: Left-sided rib fractures, left-sided hemothorax. History of cancer of trachea, bronchus and lung. FINDINGS: Portable AP chest radiograph demonstrates no pneumothorax. Cardiomediastinal silhouette and pulmonary vasculature are stable. Midline sternotomy wires. Left atrial appendage closure deviceand prosthetic heart valve. No evidence for focal consolidation or pleural effusion. Diffuse prominence of the interstitium consistent with emphysema. Increased prominence of the interstitium could be secondary to development of interstitial edema or could be due to differences in technique. IMPRESSION: 1. Emphysema. Increased diffuse interstitial prominence, which could be due to differences in technique or superimposed interstitial edema. 2. No evidence for residual left pleural effusion. Known left rib fractures are not well-visualized on this exam. No pneumothorax. Finalized by Aron Feldman MD on 04/14/2025 4:05 AM X-ray shoulder left minimum 2 views Result Date: 04/14/2025 Narrative: History: Fracture Exam/Technique: 3 views of the left shoulder were obtained. Comparison: Study was correlated with a CT examination from outside facility dated 1024 Findings: There is a displaced fracture of the coracoid process. The remainder the visualized osseous structures are intact. No dislocation is demonstrated. There are osteoarthritic changes about the acromioclavicular joint. IMPRESSION: Displaced fracture of the coracoid process of the scapula. Finalized by Krzysztof Rojas MD on 04/14/2025 4:03 AM X-ray clavicle left Result Date: 04/14/2025 Narrative: History: Clavicle fracture Exam/Technique: 2 views of the left clavicle were obtained. Comparison: The study was correlated with a CT thorax from outside facility dated 04/13/2025 Findings:There are osteoarthritic changes about the acromioclavicular joint. The clavicle itself is intact. The previous described fracture of the scapula is partially visualized. IMPRESSION: Fracture of the coracoid process of the scapula. Otherwise normal clavicle. Finalized by Krzysztof Rojas MD on 04/14/2025 4:02 AM Physical Exam Physical Exam Airway: Intact Breathing: Intact Circulation: Intact GCS: 15 Eye: Verbal Motor 1 Does not open 1 No sounds 1 No movement 2 Opens to pain 2 Incomprehensible sounds 2 Extension w/pain 3 Opens to voice 3 Incoherent words 3 Flex w/ pain 4 Spontaneous 4 Confused / disoriented 4 Withdraw from pain 5 Oriented 6 Obeys commands General: No distress, lying comfortably in bed, alert, interactive HEENT: Atraumatic EOMI PERRL 3mm, CN II-XII: grossly intact No Malocclusion TM Clear bilaterally Battles sign Absent Nares patent Dentition intact Neck: Trachea Midline Non Tender to palpation No pain with Flex / Ext / Lat Flex / Rotation, Axial Load & distraction Chest: Significant Left lateral chest wall tenderness to minimal palpation, No Crepitus, no ecchymosis Lungs:Good air movement B, CTA B though minimally diminished in the left lower bases, No Ronchi, NoWheeze Unlabored, nasal cannula 6L NC with SpO2 93% Heart: Heart tones S1/S2, No Murmur noted Abd: Soft, No guarding, No rigidity (+) Appetite No Brusing Left abdominal tenderness and left flank tenderness to palpation Pelvis: Iliac crest-Non tender to compression Symphysis pubis- Non tender to compression Back: T Spine- non tender to palpation L Spine- non tender to palpation No wounds / ecchymosis Extremities: RUE: 5/5 strength 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 no Do you feel annoyed by people complaining about your drinking or drug use? no Do you ever feel guilty about your drinking or drug use? no Have you ever had a drink or used drugs first thing in the morning to steady your nerves or to get rid of a hangover? no Scorin or more positive terms indicate the need for a brief intervention or social work consult. ASSESSMENT / PLAN Doc Burns 75 y.o. male with past medical history of CAD status post stent, COPD, diabetes, hypertension, active lung cancer not on chemotherapy, and continued tobacco use, brought in by EMS from [place] after attempting to carry an electric bike up the stairs and subsequently falling backwards. No LOC. Patient takes aspirin and clopidogrel. Injuries/Traumatic issues: 1. Traumatic fall -TraumaGram -imaging obtained at outside hospital, reveals left rib fractures 6-8, hemothorax and left pulmonary contusion, and left scapular fracture -chest x-ray -left shoulder x-ray -TraumaLabs -CMP -CBC -Coags, PT/INR -Amylase -Lipase -Ethanol -Urine Drug screen -Urinalysis -Trauma Meds -multimodal pain management -fentanyl 50 mcg -cardiac monitoring -monitor vitals -EKG 2. Left rib fractures 6-8, hemothorax, pulmonary contusion -repeat chest x-ray -incentive spirometer -pain management -presently on 6 L nasal cannula with SpO2 93% -continue to monitor vitals and oxygen demand, patient is not on oxygen at home 3. Left scapular fracture -x-ray left shoulder -consult ortho: Recommend nonoperative treatment, applying ice to affected areas, with weight-bearing restrictions 4. Tobacco use -patient endorses smoking 3/4 of a pack per day -patient was counseled on smoking cessation -patient was offered nicotine patch during hospital stay, declined at this time Comorbidities/Medical issues: Neuro- Pulm-history of lung cancer Cardio-CAD status post stent, hypertension, hyperlipidemia GI- - Heme- ID- MSK- Endo- Lytes- Lines and Tubes: Peripheral IV Pain control: Multimodal pain management Nutrition: Normal diet Prophylaxis: EPC cuffs, hold off on anticoagulation secondary to increased risk of bleeding Disposition: Trauma admit to SICU CONSULTATIONS Consultations: Trauma directly consulted orthopedic surgery Trauma Team Present: David BRICE, Rosa Isela BRICE, and Tavo Tolliver DO Trauma Team Arrival time: 03:15 Attending: Dr. Arslan Steel DO saw patient Time spent: 60 minutes Tavo Tolliver DO PGY-1 Trauma Services 04/14/25 4:23 AM Cosigned by Igor Steel DO at 04/14/2025 11:29 AM EDT Associated attestation - Igor Steel DO - 04/14/2025 11:29 AM EDT Attending Attestation: I saw the patient. I participated and was physically present during the critical/vieyra portions of the service. I was directly involved in the management and treatment plan of the patient. I reviewed the resident's note. Additional Notes/Findings: IGOR STEEL DO documented in this encounter[facility] Emergency department Note* Brandon Bettencourt RN - 04/14/2025 3:31 AM EDT Pt presents to ED as transfer from [place] as trauma consult for fall with Left sided hemothorax and multiple L sided rib fractures. Pt A&Ox4 with Hx of lung cancer. Pt has slowly desaturated while at [place] and presents on 6 LPM NC. Pt complaining of pain 7/10 in ribs at this time. * Migdalia Rosas DO - 04/14/2025 3:27 AM EDT Images from the original note were not included. [facility] - EMERGENCY DEPARTMENT Pt Name: Doc Burns Birthdate: 1950 Chief Complaint: Chief Complaint Patient presents with Fall History of Present Illness: Doc Burns is a 75 y.o. M presenting to the ED for chief complaint of fall. Pt is a trauma transfer for hemathorax and multiple left rib fractures. Pt states that he fell 14 stiars while carrying a 100lb ebike which fell on his chest. Patient states most of his pain is on his left side. DeniesLOC. Denies headache or vision changes. He is on aspirin and plavix for stents in his heart. He hashistory of lung cancer with right sided lobectomy. EMS reported he remained hypotensive while on the way to the ED. Past Medical History: Past Medical History: Diagnosis Date CAD (coronary artery disease) CHD (coronary heart disease) Chest pain COPD (chronic obstructive pulmonary disease) ([facility]) Depression DM (diabetes mellitus) ([facility]) History of lung cancer HLD (hyperlipidemia) HTN (hypertension) Insomnia Lung mass Tobacco abuse Past Surgical History: Past Surgical History: Procedure Laterality Date BRONCHOSCOPY ALVEOLAR LAVAGE N/A 12/06/2022 Performed by Richard Lentz DO at [facility] COLONOSCOPY CORONARY ARTERY BYPASS GRAFT Family History: Family History Problem Relation Age of Onset Hypertension Mother Heart disease Mother Diabetes Mother Cancer Father Heart disease Father Hypertension Father Social History: Social History Socioeconomic History Marital status: Single Tobacco Use Smoking status: Every Day Current packs/day: 1.00 Types: Cigarettes Smokeless tobacco: Never Substance and Sexual Activity Alcohol use: Not Currently Drug use: Never Sexual activity: Defer Social Drivers of Health Financial Resource Strain: Medium Risk (10/02/2023) Received from [facility] Overall Financial Resource Strain (CARDIA) Difficulty of Paying Living Expenses: Somewhat hard Food Insecurity: No Food Insecurity (04/14/2025) Hunger Screening Food Insecurity - Worry: Never True Food Insecurity - Inability: Never True Transportation Needs: Unmet Transportation Needs (10/02/2023) Received from [facility] PRAPARE - Transportation Lack of Transportation (Medical): Yes Lack of Transportation (Non-Medical): Yes Physical Activity: Inactive (10/02/2023) Received from [facility] Exercise Vital Sign Days of Exercise per Week: 0 days Minutes of Exercise per Session: 0 min Stress: Stress Concern Present (10/02/2023) Received from [facility] [place] [facility] Occup[employer] Health - Occupational Stress Questionnaire Feeling of Stress : Rather much Social Connections: Socially Isolated (10/02/2023) Received from [facility] Social Connection and Isolation Panel [NHANES] Frequency of Communication with Friends and Family: More than three times a week Frequency of Social Gatherings with Friends and Family: More than three times a week Attends Judaism Services: Never Active Member of Clubs or Organizations: No Attends Club or Organization Meetings: Never Marital Status: Received from [facility] Safety & Environment Housing Instability: Unknown (10/02/2023) Received from [facility] Housing Stability Vital Sign Unable to Pay for Housing in the Last Year: No Unstable Housing in the Last Year: No Review of Systems: Review of Systems Physical Exam: ED Triage Vitals Temp Pulse Resp BP SpO2 -- -- -- -- -- Temp src Heart Rate Source Patient Position BP Location FiO2 (%) -- -- -- -- -- Vitals: 04/14/25 0335 04/14/25 0410 BP: (!) 109/98 103/53 Pulse: 52 50 Resp: 12 19 SpO2: 91% 95% MAP (mmHg): 69 Physical Exam Vitals and nursing note reviewed. Constitutional: General: He is not in acute distress. Appearance: He is not ill-appearing. HENT: Head: Normocephalic and atraumatic. Nose: Nose normal. Mouth/Throat: Mouth: Mucous membranes are moist. Pharynx: Oropharynx is clear. Eyes: Extraocular Movements: Extraocular movements intact. Conjunctiva/sclera: Conjunctivae normal. Cardiovascular: Rate and Rhythm: Normal rate and regular rhythm. Heart sounds: Normal heart sounds. Pulmonary: Effort: Pulmonary effort is normal. Comments: Decreased breath sounds left lung Chest: Comments: Tenderness to palpation left lateral chest, left shoulder Abdominal: General: Bowel sounds are normal. There is no distension. Palpations: Abdomen is soft. Tenderness: There is no abdominal tenderness. There is no guarding. Musculoskeletal: General: No deformity. Normal range of motion. Cervical back: Normal range of motion. Skin: General: Skin is warm and dry. Neurological: General: No focal deficit present. Mental Status: He is alert and oriented to person, place, and time. Psychiatric: Mood and Affect: Mood normal. Procedure: Procedures Re-evaluation: Re-Evaluation Medical Decision Making Chart Reviewed Chief Complaint: Trauma consult after fall down 14 stairs Differential Diagnosis: Hemothorax, scapula fracture, rib fractures Plan of Care: SICU Patient presented as a trauma consult from outside hospital after he fell down 14 stairs while carrying an E bike up those stairs. Patient was found to have multiple rib fracture with hemothorax and left scapular fracture at outside hospital. He is on 6L nasal cannula on arrival. He states he is having some chest pain. No abdominal tenderness to palpation. Labs are in process at the time of admission. Patient states he is a smoker but denies alcohol or illicit drug use. Due to significant injuries, hypoxia, and hypotension, patient will be admitted to the SICU with the trauma service. Patient is agreeable with admission and verbalized understanding of his encounter. On my re-evaluation, patient is resting comfortably. Disposition: Admission Dictation microphone was used to write this note. All efforts were made to correct for any spellingor punctuation errors. Risk Prescription drug management. Decision regarding hospitalization. ED Course: Clinical Impressions as of 04/14/25 0423 Hemothorax on left Closed nondisplaced fracture of coracoid process of left shoulder, initial encounter Closed fracture of multiple ribs of left side, initial encounter . ED Disposition ED Disposition Admit Date/Time MonApr 14, 2025 3:51 AM Comment At this time, the patient has objective evidence of an acute process that will likely require hospitalization for greater than 2 midnights. The patient will be admitted. Teaching Visit 03:24 EDT Santi Banegas), scribed for and in the presence of: Dr Sylvester Aguilar who performed the above service. I, Dr. Aguilar saw the patient, was physically present during the critical and vieyra portions of the service and was directly involved in the management and treatment plan of the patient. I reviewed theresident's documentation. Below are additional notes and findings. Additional Notes/Findings: Doc Burns is a 75 y.o. M presenting to the ED for chief complaint of fall. Pt is a trauma transfer for hemathorax and multiple left rib fractures. Pt states that he fell 14 stiars while carrying a 100lb ebike which fell on his chest. Exam findings as follows: Constitutional: Awake and alert HENT: Head normocephalic and atraumatic Eyes: conjunctiva unremarkable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 11/07/2024 2:52 PM EST Images from the original note were not included. documented in this encounterAcmc Healthcare System03-17-2025 Telephone encounter Note * Telephone Encounter - Linette Bai MD - 11/18/2024 9:32 AM EDT Small nodules - more than prior in September. Still too small for PET/CT - keep 12 week appointments. [facility]03-17-2025 Telephone encounter Note* Telephone Encounter - Adenike Rosas RN - 11/18/2024 9:01 AM EDT Darleen: please review and advise Adenike Rosas RN [facility]03-06-2025 Telephone encounter Note* Telephone Encounter - Jasen Laughlin - 11/07/2024 2:52 PM EST Images from the original note were not included. [facility]03-06-2025 Instructions* Patient Instructions* Rima Malcolm - 11/07/2024 2:46 PM EST RTC in [address] CAP same day prior to visit Triage please call results from today's CT May need to modify plan for future imaging and follow up May need to obtain PET/CT Obtain report of CT from [facility] from 10/2024 Continue follow up with GI documented in this encounterAcmc Healthcare System03-06-2025 History of Present illness Narrative* Linette Bai MD - 11/07/2024 2:00 PM EST Images from the original note were not included. NAME: Doc Burns CLINIC NO.: [id number] DATE OF SERVICE: November 07, 2024 (Zac) Some elements in this clinic note that are critical to medical decision making have been carefully reviewed and included from a prior clinic note dated: September 12, 2024 (Zac) Referring Provider: Dr. Shaikh Etienne Additional Clinicians involved in Doc Burns's care: Richard Lentz DO DIAGNOSIS: lung cancer ASSESSMENT: 74 [...] 6-month gap between resection and presentation to nm. He remains at high risk because of [...] obtain PET/CT Obtain report of CT from [facility] from 10/2024 Continue follow up with [...] are again identified, several of which appear increasedin size, several of which have decreased in [...] below PET resolution stable. 05/30/2023 - EGD ([facility]): Duodenum: Mild bulbar duodenitis, otherwise normal. Stomach: [...] Fat-containing right inguinal hernia. 04/22/2021 - Colonoscopy ([facility]): Large blanketing polyp ascending, removed with a [...] other disease. Updated Visit, November 07, 2024: Doc returns for a follow up. Final reading [...] He continues to smoke but is otherwise athis baseline state of health. Sister is having cardiac workup and could be here with him. Still taking Linzess for constipation. Updated Visit, April 18, 2024: Returns alone today and CT is pending read. Doing well otherwise but continues to gain weight. Updated Visit, March 01, 2024: Doc returns with his sister, Maria Teresa. Recent [...] last visit. Updated Visit, November 17, 2023: Doc returns today with Bari. CT shows significant [...] weight gain. Updated Visit, August 11, 2023: Doc returns today for follow up, says he is hanging in there. He has gained weight, but reports that he has not been eating nearly as much. Had his EGD done on 05/30/2023. Results: gastritis. Positive stool test showing H. Pylori. PET last week looks good. [facility] [...] not anemic. Updated Visit, May 05, 2023: Doc returns with his Sister Maria Teresa today and seems to be doing well. He is in good spirits. PET/CT was reviewed Shows improvement of bilateral pulmonary nodules. However the abdomen and pelvis demonstrate persistent uptake at the distal stomach/proximal duodenum and likely needs upper endoscopy. Updated Visit, March 03, 2023: Doc returns with his son during and his [...] 2022: Telephone only for 5 mins Called Doc as requested. Reviewed findings of liver resection [...] him today. Updated Visit, June 25, 2021: Doc Burns returns for follow up. There has [...] of himself that he can. 04/22/2021 Colonoscopy ([facility]) Results scanned to [facility] 06/04/2021 Updated Visit, February 05, 2021: Doing well overall but still smokes. We reviewed his CT scans from 02/01/2021 which shows no evidence of recurrent diseaes but will need follow up for bilateral small pulmonary nodules. Initial Visit, January 13, 2021: Doc Burns presents today for Hematology and Oncology [...] colonoscopy. PATHOLOGY/MOLECULAR DATA 01/10/2022 Partial liver resection: [id number] Order: [id number] Collected 01/10/2022 11:56 AM Status: Final result [...] A3-A4 remainderof specimen. [facility] [address] [facility] [address] CLIA# [id number] [facility] January 12, 2022 9:23 AM REVIEW [...] which included preparing to see the patient, [id number] patient care, completing clinical documentation, performing a medically appropriate examination, counseling and educating the patient/family/caregiver, ordering medications, tests, or p rocedures, communicating with other HCPs (not separately reported), independently interpreting results (not separately reported), and communicating results to the patient/family/caregiver. Linette Bai MD, CPE Hematology and Oncology Services Provided at: [place], [place] Scribe Attestation: This note was scribed by Rima Malcolm on November 07, 2024 under the direction and supervision of Dr. Linette Bai. I attest that all of the information documented is correct to the best of my knowledge. Provider Attestation: I, Linette Bai MD, attest that all information documented by the above scribe is correct, and was supervised by me and under my direction. CC: Shaikh Lowell [address] [facility] [id number] Richard Lentz DO David Hykes documented in this encounterAcmc Healthcare System03-06-2025 NoteHNO ID: [id number] Author: LINETTE BAI MD Service: ? Author Type: Physician Type: Progress Notes Filed: 11/08/2024 18:21 Note Text: NAME: Doc Burns [facility] NO.: [id number] DATE OF SERVICE: November 07, 2024 (Zac) Some elements in this clinic note that are critical to medical decision making have been carefully reviewed and included from a prior clinic note dated: September 12, 2024 (Zac) Referring Provider: Dr. Shaikh Etienne Additional Clinicians involved in Doc Burns's care: Richard Lentz DO DIAGNOSIS: lung cancer ASSESSMENT: 74 [...] 6-month gap between resection and presentation to nm. He remains at high risk because of [...] obtain PET/CT Obtain report of CT from [facility] from 10/2024 Continue follow up with [...] Vein Mapping LLE: No (more content not included)...[facility]03-06-2025 History of Present illness Narrative* Chloe Ivey RN - 11/07/2024 12:45 PM EST Radiology Service Progress Note [...] Intact SIGNATURE: Chloe Ivey RN PATIENT NAME: Doc Burns DATE: November 07, 2024 TIME: 12:40 PM * Charla Worrell RT(R) - 11/07/2024 12:45 PM EST Radiology Service Progress Note PATIENT NAME: Doc Burns DATE OF SERVICE: November 07, 2024 [...] PATIENT PRESENTS WITH AN IMPLANTABLE OR ATTACHED COOPERATIVE MANAGER: No RADIOLOGY DEPARTMENT: CT; Exam(s) Completed: Chest Abdomen Pelvis PERIPHERAL IV DATA: Site assessment: Clean,Dry and Intact, Site disposition Discontinued SIGNED BY: RT Darius(Arslan) November 07, 2024 12:48 PM documented in this encounterAcmc Healthcare System03-06-2025 NoteHNO ID: [id number] Author: CHARLA WORRELL RT(R) Service: ? Author Type: Technologist Type: Progress Notes Filed: 11/07/2024 12:53 Note Text: Radiology Service Progress Note PATIENT NAME: Doc Burns DATE OF SERVICE: November 07, 2024 [...] PATIENT PRESENTS WITH AN IMPLANTABLE OR ATTACHED COOPERATIVE MANAGER: No RADIOLOGY DEPARTMENT: CT; Exam(s) Completed: Chest Abdomen Pelvis PERIPHERAL IV DATA: Site assessment: Clean,Dry and Intact, Site disposition Discontinued SIGNED BY: RT Darius(Arslan) November 07, 2024 12:48 [facility]03-06-2025 NoteHNO ID: [id number] Author: CHLOE IVEY RN Service: ? Author [...] Intact SIGNATURE: Chloe Ivey RN PATIENT NAME: Doc Burns DATE: November 07, 2024 TIME: 12:40 [facility]02-11-2025 Telephone encounter Note* Telephone Encounter - Kasandra Young MA - 10/15/2024 9:55 AM EST ISAEL:09/11/2024 NOV:12/12/2024 [facility] [id number] Miscellaneous Notes* Telephone Encounter - Kasandra Young MA - 10/15/2024 9:55 AM EST ISAEL:09/11/2024 NOV:12/12/2024 documented in this encounterNOMercy Hospital South, formerly St. Anthony's Medical [id number] History of Present illness Narrative* Richard Lentz DO - 10/10/2024 1:30 PM EST Images from the original note were not included. [facility] Progress Note Patient - Doc Burns Age - 74 y.o. - 1950 [...] repeat CT scan of the chest with [facility] Age-appropriate routine vaccination advised Daily walking program Repeat PFT data sometime this year. Order placed Reviewed records from [facility] Return to office in 5 months or earlier if needed SUBJECTIVE Mr. Burns presents for follow-up of his COPD, tobacco use, multiple pulmonary nodules. He follows very closely was [facility] oncology. His most recent CT scan had demonstrated some new pulmonary nodules and he has a 8 week follow- up CT scan of the chest which is pending. 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 He was initially breathless upon presentation to the office however has been markedlyimproved on inhaler therapy. He takes Trelegy 200, [...] Results Radiology CT chest with contrast Order: [id number] Impression IMPRESSION: 1. Multiple subcentimeter nodular opacities, [...] any questions regarding this interpretation, please call [phone]. If you are unable to reach us at the number above, please feel free to contact [facility] at [phone]. Narrative * * *Final Report* * * DATE OF EXAM: Sep 12 2024 1:05PM [facility] 05[address] - CT CHEST W IVCON / [...] No evidence of an adrenal mass. Dr. Richard Lentz DO. [facility] Pulmonary & Critical Care Office: [phone] documented in this encounterSelect Medical [facility]ty [facility]01-28-2025 Telephone encounter Note* Telephone Encounter - Kasandra Young MA - 10/01/2024 1:22 PM EST ISAEL:09/11/2024 NOV:12/12/2024 [facility] HealthcareQnppalkkpn04-89-1859 Miscellaneous Notes* Telephone Encounter - Kasandra Young MA - 10/01/2024 1:22 PM EST ISAEL:09/11/2024 NOV:12/12/2024 documented in this encounterCitizens Memorial HealthcareQhjpylqubz13-43-6834 Telephone encounter Note* Telephone Encounter - Adenike Rosas RN - 09/18/2024 9:30 AM EST Pt informed of Darleen's message, once verified, using 2 patient identifiers. Patient denies any questions, needs or concerns at this time. Appointment verified. Adenike Rosas RN [facility]01-15-2025 Telephone encounter Note* Telephone Encounter - Adenike Rosas RN - 09/18/2024 9:30 AM EST ----- Message from Linette Bai MD sent at 09/17/2024 5:27 PM EST ----- Doc's scans continue to look good. [facility]01-15-2025 Miscellaneous Notes* Telephone Encounter - Adenike Rosas RN - 09/18/2024 9:30 AM EST Pt informed of Darleen's message, once verified, using 2 patient identifiers. Patient denies any questions, needs or concerns at this time. Appointment verified. Adenike Rosas RN * Telephone Encounter - Adenike Rosas RN - 09/18/2024 9:30 AM EST ----- Message from Linette Bai MD sent at 09/17/2024 5:27 PM EST ----- Doc's scans continue to look good. documented in this encounterAcmc Healthcare System01-10-2025 Telephone encounter Note * Telephone Encounter - Adenike Rosas RN - 09/13/2024 12:57 PM EST Clarified to continue with CT/appt, as previously scheduled, 11/07/24. Pt updated and agreeable to plan of care. Pt denies any questions, needs or concerns at this time. Adenike Rosas RN [facility]01-10-2025 Miscellaneous Notes* Telephone Encounter - Adenike Rosas RN - 09/13/2024 12:57 PM EST Clarified to continue with CT/appt, as previously scheduled, 11/07/24. Pt updated and agreeable to plan of care. Pt denies any questions, needs or concerns at this time. Adenike Rosas RN * Telephone Encounter - Adenike Rosas RN - 09/13/2024 12:56 PM EST Images from the original note were not included. Linette Bai MD [facility] Triage Pool 1. Multiple subcentimeter nodular opacities, most are stable but some are slightly smaller since 07/19/24. 2. No evidence of new intrathoracic abnormalities. Scan looks great!! * Telephone Encounter - Adenike Rosas RN - 09/13/2024 7:56 AM EST Darleen: Please review and advise on any need to modify plan Adenike Rosas RN * Telephone Encounter - Jasen Laughlin - 09/12/2024 1:53 PM EST Images from the original note were not included. documented in this encounterAcmc Healthcare System01-10-2025 Telephone encounter Note * Telephone Encounter - Adenike Rosas RN - 09/13/2024 12:56 PM EST Images from the original note were not included. Linette Bai MD [facility] Triage Pool 1. Multiple subcentimeter nodular opacities, most are stable but some are slightly smaller since 07/19/24. 2. No evidence of new intrathoracic abnormalities. Scan looks great!! [facility]01-10-2025 Telephone encounter Note* Telephone Encounter - Adenike Rosas RN - 09/13/2024 7:56 AM EST Darleen: Please review and advise on any need to modify plan Adenike Rosas RN [facility]01-09-2025 Telephone encounter Note* Telephone Encounter - Jasen Laughlin - 09/12/2024 1:53 PM EST Images from the original note were not included. [facility]01-09-2025 Instructions* Patient Instructions* Linette Bai MD - 09/12/2024 1:43 PM EST RTC [address] and labs same day preceding clinician appointment Triage please call results from today's CT May need to modify plan for future imaging and follow up. May need to obtain PET/CT Continue follow up with GI documented in this encounterAcmc Healthcare System01-09-2025 History of Present illness Narrative* Linette Bai MD - 09/12/2024 1:20 PM EST Images from the original note were not included. NAME: Doc Burns [facility] NO.: [id number] DATE OF SERVICE: September 12, 2024 (Zac) Some elements in this clinic note that are critical to medical decision making have been carefully reviewed and included from a prior clinic note dated: July 24, 2024 (Zac) Referring Provider: Dr. Shaikh Etienne Additional Clinicians involved in Doc Burns's care: Richard Lentz DO DIAGNOSIS: lung cancer ASSESSMENT: 74 [...] are again identified, several of which appear increasedin size, several of which have decreased in [...] below PET resolution stable. 05/30/2023 - EGD ([facility]): Duodenum: Mild bulbar duodenitis, otherwise normal. Stomach: [...] Fat-containing right inguinal hernia. 04/22/2021 - Colonoscopy ([facility]): Large blanketing polyp ascending, removed with a [...] see comment. Malignant cells stain positive for laen cytokeratinfocal and p63 weak focal. Negative for [...] He continues to smoke but is otherwise athis baseline state of health. Sister is having cardiac workup and could be here with him. Still taking Linzess for constipation. Updated Visit, April 18, 2024: Returns alone today and CT is pending read. Doing well otherwise but continues to gain weight. Updated Visit, March 01, 2024: Doc returns with his sister, Maria Teresa. Recent [...] last visit. Updated Visit, November 17, 2023: Doc returns today with Bari. CT shows significant [...] weight gain. Updated Visit, August 11, 2023: Doc returns today for follow up, says he is hanging in there. He has gained weight, but reports that he has not been eating nearly as much. Had his EGD done on 05/30/2023. Results: gastritis. Positive stool test showing H. Pylori. PET last week looks good. It was recommended he follow up with [facility] for next imaging due to the small [...] not anemic. Updated Visit, May 05, 2023: Doc returns with his Sister Maria Teresa today and seems to be doing well. He is in good spirits. PET/CT was reviewed Shows improvement of bilateral pulmonary nodules. However the abdomen and pelvis demonstrate persistent uptake at the distal stomach/proximal duodenum and likely needs upper endoscopy. Updated Visit, March 03, 2023: Doc returns with his son during and his [...] 2022: Telephone only for 5 mins Called Doc as requested. Reviewed findings of liver resection [...] him today. Updated Visit, June 25, 2021: Doc Burns returns for follow up. There has [...] of himself that he can. 04/22/2021 Colonoscopy ([facility]) Results scanned to [facility] 06/04/2021 Updated Visit, February 05, 2021: Doing well overall but still smokes. We reviewed his CT scans from 02/01/2021 which shows no evidence of recurrent diseaes but will need follow up for bilateral small pulmonary nodules. Initial Visit, January 13, 2021: Doc Burns presents today for Hematology and Oncology [...] colonoscopy. PATHOLOGY/MOLECULAR DATA 01/10/2022 Partial liver resection: [id number] Order: [id number] Collected 01/10/2022 11:56 AM Status: Final result [...] A3-A4 remainderof specimen. Gross examination performed at [facility], [address] [place] [id number] CLIA# [id number] [facility] January 12, 2022 9:23 AM REVIEW OF [...] which included preparing to see the patient, [id number] patient care, completing clinical documentation, performing a medically appropriate examination, counseling and educating the patient/family/caregiver, ordering medications, tests, or p rocedures, communicating with other HCPs (not separately reported), independently interpreting results (not separately reported), and communicating results to the patient/family/caregiver. Linette Bai MD, [facility]ology [facility] Oncology Services Provided at: [place], [place] CC: Shaikh Lowell [address] [facility] [address] Richard Lentz DO David Hykes documented in this encounterAcmc Healthcare System01-09-2025 NoteHNO ID: [id number] Author: LINETTE BAI MD Service: ? Author Type: Physician Type: Progress Notes Filed: 09/13/2024 12:54 Note Text: NAME: Doc Burns [facility] NO.: [id number] DATE OF SERVICE: September 12, 2024 (Zac) Some elements in this clinic note that are critical to medical decision making have been carefully reviewed and included from a prior clinic note dated: July 24, 2024 (Zac) Referring Provider: Dr. Shaikh Etienne Additional Clinicians involved in Doc Burns's care: Rihcard Lentz DO DIAGNOSIS: lung cancer ASSESSMENT: 74 [...] CT Chest: There h (more content not included)...[facility]01-09-2025 History of Present illness Narrative* Charla Worrell, RT(R) - 09/12/2024 12:45 PM EST Radiology Service Progress Note PATIENT NAME: Doc Burns DATE OF SERVICE: September 12, 2024 [...] PATIENT PRESENTS WITH AN IMPLANTABLE OR ATTACHED COOPERATIVE MANAGER: No RADIOLOGY DEPARTMENT: CT; Exam(s) Completed: Chest PERIPHERAL IV DATA: Site assessment: Clean,Dry and Intact, Site disposition Discontinued SIGNED BY: RT Darius(Arslan) September 12, 2024 12:41 PM documented in this encounterAcmc Healthcare System01-09-2025 NoteHNO ID: [id number] Author: CHARLA WORRELL RT(Arslan) Service: ? Author Type: Technologist Type: Progress Notes Filed: 09/12/2024 12:42 Note Text: Radiology Service Progress Note PATIENT NAME: Doc Burns DATE OF SERVICE: September 12, 2024 [...] PATIENT PRESENTS WITH AN IMPLANTABLE OR ATTACHED COOPERATIVE MANAGER: No RADIOLOGY DEPARTMENT: CT; Exam(s) Completed: Chest PERIPHERAL IV DATA: Site assessment: Clean,Dry and Intact, Site disposition Discontinued SIGNED BY: RT Darius(R) September 12, 2024 12:41 [facility]01-08-2025 History of Present illness Narrative* Jasen Vasques NP - 09/11/2024 1:56 PM ESTAssociated Problem(s): HLD (hyperlipidemia) (CMS/HCC) Currently taking Denies any myalgias. Most recent Lipid Panel 09/27; Will recheck today. Continue current regimen. * Jasen Vasques NP - 09/11/2024 1:49 PM ESTAssociated Problem(s): Panlobular emphysema (CMS/HCC) On Trelegy. Chronic exertional ZHAO. Unchanged. Seen by Puljeffrey in 08/26 Continues to smoke. Encouraged to quite smoking * Jasen Vasques NP - 09/11/2024 1:48 PM ESTAssociated Problem(s): HTN (hypertension) (CMS/HCC) Currently taking amlodipine [...] next visit. * Jasen Vasques NP - 09/11/2024 1:30 PM EST Images from the original note were not included. Subjective Patient ID: Doc Burns is a 74 y.o. male who presents for Follow-up (3m ). HPI Specialists: Cardiology- Dr. Matthews Pulmonology- Dr. Lentz, [facility]- Tavo Hull, GAS FITTER HELPER-C Heme/Onc- Dr. Linette Abhyankar- [facility] HTN: Currently taking amlodipine 5mg Entresto Metoprolol 100mg Spironolactone 25mg Cardiology managing medications; Follows closely. Checks BP at home; Averages are 120's SBP;BP is TOO LOW in office today, too tightly controlled. Ptreports dizziness occasionally. Will decrease Spironolactone to 12.5mg [...] GLOBULIN RATIO 0.8 Resulting Agency [facility] Review of Systems Constitutional: Negative for activity [...] List Items Addressed This Visit HLD (hyperlipidemia) ([facility]) - Primary Currently taking Denies any myalgias. Most recent Lipid Panel 09/27; Will recheck today. Continue current regimen. Relevant Orders Lipid panel HTN (hypertension) ([facility]) Currently taking amlodipine 5mg Entresto Metoprolol [...] with them to next visit. Panlobular emphysema ([facility]) On Trelegy. Chronic exertional ZHAO. Unchanged. Seen by Pulm in 08/26 Continues to smoke. Encouraged to quite smoking Other Visit Diagnoses Depression, unspecified (CMS/HCC) Relevant Medications busPIRone (Buspar) 30 MG tablet documented in this encounterCitizens Memorial HealthcareFeiirioood08-23-2096 Miscellaneous Notes* Telephone Encounter - Deepti S Marianne - 08/15/2024 3:19 PM EST Alejandra from [employer] called about patients prescription for Trelegy 200. Alejandra wanted to have us update the script since it expires in 2 days and has not been filled yet. Alejadnra was informed that patient has not been seen for a year and would need appointment. Call Center Supervisor called patient and scheduled them for an appointment for 10/10/2024. documented in this encounterSelect [facility] Telephone encounter Note* Telephone Encounter - Deepti Mayda Lopes - 08/15/2024 3:19 PM EST Alejandra from [employer] called about patients prescription for Trelegy 200. Alejandra wanted to have us update the script since it expires in 2 days and has not been filled yet. Alejandra was informed that patient has not been seen for a year and would need appointment. Call Center Supervisor called patient and scheduled them for an appointment for 10/10/2024. [facility]12-03-2024 Telephone encounter Note* Telephone Encounter - Kasandra Young MA - 08/06/2024 2:13 PM EST ISAEL:06/03/2024 NOV:09/11/2024 [facility] [id number] Miscellaneous Notes* Telephone Encounter - Kasandra Young MA - 08/06/2024 2:13 PM EST ISAEL:06/03/2024 NOV:09/11/2024 documented in this encounterCitizens Memorial [id number] Instructions* Patient Instructions* Linette Bai MD - 07/24/2024 11:32 AM EST RTC [address] and labs same day preceding clinician appointment Continue follow up with GI documented in this encounterAcmc Healthcare System11-20-2024 History of Present illness Narrative* Linette Bai MD - 07/24/2024 11:20 AM EST Images from the original note were not included. NAME: Doc Burns [facility] NO.: [id number] DATE OF SERVICE: July 24, 2024 ([facility]) Some elements in this clinic note that are critical to medical decision making have been carefully reviewed and included from a prior clinic note dated: April 18, 2024 (Zac) Referring Provider: Dr. Shaikh Etienne Additional Clinicians involved in Doc Burns's care: Richard Lentz DO DIAGNOSIS: lung cancer ASSESSMENT: 74 [...] 6-month gap between resection and presentation to nm. He remains at high risk because of tobacco use. Restaging is non-specific for recurrence of lung cancer but short interval CT's found a new liver lesion which then persisted through December 2021. He saw Dr. oMta for resection 01/10/2022 - benign findings of [...] are again identified, several of which appear increasedin size, several of which have decreased in [...] below PET resolution stable. 05/30/2023 - EGD ([facility]): Duodenum: Mild bulbar duodenitis, otherwise normal. Stomach: [...] Fat-containing right inguinal hernia. 04/22/2021 - Colonoscopy ([facility]): Large blanketing polyp ascending, removed with a [...] He continues to smoke but is otherwise athis baseline state of health. Sister is having cardiac workup and could be here with him. Still taking Linzess for constipation. Updated Visit, April 18, 2024: Returns alone today and CT is pending read. Doing well otherwise but continues to gain weight. Updated Visit, March 01, 2024: Doc returns with his sister, Maria Teresa. Recent [...] last visit. Updated Visit, November 17, 2023: Doc returns today with Bari. CT shows significant [...] weight gain. Updated Visit, August 11, 2023: Doc returns today for follow up, says he is hanging in there. He has gained weight, but reports that he has not been eating nearly as much. Had his EGD done on 05/30/2023. Results: gastritis. Positive stool test showing H. Pylori. PET last week looks good. It was recommended he follow up with [facility] for next imaging due to the small [...] not anemic. Updated Visit, May 05, 2023: Doc returns with his Sister Maria Teresa today and seems to be doing well. He is in good spirits. PET/CT was reviewed Shows improvement of bilateral pulmonary nodules. However the abdomen and pelvis demonstrate persistent uptake at the distal stomach/proximal duodenum and likely needs upper endoscopy. Updated Visit, March 03, 2023: Doc returns with his son during and his [...] 2022: Telephone only for 5 mins Called Doc as requested. Reviewed findings of liver resection [...] him today. Updated Visit, June 25, 2021: Doc Burns returns for follow up. There has [...] of himself that he can. 04/22/2021 Colonoscopy ([facility]) Results scanned to [facility] 06/04/2021 Updated Visit, February 05, 2021: Doing well overall but still smokes. We reviewed his CT scans from 02/01/2021 which shows no evidence of recurrent diseaes but will need follow up for bilateral small pulmonary nodules. Initial Visit, January 13, 2021: Doc Burns presents today for Hematology and Oncology [...] colonoscopy. PATHOLOGY/MOLECULAR DATA 01/10/2022 Partial liver resection: [id number] Order: [id number] Collected 01/10/2022 11:56 AM Status: Final result [...] A3-A4 remainderof specimen. [facility] at [facility], [facility] [address] IA# [id number] [facility] January 12, 2022 9:23 AM REVIEW OF SYSTEMS Per HPI and otherwise negative by full review of organ systems. ECOG PERFORMANCE STATUS: 1 PHYSICAL EXAMINATION: Vitals: BP 119/64 Pulse 49 Temp (Src) 97.8 (Temporal) Resp 16 Ht 5' 5.984 (1.68m) Wt 184lb 1.4 oz (83.5kg) SpO2 97% BMI 29.73 [...] which included preparing to see the patient, [id number] patient care, completing clinical documentation, performing a medically appropriate examination, counseling and educating the patient/family/caregiver, ordering medications, tests, or p rocedures, communicating with other HCPs (not separately reported), independently interpreting results (not separately reported), and communicating results to the patient/family/caregiver. Linette Bai MD, CPE Hematology and Oncology Services Provided at: [place], [place] CC: Shaikh Lowell [address] [facility] [address] Richard Lentz DO David Hykes documented in this encounterAcmc Healthcare System11-20-2024 NoteHNO ID: [id number] Author: LINETTE BAI MD Service: ? Author Type: Physician Type: Progress Notes Filed: 07/24/2024 17:20 Note Text: NAME: Doc Burns CLINIC NO.: [id number] DATE OF SERVICE: July 24, 2024 (Zac) Some elements in this clinic note that are critical to medical decision making have been carefully reviewed and included from a prior clinic note dated: April 18, 2024 (Zac) Referring Provider: Dr. Shaikh Etienne Additional Clinicians involved in Doc Burns's care: Richard Lentz DO DIAGNOSIS: lung cancer ASSESSMENT: 74 [...] 6-month gap between resection and presentation to nm. He remains at high risk because of [...] of the ascending thorac (more content not included)...[facility] 07-22-2024 Evaluation note* Diagnosis Onset Date Resolution Status Admit Date GERD (gastroesophageal reflux disease) acuteNov2023 1:56pmIrritable bowel syndrome with constipationacute July 22, 2024 1:56pm [facility] Work Phone: [phone] History of Present illness Narrative* Chloe Ivey [...] Intact SIGNATURE: Chloe Ivey RN PATIENT NAME: Doc Burns DATE: July 19, 2024 TIME: 11:12 AM * Charla Worrell RT(R) - 07/19/2024 10:15 AM EST Radiology Service Progress Note PATIENT NAME: Doc Burns DATE OF SERVICE: July 19, 2024 [...] PATIENT PRESENTS WITH AN IMPLANTABLE OR ATTACHED COOPERATIVE MANAGER: No RADIOLOGY DEPARTMENT: CT; Exam(s) Completed: Chest Abdomen Pelvis PERIPHERAL IV DATA: Site assessment: Clean,Dry and Intact, Site disposition Discontinued SIGNED BY: RT Darius(R) July 19, 2024 11:23 AM documented in this encounterAcmc Healthcare System11-15-2024 NoteHNO ID: [id number] Author: CHLOE IVEY RN Service: ? Author [...] Intact SIGNATURE: Chloe Ivey RN PATIENT NAME: Doc Burns DATE: July 19, 2024 TIME: 11:12 [facility]11-15-2024 NoteHNO ID: [id number] Author: CHARLA WORRELL RT(R) Service: ? Author Type: Technologist Type: Progress Notes Filed: 07/19/2024 11:23 Note Text: Radiology Service Progress Note PATIENT NAME: Doc Burns DATE OF SERVICE: July 19, 2024 [...] PATIENT PRESENTS WITH AN IMPLANTABLE OR ATTACHED COOPERATIVE MANAGER: No RADIOLOGY DEPARTMENT: CT; Exam(s) Completed: Chest Abdomen Pelvis PERIPHERAL IV DATA: Site assessment: Clean,Dry and Intact, Site disposition Discontinued SIGNED BY: RT Darius(R) July 19, 2024 11:23 [facility]09-30-2024 History of Present illness Narrative* Jasen Vasques NP - 06/03/2024 2:30 PM EDT Associated Problem(s): HLD (hyperlipidemia) (CMS/HCC) Currently taking [...] regimen as directed by GI. * Jasen Vasques, CHELLE - 06/03/2024 2:00 PM EDT Images from the original note were not included. Subjective Patient ID: Doc Burns is a 74 y.o. male who presents for No chief complaint on file.. Specialists: Cardiology- Dr. Matthews Pulmonology- Dr. Lentz, [facility]- Tavo Hull, GAS FITTER HELPER-C Heme/Onc- Dr. Linette Bai- [facility] HPI HTN: Currently taking amlodipine [...] ALBUMIN GLOBULIN RATIO 0.8 Resulting Agency [facility] Review of Systems Constitutional: Negative for activity [...] Pulmonary medicine. Continue current regimen. HLD (hyperlipidemia) ([facility]) Currently taking Denies any myalgias. Most recent Lipid Panel 09/27; Will recheck in September. Continue current regimen. HTN (hypertension) ([facility]) - Primary Currently taking amlodipine 5mg Entresto [...] as directed by GI. documented in this encounterCitizens Memorial He[id number] Telephone encounter Note* Telephone Encounter - Oanh Rodríguez - 04/19/2024 9:23 AM EDT Spoke to patient & scheduled him on 07/19/2024 at 10:[address] CAP & labs and DARLEEN at 11:30 am. Oanh Rodríguez [facility]08-16-2024 Miscellaneous Notes* Telephone Encounter - Oanh Rodríguez - 04/19/2024 9:23 AM EDT Spoke to patient & scheduled him on 07/19/2024 at 10:[address] CAP & labs and DARLEEN at 11:30 am. Oanh Rodríguez * Telephone Encounter - Adenike Rosas RN - 04/19/2024 7:52 AM EDT Images from the original note were not included. Linette Bai MD [facility] Triage Pool; [facility] Clerical Pool CT shows mostly improvement - will repeat CT CAP in 3 months with labs. RTC same day is fine or a few days after please Pt notified and denies questions, needs or concerns at this time. He will await call to schedule appts. PSS: please call to schedule CT/Lab/Darleen, as ordered Adenike Rosas RN * Telephone Encounter - Jasen Laughlin - 04/18/2024 11:36 AM EDT Images from the original note were not included. Triage: Please see for results. Thanks! Jasen Laughlin documented in this encounterAcmc Healthcare System08-16-2024 Telephone encounter Note * Telephone Encounter - Adenike Rosas RN - 04/19/2024 7:52 AM EDT Images from the original note were not included. Linette Bai MD [facility] Triage Pool; [facility] Clerical Pool CT shows mostly improvement - will repeat CT CAP in 3 months with labs. RTC same day is fine or a few days after please Pt notified and denies questions, needs or concerns at this time. He will await call to schedule appts. PSS: please call to schedule CT/Lab/Darleen, as ordered Adenike Rosas RN [facility]08-15-2024 Telephone encounter Note* Telephone Encounter - Jasen Laughlin - 04/18/2024 11:36 AM EDT Images from the original note were not included. Triage: Please see for results. Thanks! Jasen Laughlin [facility]08-15-2024 Instructions* Patient Instructions* Linette Bai MD - 04/18/2024 11:35 AM EDT television installer to call results of today's CT Chest RTC TBD but anticipate [address] and labs. Continue follow up with GI documented in this encounterAcmc Healthcare System08-15-2024 History of Present illness Narrative* Linette Bai MD - 04/18/2024 11:30 AM EDT Images from the original note were not included. NAME: Doc Burns [facility] NO.: [id number] DATE OF SERVICE: April 18, 2024 (Zac) Some elements in this clinic note that are critical to medical decision making have been carefully reviewed and included from a prior clinic note dated: March 01, 2024 (Zac) Referring Provider: Dr. Shaikh Etienne Additional Clinicians involved in Doc Burns's care: Richard Lentz DO DIAGNOSIS: lung cancer ASSESSMENT: 74 [...] 6-month gap between resection and presentation to nm. He remains at high risk because of [...] so repeat CT in 6 weeks. PLAN: television installer to call results of today's CT Chest [...] below PET resolution stable. 05/30/2023 - EGD ([facility]): Duodenum: Mild bulbar duodenitis, otherwise normal. Stomach: [...] Fat-containing right inguinal hernia. 04/22/2021 - Colonoscopy ([facility]): Large blanketing polyp ascending, removed with a [...] gain weight. Updated Visit, March 01, 2024: Doc returns with his sister, Maria Teresa. Recent [...] last visit. Updated Visit, November 17, 2023: Doc returns today with Bari. CT shows significant [...] weight gain. Updated Visit, August 11, 2023: Doc returns today for follow up, says he is hanging in there. He has gained weight, but reports that he has not been eating nearly as much. Had his EGD done on 05/30/2023. Results: gastritis. Positive stool test showing H. Pylori. PET last week looks good. It was recommended he follow up with [facility] for next imaging due to the small [...] not anemic. Updated Visit, May 05, 2023: Doc returns with his Sister Maria Teresa today and seems to be doing well. He is in good spirits. PET/CT was reviewed Shows improvement of bilateral pulmonary nodules. However the abdomen and pelvis demonstrate persistent uptake at the distal stomach/proximal duodenum and likely needs upper endoscopy. Updated Visit, March 03, 2023: Doc returns with his son during and his [...] 2022: Telephone only for 5 mins Called Doc as requested. Reviewed findings of liver resection [...] him today. Updated Visit, June 25, 2021: Doc Burns returns for follow up. There has [...] of himself that he can. 04/22/2021 Colonoscopy ([facility]) Results scanned to [facility] 06/04/2021 Updated Visit, February 05, 2021: Doing well overall but still smokes. We reviewed his CT scans from 02/01/2021 which shows no evidence of recurrent diseaes but will need follow up for bilateral small pulmonary nodules. Initial Visit, January 13, 2021: Doc Burns presents today for Hematology and Oncology [...] colonoscopy. PATHOLOGY/MOLECULAR DATA 01/10/2022 Partial liver resection: [id number] Order: [id number] Collected 01/10/2022 11:56 AM Status: Final result [...] A3-A4 remainderof specimen. Gross [facility], [address] [facility] [address] CLIA# [id number] [facility] January 12, 2022 9:23 AM REVIEW [...] which included preparing to see the patient, [id number] patient care, completing clinical documentation, performing a medically appropriate examination, counseling and educating the patient/family/caregiver, ordering medications, tests, or p rocedures, communicating with other HCPs (not separately reported), independently interpreting results (not separately reported), and communicating results to the patient/family/caregiver. Linette Bai MD, CPE Hematology and Oncology Services Provided at: [place], [place] CC: Shaikh Lowell [address] [facility] [address] Richard Lentz DO David Hykes documented in this encounterAcmc Healthcare System08-15-2024 History of Present illness Narrative* Chloe Ivey, JERONIMO - 04/18/2024 10:45 AM EDT Radiology Service [...] Intact SIGNATURE: Chloe Ivey RN PATIENT NAME: Doc Burns DATE: April 18, 2024 TIME: 10:51 AM * Charla Worrell RT(R) - 04/18/2024 10:45 AM EDT Radiology Service Progress Note PATIENT NAME: Doc Burns DATE OF SERVICE: April 18, 2024 [...] PATIENT PRESENTS WITH AN IMPLANTABLE OR ATTACHED COOPERATIVE MANAGER: No RADIOLOGY DEPARTMENT: CT; Exam(s) Completed: Chest PERIPHERAL IV DATA: Site assessment: Clean,Dry and Intact, Site disposition Discontinued SIGNED BY: RT Darius(R) April 18, 2024 10:46 AM documented in this encounterAcmc Healthcare System08-15-2024 Telephone encounter Note * Telephone Encounter - Chloe Ivey RN - 04/18/2024 7:08 AM EDT Please sign pended labs for 6 week f/u if agreeable-will draw with CT today Thank You! Chloe Ivey RN [facility]08-15-2024 Miscellaneous Notes* Telephone Encounter - Chloe Ivey RN - 04/18/2024 7:08 AM EDT Please sign pended labs for 6 week f/u if agreeable-will draw with CT today Thank You! Chloe Ivey RN documented in this encounterAcmc Healthcare System06-28-2024 Instructions* Patient Instructions* Rima Kapoor - 03/01/2024 2:45 PM EDT RTC in [address] Chest with labs same day Continue follow up with GI documented in this encounterAcmc Healthcare System06-28-2024 History of Present illness Narrative* Linette Bai MD - 03/01/2024 2:30 PM EDT Images from the original note were not included. NAME: Doc Burns [facility] NO.: [id number] DATE OF SERVICE: March 01, 2024 (Zac) Some elements in this clinic note that are critical to medical decision making have been carefully reviewed and included from a prior clinic note dated: November 17, 2023 (Zac) Referring Provider: Dr. Shaikh Etienne Additional Clinicians involved in Dco Burns's care: Richard Lentz DO DIAGNOSIS: lung cancer ASSESSMENT: 73 [...] below PET resolution stable. 05/30/2023 - EGD ([facility]): Duodenum: Mild bulbar duodenitis, otherwise normal. Stomach: [...] Fat-containing right inguinal hernia. 04/22/2021 - Colonoscopy ([facility]): Large blanketing polyp ascending, removed with a [...] other disease. Updated Visit, March 01, 2024: Doc returns with his sister, Maria Teresa. Recent [...] last visit. Updated Visit, November 17, 2023: Doc returns today with Bari. CT shows significant [...] weight gain. Updated Visit, August 11, 2023: Doc returns today for follow up, says he is hanging in there. He has gained weight, but reports that he has not been eating nearly as much. Had his EGD done on 05/30/2023. Results: gastritis. Positive stool test showing H. Pylori. PET last week looks good. It was recommended he follow up with [facility] for next imaging due to the [...] not anemic. Updated Visit, May 05, 2023: Doc returns with his Sister Maria Teresa today and seems to be doing well. He is in good spirits. PET/CT was reviewed Shows improvement of bilateral pulmonary nodules. However the abdomen and pelvis demonstrate persistent uptake at the distal stomach/proximal duodenum and likely needs upper endoscopy. Updated Visit, March 03, 2023: Doc returns with his son during and his [...] 2022: Telephone only for 5 mins Called Doc as requested. Reviewed findings of liver resection [...] him today. Updated Visit, June 25, 2021: Doc Burns returns for follow up. There has [...] of himself that he can. 04/22/2021 Colonoscopy ([facility]) Results scanned to [facility] 06/04/2021 Updated Visit, February 05, 2021: Doing well overall but still smokes. We reviewed his CT scans from 02/01/2021 which shows no evidence of recurrent diseaes but will need follow up for bilateral small pulmonary nodules. Initial Visit, January 13, 2021: Doc Burns presents today for Hematology and Oncology [...] colonoscopy. PATHOLOGY/MOLECULAR DATA 01/10/2022 Partial liver resection: [id number] Order: [id number] Collected 01/10/2022 11:56 AM Status: Final result [...] A3-A4 remainderof specimen. Gross examination performed at [facility], [address] [place] [address] CLIA# [id number] [facility] January 12, 2022 9:23 AM REVIEW OF [...] which included preparing to see the patient, [id number] patient care, completing clinical documentation, performing a medically appropriate examination, counseling and educating the patient/family/caregiver, ordering medications, tests, or p rocedures, communicating with other HCPs (not separately reported), independently interpreting results (not separately reported), and communicating results to the patient/family/caregiver. Linette Bai MD, CPE Hematology and Oncology Services Provided at: [place], [place] Scribe Attestation: This note was scribed by Rima Kapoor on March 01, 2024 under the direction and supervision of Dr. Linette Bai. I attest that all of the information documented is correct to the best of my knowledge. Provider Attestation: I, Linette Bai MD, attest that all information documented by the above scribe is correct, and was supervised by me and under my direction. CC: Shaikh Lowell [address] [place] [address] Richard Lentz, DO Krzysztof Queen documented in this encounterAcmc Healthcare System06-21-2024 History of Present illness Narrative* Chloe Ivey [...] Intact SIGNATURE: Chloe Ivey RN PATIENT NAME: Doc Burns DATE: February 23, 2024 TIME: 12:17 PM * Charla Worrell RT(R) - 02/23/2024 12:15 PM EDT Radiology Service Progress Note PATIENT NAME: Doc Burns DATE OF SERVICE: February 23, 2024 [...] PATIENT PRESENTS WITH AN IMPLANTABLE OR ATTACHED COOPERATIVE MANAGER: No RADIOLOGY DEPARTMENT: CT; Exam(s) Completed: Chest Abdomen Pelvis PERIPHERAL IV DATA: Site assessment: Clean,Dry and Intact, Site disposition Discontinued SIGNED BY: RT Darius(R) February 23, 2024 1:41 PM documented in this encounterAcmc Healthcare System03-15-2024 Instructions* Patient Instructions* Rima Kapoor - 11/17/2023 3:12 PM EDT RTC in [address] CAP with labs 1 week prior Continue follow up with GI Need most recent record from [facility] documented in this encounterAcmc Healthcare System03-15-2024 History of Present illness Narrative* Linette Bai MD - 11/17/2023 2:30 PM EDT Images from the original note were not included. NAME: Doc uBrns [facility] NO.: [id number] DATE OF SERVICE: November 17, 2023 (Zac) Some elements in this clinic note that are critical to medical decision making have been carefully reviewed and included from a prior clinic note dated: August 11, 2023 (Zac) Referring Provider: Dr. Shaikh Etienne Additional Clinicians involved in Doc Burns's care: Richard Lentz DO DIAGNOSIS: lung cancer ASSESSMENT: 73 [...] with GI Need most recent record from [facility] HPI: Case History: 11/10/2023 - CT Chest: [...] below PET resolution stable. 05/30/2023 - EGD ([facility]): Duodenum: Mild bulbar duodenitis, otherwise normal. Stomach: [...] Fat-containing right inguinal hernia. 04/22/2021 - Colonoscopy ([facility]): Large blanketing polyp ascending, removed with a [...] other disease. Updated Visit, November 17, 2023: Doc returns today with Bari. CT shows significant [...] weight gain. Updated Visit, August 11, 2023: Doc returns today for follow up, says he is hanging in there. He has gained weight, but reports that he has not been eating nearly as much. Had his EGD done on 05/30/2023. Results: gastritis. Positive stool test showing H. Pylori. PET last week looks good. [facility] due [facility] small [...] not anemic. Updated Visit, May 05, 2023: Doc returns with his Sister Maria Teresa today and seems to be doing well. He is in good spirits. PET/CT was reviewed Shows improvement of bilateral pulmonary nodules. However the abdomen and pelvis demonstrate persistent uptake at the distal stomach/proximal duodenum and likely needs upper endoscopy. Updated Visit, March 03, 2023: Doc returns with his son during and his [...] 2022: Telephone only for 5 mins Called Doc as requested. Reviewed findings of liver resection [...] him today. Updated Visit, June 25, 2021: Doc Burns returns for follow up. There has [...] of himself that he can. 04/22/2021 Colonoscopy ([facility]) Results scanned to [facility] 06/04/2021 Updated Visit, February 05, 2021: Doing well overall but still smokes. We reviewed his CT scans from 02/01/2021 which shows no evidence of recurrent diseaes but will need follow up for bilateral small pulmonary nodules. Initial Visit, January 13, 2021: Doc Burns presents today for Hematology and Oncology [...] colonoscopy. PATHOLOGY/MOLECULAR DATA 01/10/2022 Partial liver resection: [id number] Order: [id number] Collected 01/10/2022 11:56 AM Status: Final result [...] A3-A4 remainderof specimen. [facility] performed at [facility], [address] [facility] [address] CLIA# [id number] [facility] January 12, 2022 9:23 AM REVIEW [...] which included preparing to see the patient, [id number] patient care, completing clinical documentation, performing a medically appropriate examination, counseling and educating the patient/family/caregiver, ordering medications, tests, or p rocedures, communicating with other HCPs (not separately reported), independently interpreting results (not separately reported), and communicating results to the patient/family/caregiver. Linette Bai MD, CPE Hematology and Oncology Services Provided at: [place], [place] Scribe Attestation: This note was scribed by Rima Kapoor on November 17, 2023 under the direction and supervision ofDr. Linette Bai. I attest that all of the information documented is correct to the best of my knowledge. Provider Attestation: I, Linette Bai MD, attest that all information documented by the above scribe is correct, and was supervised by me and under my direction. CC: Shaikh Lowell [address] [facility] [address] Richard Lentz, DO Krzysztof Queen documented in this encounterAcmc Healthcare System03-11-2024 Miscellaneous Notes* Telephone Encounter - Adenike Rosas RN - 11/13/2023 8:51 AM EDT Pt informed of Darleen's message and denies any questions, needs or concerns at this time. Appointment verified. Adenike Rosas RN * Telephone Encounter - Adenike Rosas RN - 11/13/2023 8:51 AM EDT ----- Message from Linette Bai MD sent at 11/11/2023 9:37 AM EST ----- CT Scan looking better and better! documented in this encounterAcmc Healthcare System03-08-2024 History of Present illness Narrative* Car Cohen, RT(R) - 11/10/2023 12:45 PM EST Radiology Service Progress Note PATIENT NAME: Doc Burns DATE OF SERVICE: November 10, 2023 [...] PATIENT PRESENTS WITH AN IMPLANTABLE OR ATTACHED COOPERATIVE MANAGER: No RADIOLOGY DEPARTMENT: CT; Exam(s) Completed: Chest [...] Intact SIGNATURE: Chloe Ivey RN PATIENT NAME: Doc Burns DATE: November 10, 2023 TIME: 12:34 PM documented in this encounterAcmc Healthcare System03-08-2024 Miscellaneous Notes* Addendum Note - Chloe Ivey RN - 11/10/2023 12:45 PM ESTEncounter addended by: Chloe Ivey RN on: 11/10/2023 12:34 PM Actions taken: Clinical Note Signed documented in this encounterAcmc Healthcare System03-08-2024 Note* Addendum Note - Chloe Ivey RN - 11/10/2023 12:45 PM ESTEncounter addended by: Chloe Ivey RN on: 11/10/2023 12:34 PM Actions taken: Clinical Note Signed [facility]12-15-2023 Miscellaneous Notes* Telephone Encounter - Livier Wolfe RN - 08/18/2023 11:17 AM EST [facility]anh [facility] called and stated referral sent is missing pages. Oanh stated they were having fax issues. Please re-fax referral to them at fax: [phone] * Telephone Encounter - ZEESHAN Mccall - 08/18/2023 11:17 AM EST [facility] Telephone encounter Note* Telephone Encounter - Livier Wolfe RN - 08/18/2023 11:17 AM EST Onah from [facility] called and stated referral sent is missing pages. Oanh stated they were having fax issues. Please re-fax referral to them at fax: [phone] [facility]12-15-2023 Telephone encounter Note* Telephone Encounter - ZEESHAN Mccall - 08/18/2023 11:17 AM EST Office note [facility]12-11-2023 Evaluation note* Encounter Date Diagnosis Assessment Notes Treatment Notes Treatment Clinical Notes Aug, H. pylori infection (ICD-10 - A0 4.8) Pt states the omeprazole is working well for him. Pt states he is not having daily bowel movements. Pt advised to use miralax once a day if he is having trouble going. Repeat daily until he has a bowel movement. Pt to continue the omeprazole and add miralax with it. Pt RTO in 3 months [facility] 12-08-2023 Miscellaneous Notes* Telephone Encounter - Iliana Villarreal RN - 08/11/2023 4:40 PM EST Please refer to following encounter for details and follow up Iliana Villarreal RN * Telephone Encounter - Linette Bai MD - 08/11/2023 4:35 PM EST Plenty of other options - dulcolax, miralax combo. * Telephone Encounter - Iliana Villarreal RN - 08/11/2023 3:21 PM EST Call received from Chiara @[employer] to inform that Mag citrate has been a backordered item for a while and not available. Would you like to order something else? FYI we do have 2 bottles here but pharmacy closes at 4 and [place] Advise Iliana Villarreal RN documented in this encounterAcmc Healthcare System12-08-2023 Instructions* Patient Instructions* Ling Muhammad - 08/11/2023 2:58 PM EST Trial of magnesium citrate to clear out. Triage to call Monday. If no success, will order CT A/P. Labs and CT Chest in 3 months. RTC 1 week after labs and scan. documented in this encounterAcmc Healthcare System12-08-2023 History of Present illness Narrative* Linette Bai MD - 08/11/2023 2:40 PM EST Images from the original note were not included. NAME: Doc Burns [facility] NO.: [id number] DATE OF SERVICE: August 11, 2023 ([facility]) Some elements in this clinic note that are critical to medical decision making have been carefully reviewed and included from a prior clinic note dated: May 05, 2023 (Zac) Referring Provider: Dr. Shaikh Etienne Additional Clinicians involved in Doc Burns's care: Richard Lentz DO DIAGNOSIS: lung cancer ASSESSMENT: 73 [...] Follow-up with CT advised. 05/30/2023 - EGD ([facility]): Duodenum: Mild bulbar duodenitis, otherwise normal. Stomach: [...] Fat-containing right inguinal hernia. 04/22/2021 - Colonoscopy ([facility]): Large blanketing polyp ascending, removed with a [...] other disease. Updated Visit, August 11, 2023: Doc returns today for follow up, says he is hanging in there. He has gained weight, but reports that he has not been eating nearly as much. Had his EGD done on 05/30/2023. Results: gastritis. Positive stool test showing H. Pylori. PET last week looks good. [facility] due to the small [...] not anemic. Updated Visit, May 05, 2023: Doc returns with his Sister Maria Teresa today and seems to be doing well. He is in good spirits. PET/CT was reviewed Shows improvement of bilateral pulmonary nodules. However the abdomen and pelvis demonstrate persistent uptake at the distal stomach/proximal duodenum and likely needs upper endoscopy. Updated Visit, March 03, 2023: Doc returns with his son during and his [...] 2022: Telephone only for 5 mins Called Doc as requested. Reviewed findings of liver resection [...] him today. Updated Visit, June 25, 2021: Doc Burns returns for follow up. There has [...] of himself that he can. 04/22/2021 Colonoscopy ([facility]) Results scanned to [facility] 06/04/2021 Updated Visit, February 05, 2021: Doing well overall but still smokes. We reviewed his CT scans from 02/01/2021 which shows no evidence of recurrent diseaes but will need follow up for bilateral small pulmonary nodules. Initial Visit, January 13, 2021: Doc Burns presents today for Hematology and Oncology [...] colonoscopy. PATHOLOGY/MOLECULAR DATA 01/10/2022 Partial liver resection: [id number] Order: [id number] Collected 01/10/2022 11:56 AM Status: Final result [...] A3-A4 remainderof specimen. Gross examination performed at [facility], [address] [place] [address] IA# [id number] [facility] January 12, 2022 9:23 AM REVIEW OF [...] which included preparing to see the patient, [id number] patient care, completing clinical documentation, performing a medically appropriate examination, counseling and educating the patient/family/caregiver, ordering medications, tests, or p rocedures, communicating with other HCPs (not separately reported), independently interpreting results (not separately reported), and communicating results to the patient/family/caregiver. Linette Bai MD, CPE Services Provided at: [facility], [place], [place] & [place], [place] Scribe Attestation: This note was scribed by Ling Muhammad on August 11, 2023 under the direction and supervision of Dr. Linette Bai. I attest that all of the information documented is correct to the best of my knowledge. Provider Attestation: I, Linette Bai MD, attest that all information documented by the above scribe is correct, and was supervised by me and under my direction. CC: Shaikh Lowell [address] [place] [address] Richard Lentz, DO Krzysztof Queen documented in this encounterAcmc Healthcare System12-01-2023 History of Present illness Narrative* Charla Worrell RT(R) - 08/04/2023 1:30 PM EST RADIOLOGY SERVICE PROGRESS NOTE SERVICE DATE: 08/04/2023 SERVICE TIME: 1:43 PM PATIENT IDENTITY VERIFICATION COMPLETED USING TWO (2) STANDARD IDENTIFIERS: Name and Date of confirmed by patient verbally POST EXAM PIV STATUS: Discontinued PROCEDURE TYPE: NM INJECT: PET/CT BODY SCAN. 10.8 mCi F18 FDG. No other medications given.. ADMINISTRATION TIME: 1326 PATIENT DISCHARGED TO: Ambulatory patient, left [place] department area. A Diagnostic radioactive procedure has taken place, with no further precautions necessary other than routine body substance precautions. More information regarding radiation safety can be found usingthis link: [email or web address] 20Diagnostic%20Nuclear%20Medicine%20Procedures.pdf SIGNATURE: RT Darius(R) PATIENT NAME: Doc Burns DATE: August 04, 2023 TIME: 1:43 [...] Intact SIGNATURE: Chloe Ivey RN PATIENT NAME: Doc Burns DATE: August 04, 2023 TIME: 1:49 PM documented in this encounterAcmc Healthcare System09-26-2023 Procedure [facility]09-18-2023 Miscellaneous Notes* Telephone Encounter - Karen Ugarte - 05/22/2023 1:25 PM EDT Called [facility] spoke with Gita. Patient is scheduled for EGD with Dr. Spring on 05/30. Karen Hernandez * Telephone Encounter - Karen Ugarte - 05/18/2023 10:44 AM EDT Called [facility] spoke with Jaylene. They have received this referral and their broadcast traffic coordinator will be calling patient to get scheduled. Karen Hernandez * Telephone Encounter - Gale Mahoney - 05/16/2023 2:19 PM EDT Records faxed to [facility]. * Telephone Encounter - Karen Ugarte - 05/10/2023 8:30 AM EDT Katty: Information ready for you. Karen Hernandez * Telephone Encounter - Jasen Laughlin - 05/05/2023 3:11 PM EDT Refer to GI for upper endoscopy for positive PET/CT Katty/Agustín: Can you please refer patient and follow up? He states he has seen Dr. Queen in the past but would prefer to stay locally still. Jasen Laughlin documented in this encounterAcmc Healthcare System09-01-2023 Instructions* Patient Instructions* Linette Bai MD - 05/05/2023 2:56 PM EDT Refer to GI for upper endoscopy for positive PET/CT Repeat PET in 3 months labs same day. documented in this encounterAcmc Healthcare System09-01-2023 History of Present illness Narrative* Linette Bai MD - 05/05/2023 2:36 PM EDT Images from the original note were not included. NAME: Doc Burns [facility] NO.: [id number] DATE OF SERVICE: May 05, 2023 (Zac) Some elements in this clinic note that are critical to medical decision making have been carefully reviewed and included from a prior clinic note dated: March 03, 2023 (Zac) Referring Provider: Dr. Shaikh Etienne Additional Clinicians involved in Doc Burns's care: Richard Lentz DO CC: lung cancer ASSESSMENT: 73 [...] 6-month gap between resection and presentation to nm. He remains at high risk because of [...] day. HPI: Updated Visit, May 05, 2023: Doc returns with his Sister Maria Teresa today and seems to be doing well. He is in good spirits. PET/CT was reviewed Shows improvement of bilateral pulmonary nodules. However the abdomen and pelvis demonstrate persistent uptake at the distal stomach/proximal duodenum and likely needs upper endoscopy. Updated Visit, March 03, 2023: Doc returns with his son during and his [...] 2022: Telephone only for 5 mins Called Doc as requested. Reviewed findings of liver resection [...] him today. Updated Visit, June 25, 2021: Doc Burns returns for follow up. There has [...] of himself that he can. 04/22/2021 Colonoscopy ([facility]) Results scanned to [facility] 06/04/2021 Updated Visit, February 05, 2021: Doing well overall but still smokes. We reviewed his CT scans from 02/01/2021 which shows no evidence of recurrent diseaes but will need follow up for bilateral small pulmonary nodules. Initial Visit, January 13, 2021: Doc Burns presents today for Hematology and Oncology [...] 02, 2022 1. 01/10/2022 Partial liver resection: [id number] Order: [id number] Collected 01/10/2022 11:56 AM Status: Final result [...] A3-A4 remainderof specimen. Gross examination performed at [facility], [facility], [facility] [address] CLIA# [id number] [facility] January 12, 2022 9:23 AM REVIEW [...] which included preparing to see the patient, [id number] patient care, completing clinical documentation, performing a medically appropriate examination, counseling and educating the patient/family/caregiver, ordering medications, tests, or p rocedures, communicating with other HCPs (not separately reported), independently interpreting results (not separately reported), and communicating results to the patient/family/caregiver. Linette Bai MD, CPE Services Provided at: [place], [place] & [place], [place] CC: Shaikh Lowell [address] [facility] [address] Richard Lentz, DO Krzysztof Queen documented in this encounterAcmc Healthcare System08-25-2023 History of Present illness Narrative* Chloe Ivey [...] Intact SIGNATURE: Chloe Ivey RN PATIENT NAME: Doc Burns DATE: April 28, 2023 TIME: 1:24 PM * Charla Worrell RT(R) - 04/28/2023 1:30 PM EDT RADIOLOGY SERVICE PROGRESS NOTE SERVICE DATE: 04/28/2023 SERVICE TIME: 2:06 PM PATIENT IDENTITY VERIFICATION COMPLETED USING TWO (2) STANDARD IDENTIFIERS: Name and Date of confirmed by patient verbally POST EXAM PIV STATUS: Discontinued PROCEDURE TYPE: NM INJECT: PET/CT BODY SCAN. 10.8 mCi F18 FDG. No other medications given.. ADMINISTRATION TIME: 1317 PATIENT DISCHARGED TO: Ambulatory patient, left [place] department area. A Diagnostic radioactive procedure has taken place, with no further precautions necessary other than routine body substance precautions. More information regarding radiation safety can be found usingthis link: [email or web address] 20Diagnostic%20Nuclear%20Medicine%20Procedures.pdf SIGNATURE: RT Darius(R) PATIENT NAME: Doc Burns DATE: April 28, 2023 TIME: 2:06 PM PAGER/CONTACT #: documented in this encounterAcmc Healthcare System06-30-2023 Instructions* Patient Instructions* Linette Bai MD - 03/03/2023 2:21 PM EDT PET/CT in 8 weeks and return after to review. documented in this encounterAcmc Healthcare System06-30-2023 History of Present illness Narrative* Linette Bai MD - 03/03/2023 2:09 PM EDT Images from the original note were not included. NAME: Doc Burns CLINIC NO.: [id number] DATE OF SERVICE: March 03, 2023 (Zac) Some elements in this clinic note that are critical to medical decision making have been carefully reviewed and included from a prior clinic note dated: January 04, 2023 (Zac) Referring Provider: Dr. Shaikh Etienne Additional Clinicians involved in Doc Burns's care: Richard Lentz DO CC: lung cancer ASSESSMENT: 73 [...] 6-month gap between resection and presentation to nm. He remains at high risk because of [...] review. HPI: Updated Visit, March 03, 2023: Doc returns with his son during and his [...] 2022: Telephone only for 5 mins Called Doc as requested. Reviewed findings of liver resection [...] him today. Updated Visit, June 25, 2021: Doc Burns returns for follow up. There has [...] of himself that he can. 04/22/2021 Colonoscopy ([facility]) Results scanned to [facility] 06/04/2021 Updated Visit, February 05, 2021: Doing well overall but still smokes. We reviewed his CT scans from 02/01/2021 which shows no evidence of recurrent diseaes but will need follow up for bilateral small pulmonary nodules. Initial Visit, January 13, 2021: Doc Burns presents today for Hematology and Oncology [...] 02, 2022 1. 01/10/2022 Partial liver resection: [id number] Order: [id number] Collected 01/10/2022 11:56 AM Status: Final result [...] A3-A4 remainderof specimen. Gross examination performed at [facility], [address] [place], [place] [id number] CLIA# [id number] [facility] January 12, 2022 9:23 AM REVIEW [...] which included preparing to see the patient, mzub-he-fgnc patient care, completing clinical documentation, performing a medically appropriate examination, counseling and educating the patient/family/caregiver, ordering medications, tests, or p rocedures, communicating with other HCPs (not separately reported), independently interpreting results (not separately reported), and communicating results to the patient/family/caregiver. Linette Bai MD, CPE Services Provided at: [facility], [place], [place] & [facility], [place], [place] CC: Shaikh Lowell [place] [address] Richard Lentz, DO Krzysztof Parisnaga documented in this encounterAcmc Healthcare System06-20-2023 History of Present illness Narrative* Adenike Rosas RN - 02/21/2023 10:45 AM EDT [...] Intact SIGNATURE: Adenike Rosas RN PATIENT NAME: Doc Burns DATE: February 21, 2023 TIME: 10:44 AM * Charla Worrell RT(Arslan) - 02/21/2023 10:45 AM EDT RADIOLOGY SERVICE PROGRESS NOTE SERVICE DATE: 02/21/2023 SERVICE TIME: 10:46 AM PATIENT IDENTITY VERIFICATION COMPLETED USING TWO (2) STANDARD IDENTIFIERS: Name and Date of confirmed by patient verbally POST EXAM PIV STATUS: Discontinued PROCEDURE TYPE: NM INJECT: PET/CT BODY SCAN. 10.4 mCi F18 FDG. No other medications given.. ADMINISTRATION TIME: 1041 PATIENT DISCHARGED TO: Ambulatory patient, left [place] department area. A Diagnostic radioactive procedure has taken place, with no further precautions necessary other than routine body substance precautions. More information regarding radiation safety can be found usingthis link: [email or web address]%20Nuclear%20Medicine%20Procedures.pdf SIGNATURE: RT Darius(Arslan) PATIENT NAME: Doc Burns DATE: February 21, 2023 TIME: 10:46 AM PAGER/CONTACT #: documented in this encounterAcmc Healthcare System05-03-2023 Instructions* Patient Instructions* Linette Bai MD - 01/04/2023 2:40 PM EDT 1. Call with CT results documented in this encounterAcmc Healthcare System05-03-2023 History of Present illness Narrative* Linette Bai MD - 01/04/2023 1:59 PM EDT Images from the original note were not included. NAME: Doc Burns CLINIC NO.: [id number] DATE OF SERVICE: January 04, 2023 (Zac) Some elements in this clinic note that are critical to medical decision making have been carefully reviewed and included from a prior clinic note dated: November 22, 2022 & October 07, 2022 (ivonnerobert) Referring Provider: Dr. Shaikh Etienne Additional Clinicians involved in Doc Burns's care: Richard Lentz DO CC: lung cancer ASSESSMENT: 72 [...] 6-month gap between resection and presentation to nm. He remains at high risk because of [...] 2022: Telephone only for 5 mins Called Doc as requested. Reviewed findings of liver resection [...] him today. Updated Visit, June 25, 2021: Doc Burns returns for follow up. There has [...] of himself that he can. 04/22/2021 Colonoscopy ([facility]) Results scanned to [facility] 06/04/2021 Updated Visit, February 05, 2021: Doing well overall but still smokes. We reviewed his CT scans from 02/01/2021 which shows no evidence of recurrent diseaes but will need follow up for bilateral small pulmonary nodules. Initial Visit, January 13, 2021: Doc Burns presents today for Hematology and Oncology [...] 02, 2022 1. 01/10/2022 Partial liver resection: [id number] Order: [id number] Collected 01/10/2022 11:56 AM Status: Final result [...] A3-A4 remainderof specimen. Gross examination performed at [facility], [facility] [address] CLIA# [id number] [facility] January 12, 2022 9:23 AM REVIEW [...] which included preparing to see the patient, fxzl-ti-pcym patient care, completing clinical documentation, performing a medically appropriate examination, counseling and educating the patient/family/caregiver, ordering medications, tests, or p rocedures, communicating with other HCPs (not separately reported), independently interpreting results (not separately reported), and communicating results to the patient/family/caregiver. Linette Bai MD, CPE Services Provided at: [facility], [place], [place] & [place], [place] CC: Shaikh Lowell [address] [place] [address] Richard Lentz DO David Hykes documented in this encounterAcmc Healthcare System05-03-2023 History of Present illness Narrative* Charla Worrell RT(R) - 01/04/2023 12:15 PM EDT Radiology Service Progress Note PATIENT NAME: Doc Burns DATE OF SERVICE: January 04, 2023 [...] January 04, 2023 12:36 PM * Cinthya Patel RN - 01/04/2023 12:15 PM EDT Radiology [...] SITE APPEARANCE: Clean,Dry and Intact SIGNATURE: Cinthya Patel RN PATIENT NAME: Doc Burns DATE: January 04, 2023 TIME: 1:01 PM documented in this encounterAcmc Healthcare System03-22-2023 Miscellaneous Notes* Telephone Encounter - Karen Sanchez [facility] - 11/23/2022 9:[address] Lentz office spoke with Russel. He states they have received this referral and have patient scheduled with Dr Lentz at their [place] office on 02/02 @ 2:30. Karen Sanchez Pss * Telephone Encounter - Gale Pereira [facility] - 11/22/2022 1:14 PM EDT Records faxed to Dr. Lentz. * Telephone Encounter - Judy Morrison - 11/22/2022 11:29 AM EDT Patient called back states he is sorry he forgot and did r/s to requestd dates thank you * Telephone Encounter - Judy Fortune Sec - 11/22/2022 10:53 AM EDT Images from the original note were not included. Linette Bai MD [facility] Clerical Pool Follow-up with Dr. Fatou Lentz for BAL and cultures in [place]. Please include pathology reports from 2020 for [...] records to [place] thanks! documented in this encounterAcmc Healthcare System03-21-2023 Instructions* Patient Instructions* Linette Bai MD - 11/22/2022 10:39 AM EDT Follow-up with Dr. Fatou Lentz for BAL and cultures in [place]. Please include pathology reports from 2020 for her to review. (Scanned on 01/12/2021) Cancel CT and visit with for tomorrow and reschedule them to 6 weeks further out please. documented in this encounterAcmc Healthcare System03-21-2023 History of Present illness Narrative* Linette Bai MD - 11/22/2022 10:14 AM EDT AMBULATORY TELEPHONE VISIT Doc Burns has consented to this telephone encounter. [...] Fatou Lentz for BAL and cultures in [place]. Please include pathology reports from 2020 for her to review. (Scanned on 01/12/2021) Cancel CT and visit with for tomorrow and reschedule them to 6 weeks further out please. Total Time Spent: 25 minutes Linette Bai MD CC: Richard Lentz documented in this encounterAcmc Healthcare System02-28-2023 Miscellaneous Notes* Telephone Encounter - Gale Pereira [facility] - 11/01/2022 1:22 PM EST Updated notes and scans faxed to Dr. Lentz. documented in this encounterAcmc Healthcare System02-14-2023 Instructions* Patient Instructions* Linette Bai MD - 10/18/2022 6:12 PM EST Keep plans for CT's in 8 weeks as scheduled and follow up with me in November afterwards. documented in this encounterAcmc Healthcare System02-03-2023 History of Present illness Narrative* Linette Bai MD - 10/07/2022 3:38 PM EST Images from the original note were not included. NAME: Doc Burns CLINIC NO.: [id number] DATE OF SERVICE: October 07, 2022 (nory) Some elements in this clinic note that are critical to medical decision making have been carefully reviewed and included from a prior clinic note dated: September 15, 2022 (Zac) Referring Provider: Dr. Shaikh Etienne Additional Clinicians involved in Doc Burns's care: Richard Lentz DO CC: lung cancer ASSESSMENT: 72 [...] 2022: Telephone only for 5 mins Called Doc as requested. Reviewed findings of liver resection [...] him today. Updated Visit, June 25, 2021: Doc Burns returns for follow up. There has [...] of himself that he can. 04/22/2021 Colonoscopy ([facility]) Results scanned to [facility] 06/04/2021 Updated Visit, February 05, 2021: Doing well overall but still smokes. We reviewed his CT scans from 02/01/2021 which shows no evidence of recurrent diseaes but will need follow up for bilateral small pulmonary nodules. Initial Visit, January 13, 2021: Doc Burns presents today for Hematology and Oncology [...] 02, 2022 1. 01/10/2022 Partial liver resection: [id number] Order: [id number] Collected 01/10/2022 11:56 AM Status: Final result [...] A3-A4 remainderof specimen. Gross examination performed at [facility], [address] [place] [id number] CLIA# [id number] [facility] January 12, 2022 9:23 AM REVIEW [...] which included preparing to see the patient, [id number] patient care, completing clinical documentation, performing a medically appropriate examination, counseling and educating the patient/family/caregiver, ordering medications, tests, or p rocedures, communicating with other HCPs (not separately reported), independently interpreting results (not separately reported), and communicating results to the patient/family/caregiver. Linette Bai MD, CPE Services Provided at: [facility], [place], [place] & [facility] hospital, [place], [place] CC: Shaikh Lowell [address] [place] [address] Richard Lentz, DO [address] [id number] Krzysztof Queen documented in this encounterAcmc Healthcare System01-27-2023 History of Present illness Narrative* Cinthya Patel RN - 09/30/2022 12:15 PM EST Radiology [...] SITE APPEARANCE: Clean,Dry and Intact SIGNATURE: Cinthya Patel RN PATIENT NAME: Doc Burns DATE: September 30, 2022 TIME: 12:15 PM * Charla Worrell RT(R) - 09/30/2022 12:15 PM EST RADIOLOGY SERVICE PROGRESS NOTE SERVICE DATE: 09/30/2022 SERVICE TIME: 12:53 PM PATIENT IDENTITY VERIFICATION COMPLETED USING TWO (2) STANDARD IDENTIFIERS: Name and Date of confirmed by patient verbally POST EXAM PIV STATUS: Discontinued PROCEDURE TYPE: NM INJECT: PET/CT BODY SCAN. 10.8 mCi F18 FDG. No other medications given.. ADMINISTRATION TIME: 1225 PATIENT DISCHARGED TO: Ambulatory patient, left [place] department area. A Diagnostic radioactive procedure has taken place, with no further precautions necessary other than routine body substance precautions. More information regarding radiation safety can be found usingthis link: [email or web address]-% 20Diagnostic%20Nuclear%20Medicine%20Procedures.pdf SIGNATURE: RT Darius(R) PATIENT NAME: Doc Burns DATE: September 30, 2022 TIME: 12:53 PM PAGER/CONTACT #: documented in this encounterAcmc Healthcare System01-16-2023 Miscellaneous Notes* Telephone Encounter - Evangelina Sim RN - 09/19/2022 10:42 AM EST Handled in another encounter. Evangelina Sim RN * Telephone Encounter - Evangelina Sim RN - 09/19/2022 10:38 AM EST Images from the original note were not included. MD Evangelina Prabhakar RN; P [facility] Clerical Pool Mario Alberto Hutchinson - can you please call him and tell him that the multiple lesions in his lungs are too small to biopsy by bronchoscopy or by CT guidance, so we will get a baseline PET/CT soon and continue CTscans - next one in 8 weeks documented in this encounterAcmc Healthcare System01-16-2023 Miscellaneous Notes* Telephone Encounter - Jasen Laughlin - 09/19/2022 9:48 AM EST Patient has been scheduled for 09/30. Patient has been notified. Jasen Laughlin * Telephone Encounter - Charla Jama RN - 09/19/2022 8:06 AM EST Clerical: PET orders placed. Please schedule. Thanks! Charla Jama RN * Telephone Encounter - Linette Bai MD - 09/16/2022 5:18 PM EST [...] not included. Luis Antonio Carter MD You; Linette Bai MD; Loan Sanchez 11 hours ago (9:45 PM) Linette, I'd be happy to see this patient, [...] Thanks Team! Jasen Laughlin documented in this encounterAcmc Healthcare System01-13-2023 Miscellaneous Notes* Telephone Encounter - Jasen Laughlin - 09/16/2022 9:15 AM EST Patient has been scheduled for PET scan on 09/30. Patient notified. Jasen Laughlin * Telephone Encounter - hCarla Jama RN - 09/16/2022 9:08 AM EST Pt notified and verbalizes understanding. Agrees to PET scan. Clerical: Please schedule and call pt w/ the appointment. Charla Jama RN * Telephone Encounter - Linette Bai MD - 09/15/2022 5:41 PM EST [...] for PET? Jasen Laughlin documented in this encounterAcmc Healthcare System01-12-2023 History of Present illness Narrative* Cinthya Patel RN - 09/15/2022 1:30 PM EST Radiology [...] SITE APPEARANCE: Clean,Dry and Intact SIGNATURE: Cinthya Patel RN PATIENT NAME: Doc Burns DATE: September 15, 2022 TIME: 1:34 PM * Charla Worrell RT(R) - 09/15/2022 1:30 PM EST Radiology Service Progress Note PATIENT NAME: Doc Burns DATE OF SERVICE: September 15, 2022 [...] BY: RT Darius(R) September 15, 2022 1:35 PM documented in this encounterAcmc Healthcare System11-17-2022 Instructions* Patient Instructions* Linette Bai MD - 07/21/2022 2:[address] chest in 8 weeks Labs same day RTC same day after scan documented in this encounterAcmc Healthcare System11-17-2022 History of Present illness Narrative* Linette Bai MD - 07/21/2022 1:45 PM EST Images from the original note were not included. NAME: Doc Burns [facility] NO.: [id number] DATE OF SERVICE: July 21, 2022 (Zac) Some elements in this clinic note that are critical to medical decision making have been carefully reviewed and included from a prior clinic note dated: March 31, 2022 (Zac) Referring Provider: Dr. Shaikh Etienne Additional Clinicians involved in Doc Burns's care: Richard Lentz, CC: lung cancer ASSESSMENT: 72 year [...] 6-month gap between resection and presentation to nm. He remains at high risk because of [...] 2022: Telephone only for 5 mins Called Doc as requested. Reviewed findings of liver resection [...] him today. Updated Visit, June 25, 2021: Doc Burns returns for follow up. There has [...] of himself that he can. 04/22/2021 Colonoscopy ([facility]) Results scanned to [facility] 06/04/2021 Updated Visit, February 05, 2021: Doing well overall but still smokes. We reviewed his CT scans from 02/01/2021 which shows no evidence of recurrent diseaes but will need follow up for bilateral small pulmonary nodules. Initial Visit, January 13, 2021: Doc Burns presents today for Hematology and Oncology [...] 02, 2022 1. 01/10/2022 Partial liver resection: [id number] Order: [id number] Collected 01/10/2022 11:56 AM Status: Final result [...] A3-A4 remainderof specimen. Gross examination performed at [facility], [address] [place] [address] CLIA# [id number] [facility] January 12, 2022 9:23 AM REVIEW OF [...] which included preparing to see the patient, [id number] patient care, completing clinical documentation, performing a medically appropriate examination, counseling and educating the patient/family/caregiver, ordering medications, tests, or p rocedures, and independently interpreting results (not separately reported). Linette Bai MD, CPE Services Provided at: [facility], [place], [place] & [place], [place] CC: Shaikh Lowell [address] [facility] [address] Richard Lentz M, DO [address] [id number] Krzysztof Queen documented in this encounterAcmc Healthcare System11-10-2022 History of Present illness Narrative* Charla Worrell, RT(R) - 07/14/2022 1:30 PM EST RADIOLOGY [...] contrast PATIENT DISCHARGED TO: Ambulatory patient, left [place] department area. A Diagnostic radioactive procedure has taken place, with no further precautions necessary other than routine body substance precautions. More information regarding radiation safety can be found usingCommutables link: [email or web address]%[email or web address]-% 20Diagnostic%20Nuclear%20Medicine%20Procedures.pdf SIGNATURE: RT Darius(Arslan) PATIENT NAME: Doc Burns DATE: July 14, 2022 TIME: 2:37 PM PAGER/CONTACT #: documented in this encounterAcmc Healthcare System08-01-2022 Miscellaneous Notes* Telephone Encounter - Evangelina Sim RN - 04/04/2022 12:11 PM EDT Informed pt of Dr Fam's message. Pt verbalized understanding and denies further needs at this time. Evangelina Sim RN * Telephone Encounter - Linette Bai MD - 04/02/2022 4:04 PM EDT [...] results. Evangelina Sim RN documented in this encounterAcmc Healthcare System07-28-2022 History of Present illness Narrative* Linette Bai MD - 03/31/2022 1:30 PM EDT Images from the original note were not included. NAME: Doc Burns [facility] NO.: [id number] DATE OF SERVICE: March 31, 2022 Some elements in this clinic note that are critical to medical decision making have been carefully reviewed and included from a prior clinic note dated: March 02, 2022, & October 29, 2021 Referring Provider: Dr. Shaikh Etienne Additional Clinicians involved in Doc Burns's care: CC: lung cancer ASSESSMENT: 71 [...] 6-month gap between resection and presentation to nm. Heremains at high risk because of tobacco [...] 2022: Telephone only for 5 mins Called Doc as requested. Reviewed findings of liver resection [...] him today. Updated Visit, June 25, 2021: Doc Burns returns for follow up. There has [...] of himself that he can. 04/22/2021 Colonoscopy ([facility]) Results scanned to [facility] 06/04/2021 Updated Visit, February 05, 2021: Doing well overall but still smokes. We reviewed his CT scans from 02/01/2021 which shows no evidence of recurrent diseaes but will need follow up for bilateral small pulmonary nodules. Initial Visit, January 13, 2021: Doc Burns presents today for Hematology and Oncology [...] 02, 2022 1. 01/10/2022 Partial liver resection: [id number] Order: [id number] Collected 01/10/2022 11:56 AM Status: Final result [...] A4 remainderof specimen. Gross examination performed at [facility], [facility] [address] CLIA# [id number] [facility] January 12, 2022 9:23 AM REVIEW [...] which included preparing to see the patient, jqey-[id number] patient care, completing clinical documentation, performing a medically appropriate examination, counseling and educating the patient/family/caregiver and ordering medications, tests, or procedures. Linette Bai MD, CPE Services Provided at: [place], [place] & [place], [place] CC: Shaikh Lowell [address] [facility] [address] Krzysztof Queen documented in this encounterAcmc Healthcare System07-28-2022 History of Present illness Narrative* Charla Worrell, RT(R) - 03/31/2022 12:45 PM EDT RADIOLOGY [...] contrast PATIENT DISCHARGED TO: Ambulatory patient, left [place] department area. A Diagnostic radioactive procedure has taken place, with no further precautions necessary other than routine body substance precautions. More information regarding radiation safety can be found usingthis link: [email or web address] 20Diagnostic%20Nuclear%20Medicine%20Procedures.pdf SIGNATURE: RT Darius(R) PATIENT NAME: Doc Burns DATE: March 31, 2022 TIME: 1:49 PM PAGER/CONTACT #: documented in this encounterAcmc Healthcare System06-29-2022 History of Present illness Narrative* Linette Bai MD - 03/02/2022 5:49 PM EDT Images from the original note were not included. NAME: Doc Burns CLINIC NO.: [id number] DATE OF SERVICE: March 02, 2022 Some elements in this clinic note that are critical to medical decision making have been carefully reviewed and included from a prior clinic note dated: December 17, 2021 Referring Provider: Dr. Shaikh Etienne Additional Clinicians involved in Doc Burns's care: VIRTUAL VISIT PROGRESS NOTE This [...] 2022: Telephone only for 5 mins Called Doc as requested. Reviewed findings of liver resection [...] him today. Updated Visit, June 25, 2021: Doc Burns returns for follow up. There has [...] of himself that he can. 04/22/2021 Colonoscopy ([facility]) Results scanned to [facility] 06/04/2021 Updated Visit, February 05, 2021: Doing well overall but still smokes. We reviewed his CT scans from 02/01/2021 which shows no evidence of recurrent diseaes but will need follow up for bilateral small pulmonary nodules. Initial Visit, January 13, 2021: Doc Burns presents today for Hematology and Oncology [...] 02, 2022 1. 01/10/2022 Partial liver resection: [id number] Order: [id number] Collected 01/10/2022 11:56 AM Status: Final result [...] A4 remainderof specimen. Gross examination performed at [facility], [facility], [facility] [address] CLIA# [id number] [facility] January 12, 2022 9:23 AM HISTORY REVIEWED [...] 251 10/22/2021 484 DIAGNOSIS: No diagnosis found. Linette Bai MD, CPE Services Provided at: [facility], [place], [place] & [place], [place] CC: Shaikh Lowell [address] [place] [address] Krzysztof Queen documented in this encounterAcmc Healthcare System06-29-2022 Nurse Note* Deepti Bijan - 03/02/2022 9:07 AM EDT Clinical questionnaires incomplete due to Patient was roomed by provider. Phone visit Deepti Thakkar documented in this encounterAcmc Healthcare System06-28-2022 Miscellaneous Notes* Telephone Encounter - Jasen Laughlin - 03/01/2022 9:01 AM EDT Images from the original note were not included. Call placed to patient -- He has been scheduled for phone follow up tomorrow, 03/02. MD Jasen Kaur; Charla Jama RN [facility]! Looks like we missed scheduling him back - can I just have a phone call with him please and then I will et up whatever scans and appointment we need. Previous Messages ----- Message ----- From: Bj Mota MD Sent: 01/17/2022 12:33 PM EDT To: Linette Bai MD, Evangelina Maier RN Its benign! Yeah Once in a while we can give good news to a patient, I already called and told him about the path and said that your office will be in touch. Bj Tenorio ----- Message ----- From: Lab, Background User Sent: 01/16/2022 7:54 AM EDT To: Bj Mota MD documented in this encounterAcmc Healthcare System05-09-2022 NoteHNO ID: [id number] Author: Rosalino Cummings APRN.SENIOR ENVIRONMENTAL TECHNICIAN Service: Anesthesiology Author Type: Nurse Drier Take Off Tender Type: Anesthesia Procedure Notes Filed: 01/10/2022 11:32 AM Note Text: ANESTHESIOLOGY PROCEDURE NOTE A-Line General Information Procedure Start Time/Medication Administration: 01/10/2022 11:02 AM Patient location during procedure: OR Timeout Performed Pre-procedure: timeout performed Consent Obtained: Yes Indication: continuous blood pressure monitoring Staffing Anesthesiologist: Alena Mortensen MD SENIOR ENVIRONMENTAL TECHNICIAN: Rosalino Cummings APRN.SENIOR ENVIRONMENTAL TECHNICIAN Performed by: ENRIQUE Preparation Sterility Preparation: hand [...] Lidocaine SIGNATURE: Rosalino Cummings APRN.CRNA PATIENT NAME: Doc Burns DATE: January 10, 2022 TIME: 11:31 AM CSN: [id number] NoteHNO ID: [id number] Author: Rosalino Cummings APRN.CRNA Service: Anesthesiology Author Type: Nurse Drier Take Off Tender Type: Anesthesia Procedure Notes Filed: 01/10/2022 11:30 AM Note Text: ANESTHESIOLOGY PROCEDURE NOTE PIV General Information Procedure Start Time/Medication Administration: 01/10/2022 11:20 AM Patient Location: OR Staffing SENIOR ENVIRONMENTAL TECHNICIAN: Rosalino Cummings APRN.SENIOR ENVIRONMENTAL TECHNICIAN Performed by: ENRIQUE Preparation Sterility Preparation: hand hygiene performed prior to procedure, surgical cap used, mask used, skin prep agent completely dried prior to procedure Site Prep: chlorhexidine Procedure Details Indication: need for IV access Needle Size/Type: 18 gauge angiocath Orientation: Left Location: Hand Imaging Guidance Used: No SIGNATURE: Rosalino Cummings APRN.CRNA PATIENT NAME: Doc Burns DATE: January 10, 2022 TIME: 11:30 AM CSN: [id number] NoteHNO ID: [id number] Author: Rosalino Cummings APRN.CRNA Service: Anesthesiology Author Type: Nurse Drier Take Off Tender Type: Anesthesia Procedure Notes Filed: 01/10/2022 11:28 AM Note Text: ANESTHESIOLOGY PROCEDURE NOTE Airway General Information Procedure Start Time/Medication Administration: 01/10/2022 11:07 AM Patient location during procedure: OR Timeout Performed Pre-procedure: timeout performed Consent Obtained: Yes Patient identity confirmed: arm band and care clinical team lead Staffing Anesthesiologist: Alena Mortensen MD SENIOR ENVIRONMENTAL TECHNICIAN: Rosalino Cummings APRN.SENIOR ENVIRONMENTAL TECHNICIAN Performed by: SENIOR ENVIRONMENTAL TECHNICIAN Indications and Patient Condition Preoxygenated: yes Manual [...] 1 Airway not difficult SIGNATURE: Rosalino Cummings APRN.SENIOR ENVIRONMENTAL TECHNICIAN PATIENT NAME: Doc Burns DATE: January 10, 2022 TIME: 11:27 AM CSN: [id number] History of Present illness Narrative* Bj Mota MD - 01/06/2022 4:00 PM EDT This is a virtual visit using HIPAA compliant video platform. It required patient-provider interaction for the medical decision making as documented below. Assessment NEW CONSULT PATIENT NAME: Doc Burns REASON FOR CONSULT: Liver mass biopsy REQUESTING PHYSICIAN: Linette Bai MD DATE of SERVICE: 01/05/2022 TIME [...] stable. LABS: Unremarkable IMPRESSION: Liver mass PLAN: Doc Burns is a very pleasant 71 year [...] mail. Bj Mota MD AMBULATORY TELEPHONE VISIT Doc Burns has consented to this telephone encounter. Persons Present: patient and patient's spouse/significant other Chief Complaint/Reason: See above HPI: See above Data Reviewed: Most recent labs and imaging results. Assessment: No diagnosis found. See above Plan: See above Total Time Spent: 25 minutes Bj Mota MD documented in this encounterAcmc Healthcare System05-04-2022 Nurse Note* Dolly Ramírez LPN - 01/05/2022 11:10 AM EDT Letter per Delia Jeffries CNP faxed to DR Ayoub cardiology, as requested, re:Thinner guidance. Confirmation rcd. documented in this encounterAcmc Healthcare System05-04-2022 Instructions* Patient Instructions* Delia Jeffries APRN.CONTACT CENTER CONSULTANT - 01/05/2022 9:50 AM EDT PATIENT PREOPERATIVE INSTRUCTIONS Bj Mota MD has scheduled you for your procedure at this surgery center: [facility]: [phone] --[id number] [address]. Please check in on the1st floor at [...] or other anticoagulants without consulting with your steam drier tender or prescribing physician. - Stop Vitamin E, [...] Procedures: - YOU MUST HAVE A RESPONSIBLE SURGERY MANAGER TAKE YOU HOME. A NEPHROLOGIST OR SHARED SERVICES AND OUTSOURCING MANAGER CANNOT BE MADE A RESPONSIBLE SURGERY MANAGER. - We recommend that a responsible person [...] Advance Directive, please fax a copy to [phone] or email to for it to be [...] your chart that day. documented in this encounterAcmc Healthcare System05-04-2022 History and physical note * Delia Jeffries APRN.CNP - 01/05/2022 9:40 AM EDT HISTORY AND PHYSICAL EXAMINATION SERVICE DATE: 01/05/2022 SERVICE TIME: 11:20 AM PRIMARY CARE PHYSICIAN: Shaikh Lowell MD REASON FOR VISIT: Doc Burns is a 71 year old male [...] fevers. Neuro: No history of TIA's, stroke, COATING INSPECTOR tumor, impaired sensorium, hemiplegia, paraplegia or quadraplegia. [...] Asymptomatic Chronic diastolic CHF (congestive heart failure) ([facility]) Assessment: follows up with cardiology, stable and asymptomatic. daily lasix Coronary arteriosclerosis Assessment: follows up with cardiology, daily aspirin and plavix Hx of CABG Assessment: 2019, stable. Follows up with cardiology Cancer of trachea, bronchus, and lung ([facility]) Assessment: s/p lobectomy September 2020, stable Follows up with PCP HTN (hypertension) Assessment: managed with med, stable 01/05/2022 127/59 10/29/2021 119/56 Smoker Assessment: 1ppd for 40 years COPD (chronic obstructive pulmonary disease) ([facility]) Assessment: managed with inhalers, stable HLD (hyperlipidemia) [...] for surgery. - Letter sent to Dr Ayoub for plavix and aspirin guidance. Patient instructed to call steam drier tender for answer regarding medications CONSULTS: Patient does [...] compliance. SIGNATURE: Delia Jeffries APRN.CNP PATIENT NAME: Doc Burns DATE: January 05, 2022 TIME: 9:41 AM documented in this encounterAcmc Healthcare System04-15-2022 History of Present illness Narrative* Linette Bai MD - 12/17/2021 4:29 PM EDT Images from the original note were not included. NAME: Doc Burns [facility] NO.: [id number] DATE OF SERVICE: December 17, 2021 Some elements in this clinic note that are critical to medical decision making have been carefully reviewed and included from a prior clinic note dated: October 29, 2021 Referring Provider: Dr. Shaikh Etienne Additional Clinicians involved in Doc Burns's care: VIRTUAL VISIT PROGRESS NOTE This [...] a nebulizer PLAN: 1. Please sed to [place] or [place] for image guided liver Biopsy. 2. Call [...] him today. Updated Visit, June 25, 2021: Doc Burns returns for follow up. There has [...] of himself that he can. 04/22/2021 Colonoscopy ([facility]) Results scanned to [facility] 06/04/2021 Updated Visit, February 05, 2021: Doing well overall but still smokes. We reviewed his CT scans from 02/01/2021 which shows no evidence of recurrent diseaes but will need follow up for bilateral small pulmonary nodules. Initial Visit, January 13, 2021: Doc Burns presents today for Hematology and Oncology [...] right lobe Plan: IMAGING GUIDED BIOPSY LIVER Linette Bai MD, CPE Services Provided at: [place], [place] & [place], [place] CC: Shaikh Lowell [address] [facility] [address] [place] documented in this encounterAcmc Healthcare System04-08-2022 History of Present illness Narrative* Adenike Rosas RN - 12/10/2021 1:15 PM EDT [...] Intact SIGNATURE: Adenike Rosas RN PATIENT NAME: Doc Burns DATE: December 10, 2021 TIME: 1:13 PM * Charla Worrell, RT(R) - 12/10/2021 1:15 PM EDT Radiology Service Progress Note PATIENT NAME: Doc Burns DATE OF SERVICE: December 10, 2021 [...] Site disposition Discontinued SIGNED BY: RT Darius(R) December 10, 2021 2:36 PM documented in this encounterAcmc Healthcare System02-18-2022 History of Present illness Narrative* Adenike Rosas RN - 10/22/2021 1:30 PM EST [...] Intact SIGNATURE: Adenike Rosas RN PATIENT NAME: Doc Burns DATE: October 22, 2021 TIME: 1:50 PM * Charla Worrell RT(R) - 10/22/2021 1:30 PM EST Radiology Service Progress Note PATIENT NAME: Doc Burns DATE OF SERVICE: October 22, 2021 [...] Site disposition Discontinued SIGNED BY: RT Darius(Arslan) October 22, 2021 1:53 PM documented in this encounterAcmc [facility] SystemEvalumidd[facility] note* Diagnosis Cancer of trachea, bronchus, and lung (HCC)- Primary Malignant neoplasm of other parts of bronchus or lung Liver mass, right lobe Unspecified disorder of liver documented in this encounter [facility]* Diagnosis Pre-op evaluation- Primary Preoperative examination, unspecified Liver mass Unspecified disorder of liver Coronary arteriosclerosis Coronary atherosclerosis of unspecified type of vessel, [place] or graft Chronic diastolic CHF (congestive heart [...] disorder of liver documented in this encounter [facility]* Diagnosis Liver mass- Primary Unspecified disorder of liver documented in this encounter [facility]* Diagnosis Cancer of trachea, bronchus, and lung (HCC)- Primary Malignant neoplasm of other parts of bronchus or lung Malignant neoplasm of unspecified part of unspecified bronchus or lung (HCC) Panlobular emphysema (HCC) Other emphysema documented in this encounter [facility]* Diagnosis Malignant neoplasm of unspecified part of unspecified bronchus or lung (HCC)- Primary Cancer of trachea, bronchus, and lung (HCC) Malignant neoplasm of other parts of bronchus or lung Panlobular emphysema (HCC) Other emphysema documented in this encounter [facility]* Diagnosis Onset Date Resolution Status Personal history of colonic polyps acute [facility] Work Phone: Evaluation note* Diagnosis Cancer of trachea, bronchus, and lung (HCC)- Primary Malignant neoplasm of other parts of bronchus or lung Lung nodules Other nonspecific abnormal finding of lung field Panlobular emphysema (HCC) Other emphysema documented in this encounter [facility]* Diagnosis Malignant neoplasm of unspecified part of unspecified bronchus or lung (HCC)- Primary documented in this [facility]* Diagnosis Malignant neoplasm of unspecified part of unspecified bronchus or lung (HCC)- Primary Lung nodules Other nonspecific abnormal finding of lung field 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 reaction to tuberculin skin test without active tuberculosis Non-caseating granuloma Pyogenic granuloma of skin and subcutaneous tissue [facility]* Diagnosis Malignant neoplasm of unspecified part of unspecified bronchus or lung (HCC)- Primary [facility]* Diagnosis Malignant neoplasm of unspecified part of unspecified bronchus or lung (HCC)- Primary Lung nodules Other nonspecific abnormal finding of lung field [facility]* Diagnosis Abnormal finding on GI tract imaging- Primary Nonspecific (abnormal) findings on radiological and other examination of gastrointestinal tract Malignant neoplasm of unspecified part of unspecified bronchus or lung (HCC) documented [facility] this encounter [facility] noteNo assessment information availableMagruder [facility] Work Phone: Evaluation note* Diagnosis Malignant neoplasm of unspecified part of unspecified bronchus or lung (HCC)- Primary [facility]* Diagnosis 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) documented in this encounter [facility] note* Diagnosis Lower abdominal pain- Primary Abdominal pain, other specified site Malignant neoplasm of upper lobe of right lung (HCC) Malignant neoplasm of upper lobe, bronchus or lung documented [facility]* Diagnosis Lung nodules- Primary Other nonspecific abnormal finding of lung field Malignant neoplasm of unspecified part of unspecified bronchus or lung (HCC) documented [facility]* Diagnosis Cancer of trachea, bronchus, and lung (HCC)- Primary Malignant neoplasm of other parts of bronchus or lung [facility]* Diagnosis Malignant neoplasm of unspecified part of unspecified bronchus or lung (HCC)- Primary Abnormal finding on GI tract imaging Nonspecific (abnormal) findings on radiological and other examination of gastrointestinal tract Malignant neoplasm of lung, unspecified laterality, unspecified part of lung (HCC) documented [facility]* Diagnosis Pre-op evaluation- Primary Preoperative examination, unspecified Liver mass Unspecified disorder of liver Coronary arteriosclerosis Coronary atherosclerosis of unspecified type of vessel, [place] or graft Chronic diastolic CHF (congestive heart [...] or lung (HCC) documented in this encounter [facility]* Diagnosis Pre-op evaluation- Primary Preoperative examination, unspecified Liver mass Unspecified disorder of liver Coronary arteriosclerosis Coronary atherosclerosis of unspecified type of vessel, [place] or graft Chronic diastolic CHF (congestive heart [...] bronchus or lung documented in this encounter [facility]* Diagnosis Pre-op evaluation- Primary Preoperative examination, unspecified Liver mass Unspecified disorder of liver Coronary arteriosclerosis Coronary atherosclerosis of unspecified type of vessel, [place] or graft Chronic diastolic CHF (congestive heart [...] or lung (HCC) documented in this encounter [facility] note* Diagnosis Pre-op evaluation- Primary Preoperative examination, unspecified Liver mass Unspecified disorder of liver Coronary arteriosclerosis Coronary atherosclerosis of unspecified type of vessel, [place] or graft Chronic diastolic CHF (congestive heart [...] or lung (HCC) documented in this encounter [facility] note* Diagnosis Pre-op evaluation- Primary Preoperative examination, unspecified Liver mass Unspecified disorder of liver Coronary arteriosclerosis Coronary atherosclerosis of unspecified type of vessel, [place] or graft Chronic diastolic CHF (congestive heart [...] of lung field documented in this encounter [facility] note* Diagnosis Pre-op evaluation- Primary Preoperative examination, unspecified Liver mass Unspecified disorder of liver Coronary arteriosclerosis Coronary atherosclerosis of unspecified type of vessel, [place] or graft Chronic diastolic CHF (congestive heart [...] or lung (HCC) documented in this encounter [facility] note* Diagnosis Pre-op evaluation- Primary Preoperative examination, unspecified Liver mass Unspecified disorder of liver Coronary arteriosclerosis Coronary atherosclerosis of unspecified type of vessel, [place] or graft Chronic diastolic CHF (congestive heart [...] right lung (HCC) documented [facility]* Diagnosis Pre-op evaluation- Primary Preoperative examination, unspecified Liver mass Unspecified disorder of liver Coronary arteriosclerosis Coronary atherosclerosis of unspecified type of vessel, [place] or graft Chronic diastolic CHF (congestive heart [...] of lung field documented in this encounter [facility] note* Diagnosis Pre-op evaluation- Primary Preoperative examination, unspecified Liver mass Unspecified disorder of liver Coronary arteriosclerosis Coronary atherosclerosis of unspecified type of vessel, [place] or graft Chronic diastolic CHF (congestive heart [...] or lung (HCC) documented in this encounter [facility] note* Diagnosis Pre-op evaluation- Primary Preoperative examination, unspecified Liver mass Unspecified disorder of liver Coronary arteriosclerosis Coronary atherosclerosis of unspecified type of vessel, [place] or graft Chronic diastolic CHF (congestive heart [...] or lung (HCC) documented [facility]* Diagnosis Pre-op evaluation- Primary Preoperative examination, unspecified Liver mass Unspecified disorder of liver Coronary arteriosclerosis Coronary atherosclerosis of unspecified type of vessel, [place] or graft Chronic diastolic CHF (congestive heart [...] (HCC) Other emphysema documented in this encounter [facility]* Diagnosis Enlarged lymph node Enlargement of [...] Coronary atherosclerosis of unspecified type of vessel, [place] or graft Chronic diastolic CHF (congestive heart [...] unspecified depression type documented in this encounter [facility]* Diagnosis Enlarged lymph node Enlargement of lymph nodes documented in this encounter [facility]* Diagnosis Hypokalemia Hypopotassemia Essential (primary) hypertension (CMS/HCC) Unspecified essential hypertension documented in this encounter [facility]* Diagnosis Panlobular emphysema (CMS/HCC)- [...] Depression, unspecified (CMS/HCC) [facility]* Diagnosis Pre-op evaluation- Primary Preoperative examination, unspecified Liver mass Unspecified disorder of liver Coronary arteriosclerosis Coronary atherosclerosis of unspecified type of vessel, [place] or graft Chronic diastolic CHF (congestive heart [...] of lung (HCC) documented [facility]* Diagnosis Pre-op evaluation- Primary Preoperative examination, unspecified Liver mass Unspecified disorder of liver Coronary arteriosclerosis Coronary atherosclerosis of unspecified type of vessel, [place] or graft Chronic diastolic CHF (congestive heart [...] and subcutaneous tissue documented in this encounter [facility]* Diagnosis Panlobular emphysema (CMS/HCC)- Primary Other emphysema Thoracic aortic ectasia (I77.810) Thoracic aortic ectasia Adenocarcinoma of right lung (CMS/HCC) Chronic systolic heart failure (CMS/HCC) Chronic systolic heart failure Aneurysm of ascending aorta without rupture (CMS/HCC) Hyperlipidemia, unspecified hyperlipidemia type (CMS/HCC) Tobacco dependence Tobacco use disorder Recurrent major depressive disorder, in partial remission (HCC) ([facility]/HCC) Medicare annual wellness visit, subsequent Psychophysiological insomnia [...] emphysema (CMS/HCC) Other emphysema Heart failure, unspecified ([facility]/HCC) Heart failure, unspecified documented in this encounter [...] major depressive disorder, in partial remission (HCC) ([facility]/HCC) Medicare annual wellness visit, subsequent Psychophysiological insomnia [...] Unspecified essential hypertension [facility]* Diagnosis Pre-op evaluation- Primary Preoperative examination, unspecified Liver mass Unspecified disorder of liver Coronary arteriosclerosis Coronary atherosclerosis of unspecified type of vessel, [place] or graft Chronic diastolic CHF (congestive heart [...] and subcutaneous tissue documented in this encounter [facility]* Diagnosis Chronic obstructive pulmonary disease, unspecified COPD type (CMS-HCC) [facility] Diagnosis Pre-op evaluation- Primary Preoperative examination, unspecified Liver mass Unspecified disorder of liver Coronary arteriosclerosis Coronary atherosclerosis of unspecified type of vessel, [place] or graft Chronic diastolic CHF (congestive heart [...] right lung (HCC) documented in this [facility]* Diagnosis Panlobular emphysema (CMS/HCC)- Primary Other [...] disease, unspecified (CMS/HCC) [facility]* Diagnosis Panlobular emphysema (CMS/HCC)- Primary Other emphysema Thoracic aortic ectasia (I77.810) Thoracic aortic ectasia Adenocarcinoma of right lung (CMS/HCC) Chronic systolic heart failure (CMS/HCC) Chronic systolic heart failure Aneurysm of ascending aorta without rupture (CMS/HCC) Hyperlipidemia, unspecified hyperlipidemia type (CMS/HCC) Tobacco dependence Tobacco use disorder Recurrent major depressive disorder, in partial remission (HCC) ([facility]/HCC) Medicare annual wellness visit, subsequent Psychophysiological insomnia [...] erectile dysfunction, unspecified [facility]* Diagnosis Panlobular emphysema (CMS/HCC)- Primary Other emphysema Thoracic aortic ectasia (I77.810) Thoracic aortic ectasia Adenocarcinoma of right lung (CMS/HCC) Chronic systolic heart failure (CMS/HCC) Chronic systolic heart failure Aneurysm of ascending aorta without rupture (CMS/HCC) Hyperlipidemia, unspecified hyperlipidemia type (CMS/HCC) Tobacco dependence Tobacco use disorder Recurrent major depressive disorder, in partial remission (HCC) ([facility]/HCC) Medicare annual wellness visit, subsequent Psychophysiological insomnia [...] erectile dysfunction, unspecified [facility]* Diagnosis Chronic obstructive pulmonary disease, unspecified COPD type (CMS-HCC)- Primary Cancer of trachea, bronchus, and lung (CMS-HCC) Malignant neoplasm of other parts of bronchus or lung Smoker Tobacco use disorder [facility]* Diagnosis Panlobular emphysema (CMS/HCC)- Primary [...] Unspecified essential hypertension 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) documented in this encounter [facility]* Diagnosis Pre-op evaluation- Primary Preoperative examination, unspecified Liver mass Unspecified disorder of liver Coronary arteriosclerosis Coronary atherosclerosis of unspecified type of vessel, [place] or graft Chronic diastolic CHF (congestive heart [...] bronchus or lung [facility]* Diagnosis Pre-op evaluation- Primary Preoperative examination, unspecified Liver mass Unspecified disorder of liver Coronary arteriosclerosis Coronary atherosclerosis of unspecified type of vessel, [place] or graft Chronic diastolic CHF (congestive heart [...] Anemia, unspecified type documented in this encounter [facility] note* Diagnosis Panlobular emphysema (CMS/HCC)- Primary Other [...] Tobacco use disorder documented in this encounter [facility]* Diagnosis Panlobular emphysema (CMS/HCC)- [...] (HCC) (CMS/HCC)- Primary documented in [facility] encounter [facility]* [...] Tobacco use disorder 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) documented in this encounter [facility]* Diagnosis Pre-op evaluation- Primary Preoperative examination, unspecified Liver mass Unspecified disorder of liver Coronary arteriosclerosis Coronary atherosclerosis of unspecified type of vessel, [place] or graft Chronic diastolic CHF (congestive heart [...] Anemia, unspecified type [facility]* Diagnosis Pre-op evaluation- Primary Preoperative examination, unspecified Liver mass Unspecified disorder of liver Coronary arteriosclerosis Coronary atherosclerosis of unspecified type of vessel, [place] or graft Chronic diastolic CHF (congestive heart [...] Abdominal pain, generalized documented [facility] this [facility]* Diagnosis Panlobular emphysema (CMS/HCC)- Primary Other [...] disorder (HCC) (CMS/HCC) 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) documented in this encounter [facility]* Diagnosis Panlobular emphysema (CMS/HCC)- [...] right lung (CMS/HCC) documented in this encounter [facility]* Diagnosis Chronic obstructive pulmonary disease, unspecified COPD type (CMS-HCC)- Primary Lung nodules Other diseases of lung, not elsewhere classified Smoker Tobacco use disorder [facility]* Diagnosis Panlobular emphysema (HCC)- [...] (HCC) Hypokalemia Hypopotassemia documented in this encounter [facility]* Diagnosis Pre-op evaluation- Primary Preoperative examination, unspecified Liver mass Unspecified disorder of liver Coronary arteriosclerosis Coronary atherosclerosis of unspecified type of vessel, [place] or graft Chronic diastolic CHF (congestive heart [...] bronchus or lung documented [facility]* Diagnosis Panlobular emphysema (HCC)- Primary [...] major depressive disorder [facility]* Diagnosis Hemothorax on left- Primary Other specified forms of effusion, except tuberculous Hemothorax on left Other specified forms of effusion, except tuberculous Closed nondisplaced fracture of coracoid process of left shoulder, initial encounter Closed fracture of multiple ribs of left side, initial encounter COPD with acute exacerbation (CMS-HCC) [facility] Diagnosis Closed displaced fracture of coracoid process of left shoulder with routine healing, subsequent encounter- Primary [facility] Diagnosis Pre-op evaluation- Primary Preoperative examination, unspecified Liver mass Unspecified disorder of liver Coronary arteriosclerosis Coronary atherosclerosis of unspecified type of vessel, [place] or graft Chronic diastolic CHF (congestive heart [...] bronchus or lung documented in this encounter [facility] note* Diagnosis Pre-op evaluation- Primary Preoperative examination, unspecified Liver mass Unspecified disorder of liver Coronary arteriosclerosis Coronary atherosclerosis of unspecified type of vessel, [place] or graft Chronic diastolic CHF (congestive heart [...] of unspecified bronchus or lung (HCC)- Primary Fall (on) (from) unspecified stairs and steps, subsequent encounter Multiple fractures of ribs, left side, subsequent encounter for fracture with routine healing Pain in thoracic spine [facility]* Diagnosis Pre-op evaluation- Primary Preoperative examination, unspecified Liver mass Unspecified disorder of liver Coronary arteriosclerosis Coronary atherosclerosis of unspecified type of vessel, [place] or graft Chronic diastolic CHF (congestive heart [...] unspecified hyperlipidemia type Depression, unspecified depression type Acute neoplasm-related pain- Primary Neoplasm related pain (acute) (chronic) [facility]* Diagnosis Onset Date Resolution Status Admit Date Adenocarcinoma of right lung acuteSept2024 5:17pmEssential hypertensionacuteSept2024 5:17pmMajor depression, recurrentacuteSept2024 5:17pmNicotine dependenceacuteSept2024 5:17pm [facility] Work Phone: Evaluation note* Diagnosis Lung nodules- Primary Other diseases of lung, not elsewhere classified Dyspnea on exertion Other dyspnea and respiratory abnormality Smoker Tobacco use disorder Centrilobular emphysema ([facility]-HCC) documented in this encounter [facility] Author Paramjit Spring [facility] May 30, 2023 1:25pmNote Date/TimeSept2022 1:26pm[place] [address] Gastroenterology H&P Signed Patient: Doc Burns MR#: [id number] : 1950 Acct:[id number] Age/Sex: 73 / M Adm Date: 3 Loc: Room: Type: [facility] Attending Dr: Paramjit Spring MD Copies to: MD Shaikh Lowell Price MD~ Date of Service: 05/30/2023 HISTORY & PHYSICAL: Patient's history with special attention to the cardiovascular, pulmonary systems and the current problem was reviewed with the patient immediately prior to the procedure. Present medications and doses reviewed in the EMR. Allergies and pertinent laboratory tests were also re viewedat this time in the EMR. The physical [...] Spring MD Documented By: Paramjit Spring MD 05/30/235 Signed By: <Electronically signed by Paramjit Spring MD> 05/30/23 1325 [facility] Work Phone: History general Narrative - Reported* Type Description Date Surgical History open heart surgery Hospitalization Historysee above [place] Other Hospital Discharge instructions Additional Instructions DISCHARGE [...] NOT operate machinery such as power tools, Immune Targeting Systemsn mowers, snow blowers, sewing machines, etc. for [...] problems. -Follow up with PCP. -Office number [phone].[facility] Work Phone: InstructionsNot on filedocumented in this encounter [facility] SystemInstructionsNot on filedocumented in this encounter [facility] [employer] SystemInstructionsNot on filedocumented in this encounter [facility] SystemInstructionsNot on filedocumented in this encounter [facility] SystemInstructionsNot on filedocumented in this encounter [facility] SystemInstructionsNot on filedocumented in this encounter [facility] SystemReason for referral (narrative)* Diagnostic Procedure Only (Routine) - Pending ReviewSpecialtyDiagnoses / ProceduresReferred By ContactReferred To ContactMOLECULAR & FUNCTIONAL IMAGING Diagnoses Malignant neoplasm of unspecified part of unspecified bronchus or lung (HCC) Procedures NM PET/CT SKULL-THIGH SUBSEQUENT PET IMAGING CT ATTENUATION SKULL BASE MID-THIGH Linette Bai MD [address] [place] [address] [place] [address] Molecular & Functional Imaging [address] [place] [address] Referral IDStatusReasonStart DateExpiration DateVisits RequestedVisits [id number] Review Auto-Generated Referral / [facility] for referral (narrative)* Diagnostic Procedure Only (Routine) - Pending ReviewSpecialtyDiagnoses / ProceduresReferred By Contact Referred To ContactMOLECULAR & FUNCTIONAL IMAGING Diagnoses Malignant neoplasm of unspecified part of unspecified bronchus or lung (HCC) Lung nodules Procedures NM PET/CT SKULL-THIGH SUBSEQUENT PET IMAGING CT ATTENUATION SKULL BASE MID-THIGH Linette Bai MD [address] [place] [address] [place] [address] Molecular & Functional Imaging [address] [place] [address] Referral IDStatusReasonStart DateExpiration DateVisits RequestedVisits [id number] Review Auto-Generated Referral / [facility] for referral (narrative)* Diagnostic Procedure Only (Routine) - AuthorizedSpecialtyDiagnoses / ProceduresReferred By Contact Referred To ContactMOLECULAR & FUNCTIONAL IMAGING Diagnoses Abnormal finding on GI tract imaging Malignant neoplasm of unspecified part of unspecified bronchus or lung (HCC) Procedures NM PET/CT SKULL-THIGH SUBSEQUENT PET IMAGING CT ATTENUATION SKULL BASE MID-THIGH Linette Bai MD [address] [place] [address] [place] [address] Molecular & Functional Imaging [address] [place] [address] Referral IDStatusReasonStart DateExpiration DateVisits RequestedVisits [id number] Auto-Generated Referral / * Consult, Test, Treat (Routine) - AuthorizedSpecialtyDiagnoses / Procedures Referred By ContactReferred To ContactGastroenterology Diagnoses Abnormal finding on GI tract imaging Procedures CONSULT TO GASTROENTEROLOGY OFFICE/OUTPATIENT [facility] 60-74 MINUTES Linette Bai MD [address] [place] [address] [address] [place] [id number] Referral IDStatusReasonMaywood DateExpiration DateVisits RequestedVisits [id number] PCP Requested Referral / [facility] for referral (narrative)* Diagnostic Procedure Only (Routine) - ClosedSpecialtyDiagnoses / ProceduresReferred By ContactReferred To ContactMOLECULAR & FUNCTIONAL IMAGING Diagnoses Abnormal finding on GI tract imaging Malignant neoplasm of unspecified part of unspecified bronchus or lung (HCC) Procedures NM PET/CT SKULL-THIGH SUBSEQUENT PET IMAGING CT ATTENUATION SKULL BASE MID-THIGH Linette Bai MD [address] [place] [address] [place] [address] Molecular & Functional Imaging [address] [place] [address] Referral IDStatusLiliasonStart DateExpiration DateVisits RequestedVisits [id number] Auto-Generated Referral / [facility] for referral (narrative)* Diagnostic Procedure Only (Routine) - ClosedSpecialtyDiagnoses / ProceduresReferred By ContactReferred To ContactMOLECULAR & FUNCTIONAL IMAGING Diagnoses Malignant neoplasm of unspecified part of unspecified bronchus or lung (HCC) Lung nodules Procedures NM PET/CT SKULL-THIGH SUBSEQUENT PET IMAGING CT ATTENUATION SKULL BASE MID-THIGH Linette Bai MD [address] [place] [address] [place] [address] Molecular & Functional Imaging [address] [place] [address] Referral IDStatusReasonStcabot DateExpiration DateVisits RequestedVisits [id number] Auto-Generated Referral / [facility] for referral (narrative)* Diagnostic Procedure Only (Routine) - ClosedSpecialtyDiagnoses / ProceduresReferred By ContactReferred To ContactMOLECULAR & FUNCTIONAL IMAGING Diagnoses Malignant neoplasm of unspecified part of unspecified bronchus or lung (HCC) Procedures NM PET/CT SKULL-THIGH SUBSEQUENT PET IMAGING CT ATTENUATION SKULL BASE MID-THIGH Linette Bai MD [address] [place] [address] [place] [address] Molecular & Functional Imaging [address] [place] [address] Referral IDStatusReasonStart DateExpiration DateVisits RequestedVisits [id number] Auto-Generated Referral / [facility] for referral (narrative)* Diagnostic Procedure Only (Routine) - ClosedSpecialtyDiagnoses / ProceduresReferred By ContactReferred To ContactMOLECULAR & FUNCTIONAL IMAGING Diagnoses Lung nodules Malignant neoplasm of unspecified part of unspecified bronchus or lung (HCC) Procedures NM PET/CT SKULL-THIGH SUBSEQUENT PET IMAGING CT ATTENUATION SKULL BASE MID-THIGH Linette Bai MD [address] [place] [address] [place] [address] Molecular & Functional Imaging [address] [place] [address] Referral IDStatusReasonStart DateExpiration DateVisits RequestedVisits [id number] Auto-Generated Referral [facility] ([facility]ative)No reason for referral information availableAv[facility] Work Phone: Reason for visit Narrative* MRI/CT (Routine) - Closed SpecialtyDiagnoses / ProceduresReferred By ContactReferred To ContactCT IMAGING Diagnoses Malignant neoplasm of upper lobe of right lung (HCC) Procedures CT CHEST W IVCON DIAGNOSTIC COMPUTED TOMOGRAPHY THORAX W/CONTRAST Linette Bai MD [address] [place] [address] [place] [address] Phone: tel: fax: [facility] [place] [address] Referral IDStatusReasonStart DateExpiration DateVisits RequestedVisits [id number] Auto-Generated Referral [facility] Summary Purpose Family History Relationship Condition Age at Onset Recorded Date/T han father Malignant neoplasm Unknown Relationship Condition Age at Onset Recorded Date/T han father Malignant neoplasm of lung Unknown sisterDiabetes mellitusUnknown Relationship Condition Age at Onset Recorded Date/T han father Malignant neoplasm of lung Unknown sisterDiabetes mellitusUnknownfatherDeceasedUnknownmotherDeceasedUnknown Advance Directives TypeDate RecordedPatient RepresentativeExplanationAdvance Directive(s)12/29/2021 9:19 AMTypeDate RecordedPatient RepresentativeExplanationAdvance Directive(s) 12/29/2021 9:19 AM Advance Directive Response Recorded Date/ Time Advance Directives No April 16, 2021 11:51am Advance Directive Response Recorded Date/ Time Advance Directives No April 16, 2021 10:51am Date ActivatedDate InactivatedComments04/14/2025 3:43 AM04/24/2025 7:52 PMDate ActivatedDate InactivatedComments04/14/2025 3:43 AM04/24/2025 7:52 PM Reason for Referral SpecialtyDiagnoses / ProceduresReferred By ContactReferred To ContactCT IMAGING Diagnoses Malignant neoplasm of unspecified part of unspecified bronchus or lung (HCC) Cancer of trachea, bronchus, and lung (HCC) Panlobular emphysema (HCC) Procedures CT CHEST W IVCON DIAGNOSTIC COMPUTED TOMOGRAPHY THORAX W/CONTRAST Linette Bai MD [address] [place] [address] [place] [address] Ct Imaging Referral IDStatusReasonStart DateExpiration DateVisits RequestedVisits [id number] Review Auto-Generated Referral /[id number] / ProceduresReferred By ContactReferred To ContactCT IMAGING Diagnoses Malignant neoplasm of unspecified part of unspecified bronchus or lung (HCC) Procedures CT CHEST W IVCON DIAGNOSTIC COMPUTED TOMOGRAPHY THORAX W/CONTRAST Linette Bai MD [address] [place] [address] [place] [address] Ct Imaging Referral IDStatusReasonStart DateExpiration DateVisits RequestedVisits [id number] Review Auto-Generated Referral [id number] / ProceduresReferred By ContactReferred To ContactCT IMAGING Diagnoses Cancer of trachea, bronchus, and lung (HCC) Lung nodules Procedures CT CHEST W IVCON DIAGNOSTIC COMPUTED TOMOGRAPHY THORAX W/CONTRAST Linette Bai MD [address] [place] [address] [place] [address] Ct Imaging Referral IDStatusReasonStart DateExpiration DateVisits RequestedVisits [id number] Auto-Generated Referral /[id number] / ProceduresReferred By ContactReferred To ContactCT IMAGING Diagnoses Malignant neoplasm of unspecified part of unspecified bronchus or lung (HCC) Procedures CT CHEST W IVCON DIAGNOSTIC COMPUTED TOMOGRAPHY THORAX W/CONTRAST Linette Bai MD [address] [place] [address] [address] [place] [phone] Ct Imaging [place] [address] Referral IDStatusReasonStcabot DateExpiration DateVisits RequestedVisits [id number] Auto-Generated Referral /[id number] / ProceduresReferred By ContactReferred To ContactCT IMAGING Diagnoses Malignant neoplasm of upper lobe of right lung (HCC) Procedures CT CHEST W IVCON DIAGNOSTIC COMPUTED TOMOGRAPHY THORAX W/CONTRAST Linette Bai MD [address] [place] [address] [address] [place] [phone] Ct Imaging [place] [address] Referral IDStatOhio[facility] DateExpiration DateVisits RequestedVisits [id number] Auto-Generated Referral /[id number] / ProceduresReferred By ContactReferred To ContactCT IMAGING Diagnoses Lower abdominal pain Malignant neoplasm of upper lobe of right lung (HCC) Procedures CT ABD/PEL W IVCON CT ABD & PELVIS W/CONTRAST Linette Bai MD [address] [place] [address] [address] [place], [facility] Ct Imaging [place] [address] Referral [facility]Status[facility] DateExpiration DateVisits RequestedVisits [id number] Auto-Generated Referral /[id number] / ProceduresReferred By ContactReferred To ContactCT IMAGING Diagnoses Lung nodules Malignant neoplasm of unspecified part of unspecified bronchus or lung (HCC) Procedures CT CHEST W IVCON DIAGNOSTIC COMPUTED TOMOGRAPHY THORAX W/CONTRAST Linette Bai MD [address] [place] [address] [place] [address] Ct Imaging [facility] Referral IDStatusReasonStart DateExpiration DateVisits RequestedVisits [id number] Auto-Generated Referral [id number] / ProceduresReferred By ContactReferred To ContactCT IMAGING Diagnoses Malignant neoplasm of unspecified part of unspecified bronchus or lung (HCC) Abnormal finding on GI tract imaging Procedures CT CHEST W IVCON DIAGNOSTIC COMPUTED TOMOGRAPHY THORAX W/CONTRAST Linette Bai MD [address] [facility] [address] [place], [facility] Ct Imaging [place] [address] Referral IDStatusReasonStart DateExpiration DateVisits RequestedVisits [id number] Request Auto-Generated Referral [id number] / ProceduresReferred By ContactReferred To ContactCT IMAGING Diagnoses Malignant neoplasm of unspecified part of unspecified bronchus or lung (HCC) Abnormal finding on GI tract imaging Malignant neoplasm of lung, unspecified laterality, unspecified part of lung (HCC) Procedures CT ABD/PEL W IVCON CT ABD & PELVIS W/CONTRAST Linette Bai MD [address] [place] [address] [place] [address] Ct Imaging [place] [address] Referral IDStatusReasonStart DateExpiration DateVisits RequestedVisits [id number] Request Auto-Generated Referral 1Referral IDStatusReasonStart DateExpiration DateVisits RequestedVisits [id number] Auto-Generated Referral 1Referral IDStatusReasonStart DateExpiration DateVisits RequestedVisits [id number] Auto-Generated Referral 1Referral IDStatusReasonStart DateExpiration DateVisits RequestedVisits [id number] Auto-Generated Referral 1Referral IDStatusReasonStart DateExpiration DateVisits RequestedVisits [id number] Auto-Generated Referral /[id number] IDStatusReasonStart DateExpiration DateVisits RequestedVisits [id number] Auto-Generated Referral [id number] / ProceduresReferred By ContactReferred To ContactCT IMAGING Diagnoses Malignant neoplasm of unspecified part of unspecified bronchus or lung (HCC) Malignant neoplasm of overlapping sites of right lung (HCC) Procedures CT ABD/PEL W IVCON CT ABD & PELVIS W/CONTRAST Linette Bai MD [address] [place] [address] [place] [address] Ct Imaging [place] [address] Referral IDStatusReasonStart DateExpiration DateVisits RequestedVisits [id number] Auto-Generated Referral [id number] / ProceduresReferred By ContactReferred To ContactCT IMAGING Diagnoses Cancer of trachea, bronchus, and lung (HCC) Lung nodules Procedures CT CHEST W IVCON DIAGNOSTIC COMPUTED TOMOGRAPHY THORAX W/CONTRAST Linette Bai MD [address] [place] [address] [place] [address] Ct Imaging [place] [address] Referral IDStatusReasonStart DateExpiration DateVisits RequestedVisits [id number] Auto-Generated Referral /[id number] IDStatusReasonStart DateExpiration DateVisits RequestedVisits [id number] Auto-Generated Referral /[id number] / ProceduresReferred By ContactReferred To ContactCT IMAGING Diagnoses Malignant neoplasm of unspecified part of unspecified bronchus or lung (HCC) Cancer of trachea, bronchus, and lung (HCC) Panlobular emphysema (HCC) Procedures CT CHEST W IVCON DIAGNOSTIC COMPUTED TOMOGRAPHY THORAX W/CONTRAST Linette Bai MD [address] [place] [address] [place] [address] Ct Imaging [place] [address] Referral IDStatusReasonStart DateExpiration DateVisits RequestedVisits [id number] Auto-Generated Referral [id number] / ProceduresReferred By ContactReferred To ContactCT IMAGING Diagnoses Enlarged lymph node Cancer of trachea, bronchus, and lung (HCC) Procedures CT LIVER/PELVIS W IVCON CT ABD & PELVIS W/CONTRAST Linette Bai MD [address] [place] [address] Ct Imaging [place] [address] Referral IDStatusReasonStart DateExpiration DateVisits RequestedVisits [id number] Auto-Generated Referral [id number] / ProceduresReferred By ContactReferred To ContactCT IMAGING Diagnoses Enlarged lymph node Procedures CT CHEST W IVCON CAT SCAN OF CHEST CONTRAST Glenna Ramirez, [employer] SCIENTIST.CONTACT CENTER CONSULTANT [address] [place] [address] Ct Imaging [place] [address] Referral IDStatusReasonStart DateExpiration DateVisits RequestedVisits [id number] Auto-Generated Referral [id number] / ProceduresReferred By ContactReferred To ContactCT IMAGING Diagnoses Enlarged lymph node Procedures CT ABD/PEL W IVCON CT ABD & PELVIS W/CONTRAST Glenna Ramirez, [employer] RESEARCH SCIENTIST.CONTACT CENTER CONSULTANT [address] [facility] [address] [place] [phone] Ct Imaging [facility] Referral IDStatusReasonStart DateExpiration DateVisits RequestedVisits [id number] Auto-Generated Referral [id number] / ProceduresReferred By ContactReferred To ContactCT IMAGING Diagnoses Malignant neoplasm of unspecified part of unspecified bronchus or lung (HCC) Abnormal finding on GI tract imaging Lung nodules Non-caseating granuloma Procedures CT CHEST W IVCON DIAGNOSTIC COMPUTED TOMOGRAPHY THORAX W/CONTRAST Abhyankar, Linette, MD [address] [place] [address] [address] [place] [phone] Ct Imaging [facility] Referral IDStatusReasonStart DateExpiration DateVisits RequestedVisits [id number] Auto-Generated Referral eferral IDStatusReasonStart DateExpiration DateVisits RequestedVisits [id number] Auto-Generated Referral eferral IDStatusReasonStart DateExpiration DateVisits RequestedVisits [id number] Auto-Generated Referral [id number] / ProceduresReferred By ContactReferred To ContactCT IMAGING Diagnoses Malignant neoplasm of upper lobe of right lung (HCC) Procedures CT ABD/PEL W IVCON CT ABD & PELVIS W/CONTRAST Linette Bai MD [address] [place] [address] [address] [place] [phone] Ct Imaging [place] [address] Referral IDStatusReasonStcabot DateExpiration DateVisits RequestedVisits [id number] Auto-Generated Referral Chief Complaint and Reason for Visit Chief Complaint Hx of Colon Polyps Hx of Colon PolypsReason for VisitPersonal history of colonic polyps Chief Complaint Abnormal Finding on GI Tract Chief Complaint Admit Date 2 month f/u-constipation July 22, 2024 1:56pm 3 month follow up October 16, 2024 1:35pm Reason for Visit Admit Date GERD (gastroesophageal reflux disease) N ovember 2023 1:56pm Irritable bowel syndrome with constipati on July 22, 2024 1:56pm Chief Complaint Admit Date Hospital Follow Up May 28, 2025 5:17pm Reason for Visit Admit Date Adenocarcinoma of right lung May 062024 5:17pm Essential hypertension May 28, 2 025 5:17pm Major depression, recurrent May 282024 5:17pm Nicotine dependence Emelia 24th, 2025 5:17pm Chief Complaint Admit Date Hospital Follow Up May 28, 2025 5:17pm 6W July 10, 2025 1 :27pm Reason for Visit Admit Date Adenocarcinoma of right lung May 062024 5:17pm Essential hypertension May 28, 5:17pm Hemothorax on left May 28, 2025 5:17pm Major depression, recurrent May 282024 5:17pm Multiple fractures of ribs May 5:17pm Nicotine dependence May 28, 2025 5:17pm Nondisplaced fracture of cor acoid process of left shoulder May 28, 2025 5:17pm Adenocarcinoma of right lung July 1:27pm CAD in [place] artery July 10, 2025 1:27pm Chronic systolic heart failure July 10, 2025 1:27pm COPD (chronic obstructive pulmonary dise ase) July 10, 2025 1:27pm Essential hypertension July 10 1:27pm Multiple fractures of ribs July 10, 2025 1:27pm Nicotine dependence July 10, 2025 1 :27pm UTI symptoms July 10, 2025 1 :27pm Additional Source Comments (unrecognized sect ion and content) No Status Records FoundNo Status Records FoundNo Status Records FoundNo Status Records FoundNo Status Records FoundNo Status Records FoundNo Status Records FoundNo Status Records FoundNo Status Records FoundNo Status Records Found INFORMATION SOURCE (unrecogn ized section and content) DATE CREATED AUTHOR 09/24/2021 [facility] DATE CREATED AUTHOR AUTHOR'S ORGANIZ ATION 01/19/2022 [facility] DATE CREATED AUTHOR AUTHOR'S ORGANIZ ATION 01/13/2023 [facility] DATE CREATED AUTHOR AUTHOR'S ORGANIZ ATION 02/15/2025 [facility] DATE CREATED AUTHOR AUTHOR'S ORGANIZ ATION 02/23/2025 [facility] DATE CREATED AUTHOR AUTHOR'S ORGANIZ ATION 05/07/2025 [facility] DATE CREATED AUTHOR AUTHOR'S ORGANIZ ATION 05/30/2025 [facility] DATE CREATED AUTHOR AUTHOR'S ORGANIZ ATION 06/11/2025 [facility] DATE CREATED AUTHOR AUTHOR'S ORGANIZ ATION 06/29/2025 [facility] DATE CREATED AUTHOR AUTHOR'S SEAN ATION 07/12/2025 [facility] Source Comments (unrecognize d section and content) In the event this informatio n is protected by the Federal Confidentiality of Alcohol and Drug Abuse Patient Records regulations: The Federal rules restrict any use of the information to criminally investigate or prosecute any alcohol or drug abuse patient.[facility] SystemIn the event this information is protected by the Federal Confidentiality of Alcohol and Drug Abuse Patient Records regulations: The Federal rules restrict any use of the information to criminally investigate or prosecute any alcohol or drug abuse patient.[facility] SystemIn the event this information is protected by the Federal Confidentiality of Alcohol and Drug Abuse Patient Records regulations: The Federal rules restrict any use of the information to criminally investigate or prosecute any alcohol or drug abuse patient.[facility] SystemIn the event this information is protected by the Federal Confidentiality of Alcohol and Drug Abuse Patient Records regulations: The Federal rules restrict any use of the information to criminally investigate or prosecute any alcohol or drug abuse patient.[facility] SystemIn the event this information is protected by the Federal Confidentiality of Alcohol and Drug Abuse Patient Records regulations: The Federal rules restrict any use of the information to criminally investigate or prosecute any alcohol or drug abuse patient.[facility] SystemIn the event this information is protected by the Federal Confidentiality of Alcohol and Drug Abuse Patient Records regulations: The Federal rules restrict any use of the information to criminally investigate or prosecute any alcohol or drug abuse patient.[facility] SystemIn the event this information is protected by the Federal Confidentiality of Alcohol and Drug Abuse Patient Records regulations: The Federal rules restrict any use of the information to criminally investigate or prosecute any alcohol or drug abuse patient.[facility] SystemIn the event this information is protected by the Federal Confidentiality of Alcohol and Drug Abuse Patient Records regulations: The Federal rules restrict any use of the information to criminally investigate or prosecute any alcohol or drug abuse patient.[facility] SystemIn the event this information is protected by the Federal Confidentiality of Alcohol and Drug Abuse Patient Records regulations: The Federal rules restrict any use of the information to criminally investigate or prosecute any alcohol or drug abuse patient.[facility] SystemIn the event this information is protected by the Federal Confidentiality of Alcohol and Drug Abuse Patient Records regulations: The Federal rules restrict any use of the information to criminally investigate or prosecute any alcohol or drug abuse patient.[facility] SystemIn the event this information is protected by the Federal Confidentiality of Alcohol and Drug Abuse Patient Records regulations: The Federal rules restrict any use of the information to criminally investigate or prosecute any alcohol or drug abuse patient.[facility] SystemIn the event this information is protected by the Federal Confidentiality of Alcohol and Drug Abuse Patient Records regulations: The Federal rules restrict any use of the information to criminally investigate or prosecute any alcohol or drug abuse patient.[facility] SystemIn the event this information is protected by the Federal Confidentiality of Alcohol and Drug Abuse Patient Records regulations: The Federal rules restrict any use of the information to criminally investigate or prosecute any alcohol or drug abuse patient.[facility] SystemIn the event this information is protected by the Federal Confidentiality of Alcohol and Drug Abuse Patient Records regulations: The Federal rules restrict any use of the information to criminally investigate or prosecute any alcohol or drug abuse patient.[facility] SystemIn the event this information is protected by the Federal Confidentiality of Alcohol and Drug Abuse Patient Records regulations: The Federal rules restrict any use of the information to criminally investigate or prosecute any alcohol or drug abuse patient.[facility] SystemIn the event this information is protected by the Federal Confidentiality of Alcohol and Drug Abuse Patient Records regulations: The Federal rules restrict any use of the information to criminally investigate or prosecute any alcohol or drug abuse patient.[facility] SystemIn the event this information is protected by the Federal Confidentiality of Alcohol and Drug Abuse Patient Records regulations: The Federal rules restrict any use of the information to criminally investigate or prosecute any alcohol or drug abuse patient.[facility] SystemIn the event this information is protected by the Federal Confidentiality of Alcohol and Drug Abuse Patient Records regulations: The Federal rules restrict any use of the information to criminally investigate or prosecute any alcohol or drug abuse patient.[facility] SystemIn the event this information is protected by the Federal Confidentiality of Alcohol and Drug Abuse Patient Records regulations: The Federal rules restrict any use of the information to criminally investigate or prosecute any alcohol or drug abuse patient.[facility] SystemIn the event this information is protected by the Federal Confidentiality of Alcohol and Drug Abuse Patient Records regulations: The Federal rules restrict any use of the information to criminally investigate or prosecute any alcohol or drug abuse patient.[facility] SystemIn the event this information is protected by the Federal Confidentiality of Alcohol and Drug Abuse Patient Records regulations: The Federal rules restrict any use of the information to criminally investigate or prosecute any alcohol or drug abuse patient.[facility] SystemIn the event this information is protected by the Federal Confidentiality of Alcohol and Drug Abuse Patient Records regulations: The Federal rules restrict any use of the information to criminally investigate or prosecute any alcohol or drug abuse patient.[facility] SystemIn the event this information is protected by the Federal Confidentiality of Alcohol and Drug Abuse Patient Records regulations: The Federal rules restrict any use of the information to criminally investigate or prosecute any alcohol or drug abuse patient.[facility] SystemIn the event this information is protected by the Federal Confidentiality of Alcohol and Drug Abuse Patient Records regulations: The Federal rules restrict any use of the information to criminally investigate or prosecute any alcohol or drug abuse patient.[facility] SystemIn the event this information is protected by the Federal Confidentiality of Alcohol and Drug Abuse Patient Records regulations: The Federal rules restrict any use of the information to criminally investigate or prosecute any alcohol or drug abuse patient.[facility] SystemIn the event this information is protected by the Federal Confidentiality of Alcohol and Drug Abuse Patient Records regulations: The Federal rules restrict any use of the information to criminally investigate or prosecute any alcohol or drug abuse patient.[facility] SystemIn the event this information is protected by the Federal Confidentiality of Alcohol and Drug Abuse Patient Records regulations: The Federal rules restrict any use of the information to criminally investigate or prosecute any alcohol or drug abuse patient.[facility] SystemIn the event this information is protected by the Federal Confidentiality of Alcohol and Drug Abuse Patient Records regulations: The Federal rules restrict any use of the information to criminally investigate or prosecute any alcohol or drug abuse patient.[facility] SystemIn the event this information is protected by the Federal Confidentiality of Alcohol and Drug Abuse Patient Records regulations: The Federal rules restrict any use of the information to criminally investigate or prosecute any alcohol or drug abuse patient.[facility] SystemIn the event this information is protected by the Federal Confidentiality of Alcohol and Drug Abuse Patient Records regulations: The Federal rules restrict any use of the information to criminally investigate or prosecute any alcohol or drug abuse patient.[facility] SystemIn the event this information is protected by the Federal Confidentiality of Alcohol and Drug Abuse Patient Records regulations: The Federal rules restrict any use of the information to criminally investigate or prosecute any alcohol or drug abuse patient.[facility] SystemIn the event this information is protected by the Federal Confidentiality of Alcohol and Drug Abuse Patient Records regulations: The Federal rules restrict any use of the information to criminally investigate or prosecute any alcohol or drug abuse patient.[facility] SystemIn the event this information is protected by the Federal Confidentiality of Alcohol and Drug Abuse Patient Records regulations: The Federal rules restrict any use of the information to criminally investigate or prosecute any alcohol or drug abuse patient.[facility] SystemIn the event this information is protected by the Federal Confidentiality of Alcohol and Drug Abuse Patient Records regulations: The Federal rules restrict any use of the information to criminally investigate or prosecute any alcohol or drug abuse patient.[facility] SystemIn the event this information is protected by the Federal Confidentiality of Alcohol and Drug Abuse Patient Records regulations: The Federal rules restrict any use of the information to criminally investigate or prosecute any alcohol or drug abuse patient.[facility] SystemIn the event this information is protected by the Federal Confidentiality of Alcohol and Drug Abuse Patient Records regulations: The Federal rules restrict any use of the information to criminally investigate or prosecute any alcohol or drug abuse patient.[facility] SystemIn the event this information is protected by the Federal Confidentiality of Alcohol and Drug Abuse Patient Records regulations: The Federal rules restrict any use of the information to criminally investigate or prosecute any alcohol or drug abuse patient.[facility] SystemIn the event this information is protected by the Federal Confidentiality of Alcohol and Drug Abuse Patient Records regulations: The Federal rules restrict any use of the information to criminally investigate or prosecute any alcohol or drug abuse patient.[facility] SystemIn the event this information is protected by the Federal Confidentiality of Alcohol and Drug Abuse Patient Records regulations: The Federal rules restrict any use of the information to criminally investigate or prosecute any alcohol or drug abuse patient.[facility] SystemIn the event this information is protected by the Federal Confidentiality of Alcohol and Drug Abuse Patient Records regulations: The Federal rules restrict any use of the information to criminally investigate or prosecute any alcohol or drug abuse patient.[facility] SystemIn the event this information is protected by the Federal Confidentiality of Alcohol and Drug Abuse Patient Records regulations: The Federal rules restrict any use of the information to criminally investigate or prosecute any alcohol or drug abuse patient.[facility] SystemIn the event this information is protected by the Federal Confidentiality of Alcohol and Drug Abuse Patient Records regulations: The Federal rules restrict any use of the information to criminally investigate or prosecute any alcohol or drug abuse patient.[facility] SystemIn the event this information is protected by the Federal Confidentiality of Alcohol and Drug Abuse Patient Records regulations: The Federal rules restrict any use of the information to criminally investigate or prosecute any alcohol or drug abuse patient.[facility] SystemIn the event this information is protected by the Federal Confidentiality of Alcohol and Drug Abuse Patient Records regulations: The Federal rules restrict any use of the information to criminally investigate or prosecute any alcohol or drug abuse patient.[facility] SystemIn the event this information is protected by the Federal Confidentiality of Alcohol and Drug Abuse Patient Records regulations: The Federal rules restrict any use of the information to criminally investigate or prosecute any alcohol or drug abuse patient.[facility] SystemIn the event this information is protected by the Federal Confidentiality of Alcohol and Drug Abuse Patient Records regulations: The Federal rules restrict any use of the information to criminally investigate or prosecute any alcohol or drug abuse patient.[facility] SystemIn the event this information is protected by the Federal Confidentiality of Alcohol and Drug Abuse Patient Records regulations: The Federal rules restrict any use of the information to criminally investigate or prosecute any alcohol or drug abuse patient.[facility] SystemIn the event this information is protected by the Federal Confidentiality of Alcohol and Drug Abuse Patient Records regulations: The Federal rules restrict any use of the information to criminally investigate or prosecute any alcohol or drug abuse patient.[facility] SystemIn the event this information is protected by the Federal Confidentiality of Alcohol and Drug Abuse Patient Records regulations: The Federal rules restrict any use of the information to criminally investigate or prosecute any alcohol or drug abuse patient.[facility] SystemIn the event this information is protected by the Federal Confidentiality of Alcohol and Drug Abuse Patient Records regulations: The Federal rules restrict any use of the information to criminally investigate or prosecute any alcohol or drug abuse patient.[facility] SystemIn the event this information is protected by the Federal Confidentiality of Alcohol and Drug Abuse Patient Records regulations: The Federal rules restrict any use of the information to criminally investigate or prosecute any alcohol or drug abuse patient.[facility] SystemIn the event this information is protected by the Federal Confidentiality of Alcohol and Drug Abuse Patient Records regulations: The Federal rules restrict any use of the information to criminally investigate or prosecute any alcohol or drug abuse patient.[facility] SystemIn the event this information is protected by the Federal Confidentiality of Alcohol and Drug Abuse Patient Records regulations: The Federal rules restrict any use of the information to criminally investigate or prosecute any alcohol or drug abuse patient.[facility] SystemIn the event this information is protected by the Federal Confidentiality of Alcohol and Drug Abuse Patient Records regulations: The Federal rules restrict any use of the information to criminally investigate or prosecute any alcohol or drug abuse patient.[facility] SystemIn the event this information is protected by the Federal Confidentiality of Alcohol and Drug Abuse Patient Records regulations: The Federal rules restrict any use of the information to criminally investigate or prosecute any alcohol or drug abuse patient.[facility] SystemIn the event this information is protected by the Federal Confidentiality of Alcohol and Drug Abuse Patient Records regulations: The Federal rules restrict any use of the information to criminally investigate or prosecute any alcohol or drug abuse patient.[facility] SystemIn the event this information is protected by the Federal Confidentiality of Alcohol and Drug Abuse Patient Records regulations: The Federal rules restrict any use of the information to criminally investigate or prosecute any alcohol or drug abuse patient.[facility] SystemIn the event this information is protected by the Federal Confidentiality of Alcohol and Drug Abuse Patient Records regulations: The Federal rules restrict any use of the information to criminally investigate or prosecute any alcohol or drug abuse patient.[facility] Reason for Visit (unrecogniz ed section and content) ReasonCommentsRadiology NMSpecialtyDiagnoses / ProceduresReferred By Contact Referred To ContactMOLECULAR & FUNCTIONAL IMAGING Diagnoses Lung nodules Malignant neoplasm of unspecified part of unspecified bronchus or lung (HCC) Procedures NM PET/CT SKULL-THIGH SUBSEQUENT PET IMAGING CT ATTENUATION SKULL BASE MID-THIGH Linette Bai MD [address] [place] [address] [place] [address] Molecular & Functional Imaging [address] [place] [address] Referral IDStatusReasonStart DateExpiration DateVisits RequestedVisits [id number] Auto-Generated Referral /[id number] / ProceduresReferred By ContactReferred To ContactCT IMAGING Diagnoses Cancer of trachea, bronchus, and lung (HCC) Lung nodules Procedures CT CHEST W IVCON DIAGNOSTIC COMPUTED TOMOGRAPHY THORAX W/CONTRAST Linette Bai MD [address] [place] [address] [place] [address] [facility] [place] [address] Referral IDStatusReasonStcabot DateExpiration DateVisits RequestedVisits [id number] Auto-Generated Referral /[id number] / ProceduresReferred By ContactReferred To ContactMOLECULAR & FUNCTIONAL IMAGING Diagnoses Malignant neoplasm of unspecified part of unspecified bronchus or lung (HCC) Lung nodules Procedures NM PET/CT SKULL-THIGH SUBSEQUENT PET IMAGING CT ATTENUATION SKULL BASE MID-THIGH Linette Bai MD [address] [place] [address] [place] [address] Molecular & Functional Imaging [address] [place] [address] Referral IDStatusReasonStart DateExpiration DateVisits RequestedVisits [id number] Auto-Generated Referral [id number] CTSpecialtyDiagnoses / Procedures Referred By ContactReferred To ContactMOLECULAR & FUNCTIONAL IMAGING Diagnoses Abnormal finding on GI tract imaging Malignant neoplasm of unspecified part of unspecified bronchus or lung (HCC) Procedures NM PET/CT SKULL-THIGH SUBSEQUENT PET IMAGING CT ATTENUATION SKULL BASE MID-THIGH Linette Bai MD [address] [place] [address] [place] [address] Molecular & Functional Imaging [address] [place] [address] Referral IDStatusReasonStcabot DateExpiration DateVisits RequestedVisits [id number] Auto-Generated Referral [id number]e PatientReasonCommentsAppointment ReasonCommentsEstablished PatientReasonCommentsLung Cancer4 week follow upReason CommentsResultsReasonCommentsLung CancerReasonCommentsConsultReasonCommentsLung Cancer3 week follow upReasonCommentsRecords faxedReasonCommentsLung CancerReason CommentsAppointment ConfirmationReasonCommentsLung Cancer1 month follow upReason CommentsLung CancerReasonCommentsReferral InformationGIReasonCommentsOrders ReasonCommentsMed RefillSpecialtyDiagnoses / ProceduresReferred By Contact Referred To ContactCT IMAGING Diagnoses Lung nodules Malignant neoplasm of unspecified part of unspecified bronchus or lung (HCC) Procedures CT CHEST W IVCON DIAGNOSTIC COMPUTED TOMOGRAPHY THORAX W/CONTRAST Linette Bai MD [address] [place] [address] [place] [address] [facility] [place] [address] Referral IDStatusReasonStart DateExpiration DateVisits RequestedVisits [id number] Auto-Generated Referral /[id number] CTSpecialtyDiagnoses / Procedures Referred By ContactReferred To ContactCT IMAGING Diagnoses Lower abdominal pain Malignant neoplasm of upper lobe of right lung (HCC) Procedures CT ABD/PEL W IVCON CT ABD & PELVIS W/CONTRAST Linette Bai MD [address] [place] [address] [address] [place] [id number] [facility] Referral IDStatusReasonStart DateExpiration DateVisits RequestedVisits [id number] Auto-Generated Referral /[id number] / ProceduresReferred By ContactReferred To ContactCT IMAGING Diagnoses Malignant neoplasm of unspecified part of unspecified bronchus or lung (HCC) Procedures CT CHEST W IVCON DIAGNOSTIC COMPUTED TOMOGRAPHY THORAX W/CONTRAST Linette Bai MD [address] [place] [address] [place] [address] [facility] [place] [address] Referral IDStatusReasonStart DateExpiration DateVisits RequestedVisits [id number] Auto-Generated Referral /[id number] / ProceduresReferred By ContactReferred To ContactMOLECULAR & FUNCTIONAL IMAGING Diagnoses Malignant neoplasm of unspecified part of unspecified bronchus or lung (HCC) Procedures NM PET/CT SKULL-THIGH SUBSEQUENT PET IMAGING CT ATTENUATION SKULL BASE MID-THIGH Linette Bai MD [address] [place] [address] [address] [place] [id number] Molecular & Functional Imaging [address] [place] [address] Referral IDStatusReasonStart DateExpiration DateVisits RequestedVisits [id number] Auto-Generated Referral /[id number] IDStatusReasonStart DateExpiration DateVisits RequestedVisits [id number] Auto-Generated Referral /[id number] IDStatusReasonStart DateExpiration DateVisits RequestedVisits [id number] Auto-Generated Referral /[id number] / ProceduresReferred By ContactReferred To ContactCT IMAGING Diagnoses Malignant neoplasm of unspecified part of unspecified bronchus or lung (HCC) Cancer of trachea, bronchus, and lung (HCC) Panlobular emphysema (HCC) Procedures CT CHEST W IVCON DIAGNOSTIC COMPUTED TOMOGRAPHY THORAX W/CONTRAST Lniette Bai MD [address] [place] [address] [place] [address] [facility] [place] [address] Referral IDStatusReasonStart DateExpiration DateVisits RequestedVisits [id number] Auto-Generated Referral /[id number] / ProceduresReferred By ContactReferred To ContactCT IMAGING Diagnoses Enlarged lymph node Cancer of trachea, bronchus, and lung (HCC) Procedures CT LIVER/PELVIS W IVCON CT ABD & PELVIS W/CONTRAST Linette Bai MD [address] [place] [address] [place] [address] Ct Imaging [facility]95 Referral IDStatusReasonStart DateExpiration DateVisits RequestedVisits [id number] Auto-Generated Referral [id number] / ProceduresReferred By ContactReferred To ContactCT IMAGING Diagnoses Enlarged lymph node Procedures CT CHEST W IVCON CAT SCAN OF CHEST CONTRAST Glenna Ramirez, [employer] SCIENTIST.CONTACT CENTER CONSULTANT [address] [place] [address] [address] [place] [id number] [facility]95 Referral IDStatusReasonStart DateExpiration DateVisits RequestedVisits [id number] Auto-Generated Referral /[id number] CTSpecialtyDiagnoses / Procedures Referred By ContactReferred To ContactCT IMAGING Diagnoses Malignant neoplasm of unspecified part of unspecified bronchus or lung (HCC) Abnormal finding on GI tract imaging Procedures CT CHEST W IVCON DIAGNOSTIC COMPUTED TOMOGRAPHY THORAX W/CONTRAST Linette Bai MD [address] [place] [address] DR [address], [facility] [facility] [place] [address] Referral IDStatusReasonStart DateExpiration DateVisits RequestedVisits [id number] Auto-Generated Referral //[id number] Cancer3 month follow upReasonOnset Date CommentsMed Xylrgb354ReasonOnset DateCommentsMed Gzzvwh494Reason Onset DateCommentsMed Ckrxfz594ReasonOnset DateCommentsMed Refill 4ReasonCommentsFollow-ps8eJzvyflpyiLyifhzgnp / ProceduresReferred By ContactReferred To ContactCT IMAGING Diagnoses Malignant neoplasm of unspecified part of unspecified bronchus or lung (HCC) Abnormal finding on GI tract imaging Lung nodules Non-caseating granuloma Procedures CT CHEST W IVCON DIAGNOSTIC COMPUTED TOMOGRAPHY THORAX W/CONTRAST Linette Bai MD [address] [place] [address] DR [address], [facility] [facility] [place] [address] Referral IDStatusReasonStart DateExpiration DateVisits RequestedVisits [id number] Auto-Generated Referral /[id number] DateCommentsMed Ohifiz4009/27/2024ReasonOnset Date CommentsMed Wkorvp7510/01/2024ReasonCommentsFollow-upCT: 3PFT: 07/31/2023 COPDReasonOnset DateCommentsMed Xlkkys9710/15/2024SpecialtyDiagnoses / Procedures Referred By ContactReferred To ContactCT IMAGING Diagnoses Malignant neoplasm of upper lobe of right lung (HCC) Procedures CT CHEST W IVCON DIAGNOSTIC COMPUTED TOMOGRAPHY THORAX W/CONTRAST Linette Bai MD [address] [place] [address] DR D[address], [facility]70 Phone: tel: fax: [facility] [place] [address] Referral IDStatusReasonStart DateExpiration DateVisits RequestedVisits [id number] Auto-Generated Referral /[id number]keTvmnvwCpddn DateCommentsMed Refill 01/13/2025ReasonOnset DateCommentsMed Gbowke7801/14/2025ReasonCommentsMedicare Annual Wellness Visit InitialReasonCommentsFollow-upPFT: 02/18/2025OPDReason Onset DateCommentsMed Ycnuvl7104/07/2025ReasonCommentsFallSpecialtyDiagnoses / ProceduresReferred By ContactReferred To Contact Diagnoses Bradycardia Hemothorax on left [facility] [address] [place] [address] Phone: tel: fax: Referral IDStatusReasonStart DateExpiration DateVisits RequestedVisits [id number] UpdateReasonOnset DateComments Medication Ptdvpoh2805/03/2025ReasonOnset DateCommentsMed Ibiaul9305/03/2025Reason CommentsHospital Follow-upLeft coracoid process fx, XRDFractureReasonComments FYI-No Action NeededReasonCommentsCancer of trachea, bronchus, and lungFollow up ReasonOnset DateCommentsRefill Gpdzwsm3205/08/2025ReasonCommentsCOPDCXR: 04/23/2025PFT: 02/20/2025 Care Teams (unrecognized sec tion and content) Team Status: Active Member Role Status Dates Shaikh Lowell MD Primary Care Provider Active Team Status: Inactive Member Role Status Dates Shaikh Lowell MD Primary Care Provider Active Paramjit Spring MDAttending ProviderActiveTeam MemberRelationshipSpecialty Start DateEnd Date Shaikh Etienne MD [address] [place] [address] PCP - GeneralPrimary Care01/13/21Team MemberRelationshipSpecialtyStart DateEnd Date Shaikh Etienne MD [address] [place] [address] PCP - GeneralPrimary Care01/13/21 Jj Ayoub MD [address] [place] [address] CardiologistCardiology01/04/22Team MemberRelationshipSpecialtyStart DateEnd Date Shaikh Etienne MD [address] [place] [address] PCP - GeneralPrimary Care01/13/21 Jj Ayoub MD [address] [place] [address] CardiologistCardiology01/04/22Team MemberRelationshipSpecialtyStart DateEnd Date Shaikh Etienne MD [address] [place] [address] PCP - GeneralPrimary Care01/13/21 Jj Ayoub MD [address] [place] [address] CardiologistCardiology01/04/22Team MemberRelationshipSpecialtyStart DateEnd Date Shaikh Etienne MD [address] [place] [address] PCP - GeneralPrimary Care01/13/21 Jj Ayoub MD [address] [place] [address] CardiologistCardiology01/04/22Team MemberRelationshipSpecialtyStart DateEnd Date Shaikh Etienne MD [address] [place] [address] PCP - GeneralPrimary Care01/13/21 Jj Ayobu MD [address] [place] [address] CardiologistCardiology01/04/22Team MemberRelationshipSpecialtyStart DateEnd Date Shaikh Etienne MD [address] [place] [address] PCP - GeneralPrimary Care01/13/21 Jj Ayoub MD [address] [place] [address] CardiologistCardiology01/04/22 Team Status: Inactive Member Role Status Dates Shaikh Lowell MD Primary Care Provider Active Krzysztof Queen , Attinés ProviderActiveTeam MemberRelationshipSpecialtyStart DateEnd Date Shaikh Etienne MD [address] [place] [place] [address] [facility]01/13/21 Jj Ayoub MD [address] [place] [address] CardiologistCardiology01/04/22 Richard Lentz, [address] [address] [address] Internal Medicine09/15/22Team MemberRelationshipSpecialtyStart DateEnd Date Shaikh Etienne MD [address] [place] [address] PCP - GeneralPrimary Care01/13/21 Jj Ayoub MD [address] [facility] [place] [address] CardiologistCardiology01/04/22 Richard Lentz, DO [address] [facility] [place] [address] Internal Medicine09/15/22Team MemberRelationshipSpecialtyStart DateEnd Date Shaikh Etienne MD [address] [place] [address] PCP - GeneralPrimary Care01/13/21 Jj Ayoub MD [address] [facility] MESAJordan [place] [address] CardiologistCardiology01/04/22 Richard Lentz, DO [address] [place], [place] [address] [address] Internal Medicine09/15/22Team MemberRelationshipSpecialtyStart DateEnd Date Shaikh Etienne MD [address] [place] [address] PCP - GeneralPrimary Care01/13/21 Jj Ayoub MD [address] [facility] [place] [address] CardiologistCardiology01/04/22 Richard Lentz, DO [address] [facility] [place] [address] Internal Medicine09/15/22Team MemberRelationshipSpecialtyStart DateEnd Date Shaikh Etienne MD [address] [place] [address] PCP - GeneralPrimary Care01/13/21 Jj Ayoub MD [address] [facility] [place] [address] CardiologistCardiology01/04/22 Richard Lentz, DO [address] [facility] [place] [address] Internal Medicine09/15/22Te MemberRelationshipSpecialtyStart DateEnd Date Shaikh Etienne MD [address] [place] [address] PCP - GeneralPrimary Care01/13/21 Jj Ayoub MD [address] [place] [address] CardiologistCardiology01/04/22 Richard Lentz, DO [address] [facility] [place] [address] Internal Medicine09/15/22Te MemberRelationshipSpecialtyStart DateEnd Date Shaikh Etienne MD [address] [place] [address] PCP - GeneralPrimary Care01/13/21 Jj Ayoub MD [address] [place] [address] CardiologistCardiology01/04/22 Richard Lentz, DO [address] [place] [address] Internal Medicine09/15/22Te MemberRelationshipSpecialtyStart DateEnd Date Shaikh Etienne MD [address] [place] [address] PCP - GeneralPrimary Care01/13/21 Jj Ayoub MD [address] [place] [address] CardiologistCardiology01/04/22 Richard Lentz DO [address] [facility] [place] [address] Internal Medicine09/15/22Team MemberRelationshipSpecialtyStart DateEnd Date Shaikh Etienne MD [address] [place] [address] PCP - GeneralPrimary Care01/13/21 Jj Ayoub MD [address] [place] [address] CardiologistCardiology01/04/22 Richard Lentz, [address] [facility] [place] [address] Internal Medicine09/15/22Te MemberRelationshipSpecialtyStart DateEnd Date Shaikh Etienne MD [address] [place] [address] PCP - GeneralPrimary Care01/13/21 Jj Ayoub MD [address] [place] [address] CardiologistCardiology01/04/22 Richard Lentz DO [address] [place] [address] Internal Medicine09/15/22Te MemberRelationshipSpecialtyStart DateEnd Date Shaikh Etienne MD [address] [place] [address] PCP - GeneralPrimary Care01/13/21 Jj Ayoub MD [address] [facility] [place] [address] CardiologistCardiology01/04/22 Richard Lentz DO [address] [place] [address] Internal Medicine09/15/22Te MemberRelationshipSpecialtyStart DateEnd Date Shaikh Etienne MD [address] [place] [address] PCP - GeneralInternal Medicine09/22/23Te MemberRelationshipSpecialtyStart Date End Date Shaikh Etienne MD [address] [place] [address] PCP - GeneralPrimary Care01/13/21 Jj Ayoub MD [address] [facility] [place] [address] CardiologistCardiology01/04/22 Richard Lentz DO [address] [place] [address] Internal Medicine09/15/22Team MemberRelationshipSpecialtyStart DateEnd Date Shaikh Etienne MD [address] [place] [address] PCP - GeneralPrimary Care01/13/21 Jj Ayoub MD [address] [facility] [place] [address] CardiologistCardiology01/04/22 Richard Lentz DO [address] [place] [address] Internal Medicine09/15/22Te MemberRelationshipSpecialtyStart DateEnd Date Shaikh Etienne MD [address] [place] [address] PCP - GeneralPrimary Care01/13/21 Jj Ayoub MD [address] [facility] [place] [address] CardiologistCardiology01/04/22 Richard Lentz, DO [address] [place], [place] [address] [address] Internal Medicine09/15/22Team MemberRelationshipSpecialtyStart DateEnd Date Shaikh Etienne MD [address] SilvaFranz [place] [address] PCP - GeneralPrimary Care01/13/21 Jj Ayoub MD [address] [facility] [place] [address] CardiologistCardiology01/04/22 Richard Lentz DO [address] [place] [address] Internal Medicine09/15/22Team MemberRelationshipSpecialtyStart DateEnd Date Shaikh Etienne MD [address] [place] [address] PCP - GeneralPrimary Care01/13/21 Jj Ayoub MD [address] [facility] [place] [address] CardiologistCardiology01/04/22 Richard Lentz DO [address] [facility] [place] [address] Internal Medicine09/15/22Team MemberRelationshipSpecialtyStart DateEnd Date Shaikh Etienne MD [address] [place] [address] PCP - GeneralPrimary Care01/13/21 Jj Ayoub MD [address] [facility] [place] [address] CardiologistCardiology01/04/22 Richard Lentz DO [address] [place] [address] Internal Medicine09/15/22Team MemberRelationshipSpecialtyStart DateEnd Date Shaikh Etienne MD [address] [place] [address] PCP - GeneralPrimary Care01/13/21 Jj Ayoub MD [address] [place] [address] CardiologistCardiology01/04/22 Richard Lentz DO [address] [place] [address] Internal Medicine09/15/22Team MemberRelationshipSpecialtyStart DateEnd Date Shaikh Etienne MD [address] [place] [address] PCP - GeneralPrimary Care01/13/21 Jj Ayoub MD [address] [place] [address] CardiologistCardiology01/04/22 Richard Lentz DO [address] [place] [address] Internal Medicine09/15/22Team MemberRelationshipSpecialtyStart DateEnd Date Shaikh Etienne MD [address] [place] [address] PCP - GeneralPrimary Care01/13/21 Jj Ayoub MD [address] [place] [address] CardiologistCardiology01/04/22 Richard Lentz DO [address] [place] [address] Internal Medicine09/15/22Te MemberRelationshipSpecialtyStart DateEnd Date Shaikh Etienne MD [address] [place] [address] PCP - GeneralPrimary Care01/13/21 Jj Ayoub MD [address] [place] [address] CardiologistCardiology01/04/22 Tor Richardcortney Quiroz DO [address] [place] [address] Internal Medicine09/15/22Te MemberRelationshipSpecialtyStart DateEnd Date Shaikh Etienne MD [address] [place] [address] PCP - GeneralPrimary Care01/13/21 Jj Ayoub MD [address] [place] [address] CardiologistCardiology01/04/22 Tor Richardcortney Quiroz DO [address] [place] [address] Internal Medicine09/15/22Te MemberRelationshipSpecialtyStart DateEnd Date Shaikh Etienne MD [address] [place] [address] PCP - GeneralPrimary Care01/13/21 Jj Ayoub MD [address] [place] [address] CardiologistCardiology01/04/22 Richard Lentz [address] [place] [address] Internal Medicine09/15/22Team MemberRelationshipSpecialtyStart DateEnd Date Shaikh Etienne MD [address] [place] [address] PCP - GeneralPrimary Care01/13/21 Jj Ayoub MD [address] [facility] [place] [address] CardiologistCardiology01/04/22 Tor Richardcortney Quiroz DO [address] [place] [address] Internal Medicine09/15/22Team MemberRelationshipSpecialtyStart DateEnd Date Shaikh Etienne MD [address] [place] [address] PCP - GeneralPrimary Care01/13/21 Jj Ayoub MD [address] [place] [address] CardiologistCardiology01/04/22Team MemberRelationshipSpecialtyStart DateEnd Date Shaikh Etienne MD [address] [place] [address] PCP - GeneralPrimary Care01/13/21 Jj Ayoub MD [facility] [place] [address] CardiologistCardiology01/04/22Team MemberRelationshipSpecialtyStart DateEnd Date Shaikh Etienne MD [address] [place] [address] PCP - GeneralPrimary Care01/13/21Team MemberRelationshipSpecialtyStart DateEnd Date Shaikh Etienne MD [address] [place] [address] PCP - GeneralPrimary Care01/13/21Team MemberRelationshipSpecialtyStart DateEnd Date Tom Benton MD [address] [place] [address] PCP - GeneralFamily Medicine04/16/24 Jasen Vasques NP [address] [place] [address] Nurse PractitionerFamily Medicine04/16/24Team MemberRelationshipSpecialtyStart DateEnd Date Tom Benton MD [address] [place] [address] PCP - GeneralFamily Medicine04/16/24 Jasen Vasques NP [address] [place] [address] Nurse PractitionerUnitypoint Health-Bl[facility] Children'[facility] Hospitally Medicine04/16/24Team MemberRelationshipSpecialtyStart DateEnd Date Shaikh Etienne MD [address] [place] [address] PCP - GeneralPrimary Care01/13/21 Jj Ayoub MD [address] [facility] [place] [address] CardiologistCardiology01/04/22 Richard Lentz DO [address] [facility] [place] [address] Internal Medicine09/15/22Team MemberRelationshipSpecialtyStart DateEnd Date Shaikh Etienne MD [address] [place] [address] PCP - GeneralPrimary Care01/13/21 Jj Ayoub MD [address] [facility] [place] [address] CardiologistCardiology01/04/22 Richard Lentz DO [address] [facility] [place] [address] Internal Medicine09/15/22Team MemberRelationshipSpecialtyStart DateEnd Date Tom Benton MD [address] [place] [address] [facility] - [facility] Bywmriwq34/31/24 Jasen Vasques, CHELLE [address] [place] [address] Nurse [facility]04/16/24Team MemberRelationshipSpecialtyStart DateEnd Date Tom Benton MD [address] [place] [address] PCP - [facility]07/04/24 Jasen Vasques NP [address] [place] [address] Nurse Pract[facility]St[facility]04/16/24Team MemberRelationshipSpecialtyStart DateEnd Date Tom Benton MD [address] [place] [address] PCP - [facility]04/16/24 Jasen Vasques NP [address] [place] [address] Nurse [facility]04/16/24Team MemberRelationshipSpecialtyStart DateEnd Date Tom Benton MD [address] [place] [address] PCP - [facility]04/16/24 Jasen Vasques NP [address] [place] [address] Nurse [facility]04/16/24Team MemberRelationshipSpecialtyStart DateEnd Date Tom Benton MD [address] [place] [address] PCP - [facility]04/16/24 Jasen Vasques, CHELLE [address] [place] [address] Nurse [facility]04/16/24Team MemberRelationshipSpecialtyStart DateEnd Date Tom Benton MD [address] [place] [address] PCP - [facility]07/04/24 Jasen Vasques, CHELLE [address] [place] [address] Nurse [facility]04/16/24Team MemberRelationshipSpecialtyStart DateEnd Date Tom Benton MD [address] [place] [address] PCP - [facility]07/04/24 Jasen Vasques, CHELLE [address] [place] [address] Nurse [facility]04/16/24Team MemberRelationshipSpecialtyStart DateEnd Date Tom Benton MD [address] [place] [address] PCP - GeneralFamily Hkxyzuvp00/31/24 Jasen Vasques NP [address] [place] [address] [place] [address] Nurse PractitionerUnitypoint Health-Blank Children'S Hospitally Medicine04/16/24Team MemberRelationshipSpecialtyStart DateEnd Date Shaikh Etienne MD [address] [place] [address] PCP - GeneralPrimary Care01/13/21 Jj Ayoub MD [address] [place] [address] CardiologistCardiology01/04/22 Richard Lentz DO [address] [place] [address] Internal Medicine09/15/22Team MemberRelationshipSpecialtyStart DateEnd Date Shaikh Etienne MD PCP - GeneralInternal Ydxtncsf61/16/22Team MemberRelationshipSpecialtyStart Date End Date Shaikh Etienne MD [address] [place] [address] PCP - GeneralPrimary Care01/13/21 Jj Ayoub MD [address] [place] [address] CardiologistCardiology01/04/22 Richard Lentz DO [address] [place] [address] Internal Medicine09/15/22Team MemberRelationshipSpecialtyStart DateEnd Date Shaikh Etienne MD [address] [place] [address] PCP - GeneralPrimary Care01/13/21 Jj Ayoub MD [address] [facility] [place] [address] CardiologistCardiology01/04/22 Richard Lentz DO [address] [facility] [place] [address] Internal Medicine09/15/22Team MemberRelationshipSpecialtyStart DateEnd Date Tom Benton MD [address] [place] [address] PCP - GeneralFamily Afaxezuq26/31/24 Jasen Vasques NP [address] [place] [address] Nurse PractitionerFamily Medicine04/16/24Team MemberRelationshipSpecialtyStart DateEnd Date Shaikh Etienne MD [address] [place] [address] PCP - GeneralPrimary Care01/13/21 Jj Ayoub MD [address] [facility] [place] [address] CardiologistCardiology01/04/22 Tor Richardcortney JuneeDO [facility] [place] [address] Internal Medicine09/15/22Team MemberRelationshipSpecialtyStart DateEnd Date Tom Benton MD [address] [place] [address] PCP - GeneralFamily Bukccdlq23/31/24 Jasen Vasques, CHELLE [address] [place] [address] Nurse Practitionermily Medicine04/16/24Team MemberRelationshipSpecialtyStart DateEnd Date Tom Benton MD [address] [place] [address] PCP - GeneralFamily Olwismla18/31/24 Jasen Vasques, CHELLE [address] [place] [address] Nurse Practitionermily Medicine04/16/24Team MemberRelationshipSpecialtyStart DateEnd Date Shaikh Etienne MD PCP - GeneralInternal Dviizizt05/16/22Team MemberRelationshipSpecialtyStart Date End Date Shaikh Etienne MD [address] [place] [address] PCP - GeneralInternal Nzhbenmm03/16/22Team MemberRelationshipSpecialtyStart Date End Date Tom Benton MD [address] [place] [address] PCP - [facility]07/04/24 Jasen Vasques NP [address] [place] [address] Nurse [facility]04/16/24 Team Status: Inactive Member Role Status Dates Shaikh Lowell MD Primary Care Provider Active Start: July 22, 2024 End: July 22Elieser Roland ProviderActiveStart: July 22, 2024 End: July 22, 2024 Team Status: Inactive Member Role Status Dates Shaikh Lowell MD Primary Care Provider Active Start: October 16, 2024 End: October 16, 2024Elieser Navarro ProviderActiveStart: October 16, 2024 End: October 16, 2024Team MemberRelationshipSpecialtyStart DateEnd Date Shaikh Etienne MD PCP - GeneralSoutheast Arizona Medical Centernal Oihyrigg32/16/22Team MemberRelationshipSpecialtyStart Date End Date Tom Benton MD [address] [place] [address] PCP - [facility]St[facility]07/04/24 Jasen Vasques NP Nurse PractitionerSt[facility]04/16/24Team MemberRelationshipSpecialtyStart DateEnd Date Shaikh Etienne MD [address] [place] [address] PCP - GeneralPrimary Care01/13/21 Jj Ayoub MD [address] [place] [address] CardiologistCardiology01/04/22 Richard Lentz DO [address] [place] [address] Internal Medicine09/15/22Team MemberRelationshipSpecialtyStart DateEnd Date Shaikh Etienne MD [address] [place] [address] PCP - GeneralPrimary Care01/13/21 Jj Ayoub MD [address] [place] [address] CardiologistCardiology01/04/22 Richard Lentz DO [address] [place] [address] Internal Medicine09/15/22Te MemberRelationshipSpecialtyStart DateEnd Date Shaikh Etienne MD [address] [place] [address] PCP - GeneralPrimary Care01/13/21 Jj Ayoub MD [address] [place] [address] CardiologistCardiology01/04/22 Richard Lentz DO [address] [place] [address] Internal Medicine09/15/22Team MemberRelationshipSpecialtyStart DateEnd Date Tom Benton MD [address] [place] [address] PCP - GeneralFamily Ccasvwgm50/31/24 Jasen Vasques NP [facility] Medicine04/16/24Team MemberRelationshipSpecialtyStart DateEnd Date Tom Benton MD [address] [place] [address] PCP - GeneralFami Htkkhpfx23/31/24 Jasen Vasques NP Nurse Pract[facility]erH[facility] Hospital Medicine04/16/24Team MemberRelationshipSpecialtyStart DateEnd Date Tom Benton MD [address] [place] [address] PCP - GeneralFamily Pjpvnuxm30/31/24 Jasen Vasques NP Nurse Pract[facility]erH[facility] Hospital Medicine04/16/24Team MemberRelationshipSpecialtyStart DateEnd Date Tom Benton MD [address] [place] [address] PCP - GeneralFamily Mpqfgziz01/31/24 Jasen Vasques NP Nurse Pract[facility]erH[facility] Medicine04/16/24Team MemberRelationshipSpecialtyStart DateEnd Date Tom Benton MD [address] [place] [address] PCP - GeneralFamily Ptvpglnk76/31/24 Jasen Vasques NP Nurse Practitionermily Medicine04/16/24Team MemberRelationshipSpecialtyStart DateEnd Date Tom Benton MD [address] [place] [address] PCP - [facility] Owlstbnm63/31/24 Jasen Vasques NP Nurse Pract[facility]erH[facility]emann Hospital Medicine04/16/24Team MemberRelationshipSpecialtyStart DateEnd Date Shaikh Etienne MD [address] [place] [address] PCP - GeneralAt[facility] Providencery Care01/13/21 Jj Ayoub MD [address] [place] [address] CardiologistCardiology01/04/22 Richard Lentz DO [address] [place] [address] Internal Medicine09/15/22Team MemberRelationshipSpecialtyStart DateEnd Date Tom Benton MD [address] [place] [address] PCP - [facility] Tzgekpbd81/31/24 Jasen Vasques NP Nurse PractitionerFamily Medicine04/16/24Team MemberRelationshipSpecialtyStart DateEnd Date Shaikh Etienne MD [address] [place] [address] PCP - GeneralPrcarolinaeast medical centerry Care01/13/21 Jj Ayoub MD [address] [place] [address] CardiologistCardiology01/04/22 Richard Lentz DO [address] [place] [address] Internal Medicine09/15/22Team MemberRelationshipSpecialtyStart DateEnd Date Tom Benton MD [address] [place] [address] PCP - GeneralUnitypoint Health-Bl[facility] Children'[facility] Hospitally Umsqxzep99/31/24 Jasen Vasques NP Nurse PractitionerUnitypoint Health-Bl[facility] Children[facility] Hospitally Medicine04/16/24Team MemberRelationshipSpecialtyStart DateEnd Date Tom Benton MD [address] [place] [address] PCP - GeneralFamily Ndpbmpxc87/31/24 Jasen Vasques NP Nurse Practitionermily Medicine04/16/24Team MemberRelationshipSpecialtyStart DateEnd Date Tom Benton MD [address] [place] [address] PCP - GeneralFamily Zlkcjgxo54/31/24 Jasen Vasques NP Nurse PractitionerFamily Medicine04/16/24Team MemberRelationshipSpecialtyStart DateEnd Date Shaikh Etienne MD PCP - GeneralInternal Qehrokma68/16/22Team MemberRelationshipSpecialtyStart Date End Date Shaikh Etienne MD [address] [place] [address] PCP - GeneralPrimary Care01/13/21 Jj Ayoub MD [address] [place] [address] CardiologistCardiology01/04/22 Richard Lentz DO [address] [place] [address] Internal Medicine09/15/22Team MemberRelationshipSpecialtyStart DateEnd Date Jean-Claude Heaton APRN-CONTACT CENTER CONSULTANT [address] [place] [address] PCP - GeneralNurse Practitioner04/14/25Team MemberRelationshipSpecialtyStart Date End Date Jean-Claude Heaton APRN-CONTACT CENTER CONSULTANT [address] [place] [address] PCP - GeneralNurse Practitioner04/14/25Team MemberRelationshipSpecialtyStart Date End Date Shaikh Etienne MD [address] [place] [address] PCP - GeneralPrimary Care01/13/21 Jj Ayoub MD [address] [place] [address] CardiologistCardiology01/04/22 Richard Lentz DO [address] [place] [address] Internal Medicine09/15/22Team MemberRelationshipSpecialtyStart DateEnd Date Jean-Claude Heaton APRN-[facility] [address] [place] [address] PCP - GeneralNurse Practitioner04/14/25Team MemberRelationshipSpecialtyStart Date End Date Jean-Claude Heaton, BIOFUELS RESEARCH SCIENTIST-[facility] [address] [place] [address] PCP - GeneralNurse Practitioner04/14/25Team MemberRelationshipSpecialtyStart Date End Date Shaikh Etienne MD [address] [place] [address] PCP - GeneralPrimary Care01/13/21 Jj Ayoub MD [address] [place] [address] CardiologistCardiology01/04/22 Richard Lentz [address] [place] [address] Internal Medicine09/15/22 Linette Bai MD [address] [place] [address] [place] [address] Hematology/Oncology05/08/25Team MemberRelationshipSpecialtyStart DateEnd Date Shaikh Etienne MD [address] [place] [address] PCP - GeneralPrimary Care01/13/21 Jj Ayoub MD [address] [place] [address] CardiologistCardiology01/04/22 Tor Richard Quiroz [address] [place] [address] Internal Medicine09/15/22 Linette Bai MD [address] [place] [address] [place] [address] Hematology/Oncology05/08/25Team MemberRelationshipSpecialtyStart DateEnd Date Shaikh Etienne MD [address] [place] [address] PCP - GeneralPrimary Care01/13/21 Jj Ayoub MD [address] [place] [address] CardiologistCardiology01/04/22 Richard Lentz [address] [place] [address] Internal Medicine09/15/22 Linette Bai MD [address] [place] [address] Hematology/Oncology05/08/25Team MemberRelationshipSpecialtyStart DateEnd Date Shaikh Etienne MD [address] [place] [place] [address] PCP - GeneralPrimary Care01/13/21 Jj Ayoub MD [address] [place] [address] CardiologistCardiology01/04/22 Richard Lentz [address] [place] [address] Internal Medicine09/15/22 Linette Bai MD [address] [place] [address] Hematology/Oncology05/08/25 Team Status: Inactive Member Role Status Dates Shaikh Lowell MD Primary Care Provider Active Start: May 28, 2025 End: May 28, 2025Jean-Claude Heaton NP-CAttending ProviderActiveStart: May 28, 2025 End: May 28, 2025Team MemberRelationshipSpecialtyStart DateEnd Date Jean-Claude Heaton, BIOFUELS RESEARCH SCIENTIST-CONTACT CENTER CONSULTANT [address] [place] [address] PCP - GeneralNurse Practitioner04/14/25Team MemberRelationshipSpecialtyStart Date End Date Tom Benton MD PCP - Generalmily Ajptppar80/31/24 Jasen Vasques NP Nurse PractitionerH[facility] Hospital Medicine04/16/24Team MemberRelationshipSpecialtyStart DateEnd Date Shaikh Etienne MD PCP - GeneralInternal Medicine Tom Benton MD PCP - GeneralUnitypoint Health-Blank Children'[facility] Hospitally Medicine04/16/2410 Unallocated, Sheila Canada MD [address] [place] [address] PCP - Generalmily Jrfoexmr15/22/ Tom Benton MD PCP - GeneralUnitypoint [facility]ally Pqivaqlq74/31/24 aJsen Vasques NP Nurse PractitionerHahnemann Hospital Medicine04/16/24Team MemberRelationshipSpecialtyStart DateEnd Date Tom Benton MD PCP - GeneralUnitypoint Health-Blank Children'[facility] Hospitally Medicine04/16/2410 Unallocated, Sheila Canada MD [address] [facility] [place] [place] [address] PCP - Generalmily Tcottvjt94/22/ Tom Benton MD PCP - [facility]07/04/24 Jasen Vasques NP Nurse PractitionerSt[facility]04/16/24Team MemberRelationshipSpecialtyStart DateEnd Date Tom Benton MD PCP - [facility]07/04/24 Jasen Vasques NP Nurse PractitionerSt[facility]04/16/24 Team Status: Inactive Member Role/Relationship Status Dates Shaikh Lowell MD Primary Care Provider Active Start: May 28, 2025 End: May 28, 2025Jean-Claude Heaton CYBER SOFTWARE ENGINEER-CAttending ProviderActiveStart: May 28, 2025 End: May 28, 2025 Team Status: Inactive Member Role/Relationship Status Dates Jean-Claude Heaton CYBER SOFTWARE ENGINEER-C Primary Care Provider Active Start: July 10, 2025 End: July 10, 2025Jean-Claude Heaton CYBER SOFTWARE ENGINEER-CAttending ProviderActiveStart: July 10, 2025 End: July 10, 2025 Team Status: Inactive Member Role/Relationship Status Dates Jean-Claude Heaton NP-C Attending Provider Active Start: July 10, 2025 End: July 10, 2025 Team Status: Active Member Role/Relationship Status Dates Jean-Claude Heaton NP-C Primary Care Provider Active Team Status: Inactive Member Role/Relationship Status Dates Shaikh Lowell MD Primary Care Provider Active Start: May 28, 2025 End: May 28, 2025Jean-Claude Heaton CYBER SOFTWARE ENGINEER-CAttending ProviderActiveStart: May 28, 2025 End: May 28, 2025 Team Status: Inactive Member Role/Relationship Status Dates Jean-Claude Heaton CYBER SOFTWARE ENGINEER-C Primary Care Provider Active Start: July 10, 2025 End: July 10, 2025Jean-Claude Heaton NP-CAttending ProviderActiveStart: July 10, 2025 End: July 10, 2025 Goals (unrecognized section and content) Goals may be documented in a n alternate section Scheduled Active and Recently Administ ered Medications (unrecognized section and content) Medication Order// acetaminophen (TYLENOL EXTRA STRENGTH) tablet 1,000 mg(Linked Group 1) 1,000 mg, oral, Every 6 hours, First dose on Mon04/14/25 at 0600 * 0600 (Hold - Provider: Tanya Beckwith RN - Reason: Reassess at later date) * 1247 (Given - Provider: Abhay Richey RN) * 1826 (Not Given - Provider: Abhay Richey RN - Reason: Patient/family refused) * 0030 (Given - Provider: Tanya Beckwith RN) * 0557 (Given - Provider: Tanya Beckwith RN) * 1141 (Given - Provider: Greg Tariq) * 1802 (Given - Provider: Myrtle Major RN) * 0000 (Not Given - Provider: Timothy Sheppard RN - Reason: Patient/family refused) * 0532 (Given - Provider: Timothy Sheppard, RN) * 1146 (Given - Provider: Myrtle Major RN) acetaminophen (TYLENOL) 650 mg/20.3 mL solution 1,000 mg(Linked Group 1) 1,000 mg, nasogastric, Every 6 hours, First dose on Mon04/14/25 at 0600, administer via nasogastricroute if unable to tolerate oral medications * 0600 (See Alternative - Provider: Tanya Beckwith RN) * 1247 (See Alternative - Provider: Abhay Richey RN) * 1826 (See Alternative - Provider: Abhay Richey RN) * 0030 (See Alternative - Provider: Tanya Beckwith RN) * 0557 (See Alternative - Provider: Tanya Beckwith RN) * 1141 (See Alternative - Provider: Greg Tariq) * 1802 (See Alternative - Provider: Myrtle Major RN) * 0000 (See Alternative - Provider: Timothy Sheppard RN) * 0532 (See Alternative - Provider: Timothy Sheppard RN) * 1146 (See Alternative - Provider: Myrtle Major RN) atorvastatin (LIPITOR) tablet 40 mg 40 mg, oral, Nightly, First dose on Mon04/15/25 at 2230, Look-alike/sound-alike medication - verifyindication for use. * 2131 (Given - Provider: Tanya Beckwith RN) * 2022 (Given - Provider: Timothy Sheppard, RN) busPIRone (BUSPAR) tablet 30 mg 30 mg, oral, 2 times daily, First dose on Mon04/14/25 at 2100, Look-alike/sound-alike medication - verify indication for use. Avoid grapefruit juice. * 0856 (Given - Provider: Abhay Richey RN) * 2132 (Given - Provider: Tanya Beckwith RN) * 0846 (Given - Provider: Greg Tariq) * 2022 (Given - Provider: Timothy Sheppard, RN) * 0747 (Given - Provider: Myrtle Major RN) enoxaparin (LOVENOX) syringe 30 mg 30 mg, subcutaneous, Every 12 hours, First dose on Mon04/15/25 at 2315, Trauma dosing Look-alike/sound-alike medication - verify indication for use. * 1247 (Given - Provider: Abhay Richey RN) * 0030 (Given - Provider: Tanya Beckwith RN) * 1141 (Given - Provider: Greg Tariq) * 2351 (Given - Provider: Timothy Sheppard, RN) * 1146 (Given - Provider: Myrtle Major RN) fluticasone furoate-vilanteroL (BREO ELLIPTA) 200-25 mcg/dose inhaler 1 puff (Linked Group 2) 1 puff, inhalation, Daily, First dose on Mon04/14/25 at 0900, Administer fluticasone furoate-vilanterol (BREO ELLIPTA) 200-25 mcg/dose inhaler in addition to umeclidinium (INCRUSE ELLIPTA) 62.5 mcg/dose inhaler as a replacement for uicmdsgnovj-idqxvshrzkgd-vckfsibqng (TRELEGY ELLIPTA) inhaler 200-62.5-25 mcg/dose. * 0858 (Given - Provider: Abhay Richey RN) * 0847 (Given - Provider: Greg Tariq) * 0747 (Given - Provider: Myrtle Major RN) furosemide (LASIX) tablet 40 mg 40 mg, oral, Daily, First dose on Mon04/18/25 at 1600, Look-alike/sound-alike medication - verify indication for use. * 1538 (Given - Provider: Abhay Richey, JERONIMO) * 1610 (Given - Provider: Myrtle Major, JERONIMO) * 1546 (Given - Provider: Myrtle Major RN) haloperidol lactate (HALDOL) injection 5 mg (COMPLETED) 5 mg, intravenous, Once, On Mon04/22/25 at 0230, For 1 dose, IV Haldol requires monitored bed * 0227 (Given - Provider: Tanya Beckwith RN) ipratropium-albuteroL (DUONEB) 0.5 mg-3 mg(2.5 mg base)/3 mL nebulizer solution 3 mL 3 mL, nebulization, Every 4 hours while awake, First dose on Mon04/14/25 at 0700, Implement INPATIENT/ED Bronchodilator Clinical Practice Guidelines? Yes * 0754 (Given - Provider: Rai Joiner RCP) * 1112 (Given - Provider: Rai Joiner RCP) * 1543 (Given - Provider: Rai Joiner RCP) * 2026 (Given - Provider: Peggy Cabrera RCP) * 0839 (Given - Provider: Rai Joiner RCP) * 1235 (Given - Provider: Rai Joiner RCP) * 1545 (Given - Provider: Rai Joiner RCP) * 2103 (Given - Provider: Rosanne Jarvis RCP) * 0700 (Not Given - Provider: Opal Sanchez RCP - Reason: Other) * 1106 (Given - Provider: Opal Sanchez RCP) * 1602 (Given - Provider: Opal Sanchez RCP) lidocaine (SALONPAS) 4 % 1 patch 1 patch, transdermal, Administer over 12 Hours, Daily, First dose on Mon04/16/25 at 0900, Apply to intact skin on affected area. Patch(es) may remain in place for up to 12 hours in any 24-hour period. Remove previous patch, if present, before applying new. * 0856 (Medication Applied - Provider: Abhay Richey RN) * 2055 (Medication Removed - Provider: Tanya Beckwith, JERONIMO) * 0846 (Medication Applied - Provider: Greg Tariq - Comment: left ribs) * 2045 (Medication Removed - Provider: Timothy Sheppard, RN) * 0747 (Medication Applied - Provider: Myrtle Major RN) * 1946 (Due: Medication Removed - Provider: Myrtle Major RN) LORazepam (ATIVAN) injection 0.5 mg (COMPLETED) 0.5 mg, intravenous, Once, On Mon04/22/25 at 0315, For 1 dose, Look-alike/sound-alike medication - verify indication for use;IV use requires increased monitoring of HR,BP,Respirations and Pulse Oximetry;For IV-dilute with equal volume PF sod chloride * 0313 (Given - Provider: Kamlesh Phillip RN) metoprolol succinate XL (TOPROL XL) 24 hr tablet 100 mg 100 mg, oral, Daily, First dose on Mon04/21/25 at 1600, Look-alike/sound-alike medication - verify indication for use. Do not crush or chew. * 1538 (Given - Provider: Abhay Richey RN) * 1610 (Given - Provider: Myrtle Major RN) * 1546 (Given - Provider: Myrtle Major RN) piperacillin-tazobactam (ZOSYN) 3.375 g in sodium chloride 0.9 % 50 mL IVPB W/ADAPTER(Linked Group 3) 3.375 g, intravenous, at 12.5 mL/hr, Administer over 4 Hours, Every 8 hours, First dose on Mon04/19/25 at 1400, For 7 days, Dose adjusted per [facility] approved piperacillin-tazobactam policy. First dose of 3.375 gram to be 4 hours after 4.5 gram dose if frequency is every 8 hours or 8 hours after 4.5 gram dose if frequency is every 12 hours. For Vial-2-Bag: Attach bag and vial to adapter - Use immediately after activating; dissolve drug prior to administration., Indication: Aspiration pneumonia * 0001 (Paused - Provider: Abhay Richey RN) * 0001 (Restarted - Provider: Abhay Richey RN) * 0153 (Stop Bag - Provider: Abhay Richey RN) * 0153 (Stop Bag - Provider: Abhay Richey RN) * 0237 (Stop Bag - Provider: Tanya Beckwith RN - Comment: pt agitated and started ripping off all lines/leads) * 0337 (Canceled Entry - Provider: Tanya Beckwith RN) * 0846 (New Bag - Provider: Abhay Richey RN) * 1246 (Stop Bag - Provider: Abhay Richey RN) * 1258 (Rate/Dose Verify - Provider: Abhay Richey RN) * 1322 (Rate/Dose Verify - Provider: Abhay Richey RN) * 1542 (New Bag - Provider: Abhay Richey RN) * 1942 (Stop Bag - Provider: Tanya Beckwith RN) * 0033 (New Bag - Provider: Tanya Beckwith RN) * 0433 (Stop Bag - Provider: Tanya Beckwith RN) * 0843 (New Bag - Provider: Greg Tariq) * 1243 (Stop Bag - Provider: Myrtle Major RN) * 1612 (New Bag - Provider: Myrtle Major RN) * 2012 (Stop Bag - Provider: Timothy Sheppard RN) * 2356 (New Bag - Provider: Timothy Sheppard RN) * 0356 (Stop Bag - Provider: Timothy Sheppard RN) * 0755 (New Bag - Provider: Myrtle Major RN) * 1155 (Stop Bag - Provider: Myrtle Major RN) * 1600 (Canceled Entry - Provider: Myrtle Major RN - Comment: pt discharged) QUEtiapine (SEROquel) tablet 75 mg(Linked Group 4) 75 mg, oral, Nightly, First dose (after last modification) on Mon04/22/25 at 2200, Look-alike/sound-alike medication - verify indication for use. * 2133 (Given - Provider: Tanya Beckwith RN) * 2022 (Given - Provider: Timothy Sheppard RN) sacubitriL-valsartan (ENTRESTO) 97-103 mg per tablet 1 tablet 1 tablet, oral, 2 times daily, First dose on Mon04/15/25 at 2230, Look-alike/sound-alike medication- verify indication for use. * 0857 (Given - Provider: Abhay Richey RN) * 2133 (Given - Provider: Tanya Beckwith RN) * 0846 (Given - Provider: Greg Tariq) * 2023 (Given - Provider: Timothy Sheppard, RN) * 0747 (Given - Provider: Myrtle Major, RN) sennosides-docusate sodium (SENOKOT-S) 8.6-50 mg 2 tablet 2 tablet, oral, Nightly, First dose on Mon04/14/25 at 2200, Administer when tolerating diet. Hold medication for diarrhea. * 2132 (Given - Provider: Tanya Beckwith RN) * 2023 (Given - Provider: Timothy Sheppard, RN) sertraline (ZOLOFT) tablet 100 mg 100 mg, oral, Daily, First dose on Mon04/16/25 at 0900, Look-alike/sound-alike medication - verify indication for use. * 0856 (Given - Provider: Abhay Richey RN) * 0846 (Given - Provider: Greg Tariq) * 0747 (Given - Provider: Myrtle Major RN) sodium chloride 0.9 % flush 3 mL 3 mL, intravenous, Every 12 hours scheduled, First dose on Mon04/14/25 at 0900 * 0858 (Given - Provider: Abhay Richey RN) * 2132 (Given - Provider: Tanya Beckwith RN) * 0849 (Given - Provider: Greg Tariq) * 2024 (Given - Provider: Timothy Sheppard, RN) * 0736 (Given - Provider: Myrtle Major, JERONIMO) spironolactone (ALDACTONE) tablet 25 mg 25 mg, oral, Daily, First dose on Mon04/21/25 at 0915 * 0856 (Given - Provider: Abhay Richey RN) * 0846 (Given - Provider: Greg Tariq) * 0747 (Given - Provider: Myrtle Major RN) traZODone (DESYREL) tablet 50 mg 50 mg, oral, Nightly, First dose on Mon04/17/25 at 2000, Look-alike/sound-alike medication - verifyindication for use. * 2131 (Given - Provider: Tanya Beckwith RN) * 2021 (Given - Provider: Timothy Sheppard RN) umeclidinium (INCRUSE ELLIPTA) 62.5 mcg/actuation inhaler 1 puff(Linked Group 2) 1 puff, inhalation, Daily, First dose on Mon04/14/25 at 0900, Administer umeclidinium (INCRUSE ELLIPTA) 62.5 mcg/dose inhaler in addition to fluticasone furoate-vilanterol (BREO ELLIPTA) 200-25 mcg/dose inhaler as a replacement for puziehtczzq-pmgrmdlacnmw-meznhklddc (TRELEGY ELLIPTA) inhaler 200-62.5-25 mcg/dose. Do not shake inhaler. * 0858 (Given - Provider: Abhay Richey RN) * 0847 (Given - Provider: Greg Tariq) * 0747 (Given - Provider: Myrtle Major RN) Medication Order04/22//// calcium gluconate 3,000 mg in sodium chloride 0.9 % 100 mL IVPB(Linked Group 5) 3,000 mg, intravenous, at 130 mL/hr, Administer over 60 Minutes, As needed, for ionized calcium level less than 3 mg/dL, Starting on Mon04/14/25 at 0521, CALL PHYSICIAN if this dose is administered. Recheck ionized calcium 6 hours after infusion. Hold calcium replacement for phosphorus greater than5.5 mg/dL. VESICANT (RED) calcium gluconate IVPB 1000 mg/50 mL (20 mg/mL premix)(Linked Group 5) 1,000 mg, intravenous, at 50 mL/hr, Administer over 60 Minutes, As needed, for ionized calcium level 3.5 to 4.4 mg/dL, Starting on Mon04/14/25 at 0521, Recheck ionized calcium 6 hours after infusion.Hold calcium replacement for phosphorus greater than 5.5 mg/dL. VESICANT (RED) calcium gluconate IVPB 2000 mg/100 mL (20 mg/mL premix)(Linked Group 5) 2,000 mg, intravenous, at 100 mL/hr, Administer over 60 Minutes, As needed, for ionized calcium level 3 to 3.4 mg/dL, Starting on Mon04/14/25 at 0521, Recheck ionized calcium 6 hours after infusion. Hold calcium replacement for phosphorus greater than 5.5 mg/dL. VESICANT (RED) dextrose (GLUTOSE) 40 % gel 15 g 15 g, oral, As needed, low blood sugar, blood glucose less than 70 mg/dL, Starting on Mon04/14/25 at 0521, If patient conscious and taking PO. If blood glucose is not greater than 70 mg/dL after initial treatment, repeat treatment. dextrose 50 % in water (D50W) 50% solution 25 mL 25 mL, intravenous, As needed, low blood sugar, blood glucose less than 70 mg/dL and unconscious orNPO with IV access, Starting on Mon04/14/25 at 0521, Push over 1-3 minutes STAT. If conscious and not NPO, immediately follow with meal tray or high protein (7 grams) snack if tray not available. If NPO, initiate 5% dextrose in water at 100 mL/hr and contact prescriber for additional orders. If blood glucose is not greater than 70 mg/dL after initial treatment, repeat treatment. VESICANT (RED) Warning: HYPERTONIC solution. glucagon HCL injection 1 mg 1 mg, intramuscular, As needed, low blood sugar, blood glucose less than 70 mg/dL and unconscious or NPO without IV access., Starting on Mon04/14/25 at 0521, If conscious and not NPO, immediately follow with meal tray or high protein (7Grams) snack if tray not available. If NPO, initiate IV 5% Dextr ose/Water at 100 mL/hr and contact prescriber for additional orders. If blood glucose is not greater than 70 mg/dL after initial treatment, repeat treatment. HYDROmorphone (DILAUDID) injection 0.5 mg 0.5 mg, intravenous, Every 2 hour PRN, breakthrough pain, Starting on Mon04/14/25 at 0521, If IV push, administer over over 2 to 3 minutes. Look-alike/sound-alike medication - verify indication for use. magnesium sulfate IVPB 2000 mg/50 mL in iso-osmotic water (40 mg/mL premix) (Linked Group 6) 2,000 mg, intravenous, at 25 mL/hr, Administer over 120 Minutes, As needed, for magnesium level 1.7to 1.9 mg/dL or ionized magnesium level 0.45 to 0.5 mmol/L, Starting on Mon04/14/25 at 0521, Use premix solution. Default to ionized magnesium level in cases where patient has both magnesium and ionized magnesium results. If administered, check ionized magnesium (or total magnesium if ionized magnesium unavailable) level 4 hours after infusion. magnesium sulfate IVPB 4000 mg/100 mL in iso-osmotic water (40 mg/mL premix) (Linked Group 6) 4,000 mg, intravenous, at 25 mL/hr, Administer over 240 Minutes, As needed, for magnesium level 1.6mg/mL or less, or ionized magnesium level 0.44 mmol/L or less, Starting on Mon04/14/25 at 0521, Usepremix solution. Default to ionized magnesium level in cases where patient has both magnesium and ionized magnesium results. If administered, check ionized magnesium (or total magnesium if ionized magnesium unavailable) level 4 hours after infusion. ondansetron (PF) (ZOFRAN) injection 4 mg 4 mg, intravenous, Every 6 hours PRN, nausea, Starting on Mon04/14/25 at 0521, Intravenous administration preferred to be given over 2-5 minutes. oxyCODONE (ROXICODONE) immediate release tablet 10 mg(Linked Group 7) 10 mg, oral, Every 4 hours PRN, severe pain - pain scale 7-10, Starting on Mon04/14/25 at 0520, Theoral route is preferred for patients tolerating oral intake without nausea and vomiting. IV pain medications should be used if the oral route is ineffective for symptom control or if patient unable to take medications orally. Look-alike/sound-alike medication - verify indication for use. Immediate release. * 0147 (Given - Provider: Tanya Beckwith RN) * 2134 (Given - Provider: Tanya Beckwith RN) * 0907 (Given - Provider: Myrtle Major RN) * 1802 (Given - Provider: Myrtle Major RN) * 0748 (See Alternative - Provider: Myrtle Major RN) * 1548 (Given - Provider: Myrtle Major RN) oxyCODONE (ROXICODONE) immediate release tablet 5 mg(Linked Group 7) 5 mg, oral, Every 4 hours PRN, moderate pain - pain scale 4-6, Starting on Mon04/14/25 at 0520, Theoral route is preferred for patients tolerating oral intake without nausea and vomiting. IV pain medications should be used if the oral route is ineffective for symptom control or if patient unable to take medications orally. Look-alike/sound-alike medication - verify indication for use. Immediate release. * 0147 (See Alternative - Provider: Tanya Beckwith RN) * 2134 (See Alternative - Provider: Tanya Beckwith RN) * 0907 (See Alternative - Provider: Myrtle Major RN) * 1802 (See Alternative - Provider: Myrtle Major RN) * 0748 (Given - Provider: Myrtle Major RN) * 1548 (See Alternative - Provider: Myrtle Major RN) polyethylene glycol (GLYCOLAX) packet 17 g 17 g, oral, Daily PRN, constipation, Starting on Mon04/14/25 at 0521, Look-alike/sound-alike medication - verify indication for use. Dissolve 1 packet (17 gm) in 8 ounces of water, juice, soda, coffee or tea. potassium chloride (K-TAB,KLOR-CON) CR tablet 20-40 mEq(Linked Group 8) 20-40 mEq, oral, As needed, for potassium replacement, Starting on Mon04/14/25 at 0521, Progress tooral potassium replacement when patient tolerating oral intake. If dose administered, recheck potassium level 4 hours after last dose. For potassium level 3.4 to 3.8 mmol/L and Serum Creatinine 1.2 or less=30 mEq. For potassium level 3.1 to 3.3 mmol/L and Serum Creatinine 1.2 or less=40 mEq. For potassium level 3 mmol/L or less and Serum Creatinine 1.2 or less=50 mEq. Forpotassium level 3.4 to 3.8 mmol/L and Serum Creatinine greater than 1.2=20 mEq. For potassium level 3.1 to 3.3 mmol/L and Serum Creatinine greater than 1.2=30 mEq. For potassium level 3 mmol/L or less and Serum Creatinine greater than 1.2=40 mEq. Do not crush or chew. * 0859 (Given - Provider: Abhay Richey RN) * 1538 (Given - Provider: Abhay Richey RN) * 0557 (Given - Provider: Tanya Beckwith RN - Comment: k 3.7) * 0902 (Canceled Entry - Provider: Myrtle Major RN) * 0749 (Given - Provider: Myrtle Major RN) potassium chloride (KAYCIEL) 20 mEq/15 mL solution 20-40 mEq(Linked Group 8) 20-40 mEq, oral, As needed, potassium replacement, Starting on Mon04/14/25 at 0521, Progress to oral potassium replacement when patient tolerating oral intake. If dose administered, recheck potassiumlevel 4 hours after last dose. For potassium level 3.4 to 3.8 mmol/L and Serum Creatinine 1.2 or less=30 mEq (22.5mL). For potassium level 3.1 to 3.3 mmol/L and Serum Creatinine 1.2 or less=40 mEq (30mL). For potassium level 3 mmol/L or less and Serum Creatinine 1.2 or less=50 mEq (37.5mL). For potassium level 3.4 to 3.8 mmol/L and Serum Creatinine greater than 1.2=20 mEq (15mL). For potassium level 3.1 to 3.3 mmol/L and Serum Creatinine greater than 1.2=30 mEq (22.5mL). For potassium level 3 mm ol/L or less and Serum Creatinine greater than 1.2=40 mEq (30mL). Must dilute before use - Mix in 3-8 ounces of water or juice before administration When administering in feeding tube, flush before and after per policy and monitor potassium levels * 0859 (See Alternative - Provider: Abhay Richey RN) * 1538 (See Alternative - Provider: Abhay Richey RN) * 0557 (See Alternative - Provider: Tanya Beckwith RN) * 0902 (See Alternative - Provider: Myrtle Major RN) * 0749 (See Alternative - Provider: Myrtle Major RN) potassium chloride IVPB 10 mEq/100 mL in water (0.1 mEq/mL premix)(Linked Group 9) 10 mEq, intravenous, at 100 mL/hr, Administer over 60 Minutes, As needed, for potassium replacement, Starting on Mon04/14/25 at 0521, Administer Potassium Chloride IVPB in 10 mEq increments. Maximum infusion rates: Central Line = 20 mEq/hour; Peripheral Line = 10 mEq/hour (10 mEq/100 mL). If dose administered, recheck potassium level 1 hour after infusion complete. For potassium level 3.4 to 3.8 mmol/L and Serum Creatinine 1.2 or less = 30 mEq For potassium level 3.1 to 3.3 mmol/L and Serum Creatinine 1.2 or less = 40 mEq For potassium level 3 mmol/L or less and Serum Creatinine 1.2 or less =50 mEq For potassium level 3.4 to 3.8 mmol/L and Serum Creatinine greater than 1.2 = 20 mEq For potassium level 3.1 to 3.3 mmol/L and Serum Creatinine greater than 1.2 = 30 mEq For potassium level 3 mmol/L or less and Serum Creatinine greater than 1.2 = 40 mEq VESICANT (YELLOW) Infuse each 10 mEq over a minimum of 1 hour. potassium chloride IVPB 10 mEq/50 mL in water (0.2 mEq/mL premix)(Linked Group 9) 10 mEq, intravenous, at 50 mL/hr, Administer over 1 Hours, As needed, for potassium replacement, Starting on Mon04/14/25 at 0521, Administer Potassium Chloride IVPB in 10 mEq increments. Maximum infusion rates: Central Line = 20 mEq/hour. Administer via Central Line Only. If dose administered, recheck potassium level 1 hour after infusion complete. For potassium level 3.4 to 3.8 mmol/L and Serum Creatinine 1.2 or less = 30 mEq For potassium level 3.1 to 3.3 mmol/L and Serum Creatinine 1.2 or less = 40 mEq For potassium level 3 mmol/L or less and Serum Creatinine 1.2 or less = 50 mEq For potassium level 3.4 to 3.8 mmol/L and Serum Creatinine greater than 1.2 = 20 mEq For potassium level 3.1 to 3.3 mmol/L and Serum Creatinine greater than 1.2 = 30 mEq For potassium level 3 mmol/L or less and Serum Creatinine greater than 1.2 = 40 mEq VESICANT (YELLOW) sod phos di, mono-K phos mono (K-PHOS NEUTRAL) 250 mg tablet 2 tablet(Linked Group 10) 2 tablet, oral, As needed, for phosphorous level 2.3 mg/dL or less, Starting on Mon04/14/25 at 0521, If dose administered, recheck phosphorus level 4 hours after last dose. Look-alike/sound-alike medication - verify indication for use. Give with a full glass of water. sodium chloride 0.9 % flush 3 mL 3 mL, intravenous, As needed, line care, before and after each intermittent use, Starting on Mon04/14/25 at 0521 sodium phosphate 20 mmol in sodium chloride 0.9 % 100 mL IVPB(Linked Group 10) 20 mmol, intravenous, at 26.7 mL/hr, Administer over 4 Hours, As needed, for phosphorous level 2.3 mg/dL or less, Starting on Mon04/14/25 at 0521, Administer over 4 hours via dedicated line(central line). If administered, recheck phosphorus level 4 hours after infusion complete. Infuse using central line access. sodium phosphate 20 mmol in sodium chloride 0.9 % 250 mL IVPB(Linked Group 10) 20 mmol, intravenous, at 42.8 mL/hr, Administer over 6 Hours, As needed, for phosphorous level 2.3 mg/dL or less, Starting on Mon04/14/25 at 0521, Administer over 6 hours via dedicated line (peripheral line). If administered, recheck phosphorus level 4 hours after infusion complete. Order Group 1: acetaminophen (TYLENOL EXTRA STRENGTH) tablet 1,000 mgJump to med 1,000 mg, oral, Every 6 hours, First dose on Mon04/14/25 at 0600 Or acetaminophen (TYLENOL) 650 mg/20.3 mL solution 1,000 mgJump to med 1,000 mg, nasogastric, Every 6 hours, First dose on Mon04/14/25 at 0600, administer via nasogastricroute if unable to tolerate oral medications Group 2: fluticasone furoate-vilanteroL (BREO ELLIPTA) 200-25 mcg/dose inhaler 1 puffJump to med 1 puff, inhalation, Daily, First dose on Mon04/14/25 at 0900, Administer fluticasone furoate-vilanterol (BREO ELLIPTA) 200-25 mcg/dose inhaler in addition to umeclidinium (INCRUSE ELLIPTA) 62.5 mcg/dose inhaler as a replacement for vcnwdwixxox-rhujrvnvzjrv-gdowcvgndf (TRELEGY ELLIPTA) inhaler 200-62.5-25 mcg/dose. And umeclidinium (INCRUSE ELLIPTA) 62.5 mcg/actuation inhaler 1 puffJump to med 1 puff, inhalation, Daily, First dose on Mon04/14/25 at 0900, Administer umeclidinium (INCRUSE ELLIPTA) 62.5 mcg/dose inhaler in addition to fluticasone furoate-vilanterol (BREO ELLIPTA) 200-25 mcg/dose inhaler as a replacement for ybflechigle-dhttckngqxoc-xzrvzmghsl (TRELEGY ELLIPTA) inhaler 200-62.5-25 mcg/dose. Do not shake inhaler. Group 3: piperacillin-tazobactam (ZOSYN) 4.5 g in sodium chloride 0.9 % 50 mL IVPB W/ADAPTER (COMPLETED) 4.5 g, intravenous, at 100 mL/hr, Administer over 30 Minutes, Once, On 04/19/25 at 1000, For 1 dose, Loading dose per [facility] approved piperacillin- tazobactam policy. First dose of 3.375 gram to be 4 hours after 4.5 gram dose if frequency is every 8 hours or 8 hours after 4.5 gram dose if frequency is every 12 hours. For Vial-2-Bag: Attach bag and vial to adapter - Use immediately after activating; dissolve drug prior to administration., Indication: Aspiration pneumonia Followed by piperacillin-tazobactam (ZOSYN) 3.375 g in sodium chloride 0.9 % 50 mL IVPB W/ADAPTERJump to med 3.375 g, intravenous, at 12.5 mL/hr, Administer over 4 Hours, Every 8 hours, First dose on 04/19/25 at 1400, For 7 days, Dose adjusted per [facility] approved piperacillin-tazobactam policy. First dose of 3.375 gram to be 4 hours after 4.5 gram dose if frequency is every 8 hours or 8 hours after 4.5 gram dose if frequency is every 12 hours. For Vial-2-Bag: Attach bag and vial to adapter - Use immediately after activating; dissolve drug prior to administration., Indication: Aspiration pneumonia Group 4: QUEtiapine (SEROquel) tablet 75 mgJump to med 75 mg, oral, Nightly, First dose (after last modification) on Mon04/22/25 at 2200, Look-alike/sound-alike medication - verify indication for use. Group 5: calcium gluconate IVPB 1000 mg/50 mL (20 mg/mL premix)Jump to med 1,000 mg, intravenous, at 50 mL/hr, Administer over 60 Minutes, As needed, for ionized calcium level 3.5 to 4.4 mg/dL, Starting on Mon04/14/25 at 0521, Recheck ionized calcium 6 hours after infusion.Hold calcium replacement for phosphorus greater than 5.5 mg/dL. VESICANT (RED) Or calcium gluconate IVPB 2000 mg/100 mL (20 mg/mL premix)Jump to med 2,000 mg, intravenous, at 100 mL/hr, Administer over 60 Minutes, As needed, for ionized calcium level 3 to 3.4 mg/dL, Starting on Mon04/14/25 at 0521, Recheck ionized calcium 6 hours after infusion. Hold calcium replacement for phosphorus greater than 5.5 mg/dL. VESICANT (RED) Or calcium gluconate 3,000 mg in sodium chloride 0.9 % 100 mL IVPBJump to med 3,000 mg, intravenous, at 130 mL/hr, Administer over 60 Minutes, As needed, for ionized calcium level less than 3 mg/dL, Starting on Mon04/14/25 at 0521, CALL PHYSICIAN if this dose is administered. Recheck ionized calcium 6 hours after infusion. Hold calcium replacement for phosphorus greater than5.5 mg/dL. VESICANT (RED) Group 6: magnesium sulfate IVPB 2000 mg/50 mL in iso-osmotic water (40 mg/mL premix)Jump to med 2,000 mg, intravenous, at 25 mL/hr, Administer over 120 Minutes, As needed, for magnesium level 1.7to 1.9 mg/dL or ionized magnesium level 0.45 to 0.5 mmol/L, Starting on Mon04/14/25 at 0521, Use premix solution. Default to ionized magnesium level in cases where patient has both magnesium and ionized magnesium results. If administered, check ionized magnesium (or total magnesium if ionized magnesium unavailable) level 4 hours after infusion. Or magnesium sulfate IVPB 4000 mg/100 mL in iso-osmotic water (40 mg/mL premix)Jump to med 4,000 mg, intravenous, at 25 mL/hr, Administer over 240 Minutes, As needed, for magnesium level 1.6mg/mL or less, or ionized magnesium level 0.44 mmol/L or less, Starting on Mon04/14/25 at 0521, Usepremix solution. Default to ionized magnesium level in cases where patient has both magnesium and ionized magnesium results. If administered, check ionized magnesium (or total magnesium if ionized magnesium unavailable) level 4 hours after infusion. Group 7: oxyCODONE (ROXICODONE) immediate release tablet 5 mgJump to med 5 mg, oral, Every 4 hours PRN, moderate pain - pain scale 4-6, Starting on Mon04/14/25 at 0520, Theoral route is preferred for patients tolerating oral intake without nausea and vomiting. IV pain medications should be used if the oral route is ineffective for symptom control or if patient unable to take medications orally. Look-alike/sound-alike medication - verify indication for use. Immediate release. Or oxyCODONE (ROXICODONE) immediate release tablet 10 mgJump to med 10 mg, oral, Every 4 hours PRN, severe pain - pain scale 7-10, Starting on Mon04/14/25 at 0520, Theoral route is preferred for patients tolerating oral intake without nausea and vomiting. IV pain medications should be used if the oral route is ineffective for symptom control or if patient unable to take medications orally. Look-alike/sound-alike medication - verify indication for use. Immediate release. Group 8: potassium chloride (K-TAB,KLOR-CON) CR tablet 20-40 mEqJump to med 20-40 mEq, oral, As needed, for potassium replacement, Starting on Mon04/14/25 at 0521, Progress tooral potassium replacement when patient tolerating oral intake. If dose administered, recheck potassium level 4 hours after last dose. For potassium level 3.4 to 3.8 mmol/L and Serum Creatinine 1.2 or less=30 mEq. For potassium level 3.1 to 3.3 mmol/L and Serum Creatinine 1.2 or less=40 mEq. For potassium level 3 mmol/L or less and Serum Creatinine 1.2 or less=50 mEq. Forpotassium level 3.4 to 3.8 mmol/L and Serum Creatinine greater than 1.2=20 mEq. For potassium level 3.1 to 3.3 mmol/L and Serum Creatinine greater than 1.2=30 mEq. For potassium level 3 mmol/L or less and Serum Creatinine greater than 1.2=40 mEq. Do not crush or chew. Or potassium chloride (KAYCIEL) 20 mEq/15 mL solution 20-40 mEqJump to med 20-40 mEq, oral, As needed, potassium replacement, Starting on Mon04/14/25 at 0521, Progress to oral potassium replacement when patient tolerating oral intake. If dose administered, recheck potassiumlevel 4 hours after last dose. For potassium level 3.4 to 3.8 mmol/L and Serum Creatinine 1.2 or less=30 mEq (22.5mL). For potassium level 3.1 to 3.3 mmol/L and Serum Creatinine 1.2 or less=40 mEq (30mL). For potassium level 3 mmol/L or less and Serum Creatinine 1.2 or less=50 mEq (37.5mL). For potassium level 3.4 to 3.8 mmol/L and Serum Creatinine greater than 1.2=20 mEq (15mL). For potassium level 3.1 to 3.3 mmol/L and Serum Creatinine greater than 1.2=30 mEq (22.5mL). For potassium level 3 mm ol/L or less and Serum Creatinine greater than 1.2=40 mEq (30mL). Must dilute before use - Mix in 3-8 ounces of water or juice before administration When administering in feeding tube, flush before and after per policy and monitor potassium levels Group 9: potassium chloride IVPB 10 mEq/50 mL in water (0.2 mEq/mL premix)Jump to med 10 mEq, intravenous, at 50 mL/hr, Administer over 1 Hours, As needed, for potassium replacement, Starting on Mon04/14/25 at 0521, Administer Potassium Chloride IVPB in 10 mEq increments. Maximum infusion rates: Central Line = 20 mEq/hour. Administer via Central Line Only. If dose administered, recheck potassium level 1 hour after infusion complete. For potassium level 3.4 to 3.8 mmol/L and Serum Creatinine 1.2 or less = 30 mEq For potassium level 3.1 to 3.3 mmol/L and Serum Creatinine 1.2 or less = 40 mEq For potassium level 3 mmol/L or less and Serum Creatinine 1.2 or less = 50 mEq For potassium level 3.4 to 3.8 mmol/L and Serum Creatinine greater than 1.2 = 20 mEq For potassium level 3.1 to 3.3 mmol/L and Serum Creatinine greater than 1.2 = 30 mEq For potassium level 3 mmol/L or less and Serum Creatinine greater than 1.2 = 40 mEq VESICANT (YELLOW) Or potassium chloride IVPB 10 mEq/100 mL in water (0.1 mEq/mL premix)Jump to med 10 mEq, intravenous, at 100 mL/hr, Administer over 60 Minutes, As needed, for potassium replacement, Starting on Mon04/14/25 at 0521, Administer Potassium Chloride IVPB in 10 mEq increments. Maximum infusion rates: Central Line = 20 mEq/hour; Peripheral Line = 10 mEq/hour (10 mEq/100 mL). If dose administered, recheck potassium level 1 hour after infusion complete. For potassium level 3.4 to 3.8 mmol/L and Serum Creatinine 1.2 or less = 30 mEq For potassium level 3.1 to 3.3 mmol/L and Serum Creatinine 1.2 or less = 40 mEq For potassium level 3 mmol/L or less and Serum Creatinine 1.2 or less =50 mEq For potassium level 3.4 to 3.8 mmol/L and Serum Creatinine greater than 1.2 = 20 mEq For potassium level 3.1 to 3.3 mmol/L and Serum Creatinine greater than 1.2 = 30 mEq For potassium level 3 mmol/L or less and Serum Creatinine greater than 1.2 = 40 mEq VESICANT (YELLOW) Infuse each 10 mEq over a minimum of 1 hour. Group 10: sodium phosphate 20 mmol in sodium chloride 0.9 % 250 mL IVPBJump to med 20 mmol, intravenous, at 42.8 mL/hr, Administer over 6 Hours, As needed, for phosphorous level 2.3 mg/dL or less, Starting on Mon04/14/25 at 0521, Administer over 6 hours via dedicated line (peripheral line). If administered, recheck phosphorus level 4 hours after infusion complete. Or sodium phosphate 20 mmol in sodium chloride 0.9 % 100 mL IVPBJump to med 20 mmol, intravenous, at 26.7 mL/hr, Administer over 4 Hours, As needed, for phosphorous level 2.3 mg/dL or less, Starting on Mon04/14/25 at 0521, Administer over 4 hours via dedicated line(central line). If administered, recheck phosphorus level 4 hours after infusion complete. Infuse using central line access. Or sod phos di, mono-K phos mono (K-PHOS NEUTRAL) 250 mg tablet 2 tabletJump to med 2 tablet, oral, As needed, for phosphorous level 2.3 mg/dL or less, Starting on Mon04/14/25 at 0521, If dose administered, recheck phosphorus level 4 hours after last dose. Look-alike/sound-alike medication - verify indication for use. Give with a full glass of water. FOR RECORDS PERTAINING TO PATIENTS WHO ARE [...] BE BASED ON THE PRIMARY CLINICAL RECORDS. [employer] provides no warranty or guarantee of the accuracy or completeness of information in this document.
== END 2025-07-30 12:49 | disposition home or self-care (01) ==
PROVIDERS: PCP Nurse Practitioner; Visit Provider Nurse Practitioner
DX: R39.9 Unspecified symptoms and signs involving the genitourinary system (principal); R33.9 Retention of urine, unspecified
CPT/HCPCS: 36415; 74018; 80048; 81001; 84153; 87086